=== PATIENT | female | born 1955 | race Caucasian/White ===

== ENCOUNTER 2017-01-16 11:11 | Inpatient (IN) | payer MEDICAID, OTHER ==
[2017-01-16] VITALS (8 sets, daily range): BP systolic 105–129; BP diastolic 55–98; PULSE 63–90; RESP 10–22; Ht 154.9 cm; Wt 62.6 kg
[~2017-01-16] VITALS: Ht 154.9 cm; Wt 62.6 kg
[~2017-01-16 11:11] MED LIST: METO-448; METO100T PO; NALOXONE (0.4 MG/ML) INJ ONE; PENI-36; PENI250S PO; WARF1TAB47; WARF2.5T PO; WARF5TAB72 PO
[2017-01-16] MEDS ORDERED: SOD CHLORIDE 0.9% 1,000 ML IV ONE ×2 (11:30→12:00)
[2017-01-16 11:38] LABS: ADD SCAN DIFF NO
--- NOTE | 2017-01-16 11:41 | RADRPT ---
PROCEDURE: XR Chest. CLINICAL INDICATION: Cardiac arrest. Sepsis. TECHNIQUE: Single frontal view. COMPARISON: None. FINDINGS: The lungs are clear. The heart is enlarged. There is no pleural effusion. There is no pneumothorax. IMPRESSION: 1. Cardiomegaly. 2. Clear lungs. RPTAT: QQ .Catrachito Small MD, MD Date Time Electronically viewed and signed by .Catrachito Small MD, MD on 01/16/2017 11:41 .R/
[2017-01-16 11:45] LABS: ADD UMIC NO; UR BILIRUBIN (Dip) NEGATIVE (NEGATIVE); UR BLOOD (Dip) NEGATIVE (NEGATIVE); UR CLARITY CLEAR (CLEAR); UR COLOR LT. YELLOW (YELLOW); UR GLUCOSE (Dip) NEGATIVE (NEGATIVE); UR KETONES (Dip) NEGATIVE (NEGATIVE); UR LEUKOCYTE ESTERASE (Dip) NEGATIVE (NEGATIVE); UR NITRITE (Dip) NEGATIVE (NEGATIVE); UR TOTAL PROTEIN (Dip) NEGATIVE (NEGATIVE); UR UROBILINOGEN (Dip) 0.2 E.U./dL (0.1-1.0)
[2017-01-16 12:05] LABS: INR 1.62; PROTIME 19.4 Sec (12.2-14.2); PT RATIO 1.5
[2017-01-16 12:06] LABS: PARTIAL THROMBOPLASTIN TIME 24.7 Sec (25.0-35.0)
[2017-01-16 12:13] LABS: ALANINE AMINOTRANSFERASE 16 IU/L (13-69); ALBUMIN/GLOBULIN RATIO 1.51; ALKALINE PHOSPHATASE 72 IU/L (42-121); ANION GAP 20 (8-16); ASPARTATE AMINO TRANSFERASE 35 IU/L (15-46); BILIRUBIN,INDIRECT 0.5 mg/dl (0-1.1); BILIRUBIN,TOTAL 0.5 mg/dl (0.2-1.3); BLOOD UREA NITROGEN 17 mg/dl (7-20); CALCIUM 9.9 mg/dl (8.4-10.2); CARBON DIOXIDE 24 mmol/L (21-31); CHLORIDE 106 mmol/L (97-110); CREATININE 0.93 mg/dl (0.44-1.00); GLUCOSE 95 mg/dl (70-220); POTASSIUM 5.1 mmol/L (3.5-5.1); SODIUM 145 mmol/L (135-144); TOTAL PROTEIN 8.3 g/dl (6.1-8.1)
[2017-01-16 12:25] LABS: ACETAMINOPHEN < 10.0 ug/ml (10.0-30.0); SALICYLATE < 1.0 mg/dl (5.0-30.0); TROPONIN-I < 0.012 ng/ml (0.00-0.12)
[2017-01-16 12:27] LABS: ABNORMAL IP MESSAGE 1; BASOPHIL # 0.1 10^3/ul (0.0-0.1); BASOPHILS % 1.3 % (0.0-2.0); EOSINOPHILS # 0.1 10^3/ul (0.0-0.5); EOSINOPHILS % 1.4 % (0.0-7.0); HEMATOCRIT 39.7 % (37.0-47.0); HEMOGLOBIN 12.7 g/dl (12.0-16.0); LYMPHOCYTES # 1.8 10^3/ul (0.8-2.9); LYMPHOCYTES % 28.3 % (15.0-51.0); MEAN CORPUSCULAR HEMOGLOBIN 26.2 pg (29.0-33.0); MEAN PLATELET VOLUME 13.4 fl (7.4-10.4); MONOCYTE # 0.4 10^3/ul (0.3-0.9); MONOCYTES % 6.6 % (0.0-11.0); NEUTROPHIL # 3.9 10^3/ul (1.6-7.5); NEUTROPHILS % 62.2 % (39.0-77.0); PLATELET COUNT 275 10^3/UL (140-415); RED BLOOD COUNT 4.84 10^6/ul (4.20-5.40); RED CELL DISTRIBUTION WIDTH 16.5 % (11.5-14.5); WHITE BLOOD COUNT 6.3 10^3/ul (4.8-10.8)
[2017-01-16 12:30] LABS: BARBITURATES Negative (NEGATIVE); BENZODIAZEPINES Negative (NEGATIVE); CANNABINOIDS Negative (NEGATIVE); COCAINE Negative (NEGATIVE); OPIATES Negative (NEGATIVE)
--- NOTE | 2017-01-16 13:47 | RADRPT ---
PROCEDURE: CT Brain without contrast. CLINICAL INDICATION: Altered mental status. Stroke. TECHNIQUE: A CT of the brain was performed on a multidetector CT scanner utilizing axial imaging f rom the skull base through the vertex without IV contrast. Multiplanar reformatted images were made . Images were reviewed on a PACS workstation. The CTDIvol is are of 45 mGy and the DLP is 630 mGyc m. COMPARISON: None FINDINGS: There is no intracranial hemorrhage, mass effect, or midline shift. No extra-axial fluid collection is seen. The ventricles and sulci are normal in size and configuration. The density of the brain is normal, and the yip white matter differentiation appears well-preserved. The visualized paranasal sinuses and osseous structures are grossly unremarkable. IMPRESSION: 1. No evidence of acute intracranial pathology. 2. The brain is normal in appearance. .Brando Millan MD, Date Time Electronically viewed and signed by .Brando Millan MD, on 01/16/2017 13:47 .A/
[2017-01-16] MEDS ORDERED: ONDANSETRON 4 MG INJ IV STA (14:15)
[2017-01-16] MEDS ORDERED: ACETAMINOPHEN 325 MG TAB PO PRN (15:30)
[2017-01-16] MEDS ORDERED: ONDANSETRON 4 MG INJ IV PRN (15:30)
[2017-01-16 16:19] LABS: Arterial Base Excess -3.7 mmol/L (-3.0-3); Arterial COHb 0.3 % (0.0-3.0); Arterial HCO3 21.2 mmol/L (22.0-26.0); Arterial MetHb 0.3 % (0.0-1.5); Arterial Total Hemglobin 13.4 g/dl (12.0-18.0); MODE NASAL CANNULA
[2017-01-16] MEDS ORDERED: DEXTROSE 50% 50 ML SYRINGE ONE (16:26)
[2017-01-16] MEDS: DEXTROSE 50% 50 ML SYRINGE IV PRN ×2 (16:36→18:58)
[2017-01-16 16:37] LABS: AADO2 Arterial 121.7 mmHg (7.0-24.0); Allen Test ACCEPTAB; Arterial Base Excess -4.1 mmol/L (-3.0-3); Arterial COHb 0.3 % (0.0-3.0); Arterial Fraction of Oxyhgb 97.7 % (93.0-99.0); Arterial HCO3 20.5 mmol/L (22.0-26.0); Arterial MetHb 0.2 % (0.0-1.5); Arterial Total Hemglobin 13.2 g/dl (12.0-18.0); MODE NASAL CANNULA
[2017-01-16] MEDS ORDERED: SOD CHLORIDE 0.9% 110 ML IV ONE (17:00)
[2017-01-16] MEDS ORDERED: NALOXONE (0.4 MG/ML) INJ IV ONE ×2 (17:00)
[2017-01-16] MEDS ORDERED: SOD CHLORIDE 0.9% 250 ML IV ONE (17:00)
[2017-01-16] MEDS ORDERED: LEVETIRACETAM 1000 MG (PMX) 100 ML IVPB ONE (17:00)
--- NOTE | 2017-01-16 17:29 | ERA ---
ER Documentation Chief Complaint Date/Time DATE: 01/16/17 TIME: 17:17 Chief Complaint pt joan from home found unresponsive and aloc in room by family , HPI This 61-year-old female was brought in by paramedics after being found in her bedroom sleeping but unable to awaken earlier today. Family initiated CPR. They said that she was wincing with each chest compression. They are not sure if she had lost pulses or not. Paramedics arrived the patient unresponsive but in atrial fibrillation. This is a chronic condition for this patient and she is on Coumadin. She does not drink much alcohol according to the who is present as well. No drug use. Nothing like this is never happened to her before. Yesterday she was well and normal according to family. paramedics administered Narcan, 2 doses an ambulance with no response per ROS All systems reviewed and are negative except as per history of present illness. Medications Home Meds Reported Medications Warfarin Sodium* (Coumadin*) 5 Mg Tablet, 5 MG PO Q S,T,W,Th,Sat 06/19/11 Warfarin Sodium* (Coumadin*) 2.5 Mg Tablet, 2.5 MG PO Q WEDNESDAY & Wednesday06/19/11 Metoprolol (Lopressor) 100 Mg Tablet, 100 MG PO BID 06/19/11 Penicillin V Potassium* (Penicillin V K*) 50 Mg/Ml Susp, 250 MG PO BID 06/19/11 Penicillin V Potassium* (Penicillin V K*) 250 Mg Tab 06/18/11 Metoprolol Tartrate* (Lopressor*) 25 Mg Tab 06/18/11 Warfarin Sodium* (Coumadin*) 1 Mg Tablet 06/18/11 Allergies Allergies: Coded Allergies: No Known Allergy (Unverified , 06/18/11) PMhx/Soc Medical and Surgical Hx: pt denies Surgical Hx History of Surgery: Yes (dvt surgery LLE, cardiac angiogram) Anesthesia Reaction: No Hx Neurological Disorder: No Hx Respiratory Disorders: No Hx Cardiac Disorders: Yes (HTN, A FIB) Hx Psychiatric Problems: No Hx Miscellaneous Medical Probl: Yes (A-FIB, HTN, DYSARTHRIA, DVT.) Hx Alcohol Use: No Hx Substance Use: No Hx Tobacco Use: No Smoking Status: Never smoker Physical Exam Vitals Vital Signs Date Time Temp Pulse Resp B/P Pulse Ox O2 Delivery O2 Flow Rate FiO2 01/16/17 14:18 75 17 104/65 100 Nasal Cannula 2.0 01/16/17 13:04 69 17 116/72 100 Nasal Cannula 3.0 01/16/17 12:11 66 15 120/68 100 Non Rebreather 01/16/17 11:40 Non Rebreather 15 01/16/17 11:39 67 19 106/51 100 Non Rebreather 15.0 01/16/17 11:19 75 16 109/91 95 Physical Exam Const: [] No distress Head: Atraumatic Eyes: Normal Conjunctiva, pupils unresponsive, positive corneal reflex ENT: Normal External Ears, Nose and Mouth. Oropharynx within normal limits. Mucous membranes moist. Tympanic membranes without blood or clear fluid Neck: No deformities, no JVD Resp: Clear to auscultation bilaterally Cardio: Irregularly irregular, no murmurs Abd: Soft, no apparent tenderness , non distended. Normal bowel sounds Skin: No petechiae or rashes Back: No midline or flank tenderness Ext: No cyanosis, or edema, right foot and lower leg slightly colder than left foot, all extremities have positive palpable pulses. Neur: Positive gag reflex, does respond to pain. Tries to move arms away when staff starts IV, also does have apparent movement of her legs at least at the toe level, is otherwise unresponsive Result Diagram: 01/16/17 1115 01/16/17 1115 Results 24 hrs Laboratory Tests Test 01/16/17 11:14 01/16/17 11:15 01/16/17 13:15 Urine Color LT. YELLOW Urine Clarity CLEAR Urine pH 6.0 Urine Specific [place] <=1.005 Urine Ketones NEGATIVE Urine Nitrite NEGATIVE Urine Bilirubin NEGATIVE Urine Urobilinogen 0.2 E.U./dL Urine Leukocyte Esterase NEGATIVE Urine Hemoglobin NEGATIVE Urine Glucose NEGATIVE% Urine Total Protein NEGATIVE Urine Opiates Screen Negative Urine Barbiturates Negative Urine Amphetamines Screen Negative Urine Benzodiazepines Screen Negative Urine Cocaine Screen Negative Urine Cannabinoids Negative White Blood Count 6.310^3/ul Red Blood Count 4.8410^6/ul Hemoglobin 12.7g/dl Hematocrit 39.7% Mean Corpuscular Volume 82.0fl Mean Corpuscular Hemoglobin 26.2pg Mean Corpuscular Hemoglobin Concent 32.0g/dl Red Cell Distribution Width 16.5% Platelet Count 69385^3/UL Mean Platelet Volume 13.4fl Neutrophils % 62.2% Lymphocytes % 28.3% Monocytes % 6.6% Eosinophils % 1.4% Basophils % 1.3% Nucleated Red Blood Cells % 0.0/100WBC Neutrophils # 3.910^3/ul Lymphocytes # 1.810^3/ul Monocytes # 0.410^3/ul Eosinophils # 0.110^3/ul Basophils # 0.110^3/ul Nucleated Red Blood Cells # 0.010^3/ul Prothrombin Time 19.4Sec Prothrombin Time Ratio 1.5 INR International Normalized Ratio 1.62 Activated Partial Thromboplast Time 24.7Sec Sodium Level 145mmol/L Potassium Level 5.1mmol/L Chloride Level 106mmol/L Carbon Dioxide Level 24mmol/L Anion Gap 20 Blood Urea Nitrogen 17mg/dl Creatinine 0.93mg/dl Glucose Level 95mg/dl Lactic Acid Level 1.2mmol/L 1.5mmol/L Calcium Level 9.9mg/dl Total Bilirubin 0.5mg/dl Direct Bilirubin 0.00mg/dl Indirect Bilirubin 0.5mg/dl Aspartate Amino Transf (AST/SGOT) 35IU/L Alanine Aminotransferase (ALT/SGPT) 16IU/L Alkaline Phosphatase 72IU/L Troponin I < 0.012ng/ml Total Protein 8.3g/dl Albumin 5.0g/dl Globulin 3.30g/dl Albumin/Globulin Ratio 1.51 Thyroid Stimulating Hormone (TSH) 2.150MIU/L Salicylates Level < 1.0mg/dl Acetaminophen Level < 10.0ug/ml Ethyl Alcohol Level < 10.0mg/dl Current Medications Medications (Trade) Dose Ordered Sig/Fabián Route PRN Reason Start Time Stop Time Status Last Admin Dose Admin Sodium Chloride 1,000 ml @ 1,000 mls/hr Q1H ONCE IV 01/16/17 11:30 01/16/17 12:29 DC 01/16/17 11:49 Sodium Chloride (NS) 1,000 ml @ 1,000 mls/hr Q1H ONCE IV 01/16/17 12:00 01/16/17 12:59 DC 01/16/17 12:41 Ondansetron HCl (Zofran Inj) 4 mg ONCE STAT IV 01/16/17 14:15 01/16/17 14:17 DC Procedures/MDM Altered mental status and patient without clear etiology currently. Possible return of spontaneous circulation versus inappropriate CPR performed. Patient has had completely stable vital signs since arrival to ER. She has essentially all normal labs. Somewhat subtherapeutic INR at 1.62. No signs of any intoxicants. Blood gas without any significant acidosis or alkalosis. I chose not to intubate this patient she does have a positive gag reflex and does seem to have increasing function as she is able to move her head side to side when family is talking to her however no purposeful response yet. I would not like to intubate or not be able to gauge her response. I have ordered a arterial ultrasound of her lower extremity noted to see why it might be called. She has no swelling to indicate possible DVT nor with this possibly affect her mental status which is the primary concerning issue here. Going to admit her for continued continued monitoring, neuro checks, neurological consult. Spoke in the family at bedside several times were very concerned for good reason. Aside from her concerning lack of consciousness she seems very stable otherwise. EKG interpretation: Atrial fibrillation with appropriate ventricular response, no ST or T-wave changes concerning for acute ischemia, normal axis. cornice maker interpretation: Rate controlled atrial fibrillation without any other arrhythmia CT brain interpretation: I see no acute process. I see no hemorrhage, no mass- effect or midline shift, no apparent involving ischemic stroke either. Chest x-ray interpretation: I see no acute process. See no infiltrates, no widened mediastinum, no rib fractures, no pulmonary edema. Critical care time 32 minutes: This includes postresuscitative care and patient altered mental status, careful fluid administration, consideration of endotracheal intubation for airway protection, multiple visits patient's bedside to reassess neurological status, chart reviewed, discussion with admitting doctor and family. This does not include any billable procedures Departure Diagnosis: Primary Impression: Altered level of consciousness Additional Impression: Signs of return of spontaneous circulation Condition: Serious MARCIARUTH PICKARD Jan 16, 2017 17:28
[2017-01-16] MEDS ORDERED: DEXTROSE 5%-0.45% NACL 1,000 ML IV SCH (17:30)
[2017-01-16 18:14] LABS: ALBUMIN 4.4 g/dl (3.3-4.9); ALBUMIN/GLOBULIN RATIO 1.62; BILIRUBIN,INDIRECT 0.5 mg/dl (0-1.1); BILIRUBIN,TOTAL 0.5 mg/dl (0.2-1.3); CALCIUM 8.8 mg/dl (8.4-10.2); CREATININE 0.92 mg/dl (0.44-1.00); MAGNESIUM 1.7 mg/dl (1.7-2.5); PHOSPHORUS 3.7 mg/dl (2.5-4.9); POTASSIUM 4.9 mmol/L (3.5-5.1); TOTAL PROTEIN 7.1 g/dl (6.1-8.1)
--- NOTE | 2017-01-16 20:32 | EN ---
Date/Time of Note Date/Time of Note DATE: 01/16/17 TIME: 20:31 Event Note Medicine Medicine Event Note DOSIMETRIST note DOSIMETRIST was called on patient with a history of hypertension, atrial fibrillation, who was found altered at home by family. The patient is completely unresponsive even to deep sternal rub, however symptoms maintaining her respirations with normal ABG and fairly unremarkable labs. She was admitted for further workup for encephalopathy however upon arriving on the telemetry floor, the nurses were concerned due to her unresponsiveness, she was also found to have unreactive even though equal and non-dilated pupils. A quick assessment confirmed the above findings, so I ordered that patient receive 0.4 mg of Narcan. After the first dose, she seemed to start to grimace with pain. Patient's blood glucose levels were 92, so I also ordered she receive 1 amp of D50. Per the family there was no concern for overdose. She had also received a 0.2 mg dose of Narcan by paramedics prior to admission. Because of the good response to Narcan and glucose, I order she received a second dose of narcan and started a D5 drip. There was no further significant response though patient will now have jerk-like reaction to painful stimuli. I ordered repeat labs including a repeat ABG that came back normal. And based on jerk-like behavior I started patient on intravenous Keppra with probability that this could be secondary to seizures. Due to her continued unresponsive status event and now she was having some jerk like reaction and response to painful stimuli inconsistently, I ordered patient be transferred to the intensive care unit. Of note is that she had gotten a brain scan that was unremarkable. She is being planned for an MRI and MRA of the brain, she is also being planned for EEG. I will follow her to the intensive care unit and continue management while there. Also spoke with the primary admitting MD Dr. Valdovinos and further interventions will be per clinical course. Critical care time has been about 35 minutes. JANIE MATTHEW Jan 16, 2017 20:32
--- NOTE | 2017-01-16 20:56 | RADRPT ---
PROCEDURE: Doppler US right lower extremity arteries. CLINICAL INDICATION: Right leg pain. Cold right leg. TECHNIQUE: Multiple longitudinal and transverse images of the right lower extremity arteries were obtained with yip scale, pulsed Doppler and color Doppler imaging. COMPARISON: No prior studies are available for comparison. FINDINGS: Location Right JSZ023 cm/sec PSFA95 cm/sec [id number] cm/sec DSFA84 cm/sec POP55 cm/sec PTA90 cm/sec DPA65 cm/sec There is normal triphasic flow throughout the right lower extremity arterial system. There is no pl aque or stenosis. The right ankle-brachial index is 1.0 IMPRESSION: 1. Normal right lower extremity arterial Doppler. RPTAT: QQ .Catrachito Small MD, MD Date Time Electronically viewed and signed by .Catrachito Small MD, MD on 01/16/2017 20:55 .R/
[2017-01-16] MEDS ORDERED: VANCOMYCIN IV PER PHARMACY XX SCH (21:30)
--- NOTE | 2017-01-16 21:56 | HP ---
Date/Time of Note Date/Time of Note DATE: 01/16/17 TIME: 20:08 Assessment/Plan VTE Prophylaxis VTE Prophylaxis Intervention: other Lines/Catheters IV Catheter Type (from Nrs): Peripheral IV Urinary Cath still in place: Yes Reason Cath still needed: urinary retention Assessment/Plan Assessment/Plan -Altered level of consciousness -ICU monitoring - NPO -IVF -Neuro consult-Dr. Melo notified -Lactic acid within normal -CT head negative -MRI brain results pending to follow-up -Aspiration precautions -EEG to rule out any seizure activity -Rule out infectious encephalopathy -Infectious disease consult, Dr. Waldrop notified -Vanco per pharmacy -Meropenem 500 mg IV every 6 hours -Acyclovir 800 mg IV 3 times daily -Possible seizure activity -Per neurology -Seizure precautions -Aspiration precautions -Signs of return of spontaneous circulation -Right lower extremity-colder than left lower extremity -Pending arterial study to follow-up -- A FIB- CONTROLLED -Cardiology consult Dr. Armenta notified -Hyperglycemia -Change IV fluid to half-normal saline +20 of KCl at 100 cc/h - Hx dvt - sp IVC filter surgery LLE - SP Cardiac cath - Hypertension-stable - Dysarthria Will hold anticoagulants as of now. will wait for neuro - if patient has to go for Lumbar puncture, cardio recommendations for her afib as well. A.m. labs CBC , CMP, TSH, T4 ordered . Staff to notify Dr. Valdovinos for MRI results further treatment plan depends on patient's clinical course. Plan of care discussed with Dr. Valdovinos, staff, family HPI/ROS Admit Date/Time Admit Date/Time Jan 16, 2017 at 15:19 ROS HPI This is a 61-year-old female with past medical history of A. fib, hypertension, CVA 2- ? unknown deficit, left lower extremity DVT 2 months-status post fasciotomy and IVC filter placement, status post cardiac cath-so Coumadin was on hold , possible risk for stroke is admitted with altered mental status today. Patient was found unresponsive after she was sleeping in her bedroom. Her family was unable to awaken her earlier today and family initiated CPR and called 911. Paramedics found the patient unresponsive and she was in atrial fibrillation which is a chronic condition for this patient and she is on Coumadin. Paramedics administered Narcan, 2 doses an ambulance with no response. denies any alcohol or drug use by patient . Also per family, nothing happened like this in past. From the ER patient was admitted to telemetry where upon admission patient was found unresponsive and a rapid response was called, Patient was transferred to ICU. Per hospitalist as- - ABG within normal. - Narcan 2 was given - blood sugar 90 so D50 1 ampule was given. - Keppra for possible seizure activity. - Right lower extremity was found colder than the left one arterial study pending. - D5 and half NS 100 cc/h - Lees catheter inserted, - O2 3 L per nasal cannula setting 98%. - 2D echo, MRA brain, arterial study results pending Patient is admitting him to ICU under Dr. Valdovinos. During assessment patient is unresponsive, but withdrawal to painful active stimuli. Family at the bedside- and 2 sons-all questions answered. Appropriate consults notified ROS All systems reviewed and are negative except as per history of present illness. Allergies No Known Allergy (Unverified , 06/18/11) Subjective hx not possible: pt non-verbal Respiratory: shortness of breath PMH/Family/Social Past Medical History PMhx/Soc Medical and Surgical Hx: pt denies Surgical Hx History of Surgery: Yes (dvt surgery LLE, cardiac angiogram) Anesthesia Reaction: No Hx Neurological Disorder: No Hx Respiratory Disorders: No Hx Cardiac Disorders: Yes (HTN, A FIB) Hx Psychiatric Problems: No Hx Miscellaneous Medical Probl: Yes (A-FIB, HTN, DYSARTHRIA, DVT.) Hx Alcohol Use: No Hx Substance Use: No Hx Tobacco Use: No Smoking Status: Never smoker Social History Smoking Status: Unknown if ever smoked Exam/Review of Systems Vital Signs Vitals Vital Signs Date Time Temp Pulse Resp B/P Pulse Ox O2 Delivery O2 Flow Rate FiO2 01/16/17 17:45 65 10 117/55 100 Nasal Cannula 3.0 01/16/17 16:53 96.7 Exam Constitutional: non-verbal Respiratory: clear to auscultation, normal air movement Cardiovascular: nl pulses, other (Controlled afib) Gastrointestinal: non-tender, soft Musculoskeletal: other (Right lower extremity colder than left lower extremity arterial study pending to follow-up, ) Extremities: other (No cyanosis, or edema, right foot and lower leg slightly colder than left foot, all extremities have positive palpable pulses.pending arterial study) Neurological: other (but respnsive to pain at times.), unresponsive Labs Result Diagram: 01/16/17 1115 01/16/17 1645 Medications Medications Current Medications Dextrose 50 ml 50 ml NOW PRN IV SEIZURES Last administered on 01/16/17 16:36; Admin Dose 50 ML; Start 01/16/17 at 16:30; Stop 01/16/17 at 23:33 Dextrose/Sodium Chloride (D5-1/2ns) 1,000 ml @ 100 mls/hr Q10H IV Last administered on 01/16/17 18:57; Admin Dose 100 MLS/HR; Start 01/16/17 at 17:30 Procedures Procedures -EKG interpretation: Atrial fibrillation with appropriate ventricular response, no ST or T-wave changes concerning for acute ischemia, normal axis. social secretary interpretation: Rate controlled atrial fibrillation without any other arrhythmia -CT brain interpretation: I see no acute process. I see no hemorrhage, no mass- effect or midline shift, no apparent involving ischemic stroke either. -Chest x-ray interpretation: I see no acute process. See no infiltrates, no widened mediastinum, no rib fractures, no pulmonary edema. -PROCEDURE: Doppler US right lower extremity arteries. IMPRESSION: 1. Normal right lower extremity arterial Doppler. ALEXIS NAJERA Jan 16, 2017 20:19
--- NOTE | 2017-01-16 22:16 | RADRPT ---
PROCEDURE: MRI Brain without contrast. CLINICAL INDICATION: Acute loss of consciousness. TECHNIQUE: MRI of the brain was performed with the following sequences obtained: Sagittal, coronal and axial T1-weighted, axial T2-weighted, axial FLAIR, axial diffusion weighted (with ADC map), and coronal GRE. COMPARISON: CT brain and 01/16/2017. MRI brain 06/19/2011 FINDINGS: Restricted diffusion within the medial thalamic nuclei bilaterally is present with associated hyperi ntense FLAIR signal in these locations ( series 6 image 13 - 14). No hemorrhage, mass effect or mas s lesion is present. The extraaxial spaces are clear of collections. The ventricular system and blood lci are normal for the patient's provided age of 61 years. Scattered areas of hyperintense FLAIR sig nal throughout the subcortical and periventricular white matter are nonspecific but likely reflect s equela of small vessel ischemia Restricted diffusion with hyperintense FLAIR signal is seen within the periaqueductal yip matter sl ightly asymmetric to the left. There is no signal alteration within the caroline or cerebellum. The fo urth ventricle is midline and the craniocervical junction lesion is intact. The area of the sella i s normal. The bony calvarium and skull base are intact. The visualized paranasal sinuses and mastoid air cell s are clear. Physiologic flow voids within the internal carotid and vertebral arteries are maintain ed. RPTAT:HJJR IMPRESSION: 1. Restricted diffusion in the medial thalami and periaqueductal yip raise concern for toxic demyel ination, alcoholic encephalopathy, differential diagnostic possibilities including drug toxicity, en cephalitis and hypoglycemia. 2. Few scattered nonspecific white matter foci of the cerebral hemispheres likely the sequela of ch ronic small vessel ischemic disease. Vasculitis and less likely demyelination are considerations. 3. No evidence of hemorrhage, mass lesion or mass effect. Physician Geronimo Date Time Electronically viewed and signed by Physician Geronimo on 01/16/2017 22:16 /
[2017-01-16] MEDS: 1/2 NS + KCL 20 MEQ 1,000 ML IV SCH (22:35)
[2017-01-16] MEDS: DEXTROSE 5% IVPB SCH (22:36)
[2017-01-16] MEDS: ACYCLOVIR IVPB SCH (22:36)
[2017-01-16] MEDS ORDERED: VANCOMYCIN 1.5 GM in SOD CHLORIDE 0.9% 250 ML IVPB SCH (23:00)
[2017-01-17] VITALS (28 sets, daily range): BP systolic 79–124; BP diastolic 42–84; PULSE 88–132; RESP 20–31
[2017-01-17] MEDS: MEROPENEM 500MG/50 ML (PMX) 50 ML IVPB SCH ×2 (00:19→06:26)
[2017-01-17] MEDS: METOPROLOL 5 MG INJ IV PRN ×3 (01:19→23:25)
[2017-01-17] MEDS: DEXTROSE 5% IVPB SCH (05:11)
[2017-01-17] MEDS: ACYCLOVIR IVPB SCH (05:11)
[2017-01-17 05:53] LABS: ADD SCAN DIFF NO
[2017-01-17 06:05] LABS: BASOPHIL # 0.1 10^3/ul (0.0-0.1); BASOPHILS % 0.3 % (0.0-2.0); HEMATOCRIT 41.2 % (37.0-47.0); HEMOGLOBIN 12.9 g/dl (12.0-16.0); LYMPHOCYTES # 0.7 10^3/ul (0.8-2.9); LYMPHOCYTES % 3.7 % (15.0-51.0); MEAN CORPUSCULAR HEMOGLOBIN 25.9 pg (29.0-33.0); MEAN CORPUSCULAR HGB CONC 31.3 g/dl (32.0-37.0); MEAN CORPUSCULAR VOLUME 82.7 fl (82.0-101.0); MEAN PLATELET VOLUME 12.8 fl (7.4-10.4); MONOCYTE # 0.6 10^3/ul (0.3-0.9); NEUTROPHIL # 17.3 10^3/ul (1.6-7.5); NEUTROPHILS % 92.5 % (39.0-77.0); PLATELET COUNT 342 10^3/UL (140-415); RED BLOOD COUNT 4.98 10^6/ul (4.20-5.40); RED CELL DISTRIBUTION WIDTH 16.5 % (11.5-14.5); WHITE BLOOD COUNT 18.7 10^3/ul (4.8-10.8)
[2017-01-17 06:11] LABS: ALBUMIN 4.5 g/dl (3.3-4.9); ALBUMIN/GLOBULIN RATIO 1.5; BILIRUBIN,INDIRECT 0.7 mg/dl (0-1.1); BILIRUBIN,TOTAL 0.7 mg/dl (0.2-1.3); CALCIUM 9.8 mg/dl (8.4-10.2); CREATININE 1.06 mg/dl (0.44-1.00); MAGNESIUM 1.5 mg/dl (1.7-2.5); POTASSIUM 3.6 mmol/L (3.5-5.1); TOTAL PROTEIN 7.5 g/dl (6.1-8.1)
[2017-01-17 06:13] LABS: INR 1.82; PROTIME 21.2 Sec (12.2-14.2); PT RATIO 1.7
[2017-01-17 06:14] LABS: PARTIAL THROMBOPLASTIN TIME 33.6 Sec (25.0-35.0)
[2017-01-17] MEDS: 1/2 NS + KCL 20 MEQ 1,000 ML IV SCH ×2 (07:30→17:30)
[2017-01-17] MEDS: LEVETIRACETAM 500 MG (PMX) 100 ML IVPB SCH ×2 (09:15→20:41)
--- NOTE | 2017-01-17 09:30 | CONS ---
Date/Time of Note Date/Time of Note DATE: 01/17/17 TIME: 09:30 Consultation Date/Type/Reason Admit Date/Time Jan 16, 2017 at 15:19 Initial Consult Date Exam/Review of Systems Vital Signs Vitals Vital Signs Date Time Temp Pulse Resp B/P Pulse Ox O2 Delivery O2 Flow Rate FiO2 01/17/17 09:00 101 27 92/57 95 Room Air 01/17/17 08:00 99.3 01/17/17 04:08 2.0 Intake and Output 01/16/17 01/16/17 01/17/17 15:00 23:00 07:00 Intake Total 1200 ml Output Total 1200 ml 795 ml Balance -1200 ml 405 ml Results Result Diagram: 01/17/17 0500 01/17/17 0500 Results 24 hrs Laboratory Tests Test 01/16/17 11:14 01/16/17 11:15 01/16/17 13:15 01/16/17 15:22 Urine Color LT. YELLOW Urine Clarity CLEAR Urine pH 6.0 Urine Specific [place] <=1.005 L Urine Ketones NEGATIVE Urine Nitrite NEGATIVE Urine Bilirubin NEGATIVE Urine Urobilinogen 0.2 E.U./dL Urine Leukocyte Esterase NEGATIVE Urine Hemoglobin NEGATIVE Urine Glucose NEGATIVE Urine Total Protein NEGATIVE Urine Opiates Screen Negative Urine Barbiturates Negative Urine Amphetamines Screen Negative Urine Benzodiazepines Screen Negative Urine Cocaine Screen Negative Urine Cannabinoids Negative White Blood Count 6.3 Red Blood Count 4.84 Hemoglobin 12.7 Hematocrit 39.7 Mean Corpuscular Volume 82.0 Mean Corpuscular Hemoglobin 26.2 L Mean Corpuscular Hemoglobin Concent 32.0 Red Cell Distribution Width 16.5 H Platelet Count 275 Mean Platelet Volume 13.4 H Neutrophils % 62.2 Lymphocytes % 28.3 Monocytes % 6.6 Eosinophils % 1.4 Basophils % 1.3 Nucleated Red Blood Cells % 0.0 Neutrophils # 3.9 Lymphocytes # 1.8 Monocytes # 0.4 Eosinophils # 0.1 Basophils # 0.1 Nucleated Red Blood Cells # 0.0 Prothrombin Time 19.4 H Prothrombin Time Ratio 1.5 INR International Normalized Ratio 1.62 Activated Partial Thromboplast Time 24.7 L Sodium Level 145 H Potassium Level 5.1 Chloride Level 106 Carbon Dioxide Level 24 Anion Gap 20 H Blood Urea Nitrogen 17 Creatinine 0.93 Glucose Level 95 Lactic Acid Level 1.2 1.5 Calcium Level 9.9 Total Bilirubin 0.5 Direct Bilirubin 0.00 Indirect Bilirubin 0.5 Aspartate Amino Transf (AST/SGOT) 35 Alanine Aminotransferase (ALT/SGPT) 16 Alkaline Phosphatase 72 Troponin I < 0.012 Total Protein 8.3 H Albumin 5.0 H Globulin 3.30 H Albumin/Globulin Ratio 1.51 Thyroid Stimulating Hormone (TSH) 2.150 Salicylates Level < 1.0 L Acetaminophen Level < 10.0 L Ethyl Alcohol Level < 10.0 Blood Gas Specimen Source Blood arterial Arterial Blood Date Drawn 01/16/2017 4:07:22 PM Arterial Blood pH (Temp corrected) 7.362 Arterial Blood pCO2 (Temp correct) 38.3 Arterial Blood pO2 (Temp corrected) 145.1 H Arterial Blood HCO3 21.2 L Arterial Blood Base Excess -3.7 L Arterial Blood Oxygen Saturation 98.6 H Sivakumar Test N/A Arterial Blood Gas Puncture Site Right Brachial Arterial Blood Carboxyhemoglobin 0.3 Arterial Blood Methemoglobin 0.3 Oxyhemoglobin Percent 98.0 Total Hemoglobin 13.4 Blood Gas Temperature 37.0 Blood Gas Modality NASAL CANNULA FiO2 24.0 Blood Gas Critical Value Read Back DR. KENNEDY Blood Gas Notified Whom Kirk Blood Gas Notified Time 01/16/2017 4:19:17 PM Test 01/16/17 15:55 01/16/17 16:20 01/16/17 16:27 01/16/17 16:45 Lactic Acid Level 2.3 *H 1.3 Bedside Glucose 92 Blood Gas Specimen Source Blood arterial Arterial Blood Date Drawn 01/16/2017 4:28:40 PM Arterial Blood pH (Temp corrected) 7.404 Arterial Blood pCO2 (Temp correct) 32.8 L Arterial Blood pO2 (Temp corrected) 120.7 H Arterial Blood HCO3 20.5 L Arterial Blood Base Excess -4.1 L Arterial Blood Oxygen Saturation 98.2 H Sivakumar Test ACCEPTAB Arterial Blood Gas Puncture Site Right Radial Arterial Blood Carboxyhemoglobin 0.3 Arterial Blood Methemoglobin 0.2 Blood Gas A-a O2 Differential 121.7 H Oxyhemoglobin Percent 97.7 Total Hemoglobin 13.2 Blood Gas Temperature 34.8 Blood Gas Modality NASAL CANNULA FiO2 39.0 Blood Gas Notified Whom Blood Gas Notified Time 01/16/2017 4:37:11 PM Sodium Level 141 Potassium Level 4.9 Chloride Level 109 Carbon Dioxide Level 21 Anion Gap 16 Blood Urea Nitrogen 14 Creatinine 0.92 Glucose Level 233 #H Calcium Level 8.8 Phosphorus Level 3.7 Magnesium Level 1.7 Total Bilirubin 0.5 Direct Bilirubin 0.00 Indirect Bilirubin 0.5 Aspartate Amino Transf (AST/SGOT) 29 Alanine Aminotransferase (ALT/SGPT) 21 Alkaline Phosphatase 62 Ammonia < 9 L Total Protein 7.1 # Albumin 4.4 Globulin 2.70 Albumin/Globulin Ratio 1.62 Test 01/16/17 22:13 01/17/17 04:47 01/17/17 05:00 Thyroid Stimulating Hormone (TSH) 0.652 Free Thyroxine 1.56 Bedside Glucose 111 White Blood Count 18.7 #H Red Blood Count 4.98 Hemoglobin 12.9 Hematocrit 41.2 Mean Corpuscular Volume 82.7 Mean Corpuscular Hemoglobin 25.9 L Mean Corpuscular Hemoglobin Concent 31.3 L Red Cell Distribution Width 16.5 H Platelet Count 342 # Mean Platelet Volume 12.8 H Neutrophils % 92.5 H Lymphocytes % 3.7 L Monocytes % 3.0 Eosinophils % 0.0 Basophils % 0.3 Nucleated Red Blood Cells % 0.0 Neutrophils # 17.3 H Lymphocytes # 0.7 L Monocytes # 0.6 Eosinophils # 0.0 Basophils # 0.1 Nucleated Red Blood Cells # 0.0 Erythrocyte Sedimentation Rate 14 Prothrombin Time 21.2 H Prothrombin Time Ratio 1.7 INR International Normalized Ratio 1.82 Activated Partial Thromboplast Time 33.6 Sodium Level 144 Potassium Level 3.6 Chloride Level 105 Carbon Dioxide Level 23 Anion Gap 20 H Blood Urea Nitrogen 11 Creatinine 1.06 H Glucose Level 110 # Hemoglobin A1c 6.3 H Calcium Level 9.8 Magnesium Level 1.5 L Total Bilirubin 0.7 Direct Bilirubin 0.00 Indirect Bilirubin 0.7 Aspartate Amino Transf (AST/SGOT) 47 H Alanine Aminotransferase (ALT/SGPT) 35 Alkaline Phosphatase 81 Total Protein 7.5 Albumin 4.5 Globulin 3.00 Albumin/Globulin Ratio 1.50 Medications Medications Current Medications Levetiracetam 100 ml @ 400 mls/hr Q12 IVPB Last administered on 01/17/17 09: 15; Admin Dose 400 MLS/HR; Start 01/17/17 at 09:00 Potassium Chloride/Sodium Chloride (1/2 NS + KCl 20 Meq) 1,000 ml @ 100 mls/hr Q10H IV Last administered on 01/16/17 22:35; Admin Dose 100 MLS/HR; Start at 21:30 Metoprolol Tartrate 5 mg 5 mg Q4 PRN IV NOTE Last administered on 01/17/17 01: 19; Admin Dose 5 MG; Start 01/17/17 at 00:30 Vancomycin HCl/ Sodium Chloride (Vancocin/NS) 150 ml @ 75 mls/hr Q12H IVPB ; Start 01/17/17 at 11:00 Miscellaneous Information VANCOMYCIN TROUGH AT 1000 ONCE ONCE XX ; Start 01/18/17 at 10:00; Stop 01/18/17 at 10:01 Acyclovir 500 mg/ Sodium Chloride 100 ml @ 100 mls/hr Q8 IVPB ; Start 01/17/17 at 14:00 Meropenem/Sodium Chloride (Merrem/NS) 100 ml @ 200 mls/hr Q12 IVPB ; Start at 12:00 SHELBY SHUKLA MD Jan 17, 2017 09:30
--- NOTE | 2017-01-17 09:37 | CONS ---
Date/Time of Note Date/Time of Note DATE: 01/17/17 TIME: 09:30 Assessment/Plan Assessment/Plan Chief Complaint/Hosp Course 1. Lactic acidosis likely to emoblic cva/hypoxic injury 2. SIRS 3. DM 4. Hx of CVA 5. Afib on anticoag 6. Hx of DVT r: - consider LP- will d/w primary team--glucose, protein, gstain/cx, hsv pcr, [place] virus pcr, cocci, crypto, hold addl. fluid - HIV screen - cocci, crypto, histo - f/u echo result -f/u siegel cx -continue empiric abx for now -serial lactic acid and procalc Problems: Consultation Date/Type/Reason Admit Date/Time Jan 16, 2017 at 15:19 Date of Consultation: Jan 17, 2017 Type of Consultation: id Reason for Consultation abx recs Hx of Present Illness 61 yo female with pmh of Afib on coumadin, htn, apparent cva, dvt, left leg infection s/p apparent fasciotomy at [facility], IV filter, admitted with ams, lactic acidosis and MRI suggesting acute insult. She was apparently fine day prior to admit. She was found unresponsive by family and underwent cpr.Echocardiogram is pending. She has been transitioned from coumadin to lovenox per nursing. Family denies recent travel, sick contacts or other unusual exposure Social History Smoking Status: Unknown if ever smoked Exam/Review of Systems Vital Signs Vitals Vital Signs Date Time Temp Pulse Resp B/P Pulse Ox O2 Delivery O2 Flow Rate FiO2 01/17/17 09:00 101 27 92/57 95 Room Air 01/17/17 08:00 99.3 01/17/17 04:08 2.0 Intake and Output 01/16/17 01/16/17 01/17/17 15:00 23:00 07:00 Intake Total 1200 ml Output Total 1200 ml 795 ml Balance -1200 ml 405 ml Exam Constitutional: non-verbal ENMT: nl external ears & nose, nl lips & teeth, nl nasal mucosa & septum Respiratory: clear to auscultation Cardiovascular: regular rate and rhythm Gastrointestinal: soft Results Result Diagram: 01/17/17 0500 01/17/17 0500 Results 24 hrs Laboratory Tests Test 01/16/17 11:14 01/16/17 11:15 01/16/17 13:15 01/16/17 15:22 Urine Color LT. YELLOW Urine Clarity CLEAR Urine pH 6.0 Urine Specific [place] <=1.005 L Urine Ketones NEGATIVE Urine Nitrite NEGATIVE Urine Bilirubin NEGATIVE Urine Urobilinogen 0.2 E.U./dL Urine Leukocyte Esterase NEGATIVE Urine Hemoglobin NEGATIVE Urine Glucose NEGATIVE Urine Total Protein NEGATIVE Urine Opiates Screen Negative Urine Barbiturates Negative Urine Amphetamines Screen Negative Urine Benzodiazepines Screen Negative Urine Cocaine Screen Negative Urine Cannabinoids Negative White Blood Count 6.3 Red Blood Count 4.84 Hemoglobin 12.7 Hematocrit 39.7 Mean Corpuscular Volume 82.0 Mean Corpuscular Hemoglobin 26.2 L Mean Corpuscular Hemoglobin Concent 32.0 Red Cell Distribution Width 16.5 H Platelet Count 275 Mean Platelet Volume 13.4 H Neutrophils % 62.2 Lymphocytes % 28.3 Monocytes % 6.6 Eosinophils % 1.4 Basophils % 1.3 Nucleated Red Blood Cells % 0.0 Neutrophils # 3.9 Lymphocytes # 1.8 Monocytes # 0.4 Eosinophils # 0.1 Basophils # 0.1 Nucleated Red Blood Cells # 0.0 Prothrombin Time 19.4 H Prothrombin Time Ratio 1.5 INR International Normalized Ratio 1.62 Activated Partial Thromboplast Time 24.7 L Sodium Level 145 H Potassium Level 5.1 Chloride Level 106 Carbon Dioxide Level 24 Anion Gap 20 H Blood Urea Nitrogen 17 Creatinine 0.93 Glucose Level 95 Lactic Acid Level 1.2 1.5 Calcium Level 9.9 Total Bilirubin 0.5 Direct Bilirubin 0.00 Indirect Bilirubin 0.5 Aspartate Amino Transf (AST/SGOT) 35 Alanine Aminotransferase (ALT/SGPT) 16 Alkaline Phosphatase 72 Troponin I < 0.012 Total Protein 8.3 H Albumin 5.0 H Globulin 3.30 H Albumin/Globulin Ratio 1.51 Thyroid Stimulating Hormone (TSH) 2.150 Salicylates Level < 1.0 L Acetaminophen Level < 10.0 L Ethyl Alcohol Level < 10.0 Blood Gas Specimen Source Blood arterial Arterial Blood Date Drawn 01/16/2017 4:07:22 PM Arterial Blood pH (Temp corrected) 7.362 Arterial Blood pCO2 (Temp correct) 38.3 Arterial Blood pO2 (Temp corrected) 145.1 H Arterial Blood HCO3 21.2 L Arterial Blood Base Excess -3.7 L Arterial Blood Oxygen Saturation 98.6 H Sivakumar Test N/A Arterial Blood Gas Puncture Site Right Brachial Arterial Blood Carboxyhemoglobin 0.3 Arterial Blood Methemoglobin 0.3 Oxyhemoglobin Percent 98.0 Total Hemoglobin 13.4 Blood Gas Temperature 37.0 Blood Gas Modality NASAL CANNULA FiO2 24.0 Blood Gas Critical Value Read Back DR. KENNEDY Blood Gas Notified Whom Kirk Blood Gas Notified Time 01/16/2017 4:19:17 PM Test 01/16/17 15:55 01/16/17 16:20 01/16/17 16:27 01/16/17 16:45 Lactic Acid Level 2.3 *H 1.3 Bedside Glucose 92 Blood Gas Specimen Source Blood arterial Arterial Blood Date Drawn 01/16/2017 4:28:40 PM Arterial Blood pH (Temp corrected) 7.404 Arterial Blood pCO2 (Temp correct) 32.8 L Arterial Blood pO2 (Temp corrected) 120.7 H Arterial Blood HCO3 20.5 L Arterial Blood Base Excess -4.1 L Arterial Blood Oxygen Saturation 98.2 H Sivakumar Test ACCEPTAB Arterial Blood Gas Puncture Site Right Radial Arterial Blood Carboxyhemoglobin 0.3 Arterial Blood Methemoglobin 0.2 Blood Gas A-a O2 Differential 121.7 H Oxyhemoglobin Percent 97.7 Total Hemoglobin 13.2 Blood Gas Temperature 34.8 Blood Gas Modality NASAL CANNULA FiO2 39.0 Blood Gas Notified Whom Blood Gas Notified Time 01/16/2017 4:37:11 PM Sodium Level 141 Potassium Level 4.9 Chloride Level 109 Carbon Dioxide Level 21 Anion Gap 16 Blood Urea Nitrogen 14 Creatinine 0.92 Glucose Level 233 #H Calcium Level 8.8 Phosphorus Level 3.7 Magnesium Level 1.7 Total Bilirubin 0.5 Direct Bilirubin 0.00 Indirect Bilirubin 0.5 Aspartate Amino Transf (AST/SGOT) 29 Alanine Aminotransferase (ALT/SGPT) 21 Alkaline Phosphatase 62 Ammonia < 9 L Total Protein 7.1 # Albumin 4.4 Globulin 2.70 Albumin/Globulin Ratio 1.62 Test 01/16/17 22:13 01/17/17 04:47 01/17/17 05:00 Thyroid Stimulating Hormone (TSH) 0.652 Free Thyroxine 1.56 Bedside Glucose 111 White Blood Count 18.7 #H Red Blood Count 4.98 Hemoglobin 12.9 Hematocrit 41.2 Mean Corpuscular Volume 82.7 Mean Corpuscular Hemoglobin 25.9 L Mean Corpuscular Hemoglobin Concent 31.3 L Red Cell Distribution Width 16.5 H Platelet Count 342 # Mean Platelet Volume 12.8 H Neutrophils % 92.5 H Lymphocytes % 3.7 L Monocytes % 3.0 Eosinophils % 0.0 Basophils % 0.3 Nucleated Red Blood Cells % 0.0 Neutrophils # 17.3 H Lymphocytes # 0.7 L Monocytes # 0.6 Eosinophils # 0.0 Basophils # 0.1 Nucleated Red Blood Cells # 0.0 Erythrocyte Sedimentation Rate 14 Prothrombin Time 21.2 H Prothrombin Time Ratio 1.7 INR International Normalized Ratio 1.82 Activated Partial Thromboplast Time 33.6 Sodium Level 144 Potassium Level 3.6 Chloride Level 105 Carbon Dioxide Level 23 Anion Gap 20 H Blood Urea Nitrogen 11 Creatinine 1.06 H Glucose Level 110 # Hemoglobin A1c 6.3 H Calcium Level 9.8 Magnesium Level 1.5 L Total Bilirubin 0.7 Direct Bilirubin 0.00 Indirect Bilirubin 0.7 Aspartate Amino Transf (AST/SGOT) 47 H Alanine Aminotransferase (ALT/SGPT) 35 Alkaline Phosphatase 81 Total Protein 7.5 Albumin 4.5 Globulin 3.00 Albumin/Globulin Ratio 1.50 Medications Medications Current Medications Levetiracetam 100 ml @ 400 mls/hr Q12 IVPB Last administered on 01/17/17 09: 15; Admin Dose 400 MLS/HR; Start 01/17/17 at 09:00 Potassium Chloride/Sodium Chloride (1/2 NS + KCl 20 Meq) 1,000 ml @ 100 mls/hr Q10H IV Last administered on 01/16/17 22:35; Admin Dose 100 MLS/HR; Start at 21:30 Metoprolol Tartrate 5 mg 5 mg Q4 PRN IV NOTE Last administered on 01/17/17 01: 19; Admin Dose 5 MG; Start 01/17/17 at 00:30 Vancomycin HCl/ Sodium Chloride (Vancocin/NS) 150 ml @ 75 mls/hr Q12H IVPB ; Start 01/17/17 at 11:00 Miscellaneous Information VANCOMYCIN TROUGH AT 1000 ONCE ONCE XX ; Start 01/18/17 at 10:00; Stop 01/18/17 at 10:01 Acyclovir 500 mg/ Sodium Chloride 100 ml @ 100 mls/hr Q8 IVPB ; Start 01/17/17 at 14:00 Meropenem/Sodium Chloride (Merrem/NS) 100 ml @ 200 mls/hr Q12 IVPB ; Start at 12:00 SHELBY SHUKLA MD Jan 17, 2017 09:37
--- NOTE | 2017-01-17 09:57 | PN ---
Date/Time of Note Date/Time of Note DATE: 01/17/17 TIME: 09:41 Assessment/Plan VTE Prophylaxis VTE Prophylaxis Intervention: other Lines/Catheters IV Catheter Type (from Nrsg): Peripheral IV Urinary Cath still in place: Yes Reason Cath still needed: urinary retention Assessment/Plan Assessment/Plan - Elevated Hgb A1C - GLYCEMIC CONTROL- NovoLog mild algorithm - line cook consult -Altered level of consciousness -ICU monitoring, TSH, T4 wnl -MRI- -Neuro consult-Dr. Melo notified -Lactic acid within normal -CT head negative -MRI brain results pending to follow-up -Aspiration precautions -EEG to rule out any seizure activity -Rule out infectious encephalopathy- Blood culture showed gm +ve cocci in clusters.possible contamination. will repeat BC X2- FU - per Dr Bosch-Infectious disease consult -Vanco per pharmacy -Meropenem 500 mg IV every 6 hours -Acyclovir 800 mg IV 3 times daily -Possible seizure activity -Per neurology-pending evaluation -Seizure precautions -Aspiration precautions -Signs of return of spontaneous circulation -Right lower extremity-colder than left lower extremity -Pending arterial study to follow-up -- A FIB- CONTROLLED -per Cardiology consult Dr. Armenta -Anticoagulants per cardiology -Hyperglycemia -Change IV fluid to half-normal saline +20 of KCl at 100 cc/h -Hx dvt - sp IVC filter surgery LLE - SP Cardiac cath - Hypertension - DYSARTHRIA Plan of care discussed with Dr. Valdovinos, staff, family Subjective 24 Hr Interval Summary Free Text/Dictation remains on RA- stable, tachycardic, afebrile, BC showed gm pos cocci in clusters - will repeat BC. DW staff neurology evaluation pending. Anticoagulants per cardiology. Subjective hx not possible: pt non-verbal Constitutional: requiring IVF, requiring O2 Exam/Review of Systems Vital Signs Vitals Vital Signs Date Time Temp Pulse Resp B/P Pulse Ox O2 Delivery O2 Flow Rate FiO2 01/17/17 09:00 101 27 92/57 95 Room Air 01/17/17 08:00 99.3 01/17/17 04:08 2.0 Intake and Output 01/16/17 01/16/17 01/17/17 14:59 22:59 06:59 Intake Total 1200 ml Output Total 1200 ml 750 ml Balance -1200 ml 450 ml Exam Constitutional: non-verbal Respiratory: clear to auscultation, normal air movement, other (on RA- sable) Cardiovascular: nl pulses, other (afib controlled) Gastrointestinal: non-tender, soft Musculoskeletal: other Neurological: unresponsive Results Result Diagram: 01/17/17 0500 01/17/17 0500 Results 24 hrs Laboratory Tests Test 01/16/17 11:14 01/16/17 11:15 01/16/17 13:15 01/16/17 15:22 Urine Color LT. YELLOW Urine Clarity CLEAR Urine pH 6.0 Urine Specific [place] <=1.005 L Urine Ketones NEGATIVE Urine Nitrite NEGATIVE Urine Bilirubin NEGATIVE Urine Urobilinogen 0.2 E.U./dL Urine Leukocyte Esterase NEGATIVE Urine Hemoglobin NEGATIVE Urine Glucose NEGATIVE Urine Total Protein NEGATIVE Urine Opiates Screen Negative Urine Barbiturates Negative Urine Amphetamines Screen Negative Urine Benzodiazepines Screen Negative Urine Cocaine Screen Negative Urine Cannabinoids Negative White Blood Count 6.3 Red Blood Count 4.84 Hemoglobin 12.7 Hematocrit 39.7 Mean Corpuscular Volume 82.0 Mean Corpuscular Hemoglobin 26.2 L Mean Corpuscular Hemoglobin Concent 32.0 Red Cell Distribution Width 16.5 H Platelet Count 275 Mean Platelet Volume 13.4 H Neutrophils % 62.2 Lymphocytes % 28.3 Monocytes % 6.6 Eosinophils % 1.4 Basophils % 1.3 Nucleated Red Blood Cells % 0.0 Neutrophils # 3.9 Lymphocytes # 1.8 Monocytes # 0.4 Eosinophils # 0.1 Basophils # 0.1 Nucleated Red Blood Cells # 0.0 Prothrombin Time 19.4 H Prothrombin Time Ratio 1.5 INR International Normalized Ratio 1.62 Activated Partial Thromboplast Time 24.7 L Sodium Level 145 H Potassium Level 5.1 Chloride Level 106 Carbon Dioxide Level 24 Anion Gap 20 H Blood Urea Nitrogen 17 Creatinine 0.93 Glucose Level 95 Lactic Acid Level 1.2 1.5 Calcium Level 9.9 Total Bilirubin 0.5 Direct Bilirubin 0.00 Indirect Bilirubin 0.5 Aspartate Amino Transf (AST/SGOT) 35 Alanine Aminotransferase (ALT/SGPT) 16 Alkaline Phosphatase 72 Troponin I < 0.012 Total Protein 8.3 H Albumin 5.0 H Globulin 3.30 H Albumin/Globulin Ratio 1.51 Thyroid Stimulating Hormone (TSH) 2.150 Salicylates Level < 1.0 L Acetaminophen Level < 10.0 L Ethyl Alcohol Level < 10.0 Blood Gas Specimen Source Blood arterial Arterial Blood Date Drawn 01/16/2017 4:07:22 PM Arterial Blood pH (Temp corrected) 7.362 Arterial Blood pCO2 (Temp correct) 38.3 Arterial Blood pO2 (Temp corrected) 145.1 H Arterial Blood HCO3 21.2 L Arterial Blood Base Excess -3.7 L Arterial Blood Oxygen Saturation 98.6 H Sivakumar Test N/A Arterial Blood Gas Puncture Site Right Brachial Arterial Blood Carboxyhemoglobin 0.3 Arterial Blood Methemoglobin 0.3 Oxyhemoglobin Percent 98.0 Total Hemoglobin 13.4 Blood Gas Temperature 37.0 Blood Gas Modality NASAL CANNULA FiO2 24.0 Blood Gas Critical Value Read Back DR. KENNEDY Blood Gas Notified Whom Kirk Blood Gas Notified Time 01/16/2017 4:19:17 PM Test 01/16/17 15:55 01/16/17 16:20 01/16/17 16:27 01/16/17 16:45 Lactic Acid Level 2.3 *H 1.3 Bedside Glucose 92 Blood Gas Specimen Source Blood arterial Arterial Blood Date Drawn 01/16/2017 4:28:40 PM Arterial Blood pH (Temp corrected) 7.404 Arterial Blood pCO2 (Temp correct) 32.8 L Arterial Blood pO2 (Temp corrected) 120.7 H Arterial Blood HCO3 20.5 L Arterial Blood Base Excess -4.1 L Arterial Blood Oxygen Saturation 98.2 H Sivakumar Test ACCEPTAB Arterial Blood Gas Puncture Site Right Radial Arterial Blood Carboxyhemoglobin 0.3 Arterial Blood Methemoglobin 0.2 Blood Gas A-a O2 Differential 121.7 H Oxyhemoglobin Percent 97.7 Total Hemoglobin 13.2 Blood Gas Temperature 34.8 Blood Gas Modality NASAL CANNULA FiO2 39.0 Blood Gas Notified Whom Blood Gas Notified Time 01/16/2017 4:37:11 PM Sodium Level 141 Potassium Level 4.9 Chloride Level 109 Carbon Dioxide Level 21 Anion Gap 16 Blood Urea Nitrogen 14 Creatinine 0.92 Glucose Level 233 #H Calcium Level 8.8 Phosphorus Level 3.7 Magnesium Level 1.7 Total Bilirubin 0.5 Direct Bilirubin 0.00 Indirect Bilirubin 0.5 Aspartate Amino Transf (AST/SGOT) 29 Alanine Aminotransferase (ALT/SGPT) 21 Alkaline Phosphatase 62 Ammonia < 9 L Total Protein 7.1 # Albumin 4.4 Globulin 2.70 Albumin/Globulin Ratio 1.62 Test 01/16/17 22:13 01/17/17 04:47 01/17/17 05:00 Thyroid Stimulating Hormone (TSH) 0.652 Free Thyroxine 1.56 Bedside Glucose 111 White Blood Count 18.7 #H Red Blood Count 4.98 Hemoglobin 12.9 Hematocrit 41.2 Mean Corpuscular Volume 82.7 Mean Corpuscular Hemoglobin 25.9 L Mean Corpuscular Hemoglobin Concent 31.3 L Red Cell Distribution Width 16.5 H Platelet Count 342 # Mean Platelet Volume 12.8 H Neutrophils % 92.5 H Lymphocytes % 3.7 L Monocytes % 3.0 Eosinophils % 0.0 Basophils % 0.3 Nucleated Red Blood Cells % 0.0 Neutrophils # 17.3 H Lymphocytes # 0.7 L Monocytes # 0.6 Eosinophils # 0.0 Basophils # 0.1 Nucleated Red Blood Cells # 0.0 Erythrocyte Sedimentation Rate 14 Prothrombin Time 21.2 H Prothrombin Time Ratio 1.7 INR International Normalized Ratio 1.82 Activated Partial Thromboplast Time 33.6 Sodium Level 144 Potassium Level 3.6 Chloride Level 105 Carbon Dioxide Level 23 Anion Gap 20 H Blood Urea Nitrogen 11 Creatinine 1.06 H Glucose Level 110 # Hemoglobin A1c 6.3 H Calcium Level 9.8 Magnesium Level 1.5 L Total Bilirubin 0.7 Direct Bilirubin 0.00 Indirect Bilirubin 0.7 Aspartate Amino Transf (AST/SGOT) 47 H Alanine Aminotransferase (ALT/SGPT) 35 Alkaline Phosphatase 81 Total Protein 7.5 Albumin 4.5 Globulin 3.00 Albumin/Globulin Ratio 1.50 Medications Medications Current Medications Levetiracetam 100 ml @ 400 mls/hr Q12 IVPB Last administered on 01/17/17 09: 15; Admin Dose 400 MLS/HR; Start 01/17/17 at 09:00 Potassium Chloride/Sodium Chloride (1/2 NS + KCl 20 Meq) 1,000 ml @ 100 mls/hr Q10H IV Last administered on 01/16/17 22:35; Admin Dose 100 MLS/HR; Start at 21:30 Metoprolol Tartrate 5 mg 5 mg Q4 PRN IV NOTE Last administered on 01/17/17 01: 19; Admin Dose 5 MG; Start 01/17/17 at 00:30 Vancomycin HCl/ Sodium Chloride (Vancocin/NS) 150 ml @ 75 mls/hr Q12H IVPB ; Start 01/17/17 at 11:00 Miscellaneous Information VANCOMYCIN TROUGH AT 1000 ONCE ONCE XX ; Start 01/18/17 at 10:00; Stop 01/18/17 at 10:01 Acyclovir 500 mg/ Sodium Chloride 100 ml @ 100 mls/hr Q8 IVPB ; Start 01/17/17 at 14:00 Meropenem/Sodium Chloride (Merrem/NS) 100 ml @ 200 mls/hr Q12 IVPB ; Start at 12:00 ALEXIS NAJERA Jan 17, 2017 09:51
[2017-01-17] MEDS ORDERED: GLUCOSE GEL 15 GRAM TUBE PO PRN ×2 (10:00)
[2017-01-17] MEDS ORDERED: MAGNESIUM SULFATE 2 GM/50 ML 50 ML IVPB ONE (10:00)
[2017-01-17] MEDS ORDERED: DEXTROSE 50% 50 ML SYRINGE IV PRN ×2 (10:00)
[2017-01-17] MEDS ORDERED: GLUCOSE GEL 15 GRAM TUBE BUCCAL PRN (10:00)
[2017-01-17] MEDS ORDERED: GLUCAGON 1 MG INJ IM PRN (10:00)
[2017-01-17] MEDS: VANCOMYCIN 750 MG in SOD CHLORIDE 0.9% 150 ML IVPB SCH ×2 (11:28→23:25)
[2017-01-17] MEDS: MEROPENEM 2 GM in SOD CHLORIDE 0.9% 100 ML IVPB SCH ×2 (12:54→21:33)
--- NOTE | 2017-01-17 12:54 | RADRPT ---
Echocardiogram Report Patient Name: JAY RUIZ Gender: Female Date: 1955 Study Date: 16-Jan-2017 Photographer Finish: Cristo [facility] Location: ER=4 Race: = Ref. Physician: RUTH KENNEDY Quality: Adequate Procedures: Transthoracic echocardiogram with complete 2D, M-Mode, and doppler examination. Indications: Post Arrest, Unconcious. 2D/M Mode Doppler Measurement Value Normal Ranges Measurement Value Normal Ranges LVIDd 2D 4.7 3.5 - 5.6 cm CARMEN Vmax 1.3 cm2 LVIDs 2D 3.8 2.1 - 4.1 cm AV Peak Anurag 1.3 m/sec FS 2D 19.6 % AV Peak PG 7.0 mmHg LVPWd 2D 1.0 0.6 - 1.1 cm LVOT Peak Anurag 0.7 m/sec IVSd 2D 1.0 0.6 - 1.1 cm LVOT Peak PG 2.0 mmHg IVS/LVPW 2D 1.0 MV Peak Anurag 3.1 m/sec AoR Diam 2D 2.2 2.0 - 3.7 cm MV Peak PG 39.0 mmHg LA/Ao 2D 3 0 - 1 MV Mean Anurag 1.8 m/sec EDV 2D 104.0 cm3 MV Mean PG 15.0 mmHg ESV 2D 54.0 cm3 MV VTI 123.0 cm LA Dimen 2D 5.5 2.3 - 4.0 cm MVA PHT 0.6 cm2 LVOT Diam 1.8 cm MR Peak PG 98.0 mmHg LVOT Area 2.5 cm2 MR Peak Anurag 5.0 m/sec TR Peak Anurag 2.9 m/sec TR Peak PG 34.0 mmHg RVSP 37.0 mmHg Findings Left Ventricle: Normal left ventricular cavity size. Normal left ventricular wall thickness. Mild global left ventricular systolic dysfunction. Ejection fraction is visually estimated at 45 %. Right Ventricle: Normal right ventricular size. Normal right ventricular systolic function. Left Atrium: There is severe enlargement of left atrium. Right Atrium: The right atrium is normal in size. Mitral Valve: Mitral valve leaflets appear moderately thickened. Moderate mitral annular calcification. Mild mitral valve regurgitation. Severe mitral stenosis. Mitral valve Max Velocity 3.12 m/sec. MaxPG 39.00 mmHg. MeanPG 15.00 mmHg. Mitral Valve Area by PHT0.9 cm2. 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 Aortic Valve: Normal appearance of the aortic valve. Tricuspid Valve: Normal appearance of the tricuspid valve. Estimated peak PA systolic pressure 34 mmHg. There is mild tricuspid regurgitation. Pulmonic Valve: Pulmonic valve not well visualized. There is trace pulmonic regurgitation. Pericardium: Normal pericardium with no significant pericardial effusion. Aorta: Normal aortic root. IVC: Normal size and normal respiratory collapse consistent with normal right atrial pressure. The IVC is not well visualized. Conclusions 1.Normal left ventricular cavity size. Normal left ventricular wall thickness. Mild global left ventricular systolic dysfunction. Ejection fraction is visually estimated at 45 %. Abnormal septal motion. 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 Mild mitral valve regurgitation. Severe enlargement of left atrium. 3.Estimated peak PA systolic pressure 34 mmHg plus right atrial pressure. Electronically Signed By: Sathya Castañeda 17-Jan-2017 12:54:02 -0700 Patient Name: JAY RUIZ Study Date: 16-Jan-2017 [id number]
[2017-01-17] MEDS ORDERED: DIGOXIN 500 MCG INJ IV ONE (13:00)
[2017-01-17] MEDS: INSULIN ASPART [NOVOLOG] 3 ML PEN SC SCH ×3 (13:00→20:39)
[2017-01-17] MEDS: ACYCLOVIR 500 MG in SOD CHLORIDE 0.9% 100 ML IVPB SCH ×2 (13:54→22:11)
[2017-01-17] MEDS: COLLAGENASE 30 GM TUBE TOP SCH (20:41)
[2017-01-17] MEDS: ENOXAPARIN 30 MG/0.3 ML SYG SC SCH (20:56)
[2017-01-17] MEDS ORDERED: ENOXAPARIN 40 MG/0.4 ML SYG SC SCH (21:00)
[2017-01-18] VITALS (26 sets, daily range): BP systolic 93–120; BP diastolic 53–78; PULSE 89–143; RESP 17–30
[2017-01-18] MEDS: INSULIN ASPART [NOVOLOG] 3 ML PEN SC SCH ×6 (01:00→21:00)
[2017-01-18] MEDS: METOPROLOL 5 MG INJ IV PRN ×2 (04:39→09:14)
[2017-01-18] MEDS: ACYCLOVIR 500 MG in SOD CHLORIDE 0.9% 100 ML IVPB SCH (05:15)
[2017-01-18 06:33] LABS: ADD SCAN DIFF NO
[2017-01-18 06:44] LABS: BASOPHIL # 0.1 10^3/ul (0.0-0.1); BASOPHILS % 0.5 % (0.0-2.0); EOSINOPHILS % 0.1 % (0.0-7.0); HEMOGLOBIN 12.1 g/dl (12.0-16.0); LYMPHOCYTES # 1.5 10^3/ul (0.8-2.9); MEAN CORPUSCULAR HEMOGLOBIN 26.1 pg (29.0-33.0); MEAN CORPUSCULAR HGB CONC 31.8 g/dl (32.0-37.0); MEAN CORPUSCULAR VOLUME 81.9 fl (82.0-101.0); MEAN PLATELET VOLUME 12.2 fl (7.4-10.4); MONOCYTE # 0.9 10^3/ul (0.3-0.9); MONOCYTES % 4.6 % (0.0-11.0); NEUTROPHIL # 15.8 10^3/ul (1.6-7.5); NEUTROPHILS % 86.3 % (39.0-77.0); PLATELET COUNT 298 10^3/UL (140-415); RED BLOOD COUNT 4.64 10^6/ul (4.20-5.40); RED CELL DISTRIBUTION WIDTH 16.8 % (11.5-14.5); WHITE BLOOD COUNT 18.4 10^3/ul (4.8-10.8)
[2017-01-18 07:14] LABS: INR 2.28; PROTIME 25.4 Sec (12.2-14.2)
[2017-01-18 07:25] LABS: CHOL/HDL RATIO 4.4 RATIO
[2017-01-18 07:26] LABS: ALBUMIN/GLOBULIN RATIO 1.48; BILIRUBIN,INDIRECT 0.9 mg/dl (0-1.1); BILIRUBIN,TOTAL 0.9 mg/dl (0.2-1.3); CALCIUM 9.3 mg/dl (8.4-10.2); CREATININE 1.91 mg/dl (0.44-1.00); POTASSIUM 4.5 mmol/L (3.5-5.1); TOTAL PROTEIN 6.7 g/dl (6.1-8.1)
[2017-01-18 08:00] LABS: THYROID STIMULATING HORMONE 0.547 MIU/L (0.465-4.680)
[2017-01-18] MEDS: MEROPENEM 2 GM in SOD CHLORIDE 0.9% 100 ML IVPB SCH (08:54)
[2017-01-18] MEDS: LEVETIRACETAM 500 MG (PMX) 100 ML IVPB SCH ×2 (08:54→21:55)
[2017-01-18] MEDS: ENOXAPARIN 30 MG/0.3 ML SYG SC SCH (09:01)
[2017-01-18] MEDS: COLLAGENASE 30 GM TUBE TOP SCH (09:01)
[2017-01-18] MEDS: VANCOMYCIN 750 MG in SOD CHLORIDE 0.9% 150 ML IVPB SCH ×2 (11:00→11:23)
--- NOTE | 2017-01-18 11:08 | CONS ---
Date/Time of Note Date/Time of Note DATE: 01/18/17 TIME: 10:58 Assessment/Plan Assessment/Plan Chief Complaint/Hosp Course IMP: 1. AF-some mild RVR/Trop negative x 3 2.Hypotension-borderline 3.encephalopathy/ams 4.coagulopathy 5. Acute Renal failure 6.Leukocytosis Recc: -Tele -serial ecg's -Will f/u echo -hold lovenox/follow INR now therapeutic -Continue keppra/abx's/acyclovir -Ongoing neuro eval/? LP -Follow MS closely Problems: Consultation Date/Type/Reason Admit Date/Time Jan 16, 2017 at 15:19 Initial Consult Date 01/17/17 Type of Consultation: cardiology Reason for Consultation AF Referring Provider: ROXANA TORO MD Exam/Review of Systems Vital Signs Vitals Vital Signs Date Time Temp Pulse Resp B/P Pulse Ox O2 Delivery O2 Flow Rate FiO2 01/18/17 09:00 91 26 106/68 99 Nasal Cannula 01/18/17 08:00 2.0 01/18/17 08:00 98.1 Intake and Output 01/17/17 01/17/17 01/18/17 15:00 23:00 07:00 Intake Total 950 ml 300 ml 550 ml Output Total 270 ml 105 ml 750 ml Balance 680 ml 195 ml -200 ml Exam Review of Systems: CONSTITUTIONAL: No fevers, chills. PULMONARY: No sob CARDIOVASCULAR: No chest pain/palpitations GASTROINTESTINAL: No nausea/vomiting. GENITOURINARY: No hematuria/dysuria. MUSCULOSKELETAL: No myagias/arthalgias. PSYCHIATRIC: The patient denies depression. NEUROLOGIC: encephalopathic/non-responsive Constitutional: other (non-responsive) Psych: no complaints Head: normocephalic ENMT: mucosa pink and moist Neck: jvd (9 cm water), supple Respiratory: diminished breath sounds (at bases/B), other (upper airway rhoncherous sounds) Cardiovascular: regular rate and rhythm Gastrointestinal: non-tender, soft Musculoskeletal: muscle tone (normal) Extremities: edema (none) Neurological: unresponsive Results Result Diagram: 01/18/17 0620 01/18/17 0620 Results 24 hrs Laboratory Tests Test 01/17/17 13:05 01/17/17 16:00 01/17/17 17:28 01/17/17 19:25 Bedside Glucose 107 112 HIV (1&2) Antibody NEGATIVE Troponin I < 0.012 Test 01/17/17 20:38 01/18/17 01:01 01/18/17 01:05 01/18/17 04:31 Bedside Glucose 100 116 119 Troponin I < 0.012 Test 01/18/17 06:20 01/18/17 08:57 White Blood Count 18.4 H Red Blood Count 4.64 Hemoglobin 12.1 Hematocrit 38.0 Mean Corpuscular Volume 81.9 L Mean Corpuscular Hemoglobin 26.1 L Mean Corpuscular Hemoglobin Concent 31.8 L Red Cell Distribution Width 16.8 H Platelet Count 298 Mean Platelet Volume 12.2 H Neutrophils % 86.3 H Lymphocytes % 8.0 L Monocytes % 4.6 Eosinophils % 0.1 Basophils % 0.5 Nucleated Red Blood Cells % 0.0 Neutrophils # 15.8 H Lymphocytes # 1.5 Monocytes # 0.9 Eosinophils # 0.0 Basophils # 0.1 Nucleated Red Blood Cells # 0.0 Prothrombin Time 25.4 H Prothrombin Time Ratio 2.0 INR International Normalized Ratio 2.28 Sodium Level 138 Potassium Level 4.5 Chloride Level 108 Carbon Dioxide Level 19 L Anion Gap 16 Blood Urea Nitrogen 16 Creatinine 1.91 H Glucose Level 103 Calcium Level 9.3 Magnesium Level 2.2 Total Bilirubin 0.9 Direct Bilirubin 0.00 Indirect Bilirubin 0.9 Aspartate Amino Transf (AST/SGOT) 111 H Alanine Aminotransferase (ALT/SGPT) 98 H Alkaline Phosphatase 75 Total Protein 6.7 Albumin 4.0 Globulin 2.70 Albumin/Globulin Ratio 1.48 Triglycerides Level 88 Cholesterol Level 146 LDL Cholesterol, Calculated 95 HDL Cholesterol 33 L Cholesterol/HDL Ratio 4.4 Vitamin B12 Level 459 Thyroid Stimulating Hormone (TSH) 0.547 Free Thyroxine 1.54 Bedside Glucose 97 Medications Medications Current Medications Levetiracetam 100 ml @ 400 mls/hr Q12 IVPB Last administered on 01/18/17 08: 54; Admin Dose 400 MLS/HR; Start 01/17/17 at 09:00 Potassium Chloride/Sodium Chloride (1/2 NS + KCl 20 Meq) 1,000 ml @ 100 mls/hr Q10H IV Last administered on 01/17/17 17:30; Admin Dose 100 MLS/HR; Start at 21:30 Metoprolol Tartrate 5 mg 5 mg Q4 PRN IV NOTE Last administered on 01/18/17 09: 14; Admin Dose 5 MG; Start 01/17/17 at 00:30 Vancomycin HCl 750 mg/Sodium Chloride 150 ml @ 75 mls/hr Q12H IVPB Last administered on 01/17/17 23:25; Admin Dose 75 MLS/HR; Start 01/17/17 at 11:00 Acyclovir 500 mg/ Sodium Chloride 100 ml @ 100 mls/hr Q8 IVPB Last administered on 01/18/17 05:15; Admin Dose 100 MLS/HR; Start 01/17/17 at 14:00 Meropenem/Sodium Chloride (Merrem/NS) 100 ml @ 200 mls/hr Q12 IVPB Last administered on 01/18/17 08:54; Admin Dose 200 MLS/HR; Start 01/17/17 at 12:00 Insulin Aspart (Novolog Insulin Pen) NOVOLOG *MILD* ALGORI... Q4 SC ; Start at 13:00 Miscellaneous Information 1 ea NOTE XX ; Start 01/17/17 at 10:00 Glucose (Glutose) 15 gm Q15M PRN PO DECREASED GLUCOSE; Start 01/17/17 at 10:00 Glucose (Glutose) 22.5 gm Q15M PRN PO DECREASED GLUCOSE; Start 01/17/17 at 10: 00 Dextrose (D50w Syringe) 25 ml Q15M PRN IV DECREASED GLUCOSE; Start 01/17/17 at 10:00 Dextrose (D50w Syringe) 50 ml Q15M PRN IV DECREASED GLUCOSE; Start 01/17/17 at 10:00 Glucagon (Glucagen) 1 mg Q15M PRN IM DECREASED GLUCOSE; Start 01/17/17 at 10:00 Glucose (Glutose) 15 gm Q15M PRN BUCCAL DECREASED GLUCOSE; Start 01/17/17 at 10 :00 Enoxaparin Sodium (Lovenox) 30 mg BID SC Last administered on 01/18/17 09:01; Admin Dose 30 MG; Start 01/17/17 at 21:00 Collagenase (Santyl) 1 applic DAILY TOP Last administered on 01/18/17 09:01; Admin Dose 1 APPLIC; Start 01/17/17 at 21:00 MINOO REY 17, 2017 11:07
[2017-01-18] MEDS: DIGOXIN 500 MCG INJ IV SCH ×2 (11:34→18:13)
[2017-01-18] MEDS: 1/2 NS + KCL 20 MEQ 1,000 ML IV SCH ×2 (12:41→13:30)
[2017-01-18] MEDS: MULTIVITAMINS 10 ML, THIAMINE 100 MG, FOLIC ACID 1 MG, MAGNESIUM SULFATE 2 GM in SOD CH... IVPB SCH (15:10)
--- NOTE | 2017-01-18 17:48 | CONS ---
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 aureus bacteremia. Transthoracic echo on 01/16/2017 did not reveal valvular vegetation - h/o CVA. Per Pt's daughter in law, Pt did not turn encephalopathic after her last CVA episodes - A fib on coumadin - h/o DVT - h/o LLE infection s/p fasciotomy at [facility] recommendations - pending results: blood (sensitivity of S. aureus in blood cultures, crypto antigen, cocci seroloby, West Nile virus serology and PCR, urine histoplasma antigen), repeat blood cultures - I agree with LP. I spoke with Dr. Lozano today who also agreed with LP. I ordered INR, LP to be performed if INR <2, and pertinent CSF tests dated tomorrow. If INR remains >2, I recommend waiting until INR<2. I explained the indications and risks of LP to Juan, Pt's son and spokesperson, and his , and they understood. They want to talk among themselves and inform us their decision. - I also recommend transesophageal echo to r/o valvular vegetation - continue empiric IV vancomycin, meropenem and IV acyclovir while waiting for the results of blood and CSF (if LP is performed) - place Pt on droplet precautions until bacterial meningitis is ruled out management d/w Pt's RN, charge nurse, Drs. Toro and Marta, Juan, Pt' s son and his the total time I took to care for this Pt today was from 1630 to 1520 Problems: Consultation Date/Type/Reason Admit Date/Time Jan 16, 2017 at 15:19 Initial Consult Date 01/17/17 Type of Consultation: ID Referring Provider: ROXANA TORO MD 24 HR Interval Summary Free Text/Dictation remains obtunded Subjective hx not possible: pt non-verbal Exam/Review of Systems Vital Signs Vitals Vital Signs Date Time Temp Pulse Resp B/P Pulse Ox O2 Delivery O2 Flow Rate FiO2 01/18/17 16:00 111 01/18/17 15:00 30 106/68 99 Nasal Cannula 2.0 01/18/17 12:00 98.0 Intake and Output 01/17/17 01/17/17 01/18/17 15:00 23:00 07:00 Intake Total 950 ml 300 ml 650 ml Output Total 270 ml 105 ml 750 ml Balance 680 ml 195 ml -100 ml Exam Constitutional: non-verbal Psych: confusion Head: normocephalic Eyes: other (L pupil is slugish to light, R pupil is fixed) ENMT: nl external ears & nose Respiratory: clear to auscultation, normal air movement Cardiovascular: nl pulses, regular rate and rhythm Gastrointestinal: non-tender, soft Extremities: normal pulses, No edema Neurological: unresponsive Skin: rash or lesions (LLE (s/p debridement)) Results Result Diagram: 01/18/17 0620 01/18/17 0620 Results 24 hrs Laboratory Tests Test 01/17/17 19:25 01/17/17 20:38 01/18/17 01:01 01/18/17 01:05 Troponin I < 0.012 < 0.012 Bedside Glucose 100 116 Test 01/18/17 04:31 01/18/17 06:20 01/18/17 08:57 01/18/17 10:05 Bedside Glucose 119 97 White Blood Count 18.4 H Red Blood Count 4.64 Hemoglobin 12.1 Hematocrit 38.0 Mean Corpuscular Volume 81.9 L Mean Corpuscular Hemoglobin 26.1 L Mean Corpuscular Hemoglobin Concent 31.8 L Red Cell Distribution Width 16.8 H Platelet Count 298 Mean Platelet Volume 12.2 H Neutrophils % 86.3 H Lymphocytes % 8.0 L Monocytes % 4.6 Eosinophils % 0.1 Basophils % 0.5 Nucleated Red Blood Cells % 0.0 Neutrophils # 15.8 H Lymphocytes # 1.5 Monocytes # 0.9 Eosinophils # 0.0 Basophils # 0.1 Nucleated Red Blood Cells # 0.0 Prothrombin Time 25.4 H Prothrombin Time Ratio 2.0 INR International Normalized Ratio 2.28 Sodium Level 138 Potassium Level 4.5 Chloride Level 108 Carbon Dioxide Level 19 L Anion Gap 16 Blood Urea Nitrogen 16 Creatinine 1.91 H Glucose Level 103 Calcium Level 9.3 Magnesium Level 2.2 Total Bilirubin 0.9 Direct Bilirubin 0.00 Indirect Bilirubin 0.9 Aspartate Amino Transf (AST/SGOT) 111 H Alanine Aminotransferase (ALT/SGPT) 98 H Alkaline Phosphatase 75 Total Protein 6.7 Albumin 4.0 Globulin 2.70 Albumin/Globulin Ratio 1.48 Triglycerides Level 88 Cholesterol Level 146 LDL Cholesterol, Calculated 95 HDL Cholesterol 33 L Cholesterol/HDL Ratio 4.4 Vitamin B12 Level 459 Thyroid Stimulating Hormone (TSH) 0.547 Free Thyroxine 1.54 Vancomycin Level Trough 28.2 *H Test 01/18/17 12:51 Bedside Glucose 87 Medications Medications Current Medications Levetiracetam 100 ml @ 400 mls/hr Q12 IVPB Last administered on 01/18/17 08: 54; Admin Dose 400 MLS/HR; Start 01/17/17 at 09:00 Potassium Chloride/Sodium Chloride (1/2 NS + KCl 20 Meq) 1,000 ml @ 100 mls/hr Q10H IV Last administered on 01/18/17 12:41; Admin Dose 100 MLS/HR; Start at 21:30 Metoprolol Tartrate 5 mg 5 mg Q4 PRN IV NOTE Last administered on 01/18/17 09: 14; Admin Dose 5 MG; Start 01/17/17 at 00:30 Vancomycin HCl/ Sodium Chloride (Vancocin/NS) 150 ml @ 75 mls/hr Q12H IVPB Last administered on 01/17/17 23:25; Admin Dose 75 MLS/HR; Start 01/17/17 at 11 :00; Status Future Hold Insulin Aspart (Novolog Insulin Pen) NOVOLOG *MILD* ALGORI... Q4 SC ; Start at 13:00 Miscellaneous Information 1 ea NOTE XX ; Start 01/17/17 at 10:00 Glucose (Glutose) 15 gm Q15M PRN PO DECREASED GLUCOSE; Start 01/17/17 at 10:00 Glucose (Glutose) 22.5 gm Q15M PRN PO DECREASED GLUCOSE; Start 01/17/17 at 10: 00 Dextrose (D50w Syringe) 25 ml Q15M PRN IV DECREASED GLUCOSE; Start 01/17/17 at 10:00 Dextrose (D50w Syringe) 50 ml Q15M PRN IV DECREASED GLUCOSE; Start 01/17/17 at 10:00 Glucagon (Glucagen) 1 mg Q15M PRN IM DECREASED GLUCOSE; Start 01/17/17 at 10:00 Glucose (Glutose) 15 gm Q15M PRN BUCCAL DECREASED GLUCOSE; Start 01/17/17 at 10 :00 Collagenase (Santyl) 1 applic DAILY TOP Last administered on 01/18/17 09:01; Admin Dose 1 APPLIC; Start 01/17/17 at 21:00 Digoxin 250 mcg 250 mcg Q6 IV Last administered on 01/18/17 11:34; Admin Dose 250 MCG; Start 01/18/17 at 12:00; Stop 01/18/17 at 18:01 Acyclovir 500 mg/ Sodium Chloride 100 ml @ 100 mls/hr Q12 IVPB ; Start at 21:00 Meropenem/Sodium Chloride 50 ml @ 100 mls/hr Q12 IVPB ; Start 01/18/17 at 21:00 Multivitamins/ Thiamine HCl/ Folic Acid/ Magnesium Sulfate/ Sodium Chloride ( Mvi Adult/ Vitamin B1/Folic Acid/Magnesium Sulfate/NS) 1,015.2 ml @ 125 mls/ hr DAILY@09 IVPB Last administered on 01/18/17 15:10; Admin Dose 125 MLS/HR; Start 01/18/17 at 14:45 Miscellaneous Information (*Rx Drug Level Order Reminder*) RANDOM VANCOMYCIN LEVEL IN AM ONCE ONCE XX ; Start 01/19/17 at 05:00; Stop 01/19/17 at 05:01 TYE STYLES M.D. Jan 18, 2017 17:40
--- NOTE | 2017-01-18 17:57 | PN ---
Date/Time of Note Date/Time of Note DATE: 01/18/17 TIME: 17:49 Assessment/Plan VTE Prophylaxis VTE Prophylaxis Intervention: SCD's Lines/Catheters IV Catheter Type (from Nrsg): Peripheral IV Urinary Cath still in place: Yes Reason Cath still needed: urinary retention Assessment/Plan Chief Complaint/Hosp Course Patient is remaining unresponsive to verbal stimuli, withdrawal upper extremity in response to pain stimuli. Problems: Assessment/Plan -Acute encephalopathy, Dr. Lozano is following in neurology consultation, pending LP -Leukocytosis, started on broad-spectrum antibiotics, Dr. Bosch is following in infection disease consultation. -Altered level of consciousness -Atrial fibrillation with rapid ventricular response, Dr. Armenta is following and cardiology consultation. -Acute kidney injury, Dr. Mckeon is asked to see patient in nephrology consultation. -Left lower extremity, status post vascular surgery. Further recommendations based on clinical course. Plan of care discussed with Dr. Valdovinos Exam/Review of Systems Vital Signs Vitals Vital Signs Date Time Temp Pulse Resp B/P Pulse Ox O2 Delivery O2 Flow Rate FiO2 01/18/17 16:00 111 01/18/17 15:00 30 106/68 99 Nasal Cannula 2.0 01/18/17 12:00 98.0 Intake and Output 01/17/17 01/17/17 01/18/17 15:00 23:00 07:00 Intake Total 950 ml 300 ml 650 ml Output Total 270 ml 105 ml 750 ml Balance 680 ml 195 ml -100 ml Exam Head: atraumatic, normocephalic Neck: supple Respiratory: clear to auscultation Cardiovascular: irregular rhythm Gastrointestinal: non-tender, soft Extremities: edema Neurological: unresponsive Skin: nl turgor Results Result Diagram: 01/18/17 0620 01/18/17 0620 Results 24 hrs Laboratory Tests Test 01/17/17 19:25 01/17/17 20:38 01/18/17 01:01 01/18/17 01:05 Troponin I < 0.012 < 0.012 Bedside Glucose 100 116 Test 01/18/17 04:31 01/18/17 06:20 01/18/17 08:57 01/18/17 10:05 Bedside Glucose 119 97 White Blood Count 18.4 H Red Blood Count 4.64 Hemoglobin 12.1 Hematocrit 38.0 Mean Corpuscular Volume 81.9 L Mean Corpuscular Hemoglobin 26.1 L Mean Corpuscular Hemoglobin Concent 31.8 L Red Cell Distribution Width 16.8 H Platelet Count 298 Mean Platelet Volume 12.2 H Neutrophils % 86.3 H Lymphocytes % 8.0 L Monocytes % 4.6 Eosinophils % 0.1 Basophils % 0.5 Nucleated Red Blood Cells % 0.0 Neutrophils # 15.8 H Lymphocytes # 1.5 Monocytes # 0.9 Eosinophils # 0.0 Basophils # 0.1 Nucleated Red Blood Cells # 0.0 Prothrombin Time 25.4 H Prothrombin Time Ratio 2.0 INR International Normalized Ratio 2.28 Sodium Level 138 Potassium Level 4.5 Chloride Level 108 Carbon Dioxide Level 19 L Anion Gap 16 Blood Urea Nitrogen 16 Creatinine 1.91 H Glucose Level 103 Calcium Level 9.3 Magnesium Level 2.2 Total Bilirubin 0.9 Direct Bilirubin 0.00 Indirect Bilirubin 0.9 Aspartate Amino Transf (AST/SGOT) 111 H Alanine Aminotransferase (ALT/SGPT) 98 H Alkaline Phosphatase 75 Total Protein 6.7 Albumin 4.0 Globulin 2.70 Albumin/Globulin Ratio 1.48 Triglycerides Level 88 Cholesterol Level 146 LDL Cholesterol, Calculated 95 HDL Cholesterol 33 L Cholesterol/HDL Ratio 4.4 Vitamin B12 Level 459 Thyroid Stimulating Hormone (TSH) 0.547 Free Thyroxine 1.54 Vancomycin Level Trough 28.2 *H Test 01/18/17 12:51 Bedside Glucose 87 Medications Medications Current Medications Levetiracetam 100 ml @ 400 mls/hr Q12 IVPB Last administered on 01/18/17 08: 54; Admin Dose 400 MLS/HR; Start 01/17/17 at 09:00 Potassium Chloride/Sodium Chloride (1/2 NS + KCl 20 Meq) 1,000 ml @ 100 mls/hr Q10H IV Last administered on 01/18/17 12:41; Admin Dose 100 MLS/HR; Start at 21:30 Metoprolol Tartrate 5 mg 5 mg Q4 PRN IV NOTE Last administered on 01/18/17 09: 14; Admin Dose 5 MG; Start 01/17/17 at 00:30 Vancomycin HCl/ Sodium Chloride (Vancocin/NS) 150 ml @ 75 mls/hr Q12H IVPB Last administered on 01/17/17 23:25; Admin Dose 75 MLS/HR; Start 01/17/17 at 11 :00; Status Future Hold Insulin Aspart (Novolog Insulin Pen) NOVOLOG *MILD* ALGORI... Q4 SC ; Start at 13:00 Miscellaneous Information 1 ea NOTE XX ; Start 01/17/17 at 10:00 Glucose (Glutose) 15 gm Q15M PRN PO DECREASED GLUCOSE; Start 01/17/17 at 10:00 Glucose (Glutose) 22.5 gm Q15M PRN PO DECREASED GLUCOSE; Start 01/17/17 at 10: 00 Dextrose (D50w Syringe) 25 ml Q15M PRN IV DECREASED GLUCOSE; Start 01/17/17 at 10:00 Dextrose (D50w Syringe) 50 ml Q15M PRN IV DECREASED GLUCOSE; Start 01/17/17 at 10:00 Glucagon (Glucagen) 1 mg Q15M PRN IM DECREASED GLUCOSE; Start 01/17/17 at 10:00 Glucose (Glutose) 15 gm Q15M PRN BUCCAL DECREASED GLUCOSE; Start 01/17/17 at 10 :00 Collagenase (Santyl) 1 applic DAILY TOP Last administered on 01/18/17 09:01; Admin Dose 1 APPLIC; Start 01/17/17 at 21:00 Digoxin 250 mcg 250 mcg Q6 IV Last administered on 01/18/17 11:34; Admin Dose 250 MCG; Start 01/18/17 at 12:00; Stop 01/18/17 at 18:01 Acyclovir 500 mg/ Sodium Chloride 100 ml @ 100 mls/hr Q12 IVPB ; Start at 21:00 Meropenem/Sodium Chloride 50 ml @ 100 mls/hr Q12 IVPB ; Start 01/18/17 at 21:00 Multivitamins/ Thiamine HCl/ Folic Acid/ Magnesium Sulfate/ Sodium Chloride ( Mvi Adult/ Vitamin B1/Folic Acid/Magnesium Sulfate/NS) 1,015.2 ml @ 125 mls/ hr DAILY@09 IVPB Last administered on 01/18/17 15:10; Admin Dose 125 MLS/HR; Start 01/18/17 at 14:45 Miscellaneous Information (*Rx Drug Level Order Reminder*) RANDOM VANCOMYCIN LEVEL IN AM ONCE ONCE XX ; Start 01/19/17 at 05:00; Stop 01/19/17 at 05:01 LAWRENCE PICKERING Jan 18, 2017 17:56
--- NOTE | 2017-01-18 18:08 | CONS ---
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 aureus bacteremia. Transthoracic echo on 01/16/2017 did not reveal valvular vegetation - h/o CVA. Per Pt's daughter in law, Pt did not turn encephalopathic after her last CVA episodes - MARIELA - A fib on coumadin - h/o DVT - h/o LLE infection s/p fasciotomy at [facility] REVISED recommendations - pending results: blood (sensitivity of S. aureus in blood cultures, crypto antigen, cocci seroloby, West Nile virus serology and PCR, urine histoplasma antigen), repeat blood cultures - I agree with LP. I spoke with Dr. Lozano today who also agreed with LP. I ordered INR, LP to be performed if INR <2, and pertinent CSF tests dated tomorrow. If INR remains >2, I recommend waiting until INR<2. I explained the indications and risks of LP to Juan, Pt's son and spokesperson, and his , and they understood. They want to talk among themselves and inform us their decision. - I also recommend transesophageal echo to r/o valvular vegetation - continue empiric treatment for meningitis: renally dosed meropenem, change IV vancomycin to linezolid. Will hold acyclovir because of MARIELA. Will restart at renal dose if HSV encephalitis is ruled in. - place Pt on droplet precautions until communicable bacterial meningitis is ruled out management d/w Pt's RN, charge nurse, Drs. Toro and Marta, Juan, Pt' s son and his the total time I took to care for this Pt today was from 1630 to 1520 Problems: Consultation Date/Type/Reason Admit Date/Time Jan 16, 2017 at 15:19 Initial Consult Date 01/17/17 Type of Consultation: ID Referring Provider: ROXANA TORO MD Exam/Review of Systems Vital Signs Vitals Vital Signs Date Time Temp Pulse Resp B/P Pulse Ox O2 Delivery O2 Flow Rate FiO2 01/18/17 16:00 111 01/18/17 15:00 30 106/68 99 Nasal Cannula 2.0 01/18/17 12:00 98.0 Intake and Output 01/17/17 01/17/17 01/18/17 15:00 23:00 07:00 Intake Total 950 ml 300 ml 650 ml Output Total 270 ml 105 ml 750 ml Balance 680 ml 195 ml -100 ml Results Result Diagram: 01/18/17 0620 01/18/17 0620 Results 24 hrs Laboratory Tests Test 01/17/17 19:25 01/17/17 20:38 01/18/17 01:01 01/18/17 01:05 Troponin I < 0.012 < 0.012 Bedside Glucose 100 116 Test 01/18/17 04:31 01/18/17 06:20 01/18/17 08:57 01/18/17 10:05 Bedside Glucose 119 97 White Blood Count 18.4 H Red Blood Count 4.64 Hemoglobin 12.1 Hematocrit 38.0 Mean Corpuscular Volume 81.9 L Mean Corpuscular Hemoglobin 26.1 L Mean Corpuscular Hemoglobin Concent 31.8 L Red Cell Distribution Width 16.8 H Platelet Count 298 Mean Platelet Volume 12.2 H Neutrophils % 86.3 H Lymphocytes % 8.0 L Monocytes % 4.6 Eosinophils % 0.1 Basophils % 0.5 Nucleated Red Blood Cells % 0.0 Neutrophils # 15.8 H Lymphocytes # 1.5 Monocytes # 0.9 Eosinophils # 0.0 Basophils # 0.1 Nucleated Red Blood Cells # 0.0 Prothrombin Time 25.4 H Prothrombin Time Ratio 2.0 INR International Normalized Ratio 2.28 Sodium Level 138 Potassium Level 4.5 Chloride Level 108 Carbon Dioxide Level 19 L Anion Gap 16 Blood Urea Nitrogen 16 Creatinine 1.91 H Glucose Level 103 Calcium Level 9.3 Magnesium Level 2.2 Total Bilirubin 0.9 Direct Bilirubin 0.00 Indirect Bilirubin 0.9 Aspartate Amino Transf (AST/SGOT) 111 H Alanine Aminotransferase (ALT/SGPT) 98 H Alkaline Phosphatase 75 Total Protein 6.7 Albumin 4.0 Globulin 2.70 Albumin/Globulin Ratio 1.48 Triglycerides Level 88 Cholesterol Level 146 LDL Cholesterol, Calculated 95 HDL Cholesterol 33 L Cholesterol/HDL Ratio 4.4 Vitamin B12 Level 459 Thyroid Stimulating Hormone (TSH) 0.547 Free Thyroxine 1.54 Vancomycin Level Trough 28.2 *H Test 01/18/17 12:51 Bedside Glucose 87 Medications Medications Current Medications Levetiracetam 100 ml @ 400 mls/hr Q12 IVPB Last administered on 01/18/17 08: 54; Admin Dose 400 MLS/HR; Start 01/17/17 at 09:00 Potassium Chloride/Sodium Chloride (1/2 NS + KCl 20 Meq) 1,000 ml @ 100 mls/hr Q10H IV Last administered on 01/18/17 12:41; Admin Dose 100 MLS/HR; Start at 21:30 Metoprolol Tartrate 5 mg 5 mg Q4 PRN IV NOTE Last administered on 01/18/17 09: 14; Admin Dose 5 MG; Start 01/17/17 at 00:30 Vancomycin HCl/ Sodium Chloride (Vancocin/NS) 150 ml @ 75 mls/hr Q12H IVPB Last administered on 01/17/17 23:25; Admin Dose 75 MLS/HR; Start 01/17/17 at 11 :00; Status Future Hold Insulin Aspart (Novolog Insulin Pen) NOVOLOG *MILD* ALGORI... Q4 SC ; Start at 13:00 Miscellaneous Information 1 ea NOTE XX ; Start 01/17/17 at 10:00 Glucose (Glutose) 15 gm Q15M PRN PO DECREASED GLUCOSE; Start 01/17/17 at 10:00 Glucose (Glutose) 22.5 gm Q15M PRN PO DECREASED GLUCOSE; Start 01/17/17 at 10: 00 Dextrose (D50w Syringe) 25 ml Q15M PRN IV DECREASED GLUCOSE; Start 01/17/17 at 10:00 Dextrose (D50w Syringe) 50 ml Q15M PRN IV DECREASED GLUCOSE; Start 01/17/17 at 10:00 Glucagon (Glucagen) 1 mg Q15M PRN IM DECREASED GLUCOSE; Start 01/17/17 at 10:00 Glucose (Glutose) 15 gm Q15M PRN BUCCAL DECREASED GLUCOSE; Start 01/17/17 at 10 :00 Collagenase (Santyl) 1 applic DAILY TOP Last administered on 01/18/17 09:01; Admin Dose 1 APPLIC; Start 01/17/17 at 21:00 Digoxin 250 mcg 250 mcg Q6 IV Last administered on 01/18/17 11:34; Admin Dose 250 MCG; Start 01/18/17 at 12:00; Stop 01/18/17 at 18:01 Acyclovir 500 mg/ Sodium Chloride 100 ml @ 100 mls/hr Q12 IVPB ; Start at 21:00 Meropenem/Sodium Chloride 50 ml @ 100 mls/hr Q12 IVPB ; Start 01/18/17 at 21:00 Multivitamins/ Thiamine HCl/ Folic Acid/ Magnesium Sulfate/ Sodium Chloride ( Mvi Adult/ Vitamin B1/Folic Acid/Magnesium Sulfate/NS) 1,015.2 ml @ 125 mls/ hr DAILY@09 IVPB Last administered on 01/18/17t 15:10; Admin Dose 125 MLS/HR; Start 01/18/17 at 14:45 Miscellaneous Information (*Rx Drug Level Order Reminder*) RANDOM VANCOMYCIN LEVEL IN AM ONCE ONCE XX ; Start 01/19/17 at 05:00; Stop 01/19/17 at 05:01 TYE STYLES M.D. Jan 18, 2017 18:06
[2017-01-18] MEDS ORDERED: ACYCLOVIR 500 MG in SOD CHLORIDE 0.9% 100 ML IVPB SCH (21:00)
[2017-01-18] MEDS: MEROPENEM 1 GM/50ML(PMX) 50 ML IVPB SCH (21:55)
[2017-01-18] MEDS: LINEZOLID 600 MG/D5W (PMX) 300 ML IVPB SCH (21:55)
--- NOTE | 2017-01-18 22:47 | CONS ---
Date/Time of Note Date/Time of Note DATE: 01/18/17 TIME: 22:46 Assessment/Plan Assessment/Plan Chief Complaint/Hosp Course uurine studies pending Problems: Additional Assessment/Plan Pt has good urine volume, will continue IV for now Consultation Date/Type/Reason Admit Date/Time Jan 16, 2017 at 15:19 Initial Consult Date 01/17/17 Type of Consultation: renal Referring Provider: ROXANA TORO MD Exam/Review of Systems Vital Signs Vitals Vital Signs Date Time Temp Pulse Resp B/P Pulse Ox O2 Delivery O2 Flow Rate FiO2 01/18/17 20:22 1.0 01/18/17 20:00 109 01/18/17 18:00 30 112/76 9 Nasal Cannula 01/18/17 16:00 97.7 Intake and Output 01/17/17 01/17/17 01/18/17 15:00 23:00 07:00 Intake Total 950 ml 300 ml 650 ml Output Total 270 ml 105 ml 750 ml Balance 680 ml 195 ml -100 ml Results Result Diagram: 01/18/17 0620 01/18/17 0620 Results 24 hrs Laboratory Tests Test 01/18/17 01:01 01/18/17 01:05 01/18/17 04:31 01/18/17 06:20 Troponin I < 0.012 Bedside Glucose 116 119 White Blood Count 18.4 H Red Blood Count 4.64 Hemoglobin 12.1 Hematocrit 38.0 Mean Corpuscular Volume 81.9 L Mean Corpuscular Hemoglobin 26.1 L Mean Corpuscular Hemoglobin Concent 31.8 L Red Cell Distribution Width 16.8 H Platelet Count 298 Mean Platelet Volume 12.2 H Neutrophils % 86.3 H Lymphocytes % 8.0 L Monocytes % 4.6 Eosinophils % 0.1 Basophils % 0.5 Nucleated Red Blood Cells % 0.0 Neutrophils # 15.8 H Lymphocytes # 1.5 Monocytes # 0.9 Eosinophils # 0.0 Basophils # 0.1 Nucleated Red Blood Cells # 0.0 Prothrombin Time 25.4 H Prothrombin Time Ratio 2.0 INR International Normalized Ratio 2.28 Sodium Level 138 Potassium Level 4.5 Chloride Level 108 Carbon Dioxide Level 19 L Anion Gap 16 Blood Urea Nitrogen 16 Creatinine 1.91 H Glucose Level 103 Calcium Level 9.3 Magnesium Level 2.2 Total Bilirubin 0.9 Direct Bilirubin 0.00 Indirect Bilirubin 0.9 Aspartate Amino Transf (AST/SGOT) 111 H Alanine Aminotransferase (ALT/SGPT) 98 H Alkaline Phosphatase 75 Total Protein 6.7 Albumin 4.0 Globulin 2.70 Albumin/Globulin Ratio 1.48 Triglycerides Level 88 Cholesterol Level 146 LDL Cholesterol, Calculated 95 HDL Cholesterol 33 L Cholesterol/HDL Ratio 4.4 Vitamin B12 Level 459 Thyroid Stimulating Hormone (TSH) 0.547 Free Thyroxine 1.54 Test 01/18/17 08:57 01/18/17 10:05 01/18/17 12:51 01/18/17 18:10 Bedside Glucose 97 87 93 Vancomycin Level Trough 28.2 *H Test 01/18/17 21:54 Bedside Glucose 94 Medications Medications Current Medications Levetiracetam 100 ml @ 400 mls/hr Q12 IVPB Last administered on 01/18/17 21: 55; Admin Dose 400 MLS/HR; Start 01/17/17 at 09:00 Potassium Chloride/Sodium Chloride (1/2 NS + KCl 20 Meq) 1,000 ml @ 100 mls/hr Q10H IV Last administered on 01/18/17 12:41; Admin Dose 100 MLS/HR; Start at 21:30 Metoprolol Tartrate (Lopressor) 5 mg Q4 PRN IV NOTE Last administered on 09:14; Admin Dose 5 MG; Start 01/17/17 at 00:30 Insulin Aspart (Novolog Insulin Pen) NOVOLOG *MILD* ALGORI... Q4 SC ; Start at 13:00 Miscellaneous Information 1 ea NOTE XX ; Start 01/17/17 at 10:00 Glucose (Glutose) 15 gm Q15M PRN PO DECREASED GLUCOSE; Start 01/17/17 at 10:00 Glucose (Glutose) 22.5 gm Q15M PRN PO DECREASED GLUCOSE; Start 01/17/17 at 10: 00 Dextrose (D50w Syringe) 25 ml Q15M PRN IV DECREASED GLUCOSE; Start 01/17/17 at 10:00 Dextrose (D50w Syringe) 50 ml Q15M PRN IV DECREASED GLUCOSE; Start 01/17/17 at 10:00 Glucagon (Glucagen) 1 mg Q15M PRN IM DECREASED GLUCOSE; Start 01/17/17 at 10:00 Glucose (Glutose) 15 gm Q15M PRN BUCCAL DECREASED GLUCOSE; Start 01/17/17 at 10 :00 Collagenase 1 applic 1 applic DAILY TOP Last administered on 01/18/17 09:01; Admin Dose 1 APPLIC; Start 01/17/17 at 21:00 Meropenem/Sodium Chloride 50 ml @ 100 mls/hr Q12 IVPB Last administered on 21:55; Admin Dose 100 MLS/HR; Start 01/18/17 at 21:00 Multivitamins/ Thiamine HCl/ Folic Acid/ Magnesium Sulfate/ Sodium Chloride ( Mvi Adult/ Vitamin B1/Folic Acid/Magnesium Sulfate/NS) 1,015.2 ml @ 125 mls/ hr DAILY@09 IVPB Last administered on 01/18/17 15:10; Admin Dose 125 MLS/HR; Start 01/18/17 at 14:45 Miscellaneous Information RANDOM VANCOMYCIN LEVEL IN AM ONCE ONCE XX ; Start at 05:00; Stop 01/19/17 at 05:01 Linezolid (Zyvox 600mg/D5W (Pmx)) 300 ml @ 300 mls/hr Q12 IVPB Last administered on 01/18/17 21:55; Admin Dose 300 MLS/HR; Start 01/18/17 at 21:00 TALI CHIN MD Jan 18, 2017 22:47
[2017-01-19] VITALS (37 sets, daily range): BP systolic 92–127; BP diastolic 52–108; PULSE 73–182; RESP 15–28
[2017-01-19] MEDS: 1/2 NS + KCL 20 MEQ 1,000 ML IV SCH ×3 (00:42→21:52)
[2017-01-19] MEDS: INSULIN ASPART [NOVOLOG] 3 ML PEN SC SCH ×6 (01:00→21:00)
[2017-01-19 07:06] LABS: INR 1.38; PT RATIO 1.3
[2017-01-19 07:08] LABS: ALBUMIN 3.2 g/dl (3.3-4.9); CALCIUM 9.4 mg/dl (8.4-10.2); CREATININE 2.02 mg/dl (0.44-1.00); POTASSIUM 4.6 mmol/L (3.5-5.1); TOTAL PROTEIN 6.4 g/dl (6.1-8.1)
[2017-01-19] MEDS: MEROPENEM 1 GM/50ML(PMX) 50 ML IVPB SCH ×2 (09:23→21:58)
[2017-01-19] MEDS: LEVETIRACETAM 500 MG (PMX) 100 ML IVPB SCH ×2 (09:23→21:58)
[2017-01-19] MEDS: LINEZOLID 600 MG/D5W (PMX) 300 ML IVPB SCH ×2 (09:23→21:58)
[2017-01-19] MEDS: COLLAGENASE 30 GM TUBE TOP SCH (09:24)
[2017-01-19] MEDS: MULTIVITAMINS 10 ML, THIAMINE 100 MG, FOLIC ACID 1 MG, MAGNESIUM SULFATE 2 GM in SOD CH... IVPB SCH (11:33)
--- NOTE | 2017-01-19 12:35 | PN ---
Date/Time of Note Date/Time of Note DATE: 01/19/17 TIME: 12:24 Assessment/Plan VTE Prophylaxis VTE Prophylaxis Intervention: SCD's Lines/Catheters IV [facility] Peripheral IV Urinary Cath still in place: Yes Reason Cath still needed: urinary retention Assessment/Plan Chief Complaint/Hosp Course No change in neuro status. Creatinine is increased to 2. Vancomycin is on hold. Patient remains in atrial fibrillation at controlled rate. Assessment/Plan -Acute encephalopathy, Dr. Lozano is following in neurology consultation, pending LP -Staph aureus bacteremia, concern for meningitis, continue droplet isolation, antibiotics per ID. Dr. Abarca is following infection disease consultation. -Atrial fibrillation with rapid ventricular response, currently rate is controlled. Dr. Armenta is following and cardiology consultation. -Acute kidney injury, Dr. Poole is following in nephrology consultation. -History of CVA -History of hyperlipidemia -Left lower extremity, status post vascular surgery. Further recommendations based on clinical course. Plan of care discussed with Dr. Valdovinos. Problems: Exam/Review of Systems Vital Signs Vitals Vital Signs Date Time Temp Pulse Resp B/P Pulse Ox O2 Delivery O2 Flow Rate FiO2 01/19/17 10:00 73 22 100/61 98 01/19/17 09:00 Room Air 01/19/17 07:00 98.2 01/18/17 20:22 1.0 Intake and Output 01/18/17 01/18/17 01/19/17 15:00 23:00 07:00 Intake Total 800 ml 1200 ml 825 ml Output Total 750 ml 690 ml 500 ml Balance 50 ml 510 ml 325 ml Exam Head: atraumatic, normocephalic Neck: supple Respiratory: clear to auscultation Cardiovascular: irregular rhythm Gastrointestinal: non-tender, soft Extremities: edema Neurological: unresponsive Skin: nl turgor Results Result Diagram: 01/18/17 0620 01/19/17 0550 Results 24 hrs Laboratory Tests Test 01/18/17 12:51 01/18/17 18:10 01/18/17 21:54 01/19/17 01:24 Bedside Glucose 87 93 94 132 Test 01/19/17 05:19 01/19/17 05:20 01/19/17 05:50 01/19/17 05:51 Bedside Glucose 96 Urine Osmolality 268 Urine Random Sodium 109 H Sodium Level 141 Potassium Level 4.6 Chloride Level 107 Carbon Dioxide Level 20 L Anion Gap 19 H Blood Urea Nitrogen 19 Creatinine 2.02 H Glucose Level 96 Calcium Level 9.4 Phosphorus Level 3.7 Total Bilirubin 1.0 Direct Bilirubin 0.00 Indirect Bilirubin 1.0 Aspartate Amino Transf (AST/SGOT) 45 Alanine Aminotransferase (ALT/SGPT) 82 H Alkaline Phosphatase 74 Total Protein 6.4 Albumin 3.2 L Globulin 3.20 Albumin/Globulin Ratio 1.00 Random Vancomycin Level 20.1 Prothrombin Time 17.0 #H Prothrombin Time Ratio 1.3 INR International Normalized Ratio 1.38 Test 01/19/17 06:00 01/19/17 09:29 Hemoglobin A1c 6.3 H Bedside Glucose 76 Medications Medications Current Medications Levetiracetam 100 ml @ 400 mls/hr Q12 IVPB Last administered on 01/19/17 09: 23; Admin Dose 400 MLS/HR; Start 01/17/17 at 09:00 Potassium Chloride/Sodium Chloride (1/2 NS + KCl 20 Meq) 1,000 ml @ 100 mls/hr Q10H IV Last administered on 01/19/17 11:29; Admin Dose 100 MLS/HR; Start at 21:30 Metoprolol Tartrate (Lopressor) 5 mg Q4 PRN IV NOTE Last administered on 09:14; Admin Dose 5 MG; Start 01/17/17 at 00:30 Insulin Aspart (Novolog Insulin Pen) NOVOLOG *MILD* ALGORI... Q4 SC ; Start at 13:00 Miscellaneous Information 1 ea NOTE XX ; Start 01/17/17 at 10:00 Glucose (Glutose) 15 gm Q15M PRN PO DECREASED GLUCOSE; Start 01/17/17 at 10:00 Glucose (Glutose) 22.5 gm Q15M PRN PO DECREASED GLUCOSE; Start 01/17/17 at 10: 00 Dextrose (D50w Syringe) 25 ml Q15M PRN IV DECREASED GLUCOSE; Start 01/17/17 at 10:00 Dextrose (D50w Syringe) 50 ml Q15M PRN IV DECREASED GLUCOSE; Start 01/17/17 at 10:00 Glucagon (Glucagen) 1 mg Q15M PRN IM DECREASED GLUCOSE; Start 01/17/17 at 10:00 Glucose (Glutose) 15 gm Q15M PRN BUCCAL DECREASED GLUCOSE; Start 01/17/17 at 10 :00 Collagenase 1 applic 1 applic DAILY TOP Last administered on 01/19/17 09:24; Admin Dose 1 APPLIC; Start 01/17/17 at 21:00 Meropenem/Sodium Chloride 50 ml @ 100 mls/hr Q12 IVPB Last administered on 09:23; Admin Dose 100 MLS/HR; Start 01/18/17 at 21:00 Multivitamins 10 ml/Thiamine HCl 100 mg/Folic Acid 1 mg/Magnesium Sulfate 2 gm/ Sodium Chloride 1,015.2 ml @ 125 mls/ hr DAILY@09 IVPB Last administered on 11:33; Admin Dose 125 MLS/HR; Start 01/18/17 at 14:45 Linezolid (Zyvox 600mg/D5W (Pmx)) 300 ml @ 300 mls/hr Q12 IVPB Last administered on 01/19/17 09:23; Admin Dose 300 MLS/HR; Start 01/18/17 at 21:00 LAWRENCE PICKERING Jan 19, 2017 12:35
--- NOTE | 2017-01-19 13:17 | CONS ---
Date/Time of Note Date/Time of Note DATE: 01/19/17 TIME: 13:17 Assessment/Plan Assessment/Plan Additional Assessment/Plan Acute encephalopathy, Staph aureus bacteremia, Atrial fibrillation Acute kidney injury Non Oliguric History of CVA History of hyperlipidemia Cont to monitor Electrolytes, UO, Volume status and renal function Vanco on Hold Will repeat UA and Check complement levels Repeat chemistry in am No acute indication for HD at this time. Consultation Date/Type/Reason Admit Date/Time Jan 16, 2017 at 15:19 Initial Consult Date 01/17/17 Type of Consultation: renal Referring Provider: ROXANA TORO MD 24 HR Interval Summary Free Text/Dictation Still remains Altered. Possible plan for LP, Good UO reported Subjective hx not possible: pt critical status Exam/Review of Systems Vital Signs Vitals Vital Signs Date Time Temp Pulse Resp B/P Pulse Ox O2 Delivery O2 Flow Rate FiO2 01/19/17 12:00 92 23 125/76 01/19/17 12:00 97.5 01/19/17 11:30 97 01/19/17 09:00 Room Air 01/18/17 20:22 1.0 Intake and Output 01/18/17 01/18/17 01/19/17 15:00 23:00 07:00 Intake Total 800 ml 1200 ml 825 ml Output Total 750 ml 690 ml 500 ml Balance 50 ml 510 ml 325 ml Exam Constitutional: No distress ENMT: mucosa pink and moist Neck: No jvd Respiratory: clear to auscultation, No labored breathing Cardiovascular: edema, irregular rhythm Gastrointestinal: non-tender, soft, No rebound or guarding Neurological: unresponsive Skin: No diaphoresis Results Result Diagram: 01/18/17 0620 01/19/17 0550 Results 24 hrs Laboratory Tests Test 01/18/17 18:10 01/18/17 21:54 01/19/17 01:24 01/19/17 05:19 Bedside Glucose 93 94 132 96 Test 01/19/17 05:20 01/19/17 05:50 01/19/17 05:51 01/19/17 06:00 Urine Osmolality 268 Urine Random Sodium 109 H Sodium Level 141 Potassium Level 4.6 Chloride Level 107 Carbon Dioxide Level 20 L Anion Gap 19 H Blood Urea Nitrogen 19 Creatinine 2.02 H Glucose Level 96 Calcium Level 9.4 Phosphorus Level 3.7 Total Bilirubin 1.0 Direct Bilirubin 0.00 Indirect Bilirubin 1.0 Aspartate Amino Transf (AST/SGOT) 45 Alanine Aminotransferase (ALT/SGPT) 82 H Alkaline Phosphatase 74 Total Protein 6.4 Albumin 3.2 L Globulin 3.20 Albumin/Globulin Ratio 1.00 Random Vancomycin Level 20.1 Prothrombin Time 17.0 #H Prothrombin Time Ratio 1.3 INR International Normalized Ratio 1.38 Hemoglobin A1c 6.3 H Test 01/19/17 09:29 01/19/17 12:24 Bedside Glucose 76 100 Medications Medications Current Medications Levetiracetam 100 ml @ 400 mls/hr Q12 IVPB Last administered on 01/19/17 09: 23; Admin Dose 400 MLS/HR; Start 01/17/17 at 09:00 Potassium Chloride/Sodium Chloride (1/2 NS + KCl 20 Meq) 1,000 ml @ 100 mls/hr Q10H IV Last administered on 01/19/17 11:29; Admin Dose 100 MLS/HR; Start at 21:30 Metoprolol Tartrate (Lopressor) 5 mg Q4 PRN IV NOTE Last administered on 09:14; Admin Dose 5 MG; Start 01/17/17 at 00:30 Insulin Aspart (Novolog Insulin Pen) NOVOLOG *MILD* ALGORI... Q4 SC ; Start at 13:00 Miscellaneous Information 1 ea NOTE XX ; Start 01/17/17 at 10:00 Glucose (Glutose) 15 gm Q15M PRN PO DECREASED GLUCOSE; Start 01/17/17 at 10:00 Glucose (Glutose) 22.5 gm Q15M PRN PO DECREASED GLUCOSE; Start 01/17/17 at 10: 00 Dextrose (D50w Syringe) 25 ml Q15M PRN IV DECREASED GLUCOSE; Start 01/17/17 at 10:00 Dextrose (D50w Syringe) 50 ml Q15M PRN IV DECREASED GLUCOSE; Start 01/17/17 at 10:00 Glucagon (Glucagen) 1 mg Q15M PRN IM DECREASED GLUCOSE; Start 01/17/17 at 10:00 Glucose (Glutose) 15 gm Q15M PRN BUCCAL DECREASED GLUCOSE; Start 01/17/17 at 10 :00 Collagenase 1 applic 1 applic DAILY TOP Last administered on 7/18/17at 09:24; Admin Dose 1 APPLIC; Start 01/17/17 at 21:00 Meropenem/Sodium Chloride 50 ml @ 100 mls/hr Q12 IVPB Last administered on 09:23; Admin Dose 100 MLS/HR; Start 01/18/17 at 21:00 Multivitamins 10 ml/Thiamine HCl 100 mg/Folic Acid 1 mg/Magnesium Sulfate 2 gm/ Sodium Chloride 1,015.2 ml @ 125 mls/ hr DAILY@09 IVPB Last administered on 11:33; Admin Dose 125 MLS/HR; Start 01/18/17 at 14:45 Linezolid (Zyvox 600mg/D5W (Pmx)) 300 ml @ 300 mls/hr Q12 IVPB Last administered on 01/19/17 09:23; Admin Dose 300 MLS/HR; Start 01/18/17 at 21:00 Procedures Procedures PROCEDURE: XR Chest. CLINICAL INDICATION: Cardiac arrest. Sepsis. TECHNIQUE: Single frontal view. COMPARISON: None. FINDINGS: The lungs are clear. The heart is enlarged. There is no pleural effusion. There is no pneumothorax. IMPRESSION: 1. Cardiomegaly. 2. Clear lungs. RPTAT: QQ .Catrachito Small MD, MD Date Time Electronically viewed and signed by .Catrachito Small MD, MD on 01/16/2017 11:41 MC SHARPE MD Jan 19, 2017 13:17
--- NOTE | 2017-01-19 13:33 | CONS ---
Date/Time of Note Date/Time of Note DATE: 01/19/17 TIME: 13:28 Assessment/Plan Assessment/Plan Chief Complaint/Hosp Course IMP: 1. AF-some mild RVR/Trop negative x 3 2.Hypotension-borderline 3.encephalopathy/ams 4.coagulopathy-now decreased with coumadin held 5. Acute Renal failure-? secondary to vanc 6.Leukocytosis 7. Cardiomyopathy-EF 45% Recc: -Tele -serial ecg's -hold lovenox/follow INR and resume lovenox after LP -Continue keppra/abx's/acyclovir -Follow MS closely -IVP PRN BB for HR control Problems: Consultation Date/Type/Reason Admit Date/Time Jan 16, 2017 at 15:19 Initial Consult Date 01/17/17 Type of Consultation: cardiology Reason for Consultation AF Referring Provider: ROXANA TORO MD Exam/Review of Systems Vital Signs Vitals Vital Signs Date Time Temp Pulse Resp B/P Pulse Ox O2 Delivery O2 Flow Rate FiO2 01/19/17 12:00 92 23 125/76 01/19/17 12:00 97.5 01/19/17 11:30 97 01/19/17 09:00 Room Air 01/18/17 20:22 1.0 Intake and Output 01/18/17 01/18/17 01/19/17 15:00 23:00 07:00 Intake Total 800 ml 1200 ml 825 ml Output Total 750 ml 690 ml 500 ml Balance 50 ml 510 ml 325 ml Exam Review of Systems: CONSTITUTIONAL: No fevers, chills. PULMONARY: No sob CARDIOVASCULAR: No chest pain/palpitations GASTROINTESTINAL: No nausea/vomiting. GENITOURINARY: No hematuria/dysuria. MUSCULOSKELETAL: No myagias/arthalgias. PSYCHIATRIC: The patient denies depression. NEUROLOGIC: No weakness Constitutional: other (encephalopthic, non-responsive) Psych: no complaints ENMT: mucosa pink and moist Neck: jvd (9 cm water), supple Respiratory: diminished breath sounds Cardiovascular: irregular rhythm Gastrointestinal: non-tender, soft Musculoskeletal: muscle weakness (generalized) Extremities: edema (Trace LE edema) Results Result Diagram: 01/18/17 0620 01/19/17 0550 Results 24 hrs Laboratory Tests Test 01/18/17 18:10 01/18/17 21:54 01/19/17 01:24 01/19/17 05:19 Bedside Glucose 93 94 132 96 Test 01/19/17 05:20 01/19/17 05:50 01/19/17 05:51 01/19/17 06:00 Urine Osmolality 268 Urine Random Sodium 109 H Sodium Level 141 Potassium Level 4.6 Chloride Level 107 Carbon Dioxide Level 20 L Anion Gap 19 H Blood Urea Nitrogen 19 Creatinine 2.02 H Glucose Level 96 Calcium Level 9.4 Phosphorus Level 3.7 Total Bilirubin 1.0 Direct Bilirubin 0.00 Indirect Bilirubin 1.0 Aspartate Amino Transf (AST/SGOT) 45 Alanine Aminotransferase (ALT/SGPT) 82 H Alkaline Phosphatase 74 Total Protein 6.4 Albumin 3.2 L Globulin 3.20 Albumin/Globulin Ratio 1.00 Random Vancomycin Level 20.1 Prothrombin Time 17.0 #H Prothrombin Time Ratio 1.3 INR International Normalized Ratio 1.38 Hemoglobin A1c 6.3 H Test 01/19/17 09:29 01/19/17 12:24 Bedside Glucose 76 100 Medications Medications Current Medications Levetiracetam 100 ml @ 400 mls/hr Q12 IVPB Last administered on 01/19/17 09: 23; Admin Dose 400 MLS/HR; Start 01/17/17 at 09:00 Potassium Chloride/Sodium Chloride (1/2 NS + KCl 20 Meq) 1,000 ml @ 100 mls/hr Q10H IV Last administered on 01/19/17 11:29; Admin Dose 100 MLS/HR; Start at 21:30 Metoprolol Tartrate (Lopressor) 5 mg Q4 PRN IV NOTE Last administered on 09:14; Admin Dose 5 MG; Start 01/17/17 at 00:30 Insulin Aspart (Novolog Insulin Pen) NOVOLOG *MILD* ALGORI... Q4 SC ; Start at 13:00 Miscellaneous Information 1 ea NOTE XX ; Start 01/17/17 at 10:00 Glucose (Glutose) 15 gm Q15M PRN PO DECREASED GLUCOSE; Start 01/17/17 at 10:00 Glucose (Glutose) 22.5 gm Q15M PRN PO DECREASED GLUCOSE; Start 01/17/17 at 10: 00 Dextrose (D50w Syringe) 25 ml Q15M PRN IV DECREASED GLUCOSE; Start 01/17/17 at 10:00 Dextrose (D50w Syringe) 50 ml Q15M PRN IV DECREASED GLUCOSE; Start 01/17/17 at 10:00 Glucagon (Glucagen) 1 mg Q15M PRN IM DECREASED GLUCOSE; Start 01/17/17 at 10:00 Glucose (Glutose) 15 gm Q15M PRN BUCCAL DECREASED GLUCOSE; Start 01/17/17 at 10 :00 Collagenase 1 applic 1 applic DAILY TOP Last administered on 01/19/17 09:24; Admin Dose 1 APPLIC; Start 01/17/17 at 21:00 Meropenem/Sodium Chloride 50 ml @ 100 mls/hr Q12 IVPB Last administered on 09:23; Admin Dose 100 MLS/HR; Start 01/18/17 at 21:00 Multivitamins 10 ml/Thiamine HCl 100 mg/Folic Acid 1 mg/Magnesium Sulfate 2 gm/ Sodium Chloride 1,015.2 ml @ 125 mls/ hr DAILY@09 IVPB Last administered on 11:33; Admin Dose 125 MLS/HR; Start 01/18/17 at 14:45 Linezolid (Zyvox 600mg/D5W (Pmx)) 300 ml @ 300 mls/hr Q12 IVPB Last administered on 01/19/17 09:23; Admin Dose 300 MLS/HR; Start 01/18/17 at 21:00 MINOO REY 18, 2017 13:33
[2017-01-19 15:09] LABS: ALBUMIN 3.3 g/dl (3.3-4.9); ALBUMIN/GLOBULIN RATIO 0.94; CALCIUM 9.4 mg/dl (8.4-10.2); CREATININE 1.9 mg/dl (0.44-1.00); POTASSIUM 4.5 mmol/L (3.5-5.1); TOTAL PROTEIN 6.8 g/dl (6.1-8.1)
[2017-01-19 15:16] LABS: COMPLEMENT C3 105 mg/dl (88-165); COMPLEMENT C4 31 mg/dl (14-44)
[2017-01-19 17:06] LABS: ADD UMIC YES; UR ASCORBIC ACID NEGATIVE (NEGATIVE); UR BILIRUBIN (Dip) NEGATIVE (NEGATIVE); UR BLOOD (Dip) 1+ mg/dL (NEGATIVE); UR CLARITY CLEAR (CLEAR); UR COLOR STRAW (YELLOW); UR GLUCOSE (Dip) NEGATIVE (NEGATIVE); UR KETONES (Dip) TRACE mg/dL (NEGATIVE); UR LEUKOCYTE ESTERASE (Dip) NEGATIVE Leu/ul (NEGATIVE); UR NITRITE (Dip) NEGATIVE (NEGATIVE); UR RBC 0 /HPF (0-5); UR SPECIFIC GRAVITY (Dip) 1.006 (1.003-1.030); UR TOTAL PROTEIN (Dip) NEGATIVE (NEGATIVE); UR UROBILINOGEN (Dip) NEGATIVE (NEGATIVE)
--- NOTE | 2017-01-19 17:34 | RADRPT ---
Vent Rate: 121 bpm RR Interval: 0 msec PA Interval: 0 msec QRS Duration: 64 msec QT Interval: 336 msec QTC Interval: 477 msec P-R-T [place]: 0 - 26 - -75 degrees Atrial fibrillation with rapid ventricular response with premature ventricular or aberrantly conducted complexes T wave abnormality, consider anterior ischemia or digitalis effect Abnormal ECG Electronically Signed By: Jay Armenta [id number]
[2017-01-19 17:56] LABS: CSF COLOR COLORLESS; CSF#TUBE COUNT TUBE#4; CSF#TUBES REC'D 4
--- NOTE | 2017-01-19 18:26 | RADRPT ---
PROCEDURE: Fluoroscopic guided lumbar puncture. CLINICAL INDICATION: Headache and altered level of consciousness. TECHNIQUE: Prior to the procedure, informed consent was obtained. Risks including bleeding and in fection were explained to the patient. The patient understood and was willing to proceed. A proced ural pause was performed. The patient's name, date of , and procedure to be performed were karson ified. Using local anesthetic, sterile technique, and fluoroscopic guidance, a 22-gauge spinal needle was a dvanced into the thecal sac at the L5-S1 level. Opening pressure was 5 cm of water. 6 mL of clear cerebrospinal fluid was aspirated and sent for laboratory analysis. The needle was removed. A dres sing was applied. The patient tolerated the procedure well. A total of 0.1 minutes of fluoroscopy time was used. COMPARISON: None. FINDINGS: Images demonstrate the needle at the L5-S1 level in the thecal sac. IMPRESSION: Satisfactory fluoroscopic guided lumbar puncture. The opening pressure was 10 cm of water. RPTAT: QQ .Catrachito Small MD, Date Time Electronically viewed and signed by .Catrachito Small MD, on 01/19/2017 17:05 .R/
[2017-01-19 18:41] LABS: ANA SCREEN POSITIVE (NEGATIVE)
--- NOTE | 2017-01-19 18:49 | CONS ---
GIRISH SCHMITZ [employer] 01/19/17 1849: Date/Time of Note Date/Time of Note DATE: 01/19/17 TIME: 18:44 Assessment/Plan Assessment/Plan Chief Complaint/Hosp Course assessment/impression: - acute encephalopathy r/o viral meningitis; less concern for bacterial meningitis now that final blood cultures grew CoNS instead of S. aureus - Bacteremia due to CoNS, ?contaminant. Transthoracic echo on 01/16/2017 did not reveal valvular vegetation - h/o CVA. Per Pt's daughter in law, Pt did not turn encephalopathic after her last CVA episodes - MARIELA likely due to vanco toxicity - A fib (coumadin held for LP) - h/o DVT - h/o LLE ischemia s/p thrombolysis and subsequent open thrombectomy and fasciotomy at [facility] 09/2015 - h/o rheumatic heart disease - h/o thrombus on DEBBIE per records from [facility] recommendations: - pending results: blood (crypto antigen, cocci serology, West Nile virus serology and PCR, urine histoplasma antigen), repeat blood cultures (negative to date) - follow up results of LP - recommend transesophageal echo to r/o valvular vegetation - continue empiric treatment for meningitis: renally dosed meropenem, IV linezolid. Hold acyclovir because of MARIELA. Will restart at renal dose if HSV encephalitis is ruled in. - droplet precautions until communicable bacterial meningitis is ruled out management d/w Pt's son Juan and his , Pt's , Britney INFANTE, and Dr. Carbajal and later with Dr. Lozano Critical care time spent including extensive d/w Pt's son and his with multiple questions answered: 60 min Problems: Consultation Date/Type/Reason Admit Date/Time Jan 16, 2017 at 15:19 Initial Consult Date 01/17/17 Type of Consultation: Infectious Disease Referring Provider: ROXANA TORO MD 24 HR Interval Summary Free Text/Dictation Blood cultures previously reported as S. aureus, but final cultures reveal CoNS. Pt minimally improved per family as she is moving all extremities non- purposefully. Neuro status essentially unchanged; LP done this afternoon per d/w nursing staff. EEG "normal" per d/w Dr. Lozano. Subjective hx not possible: pt non-verbal Exam/Review of Systems Vital Signs Vitals Vital Signs Date Time Temp Pulse Resp B/P Pulse Ox O2 Delivery O2 Flow Rate FiO2 01/19/17 18:00 93 24 113/83 98 01/19/17 16:00 98.2 01/19/17 09:00 Room Air 01/18/17 20:22 1.0 Intake and Output 01/18/17 01/18/17 01/19/17 15:00 23:00 07:00 Intake Total 800 ml 1200 ml 825 ml Output Total 750 ml 690 ml 500 ml Balance 50 ml 510 ml 325 ml Exam Constitutional: non-verbal, other (laying in bed in NAD), well developed Head: atraumatic, normocephalic Eyes: nl sclera, other (pupils equal, appears fixed) Respiratory: clear to auscultation, normal air movement Cardiovascular: irregular rhythm Gastrointestinal: non-tender, soft Genitourinary - Female: other (Lees catheter intact) Extremities: normal pulses, other (LLE incisional scar well healed), No edema Neurological: unresponsive Skin: nl turgor, other (left heel eschar noted) Results Result Diagram: 01/18/17 0620 01/19/17 1430 Results 24 hrs Laboratory Tests Test 01/18/17 21:54 01/19/17 01:24 01/19/17 05:19 01/19/17 05:20 Bedside Glucose 94 132 96 Urine Osmolality 268 Urine Random Sodium 109 H Test 01/19/17 05:50 01/19/17 05:51 01/19/17 06:00 01/19/17 09:29 Sodium Level 141 Potassium Level 4.6 Chloride Level 107 Carbon Dioxide Level 20 L Anion Gap 19 H Blood Urea Nitrogen 19 Creatinine 2.02 H Glucose Level 96 Calcium Level 9.4 Phosphorus Level 3.7 Total Bilirubin 1.0 Direct Bilirubin 0.00 Indirect Bilirubin 1.0 Aspartate Amino Transf (AST/SGOT) 45 Alanine Aminotransferase (ALT/SGPT) 82 H Alkaline Phosphatase 74 Total Protein 6.4 Albumin 3.2 L Globulin 3.20 Albumin/Globulin Ratio 1.00 Random Vancomycin Level 20.1 Prothrombin Time 17.0 #H Prothrombin Time Ratio 1.3 INR International Normalized Ratio 1.38 Hemoglobin A1c 6.3 H Bedside Glucose 76 Test 01/19/17 12:24 01/19/17 14:20 01/19/17 14:30 01/19/17 16:02 Bedside Glucose 100 Urine Color STRAW Urine Clarity CLEAR Urine pH 7.0 Urine Specific [place] 1.006 Urine Ketones TRACE A Urine Nitrite NEGATIVE Urine Bilirubin NEGATIVE Urine Urobilinogen NEGATIVE Urine Leukocyte Esterase NEGATIVE Urine Microscopic RBC 0 Urine Microscopic WBC 0 Urine Hemoglobin 1+ H Urine Glucose NEGATIVE Urine Total Protein NEGATIVE Sodium Level 141 Potassium Level 4.5 Chloride Level 107 Carbon Dioxide Level 19 L Anion Gap 20 H Blood Urea Nitrogen 19 Creatinine 1.90 H Glucose Level 89 Calcium Level 9.4 Total Bilirubin 1.0 Direct Bilirubin 0.00 Indirect Bilirubin 1.0 Aspartate Amino Transf (AST/SGOT) 38 Alanine Aminotransferase (ALT/SGPT) 83 H Alkaline Phosphatase 80 Total Protein 6.8 Albumin 3.3 Globulin 3.50 H Albumin/Globulin Ratio 0.94 Complement C3 105 Complement C4 31 CSF Tubes Submitted 4 CSF Volume 6.0 CSF Appearance CLEAR CSF Color COLORLESS CSF WBC 3 CSF RBC 0 CSF Cell Count Tube # TUBE#4 CSF Total Cells Counted CSF Neutrophils % CSF Lymphocytes % CSF Monocytes % CSF Crenated Cells Test 01/19/17 17:52 Bedside Glucose 88 Medications Medications Current Medications Levetiracetam 100 ml @ 400 mls/hr Q12 IVPB Last administered on 01/19/17 09: 23; Admin Dose 400 MLS/HR; Start 01/17/17 at 09:00 Potassium Chloride/Sodium Chloride (1/2 NS + KCl 20 Meq) 1,000 ml @ 100 mls/hr Q10H IV Last administered on 01/19/17 11:29; Admin Dose 100 MLS/HR; Start at 21:30 Metoprolol Tartrate (Lopressor) 5 mg Q4 PRN IV NOTE Last administered on 09:14; Admin Dose 5 MG; Start 01/17/17 at 00:30 Insulin Aspart (Novolog Insulin Pen) NOVOLOG *MILD* ALGORI... Q4 SC ; Start at 13:00 Miscellaneous Information 1 ea NOTE XX ; Start 01/17/17 at 10:00 Glucose (Glutose) 15 gm Q15M PRN PO DECREASED GLUCOSE; Start 01/17/17 at 10:00 Glucose (Glutose) 22.5 gm Q15M PRN PO DECREASED GLUCOSE; Start 01/17/17 at 10: 00 Dextrose (D50w Syringe) 25 ml Q15M PRN IV DECREASED GLUCOSE; Start 01/17/17 at 10:00 Dextrose (D50w Syringe) 50 ml Q15M PRN IV DECREASED GLUCOSE; Start 01/17/17 at 10:00 Glucagon (Glucagen) 1 mg Q15M PRN IM DECREASED GLUCOSE; Start 01/17/17 at 10:00 Glucose (Glutose) 15 gm Q15M PRN BUCCAL DECREASED GLUCOSE; Start 01/17/17 at 10 :00 Collagenase 1 applic 1 applic DAILY TOP Last administered on 01/19/17 09:24; Admin Dose 1 APPLIC; Start 01/17/17 at 21:00 Meropenem/Sodium Chloride 50 ml @ 100 mls/hr Q12 IVPB Last administered on 09:23; Admin Dose 100 MLS/HR; Start 01/18/17 at 21:00 Multivitamins 10 ml/Thiamine HCl 100 mg/Folic Acid 1 mg/Magnesium Sulfate 2 gm/ Sodium Chloride 1,015.2 ml @ 125 mls/ hr DAILY@09 IVPB Last administered on 11:33; Admin Dose 125 MLS/HR; Start 01/18/17 at 14:45 Linezolid (Zyvox 600mg/D5W (Pmx)) 300 ml @ 300 mls/hr Q12 IVPB Last administered on 01/19/17 09:23; Admin Dose 300 MLS/HR; Start 01/18/17 at 21:00 TYE CARBAJAL M.D. 01/20/17 1035: Assessment/Plan Assessment/Plan Additional Assessment/Plan Raven attestation: I discussed the management with LUNA Schmitz and agree with above Exam/Review of Systems Results Result Diagram: 01/18/17 0620 01/19/17 1430 GIRISH SCHMITZ NP Jan 19, 2017 18:49 TYE CARBAJAL M.D. Jan 20, 2017 10:35
[2017-01-19 19:03] LABS: GLUCOSE,CSF 53 mg/dl (50-80)
[2017-01-20] VITALS (37 sets, daily range): BP systolic 90–136; BP diastolic 40–104; PULSE 74–154; RESP 15–32
--- NOTE | 2017-01-20 00:08 | RADRPT ---
PROCEDURE: MRI Brain without contrast. CLINICAL INDICATION: Acute loss of consciousness TECHNIQUE: An MRI of the brain was performed on a high resolution hi-definition 3.0 Celi MRI scan ner utilizing the following sequences: Sagittal and axial T1 weighted, axial T2 weighted, sagittal T 2 FLAIR axial diffusion weighted with ADC mapping, coronal GRE, and axial FLAIR. COMPARISON: MRI dated 01/16/2017 FINDINGS: The scalp and calvarium are normal. The paranasal sinuses, orbits, and bilateral mastoid air cells a re normal. No extra-axial fluid collections are present. The ventricles and sulci are age appropria te. Mild diffuse volume loss is present. No evidence of intracranial hemorrhage, mass effect or midline shift is present. Multiple punctate foci of hyperintensity are noted on FLAIR and T2-weighted sequences in the bilateral subcortical whi te matter, bilateral centrum semiovale and bilateral periventricular white matter compatible with mi ld chronic microvascular ischemic disease. When compared with prior MRI, interval increase in the F LAIR and T2 hyperintensity is now noted on in the bilateral caroline, left greater than right cerebral p eduncle, periaqueductal yip, extending superiorly into the bilateral right greater than left medial thalami. On diffusion weighted sequences, interval extension of the previously described restricte d diffusion is noted involving the caroline, left greater than right cerebral peduncle, periaqueductal g reat, and extension over larger area of the right anterior medial thalamus when compared to the left thalamus. The appearance of involvement in the mamillary bodies are suggested.No hypointense signal abnormalities are seen on the GRE images to suggest the presence of blood degradation product s. Normal flow voids are visible in the proximal intracranial arteries and dural sinuses, indica ting patency. IMPRESSION: 1. Extension of previously described right greater than left medial thalamic infarcts with involvem ent of the bilateral cerebral peduncles, caroline, and periaqueductal midbrain. Metabolic etiologies blood ch as Wernicke's Encephalopathy, , osmotic demyelination, infectious or neoplastic etiologies are co nsiderations. Consider imaging with contrast with improvement of patient's GFR. 2. No evidence for acute hemorrhage, herniation or hydrocephalous. A call report was made to patient's ICU NURSE, Tiffanie Moon, at 01/19/2017 11:56:44 PM following the completion of the examination by the undersigned. RPTAT: [facility] .Dyan Granados MD, MD Date Time Electronically viewed and signed by .Dyan Granados MD, MD on 01/20/2017 00:07 .C/
[2017-01-20] MEDS: INSULIN ASPART [NOVOLOG] 3 ML PEN SC SCH ×6 (01:00→21:00)
[2017-01-20] MEDS: 1/2 NS + KCL 20 MEQ 1,000 ML IV SCH ×2 (05:30→18:45)
[2017-01-20 06:06] LABS: ADD SCAN DIFF NO
[2017-01-20 06:18] LABS: BASOPHIL # 0.1 10^3/ul (0.0-0.1); BASOPHILS % 0.8 % (0.0-2.0); EOSINOPHILS # 0.3 10^3/ul (0.0-0.5); EOSINOPHILS % 4.2 % (0.0-7.0); HEMATOCRIT 41.3 % (37.0-47.0); HEMOGLOBIN 13.1 g/dl (12.0-16.0); LYMPHOCYTES % 12.6 % (15.0-51.0); MEAN CORPUSCULAR HGB CONC 31.7 g/dl (32.0-37.0); MEAN CORPUSCULAR VOLUME 82.1 fl (82.0-101.0); MEAN PLATELET VOLUME 12.5 fl (7.4-10.4); MONOCYTE # 0.5 10^3/ul (0.3-0.9); MONOCYTES % 6.4 % (0.0-11.0); NEUTROPHIL # 5.9 10^3/ul (1.6-7.5); NEUTROPHILS % 75.6 % (39.0-77.0); PLATELET COUNT 290 10^3/UL (140-415); RED BLOOD COUNT 5.03 10^6/ul (4.20-5.40); RED CELL DISTRIBUTION WIDTH 16.8 % (11.5-14.5); WHITE BLOOD COUNT 7.8 10^3/ul (4.8-10.8)
[2017-01-20] MEDS: MEROPENEM 1 GM/50ML(PMX) 50 ML IVPB SCH ×2 (08:40→21:27)
[2017-01-20] MEDS: MULTIVITAMINS 10 ML, THIAMINE 100 MG, FOLIC ACID 1 MG, MAGNESIUM SULFATE 2 GM in SOD CH... IVPB SCH (08:40)
[2017-01-20] MEDS: LINEZOLID 600 MG/D5W (PMX) 300 ML IVPB SCH ×2 (08:41→21:59)
[2017-01-20] MEDS: LEVETIRACETAM 500 MG (PMX) 100 ML IVPB SCH ×2 (08:41→20:55)
[2017-01-20] MEDS: COLLAGENASE 30 GM TUBE TOP SCH (08:42)
--- NOTE | 2017-01-20 10:47 | CONS ---
Date/Time of Note Date/Time of Note DATE: 01/20/17 TIME: 10:36 Assessment/Plan Assessment/Plan Chief Complaint/Hosp Course assessment/impression: - acute encephalopathy of unclear etiology. CSF from 01/19/2017 fairly unremarkable: WBC=3, RBC=0, glu 53, pro=61 - Bacteremia due to CoNS, probable contaminant. Transthoracic echo on 01/16/2017 did not reveal valvular vegetation - h/o CVA. 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 encephalitis meningitis panel, herpes and West Nile virus were not done, ?lack of sample) - continue empiric renally dosed meropenem and IV linezolid for sepsis; if WBC level remains stable, will plan of discontinuing them in 1-2 days - will d/c droplet precautions management d/w Pt's RN The critical care time that I spent to the [facility] for this Pt was from 0920 to 1000 Problems: Consultation Date/Type/Reason Admit Date/Time Jan 16, 2017 at 15:19 Initial Consult Date 01/17/17 Type of Consultation: Infectious Disease Referring Provider: ROXANA TORO MD 24 HR Interval Summary Subjective hx not possible: pt non-verbal Exam/Review of Systems Vital Signs Vitals Vital Signs Date Time Temp Pulse Resp B/P Pulse Ox O2 Delivery O2 Flow Rate FiO2 01/20/17 08:45 92 20 98 01/20/17 08:30 100/64 01/20/17 07:30 98.3 01/19/17 09:00 Room Air 01/18/17 20:22 1.0 Intake and Output 01/19/17 01/19/17 01/20/17 15:00 23:00 07:00 Intake Total 1000 ml 1175 ml 700 ml Output Total 720 ml 650 ml 565 ml Balance 280 ml 525 ml 135 ml Exam Constitutional: non-verbal Psych: confusion Head: atraumatic, normocephalic Eyes: nl conjunctiva, other (pupil is unresponsive to light b/l) ENMT: nl external ears & nose Respiratory: clear to auscultation, normal air movement Cardiovascular: nl pulses, regular rate and rhythm Gastrointestinal: non-tender, soft Musculoskeletal: nl extremities to inspection Extremities: No edema Neurological: lethargic Skin: nl turgor Results Result Diagram: 01/20/17 0550 01/19/17 1430 Results 24 hrs Laboratory Tests Test 01/19/17 12:24 01/19/17 14:20 01/19/17 14:30 01/19/17 16:02 Bedside Glucose 100 Urine Color STRAW Urine Clarity CLEAR Urine pH 7.0 Urine Specific [place] 1.006 Urine Ketones TRACE A Urine Nitrite NEGATIVE Urine Bilirubin NEGATIVE Urine Urobilinogen NEGATIVE Urine Leukocyte Esterase NEGATIVE Urine Microscopic RBC 0 Urine Microscopic WBC 0 Urine Hemoglobin 1+ H Urine Glucose NEGATIVE Urine Total Protein NEGATIVE Sodium Level 141 Potassium Level 4.5 Chloride Level 107 Carbon Dioxide Level 19 L Anion Gap 20 H Blood Urea Nitrogen 19 Creatinine 1.90 H Glucose Level 89 Calcium Level 9.4 Total Bilirubin 1.0 Direct Bilirubin 0.00 Indirect Bilirubin 1.0 Aspartate Amino Transf (AST/SGOT) 38 Alanine Aminotransferase (ALT/SGPT) 83 H Alkaline Phosphatase 80 Total Protein 6.8 Albumin 3.3 Globulin 3.50 H Albumin/Globulin Ratio 0.94 Complement C3 105 Complement C4 31 CSF Tubes Submitted 4 CSF Volume 6.0 CSF Appearance CLEAR CSF Color COLORLESS CSF WBC 3 CSF RBC 0 CSF Cell Count Tube # TUBE#4 CSF Total Cells Counted CSF Neutrophils % CSF Lymphocytes % CSF Monocytes % CSF Crenated Cells CSF Glucose 53 CSF Total Protein 61 H Test 01/19/17 17:52 01/19/17 22:05 01/20/17 00:43 01/20/17 05:50 Bedside Glucose 88 83 77 White Blood Count 7.8 # Red Blood Count 5.03 Hemoglobin 13.1 Hematocrit 41.3 Mean Corpuscular Volume 82.1 Mean Corpuscular Hemoglobin 26.0 L Mean Corpuscular Hemoglobin Concent 31.7 L Red Cell Distribution Width 16.8 H Platelet Count 290 Mean Platelet Volume 12.5 H Neutrophils % 75.6 Lymphocytes % 12.6 L Monocytes % 6.4 Eosinophils % 4.2 Basophils % 0.8 Nucleated Red Blood Cells % 0.0 Neutrophils # 5.9 Lymphocytes # 1.0 Monocytes # 0.5 Eosinophils # 0.3 Basophils # 0.1 Nucleated Red Blood Cells # 0.0 Test 01/20/17 06:03 01/20/17 08:38 Bedside Glucose 91 81 Medications Medications Current Medications Levetiracetam 100 ml @ 400 mls/hr Q12 IVPB Last administered on 01/20/17 08: 41; Admin Dose 400 MLS/HR; Start 01/17/17 at 09:00 Potassium Chloride/Sodium Chloride (1/2 NS + KCl 20 Meq) 1,000 ml @ 100 mls/hr Q10H IV Last administered on 01/20/17 05:30; Admin Dose 100 MLS/HR; Start at 21:30 Metoprolol Tartrate (Lopressor) 5 mg Q4 PRN IV NOTE Last administered on 09:14; Admin Dose 5 MG; Start 01/17/17 at 00:30 Insulin Aspart (Novolog Insulin Pen) NOVOLOG *MILD* ALGORI... Q4 SC ; Start at 13:00 Miscellaneous Information 1 ea NOTE XX ; Start 01/17/17 at 10:00 Glucose (Glutose) 15 gm Q15M PRN PO DECREASED GLUCOSE; Start 01/17/17 at 10:00 Glucose (Glutose) 22.5 gm Q15M PRN PO DECREASED GLUCOSE; Start 01/17/17 at 10: 00 Dextrose (D50w Syringe) 25 ml Q15M PRN IV DECREASED GLUCOSE; Start 01/17/17 at 10:00 Dextrose (D50w Syringe) 50 ml Q15M PRN IV DECREASED GLUCOSE; Start 01/17/17 at 10:00 Glucagon (Glucagen) 1 mg Q15M PRN IM DECREASED GLUCOSE; Start 01/17/17 at 10:00 Glucose (Glutose) 15 gm Q15M PRN BUCCAL DECREASED GLUCOSE; Start 01/17/17 at 10 :00 Collagenase 1 applic 1 applic DAILY TOP Last administered on 01/20/17 08:42; Admin Dose 1 APPLIC; Start 01/17/17 at 21:00 Meropenem/Sodium Chloride 50 ml @ 100 mls/hr Q12 IVPB Last administered on 08:40; Admin Dose 100 MLS/HR; Start 01/18/17 at 21:00 Multivitamins 10 ml/Thiamine HCl 100 mg/Folic Acid 1 mg/Magnesium Sulfate 2 gm/ Sodium Chloride 1,015.2 ml @ 125 mls/ hr DAILY@09 IVPB Last administered on 08:40; Admin Dose 125 MLS/HR; Start 01/18/17 at 14:45 Linezolid (Zyvox 600mg/D5W (Pmx)) 300 ml @ 300 mls/hr Q12 IVPB Last administered on 01/20/17 08:41; Admin Dose 300 MLS/HR; Start 01/18/17 at 21:00 TYE STYLES M.D. Jan 20, 2017 10:46
--- NOTE | 2017-01-20 11:09 | CONS ---
Date/Time of Note Date/Time of Note DATE: 01/20/17 TIME: 11:01 Assessment/Plan Assessment/Plan Chief Complaint/Hosp Course IMP: 1. AF-some mild RVR/Trop negative x 3 2.Hypotension-borderline 3.encephalopathy/ams 4.coagulopathy-now decreased with coumadin held 5. Acute Renal failure-? secondary to vanc 6.Leukocytosis 7. Cardiomyopathy-EF 45% Recc: -Tele -serial ecg's -Lovenox held for LP and PICC line now today. Resume after picc line placement -Continue keppra/abx's/acyclovir -Follow MS closely -F/U LP results -IVP PRN BB for HR control -IVP digoxin dose to improve HR Problems: Consultation Date/Type/Reason Admit Date/Time Jan 16, 2017 at 15:19 Initial Consult Date 01/17/17 Type of Consultation: cardiology Reason for Consultation atrial fibrillation Referring Provider: ROXANA TORO MD Exam/Review of Systems Vital Signs Vitals Vital Signs Date Time Temp Pulse Resp B/P Pulse Ox O2 Delivery O2 Flow Rate FiO2 01/20/17 08:45 92 20 98 01/20/17 08:30 100/64 01/20/17 07:30 98.3 01/19/17 09:00 Room Air 01/18/17 20:22 1.0 Intake and Output 01/19/17 01/19/17 01/20/17 15:00 23:00 07:00 Intake Total 1000 ml 1175 ml 700 ml Output Total 720 ml 650 ml 565 ml Balance 280 ml 525 ml 135 ml Exam Review of Systems: CONSTITUTIONAL: No fevers, chills. PULMONARY: No sob CARDIOVASCULAR: No chest pain/palpitations GASTROINTESTINAL: No nausea/vomiting. GENITOURINARY: No hematuria/dysuria. MUSCULOSKELETAL: No myagias/arthalgias. PSYCHIATRIC: The patient denies depression. NEUROLOGIC: non-responsive Constitutional: alert Psych: no complaints Head: normocephalic ENMT: mucosa pink and moist Neck: jvd (9 cm water), supple Respiratory: diminished breath sounds (at bases/B) Cardiovascular: regular rate and rhythm Gastrointestinal: non-tender, soft Musculoskeletal: muscle tone (normal) Extremities: edema (none) Neurological: other (No nfocal deficits) Results Result Diagram: 01/20/17 0550 01/19/17 1430 Results 24 hrs Laboratory Tests Test 01/19/17 12:24 01/19/17 14:20 01/19/17 14:30 01/19/17 16:02 Bedside Glucose 100 Urine Color STRAW Urine Clarity CLEAR Urine pH 7.0 Urine Specific [place] 1.006 Urine Ketones TRACE A Urine Nitrite NEGATIVE Urine Bilirubin NEGATIVE Urine Urobilinogen NEGATIVE Urine Leukocyte Esterase NEGATIVE Urine Microscopic RBC 0 Urine Microscopic WBC 0 Urine Hemoglobin 1+ H Urine Glucose NEGATIVE Urine Total Protein NEGATIVE Sodium Level 141 Potassium Level 4.5 Chloride Level 107 Carbon Dioxide Level 19 L Anion Gap 20 H Blood Urea Nitrogen 19 Creatinine 1.90 H Glucose Level 89 Calcium Level 9.4 Total Bilirubin 1.0 Direct Bilirubin 0.00 Indirect Bilirubin 1.0 Aspartate Amino Transf (AST/SGOT) 38 Alanine Aminotransferase (ALT/SGPT) 83 H Alkaline Phosphatase 80 Total Protein 6.8 Albumin 3.3 Globulin 3.50 H Albumin/Globulin Ratio 0.94 Complement C3 105 Complement C4 31 CSF Tubes Submitted 4 CSF Volume 6.0 CSF Appearance CLEAR CSF Color COLORLESS CSF WBC 3 CSF RBC 0 CSF Cell Count Tube # TUBE#4 CSF Total Cells Counted CSF Neutrophils % CSF Lymphocytes % CSF Monocytes % CSF Crenated Cells CSF Glucose 53 CSF Total Protein 61 H Test 01/19/17 17:52 01/19/17 22:05 01/20/17 00:43 01/20/17 05:50 Bedside Glucose 88 83 77 White Blood Count 7.8 # Red Blood Count 5.03 Hemoglobin 13.1 Hematocrit 41.3 Mean Corpuscular Volume 82.1 Mean Corpuscular Hemoglobin 26.0 L Mean Corpuscular Hemoglobin Concent 31.7 L Red Cell Distribution Width 16.8 H Platelet Count 290 Mean Platelet Volume 12.5 H Neutrophils % 75.6 Lymphocytes % 12.6 L Monocytes % 6.4 Eosinophils % 4.2 Basophils % 0.8 Nucleated Red Blood Cells % 0.0 Neutrophils # 5.9 Lymphocytes # 1.0 Monocytes # 0.5 Eosinophils # 0.3 Basophils # 0.1 Nucleated Red Blood Cells # 0.0 Test 01/20/17 06:03 01/20/17 08:38 Bedside Glucose 91 81 Medications Medications Current Medications Levetiracetam 100 ml @ 400 mls/hr Q12 IVPB Last administered on 01/20/17t 08: 41; Admin Dose 400 MLS/HR; Start 01/17/17 at 09:00 Potassium Chloride/Sodium Chloride (1/2 NS + KCl 20 Meq) 1,000 ml @ 100 mls/hr Q10H IV Last administered on 01/20/17 05:30; Admin Dose 100 MLS/HR; Start at 21:30 Metoprolol Tartrate (Lopressor) 5 mg Q4 PRN IV NOTE Last administered on 09:14; Admin Dose 5 MG; Start 01/17/17 at 00:30 Insulin Aspart (Novolog Insulin Pen) NOVOLOG *MILD* ALGORI... Q4 SC ; Start at 13:00 Miscellaneous Information 1 ea NOTE XX ; Start 01/17/17 at 10:00 Glucose (Glutose) 15 gm Q15M PRN PO DECREASED GLUCOSE; Start 01/17/17 at 10:00 Glucose (Glutose) 22.5 gm Q15M PRN PO DECREASED GLUCOSE; Start 01/17/17 at 10: 00 Dextrose (D50w Syringe) 25 ml Q15M PRN IV DECREASED GLUCOSE; Start 01/17/17 at 10:00 Dextrose (D50w Syringe) 50 ml Q15M PRN IV DECREASED GLUCOSE; Start 01/17/17 at 10:00 Glucagon (Glucagen) 1 mg Q15M PRN IM DECREASED GLUCOSE; Start 01/17/17 at 10:00 Glucose (Glutose) 15 gm Q15M PRN BUCCAL DECREASED GLUCOSE; Start 01/17/17 at 10 :00 Collagenase 1 applic 1 applic DAILY TOP Last administered on 01/20/17 08:42; Admin Dose 1 APPLIC; Start 01/17/17 at 21:00 Meropenem/Sodium Chloride 50 ml @ 100 mls/hr Q12 IVPB Last administered on 08:40; Admin Dose 100 MLS/HR; Start 01/18/17 at 21:00 Multivitamins 10 ml/Thiamine HCl 100 mg/Folic Acid 1 mg/Magnesium Sulfate 2 gm/ Sodium Chloride 1,015.2 ml @ 125 mls/ hr DAILY@09 IVPB Last administered on 08:40; Admin Dose 125 MLS/HR; Start 01/18/17 at 14:45 Linezolid (Zyvox 600mg/D5W (Pmx)) 300 ml @ 300 mls/hr Q12 IVPB Last administered on 01/20/17t 08:41; Admin Dose 300 MLS/HR; Start 01/18/17 at 21:00 MINOO REY Jan 20, 2017 11:09
[2017-01-20] MEDS ORDERED: DIGOXIN 500 MCG INJ IV ONE (11:30)
--- NOTE | 2017-01-20 11:32 | CONS ---
Date/Time of Note Date/Time of Note DATE: 01/20/17 TIME: 11:32 Assessment/Plan Assessment/Plan Additional Assessment/Plan (1) Anemia Comment: Hct stable at 39% (2) MARIELA (acute kidney injury) Status: Acute Comment: Ac renal failure improved though pt has CKD3 No further need for IV fluids (3) Altered level of consciousness Status: Acute further plans per Neuro Keppra Renal Function stable Cont current Rx and plan Consultation Date/Type/Reason Admit Date/Time Jan 16, 2017 at 15:19 Initial Consult Date 01/17/17 Type of Consultation: Renal Referring Provider: ROXANA TORO MD Exam/Review of Systems Vital Signs Vitals Vital Signs Date Time Temp Pulse Resp B/P Pulse Ox O2 Delivery O2 Flow Rate FiO2 01/20/17 10:45 86 23 98 01/20/17 10:30 111/73 01/20/17 07:30 98.3 01/19/17 09:00 Room Air 01/18/17 20:22 1.0 Intake and Output 01/19/17 01/19/17 01/20/17 15:00 23:00 07:00 Intake Total 1000 ml 1175 ml 700 ml Output Total 720 ml 650 ml 565 ml Balance 280 ml 525 ml 135 ml Exam Constitutional: No distress ENMT: mucosa pink and moist Respiratory: No labored breathing Gastrointestinal: soft Neurological: No lethargic Skin: No diaphoresis Results Result Diagram: 01/20/17 0550 01/19/17 1430 Results 24 hrs Laboratory Tests Test 01/19/17 12:24 01/19/17 14:20 01/19/17 14:30 01/19/17 16:02 Bedside Glucose 100 Urine Color STRAW Urine Clarity CLEAR Urine pH 7.0 Urine Specific [place] 1.006 Urine Ketones TRACE A Urine Nitrite NEGATIVE Urine Bilirubin NEGATIVE Urine Urobilinogen NEGATIVE Urine Leukocyte Esterase NEGATIVE Urine Microscopic RBC 0 Urine Microscopic WBC 0 Urine Hemoglobin 1+ H Urine Glucose NEGATIVE Urine Total Protein NEGATIVE Sodium Level 141 Potassium Level 4.5 Chloride Level 107 Carbon Dioxide Level 19 L Anion Gap 20 H Blood Urea Nitrogen 19 Creatinine 1.90 H Glucose Level 89 Calcium Level 9.4 Total Bilirubin 1.0 Direct Bilirubin 0.00 Indirect Bilirubin 1.0 Aspartate Amino Transf (AST/SGOT) 38 Alanine Aminotransferase (ALT/SGPT) 83 H Alkaline Phosphatase 80 Total Protein 6.8 Albumin 3.3 Globulin 3.50 H Albumin/Globulin Ratio 0.94 Complement C3 105 Complement C4 31 CSF Tubes Submitted 4 CSF Volume 6.0 CSF Appearance CLEAR CSF Color COLORLESS CSF WBC 3 CSF RBC 0 CSF Cell Count Tube # TUBE#4 CSF Total Cells Counted CSF Neutrophils % CSF Lymphocytes % CSF Monocytes % CSF Crenated Cells CSF Glucose 53 CSF Total Protein 61 H Test 01/19/17 17:52 01/19/17 22:05 01/20/17 00:43 01/20/17 05:50 Bedside Glucose 88 83 77 White Blood Count 7.8 # Red Blood Count 5.03 Hemoglobin 13.1 Hematocrit 41.3 Mean Corpuscular Volume 82.1 Mean Corpuscular Hemoglobin 26.0 L Mean Corpuscular Hemoglobin Concent 31.7 L Red Cell Distribution Width 16.8 H Platelet Count 290 Mean Platelet Volume 12.5 H Neutrophils % 75.6 Lymphocytes % 12.6 L Monocytes % 6.4 Eosinophils % 4.2 Basophils % 0.8 Nucleated Red Blood Cells % 0.0 Neutrophils # 5.9 Lymphocytes # 1.0 Monocytes # 0.5 Eosinophils # 0.3 Basophils # 0.1 Nucleated Red Blood Cells # 0.0 Test 01/20/17 06:03 01/20/17 08:38 Bedside Glucose 91 81 Medications Medications Current Medications Levetiracetam 100 ml @ 400 mls/hr Q12 IVPB Last administered on 01/20/17 08: 41; Admin Dose 400 MLS/HR; Start 01/17/17 at 09:00 Potassium Chloride/Sodium Chloride (1/2 NS + KCl 20 Meq) 1,000 ml @ 100 mls/hr Q10H IV Last administered on 01/20/17 05:30; Admin Dose 100 MLS/HR; Start at 21:30 Metoprolol Tartrate (Lopressor) 5 mg Q4 PRN IV NOTE Last administered on 09:14; Admin Dose 5 MG; Start 01/17/17 at 00:30 Insulin Aspart (Novolog Insulin Pen) NOVOLOG *MILD* ALGORI... Q4 SC ; Start at 13:00 Miscellaneous Information 1 ea NOTE XX ; Start 01/17/17 at 10:00 Glucose (Glutose) 15 gm Q15M PRN PO DECREASED GLUCOSE; Start 01/17/17 at 10:00 Glucose (Glutose) 22.5 gm Q15M PRN PO DECREASED GLUCOSE; Start 01/17/17 at 10: 00 Dextrose (D50w Syringe) 25 ml Q15M PRN IV DECREASED GLUCOSE; Start 01/17/17 at 10:00 Dextrose (D50w Syringe) 50 ml Q15M PRN IV DECREASED GLUCOSE; Start 01/17/17 at 10:00 Glucagon (Glucagen) 1 mg Q15M PRN IM DECREASED GLUCOSE; Start 01/17/17 at 10:00 Glucose (Glutose) 15 gm Q15M PRN BUCCAL DECREASED GLUCOSE; Start 01/17/17 at 10 :00 Collagenase 1 applic 1 applic DAILY TOP Last administered on 01/20/17 08:42; Admin Dose 1 APPLIC; Start 01/17/17 at 21:00 Meropenem/Sodium Chloride 50 ml @ 100 mls/hr Q12 IVPB Last administered on 08:40; Admin Dose 100 MLS/HR; Start 01/18/17 at 21:00 Multivitamins 10 ml/Thiamine HCl 100 mg/Folic Acid 1 mg/Magnesium Sulfate 2 gm/ Sodium Chloride 1,015.2 ml @ 125 mls/ hr DAILY@09 IVPB Last administered on 08:40; Admin Dose 125 MLS/HR; Start 01/18/17 at 14:45 Linezolid (Zyvox 600mg/D5W (Pmx)) 300 ml @ 300 mls/hr Q12 IVPB Last administered on 01/20/17 08:41; Admin Dose 300 MLS/HR; Start 01/18/17 at 21:00 Digoxin (Digoxin) 250 mcg NOW ONCE IV ; Start 01/20/17 at 11:30; Stop 01/20/17 at 11:31 MC SHARPE MD Jan 20, 2017 11:32
--- NOTE | 2017-01-20 12:09 | PN ---
Date/Time of Note Date/Time of Note DATE: 01/20/17 TIME: 12:05 Assessment/Plan VTE Prophylaxis VTE Prophylaxis Intervention: SCD's Lines/Catheters [facility] Type [facility]from [facility]): Peripheral IV Urinary Cath still in place: Yes Reason Cath still needed: urinary retention Assessment/Plan Chief Complaint/Hosp Course Slight improvement in neurological status patient try to mouth words in response to asking for her name, does not open eyes and does not follow any commands still, atrial fibrillation with heart rate ranges from 80-120, afebrile , status post LP. Assessment/Plan -Acute encephalopathy of unclear etiology, Dr. Lozano is following in neurology consultation. -Staph aureus bacteremia, concern for meningitis, continue droplet isolation, antibiotics per ID. Dr. Abarca is following infection disease consultation. -Atrial fibrillation with rapid ventricular response, currently rate is controlled. Dr. Armenta is following and cardiology consultation. -Acute kidney injury, Dr. Poole is following in nephrology consultation. -History of CVA -History of hyperlipidemia -Left lower extremity, status post vascular surgery. Further recommendations based on clinical course. Plan of care discussed with Dr. Valdovinos. Problems: Exam/Review of Systems Vital Signs Vitals Vital Signs Date Time Temp Pulse Resp B/P Pulse Ox O2 Delivery O2 Flow Rate FiO2 01/20/17 10:45 86 23 98 01/20/17 10:30 111/73 01/20/17 07:30 98.3 01/19/17 09:00 Room Air 01/18/17 20:22 1.0 Intake and Output 01/19/17 01/19/17 01/20/17 14:59 22:59 06:59 Intake Total 975 ml 1200 ml 700 ml Output Total 670 ml 675 ml 525 ml Balance 305 ml 525 ml 175 ml Exam Head: atraumatic, normocephalic Neck: supple Respiratory: clear to auscultation Cardiovascular: irregular rhythm Gastrointestinal: non-tender, soft Extremities: edema Neurological: Try to mouth words, did not follow commands. Skin: nl turgor Results Result Diagram: 01/20/17 0550 01/19/17 1430 Results 24 hrs Laboratory Tests Test 01/19/17 12:24 01/19/17 14:20 01/19/17 14:30 01/19/17 16:02 Bedside Glucose 100 Urine Color STRAW Urine Clarity CLEAR Urine pH 7.0 Urine Specific [place] 1.006 Urine Ketones TRACE A Urine Nitrite NEGATIVE Urine Bilirubin NEGATIVE Urine Urobilinogen NEGATIVE Urine Leukocyte Esterase NEGATIVE Urine Microscopic RBC 0 Urine Microscopic WBC 0 Urine Hemoglobin 1+ H Urine Glucose NEGATIVE Urine Total Protein NEGATIVE Sodium Level 141 Potassium Level 4.5 Chloride Level 107 Carbon Dioxide Level 19 L Anion Gap 20 H Blood Urea Nitrogen 19 Creatinine 1.90 H Glucose Level 89 Calcium Level 9.4 Total Bilirubin 1.0 Direct Bilirubin 0.00 Indirect Bilirubin 1.0 Aspartate Amino Transf (AST/SGOT) 38 Alanine Aminotransferase (ALT/SGPT) 83 H Alkaline Phosphatase 80 Total Protein 6.8 Albumin 3.3 Globulin 3.50 H Albumin/Globulin Ratio 0.94 Complement C3 105 Complement C4 31 CSF Tubes Submitted 4 CSF Volume 6.0 CSF Appearance CLEAR CSF Color COLORLESS CSF WBC 3 CSF RBC 0 CSF Cell Count Tube # TUBE#4 CSF Total Cells Counted CSF Neutrophils % CSF Lymphocytes % CSF Monocytes % CSF Crenated Cells CSF Glucose 53 CSF Total Protein 61 H Test 01/19/17 17:52 01/19/17 22:05 01/20/17 00:43 01/20/17 05:50 Bedside Glucose 88 83 77 White Blood Count 7.8 # Red Blood Count 5.03 Hemoglobin 13.1 Hematocrit 41.3 Mean Corpuscular Volume 82.1 Mean Corpuscular Hemoglobin 26.0 L Mean Corpuscular Hemoglobin Concent 31.7 L Red Cell Distribution Width 16.8 H Platelet Count 290 Mean Platelet Volume 12.5 H Neutrophils % 75.6 Lymphocytes % 12.6 L Monocytes % 6.4 Eosinophils % 4.2 Basophils % 0.8 Nucleated Red Blood Cells % 0.0 Neutrophils # 5.9 Lymphocytes # 1.0 Monocytes # 0.5 Eosinophils # 0.3 Basophils # 0.1 Nucleated Red Blood Cells # 0.0 Test 01/20/17 06:03 01/20/17 08:38 Bedside Glucose 91 81 Medications Medications Current Medications Levetiracetam 100 ml @ 400 mls/hr Q12 IVPB Last administered on 01/20/17 08: 41; Admin Dose 400 MLS/HR; Start 01/17/17 at 09:00 Potassium Chloride/Sodium Chloride (1/2 NS + KCl 20 Meq) 1,000 ml @ 100 mls/hr Q10H IV Last administered on 01/20/17 05:30; Admin Dose 100 MLS/HR; Start at 21:30 Metoprolol Tartrate (Lopressor) 5 mg Q4 PRN IV NOTE Last administered on 09:14; Admin Dose 5 MG; Start 01/17/17 at 00:30 Insulin Aspart (Novolog Insulin Pen) NOVOLOG *MILD* ALGORI... Q4 SC ; Start at 13:00 Miscellaneous Information 1 ea NOTE XX ; Start 01/17/17 at 10:00 Glucose (Glutose) 15 gm Q15M PRN PO DECREASED GLUCOSE; Start 01/17/17 at 10:00 Glucose (Glutose) 22.5 gm Q15M PRN PO DECREASED GLUCOSE; Start 01/17/17 at 10: 00 Dextrose (D50w Syringe) 25 ml Q15M PRN IV DECREASED GLUCOSE; Start 01/17/17 at 10:00 Dextrose (D50w Syringe) 50 ml Q15M PRN IV DECREASED GLUCOSE; Start 01/17/17 at 10:00 Glucagon (Glucagen) 1 mg Q15M PRN IM DECREASED GLUCOSE; Start 01/17/17 at 10:00 Glucose (Glutose) 15 gm Q15M PRN BUCCAL DECREASED GLUCOSE; Start 01/17/17 at 10 :00 Collagenase 1 applic 1 applic DAILY TOP Last administered on 01/20/17 08:42; Admin Dose 1 APPLIC; Start 01/17/17 at 21:00 Meropenem/Sodium Chloride 50 ml @ 100 mls/hr Q12 IVPB Last administered on 08:40; Admin Dose 100 MLS/HR; Start 01/18/17 at 21:00 Multivitamins 10 ml/Thiamine HCl 100 mg/Folic Acid 1 mg/Magnesium Sulfate 2 gm/ Sodium Chloride 1,015.2 ml @ 125 mls/ hr DAILY@09 IVPB Last administered on 08:40; Admin Dose 125 MLS/HR; Start 01/18/17 at 14:45 Linezolid (Zyvox 600mg/D5W (Pmx)) 300 ml @ 300 mls/hr Q12 IVPB Last administered on 01/20/17 08:41; Admin Dose 300 MLS/HR; Start 01/18/17 at 21:00 LAWRENCE PICKERING Jan 20, 2017 12:09
[2017-01-20 12:44] LABS: CALCIUM 9.7 mg/dl (8.4-10.2); CREATININE 1.72 mg/dl (0.44-1.00); POTASSIUM 4.6 mmol/L (3.5-5.1)
[2017-01-20 12:48] LABS: CREATINE KINASE < 20 IU/L (23-200)
[2017-01-20 12:53] LABS: CK-MB 0.37 ng/ml (0.0-2.4)
[2017-01-20 13:03] LABS: CRYPTOCOCCAL ANTIGEN - SOURCE Serum
--- NOTE | 2017-01-20 15:20 | RADRPT ---
PROCEDURE: US bilateral lower extremity veins. CLINICAL INDICATION: Bilateral leg pain and swelling. TECHNIQUE: Multiple longitudinal and transverse images of the bilateral lower extremity veins were obtained with yip scale and color Doppler imaging. The common femoral vein, femoral vein, and popl iteal vein were evaluated. 2D grayscale measurements with compression sonography, color Doppler, and pulsed Doppler with augmentation. COMPARISON: No prior studies are available for comparison. FINDINGS: The bilateral common femoral, femoral and popliteal veins are normally compressible throughout. Col or flow demonstrates normal filling of the vessels. Normal waveforms are visualized and there is no rmal response to augmentation. IMPRESSION: 1. No evidence of deep vein thrombosis involving either lower extremity. RPTAT: QQ .Catrachito Small MD, MD Date Time Electronically viewed and signed by .Catrachito Small MD, on 01/20/2017 15:20 .R/
--- NOTE | 2017-01-20 23:16 | RADRPT ---
PROCEDURE: US Carotids. CLINICAL INDICATION: Stroke TECHNIQUE: Multiple sonographic of the carotid bifurcation region and vertebral arteries were obta ined utilizing yip scale, duplex and color-flow imaging. COMPARISON: None available FINDINGS: RIGHT CAROTID MEASUREMENTS: PSV (cm/s)EDV (cm/s) Common Carotid [id number] Internal Carotid Artery - [id number] Internal Carotid Artery - [id number] Internal Carotid Artery - [id number] External Carotid Artery-75 Vertebral Artery-39 PSVR (ICA/CCA)1.1 LEFT CAROTID MEASUREMENTS: PSV (cm/s)EDV (cm/s) Common Carotid [id number] Internal Carotid Artery - [id number] Internal Carotid Artery - [id number] Internal Carotid Artery - [id number] External Carotid Artery-60 Vertebral Artery-45 PSVR (ICA/CCA)1.1 There is antegrade flow within the vertebral arteries bilaterally. IMPRESSION: 1. No evidence for hemodynamically significant carotid artery stenosis. 2. Antegrade flow in the vertebral arteries bilaterally. RPTAT:HJJR Physician Geronimo Date Time Electronically viewed and signed by Physician Geronimo on 01/20/2017 23:16 JR/
[2017-01-21] VITALS (24 sets, daily range): BP systolic 89–134; BP diastolic 35–88; PULSE 75–135; RESP 15–28
[2017-01-21] MEDS: INSULIN ASPART [NOVOLOG] 3 ML PEN SC SCH ×6 (01:00→20:45)
[2017-01-21] MEDS: 1/2 NS + KCL 20 MEQ 1,000 ML IV SCH ×3 (01:30→23:32)
[2017-01-21] MEDS: COLLAGENASE 30 GM TUBE TOP SCH (03:00)
[2017-01-21] MEDS: MULTIVITAMINS 10 ML, THIAMINE 100 MG, FOLIC ACID 1 MG, MAGNESIUM SULFATE 2 GM in SOD CH... IVPB SCH ×2 (05:20→09:00)
[2017-01-21 05:25] LABS: ADD SCAN DIFF NO
[2017-01-21 05:37] LABS: BASOPHIL # 0.1 10^3/ul (0.0-0.1); BASOPHILS % 0.7 % (0.0-2.0); EOSINOPHILS # 0.5 10^3/ul (0.0-0.5); EOSINOPHILS % 5.2 % (0.0-7.0); HEMATOCRIT 40.2 % (37.0-47.0); HEMOGLOBIN 12.6 g/dl (12.0-16.0); LYMPHOCYTES # 1.5 10^3/ul (0.8-2.9); LYMPHOCYTES % 16.8 % (15.0-51.0); MEAN CORPUSCULAR HEMOGLOBIN 25.9 pg (29.0-33.0); MEAN CORPUSCULAR HGB CONC 31.3 g/dl (32.0-37.0); MEAN CORPUSCULAR VOLUME 82.7 fl (82.0-101.0); MEAN PLATELET VOLUME 12.3 fl (7.4-10.4); MONOCYTE # 0.9 10^3/ul (0.3-0.9); MONOCYTES % 9.4 % (0.0-11.0); NEUTROPHIL # 6.2 10^3/ul (1.6-7.5); NEUTROPHILS % 67.6 % (39.0-77.0); PLATELET COUNT 354 10^3/UL (140-415); RED BLOOD COUNT 4.86 10^6/ul (4.20-5.40); RED CELL DISTRIBUTION WIDTH 16.6 % (11.5-14.5); WHITE BLOOD COUNT 9.2 10^3/ul (4.8-10.8)
[2017-01-21 05:57] LABS: CALCIUM 9.8 mg/dl (8.4-10.2); CREATININE 1.81 mg/dl (0.44-1.00); POTASSIUM 4.6 mmol/L (3.5-5.1)
[2017-01-21] MEDS: LEVETIRACETAM 500 MG (PMX) 100 ML IVPB SCH ×2 (08:59→20:46)
[2017-01-21] MEDS: ASPIRIN 81 MG TAB PO SCH (09:00)
[2017-01-21] MEDS: MEROPENEM 1 GM/50ML(PMX) 50 ML IVPB SCH (09:16)
[2017-01-21] MEDS: LINEZOLID 600 MG/D5W (PMX) 300 ML IVPB SCH (10:00)
--- NOTE | 2017-01-21 10:32 | PN ---
Date/Time of Note Date/Time of Note DATE: 01/21/17 TIME: 10:25 Assessment/Plan VTE Prophylaxis VTE Prophylaxis Intervention: other Lines/Catheters IV C[facility] Type (from [facility] Peripheral IV Urinary Cath still in place: Yes Reason Cath still needed: urinary retention Assessment/Plan Assessment/Plan -Acute encephalopathy of unclear etiology, Dr. Lozano is following in neurology consultation. - cont ICU monitoring - NPO -IVF -Aspiration precautions -seizure precautions -Possible seizure activity -Per neurology -Seizure precautions -Aspiration precautions -Staph aureus bacteremia, concern for meningitis, continue droplet isolation, antibiotics per ID. - per Dr. Abarca in infection disease consultation. -Atrial fibrillation with rapid ventricular response, currently rate is controlled. Dr. Armenta is following and cardiology consultation. -Acute kidney injury, Dr. Poole is following in nephrology consultation. -History of CVA -History of hyperlipidemia -Right lower extremity-colder than left lower extremity -arterial study - negative - /venous doppler- no dvt - Hx dvt - sp IVC filter surgery LLE - SP Cardiac cath - Hypertension-stable - Dysarthria Family meeting at 1630 today. Further recommendations based on clinical course. Plan of care discussed with Dr. Valdovinos. staff/director of casework services Subjective 24 Hr Interval Summary Free Text/Dictation lethargic, afebrile, afib controlled.Family meeting at 1630 today- staff. director of casework services. Subjective hx not possible: pt non-verbal Constitutional: requiring IVF, requiring O2 Exam/Review of Systems Vital Signs Vitals Vital Signs Date Time Temp Pulse Resp B/P Pulse Ox O2 Delivery O2 Flow Rate FiO2 01/21/17 08:00 98 01/21/17 06:00 23 108/68 97 Room Air 01/21/17 04:27 2.0 27 01/21/17 04:00 97.8 Intake and Output 01/20/17 01/20/17 01/21/17 15:00 23:00 07:00 Intake Total 1325 ml 1325 ml 565 ml Output Total 1165 ml 1325 ml 1100 ml Balance 160 ml 0 ml -535 ml Exam Constitutional: non-verbal Respiratory: clear to auscultation, normal air movement Cardiovascular: nl pulses, other (AFluttter) Gastrointestinal: non-tender, soft Musculoskeletal: other (LLE- SP IC filter) Extremities: edema (RLE) Neurological: lethargic Results Result Diagram: 01/21/17 0455 01/21/17 0455 Results 24 hrs Laboratory Tests Test 01/20/17 12:15 01/20/17 16:19 01/20/17 20:52 01/21/17 00:58 Sodium Level 140 Potassium Level 4.6 Chloride Level 108 Carbon Dioxide Level 18 L Anion Gap 19 H Blood Urea Nitrogen 19 Creatinine 1.72 H Glucose Level 93 Calcium Level 9.7 Creatine Kinase < 20 L Creatinine Kinase MB (Mass) 0.37 Bedside Glucose 87 86 85 Test 01/21/17 04:55 01/21/17 05:20 01/21/17 10:15 White Blood Count 9.2 Red Blood Count 4.86 Hemoglobin 12.6 Hematocrit 40.2 Mean Corpuscular Volume 82.7 Mean Corpuscular Hemoglobin 25.9 L Mean Corpuscular Hemoglobin Concent 31.3 L Red Cell Distribution Width 16.6 H Platelet Count 354 # Mean Platelet Volume 12.3 H Neutrophils % 67.6 Lymphocytes % 16.8 Monocytes % 9.4 Eosinophils % 5.2 Basophils % 0.7 Nucleated Red Blood Cells % 0.0 Neutrophils # 6.2 Lymphocytes # 1.5 Monocytes # 0.9 Eosinophils # 0.5 Basophils # 0.1 Nucleated Red Blood Cells # 0.0 Sodium Level 140 Potassium Level 4.6 Chloride Level 109 Carbon Dioxide Level 17 L Anion Gap 19 H Blood Urea Nitrogen 18 Creatinine 1.81 H Glucose Level 87 Calcium Level 9.8 Bedside Glucose 84 100 Medications Medications Current Medications Levetiracetam 100 ml @ 400 mls/hr Q12 IVPB Last administered on 01/21/17 08: 59; Admin Dose 400 MLS/HR; Start 01/17/17 at 09:00 Potassium Chloride/Sodium Chloride (1/2 NS + KCl 20 Meq) 1,000 ml @ 100 mls/hr Q10H IV Last administered on 01/20/17 18:45; Admin Dose 100 MLS/HR; Start at 21:30 Metoprolol Tartrate (Lopressor) 5 mg Q4 PRN IV NOTE Last administered on 09:14; Admin Dose 5 MG; Start 01/17/17 at 00:30 Insulin Aspart (Novolog Insulin Pen) NOVOLOG *MILD* ALGORI... Q4 SC ; Start at 13:00 Miscellaneous Information 1 ea NOTE XX ; Start 01/17/17 at 10:00 Glucose (Glutose) 15 gm Q15M PRN PO DECREASED GLUCOSE; Start 01/17/17 at 10:00 Glucose (Glutose) 22.5 gm Q15M PRN PO DECREASED GLUCOSE; Start 01/17/17 at 10: 00 Dextrose (D50w Syringe) 25 ml Q15M PRN IV DECREASED GLUCOSE; Start 01/17/17 at 10:00 Dextrose (D50w Syringe) 50 ml Q15M PRN IV DECREASED GLUCOSE; Start 01/17/17 at 10:00 Glucagon (Glucagen) 1 mg Q15M PRN IM DECREASED GLUCOSE; Start 01/17/17 at 10:00 Glucose (Glutose) 15 gm Q15M PRN BUCCAL DECREASED GLUCOSE; Start 01/17/17 at 10 :00 Collagenase 1 applic 1 applic DAILY TOP Last administered on 01/21/17 03:00; Admin Dose 1 APPLIC; Start 01/17/17 at 21:00 Meropenem/Sodium Chloride 50 ml @ 100 mls/hr Q12 IVPB Last administered on 09:16; Admin Dose 100 MLS/HR; Start 01/18/17 at 21:00 Multivitamins 10 ml/Thiamine HCl 100 mg/Folic Acid 1 mg/Magnesium Sulfate 2 gm/ Sodium Chloride 1,015.2 ml @ 125 mls/ hr DAILY@09 IVPB Last administered on 05:20; Admin Dose 125 MLS/HR; Start 01/18/17 at 14:45 Linezolid (Zyvox 600mg/D5W (Pmx)) 300 ml @ 300 mls/hr Q12 IVPB Last administered on 01/21/17 10:00; Admin Dose 300 MLS/HR; Start 01/18/17 at 21:00 Aspirin (Aspirin) 81 mg DAILY PO ; Start 01/21/17 at 09:00 ALEXIS NAJERA Jan 21, 2017 10:32
--- NOTE | 2017-01-21 11:29 | CONS ---
Date/Time of Note Date/Time of Note DATE: 01/21/17 TIME: 11:25 Assessment/Plan Assessment/Plan Chief Complaint/Hosp Course IMP: 1. AF-some mild RVR/Trop negative x 3 2.Hypotension-borderline 3.encephalopathy/ams 4.coagulopathy-now decreased with coumadin held 5. Acute Renal failure-? secondary to vanc 6.Leukocytosis 7. Cardiomyopathy-EF 45% Recc: -Tele -serial ecg's -Lovenox held for LP and question PICCline? which has not been scheduled and thus will resume lovenox at this time -Continue keppra/abx's/acyclovir -Follow MS closely -F/U LP results -IVP PRN BB for HR control s/p recent IVP dose of digoxin Problems: Consultation Date/Type/Reason Admit Date/Time Jan 16, 2017 at 15:19 Initial Consult Date 01/17/17 Type of Consultation: Cardiology Reason for Consultation AF Referring Provider: ROXANA TORO MD Exam/Review of Systems Vital Signs Vitals Vital Signs Date Time Temp Pulse Resp B/P Pulse Ox O2 Delivery O2 Flow Rate FiO2 01/21/17 08:00 98 01/21/17 06:00 23 108/68 97 Room Air 01/21/17 04:27 2.0 27 01/21/17 04:00 97.8 Intake and Output 01/20/17 01/20/17 01/21/17 15:00 23:00 07:00 Intake Total 1325 ml 1325 ml 565 ml Output Total 1165 ml 1325 ml 1100 ml Balance 160 ml 0 ml -535 ml Exam Review of Systems: CONSTITUTIONAL: No fevers, chills. PULMONARY: No sob CARDIOVASCULAR: No obvious chest pain/palpitations GASTROINTESTINAL: No nausea/vomiting. GENITOURINARY: No hematuria/dysuria. MUSCULOSKELETAL: No obvious myagias/arthalgias. PSYCHIATRIC: The patient denies depression. NEUROLOGIC: encephalopathic Constitutional: alert Psych: no complaints Head: normocephalic ENMT: mucosa pink and moist Neck: jvd (9 cm water), supple Respiratory: diminished breath sounds (at bases/B) Cardiovascular: regular rate and rhythm Gastrointestinal: non-tender, soft Musculoskeletal: muscle tone (normal) Extremities: edema (none) Neurological: other (No focal deficits) Results Result Diagram: 01/21/17 0455 01/21/17 0455 Results 24 hrs Laboratory Tests Test 01/20/17 12:15 01/20/17 16:19 01/20/17 20:52 01/21/17 00:58 Sodium Level 140 Potassium Level 4.6 Chloride Level 108 Carbon Dioxide Level 18 L Anion Gap 19 H Blood Urea Nitrogen 19 Creatinine 1.72 H Glucose Level 93 Calcium Level 9.7 Creatine Kinase < 20 L Creatinine Kinase MB (Mass) 0.37 Bedside Glucose 87 86 85 Test 01/21/17 04:55 01/21/17 05:20 01/21/17 10:15 White Blood Count 9.2 Red Blood Count 4.86 Hemoglobin 12.6 Hematocrit 40.2 Mean Corpuscular Volume 82.7 Mean Corpuscular Hemoglobin 25.9 L Mean Corpuscular Hemoglobin Concent 31.3 L Red Cell Distribution Width 16.6 H Platelet Count 354 # Mean Platelet Volume 12.3 H Neutrophils % 67.6 Lymphocytes % 16.8 Monocytes % 9.4 Eosinophils % 5.2 Basophils % 0.7 Nucleated Red Blood Cells % 0.0 Neutrophils # 6.2 Lymphocytes # 1.5 Monocytes # 0.9 Eosinophils # 0.5 Basophils # 0.1 Nucleated Red Blood Cells # 0.0 Sodium Level 140 Potassium Level 4.6 Chloride Level 109 Carbon Dioxide Level 17 L Anion Gap 19 H Blood Urea Nitrogen 18 Creatinine 1.81 H Glucose Level 87 Calcium Level 9.8 Bedside Glucose 84 100 Medications Medications Current Medications Levetiracetam 100 ml @ 400 mls/hr Q12 IVPB Last administered on 01/21/17 08: 59; Admin Dose 400 MLS/HR; Start 01/17/17 at 09:00 Potassium Chloride/Sodium Chloride (1/2 NS + KCl 20 Meq) 1,000 ml @ 100 mls/hr Q10H IV Last administered on 01/20/17 18:45; Admin Dose 100 MLS/HR; Start at 21:30 Metoprolol Tartrate (Lopressor) 5 mg Q4 PRN IV NOTE Last administered on 09:14; Admin Dose 5 MG; Start 01/17/17 at 00:30 Insulin Aspart (Novolog Insulin Pen) NOVOLOG *MILD* ALGORI... Q4 SC ; Start at 13:00 Miscellaneous Information 1 ea NOTE XX ; Start 01/17/17 at 10:00 Glucose (Glutose) 15 gm Q15M PRN PO DECREASED GLUCOSE; Start 01/17/17 at 10:00 Glucose (Glutose) 22.5 gm Q15M PRN PO DECREASED GLUCOSE; Start 01/17/17 at 10: 00 Dextrose (D50w Syringe) 25 ml Q15M PRN IV DECREASED GLUCOSE; Start 01/17/17 at 10:00 Dextrose (D50w Syringe) 50 ml Q15M PRN IV DECREASED GLUCOSE; Start 01/17/17 at 10:00 Glucagon (Glucagen) 1 mg Q15M PRN IM DECREASED GLUCOSE; Start 01/17/17 at 10:00 Glucose (Glutose) 15 gm Q15M PRN BUCCAL DECREASED GLUCOSE; Start 01/17/17 at 10 :00 Collagenase 1 applic 1 applic DAILY TOP Last administered on 01/21/17 03:00; Admin Dose 1 APPLIC; Start 01/17/17 at 21:00 Meropenem/Sodium Chloride 50 ml @ 100 mls/hr Q12 IVPB Last administered on 09:16; Admin Dose 100 MLS/HR; Start 01/18/17 at 21:00 Multivitamins 10 ml/Thiamine HCl 100 mg/Folic Acid 1 mg/Magnesium Sulfate 2 gm/ Sodium Chloride 1,015.2 ml @ 125 mls/ hr DAILY@09 IVPB Last administered on 05:20; Admin Dose 125 MLS/HR; Start 01/18/17 at 14:45 Linezolid (Zyvox 600mg/D5W (Pmx)) 300 ml @ 300 mls/hr Q12 IVPB Last administered on 01/21/17 10:00; Admin Dose 300 MLS/HR; Start 01/18/17 at 21:00 Aspirin (Aspirin) 81 mg DAILY PO ; Start 01/21/17 at 09:00 MINOO REY Jan 21, 2017 11:29
[2017-01-21] MEDS ORDERED: DIGOXIN 500 MCG INJ IV ONE (11:30)
[2017-01-21] MEDS ORDERED: ENOXAPARIN 60 MG/0.6 ML SYG SC ONE (11:30)
--- NOTE | 2017-01-21 13:38 | CONS ---
[employer] PROF[employer] REPRESENTATIVE 01/21/17 1338: Date/Time of Note Date/Time of Note DATE: 01/21/17 TIME: 13:37 Assessment/Plan Assessment/Plan Chief Complaint/Hosp Course assessment/impression: - acute encephalopathy of unclear etiology. CSF from 01/19/2017 fairly unremarkable: WBC=3, RBC=0, glu 53, pro=61 - bacteremia due to CoNS, probable contaminant. Transthoracic echo on 01/16/2017 did not reveal valvular vegetation - h/o CVA. 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 encephalitis meningitis panel, and West Nile virus were not done, ?lack of sample) - discontinue empiric renally dosed meropenem and IV linezolid Management and lengthy d/w pt's son Juan and his brother (and pt's friend on speaker phone) with multiple questions answered. Management also d/w CAN FILLING MACHINE OPERATOR Zeferino and Dr. Carbajal Critical care time spent: 55 min Problems: Consultation Date/Type/Reason Admit Date/Time Jan 16, 2017 at 15:19 Initial Consult Date 01/17/17 Type of Consultation: Infectious Disease Referring Provider: ROXANA TORO MD 24 HR Interval Summary Free Text/Dictation Clinically unchanged per d/w nursing. Pt able to make fist with left hand and move both feet on command; raises her eyebrows when asked to open eyes per d/w pt's sons. BUE venous doppler being done today. Pt's son Juan with multiple questions/concerns and reports he is meeting with Dr. Toro at 4:30pm. Subjective hx not possible: pt non-verbal Exam/Review of Systems Vital Signs Vitals Vital Signs Date Time Temp Pulse Resp B/P Pulse Ox O2 Delivery O2 Flow Rate FiO2 01/21/17 12:00 98.1 88 22 104/72 98 Room Air 01/21/17 04:27 2.0 27 Intake and Output 01/20/17 01/20/17 01/21/17 15:00 23:00 07:00 Intake Total 1325 ml 1325 ml 565 ml Output Total 1165 ml 1325 ml 1100 ml Balance 160 ml 0 ml -535 ml Exam Constitutional: non-verbal, other (laying in bed in NAD), well developed Head: atraumatic, normocephalic Eyes: nl sclera, other (pupils equal, non-reactive to light) Respiratory: clear to auscultation, normal air movement Cardiovascular: irregular rhythm Gastrointestinal: non-tender, soft Genitourinary - Female: other (Lees catheter intact) Extremities: normal pulses, other (LLE incisional scar well healed), No edema Neurological: raises eyebrows when asked to open eyes. Pt moved left foot non- purposefully. Skin: nl turgor, other (left heel eschar noted) Results Result Diagram: 01/21/17 0455 01/21/17 0455 Results 24 hrs Laboratory Tests Test 01/20/17 16:19 01/20/17 20:52 01/21/17 00:58 01/21/17 04:55 Bedside Glucose 87 86 85 White Blood Count 9.2 Red Blood Count 4.86 Hemoglobin 12.6 Hematocrit 40.2 Mean Corpuscular Volume 82.7 Mean Corpuscular Hemoglobin 25.9 L Mean Corpuscular Hemoglobin Concent 31.3 L Red Cell Distribution Width 16.6 H Platelet Count 354 # Mean Platelet Volume 12.3 H Neutrophils % 67.6 Lymphocytes % 16.8 Monocytes % 9.4 Eosinophils % 5.2 Basophils % 0.7 Nucleated Red Blood Cells % 0.0 Neutrophils # 6.2 Lymphocytes # 1.5 Monocytes # 0.9 Eosinophils # 0.5 Basophils # 0.1 Nucleated Red Blood Cells # 0.0 Sodium Level 140 Potassium Level 4.6 Chloride Level 109 Carbon Dioxide Level 17 L Anion Gap 19 H Blood Urea Nitrogen 18 Creatinine 1.81 H Glucose Level 87 Calcium Level 9.8 Test 01/21/17 05:20 01/21/17 10:15 01/21/17 13:05 Bedside Glucose 84 100 101 Medications Medications Current Medications Levetiracetam 100 ml @ 400 mls/hr Q12 IVPB Last administered on 01/21/17 08: 59; Admin Dose 400 MLS/HR; Start 01/17/17 at 09:00 Potassium Chloride/Sodium Chloride (1/2 NS + KCl 20 Meq) 1,000 ml @ 100 mls/hr Q10H IV Last administered on 01/20/17 18:45; Admin Dose 100 MLS/HR; Start at 21:30 Metoprolol Tartrate (Lopressor) 5 mg Q4 PRN IV NOTE Last administered on 09:14; Admin Dose 5 MG; Start 01/17/17 at 00:30 Insulin Aspart (Novolog Insulin Pen) NOVOLOG *MILD* ALGORI... Q4 SC ; Start at 13:00 Miscellaneous Information 1 ea NOTE XX ; Start 01/17/17 at 10:00 Glucose (Glutose) 15 gm Q15M PRN PO DECREASED GLUCOSE; Start 01/17/17 at 10:00 Glucose (Glutose) 22.5 gm Q15M PRN PO DECREASED GLUCOSE; Start 01/17/17 at 10: 00 Dextrose (D50w Syringe) 25 ml Q15M PRN IV DECREASED GLUCOSE; Start 01/17/17 at 10:00 Dextrose (D50w Syringe) 50 ml Q15M PRN IV DECREASED GLUCOSE; Start 01/17/17 at 10:00 Glucagon (Glucagen) 1 mg Q15M PRN IM DECREASED GLUCOSE; Start 01/17/17 at 10:00 Glucose (Glutose) 15 gm Q15M PRN BUCCAL DECREASED GLUCOSE; Start 01/17/17 at 10 :00 Collagenase 1 applic 1 applic DAILY TOP Last administered on 01/21/17 03:00; Admin Dose 1 APPLIC; Start 01/17/17 at 21:00 Meropenem/Sodium Chloride 50 ml @ 100 mls/hr Q12 IVPB Last administered on 09:16; Admin Dose 100 MLS/HR; Start 01/18/17 at 21:00 Multivitamins 10 ml/Thiamine HCl 100 mg/Folic Acid 1 mg/Magnesium Sulfate 2 gm/ Sodium Chloride 1,015.2 ml @ 125 mls/ hr DAILY@09 IVPB Last administered on 05:20; Admin Dose 125 MLS/HR; Start 01/18/17 at 14:45 Linezolid (Zyvox 600mg/D5W (Pmx)) 300 ml @ 300 mls/hr Q12 IVPB Last administered on 01/21/17t 10:00; Admin Dose 300 MLS/HR; Start 01/18/17 at 21:00 Aspirin (Aspirin) 81 mg DAILY PO ; Start 01/21/17 at 09:00 TYE CARBAJAL M.D. 01/22/17 0910: Assessment/Plan Assessment/Plan Additional Assessment/Plan Raven attestation: I discussed the management with LUNA Schmitz and agree with above Exam/Review of Systems Results Result Diagram: 01/21/17 0455 01/21/17 0455 GIRISH SCHMITZ NP Jan 21, 2017 13:38 TYE CARBAJAL M.D. Jan 22, 2017 09:10
--- NOTE | 2017-01-21 15:05 | RADRPT ---
PROCEDURE: US bilateral upper extremity veins. CLINICAL INDICATION: Bilateral upper extremity pain and swelling. TECHNIQUE: Multiple longitudinal and transverse images of the bilateral upper extremity venous sha e was obtained with yip scale and color Doppler imaging. COMPARISON: None available FINDINGS: The bilateral internal jugular, subclavian, axillary, brachial, basilic, radial, and ulnar veins are patent. There is normal flow with augmentation and compressibility throughout. There is no thrombu s or occlusion. There is thrombosis of the bilateral cephalic veins. IMPRESSION: 1. Thrombosis of the bilateral cephalic veins. 2. Otherwise normal venous system of both upper extremities. RPTAT: QQ .Catrachito Small MD, MD Date Time Electronically viewed and signed by .Catrachito Small MD, MD on 01/21/2017 15:05 .R/
[2017-01-21] MEDS ORDERED: LIDOCAINE 1% (MPF) 5 ML VIAL SC ONE (18:30)
[2017-01-21] MEDS ORDERED: ENOXAPARIN 100 MG/ML SYG SC SCH (21:00)
--- NOTE | 2017-01-21 21:22 | CONS ---
Date/Time of Note Date/Time of Note DATE: 01/21/17 TIME: 21:16 Assessment/Plan Assessment/Plan Chief Complaint/Hosp Course Renal santizo stable Problems: Additional Assessment/Plan Would ddc IVF & advance Tube feeding Cont'd Hospitalization Reason: Await neuro plans Consultation Date/Type/Reason Admit Date/Time Jan 16, 2017 at 15:19 Initial Consult Date 01/17/17 Type of Consultation: Renal Referring Provider: ROXANA TORO MD 24 HR Interval Summary Free Text/Dictation No change in mental status Exam/Review of Systems Vital Signs Vitals Vital Signs Date Time Temp Pulse Resp B/P Pulse Ox O2 Delivery O2 Flow Rate FiO2 01/21/17 20:15 100 21 01/21/17 18:00 85 21 127/69 Room Air 01/21/17 16:00 98.7 01/21/17 04:27 2.0 Intake and Output 01/20/17 01/20/17 01/21/17 15:00 23:00 07:00 Intake Total 1325 ml 1325 ml 565 ml Output Total 1165 ml 1325 ml 1100 ml Balance 160 ml 0 ml -535 ml Exam Neuro w/u neg so far Constitutional: non-verbal, well developed Psych: confusion, no complaints Head: atraumatic, normocephalic Eyes: EOMI, PERRL, nl conjunctiva, nl lids, nl sclera ENMT: nl external ears & nose, nl lips & teeth, nl nasal mucosa & septum Neck: non-tender, supple Respiratory: clear to auscultation, normal air movement Cardiovascular: nl pulses, regular rate and rhythm Gastrointestinal: nl liver, spleen, non-tender, soft Musculoskeletal: nl extremities to inspection, nl gait and stance Extremities: normal pulses Neurological: DIRECTOR OF CARDIOLOGY SERVICE LINE II-XII intact, nl mental status, nl speech, nl strength Skin: nl turgor, No rash or lesions Lymph: nl lymph nodes Additional Comments Family say pt is intermittently responding! Results SCreat has stabilized suggesting underlying CKD Result Diagram: 01/21/17 0455 01/21/17 0455 Results 24 hrs Laboratory Tests Test 01/21/17 00:58 01/21/17 04:55 01/21/17 05:20 01/21/17 10:15 Bedside Glucose 85 84 100 White Blood Count 9.2 Red Blood Count 4.86 Hemoglobin 12.6 Hematocrit 40.2 Mean Corpuscular Volume 82.7 Mean Corpuscular Hemoglobin 25.9 L Mean Corpuscular Hemoglobin Concent 31.3 L Red Cell Distribution Width 16.6 H Platelet Count 354 # Mean Platelet Volume 12.3 H Neutrophils % 67.6 Lymphocytes % 16.8 Monocytes % 9.4 Eosinophils % 5.2 Basophils % 0.7 Nucleated Red Blood Cells % 0.0 Neutrophils # 6.2 Lymphocytes # 1.5 Monocytes # 0.9 Eosinophils # 0.5 Basophils # 0.1 Nucleated Red Blood Cells # 0.0 Sodium Level 140 Potassium Level 4.6 Chloride Level 109 Carbon Dioxide Level 17 L Anion Gap 19 H Blood Urea Nitrogen 18 Creatinine 1.81 H Glucose Level 87 Calcium Level 9.8 Test 01/21/17 13:05 01/21/17 17:57 01/21/17 20:44 Bedside Glucose 101 89 77 Medications Medications Current Medications Levetiracetam 100 ml @ 400 mls/hr Q12 IVPB Last administered on 01/21/17 20: 46; Admin Dose 400 MLS/HR; Start 01/17/17 at 09:00 Potassium Chloride/Sodium Chloride (1/2 NS + KCl 20 Meq) 1,000 ml @ 60 mls/hr [id number] IV Last administered on 01/20/17 18:45; Admin Dose 100 MLS/HR; Start 01/16/17 at 21:30 Metoprolol Tartrate (Lopressor) 5 mg Q4 PRN IV NOTE Last administered on 09:14; Admin Dose 5 MG; Start 01/17/17 at 00:30 Insulin Aspart (Novolog Insulin Pen) NOVOLOG *MILD* ALGORI... Q4 SC ; Start at 13:00 Miscellaneous Information 1 ea NOTE XX ; Start 01/17/17 at 10:00 Glucose (Glutose) 15 gm Q15M PRN PO DECREASED GLUCOSE; Start 01/17/17 at 10:00 Glucose (Glutose) 22.5 gm Q15M PRN PO DECREASED GLUCOSE; Start 01/17/17 at 10: 00 Dextrose (D50w Syringe) 25 ml Q15M PRN IV DECREASED GLUCOSE; Start 01/17/17 at 10:00 Dextrose (D50w Syringe) 50 ml Q15M PRN IV DECREASED GLUCOSE; Start 01/17/17 at 10:00 Glucagon (Glucagen) 1 mg Q15M PRN IM DECREASED GLUCOSE; Start 01/17/17 at 10:00 Glucose (Glutose) 15 gm Q15M PRN BUCCAL DECREASED GLUCOSE; Start 01/17/17 at 10 :00 Collagenase 1 applic 1 applic DAILY TOP Last administered on 01/21/17 03:00; Admin Dose 1 APPLIC; Start 01/17/17 at 21:00 Multivitamins/ Thiamine HCl/ Folic Acid/ Magnesium Sulfate/ Sodium Chloride ( Mvi Adult/ Vitamin B1/Folic Acid/Magnesium Sulfate/NS) 1,015.2 ml @ 125 mls/ hr DAILY@09 IVPB Last administered on 01/21/17 05:20; Admin Dose 125 MLS/HR; Start 01/18/17 at 14:45 Aspirin (Aspirin) 81 mg DAILY PO ; Start 01/21/17 at 09:00 TALI CHIN MD Jan 21, 2017 21:22
--- NOTE | 2017-01-21 21:38 | RADRPT ---
PROCEDURE: XR Chest. CLINICAL INDICATION: Nasogastric tube placement. TECHNIQUE: Single frontal view of the chest was obtained COMPARISON: 01/16/2017 FINDINGS: Nasogastric tube in place with tip and side port in the mid stomach. Previously seen transcutaneous pacing pads are removed. Cardiomegaly. New mild patchy air space disease at mid lungs and lung bases. There is no pleural effusion or pneumothorax. IMPRESSION: 1. Nasogastric tube in place with tip and side port in the mid stomach. 2. New mild patchy air space disease at the mid lungs and lung bases. RPTAT: UU Physician Aiden Date Time Electronically viewed and signed by Physician Aiden on 01/21/2017 21:37 RS/
[2017-01-21] MEDS ORDERED: ENOXAPARIN 80 MG/0.8 ML SYG SC ONE (22:00)
[2017-01-22] VITALS (25 sets, daily range): BP systolic 98–133; BP diastolic 43–87; PULSE 60–100; RESP 11–25
[2017-01-22] MEDS: INSULIN ASPART [NOVOLOG] 3 ML PEN SC SCH ×6 (01:00→21:00)
[2017-01-22 05:03] LABS: ADD SCAN DIFF NO
[2017-01-22 05:13] LABS: BASOPHIL # 0.1 10^3/ul (0.0-0.1); BASOPHILS % 1.1 % (0.0-2.0); EOSINOPHILS # 0.4 10^3/ul (0.0-0.5); EOSINOPHILS % 7.2 % (0.0-7.0); HEMATOCRIT 38.9 % (37.0-47.0); HEMOGLOBIN 12.6 g/dl (12.0-16.0); LYMPHOCYTES # 1.3 10^3/ul (0.8-2.9); LYMPHOCYTES % 23.6 % (15.0-51.0); MEAN CORPUSCULAR HEMOGLOBIN 26.8 pg (29.0-33.0); MEAN CORPUSCULAR HGB CONC 32.4 g/dl (32.0-37.0); MEAN CORPUSCULAR VOLUME 82.6 fl (82.0-101.0); MEAN PLATELET VOLUME 12.4 fl (7.4-10.4); MONOCYTE # 0.7 10^3/ul (0.3-0.9); NEUTROPHIL # 2.9 10^3/ul (1.6-7.5); NEUTROPHILS % 54.5 % (39.0-77.0); PLATELET COUNT 281 10^3/UL (140-415); RED BLOOD COUNT 4.71 10^6/ul (4.20-5.40); RED CELL DISTRIBUTION WIDTH 16.2 % (11.5-14.5); WHITE BLOOD COUNT 5.4 10^3/ul (4.8-10.8)
[2017-01-22 05:29] LABS: CALCIUM 9.8 mg/dl (8.4-10.2); CREATININE 1.62 mg/dl (0.44-1.00); POTASSIUM 4.7 mmol/L (3.5-5.1)
[2017-01-22] MEDS: ASPIRIN 81 MG TAB PO SCH (08:38)
[2017-01-22] MEDS: MULTIVITAMINS 10 ML, THIAMINE 100 MG, FOLIC ACID 1 MG, MAGNESIUM SULFATE 2 GM in SOD CH... IVPB SCH (08:41)
[2017-01-22] MEDS: LEVETIRACETAM 500 MG (PMX) 100 ML IVPB SCH ×2 (08:41→22:15)
[2017-01-22] MEDS: COLLAGENASE 30 GM TUBE TOP SCH (08:58)
--- NOTE | 2017-01-22 09:14 | CONS ---
Date/Time of Note Date/Time of Note DATE: 01/22/17 TIME: 09:11 Assessment/Plan Assessment/Plan Chief Complaint/Hosp Course assessment/impression: - acute encephalopathy. CSF from 01/19/2017 fairly unremarkable: WBC=3, RBC=0, glu 53, pro=61 - bacteremia due to CoNS, probable contaminant. 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 I asked Pt's RN to f/u this afternoon. the encephalitis meningitis panel could not be done due to a lack of sample - will monitor Pt off systemic antibiotics, particularly in light of renal failure. management d/w Pt's , RN and Jacquelin at send out lab the critical care time I took to care for this Pt today was from 0850 to 0930 Problems: Consultation Date/Type/Reason Admit Date/Time Jan 16, 2017 at 15:19 Initial Consult Date 01/17/17 Type of Consultation: ID Referring Provider: ROXANA TORO MD 24 HR Interval Summary Subjective hx not possible: pt non-verbal Exam/Review of Systems Vital Signs Vitals Vital Signs Date Time Temp Pulse Resp B/P Pulse Ox O2 Delivery O2 Flow Rate FiO2 01/22/17 07:50 98.6 84 21 110/71 Room Air 01/22/17 06:00 96 01/22/17 05:08 21 01/21/17 04:27 2.0 Intake and Output 01/21/17 01/21/17 01/22/17 15:00 23:00 07:00 Intake Total 1450 ml 140 ml 905 ml Output Total 1295 ml 925 ml 435 ml Balance 155 ml -785 ml 470 ml Exam Constitutional: non-verbal Psych: confusion Head: atraumatic, normocephalic Eyes: nl conjunctiva, other (pupil unreactive to light, equal size) ENMT: nl external ears & nose, nl nasal mucosa & septum Respiratory: clear to auscultation, normal air movement Cardiovascular: nl pulses, regular rate and rhythm Gastrointestinal: non-tender, soft Extremities: normal pulses Neurological: confused, lethargic Skin: No other Results Result Diagram: 01/22/1744301/22/17443 Results 24 hrs Laboratory Tests Test 01/21/17 10:15 01/21/17 13:05 01/21/17 17:57 01/21/17 20:44 Bedside Glucose 100 101 89 77 Test 01/22/17 01:41 01/22/17 04:44 01/22/17 05:26 01/22/17 08:57 Bedside Glucose 99 100 110 White Blood Count 5.4 # Red Blood Count 4.71 Hemoglobin 12.6 Hematocrit 38.9 Mean Corpuscular Volume 82.6 Mean Corpuscular Hemoglobin 26.8 L Mean Corpuscular Hemoglobin Concent 32.4 Red Cell Distribution Width 16.2 H Platelet Count 281 # Mean Platelet Volume 12.4 H Neutrophils % 54.5 Lymphocytes % 23.6 Monocytes % 13.0 H Eosinophils % 7.2 H Basophils % 1.1 Neutrophils # 2.9 Lymphocytes # 1.3 Monocytes # 0.7 Eosinophils # 0.4 Basophils # 0.1 Nucleated Red Blood Cells # 0.0 Sodium Level 141 Potassium Level 4.7 Chloride Level 110 Carbon Dioxide Level 18 L Anion Gap 18 H Blood Urea Nitrogen 22 H Creatinine 1.62 H Glucose Level 100 Calcium Level 9.8 Medications Medications Current Medications Levetiracetam 100 ml @ 400 mls/hr Q12 IVPB Last administered on 01/22/17 08: 41; Admin Dose 400 MLS/HR; Start 01/17/17 at 09:00 Potassium Chloride/Sodium Chloride (1/2 NS + KCl 20 Meq) 1,000 ml @ 60 mls/hr [id number] IV Last administered on 01/21/17 23:32; Admin Dose 60 MLS/HR; Start at 21:30 Metoprolol Tartrate (Lopressor) 5 mg Q4 PRN IV NOTE Last administered on 09:14; Admin Dose 5 MG; Start 01/17/17 at 00:30 Insulin Aspart (Novolog Insulin Pen) NOVOLOG *MILD* ALGORI... Q4 SC ; Start at 13:00 Miscellaneous Information 1 ea NOTE XX ; Start 01/17/17 at 10:00 Glucose (Glutose) 15 gm Q15M PRN PO DECREASED GLUCOSE; Start 01/17/17 at 10:00 Glucose (Glutose) 22.5 gm Q15M PRN PO DECREASED GLUCOSE; Start 01/17/17 at 10: 00 Dextrose (D50w Syringe) 25 ml Q15M PRN IV DECREASED GLUCOSE; Start 01/17/17 at 10:00 Dextrose (D50w Syringe) 50 ml Q15M PRN IV DECREASED GLUCOSE; Start 01/17/17 at 10:00 Glucagon (Glucagen) 1 mg Q15M PRN IM DECREASED GLUCOSE; Start 01/17/17 at 10:00 Glucose (Glutose) 15 gm Q15M PRN BUCCAL DECREASED GLUCOSE; Start 01/17/17 at 10 :00 Collagenase 1 applic 1 applic DAILY TOP Last administered on 01/22/17 08:58; Admin Dose 1 APPLIC; Start 01/17/17 at 21:00 Multivitamins/ Thiamine HCl/ Folic Acid/ Magnesium Sulfate/ Sodium Chloride ( Mvi Adult/ Vitamin B1/Folic Acid/Magnesium Sulfate/NS) 1,015.2 ml @ 125 mls/ hr DAILY@09 IVPB Last administered on 01/22/17 08:41; Admin Dose 125 MLS/HR; Start 01/18/17 at 14:45 Aspirin (Aspirin) 81 mg DAILY PO Last administered on 01/22/17 08:38; Admin Dose 81 MG; Start 01/21/17 at 09:00 TYE STYLES M.D. Jan 22, 2017 09:14
--- NOTE | 2017-01-22 10:40 | CONS ---
Date/Time of Note Date/Time of Note DATE: 01/22/17 TIME: 10:30 Assessment/Plan Assessment/Plan Chief Complaint/Hosp Course IMP: 1. AF-some mild RVR/Trop negative x 3 2.Hypotension-borderline 3.encephalopathy/ams 4.coagulopathy-now decreased with coumadin held 5. Acute Renal failure-? secondary to vanc 6.Leukocytosis 7. Cardiomyopathy-EF 45% 8. Cephalic vein thrombosis Recc: -Tele -serial ecg's -Lovenox -Continue keppra/abx's/acyclovir -Follow MS closely -F/U LP results -IVP PRN BB for HR control s/p recent IVP dose of digoxin with reasonable HR control Problems: Consultation Date/Type/Reason Admit Date/Time Jan 16, 2017 at 15:19 Initial Consult Date 01/17/17 Type of Consultation: cardiology Reason for Consultation AF Referring Provider: ROXANA TROO MD Exam/Review of Systems Vital Signs Vitals Vital Signs Date Time Temp Pulse Resp B/P Pulse Ox O2 Delivery O2 Flow Rate FiO2 01/22/17 09:00 14 115/84 95 Room Air 01/22/17 08:00 86 01/22/17 07:50 98.6 01/22/17 05:08 21 01/21/17 04:27 2.0 Intake and Output 01/21/17 01/21/17 01/22/17 15:00 23:00 07:00 Intake Total 1450 ml 140 ml 965 ml Output Total 1295 ml 925 ml 435 ml Balance 155 ml -785 ml 530 ml Exam Review of Systems: CONSTITUTIONAL: No fevers, chills. PULMONARY: No sob CARDIOVASCULAR: No chest pain/palpitations GASTROINTESTINAL: No nausea/vomiting. GENITOURINARY: No hematuria/dysuria. MUSCULOSKELETAL: No myagias/arthalgias. PSYCHIATRIC: The patient denies depression. NEUROLOGIC: Encephalopathic Constitutional: alert Psych: no complaints Head: normocephalic ENMT: mucosa pink and moist Neck: jvd (9cm ), supple Respiratory: diminished breath sounds (at basesw/B) Cardiovascular: regular rate and rhythm Gastrointestinal: non-tender, soft Musculoskeletal: muscle tone (normal) Extremities: edema Neurological: other Results Result Diagram: 01/22/17 0444 01/22/17 0444 Results 24 hrs Laboratory Tests Test 01/21/17 13:05 01/21/17 17:57 01/21/17 20:44 01/22/17 01:41 Bedside Glucose 101 89 77 99 Test 01/22/17 04:44 01/22/17 05:26 01/22/17 08:57 01/22/17 10:11 White Blood Count 5.4 # Red Blood Count 4.71 Hemoglobin 12.6 Hematocrit 38.9 Mean Corpuscular Volume 82.6 Mean Corpuscular Hemoglobin 26.8 L Mean Corpuscular Hemoglobin Concent 32.4 Red Cell Distribution Width 16.2 H Platelet Count 281 # Mean Platelet Volume 12.4 H Neutrophils % 54.5 Lymphocytes % 23.6 Monocytes % 13.0 H Eosinophils % 7.2 H Basophils % 1.1 Neutrophils # 2.9 Lymphocytes # 1.3 Monocytes # 0.7 Eosinophils # 0.4 Basophils # 0.1 Nucleated Red Blood Cells # 0.0 Sodium Level 141 Potassium Level 4.7 Chloride Level 110 Carbon Dioxide Level 18 L Anion Gap 18 H Blood Urea Nitrogen 22 H Creatinine 1.62 H Glucose Level 100 Calcium Level 9.8 Bedside Glucose 100 110 Lab Scanned Report REFERENCE LAB Test 01/22/17 10:26 Lab Scanned Report REFERENCE LAB Medications Medications Current Medications Levetiracetam 100 ml @ 400 mls/hr Q12 IVPB Last administered on 01/22/17 08: 41; Admin Dose 400 MLS/HR; Start 01/17/17 at 09:00 Potassium Chloride/Sodium Chloride (1/2 NS + KCl 20 Meq) 1,000 ml @ 60 mls/hr [id number] IV Last administered on 01/21/17 23:32; Admin Dose 60 MLS/HR; Start at 21:30 Metoprolol Tartrate (Lopressor) 5 mg Q4 PRN IV NOTE Last administered on 09:14; Admin Dose 5 MG; Start 01/17/17 at 00:30 Insulin Aspart (Novolog Insulin Pen) NOVOLOG *MILD* ALGORI... Q4 SC ; Start at 13:00 Miscellaneous Information 1 ea NOTE XX ; Start 01/17/17 at 10:00 Glucose (Glutose) 15 gm Q15M PRN PO DECREASED GLUCOSE; Start 01/17/17 at 10:00 Glucose (Glutose) 22.5 gm Q15M PRN PO DECREASED GLUCOSE; Start 01/17/17 at 10: 00 Dextrose (D50w Syringe) 25 ml Q15M PRN IV DECREASED GLUCOSE; Start 01/17/17 at 10:00 Dextrose (D50w Syringe) 50 ml Q15M PRN IV DECREASED GLUCOSE; Start 01/17/17 at 10:00 Glucagon (Glucagen) 1 mg Q15M PRN IM DECREASED GLUCOSE; Start 01/17/17 at 10:00 Glucose (Glutose) 15 gm Q15M PRN BUCCAL DECREASED GLUCOSE; Start 01/17/17 at 10 :00 Collagenase 1 applic 1 applic DAILY TOP Last administered on 01/22/17 08:58; Admin Dose 1 APPLIC; Start 01/17/17 at 21:00 Multivitamins/ Thiamine HCl/ Folic Acid/ Magnesium Sulfate/ Sodium Chloride ( Mvi Adult/ Vitamin B1/Folic Acid/Magnesium Sulfate/NS) 1,015.2 ml @ 125 mls/ hr DAILY@09 IVPB Last administered on 01/22/17 08:41; Admin Dose 125 MLS/HR; Start 01/18/17 at 14:45 Aspirin (Aspirin) 81 mg DAILY PO Last administered on 01/22/17 08:38; Admin Dose 81 MG; Start 01/21/17 at 09:00 MINOO REY Jan 22, 2017 10:40
--- NOTE | 2017-01-22 12:05 | RADRPT ---
PROCEDURE: Ultrasound guidance for placement of needle in left upper extremity vein. CLINICAL INDICATION: Venous access. TECHNIQUE: Limited sonography of the left upper extremity was performed. Ultrasound images were recorded and s tored in the patient's medical record. COMPARISON: None. FINDINGS: The ultrasound images demonstrate a patent left upper extremity vein. The PICC line was inserted by the PICC line nurse. IMPRESSION: 1. Ultrasound guidance for a needle placement in a left upper extremity vein. 2. The left upper extremity vein is patent. RPTAT: QQ .Catrachiot Small MD, MD Date Time Electronically viewed and signed by .Catrachito Small MD, MD on 01/22/2017 12:05 .R/
--- NOTE | 2017-01-22 12:06 | RADRPT ---
PROCEDURE: XR Chest. CLINICAL INDICATION: Check PICC line position. TECHNIQUE: Single frontal view. COMPARISON: 01/21/2017. FINDINGS: There is a left arm PICC line with the tip in the lower superior vena cava. The nasogastric tube ti p is in the stomach. There is mild atelectasis at the lung bases, unchanged. The lungs are otherwi se clear. The heart is enlarged. There is no pleural effusion. There is no pneumothorax. IMPRESSION: 1. Left arm PICC line tip in satisfactory position. 2. No other significant change from 01/21/2017. RPTAT: QQ .Catrachito Small MD, MD Date Time Electronically viewed and signed by .Catrachito Small MD, MD on 01/22/2017 12:06 .R/
[2017-01-22] MEDS ORDERED: SOD CHLORIDE 0.9% 100 ML ONE (12:14)
--- NOTE | 2017-01-22 14:52 | PN ---
Date/Time of Note Date/Time of Note DATE: 01/22/17 TIME: 14:48 Assessment/Plan VTE Prophylaxis VTE Prophylaxis Intervention: SCD's Lines/Catheters IV Catheter Type (from [facility]): PICC Line Central line still needed: Yes Urinary Cath still in place: Yes Reason Cath still needed: urinary retention Assessment/Plan Chief Complaint/Hosp Course No change in neuro status, remains hemodynamically stable, atrial fibrillation at controlled rate, no fever emesis reported per RN. Continue ICU care. Assessment/Plan - Acute encephalopathy of unclear etiology, Dr. Lozano is following in neurology consultation. - Right greater than left medial thalamic infarcts. Continue aspirin and Keppra. - Staph aureus bacteremia, concern for meningitis, continue droplet isolation, antibiotics per ID. Dr. Abarca is following infection disease consultation. - Atrial fibrillation with rapid ventricular response, currently rate is controlled. Dr. Armenta is following and cardiology consultation. - Thrombosis of the bilateral cephalic veins. Continue Lovenox. - Acute kidney injury, Dr. Poole is following in nephrology consultation. - History of CVA - History of hyperlipidemia - Left lower extremity, status post vascular surgery. Further recommendations based on clinical course. Plan of care discussed with Dr. Valdovinos. Problems: Exam/Review of Systems Vital Signs Vitals Vital Signs Date Time Temp Pulse Resp B/P Pulse Ox O2 Delivery O2 Flow Rate FiO2 01/22/17 13:00 92 22 117/81 98 Room Air 01/22/17 11:00 98.3 01/22/17 05:08 21 01/21/17 04:27 2.0 Intake and Output 01/21/17 01/21/17 01/22/17 15:00 23:00 07:00 Intake Total 1450 ml 140 ml 965 ml Output Total 1295 ml 925 ml 435 ml Balance 155 ml -785 ml 530 ml Exam Head: atraumatic, normocephalic Neck: supple Respiratory: clear to auscultation Cardiovascular: irregular rhythm Gastrointestinal: non-tender, soft Extremities: edema Neurological: Obtunded Skin: nl turgor Results Result Diagram: 01/22/17 0444 01/22/17 0444 Results 24 hrs Laboratory Tests Test 01/21/17 17:57 01/21/17 20:44 01/22/17 01:41 01/22/17 04:44 Bedside Glucose 89 77 99 White Blood Count 5.4 # Red Blood Count 4.71 Hemoglobin 12.6 Hematocrit 38.9 Mean Corpuscular Volume 82.6 Mean Corpuscular Hemoglobin 26.8 L Mean Corpuscular Hemoglobin Concent 32.4 Red Cell Distribution Width 16.2 H Platelet Count 281 # Mean Platelet Volume 12.4 H Neutrophils % 54.5 Lymphocytes % 23.6 Monocytes % 13.0 H Eosinophils % 7.2 H Basophils % 1.1 Neutrophils # 2.9 Lymphocytes # 1.3 Monocytes # 0.7 Eosinophils # 0.4 Basophils # 0.1 Nucleated Red Blood Cells # 0.0 Sodium Level 141 Potassium Level 4.7 Chloride Level 110 Carbon Dioxide Level 18 L Anion Gap 18 H Blood Urea Nitrogen 22 H Creatinine 1.62 H Glucose Level 100 Calcium Level 9.8 Test 01/22/17 05:26 01/22/17 08:57 01/22/17 10:11 01/22/17 10:26 Bedside Glucose 100 110 Lab Scanned Report REFERENCE LAB REFERENCE LAB Test 01/22/17 12:58 Bedside Glucose 102 Medications Medications Current Medications Levetiracetam (Keppra 500 Mg/ 100ml (Pmx)) 100 ml @ 400 mls/hr Q12 IVPB Last administered on 01/22/17 08:41; Admin Dose 400 MLS/HR; Start 01/17/17 at 09:00 Metoprolol Tartrate (Lopressor) 5 mg Q4 PRN IV NOTE Last administered on 09:14; Admin Dose 5 MG; Start 01/17/17 at 00:30 Insulin Aspart (Novolog Insulin Pen) NOVOLOG *MILD* ALGORI... Q4 SC ; Start at 13:00 Miscellaneous Information 1 ea NOTE XX ; Start 01/17/17 at 10:00 Glucose (Glutose) 15 gm Q15M PRN PO DECREASED GLUCOSE; Start 01/17/17 at 10:00 Glucose (Glutose) 22.5 gm Q15M PRN PO DECREASED GLUCOSE; Start 01/17/17 at 10: 00 Dextrose (D50w Syringe) 25 ml Q15M PRN IV DECREASED GLUCOSE; Start 01/17/17 at 10:00 Dextrose (D50w Syringe) 50 ml Q15M PRN IV DECREASED GLUCOSE; Start 01/17/17 at 10:00 Glucagon (Glucagen) 1 mg Q15M PRN IM DECREASED GLUCOSE; Start 01/17/17 at 10:00 Glucose (Glutose) 15 gm Q15M PRN BUCCAL DECREASED GLUCOSE; Start 01/17/17 at 10 :00 Collagenase (Santyl) 1 applic DAILY TOP Last administered on 01/22/17 08:58; Admin Dose 1 APPLIC; Start 01/17/17 at 21:00 Aspirin (Aspirin) 81 mg DAILY PO Last administered on 01/22/17 08:38; Admin Dose 81 MG; Start 01/21/17 at 09:00 IV Flush (NS 10 ml) 10 ml PRN PRN IV IV PROTOCOL; Start 01/22/17 at 12:00 LAWRENCE PICKERING Jan 22, 2017 14:52
[2017-01-22] MEDS: ENOXAPARIN 60 MG/0.6 ML SYG SC SCH (15:24)
--- NOTE | 2017-01-22 21:35 | CONS ---
Date/Time of Note Date/Time of Note DATE: 01/22/17 TIME: 21:31 Assessment/Plan Assessment/Plan Chief Complaint/Hosp Course Renal santizo stable Problems: Additional Assessment/Plan DC IVs Cont'd Hospitalization Reason: Unfortunately, bsic neurological process is unclear thus far Consultation Date/Type/Reason Admit Date/Time Jan 16, 2017 at 15:19 Initial Consult Date 01/17/17 Type of Consultation: renal Referring Provider: ROXANA TORO MD Exam/Review of Systems Vital Signs Vitals Vital Signs Date Time Temp Pulse Resp B/P Pulse Ox O2 Delivery O2 Flow Rate FiO2 01/22/17 18:15 88 22 101/66 97 Room Air 01/22/17 16:00 98.4 01/22/17 05:08 21 01/21/17 04:27 2.0 Intake and Output 01/21/17 01/21/17 01/22/17 15:00 23:00 07:00 Intake Total 1450 ml 140 ml 965 ml Output Total 1295 ml 925 ml 435 ml Balance 155 ml -785 ml 530 ml Exam Constitutional: non-verbal, well developed Head: atraumatic, normocephalic Eyes: EOMI, PERRL, nl conjunctiva, nl lids, nl sclera ENMT: nl external ears & nose, nl lips & teeth, nl nasal mucosa & septum Neck: non-tender, supple Respiratory: clear to auscultation, normal air movement Cardiovascular: nl pulses, regular rate and rhythm Gastrointestinal: nl liver, spleen, non-tender, soft Musculoskeletal: nl extremities to inspection, nl gait and stance Extremities: normal pulses Neurological: SCHEDULING ASSISTANT II-XII intact, nl mental status, nl strength, unresponsive ( Pt being followed by Neuro) Skin: nl turgor, No rash or lesions Lymph: nl lymph nodes Results Renal fn has improved further Result Diagram: 01/22/17 0444 01/22/17 0444 Results 24 hrs Laboratory Tests Test 01/22/17 01:41 01/22/17 04:44 01/22/17 05:26 01/22/17 08:57 Bedside Glucose 99 100 110 White Blood Count 5.4 # Red Blood Count 4.71 Hemoglobin 12.6 Hematocrit 38.9 Mean Corpuscular Volume 82.6 Mean Corpuscular Hemoglobin 26.8 L Mean Corpuscular Hemoglobin Concent 32.4 Red Cell Distribution Width 16.2 H Platelet Count 281 # Mean Platelet Volume 12.4 H Neutrophils % 54.5 Lymphocytes % 23.6 Monocytes % 13.0 H Eosinophils % 7.2 H Basophils % 1.1 Neutrophils # 2.9 Lymphocytes # 1.3 Monocytes # 0.7 Eosinophils # 0.4 Basophils # 0.1 Nucleated Red Blood Cells # 0.0 Sodium Level 141 Potassium Level 4.7 Chloride Level 110 Carbon Dioxide Level 18 L Anion Gap 18 H Blood Urea Nitrogen 22 H Creatinine 1.62 H Glucose Level 100 Calcium Level 9.8 Test 01/22/17 10:11 01/22/17 10:26 01/22/17 12:58 01/22/17 18:18 Lab Scanned Report REFERENCE LAB REFERENCE LAB Bedside Glucose 102 117 Medications Medications Current Medications Levetiracetam (Keppra 500 Mg/ 100ml (Pmx)) 100 ml @ 400 mls/hr Q12 IVPB Last administered on 01/22/17 08:41; Admin Dose 400 MLS/HR; Start 01/17/17 at 09:00 Metoprolol Tartrate (Lopressor) 5 mg Q4 PRN IV NOTE Last administered on 09:14; Admin Dose 5 MG; Start 01/17/17 at 00:30 Insulin Aspart (Novolog Insulin Pen) NOVOLOG *MILD* ALGORI... Q4 SC ; Start at 13:00 Miscellaneous Information 1 ea NOTE XX ; Start 01/17/17 at 10:00 Glucose (Glutose) 15 gm Q15M PRN PO DECREASED GLUCOSE; Start 01/17/17 at 10:00 Glucose (Glutose) 22.5 gm Q15M PRN PO DECREASED GLUCOSE; Start 01/17/17 at 10: 00 Dextrose (D50w Syringe) 25 ml Q15M PRN IV DECREASED GLUCOSE; Start 01/17/17 at 10:00 Dextrose (D50w Syringe) 50 ml Q15M PRN IV DECREASED GLUCOSE; Start 01/17/17 at 10:00 Glucagon (Glucagen) 1 mg Q15M PRN IM DECREASED GLUCOSE; Start 01/17/17 at 10:00 Glucose (Glutose) 15 gm Q15M PRN BUCCAL DECREASED GLUCOSE; Start 01/17/17 at 10 :00 Collagenase (Santyl) 1 applic DAILY TOP Last administered on 01/22/17 08:58; Admin Dose 1 APPLIC; Start 01/17/17 at 21:00 Aspirin (Aspirin) 81 mg DAILY PO Last administered on 01/22/17 08:38; Admin Dose 81 MG; Start 01/21/17 at 09:00 IV Flush (NS 10 ml) 10 ml PRN PRN IV IV PROTOCOL; Start 01/22/17 at 12:00 Enoxaparin Sodium (Lovenox) 60 mg DAILY SC Last administered on 01/22/17 15:24 ; Admin Dose 60 MG; Start 01/22/17 at 15:00 TALI CHIN MD Jan 22, 2017 21:35
[2017-01-23] VITALS (21 sets, daily range): BP systolic 100–128; BP diastolic 45–100; PULSE 68–123; RESP 16–27
[2017-01-23] MEDS: INSULIN ASPART [NOVOLOG] 3 ML PEN SC SCH ×5 (01:00→18:00)
[2017-01-23 05:45] LABS: CALCIUM 9.7 mg/dl (8.4-10.2); CREATININE 1.6 mg/dl (0.44-1.00); POTASSIUM 4.6 mmol/L (3.5-5.1)
[2017-01-23 05:52] LABS: HERPES SIMPLEX 1 DNA NOT DETECTED; HERPES SIMPLEX 2 DNA NOT DETECTED; HERPES SIMPLEX PCR SOURCE CEREBROSPINAL FLUID
[2017-01-23] MEDS: LEVETIRACETAM 500 MG (PMX) 100 ML IVPB SCH ×2 (09:34→21:33)
[2017-01-23] MEDS: ASPIRIN 81 MG TAB PO SCH (09:35)
[2017-01-23] MEDS: ENOXAPARIN 60 MG/0.6 ML SYG SC SCH (09:37)
[2017-01-23] MEDS: COLLAGENASE 30 GM TUBE TOP SCH (09:42)
--- NOTE | 2017-01-23 09:46 | PN ---
Date/Time of Note Date/Time of Note DATE: 01/23/17 TIME: 08:56 Assessment/Plan VTE Prophylaxis VTE Prophylaxis Intervention: LMWH, other Lines/Catheters [facility] Type (from [facility] PICC Line Central line still needed: Yes Urinary Cath still in place: Yes Reason Cath still needed: urinary retention Assessment/Plan Assessment/Plan -Thrombosis of the bilateral cephalic veins-prepped venous Doppler -Lovenox for DVT prophylaxis - Acute encephalopathy of unclear etiology, Dr. Lozano is following in neurology consultation. - Right greater than left medial thalamic infarcts. Continue aspirin and Keppra. -Seizure precautions - Staph aureus bacteremia, concern for meningitis, continue droplet isolation, antibiotics per ID. Dr. Abarca is following infection disease consultation. - Atrial fibrillation with rapid ventricular response, currently rate is controlled. Dr. Armenta is following and cardiology consultation. - Thrombosis of the bilateral cephalic veins. Continue Lovenox. - Acute kidney injury, Dr. Poole is following in nephrology consultation. - RLE swelling- arterial/venous test- negative - History of CVA - History of hyperlipidemia - Left lower extremity, status post vascular surgery. Further recommendations based on clinical course. Plan of care discussed with Dr. Valdovinos. Subjective 24 Hr Interval Summary Free Text/Dictation Remains in ICU-Patient is nonverbal remains on O2 2 L by nasal cannula,. Afebrile. Repeat MRI showed greater right thalamic infarct. Venous Doppler showed DVT bilateral upper extremity. Today's CBC pending -staff to follow-up discussed with the staff Subjective hx not possible: pt non-verbal Constitutional: requiring IVF, requiring O2 Exam/Review of Systems Vital Signs Vitals Vital Signs Date Time Temp Pulse Resp B/P Pulse Ox O2 Delivery O2 Flow Rate FiO2 01/23/17 05:59 99 24 109/67 97 Nasal Cannula 01/23/17 04:20 98.5 01/22/17 05:08 21 01/21/17 04:27 2.0 Intake and Output 01/22/17 01/22/17 01/23/17 15:00 23:00 07:00 Intake Total 985 ml 820 ml 360 ml Output Total 1180 ml 590 ml 1230 ml Balance -195 ml 230 ml -870 ml Exam Constitutional: non-verbal Respiratory: clear to auscultation, normal air movement Cardiovascular: nl pulses, other (Aflutter/a fib controlled. HR 90) Gastrointestinal: non-tender, other, soft Musculoskeletal: swelling Extremities: edema (BUE- DVT positive) Neurological: unresponsive Lymph: nontender Results Result Diagram: 01/22/17 0444 01/23/17 0428 Results 24 hrs Laboratory Tests Test 01/22/17 08:57 01/22/17 10:11 01/22/17 10:26 01/22/17 12:58 Bedside Glucose 110 102 Lab Scanned Report REFERENCE LAB REFERENCE LAB Test 01/22/17 18:18 01/22/17 22:13 01/23/17 01:46 01/23/17 04:28 Bedside Glucose 117 129 133 White Blood Count Pending Red Blood Count Pending Hemoglobin Pending Hematocrit Pending Mean Corpuscular Volume Pending Mean Corpuscular Hemoglobin Pending Mean Corpuscular Hemoglobin Concent Pending Red Cell Distribution Width Pending Platelet Count Pending Mean Platelet Volume Pending Sodium Level 143 Potassium Level 4.6 Chloride Level 106 Carbon Dioxide Level 23 Anion Gap 19 H Blood Urea Nitrogen 26 H Creatinine 1.60 H Glucose Level 148 # Calcium Level 9.7 Test 01/23/17 05:27 Bedside Glucose 136 Medications Medications Current Medications Levetiracetam (Keppra 500 Mg/ 100ml (Pmx)) 100 ml @ 400 mls/hr Q12 IVPB Last administered on 01/22/17 22:15; Admin Dose 400 MLS/HR; Start 01/17/17 at 09:00 Metoprolol Tartrate (Lopressor) 5 mg Q4 PRN IV NOTE Last administered on 09:14; Admin Dose 5 MG; Start 01/17/17 at 00:30 Insulin Aspart (Novolog Insulin Pen) NOVOLOG *MILD* ALGORI... Q4 SC ; Start at 13:00 Miscellaneous Information 1 ea NOTE XX ; Start 01/17/17 at 10:00 Glucose (Glutose) 15 gm Q15M PRN PO DECREASED GLUCOSE; Start 01/17/17 at 10:00 Glucose (Glutose) 22.5 gm Q15M PRN PO DECREASED GLUCOSE; Start 01/17/17 at 10: 00 Dextrose (D50w Syringe) 25 ml Q15M PRN IV DECREASED GLUCOSE; Start 01/17/17 at 10:00 Dextrose (D50w Syringe) 50 ml Q15M PRN IV DECREASED GLUCOSE; Start 01/17/17 at 10:00 Glucagon (Glucagen) 1 mg Q15M PRN IM DECREASED GLUCOSE; Start 01/17/17 at 10:00 Glucose (Glutose) 15 gm Q15M PRN BUCCAL DECREASED GLUCOSE; Start 01/17/17 at 10 :00 Collagenase (Santyl) 1 applic DAILY TOP Last administered on 01/22/17 08:58; Admin Dose 1 APPLIC; Start 01/17/17 at 21:00 Aspirin (Aspirin) 81 mg DAILY PO Last administered on 01/22/17 08:38; Admin Dose 81 MG; Start 01/21/17 at 09:00 IV Flush (NS 10 ml) 10 ml PRN PRN IV IV PROTOCOL; Start 01/22/17 at 12:00 Enoxaparin Sodium (Lovenox) 60 mg DAILY SC Last administered on 01/22/17 15:24 ; Admin Dose 60 MG; Start 01/22/17 at 15:00 ALEXIS NAJERA Jan 23, 2017 09:09
[2017-01-23 10:02] LABS: BASOPHIL # 0.1 10^3/ul (0.0-0.1); BASOPHILS % 0.5 % (0.0-2.0); EOSINOPHILS # 0.3 10^3/ul (0.0-0.5); EOSINOPHILS % 2.5 % (0.0-7.0); HEMATOCRIT 38.9 % (37.0-47.0); HEMOGLOBIN 12.6 g/dl (12.0-16.0); LYMPHOCYTES # 1.6 10^3/ul (0.8-2.9); LYMPHOCYTES % 15.2 % (15.0-51.0); MEAN CORPUSCULAR HEMOGLOBIN 26.8 pg (29.0-33.0); MEAN CORPUSCULAR HGB CONC 32.4 g/dl (32.0-37.0); MEAN CORPUSCULAR VOLUME 82.6 fl (82.0-101.0); MEAN PLATELET VOLUME 12.4 fl (7.4-10.4); MONOCYTE # 0.9 10^3/ul (0.3-0.9); MONOCYTES % 9.1 % (0.0-11.0); NEUTROPHIL # 7.3 10^3/ul (1.6-7.5); PLATELET COUNT 332 10^3/UL (140-415); RED BLOOD COUNT 4.71 10^6/ul (4.20-5.40); RED CELL DISTRIBUTION WIDTH 16.3 % (11.5-14.5); WHITE BLOOD COUNT 10.2 10^3/ul (4.8-10.8)
--- NOTE | 2017-01-23 13:12 | CONS ---
Date/Time of Note Date/Time of Note DATE: 01/23/17 TIME: 13:06 Assessment/Plan Assessment/Plan Chief Complaint/Hosp Course assessment/impression: - acute encephalopathy. CSF from 01/19/2017 fairly unremarkable: WBC=3, RBC=0, glu 53, pro=61 - bacteremia due to CoNS, probable contaminant. 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 Management d/w Pt's NARESH Roblero and Dr. Bosch Critical care time spent: 40 min Problems: Consultation Date/Type/Reason Admit Date/Time Jan 16, 2017 at 15:19 Initial Consult Date 01/17/17 Type of Consultation: Infectious Disease Referring Provider: ROXANA TORO MD 24 HR Interval Summary Free Text/Dictation HSV, WNV, cocci are not detected. Pt started on and tolerating NGT feeds. Planning to transfer to telemetry per d/w nursing. Subjective hx not possible: pt non-verbal Exam/Review of Systems Vital Signs Vitals Vital Signs Date Time Temp Pulse Resp B/P Pulse Ox O2 Delivery O2 Flow Rate FiO2 01/23/17 12:00 111 01/23/17 12:00 98.9 21 125/100 99 Room Air 01/22/17 05:08 21 01/21/17 04:27 2.0 Intake and Output 01/22/17 01/22/17 01/23/17 15:00 23:00 07:00 Intake Total 985 ml 820 ml 360 ml Output Total 1180 ml 590 ml 1230 ml Balance -195 ml 230 ml -870 ml Exam Constitutional: non-verbal, other (laying in bed in NAD), well developed Head: atraumatic, normocephalic Eyes: nl sclera, other (pupils equal, non-reactive to light) Respiratory: clear to auscultation, normal air movement Cardiovascular: irregular rhythm Gastrointestinal: non-tender, soft Genitourinary - Female: other (Lees catheter intact) Extremities: normal pulses, other (LLE incisional scar well healed), No edema Neurological: raises eyebrows when asked to open eyes, otherwise no commands Skin: nl turgor, other (left heel eschar noted) Results Result Diagram: 01/23/1742701/23/17427 Results 24 hrs Laboratory Tests Test 01/22/17 18:18 01/22/17 22:13 01/23/17 01:46 01/23/17 04:28 Bedside Glucose 117 129 133 White Blood Count 10.2 # Red Blood Count 4.71 Hemoglobin 12.6 Hematocrit 38.9 Mean Corpuscular Volume 82.6 Mean Corpuscular Hemoglobin 26.8 L Mean Corpuscular Hemoglobin Concent 32.4 Red Cell Distribution Width 16.3 H Platelet Count 332 Mean Platelet Volume 12.4 H Neutrophils % 72.0 Lymphocytes % 15.2 Monocytes % 9.1 Eosinophils % 2.5 Basophils % 0.5 Nucleated Red Blood Cells % 0.0 Neutrophils # 7.3 Lymphocytes # 1.6 Monocytes # 0.9 Eosinophils # 0.3 Basophils # 0.1 Nucleated Red Blood Cells # 0.0 Sodium Level 143 Potassium Level 4.6 Chloride Level 106 Carbon Dioxide Level 23 Anion Gap 19 H Blood Urea Nitrogen 26 H Creatinine 1.60 H Glucose Level 148 # Calcium Level 9.7 Test 01/23/17 05:27 01/23/17 09:31 01/23/17 12:00 Bedside Glucose 136 146 141 Medications Medications Current Medications Levetiracetam (Keppra 500 Mg/ 100ml (Pmx)) 100 ml @ 400 mls/hr Q12 IVPB Last administered on 01/23/17 09:34; Admin Dose 400 MLS/HR; Start 01/17/17 at 09:00 Metoprolol Tartrate (Lopressor) 5 mg Q4 PRN IV NOTE Last administered on 09:14; Admin Dose 5 MG; Start 01/17/17 at 00:30 Insulin Aspart (Novolog Insulin Pen) NOVOLOG *MILD* ALGORI... Q4 SC Last administered on 01/23/17 12:02; Admin Dose 1 UNIT; Start 01/17/17 at 13:00 Miscellaneous Information 1 ea NOTE XX ; Start 01/17/17 at 10:00 Glucose (Glutose) 15 gm Q15M PRN PO DECREASED GLUCOSE; Start 01/17/17 at 10:00 Glucose (Glutose) 22.5 gm Q15M PRN PO DECREASED GLUCOSE; Start 01/17/17 at 10: 00 Dextrose (D50w Syringe) 25 ml Q15M PRN IV DECREASED GLUCOSE; Start 01/17/17 at 10:00 Dextrose (D50w Syringe) 50 ml Q15M PRN IV DECREASED GLUCOSE; Start 01/17/17 at 10:00 Glucagon (Glucagen) 1 mg Q15M PRN IM DECREASED GLUCOSE; Start 01/17/17 at 10:00 Glucose (Glutose) 15 gm Q15M PRN BUCCAL DECREASED GLUCOSE; Start 01/17/17 at 10 :00 Collagenase (Santyl) 1 applic DAILY TOP Last administered on 01/23/17 09:42; Admin Dose 1 APPLIC; Start 01/17/17 at 21:00 Aspirin (Aspirin) 81 mg DAILY PO Last administered on 01/23/17 09:35; Admin Dose 81 MG; Start 01/21/17 at 09:00 IV Flush (NS 10 ml) 10 ml PRN PRN IV IV PROTOCOL; Start 01/22/17 at 12:00 Enoxaparin Sodium (Lovenox) 60 mg DAILY SC Last administered on 01/23/17 09:37 ; Admin Dose 60 MG; Start 01/22/17 at 15:00 GIRISH SCHMITZ NP Jan 23, 2017 13:12 GIRISH SCHMITZ NP Jan 23, 2017 13:12
--- NOTE | 2017-01-23 13:13 | CONS ---
Date/Time of Note Date/Time of Note DATE: 01/23/17 TIME: 13:09 Assessment/Plan Assessment/Plan Additional Assessment/Plan 1. Atrial fibrillation with RVR 2. Encephalopathy 3. Acute Renal failure 4. Cardiomyopathy-EF 45% 5. Cephalic vein thrombosis Continue Metoprol as scheduled Continue ASA Continue GI and DVT Prophylaxis Consultation Date/Type/Reason Admit Date/Time Jan 16, 2017 at 15:19 Constitutional: requiring IVF, requiring O2 Psychological: confusion, no complaints Social History Smoking Status: Unknown if ever smoked Exam/Review of Systems Vital Signs Vitals Vital Signs Date Time Temp Pulse Resp B/P Pulse Ox O2 Delivery O2 Flow Rate FiO2 01/23/17 13:00 114 26 122/59 98 Room Air 01/23/17 12:00 98.9 01/22/17 05:08 21 01/21/17 04:27 2.0 Intake and Output 01/22/17 01/22/17 01/23/17 15:00 23:00 07:00 Intake Total 985 ml 820 ml 360 ml Output Total 1180 ml 590 ml 1230 ml Balance -195 ml 230 ml -870 ml Exam Constitutional: other (nonverbal) Head: atraumatic, normocephalic Neck: non-tender, supple Respiratory: clear to auscultation Cardiovascular: irregular rhythm Gastrointestinal: nl liver, spleen, non-tender, soft Extremities: normal pulses Results Result Diagram: 01/23/17 0428 01/23/17 0428 Results 24 hrs Laboratory Tests Test 01/22/17 18:18 01/22/17 22:13 01/23/17 01:46 01/23/17 04:28 Bedside Glucose 117 129 133 White Blood Count 10.2 # Red Blood Count 4.71 Hemoglobin 12.6 Hematocrit 38.9 Mean Corpuscular Volume 82.6 Mean Corpuscular Hemoglobin 26.8 L Mean Corpuscular Hemoglobin Concent 32.4 Red Cell Distribution Width 16.3 H Platelet Count 332 Mean Platelet Volume 12.4 H Neutrophils % 72.0 Lymphocytes % 15.2 Monocytes % 9.1 Eosinophils % 2.5 Basophils % 0.5 Nucleated Red Blood Cells % 0.0 Neutrophils # 7.3 Lymphocytes # 1.6 Monocytes # 0.9 Eosinophils # 0.3 Basophils # 0.1 Nucleated Red Blood Cells # 0.0 Sodium Level 143 Potassium Level 4.6 Chloride Level 106 Carbon Dioxide Level 23 Anion Gap 19 H Blood Urea Nitrogen 26 H Creatinine 1.60 H Glucose Level 148 # Calcium Level 9.7 Test 01/23/17 05:27 01/23/17 09:31 01/23/17 12:00 Bedside Glucose 136 146 141 Medications Medications Current Medications Levetiracetam (Keppra 500 Mg/ 100ml (Pmx)) 100 ml @ 400 mls/hr Q12 IVPB Last administered on 01/23/17 09:34; Admin Dose 400 MLS/HR; Start 01/17/17 at 09:00 Metoprolol Tartrate (Lopressor) 5 mg Q4 PRN IV NOTE Last administered on 09:14; Admin Dose 5 MG; Start 01/17/17 at 00:30 Insulin Aspart (Novolog Insulin Pen) NOVOLOG *MILD* ALGORI... Q4 SC Last administered on 01/23/17 12:02; Admin Dose 1 UNIT; Start 01/17/17 at 13:00 Miscellaneous Information 1 ea NOTE XX ; Start 01/17/17 at 10:00 Glucose (Glutose) 15 gm Q15M PRN PO DECREASED GLUCOSE; Start 01/17/17 at 10:00 Glucose (Glutose) 22.5 gm Q15M PRN PO DECREASED GLUCOSE; Start 01/17/17 at 10: 00 Dextrose (D50w Syringe) 25 ml Q15M PRN IV DECREASED GLUCOSE; Start 01/17/17 at 10:00 Dextrose (D50w Syringe) 50 ml Q15M PRN IV DECREASED GLUCOSE; Start 01/17/17 at 10:00 Glucagon (Glucagen) 1 mg Q15M PRN IM DECREASED GLUCOSE; Start 01/17/17 at 10:00 Glucose (Glutose) 15 gm Q15M PRN BUCCAL DECREASED GLUCOSE; Start 01/17/17 at 10 :00 Collagenase (Santyl) 1 applic DAILY TOP Last administered on 01/23/17 09:42; Admin Dose 1 APPLIC; Start 01/17/17 at 21:00 Aspirin (Aspirin) 81 mg DAILY PO Last administered on 01/23/17 09:35; Admin Dose 81 MG; Start 01/21/17 at 09:00 IV Flush (NS 10 ml) 10 ml PRN PRN IV IV PROTOCOL; Start 01/22/17 at 12:00 Enoxaparin Sodium (Lovenox) 60 mg DAILY SC Last administered on 01/23/17t 09:37 ; Admin Dose 60 MG; Start 01/22/17 at 15:00 JOSEFA WEINSTEIN M.D. Jan 23, 2017 13:13
[2017-01-23] MEDS: METOPROLOL 5 MG INJ IV SCH ×2 (13:22→18:19)
--- NOTE | 2017-01-23 18:45 | CONS ---
Date/Time of Note Date/Time of Note DATE: 01/23/17 TIME: 18:41 Assessment/Plan Assessment/Plan Chief Complaint/Hosp Course Renal santizo stable Problems: Additional Assessment/Plan fURTHER IMPROVEMENT IN scREAT THO PICTURE IS THAT OF CKD3 Consultation Date/Type/Reason Admit Date/Time Jan 16, 2017 at 15:19 Initial Consult Date 01/17/17 Type of Consultation: RENAL Referring Provider: ROXANA TORO MD 24 HR Interval Summary Free Text/Dictation nO RESPNSE WHATSOEVER EXCEPT OCC MOVEMENT OF EXT Exam/Review of Systems Vital Signs Vitals Vital Signs Date Time Temp Pulse Resp B/P Pulse Ox O2 Delivery O2 Flow Rate FiO2 01/23/17 16:23 98.0 68 16 119/68 98 01/23/17 14:00 Room Air 01/22/17 05:08 21 01/21/17 04:27 2.0 Intake and Output 01/22/17 01/22/17 01/23/17 15:00 23:00 07:00 Intake Total 985 ml 820 ml 360 ml Output Total 1180 ml 590 ml 1230 ml Balance -195 ml 230 ml -870 ml Exam Constitutional: well developed Psych: no complaints Head: atraumatic, normocephalic Eyes: EOMI, PERRL, nl conjunctiva, nl lids, nl sclera ENMT: nl external ears & nose, nl lips & teeth, nl nasal mucosa & septum Neck: non-tender, supple Respiratory: clear to auscultation, normal air movement Cardiovascular: nl pulses, regular rate and rhythm Gastrointestinal: nl liver, spleen, non-tender, soft Musculoskeletal: nl extremities to inspection, nl gait and stance Extremities: normal pulses 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, nl mental status, nl strength, unresponsive Skin: nl turgor, No rash or lesions Lymph: nl lymph nodes Results Result Diagram: 01/23/1742701/23/17427 Results 24 hrs Laboratory Tests Test 01/22/17 22:13 01/23/17 01:46 01/23/17 04:28 01/23/17 05:27 Bedside Glucose 129 133 136 White Blood Count 10.2 # Red Blood Count 4.71 Hemoglobin 12.6 Hematocrit 38.9 Mean Corpuscular Volume 82.6 Mean Corpuscular Hemoglobin 26.8 L Mean Corpuscular Hemoglobin Concent 32.4 Red Cell Distribution Width 16.3 H Platelet Count 332 Mean Platelet Volume 12.4 H Neutrophils % 72.0 Lymphocytes % 15.2 Monocytes % 9.1 Eosinophils % 2.5 Basophils % 0.5 Nucleated Red Blood Cells % 0.0 Neutrophils # 7.3 Lymphocytes # 1.6 Monocytes # 0.9 Eosinophils # 0.3 Basophils # 0.1 Nucleated Red Blood Cells # 0.0 Sodium Level 143 Potassium Level 4.6 Chloride Level 106 Carbon Dioxide Level 23 Anion Gap 19 H Blood Urea Nitrogen 26 H Creatinine 1.60 H Glucose Level 148 # Calcium Level 9.7 Test 01/23/17 09:31 01/23/17 12:00 01/23/17 18:13 Bedside Glucose 146 141 101 Medications Medications Current Medications Levetiracetam (Keppra 500 Mg/ 100ml (Pmx)) 100 ml @ 400 mls/hr Q12 IVPB Last administered on 01/23/17 09:34; Admin Dose 400 MLS/HR; Start 01/17/17 at 09:00 Metoprolol Tartrate (Lopressor) 5 mg Q4 PRN IV NOTE Last administered on 09:14; Admin Dose 5 MG; Start 01/17/17 at 00:30 Miscellaneous Information 1 ea NOTE XX ; Start 01/17/17 at 10:00 Glucose (Glutose) 15 gm Q15M PRN PO DECREASED GLUCOSE; Start 01/17/17 at 10:00 Glucose (Glutose) 22.5 gm Q15M PRN PO DECREASED GLUCOSE; Start 01/17/17 at 10: 00 Dextrose (D50w Syringe) 25 ml Q15M PRN IV DECREASED GLUCOSE; Start 01/17/17 at 10:00 Dextrose (D50w Syringe) 50 ml Q15M PRN IV DECREASED GLUCOSE; Start 01/17/17 at 10:00 Glucagon (Glucagen) 1 mg Q15M PRN IM DECREASED GLUCOSE; Start 01/17/17 at 10:00 Glucose (Glutose) 15 gm Q15M PRN BUCCAL DECREASED GLUCOSE; Start 01/17/17 at 10 :00 Collagenase (Santyl) 1 applic DAILY TOP Last administered on 01/23/17 09:42; Admin Dose 1 APPLIC; Start 01/17/17 at 21:00 Aspirin (Aspirin) 81 mg DAILY PO Last administered on 01/23/17 09:35; Admin Dose 81 MG; Start 01/21/17 at 09:00 IV Flush (NS 10 ml) 10 ml PRN PRN IV IV PROTOCOL; Start 01/22/17 at 12:00 Enoxaparin Sodium (Lovenox) 60 mg DAILY SC Last administered on 01/23/17 09:37 ; Admin Dose 60 MG; Start 01/22/17 at 15:00 Metoprolol Tartrate (Lopressor) 2.5 mg Q6 IV Last administered on 01/23/17 18: 19; Admin Dose 2.5 MG; Start 01/23/17 at 13:30 Insulin Aspart (Novolog Insulin Pen) NOVOLOG *MILD* ALGORI... Q6 SC ; Start at 18:00 TALI CHIN MD Jan 23, 2017 18:45
[2017-01-24] VITALS (11 sets, daily range): BP systolic 118–133; BP diastolic 60–79; PULSE 79–124; RESP 16–20
[2017-01-24] MEDS: METOPROLOL 5 MG INJ IV SCH ×5 (00:47→23:56)
[2017-01-24] MEDS: INSULIN ASPART [NOVOLOG] 3 ML PEN SC SCH ×5 (05:48→23:51)
[2017-01-24] MEDS ORDERED: PENDING SANTYL ORDER FOR WOUND CARE XX PRN (07:30)
[2017-01-24] MEDS: ASPIRIN 81 MG TAB PO SCH (08:40)
[2017-01-24] MEDS: ENOXAPARIN 60 MG/0.6 ML SYG SC SCH (08:47)
[2017-01-24 10:13] LABS: ALBUMIN 3.4 g/dl (3.3-4.9); BILIRUBIN,INDIRECT 0.2 mg/dl (0-1.1); BILIRUBIN,TOTAL 0.2 mg/dl (0.2-1.3); CALCIUM 9.3 mg/dl (8.4-10.2); CREATININE 1.45 mg/dl (0.44-1.00); POTASSIUM 4.6 mmol/L (3.5-5.1); TOTAL PROTEIN 6.8 g/dl (6.1-8.1)
[2017-01-24] MEDS: LEVETIRACETAM 500 MG (PMX) 100 ML IVPB SCH ×2 (10:16→21:37)
[2017-01-24] MEDS: COLLAGENASE 30 GM TUBE TOP SCH (10:29)
--- NOTE | 2017-01-24 11:55 | CONS ---
Date/Time of Note Date/Time of Note DATE: 01/24/17 TIME: 11:54 Assessment/Plan Assessment/Plan Chief Complaint/Hosp Course - acute encephalopathy. CSF from 01/19/2017 fairly unremarkable: WBC=3, RBC=0, glu 53, pro=61 - bacteremia due to CoNS, probable contaminant. 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 Problems: Consultation Date/Type/Reason Admit Date/Time Jan 16, 2017 at 15:19 Type of Consultation: id Referring Provider: ROXANA TORO MD Exam/Review of Systems Vital Signs Vitals Vital Signs Date Time Temp Pulse Resp B/P Pulse Ox O2 Delivery O2 Flow Rate FiO2 01/24/17 11:14 99.0 85 18 127/61 99 01/24/17 02:33 21 01/23/17 14:00 Room Air 01/21/17 04:27 2.0 Intake and Output 01/23/17 01/23/17 01/24/17 15:00 23:00 07:00 Intake Total 400 ml 100 ml 700 ml Output Total 725 ml 750 ml Balance -325 ml 100 ml -50 ml Exam Constitutional: non-verbal Psych: confusion Head: atraumatic, normocephalic Eyes: EOMI Neck: non-tender, supple Cardiovascular: nl pulses, regular rate and rhythm Gastrointestinal: nl liver, spleen, non-tender, soft 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, nl mental status, nl speech, nl strength Results Result Diagram: 01/23/17 0428 01/24/17 0905 Results 24 hrs Laboratory Tests Test 01/23/17 12:00 01/23/17 18:13 01/23/17 20:13 01/24/17 00:27 Bedside Glucose 141 101 127 124 Test 01/24/17 05:46 01/24/17 09:05 01/24/17 11:32 Bedside Glucose 139 135 Sodium Level 142 Potassium Level 4.6 Chloride Level 106 Carbon Dioxide Level 25 Anion Gap 16 Blood Urea Nitrogen 28 H Creatinine 1.45 H Glucose Level 125 Calcium Level 9.3 Total Bilirubin 0.2 Direct Bilirubin 0.00 Indirect Bilirubin 0.2 Aspartate Amino Transf (AST/SGOT) 31 Alanine Aminotransferase (ALT/SGPT) 36 Alkaline Phosphatase 92 Total Protein 6.8 Albumin 3.4 Globulin 3.40 H Albumin/Globulin Ratio 1.00 Medications Medications Current Medications Levetiracetam (Keppra 500 Mg/ 100ml (Pmx)) 100 ml @ 400 mls/hr Q12 IVPB Last administered on 01/24/17 10:16; Admin Dose 400 MLS/HR; Start 01/17/17 at 09:00 Metoprolol Tartrate (Lopressor) 5 mg Q4 PRN IV NOTE Last administered on 09:14; Admin Dose 5 MG; Start 01/17/17 at 00:30 Miscellaneous Information 1 ea NOTE XX ; Start 01/17/17 at 10:00 Glucose (Glutose) 15 gm Q15M PRN PO DECREASED GLUCOSE; Start 01/17/17 at 10:00 Glucose (Glutose) 22.5 gm Q15M PRN PO DECREASED GLUCOSE; Start 01/17/17 at 10: 00 Dextrose (D50w Syringe) 25 ml Q15M PRN IV DECREASED GLUCOSE; Start 01/17/17 at 10:00 Dextrose (D50w Syringe) 50 ml Q15M PRN IV DECREASED GLUCOSE; Start 01/17/17 at 10:00 Glucagon (Glucagen) 1 mg Q15M PRN IM DECREASED GLUCOSE; Start 01/17/17 at 10:00 Glucose (Glutose) 15 gm Q15M PRN BUCCAL DECREASED GLUCOSE; Start 01/17/17 at 10 :00 Collagenase (Santyl) 1 applic DAILY TOP Last administered on 01/24/17 10:29; Admin Dose 1 APPLIC; Start 01/17/17 at 21:00 Aspirin (Aspirin) 81 mg DAILY PO Last administered on 01/24/17 08:40; Admin Dose 81 MG; Start 01/21/17 at 09:00 IV Flush (NS 10 ml) 10 ml PRN PRN IV IV PROTOCOL; Start 01/22/17 at 12:00 Enoxaparin Sodium (Lovenox) 60 mg DAILY SC Last administered on 01/24/17 08:47 ; Admin Dose 60 MG; Start 01/22/17 at 15:00 Metoprolol Tartrate (Lopressor) 2.5 mg Q6 IV Last administered on 01/24/17 11: 33; Admin Dose 2.5 MG; Start 01/23/17 at 13:30 Insulin Aspart (Novolog Insulin Pen) NOVOLOG *MILD* ALGORI... Q6 SC ; Start at 18:00 Miscellaneous Information (Pending Santyl Order For Wound Care) This patient dunaway... PRN PRN XX WOUND CARE; Start 01/24/17 at 07:30 SHELBY SHUKLA MD Jan 24, 2017 11:55
--- NOTE | 2017-01-24 18:15 | PN ---
Date/Time of Note Date/Time of Note DATE: 01/24/17 TIME: 18:11 Assessment/Plan VTE Prophylaxis VTE Prophylaxis Intervention: LMWH, other Lines/Catheters IV Catheter Type (from [facility]): PICC Line Central line still needed: Yes Urinary Cath still in place: Yes Reason Cath still needed: urinary retention Assessment/Plan Assessment/Plan -Thrombosis of the bilateral cephalic veins-prepped venous Doppler -Lovenox for DVT prophylaxis - Acute encephalopathy of unclear etiology, Dr. Lozano is following in neurology consultation. - Right greater than left medial thalamic infarcts. Continue aspirin and Keppra. -Seizure precautions - Staph aureus bacteremia, concern for meningitis, continue droplet isolation, antibiotics per ID. Dr. Abarca is following infection disease consultation. - Atrial fibrillation with rapid ventricular response, currently rate is controlled. Dr. Armenta is following and cardiology consultation. - Thrombosis of the bilateral cephalic veins. Continue Lovenox. - Acute kidney injury, Dr. Poole is following in nephrology consultation. - History of CVA - History of hyperlipidemia - Left lower extremity, status post vascular surgery. Further recommendations based on clinical course. Plan of care discussed with Dr. Valdovinos. Subjective 24 Hr Interval Summary Free Text/Dictation Patient is nonverbal remains on O2 2 L by nasal cannula,. Afebrile. Repeat MRI showed greater right thalamic infarct. Venous Doppler showed DVT bilateral upper extremity. Today's CBC pending -staff to follow-up discussed with the staff. Constitutional: requiring IVF, requiring O2 Exam/Review of Systems Vital Signs Vitals Vital Signs Date Time Temp Pulse Resp B/P Pulse Ox O2 Delivery O2 Flow Rate FiO2 01/24/17 17:54 114 01/24/17 15:55 98.2 16 133/77 97 01/24/17 02:33 21 01/23/17 14:00 Room Air 01/21/17 04:27 2.0 Intake and Output 01/23/17 01/23/17 01/24/17 15:00 23:00 07:00 Intake Total 400 ml 100 ml 700 ml Output Total 725 ml 750 ml Balance -325 ml 100 ml -50 ml Exam Constitutional: non-verbal Respiratory: clear to auscultation, normal air movement Cardiovascular: nl pulses, regular rate and rhythm (Aflutter, HR 7) Musculoskeletal: other Neurological: lethargic Results Result Diagram: 01/23/17 0428 01/24/17 0905 Results 24 hrs Laboratory Tests Test 01/23/17 18:13 01/23/17 20:13 01/24/17 00:27 01/24/17 05:46 Bedside Glucose 101 127 124 139 Test 01/24/17 09:05 01/24/17 11:32 01/24/17 17:11 Sodium Level 142 Potassium Level 4.6 Chloride Level 106 Carbon Dioxide Level 25 Anion Gap 16 Blood Urea Nitrogen 28 H Creatinine 1.45 H Glucose Level 125 Calcium Level 9.3 Total Bilirubin 0.2 Direct Bilirubin 0.00 Indirect Bilirubin 0.2 Aspartate Amino Transf (AST/SGOT) 31 Alanine Aminotransferase (ALT/SGPT) 36 Alkaline Phosphatase 92 Total Protein 6.8 Albumin 3.4 Globulin 3.40 H Albumin/Globulin Ratio 1.00 Bedside Glucose 135 123 Medications Medications Current Medications Levetiracetam (Keppra 500 Mg/ 100ml (Pmx)) 100 ml @ 400 mls/hr Q12 IVPB Last administered on 01/24/17 10:16; Admin Dose 400 MLS/HR; Start 01/17/17 at 09:00 Metoprolol Tartrate (Lopressor) 5 mg Q4 PRN IV NOTE Last administered on 09:14; Admin Dose 5 MG; Start 01/17/17 at 00:30 Miscellaneous Information 1 ea NOTE XX ; Start 01/17/17 at 10:00 Glucose (Glutose) 15 gm Q15M PRN PO DECREASED GLUCOSE; Start 01/17/17 at 10:00 Glucose (Glutose) 22.5 gm Q15M PRN PO DECREASED GLUCOSE; Start 01/17/17 at 10: 00 Dextrose (D50w Syringe) 25 ml Q15M PRN IV DECREASED GLUCOSE; Start 01/17/17 at 10:00 Dextrose (D50w Syringe) 50 ml Q15M PRN IV DECREASED GLUCOSE; Start 01/17/17 at 10:00 Glucagon (Glucagen) 1 mg Q15M PRN IM DECREASED GLUCOSE; Start 01/17/17 at 10:00 Glucose (Glutose) 15 gm Q15M PRN BUCCAL DECREASED GLUCOSE; Start 01/17/17 at 10 :00 Collagenase (Santyl) 1 applic DAILY TOP Last administered on 01/24/17 10:29; Admin Dose 1 APPLIC; Start 01/17/17 at 21:00 Aspirin (Aspirin) 81 mg DAILY PO Last administered on 01/24/17 08:40; Admin Dose 81 MG; Start 01/21/17 at 09:00 IV Flush (NS 10 ml) 10 ml PRN PRN IV IV PROTOCOL; Start 01/22/17 at 12:00 Enoxaparin Sodium (Lovenox) 60 mg DAILY SC Last administered on 01/24/17 08:47 ; Admin Dose 60 MG; Start 01/22/17 at 15:00 Metoprolol Tartrate (Lopressor) 2.5 mg Q6 IV Last administered on 01/24/17 17: 15; Admin Dose 2.5 MG; Start 01/23/17 at 13:30 Insulin Aspart (Novolog Insulin Pen) NOVOLOG *MILD* ALGORI... Q6 SC ; Start at 18:00 Miscellaneous Information (Pending Santyl Order For Wound Care) This patient dunaway... PRN PRN XX WOUND CARE; Start 01/24/17 at 07:30 ALEXIS NAJERA Jan 24, 2017 18:15
--- NOTE | 2017-01-24 20:01 | CONS ---
Date/Time of Note Date/Time of Note DATE: 01/24/17 TIME: 20:00 Assessment/Plan Assessment/Plan Chief Complaint/Hosp Course Renal santizo stable Problems: (1) Anemia Comment: Hct stable at 39% (2) MARIELA (acute kidney injury) Status: Acute Comment: Ac renal failure improved though pt has CKD3 No further need for IV fluids (3) Altered level of consciousness Status: Acute Comment: seems to be becoming chronic further plans per Neuro Keppra may be changed to po route Additional Assessment/Plan Etiology of Coma remains unclear. Consultation Date/Type/Reason Admit Date/Time Jan 16, 2017 at 15:19 Initial Consult Date 01/17/17 Type of Consultation: renal Referring Provider: ROXANA TORO MD 24 HR Interval Summary Free Text/Dictation No change in clinical state Exam/Review of Systems Vital Signs Vitals Vital Signs Date Time Temp Pulse Resp B/P Pulse Ox O2 Delivery O2 Flow Rate FiO2 01/24/17 17:54 114 01/24/17 15:55 98.2 16 133/77 97 01/24/17 02:33 21 01/23/17 14:00 Room Air 01/21/17 04:27 2.0 Intake and Output 01/23/17 01/23/17 01/24/17 15:00 23:00 07:00 Intake Total 400 ml 100 ml 700 ml Output Total 725 ml 750 ml Balance -325 ml 100 ml -50 ml Exam at bedside Constitutional: non-verbal, well developed Psych: nl mood/affect, no complaints Head: atraumatic, normocephalic Eyes: EOMI, PERRL, nl conjunctiva, nl lids, nl sclera ENMT: nl external ears & nose, nl lips & teeth, nl nasal mucosa & septum Neck: non-tender, supple Respiratory: clear to auscultation, normal air movement Cardiovascular: nl pulses, regular rate and rhythm Gastrointestinal: nl liver, spleen, non-tender, other (Pt tolerating NG Feeding ), soft Musculoskeletal: nl extremities to inspection, nl gait and stance Extremities: normal pulses, other (muscle wasting) 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, nl mental status, nl speech, nl strength Skin: nl turgor, other (pale), No rash or lesions Lymph: nl lymph nodes Results Furtehr improvement in renal fn noted Result Diagram: 01/23/17 0428 01/24/17 0905 Results 24 hrs Laboratory Tests Test 01/23/17 20:13 01/24/17 00:27 01/24/17 05:46 01/24/17 09:05 Bedside Glucose 127 124 139 Sodium Level 142 Potassium Level 4.6 Chloride Level 106 Carbon Dioxide Level 25 Anion Gap 16 Blood Urea Nitrogen 28 H Creatinine 1.45 H Glucose Level 125 Calcium Level 9.3 Total Bilirubin 0.2 Direct Bilirubin 0.00 Indirect Bilirubin 0.2 Aspartate Amino Transf (AST/SGOT) 31 Alanine Aminotransferase (ALT/SGPT) 36 Alkaline Phosphatase 92 Total Protein 6.8 Albumin 3.4 Globulin 3.40 H Albumin/Globulin Ratio 1.00 Test 01/24/17 11:32 01/24/17 17:11 Bedside Glucose 135 123 Medications Medications Current Medications Levetiracetam (Keppra 500 Mg/ 100ml (Pmx)) 100 ml @ 400 mls/hr Q12 IVPB Last administered on 01/24/17 10:16; Admin Dose 400 MLS/HR; Start 01/17/17 at 09:00 Metoprolol Tartrate (Lopressor) 5 mg Q4 PRN IV NOTE Last administered on 09:14; Admin Dose 5 MG; Start 01/17/17 at 00:30 Miscellaneous Information 1 ea NOTE XX ; Start 01/17/17 at 10:00 Glucose (Glutose) 15 gm Q15M PRN PO DECREASED GLUCOSE; Start 01/17/17 at 10:00 Glucose (Glutose) 22.5 gm Q15M PRN PO DECREASED GLUCOSE; Start 01/17/17 at 10: 00 Dextrose (D50w Syringe) 25 ml Q15M PRN IV DECREASED GLUCOSE; Start 01/17/17 at 10:00 Dextrose (D50w Syringe) 50 ml Q15M PRN IV DECREASED GLUCOSE; Start 01/17/17 at 10:00 Glucagon (Glucagen) 1 mg Q15M PRN IM DECREASED GLUCOSE; Start 01/17/17 at 10:00 Glucose (Glutose) 15 gm Q15M PRN BUCCAL DECREASED GLUCOSE; Start 01/17/17 at 10 :00 Collagenase (Santyl) 1 applic DAILY TOP Last administered on 01/24/17 10:29; Admin Dose 1 APPLIC; Start 01/17/17 at 21:00 Aspirin (Aspirin) 81 mg DAILY PO Last administered on 01/24/17 08:40; Admin Dose 81 MG; Start 01/21/17 at 09:00 IV Flush (NS 10 ml) 10 ml PRN PRN IV IV PROTOCOL; Start 01/22/17 at 12:00 Enoxaparin Sodium (Lovenox) 60 mg DAILY SC Last administered on 01/24/17 08:47 ; Admin Dose 60 MG; Start 01/22/17 at 15:00 Metoprolol Tartrate (Lopressor) 2.5 mg Q6 IV Last administered on 01/24/17 17: 15; Admin Dose 2.5 MG; Start 01/23/17 at 13:30 Insulin Aspart (Novolog Insulin Pen) NOVOLOG *MILD* ALGORI... Q6 SC ; Start at 18:00 Miscellaneous Information (Pending Santyl Order For Wound Care) This patient dunaway... PRN PRN XX WOUND CARE; Start 01/24/17 at 07:30 TALI CHIN MD Jan 24, 2017 20:01
[2017-01-25] VITALS (12 sets, daily range): BP systolic 105–137; BP diastolic 57–85; PULSE 67–124; RESP 15–20
[2017-01-25] MEDS: METOPROLOL 5 MG INJ IV SCH ×3 (05:56→17:20)
[2017-01-25] MEDS: INSULIN ASPART [NOVOLOG] 3 ML PEN SC SCH ×3 (06:00→17:26)
[2017-01-25 08:15] LABS: BASOPHIL # 0.1 10^3/ul (0.0-0.1); BASOPHILS % 0.7 % (0.0-2.0); EOSINOPHILS # 0.3 10^3/ul (0.0-0.5); EOSINOPHILS % 2.5 % (0.0-7.0); HEMATOCRIT 36.7 % (37.0-47.0); HEMOGLOBIN 11.7 g/dl (12.0-16.0); LYMPHOCYTES # 1.6 10^3/ul (0.8-2.9); LYMPHOCYTES % 13.8 % (15.0-51.0); MEAN CORPUSCULAR HEMOGLOBIN 25.8 pg (29.0-33.0); MEAN CORPUSCULAR HGB CONC 31.9 g/dl (32.0-37.0); MEAN PLATELET VOLUME 12.4 fl (7.4-10.4); MONOCYTES % 8.7 % (0.0-11.0); NEUTROPHIL # 8.3 10^3/ul (1.6-7.5); NEUTROPHILS % 73.8 % (39.0-77.0); PLATELET COUNT 351 10^3/UL (140-415); RED BLOOD COUNT 4.53 10^6/ul (4.20-5.40); RED CELL DISTRIBUTION WIDTH 17.1 % (11.5-14.5); WHITE BLOOD COUNT 11.3 10^3/ul (4.8-10.8)
[2017-01-25 08:34] LABS: CALCIUM 9.5 mg/dl (8.4-10.2); CREATININE 1.33 mg/dl (0.44-1.00); POTASSIUM 4.5 mmol/L (3.5-5.1)
[2017-01-25] MEDS: COLLAGENASE 30 GM TUBE TOP SCH (09:00)
[2017-01-25] MEDS: ASPIRIN 81 MG TAB PO SCH (09:13)
[2017-01-25] MEDS: ENOXAPARIN 60 MG/0.6 ML SYG SC SCH (09:14)
[2017-01-25] MEDS: LEVETIRACETAM 500 MG (PMX) 100 ML IVPB SCH ×2 (09:14→21:00)
--- NOTE | 2017-01-25 11:03 | CONS ---
Date/Time of Note Date/Time of Note DATE: 01/25/17 TIME: 10:58 Assessment/Plan Assessment/Plan Chief Complaint/Hosp Course assessment/impression: - acute encephalopathy. CSF from 01/19/2017 fairly unremarkable: WBC=3, RBC=0, glu 53, pro=61, CSF ([place] serology negative, HSV negative, encephalitis meningitis panel could not be done due to a lack of sample), serum ([place] PCR negative, crypto antigen negative, cocci CF negative, histo CF negative) - bacteremia due to CoNS, probable contaminant. 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) - A fib - h/o DVT - h/o LLE ischemia s/p thrombolysis and subsequent open thrombectomy and fasciotomy at [facility] 09/2015 - h/o thrombus on DEBBIE per records from [facility] recommendations: - pending results: CSF (crypto, cocci) - will monitor Pt off systemic antibiotics management d/w Pt's RN Problems: Consultation Date/Type/Reason Admit Date/Time Jan 16, 2017 at 15:19 Initial Consult Date 01/17/17 Type of Consultation: ID Referring Provider: ROXANA TORO MD 24 HR Interval Summary Subjective hx not possible: pt non-verbal Exam/Review of Systems Vital Signs Vitals Vital Signs Date Time Temp Pulse Resp B/P Pulse Ox O2 Delivery O2 Flow Rate FiO2 01/25/17 08:20 67 01/25/17 07:53 99.0 18 137/67 98 01/25/17 06:15 21 01/25/17 00:35 Room Air Intake and Output 01/24/17 01/24/17 01/25/17 15:00 23:00 07:00 Intake Total 670 ml 710 ml Output Total 650 ml 750 ml Balance 20 ml -40 ml Exam Constitutional: non-verbal Psych: confusion Head: atraumatic, normocephalic Eyes: nl conjunctiva, other (pupil is fixed at 4mm, not reactive to light) ENMT: nl external ears & nose, nl nasal mucosa & septum Respiratory: clear to auscultation, normal air movement Cardiovascular: nl pulses, regular rate and rhythm Gastrointestinal: non-tender, soft Musculoskeletal: nl extremities to inspection Extremities: No edema Neurological: lethargic Skin: nl turgor, No rash or lesions Results Result Diagram: 01/25/17 0710 01/25/17 0710 Results 24 hrs Laboratory Tests Test 01/24/17 11:32 01/24/17 17:11 01/24/17 23:48 01/25/17 06:06 Bedside Glucose 135 123 129 123 Test 01/25/17 07:10 01/25/17 09:39 01/25/17 09:41 White Blood Count 11.3 H Red Blood Count 4.53 Hemoglobin 11.7 L Hematocrit 36.7 L Mean Corpuscular Volume 81.0 L Mean Corpuscular Hemoglobin 25.8 L Mean Corpuscular Hemoglobin Concent 31.9 L Red Cell Distribution Width 17.1 H Platelet Count 351 Mean Platelet Volume 12.4 H Neutrophils % 73.8 Lymphocytes % 13.8 L Monocytes % 8.7 Eosinophils % 2.5 Basophils % 0.7 Nucleated Red Blood Cells % 0.0 Neutrophils # 8.3 H Lymphocytes # 1.6 Monocytes # 1.0 H Eosinophils # 0.3 Basophils # 0.1 Nucleated Red Blood Cells # 0.0 Sodium Level 141 Potassium Level 4.5 Chloride Level 103 Carbon Dioxide Level 27 Anion Gap 16 Blood Urea Nitrogen 30 H Creatinine 1.33 H Glucose Level 125 Calcium Level 9.5 Lab Scanned Report REFERENCE LAB REFERENCE LAB Medications Medications Current Medications Levetiracetam (Keppra 500 Mg/ 100ml (Pmx)) 100 ml @ 400 mls/hr Q12 IVPB Last administered on 01/25/17 09:14; Admin Dose 400 MLS/HR; Start 01/17/17 at 09:00 Metoprolol Tartrate (Lopressor) 5 mg Q4 PRN IV NOTE Last administered on 09:14; Admin Dose 5 MG; Start 01/17/17 at 00:30 Miscellaneous Information 1 ea NOTE XX ; Start 01/17/17 at 10:00 Glucose (Glutose) 15 gm Q15M PRN PO DECREASED GLUCOSE; Start 01/17/17 at 10:00 Glucose (Glutose) 22.5 gm Q15M PRN PO DECREASED GLUCOSE; Start 01/17/17 at 10: 00 Dextrose (D50w Syringe) 25 ml Q15M PRN IV DECREASED GLUCOSE; Start 01/17/17 at 10:00 Dextrose (D50w Syringe) 50 ml Q15M PRN IV DECREASED GLUCOSE; Start 01/17/17 at 10:00 Glucagon (Glucagen) 1 mg Q15M PRN IM DECREASED GLUCOSE; Start 01/17/17 at 10:00 Glucose (Glutose) 15 gm Q15M PRN BUCCAL DECREASED GLUCOSE; Start 01/17/17 at 10 :00 Collagenase (Santyl) 1 applic DAILY TOP Last administered on 01/24/17 10:29; Admin Dose 1 APPLIC; Start 01/17/17 at 21:00 Aspirin (Aspirin) 81 mg DAILY PO Last administered on 01/25/17 09:13; Admin Dose 81 MG; Start 01/21/17 at 09:00 IV Flush (NS 10 ml) 10 ml PRN PRN IV IV PROTOCOL; Start 01/22/17 at 12:00 Enoxaparin Sodium (Lovenox) 60 mg DAILY SC Last administered on 01/25/17 09:14 ; Admin Dose 60 MG; Start 01/22/17 at 15:00 Metoprolol Tartrate (Lopressor) 2.5 mg Q6 IV Last administered on 01/25/17 05: 56; Admin Dose 2.5 MG; Start 01/23/17 at 13:30 Insulin Aspart (Novolog Insulin Pen) NOVOLOG *MILD* ALGORI... Q6 SC ; Start at 18:00 Miscellaneous Information (Pending Santyl Order For Wound Care) This patient dunaway... PRN PRN XX WOUND CARE; Start 01/24/17 at 07:30 TYE STYLES M.D. Jan 25, 2017 11:03
--- NOTE | 2017-01-25 12:09 | CONS ---
Date/Time of Note Date/Time of Note DATE: 01/25/17 TIME: 12:06 Assessment/Plan Assessment/Plan Chief Complaint/Hosp Course IMP: 1. AF-rate controlled/Trop negative x 3 2.Hypotension-borderline 3.encephalopathy/ams 4.coagulopathy-now decreased with coumadin held 5. Acute Renal failure-? secondary to vanc 6.Leukocytosis 7. Cardiomyopathy-EF 45% 8. Cephalic vein thrombosis Recc: -Tele -serial ecg's -Lovenox -Continue keppra/abx's/acyclovir -Follow MS closely with ongoing neuro eval -IVP BB for rate control Problems: Consultation Date/Type/Reason Admit Date/Time Jan 16, 2017 at 15:19 Initial Consult Date 01/17/17 Type of Consultation: cardiology Reason for Consultation af Referring Provider: ROXANA TORO MD Exam/Review of Systems Vital Signs Vitals Vital Signs Date Time Temp Pulse Resp B/P Pulse Ox O2 Delivery O2 Flow Rate FiO2 01/25/17 10:59 99.3 71 16 121/57 95 01/25/17 06:15 21 01/25/17 00:35 Room Air Intake and Output 01/24/17 01/24/17 01/25/17 15:00 23:00 07:00 Intake Total 670 ml 710 ml Output Total 650 ml 750 ml Balance 20 ml -40 ml Exam Review of Systems: CONSTITUTIONAL: No fevers, chills. PULMONARY: No sob CARDIOVASCULAR: No chest pain/palpitations GASTROINTESTINAL: No nausea/vomiting. GENITOURINARY: No hematuria/dysuria. MUSCULOSKELETAL: No myagias/arthalgias. PSYCHIATRIC: The patient denies depression. NEUROLOGIC: encephalopathic Constitutional: alert Psych: no complaints Head: normocephalic ENMT: mucosa pink and moist Neck: jvd (8-9 cm water), supple Respiratory: diminished breath sounds (at bases/B) Cardiovascular: irregular rhythm Gastrointestinal: non-tender, soft Musculoskeletal: muscle tone (normal) Extremities: edema (none) Neurological: unresponsive Results Result Diagram: 01/25/17 0710 01/25/17 0710 Results 24 hrs Laboratory Tests Test 01/24/17 17:11 01/24/17 23:48 01/25/17 06:06 01/25/17 07:10 Bedside Glucose 123 129 123 White Blood Count 11.3 H Red Blood Count 4.53 Hemoglobin 11.7 L Hematocrit 36.7 L Mean Corpuscular Volume 81.0 L Mean Corpuscular Hemoglobin 25.8 L Mean Corpuscular Hemoglobin Concent 31.9 L Red Cell Distribution Width 17.1 H Platelet Count 351 Mean Platelet Volume 12.4 H Neutrophils % 73.8 Lymphocytes % 13.8 L Monocytes % 8.7 Eosinophils % 2.5 Basophils % 0.7 Nucleated Red Blood Cells % 0.0 Neutrophils # 8.3 H Lymphocytes # 1.6 Monocytes # 1.0 H Eosinophils # 0.3 Basophils # 0.1 Nucleated Red Blood Cells # 0.0 Sodium Level 141 Potassium Level 4.5 Chloride Level 103 Carbon Dioxide Level 27 Anion Gap 16 Blood Urea Nitrogen 30 H Creatinine 1.33 H Glucose Level 125 Calcium Level 9.5 Test 01/25/17 09:39 01/25/17 09:41 Lab Scanned Report REFERENCE LAB REFERENCE LAB Medications Medications Current Medications Levetiracetam (Keppra 500 Mg/ 100ml (Pmx)) 100 ml @ 400 mls/hr Q12 IVPB Last administered on 01/25/17 09:14; Admin Dose 400 MLS/HR; Start 01/17/17 at 09:00 Metoprolol Tartrate (Lopressor) 5 mg Q4 PRN IV NOTE Last administered on 09:14; Admin Dose 5 MG; Start 01/17/17 at 00:30 Miscellaneous Information 1 ea NOTE XX ; Start 01/17/17 at 10:00 Glucose (Glutose) 15 gm Q15M PRN PO DECREASED GLUCOSE; Start 01/17/17 at 10:00 Glucose (Glutose) 22.5 gm Q15M PRN PO DECREASED GLUCOSE; Start 01/17/17 at 10: 00 Dextrose (D50w Syringe) 25 ml Q15M PRN IV DECREASED GLUCOSE; Start 01/17/17 at 10:00 Dextrose (D50w Syringe) 50 ml Q15M PRN IV DECREASED GLUCOSE; Start 01/17/17 at 10:00 Glucagon (Glucagen) 1 mg Q15M PRN IM DECREASED GLUCOSE; Start 01/17/17 at 10:00 Glucose (Glutose) 15 gm Q15M PRN BUCCAL DECREASED GLUCOSE; Start 01/17/17 at 10 :00 Collagenase (Santyl) 1 applic DAILY TOP Last administered on 01/24/17 10:29; Admin Dose 1 APPLIC; Start 01/17/17 at 21:00 Aspirin (Aspirin) 81 mg DAILY PO Last administered on 01/25/17 09:13; Admin Dose 81 MG; Start 01/21/17 at 09:00 IV Flush (NS 10 ml) 10 ml PRN PRN IV IV PROTOCOL; Start 01/22/17 at 12:00 Enoxaparin Sodium (Lovenox) 60 mg DAILY SC Last administered on 01/25/17 09:14 ; Admin Dose 60 MG; Start 01/22/17 at 15:00 Metoprolol Tartrate (Lopressor) 2.5 mg Q6 IV Last administered on 01/25/17 05: 56; Admin Dose 2.5 MG; Start 01/23/17 at 13:30 Insulin Aspart (Novolog Insulin Pen) NOVOLOG *MILD* ALGORI... Q6 SC ; Start at 18:00 Miscellaneous [facility] This patient dunaway... PRN PRN XX WOUND CARE; Start 01/24/17 at 07:30 MINOO REY Jan 25, 2017 12:09
--- NOTE | 2017-01-25 14:31 | PN ---
Date/Time of Note Date/Time of Note DATE: 01/25/17 TIME: 14:26 Assessment/Plan VTE Prophylaxis VTE Prophylaxis Intervention: SCD's Lines/Catheters IV Catheter Type (from [facility]): PICC Line Central line still needed: Yes Urinary Cath still in place: Yes Reason Cath still needed: urinary retention Assessment/Plan Chief Complaint/Hosp Course No change in neuro status, remains hemodynamically stable, atrial fibrillation at controlled rate, no fever, emesis reported per RN. Continue telemetry monitoring. Assessment/Plan - Acute encephalopathy of unclear etiology, Dr. Lozano is following in neurology consultation. - Right greater than left medial thalamic infarcts. Continue aspirin and Keppra. - Staph aureus bacteremia vs contamination, status post antibiotics, 2D echo is negative for vegetation. CSF is unremarkable. Dr. Abarca is following infection disease consultation. - Atrial fibrillation with rapid ventricular response, currently rate is controlled. Dr. Armenta is following and cardiology consultation. - Thrombosis of the bilateral cephalic veins. Continue Lovenox. - Acute kidney injury, Dr. Poole is following in nephrology consultation. - History of CVA - History of hyperlipidemia - Left lower extremity, status post vascular surgery. Further recommendations based on clinical course. Plan of care discussed with Dr. Valdovinos. Problems: Exam/Review of Systems Vital Signs Vitals Vital Signs Date Time Temp Pulse Resp B/P Pulse Ox O2 Delivery O2 Flow Rate FiO2 01/25/17 12:19 96 01/25/17 10:59 99.3 16 121/57 95 01/25/17 06:15 21 01/25/17 00:35 Room Air Intake and Output 01/24/17 01/24/17 01/25/17 15:00 23:00 07:00 Intake Total 670 ml 710 ml Output Total 650 ml 750 ml Balance 20 ml -40 ml Exam Head: atraumatic, normocephalic Neck: supple Respiratory: clear to auscultation Cardiovascular: irregular rhythm Gastrointestinal: non-tender, soft Extremities: edema Neurological: Obtunded Skin: nl turgor Results Result Diagram: 01/25/17 0710 01/25/17 0710 Results 24 hrs Laboratory Tests Test 01/24/17 17:11 01/24/17 23:48 01/25/17 06:06 01/25/17 07:10 Bedside Glucose 123 129 123 White Blood Count 11.3 H Red Blood Count 4.53 Hemoglobin 11.7 L Hematocrit 36.7 L Mean Corpuscular Volume 81.0 L Mean Corpuscular Hemoglobin 25.8 L Mean Corpuscular Hemoglobin Concent 31.9 L Red Cell Distribution Width 17.1 H Platelet Count 351 Mean Platelet Volume 12.4 H Neutrophils % 73.8 Lymphocytes % 13.8 L Monocytes % 8.7 Eosinophils % 2.5 Basophils % 0.7 Nucleated Red Blood Cells % 0.0 Neutrophils # 8.3 H Lymphocytes # 1.6 Monocytes # 1.0 H Eosinophils # 0.3 Basophils # 0.1 Nucleated Red Blood Cells # 0.0 Sodium Level 141 Potassium Level 4.5 Chloride Level 103 Carbon Dioxide Level 27 Anion Gap 16 Blood Urea Nitrogen 30 H Creatinine 1.33 H Glucose Level 125 Calcium Level 9.5 Test 01/25/17 09:39 01/25/17 09:41 01/25/17 12:46 Lab Scanned Report REFERENCE LAB REFERENCE LAB Bedside Glucose 128 Medications Medications Current Medications Levetiracetam (Keppra 500 Mg/ 100ml (Pmx)) 100 ml @ 400 mls/hr Q12 IVPB Last administered on 01/25/17 09:14; Admin Dose 400 MLS/HR; Start 01/17/17 at 09:00 Metoprolol Tartrate (Lopressor) 5 mg Q4 PRN IV NOTE Last administered on 09:14; Admin Dose 5 MG; Start 01/17/17 at 00:30 Miscellaneous Information 1 ea NOTE XX ; Start 01/17/17 at 10:00 Glucose (Glutose) 15 gm Q15M PRN PO DECREASED GLUCOSE; Start 01/17/17 at 10:00 Glucose (Glutose) 22.5 gm Q15M PRN PO DECREASED GLUCOSE; Start 01/17/17 at 10: 00 Dextrose (D50w Syringe) 25 ml Q15M PRN IV DECREASED GLUCOSE; Start 01/17/17 at 10:00 Dextrose (D50w Syringe) 50 ml Q15M PRN IV DECREASED GLUCOSE; Start 01/17/17 at 10:00 Glucagon (Glucagen) 1 mg Q15M PRN IM DECREASED GLUCOSE; Start 01/17/17 at 10:00 Glucose (Glutose) 15 gm Q15M PRN BUCCAL DECREASED GLUCOSE; Start 01/17/17 at 10 :00 Collagenase (Santyl) 1 applic DAILY TOP Last administered on 01/24/17 10:29; Admin Dose 1 APPLIC; Start 01/17/17 at 21:00 Aspirin (Aspirin) 81 mg DAILY PO Last administered on 01/25/17 09:13; Admin Dose 81 MG; Start 01/21/17 at 09:00 IV Flush (NS 10 ml) 10 ml PRN PRN IV IV PROTOCOL; Start 01/22/17 at 12:00 Enoxaparin Sodium (Lovenox) 60 mg DAILY SC Last administered on 01/25/17 09:14 ; Admin Dose 60 MG; Start 01/22/17 at 15:00 Metoprolol Tartrate (Lopressor) 2.5 mg Q6 IV Last administered on 01/25/17 12: 48; Admin Dose 2.5 MG; Start 01/23/17 at 13:30 Insulin Aspart (Novolog Insulin Pen) NOVOLOG *MILD* ALGORI... Q6 SC ; Start at 18:00 Miscellaneous Information (Pending Santyl Order For Wound Care) This patient dunaway... PRN PRN XX WOUND CARE; Start 01/24/17 at 07:30 LAWRENCE PICKERING Jan 25, 2017 14:31
[2017-01-25] MEDS: BISACODYL 10 MG SUPP PR PRN (17:37)
--- NOTE | 2017-01-25 17:41 | RADRPT ---
PROCEDURE: XR Chest. CLINICAL INDICATION: Shortness of breath. TECHNIQUE: Single frontal view. COMPARISON: 01/22/2017. FINDINGS: The nasogastric tube and left arm PICC line remain in satisfactory position. There is mild atelecta sis at the lung bases, unchanged. The lungs are otherwise clear. The heart is enlarged. There is no pleural effusion. There is no pneumothorax. IMPRESSION: 1. No change from 01/22/2017. RPTAT: QQ .Catrachito Small MD, Date Time Electronically viewed and signed by .Catrachito Small MD, MD on 01/25/2017 17:41 .R/
[2017-01-26] VITALS (13 sets, daily range): BP systolic 95–170; BP diastolic 55–108; PULSE 61–140; RESP 15–20
[2017-01-26] MEDS: INSULIN ASPART [NOVOLOG] 3 ML PEN SC SCH ×4 (02:26→18:02)
[2017-01-26] MEDS: METOPROLOL 5 MG INJ IV PRN (04:21)
--- NOTE | 2017-01-26 06:23 | PN ---
DATE: This unfortunate female has been admitted with an unresponsive state. She has remained so since her admission. The etiology has not yet been determined. The patient did present with acute kidney injury from which she is recovering. She has good urinary output. Creatinine has stabilized at 1.4. She is requiring NG feeding. Please note SCreat has been improving steadily. Careful review of the chart failed to reveal any definitive diagnosis for her acute encephalopathy, thus far. Whether she is a candidate for brain biopsy will have to be left to the neurologist. Short of that, the patient will need ongoing care. She may be a candidate for PEG placement. I will leave that in the hands of the primary care physician. Renal-santizo, the patient is out of the figueredo for any serious problems that require dialysis. Dictated By: Britton Poole MD /ange/kang /Document#: [id number] STEW
[2017-01-26] MEDS: METOPROLOL 5 MG INJ IV SCH ×5 (06:33→20:43)
[2017-01-26 06:43] LABS: BASOPHIL # 0.1 10^3/ul (0.0-0.1); BASOPHILS % 0.6 % (0.0-2.0); EOSINOPHILS # 0.1 10^3/ul (0.0-0.5); EOSINOPHILS % 0.7 % (0.0-7.0); HEMATOCRIT 35.9 % (37.0-47.0); HEMOGLOBIN 11.8 g/dl (12.0-16.0); LYMPHOCYTES # 0.8 10^3/ul (0.8-2.9); LYMPHOCYTES % 6.7 % (15.0-51.0); MEAN CORPUSCULAR HEMOGLOBIN 26.3 pg (29.0-33.0); MEAN CORPUSCULAR HGB CONC 32.9 g/dl (32.0-37.0); MEAN CORPUSCULAR VOLUME 80.1 fl (82.0-101.0); MEAN PLATELET VOLUME 11.7 fl (7.4-10.4); MONOCYTE # 0.7 10^3/ul (0.3-0.9); MONOCYTES % 5.8 % (0.0-11.0); NEUTROPHILS % 85.6 % (39.0-77.0); PLATELET COUNT 435 10^3/UL (140-415); RED BLOOD COUNT 4.48 10^6/ul (4.20-5.40); RED CELL DISTRIBUTION WIDTH 16.2 % (11.5-14.5); WHITE BLOOD COUNT 11.6 10^3/ul (4.8-10.8)
[2017-01-26] MEDS: ASPIRIN 81 MG TAB PO SCH (08:30)
[2017-01-26] MEDS: LEVETIRACETAM 500 MG (PMX) 100 ML IVPB SCH ×2 (08:30→20:39)
[2017-01-26] MEDS: ENOXAPARIN 60 MG/0.6 ML SYG SC SCH ×2 (08:36→20:41)
[2017-01-26] MEDS: COLLAGENASE 30 GM TUBE TOP SCH (08:38)
[2017-01-26] MEDS: ACETAMINOPHEN 650MG/20.3ML CUP NGT PRN (09:31)
--- NOTE | 2017-01-26 10:07 | CONS ---
Date/Time of Note Date/Time of Note DATE: 01/26/17 TIME: 10:06 Assessment/Plan Assessment/Plan Chief Complaint/Hosp Course assessment/impression: - low grade temp and leukocytosis - acute encephalopathy. CSF from 01/19/2017 fairly unremarkable: WBC=3, RBC=0, glu 53, pro=61, CSF ([place] serology negative, HSV negative, encephalitis meningitis panel could not be done due to a lack of sample), serum ([place] PCR negative, crypto antigen negative, cocci CF negative, histo CF negative) - bacteremia due to CoNS, probable contaminant. 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) - A fib - h/o DVT - h/o LLE ischemia s/p thrombolysis and subsequent open [facility] - h/o thrombus on DEBBIE per records [facility] recommendations: - pending studies and results: blood cultures, urinalysis, urine culture, CXR, CSF (crypto, cocci) - continue empiric pip/tazo (01/26/2017-) management d/w Pt's RN Problems: Consultation Date/Type/Reason Admit Date/Time Jan 16, 2017 at 15:19 Initial Consult Date 01/17/17 Type of Consultation: ID Referring Provider: ROXANA TORO MD 24 HR Interval Summary Free Text/Dictation had temp 100.0F this morning Subjective hx not possible: pt non-verbal Exam/Review of Systems Vital Signs Vitals Vital Signs Date Time Temp Pulse Resp B/P Pulse Ox O2 Delivery O2 Flow Rate FiO2 01/26/17 08:39 91 01/26/17 07:30 99.1 01/26/17 06:53 18 125/55 96 01/25/17 06:15 21 01/25/17 00:35 Room Air Intake and Output 01/25/17 01/25/17 01/26/17 14:59 22:59 06:59 Intake Total 1180 ml Output Total 980 ml Balance -980 ml 1180 ml Exam Constitutional: frail, non-verbal Psych: confusion Head: atraumatic, normocephalic Eyes: nl conjunctiva, nl lids ENMT: nl external ears & nose, nl nasal mucosa & septum Respiratory: wheezing Cardiovascular: nl pulses, regular rate and rhythm Gastrointestinal: non-tender, soft Genitourinary - Female: other (FC) Musculoskeletal: nl extremities to inspection Extremities: No edema Neurological: lethargic Skin: nl turgor Results Result Diagram: 01/26/17 0628 01/25/17 0710 Results 24 hrs Laboratory Tests Test 01/25/17 12:46 01/25/17 17:24 01/26/17 00:11 01/26/17 05:42 Bedside Glucose 128 131 115 157 Test 01/26/17 06:28 01/26/17 09:46 White Blood Count 11.6 H Red Blood Count 4.48 Hemoglobin 11.8 L Hematocrit 35.9 L Mean Corpuscular Volume 80.1 L Mean Corpuscular Hemoglobin 26.3 L Mean Corpuscular Hemoglobin Concent 32.9 Red Cell Distribution Width 16.2 H Platelet Count 435 #H Mean Platelet Volume 11.7 H Neutrophils % 85.6 H Lymphocytes % 6.7 L Monocytes % 5.8 Eosinophils % 0.7 Basophils % 0.6 Nucleated Red Blood Cells % 0.0 Neutrophils # 10.0 H Lymphocytes # 0.8 Monocytes # 0.7 Eosinophils # 0.1 Basophils # 0.1 Nucleated Red Blood Cells # 0.0 Lab Scanned Report REFERENCE LAB Medications Medications Current Medications Levetiracetam (Keppra 500 Mg/ 100ml (Pmx)) 100 ml @ 400 mls/hr Q12 IVPB Last administered on 01/26/17 08:30; Admin Dose 400 MLS/HR; Start 01/17/17 at 09:00 Metoprolol Tartrate (Lopressor) 5 mg Q4 PRN IV NOTE Last administered on 04:21; Admin Dose 5 MG; Start 01/17/17 at 00:30 Miscellaneous Information 1 ea NOTE XX ; Start 01/17/17 at 10:00 Glucose (Glutose) 15 gm Q15M PRN PO DECREASED GLUCOSE; Start 01/17/17 at 10:00 Glucose (Glutose) 22.5 gm Q15M PRN PO DECREASED GLUCOSE; Start 01/17/17 at 10: 00 Dextrose (D50w Syringe) 25 ml Q15M PRN IV DECREASED GLUCOSE; Start 01/17/17 at 10:00 Dextrose (D50w Syringe) 50 ml Q15M PRN IV DECREASED GLUCOSE; Start 01/17/17 at 10:00 Glucagon (Glucagen) 1 mg Q15M PRN IM DECREASED GLUCOSE; Start 01/17/17 at 10:00 Glucose (Glutose) 15 gm Q15M PRN BUCCAL DECREASED GLUCOSE; Start 01/17/17 at 10 :00 Collagenase (Santyl) 1 applic DAILY TOP Last administered on 01/26/17 08:38; Admin Dose 1 APPLIC; Start 01/17/17 at 21:00 Aspirin (Aspirin) 81 mg DAILY PO Last administered on 01/26/17 08:30; Admin Dose 81 MG; Start 01/21/17 at 09:00 IV Flush (NS 10 ml) 10 ml PRN PRN IV IV PROTOCOL; Start 01/22/17 at 12:00 Enoxaparin Sodium (Lovenox) 60 mg DAILY SC Last administered on 01/26/17 08:36 ; Admin Dose 60 MG; Start 01/22/17 at 15:00 Metoprolol Tartrate (Lopressor) 2.5 mg Q6 IV Last administered on 01/26/17 06: 33; Admin Dose 2.5 MG; Start 01/23/17 at 13:30 Insulin Aspart (Novolog Insulin Pen) NOVOLOG *MILD* ALGORI... Q6 SC ; Start at 18:00 Miscellaneous Information (Pending Santyl Order For Wound Care) This patient dunaway... PRN PRN XX WOUND CARE; Start 01/24/17 at 07:30 Bisacodyl 10 mg 10 mg DAILY PRN [place] CONSTIPATION Last administered on 01/25/17 17:37; Admin Dose 10 MG; Start 01/25/17 at 16:30 Piperacillin Sod/ Tazobactam Sod (Zosyn 3.375gm/ 100 ml (Pmx)) 100 ml @ 200 mls /hr Q6 IVPB ; Start 01/26/17 at 10:00 Acetaminophen (Tylenol Liquid) 650 mg Q4H PRN NGT PAIN AND OR ELEVATED TEMP Last administered on 01/26/17 09:31; Admin Dose 650 MG; Start 01/26/17 at 09:00 TYE STYLES M.D. Jan 26, 2017 10:07
[2017-01-26 10:30] LABS: ALBUMIN 3.5 g/dl (3.3-4.9); ALBUMIN/GLOBULIN RATIO 0.89; BILIRUBIN,INDIRECT 0.3 mg/dl (0-1.1); BILIRUBIN,TOTAL 0.3 mg/dl (0.2-1.3); CALCIUM 9.7 mg/dl (8.4-10.2); CREATININE 1.3 mg/dl (0.44-1.00); POTASSIUM 4.9 mmol/L (3.5-5.1); TOTAL PROTEIN 7.4 g/dl (6.1-8.1)
--- NOTE | 2017-01-26 11:47 | RADRPT ---
PROCEDURE: XR Chest. CLINICAL INDICATION: r/o infection TECHNIQUE: Single frontal view of the chest was obtained COMPARISON: Chest x-ray 01/25/2017 FINDINGS: Nasogastric tube and left PICC line are stable positions. The cardiac silhouette is mildly enlarged. Mild bibasilar atelectasis persists. Superimposed infectious process cannot be completely excluded. No pneumothorax or significant pleural effusion is seen. No evidence of significant pulmonary vascular congestion. There are degenerative changes of the visualized spine. IMPRESSION: 1. Persistent bibasilar opacities, not significant change compared to prior study and suggestive of bibasilar atelectasis. A superimposed infectious process cannot be completely excluded. 2. Cardiomegaly. RPTAT: PP Physician Leland Date Time Electronically viewed and signed by Physician Leland on 01/26/2017 11:47 RC/
--- NOTE | 2017-01-26 11:58 | CONS ---
Date/Time of Note Date/Time of Note DATE: 01/26/17 TIME: 11:45 Assessment/Plan Assessment/Plan Chief Complaint/Hosp Course 61 year old female with hx of afib, MARIELA, HTN, CVA x2, LE DVT s/p fasciotomy and IVC filter recent cardiac cath was off coumadin on admission 01/16 admitted with AMS and lactic acidosis found unresponsive by family underwent CPR, ischemic cardiomyopathy EF: 45%. MRI Brain showed medial thalamic restricted diffusion, small vessel disease. Infectious work up including LP done: unrevealing. She is currently on Keppra prophylaxis. Unclear if she has ever had documented seizures. Recommendations: bilateral thalamic infarctions can often produce a state of persistent unresponsiveness, often there is an anatomical variant where one branch of the [employer] supplies bilateral thalami and can cause bilateral thalamic infarction usually this is associated with a very poor prognosis for meaningful neurologic recovery unclear if this patient has ever had seizures, i will discontinue the Keppra as thalamic seizures are rare, usually seizures arise from ischemic injury in cortical regions may obtain a Routine EEG to further evaluate i do not believe a brain biopsy would not be helpful in this case as i do not suspect an underlying neuro-infectious process or a vasculitis would recommend PEG for nutrition if this is consistent with goals of care, also recommend palliative care consultation Problems: Consultation Date/Type/Reason Admit Date/Time Jan 16, 2017 at 15:19 Date of Consultation: Jan 26, 2017 Type of Consultation: Neurology Reason for Consultation unresponsiveness admitted on 01/16 Referring Provider: LAWRENCE PICKERING Hx of Present Illness 61 year old female with hx of afib, MARIELA, HTN, CVA x2, LE DVT s/p fasciotomy and IVC filter recent cardiac cath was off coumadin on admission 01/16 admitted with AMS and lactic acidosis found unresponsive by family underwent CPR, ECHO with ischemic cardiomyopathy EF: 45%. MRI Brain showed medial thalamic restricted diffusion, small vessel disease. During admission LP was performed for encephalopathy, fevers and leukocytosis fairly unremarkable: WBC=3, RBC=0, glu 53, pro=61, CSF ([place] serology negative, HSV negative, encephalitis meningitis panel could not be done due to a lack of sample), serum ([place] PCR negative, crypto antigen negative, cocci CF negative, histo CF negative) per ID consultation. She remains unresponsive with NGT for feedings, neurology consultation requested for further evaluation today. Subjective hx not possible: pt non-verbal, pt critical Constitutional: requiring IVF, requiring O2 Psychological: confusion Social History Smoking Status: Unknown if ever smoked Exam/Review of Systems Vital Signs Vitals Vital Signs Date Time Temp Pulse Resp B/P Pulse Ox O2 Delivery O2 Flow Rate FiO2 01/26/17 08:39 91 01/26/17 07:30 99.1 01/26/17 06:53 18 125/55 96 01/25/17 06:15 21 01/25/17 00:35 Room Air Intake and Output 01/25/17 01/25/17 01/26/17 15:00 23:00 07:00 Intake Total 1180 ml Output Total 980 ml Balance -980 ml 1180 ml Exam unresponsive no response to sternal rub CN: pupils 2 mm sluggish, corneals intact, right facial asymmetry NGT feedings Motor: no withdrawal to noxious in any extremities flaccid throughout no withdrawal to noxious reflexes 1+ throughout toes are mute Results Result Diagram: 01/26/17 0628 01/26/17 0943 Results 24 hrs Laboratory Tests Test 01/25/17 12:46 01/25/17 17:24 01/26/17 00:11 01/26/17 05:42 Bedside Glucose 128 131 115 157 Test 01/26/17 06:28 01/26/17 09:43 01/26/17 09:46 White Blood Count 11.6 H Red Blood Count 4.48 Hemoglobin 11.8 L Hematocrit 35.9 L Mean Corpuscular Volume 80.1 L Mean Corpuscular Hemoglobin 26.3 L Mean Corpuscular Hemoglobin Concent 32.9 Red Cell Distribution Width 16.2 H Platelet Count 435 #H Mean Platelet Volume 11.7 H Neutrophils % 85.6 H Lymphocytes % 6.7 L Monocytes % 5.8 Eosinophils % 0.7 Basophils % 0.6 Nucleated Red Blood Cells % 0.0 Neutrophils # 10.0 H Lymphocytes # 0.8 Monocytes # 0.7 Eosinophils # 0.1 Basophils # 0.1 Nucleated Red Blood Cells # 0.0 Sodium Level 142 Potassium Level 4.9 Chloride Level 102 Carbon Dioxide Level 26 Anion Gap 19 H Blood Urea Nitrogen 32 H Creatinine 1.30 H Glucose Level 148 Calcium Level 9.7 Total Bilirubin 0.3 Direct Bilirubin 0.00 Indirect Bilirubin 0.3 Aspartate Amino Transf (AST/SGOT) 29 Alanine Aminotransferase (ALT/SGPT) 37 Alkaline Phosphatase 103 Total Protein 7.4 Albumin 3.5 Globulin 3.90 H Albumin/Globulin Ratio 0.89 Lab Scanned Report REFERENCE LAB Medications Medications Current Medications Levetiracetam (Keppra 500 Mg/ 100ml (Pmx)) 100 ml @ 400 mls/hr Q12 IVPB Last administered on 01/26/17 08:30; Admin Dose 400 MLS/HR; Start 01/17/17 at 09:00 Metoprolol Tartrate (Lopressor) 5 mg Q4 PRN IV NOTE Last administered on 04:21; Admin Dose 5 MG; Start 01/17/17 at 00:30 Miscellaneous Information 1 ea NOTE XX ; Start 01/17/17 at 10:00 Glucose (Glutose) 15 gm Q15M PRN PO DECREASED GLUCOSE; Start 01/17/17 at 10:00 Glucose (Glutose) 22.5 gm Q15M PRN PO DECREASED GLUCOSE; Start 01/17/17 at 10: 00 Dextrose (D50w Syringe) 25 ml Q15M PRN IV DECREASED GLUCOSE; Start 01/17/17 at 10:00 Dextrose (D50w Syringe) 50 ml Q15M PRN IV DECREASED GLUCOSE; Start 01/17/17 at 10:00 Glucagon (Glucagen) 1 mg Q15M PRN IM DECREASED GLUCOSE; Start 01/17/17 at 10:00 Glucose (Glutose) 15 gm Q15M PRN BUCCAL DECREASED GLUCOSE; Start 01/17/17 at 10 :00 Collagenase (Santyl) 1 applic DAILY TOP Last administered on 01/26/17 08:38; Admin Dose 1 APPLIC; Start 01/17/17 at 21:00 Aspirin (Aspirin) 81 mg DAILY PO Last administered on 01/26/17 08:30; Admin Dose 81 MG; Start 01/21/17 at 09:00 IV Flush (NS 10 ml) 10 ml PRN PRN IV IV PROTOCOL; Start 01/22/17 at 12:00 Enoxaparin Sodium (Lovenox) 60 mg DAILY SC Last administered on 01/26/17 08:36 ; Admin Dose 60 MG; Start 01/22/17 at 15:00 Metoprolol Tartrate (Lopressor) 2.5 mg Q6 IV Last administered on 01/26/17 06: 33; Admin Dose 2.5 MG; Start 01/23/17 at 13:30 Insulin Aspart (Novolog Insulin Pen) NOVOLOG *MILD* ALGORI... Q6 SC ; Start at 18:00 Miscellaneous Information [facility] This patient dunaway... PRN PRN XX WOUND CARE; Start 01/24/17 at 07:30 Bisacodyl 10 mg 10 mg DAILY PRN [place] CONSTIPATION Last administered on 01/25/17 17:37; Admin Dose 10 MG; Start 01/25/17 at 16:30 Piperacillin Sod/ Tazobactam Sod (Zosyn 3.375gm/ 100 ml (Pmx)) 100 ml @ 200 mls /hr Q6 IVPB ; Start 01/26/17 at 10:00 Acetaminophen (Tylenol Liquid) 650 mg Q4H PRN NGT PAIN AND OR ELEVATED TEMP Last administered on 01/26/17 09:31; Admin Dose 650 MG; Start 01/26/17 at 09:00 RAFA TANG MD Jan 26, 2017 11:56
[2017-01-26] MEDS: PIPER-TAZO 3.375 GM IV (PMX) 100 ML IVPB SCH ×2 (11:59→17:44)
[2017-01-26 12:20] LABS: ADD UMIC YES; UR ASCORBIC ACID 20 mg/dL (NEGATIVE); UR BACTERIA FEW /HPF (NONE SEEN); UR BILIRUBIN (Dip) NEGATIVE (NEGATIVE); UR BLOOD (Dip) NEGATIVE (NEGATIVE); UR CLARITY CLEAR (CLEAR); UR COLOR YELLOW (YELLOW); UR GLUCOSE (Dip) 1+ mg/dL (NEGATIVE); UR KETONES (Dip) NEGATIVE (NEGATIVE); UR LEUKOCYTE ESTERASE (Dip) NEGATIVE Leu/ul (NEGATIVE); UR NITRITE (Dip) NEGATIVE (NEGATIVE); UR RBC 1 /HPF (0-5); UR TOTAL PROTEIN (Dip) 1+ mg/dl (NEGATIVE); UR UROBILINOGEN (Dip) NEGATIVE (NEGATIVE)
--- NOTE | 2017-01-26 12:21 | CONS ---
Date/Time of Note Date/Time of Note DATE: 01/26/17 TIME: 12:20 Assessment/Plan Assessment/Plan Additional Assessment/Plan (1) Anemia Comment: Hct stable at 39% (2) MARIELA (acute kidney injury) Status: Acute Comment: Ac renal failure improved though pt has CKD3 No further need for IV fluids (3) Altered level of consciousness Status: Acute further plans per Neuro Robert Renal Function stable Non oliguric Trino CKD III Consultation Date/Type/Reason Admit Date/Time Jan 16, 2017 at 15:19 Initial Consult Date 01/17/17 Type of Consultation: Neurology Referring Provider: LAWRENCE PICKERING Exam/Review of Systems Vital Signs Vitals Vital Signs Date Time Temp Pulse Resp B/P Pulse Ox O2 Delivery O2 Flow Rate FiO2 01/26/17 11:45 97.9 91 18 170/108 92 01/25/17 06:15 21 01/25/17 00:35 Room Air Intake and Output 01/25/17 01/25/17 01/26/17 15:00 23:00 07:00 Intake Total 1180 ml Output Total 980 ml Balance -980 ml 1180 ml Exam Constitutional: No distress ENMT: mucosa pink and moist Respiratory: No labored breathing Cardiovascular: regular rate and rhythm Neurological: No lethargic Results Result Diagram: 01/26/17 0628 01/26/17 0943 Results 24 hrs Laboratory Tests Test 01/25/17 12:46 01/25/17 17:24 01/26/17 00:11 01/26/17 05:42 Bedside Glucose 128 131 115 157 Test 01/26/17 06:28 01/26/17 09:43 01/26/17 09:46 01/26/17 12:06 White Blood Count 11.6 H Red Blood Count 4.48 Hemoglobin 11.8 L Hematocrit 35.9 L Mean Corpuscular Volume 80.1 L Mean Corpuscular Hemoglobin 26.3 L Mean Corpuscular Hemoglobin Concent 32.9 Red Cell Distribution Width 16.2 H Platelet Count 435 #H Mean Platelet Volume 11.7 H Neutrophils % 85.6 H Lymphocytes % 6.7 L Monocytes % 5.8 Eosinophils % 0.7 Basophils % 0.6 Nucleated Red Blood Cells % 0.0 Neutrophils # 10.0 H Lymphocytes # 0.8 Monocytes # 0.7 Eosinophils # 0.1 Basophils # 0.1 Nucleated Red Blood Cells # 0.0 Sodium Level 142 Potassium Level 4.9 Chloride Level 102 Carbon Dioxide Level 26 Anion Gap 19 H Blood Urea Nitrogen 32 H Creatinine 1.30 H Glucose Level 148 Calcium Level 9.7 Total Bilirubin 0.3 Direct Bilirubin 0.00 Indirect Bilirubin 0.3 Aspartate Amino Transf (AST/SGOT) 29 Alanine Aminotransferase (ALT/SGPT) 37 Alkaline Phosphatase 103 Total Protein 7.4 Albumin 3.5 Globulin 3.90 H Albumin/Globulin Ratio 0.89 Lab Scanned Report REFERENCE LAB Bedside Glucose 131 Medications Medications Current Medications Levetiracetam (Keppra 500 Mg/ 100ml (Pmx)) 100 ml @ 400 mls/hr Q12 IVPB Last administered on 01/26/17 08:30; Admin Dose 400 MLS/HR; Start 01/17/17 at 09:00 Metoprolol Tartrate (Lopressor) 5 mg Q4 PRN IV NOTE Last administered on 04:21; Admin Dose 5 MG; Start 01/17/17 at 00:30 Miscellaneous Information 1 ea NOTE XX ; Start 01/17/17 at 10:00 Glucose (Glutose) 15 gm Q15M PRN PO DECREASED GLUCOSE; Start 01/17/17 at 10:00 Glucose (Glutose) 22.5 gm Q15M PRN PO DECREASED GLUCOSE; Start 01/17/17 at 10: 00 Dextrose (D50w Syringe) 25 ml Q15M PRN IV DECREASED GLUCOSE; Start 01/17/17 at 10:00 Dextrose (D50w Syringe) 50 ml Q15M PRN IV DECREASED GLUCOSE; Start 01/17/17 at 10:00 Glucagon (Glucagen) 1 mg Q15M PRN IM DECREASED GLUCOSE; Start 01/17/17 at 10:00 Glucose (Glutose) 15 gm Q15M PRN BUCCAL DECREASED GLUCOSE; Start 01/17/17 at 10 :00 Collagenase (Santyl) 1 applic DAILY TOP Last administered on 01/26/17 08:38; Admin Dose 1 APPLIC; Start 01/17/17 at 21:00 Aspirin (Aspirin) 81 mg DAILY PO Last administered on 01/26/17 08:30; Admin Dose 81 MG; Start 01/21/17 at 09:00 IV Flush (NS 10 ml) 10 ml PRN PRN IV IV PROTOCOL; Start 01/22/17 at 12:00 Enoxaparin Sodium (Lovenox) 60 mg DAILY SC Last administered on 01/26/17 08:36 ; Admin Dose 60 MG; Start 01/22/17 at 15:00 Metoprolol Tartrate (Lopressor) 2.5 mg Q6 IV Last administered on 01/26/17 12: 00; Admin Dose 2.5 MG; Start 01/23/17 at 13:30 Insulin Aspart (Novolog Insulin Pen) NOVOLOG *MILD* ALGORI... Q6 SC ; Start at 18:00 Miscellaneous Information (Pending Santyl Order For Wound Care) This patient dunaway... PRN PRN XX WOUND CARE; Start 01/24/17 at 07:30 Bisacodyl 10 mg 10 mg DAILY PRN [place] CONSTIPATION Last administered on 01/25/17 17:37; Admin Dose 10 MG; Start 01/25/17 at 16:30 Piperacillin Sod/ Tazobactam Sod (Zosyn 3.375gm/ 100 ml (Pmx)) 100 ml @ 200 mls /hr Q6 IVPB Last administered on 01/26/17 11:59; Admin Dose 200 MLS/HR; Start 01/26/17 at 10:00 Acetaminophen (Tylenol Liquid) 650 mg Q4H PRN NGT PAIN AND OR ELEVATED TEMP Last administered on 01/26/17 09:31; Admin Dose 650 MG; Start 01/26/17 at 09:00 MC SHARPE MD Jan 26, 2017 12:21
--- NOTE | 2017-01-26 13:11 | PN ---
Date/Time of Note Date/Time of Note DATE: 01/26/17 TIME: 13:07 Assessment/Plan VTE Prophylaxis VTE Prophylaxis Intervention: SCD's Lines/Catheters IV [facility] PICC Line Central line still needed: Yes Urinary Cath still in place: Yes Reason Cath still needed: urinary retention Assessment/Plan Chief Complaint/Hosp Course Patient had a low-grade fever in the morning, urinalysis, urine culture, and blood cultures ordered, chest x-ray, started on broad-spectrum antibiotics. Assessment/Plan - Bilateral thalamic infarctions, Dr. Payne, neurology consult is appreciated. Continue aspirin - Dysphagia, Dr. Garcia is asked to see patient for possible G-tube placement. - Staph aureus bacteremia vs contamination, status post antibiotics, 2D echo is negative for vegetation. CSF is unremarkable. Dr. Abarca is following infection disease consultation. - Atrial fibrillation with rapid ventricular response, currently rate is controlled. Dr. Armenta is following and cardiology consultation. - Thrombosis of the bilateral cephalic veins. Continue Lovenox. - Acute kidney injury, Dr. Poole is following in nephrology consultation. - History of CVA - History of hyperlipidemia - Left lower extremity, status post vascular surgery. Further recommendations based on clinical course. Plan of care discussed with Dr. Valdovinos. Problems: Exam/Review of Systems Vital Signs Vitals Vital Signs Date Time Temp Pulse Resp B/P Pulse Ox O2 Delivery O2 Flow Rate FiO2 01/26/17 13:05 70 01/26/17 12:39 98.0 20 100/58 98 Room Air 01/25/17 06:15 21 Intake and Output 01/25/17 01/25/17 01/26/17 15:00 23:00 07:00 Intake Total 1180 ml Output Total 980 ml Balance -980 ml 1180 ml Exam Head: atraumatic, normocephalic Neck: supple Respiratory: clear to auscultation Cardiovascular: irregular rhythm Gastrointestinal: non-tender, soft Extremities: edema Neurological: Obtunded Skin: nl turgor Results Result Diagram: 01/26/17 0628 01/26/17 0943 Results 24 hrs Laboratory Tests Test 01/25/17 17:24 01/26/17 00:11 01/26/17 05:42 01/26/17 06:28 Bedside Glucose 131 115 157 White Blood Count 11.6 H Red Blood Count 4.48 Hemoglobin 11.8 L Hematocrit 35.9 L Mean Corpuscular Volume 80.1 L Mean Corpuscular Hemoglobin 26.3 L Mean Corpuscular Hemoglobin Concent 32.9 Red Cell Distribution Width 16.2 H Platelet Count 435 #H Mean Platelet Volume 11.7 H Neutrophils % 85.6 H Lymphocytes % 6.7 L Monocytes % 5.8 Eosinophils % 0.7 Basophils % 0.6 Nucleated Red Blood Cells % 0.0 Neutrophils # 10.0 H Lymphocytes # 0.8 Monocytes # 0.7 Eosinophils # 0.1 Basophils # 0.1 Nucleated Red Blood Cells # 0.0 Test 01/26/17 09:43 01/26/17 09:46 01/26/17 11:27 01/26/17 12:06 Sodium Level 142 Potassium Level 4.9 Chloride Level 102 Carbon Dioxide Level 26 Anion Gap 19 H Blood Urea Nitrogen 32 H Creatinine 1.30 H Glucose Level 148 Calcium Level 9.7 Total Bilirubin 0.3 Direct Bilirubin 0.00 Indirect Bilirubin 0.3 Aspartate Amino Transf (AST/SGOT) 29 Alanine Aminotransferase (ALT/SGPT) 37 Alkaline Phosphatase 103 Total Protein 7.4 Albumin 3.5 Globulin 3.90 H Albumin/Globulin Ratio 0.89 Lab Scanned Report REFERENCE LAB Urine Color YELLOW Urine Clarity CLEAR Urine pH 6.0 Urine Specific [place] 1.010 Urine Ketones NEGATIVE Urine Nitrite NEGATIVE Urine Bilirubin NEGATIVE Urine Urobilinogen NEGATIVE Urine Leukocyte Esterase NEGATIVE Urine Microscopic RBC 1 Urine Microscopic WBC 2 Urine Bacteria FEW A Urine Hemoglobin NEGATIVE Urine Glucose 1+ H Urine Total Protein 1+ H Bedside Glucose 131 Medications Medications Current Medications Levetiracetam (Keppra 500 Mg/ 100ml (Pmx)) 100 ml @ 400 mls/hr Q12 IVPB Last administered on 01/26/17 08:30; Admin Dose 400 MLS/HR; Start 01/17/17 at 09:00 Metoprolol Tartrate (Lopressor) 5 mg Q4 PRN IV NOTE Last administered on 04:21; Admin Dose 5 MG; Start 01/17/17 at 00:30 Miscellaneous Information 1 ea NOTE XX ; Start 01/17/17 at 10:00 Glucose (Glutose) 15 gm Q15M PRN PO DECREASED GLUCOSE; Start 01/17/17 at 10:00 Glucose (Glutose) 22.5 gm Q15M PRN PO DECREASED GLUCOSE; Start 01/17/17 at 10: 00 Dextrose (D50w Syringe) 25 ml Q15M PRN IV DECREASED GLUCOSE; Start 01/17/17 at 10:00 Dextrose (D50w Syringe) 50 ml Q15M PRN IV DECREASED GLUCOSE; Start 01/17/17 at 10:00 Glucagon (Glucagen) 1 mg Q15M PRN IM DECREASED GLUCOSE; Start 01/17/17 at 10:00 Glucose (Glutose) 15 gm Q15M PRN BUCCAL DECREASED GLUCOSE; Start 01/17/17 at 10 :00 Collagenase (Santyl) 1 applic DAILY TOP Last administered on 01/26/17 08:38; Admin Dose 1 APPLIC; Start 01/17/17 at 21:00 Aspirin (Aspirin) 81 mg DAILY PO Last administered on 01/26/17 08:30; Admin Dose 81 MG; Start 01/21/17 at 09:00 IV Flush (NS 10 ml) 10 ml PRN PRN IV IV PROTOCOL; Start 01/22/17 at 12:00 Enoxaparin Sodium (Lovenox) 60 mg DAILY SC Last administered on 01/26/17 08:36 ; Admin Dose 60 MG; Start 01/22/17 at 15:00 Metoprolol Tartrate (Lopressor) 2.5 mg Q6 IV Last administered on 01/26/17 12: 00; Admin Dose 2.5 MG; Start 01/23/17 at 13:30 Insulin Aspart (Novolog Insulin Pen) NOVOLOG *MILD* ALGORI... Q6 SC ; Start at 18:00 Miscellaneous Information (Pending Santyl Order For Wound Care) This patient dunaway... PRN PRN XX WOUND CARE; Start 01/24/17 at 07:30 Bisacodyl 10 mg 10 mg DAILY PRN [place] CONSTIPATION Last administered on 01/25/17 17:37; Admin Dose 10 MG; Start 01/25/17 at 16:30 Piperacillin Sod/ Tazobactam Sod (Zosyn 3.375gm/ 100 ml (Pmx)) 100 ml @ 200 mls /hr Q6 IVPB Last administered on 01/26/17 11:59; Admin Dose 200 MLS/HR; Start 01/26/17 at 10:00 Acetaminophen (Tylenol Liquid) 650 mg Q4H PRN NGT PAIN AND OR ELEVATED TEMP Last administered on 01/26/17t 09:31; Admin Dose 650 MG; Start 01/26/17 at 09:00 LAWRENCE PICKERING Jan 26, 2017 13:11
--- NOTE | 2017-01-26 14:57 | CONS ---
Date/Time of Note Date/Time of Note DATE: 01/26/17 TIME: 14:55 Assessment/Plan Assessment/Plan Chief Complaint/Hosp Course IMP: 1. AF-rate controlled/Trop negative x 3 2.Hypotension-borderline 3.encephalopathy/ams 4.coagulopathy-now decreased with coumadin held 5. Acute Renal failure-? secondary to vanc 6.Leukocytosis 7. Cardiomyopathy-EF 45% 8. Cephalic vein thrombosis Recc: -Tele -serial ecg's -Lovenox -Continue keppra/abx's/acyclovir -Follow MS closely with ongoing neuro eval -IVP BB for rate control and will increase frequency and dose to assure good HR control -will give additional dose of digoxin IVP Problems: Consultation Date/Type/Reason Admit Date/Time Jan 16, 2017 at 15:19 Initial Consult Date 01/17/17 Type of Consultation: cardiology Reason for Consultation AF Referring Provider: LAWRENCE PICKERING Exam/Review of Systems Vital Signs Vitals Vital Signs Date Time Temp Pulse Resp B/P Pulse Ox O2 Delivery O2 Flow Rate FiO2 01/26/17 13:05 70 01/26/17 12:39 98.0 20 100/58 98 Room Air 01/25/17 06:15 21 Intake and Output 01/25/17 01/25/17 01/26/17 15:00 23:00 07:00 Intake Total 1180 ml Output Total 980 ml Balance -980 ml 1180 ml Exam Review of Systems: CONSTITUTIONAL: No fevers, chills. PULMONARY: No sob CARDIOVASCULAR: No chest pain/palpitations GASTROINTESTINAL: No nausea/vomiting. GENITOURINARY: No hematuria/dysuria. MUSCULOSKELETAL: No myagias/arthalgias. PSYCHIATRIC: The patient denies depression. NEUROLOGIC: encephalopathic Constitutional: other (encephalopathy) Psych: no complaints Head: normocephalic ENMT: mucosa pink and moist Neck: jvd (8 cm water), supple Respiratory: diminished breath sounds (at bases/B) Cardiovascular: irregular rhythm Gastrointestinal: non-tender, soft Musculoskeletal: muscle tone (normal) Extremities: edema (none) Neurological: unresponsive Results Result Diagram: 01/26/17 0628 01/26/17 0943 Results 24 hrs Laboratory Tests Test 01/25/17 17:24 01/26/17 00:11 01/26/17 05:42 01/26/17 06:28 Bedside Glucose 131 115 157 White Blood Count 11.6 H Red Blood Count 4.48 Hemoglobin 11.8 L Hematocrit 35.9 L Mean Corpuscular Volume 80.1 L Mean Corpuscular Hemoglobin 26.3 L Mean Corpuscular Hemoglobin Concent 32.9 Red Cell Distribution Width 16.2 H Platelet Count 435 #H Mean Platelet Volume 11.7 H Neutrophils % 85.6 H Lymphocytes % 6.7 L Monocytes % 5.8 Eosinophils % 0.7 Basophils % 0.6 Nucleated Red Blood Cells % 0.0 Neutrophils # 10.0 H Lymphocytes # 0.8 Monocytes # 0.7 Eosinophils # 0.1 Basophils # 0.1 Nucleated Red Blood Cells # 0.0 Test 01/26/17 09:43 01/26/17 09:46 01/26/17 11:27 01/26/17 12:06 Sodium Level 142 Potassium Level 4.9 Chloride Level 102 Carbon Dioxide Level 26 Anion Gap 19 H Blood Urea Nitrogen 32 H Creatinine 1.30 H Glucose Level 148 Calcium Level 9.7 Total Bilirubin 0.3 Direct Bilirubin 0.00 Indirect Bilirubin 0.3 Aspartate Amino Transf (AST/SGOT) 29 Alanine Aminotransferase (ALT/SGPT) 37 Alkaline Phosphatase 103 Total Protein 7.4 Albumin 3.5 Globulin 3.90 H Albumin/Globulin Ratio 0.89 Lab Scanned Report REFERENCE LAB Urine Color YELLOW Urine Clarity CLEAR Urine pH 6.0 Urine Specific [place] 1.010 Urine Ketones NEGATIVE Urine Nitrite NEGATIVE Urine Bilirubin NEGATIVE Urine Urobilinogen NEGATIVE Urine Leukocyte Esterase NEGATIVE Urine Microscopic RBC 1 Urine Microscopic WBC 2 Urine Bacteria FEW A Urine Hemoglobin NEGATIVE Urine Glucose 1+ H Urine Total Protein 1+ H Bedside Glucose 131 Medications Medications Current Medications Levetiracetam (Keppra 500 Mg/ 100ml (Pmx)) 100 ml @ 400 mls/hr Q12 IVPB Last administered on 01/26/17 08:30; Admin Dose 400 MLS/HR; Start 01/17/17 at 09:00 Metoprolol Tartrate (Lopressor) 5 mg Q4 PRN IV NOTE Last administered on 04:21; Admin Dose 5 MG; Start 01/17/17 at 00:30 Miscellaneous Information 1 ea NOTE XX ; Start 01/17/17 at 10:00 Glucose (Glutose) 15 gm Q15M PRN PO DECREASED GLUCOSE; Start 01/17/17 at 10:00 Glucose (Glutose) 22.5 gm Q15M PRN PO DECREASED GLUCOSE; Start 01/17/17 at 10: 00 Dextrose (D50w Syringe) 25 ml Q15M PRN IV DECREASED GLUCOSE; Start 01/17/17 at 10:00 Dextrose (D50w Syringe) 50 ml Q15M PRN IV DECREASED GLUCOSE; Start 01/17/17 at 10:00 Glucagon (Glucagen) 1 mg Q15M PRN IM DECREASED GLUCOSE; Start 01/17/17 at 10:00 Glucose (Glutose) 15 gm Q15M PRN BUCCAL DECREASED GLUCOSE; Start 01/17/17 at 10 :00 Collagenase (Santyl) 1 applic DAILY TOP Last administered on 01/26/17 08:38; Admin Dose 1 APPLIC; Start 01/17/17 at 21:00 Aspirin (Aspirin) 81 mg DAILY PO Last administered on 01/26/17 08:30; Admin Dose 81 MG; Start 01/21/17 at 09:00 IV Flush (NS 10 ml) 10 ml PRN PRN IV IV PROTOCOL; Start 01/22/17 at 12:00 Enoxaparin Sodium (Lovenox) 60 mg DAILY SC Last administered on 01/26/17 08:36 ; Admin Dose 60 MG; Start 01/22/17 at 15:00 Metoprolol Tartrate (Lopressor) 2.5 mg Q6 IV Last administered on 01/26/17 12: 00; Admin Dose 2.5 MG; Start 01/23/17 at 13:30 Insulin Aspart (Novolog Insulin Pen) NOVOLOG *MILD* ALGORI... Q6 SC ; Start at 18:00 Miscellaneous Information (Pending Santyl Order For Wound Care) This patient dunaway... PRN PRN XX WOUND CARE; Start 01/24/17 at 07:30 Bisacodyl 10 mg 10 mg DAILY PRN [place] CONSTIPATION Last administered on 01/25/17 17:37; Admin Dose 10 MG; Start 01/25/17 at 16:30 Piperacillin Sod/ Tazobactam Sod (Zosyn 3.375gm/ 100 ml (Pmx)) 100 ml @ 200 mls /hr Q6 IVPB Last administered on 01/26/17 11:59; Admin Dose 200 MLS/HR; Start 01/26/17 at 10:00 Acetaminophen (Tylenol Liquid) 650 mg Q4H PRN NGT PAIN AND OR ELEVATED TEMP Last administered on 01/26/17t 09:31; Admin Dose 650 MG; Start 01/26/17 at 09:00 MINOO REY Jan 26, 2017 14:57
[2017-01-26] MEDS ORDERED: DIGOXIN 500 MCG INJ IV ONE (15:00)
[2017-01-27] VITALS (12 sets, daily range): BP systolic 92–110; BP diastolic 51–70; PULSE 75–90; RESP 18–20
[2017-01-27] MEDS: PIPER-TAZO 3.375 GM IV (PMX) 100 ML IVPB SCH ×4 (00:29→18:28)
[2017-01-27] MEDS: METOPROLOL 5 MG INJ IV SCH ×6 (01:00→21:26)
[2017-01-27] MEDS: INSULIN ASPART [NOVOLOG] 3 ML PEN SC SCH ×4 (06:00→18:00)
--- NOTE | 2017-01-27 06:08 | CONS ---
DATE OF ADMISSION: 01/16/2017 DATE OF CONSULTATION: 01/20/2017 HISTORY: The patient is a 61-year-old admitted to [facility] with decreased mini mental status, lack of communication, suggestive of underlying Wernicke's encephalopathy. We started her on thiamine, folic acid, multivitamins and with slight improvement. On exam today the patient opened her eyes to painful stimuli, localized the pain, moving both upper extremities against gravity without difficulty. Hard to the patient's wrist. Abdomen soft no tenderness. ASSESSMENT AND PLAN: 1. The patient is 61 years old with underlying Wernicke's encephalopathy, who thiamine, folic acid and multivitamins. Suspected underlying stroke. I am going to ask for help. Aspirin 81 mg for stroke prophylaxis. 2. Seizure precautions with Keppra 500 mg. 3. Will follow up the patient with MRI with contrast which we had ordered yesterday; however, it was not done because of the renal insufficiency. 4. Stroke workup and follow up the patient with carotid Doppler and 2-D echocardiogram. Dictated By: Connor Lozano MD /ange/flaca /Document#: [id number]
[2017-01-27 07:15] LABS: BASOPHIL # 0.1 10^3/ul (0.0-0.1); BASOPHILS % 0.9 % (0.0-2.0); EOSINOPHILS # 0.3 10^3/ul (0.0-0.5); EOSINOPHILS % 2.1 % (0.0-7.0); HEMATOCRIT 35.3 % (37.0-47.0); HEMOGLOBIN 11.2 g/dl (12.0-16.0); LYMPHOCYTES # 1.5 10^3/ul (0.8-2.9); LYMPHOCYTES % 11.3 % (15.0-51.0); MEAN CORPUSCULAR HEMOGLOBIN 25.8 pg (29.0-33.0); MEAN CORPUSCULAR HGB CONC 31.7 g/dl (32.0-37.0); MEAN CORPUSCULAR VOLUME 81.3 fl (82.0-101.0); MEAN PLATELET VOLUME 11.7 fl (7.4-10.4); MONOCYTE # 0.7 10^3/ul (0.3-0.9); NEUTROPHIL # 10.5 10^3/ul (1.6-7.5); NEUTROPHILS % 80.2 % (39.0-77.0); PLATELET COUNT 427 10^3/UL (140-415); RED BLOOD COUNT 4.34 10^6/ul (4.20-5.40); RED CELL DISTRIBUTION WIDTH 16.5 % (11.5-14.5); WHITE BLOOD COUNT 13.1 10^3/ul (4.8-10.8)
[2017-01-27 08:04] LABS: CALCIUM 9.5 mg/dl (8.4-10.2); CREATININE 1.36 mg/dl (0.44-1.00); POTASSIUM 4.4 mmol/L (3.5-5.1)
[2017-01-27] MEDS: COLLAGENASE 30 GM TUBE TOP SCH (08:48)
--- NOTE | 2017-01-27 09:25 | CONS ---
Date/Time of Note Date/Time of Note DATE: 01/27/17 TIME: 09:23 Assessment/Plan Assessment/Plan Chief Complaint/Hosp Course assessment/impression: - low grade leukocytosis, ?infectious process vs. neurological process - acute encephalopathy. CSF from 01/19/2017: WBC=3, RBC=0, glu 53, pro=61, CSF ( [place] serology negative, HSV negative, cocci CF negative, encephalitis meningitis panel could not be done due to a lack of sample), serum ([place] PCR negative, crypto antigen negative, cocci CF negative, histo CF negative). my order of crypto in CSF was cancelled and no reason given - bacteremia due to CoNS, probable contaminant. 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) - A fib - h/o DVT - h/o LLE ischemia s/p thrombolysis and subsequent open thrombectomy and fasciotomy at [facility] 09/2015 - h/o thrombus on DEBBIE per records from [facility] recommendations: - pending results: blood cultures, urine culture - continue empiric pip/tazo (01/26/2017-) Problems: Consultation Date/Type/Reason Admit Date/Time Jan 16, 2017 at 15:19 Initial Consult Date 01/17/17 Type of Consultation: ID Referring Provider: LAWRENCE PICKERING 24 HR Interval Summary Subjective hx not possible: pt non-verbal Exam/Review of Systems Vital Signs Vitals Vital Signs Date Time Temp Pulse Resp B/P Pulse Ox O2 Delivery O2 Flow Rate FiO2 01/27/17 08:18 75 01/27/17 07:14 98.5 110/51 97 01/27/17 04:12 18 01/26/17 12:39 Room Air 01/25/17 06:15 21 Intake and Output 01/26/17 01/26/17 01/27/17 15:00 23:00 07:00 Intake Total 300 ml 850 ml 800 ml Output Total 880 ml 700 ml Balance 300 ml -30 ml 100 ml Exam Constitutional: frail, non-verbal Psych: confusion Head: atraumatic, normocephalic Eyes: nl conjunctiva, nl lids, other (pupil unreactive to light) ENMT: nl external ears & nose, nl nasal mucosa & septum Respiratory: wheezing Cardiovascular: nl pulses, regular rate and rhythm Gastrointestinal: non-tender, soft Genitourinary - Female: other (FC) Musculoskeletal: nl extremities to inspection Extremities: No edema Neurological: lethargic Results Result Diagram: 01/27/17 0702 01/27/17 0700 Results 24 hrs Laboratory Tests Test 01/26/17 09:43 01/26/17 09:46 01/26/17 11:27 01/26/17 12:06 Sodium Level 142 Potassium Level 4.9 Chloride Level 102 Carbon Dioxide Level 26 Anion Gap 19 H Blood Urea Nitrogen 32 H Creatinine 1.30 H Glucose Level 148 Calcium Level 9.7 Total Bilirubin 0.3 Direct Bilirubin 0.00 Indirect Bilirubin 0.3 Aspartate Amino Transf (AST/SGOT) 29 Alanine Aminotransferase (ALT/SGPT) 37 Alkaline Phosphatase 103 Total Protein 7.4 Albumin 3.5 Globulin 3.90 H Albumin/Globulin Ratio 0.89 Lab Scanned Report REFERENCE LAB Urine Color YELLOW Urine Clarity CLEAR Urine pH 6.0 Urine Specific [place] 1.010 Urine Ketones NEGATIVE Urine Nitrite NEGATIVE Urine Bilirubin NEGATIVE Urine Urobilinogen NEGATIVE Urine Leukocyte Esterase NEGATIVE Urine Microscopic RBC 1 Urine Microscopic WBC 2 Urine Bacteria FEW A Urine Hemoglobin NEGATIVE Urine Glucose 1+ H Urine Total Protein 1+ H Bedside Glucose 131 Test 01/26/17 17:48 01/27/17 00:21 01/27/17 05:04 01/27/17 07:00 Bedside Glucose 145 108 138 Sodium Level 143 Potassium Level 4.4 Chloride Level 103 Carbon Dioxide Level 26 Anion Gap 18 H Blood Urea Nitrogen 33 H Creatinine 1.36 H Glucose Level 118 Calcium Level 9.5 Test 01/27/17 07:02 White Blood Count 13.1 H Red Blood Count 4.34 Hemoglobin 11.2 L Hematocrit 35.3 L Mean Corpuscular Volume 81.3 L Mean Corpuscular Hemoglobin 25.8 L Mean Corpuscular Hemoglobin Concent 31.7 L Red Cell Distribution Width 16.5 H Platelet Count 427 H Mean Platelet Volume 11.7 H Neutrophils % 80.2 H Lymphocytes % 11.3 L Monocytes % 5.0 Eosinophils % 2.1 Basophils % 0.9 Nucleated Red Blood Cells % 0.0 Neutrophils # 10.5 H Lymphocytes # 1.5 Monocytes # 0.7 Eosinophils # 0.3 Basophils # 0.1 Nucleated Red Blood Cells # 0.0 Medications Medications Current Medications Miscellaneous Information 1 ea NOTE XX ; Start 01/17/17 at 10:00 Glucose (Glutose) 15 gm Q15M PRN PO DECREASED GLUCOSE; Start 01/17/17 at 10:00 Glucose (Glutose) 22.5 gm Q15M PRN PO DECREASED GLUCOSE; Start 01/17/17 at 10: 00 Dextrose (D50w Syringe) 25 ml Q15M PRN IV DECREASED GLUCOSE; Start 01/17/17 at 10:00 Dextrose (D50w Syringe) 50 ml Q15M PRN IV DECREASED GLUCOSE; Start 01/17/17 at 10:00 Glucagon (Glucagen) 1 mg Q15M PRN IM DECREASED GLUCOSE; Start 01/17/17 at 10:00 Glucose (Glutose) 15 gm Q15M PRN BUCCAL DECREASED GLUCOSE; Start 01/17/17 at 10 :00 Collagenase (Santyl) 1 applic DAILY TOP Last administered on 01/27/17 08:48; Admin Dose 1 APPLIC; Start 01/17/17 at 21:00 IV Flush (NS 10 ml) 10 ml PRN PRN IV IV PROTOCOL; Start 01/22/17 at 12:00 Insulin Aspart (Novolog Insulin Pen) NOVOLOG *MILD* ALGORI... Q6 SC Last administered on 01/26/17 18:02; Admin Dose 1 UNIT; Start 01/23/17 at 18:00 Miscellaneous Information (Pending Santyl Order For Wound Care) This patient dunaway... PRN PRN XX WOUND CARE; Start 01/24/17 at 07:30 Bisacodyl 10 mg 10 mg DAILY PRN [place] CONSTIPATION Last administered on 01/25/17 17:37; Admin Dose 10 MG; Start 01/25/17 at 16:30 Piperacillin Sod/ Tazobactam Sod (Zosyn 3.375gm/ 100 ml (Pmx)) 100 ml @ 200 mls /hr Q6 IVPB Last administered on 01/27/17 05:07; Admin Dose 200 MLS/HR; Start 01/26/17 at 10:00 Acetaminophen (Tylenol Liquid) 650 mg Q4H PRN NGT PAIN AND OR ELEVATED TEMP Last administered on 01/26/17 09:31; Admin Dose 650 MG; Start 01/26/17 at 09:00 Metoprolol Tartrate (Lopressor) 2.5 mg Q4H PRN IV NOTE; Start 01/26/17 at 15:00 Metoprolol Tartrate (Lopressor) 5 mg Q4 IV Last administered on 01/27/17 08:48 ; Admin Dose 5 MG; Start 01/26/17 at 17:00 Enoxaparin Sodium (Lovenox) 60 mg Q24H SC Last administered on 01/26/17 20:41 ; Admin Dose 60 MG; Start 01/26/17 at 19:30 TYE STYLES M.D. Jan 27, 2017 09:25
--- NOTE | 2017-01-27 09:49 | CONS ---
Date/Time of Note Date/Time of Note DATE: 01/27/17 TIME: 09:47 Consult Date/Type/Reason Admit Date/Time Jan 16, 2017 at 15:19 Initial Consult Date 01/26/17 Type of Consultation: Neurology Reason for Consultation eval for AMS Ordering Provider: LAWRENCE PICKERING Subjective remains unresponsive spoke with son and family friend Keisha over the phone last night- they are requesting another MRI and MRA study to be done EEG has also been ordered, they are planning for PEG Objective Vital Signs Date Time Temp Pulse Resp B/P Pulse Ox O2 Delivery O2 Flow Rate FiO2 01/27/17 08:18 75 01/27/17 07:14 98.5 110/51 97 01/27/17 04:12 18 01/26/17 12:39 Room Air 01/25/17 06:15 21 Intake and Output 01/26/17 01/26/17 01/27/17 15:00 23:00 07:00 Intake Total 300 ml 850 ml 800 ml Output Total 880 ml 700 ml Balance 300 ml -30 ml 100 ml Exam unresponsive no response to sternal rub CN: pupils 2 mm sluggish, corneals intact, right facial asymmetry NGT feedings Motor: no withdrawal to noxious in any extremities flaccid throughout no withdrawal to noxious reflexes 1+ throughout toes are mute Results/Medications Result Diagram: 01/27/17 0702 01/27/17 0700 Results 24 hrs Laboratory Tests Test 01/26/17 11:27 01/26/17 12:06 01/26/17 17:48 01/27/17 00:21 Urine Color YELLOW Urine Clarity CLEAR Urine pH 6.0 Urine Specific [place] 1.010 Urine Ketones NEGATIVE Urine Nitrite NEGATIVE Urine Bilirubin NEGATIVE Urine Urobilinogen NEGATIVE Urine Leukocyte Esterase NEGATIVE Urine Microscopic RBC 1 Urine Microscopic WBC 2 Urine Bacteria FEW A Urine Hemoglobin NEGATIVE Urine Glucose 1+ H Urine Total Protein 1+ H Bedside Glucose 131 145 108 Test 01/27/17 05:04 01/27/17 07:00 01/27/17 07:02 Bedside Glucose 138 Sodium Level 143 Potassium Level 4.4 Chloride Level 103 Carbon Dioxide Level 26 Anion Gap 18 H Blood Urea Nitrogen 33 H Creatinine 1.36 H Glucose Level 118 Calcium Level 9.5 White Blood Count 13.1 H Red Blood Count 4.34 Hemoglobin 11.2 L Hematocrit 35.3 L Mean Corpuscular Volume 81.3 L Mean Corpuscular Hemoglobin 25.8 L Mean Corpuscular Hemoglobin Concent 31.7 L Red Cell Distribution Width 16.5 H Platelet Count 427 H Mean Platelet Volume 11.7 H Neutrophils % 80.2 H Lymphocytes % 11.3 L Monocytes % 5.0 Eosinophils % 2.1 Basophils % 0.9 Nucleated Red Blood Cells % 0.0 Neutrophils # 10.5 H Lymphocytes # 1.5 Monocytes # 0.7 Eosinophils # 0.3 Basophils # 0.1 Nucleated Red Blood Cells # 0.0 Medications Current Medications Miscellaneous Information 1 ea NOTE XX ; Start 01/17/17 at 10:00 Glucose (Glutose) 15 gm Q15M PRN PO DECREASED GLUCOSE; Start 01/17/17 at 10:00 Glucose (Glutose) 22.5 gm Q15M PRN PO DECREASED GLUCOSE; Start 01/17/17 at 10: 00 Dextrose (D50w Syringe) 25 ml Q15M PRN IV DECREASED GLUCOSE; Start 01/17/17 at 10:00 Dextrose (D50w Syringe) 50 ml Q15M PRN IV DECREASED GLUCOSE; Start 01/17/17 at 10:00 Glucagon (Glucagen) 1 mg Q15M PRN IM DECREASED GLUCOSE; Start 01/17/17 at 10:00 Glucose (Glutose) 15 gm Q15M PRN BUCCAL DECREASED GLUCOSE; Start 01/17/17 at 10 :00 Collagenase (Santyl) 1 applic DAILY TOP Last administered on 01/27/17 08:48; Admin Dose 1 APPLIC; Start 01/17/17 at 21:00 IV Flush (NS 10 ml) 10 ml PRN PRN IV IV PROTOCOL; Start 01/22/17 at 12:00 Insulin Aspart (Novolog Insulin Pen) NOVOLOG *MILD* ALGORI... Q6 SC Last administered on 01/26/17 18:02; Admin Dose 1 UNIT; Start 01/23/17 at 18:00 Miscellaneous Information (Pending Santyl Order For Wound Care) This patient dunaway... PRN PRN XX WOUND CARE; Start 01/24/17 at 07:30 Bisacodyl 10 mg 10 mg DAILY PRN [place] CONSTIPATION Last administered on 01/25/17 17:37; Admin Dose 10 MG; Start 01/25/17 at 16:30 Piperacillin Sod/ Tazobactam Sod (Zosyn 3.375gm/ 100 ml (Pmx)) 100 ml @ 200 mls /hr Q6 IVPB Last administered on 01/27/17 05:07; Admin Dose 200 MLS/HR; Start 01/26/17 at 10:00 Acetaminophen (Tylenol Liquid) 650 mg Q4H PRN NGT PAIN AND OR ELEVATED TEMP Last administered on 01/26/17 09:31; Admin Dose 650 MG; Start 01/26/17 at 09:00 Metoprolol Tartrate (Lopressor) 2.5 mg Q4H PRN IV NOTE; Start 01/26/17 at 15:00 Metoprolol Tartrate (Lopressor) 5 mg Q4 IV Last administered on 01/27/17 08:48 ; Admin Dose 5 MG; Start 01/26/17 at 17:00 Enoxaparin Sodium (Lovenox) 60 mg Q24H SC Last administered on 01/26/17 20:41 ; Admin Dose 60 MG; Start 01/26/17 at 19:30 Assessment/Plan Chief Complaint/Hosp Course 61 year old female with hx of afib, MARIELA, HTN, CVA x2, LE DVT s/p fasciotomy and IVC filter recent cardiac cath was off coumadin on admission 01/16 admitted with AMS and lactic acidosis found unresponsive by family underwent CPR, ischemic cardiomyopathy EF: 45%. MRI Brain showed medial thalamic restricted diffusion, small vessel disease. Infectious work up including LP done: unrevealing. She is currently on Keppra prophylaxis. Unclear if she has ever had documented seizures. Recommendations: bilateral thalamic infarctions can often produce a state of persistent unresponsiveness, discussed with family over the phone usually this is associated with a very poor prognosis for meaningful neurologic recovery unclear if this patient has ever had seizures, i will discontinue the Keppra as thalamic seizures are rare, usually seizures arise from ischemic injury in cortical regions may obtain a Routine EEG to further evaluate MRI Brain and MRA Head ordered i do not believe a brain biopsy would not be helpful in this case as i do not suspect an underlying neuro-infectious process or a vasculitis would recommend PEG for nutrition if this is consistent with goals of care, also recommend palliative care consultation Problems: RAFA TANG MD Jan 27, 2017 09:49
--- NOTE | 2017-01-27 12:58 | CONS ---
Date/Time of Note Date/Time of Note DATE: 01/27/17 TIME: 12:55 Assessment/Plan Assessment/Plan Chief Complaint/Hosp Course IMP: 1. AF-rate controlled/Trop negative x 3 2.Hypotension-borderline 3.encephalopathy/ams 4.coagulopathy-now decreased with coumadin held 5. Acute Renal failure-? secondary to vanc 6.Leukocytosis 7. Cardiomyopathy-EF 45% 8. Cephalic vein thrombosis Recc: -Tele -serial ecg's -Lovenox -Continue keppra/abx's/acyclovir -Follow MS closely with ongoing neuro eval -IVP BB for rate control and will decrease dose to assure tolerates -s/p dose IVP digoxin -for PEG Problems: Consultation Date/Type/Reason Admit Date/Time Jan 16, 2017 at 15:19 Initial Consult Date 01/17/17 Type of Consultation: cardiology Reason for Consultation AF Referring Provider: LAWRENCE PICKERING Exam/Review of Systems Vital Signs Vitals Vital Signs Date Time Temp Pulse Resp B/P Pulse Ox O2 Delivery O2 Flow Rate FiO2 01/27/17 12:22 76 01/27/17 11:06 99.5 18 100/70 96 01/26/17 12:39 Room Air 01/25/17 06:15 21 Intake and Output 01/26/17 01/26/17 01/27/17 15:00 23:00 07:00 Intake Total 300 ml 850 ml 800 ml Output Total 880 ml 700 ml Balance 300 ml -30 ml 100 ml Exam Review of Systems: CONSTITUTIONAL: No fevers, chills. PULMONARY: No sob CARDIOVASCULAR: No chest pain/palpitations GASTROINTESTINAL: No nausea/vomiting. GENITOURINARY: No hematuria/dysuria. MUSCULOSKELETAL: No myagias/arthalgias. PSYCHIATRIC: The patient denies depression. NEUROLOGIC: encephalopathic Constitutional: alert Psych: no complaints Head: normocephalic ENMT: mucosa pink and moist Neck: jvd (9 cm water), supple Respiratory: diminished breath sounds (at bases/B) Cardiovascular: regular rate and rhythm Gastrointestinal: non-tender, soft Musculoskeletal: muscle tone (normal) Extremities: edema (none) Neurological: other (No focal deficits) Results Result Diagram: 01/27/17 0702 01/27/17 0700 Results 24 hrs Laboratory Tests Test 01/26/17 17:48 01/27/17 00:21 01/27/17 05:04 01/27/17 07:00 Bedside Glucose 145 108 138 Sodium Level 143 Potassium Level 4.4 Chloride Level 103 Carbon Dioxide Level 26 Anion Gap 18 H Blood Urea Nitrogen 33 H Creatinine 1.36 H Glucose Level 118 Calcium Level 9.5 Test 01/27/17 07:02 01/27/17 11:27 01/27/17 12:17 White Blood Count 13.1 H Red Blood Count 4.34 Hemoglobin 11.2 L Hematocrit 35.3 L Mean Corpuscular Volume 81.3 L Mean Corpuscular Hemoglobin 25.8 L Mean Corpuscular Hemoglobin Concent 31.7 L Red Cell Distribution Width 16.5 H Platelet Count 427 H Mean Platelet Volume 11.7 H Neutrophils % 80.2 H Lymphocytes % 11.3 L Monocytes % 5.0 Eosinophils % 2.1 Basophils % 0.9 Nucleated Red Blood Cells % 0.0 Neutrophils # 10.5 H Lymphocytes # 1.5 Monocytes # 0.7 Eosinophils # 0.3 Basophils # 0.1 Nucleated Red Blood Cells # 0.0 Lab Scanned Report REFERENCE LAB Bedside Glucose 122 Medications Medications Current Medications Miscellaneous Information 1 ea NOTE XX ; Start 01/17/17 at 10:00 Glucose (Glutose) 15 gm Q15M PRN PO DECREASED GLUCOSE; Start 01/17/17 at 10:00 Glucose (Glutose) 22.5 gm Q15M PRN PO DECREASED GLUCOSE; Start 01/17/17 at 10: 00 Dextrose (D50w Syringe) 25 ml Q15M PRN IV DECREASED GLUCOSE; Start 01/17/17 at 10:00 Dextrose (D50w Syringe) 50 ml Q15M PRN IV DECREASED GLUCOSE; Start 01/17/17 at 10:00 Glucagon (Glucagen) 1 mg Q15M PRN IM DECREASED GLUCOSE; Start 01/17/17 at 10:00 Glucose (Glutose) 15 gm Q15M PRN BUCCAL DECREASED GLUCOSE; Start 01/17/17 at 10 :00 Collagenase (Santyl) 1 applic DAILY TOP Last administered on 01/27/17t 08:48; Admin Dose 1 APPLIC; Start 01/17/17 at 21:00 IV Flush (NS 10 ml) 10 ml PRN PRN IV IV PROTOCOL; Start 01/22/17 at 12:00 Insulin Aspart (Novolog Insulin Pen) NOVOLOG *MILD* ALGORI... Q6 SC Last administered on 01/26/17 18:02; Admin Dose 1 UNIT; Start 01/23/17 at 18:00 Miscellaneous Information (Pending Santyl Order For Wound Care) This patient dunaway... PRN PRN XX WOUND CARE; Start 01/24/17 at 07:30 Bisacodyl 10 mg 10 mg DAILY PRN [place] CONSTIPATION Last administered on 01/25/17 17:37; Admin Dose 10 MG; Start 01/25/17 at 16:30 Piperacillin Sod/ Tazobactam Sod (Zosyn 3.375gm/ 100 ml (Pmx)) 100 ml @ 200 mls /hr Q6 IVPB Last administered on 01/27/17 12:14; Admin Dose 200 MLS/HR; Start 01/26/17 at 10:00 Acetaminophen (Tylenol Liquid) 650 mg Q4H PRN NGT PAIN AND OR ELEVATED TEMP Last administered on 01/26/17 09:31; Admin Dose 650 MG; Start 01/26/17 at 09:00 Metoprolol Tartrate (Lopressor) 2.5 mg Q4H PRN IV NOTE; Start 01/26/17 at 15:00 Metoprolol Tartrate (Lopressor) 5 mg Q4 IV Last administered on 01/27/17 08:48 ; Admin Dose 5 MG; Start 01/26/17 at 17:00 Enoxaparin Sodium (Lovenox) 60 mg Q24H SC Last administered on 01/26/17 20:41 ; Admin Dose 60 MG; Start 01/26/17 at 19:30 MINOO REY Jan 27, 2017 12:58
--- NOTE | 2017-01-27 13:13 | CONS ---
DATE OF ADMISSION: 01/16/2017 DATE OF CONSULTATION: 01/17/2017 REASON FOR CONSULTATION: Atrial fibrillation. REQUESTING PHYSICIAN: Kana Valdovinos MD HISTORY OF PRESENT ILLNESS: The patient is a 61-year-old female with a history of atrial fibrillation, mitral stenosis, prior CVA, hypertension who was initially found in the morning by her family to not be able to be arousable. The patient was brought here to [facility] where, upon arrival, patient was afebrile with temperature 96.7, blood pressure 109/91, pulse 75, respiratory rate 16, saturating 95 percent. The patient's labs revealed white blood cell count 3.3, hemoglobin 12.7, platelet count 275,000. Sodium 145, potassium 5.1, creatinine 0.9, BUN 17. Troponin negative. TSH was 2.15. Free T4 1.56. INR 1.62. Tox screen negative. UA negative. The patient underwent an arterial ultrasound revealing normal right lower extremity arterial Doppler. 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 No hemorrhage or mass effect. The patient additionally underwent a head CT revealing no acute intracranial abnormalities, and a chest x-ray with cardiomegaly and clear lungs. The patient does not have an electrocardiogram on the chart for my review at this time. The patient has been admitted to the ICU where she remains at this time nonarousable, minimally responsive to sternal rub with grimacing of the face, with ongoing atrial fibrillation in the highs 90s to low 100s, and blood pressures in the 90s. PAST MEDICAL HISTORY: As above in HPI with patient additionally having a history of probably recent arterial insufficiency, critical limb ischemia status post attempted possible embolectomy complicated by most likely compartment syndrome status post fasciotomy. MEDICATION: Currently in the hospital acyclovir, insulin, meropenem, vancomycin, Keppra q. 12, metoprolol 5 mg IV push q.4 p.r.n. ALLERGIES: NO KNOWN DRUG ALLERGIES. SOCIAL HISTORY: No tobacco, EtOH or illicit drug use. FAMILY HISTORY: No history of sudden cardiac or early CAD. REVIEW OF SYSTEMS: As above in HPI. CONSTITUTIONAL: No fevers or chills. PULMONARY: No current signs of respiratory compromise. GASTROINTESTINAL: No vomiting. GENITOURINARY: No hematuria. MUSCULOSKELETAL: No obvious myalgias or arthralgias, status post fasciotomy in the right lower extremity. PSYCHIATRIC: No documented psych history. NEUROLOGIC: Encephalopathy. PHYSICAL EXAMINATION: VITAL SIGNS: Temperature 99.3, blood pressure 93/54, pulse 110, saturating 95 percent. GENERAL: The patient is sleeping, nonarousable. NECK: JVP approximately 8 cm of water. CHEST: Decreased breath sounds at the bases bilaterally. Upper airway transmitted [____] sounds. HEART: Irregularly-irregular. A 1/6 systolic murmur. Nondisplaced PMI. ABDOMEN: Positive bowel sounds. Soft. EXTREMITIES: Trace edema, status post fasciotomy in lower extremities. One-plus pulses bilaterally to posterior tibial. LABORATORY: As above in [facility] with most recent today INR 1.82, sodium 144, potassium 3.6, creatinine 1.06, BUN 11. White blood cell count 18.7, hemoglobin 12.9, platelet count 342,000. ECG: No electrocardiogram for my review at this time. IMAGING STUDIES: As above in [facility] with chest x-ray on 01/16/2017 revealing cardiomegaly with clear lungs. IMPRESSION: 1. Atrial fibrillation with mild rapid ventricular response in the setting of most probable severe mitral stenosis with a mildly subtherapeutic INR. 2. Mitral stenosis by prior echo in 2010 and by history. The patient has been having procedures done at [facility]. 3. Hypotension, borderline. 4. Altered mental status/encephalopathy. 5. Probable recent critical limb ischemia status post attempted embolectomy and fasciotomy. 6. Probable recent compartment syndrome status post fasciotomy. 7. Coagulopathy secondary to medical therapy, likely from Coumadin. 8. Recent infection, being treated with penicillin. 9. Leukocytosis. 10. Diabetes mellitus. RECOMMENDATIONS: 1. At this time, would maintain patient in ICU telemetry monitoring to follow rhythm and rate control closely. 2. Would continue the patient's broad-spectrum antibiotics and antiviral agents during evaluation of encephalopathy. 3. Ongoing evaluation of encephalopathy per PMD and alternative consultations. 4. Will give patient IV dose of digoxin in order to improve heart rate acutely and continue IV push p.r.n. beta jitendra. 5. Check a 2D echo to further assess patient's ejection fraction, wall motion, mitral valve area, left atrial size. 6. Continue patient's Coumadin with probable need for Lovenox coverage. The patient is subtherapeutic and looks to have had prior thromboembolic complications. 7. The patient is status post TSH and free 4, which both are within normal limits. Thank you for allowing me to take part in the care of this patient. I will continue to follow along very closely with you with recommendations made as patient goes through her inpatient hospital course. Dictated By: Kishor Ramirez /fnt/ec /Document#: [id number] CC: Kana Valdovinos MD;*End*
--- NOTE | 2017-01-27 14:24 | PN ---
Date/Time of Note Date/Time of Note DATE: 01/27/17 TIME: 14:19 Assessment/Plan VTE Prophylaxis VTE Prophylaxis Intervention: SCD's Lines/Catheters IV C[facility]ter Type ([facility]): PICC Line Central line still needed: Yes Urinary Cath still in place: Yes Reason Cath still needed: urinary retention Assessment/Plan Chief Complaint/Hosp Course No change in neuro status, patient's continues to have low-grade fever. Assessment/Plan -Mild leukocytosis with low-grade fevers secondary to possible pneumonia, continue Zosyn, follow up on final cultures monitor chest x-ray. - Bilateral thalamic infarctions, Dr. Payne, neurology consult is appreciated. Continue aspirin - Dysphagia, Dr. Garcia is is following in gastroenterology consultation. Plan for G-tube placement tomorrow. - Staph aureus bacteremia vs contamination, status post antibiotics, 2D echo is negative for vegetation. CSF is unremarkable. Dr. Abarca is following infection disease consultation. - Atrial fibrillation with rapid ventricular response, currently rate is controlled. Dr. Armenta is following and cardiology consultation. - Thrombosis of the bilateral cephalic veins. Continue Lovenox. - Acute kidney injury, Dr. Poole is following in nephrology consultation. - History of CVA - History of hyperlipidemia - Left lower extremity, status post vascular surgery. Further recommendations based on clinical course. Plan of care discussed with Dr. Valdovinos. Problems: Exam/Review of Systems Vital Signs Vitals Vital Signs Date Time Temp Pulse Resp B/P Pulse Ox O2 Delivery O2 Flow Rate FiO2 01/27/17 12:22 76 01/27/17 11:06 99.5 18 100/70 96 01/26/17 12:39 Room Air 01/25/17 06:15 21 Intake and Output 01/26/17 01/26/17 01/27/17 15:00 23:00 07:00 Intake Total 300 ml 850 ml 800 ml Output Total 880 ml 700 ml Balance 300 ml -30 ml 100 ml Exam Head: atraumatic, normocephalic Neck: supple Respiratory: clear to auscultation Cardiovascular: irregular rhythm Gastrointestinal: non-tender, soft Extremities: edema Neurological: Obtunded Skin: nl turgor Results Result Diagram: 01/27/17 0702 01/27/17 0700 Results 24 hrs Laboratory Tests Test 01/26/17 17:48 01/27/17 00:21 01/27/17 05:04 01/27/17 07:00 Bedside Glucose 145 108 138 Sodium Level 143 Potassium Level 4.4 Chloride Level 103 Carbon Dioxide Level 26 Anion Gap 18 H Blood Urea Nitrogen 33 H Creatinine 1.36 H Glucose Level 118 Calcium Level 9.5 Test 01/27/17 07:02 01/27/17 11:27 01/27/17 12:17 White Blood Count 13.1 H Red Blood Count 4.34 Hemoglobin 11.2 L Hematocrit 35.3 L Mean Corpuscular Volume 81.3 L Mean Corpuscular Hemoglobin 25.8 L Mean Corpuscular Hemoglobin Concent 31.7 L Red Cell Distribution Width 16.5 H Platelet Count 427 H Mean Platelet Volume 11.7 H Neutrophils % 80.2 H Lymphocytes % 11.3 L Monocytes % 5.0 Eosinophils % 2.1 Basophils % 0.9 Nucleated Red Blood Cells % 0.0 Neutrophils # 10.5 H Lymphocytes # 1.5 Monocytes # 0.7 Eosinophils # 0.3 Basophils # 0.1 Nucleated Red Blood Cells # 0.0 Lab Scanned Report REFERENCE LAB Bedside Glucose 122 Medications Medications Current Medications Miscellaneous Information 1 ea NOTE XX ; Start 01/17/17 at 10:00 Glucose (Glutose) 15 gm Q15M PRN PO DECREASED GLUCOSE; Start 01/17/17 at 10:00 Glucose (Glutose) 22.5 gm Q15M PRN PO DECREASED GLUCOSE; Start 01/17/17 at 10: 00 Dextrose (D50w Syringe) 25 ml Q15M PRN IV DECREASED GLUCOSE; Start 01/17/17 at 10:00 Dextrose (D50w Syringe) 50 ml Q15M PRN IV DECREASED GLUCOSE; Start 01/17/17 at 10:00 Glucagon (Glucagen) 1 mg Q15M PRN IM DECREASED GLUCOSE; Start 01/17/17 at 10:00 Glucose (Glutose) 15 gm Q15M PRN BUCCAL DECREASED GLUCOSE; Start 01/17/17 at 10 :00 Collagenase (Santyl) 1 applic DAILY TOP Last administered on 01/27/17t 08:48; Admin Dose 1 APPLIC; Start 01/17/17 at 21:00 IV Flush (NS 10 ml) 10 ml PRN PRN IV IV PROTOCOL; Start 01/22/17 at 12:00 Insulin Aspart (Novolog Insulin Pen) NOVOLOG *MILD* ALGORI... Q6 SC Last administered on 01/26/17 18:02; Admin Dose 1 UNIT; Start 01/23/17 at 18:00 [facility]isc[facility] This patient dunaway... PRN PRN XX WOUND CARE; Start 01/24/17 at 07:30 Bisacodyl 10 mg 10 mg DAILY PRN [place] CONSTIPATION Last administered on 01/25/17 17:37; Admin Dose 10 MG; Start 01/25/17 at 16:30 Piperacillin Sod/ Tazobactam Sod (Zosyn 3.375gm/ 100 ml (Pmx)) 100 ml @ 200 mls /hr Q6 IVPB Last administered on 01/27/17 12:14; Admin Dose 200 MLS/HR; Start 01/26/17 at 10:00 Acetaminophen (Tylenol Liquid) 650 mg Q4H PRN NGT PAIN AND OR ELEVATED TEMP Last administered on 01/26/17 09:31; Admin Dose 650 MG; Start 01/26/17 at 09:00 Metoprolol Tartrate (Lopressor) 2.5 mg Q4H PRN IV NOTE; Start 01/26/17 at 15:00 Metoprolol Tartrate (Lopressor) 5 mg Q4 IV Last administered on 01/27/17 08:48 ; Admin Dose 5 MG; Start 01/26/17 at 17:00 Enoxaparin Sodium (Lovenox) 60 mg Q24H SC Last administered on 01/26/17 20:41 ; Admin Dose 60 MG; Start 01/26/17 at 19:30 LAWRENCE PICKERING Jan 27, 2017 14:24
[2017-01-27] MEDS: LEVALBUTEROL (NEB) 0.63 MG/3 ML AMP HHN SCH ×2 (16:00→19:56)
[2017-01-27 19:38] LABS: INR 1.01; PROTIME 13.3 Sec (12.2-14.2)
[2017-01-27] MEDS: ENOXAPARIN 60 MG/0.6 ML SYG SC SCH (21:30)
--- NOTE | 2017-01-27 23:22 | CONS ---
Date/Time of Note Date/Time of Note DATE: 01/27/17 TIME: 23:21 Assessment/Plan Assessment/Plan Chief Complaint/Hosp Course Renal santizo stable Problems: Cont'd Hospitalization Reason: Renal functio continues to improve Consultation Date/Type/Reason Admit Date/Time Jan 16, 2017 at 15:19 Initial Consult Date 01/17/17 Type of Consultation: renal Referring Provider: LAWRENCE PICKERING 24 HR Interval Summary Free Text/Dictation No change in clinical condition Subjective hx not possible: pt non-verbal Exam/Review of Systems Vital Signs Vitals Vital Signs Date Time Temp Pulse Resp B/P Pulse Ox O2 Delivery O2 Flow Rate FiO2 01/27/17 20:38 86 01/27/17 20:00 98.2 20 105/58 100 01/27/17 19:56 21 01/26/17 12:39 Room Air Intake and Output 01/26/17 01/26/17 01/27/17 15:00 23:00 07:00 Intake Total 300 ml 850 ml 800 ml Output Total 880 ml 700 ml Balance 300 ml -30 ml 100 ml Exam Constitutional: alert, oriented, well developed Psych: nl mood/affect, no complaints Head: atraumatic, normocephalic Eyes: EOMI, PERRL, nl conjunctiva, nl lids, nl sclera ENMT: nl external ears & nose, nl lips & teeth, nl nasal mucosa & septum Neck: non-tender, supple Respiratory: clear to auscultation, normal air movement Cardiovascular: nl pulses, regular rate and rhythm Gastrointestinal: nl liver, spleen, non-tender, soft Musculoskeletal: nl extremities to inspection, nl gait and stance Extremities: normal pulses, other (muscle wasting) Neurological: [employer] II-XII intact, nl strength, other (pt remains cpmatosed) Skin: nl turgor, No rash or lesions Lymph: nl lymph nodes Results Result Diagram: 01/27/17 0702 01/27/17 0700 Results 24 hrs Laboratory Tests Test 01/27/17 00:21 01/27/17 05:04 01/27/17 07:00 01/27/17 07:02 Bedside Glucose 108 138 Sodium Level 143 Potassium Level 4.4 Chloride Level 103 Carbon Dioxide Level 26 Anion Gap 18 H Blood Urea Nitrogen 33 H Creatinine 1.36 H Glucose Level 118 Calcium Level 9.5 White Blood Count 13.1 H Red Blood Count 4.34 Hemoglobin 11.2 L Hematocrit 35.3 L Mean Corpuscular Volume 81.3 L Mean Corpuscular Hemoglobin 25.8 L Mean Corpuscular Hemoglobin Concent 31.7 L Red Cell Distribution Width 16.5 H Platelet Count 427 H Mean Platelet Volume 11.7 H Neutrophils % 80.2 H Lymphocytes % 11.3 L Monocytes % 5.0 Eosinophils % 2.1 Basophils % 0.9 Nucleated Red Blood Cells % 0.0 Neutrophils # 10.5 H Lymphocytes # 1.5 Monocytes # 0.7 Eosinophils # 0.3 Basophils # 0.1 Nucleated Red Blood Cells # 0.0 Test 01/27/17 11:27 01/27/17 12:17 01/27/17 18:30 01/27/17 19:00 Lab Scanned Report REFERENCE LAB Bedside Glucose 122 118 Prothrombin Time 13.3 # Prothrombin Time Ratio 1.0 INR International Normalized Ratio 1.01 Medications Medications Current Medications Miscellaneous Information 1 ea NOTE XX ; Start 01/17/17 at 10:00 Glucose (Glutose) 15 gm Q15M PRN PO DECREASED GLUCOSE; Start 01/17/17 at 10:00 Glucose (Glutose) 22.5 gm Q15M PRN PO DECREASED GLUCOSE; Start 01/17/17 at 10: 00 Dextrose (D50w Syringe) 25 ml Q15M PRN IV DECREASED GLUCOSE; Start 01/17/17 at 10:00 Dextrose (D50w Syringe) 50 ml Q15M PRN IV DECREASED GLUCOSE; Start 01/17/17 at 10:00 Glucagon (Glucagen) 1 mg Q15M PRN IM DECREASED GLUCOSE; Start 01/17/17 at 10:00 Glucose (Glutose) 15 gm Q15M PRN BUCCAL DECREASED GLUCOSE; Start 01/17/17 at 10 :00 Collagenase (Santyl) 1 applic DAILY TOP Last administered on 01/27/17 08:48; Admin Dose 1 APPLIC; Start 01/17/17 at 21:00 IV Flush (NS 10 ml) 10 ml PRN PRN IV IV PROTOCOL; Start 01/22/17 at 12:00 Insulin Aspart (Novolog Insulin Pen) NOVOLOG *MILD* ALGORI... Q6 SC Last administered on 01/26/17 18:02; Admin Dose 1 UNIT; Start 01/23/17 at 18:00 Miscellaneous Information (Pending Santyl Order For Wound Care) This patient dunaway... PRN PRN XX WOUND CARE; Start 01/24/17 at 07:30 Bisacodyl 10 mg 10 mg DAILY PRN [place] CONSTIPATION Last administered on 01/25/17 17:37; Admin Dose 10 MG; Start 01/25/17 at 16:30 Piperacillin Sod/ Tazobactam Sod (Zosyn 3.375gm/ 100 ml (Pmx)) 100 ml @ 200 mls /hr Q6 IVPB Last administered on 01/27/17 18:28; Admin Dose 200 MLS/HR; Start 01/26/17 at 10:00 Acetaminophen (Tylenol Liquid) 650 mg Q4H PRN NGT PAIN AND OR ELEVATED TEMP Last administered on 01/26/17 09:31; Admin Dose 650 MG; Start 01/26/17 at 09:00 Metoprolol Tartrate (Lopressor) 2.5 mg Q4H PRN IV NOTE; Start 01/26/17 at 15:00 Metoprolol Tartrate (Lopressor) 5 mg Q4 IV Last administered on 01/27/17 21:26 ; Admin Dose 5 MG; Start 01/26/17 at 17:00 Enoxaparin Sodium (Lovenox) 60 mg Q24H SC Last administered on 01/27/17 21:30 ; Admin Dose 60 MG; Start 01/26/17 at 19:30 TALI CHIN MD Jan 27, 2017 23:22
[2017-01-28] VITALS (22 sets, daily range): BP systolic 80–139; BP diastolic 42–88; PULSE 59–96; RESP 17–20
[2017-01-28] MEDS: PIPER-TAZO 3.375 GM IV (PMX) 100 ML IVPB SCH ×4 (00:24→18:00)
[2017-01-28] MEDS: METOPROLOL 5 MG INJ IV SCH ×6 (01:00→21:00)
[2017-01-28] MEDS: LEVALBUTEROL (NEB) 0.63 MG/3 ML AMP HHN SCH ×4 (01:34→20:08)
[2017-01-28] MEDS: INSULIN ASPART [NOVOLOG] 3 ML PEN SC SCH ×4 (05:34→18:00)
[2017-01-28 07:56] LABS: BASOPHIL # 0.1 10^3/ul (0.0-0.1); BASOPHILS % 0.9 % (0.0-2.0); EOSINOPHILS # 0.3 10^3/ul (0.0-0.5); EOSINOPHILS % 2.7 % (0.0-7.0); HEMOGLOBIN 10.6 g/dl (12.0-16.0); LYMPHOCYTES # 1.8 10^3/ul (0.8-2.9); MEAN CORPUSCULAR HEMOGLOBIN 26.4 pg (29.0-33.0); MEAN CORPUSCULAR HGB CONC 32.1 g/dl (32.0-37.0); MEAN CORPUSCULAR VOLUME 82.3 fl (82.0-101.0); MEAN PLATELET VOLUME 11.9 fl (7.4-10.4); MONOCYTE # 0.7 10^3/ul (0.3-0.9); MONOCYTES % 6.3 % (0.0-11.0); NEUTROPHIL # 8.3 10^3/ul (1.6-7.5); NEUTROPHILS % 73.6 % (39.0-77.0); PLATELET COUNT 433 10^3/UL (140-415); RED BLOOD COUNT 4.01 10^6/ul (4.20-5.40); RED CELL DISTRIBUTION WIDTH 16.4 % (11.5-14.5); WHITE BLOOD COUNT 11.3 10^3/ul (4.8-10.8)
[2017-01-28 08:20] LABS: CALCIUM 9.7 mg/dl (8.4-10.2); CREATININE 1.41 mg/dl (0.44-1.00); POTASSIUM 4.7 mmol/L (3.5-5.1)
--- NOTE | 2017-01-28 09:39 | HKNOTE ---
DATE OF SERVICE: 01/19/2017 HISTORY OF PRESENT ILLNESS: The patient is a 61-year-old lady with decreased mini mental status. PHYSICAL EXAMINATION: On examination today the patient is moving both upper extremities with localization. [____] bilateral, visual deficits and [____], medium sized [____] bilateral. No epileptiform discharge or seizure activity reported. Followup EEG may be needed if clinically indicated again. ASSESSMENT: This is an abnormal electroencephalogram, showed generalized slowing consistent with a history of underlying encephalopathy. No epileptiform discharge or seizure activity is reported. Followup EEG may be needed if clinically indicated. Dictated By: Connor Lozano MD /ange/ /Document#: [id number]
[2017-01-28] MEDS: COLLAGENASE 30 GM TUBE TOP SCH (09:43)
--- NOTE | 2017-01-28 12:13 | PN ---
Date/Time of Note Date/Time of Note DATE: 01/28/17 TIME: 12:13 Assessment/Plan VTE Prophylaxis VTE Prophylaxis Intervention: other Lines/Catheters IV [facility] Type (from [facility]): PICC Line Central line still needed: Yes Urinary Cath still in place: Yes Reason Cath still needed: skin wounds contaminated by urine Assessment/Plan Chief Complaint/Hosp Course -Mild leukocytosis with low-grade fevers secondary to possible pneumonia, continue Zosyn, follow up on final cultures monitor chest x-ray. - Bilateral thalamic infarctions, Dr. Payne, neurology consult is appreciated. Continue aspirin - Dysphagia, Dr. Garcia is is following in gastroenterology consultation. Plan for G-tube placement tomorrow. - Staph aureus bacteremia vs contamination, status post antibiotics, 2D echo is negative for vegetation. CSF is unremarkable. Dr. Abarca is following infection disease consultation. - Atrial fibrillation with rapid ventricular response, currently rate is controlled. Dr. Armenta is following and cardiology consultation. - Thrombosis of the bilateral cephalic veins. Continue Lovenox. - Acute kidney injury, Dr. Poole is following in nephrology consultation. - History of CVA - History of hyperlipidemia - Left lower extremity, status post vascular surgery. Problems: Subjective 24 Hr Interval Summary Free Text/Dictation Patient is nonverbal Exam/Review of Systems Vital Signs Vitals Vital Signs Date Time Temp Pulse Resp B/P Pulse Ox O2 Delivery O2 Flow Rate FiO2 01/28/17 11:15 97.8 59 18 94/55 98 01/28/17 08:32 21 01/28/17 00:32 Room Air Intake and Output 01/27/17 01/27/17 01/28/17 15:00 23:00 07:00 Intake Total 800 ml 700 ml Output Total 450 ml 800 ml Balance 350 ml -100 ml Exam Constitutional: well developed Head: atraumatic, normocephalic Neck: supple Respiratory: diminished breath sounds Cardiovascular: regular rate and rhythm Gastrointestinal: non-tender, soft Extremities: normal pulses Results Result Diagram: 01/28/17 0726 01/28/17 0726 Results 24 hrs Laboratory Tests Test 01/27/17 12:17 01/27/17 18:30 01/27/17 19:00 01/28/17 00:22 Bedside Glucose 122 118 105 Prothrombin Time 13.3 # Prothrombin Time Ratio 1.0 INR International Normalized Ratio 1.01 Test 01/28/17 05:04 01/28/17 07:26 Bedside Glucose 101 White Blood Count 11.3 H Red Blood Count 4.01 L Hemoglobin 10.6 L Hematocrit 33.0 L Mean Corpuscular Volume 82.3 Mean Corpuscular Hemoglobin 26.4 L Mean Corpuscular Hemoglobin Concent 32.1 Red Cell Distribution Width 16.4 H Platelet Count 433 H Mean Platelet Volume 11.9 H Neutrophils % 73.6 Lymphocytes % 16.0 Monocytes % 6.3 Eosinophils % 2.7 Basophils % 0.9 Nucleated Red Blood Cells % 0.0 Neutrophils # 8.3 H Lymphocytes # 1.8 Monocytes # 0.7 Eosinophils # 0.3 Basophils # 0.1 Nucleated Red Blood Cells # 0.0 Sodium Level 143 Potassium Level 4.7 Chloride Level 101 Carbon Dioxide Level 28 Anion Gap 19 H Blood Urea Nitrogen 31 H Creatinine 1.41 H Glucose Level 104 Calcium Level 9.7 Medications Medications Current Medications Miscellaneous Information 1 ea NOTE XX ; Start 01/17/17 at 10:00 Glucose (Glutose) 15 gm Q15M PRN PO DECREASED GLUCOSE; Start 01/17/17 at 10:00 Glucose (Glutose) 22.5 gm Q15M PRN PO DECREASED GLUCOSE; Start 01/17/17 at 10: 00 Dextrose (D50w Syringe) 25 ml Q15M PRN IV DECREASED GLUCOSE; Start 01/17/17 at 10:00 Dextrose (D50w Syringe) 50 ml Q15M PRN IV DECREASED GLUCOSE; Start 01/17/17 at 10:00 Glucagon (Glucagen) 1 mg Q15M PRN IM DECREASED GLUCOSE; Start 01/17/17 at 10:00 Glucose (Glutose) 15 gm Q15M PRN BUCCAL DECREASED GLUCOSE; Start 01/17/17 at 10 :00 Collagenase (Santyl) 1 applic DAILY TOP Last administered on 01/28/17 09:43; Admin Dose 1 APPLIC; Start 01/17/17 at 21:00 IV Flush (NS 10 ml) 10 ml PRN PRN IV IV PROTOCOL; Start 01/22/17 at 12:00 Insulin Aspart (Novolog Insulin Pen) NOVOLOG *MILD* ALGORI... Q6 SC Last administered on 01/26/17 18:02; Admin Dose 1 UNIT; Start 01/23/17 at 18:00 Miscellaneous Information ([facility]) This patient dunaway... PRN PRN XX WOUND CARE; Start 01/24/17 at 07:30 Bisacodyl 10 mg 10 mg DAILY PRN [place] CONSTIPATION Last administered on 01/25/17 17:37; Admin Dose 10 MG; Start 01/25/17 at 16:30 Piperacillin Sod/ Tazobactam Sod (Zosyn 3.375gm/ 100 ml (Pmx)) 100 ml @ 200 mls /hr Q6 IVPB Last administered on 01/28/17 05:06; Admin Dose 200 MLS/HR; Start 01/26/17 at 10:00 Acetaminophen (Tylenol Liquid) 650 mg Q4H PRN NGT PAIN AND OR ELEVATED TEMP Last administered on 01/26/17 09:31; Admin Dose 650 MG; Start 01/26/17 at 09:00 Metoprolol Tartrate (Lopressor) 2.5 mg Q4H PRN IV NOTE; Start 01/26/17 at 15:00 Metoprolol Tartrate (Lopressor) 5 mg Q4 IV Last administered on 01/27/17 21:26 ; Admin Dose 5 MG; Start 01/26/17 at 17:00 Enoxaparin Sodium (Lovenox) 60 mg Q24H SC Last administered on 01/27/17 21:30 ; Admin Dose 60 MG; Start 01/26/17 at 19:30 JOSE LOMAS Jan 28, 2017 12:13
--- NOTE | 2017-01-28 12:21 | CONS ---
Date/Time of Note Date/Time of Note DATE: 01/28/17 TIME: 12:18 Consult Date/Type/Reason Admit Date/Time Jan 16, 2017 at 15:19 Initial Consult Date 01/26/17 Type of Consultation: Neurology Reason for Consultation encephalopathy Ordering Provider: LAWRENCE PICKERING planned for PEG and further imaging today to reevaluate no seizures, EEG done to be reviewed by Dr. Kerr today Objective Vital Signs Date Time Temp Pulse Resp B/P Pulse Ox O2 Delivery O2 Flow Rate FiO2 01/28/17 11:15 97.8 59 18 94/55 98 01/28/17 08:32 21 01/28/17 00:32 Room Air Intake and Output 01/27/17 01/27/17 01/28/17 15:00 23:00 07:00 Intake Total 800 ml 700 ml Output Total 450 ml 800 ml Balance 350 ml -100 ml Exam unresponsive no response to sternal rub CN: pupils 2 mm sluggish, corneals intact, right facial asymmetry NGT feedings Motor: no withdrawal to noxious in any extremities flaccid throughout no withdrawal to noxious reflexes 1+ throughout toes are mute Results/Medications Result Diagram: 01/28/17 0726 01/28/17 0726 Results 24 hrs Laboratory Tests Test 01/27/17 18:30 01/27/17 19:00 01/28/17 00:22 01/28/17 05:04 Bedside Glucose 118 105 101 Prothrombin Time 13.3 # Prothrombin Time Ratio 1.0 INR International Normalized Ratio 1.01 Test 01/28/17 07:26 White Blood Count 11.3 H Red Blood Count 4.01 L Hemoglobin 10.6 L Hematocrit 33.0 L Mean Corpuscular Volume 82.3 Mean Corpuscular Hemoglobin 26.4 L Mean Corpuscular Hemoglobin Concent 32.1 Red Cell Distribution Width 16.4 H Platelet Count 433 H Mean Platelet Volume 11.9 H Neutrophils % 73.6 Lymphocytes % 16.0 Monocytes % 6.3 Eosinophils % 2.7 Basophils % 0.9 Nucleated Red Blood Cells % 0.0 Neutrophils # 8.3 H Lymphocytes # 1.8 Monocytes # 0.7 Eosinophils # 0.3 Basophils # 0.1 Nucleated Red Blood Cells # 0.0 Sodium Level 143 Potassium Level 4.7 Chloride Level 101 Carbon Dioxide Level 28 Anion Gap 19 H Blood Urea Nitrogen 31 H Creatinine 1.41 H Glucose Level 104 Calcium Level 9.7 Medications Current Medications Miscellaneous Information 1 ea NOTE XX ; Start 01/17/17 at 10:00 Glucose (Glutose) 15 gm Q15M PRN PO DECREASED GLUCOSE; Start 01/17/17 at 10:00 Glucose (Glutose) 22.5 gm Q15M PRN PO DECREASED GLUCOSE; Start 01/17/17 at 10: 00 Dextrose (D50w Syringe) 25 ml Q15M PRN IV DECREASED GLUCOSE; Start 01/17/17 at 10:00 Dextrose (D50w Syringe) 50 ml Q15M PRN IV DECREASED GLUCOSE; Start 01/17/17 at 10:00 Glucagon (Glucagen) 1 mg Q15M PRN IM DECREASED GLUCOSE; Start 01/17/17 at 10:00 Glucose (Glutose) 15 gm Q15M PRN BUCCAL DECREASED GLUCOSE; Start 01/17/17 at 10 :00 Collagenase (Santyl) 1 applic DAILY TOP Last administered on 01/28/17 09:43; Admin Dose 1 APPLIC; Start 01/17/17 at 21:00 IV Flush (NS 10 ml) 10 ml PRN PRN IV IV PROTOCOL; Start 01/22/17 at 12:00 Insulin Aspart (Novolog Insulin Pen) NOVOLOG *MILD* ALGORI... Q6 SC Last administered on 01/26/17 18:02; Admin Dose 1 UNIT; Start 01/23/17 at 18:00 Miscellaneous Information (Pending Santyl Order For Wound Care) This patient dunaway... PRN PRN XX WOUND CARE; Start 01/24/17 at 07:30 Bisacodyl 10 mg 10 mg DAILY PRN [place] CONSTIPATION Last administered on 01/25/17 17:37; Admin Dose 10 MG; Start 01/25/17 at 16:30 Piperacillin Sod/ Tazobactam Sod (Zosyn 3.375gm/ 100 ml (Pmx)) 100 ml @ 200 mls /hr Q6 IVPB Last administered on 01/28/17 05:06; Admin Dose 200 MLS/HR; Start 01/26/17 at 10:00 Acetaminophen (Tylenol Liquid) 650 mg Q4H PRN NGT PAIN AND OR ELEVATED TEMP Last administered on 01/26/17 09:31; Admin Dose 650 MG; Start 01/26/17 at 09:00 Metoprolol Tartrate (Lopressor) 2.5 mg Q4H PRN IV NOTE; Start 01/26/17 at 15:00 Metoprolol Tartrate (Lopressor) 5 mg Q4 IV Last administered on 01/27/17 21:26 ; Admin Dose 5 MG; Start 01/26/17 at 17:00 Enoxaparin Sodium (Lovenox) 60 mg Q24H SC Last administered on 01/27/17 21:30 ; Admin Dose 60 MG; Start 01/26/17 at 19:30 Assessment/Plan Chief Complaint/Hosp Course 61 year old female with hx of afib, MARIELA, HTN, CVA x2, LE DVT s/p fasciotomy and IVC filter recent cardiac cath was off coumadin on admission 01/16 admitted with AMS and lactic acidosis found unresponsive by family underwent CPR, ischemic cardiomyopathy EF: 45%. MRI Brain showed medial thalamic restricted diffusion, small vessel disease. Infectious work up including LP done: unrevealing. She is currently on Keppra prophylaxis. Unclear if she has ever had documented seizures. Recommendations: bilateral thalamic infarctions can often produce a state of persistent unresponsiveness, discussed with family son at bedside today advised him i requested repeat imaging MRI Brain and MRA Head w/o contrast unclear if this patient has ever had seizures, i will discontinue the Keppra as thalamic seizures are rare, usually seizures arise from ischemic injury in cortical regions EEG done pending review i do not believe a brain biopsy would not be helpful in this case as i do not suspect an underlying neuro-infectious process or a vasculitis PEG planned today will request Dr. Ramirez to follow up over the weekend Problems: RAFA TANG MD Jan 28, 2017 12:21
--- NOTE | 2017-01-28 13:28 | CONS ---
Date/Time of Note Date/Time of Note DATE: 01/28/17 TIME: 13:26 Assessment/Plan Assessment/Plan Chief Complaint/Hosp Course IMP: 1. AF-rate controlled/Trop negative x 3 2.Hypotension-borderline worsening today 3.encephalopathy/ams 4.coagulopathy-now decreased with coumadin held 5. Acute Renal failure-? secondary to vanc 6.Leukocytosis 7. Cardiomyopathy-EF 45% 8. Cephalic vein thrombosis Recc: -Tele -serial ecg's -Lovenox -Continue keppra/abx's/acyclovir -Follow MS closely with ongoing neuro eval -IVP BB for rate control and will decrease dose to assure tolerates -s/p dose IVP digoxin -for PEG Problems: Consultation Date/Type/Reason Admit Date/Time Jan 16, 2017 at 15:19 Initial Consult Date 01/17/17 Type of Consultation: cardiology Reason for Consultation AF Referring Provider: LAWRENCE PICKERING Exam/Review of Systems Vital Signs Vitals Vital Signs Date Time Temp Pulse Resp B/P Pulse Ox O2 Delivery O2 Flow Rate FiO2 01/28/17 12:19 73 01/28/17 11:15 97.8 18 94/55 98 01/28/17 08:32 21 01/28/17 00:32 Room Air Intake and Output 01/27/17 01/27/17 01/28/17 15:00 23:00 07:00 Intake Total 800 ml 700 ml Output Total 450 ml 800 ml Balance 350 ml -100 ml Exam Review of Systems: CONSTITUTIONAL: No fevers, chills. PULMONARY: No sob CARDIOVASCULAR: No chest pain/palpitations GASTROINTESTINAL: No nausea/vomiting. GENITOURINARY: No hematuria/dysuria. MUSCULOSKELETAL: No myagias/arthalgias. PSYCHIATRIC: The patient denies depression. NEUROLOGIC: NOn-responsive Constitutional: alert Psych: no complaints Head: normocephalic ENMT: mucosa pink and moist Neck: jvd (8 cm water), supple Respiratory: diminished breath sounds (at bases/B) Cardiovascular: regular rate and rhythm Gastrointestinal: non-tender, soft Musculoskeletal: muscle weakness (generalized) Extremities: edema (none) Neurological: other (No focal deficits) Results Result Diagram: 01/28/17 0726 01/28/17 0726 Results 24 hrs Laboratory Tests Test 01/27/17 18:30 01/27/17 19:00 01/28/17 00:22 01/28/17 05:04 Bedside Glucose 118 105 101 Prothrombin Time 13.3 # Prothrombin Time Ratio 1.0 INR International Normalized Ratio 1.01 Test 01/28/17 07:26 01/28/17 12:24 White Blood Count 11.3 H Red Blood Count 4.01 L Hemoglobin 10.6 L Hematocrit 33.0 L Mean Corpuscular Volume 82.3 Mean Corpuscular Hemoglobin 26.4 L Mean Corpuscular Hemoglobin Concent 32.1 Red Cell Distribution Width 16.4 H Platelet Count 433 H Mean Platelet Volume 11.9 H Neutrophils % 73.6 Lymphocytes % 16.0 Monocytes % 6.3 Eosinophils % 2.7 Basophils % 0.9 Nucleated Red Blood Cells % 0.0 Neutrophils # 8.3 H Lymphocytes # 1.8 Monocytes # 0.7 Eosinophils # 0.3 Basophils # 0.1 Nucleated Red Blood Cells # 0.0 Sodium Level 143 Potassium Level 4.7 Chloride Level 101 Carbon Dioxide Level 28 Anion Gap 19 H Blood Urea Nitrogen 31 H Creatinine 1.41 H Glucose Level 104 Calcium Level 9.7 Bedside Glucose 104 Medications Medications Current Medications Miscellaneous Information 1 ea NOTE XX ; Start 01/17/17 at 10:00 Glucose (Glutose) 15 gm Q15M PRN PO DECREASED GLUCOSE; Start 01/17/17 at 10:00 Glucose (Glutose) 22.5 gm Q15M PRN PO DECREASED GLUCOSE; Start 01/17/17 at 10: 00 Dextrose (D50w Syringe) 25 ml Q15M PRN IV DECREASED GLUCOSE; Start 01/17/17 at 10:00 Dextrose (D50w Syringe) 50 ml Q15M PRN IV DECREASED GLUCOSE; Start 01/17/17 at 10:00 Glucagon (Glucagen) 1 mg Q15M PRN IM DECREASED GLUCOSE; Start 01/17/17 at 10:00 Glucose (Glutose) 15 gm Q15M PRN BUCCAL DECREASED GLUCOSE; Start 01/17/17 at 10 :00 Collagenase (Santyl) 1 applic DAILY TOP Last administered on 01/28/17t 09:43; Admin Dose 1 APPLIC; Start 01/17/17 at 21:00 IV Flush (NS 10 ml) 10 ml PRN PRN IV IV PROTOCOL; Start 01/22/17 at 12:00 Insulin Aspart (Novolog Insulin Pen) NOVOLOG *MILD* ALGORI... Q6 SC Last administered on 01/26/17 18:02; Admin Dose 1 UNIT; Start 01/23/17 at 18:00 Miscellaneous Information (Pending Santyl Order For Wound Care) This patient dunaway... PRN PRN XX WOUND CARE; Start 01/24/17 at 07:30 Bisacodyl 10 mg 10 mg DAILY PRN [place] CONSTIPATION Last administered on 01/25/17 17:37; Admin Dose 10 MG; Start 01/25/17 at 16:30 Piperacillin Sod/ Tazobactam Sod (Zosyn 3.375gm/ 100 ml (Pmx)) 100 ml @ 200 mls /hr Q6 IVPB Last administered on 01/28/17 12:51; Admin Dose 200 MLS/HR; Start 01/26/17 at 10:00 Acetaminophen (Tylenol Liquid) 650 mg Q4H PRN NGT PAIN AND OR ELEVATED TEMP Last administered on 01/26/17 09:31; Admin Dose 650 MG; Start 01/26/17 at 09:00 Metoprolol Tartrate (Lopressor) 2.5 mg Q4H PRN IV NOTE; Start 01/26/17 at 15:00 Metoprolol Tartrate (Lopressor) 5 mg Q4 IV Last administered on 01/27/17 21:26 ; Admin Dose 5 MG; Start 01/26/17 at 17:00 Enoxaparin Sodium (Lovenox) 60 mg Q24H SC Last administered on 01/27/17 21:30 ; Admin Dose 60 MG; Start 01/26/17 at 19:30 MINOO REY Jan 28, 2017 13:28
[2017-01-28] MEDS ORDERED: SOD CHLORIDE 0.9% 500 ML IV ONE ×2 (13:30→16:30)
--- NOTE | 2017-01-28 13:48 | CONS ---
Date/Time of Note Date/Time of Note DATE: 01/28/17 TIME: 13:48 Assessment/Plan Assessment/Plan Additional Assessment/Plan (1) Anemia Comment: Hct stable at 39% (2) MARIELA (acute kidney injury) Status: Acute Comment: Ac renal failure improved though pt has CKD3 No further need for IV fluids (3) Altered level of consciousness Status: Acute further plans per Neuro Jeevanpp Renal Function stable Cont current Rx and plan Consultation Date/Type/Reason Admit Date/Time Jan 16, 2017 at 15:19 Initial Consult Date 01/17/17 Type of Consultation: REnal Referring Provider: LAWRENCE PICKERING 24 HR Interval Summary Constitutional: No requiring O2 Exam/Review of Systems Vital Signs Vitals Vital Signs Date Time Temp Pulse Resp B/P Pulse Ox O2 Delivery O2 Flow Rate FiO2 01/28/17 12:19 73 01/28/17 11:15 97.8 18 94/55 98 01/28/17 08:32 21 01/28/17 00:32 Room Air Intake and Output 01/27/17 01/27/17 01/28/17 15:00 23:00 07:00 Intake Total 800 ml 700 ml Output Total 450 ml 800 ml Balance 350 ml -100 ml Exam Constitutional: No distress ENMT: mucosa pink and moist Neck: No jvd Respiratory: clear to auscultation Cardiovascular: No edema Gastrointestinal: non-tender, soft Neurological: No lethargic Results Result Diagram: 01/28/17 0726 01/28/17 0726 Results 24 hrs Laboratory Tests Test 01/27/17 18:30 01/27/17 19:00 01/28/17 00:22 01/28/17 05:04 Bedside Glucose 118 105 101 Prothrombin Time 13.3 # Prothrombin Time Ratio 1.0 INR International Normalized Ratio 1.01 Test 01/28/17 07:26 01/28/17 12:24 White Blood Count 11.3 H Red Blood Count 4.01 L Hemoglobin 10.6 L Hematocrit 33.0 L Mean Corpuscular Volume 82.3 Mean Corpuscular Hemoglobin 26.4 L Mean Corpuscular Hemoglobin Concent 32.1 Red Cell Distribution Width 16.4 H Platelet Count 433 H Mean Platelet Volume 11.9 H Neutrophils % 73.6 Lymphocytes % 16.0 Monocytes % 6.3 Eosinophils % 2.7 Basophils % 0.9 Nucleated Red Blood Cells % 0.0 Neutrophils # 8.3 H Lymphocytes # 1.8 Monocytes # 0.7 Eosinophils # 0.3 Basophils # 0.1 Nucleated Red Blood Cells # 0.0 Sodium Level 143 Potassium Level 4.7 Chloride Level 101 Carbon Dioxide Level 28 Anion Gap 19 H Blood Urea Nitrogen 31 H Creatinine 1.41 H Glucose Level 104 Calcium Level 9.7 Bedside Glucose 104 Medications Medications Current Medications Miscellaneous Information 1 ea NOTE XX ; Start 01/17/17 at 10:00 Glucose (Glutose) 15 gm Q15M PRN PO DECREASED GLUCOSE; Start 01/17/17 at 10:00 Glucose (Glutose) 22.5 gm Q15M PRN PO DECREASED GLUCOSE; Start 01/17/17 at 10: 00 Dextrose (D50w Syringe) 25 ml Q15M PRN IV DECREASED GLUCOSE; Start 01/17/17 at 10:00 Dextrose (D50w Syringe) 50 ml Q15M PRN IV DECREASED GLUCOSE; Start 01/17/17 at 10:00 Glucagon (Glucagen) 1 mg Q15M PRN IM DECREASED GLUCOSE; Start 01/17/17 at 10:00 Glucose (Glutose) 15 gm Q15M PRN BUCCAL DECREASED GLUCOSE; Start 01/17/17 at 10 :00 Collagenase (Santyl) 1 applic DAILY TOP Last administered on 01/28/17 09:43; Admin Dose 1 APPLIC; Start 01/17/17 at 21:00 IV Flush (NS 10 ml) 10 ml PRN PRN IV IV PROTOCOL; Start 01/22/17 at 12:00 Insulin Aspart (Novolog Insulin Pen) NOVOLOG *MILD* ALGORI... Q6 SC Last administered on 01/26/17 18:02; Admin Dose 1 UNIT; Start 01/23/17 at 18:00 Miscellaneous Information (Pending Santyl Order For Wound Care) This patient dunaway... PRN PRN XX WOUND CARE; Start 01/24/17 at 07:30 Bisacodyl 10 mg 10 mg DAILY PRN [place] CONSTIPATION Last administered on 01/25/17 17:37; Admin Dose 10 MG; Start 01/25/17 at 16:30 Piperacillin Sod/ Tazobactam Sod (Zosyn 3.375gm/ 100 ml (Pmx)) 100 ml @ 200 mls /hr Q6 IVPB Last administered on 01/28/17 12:51; Admin Dose 200 MLS/HR; Start 01/26/17 at 10:00 Acetaminophen (Tylenol Liquid) 650 mg Q4H PRN NGT PAIN AND OR ELEVATED TEMP Last administered on 01/26/17 09:31; Admin Dose 650 MG; Start 01/26/17 at 09:00 Metoprolol Tartrate (Lopressor) 2.5 mg Q4H PRN IV NOTE; Start 01/26/17 at 15:00 Enoxaparin Sodium (Lovenox) 60 mg Q24H SC Last administered on 01/27/17 21:30 ; Admin Dose 60 MG; Start 01/26/17 at 19:30 Metoprolol Tartrate 2.5 mg 2.5 mg Q4 IV ; Start 01/28/17 at 17:00 Sodium Chloride (NS) 500 ml @ 500 mls/hr Q1H ONCE IV ; Start 01/28/17 at 13:30 ; Stop 01/28/17 at 14:29 MC SHARPE MD Jan 28, 2017 13:48
[2017-01-28] MEDS ORDERED: CEFAZOLIN 1 GM/50 ML (PMX) 50 ML IVPB ONE (18:31)
[2017-01-28] MEDS ORDERED: ETOMIDATE 20 MG INJ ONE (18:32)
[2017-01-28] MEDS ORDERED: LIDOCAINE 2% (SDV) 5 ML INJ ONE (18:32)
[2017-01-28] MEDS ORDERED: EPHEDrine SULFATE 50 MG/5 ML SYG ONE (18:34)
[2017-01-28] MEDS ORDERED: PHENYLephrine (100 MCG/ML) 5ML SYG ONE (18:34)
--- NOTE | 2017-01-28 20:21 | CONS ---
Date/Time of Note Date/Time of Note DATE: 01/28/17 TIME: 20:18 Assessment/Plan Assessment/Plan Chief Complaint/Hosp Course assessment/impression: - low grade leukocytosis, ?infectious process vs. neurological process - acute encephalopathy. CSF from 01/19/2017: WBC=3, RBC=0, glu 53, pro=61, CSF ( [place] serology negative, HSV negative, cocci CF negative, encephalitis meningitis panel could not be done due to a lack of sample), serum ([place] PCR negative, crypto antigen negative, cocci CF negative, histo CF negative). my order of crypto in CSF was cancelled and no reason given - bacteremia due to CoNS, probable contaminant. 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) - A fib - h/o DVT - h/o LLE ischemia s/p thrombolysis and subsequent open thrombectomy and fasciotomy at [facility] 09/2015 - h/o thrombus on DEBBIE per records from [facility] recommendations: - will repeat CXR, CBC and BMP in AM - continue empiric pip/tazo (01/26/2017-); it may be discontinued soon if Pt's clinically stable and laboratory results are unremarkable Problems: Consultation Date/Type/Reason Admit Date/Time Jan 16, 2017 at 15:19 Initial Consult Date 01/17/17 Type of Consultation: ID Referring Provider: LAWRENCE PICKERING 24 HR Interval Summary Free Text/Dictation s/p G tube placement Subjective hx not possible: pt non-verbal Exam/Review of Systems Vital Signs Vitals Vital Signs Date Time Temp Pulse Resp B/P Pulse Ox O2 Delivery O2 Flow Rate FiO2 01/28/17 20:08 100 2.0 01/28/17 20:08 72 18 Nasal Cannula 01/28/17 19:17 115/62 01/28/17 19:07 98.0 01/28/17 13:43 21 Intake and Output 01/27/17 01/27/17 01/28/17 15:00 23:00 07:00 Intake Total 800 ml 700 ml Output Total 450 ml 800 ml Balance 350 ml -100 ml Exam Constitutional: frail, non-verbal Psych: confusion Head: normocephalic Eyes: nl conjunctiva, other (pupils are sluggish to light) ENMT: nl external ears & nose Neck: supple Respiratory: wheezing Cardiovascular: nl pulses, regular rate and rhythm Gastrointestinal: non-tender, other (G tube in place), soft Musculoskeletal: nl extremities to inspection Extremities: No edema Neurological: confused, lethargic Skin: nl turgor, No rash or lesions Results Result Diagram: 01/28/17 0726 01/28/17 0726 Results 24 hrs Laboratory Tests Test 01/28/17 00:22 01/28/17 05:04 01/28/17 07:26 01/28/17 12:24 Bedside Glucose 105 101 104 White Blood Count 11.3 H Red Blood Count 4.01 L Hemoglobin 10.6 L Hematocrit 33.0 L Mean Corpuscular Volume 82.3 Mean Corpuscular Hemoglobin 26.4 L Mean Corpuscular Hemoglobin Concent 32.1 Red Cell Distribution Width 16.4 H Platelet Count 433 H Mean Platelet Volume 11.9 H Neutrophils % 73.6 Lymphocytes % 16.0 Monocytes % 6.3 Eosinophils % 2.7 Basophils % 0.9 Nucleated Red Blood Cells % 0.0 Neutrophils # 8.3 H Lymphocytes # 1.8 Monocytes # 0.7 Eosinophils # 0.3 Basophils # 0.1 Nucleated Red Blood Cells # 0.0 Sodium Level 143 Potassium Level 4.7 Chloride Level 101 Carbon Dioxide Level 28 Anion Gap 19 H Blood Urea Nitrogen 31 H Creatinine 1.41 H Glucose Level 104 Calcium Level 9.7 Test 01/28/17 17:57 Bedside Glucose 89 Medications Medications Current Medications Miscellaneous Information 1 ea NOTE XX ; Start 01/17/17 at 10:00 Glucose (Glutose) 15 gm Q15M PRN PO DECREASED GLUCOSE; Start 01/17/17 at 10:00 Glucose (Glutose) 22.5 gm Q15M PRN PO DECREASED GLUCOSE; Start 01/17/17 at 10: 00 Dextrose (D50w Syringe) 25 ml Q15M PRN IV DECREASED GLUCOSE; Start 01/17/17 at 10:00 Dextrose (D50w Syringe) 50 ml Q15M PRN IV DECREASED GLUCOSE; Start 01/17/17 at 10:00 Glucagon (Glucagen) 1 mg Q15M PRN IM DECREASED GLUCOSE; Start 01/17/17 at 10:00 Glucose (Glutose) 15 gm Q15M PRN BUCCAL DECREASED GLUCOSE; Start 01/17/17 at 10 :00 Collagenase (Santyl) 1 applic DAILY TOP Last administered on 01/28/17 09:43; Admin Dose 1 APPLIC; Start 01/17/17 at 21:00 IV Flush (NS 10 ml) 10 ml PRN PRN IV IV PROTOCOL; Start 01/22/17 at 12:00 Insulin Aspart (Novolog Insulin Pen) NOVOLOG *MILD* ALGORI... Q6 SC Last administered on 01/26/17 18:02; Admin Dose 1 UNIT; Start 01/23/17 at 18:00 Miscellaneous Information (Pending Santyl Order For Wound Care) This patient dunaway... PRN PRN XX WOUND CARE; Start 01/24/17 at 07:30 Bisacodyl 10 mg 10 mg DAILY PRN [place] CONSTIPATION Last administered on 01/25/17 17:37; Admin Dose 10 MG; Start 01/25/17 at 16:30 Piperacillin Sod/ Tazobactam Sod (Zosyn 3.375gm/ 100 ml (Pmx)) 100 ml @ 200 mls /hr Q6 IVPB Last administered on 01/28/17 12:51; Admin Dose 200 MLS/HR; Start 01/26/17 at 10:00 Acetaminophen (Tylenol Liquid) 650 mg Q4H PRN NGT PAIN AND OR ELEVATED TEMP Last administered on 01/26/17 09:31; Admin Dose 650 MG; Start 01/26/17 at 09:00 Metoprolol Tartrate (Lopressor) 2.5 mg Q4H PRN IV NOTE; Start 01/26/17 at 15:00 Enoxaparin Sodium (Lovenox) 60 mg Q24H SC Last administered on 01/27/17 21:30 ; Admin Dose 60 MG; Start 01/26/17 at 19:30 Metoprolol Tartrate (Lopressor) 2.5 mg Q4 IV ; Start 01/28/17 at 17:00 Midodrine (Proamatine) 5 mg Q8 PRN GTB BLOOD PRESSURE SUPPORT; Start 01/28/17 at 16:30 TYE STYLES M.D. Jan 28, 2017 20:21
[2017-01-28] MEDS: ENOXAPARIN 60 MG/0.6 ML SYG SC SCH (20:53)
[2017-01-29] VITALS (11 sets, daily range): BP systolic 101–126; BP diastolic 58–88; PULSE 65–110; RESP 18–20
[2017-01-29] MEDS: PIPER-TAZO 3.375 GM IV (PMX) 100 ML IVPB SCH ×5 (00:32→23:12)
[2017-01-29] MEDS: LEVALBUTEROL (NEB) 0.63 MG/3 ML AMP HHN SCH ×4 (01:37→20:51)
[2017-01-29] MEDS: METOPROLOL 5 MG INJ IV SCH ×6 (02:21→21:44)
--- NOTE | 2017-01-29 04:08 | CONS ---
DATE OF ADMISSION: 01/16/2017 DATE OF CONSULTATION: 01/27/2017 HISTORY OF PRESENT ILLNESS: This is a 61-year-old female, who is admitted to the hospital on 01/16/2017 because of history of having altered mental status. She has a history of fasciotomy, IVC filter placement. Status post cardiac cath in the past. She has history of atrial fibrillation and because of the stroke she continues to be unresponsive. She has no way of taking oral medications or oral diet. She has NG tube at this time. The percutaneous endoscopic gastrostomy tube placement has been requested. At this time, as mentioned earlier, she is unresponsive to she cannot communicate. MEDICATION: Lovenox, Lopressor, Zosyn, Dulcolax, NovoLog, aspirin. PHYSICAL EXAMINATION: GENERAL: Patient is a 61-year-old, female, who at this time is unresponsive. VITAL SIGNS: Temperature is 98.6. HEART: Normal heart sounds. Except she has got atrial fibrillation. LUNGS: Normal breath sounds. ABDOMEN: Soft. No palpable masses. No tenderness. No distention. LABORATORY: Workup for prothrombin time 17.0, INR 1.3. The WBC count 13,100, hemoglobin 11.2. Potassium 4.4, creatinine is 1.36, BUN 33. IMPRESSION: Patient presenting with history of his cerebrovascular accident. She is unable to take any food by mouth and at this time a percutaneous endoscopic gastrostomy tube placement has been requested. This we performed tomorrow. Dear Dr. Valdovinos, thank you for asking me to see Mrs. Mcmullen in GI consultation. Dictated By: Santiago Garcia MD /ange/abhi /Document#: [id number] CC: Kana Valdovinos MD; Santiago Garcia MD;*EndCC*
--- NOTE | 2017-01-29 05:30 | PN ---
DATE: 01/26/2017 ADDENDUM: I had a meeting with the patient's son Juan and his younger brother and went over second opinion from Dr. Payne and her recommendations are PEG tube and palliative care. Very poor prognosis for meaningful recovery explained to the family as per neurologist. Patient's family is requesting another MRI of the brain. We will also order EEG. The patient's family requested me to speak with the family friend Devyn Valdes who is a nurse. I had a lengthy discussion with her regarding patient's condition and prognosis. Dictated By: Kana Valdovinos MD /ange/alphonso /Document#: [id number]
--- NOTE | 2017-01-29 05:36 | GILP ---
DATE OF PROCEDURE: 01/28/2017 PROCEDURE PERFORMED: Esophagogastroduodenoscopy, percutaneous endoscopic gastrostomy tube placement. PREOP DIAGNOSIS.: Patient presenting with history of difficulty in swallowing, history of CVA. Because of this, a percutaneous endoscopic gastrostomy tube needed to be placed. POSTOP DIAGNOSIS: Patient presenting with history of difficulty in swallowing, history of CVA. Because of this, a percutaneous endoscopic gastrostomy tube needed to be placed. PROCEDURE: After informed written consent was obtained, the patient was asked to lie in the supine position. Intravenous anesthesia was given by anesthesiologist, Dr. Preston. When the patient became somnolent, Olympus video upper endoscope was introduced into the oropharynx and then into the esophagus. The esophagus appeared normal. Stomach appeared normal. Duodenum appeared normal. Endoscope at this time was withdrawn to the level of the gastric cavity. The anterior abdominal wall was prepared with Betadine and alcohol. 2 cc of 2 percent xylocaine was infiltrated at the endoscopic eliminating site. Under this site 5 mm incision was made by using the scalpel. Through this incision, trocar was inserted into the stomach and stylet was removed. At this time, guidewire was inserted through the trocar into the stomach and a guidewire was grabbed with a polypectomy snare. Then this was brought out through the mouth along with the endoscope. To this end of the guidewire, a number 20 microvasive G-tube was tied in a loop fashion and then it was brought up through the abdominal wall incision. At this time a retention bumper was placed over the G-tube close to the skin. Tapered into the gastrostomy tube was cut and the adapter was placed. The procedure was terminated. PLAN: Recommend start the G-tube feeding in a.m. Dictated By: Santiago Garcia MD /ange/giana /Document#: [id number] CC: Kana Valdovinos MD;*EndCC*
[2017-01-29] MEDS: INSULIN ASPART [NOVOLOG] 3 ML PEN SC SCH ×5 (06:00→23:49)
[2017-01-29 06:52] LABS: BASOPHIL # 0.1 10^3/ul (0.0-0.1); BASOPHILS % 0.9 % (0.0-2.0); EOSINOPHILS # 0.2 10^3/ul (0.0-0.5); EOSINOPHILS % 2.1 % (0.0-7.0); HEMATOCRIT 33.6 % (37.0-47.0); HEMOGLOBIN 10.6 g/dl (12.0-16.0); LYMPHOCYTES # 1.2 10^3/ul (0.8-2.9); LYMPHOCYTES % 10.6 % (15.0-51.0); MEAN CORPUSCULAR HEMOGLOBIN 25.8 pg (29.0-33.0); MEAN CORPUSCULAR HGB CONC 31.5 g/dl (32.0-37.0); MEAN CORPUSCULAR VOLUME 81.8 fl (82.0-101.0); MEAN PLATELET VOLUME 12.1 fl (7.4-10.4); MONOCYTE # 0.7 10^3/ul (0.3-0.9); MONOCYTES % 6.6 % (0.0-11.0); NEUTROPHIL # 8.6 10^3/ul (1.6-7.5); NEUTROPHILS % 79.4 % (39.0-77.0); PLATELET COUNT 502 10^3/UL (140-415); RED BLOOD COUNT 4.11 10^6/ul (4.20-5.40); RED CELL DISTRIBUTION WIDTH 16.5 % (11.5-14.5); WHITE BLOOD COUNT 10.9 10^3/ul (4.8-10.8)
--- NOTE | 2017-01-29 07:30 | PN ---
Date/Time of Note Date/Time of Note DATE: 01/29/17 TIME: 07:30 Assessment/Plan VTE Prophylaxis VTE Prophylaxis Intervention: other Lines/Catheters IV Catheter Type [facility]from [facility] PICC Line Central line still needed: Yes Urinary Cath still in place: Yes Reason Cath still needed: skin wounds contaminated by urine Assessment/Plan Chief Complaint/Hosp Course -Mild leukocytosis with low-grade fevers secondary to possible pneumonia, continue Zosyn, follow up on final cultures monitor chest x-ray. - Bilateral thalamic infarctions, Dr. Payne, neurology consult is appreciated. Continue aspirin - Dysphagia, Dr. Garcia is is following in gastroenterology consultation. Plan for G-tube placement tomorrow. - Staph aureus bacteremia vs contamination, status post antibiotics, 2D echo is negative for vegetation. CSF is unremarkable. Dr. Abarca is following infection disease consultation. - Atrial fibrillation with rapid ventricular response, currently rate is controlled. Dr. Armenta is following and cardiology consultation. - Thrombosis of the bilateral cephalic veins. Continue Lovenox. - Acute kidney injury, Dr. Poole is following in nephrology consultation. - History of CVA - History of hyperlipidemia - Left lower extremity, status post vascular surgery. Problems: Subjective 24 Hr Interval Summary Free Text/Dictation Patient is resting, comfortable Exam/Review of Systems Vital Signs Vitals Vital Signs Date Time Temp Pulse Resp B/P Pulse Ox O2 Delivery O2 Flow Rate FiO2 01/29/17 07:28 98.5 82 18 118/60 94 01/29/17 01:37 21 01/28/17 20:08 2.0 01/28/17 20:08 Nasal Cannula Intake and Output 01/28/17 01/28/17 01/29/17 15:00 23:00 07:00 Intake Total 1400 ml 250 ml Output Total 600 ml 650 ml Balance 800 ml -400 ml Exam Constitutional: well developed Head: atraumatic, normocephalic Neck: supple Respiratory: clear to auscultation Cardiovascular: regular rate and rhythm Gastrointestinal: non-tender, soft Extremities: normal pulses Results Result Diagram: 01/29/17 0629 01/28/17 0726 Results 24 hrs Laboratory Tests Test 01/28/17 12:24 01/28/17 17:57 01/29/17 00:30 01/29/17 05:16 Bedside Glucose 104 89 98 109 Test 01/29/17 06:29 White Blood Count 10.9 H Red Blood Count 4.11 L Hemoglobin 10.6 L Hematocrit 33.6 L Mean Corpuscular Volume 81.8 L Mean Corpuscular Hemoglobin 25.8 L Mean Corpuscular Hemoglobin Concent 31.5 L Red Cell Distribution Width 16.5 H Platelet Count 502 H Mean Platelet Volume 12.1 H Neutrophils % 79.4 H Lymphocytes % 10.6 L Monocytes % 6.6 Eosinophils % 2.1 Basophils % 0.9 Nucleated Red Blood Cells % 0.0 Neutrophils # 8.6 H Lymphocytes # 1.2 Monocytes # 0.7 Eosinophils # 0.2 Basophils # 0.1 Nucleated Red Blood Cells # 0.0 Medications Medications Current Medications Miscellaneous Information 1 ea NOTE XX ; Start 01/17/17 at 10:00 Glucose (Glutose) 15 gm Q15M PRN PO DECREASED GLUCOSE; Start 01/17/17 at 10:00 Glucose (Glutose) 22.5 gm Q15M PRN PO DECREASED GLUCOSE; Start 01/17/17 at 10: 00 Dextrose (D50w Syringe) 25 ml Q15M PRN IV DECREASED GLUCOSE; Start 01/17/17 at 10:00 Dextrose (D50w Syringe) 50 ml Q15M PRN IV DECREASED GLUCOSE; Start 01/17/17 at 10:00 Glucagon (Glucagen) 1 mg Q15M PRN IM DECREASED GLUCOSE; Start 01/17/17 at 10:00 Glucose (Glutose) 15 gm Q15M PRN BUCCAL DECREASED GLUCOSE; Start 01/17/17 at 10 :00 Collagenase (Santyl) 1 applic DAILY TOP Last administered on 01/28/17 09:43; Admin Dose 1 APPLIC; Start 01/17/17 at 21:00 IV Flush (NS 10 ml) 10 ml PRN PRN IV IV PROTOCOL; Start 01/22/17 at 12:00 Insulin Aspart (Novolog Insulin Pen) NOVOLOG *MILD* ALGORI... Q6 SC Last administered on 01/26/17 18:02; Admin Dose 1 UNIT; Start 01/23/17 at 18:00 Miscellaneous Information (Pending Santyl Order For Wound Care) This patient dunaway... PRN PRN XX WOUND CARE; Start 01/24/17 at 07:30 Bisacodyl 10 mg 10 mg DAILY PRN [place] CONSTIPATION Last administered on 01/25/17 17:37; Admin Dose 10 MG; Start 01/25/17 at 16:30 Piperacillin Sod/ Tazobactam Sod (Zosyn 3.375gm/ 100 ml (Pmx)) 100 ml @ 200 mls /hr Q6 IVPB Last administered on 01/29/17 06:35; Admin Dose 200 MLS/HR; Start 01/26/17 at 10:00 Acetaminophen (Tylenol Liquid) 650 mg Q4H PRN NGT PAIN AND OR ELEVATED TEMP Last administered on 01/26/17 09:31; Admin Dose 650 MG; Start 01/26/17 at 09:00 Metoprolol Tartrate (Lopressor) 2.5 mg Q4H PRN IV NOTE; Start 01/26/17 at 15:00 Enoxaparin Sodium (Lovenox) 60 mg Q24H SC Last administered on 01/28/17 20:53 ; Admin Dose 60 MG; Start 01/26/17 at 19:30 Metoprolol Tartrate (Lopressor) 2.5 mg Q4 IV Last administered on 01/29/17 02: 21; Admin Dose 2.5 MG; Start 01/28/17 at 17:00 Midodrine (Proamatine) 5 mg Q8 PRN GTB BLOOD PRESSURE SUPPORT; Start 01/28/17 at 16:30 JOSE LOMAS Jan 29, 2017 07:30
[2017-01-29 07:56] LABS: CALCIUM 9.6 mg/dl (8.4-10.2); CREATININE 1.35 mg/dl (0.44-1.00); POTASSIUM 4.6 mmol/L (3.5-5.1)
--- NOTE | 2017-01-29 08:58 | RADRPT ---
PROCEDURE: Chest Radiograph. CLINICAL INDICATION: Cough TECHNIQUE: Single frontal chest radiograph. COMPARISON: Chest radiograph 01/26/2017 FINDINGS: There has been interval removal of a nasogastric tube. A left upper extremity PICC remains in stabl e and radiographically appropriate position. The heart is magnified and may be enlarged. There is improved aeration of the bilateral lung bases with persistent mild basilar atelectasis or infiltrate . No pleural effusions are identified. The bones are intact. IMPRESSION: 1. Improved aeration of the lung bases. 2. Otherwise stable radiographic appearance of the chest compared to 01/26/2017. RPTAT: KK .Dominick Fournier MD, MD Date Time Electronically viewed and signed by .Dominick Fournier MD, on 01/29/2017 08:57 .B/
--- NOTE | 2017-01-29 09:25 | HKNOTE ---
DATE OF SERVICE: 01/18/2017 HISTORY OF PRESENT ILLNESS: The patient is a 71-year-old who has a history of atrial fibrillation, hypertension, encephalopathy, coagulopathy, acute renal failure, leukocytosis. PHYSICAL EXAMINATION: GENERAL: On exam today the patient does not follow any simple commands. Localized for painful stimuli with grabbing my hand upon painful stimuli. Moving both upper extremities. CRANIAL NERVES: CRANIAL NERVE II: Pupils equal on both sides at this time. CRANIAL NERVE III, IV, and : Intact. CRANIAL NERVE V and VII: Intact corneal reflexes. CRANIAL NERVE VIII though XII: Could not assess. MOTOR: Moving both upper extremities to painful stimulation. SENSATION, GAIT AND COORDINATION: Could not assess. HEART: Regular rate and rhythm. LUNGS: Equal breath sounds. ABDOMEN: Soft. Nondistended. No tenderness. ASSESSMENT AND PLAN: 1. The patient is a 61-year-old with decreased mental status. 2. Possibly underlying acute encephalopathy. Possibly underlying toxic metabolic. 3. Possibly underlying postictal status. Follow with seizure precautions. EEG. 4. Atrial fibrillation with good control. Follow up the patient telemetry on Intensive Care Unit. Thank you for asking me to see the patient with you. Dictated By: Connor Lozano MD /ange/abhi /Document#: [id number]
--- NOTE | 2017-01-29 09:36 | PN ---
DATE: 01/21/2017 ADDENDUM: I met with the patient's , Melecio, 2 children including Juan, who is a spokesperson for the family. The patient hospital course was discussed with them and also findings of a new MRI of the brain which revealed multiple thalamic infarct with involvement of brainstem. Guarded prognosis explained was to them and I also explained to them that the patient would most likely remained total care. For now, they have agreed for NG tube placement for nutrition. They also request if the patient could be transferred to tertiary care. Dictated By: Kana Valdovinos MD /ange/ /Document#: [id number]
[2017-01-29] MEDS: COLLAGENASE 30 GM TUBE TOP SCH (10:30)
--- NOTE | 2017-01-29 10:42 | CONS ---
Date/Time of Note Date/Time of Note DATE: 01/29/17 TIME: 10:41 Assessment/Plan Assessment/Plan Chief Complaint/Hosp Course assessment/impression: - low grade leukocytosis, ?infectious process vs. neurological process - acute encephalopathy. CSF from 01/19/2017: WBC=3, RBC=0, glu 53, pro=61, CSF ( [place] serology negative, HSV negative, cocci CF negative, encephalitis meningitis panel could not be done due to a lack of sample), serum ([place] PCR negative, crypto antigen negative, cocci CF negative, histo CF negative). my order of crypto in CSF was cancelled and no reason given - bacteremia due to CoNS, probable contaminant. 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) - A fib - h/o DVT - h/o LLE ischemia s/p thrombolysis and subsequent open thrombectomy and fasciotomy at [facility] 09/2015 - h/o thrombus on DEBBIE per records from [facility] recommendations: - I recommend 5 days of empiric pip/tazo (01/26/2017-) for possible aspiration Problems: Consultation Date/Type/Reason Admit Date/Time Jan 16, 2017 at 15:19 Initial Consult Date 01/17/17 Type of Consultation: ID Referring Provider: LAWRENCE PICKERING 24 HR Interval Summary Subjective hx not possible: pt non-verbal Exam/Review of Systems Vital Signs Vitals Vital Signs Date Time Temp Pulse Resp B/P Pulse Ox O2 Delivery O2 Flow Rate FiO2 01/29/17 08:29 79 20 98 21 01/29/17 07:28 98.5 118/60 01/28/17 20:08 2.0 01/28/17 20:08 Nasal Cannula Intake and Output 01/28/17 01/28/17 01/29/17 15:00 23:00 07:00 Intake Total 1400 ml 250 ml Output Total 600 ml 650 ml Balance 800 ml -400 ml Exam Constitutional: frail, non-verbal Psych: confusion Head: atraumatic, normocephalic Eyes: nl conjunctiva, nl lids ENMT: nl external ears & nose Respiratory: wheezing Cardiovascular: nl pulses, regular rate and rhythm Gastrointestinal: non-tender, other (G tube in place), soft Musculoskeletal: nl extremities to inspection Extremities: No edema Neurological: lethargic Skin: nl turgor Results Result Diagram: 01/29/17 0629 01/29/17 0629 Results 24 hrs Laboratory Tests Test 01/28/17 12:24 01/28/17 17:57 01/29/17 00:30 01/29/17 05:16 Bedside Glucose 104 89 98 109 Test 01/29/17 06:29 White Blood Count 10.9 H Red Blood Count 4.11 L Hemoglobin 10.6 L Hematocrit 33.6 L Mean Corpuscular Volume 81.8 L Mean Corpuscular Hemoglobin 25.8 L Mean Corpuscular Hemoglobin Concent 31.5 L Red Cell Distribution Width 16.5 H Platelet Count 502 H Mean Platelet Volume 12.1 H Neutrophils % 79.4 H Lymphocytes % 10.6 L Monocytes % 6.6 Eosinophils % 2.1 Basophils % 0.9 Nucleated Red Blood Cells % 0.0 Neutrophils # 8.6 H Lymphocytes # 1.2 Monocytes # 0.7 Eosinophils # 0.2 Basophils # 0.1 Nucleated Red Blood Cells # 0.0 Sodium Level 146 H Potassium Level 4.6 Chloride Level 105 Carbon Dioxide Level 27 Anion Gap 19 H Blood Urea Nitrogen 27 H Creatinine 1.35 H Glucose Level 134 Calcium Level 9.6 Medications Medications Current Medications Miscellaneous Information 1 ea NOTE XX ; Start 01/17/17 at 10:00 Glucose (Glutose) 15 gm Q15M PRN PO DECREASED GLUCOSE; Start 01/17/17 at 10:00 Glucose (Glutose) 22.5 gm Q15M PRN PO DECREASED GLUCOSE; Start 01/17/17 at 10: 00 Dextrose (D50w Syringe) 25 ml Q15M PRN IV DECREASED GLUCOSE; Start 01/17/17 at 10:00 Dextrose (D50w Syringe) 50 ml Q15M PRN IV DECREASED GLUCOSE; Start 01/17/17 at 10:00 Glucagon (Glucagen) 1 mg Q15M PRN IM DECREASED GLUCOSE; Start 01/17/17 at 10:00 Glucose (Glutose) 15 gm Q15M PRN BUCCAL DECREASED GLUCOSE; Start 01/17/17 at 10 :00 Collagenase (Santyl) 1 applic DAILY TOP Last administered on 01/29/17t 10:30; Admin Dose 1 APPLIC; Start 01/17/17 at 21:00 IV Flush (NS 10 ml) 10 ml PRN PRN IV IV PROTOCOL; Start 01/22/17 at 12:00 Insulin Aspart (Novolog Insulin Pen) NOVOLOG *MILD* ALGORI... Q6 SC Last administered on 01/26/17 18:02; Admin Dose 1 UNIT; Start 01/23/17 at 18:00 Miscellaneous Information (Pending Santyl Order For Wound Care) This patient dunaway... PRN PRN XX WOUND CARE; Start 01/24/17 at 07:30 Bisacodyl 10 mg 10 mg DAILY PRN [place] CONSTIPATION Last administered on 01/25/17 17:37; Admin Dose 10 MG; Start 01/25/17 at 16:30 Piperacillin Sod/ Tazobactam Sod (Zosyn 3.375gm/ 100 ml (Pmx)) 100 ml @ 200 mls /hr Q6 IVPB Last administered on 01/29/17 06:35; Admin Dose 200 MLS/HR; Start 01/26/17 at 10:00 Acetaminophen (Tylenol Liquid) 650 mg Q4H PRN NGT PAIN AND OR ELEVATED TEMP Last administered on 01/26/17 09:31; Admin Dose 650 MG; Start 01/26/17 at 09:00 Metoprolol Tartrate (Lopressor) 2.5 mg Q4H PRN IV NOTE; Start 01/26/17 at 15:00 Enoxaparin Sodium (Lovenox) 60 mg Q24H SC Last administered on 01/28/17 20:53 ; Admin Dose 60 MG; Start 01/26/17 at 19:30 Metoprolol Tartrate (Lopressor) 2.5 mg Q4 IV Last administered on 01/29/17 10: 30; Admin Dose 2.5 MG; Start 01/28/17 at 17:00 Midodrine (Proamatine) 5 mg Q8 PRN GTB BLOOD PRESSURE SUPPORT; Start 01/28/17 at 16:30 TYE STYLES M.D. Jan 29, 2017 10:42
--- NOTE | 2017-01-29 12:20 | CONS ---
DATE OF ADMISSION: 01/16/2017 DATE OF CONSULTATION: 01/17/2017 HISTORY OF PRESENT ILLNESS: The patient is 61 years old, found unresponsive with the patient brought to [facility]. The patient has multiple medical problems in the form of seizures, COPD, hypothyroidism, hyperlipidemia, psychiatric disorder, abdominal pain, GERD. The patient is still drowsy and sleepy. CURRENT MEDICATIONS: Include: 1. Aspirin 81 mg once a day. 2. Keppra 500 mg b.i.d.. 3. Norvasc 5 mg once a day. 4. Vitamin C 500 mg once a day. 5. Celexa 10 mg once a day. 6. Seroquel 25 mg once a day. 7. Cordarone 200 mg once a day. 8. Protonix 40 mg once a day. 9. Zofran 4 mg once a day. 10. Metoprolol 12.5 mg once a day. 11. Seroquel 50 mg once a day. 12. Apixaban 5 mg b.i.d. 13. Ativan 0.5 mg p.r.n. 14. Zofran p.r.n. 15. Ambien 5 mg once at night p.r.n. PHYSICAL EXAMINATION: GENERAL: On exam today, the patient is alert, awake, and oriented, following simple commands. HEART: Regular rate and rhythm. LUNGS: Equal breath sounds. ABDOMEN: Soft, nondistended, and nontender. ASSESSMENT AND PLAN: The patient is a 61-year-old lady with: 1. Underlying seizure disorder. Start the patient on Keppra 500 mg. Continue the patient on Keppra and discontinue the Dilantin. 2. Acute encephalopathy, probably secondary to underlying anoxia. 3. Atrial fibrillation with the patient on Eliquis 5 mg twice a day. 4. Anxiety with the patient on Seroquel, as well as Ativan as needed. 5. Chronic obstructive pulmonary disease with the patient on breathing therapy. 6. Dementia. Follow up the patient's mini-mental status when stable as an outpatient. Again, thank you Dr. Hinds for asking me to see the patient with you. Dictated By: Connor Lozano MD /ange/marilyn /Document#: [id number]
--- NOTE | 2017-01-29 12:20 | HKNOTE ---
DATE OF SERVICE: 01/17/2017 HISTORY OF PRESENT ILLNESS: The patient is a 71-year-old lady with a history of atrial fibrillation, encephalopathy, seizure disorder, decreased mental status. PAST MEDICAL HISTORY: 1. Atrial fibrillation. 2. Hypertension. 3. Stroke x2. 4. Left lower extremity venous thrombosis for 2 months. 5. IV filter. 6. Cardiac cath. HISTORY OF PRESENT ILLNESS: CPR was indicated as found the patient unresponsive. Brought here to the hospital. CURRENT MEDICATIONS: 1. Vancomycin as needed. 2. Lovenox 30 mg twice a day. 3. Insulin sliding scale. 4. Keppra 500 mg twice a day. 5. Metoprolol 5 mg twice a day. PHYSICAL EXAMINATION: The patient does not follow commands, sleepy. Can move both upper extremities to stimuli. DIAGNOSTICS: MRI done shows some deep white matter change, bilateral hemisphere, thalamus. ASSESSMENT AND PLAN: 1. The patient is 71 years old with underlying acute encephalopathy. 2. Possibility of underlying stroke. 3. Patient on Lovenox 30 mg twice a day. I am going to add for her aspirin 81 mg once a day for stroke prophylaxis. 4. Possibility of underlying seizure activity. Give the patient Keppra 500 mg encephalogram. 5. Possibility of underlying infection. The patient followed by infectious disease (ID). Dictated By: Connor Lozano MD /ange/lorena /Document#: [id number]
--- NOTE | 2017-01-29 12:27 | CONS ---
Date/Time of Note Date/Time of Note DATE: 01/29/17 TIME: 12:27 Assessment/Plan Assessment/Plan Additional Assessment/Plan (1) Anemia Comment: Hct stable at 39% (2) MARIELA (acute kidney injury) Status: Acute Comment: Ac renal failure improved though pt has CKD3 No further need for IV fluids (3) Altered level of consciousness Status: Acute further plans per Neuro Jeevanpp Renal Function stable Cont current Rx and plan Consultation Date/Type/Reason Admit Date/Time Jan 16, 2017 at 15:19 Initial Consult Date 01/17/17 Type of Consultation: Renal Referring Provider: LAWRENCE PICKERING 24 HR Interval Summary Constitutional: No requiring O2 Exam/Review of Systems Vital Signs Vitals Vital Signs Date Time Temp Pulse Resp B/P Pulse Ox O2 Delivery O2 Flow Rate FiO2 01/29/17 11:05 97.9 73 18 126/58 96 01/29/17 08:29 21 01/28/17 20:08 2.0 01/28/17 20:08 Nasal Cannula Intake and Output 01/28/17 01/28/17 01/29/17 15:00 23:00 07:00 Intake Total 1400 ml 250 ml Output Total 600 ml 650 ml Balance 800 ml -400 ml Exam Constitutional: No distress ENMT: mucosa pink and moist Neck: No jvd Respiratory: clear to auscultation Cardiovascular: No edema, No regular rate and rhythm Gastrointestinal: soft Results Result Diagram: 01/29/17 0629 01/29/17 0629 Results 24 hrs Laboratory Tests Test 01/28/17 17:57 01/29/17 00:30 01/29/17 05:16 01/29/17 06:29 Bedside Glucose 89 98 109 White Blood Count 10.9 H Red Blood Count 4.11 L Hemoglobin 10.6 L Hematocrit 33.6 L Mean Corpuscular Volume 81.8 L Mean Corpuscular Hemoglobin 25.8 L Mean Corpuscular Hemoglobin Concent 31.5 L Red Cell Distribution Width 16.5 H Platelet Count 502 H Mean Platelet Volume 12.1 H Neutrophils % 79.4 H Lymphocytes % 10.6 L Monocytes % 6.6 Eosinophils % 2.1 Basophils % 0.9 Nucleated Red Blood Cells % 0.0 Neutrophils # 8.6 H Lymphocytes # 1.2 Monocytes # 0.7 Eosinophils # 0.2 Basophils # 0.1 Nucleated Red Blood Cells # 0.0 Sodium Level 146 H Potassium Level 4.6 Chloride Level 105 Carbon Dioxide Level 27 Anion Gap 19 H Blood Urea Nitrogen 27 H Creatinine 1.35 H Glucose Level 134 Calcium Level 9.6 Medications Medications Current Medications Miscellaneous Information 1 ea NOTE XX ; Start 01/17/17 at 10:00 Glucose (Glutose) 15 gm Q15M PRN PO DECREASED GLUCOSE; Start 01/17/17 at 10:00 Glucose (Glutose) 22.5 gm Q15M PRN PO DECREASED GLUCOSE; Start 01/17/17 at 10: 00 Dextrose (D50w Syringe) 25 ml Q15M PRN IV DECREASED GLUCOSE; Start 01/17/17 at 10:00 Dextrose (D50w Syringe) 50 ml Q15M PRN IV DECREASED GLUCOSE; Start 01/17/17 at 10:00 Glucagon (Glucagen) 1 mg Q15M PRN IM DECREASED GLUCOSE; Start 01/17/17 at 10:00 Glucose (Glutose) 15 gm Q15M PRN BUCCAL DECREASED GLUCOSE; Start 01/17/17 at 10 :00 Collagenase (Santyl) 1 applic DAILY TOP Last administered on 01/29/17 10:30; Admin Dose 1 APPLIC; Start 01/17/17 at 21:00 IV Flush (NS 10 ml) 10 ml PRN PRN IV IV PROTOCOL; Start 01/22/17 at 12:00 Insulin Aspart (Novolog Insulin Pen) NOVOLOG *MILD* ALGORI... Q6 SC Last administered on 01/26/17 18:02; Admin Dose 1 UNIT; Start 01/23/17 at 18:00 Miscellaneous Information (Pending Santyl Order For Wound Care) This patient dunaway... PRN PRN XX WOUND CARE; Start 01/24/17 at 07:30 Bisacodyl 10 mg 10 mg DAILY PRN [place] CONSTIPATION Last administered on 01/25/17 17:37; Admin Dose 10 MG; Start 01/25/17 at 16:30 Piperacillin Sod/ Tazobactam Sod (Zosyn 3.375gm/ 100 ml (Pmx)) 100 ml @ 200 mls /hr Q6 IVPB Last administered on 01/29/17 06:35; Admin Dose 200 MLS/HR; Start 01/26/17 at 10:00 Acetaminophen (Tylenol Liquid) 650 mg Q4H PRN NGT PAIN AND OR ELEVATED TEMP Last administered on 01/26/17 09:31; Admin Dose 650 MG; Start 01/26/17 at 09:00 Metoprolol Tartrate (Lopressor) 2.5 mg Q4H PRN IV NOTE; Start 01/26/17 at 15:00 Enoxaparin Sodium (Lovenox) 60 mg Q24H SC Last administered on 01/28/17 20:53 ; Admin Dose 60 MG; Start 01/26/17 at 19:30 Metoprolol Tartrate (Lopressor) 2.5 mg Q4 IV Last administered on 01/29/17 10: 30; Admin Dose 2.5 MG; Start 01/28/17 at 17:00 Midodrine (Proamatine) 5 mg Q8 PRN GTB BLOOD PRESSURE SUPPORT; Start 01/28/17 at 16:30 MC SHARPE MD Jan 29, 2017 12:27
--- NOTE | 2017-01-29 13:11 | CONS ---
Date/Time of Note Date/Time of Note DATE: 01/29/17 TIME: 13:07 Assessment/Plan Assessment/Plan Chief Complaint/Hosp Course IMP: 1. AF-mainly rate controlled/Trop negative x 3 2.Hypotension-now improved on midodrine 3.encephalopathy/ams 4.coagulopathy-now decreased with coumadin held 5. Acute Renal failure-? secondary to vanc 6.Leukocytosis 7. Cardiomyopathy-EF 45% 8. Cephalic vein thrombosis 9. Dysphagia s/p PEG Recc: -Tele -serial ecg's -Lovenox -Continue keppra/abx's/acyclovir -Follow MS closely with ongoing neuro eval -IVP BB for rate control a -s/p dose IVP digoxin -PRN midodrine for low BP Problems: Consultation Date/Type/Reason Admit Date/Time Jan 16, 2017 at 15:19 Initial Consult Date 01/17/17 Type of Consultation: cardiology Reason for Consultation AF Referring Provider: LAWRENCE PICKERING Exam/Review of Systems Vital Signs Vitals Vital Signs Date Time Temp Pulse Resp B/P Pulse Ox O2 Delivery O2 Flow Rate FiO2 01/29/17 12:44 110 01/29/17 11:05 97.9 18 126/58 96 01/29/17 08:29 21 01/28/17 20:08 2.0 01/28/17 20:08 Nasal Cannula Intake and Output 01/28/17 01/28/17 01/29/17 15:00 23:00 07:00 Intake Total 1400 ml 250 ml Output Total 600 ml 650 ml Balance 800 ml -400 ml Exam Review of Systems: CONSTITUTIONAL: No fevers, chills. PULMONARY: No sob CARDIOVASCULAR: No chest pain/palpitations GASTROINTESTINAL: No nausea/vomiting. GENITOURINARY: No hematuria/dysuria. MUSCULOSKELETAL: No myagias/arthalgias. PSYCHIATRIC: The patient denies depression. NEUROLOGIC: encephalopathic Constitutional: other (encephalopathic) Head: normocephalic ENMT: mucosa pink and moist Neck: jvd (8-9 cm water), supple Respiratory: diminished breath sounds (at bases/B) Cardiovascular: irregular rhythm Gastrointestinal: non-tender, soft Musculoskeletal: muscle weakness (generalized) Extremities: edema (none) Neurological: unresponsive Results Result Diagram: 7/28/17 0629 7/28/17 0629 Results 24 hrs Laboratory Tests Test 01/28/17 17:57 01/29/17 00:30 01/29/17 05:16 01/29/17 06:29 Bedside Glucose 89 98 109 White Blood Count 10.9 H Red Blood Count 4.11 L Hemoglobin 10.6 L Hematocrit 33.6 L Mean Corpuscular Volume 81.8 L Mean Corpuscular Hemoglobin 25.8 L Mean Corpuscular Hemoglobin Concent 31.5 L Red Cell Distribution Width 16.5 H Platelet Count 502 H Mean Platelet Volume 12.1 H Neutrophils % 79.4 H Lymphocytes % 10.6 L Monocytes % 6.6 Eosinophils % 2.1 Basophils % 0.9 Nucleated Red Blood Cells % 0.0 Neutrophils # 8.6 H Lymphocytes # 1.2 Monocytes # 0.7 Eosinophils # 0.2 Basophils # 0.1 Nucleated Red Blood Cells # 0.0 Sodium Level 146 H Potassium Level 4.6 Chloride Level 105 Carbon Dioxide Level 27 Anion Gap 19 H Blood Urea Nitrogen 27 H Creatinine 1.35 H Glucose Level 134 Calcium Level 9.6 Test 01/29/17 12:28 Bedside Glucose 119 Medications Medications Current Medications Miscellaneous Information 1 ea NOTE XX ; Start 01/17/17 at 10:00 Glucose (Glutose) 15 gm Q15M PRN PO DECREASED GLUCOSE; Start 01/17/17 at 10:00 Glucose (Glutose) 22.5 gm Q15M PRN PO DECREASED GLUCOSE; Start 01/17/17 at 10: 00 Dextrose (D50w Syringe) 25 ml Q15M PRN IV DECREASED GLUCOSE; Start 01/17/17 at 10:00 Dextrose (D50w Syringe) 50 ml Q15M PRN IV DECREASED GLUCOSE; Start 01/17/17 at 10:00 Glucagon (Glucagen) 1 mg Q15M PRN IM DECREASED GLUCOSE; Start 01/17/17 at 10:00 Glucose (Glutose) 15 gm Q15M PRN BUCCAL DECREASED GLUCOSE; Start 01/17/17 at 10 :00 Collagenase (Santyl) 1 applic DAILY TOP Last administered on 01/29/17t 10:30; Admin Dose 1 APPLIC; Start 01/17/17 at 21:00 IV Flush (NS 10 ml) 10 ml PRN PRN IV IV PROTOCOL; Start 01/22/17 at 12:00 Insulin Aspart (Novolog Insulin Pen) NOVOLOG *MILD* ALGORI... Q6 SC Last administered on 01/26/17 18:02; Admin Dose 1 UNIT; Start 01/23/17 at 18:00 Misc[facility] This patient dunaway... PRN PRN XX WOUND CARE; Start 01/24/17 at 07:30 Bisacodyl 10 mg 10 mg DAILY PRN [place] CONSTIPATION Last administered on 01/25/17 17:37; Admin Dose 10 MG; Start 01/25/17 at 16:30 Piperacillin Sod/ Tazobactam Sod (Zosyn 3.375gm/ 100 ml (Pmx)) 100 ml @ 200 mls /hr Q6 IVPB Last administered on 01/29/17 12:26; Admin Dose 200 MLS/HR; Start 01/26/17 at 10:00 Acetaminophen (Tylenol Liquid) 650 mg Q4H PRN NGT PAIN AND OR ELEVATED TEMP Last administered on 01/26/17 09:31; Admin Dose 650 MG; Start 01/26/17 at 09:00 Metoprolol Tartrate (Lopressor) 2.5 mg Q4H PRN IV NOTE; Start 01/26/17 at 15:00 Enoxaparin Sodium (Lovenox) 60 mg Q24H SC Last administered on 01/28/17 20:53 ; Admin Dose 60 MG; Start 01/26/17 at 19:30 Metoprolol Tartrate (Lopressor) 2.5 mg Q4 IV Last administered on 01/29/17 10: 30; Admin Dose 2.5 MG; Start 01/28/17 at 17:00 Midodrine (Proamatine) 5 mg Q8 PRN GTB BLOOD PRESSURE SUPPORT; Start 01/28/17 at 16:30 MINOO REY Jan 29, 2017 13:11
--- NOTE | 2017-01-29 16:03 | RADRPT ---
PROCEDURE: MRI Brain without contrast. CLINICAL INDICATION: Altered mental status. TECHNIQUE: An MRI of the brain was performed utilizing the following sequences: Sagittal and axial T1 weighted, axial T2 weighted, axial diffusion weighted with ADC mapping, coronal GRE, and axial F LAIR. COMPARISON: The most recent Brain MRI 01/16/2017. FINDINGS: Interval resolution of previously noted restricted diffusion with persistent T2 and FLAIR hyperinten sity involving bilateral paramedian, cerebral peduncles, periaqueductal regio, rostral midbrain, and caroline with slight interval increase in area of involvement superiorly and decrease more inferiorly. No new area of diffusion weighted abnormalities are seen to suggest the presence of acute ischemia o r recent infarct. No hypointense signal abnormalities are seen on the GRE images to suggest the pre sence of blood degradation products. There is no evidence of intracranial hemorrhage, mass effect, or midline shift. No extra-axial fluid collections are seen. The ventricles and sulci are mildly enl arged indicative of volume loss. There are mild scattered foci of T2 FLAIR hyperintensity in the periventricular, deep, and subcortic al white matter, which are nonspecific in etiology but likely reflect chronic small vessel ischemic changes. No abnormal intracranial vascular flow void is noted. The visualized paranasal sinuses demonstrate m ild scattered mucosal thickening. IMPRESSION: 1. Interval resolution of previously noted restricted diffusion with persistent T2 and FLAIR hyperi ntensity involving bilateral paramedian, cerebral peduncles, periaqueductal regio, rostral midbrain, and caroline. Differential consideration includes ischemia related to artery of [place] infarct or in ternal cerebral vein thrombosis. Other less likely differential consideration includes metabolic or neoplastic etiologies. Recommend continued short-term follow-up MRI. 2. Mild chronic small vessel ischemic changes. 3. Mild generalized cerebral volume loss. RPTAT: HH .Lashae Salmeron MD, MD Date Time Electronically viewed and signed by .Lashae Salmeron MD, MD on 01/29/2017 16:03 .N/
--- NOTE | 2017-01-29 16:08 | RADRPT ---
PROCEDURE: MRA Brain. CLINICAL INDICATION: Altered mental status, bilateral chronic infarcts. TECHNIQUE: An MRA of the brain was performed without intravenous contrast utilizing the following sequences: 3-D [id number] images through the intracranial vasculature with post processed randal l intensity projections in multiple planes. COMPARISON: Concurrent MRI of the brain. FINDINGS: The petrous, cavernous, and supraclinoid internal carotid artery segments are patent without evidenc e of significant stenosis. The proximal anterior cerebral and middle cerebral arteries are patent wi thout significant stenosis. There is moderate to marked focal decreased flow related enhancement of the of proximal P1 segment o f right posterior cerebral artery concerning for stenosis. Otherwise the intradural vertebral arteri es, basilar artery and remainder of posterior cerebral arteries are patent without evidence of signi ficant focal stenosis. No aneurysms are identified. IMPRESSION: 1. Suspect moderate to marked focal stenosis of proximal P1 segment of right posterior cerebral art lawrence. 2. Otherwise no signal stenosis in the remainder of major intracranial arteries. RPTAT: HH .Lashae Salmeron MD, Date Time Electronically viewed and signed by .Lashae Salmeron MD, on 01/29/2017 16:08 .N/
[2017-01-29] MEDS: ENOXAPARIN 60 MG/0.6 ML SYG SC SCH (19:50)
[2017-01-30] VITALS (12 sets, daily range): BP systolic 103–137; BP diastolic 54–65; PULSE 68–90; RESP 18
[2017-01-30] MEDS: METOPROLOL 5 MG INJ IV SCH ×7 (01:00→21:00)
[2017-01-30] MEDS: LEVALBUTEROL (NEB) 0.63 MG/3 ML AMP HHN SCH ×4 (02:24→19:26)
[2017-01-30] MEDS: PIPER-TAZO 3.375 GM IV (PMX) 100 ML IVPB SCH ×4 (05:36→23:12)
[2017-01-30] MEDS: INSULIN ASPART [NOVOLOG] 3 ML PEN SC SCH ×4 (05:49→23:12)
[2017-01-30] MEDS: COLLAGENASE 30 GM TUBE TOP SCH (09:08)
--- NOTE | 2017-01-30 10:27 | PN ---
Date/Time of Note Date/Time of Note DATE: 01/30/17 TIME: 10:27 Assessment/Plan VTE Prophylaxis VTE Prophylaxis Intervention: other Lines/Catheters IV Catheter Type (from [facility]): PICC Line Central line still needed: Yes Urinary Cath still in place: Yes Reason Cath still needed: skin wounds contaminated by urine Assessment/Plan Chief Complaint/Hosp Course -Mild leukocytosis with low-grade fevers secondary to possible pneumonia, continue Zosyn, follow up on final cultures monitor chest x-ray. - Bilateral thalamic infarctions, Dr. Payne, neurology consult is appreciated. Continue aspirin - Dysphagia, Dr. Garcia is is following in gastroenterology consultation. Plan for G-tube placement tomorrow. - Staph aureus bacteremia vs contamination, status post antibiotics, 2D echo is negative for vegetation. CSF is unremarkable. Dr. Abarca is following infection disease consultation. - Atrial fibrillation with rapid ventricular response, currently rate is controlled. Dr. Armenta is following and cardiology consultation. - Thrombosis of the bilateral cephalic veins. Continue Lovenox. - Acute kidney injury, Dr. Poole is following in nephrology consultation. - History of CVA - History of hyperlipidemia - Left lower extremity, status post vascular surgery. Problems: Subjective 24 Hr Interval Summary Free Text/Dictation Patient resting comfortably Exam/Review of Systems Vital Signs Vitals Vital Signs Date Time Temp Pulse Resp B/P Pulse Ox O2 Delivery O2 Flow Rate FiO2 01/30/17 08:27 68 01/30/17 08:07 97 21 01/30/17 08:05 20 01/30/17 07:39 98.0 103/56 01/28/17 20:08 2.0 01/28/17 20:08 Nasal Cannula Intake and Output 01/29/17 01/29/17 01/30/17 15:00 23:00 07:00 Intake Total 460 ml 611 ml Output Total 400 ml 400 ml Balance 60 ml 211 ml Exam Constitutional: well developed Head: atraumatic, normocephalic Neck: supple Respiratory: diminished breath sounds Cardiovascular: regular rate and rhythm Gastrointestinal: non-tender, soft Extremities: normal pulses Results Result Diagram: 01/29/17 0629 01/29/17 0629 Results 24 hrs Laboratory Tests Test 01/29/17 12:28 01/29/17 18:29 01/29/17 23:16 01/30/17 05:06 Bedside Glucose 119 124 115 110 Medications Medications Current Medications Miscellaneous Information 1 ea NOTE XX ; Start 01/17/17 at 10:00 Glucose (Glutose) 15 gm Q15M PRN PO DECREASED GLUCOSE; Start 01/17/17 at 10:00 Glucose (Glutose) 22.5 gm Q15M PRN PO DECREASED GLUCOSE; Start 01/17/17 at 10: 00 Dextrose (D50w Syringe) 25 ml Q15M PRN IV DECREASED GLUCOSE; Start 01/17/17 at 10:00 Dextrose (D50w Syringe) 50 ml Q15M PRN IV DECREASED GLUCOSE; Start 01/17/17 at 10:00 Glucagon (Glucagen) 1 mg Q15M PRN IM DECREASED GLUCOSE; Start 01/17/17 at 10:00 Glucose (Glutose) 15 gm Q15M PRN BUCCAL DECREASED GLUCOSE; Start 01/17/17 at 10 :00 Collagenase (Santyl) 1 applic DAILY TOP Last administered on 01/30/17 09:08; Admin Dose 1 APPLIC; Start 01/17/17 at 21:00 IV Flush (NS 10 ml) 10 ml PRN PRN IV IV PROTOCOL; Start 01/22/17 at 12:00 Insulin Aspart (Novolog Insulin Pen) NOVOLOG *MILD* ALGORI... Q6 SC Last administered on 01/26/17 18:02; Admin Dose 1 UNIT; Start 01/23/17 at 18:00 Miscellaneous Information (Pending Santyl Order For Wound Care) This patient dunaway... PRN PRN XX WOUND CARE; Start 01/24/17 at 07:30 Bisacodyl 10 mg 10 mg DAILY PRN [place] CONSTIPATION Last administered on 01/25/17 17:37; Admin Dose 10 MG; Start 01/25/17 at 16:30 Piperacillin Sod/ Tazobactam Sod (Zosyn 3.375gm/ 100 ml (Pmx)) 100 ml @ 200 mls /hr Q6 IVPB Last administered on 01/30/17 05:36; Admin Dose 200 MLS/HR; Start 01/26/17 at 10:00 Acetaminophen (Tylenol Liquid) 650 mg Q4H PRN NGT PAIN AND OR ELEVATED TEMP Last administered on 01/26/17 09:31; Admin Dose 650 MG; Start 01/26/17 at 09:00 Metoprolol Tartrate (Lopressor) 2.5 mg Q4H PRN IV NOTE; Start 01/26/17 at 15:00 Enoxaparin Sodium (Lovenox) 60 mg Q24H SC Last administered on 01/29/17 19:50 ; Admin Dose 60 MG; Start 01/26/17 at 19:30 Metoprolol Tartrate (Lopressor) 2.5 mg Q4 IV Last administered on 01/30/17 09: 07; Admin Dose 2.5 MG; Start 01/28/17 at 17:00 Midodrine (Proamatine) 5 mg Q8 PRN GTB BLOOD PRESSURE SUPPORT; Start 01/28/17 at 16:30 JOSE LOMAS Jan 30, 2017 10:27
--- NOTE | 2017-01-30 11:17 | CONS ---
Date/Time of Note Date/Time of Note DATE: 01/30/17 TIME: 11:15 Assessment/Plan Assessment/Plan Additional Assessment/Plan 1. AF-mainly rate controlled/Trop negative x 3 - now with pauses 3.7 sec - likely will need pacer if family agrees 2.Hypotension-now improved on midodrine - stable 3.encephalopathy/ams - multifatorial 4.coagulopathy-now decreased with coumadin held 5. Acute Renal failure-? secondary to vanc - will monitor now 6.Leukocytosis 7. Cardiomyopathy-EF 45% 8. Cephalic vein thrombosis 9. Dysphagia s/p PEG - hold dig now Consultation Date/Type/Reason Admit Date/Time Jan 16, 2017 at 15:19 Initial Consult Date 01/26/17 Type of Consultation: cardiology Referring Provider: LAWRENCE PICKERING 24 HR Interval Summary Free Text/Dictation NOw with 3.7 sec pause - hold AVN agents - will try to communicate with son if pacer is acceptable to family ROS: No fever, no chills, no nausea, no vomiting, no diarrhea/constipation No recent weight changes No chest pain, no PND, no orthopnea No dizziness, blurred vision No thirst, no heat or cold intolerance (per nurse) Exam/Review of Systems Vital Signs Vitals Vital Signs Date Time Temp Pulse Resp B/P Pulse Ox O2 Delivery O2 Flow Rate FiO2 01/30/17 08:27 68 01/30/17 08:07 97 21 01/30/17 08:05 20 01/30/17 07:39 98.0 103/56 01/28/17 20:08 2.0 01/28/17 20:08 Nasal Cannula Intake and Output 01/29/17 01/29/17 01/30/17 15:00 23:00 07:00 Intake Total 460 ml 611 ml Output Total 400 ml 400 ml Balance 60 ml 211 ml Results Result Diagram: 01/29/17 0629 01/29/17 0629 Results 24 hrs Laboratory Tests Test 01/29/17 12:28 01/29/17 18:29 01/29/17 23:16 01/30/17 05:06 Bedside Glucose 119 124 115 110 Medications Medications Current Medications Miscellaneous Information 1 ea NOTE XX ; Start 01/17/17 at 10:00 Glucose (Glutose) 15 gm Q15M PRN PO DECREASED GLUCOSE; Start 01/17/17 at 10:00 Glucose (Glutose) 22.5 gm Q15M PRN PO DECREASED GLUCOSE; Start 01/17/17 at 10: 00 Dextrose (D50w Syringe) 25 ml Q15M PRN IV DECREASED GLUCOSE; Start 01/17/17 at 10:00 Dextrose (D50w Syringe) 50 ml Q15M PRN IV DECREASED GLUCOSE; Start 01/17/17 at 10:00 Glucagon (Glucagen) 1 mg Q15M PRN IM DECREASED GLUCOSE; Start 01/17/17 at 10:00 Glucose (Glutose) 15 gm Q15M PRN BUCCAL DECREASED GLUCOSE; Start 01/17/17 at 10 :00 Collagenase (Santyl) 1 applic DAILY TOP Last administered on 01/30/17 09:08; Admin Dose 1 APPLIC; Start 01/17/17 at 21:00 IV Flush (NS 10 ml) 10 ml PRN PRN IV IV PROTOCOL; Start 01/22/17 at 12:00 Insulin Aspart (Novolog Insulin Pen) NOVOLOG *MILD* ALGORI... Q6 SC Last administered on 01/26/17 18:02; Admin Dose 1 UNIT; Start 01/23/17 at 18:00 Miscellaneous Information (Pending Santyl Order For Wound Care) This patient dunaway... PRN PRN XX WOUND CARE; Start 01/24/17 at 07:30 Bisacodyl 10 mg 10 mg DAILY PRN [place] CONSTIPATION Last administered on 01/25/17 17:37; Admin Dose 10 MG; Start 01/25/17 at 16:30 Piperacillin Sod/ Tazobactam Sod (Zosyn 3.375gm/ 100 ml (Pmx)) 100 ml @ 200 mls /hr Q6 IVPB Last administered on 01/30/17 05:36; Admin Dose 200 MLS/HR; Start 01/26/17 at 10:00 Acetaminophen (Tylenol Liquid) 650 mg Q4H PRN NGT PAIN AND OR ELEVATED TEMP Last administered on 01/26/17 09:31; Admin Dose 650 MG; Start 01/26/17 at 09:00 Metoprolol Tartrate (Lopressor) 2.5 mg Q4H PRN IV NOTE; Start 01/26/17 at 15:00 Enoxaparin Sodium (Lovenox) 60 mg Q24H SC Last administered on 01/29/17 19:50 ; Admin Dose 60 MG; Start 01/26/17 at 19:30 Metoprolol Tartrate (Lopressor) 2.5 mg Q4 IV Last administered on 01/30/17 09: 07; Admin Dose 2.5 MG; Start 01/28/17 at 17:00 Midodrine (Proamatine) 5 mg Q8 PRN GTB BLOOD PRESSURE SUPPORT; Start 01/28/17 at 16:30 Procedures Procedures General: WN/WD/NAD, AOx 0 h/o CVA HEENT: Unicetric/atraumatic/EOMI (does not follow commands) NECK: JVD elevated, no thyromegaly Lymph: no lymphadenopathy HEART: Ir Irregular with no S3, II/ systolic murmur at apex LUNGS: Coarse sounds ABD: soft, NT, ND, +BS : Intact Neuro: non focal SKIN: chronic changes EXT: trace edema YAJAIRA ALVAREZ MD Jan 30, 2017 11:17
--- NOTE | 2017-01-30 17:04 | CONS ---
Date/Time of Note Date/Time of Note DATE: 01/30/17 TIME: 16:50 Assessment/Plan Assessment/Plan Chief Complaint/Hosp Course Not verbal, eyes closed, does not open, no definite response to visual threat, pupils 2 mm, eomi on OCM, corbeals present, withdraws both feet to pain, grimaces when pain applied to left hand. A/P: bilateral thalamic CVA. Repeat MRI reading suggested arterial CVA or venous CVA, no more acute CVA changes on DWI seen. A. Fib. Will check MRV. Obtain hypercoagulab panel. Consider re-starting anticoagulation. Problems: Consultation Date/Type/Reason Admit Date/Time Jan 16, 2017 at 15:19 Initial Consult Date 01/26/17 Type of Consultation: neurology Referring Provider: LAWRENCE PICKERING 24 HR Interval Summary Free Text/Dictation no acute events. Per family, pt is more responsive, once opened eyes, tried to move left hand on command. Few sec lasting twitch in the left hand forearm seen by son, unclear if pt tried to move. No definite seizures. Exam/Review of Systems Vital Signs Vitals Vital Signs Date Time Temp Pulse Resp B/P Pulse Ox O2 Delivery O2 Flow Rate FiO2 01/30/17 16:23 84 01/30/17 15:47 98.6 18 105/54 98 01/30/17 13:24 21 01/28/17 20:08 2.0 01/28/17 20:08 Nasal Cannula Intake and Output 01/29/17 01/29/17 01/30/17 15:00 23:00 07:00 Intake Total 460 ml 611 ml Output Total 400 ml 400 ml Balance 60 ml 211 ml Results Result Diagram: 01/29/17 0629 01/29/17 0629 Results 24 hrs Laboratory Tests Test 01/29/17 18:29 01/29/17 23:16 01/30/17 05:06 01/30/17 11:50 Bedside Glucose 124 115 110 133 Medications Medications Current Medications Miscellaneous Information 1 ea NOTE XX ; Start 01/17/17 at 10:00 Glucose (Glutose) 15 gm Q15M PRN PO DECREASED GLUCOSE; Start 01/17/17 at 10:00 Glucose (Glutose) 22.5 gm Q15M PRN PO DECREASED GLUCOSE; Start 01/17/17 at 10: 00 Dextrose (D50w Syringe) 25 ml Q15M PRN IV DECREASED GLUCOSE; Start 01/17/17 at 10:00 Dextrose (D50w Syringe) 50 ml Q15M PRN IV DECREASED GLUCOSE; Start 01/17/17 at 10:00 Glucagon (Glucagen) 1 mg Q15M PRN IM DECREASED GLUCOSE; Start 01/17/17 at 10:00 Glucose (Glutose) 15 gm Q15M PRN BUCCAL DECREASED GLUCOSE; Start 01/17/17 at 10 :00 Collagenase (Santyl) 1 applic DAILY TOP Last administered on 01/30/17 09:08; Admin Dose 1 APPLIC; Start 01/17/17 at 21:00 IV Flush (NS 10 ml) 10 ml PRN PRN IV IV PROTOCOL; Start 01/22/17 at 12:00 Insulin Aspart (Novolog Insulin Pen) NOVOLOG *MILD* ALGORI... Q6 SC Last administered on 01/26/17 18:02; Admin Dose 1 UNIT; Start 01/23/17 at 18:00 Miscellaneous Information (Pending Santyl Order For Wound Care) This patient dunaway... PRN PRN XX WOUND CARE; Start 01/24/17 at 07:30 Bisacodyl 10 mg 10 mg DAILY PRN [place] CONSTIPATION Last administered on 01/25/17 17:37; Admin Dose 10 MG; Start 01/25/17 at 16:30 Piperacillin Sod/ Tazobactam Sod (Zosyn 3.375gm/ 100 ml (Pmx)) 100 ml @ 200 mls /hr Q6 IVPB Last administered on 01/30/17 12:15; Admin Dose 200 MLS/HR; Start 01/26/17 at 10:00 Acetaminophen (Tylenol Liquid) 650 mg Q4H PRN NGT PAIN AND OR ELEVATED TEMP Last administered on 01/26/17 09:31; Admin Dose 650 MG; Start 01/26/17 at 09:00 Metoprolol Tartrate (Lopressor) 2.5 mg Q4H PRN IV NOTE; Start 01/26/17 at 15:00 Enoxaparin Sodium (Lovenox) 60 mg Q24H SC Last administered on 01/29/17 19:50 ; Admin Dose 60 MG; Start 01/26/17 at 19:30 Metoprolol Tartrate (Lopressor) 2.5 mg Q4 IV Last administered on 01/30/17t 14: 03; Admin Dose 2.5 MG; Start 01/28/17 at 17:00 Midodrine (Proamatine) 5 mg Q8 PRN GTB BLOOD PRESSURE SUPPORT; Start 01/28/17 at 16:30 RHETT WALTER MD Jan 30, 2017 17:01
--- NOTE | 2017-01-30 18:09 | CONS ---
Date/Time of Note Date/Time of Note DATE: 01/30/17 TIME: 18:08 Assessment/Plan Assessment/Plan Chief Complaint/Hosp Course assessment/impression: - low grade leukocytosis, ?infectious process vs. neurological process - acute encephalopathy. CSF from 01/19/2017: WBC=3, RBC=0, glu 53, pro=61, CSF ( [place] serology negative, HSV negative, cocci CF negative, encephalitis meningitis panel could not be done due to a lack of sample), serum ([place] PCR negative, crypto antigen negative, cocci CF negative, histo CF negative). my order of crypto in CSF was cancelled and no reason given - bacteremia due to CoNS, probable contaminant. 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) - A fib - h/o DVT - h/o LLE ischemia s/p thrombolysis and subsequent open thrombectomy and fasciotomy at [facility] 09/2015 - h/o thrombus on DEBBIE per records from [facility] recommendations: - repeat CBC in AM - I recommend 5 days of empiric pip/tazo (01/26/2017-) for possible aspiration Problems: Consultation Date/Type/Reason Admit Date/Time Jan 16, 2017 at 15:19 Initial Consult Date 01/17/17 Type of Consultation: ID Referring Provider: LAWRENCE PICKERING 24 HR Interval Summary Subjective hx not possible: pt non-verbal Exam/Review of Systems Vital Signs Vitals Vital Signs Date Time Temp Pulse Resp B/P Pulse Ox O2 Delivery O2 Flow Rate FiO2 01/30/17 16:23 84 01/30/17 15:47 98.6 18 104/54 98 01/30/17 13:24 21 01/28/17 20:08 2.0 01/28/17 20:08 Nasal Cannula Intake and Output 01/29/17 01/29/17 01/30/17 15:00 23:00 07:00 Intake Total 460 ml 611 ml Output Total 400 ml 400 ml Balance 60 ml 211 ml Exam Constitutional: frail, non-verbal Psych: confusion Head: normocephalic Eyes: nl conjunctiva, nl lids ENMT: nl external ears & nose, nl nasal mucosa & septum Respiratory: wheezing Cardiovascular: nl pulses, regular rate and rhythm Gastrointestinal: non-tender, other (GT), soft Musculoskeletal: nl extremities to inspection Extremities: No edema Neurological: confused, lethargic Skin: nl turgor Results Result Diagram: 01/29/17 0629 01/29/17 0629 Results 24 hrs Laboratory Tests Test 01/29/17 18:29 01/29/17 23:16 01/30/17 05:06 01/30/17 11:50 Bedside Glucose 124 115 110 133 Test 01/30/17 17:48 Bedside Glucose 108 Medications Medications Current Medications Miscellaneous Information 1 ea NOTE XX ; Start 01/17/17 at 10:00 Glucose (Glutose) 15 gm Q15M PRN PO DECREASED GLUCOSE; Start 01/17/17 at 10:00 Glucose (Glutose) 22.5 gm Q15M PRN PO DECREASED GLUCOSE; Start 01/17/17 at 10: 00 Dextrose (D50w Syringe) 25 ml Q15M PRN IV DECREASED GLUCOSE; Start 01/17/17 at 10:00 Dextrose (D50w Syringe) 50 ml Q15M PRN IV DECREASED GLUCOSE; Start 01/17/17 at 10:00 Glucagon (Glucagen) 1 mg Q15M PRN IM DECREASED GLUCOSE; Start 01/17/17 at 10:00 Glucose (Glutose) 15 gm Q15M PRN BUCCAL DECREASED GLUCOSE; Start 01/17/17 at 10 :00 Collagenase (Santyl) 1 applic DAILY TOP Last administered on 01/30/17 09:08; Admin Dose 1 APPLIC; Start 01/17/17 at 21:00 IV Flush (NS 10 ml) 10 ml PRN PRN IV IV PROTOCOL; Start 01/22/17 at 12:00 Insulin Aspart (Novolog Insulin Pen) NOVOLOG *MILD* ALGORI... Q6 SC Last administered on 01/26/17 18:02; Admin Dose 1 UNIT; Start 01/23/17 at 18:00 Miscellaneous Information (Pending Santyl Order For Wound Care) This patient dunaway... PRN PRN XX WOUND CARE; Start 01/24/17 at 07:30 Bisacodyl 10 mg 10 mg DAILY PRN [place] CONSTIPATION Last administered on 01/25/17 17:37; Admin Dose 10 MG; Start 01/25/17 at 16:30 Piperacillin Sod/ Tazobactam Sod (Zosyn 3.375gm/ 100 ml (Pmx)) 100 ml @ 200 mls /hr Q6 IVPB Last administered on 01/30/17 18:02; Admin Dose 200 MLS/HR; Start 01/26/17 at 10:00 Acetaminophen (Tylenol Liquid) 650 mg Q4H PRN NGT PAIN AND OR ELEVATED TEMP Last administered on 01/26/17 09:31; Admin Dose 650 MG; Start 01/26/17 at 09:00 Metoprolol Tartrate (Lopressor) 2.5 mg Q4H PRN IV NOTE; Start 01/26/17 at 15:00 Enoxaparin Sodium (Lovenox) 60 mg Q24H SC Last administered on 01/29/17 19:50 ; Admin Dose 60 MG; Start 01/26/17 at 19:30 Metoprolol Tartrate (Lopressor) 2.5 mg Q4 IV Last administered on 01/30/17 14: 03; Admin Dose 2.5 MG; Start 01/28/17 at 17:00 Midodrine (Proamatine) 5 mg Q8 PRN GTB BLOOD PRESSURE SUPPORT; Start 01/28/17 at 16:30 TYE STYLES M.D. Jan 30, 2017 18:09
[2017-01-30] MEDS: ENOXAPARIN 60 MG/0.6 ML SYG SC SCH (21:17)
[2017-01-31] VITALS (16 sets, daily range): BP systolic 74–148; BP diastolic 33–79; PULSE 69–100; RESP 18
[2017-01-31] MEDS: METOPROLOL 5 MG INJ IV SCH ×5 (01:00→16:30)
[2017-01-31] MEDS: LEVALBUTEROL (NEB) 0.63 MG/3 ML AMP HHN SCH ×4 (01:03→19:29)
[2017-01-31] MEDS: INSULIN ASPART [NOVOLOG] 3 ML PEN SC SCH ×3 (06:00→17:38)
[2017-01-31] MEDS: PIPER-TAZO 3.375 GM IV (PMX) 100 ML IVPB SCH ×3 (06:28→17:35)
[2017-01-31 07:35] LABS: BASOPHIL # 0.1 10^3/ul (0.0-0.1); BASOPHILS % 1.5 % (0.0-2.0); EOSINOPHILS # 0.4 10^3/ul (0.0-0.5); EOSINOPHILS % 3.7 % (0.0-7.0); HEMATOCRIT 34.3 % (37.0-47.0); HEMOGLOBIN 10.8 g/dl (12.0-16.0); LYMPHOCYTES # 1.4 10^3/ul (0.8-2.9); LYMPHOCYTES % 14.3 % (15.0-51.0); MEAN CORPUSCULAR HEMOGLOBIN 25.8 pg (29.0-33.0); MEAN CORPUSCULAR HGB CONC 31.5 g/dl (32.0-37.0); MEAN CORPUSCULAR VOLUME 81.9 fl (82.0-101.0); MONOCYTE # 0.5 10^3/ul (0.3-0.9); MONOCYTES % 5.5 % (0.0-11.0); NEUTROPHILS % 74.6 % (39.0-77.0); PLATELET COUNT 575 10^3/UL (140-415); RED BLOOD COUNT 4.19 10^6/ul (4.20-5.40); RED CELL DISTRIBUTION WIDTH 16.5 % (11.5-14.5); WHITE BLOOD COUNT 9.4 10^3/ul (4.8-10.8)
[2017-01-31 08:01] LABS: CALCIUM 9.6 mg/dl (8.4-10.2); CREATININE 1.29 mg/dl (0.44-1.00); POTASSIUM 3.7 mmol/L (3.5-5.1)
[2017-01-31] MEDS: COLLAGENASE 30 GM TUBE TOP SCH (09:00)
--- NOTE | 2017-01-31 11:28 | CONS ---
Date/Time of Note Date/Time of Note DATE: 01/31/17 TIME: 11:26 Assessment/Plan Assessment/Plan Chief Complaint/Hosp Course assessment/impression: - possible aspiration, improved - acute encephalopathy. CSF from 01/19/2017: WBC=3, RBC=0, glu 53, pro=61, CSF ( [place] serology negative, HSV negative, cocci CF negative, encephalitis meningitis panel could not be done due to a lack of sample), serum ([place] PCR negative, crypto antigen negative, cocci CF negative, histo CF negative). my order of crypto in CSF was cancelled and no reason given - bacteremia due to CoNS, probable contaminant. 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) - A fib - h/o DVT - h/o LLE ischemia s/p thrombolysis and subsequent open thrombectomy and fasciotomy at [facility] 09/2015 - h/o thrombus on DEBBIE per records from [facility] recommendations: - complete 5 days of empiric pip/tazo (01/26/2017-) today and then monitor Pt off systemic antibiotics management d/w Pt's and son Problems: Consultation Date/Type/Reason Admit Date/Time Jan 16, 2017 at 15:19 Initial Consult Date 01/17/17 Type of Consultation: ID Referring Provider: LAWRENCE PICKERING 24 HR Interval Summary Subjective hx not possible: pt non-verbal Exam/Review of Systems Vital Signs Vitals Vital Signs Date Time Temp Pulse Resp B/P Pulse Ox O2 Delivery O2 Flow Rate FiO2 01/31/17 08:34 95 01/31/17 07:42 97.5 18 95/51 98 01/31/17 07:15 21 01/28/17 20:08 2.0 01/28/17 20:08 Nasal Cannula Intake and Output 01/30/17 01/30/17 01/31/17 15:00 23:00 07:00 Intake Total 280 ml 285 ml 280 ml Output Total 300 ml 900 ml Balance 280 ml -15 ml -620 ml Exam Constitutional: frail, non-verbal Psych: confusion Head: atraumatic, normocephalic Eyes: nl conjunctiva, nl lids ENMT: nl external ears & nose, nl nasal mucosa & septum Respiratory: diminished breath sounds Cardiovascular: nl pulses, regular rate and rhythm Gastrointestinal: non-tender, other (GT), soft Musculoskeletal: nl extremities to inspection Extremities: No edema Neurological: confused, lethargic Skin: nl turgor Results Result Diagram: 01/31/17 0611 01/31/17 0611 Results 24 hrs Laboratory Tests Test 01/30/17 11:50 01/30/17 17:48 01/30/17 23:11 01/31/17 06:11 Bedside Glucose 133 108 113 White Blood Count 9.4 Red Blood Count 4.19 L Hemoglobin 10.8 L Hematocrit 34.3 L Mean Corpuscular Volume 81.9 L Mean Corpuscular Hemoglobin 25.8 L Mean Corpuscular Hemoglobin Concent 31.5 L Red Cell Distribution Width 16.5 H Platelet Count 575 H Mean Platelet Volume 12.0 H Neutrophils % 74.6 Lymphocytes % 14.3 L Monocytes % 5.5 Eosinophils % 3.7 Basophils % 1.5 Nucleated Red Blood Cells % 0.0 Neutrophils # 7.0 Lymphocytes # 1.4 Monocytes # 0.5 Eosinophils # 0.4 Basophils # 0.1 Nucleated Red Blood Cells # 0.0 Sodium Level 146 H Potassium Level 3.7 Chloride Level 102 Carbon Dioxide Level 29 Anion Gap 19 H Blood Urea Nitrogen 24 H Creatinine 1.29 H Glucose Level 120 Calcium Level 9.6 Test 01/31/17 06:27 Bedside Glucose 112 Medications Medications Current Medications Miscellaneous Information 1 ea NOTE XX ; Start 01/17/17 at 10:00 Glucose (Glutose) 15 gm Q15M PRN PO DECREASED GLUCOSE; Start 01/17/17 at 10:00 Glucose (Glutose) 22.5 gm Q15M PRN PO DECREASED GLUCOSE; Start 01/17/17 at 10: 00 Dextrose (D50w Syringe) 25 ml Q15M PRN IV DECREASED GLUCOSE; Start 01/17/17 at 10:00 Dextrose (D50w Syringe) 50 ml Q15M PRN IV DECREASED GLUCOSE; Start 01/17/17 at 10:00 Glucagon (Glucagen) 1 mg Q15M PRN IM DECREASED GLUCOSE; Start 01/17/17 at 10:00 Glucose (Glutose) 15 gm Q15M PRN BUCCAL DECREASED GLUCOSE; Start 01/17/17 at 10 :00 Collagenase (Santyl) 1 applic DAILY TOP Last administered on 01/30/17 09:08; Admin Dose 1 APPLIC; Start 01/17/17 at 21:00 IV Flush (NS 10 ml) 10 ml PRN PRN IV IV PROTOCOL; Start 01/22/17 at 12:00 Insulin Aspart (Novolog Insulin Pen) NOVOLOG *MILD* ALGORI... Q6 SC Last administered on 01/26/17 18:02; Admin Dose 1 UNIT; Start 01/23/17 at 18:00 Miscellaneous Information (Pending Santyl Order For Wound Care) This patient dunaway... PRN PRN XX WOUND CARE; Start 01/24/17 at 07:30 Bisacodyl 10 mg 10 mg DAILY PRN [place] CONSTIPATION Last administered on 01/25/17 17:37; Admin Dose 10 MG; Start 01/25/17 at 16:30 Piperacillin Sod/ Tazobactam Sod (Zosyn 3.375gm/ 100 ml (Pmx)) 100 ml @ 200 mls /hr Q6 IVPB Last administered on 01/31/17 06:28; Admin Dose 200 MLS/HR; Start 01/26/17 at 10:00 Acetaminophen (Tylenol Liquid) 650 mg Q4H PRN NGT PAIN AND OR ELEVATED TEMP Last administered on 01/26/17 09:31; Admin Dose 650 MG; Start 01/26/17 at 09:00 Metoprolol Tartrate (Lopressor) 2.5 mg Q4H PRN IV NOTE; Start 01/26/17 at 15:00 Enoxaparin Sodium (Lovenox) 60 mg Q24H SC Last administered on 01/30/17 21:17 ; Admin Dose 60 MG; Start 01/26/17 at 19:30 Metoprolol Tartrate (Lopressor) 2.5 mg Q4 IV Last administered on 01/30/17 14: 03; Admin Dose 2.5 MG; Start 01/28/17 at 17:00 Midodrine (Proamatine) 5 mg Q8 PRN GTB BLOOD PRESSURE SUPPORT; Start 01/28/17 at 16:30 TYE STYLES M.D. Jan 31, 2017 11:28
--- NOTE | 2017-01-31 11:41 | PN ---
Date/Time of Note Date/Time of Note DATE: 01/31/17 TIME: 11:41 Assessment/Plan VTE Prophylaxis VTE Prophylaxis Intervention: other Lines/Catheters IV C[facility]ter Type (from [facility]): PICC Line Central line still needed: Yes Urinary Cath still in place: Yes Reason Cath still needed: skin wounds contaminated by urine Assessment/Plan Chief Complaint/Hosp Course -Mild leukocytosis with low-grade fevers secondary to possible pneumonia, continue Zosyn, follow up on final cultures monitor chest x-ray. - Bilateral thalamic infarctions, Dr. Payne, neurology consult is appreciated. Continue aspirin - Dysphagia, Dr. Garcia is is following in gastroenterology consultation. Plan for G-tube placement tomorrow. - Staph aureus bacteremia vs contamination, status post antibiotics, 2D echo is negative for vegetation. CSF is unremarkable. Dr. Abarca is following infection disease consultation. - Atrial fibrillation with rapid ventricular response, currently rate is controlled. Dr. Armenta is following and cardiology consultation. - Thrombosis of the bilateral cephalic veins. Continue Lovenox. - Acute kidney injury, Dr. Poole is following in nephrology consultation. - History of CVA - History of hyperlipidemia - Left lower extremity, status post vascular surgery. Problems: Subjective 24 Hr Interval Summary Free Text/Dictation Patient is less awake and responsive today Exam/Review of Systems Vital Signs Vitals Vital Signs Date Time Temp Pulse Resp B/P Pulse Ox O2 Delivery O2 Flow Rate FiO2 01/31/17 08:34 95 01/31/17 07:42 97.5 18 95/51 98 01/31/17 07:15 21 01/28/17 20:08 2.0 01/28/17 20:08 Nasal Cannula Intake and Output 01/30/17 01/30/17 01/31/17 15:00 23:00 07:00 Intake Total 280 ml 285 ml 280 ml Output Total 300 ml 900 ml Balance 280 ml -15 ml -620 ml Exam Constitutional: well developed Head: atraumatic, normocephalic Neck: supple Respiratory: diminished breath sounds Cardiovascular: regular rate and rhythm Gastrointestinal: non-tender, soft Extremities: normal pulses Results Result Diagram: 01/31/17 0611 01/31/17 0611 Results 24 hrs Laboratory Tests Test 01/30/17 11:50 01/30/17 17:48 01/30/17 23:11 01/31/17 06:11 Bedside Glucose 133 108 113 White Blood Count 9.4 Red Blood Count 4.19 L Hemoglobin 10.8 L Hematocrit 34.3 L Mean Corpuscular Volume 81.9 L Mean Corpuscular Hemoglobin 25.8 L Mean Corpuscular Hemoglobin Concent 31.5 L Red Cell Distribution Width 16.5 H Platelet Count 575 H Mean Platelet Volume 12.0 H Neutrophils % 74.6 Lymphocytes % 14.3 L Monocytes % 5.5 Eosinophils % 3.7 Basophils % 1.5 Nucleated Red Blood Cells % 0.0 Neutrophils # 7.0 Lymphocytes # 1.4 Monocytes # 0.5 Eosinophils # 0.4 Basophils # 0.1 Nucleated Red Blood Cells # 0.0 Sodium Level 146 H Potassium Level 3.7 Chloride Level 102 Carbon Dioxide Level 29 Anion Gap 19 H Blood Urea Nitrogen 24 H Creatinine 1.29 H Glucose Level 120 Calcium Level 9.6 Test 01/31/17 06:27 Bedside Glucose 112 Medications Medications Current Medications Miscellaneous Information 1 ea NOTE XX ; Start 01/17/17 at 10:00 Glucose (Glutose) 15 gm Q15M PRN PO DECREASED GLUCOSE; Start 01/17/17 at 10:00 Glucose (Glutose) 22.5 gm Q15M PRN PO DECREASED GLUCOSE; Start 01/17/17 at 10: 00 Dextrose (D50w Syringe) 25 ml Q15M PRN IV DECREASED GLUCOSE; Start 01/17/17 at 10:00 Dextrose (D50w Syringe) 50 ml Q15M PRN IV DECREASED GLUCOSE; Start 01/17/17 at 10:00 Glucagon (Glucagen) 1 mg Q15M PRN IM DECREASED GLUCOSE; Start 01/17/17 at 10:00 Glucose (Glutose) 15 gm Q15M PRN BUCCAL DECREASED GLUCOSE; Start 01/17/17 at 10 :00 Collagenase (Santyl) 1 applic DAILY TOP Last administered on 01/30/17 09:08; Admin Dose 1 APPLIC; Start 01/17/17 at 21:00 IV Flush (NS 10 ml) 10 ml PRN PRN IV IV PROTOCOL; Start 01/22/17 at 12:00 Insulin Aspart (Novolog Insulin Pen) NOVOLOG *MILD* ALGORI... Q6 SC Last administered on 01/26/17 18:02; Admin Dose 1 UNIT; Start 01/23/17 at 18:00 Miscellaneous Information (Pending Santyl Order For Wound Care) This patient dunaway... PRN PRN XX WOUND CARE; Start 01/24/17 at 07:30 Bisacodyl 10 mg 10 mg DAILY PRN [place] CONSTIPATION Last administered on 01/25/17 17:37; Admin Dose 10 MG; Start 01/25/17 at 16:30 Piperacillin Sod/ Tazobactam Sod (Zosyn 3.375gm/ 100 ml (Pmx)) 100 ml @ 200 mls /hr Q6 IVPB Last administered on 01/31/17 06:28; Admin Dose 200 MLS/HR; Start 01/26/17 at 10:00; Stop 01/31/17 at 23:59 Acetaminophen (Tylenol Liquid) 650 mg Q4H PRN NGT PAIN AND OR ELEVATED TEMP Last administered on 01/26/17 09:31; Admin Dose 650 MG; Start 01/26/17 at 09:00 Metoprolol Tartrate (Lopressor) 2.5 mg Q4H PRN IV NOTE; Start 01/26/17 at 15:00 Enoxaparin Sodium (Lovenox) 60 mg Q24H SC Last administered on 01/30/17 21:17 ; Admin Dose 60 MG; Start 01/26/17 at 19:30 Metoprolol Tartrate (Lopressor) 2.5 mg Q4 IV Last administered on 01/30/17 14: 03; Admin Dose 2.5 MG; Start 01/28/17 at 17:00 Midodrine (Proamatine) 5 mg Q8 PRN GTB BLOOD PRESSURE SUPPORT; Start 01/28/17 at 16:30 JOSE LOMAS Jan 31, 2017 11:41
[2017-01-31] MEDS: ACETAMINOPHEN 650MG/20.3ML CUP NGT PRN (14:35)
--- NOTE | 2017-01-31 15:04 | RADRPT ---
PROCEDURE: MR venogram of a cerebral dural venous sinuses CLINICAL INDICATION: Neurologic deficit TECHNIQUE: Two-dimensional [id number] images of the cerebral dural venous sinuses are obtained . 3-D multiplanar maximum intensity projection images were provided for interpretation. COMPARISON: None FINDINGS: The superior sagittal sinus is unremarkable. The torcula is within normal limits. The straight sin us is within normal limits. The vein of Jon, basal vein of Gianfranco, internal cerebral veins are unremarkable. The right transverse sinus and sigmoid sinus are dominant. The bilateral transverse and sigmoid sinuses are otherwise unremarkable in appearance. No filling defect is seen. No hemody namically significant stenosis or occlusion is seen. IMPRESSION: No filling defect or hemodynamically significant stenosis in the cerebral dural venous sinuses. RPTAT: HPNM Physician Lj Date Time Electronically viewed and signed by Physician Lj on 01/31/2017 15:04 /
[2017-01-31] MEDS: MIDODRINE 5 MG TAB GTB PRN (15:36)
--- NOTE | 2017-01-31 16:45 | CONS ---
Date/Time of Note Date/Time of Note DATE: 01/31/17 TIME: 16:43 Assessment/Plan Assessment/Plan Additional Assessment/Plan 1. AF-mainly rate controlled/Trop negative x 3 - now with pauses 3.7 sec - I spoke with family - agreed to pacer - aware of risk (mostly with anesthesia induction) - will try to facilitate for early next week. 2.Hypotension-now improved on midodrine - stable - Rx as needed 3.encephalopathy/ams - multifatorial 4.coagulopathy-now decreased with coumadin held - on lovenox 5. Acute Renal failure-? secondary to vanc - will monitor now 6.Leukocytosis 7. Cardiomyopathy-EF 45% 8. Cephalic vein thrombosis 9. Dysphagia s/p PEG - hold dig now Consultation Date/Type/Reason Admit Date/Time Jan 16, 2017 at 15:19 Initial Consult Date 01/26/17 Type of Consultation: ID Referring Provider: LAWRENCE PICKERING 24 HR Interval Summary Free Text/Dictation I spoke with family - agreed to pacer - aware of risk (mostly with anesthesia induction) - will try to facilitate for early next week. ROS: No fever, no chills, no nausea, no vomiting, no diarrhea/constipation No recent weight changes No chest pain, no PND, no orthopnea No dizziness, blurred vision No thirst, no heat or cold intolerance (per nurse) Exam/Review of Systems Vital Signs Vitals Vital Signs Date Time Temp Pulse Resp B/P Pulse Ox O2 Delivery O2 Flow Rate FiO2 01/31/17 16:29 78 110/33 01/31/17 16:17 97.0 18 98 01/31/17 13:10 21 01/28/17 20:08 2.0 01/28/17 20:08 Nasal Cannula Intake and Output 01/30/17 01/30/17 01/31/17 15:00 23:00 07:00 Intake Total 280 ml 285 ml 280 ml Output Total 300 ml 900 ml Balance 280 ml -15 ml -620 ml Exam General: WN/WD/NAD, AOx 0 HEENT: Unicetric/atraumatic/EOMI (does not follow commands) NECK: JVD elevated, no thyromegaly Lymph: no lymphadenopathy HEART: Ir Irregular with no S3, II/ systolic murmur at apex LUNGS: Coarse sounds ABD: soft, NT, ND, +BS : Intact Neuro: non focal SKIN: chronic changes EXT: trace edema Results Result Diagram: 01/31/17 0611 01/31/17 0611 Results 24 hrs Laboratory Tests Test 01/30/17 17:48 01/30/17 23:11 01/31/17 06:11 01/31/17 06:27 Bedside Glucose 108 113 112 White Blood Count 9.4 Red Blood Count 4.19 L Hemoglobin 10.8 L Hematocrit 34.3 L Mean Corpuscular Volume 81.9 L Mean Corpuscular Hemoglobin 25.8 L Mean Corpuscular Hemoglobin Concent 31.5 L Red Cell Distribution Width 16.5 H Platelet Count 575 H Mean Platelet Volume 12.0 H Neutrophils % 74.6 Lymphocytes % 14.3 L Monocytes % 5.5 Eosinophils % 3.7 Basophils % 1.5 Nucleated Red Blood Cells % 0.0 Neutrophils # 7.0 Lymphocytes # 1.4 Monocytes # 0.5 Eosinophils # 0.4 Basophils # 0.1 Nucleated Red Blood Cells # 0.0 Sodium Level 146 H Potassium Level 3.7 Chloride Level 102 Carbon Dioxide Level 29 Anion Gap 19 H Blood Urea Nitrogen 24 H Creatinine 1.29 H Glucose Level 120 Calcium Level 9.6 Test 01/31/17 11:51 Bedside Glucose 139 Medications Medications Current Medications Miscellaneous Information 1 ea NOTE XX ; Start 01/17/17 at 10:00 Glucose (Glutose) 15 gm Q15M PRN PO DECREASED GLUCOSE; Start 01/17/17 at 10:00 Glucose (Glutose) 22.5 gm Q15M PRN PO DECREASED GLUCOSE; Start 01/17/17 at 10: 00 Dextrose (D50w Syringe) 25 ml Q15M PRN IV DECREASED GLUCOSE; Start 01/17/17 at 10:00 Dextrose (D50w Syringe) 50 ml Q15M PRN IV DECREASED GLUCOSE; Start 01/17/17 at 10:00 Glucagon (Glucagen) 1 mg Q15M PRN IM DECREASED GLUCOSE; Start 01/17/17 at 10:00 Glucose (Glutose) 15 gm Q15M PRN BUCCAL DECREASED GLUCOSE; Start 01/17/17 at 10 :00 Collagenase (Santyl) 1 applic DAILY TOP Last administered on 01/30/17t 09:08; Admin Dose 1 APPLIC; Start 01/17/17 at 21:00 IV Flush (NS 10 ml) 10 ml PRN PRN IV IV PROTOCOL; Start 01/22/17 at 12:00 Insulin Aspart (Novolog Insulin Pen) NOVOLOG *MILD* ALGORI... Q6 SC Last administered on 01/26/17 18:02; Admin Dose 1 UNIT; Start 01/23/17 at 18:00 Miscellaneous Information (Pending Santyl Order For Wound Care) This patient dunaway... PRN PRN XX WOUND CARE; Start 01/24/17 at 07:30 Bisacodyl 10 mg 10 mg DAILY PRN [place] CONSTIPATION Last administered on 01/25/17 17:37; Admin Dose 10 MG; Start 01/25/17 at 16:30 Piperacillin Sod/ Tazobactam Sod (Zosyn 3.375gm/ 100 ml (Pmx)) 100 ml @ 200 mls /hr Q6 IVPB Last administered on 01/31/17 13:14; Admin Dose 200 MLS/HR; Start 01/26/17 at 10:00; Stop 01/31/17 at 23:59 Acetaminophen (Tylenol Liquid) 650 mg Q4H PRN NGT PAIN AND OR ELEVATED TEMP Last administered on 01/31/17 14:35; Admin Dose 650 MG; Start 01/26/17 at 09:00 Metoprolol Tartrate (Lopressor) 2.5 mg Q4H PRN IV NOTE; Start 01/26/17 at 15:00 Enoxaparin Sodium (Lovenox) 60 mg Q24H SC Last administered on 01/30/17 21:17 ; Admin Dose 60 MG; Start 01/26/17 at 19:30 Metoprolol Tartrate (Lopressor) 2.5 mg Q4 IV Last administered on 01/30/17 14: 03; Admin Dose 2.5 MG; Start 01/28/17 at 17:00 Midodrine (Proamatine) 5 mg Q8 PRN GTB BLOOD PRESSURE SUPPORT Last administered on 01/31/17 15:36; Admin Dose 5 MG; Start 01/28/17 at 16:30 YAJAIRA ALVAREZ MD Jan 31, 2017 16:45
[2017-01-31] MEDS ORDERED: SOD CHLORIDE 0.9% 1,000 ML IV ONE (17:00)
[2017-01-31] MEDS: BISACODYL 10 MG SUPP PR PRN (17:34)
[2017-01-31] MEDS: ENOXAPARIN 60 MG/0.6 ML SYG SC SCH (18:54)
--- NOTE | 2017-01-31 19:11 | CONS ---
Date/Time of Note Date/Time of Note DATE: 01/31/17 TIME: 19:11 Assessment/Plan Assessment/Plan Additional Assessment/Plan (1) Anemia Comment: Hct stable at 39% (2) MARIELA (acute kidney injury) Status: Acute Comment: Ac renal failure improved though pt has CKD3 No further need for IV fluids (3) Altered level of consciousness Status: Acute further plans per Neuro Kepp Renal Function stable Cont current Rx and plan Consultation Date/Type/Reason Admit Date/Time Jan 16, 2017 at 15:19 Initial Consult Date 01/17/17 Type of Consultation: Renal Referring Provider: LAWRENCE PICKERING 24 HR Interval Summary Free Text/Dictation No new complaints Exam/Review of Systems Vital Signs Vitals Vital Signs Date Time Temp Pulse Resp B/P Pulse Ox O2 Delivery O2 Flow Rate FiO2 01/31/17 18:13 94 18 100/65 01/31/17 16:17 97.0 98 01/31/17 13:10 21 01/28/17 20:08 2.0 01/28/17 20:08 Nasal Cannula Intake and Output 01/30/17 01/30/17 01/31/17 15:00 23:00 07:00 Intake Total 280 ml 285 ml 280 ml Output Total 300 ml 900 ml Balance 280 ml -15 ml -620 ml Exam Constitutional: No distress ENMT: mucosa pink and moist Neck: No jvd Respiratory: No labored breathing Cardiovascular: edema Gastrointestinal: soft Neurological: No lethargic Results Result Diagram: 01/31/17 0611 01/31/17 0611 Results 24 hrs Laboratory Tests Test 01/30/17 23:11 01/31/17 06:11 01/31/17 06:27 01/31/17 11:51 Bedside Glucose 113 112 139 White Blood Count 9.4 Red Blood Count 4.19 L Hemoglobin 10.8 L Hematocrit 34.3 L Mean Corpuscular Volume 81.9 L Mean Corpuscular Hemoglobin 25.8 L Mean Corpuscular Hemoglobin Concent 31.5 L Red Cell Distribution Width 16.5 H Platelet Count 575 H Mean Platelet Volume 12.0 H Neutrophils % 74.6 Lymphocytes % 14.3 L Monocytes % 5.5 Eosinophils % 3.7 Basophils % 1.5 Nucleated Red Blood Cells % 0.0 Neutrophils # 7.0 Lymphocytes # 1.4 Monocytes # 0.5 Eosinophils # 0.4 Basophils # 0.1 Nucleated Red Blood Cells # 0.0 Sodium Level 146 H Potassium Level 3.7 Chloride Level 102 Carbon Dioxide Level 29 Anion Gap 19 H Blood Urea Nitrogen 24 H Creatinine 1.29 H Glucose Level 120 Calcium Level 9.6 Test 01/31/17 17:37 Bedside Glucose 111 Medications Medications Current Medications Miscellaneous Information 1 ea NOTE XX ; Start 01/17/17 at 10:00 Glucose (Glutose) 15 gm Q15M PRN PO DECREASED GLUCOSE; Start 01/17/17 at 10:00 Glucose (Glutose) 22.5 gm Q15M PRN PO DECREASED GLUCOSE; Start 01/17/17 at 10: 00 Dextrose (D50w Syringe) 25 ml Q15M PRN IV DECREASED GLUCOSE; Start 01/17/17 at 10:00 Dextrose (D50w Syringe) 50 ml Q15M PRN IV DECREASED GLUCOSE; Start 01/17/17 at 10:00 Glucagon (Glucagen) 1 mg Q15M PRN IM DECREASED GLUCOSE; Start 01/17/17 at 10:00 Glucose (Glutose) 15 gm Q15M PRN BUCCAL DECREASED GLUCOSE; Start 01/17/17 at 10 :00 Collagenase (Santyl) 1 applic DAILY TOP Last administered on 01/30/17 09:08; Admin Dose 1 APPLIC; Start 01/17/17 at 21:00 IV Flush (NS 10 ml) 10 ml PRN PRN IV IV PROTOCOL; Start 01/22/17 at 12:00 Insulin Aspart (Novolog Insulin Pen) NOVOLOG *MILD* ALGORI... Q6 SC Last administered on 01/26/17 18:02; Admin Dose 1 UNIT; Start 01/23/17 at 18:00 Miscellaneous Information (Pending Santyl Order For Wound Care) This patient dunaway... PRN PRN XX WOUND CARE; Start 01/24/17 at 07:30 Bisacodyl 10 mg 10 mg DAILY PRN [place] CONSTIPATION Last administered on 01/31/17 17:34; Admin Dose 10 MG; Start 01/25/17 at 16:30 Piperacillin Sod/ Tazobactam Sod (Zosyn 3.375gm/ 100 ml (Pmx)) 100 ml @ 200 mls /hr Q6 IVPB Last administered on 01/31/17 17:35; Admin Dose 200 MLS/HR; Start 01/26/17 at 10:00; Stop 01/31/17 at 23:59 Acetaminophen (Tylenol Liquid) 650 mg Q4H PRN NGT PAIN AND OR ELEVATED TEMP Last administered on 01/31/17 14:35; Admin Dose 650 MG; Start 01/26/17 at 09:00 Metoprolol Tartrate (Lopressor) 2.5 mg Q4H PRN IV NOTE; Start 01/26/17 at 15:00 Enoxaparin Sodium (Lovenox) 60 mg Q24H SC Last administered on 01/31/17 18:54 ; Admin Dose 60 MG; Start 01/26/17 at 19:30 Midodrine (Proamatine) 5 mg Q8 PRN GTB BLOOD PRESSURE SUPPORT Last administered on 01/31/17 15:36; Admin Dose 5 MG; Start 01/28/17 at 16:30 MC SHARPE MD Jan 31, 2017 19:11
[2017-02-01] VITALS (12 sets, daily range): BP systolic 94–112; BP diastolic 44–57; PULSE 80–130; RESP 17–19
[2017-02-01] MEDS: LEVALBUTEROL (NEB) 0.63 MG/3 ML AMP HHN SCH ×4 (01:40→19:21)
[2017-02-01] MEDS: INSULIN ASPART [NOVOLOG] 3 ML PEN SC SCH ×5 (05:40→23:59)
[2017-02-01] MEDS: COLLAGENASE 30 GM TUBE TOP SCH (09:21)
--- NOTE | 2017-02-01 10:14 | PN ---
DATE: ADDENDUM TO PROGRESS NOTE: I met with several of the patient's family members, including 2 children and [id number]. The patient has remained essentially nonverbal and has significant weakness in all extremities. The patient's eyes are closed, and she is not following any commands. Poor prognosis for recovery is was explained to them. I again explained the findings of the MRI of the brain. Family is requesting another MRI of the brain. I also discussed G-tube placement, since the patient is not safe to take p.o. and has been on NGT feeding. They have agreed for G- tube placement. They also requested a second opinion from a neurologist, which will be arranged. Dictated By: Kana Valdovinos MD /ange/israel /Document#: [id number]
--- NOTE | 2017-02-01 11:16 | CONS ---
Date/Time of Note Date/Time of Note DATE: 02/01/17 TIME: 11:14 Assessment/Plan Assessment/Plan Chief Complaint/Hosp Course assessment/impression: - possible aspiration, improved - acute encephalopathy. CSF from 01/19/2017: WBC=3, RBC=0, glu 53, pro=61, CSF ( [place] serology negative, HSV negative, cocci CF negative, encephalitis meningitis panel could not be done due to a lack of sample), serum ([place] PCR negative, crypto antigen negative, cocci CF negative, histo CF negative). my order of crypto in CSF was cancelled and no reason given - bacteremia due to CoNS, probable contaminant. 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 Pt's s/p pip/tazo (01/26/2017- 01/31/2017) management d/w Pt's daughter Problems: Consultation Date/Type/Reason Admit Date/Time Jan 16, 2017 at 15:19 Initial Consult Date 01/17/17 Type of Consultation: ID Referring Provider: LAWRENCE PICKERING 24 HR Interval Summary Subjective hx not possible: pt non-verbal Exam/Review of Systems Vital Signs Vitals Vital Signs Date Time Temp Pulse Resp B/P Pulse Ox O2 Delivery O2 Flow Rate FiO2 02/01/17 08:14 88 02/01/17 07:49 96 21 02/01/17 07:48 20 02/01/17 07:17 98.0 112/48 01/28/17 20:08 2.0 01/28/17 20:08 Nasal Cannula Intake and Output 01/31/17 01/31/17 02/01/17 15:00 23:00 07:00 Intake Total 1540 ml 700 ml Output Total 800 ml 1000 ml Balance 740 ml -300 ml Exam Constitutional: frail, non-verbal Psych: confusion Head: atraumatic, normocephalic Eyes: nl conjunctiva, nl lids, other (pupils are sluggish to light) ENMT: nl external ears & nose Neck: other (could not eval) Respiratory: wheezing (upper airway only) Cardiovascular: nl pulses, regular rate and rhythm Gastrointestinal: non-tender, other (GT), soft Musculoskeletal: nl extremities to inspection Extremities: normal pulses Neurological: confused, lethargic Skin: nl turgor Results Result Diagram: 01/31/17 0611 01/31/17 0611 Results 24 hrs Laboratory Tests Test 01/31/17 11:51 01/31/17 17:37 01/31/17 23:09 02/01/17 05:39 Bedside Glucose 139 111 113 132 Medications Medications Current Medications Miscellaneous Information 1 ea NOTE XX ; Start 01/17/17 at 10:00 Glucose (Glutose) 15 gm Q15M PRN PO DECREASED GLUCOSE; Start 01/17/17 at 10:00 Glucose (Glutose) 22.5 gm Q15M PRN PO DECREASED GLUCOSE; Start 01/17/17 at 10: 00 Dextrose (D50w Syringe) 25 ml Q15M PRN IV DECREASED GLUCOSE; Start 01/17/17 at 10:00 Dextrose (D50w Syringe) 50 ml Q15M PRN IV DECREASED GLUCOSE; Start 01/17/17 at 10:00 Glucagon (Glucagen) 1 mg Q15M PRN IM DECREASED GLUCOSE; Start 01/17/17 at 10:00 Glucose (Glutose) 15 gm Q15M PRN BUCCAL DECREASED GLUCOSE; Start 01/17/17 at 10 :00 Collagenase (Santyl) 1 applic DAILY TOP Last administered on 02/01/17 09:21; Admin Dose 1 APPLIC; Start 01/17/17 at 21:00 IV Flush (NS 10 ml) 10 ml PRN PRN IV IV PROTOCOL; Start 01/22/17 at 12:00 Insulin Aspart (Novolog Insulin Pen) NOVOLOG *MILD* ALGORI... Q6 SC Last administered on 01/26/17 18:02; Admin Dose 1 UNIT; Start 01/23/17 at 18:00 Miscellaneous Information (Pending Santyl Order For Wound Care) This patient dunaway... PRN PRN XX WOUND CARE; Start 01/24/17 at 07:30 Bisacodyl (Dulcolax Supp) 10 mg DAILY PRN [place] CONSTIPATION Last administered on 01/31/17 17:34; Admin Dose 10 MG; Start 01/25/17 at 16:30 Acetaminophen (Tylenol Liquid) 650 mg Q4H PRN NGT PAIN AND OR ELEVATED TEMP Last administered on 01/31/17 14:35; Admin Dose 650 MG; Start 01/26/17 at 09:00 Metoprolol Tartrate (Lopressor) 2.5 mg Q4H PRN IV NOTE; Start 01/26/17 at 15:00 Enoxaparin Sodium (Lovenox) 60 mg Q24H SC Last administered on 01/31/17 18:54 ; Admin Dose 60 MG; Start 01/26/17 at 19:30 Midodrine (Proamatine) 5 mg Q8 PRN GTB BLOOD PRESSURE SUPPORT Last administered on 01/31/17 15:36; Admin Dose 5 MG; Start 01/28/17 at 16:30 TYE STYLES M.D. Feb 01, 2017 11:16
--- NOTE | 2017-02-01 11:17 | CONS ---
Date/Time of Note Date/Time of Note DATE: 02/01/17 TIME: 11:14 Assessment/Plan Assessment/Plan Chief Complaint/Hosp Course IMP: 1. AF-mainly rate controlled/Trop negative x 3. Had pause x 3.7 seconds 01/30 on standing IVP BB 2.Hypotension-now improved on midodrine 3.encephalopathy/ams 4.coagulopathy-now decreased with coumadin held 5. Acute Renal failure-? secondary to vanc 6.Leukocytosis 7. Cardiomyopathy-EF 45% 8. Cephalic vein thrombosis 9. Dysphagia s/p PEG Recc: -Tele -serial ecg's -Lovenox -Continue keppra/abx's/acyclovir -Follow MS closely with ongoing neuro eval -IVP BB for rate control PRN and follow for recurrent pause -check digoxin level -PRN midodrine for low BP -POssible need for PPM will follow Problems: Consultation Date/Type/Reason Admit Date/Time Jan 16, 2017 at 15:19 Initial Consult Date 01/17/17 Type of Consultation: cardiology Reason for Consultation af Referring Provider: LAWRENCE PICKERING Exam/Review of Systems Vital Signs Vitals Vital Signs Date Time Temp Pulse Resp B/P Pulse Ox O2 Delivery O2 Flow Rate FiO2 02/01/17 08:14 88 02/01/17 07:49 96 21 02/01/17 07:48 20 02/01/17 07:17 98.0 112/48 01/28/17 20:08 2.0 01/28/17 20:08 Nasal Cannula Intake and Output 01/31/17 01/31/17 02/01/17 15:00 23:00 07:00 Intake Total 1540 ml 700 ml Output Total 800 ml 1000 ml Balance 740 ml -300 ml Exam Review of Systems: CONSTITUTIONAL: No fevers, chills. PULMONARY: No sob CARDIOVASCULAR: No chest pain/palpitations GASTROINTESTINAL: No nausea/vomiting. GENITOURINARY: No hematuria/dysuria. MUSCULOSKELETAL: No myagias/arthalgias. PSYCHIATRIC: The patient denies depression. NEUROLOGIC: encephalopathy Constitutional: other (encephalopathic) Psych: no complaints ENMT: mucosa pink and moist Neck: jvd (8-9 cm water), supple Respiratory: diminished breath sounds (at bases/B) Cardiovascular: irregular rhythm Gastrointestinal: soft Musculoskeletal: muscle tone (normal) Extremities: edema (trace) Neurological: unresponsive Results Result Diagram: 01/31/17 0611 01/31/17 0611 Results 24 hrs Laboratory Tests Test 01/31/17 11:51 01/31/17 17:37 01/31/17 23:09 02/01/17 05:39 Bedside Glucose 139 111 113 132 Medications Medications Current Medications Miscellaneous Information 1 ea NOTE XX ; Start 01/17/17 at 10:00 Glucose (Glutose) 15 gm Q15M PRN PO DECREASED GLUCOSE; Start 01/17/17 at 10:00 Glucose (Glutose) 22.5 gm Q15M PRN PO DECREASED GLUCOSE; Start 01/17/17 at 10: 00 Dextrose (D50w Syringe) 25 ml Q15M PRN IV DECREASED GLUCOSE; Start 01/17/17 at 10:00 Dextrose (D50w Syringe) 50 ml Q15M PRN IV DECREASED GLUCOSE; Start 01/17/17 at 10:00 Glucagon (Glucagen) 1 mg Q15M PRN IM DECREASED GLUCOSE; Start 01/17/17 at 10:00 Glucose (Glutose) 15 gm Q15M PRN BUCCAL DECREASED GLUCOSE; Start 01/17/17 at 10 :00 Collagenase (Santyl) 1 applic DAILY TOP Last administered on 02/01/17 09:21; Admin Dose 1 APPLIC; Start 01/17/17 at 21:00 IV Flush (NS 10 ml) 10 ml PRN PRN IV IV PROTOCOL; Start 01/22/17 at 12:00 Insulin Aspart (Novolog Insulin Pen) NOVOLOG *MILD* ALGORI... Q6 SC Last administered on 01/26/17 18:02; Admin Dose 1 UNIT; Start 01/23/17 at 18:00 Miscellaneous Information (Pending Santyl Order For Wound Care) This patient dunaway... PRN PRN XX WOUND CARE; Start 01/24/17 at 07:30 Bisacodyl (Dulcolax Supp) 10 mg DAILY PRN [place] CONSTIPATION Last administered on 01/31/17 17:34; Admin Dose 10 MG; Start 01/25/17 at 16:30 Acetaminophen (Tylenol Liquid) 650 mg Q4H PRN NGT PAIN AND OR ELEVATED TEMP Last administered on 01/31/17 14:35; Admin Dose 650 MG; Start 01/26/17 at 09:00 Metoprolol Tartrate (Lopressor) 2.5 mg Q4H PRN IV NOTE; Start 01/26/17 at 15:00 Enoxaparin Sodium (Lovenox) 60 mg Q24H SC Last administered on 01/31/17 18:54 ; Admin Dose 60 MG; Start 01/26/17 at 19:30 Midodrine (Proamatine) 5 mg Q8 PRN GTB BLOOD PRESSURE SUPPORT Last administered on 01/31/17 15:36; Admin Dose 5 MG; Start 01/28/17 at 16:30 MINOO REY Feb 01, 2017 11:17
[2017-02-01] MEDS ORDERED: CEFAZOLIN 1 GM/50 ML (PMX) 50 ML IVPB ONE (11:30)
--- NOTE | 2017-02-01 12:55 | CONS ---
Date/Time of Note Date/Time of Note DATE: 02/01/17 TIME: 12:55 Assessment/Plan Assessment/Plan Additional Assessment/Plan 1) Anemia Comment: Hct stable at 39% (2) MARIELA (acute kidney injury) Status: Acute Comment: Ac renal failure improved though pt has CKD3 No further need for IV fluids (3) Altered level of consciousness Status: Acute further plans per Neuro Jeevanpp Renal Function stable Cont current Rx and plan Consultation Date/Type/Reason Admit Date/Time Jan 16, 2017 at 15:19 Initial Consult Date 01/17/17 Type of Consultation: Renal Referring Provider: LAWRENCE PICKERING 24 HR Interval Summary Free Text/Dictation No new events reported Exam/Review of Systems Vital Signs Vitals Vital Signs Date Time Temp Pulse Resp B/P Pulse Ox O2 Delivery O2 Flow Rate FiO2 02/01/17 12:27 98.6 85 17 102/51 100 02/01/17 07:49 21 01/28/17 20:08 2.0 01/28/17 20:08 Nasal Cannula Intake and Output 01/31/17 01/31/17 02/01/17 15:00 23:00 07:00 Intake Total 1540 ml 700 ml Output Total 800 ml 1000 ml Balance 740 ml -300 ml Exam Constitutional: No distress ENMT: mucosa pink and moist Neck: No jvd Respiratory: No diminished breath sounds, No labored breathing Cardiovascular: regular rate and rhythm, No edema Gastrointestinal: non-tender, soft Neurological: lethargic Skin: No diaphoresis Results Result Diagram: 01/31/17 0611 01/31/17 0611 Results 24 hrs Laboratory Tests Test 01/31/17 17:37 01/31/17 23:09 02/01/17 05:39 02/01/17 12:27 Bedside Glucose 111 113 132 101 Medications Medications Current Medications Miscellaneous Information 1 ea NOTE XX ; Start 01/17/17 at 10:00 Glucose (Glutose) 15 gm Q15M PRN PO DECREASED GLUCOSE; Start 01/17/17 at 10:00 Glucose (Glutose) 22.5 gm Q15M PRN PO DECREASED GLUCOSE; Start 01/17/17 at 10: 00 Dextrose (D50w Syringe) 25 ml Q15M PRN IV DECREASED GLUCOSE; Start 01/17/17 at 10:00 Dextrose (D50w Syringe) 50 ml Q15M PRN IV DECREASED GLUCOSE; Start 01/17/17 at 10:00 Glucagon (Glucagen) 1 mg Q15M PRN IM DECREASED GLUCOSE; Start 01/17/17 at 10:00 Glucose (Glutose) 15 gm Q15M PRN BUCCAL DECREASED GLUCOSE; Start 01/17/17 at 10 :00 Collagenase (Santyl) 1 applic DAILY TOP Last administered on 02/01/17 09:21; Admin Dose 1 APPLIC; Start 01/17/17 at 21:00 IV Flush (NS 10 ml) 10 ml PRN PRN IV IV PROTOCOL; Start 01/22/17 at 12:00 Insulin Aspart (Novolog Insulin Pen) NOVOLOG *MILD* ALGORI... Q6 SC Last administered on 01/26/17 18:02; Admin Dose 1 UNIT; Start 01/23/17 at 18:00 Miscellaneous Information (Pending Santyl Order For Wound Care) This patient dunaway... PRN PRN XX WOUND CARE; Start 01/24/17 at 07:30 Bisacodyl (Dulcolax Supp) 10 mg DAILY PRN [place] CONSTIPATION Last administered on 01/31/17 17:34; Admin Dose 10 MG; Start 01/25/17 at 16:30 Acetaminophen (Tylenol Liquid) 650 mg Q4H PRN NGT PAIN AND OR ELEVATED TEMP Last administered on 01/31/17 14:35; Admin Dose 650 MG; Start 01/26/17 at 09:00 Metoprolol Tartrate (Lopressor) 2.5 mg Q4H PRN IV NOTE; Start 01/26/17 at 15:00 Enoxaparin Sodium (Lovenox) 60 mg Q24H SC Last administered on 01/31/17 18:54 ; Admin Dose 60 MG; Start 01/26/17 at 19:30; Status Future Hold Midodrine 5 mg 5 mg Q8 PRN GTB BLOOD PRESSURE SUPPORT Last administered on 01/31 15:36; Admin Dose 5 MG; Start 01/28/17 at 16:30 Cefazolin Sodium (Ancef 1 Gm/50 ml (Pmx)) 50 ml @ 100 mls/hr ONCE IVPB ; Start 02/02/17 at 11:30; Stop 02/02/17 at 11:59 MC SHARPE MD Feb 01, 2017 12:55
--- NOTE | 2017-02-01 14:45 | PN ---
Date/Time of Note Date/Time of Note DATE: 02/01/17 TIME: 14:44 Assessment/Plan VTE Prophylaxis VTE Prophylaxis Intervention: other Lines/Catheters [facility] Type (from [facility] PICC Line Central line still needed: Yes Urinary Cath still in place: Yes Reason Cath still needed: skin wounds contaminated by urine Assessment/Plan Chief Complaint/Hosp Course -Mild leukocytosis with low-grade fevers secondary to possible pneumonia, continue Zosyn, follow up on final cultures monitor chest x-ray. - Bilateral thalamic infarctions, Dr. Payne, neurology consult is appreciated. Continue aspirin - Dysphagia, Dr. Garcia is is following in gastroenterology consultation. Plan for G-tube placement tomorrow. - Staph aureus bacteremia vs contamination, status post antibiotics, 2D echo is negative for vegetation. CSF is unremarkable. Dr. Abarca is following infection disease consultation. - Atrial fibrillation with rapid ventricular response, currently rate is controlled. Dr. Armenta is following and cardiology consultation. - Thrombosis of the bilateral cephalic veins. Continue Lovenox. - Acute kidney injury, Dr. Poole is following in nephrology consultation. - History of CVA - History of hyperlipidemia - Left lower extremity, status post vascular surgery. Problems: Subjective 24 Hr Interval Summary Free Text/Dictation Patient remain unresponsive Exam/Review of Systems Vital Signs Vitals Vital Signs Date Time Temp Pulse Resp B/P Pulse Ox O2 Delivery O2 Flow Rate FiO2 02/01/17 13:46 92 20 96 21 02/01/17 12:27 98.6 102/51 01/28/17 20:08 2.0 01/28/17 20:08 Nasal Cannula Intake and Output 01/31/17 01/31/17 02/01/17 15:00 23:00 07:00 Intake Total 1540 ml 700 ml Output Total 800 ml 1000 ml Balance 740 ml -300 ml Exam Constitutional: well developed Head: atraumatic, normocephalic Neck: supple Respiratory: diminished breath sounds Cardiovascular: regular rate and rhythm Gastrointestinal: non-tender, soft Extremities: normal pulses Results Result Diagram: 01/31/17 0611 01/31/17 0611 Results 24 hrs Laboratory Tests Test 01/31/17 17:37 01/31/17 23:09 02/01/17 05:39 02/01/17 12:27 Bedside Glucose 111 113 132 101 Medications Medications Current Medications Miscellaneous Information 1 ea NOTE XX ; Start 01/17/17 at 10:00 Glucose (Glutose) 15 gm Q15M PRN PO DECREASED GLUCOSE; Start 01/17/17 at 10:00 Glucose (Glutose) 22.5 gm Q15M PRN PO DECREASED GLUCOSE; Start 01/17/17 at 10: 00 Dextrose (D50w Syringe) 25 ml Q15M PRN IV DECREASED GLUCOSE; Start 01/17/17 at 10:00 Dextrose (D50w Syringe) 50 ml Q15M PRN IV DECREASED GLUCOSE; Start 01/17/17 at 10:00 Glucagon (Glucagen) 1 mg Q15M PRN IM DECREASED GLUCOSE; Start 01/17/17 at 10:00 Glucose (Glutose) 15 gm Q15M PRN BUCCAL DECREASED GLUCOSE; Start 01/17/17 at 10 :00 Collagenase (Santyl) 1 applic DAILY TOP Last administered on 02/01/17 09:21; Admin Dose 1 APPLIC; Start 01/17/17 at 21:00 IV Flush (NS 10 ml) 10 ml PRN PRN IV IV PROTOCOL; Start 01/22/17 at 12:00 Insulin Aspart (Novolog Insulin Pen) NOVOLOG *MILD* ALGORI... Q6 SC Last administered on 01/26/17 18:02; Admin Dose 1 UNIT; Start 01/23/17 at 18:00 Miscellaneous Information (Pending Santyl Order For Wound Care) This patient dunaway... PRN PRN XX WOUND CARE; Start 01/24/17 at 07:30 Bisacodyl (Dulcolax Supp) 10 mg DAILY PRN [place] CONSTIPATION Last administered on 01/31/17 17:34; Admin Dose 10 MG; Start 01/25/17 at 16:30 Acetaminophen (Tylenol Liquid) 650 mg Q4H PRN NGT PAIN AND OR ELEVATED TEMP Last administered on 01/31/17 14:35; Admin Dose 650 MG; Start 01/26/17 at 09:00 Metoprolol Tartrate (Lopressor) 2.5 mg Q4H PRN IV NOTE; Start 01/26/17 at 15:00 Enoxaparin Sodium (Lovenox) 60 mg Q24H SC Last administered on 01/31/17 18:54 ; Admin Dose 60 MG; Start 01/26/17 at 19:30; Status Future Hold Midodrine 5 mg 5 mg Q8 PRN GTB BLOOD PRESSURE SUPPORT Last administered on 01/31t 15:36; Admin Dose 5 MG; Start 01/28/17 at 16:30 Cefazolin Sodium (Ancef 1 Gm/50 ml (Pmx)) 50 ml @ 100 mls/hr ONCE IVPB ; Start 02/02/17 at 11:30; Stop 02/02/17 at 11:59 JOSE LOMAS Feb 01, 2017 14:45
[2017-02-02] VITALS (13 sets, daily range): BP systolic 108–128; BP diastolic 48–75; PULSE 71–110; RESP 16–19
[2017-02-02] MEDS: SOD CHLORIDE 0.9% 1,000 ML IV SCH ×2 (00:01→12:25)
[2017-02-02] MEDS: LEVALBUTEROL (NEB) 0.63 MG/3 ML AMP HHN SCH ×4 (03:03→20:16)
[2017-02-02] MEDS: INSULIN ASPART [NOVOLOG] 3 ML PEN SC SCH ×3 (05:33→17:34)
[2017-02-02 07:41] LABS: BASOPHIL # 0.1 10^3/ul (0.0-0.1); BASOPHILS % 1.2 % (0.0-2.0); EOSINOPHILS # 0.4 10^3/ul (0.0-0.5); EOSINOPHILS % 4.3 % (0.0-7.0); HEMATOCRIT 33.1 % (37.0-47.0); HEMOGLOBIN 10.4 g/dl (12.0-16.0); LYMPHOCYTES # 1.6 10^3/ul (0.8-2.9); MEAN CORPUSCULAR HEMOGLOBIN 25.7 pg (29.0-33.0); MEAN CORPUSCULAR HGB CONC 31.4 g/dl (32.0-37.0); MEAN CORPUSCULAR VOLUME 81.7 fl (82.0-101.0); MEAN PLATELET VOLUME 11.9 fl (7.4-10.4); MONOCYTE # 0.5 10^3/ul (0.3-0.9); MONOCYTES % 5.3 % (0.0-11.0); NEUTROPHIL # 7.2 10^3/ul (1.6-7.5); NEUTROPHILS % 72.7 % (39.0-77.0); PLATELET COUNT 629 10^3/UL (140-415); RED BLOOD COUNT 4.05 10^6/ul (4.20-5.40); RED CELL DISTRIBUTION WIDTH 16.7 % (11.5-14.5)
[2017-02-02 07:58] LABS: INR 0.98
[2017-02-02 08:02] LABS: CALCIUM 9.6 mg/dl (8.4-10.2); CREATININE 1.05 mg/dl (0.44-1.00); POTASSIUM 4.3 mmol/L (3.5-5.1)
--- NOTE | 2017-02-02 09:49 | RADRPT ---
PROCEDURE: Chest 1 views. CLINICAL INDICATION: Abnormal breath sounds, preop. TECHNIQUE: AP views of the chest was obtained. COMPARISON: January 29, 2017 FINDINGS: The heart is large. Subsegmental atelectasis is noted in the bilateral lower lobes. Left-sided PICC line is unchanged. Osseous structures are intact. IMPRESSION: Cardiomegaly . Subsegmental atelectasis in the bilateral lower lobes. RPTAT: AA .Fabian Sepulveda MD, Date Time Electronically viewed and signed by .Fabian Sepulveda MD, on 02/02/2017 09:49 .P/
--- NOTE | 2017-02-02 10:18 | CONS ---
Date/Time of Note Date/Time of Note DATE: 02/02/17 TIME: 10:18 Assessment/Plan Assessment/Plan Chief Complaint/Hosp Course assessment/impression: - possible aspiration, improved - acute encephalopathy. CSF from 01/19/2017: WBC=3, RBC=0, glu 53, pro=61, CSF ( [place] serology negative, HSV negative, cocci CF negative, encephalitis meningitis panel could not be done due to a lack of sample), serum ([place] PCR negative, crypto antigen negative, cocci CF negative, histo CF negative). my order of crypto in CSF was cancelled and no reason given - bacteremia due to CoNS, probable contaminant. 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 Pt's s/p pip/tazo (01/26/2017- 01/31/2017) management d/w Pt's Problems: Consultation Date/Type/Reason Admit Date/Time Jan 16, 2017 at 15:19 Initial Consult Date 01/17/17 Type of Consultation: ID Referring Provider: LAWRENCE PICKERING 24 HR Interval Summary Subjective hx not possible: pt non-verbal Exam/Review of Systems Vital Signs Vitals Vital Signs Date Time Temp Pulse Resp B/P Pulse Ox O2 Delivery O2 Flow Rate FiO2 02/02/17 09:03 56 18 96 21 02/02/17 07:38 97.2 108/62 Intake and Output 02/01/17 02/01/17 02/02/17 15:00 23:00 07:00 Intake Total 850 ml 1000 ml Output Total 1000 ml 700 ml Balance -150 ml 300 ml Exam Constitutional: frail, non-verbal Psych: confusion Head: atraumatic, normocephalic Eyes: nl conjunctiva, nl lids ENMT: nl external ears & nose, nl nasal mucosa & septum Respiratory: clear to auscultation, normal air movement Cardiovascular: nl pulses, regular rate and rhythm Gastrointestinal: non-tender, other (GT), soft, No distended Musculoskeletal: nl extremities to inspection Extremities: No edema Neurological: confused, lethargic Skin: nl turgor Results Result Diagram: 02/02/17 0700 02/02/17 0700 Results 24 hrs Laboratory Tests Test 02/01/17 12:27 02/01/17 17:20 02/01/17 23:57 02/02/17 05:31 Bedside Glucose 101 109 106 98 Test 02/02/17 07:00 White Blood Count 10.0 Red Blood Count 4.05 L Hemoglobin 10.4 L Hematocrit 33.1 L Mean Corpuscular Volume 81.7 L Mean Corpuscular Hemoglobin 25.7 L Mean Corpuscular Hemoglobin Concent 31.4 L Red Cell Distribution Width 16.7 H Platelet Count 629 H Mean Platelet Volume 11.9 H Neutrophils % 72.7 Lymphocytes % 16.0 Monocytes % 5.3 Eosinophils % 4.3 Basophils % 1.2 Nucleated Red Blood Cells % 0.0 Neutrophils # 7.2 Lymphocytes # 1.6 Monocytes # 0.5 Eosinophils # 0.4 Basophils # 0.1 Nucleated Red Blood Cells # 0.0 Prothrombin Time 13.0 Prothrombin Time Ratio 1.0 INR International Normalized Ratio 0.98 Sodium Level 144 Potassium Level 4.3 Chloride Level 106 Carbon Dioxide Level 26 Anion Gap 16 Blood Urea Nitrogen 21 H Creatinine 1.05 H Glucose Level 100 Calcium Level 9.6 Medications Medications Current Medications Miscellaneous Information 1 ea NOTE XX ; Start 01/17/17 at 10:00 Glucose (Glutose) 15 gm Q15M PRN PO DECREASED GLUCOSE; Start 01/17/17 at 10:00 Glucose (Glutose) 22.5 gm Q15M PRN PO DECREASED GLUCOSE; Start 01/17/17 at 10: 00 Dextrose (D50w Syringe) 25 ml Q15M PRN IV DECREASED GLUCOSE; Start 01/17/17 at 10:00 Dextrose (D50w Syringe) 50 ml Q15M PRN IV DECREASED GLUCOSE; Start 01/17/17 at 10:00 Glucagon (Glucagen) 1 mg Q15M PRN IM DECREASED GLUCOSE; Start 01/17/17 at 10:00 Glucose (Glutose) 15 gm Q15M PRN BUCCAL DECREASED GLUCOSE; Start 01/17/17 at 10 :00 Collagenase (Santyl) 1 applic DAILY TOP Last administered on 02/01/17 09:21; Admin Dose 1 APPLIC; Start 01/17/17 at 21:00 IV Flush (NS 10 ml) 10 ml PRN PRN IV IV PROTOCOL; Start 01/22/17 at 12:00 Insulin Aspart (Novolog Insulin Pen) NOVOLOG *MILD* ALGORI... Q6 SC Last administered on 01/26/17 18:02; Admin Dose 1 UNIT; Start 01/23/17 at 18:00 Miscellaneous Information (Pending Santyl Order For Wound Care) This patient dunaway... PRN PRN XX WOUND CARE; Start 01/24/17 at 07:30 Bisacodyl (Dulcolax Supp) 10 mg DAILY PRN [place] CONSTIPATION Last administered on 01/31/17 17:34; Admin Dose 10 MG; Start 01/25/17 at 16:30 Acetaminophen (Tylenol Liquid) 650 mg Q4H PRN NGT PAIN AND OR ELEVATED TEMP Last administered on 01/31/17 14:35; Admin Dose 650 MG; Start 01/26/17 at 09:00 Metoprolol Tartrate (Lopressor) 2.5 mg Q4H PRN IV NOTE; Start 01/26/17 at 15:00 Enoxaparin Sodium (Lovenox) 60 mg Q24H SC Last administered on 01/31/17 18:54 ; Admin Dose 60 MG; Start 01/26/17 at 19:30; Status Future Hold Midodrine 5 mg 5 mg Q8 PRN GTB BLOOD PRESSURE SUPPORT Last administered on 01/31 15:36; Admin Dose 5 MG; Start 01/28/17 at 16:30 Cefazolin Sodium 50 ml @ 100 mls/hr ONCE IVPB ; Start 02/02/17 at 11:30; Stop at 11:59 Sodium Chloride (NS) 1,000 ml @ 75 mls/hr [id number] IV Last administered on 00:01; Admin Dose 75 MLS/HR; Start 02/02/17 at 00:00 TYE STYLES M.D. Feb 02, 2017 10:18
[2017-02-02] MEDS: COLLAGENASE 30 GM TUBE TOP SCH (10:52)
[2017-02-02] MEDS ORDERED: CEFAZOLIN 1 GM/50 ML (PMX) 50 ML IVPB SCH (11:30)
--- NOTE | 2017-02-02 11:46 | CONS ---
DATE OF ADMISSION: 01/16/2017 DATE OF CONSULTATION: 01/16/2017 HISTORY OF PRESENT ILLNESS: The patient is 61 years old, admitted to [facility] after she was found in her bed unresponsive. She does not follow any commands. The patient has been on Coumadin with valve the patient had AFib. The patient admitted to [facility] for more advanced treatment. MEDICATION: Her home medications include: 1. Warfarin 5 mg once a day. 2. Metoprolol 100 mg once a day. 3. Penicillin-K 250 b.i.d. 4. Metoprolol 25 mg once a day. 5. Warfarin once a day. PHYSICAL EXAMINATION: NEUROLOGIC: On exam today, the patient does not follow any verbal commands, accompanied by her daughter. HEART: Irregularly irregular. No murmur. ABDOMEN: Soft, relaxed, nondistended, nontender. LUNGS: Equal breath sounds. CRANIAL NERVES: Cranial nerve II: Pupils equal on both sides, reactive to light. Cranial nerves II, IV and : Extraocular muscles intact. Cranial nerve V and VII: face. Cranial nerve VII through XI: Could not assess. Motor exam: Moving both upper extremities to painful stimuli. Sensation, gait and coordination: Could not assess. ASSESSMENT AND PLAN: 1. The patient is 61 years old with underlying syncopal attack. 2. Probably secondary to cardiac arrhythmia with atrial fibrillation. 3. Decreased mini mental status probably secondary to number 1. 4. acute encephalopathy with . I will follow up the patient with electric encephalogram. 5. Give the patient precautions, seizure precaution for now. Again, thank you for asking me to see the patent with you. Dictated By: Connor Lozano MD /ange/alphonso /Document#: [id number]
--- NOTE | 2017-02-02 12:14 | PN ---
Date/Time of Note Date/Time of Note DATE: 02/02/17 TIME: 12:13 Assessment/Plan VTE Prophylaxis VTE Prophylaxis Intervention: other Lines/Catheters [facility] ([facility] P[facility] Line Central line still needed: Yes Urinary Cath still in place: Yes Reason Cath still needed: skin wounds contaminated by urine Assessment/Plan Chief Complaint/Hosp Course -Mild leukocytosis with low-grade fevers secondary to possible pneumonia, continue Zosyn, follow up on final cultures monitor chest x-ray. - Bilateral thalamic infarctions, Dr. Payne, neurology consult is appreciated. Continue aspirin - Dysphagia, Dr. Garcia is is following in gastroenterology consultation. Plan for G-tube placement tomorrow. - Staph aureus bacteremia vs contamination, status post antibiotics, 2D echo is negative for vegetation. CSF is unremarkable. Dr. Abarca is following infection disease consultation. - Atrial fibrillation with rapid ventricular response, currently rate is controlled. Dr. Armenta is following and cardiology consultation. - Thrombosis of the bilateral cephalic veins. Continue Lovenox. - Acute kidney injury, Dr. Poole is following in nephrology consultation. - History of CVA - History of hyperlipidemia - Left lower extremity, status post vascular surgery. Problems: Subjective 24 Hr Interval Summary Free Text/Dictation Patient is not reactive to voice Exam/Review of Systems Vital Signs Vitals Vital Signs Date Time Temp Pulse Resp B/P Pulse Ox O2 Delivery O2 Flow Rate FiO2 02/02/17 11:38 96.7 77 19 128/58 100 02/02/17 09:03 21 Intake and Output 02/01/17 02/01/17 02/02/17 15:00 23:00 07:00 Intake Total 850 ml 1000 ml Output Total 1000 ml 700 ml Balance -150 ml 300 ml Exam Constitutional: well developed Head: atraumatic, normocephalic Neck: supple Respiratory: diminished breath sounds Cardiovascular: regular rate and rhythm Gastrointestinal: non-tender, soft Extremities: normal pulses Results Result Diagram: 02/02/17 0700 02/02/17 0700 Results 24 hrs Laboratory Tests Test 02/01/17 12:27 02/01/17 17:20 02/01/17 23:57 02/02/17 05:31 Bedside Glucose 101 109 106 98 Test 02/02/17 07:00 02/02/17 11:39 White Blood Count 10.0 Red Blood Count 4.05 L Hemoglobin 10.4 L Hematocrit 33.1 L Mean Corpuscular Volume 81.7 L Mean Corpuscular Hemoglobin 25.7 L Mean Corpuscular Hemoglobin Concent 31.4 L Red Cell Distribution Width 16.7 H Platelet Count 629 H Mean Platelet Volume 11.9 H Neutrophils % 72.7 Lymphocytes % 16.0 Monocytes % 5.3 Eosinophils % 4.3 Basophils % 1.2 Nucleated Red Blood Cells % 0.0 Neutrophils # 7.2 Lymphocytes # 1.6 Monocytes # 0.5 Eosinophils # 0.4 Basophils # 0.1 Nucleated Red Blood Cells # 0.0 Prothrombin Time 13.0 Prothrombin Time Ratio 1.0 INR International Normalized Ratio 0.98 Sodium Level 144 Potassium Level 4.3 Chloride Level 106 Carbon Dioxide Level 26 Anion Gap 16 Blood Urea Nitrogen 21 H Creatinine 1.05 H Glucose Level 100 Calcium Level 9.6 Bedside Glucose 100 Medications Medications Current Medications Miscellaneous Information 1 ea NOTE XX ; Start 01/17/17 at 10:00 Glucose (Glutose) 15 gm Q15M PRN PO DECREASED GLUCOSE; Start 01/17/17 at 10:00 Glucose (Glutose) 22.5 gm Q15M PRN PO DECREASED GLUCOSE; Start 01/17/17 at 10: 00 Dextrose (D50w Syringe) 25 ml Q15M PRN IV DECREASED GLUCOSE; Start 01/17/17 at 10:00 Dextrose (D50w Syringe) 50 ml Q15M PRN IV DECREASED GLUCOSE; Start 01/17/17 at 10:00 Glucagon (Glucagen) 1 mg Q15M PRN IM DECREASED GLUCOSE; Start 01/17/17 at 10:00 Glucose (Glutose) 15 gm Q15M PRN BUCCAL DECREASED GLUCOSE; Start 01/17/17 at 10 :00 Collagenase (Santyl) 1 applic DAILY TOP Last administered on 02/02/17 10:52; Admin Dose 1 APPLIC; Start 01/17/17 at 21:00 IV Flush (NS 10 ml) 10 ml PRN PRN IV IV PROTOCOL; Start 01/22/17 at 12:00 Insulin Aspart (Novolog Insulin Pen) NOVOLOG *MILD* ALGORI... Q6 SC Last administered on 01/26/17 18:02; Admin Dose 1 UNIT; Start 01/23/17 at 18:00 Miscellaneous Information (Pending Santyl Order For Wound Care) This patient dunaway... PRN PRN XX WOUND CARE; Start 01/24/17 at 07:30 Bisacodyl (Dulcolax Supp) 10 mg DAILY PRN [place] CONSTIPATION Last administered on 01/31/17 17:34; Admin Dose 10 MG; Start 01/25/17 at 16:30 Acetaminophen (Tylenol Liquid) 650 mg Q4H PRN NGT PAIN AND OR ELEVATED TEMP Last administered on 01/31/17 14:35; Admin Dose 650 MG; Start 01/26/17 at 09:00 Metoprolol Tartrate (Lopressor) 2.5 mg Q4H PRN IV NOTE; Start 01/26/17 at 15:00 Enoxaparin Sodium (Lovenox) 60 mg Q24H SC Last administered on 01/31/17 18:54 ; Admin Dose 60 MG; Start 01/26/17 at 19:30; Status Future Hold Midodrine 5 mg 5 mg Q8 PRN GTB BLOOD PRESSURE SUPPORT Last administered on 01/31 15:36; Admin Dose 5 MG; Start 01/28/17 at 16:30 Sodium Chloride (NS) 1,000 ml @ 75 mls/hr [id number] IV Last administered on 00:01; Admin Dose 75 MLS/HR; Start 02/02/17 at 00:00 JOSE LOMAS Feb 02, 2017 12:13
--- NOTE | 2017-02-02 12:38 | CONS ---
Date/Time of Note Date/Time of Note DATE: 02/02/17 TIME: 12:37 Assessment/Plan Assessment/Plan Additional Assessment/Plan 1. AF-mainly rate controlled/Trop negative x 3 - now with pauses 3.7 sec - I spoke with family - agreed to pacer - aware of risk (mostly with anesthesia induction) - will try to facilitate for early next week. AFTER DISCUSSION WITH DR. REY - WILL HOLD OFF ON {ACER NOW - will monitor closely. 2.Hypotension-now improved on midodrine - stable - Rx as needed 3.encephalopathy/ams - multifatorial 4.coagulopathy-now decreased with coumadin held - on lovenox 5. Acute Renal failure-? secondary to vanc - will monitor now 6.Leukocytosis 7. Cardiomyopathy-EF 45% 8. Cephalic vein thrombosis 9. Dysphagia s/p PEG - hold dig now Consultation Date/Type/Reason Admit Date/Time Jan 16, 2017 at 15:19 Initial Consult Date 01/26/17 Type of Consultation: ID Referring Provider: LAWRENCE PICKERING 24 HR Interval Summary Free Text/Dictation AFTER DISCUSSION WITH DR. REY - WILL HOLD OFF ON {ACER NOW - will monitor closely. ROS: No fever, no chills, no nausea, no vomiting, no diarrhea/constipation No recent weight changes No chest pain, no PND, no orthopnea No dizziness, blurred vision No thirst, no heat or cold intolerance (per nurse) Exam/Review of Systems Vital Signs Vitals Vital Signs Date Time Temp Pulse Resp B/P Pulse Ox O2 Delivery O2 Flow Rate FiO2 02/02/17 11:38 96.7 77 19 128/58 100 02/02/17 09:03 21 Intake and Output 02/01/17 02/01/17 02/02/17 15:00 23:00 07:00 Intake Total 850 ml 1000 ml Output Total 1000 ml 700 ml Balance -150 ml 300 ml Exam General: WN/WD/NAD, AOx 0 HEENT: Unicetric/atraumatic/EOMI (does not follow commands) NECK: JVD elevated, no thyromegaly Lymph: no lymphadenopathy HEART: IR IR regular with no S3, II/ systolic murmur at apex with MS murmur LUNGS: Coarse sounds ABD: soft, NT, ND, +BS : Intact Neuro: non focal SKIN: chronic changes EXT: trace edema Results Result Diagram: 02/02/17 0700 02/02/17 0700 Results 24 hrs Laboratory Tests Test 02/01/17 17:20 02/01/17 23:57 02/02/17 05:31 02/02/17 07:00 Bedside Glucose 109 106 98 White Blood Count 10.0 Red Blood Count 4.05 L Hemoglobin 10.4 L Hematocrit 33.1 L Mean Corpuscular Volume 81.7 L Mean Corpuscular Hemoglobin 25.7 L Mean Corpuscular Hemoglobin Concent 31.4 L Red Cell Distribution Width 16.7 H Platelet Count 629 H Mean Platelet Volume 11.9 H Neutrophils % 72.7 Lymphocytes % 16.0 Monocytes % 5.3 Eosinophils % 4.3 Basophils % 1.2 Nucleated Red Blood Cells % 0.0 Neutrophils # 7.2 Lymphocytes # 1.6 Monocytes # 0.5 Eosinophils # 0.4 Basophils # 0.1 Nucleated Red Blood Cells # 0.0 Prothrombin Time 13.0 Prothrombin Time Ratio 1.0 INR International Normalized Ratio 0.98 Sodium Level 144 Potassium Level 4.3 Chloride Level 106 Carbon Dioxide Level 26 Anion Gap 16 Blood Urea Nitrogen 21 H Creatinine 1.05 H Glucose Level 100 Calcium Level 9.6 Test 02/02/17 11:39 Bedside Glucose 100 Medications Medications Current Medications Miscellaneous Information 1 ea NOTE XX ; Start 01/17/17 at 10:00 Glucose (Glutose) 15 gm Q15M PRN PO DECREASED GLUCOSE; Start 01/17/17 at 10:00 Glucose (Glutose) 22.5 gm Q15M PRN PO DECREASED GLUCOSE; Start 01/17/17 at 10: 00 Dextrose (D50w Syringe) 25 ml Q15M PRN IV DECREASED GLUCOSE; Start 01/17/17 at 10:00 Dextrose (D50w Syringe) 50 ml Q15M PRN IV DECREASED GLUCOSE; Start 01/17/17 at 10:00 Glucagon (Glucagen) 1 mg Q15M PRN IM DECREASED GLUCOSE; Start 01/17/17 at 10:00 Glucose (Glutose) 15 gm Q15M PRN BUCCAL DECREASED GLUCOSE; Start 01/17/17 at 10 :00 Collagenase (Santyl) 1 applic DAILY TOP Last administered on 02/02/17t 10:52; Admin Dose 1 APPLIC; Start 01/17/17 at 21:00 IV Flush (NS 10 ml) 10 ml PRN PRN IV IV PROTOCOL; Start 01/22/17 at 12:00 Insulin Aspart (Novolog Insulin Pen) NOVOLOG *MILD* ALGORI... Q6 SC Last administered on 01/26/17 18:02; Admin Dose 1 UNIT; Start 01/23/17 at 18:00 Miscellaneous Information (Pending Santyl Order For Wound Care) This patient dunaway... PRN PRN XX WOUND CARE; Start 01/24/17 at 07:30 Bisacodyl (Dulcolax Supp) 10 mg DAILY PRN [place] CONSTIPATION Last administered on 01/31/17 17:34; Admin Dose 10 MG; Start 01/25/17 at 16:30 Acetaminophen (Tylenol Liquid) 650 mg Q4H PRN NGT PAIN AND OR ELEVATED TEMP Last administered on 01/31/17 14:35; Admin Dose 650 MG; Start 01/26/17 at 09:00 Metoprolol Tartrate (Lopressor) 2.5 mg Q4H PRN IV NOTE; Start 01/26/17 at 15:00 Enoxaparin Sodium (Lovenox) 60 mg Q24H SC Last administered on 01/31/17 18:54 ; Admin Dose 60 MG; Start 01/26/17 at 19:30; Status Future Hold Midodrine 5 mg 5 mg Q8 PRN GTB BLOOD PRESSURE SUPPORT Last administered on 01/31 15:36; Admin Dose 5 MG; Start 01/28/17 at 16:30 Sodium Chloride (NS) 1,000 ml @ 75 mls/hr [id number] IV Last administered on 00:01; Admin Dose 75 MLS/HR; Start 02/02/17 at 00:00 YAJAIRA ALVAREZ MD Feb 02, 2017 12:38
--- NOTE | 2017-02-02 13:13 | CONS ---
Date/Time of Note Date/Time of Note DATE: 02/02/17 TIME: 13:12 Assessment/Plan Assessment/Plan Additional Assessment/Plan 1) Anemia Comment: Hct stable at 39% (2) MARIELA (acute kidney injury) Status: Acute Comment: Ac renal failure cont to improve. (3) Altered level of consciousness Status: Acute further plans per Neuro Robert Renal Function stable and improved Cont current Rx and plan Consultation Date/Type/Reason Admit Date/Time Jan 16, 2017 at 15:19 Initial Consult Date 01/17/17 Type of Consultation: Renal Referring Provider: LAWRENCE PICKERING 24 HR Interval Summary Constitutional: No requiring O2 Exam/Review of Systems Vital Signs Vitals Vital Signs Date Time Temp Pulse Resp B/P Pulse Ox O2 Delivery O2 Flow Rate FiO2 02/02/17 12:40 83 02/02/17 11:38 96.7 19 128/58 100 02/02/17 09:03 21 Intake and Output 02/01/17 02/01/17 02/02/17 15:00 23:00 07:00 Intake Total 850 ml 1000 ml Output Total 1000 ml 700 ml Balance -150 ml 300 ml Exam Constitutional: No distress ENMT: mucosa pink and moist Neck: No jvd Respiratory: No labored breathing Gastrointestinal: soft Neurological: No lethargic Results Result Diagram: 02/02/17 0700 02/02/17 0700 Results 24 hrs Laboratory Tests Test 02/01/17 17:20 02/01/17 23:57 02/02/17 05:31 02/02/17 07:00 Bedside Glucose 109 106 98 White Blood Count 10.0 Red Blood Count 4.05 L Hemoglobin 10.4 L Hematocrit 33.1 L Mean Corpuscular Volume 81.7 L Mean Corpuscular Hemoglobin 25.7 L Mean Corpuscular Hemoglobin Concent 31.4 L Red Cell Distribution Width 16.7 H Platelet Count 629 H Mean Platelet Volume 11.9 H Neutrophils % 72.7 Lymphocytes % 16.0 Monocytes % 5.3 Eosinophils % 4.3 Basophils % 1.2 Nucleated Red Blood Cells % 0.0 Neutrophils # 7.2 Lymphocytes # 1.6 Monocytes # 0.5 Eosinophils # 0.4 Basophils # 0.1 Nucleated Red Blood Cells # 0.0 Prothrombin Time 13.0 Prothrombin Time Ratio 1.0 INR International Normalized Ratio 0.98 Sodium Level 144 Potassium Level 4.3 Chloride Level 106 Carbon Dioxide Level 26 Anion Gap 16 Blood Urea Nitrogen 21 H Creatinine 1.05 H Glucose Level 100 Calcium Level 9.6 Test 02/02/17 11:39 Bedside Glucose 100 Medications Medications Current Medications Miscellaneous Information 1 ea NOTE XX ; Start 01/17/17 at 10:00 Glucose (Glutose) 15 gm Q15M PRN PO DECREASED GLUCOSE; Start 01/17/17 at 10:00 Glucose (Glutose) 22.5 gm Q15M PRN PO DECREASED GLUCOSE; Start 01/17/17 at 10: 00 Dextrose (D50w Syringe) 25 ml Q15M PRN IV DECREASED GLUCOSE; Start 01/17/17 at 10:00 Dextrose (D50w Syringe) 50 ml Q15M PRN IV DECREASED GLUCOSE; Start 01/17/17 at 10:00 Glucagon (Glucagen) 1 mg Q15M PRN IM DECREASED GLUCOSE; Start 01/17/17 at 10:00 Glucose (Glutose) 15 gm Q15M PRN BUCCAL DECREASED GLUCOSE; Start 01/17/17 at 10 :00 Collagenase (Santyl) 1 applic DAILY TOP Last administered on 02/02/17 10:52; Admin Dose 1 APPLIC; Start 01/17/17 at 21:00 IV Flush (NS 10 ml) 10 ml PRN PRN IV IV PROTOCOL; Start 01/22/17 at 12:00 Insulin Aspart (Novolog Insulin Pen) NOVOLOG *MILD* ALGORI... Q6 SC Last administered on 01/26/17 18:02; Admin Dose 1 UNIT; Start 01/23/17 at 18:00 Miscellaneous Information (Pending Santyl Order For Wound Care) This patient dunaway... PRN PRN XX WOUND CARE; Start 01/24/17 at 07:30 Bisacodyl (Dulcolax Supp) 10 mg DAILY PRN [place] CONSTIPATION Last administered on 01/31/17 17:34; Admin Dose 10 MG; Start 01/25/17 at 16:30 Acetaminophen (Tylenol Liquid) 650 mg Q4H PRN NGT PAIN AND OR ELEVATED TEMP Last administered on 01/31/17 14:35; Admin Dose 650 MG; Start 01/26/17 at 09:00 Metoprolol Tartrate (Lopressor) 2.5 mg Q4H PRN IV NOTE; Start 01/26/17 at 15:00 Enoxaparin Sodium (Lovenox) 60 mg Q24H SC Last administered on 01/31/17 18:54 ; Admin Dose 60 MG; Start 01/26/17 at 19:30; Status Future Hold Midodrine 5 mg 5 mg Q8 PRN GTB BLOOD PRESSURE SUPPORT Last administered on 01/31 15:36; Admin Dose 5 MG; Start 01/28/17 at 16:30 Sodium Chloride (NS) 1,000 ml @ 75 mls/hr [id number] IV Last administered on 12:25; Admin Dose 75 MLS/HR; Start 02/02/17 at 00:00 MC SHARPE MD Feb 02, 2017 13:13
[2017-02-02 18:34] LABS: HOMOCYSTEINE - CARDIOVASCULAR 11.2 umol/L (<10.4)
[2017-02-03] VITALS (12 sets, daily range): BP systolic 91–119; BP diastolic 53–73; PULSE 99–113; RESP 16–20
[2017-02-03] MEDS: ENOXAPARIN 60 MG/0.6 ML SYG SC SCH ×2 (00:29→23:39)
[2017-02-03] MEDS: LEVALBUTEROL (NEB) 0.63 MG/3 ML AMP HHN SCH ×4 (01:26→19:54)
[2017-02-03] MEDS: SOD CHLORIDE 0.9% 1,000 ML IV SCH ×3 (02:40→19:17)
[2017-02-03] MEDS: INSULIN ASPART [NOVOLOG] 3 ML PEN SC SCH ×5 (06:00→23:39)
[2017-02-03] MEDS: COLLAGENASE 30 GM TUBE TOP SCH (08:47)
--- NOTE | 2017-02-03 09:53 | PN ---
Date/Time of Note Date/Time of Note DATE: 02/03/17 TIME: 09:53 Assessment/Plan VTE Prophylaxis VTE Prophylaxis Intervention: other Lines/Catheters IV Catheter Type (from [facility]): PICC Line Central line still needed: Yes Urinary Cath still in place: Yes Reason Cath still needed: skin wounds contaminated by urine Assessment/Plan Chief Complaint/Hosp Course -Mild leukocytosis with low-grade fevers secondary to possible pneumonia, continue Zosyn, follow up on final cultures monitor chest x-ray. - Bilateral thalamic infarctions, Dr. Payne, neurology consult is appreciated. Continue aspirin - Dysphagia, Dr. Garcia is is following in gastroenterology consultation. Plan for G-tube placement tomorrow. - Staph aureus bacteremia vs contamination, status post antibiotics, 2D echo is negative for vegetation. CSF is unremarkable. Dr. Abarca is following infection disease consultation. - Atrial fibrillation with rapid ventricular response, currently rate is controlled. Dr. Armenta is following and cardiology consultation. - Thrombosis of the bilateral cephalic veins. Continue Lovenox. - Acute kidney injury, Dr. Poole is following in nephrology consultation. - History of CVA - History of hyperlipidemia - Left lower extremity, status post vascular surgery. Problems: Subjective 24 Hr Interval Summary Free Text/Dictation Patient remain unresponsive Exam/Review of Systems Vital Signs Vitals Vital Signs Date Time Temp Pulse Resp B/P Pulse Ox O2 Delivery O2 Flow Rate FiO2 02/03/17 09:12 106 02/03/17 08:24 20 97 21 02/03/17 07:10 98.3 114/73 Intake and Output 02/02/17 02/02/17 02/03/17 15:00 23:00 07:00 Intake Total 1850 ml Output Total 1200 ml Balance 650 ml Exam Constitutional: well developed Head: atraumatic, normocephalic Neck: supple Respiratory: clear to auscultation Cardiovascular: regular rate and rhythm Gastrointestinal: non-tender, soft Extremities: normal pulses Results Result Diagram: 02/02/17 0700 02/02/17 0700 Results 24 hrs Laboratory Tests Test 02/02/17 11:39 02/02/17 17:34 02/02/17 22:59 02/03/17 05:47 Bedside Glucose 100 99 124 98 Medications Medications Current Medications Miscellaneous Information 1 ea NOTE XX ; Start 01/17/17 at 10:00 Glucose (Glutose) 15 gm Q15M PRN PO DECREASED GLUCOSE; Start 01/17/17 at 10:00 Glucose (Glutose) 22.5 gm Q15M PRN PO DECREASED GLUCOSE; Start 01/17/17 at 10: 00 Dextrose (D50w Syringe) 25 ml Q15M PRN IV DECREASED GLUCOSE; Start 01/17/17 at 10:00 Dextrose (D50w Syringe) 50 ml Q15M PRN IV DECREASED GLUCOSE; Start 01/17/17 at 10:00 Glucagon (Glucagen) 1 mg Q15M PRN IM DECREASED GLUCOSE; Start 01/17/17 at 10:00 Glucose (Glutose) 15 gm Q15M PRN BUCCAL DECREASED GLUCOSE; Start 01/17/17 at 10 :00 Collagenase (Santyl) 1 applic DAILY TOP Last administered on 02/03/17 08:47; Admin Dose 1 APPLIC; Start 01/17/17 at 21:00 IV Flush (NS 10 ml) 10 ml PRN PRN IV IV PROTOCOL; Start 01/22/17 at 12:00 Insulin Aspart (Novolog Insulin Pen) NOVOLOG *MILD* ALGORI... Q6 SC Last administered on 01/26/17 18:02; Admin Dose 1 UNIT; Start 01/23/17 at 18:00 Miscellaneous Information (Pending Santyl Order For Wound Care) This patient dunaway... PRN PRN XX WOUND CARE; Start 01/24/17 at 07:30 Bisacodyl (Dulcolax Supp) 10 mg DAILY PRN [place] CONSTIPATION Last administered on 01/31/17 17:34; Admin Dose 10 MG; Start 01/25/17 at 16:30 Acetaminophen (Tylenol Liquid) 650 mg Q4H PRN NGT PAIN AND OR ELEVATED TEMP Last administered on 01/31/17 14:35; Admin Dose 650 MG; Start 01/26/17 at 09:00 Metoprolol Tartrate (Lopressor) 2.5 mg Q4H PRN IV NOTE; Start 01/26/17 at 15:00 Midodrine 5 mg 5 mg Q8 PRN GTB BLOOD PRESSURE SUPPORT Last administered on 01/31 15:36; Admin Dose 5 MG; Start 01/28/17 at 16:30 Sodium Chloride (NS) 1,000 ml @ 75 mls/hr [id number] IV Last administered on 06:13; Admin Dose 75 MLS/HR; Start 02/02/17 at 00:00 Enoxaparin Sodium (Lovenox) 60 mg Q24H SC Last administered on 02/03/17 00:29; Admin Dose 60 MG; Start 02/03/17 at 00:00 JOSE LOMAS Feb 03, 2017 09:53
--- NOTE | 2017-02-03 09:55 | CONS ---
Date/Time of Note Date/Time of Note DATE: 02/03/17 TIME: 09:54 Assessment/Plan Assessment/Plan Chief Complaint/Hosp Course assessment/impression: - possible aspiration, improved - acute encephalopathy. CSF from 01/19/2017: WBC=3, RBC=0, glu 53, pro=61, CSF ( [place] serology negative, HSV negative, cocci CF negative, encephalitis meningitis panel could not be done due to a lack of sample), serum ([place] PCR negative, crypto antigen negative, cocci CF negative, histo CF negative). my order of crypto in CSF was cancelled and no reason given - bacteremia due to CoNS, probable contaminant. 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) - A fib - h/o DVT - h/o LLE ischemia s/p thrombolysis and subsequent open thrombectomy and fasciotomy at [facility] 09/2015 - h/o thrombus on DEBBIE per records from [facility] recommendations: - panculture if temp >100.4F; trend WBC level - continue to monitor Pt off systemic antibiotics. Pt's s/p pip/tazo (01/26/2017- 01/31/2017) Problems: Consultation Date/Type/Reason Admit Date/Time Jan 16, 2017 at 15:19 Initial Consult Date 01/17/17 Type of Consultation: ID Referring Provider: LAWRENCE PICKERING 24 HR Interval Summary Subjective hx not possible: pt non-verbal Exam/Review of Systems Vital Signs Vitals Vital Signs Date Time Temp Pulse Resp B/P Pulse Ox O2 Delivery O2 Flow Rate FiO2 02/03/17 09:12 106 02/03/17 08:24 20 97 21 02/03/17 07:10 98.3 114/73 Intake and Output 02/02/17 02/02/17 02/03/17 15:00 23:00 07:00 Intake Total 1850 ml Output Total 1200 ml Balance 650 ml Exam Constitutional: frail, non-verbal Psych: confusion Head: atraumatic, normocephalic Eyes: nl conjunctiva, nl lids ENMT: nl external ears & nose, nl nasal mucosa & septum Respiratory: wheezing (upper airway only) Cardiovascular: nl pulses, regular rate and rhythm Gastrointestinal: non-tender, other (GT in place), soft Genitourinary - Female: other (FC) Musculoskeletal: nl extremities to inspection Extremities: No edema Neurological: confused, lethargic Skin: nl turgor Results Result Diagram: 02/02/17 0700 02/02/17 0700 Results 24 hrs Laboratory Tests Test 02/02/17 11:39 02/02/17 17:34 02/02/17 22:59 02/03/17 05:47 Bedside Glucose 100 99 124 98 Medications Medications Current Medications Miscellaneous Information 1 ea NOTE XX ; Start 01/17/17 at 10:00 Glucose (Glutose) 15 gm Q15M PRN PO DECREASED GLUCOSE; Start 01/17/17 at 10:00 Glucose (Glutose) 22.5 gm Q15M PRN PO DECREASED GLUCOSE; Start 01/17/17 at 10: 00 Dextrose (D50w Syringe) 25 ml Q15M PRN IV DECREASED GLUCOSE; Start 01/17/17 at 10:00 Dextrose (D50w Syringe) 50 ml Q15M PRN IV DECREASED GLUCOSE; Start 01/17/17 at 10:00 Glucagon (Glucagen) 1 mg Q15M PRN IM DECREASED GLUCOSE; Start 01/17/17 at 10:00 Glucose (Glutose) 15 gm Q15M PRN BUCCAL DECREASED GLUCOSE; Start 01/17/17 at 10 :00 Collagenase (Santyl) 1 applic DAILY TOP Last administered on 02/03/17 08:47; Admin Dose 1 APPLIC; Start 01/17/17 at 21:00 IV Flush (NS 10 ml) 10 ml PRN PRN IV IV PROTOCOL; Start 01/22/17 at 12:00 Insulin Aspart (Novolog Insulin Pen) NOVOLOG *MILD* ALGORI... Q6 SC Last administered on 01/26/17 18:02; Admin Dose 1 UNIT; Start 01/23/17 at 18:00 Miscellaneous Information (Pending Santyl Order For Wound Care) This patient dunaway... PRN PRN XX WOUND CARE; Start 01/24/17 at 07:30 Bisacodyl (Dulcolax Supp) 10 mg DAILY PRN [place] CONSTIPATION Last administered on 01/31/17 17:34; Admin Dose 10 MG; Start 01/25/17 at 16:30 Acetaminophen (Tylenol Liquid) 650 mg Q4H PRN NGT PAIN AND OR ELEVATED TEMP Last administered on 01/31/17 14:35; Admin Dose 650 MG; Start 01/26/17 at 09:00 Metoprolol Tartrate (Lopressor) 2.5 mg Q4H PRN IV NOTE; Start 01/26/17 at 15:00 Midodrine 5 mg 5 mg Q8 PRN GTB BLOOD PRESSURE SUPPORT Last administered on 01/31 15:36; Admin Dose 5 MG; Start 01/28/17 at 16:30 Sodium Chloride (NS) 1,000 ml @ 75 mls/hr [id number] IV Last administered on 06:13; Admin Dose 75 MLS/HR; Start 02/02/17 at 00:00 Enoxaparin Sodium (Lovenox) 60 mg Q24H SC Last administered on 02/03/17 00:29; Admin Dose 60 MG; Start 02/03/17 at 00:00 TYE STYLES M.D. Feb 03, 2017 09:55
--- NOTE | 2017-02-03 13:07 | CONS ---
Date/Time of Note Date/Time of Note DATE: 02/03/17 TIME: 13:02 Assessment/Plan Assessment/Plan Chief Complaint/Hosp Course IMP: 1. AF-mainly rate controlled/Trop negative x 3. Had pause x 3.7 seconds 01/30 on standing IVP BB. No recurrence since decrease in IVP BB 2.Hypotension-now improved on midodrine 3.encephalopathy/ams 4.coagulopathy-now decreased with coumadin held 5. Acute Renal failure-? secondary to vanc 6.Leukocytosis 7. Cardiomyopathy-EF 45% 8. Cephalic vein thrombosis 9. Dysphagia s/p PEG Recc: -Tele -serial ecg's -Lovenox -Continue keppra/abx's/acyclovir -Follow MS closely with ongoing neuro eval -IVP BB for rate control PRN and follow for recurrent pause -PRN midodrine for low BP -Possible need for PPM will follow Problems: Consultation Date/Type/Reason Admit Date/Time Jan 16, 2017 at 15:19 Initial Consult Date 01/17/17 Type of Consultation: cardiology Reason for Consultation AF Referring Provider: LAWRENCE PICKERING Exam/Review of Systems Vital Signs Vitals Vital Signs Date Time Temp Pulse Resp B/P Pulse Ox O2 Delivery O2 Flow Rate FiO2 02/03/17 12:31 99 02/03/17 11:37 98.4 20 107/55 98 02/03/17 08:24 21 Intake and Output 02/02/17 02/02/17 02/03/17 15:00 23:00 07:00 Intake Total 1850 ml Output Total 1200 ml Balance 650 ml Exam Review of Systems: CONSTITUTIONAL: No fevers, chills. PULMONARY: No sob CARDIOVASCULAR: No chest pain/palpitations GASTROINTESTINAL: No nausea/vomiting. GENITOURINARY: No hematuria/dysuria. MUSCULOSKELETAL: No myagias/arthalgias. PSYCHIATRIC: The patient denies depression. NEUROLOGIC: encephalopathic Constitutional: other (encephalopathic, non-responsive) Psych: no complaints Head: normocephalic ENMT: mucosa pink and moist Neck: jvd, supple Respiratory: diminished breath sounds Cardiovascular: regular rate and rhythm Gastrointestinal: non-tender, soft Musculoskeletal: muscle tone (normal) Extremities: edema (trace/B) Neurological: unresponsive Results Result Diagram: 02/02/17 0700 02/02/17 0700 Results 24 hrs Laboratory Tests Test 02/02/17 17:34 02/02/17 22:59 02/03/17 05:47 02/03/17 12:01 Bedside Glucose 99 124 98 117 Medications Medications Current Medications Miscellaneous Information 1 ea NOTE XX ; Start 01/17/17 at 10:00 Glucose (Glutose) 15 gm Q15M PRN PO DECREASED GLUCOSE; Start 01/17/17 at 10:00 Glucose (Glutose) 22.5 gm Q15M PRN PO DECREASED GLUCOSE; Start 01/17/17 at 10: 00 Dextrose (D50w Syringe) 25 ml Q15M PRN IV DECREASED GLUCOSE; Start 01/17/17 at 10:00 Dextrose (D50w Syringe) 50 ml Q15M PRN IV DECREASED GLUCOSE; Start 01/17/17 at 10:00 Glucagon (Glucagen) 1 mg Q15M PRN IM DECREASED GLUCOSE; Start 01/17/17 at 10:00 Glucose (Glutose) 15 gm Q15M PRN BUCCAL DECREASED GLUCOSE; Start 01/17/17 at 10 :00 Collagenase (Santyl) 1 applic DAILY TOP Last administered on 02/03/17 08:47; Admin Dose 1 APPLIC; Start 01/17/17 at 21:00 IV Flush (NS 10 ml) 10 ml PRN PRN IV IV PROTOCOL; Start 01/22/17 at 12:00 Insulin Aspart (Novolog Insulin Pen) NOVOLOG *MILD* ALGORI... Q6 SC Last administered on 01/26/17 18:02; Admin Dose 1 UNIT; Start 01/23/17 at 18:00 Miscellaneous Information (Pending Santyl Order For Wound Care) This patient dunaway... PRN PRN XX WOUND CARE; Start 01/24/17 at 07:30 Bisacodyl (Dulcolax Supp) 10 mg DAILY PRN [place] CONSTIPATION Last administered on 01/31/17 17:34; Admin Dose 10 MG; Start 01/25/17 at 16:30 Acetaminophen (Tylenol Liquid) 650 mg Q4H PRN NGT PAIN AND OR ELEVATED TEMP Last administered on 01/31/17 14:35; Admin Dose 650 MG; Start 01/26/17 at 09:00 Metoprolol Tartrate (Lopressor) 2.5 mg Q4H PRN IV NOTE; Start 01/26/17 at 15:00 Midodrine 5 mg 5 mg Q8 PRN GTB BLOOD PRESSURE SUPPORT Last administered on 01/31 15:36; Admin Dose 5 MG; Start 01/28/17 at 16:30 Sodium Chloride (NS) 1,000 ml @ 75 mls/hr [id number] IV Last administered on 06:13; Admin Dose 75 MLS/HR; Start 02/02/17 at 00:00 Enoxaparin Sodium (Lovenox) 60 mg Q24H SC Last administered on 02/03/17 00:29; Admin Dose 60 MG; Start 02/03/17 at 00:00 MINOO REY Feb 03, 2017 13:07
--- NOTE | 2017-02-03 16:56 | CONS ---
Date/Time of Note Date/Time of Note DATE: 02/03/17 TIME: 16:55 Assessment/Plan Assessment/Plan Additional Assessment/Plan Renal function stable and improved Will sign off at this time Re Consult as needed Consultation Date/Type/Reason Admit Date/Time Jan 16, 2017 at 15:19 Initial Consult Date 01/17/17 Type of Consultation: Renal Referring Provider: LAWRENCE PICKERING 24 HR Interval Summary Free Text/Dictation More awake and responsive. Good UO Exam/Review of Systems Vital Signs Vitals Vital Signs Date Time Temp Pulse Resp B/P Pulse Ox O2 Delivery O2 Flow Rate FiO2 02/03/17 16:16 108 02/03/17 15:12 98.6 19 91/53 98 02/03/17 13:51 21 Intake and Output 02/02/17 02/02/17 02/03/17 15:00 23:00 07:00 Intake Total 1850 ml Output Total 1200 ml Balance 650 ml Exam Constitutional: No distress ENMT: mucosa pink and moist Neck: No jvd Respiratory: clear to auscultation Cardiovascular: regular rate and rhythm, No edema Gastrointestinal: non-tender, soft Skin: No diaphoresis Results Result Diagram: 02/02/17 0700 02/02/17 0700 Results 24 hrs Laboratory Tests Test 02/02/17 17:34 02/02/17 22:59 02/03/17 05:47 02/03/17 12:01 Bedside Glucose 99 124 98 117 Medications Medications Current Medications Miscellaneous Information 1 ea NOTE XX ; Start 01/17/17 at 10:00 Glucose (Glutose) 15 gm Q15M PRN PO DECREASED GLUCOSE; Start 01/17/17 at 10:00 Glucose (Glutose) 22.5 gm Q15M PRN PO DECREASED GLUCOSE; Start 01/17/17 at 10: 00 Dextrose (D50w Syringe) 25 ml Q15M PRN IV DECREASED GLUCOSE; Start 01/17/17 at 10:00 Dextrose (D50w Syringe) 50 ml Q15M PRN IV DECREASED GLUCOSE; Start 01/17/17 at 10:00 Glucagon (Glucagen) 1 mg Q15M PRN IM DECREASED GLUCOSE; Start 01/17/17 at 10:00 Glucose (Glutose) 15 gm Q15M PRN BUCCAL DECREASED GLUCOSE; Start 01/17/17 at 10 :00 Collagenase (Santyl) 1 applic DAILY TOP Last administered on 02/03/17 08:47; Admin Dose 1 APPLIC; Start 01/17/17 at 21:00 IV Flush (NS 10 ml) 10 ml PRN PRN IV IV PROTOCOL; Start 01/22/17 at 12:00 Insulin Aspart (Novolog Insulin Pen) NOVOLOG *MILD* ALGORI... Q6 SC Last administered on 01/26/17 18:02; Admin Dose 1 UNIT; Start 01/23/17 at 18:00 Miscellaneous Information (Pending Santyl Order For Wound Care) This patient dunaway... PRN PRN XX WOUND CARE; Start 01/24/17 at 07:30 Bisacodyl (Dulcolax Supp) 10 mg DAILY PRN [place] CONSTIPATION Last administered on 01/31/17 17:34; Admin Dose 10 MG; Start 01/25/17 at 16:30 Acetaminophen (Tylenol Liquid) 650 mg Q4H PRN NGT PAIN AND OR ELEVATED TEMP Last administered on 01/31/17 14:35; Admin Dose 650 MG; Start 01/26/17 at 09:00 Metoprolol Tartrate (Lopressor) 2.5 mg Q4H PRN IV NOTE; Start 01/26/17 at 15:00 Midodrine 5 mg 5 mg Q8 PRN GTB BLOOD PRESSURE SUPPORT Last administered on 01/31 15:36; Admin Dose 5 MG; Start 01/28/17 at 16:30 Sodium Chloride (NS) 1,000 ml @ 75 mls/hr [id number] IV Last administered on 06:13; Admin Dose 75 MLS/HR; Start 02/02/17 at 00:00 Enoxaparin Sodium (Lovenox) 60 mg Q24H SC Last administered on 02/03/17 00:29; Admin Dose 60 MG; Start 02/03/17 at 00:00 MC SHARPE MD Feb 03, 2017 16:56
[2017-02-04] VITALS (13 sets, daily range): BP systolic 95–125; BP diastolic 50–76; PULSE 77–123; RESP 18–20
[2017-02-04] MEDS: LEVALBUTEROL (NEB) 0.63 MG/3 ML AMP HHN SCH ×4 (01:31→20:19)
[2017-02-04] MEDS: SOD CHLORIDE 0.9% 1,000 ML IV SCH ×2 (05:38→18:58)
[2017-02-04] MEDS: INSULIN ASPART [NOVOLOG] 3 ML PEN SC SCH ×3 (06:00→18:00)
[2017-02-04] MEDS: COLLAGENASE 30 GM TUBE TOP SCH (09:32)
--- NOTE | 2017-02-04 09:33 | CONS ---
Date/Time of Note Date/Time of Note DATE: 02/04/17 TIME: 09:32 Assessment/Plan Assessment/Plan Chief Complaint/Hosp Course assessment/impression: - possible aspiration, improved - acute encephalopathy. CSF from 01/19/2017: WBC=3, RBC=0, glu 53, pro=61, CSF ( [place] serology negative, HSV negative, cocci CF negative, encephalitis meningitis panel could not be done due to a lack of sample), serum ([place] PCR negative, crypto antigen negative, cocci CF negative, histo CF negative). my order of crypto in CSF was cancelled and no reason given - bacteremia due to CoNS, probable contaminant. 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 Pt's s/p pip/tazo (01/26/2017- 01/31/2017) Problems: Consultation Date/Type/Reason Admit Date/Time Jan 16, 2017 at 15:19 Initial Consult Date 01/17/17 Type of Consultation: ID Referring Provider: LAWRENCE PICKERING 24 HR Interval Summary Subjective hx not possible: pt non-verbal Exam/Review of Systems Vital Signs Vitals Vital Signs Date Time Temp Pulse Resp B/P Pulse Ox O2 Delivery O2 Flow Rate FiO2 02/04/17 09:06 60 20 97 21 02/04/17 07:25 99.2 116/76 Intake and Output 02/03/17 02/03/17 02/04/17 15:00 23:00 07:00 Intake Total 1550 ml 1925 ml Output Total 900 ml 1200 ml Balance 650 ml 725 ml Exam Constitutional: frail, non-verbal Psych: confusion Head: atraumatic, normocephalic Eyes: nl lids ENMT: nl external ears & nose, nl nasal mucosa & septum Respiratory: wheezing Cardiovascular: nl pulses, regular rate and rhythm Gastrointestinal: non-tender, other (GT), soft Musculoskeletal: nl extremities to inspection Neurological: confused, lethargic Skin: nl turgor Results Result Diagram: 02/02/17 0700 02/02/17 0700 Results 24 hrs Laboratory Tests Test 02/03/17 12:01 02/03/17 17:40 02/03/17 23:32 02/04/17 06:12 Bedside Glucose 117 113 120 104 Medications Medications Current Medications Miscellaneous Information 1 ea NOTE XX ; Start 01/17/17 at 10:00 Glucose (Glutose) 15 gm Q15M PRN PO DECREASED GLUCOSE; Start 01/17/17 at 10:00 Glucose (Glutose) 22.5 gm Q15M PRN PO DECREASED GLUCOSE; Start 01/17/17 at 10: 00 Dextrose (D50w Syringe) 25 ml Q15M PRN IV DECREASED GLUCOSE; Start 01/17/17 at 10:00 Dextrose (D50w Syringe) 50 ml Q15M PRN IV DECREASED GLUCOSE; Start 01/17/17 at 10:00 Glucagon (Glucagen) 1 mg Q15M PRN IM DECREASED GLUCOSE; Start 01/17/17 at 10:00 Glucose (Glutose) 15 gm Q15M PRN BUCCAL DECREASED GLUCOSE; Start 01/17/17 at 10 :00 Collagenase (Santyl) 1 applic DAILY TOP Last administered on 02/03/17 08:47; Admin Dose 1 APPLIC; Start 01/17/17 at 21:00 IV Flush (NS 10 ml) 10 ml PRN PRN IV IV PROTOCOL; Start 01/22/17 at 12:00 Insulin Aspart (Novolog Insulin Pen) NOVOLOG *MILD* ALGORI... Q6 SC Last administered on 01/26/17 18:02; Admin Dose 1 UNIT; Start 01/23/17 at 18:00 Miscellaneous Information (Pending Santyl Order For Wound Care) This patient dunaway... PRN PRN XX WOUND CARE; Start 01/24/17 at 07:30 Bisacodyl (Dulcolax Supp) 10 mg DAILY PRN [place] CONSTIPATION Last administered on 01/31/17 17:34; Admin Dose 10 MG; Start 01/25/17 at 16:30 Acetaminophen (Tylenol Liquid) 650 mg Q4H PRN NGT PAIN AND OR ELEVATED TEMP Last administered on 01/31/17 14:35; Admin Dose 650 MG; Start 01/26/17 at 09:00 Metoprolol Tartrate (Lopressor) 2.5 mg Q4H PRN IV NOTE; Start 01/26/17 at 15:00 Midodrine 5 mg 5 mg Q8 PRN GTB BLOOD PRESSURE SUPPORT Last administered on 01/31 15:36; Admin Dose 5 MG; Start 01/28/17 at 16:30 Sodium Chloride (NS) 1,000 ml @ 75 mls/hr [id number] IV Last administered on 05:38; Admin Dose 75 MLS/HR; Start 02/02/17 at 00:00 Enoxaparin Sodium (Lovenox) 60 mg Q24H SC Last administered on 02/03/17 23:39; Admin Dose 60 MG; Start 02/03/17 at 00:00 TYE STLYES M.D. Feb 04, 2017 09:33
--- NOTE | 2017-02-04 11:01 | CONS ---
Date/Time of Note Date/Time of Note DATE: 02/04/17 TIME: 10:58 Assessment/Plan Assessment/Plan Chief Complaint/Hosp Course IMP: 1. AF-mainly rate controlled/Trop negative x 3. Had pause x 3.7 seconds 01/30 on standing IVP BB. No recurrence since decrease in IVP BB. Now having some mild RVR to low 100's 2.Hypotension-now improved on midodrine 3.encephalopathy/ams 4.coagulopathy-now decreased with coumadin held 5. Acute Renal failure-? secondary to vanc 6.Leukocytosis 7. Cardiomyopathy-EF 45% 8. Cephalic vein thrombosis 9. Dysphagia s/p PEG Recc: -Tele -serial ecg's -Lovenox -Continue keppra/abx's/acyclovir -Follow MS closely with ongoing neuro eval -IVP BB for rate control PRN and follow for recurrent pause -PRN midodrine for low BP -Possible need for PPM will follow/stable at this time Problems: Consultation Date/Type/Reason Admit Date/Time Jan 16, 2017 at 15:19 Initial Consult Date 01/17/17 Type of Consultation: cardiology Reason for Consultation AF Referring Provider: LAWRENCE PICKERING Exam/Review of Systems Vital Signs Vitals Vital Signs Date Time Temp Pulse Resp B/P Pulse Ox O2 Delivery O2 Flow Rate FiO2 02/04/17 09:06 60 20 97 21 02/04/17 07:25 99.2 116/76 Intake and Output 02/03/17 02/03/17 02/04/17 15:00 23:00 07:00 Intake Total 1550 ml 1925 ml Output Total 900 ml 1200 ml Balance 650 ml 725 ml Exam Review of Systems: CONSTITUTIONAL: No fevers, chills. PULMONARY: No sob CARDIOVASCULAR: No chest pain/palpitations GASTROINTESTINAL: No nausea/vomiting. GENITOURINARY: No hematuria/dysuria. MUSCULOSKELETAL: No myagias/arthalgias. PSYCHIATRIC: The patient denies depression. NEUROLOGIC: encephalopathic Constitutional: alert Psych: no complaints Head: normocephalic ENMT: mucosa pink and moist Neck: jvd (9 cm water), supple Respiratory: diminished breath sounds (at bases/B) Cardiovascular: regular rate and rhythm Gastrointestinal: non-tender, soft Musculoskeletal: muscle tone (normal) Extremities: edema (none) Neurological: other (Encephalopathic) Results Result Diagram: 02/02/17 0700 02/02/17 0700 Results 24 hrs Laboratory Tests Test 02/03/17 12:01 02/03/17 17:40 02/03/17 23:32 02/04/17 06:12 Bedside Glucose 117 113 120 104 Medications Medications Current Medications Miscellaneous Information 1 ea NOTE XX ; Start 01/17/17 at 10:00 Glucose (Glutose) 15 gm Q15M PRN PO DECREASED GLUCOSE; Start 01/17/17 at 10:00 Glucose (Glutose) 22.5 gm Q15M PRN PO DECREASED GLUCOSE; Start 01/17/17 at 10: 00 Dextrose (D50w Syringe) 25 ml Q15M PRN IV DECREASED GLUCOSE; Start 01/17/17 at 10:00 Dextrose (D50w Syringe) 50 ml Q15M PRN IV DECREASED GLUCOSE; Start 01/17/17 at 10:00 Glucagon (Glucagen) 1 mg Q15M PRN IM DECREASED GLUCOSE; Start 01/17/17 at 10:00 Glucose (Glutose) 15 gm Q15M PRN BUCCAL DECREASED GLUCOSE; Start 01/17/17 at 10 :00 Collagenase (Santyl) 1 applic DAILY TOP Last administered on 02/04/17 09:32; Admin Dose 1 APPLIC; Start 01/17/17 at 21:00 IV Flush (NS 10 ml) 10 ml PRN PRN IV IV PROTOCOL; Start 01/22/17 at 12:00 Insulin Aspart (Novolog Insulin Pen) NOVOLOG *MILD* ALGORI... Q6 SC Last administered on 01/26/17 18:02; Admin Dose 1 UNIT; Start 01/23/17 at 18:00 Miscellaneous Information (Pending Santyl Order For Wound Care) This patient dunaway... PRN PRN XX WOUND CARE; Start 01/24/17 at 07:30 Bisacodyl (Dulcolax Supp) 10 mg DAILY PRN [place] CONSTIPATION Last administered on 01/31/17 17:34; Admin Dose 10 MG; Start 01/25/17 at 16:30 Acetaminophen (Tylenol Liquid) 650 mg Q4H PRN NGT PAIN AND OR ELEVATED TEMP Last administered on 01/31/17 14:35; Admin Dose 650 MG; Start 01/26/17 at 09:00 Metoprolol Tartrate (Lopressor) 2.5 mg Q4H PRN IV NOTE; Start 01/26/17 at 15:00 Midodrine 5 mg 5 mg Q8 PRN GTB BLOOD PRESSURE SUPPORT Last administered on 01/31 15:36; Admin Dose 5 MG; Start 01/28/17 at 16:30 Sodium Chloride (NS) 1,000 ml @ 75 mls/hr [id number] IV Last administered on 05:38; Admin Dose 75 MLS/HR; Start 02/02/17 at 00:00 Enoxaparin Sodium (Lovenox) 60 mg Q24H SC Last administered on 02/03/17 23:39; Admin Dose 60 MG; Start 02/03/17 at 00:00 MINOO REY Feb 04, 2017 11:01
--- NOTE | 2017-02-04 11:45 | PN ---
Date/Time of Note Date/Time of Note DATE: 02/04/17 TIME: 11:45 Assessment/Plan VTE Prophylaxis VTE Prophylaxis Intervention: other Lines/Catheters IV C[facility]ter Type (from [facility]): PICC Line Urinary Cath still in place: Yes Assessment/Plan Chief Complaint/Hosp Course -Mild leukocytosis with low-grade fevers secondary to possible pneumonia, continue Zosyn, follow up on final cultures monitor chest x-ray. - Bilateral thalamic infarctions, Dr. Payne, neurology consult is appreciated. Continue aspirin - Dysphagia, Dr. Garcia is is following in gastroenterology consultation. Plan for G-tube placement tomorrow. - Staph aureus bacteremia vs contamination, status post antibiotics, 2D echo is negative for vegetation. CSF is unremarkable. Dr. Abarca is following infection disease consultation. - Atrial fibrillation with rapid ventricular response, currently rate is controlled. Dr. Armenta is following and cardiology consultation. - Thrombosis of the bilateral cephalic veins. Continue Lovenox. - Acute kidney injury, Dr. Poole is following in nephrology consultation. - History of CVA - History of hyperlipidemia - Left lower extremity, status post vascular surgery. Problems: Subjective 24 Hr Interval Summary Free Text/Dictation Patient remain unresponsive, has some spontaneous movements Exam/Review of Systems Vital Signs Vitals Vital Signs Date Time Temp Pulse Resp B/P Pulse Ox O2 Delivery O2 Flow Rate FiO2 02/04/17 11:35 98.8 77 18 97/50 93 02/04/17 09:06 21 Intake and Output 02/03/17 02/03/17 02/04/17 14:59 22:59 06:59 Intake Total 1550 ml 1925 ml Output Total 900 ml 1200 ml Balance 650 ml 725 ml Results Result Diagram: 02/02/17 0700 02/02/17 0700 Results 24 hrs Laboratory Tests Test 02/03/17 12:01 02/03/17 17:40 02/03/17 23:32 02/04/17 06:12 Bedside Glucose 117 113 120 104 Test 02/04/17 11:39 Lab Scanned Report REFERENCE LAB Medications Medications Current Medications Miscellaneous Information 1 ea NOTE XX ; Start 01/17/17 at 10:00 Glucose (Glutose) 15 gm Q15M PRN PO DECREASED GLUCOSE; Start 01/17/17 at 10:00 Glucose (Glutose) 22.5 gm Q15M PRN PO DECREASED GLUCOSE; Start 01/17/17 at 10: 00 Dextrose (D50w Syringe) 25 ml Q15M PRN IV DECREASED GLUCOSE; Start 01/17/17 at 10:00 Dextrose (D50w Syringe) 50 ml Q15M PRN IV DECREASED GLUCOSE; Start 01/17/17 at 10:00 Glucagon (Glucagen) 1 mg Q15M PRN IM DECREASED GLUCOSE; Start 01/17/17 at 10:00 Glucose (Glutose) 15 gm Q15M PRN BUCCAL DECREASED GLUCOSE; Start 01/17/17 at 10 :00 Collagenase (Santyl) 1 applic DAILY TOP Last administered on 02/04/17 09:32; Admin Dose 1 APPLIC; Start 01/17/17 at 21:00 IV Flush (NS 10 ml) 10 ml PRN PRN IV IV PROTOCOL; Start 01/22/17 at 12:00 Insulin Aspart (Novolog Insulin Pen) NOVOLOG *MILD* ALGORI... Q6 SC Last administered on 01/26/17 18:02; Admin Dose 1 UNIT; Start 01/23/17 at 18:00 Miscellaneous Information (Pending Santyl Order For Wound Care) This patient dunaway... PRN PRN XX WOUND CARE; Start 01/24/17 at 07:30 Bisacodyl (Dulcolax Supp) 10 mg DAILY PRN [place] CONSTIPATION Last administered on 01/31/17 17:34; Admin Dose 10 MG; Start 01/25/17 at 16:30 Acetaminophen (Tylenol Liquid) 650 mg Q4H PRN NGT PAIN AND OR ELEVATED TEMP Last administered on 01/31/17 14:35; Admin Dose 650 MG; Start 01/26/17 at 09:00 Metoprolol Tartrate (Lopressor) 2.5 mg Q4H PRN IV HR > 110; Start 01/26/17 at 15:00 Midodrine 5 mg 5 mg Q8 PRN GTB BLOOD PRESSURE SUPPORT Last administered on 01/31 15:36; Admin Dose 5 MG; Start 01/28/17 at 16:30 Sodium Chloride (NS) 1,000 ml @ 75 mls/hr [id number] IV Last administered on 05:38; Admin Dose 75 MLS/HR; Start 02/02/17 at 00:00 Enoxaparin Sodium (Lovenox) 60 mg Q24H SC Last administered on 02/03/17t 23:39; Admin Dose 60 MG; Start 02/03/17 at 00:00 JOSE LOMAS Feb 04, 2017 11:45
[2017-02-04] MEDS: NYSTATIN 30 GM POWDER BTL TOP SCH ×2 (13:50→21:58)
[2017-02-04] MEDS: ASPIRIN 81 MG TAB GTB SCH (15:58)
[2017-02-05] VITALS (11 sets, daily range): BP systolic 94–117; BP diastolic 56–73; PULSE 84–99; RESP 17–18
[2017-02-05] MEDS: ENOXAPARIN 60 MG/0.6 ML SYG SC SCH (00:03)
[2017-02-05] MEDS: LEVALBUTEROL (NEB) 0.63 MG/3 ML AMP HHN SCH ×4 (02:04→19:39)
[2017-02-05] MEDS: INSULIN ASPART [NOVOLOG] 3 ML PEN SC SCH ×4 (06:00→17:25)
[2017-02-05] MEDS: ASPIRIN 81 MG TAB GTB SCH (08:34)
[2017-02-05] MEDS: COLLAGENASE 30 GM TUBE TOP SCH (08:34)
[2017-02-05] MEDS: NYSTATIN 30 GM POWDER BTL TOP SCH ×2 (08:34→22:32)
[2017-02-05] MEDS: SOD CHLORIDE 0.9% 1,000 ML IV SCH ×2 (10:17→22:29)
--- NOTE | 2017-02-05 10:59 | CONS ---
Date/Time of Note Date/Time of Note DATE: 02/05/17 TIME: 10:58 Assessment/Plan Assessment/Plan Chief Complaint/Hosp Course assessment/impression: - recurrent CVA - possible aspiration, improved - encephalopathy due to CVA. CSF from 01/19/2017: WBC=3, RBC=0, glu 53, pro=61, CSF ([place] serology negative, HSV negative, cocci CF negative, encephalitis meningitis panel could not be done due to a lack of sample), serum ([place] PCR negative, crypto antigen negative, cocci CF negative, histo CF negative). my order of crypto in CSF was cancelled and no reason given - bacteremia due to CoNS, probable contaminant. 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 Pt's s/p pip/tazo (01/26/2017- 01/31/2017) Problems: Consultation Date/Type/Reason Admit Date/Time Jan 16, 2017 at 15:19 Initial Consult Date 01/17/17 Type of Consultation: ID Referring Provider: LAWRENCE PICKERING 24 HR Interval Summary Subjective hx not possible: pt non-verbal Exam/Review of Systems Vital Signs Vitals Vital Signs Date Time Temp Pulse Resp B/P Pulse Ox O2 Delivery O2 Flow Rate FiO2 02/05/17 08:38 94 02/05/17 07:33 18 98 21 02/05/17 07:23 98.6 117/56 Intake and Output 02/04/17 02/04/17 02/05/17 15:00 23:00 07:00 Intake Total 750 ml 720 ml Output Total 1300 ml 1000 ml Balance -550 ml -280 ml Exam Constitutional: frail, non-verbal Psych: confusion Head: normocephalic Eyes: nl conjunctiva, nl lids ENMT: nl external ears & nose, nl nasal mucosa & septum Respiratory: crackles/rales Cardiovascular: nl pulses, regular rate and rhythm Gastrointestinal: non-tender, other (GT), soft Musculoskeletal: nl extremities to inspection Extremities: No edema Neurological: confused, lethargic Skin: nl turgor Results Result Diagram: 02/02/17 0700 02/02/17 0700 Results 24 hrs Laboratory Tests Test 02/04/17 11:39 02/04/17 12:19 02/04/17 17:52 02/05/17 00:13 Lab Scanned Report REFERENCE LAB Bedside Glucose 116 119 127 Test 02/05/17 06:20 Bedside Glucose 107 Medications Medications Current Medications Miscellaneous Information 1 ea NOTE XX ; Start 01/17/17 at 10:00 Glucose (Glutose) 15 gm Q15M PRN PO DECREASED GLUCOSE; Start 01/17/17 at 10:00 Glucose (Glutose) 22.5 gm Q15M PRN PO DECREASED GLUCOSE; Start 01/17/17 at 10: 00 Dextrose (D50w Syringe) 25 ml Q15M PRN IV DECREASED GLUCOSE; Start 01/17/17 at 10:00 Dextrose (D50w Syringe) 50 ml Q15M PRN IV DECREASED GLUCOSE; Start 01/17/17 at 10:00 Glucagon (Glucagen) 1 mg Q15M PRN IM DECREASED GLUCOSE; Start 01/17/17 at 10:00 Glucose (Glutose) 15 gm Q15M PRN BUCCAL DECREASED GLUCOSE; Start 01/17/17 at 10 :00 Collagenase (Santyl) 1 applic DAILY TOP Last administered on 02/05/17 08:34; Admin Dose 1 APPLIC; Start 01/17/17 at 21:00 IV Flush (NS 10 ml) 10 ml PRN PRN IV IV PROTOCOL; Start 01/22/17 at 12:00 Insulin Aspart (Novolog Insulin Pen) NOVOLOG *MILD* ALGORI... Q6 SC Last administered on 01/26/17 18:02; Admin Dose 1 UNIT; Start 01/23/17 at 18:00 Miscellaneous Information (Pending Santyl Order For Wound Care) This patient dunaway... PRN PRN XX WOUND CARE; Start 01/24/17 at 07:30 Bisacodyl (Dulcolax Supp) 10 mg DAILY PRN [place] CONSTIPATION Last administered on 01/31/17 17:34; Admin Dose 10 MG; Start 01/25/17 at 16:30 Acetaminophen (Tylenol Liquid) 650 mg Q4H PRN NGT PAIN AND OR ELEVATED TEMP Last administered on 01/31/17 14:35; Admin Dose 650 MG; Start 01/26/17 at 09:00 Metoprolol Tartrate (Lopressor) 2.5 mg Q4H PRN IV HR > 110; Start 01/26/17 at 15:00 Midodrine 5 mg 5 mg Q8 PRN GTB BLOOD PRESSURE SUPPORT Last administered on 01/31 15:36; Admin Dose 5 MG; Start 01/28/17 at 16:30 Sodium Chloride (NS) 1,000 ml @ 75 mls/hr [id number] IV Last administered on 10:17; Admin Dose 75 MLS/HR; Start 02/02/17 at 00:00 Enoxaparin Sodium (Lovenox) 60 mg Q24H SC Last administered on 02/05/17 00:03; Admin Dose 60 MG; Start 02/03/17 at 00:00 Nystatin (Nystatin Powder) 1 applic BID TOP Last administered on 02/05/17 08:34 ; Admin Dose 1 APPLIC; Start 02/04/17 at 12:00 Aspirin (Aspirin) 81 mg DAILY GTB Last administered on 02/05/17 08:34; Admin Dose 81 MG; Start 02/04/17 at 15:30 TYE STYLES M.D. Feb 05, 2017 10:59
--- NOTE | 2017-02-05 12:00 | CONS ---
Date/Time of Note Date/Time of Note DATE: 02/05/17 TIME: 11:57 Assessment/Plan Assessment/Plan Chief Complaint/Hosp Course IMP: 1. AF-mainly rate controlled/Trop negative x 3. Had pause x 3.7 seconds 01/30 on standing IVP BB. No recurrence since decrease in IVP BB. Now having some mild RVR to low 100's 2.Hypotension-now improved on midodrine 3.encephalopathy/ams 4.coagulopathy-now decreased with coumadin held 5. Acute Renal failure-? secondary to vanc 6.Leukocytosis 7. Cardiomyopathy-EF 45% 8. Cephalic vein thrombosis 9. Dysphagia s/p PEG Recc: -Tele -serial ecg's -Lovenox -Continue keppra/abx's/acyclovir -Follow MS closely with ongoing neuro eval -IVP BB for rate control PRN and follow for recurrent pause -PRN midodrine for low BP -Possible need for PPM will follow/stable at this time-no definite indication -Now resumed on aspirin per neuro Problems: Consultation Date/Type/Reason Admit Date/Time Jan 16, 2017 at 15:19 Initial Consult Date 01/17/17 Type of Consultation: cardiology Reason for Consultation AF Referring Provider: LAWRENCE PICKERING Exam/Review of Systems Vital Signs Vitals Vital Signs Date Time Temp Pulse Resp B/P Pulse Ox O2 Delivery O2 Flow Rate FiO2 02/05/17 11:22 98.9 91 17 116/73 98 02/05/17 07:33 21 Intake and Output 02/04/17 02/04/17 02/05/17 15:00 23:00 07:00 Intake Total 750 ml 720 ml Output Total 1300 ml 1000 ml Balance -550 ml -280 ml Exam Review of Systems: CONSTITUTIONAL: No fevers, chills. PULMONARY: No sob CARDIOVASCULAR: No chest pain/palpitations GASTROINTESTINAL: No nausea/vomiting. GENITOURINARY: No hematuria/dysuria. MUSCULOSKELETAL: No myagias/arthalgias. PSYCHIATRIC: The patient denies depression. NEUROLOGIC: No weakness Constitutional: other (encephalopthic, non-responsive) Head: normocephalic ENMT: mucosa pink and moist Neck: jvd (8-9 cm water), supple Respiratory: diminished breath sounds (at bases/B) Cardiovascular: irregular rhythm Gastrointestinal: non-tender, soft Musculoskeletal: muscle tone (normal) Extremities: edema (none) Neurological: other (No focal deficits) Results Result Diagram: 02/02/17 0700 02/02/17 0700 Results 24 hrs Laboratory Tests Test 02/04/17 12:19 02/04/17 17:52 02/05/17 00:13 02/05/17 06:20 Bedside Glucose 116 119 127 107 Test 02/05/17 11:51 Bedside Glucose 121 Medications Medications Current Medications Miscellaneous Information 1 ea NOTE XX ; Start 01/17/17 at 10:00 Glucose (Glutose) 15 gm Q15M PRN PO DECREASED GLUCOSE; Start 01/17/17 at 10:00 Glucose (Glutose) 22.5 gm Q15M PRN PO DECREASED GLUCOSE; Start 01/17/17 at 10: 00 Dextrose (D50w Syringe) 25 ml Q15M PRN IV DECREASED GLUCOSE; Start 01/17/17 at 10:00 Dextrose (D50w Syringe) 50 ml Q15M PRN IV DECREASED GLUCOSE; Start 01/17/17 at 10:00 Glucagon (Glucagen) 1 mg Q15M PRN IM DECREASED GLUCOSE; Start 01/17/17 at 10:00 Glucose (Glutose) 15 gm Q15M PRN BUCCAL DECREASED GLUCOSE; Start 01/17/17 at 10 :00 Collagenase (Santyl) 1 applic DAILY TOP Last administered on 02/05/17 08:34; Admin Dose 1 APPLIC; Start 01/17/17 at 21:00 IV Flush (NS 10 ml) 10 ml PRN PRN IV IV PROTOCOL; Start 01/22/17 at 12:00 Insulin Aspart (Novolog Insulin Pen) NOVOLOG *MILD* ALGORI... Q6 SC Last administered on 01/26/17 18:02; Admin Dose 1 UNIT; Start 01/23/17 at 18:00 Miscellaneous Information (Pending Santyl Order For Wound Care) This patient dunaway... PRN PRN XX WOUND CARE; Start 01/24/17 at 07:30 Bisacodyl (Dulcolax Supp) 10 mg DAILY PRN [place] CONSTIPATION Last administered on 01/31/17 17:34; Admin Dose 10 MG; Start 01/25/17 at 16:30 Acetaminophen (Tylenol Liquid) 650 mg Q4H PRN NGT PAIN AND OR ELEVATED TEMP Last administered on 01/31/17 14:35; Admin Dose 650 MG; Start 01/26/17 at 09:00 Metoprolol Tartrate (Lopressor) 2.5 mg Q4H PRN IV HR > 110; Start 01/26/17 at 15:00 Midodrine 5 mg 5 mg Q8 PRN GTB BLOOD PRESSURE SUPPORT Last administered on 01/31 15:36; Admin Dose 5 MG; Start 01/28/17 at 16:30 Sodium Chloride (NS) 1,000 ml @ 75 mls/hr [id number] IV Last administered on 10:17; Admin Dose 75 MLS/HR; Start 02/02/17 at 00:00 Enoxaparin Sodium (Lovenox) 60 mg Q24H SC Last administered on 02/05/17 00:03; Admin Dose 60 MG; Start 02/03/17 at 00:00 Nystatin (Nystatin Powder) 1 applic BID TOP Last administered on 02/05/17 08:34 ; Admin Dose 1 APPLIC; Start 02/04/17 at 12:00 Aspirin (Aspirin) 81 mg DAILY GTB Last administered on 02/05/17 08:34; Admin Dose 81 MG; Start 02/04/17 at 15:30 MINOO REY Feb 05, 2017 11:59
--- NOTE | 2017-02-05 13:32 | PN ---
Date/Time of Note Date/Time of Note DATE: 02/05/17 TIME: 13:31 Assessment/Plan VTE Prophylaxis VTE Prophylaxis Intervention: other Lines/Catheters IV C[facility]ter Type (from [facility]): PICC Line Central line still needed: Yes Urinary Cath still in place: Yes Reason Cath still needed: skin wounds contaminated by urine Assessment/Plan Chief Complaint/Hosp Course -Mild leukocytosis with low-grade fevers secondary to possible pneumonia, continue Zosyn, follow up on final cultures monitor chest x-ray. - Bilateral thalamic infarctions, Dr. Payne, neurology consult is appreciated. Continue aspirin - Dysphagia, Dr. Garcia is is following in gastroenterology consultation. Plan for G-tube placement tomorrow. - Staph aureus bacteremia vs contamination, status post antibiotics, 2D echo is negative for vegetation. CSF is unremarkable. Dr. Abarca is following infection disease consultation. - Atrial fibrillation with rapid ventricular response, currently rate is controlled. Dr. Armenta is following and cardiology consultation. - Thrombosis of the bilateral cephalic veins. Continue Lovenox. - Acute kidney injury, Dr. Poole is following in nephrology consultation. - History of CVA - History of hyperlipidemia - Left lower extremity, status post vascular surgery. Problems: Subjective 24 Hr Interval Summary Free Text/Dictation Patient remain unresponsive Exam/Review of Systems Vital Signs Vitals Vital Signs Date Time Temp Pulse Resp B/P Pulse Ox O2 Delivery O2 Flow Rate FiO2 02/05/17 13:28 97 21 02/05/17 13:27 81 20 02/05/17 11:22 98.9 116/73 Intake and Output 02/04/17 02/04/17 02/05/17 15:00 23:00 07:00 Intake Total 750 ml 720 ml Output Total 1300 ml 1000 ml Balance -550 ml -280 ml Exam Constitutional: well developed Head: atraumatic, normocephalic Neck: supple Respiratory: diminished breath sounds Cardiovascular: regular rate and rhythm Gastrointestinal: soft Extremities: normal pulses Results Result Diagram: 02/02/17 0700 02/02/17 0700 Results 24 hrs Laboratory Tests Test 02/04/17 17:52 02/05/17 00:13 02/05/17 06:20 02/05/17 11:51 Bedside Glucose 119 127 107 121 Medications Medications Current Medications Miscellaneous Information 1 ea NOTE XX ; Start 01/17/17 at 10:00 Glucose (Glutose) 15 gm Q15M PRN PO DECREASED GLUCOSE; Start 01/17/17 at 10:00 Glucose (Glutose) 22.5 gm Q15M PRN PO DECREASED GLUCOSE; Start 01/17/17 at 10: 00 Dextrose (D50w Syringe) 25 ml Q15M PRN IV DECREASED GLUCOSE; Start 01/17/17 at 10:00 Dextrose (D50w Syringe) 50 ml Q15M PRN IV DECREASED GLUCOSE; Start 01/17/17 at 10:00 Glucagon (Glucagen) 1 mg Q15M PRN IM DECREASED GLUCOSE; Start 01/17/17 at 10:00 Glucose (Glutose) 15 gm Q15M PRN BUCCAL DECREASED GLUCOSE; Start 01/17/17 at 10 :00 Collagenase (Santyl) 1 applic DAILY TOP Last administered on 02/05/17 08:34; Admin Dose 1 APPLIC; Start 01/17/17 at 21:00 IV Flush (NS 10 ml) 10 ml PRN PRN IV IV PROTOCOL; Start 01/22/17 at 12:00 Insulin Aspart (Novolog Insulin Pen) NOVOLOG *MILD* ALGORI... Q6 SC Last administered on 01/26/17 18:02; Admin Dose 1 UNIT; Start 01/23/17 at 18:00 Miscellaneous Information (Pending Santyl Order For Wound Care) This patient dunaway... PRN PRN XX WOUND CARE; Start 01/24/17 at 07:30 Bisacodyl (Dulcolax Supp) 10 mg DAILY PRN [place] CONSTIPATION Last administered on 01/31/17 17:34; Admin Dose 10 MG; Start 01/25/17 at 16:30 Acetaminophen (Tylenol Liquid) 650 mg Q4H PRN NGT PAIN AND OR ELEVATED TEMP Last administered on 01/31/17 14:35; Admin Dose 650 MG; Start 01/26/17 at 09:00 Metoprolol Tartrate (Lopressor) 2.5 mg Q4H PRN IV HR > 110; Start 01/26/17 at 15:00 Midodrine 5 mg 5 mg Q8 PRN GTB BLOOD PRESSURE SUPPORT Last administered on 01/31 15:36; Admin Dose 5 MG; Start 01/28/17 at 16:30 Sodium Chloride (NS) 1,000 ml @ 75 mls/hr [id number] IV Last administered on 10:17; Admin Dose 75 MLS/HR; Start 02/02/17 at 00:00 Enoxaparin Sodium (Lovenox) 60 mg Q24H SC Last administered on 02/05/17 00:03; Admin Dose 60 MG; Start 02/03/17 at 00:00 Nystatin (Nystatin Powder) 1 applic BID TOP Last administered on 02/05/17 08:34 ; Admin Dose 1 APPLIC; Start 02/04/17 at 12:00 Aspirin (Aspirin) 81 mg DAILY GTB Last administered on 02/05/17 08:34; Admin Dose 81 MG; Start 02/04/17 at 15:30 JOSE LOMAS Feb 05, 2017 13:32
[2017-02-06] VITALS (13 sets, daily range): BP systolic 105–132; BP diastolic 55–88; PULSE 73–120; RESP 16–17
[2017-02-06] MEDS: ENOXAPARIN 60 MG/0.6 ML SYG SC SCH (00:16)
[2017-02-06] MEDS: LEVALBUTEROL (NEB) 0.63 MG/3 ML AMP HHN SCH ×4 (01:35→20:29)
[2017-02-06] MEDS: METOPROLOL 5 MG INJ IV PRN (02:23)
[2017-02-06] MEDS: INSULIN ASPART [NOVOLOG] 3 ML PEN SC SCH ×4 (06:00→17:21)
[2017-02-06] MEDS: ASPIRIN 81 MG TAB GTB SCH (08:55)
[2017-02-06] MEDS: COLLAGENASE 30 GM TUBE TOP SCH (08:55)
[2017-02-06] MEDS: NYSTATIN 30 GM POWDER BTL TOP SCH ×2 (08:55→21:16)
--- NOTE | 2017-02-06 10:08 | CONS ---
Date/Time of Note Date/Time of Note DATE: 02/06/17 TIME: 10:06 Assessment/Plan Assessment/Plan Chief Complaint/Hosp Course assessment/impression: - recurrent CVA - possible aspiration, improved - encephalopathy due to CVA. CSF from 01/19/2017: WBC=3, RBC=0, glu 53, pro=61, CSF ([place] serology negative, HSV negative, cocci CF negative, encephalitis meningitis panel could not be done due to a lack of sample), serum ([place] PCR negative, crypto antigen negative, cocci CF negative, histo CF negative). my order of crypto in CSF was cancelled and no reason given - bacteremia due to CoNS, probable contaminant. Transthoracic echo on 01/16/2017 did not reveal valvular vegetation - h/o CVA - MARIELA - h/o rheumatic heart disease (probable rheumatic severe MS on transthoracic echo) - A fib - h/o DVT - h/o LLE ischemia s/p thrombolysis and subsequent open thrombectomy and fasciotomy at [facility] 09/2015 - h/o thrombus on DEBBIE per records from [facility] recommendations: - I instructed the family to encourage Pt to do more deep breathing - panculture if temp >100.4F - continue to monitor Pt off systemic antibiotics. Pt's s/p pip/tazo (01/26/2017- 01/31/2017) management d/w Pt's son Problems: Consultation Date/Type/Reason Admit Date/Time Jan 16, 2017 at 15:19 Initial Consult Date 01/17/17 Type of Consultation: ID Referring Provider: LAWRENCE PICKERING 24 HR Interval Summary Subjective hx not possible: pt non-verbal Exam/Review of Systems Vital Signs Vitals Vital Signs Date Time Temp Pulse Resp B/P Pulse Ox O2 Delivery O2 Flow Rate FiO2 02/06/17 08:23 91 02/06/17 08:00 20 96 21 02/06/17 07:26 99.0 117/68 Intake and Output 02/05/17 02/05/17 02/06/17 15:00 23:00 07:00 Intake Total 700 ml 75 ml Output Total 1100 ml Balance -400 ml 75 ml Exam Constitutional: frail, non-verbal Psych: confusion Head: atraumatic, normocephalic Eyes: nl lids ENMT: nl external ears & nose, nl nasal mucosa & septum Neck: supple Respiratory: crackles/rales Cardiovascular: nl pulses, regular rate and rhythm Gastrointestinal: non-tender, other (GT), soft Genitourinary - Female: other (FC) Musculoskeletal: nl extremities to inspection Extremities: No edema Neurological: confused, lethargic Skin: nl turgor Results Result Diagram: 02/02/17 0700 02/02/17 0700 Results 24 hrs Laboratory Tests Test 02/05/17 11:51 02/05/17 17:05 02/05/17 23:48 02/06/17 05:38 Bedside Glucose 121 111 114 99 Medications Medications Current Medications Miscellaneous Information 1 ea NOTE XX ; Start 01/17/17 at 10:00 Glucose (Glutose) 15 gm Q15M PRN PO DECREASED GLUCOSE; Start 01/17/17 at 10:00 Glucose (Glutose) 22.5 gm Q15M PRN PO DECREASED GLUCOSE; Start 01/17/17 at 10: 00 Dextrose (D50w Syringe) 25 ml Q15M PRN IV DECREASED GLUCOSE; Start 01/17/17 at 10:00 Dextrose (D50w Syringe) 50 ml Q15M PRN IV DECREASED GLUCOSE; Start 01/17/17 at 10:00 Glucagon (Glucagen) 1 mg Q15M PRN IM DECREASED GLUCOSE; Start 01/17/17 at 10:00 Glucose (Glutose) 15 gm Q15M PRN BUCCAL DECREASED GLUCOSE; Start 01/17/17 at 10 :00 Collagenase (Santyl) 1 applic DAILY TOP Last administered on 02/06/17 08:55; Admin Dose 1 APPLIC; Start 01/17/17 at 21:00 IV Flush (NS 10 ml) 10 ml PRN PRN IV IV PROTOCOL; Start 01/22/17 at 12:00 Insulin Aspart (Novolog Insulin Pen) NOVOLOG *MILD* ALGORI... Q6 SC Last administered on 01/26/17 18:02; Admin Dose 1 UNIT; Start 01/23/17 at 18:00 Miscellaneous Information (Pending Santyl Order For Wound Care) This patient dunaway... PRN PRN XX WOUND CARE; Start 01/24/17 at 07:30 Bisacodyl (Dulcolax Supp) 10 mg DAILY PRN [place] CONSTIPATION Last administered on 01/31/17 17:34; Admin Dose 10 MG; Start 01/25/17 at 16:30 Acetaminophen (Tylenol Liquid) 650 mg Q4H PRN NGT PAIN AND OR ELEVATED TEMP Last administered on 01/31/17 14:35; Admin Dose 650 MG; Start 01/26/17 at 09:00 Metoprolol Tartrate (Lopressor) 2.5 mg Q4H PRN IV HR > 110 Last administered on 02/06/17 02:23; Admin Dose 2.5 MG; Start 01/26/17 at 15:00 Midodrine 5 mg 5 mg Q8 PRN GTB BLOOD PRESSURE SUPPORT Last administered on 01/31 15:36; Admin Dose 5 MG; Start 01/28/17 at 16:30 Sodium Chloride (NS) 1,000 ml @ 75 mls/hr [id number] IV Last administered on 22:29; Admin Dose 75 MLS/HR; Start 02/02/17 at 00:00 Enoxaparin Sodium (Lovenox) 60 mg Q24H SC Last administered on 02/06/17 00:16; Admin Dose 60 MG; Start 02/03/17 at 00:00 Nystatin (Nystatin Powder) 1 applic BID TOP Last administered on 02/06/17 08:55 ; Admin Dose 1 APPLIC; Start 02/04/17 at 12:00 Aspirin (Aspirin) 81 mg DAILY GTB Last administered on 02/06/17 08:55; Admin Dose 81 MG; Start 02/04/17 at 15:30 TYE STYLES M.D. Feb 06, 2017 10:08
--- NOTE | 2017-02-06 11:46 | PN ---
Date/Time of Note Date/Time of Note DATE: 02/06/17 TIME: 11:45 Assessment/Plan VTE Prophylaxis VTE Prophylaxis Intervention: other Lines/Catheters IV C[facility] Type (from [facility]): PICC Line Central line still needed: Yes Urinary Cath still in place: Yes Reason Cath still needed: skin wounds contaminated by urine Assessment/Plan Chief Complaint/Hosp Course -Mild leukocytosis with low-grade fevers secondary to possible pneumonia, continue Zosyn, follow up on final cultures monitor chest x-ray. - Bilateral thalamic infarctions, Dr. Payne, neurology consult is appreciated. Continue aspirin - Dysphagia, Dr. Garcia is is following in gastroenterology consultation. Plan for G-tube placement tomorrow. - Staph aureus bacteremia vs contamination, status post antibiotics, 2D echo is negative for vegetation. CSF is unremarkable. Dr. Abarca is following infection disease consultation. - Atrial fibrillation with rapid ventricular response, currently rate is controlled. Dr. Armenta is following and cardiology consultation. - Thrombosis of the bilateral cephalic veins. Continue Lovenox. - Acute kidney injury, Dr. Poole is following in nephrology consultation. - History of CVA - History of hyperlipidemia - Left lower extremity, status post vascular surgery. Problems: Subjective 24 Hr Interval Summary Free Text/Dictation Patient remain unresponsive Exam/Review of Systems Vital Signs Vitals Vital Signs Date Time Temp Pulse Resp B/P Pulse Ox O2 Delivery O2 Flow Rate FiO2 02/06/17 11:12 98.5 89 16 132/59 98 02/06/17 08:00 21 Intake and Output 02/05/17 02/05/17 02/06/17 15:00 23:00 07:00 Intake Total 700 ml 75 ml Output Total 1100 ml Balance -400 ml 75 ml Exam Constitutional: well developed Head: atraumatic, normocephalic Neck: supple Respiratory: diminished breath sounds Cardiovascular: regular rate and rhythm Gastrointestinal: non-tender, soft Extremities: normal pulses Results Result Diagram: 02/02/17 0700 02/02/17 0700 Results 24 hrs Laboratory Tests Test 02/05/17 11:51 02/05/17 17:05 02/05/17 23:48 02/06/17 05:38 Bedside Glucose 121 111 114 99 Test 02/06/17 11:34 Bedside Glucose 100 Medications Medications Current Medications Miscellaneous Information 1 ea NOTE XX ; Start 01/17/17 at 10:00 Glucose (Glutose) 15 gm Q15M PRN PO DECREASED GLUCOSE; Start 01/17/17 at 10:00 Glucose (Glutose) 22.5 gm Q15M PRN PO DECREASED GLUCOSE; Start 01/17/17 at 10: 00 Dextrose (D50w Syringe) 25 ml Q15M PRN IV DECREASED GLUCOSE; Start 01/17/17 at 10:00 Dextrose (D50w Syringe) 50 ml Q15M PRN IV DECREASED GLUCOSE; Start 01/17/17 at 10:00 Glucagon (Glucagen) 1 mg Q15M PRN IM DECREASED GLUCOSE; Start 01/17/17 at 10:00 Glucose (Glutose) 15 gm Q15M PRN BUCCAL DECREASED GLUCOSE; Start 01/17/17 at 10 :00 Collagenase (Santyl) 1 applic DAILY TOP Last administered on 02/06/17 08:55; Admin Dose 1 APPLIC; Start 01/17/17 at 21:00 IV Flush (NS 10 ml) 10 ml PRN PRN IV IV PROTOCOL; Start 01/22/17 at 12:00 Insulin Aspart (Novolog Insulin Pen) NOVOLOG *MILD* ALGORI... Q6 SC Last administered on 01/26/17 18:02; Admin Dose 1 UNIT; Start 01/23/17 at 18:00 Miscellaneous Information (Pending Santyl Order For Wound Care) This patient dunaway... PRN PRN XX WOUND CARE; Start 01/24/17 at 07:30 Bisacodyl (Dulcolax Supp) 10 mg DAILY PRN [place] CONSTIPATION Last administered on 01/31/17 17:34; Admin Dose 10 MG; Start 01/25/17 at 16:30 Acetaminophen (Tylenol Liquid) 650 mg Q4H PRN NGT PAIN AND OR ELEVATED TEMP Last administered on 01/31/17 14:35; Admin Dose 650 MG; Start 01/26/17 at 09:00 Metoprolol Tartrate (Lopressor) 2.5 mg Q4H PRN IV HR > 110 Last administered on 02/06/17 02:23; Admin Dose 2.5 MG; Start 01/26/17 at 15:00 Midodrine 5 mg 5 mg Q8 PRN GTB BLOOD PRESSURE SUPPORT Last administered on 01/31 15:36; Admin Dose 5 MG; Start 01/28/17 at 16:30 Sodium Chloride (NS) 1,000 ml @ 75 mls/hr [id number] IV Last administered on 22:29; Admin Dose 75 MLS/HR; Start 02/02/17 at 00:00 Enoxaparin Sodium (Lovenox) 60 mg Q24H SC Last administered on 02/06/17 00:16; Admin Dose 60 MG; Start 02/03/17 at 00:00 Nystatin (Nystatin Powder) 1 applic BID TOP Last administered on 02/06/17 08:55 ; Admin Dose 1 APPLIC; Start 02/04/17 at 12:00 Aspirin (Aspirin) 81 mg DAILY GTB Last administered on 02/06/17 08:55; Admin Dose 81 MG; Start 02/04/17 at 15:30 JOSE LOMAS Feb 06, 2017 11:46
--- NOTE | 2017-02-06 13:32 | CONS ---
Date/Time of Note Date/Time of Note DATE: 02/06/17 TIME: 13:29 Assessment/Plan Assessment/Plan Additional Assessment/Plan 1. Atrial fibrillation 2. Encephalopathy 3. Acute Renal failure 4. Cardiomyopathy-EF 45% 5. Cephalic vein thrombosis 6. Coagulopathy 7. Anemia Continue Metoprol PRN Continue ASA Continue midodrine Continue GI and DVT Prophylaxis Consultation Date/Type/Reason Admit Date/Time Jan 16, 2017 at 15:19 Constitutional: requiring IVF, requiring O2 Respiratory: shortness of breath Psychological: confusion Social History Smoking Status: Unknown if ever smoked Exam/Review of Systems Vital Signs Vitals Vital Signs Date Time Temp Pulse Resp B/P Pulse Ox O2 Delivery O2 Flow Rate FiO2 02/06/17 11:12 98.5 89 16 132/59 98 02/06/17 08:00 21 Intake and Output 02/05/17 02/05/17 02/06/17 15:00 23:00 07:00 Intake Total 700 ml 75 ml Output Total 1100 ml Balance -400 ml 75 ml Exam Head: atraumatic, normocephalic Neck: non-tender, supple Respiratory: clear to auscultation Cardiovascular: irregular rhythm Gastrointestinal: nl liver, spleen, non-tender, soft Extremities: normal pulses Results Result Diagram: 02/02/17 0700 02/02/17 0700 Results 24 hrs Laboratory Tests Test 02/05/17 17:05 02/05/17 23:48 02/06/17 05:38 02/06/17 11:34 Bedside Glucose 111 114 99 100 Medications Medications Current Medications Miscellaneous Information 1 ea NOTE XX ; Start 01/17/17 at 10:00 Glucose (Glutose) 15 gm Q15M PRN PO DECREASED GLUCOSE; Start 01/17/17 at 10:00 Glucose (Glutose) 22.5 gm Q15M PRN PO DECREASED GLUCOSE; Start 01/17/17 at 10: 00 Dextrose (D50w Syringe) 25 ml Q15M PRN IV DECREASED GLUCOSE; Start 01/17/17 at 10:00 Dextrose (D50w Syringe) 50 ml Q15M PRN IV DECREASED GLUCOSE; Start 01/17/17 at 10:00 Glucagon (Glucagen) 1 mg Q15M PRN IM DECREASED GLUCOSE; Start 01/17/17 at 10:00 Glucose (Glutose) 15 gm Q15M PRN BUCCAL DECREASED GLUCOSE; Start 01/17/17 at 10 :00 Collagenase (Santyl) 1 applic DAILY TOP Last administered on 02/06/17 08:55; Admin Dose 1 APPLIC; Start 01/17/17 at 21:00 IV Flush (NS 10 ml) 10 ml PRN PRN IV IV PROTOCOL; Start 01/22/17 at 12:00 Insulin Aspart (Novolog Insulin Pen) NOVOLOG *MILD* ALGORI... Q6 SC Last administered on 01/26/17 18:02; Admin Dose 1 UNIT; Start 01/23/17 at 18:00 Miscellaneous Information (Pending Santyl Order For Wound Care) This patient dunaway... PRN PRN XX WOUND CARE; Start 01/24/17 at 07:30 Bisacodyl (Dulcolax Supp) 10 mg DAILY PRN [place] CONSTIPATION Last administered on 01/31/17 17:34; Admin Dose 10 MG; Start 01/25/17 at 16:30 Acetaminophen (Tylenol Liquid) 650 mg Q4H PRN NGT PAIN AND OR ELEVATED TEMP Last administered on 01/31/17 14:35; Admin Dose 650 MG; Start 01/26/17 at 09:00 Metoprolol Tartrate (Lopressor) 2.5 mg Q4H PRN IV HR > 110 Last administered on 02/06/17 02:23; Admin Dose 2.5 MG; Start 01/26/17 at 15:00 Midodrine 5 mg 5 mg Q8 PRN GTB BLOOD PRESSURE SUPPORT Last administered on 01/31 15:36; Admin Dose 5 MG; Start 01/28/17 at 16:30 Sodium Chloride (NS) 1,000 ml @ 75 mls/hr [id number] IV Last administered on 22:29; Admin Dose 75 MLS/HR; Start 02/02/17 at 00:00 Enoxaparin Sodium (Lovenox) 60 mg Q24H SC Last administered on 02/06/17 00:16; Admin Dose 60 MG; Start 02/03/17 at 00:00 Nystatin (Nystatin Powder) 1 applic BID TOP Last administered on 02/06/17 08:55 ; Admin Dose 1 APPLIC; Start 02/04/17 at 12:00 Aspirin (Aspirin) 81 mg DAILY GTB Last administered on 02/06/17t 08:55; Admin Dose 81 MG; Start 02/04/17 at 15:30 JOSEFA WEINSTEIN M.D. Feb 06, 2017 13:32
[2017-02-06] MEDS: SOD CHLORIDE 0.9% 1,000 ML IV SCH (20:00)
[2017-02-07] VITALS (11 sets, daily range): BP systolic 102–125; BP diastolic 58–89; PULSE 73–110; RESP 16–20
[2017-02-07] MEDS: ENOXAPARIN 60 MG/0.6 ML SYG SC SCH (00:35)
[2017-02-07] MEDS: LEVALBUTEROL (NEB) 0.63 MG/3 ML AMP HHN SCH ×4 (02:23→19:48)
[2017-02-07] MEDS: INSULIN ASPART [NOVOLOG] 3 ML PEN SC SCH ×4 (05:25→17:14)
[2017-02-07] MEDS: NYSTATIN 30 GM POWDER BTL TOP SCH ×2 (08:34→20:16)
[2017-02-07] MEDS: COLLAGENASE 30 GM TUBE TOP SCH (08:34)
[2017-02-07] MEDS: ASPIRIN 81 MG TAB GTB SCH (08:34)
--- NOTE | 2017-02-07 11:46 | PN ---
Date/Time of Note Date/Time of Note DATE: 02/07/17 TIME: 11:45 Assessment/Plan VTE Prophylaxis VTE Prophylaxis Intervention: other Lines/Catheters IV C[facility] Type ([facility] PICC Line Central line still needed: Yes Urinary Cath still in place: Yes Reason Cath still needed: skin wounds contaminated by urine Assessment/Plan Chief Complaint/Hosp Course -Mild leukocytosis with low-grade fevers secondary to possible pneumonia, continue Zosyn, follow up on final cultures monitor chest x-ray. - Bilateral thalamic infarctions, Dr. Payne, neurology consult is appreciated. Continue aspirin - Dysphagia, Dr. Garcia is is following in gastroenterology consultation. Plan for G-tube placement tomorrow. - Staph aureus bacteremia vs contamination, status post antibiotics, 2D echo is negative for vegetation. CSF is unremarkable. Dr. Abarca is following infection disease consultation. - Atrial fibrillation with rapid ventricular response, currently rate is controlled. Dr. Armenta is following and cardiology consultation. - Thrombosis of the bilateral cephalic veins. Continue Lovenox. - Acute kidney injury, Dr. Poole is following in nephrology consultation. - History of CVA - History of hyperlipidemia - Left lower extremity, status post vascular surgery. Problems: Subjective 24 Hr Interval Summary Free Text/Dictation Patient remain unresponsive Exam/Review of Systems Vital Signs Vitals Vital Signs Date Time Temp Pulse Resp B/P Pulse Ox O2 Delivery O2 Flow Rate FiO2 02/07/17 11:27 98.0 75 16 111/71 96 02/07/17 09:29 21 Intake and Output 02/06/17 02/06/17 02/07/17 15:00 23:00 07:00 Intake Total 1700 ml 1425 ml Output Total 600 ml 1400 ml Balance 1100 ml 25 ml Exam Constitutional: well developed Head: atraumatic, normocephalic Neck: supple Respiratory: clear to auscultation Cardiovascular: regular rate and rhythm Gastrointestinal: non-tender, soft Extremities: normal pulses Results Results 24 hrs Laboratory Tests Test 02/06/17 17:18 02/07/17 00:29 02/07/17 05:24 Bedside Glucose 106 127 103 Medications Medications Current Medications Miscellaneous Information 1 ea NOTE XX ; Start 01/17/17 at 10:00 Glucose (Glutose) 15 gm Q15M PRN PO DECREASED GLUCOSE; Start 01/17/17 at 10:00 Glucose (Glutose) 22.5 gm Q15M PRN PO DECREASED GLUCOSE; Start 01/17/17 at 10: 00 Dextrose (D50w Syringe) 25 ml Q15M PRN IV DECREASED GLUCOSE; Start 01/17/17 at 10:00 Dextrose (D50w Syringe) 50 ml Q15M PRN IV DECREASED GLUCOSE; Start 01/17/17 at 10:00 Glucagon (Glucagen) 1 mg Q15M PRN IM DECREASED GLUCOSE; Start 01/17/17 at 10:00 Glucose (Glutose) 15 gm Q15M PRN BUCCAL DECREASED GLUCOSE; Start 01/17/17 at 10 :00 Collagenase (Santyl) 1 applic DAILY TOP Last administered on 02/07/17 08:34; Admin Dose 1 APPLIC; Start 01/17/17 at 21:00 IV Flush (NS 10 ml) 10 ml PRN PRN IV IV PROTOCOL; Start 01/22/17 at 12:00 Insulin Aspart (Novolog Insulin Pen) NOVOLOG *MILD* ALGORI... Q6 SC Last administered on 01/26/17 18:02; Admin Dose 1 UNIT; Start 01/23/17 at 18:00 Miscellaneous Information (Pending Santyl Order For Wound Care) This patient dunaway... PRN PRN XX WOUND CARE; Start 01/24/17 at 07:30 Bisacodyl (Dulcolax Supp) 10 mg DAILY PRN [place] CONSTIPATION Last administered on 01/31/17 17:34; Admin Dose 10 MG; Start 01/25/17 at 16:30 Acetaminophen (Tylenol Liquid) 650 mg Q4H PRN NGT PAIN AND OR ELEVATED TEMP Last administered on 01/31/17 14:35; Admin Dose 650 MG; Start 01/26/17 at 09:00 Metoprolol Tartrate (Lopressor) 2.5 mg Q4H PRN IV HR > 110 Last administered on 02/06/17 02:23; Admin Dose 2.5 MG; Start 01/26/17 at 15:00 Midodrine 5 mg 5 mg Q8 PRN GTB BLOOD PRESSURE SUPPORT Last administered on 01/31 15:36; Admin Dose 5 MG; Start 01/28/17 at 16:30 Sodium Chloride (NS) 1,000 ml @ 75 mls/hr [id number] IV Last administered on 20:00; Admin Dose 75 MLS/HR; Start 02/02/17 at 00:00 Enoxaparin Sodium (Lovenox) 60 mg Q24H SC Last administered on 02/07/17 00:35; Admin Dose 60 MG; Start 02/03/17 at 00:00 Nystatin (Nystatin Powder) 1 applic BID TOP Last administered on 02/07/17 08:34 ; Admin Dose 1 APPLIC; Start 02/04/17 at 12:00 Aspirin (Aspirin) 81 mg DAILY GTB Last administered on 02/07/17 08:34; Admin Dose 81 MG; Start 02/04/17 at 15:30 JOSE LOMAS Feb 07, 2017 11:45
--- NOTE | 2017-02-07 13:04 | CONS ---
Date/Time of Note Date/Time of Note DATE: 02/07/17 TIME: 13:03 Assessment/Plan Assessment/Plan Chief Complaint/Hosp Course assessment/impression: - recurrent CVA - possible aspiration, improved - encephalopathy due to CVA. CSF from 01/19/2017: WBC=3, RBC=0, glu 53, pro=61, CSF ([place] serology negative, HSV negative, cocci CF negative, encephalitis meningitis panel could not be done due to a lack of sample), serum ([place] PCR negative, crypto antigen negative, cocci CF negative, histo CF negative). my order of crypto in CSF was cancelled and no reason given - bacteremia due to CoNS, probable contaminant. 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 Pt's s/p pip/tazo (01/26/2017- 01/31/2017) Problems: Consultation Date/Type/Reason Admit Date/Time Jan 16, 2017 at 15:19 Initial Consult Date 01/17/17 Type of Consultation: ID Referring Provider: LAWRENCE PICKERING 24 HR Interval Summary Subjective hx not possible: pt non-verbal Exam/Review of Systems Vital Signs Vitals Vital Signs Date Time Temp Pulse Resp B/P Pulse Ox O2 Delivery O2 Flow Rate FiO2 02/07/17 11:27 98.0 75 16 111/71 96 02/07/17 09:29 21 Intake and Output 02/06/17 02/06/17 02/07/17 15:00 23:00 07:00 Intake Total 1700 ml 1425 ml Output Total 600 ml 1400 ml Balance 1100 ml 25 ml Exam Constitutional: frail, non-verbal Psych: confusion Head: atraumatic, normocephalic Eyes: nl conjunctiva, nl lids ENMT: nl external ears & nose Respiratory: diminished breath sounds Cardiovascular: nl pulses, regular rate and rhythm Gastrointestinal: non-tender, other (GT), soft Genitourinary - Female: other (FC) Musculoskeletal: nl extremities to inspection Extremities: No edema Neurological: confused, lethargic Skin: nl turgor Results Results 24 hrs Laboratory Tests Test 02/06/17 17:18 02/07/17 00:29 02/07/17 05:24 02/07/17 11:53 Bedside Glucose 106 127 103 118 Medications Medications Current Medications Miscellaneous Information 1 ea NOTE XX ; Start 01/17/17 at 10:00 Glucose (Glutose) 15 gm Q15M PRN PO DECREASED GLUCOSE; Start 01/17/17 at 10:00 Glucose (Glutose) 22.5 gm Q15M PRN PO DECREASED GLUCOSE; Start 01/17/17 at 10: 00 Dextrose (D50w Syringe) 25 ml Q15M PRN IV DECREASED GLUCOSE; Start 01/17/17 at 10:00 Dextrose (D50w Syringe) 50 ml Q15M PRN IV DECREASED GLUCOSE; Start 01/17/17 at 10:00 Glucagon (Glucagen) 1 mg Q15M PRN IM DECREASED GLUCOSE; Start 01/17/17 at 10:00 Glucose (Glutose) 15 gm Q15M PRN BUCCAL DECREASED GLUCOSE; Start 01/17/17 at 10 :00 Collagenase (Santyl) 1 applic DAILY TOP Last administered on 02/07/17 08:34; Admin Dose 1 APPLIC; Start 01/17/17 at 21:00 IV Flush (NS 10 ml) 10 ml PRN PRN IV IV PROTOCOL; Start 01/22/17 at 12:00 Insulin Aspart (Novolog Insulin Pen) NOVOLOG *MILD* ALGORI... Q6 SC Last administered on 01/26/17 18:02; Admin Dose 1 UNIT; Start 01/23/17 at 18:00 Miscellaneous Information (Pending Santyl Order For Wound Care) This patient dunaway... PRN PRN XX WOUND CARE; Start 01/24/17 at 07:30 Bisacodyl (Dulcolax Supp) 10 mg DAILY PRN [place] CONSTIPATION Last administered on 01/31/17 17:34; Admin Dose 10 MG; Start 01/25/17 at 16:30 Acetaminophen (Tylenol Liquid) 650 mg Q4H PRN NGT PAIN AND OR ELEVATED TEMP Last administered on 01/31/17 14:35; Admin Dose 650 MG; Start 01/26/17 at 09:00 Metoprolol Tartrate (Lopressor) 2.5 mg Q4H PRN IV HR > 110 Last administered on 02/06/17 02:23; Admin Dose 2.5 MG; Start 01/26/17 at 15:00 Midodrine 5 mg 5 mg Q8 PRN GTB BLOOD PRESSURE SUPPORT Last administered on 01/31 15:36; Admin Dose 5 MG; Start 01/28/17 at 16:30 Sodium Chloride (NS) 1,000 ml @ 75 mls/hr [id number] IV Last administered on 20:00; Admin Dose 75 MLS/HR; Start 02/02/17 at 00:00 Enoxaparin Sodium (Lovenox) 60 mg Q24H SC Last administered on 02/07/17 00:35; Admin Dose 60 MG; Start 02/03/17 at 00:00 Nystatin (Nystatin Powder) 1 applic BID TOP Last administered on 02/07/17 08:34 ; Admin Dose 1 APPLIC; Start 02/04/17 at 12:00 Aspirin (Aspirin) 81 mg DAILY GTB Last administered on 02/07/17 08:34; Admin Dose 81 MG; Start 02/04/17 at 15:30 TYE STYLES M.D. Feb 07, 2017 13:04
[2017-02-07] MEDS: SOD CHLORIDE 0.9% 1,000 ML IV SCH (14:18)
[2017-02-07] MEDS: BISACODYL 10 MG SUPP PR PRN (14:22)
--- NOTE | 2017-02-07 14:22 | CONS ---
Date/Time of Note Date/Time of Note DATE: 02/07/17 TIME: 14:20 Assessment/Plan Assessment/Plan Additional Assessment/Plan 1. Atrial fibrillation 2. Encephalopathy 3. Acute Renal failure 4. Cardiomyopathy-EF 45% 5. Cephalic vein thrombosis 6. Coagulopathy 7. Anemia Continue Metoprol PRN Continue ASA Continue midodrine Continue GI and DVT Prophylaxis Consultation Date/Type/Reason Admit Date/Time Jan 16, 2017 at 15:19 Initial Consult Date 01/26/17 Type of Consultation: ID Referring Provider: LAWRENCE PICKERING Exam/Review of Systems Vital Signs Vitals Vital Signs Date Time Temp Pulse Resp B/P Pulse Ox O2 Delivery O2 Flow Rate FiO2 02/07/17 13:53 106 02/07/17 13:45 16 100 21 02/07/17 11:27 98.0 111/71 Intake and Output 02/06/17 02/06/17 02/07/17 15:00 23:00 07:00 Intake Total 1700 ml 1425 ml Output Total 600 ml 1400 ml Balance 1100 ml 25 ml Exam Head: atraumatic, normocephalic Neck: non-tender, supple Respiratory: clear to auscultation Cardiovascular: irregular rhythm Gastrointestinal: nl liver, spleen, non-tender, soft Extremities: normal pulses Results Results 24 hrs Laboratory Tests Test 02/06/17 17:18 02/07/17 00:29 02/07/17 05:24 02/07/17 11:53 Bedside Glucose 106 127 103 118 Medications Medications Current Medications Miscellaneous Information 1 ea NOTE XX ; Start 01/17/17 at 10:00 Glucose (Glutose) 15 gm Q15M PRN PO DECREASED GLUCOSE; Start 01/17/17 at 10:00 Glucose (Glutose) 22.5 gm Q15M PRN PO DECREASED GLUCOSE; Start 01/17/17 at 10: 00 Dextrose (D50w Syringe) 25 ml Q15M PRN IV DECREASED GLUCOSE; Start 01/17/17 at 10:00 Dextrose (D50w Syringe) 50 ml Q15M PRN IV DECREASED GLUCOSE; Start 01/17/17 at 10:00 Glucagon (Glucagen) 1 mg Q15M PRN IM DECREASED GLUCOSE; Start 01/17/17 at 10:00 Glucose (Glutose) 15 gm Q15M PRN BUCCAL DECREASED GLUCOSE; Start 01/17/17 at 10 :00 Collagenase (Santyl) 1 applic DAILY TOP Last administered on 02/07/17 08:34; Admin Dose 1 APPLIC; Start 01/17/17 at 21:00 IV Flush (NS 10 ml) 10 ml PRN PRN IV IV PROTOCOL; Start 01/22/17 at 12:00 Insulin Aspart (Novolog Insulin Pen) NOVOLOG *MILD* ALGORI... Q6 SC Last administered on 01/26/17 18:02; Admin Dose 1 UNIT; Start 01/23/17 at 18:00 Miscellaneous Information (Pending Santyl Order For Wound Care) This patient dunaway... PRN PRN XX WOUND CARE; Start 01/24/17 at 07:30 Bisacodyl (Dulcolax Supp) 10 mg DAILY PRN [place] CONSTIPATION Last administered on 01/31/17 17:34; Admin Dose 10 MG; Start 01/25/17 at 16:30 Acetaminophen (Tylenol Liquid) 650 mg Q4H PRN NGT PAIN AND OR ELEVATED TEMP Last administered on 01/31/17 14:35; Admin Dose 650 MG; Start 01/26/17 at 09:00 Metoprolol Tartrate (Lopressor) 2.5 mg Q4H PRN IV HR > 110 Last administered on 02/06/17 02:23; Admin Dose 2.5 MG; Start 01/26/17 at 15:00 Midodrine 5 mg 5 mg Q8 PRN GTB BLOOD PRESSURE SUPPORT Last administered on 01/31 15:36; Admin Dose 5 MG; Start 01/28/17 at 16:30 Sodium Chloride (NS) 1,000 ml @ 75 mls/hr [id number] IV Last administered on 14:18; Admin Dose 75 MLS/HR; Start 02/02/17 at 00:00 Enoxaparin Sodium (Lovenox) 60 mg Q24H SC Last administered on 02/07/17 00:35; Admin Dose 60 MG; Start 02/03/17 at 00:00 Nystatin (Nystatin Powder) 1 applic BID TOP Last administered on 02/07/17 08:34 ; Admin Dose 1 APPLIC; Start 02/04/17 at 12:00 Aspirin (Aspirin) 81 mg DAILY GTB Last administered on 02/07/17 08:34; Admin Dose 81 MG; Start 02/04/17 at 15:30 JOSEFA WEINSTEIN M.D. Feb 07, 2017 14:22
[2017-02-08] VITALS (13 sets, daily range): BP systolic 101–131; BP diastolic 54–86; PULSE 79–129; RESP 17–20
[2017-02-08] MEDS: ENOXAPARIN 60 MG/0.6 ML SYG SC SCH
[2017-02-08] MEDS: LEVALBUTEROL (NEB) 0.63 MG/3 ML AMP HHN SCH ×4 (01:10→20:00)
[2017-02-08] MEDS: SOD CHLORIDE 0.9% 1,000 ML IV SCH ×3 (02:40→18:09)
[2017-02-08] MEDS: INSULIN ASPART [NOVOLOG] 3 ML PEN SC SCH ×4 (05:05→18:00)
[2017-02-08] MEDS: ASPIRIN 81 MG TAB GTB SCH (08:37)
[2017-02-08] MEDS: COLLAGENASE 30 GM TUBE TOP SCH (08:37)
[2017-02-08] MEDS: NYSTATIN 30 GM POWDER BTL TOP SCH ×2 (08:37→20:34)
--- NOTE | 2017-02-08 09:03 | CONS ---
Date/Time of Note Date/Time of Note DATE: 02/08/17 TIME: 09:01 Assessment/Plan Assessment/Plan Additional Assessment/Plan 1. AF-mainly rate controlled better now - will hold off on pacer given overall state. 2.Hypotension-now improved on midodrine - stable - Rx as needed, STABLE. 3.encephalopathy/ams - multifatorial 4.coagulopathy-now decreased with coumadin held - on lovenox 5. Acute Renal failure-? secondary to vanc - will monitor now 6.Leukocytosis 7. Cardiomyopathy-EF 45% 8. Cephalic vein thrombosis 9. Dysphagia s/p PEG - Rx with meds now \ Consultation Date/Type/Reason Admit Date/Time Jan 16, 2017 at 15:19 Initial Consult Date 01/26/17 Type of Consultation: ID Referring Provider: LAWRENCE PICKERING 24 HR Interval Summary Free Text/Dictation NO acute change - rate controlled - no plan for pacer now ROS: No fever, no chills, no nausea, no vomiting, no diarrhea/constipation No recent weight changes No chest pain, no PND, no orthopnea No dizziness, blurred vision No thirst, no heat or cold intolerance (per nurse) Exam/Review of Systems Vital Signs Vitals Vital Signs Date Time Temp Pulse Resp B/P Pulse Ox O2 Delivery O2 Flow Rate FiO2 02/08/17 08:22 103 02/08/17 07:52 97 21 02/08/17 07:51 16 02/08/17 07:29 98.5 114/61 Intake and Output 02/07/17 02/07/17 02/08/17 15:00 23:00 07:00 Intake Total 325 ml 1000 ml 1500 ml Output Total 900 ml 1200 ml Balance 325 ml 100 ml 300 ml Exam General: WN/WD/NAD, AOx comfortable HEENT: Unicetric/atraumatic/EOMI (does not follow commands) NECK: JVD elevated, no thyromegaly Lymph: no lymphadenopathy HEART: Ir Irregular with no S3, II/ systolic murmur at apex LUNGS: Coarse sounds ABD: soft, NT, ND, +BS : Intact Neuro: non focal SKIN: chronic changes EXT: trace edema Results Results 24 hrs Laboratory Tests Test 02/07/17 11:53 02/07/17 17:11 02/07/17 23:39 02/08/17 05:05 Bedside Glucose 118 94 103 104 Medications Medications Current Medications Miscellaneous Information 1 ea NOTE XX ; Start 01/17/17 at 10:00 Glucose (Glutose) 15 gm Q15M PRN PO DECREASED GLUCOSE; Start 01/17/17 at 10:00 Glucose (Glutose) 22.5 gm Q15M PRN PO DECREASED GLUCOSE; Start 01/17/17 at 10: 00 Dextrose (D50w Syringe) 25 ml Q15M PRN IV DECREASED GLUCOSE; Start 01/17/17 at 10:00 Dextrose (D50w Syringe) 50 ml Q15M PRN IV DECREASED GLUCOSE; Start 01/17/17 at 10:00 Glucagon (Glucagen) 1 mg Q15M PRN IM DECREASED GLUCOSE; Start 01/17/17 at 10:00 Glucose (Glutose) 15 gm Q15M PRN BUCCAL DECREASED GLUCOSE; Start 01/17/17 at 10 :00 Collagenase (Santyl) 1 applic DAILY TOP Last administered on 02/08/17 08:37; Admin Dose 1 APPLIC; Start 01/17/17 at 21:00 IV Flush (NS 10 ml) 10 ml PRN PRN IV IV PROTOCOL; Start 01/22/17 at 12:00 Insulin Aspart (Novolog Insulin Pen) NOVOLOG *MILD* ALGORI... Q6 SC Last administered on 01/26/17 18:02; Admin Dose 1 UNIT; Start 01/23/17 at 18:00 Miscellaneous Information (Pending Santyl Order For Wound Care) This patient dunaway... PRN PRN XX WOUND CARE; Start 01/24/17 at 07:30 Bisacodyl (Dulcolax Supp) 10 mg DAILY PRN [place] CONSTIPATION Last administered on 02/07/17 14:22; Admin Dose 10 MG; Start 01/25/17 at 16:30 Acetaminophen (Tylenol Liquid) 650 mg Q4H PRN NGT PAIN AND OR ELEVATED TEMP Last administered on 01/31/17 14:35; Admin Dose 650 MG; Start 01/26/17 at 09:00 Metoprolol Tartrate (Lopressor) 2.5 mg Q4H PRN IV HR > 110 Last administered on 02/06/17 02:23; Admin Dose 2.5 MG; Start 01/26/17 at 15:00 Midodrine 5 mg 5 mg Q8 PRN GTB BLOOD PRESSURE SUPPORT Last administered on 01/31 15:36; Admin Dose 5 MG; Start 01/28/17 at 16:30 Sodium Chloride (NS) 1,000 ml @ 75 mls/hr [id number] IV Last administered on 04:54; Admin Dose 75 MLS/HR; Start 02/02/17 at 00:00 Enoxaparin Sodium (Lovenox) 60 mg Q24H SC Last administered on 02/08/17 00:00; Admin Dose 60 MG; Start 02/03/17 at 00:00 Nystatin (Nystatin Powder) 1 applic BID TOP Last administered on 02/08/17 08:37 ; Admin Dose 1 APPLIC; Start 02/04/17 at 12:00 Aspirin (Aspirin) 81 mg DAILY GTB Last administered on 02/08/17 08:37; Admin Dose 81 MG; Start 02/04/17 at 15:30 YAJAIRA ALVAREZ MD Feb 08, 2017 09:03
--- NOTE | 2017-02-08 14:47 | PN ---
Date/Time of Note Date/Time of Note DATE: 02/08/17 TIME: 14:42 Assessment/Plan VTE Prophylaxis VTE Prophylaxis Intervention: SCD's Lines/Catheters [facility] ([facility] PICC Line Central line still needed: Yes Urinary Cath still in place: Yes Reason Cath still needed: urinary retention Assessment/Plan Chief Complaint/Hosp Course Patient remained afebrile, continues assessment and treatment by physical and Occupational Therapy. Assessment/Plan - Bilateral thalamic infarctions, Dr. Payne, neurology consult is appreciated. Continue aspirin - Dysphagia, status post G-tube placement by Dr. Garcia. - Atrial fibrillation with rapid ventricular response, currently rate is controlled. Dr. Armenta is following and cardiology consultation. - Thrombosis of the bilateral cephalic veins. Continue Lovenox. - Acute kidney injury, resolved. Dr. Poole is following in nephrology consultation. - History of CVA - History of hyperlipidemia - Left lower extremity, status post vascular surgery. Further recommendations based on clinical course. Plan of care discussed with Dr. Valdovinos. Problems: Exam/Review of Systems Vital Signs Vitals Vital Signs Date Time Temp Pulse Resp B/P Pulse Ox O2 Delivery O2 Flow Rate FiO2 02/08/17 13:59 98 21 02/08/17 13:57 86 20 02/08/17 11:25 98.3 101/54 Intake and Output 02/07/17 02/07/17 02/08/17 15:00 23:00 07:00 Intake Total 325 ml 1000 ml 1500 ml Output Total 900 ml 1200 ml Balance 325 ml 100 ml 300 ml Exam Constitutional: non-verbal Psych: confusion Neck: supple Respiratory: normal air movement Cardiovascular: irregular rhythm Gastrointestinal: other (G-tube), soft Extremities: normal pulses Neurological: focal weakness Results Results 24 hrs Laboratory Tests Test 02/07/17 17:11 02/07/17 23:39 02/08/17 05:05 02/08/17 12:10 Bedside Glucose 94 103 104 114 Medications Medications Current Medications Miscellaneous Information 1 ea NOTE XX ; Start 01/17/17 at 10:00 Glucose (Glutose) 15 gm Q15M PRN PO DECREASED GLUCOSE; Start 01/17/17 at 10:00 Glucose (Glutose) 22.5 gm Q15M PRN PO DECREASED GLUCOSE; Start 01/17/17 at 10: 00 Dextrose (D50w Syringe) 25 ml Q15M PRN IV DECREASED GLUCOSE; Start 01/17/17 at 10:00 Dextrose (D50w Syringe) 50 ml Q15M PRN IV DECREASED GLUCOSE; Start 01/17/17 at 10:00 Glucagon (Glucagen) 1 mg Q15M PRN IM DECREASED GLUCOSE; Start 01/17/17 at 10:00 Glucose (Glutose) 15 gm Q15M PRN BUCCAL DECREASED GLUCOSE; Start 01/17/17 at 10 :00 Collagenase (Santyl) 1 applic DAILY TOP Last administered on 02/08/17 08:37; Admin Dose 1 APPLIC; Start 01/17/17 at 21:00 IV Flush (NS 10 ml) 10 ml PRN PRN IV IV PROTOCOL; Start 01/22/17 at 12:00 Insulin Aspart (Novolog Insulin Pen) NOVOLOG *MILD* ALGORI... Q6 SC Last administered on 01/26/17 18:02; Admin Dose 1 UNIT; Start 01/23/17 at 18:00 Miscellaneous Information (Pending Santyl Order For Wound Care) This patient dunaway... PRN PRN XX WOUND CARE; Start 01/24/17 at 07:30 Bisacodyl (Dulcolax Supp) 10 mg DAILY PRN [place] CONSTIPATION Last administered on 02/07/17 14:22; Admin Dose 10 MG; Start 01/25/17 at 16:30 Acetaminophen (Tylenol Liquid) 650 mg Q4H PRN NGT PAIN AND OR ELEVATED TEMP Last administered on 01/31/17 14:35; Admin Dose 650 MG; Start 01/26/17 at 09:00 Metoprolol Tartrate (Lopressor) 2.5 mg Q4H PRN IV HR > 110 Last administered on 02/06/17 02:23; Admin Dose 2.5 MG; Start 01/26/17 at 15:00 Midodrine 5 mg 5 mg Q8 PRN GTB BLOOD PRESSURE SUPPORT Last administered on 01/31 15:36; Admin Dose 5 MG; Start 01/28/17 at 16:30 Sodium Chloride (NS) 1,000 ml @ 75 mls/hr [id number] IV Last administered on 04:54; Admin Dose 75 MLS/HR; Start 02/02/17 at 00:00 Enoxaparin Sodium (Lovenox) 60 mg Q24H SC Last administered on 02/08/17 00:00; Admin Dose 60 MG; Start 02/03/17 at 00:00 Nystatin (Nystatin Powder) 1 applic BID TOP Last administered on 02/08/17 08:37 ; Admin Dose 1 APPLIC; Start 02/04/17 at 12:00 Aspirin (Aspirin) 81 mg DAILY GTB Last administered on 02/08/17 08:37; Admin Dose 81 MG; Start 02/04/17 at 15:30 LAWRENCE PICKERING Feb 08, 2017 14:47
--- NOTE | 2017-02-08 19:04 | CONS ---
GIRISH SCHMITZ REHABILITATION SERVICES MANAGER 02/08/17 1904: Date/Time of Note Date/Time of Note DATE: 02/08/17 TIME: 18:57 Assessment/Plan Assessment/Plan Chief Complaint/Hosp Course assessment/impression: - recurrent CVA - possible aspiration, improved - encephalopathy due to CVA. CSF from 01/19/2017: WBC=3, RBC=0, glu 53, pro=61, CSF ([place] serology negative, HSV negative, cocci CF negative, encephalitis meningitis panel could not be done due to a lack of sample), serum ([place] PCR negative, crypto antigen negative, cocci CF negative, histo CF negative). my order of crypto in CSF was cancelled and no reason given - bacteremia due to CoNS, probable contaminant. 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 Pt's s/p pip/tazo (01/26/2017- 01/31/2017) Management d/w NARESH Beard and Dr. Carbajal Problems: Consultation Date/Type/Reason Admit Date/Time Jan 16, 2017 at 15:19 Initial Consult Date 01/17/17 Type of Consultation: Infectious Disease Referring Provider: LAWRENCE PICKERING 24 HR Interval Summary Free Text/Dictation Pt clinically improving and able to sit at edge of bed with PT and raise arms per d/w nursing staff. Nods yes to having pain but unable to express where pain is located. Unable to perform ROS as pt is currently asleep/lethargic. Subjective hx not possible: pt non-verbal Exam/Review of Systems Vital Signs Vitals Vital Signs Date Time Temp Pulse Resp B/P Pulse Ox O2 Delivery O2 Flow Rate FiO2 02/08/17 16:38 89 02/08/17 15:58 97.5 20 122/86 99 02/08/17 13:59 21 Intake and Output 02/07/17 02/07/17 02/08/17 15:00 23:00 07:00 Intake Total 325 ml 1000 ml 1500 ml Output Total 900 ml 1200 ml Balance 325 ml 100 ml 300 ml Exam Constitutional: frail, non-verbal, other (asleep but arousable) Head: atraumatic, normocephalic Respiratory: diminished breath sounds, No wheezing Cardiovascular: irregular rhythm Gastrointestinal: other (G-tube intact), soft, No tender Genitourinary - Female: other (Lees catheter present) Musculoskeletal: nl extremities to inspection Extremities: No edema Neurological: lethargic Skin: nl turgor Results Results 24 hrs Laboratory Tests Test 02/07/17 23:39 02/08/17 05:05 02/08/17 12:10 02/08/17 18:05 Bedside Glucose 103 104 114 112 Medications Medications Current Medications Miscellaneous Information 1 ea NOTE XX ; Start 01/17/17 at 10:00 Glucose (Glutose) 15 gm Q15M PRN PO DECREASED GLUCOSE; Start 01/17/17 at 10:00 Glucose (Glutose) 22.5 gm Q15M PRN PO DECREASED GLUCOSE; Start 01/17/17 at 10: 00 Dextrose (D50w Syringe) 25 ml Q15M PRN IV DECREASED GLUCOSE; Start 01/17/17 at 10:00 Dextrose (D50w Syringe) 50 ml Q15M PRN IV DECREASED GLUCOSE; Start 01/17/17 at 10:00 Glucagon (Glucagen) 1 mg Q15M PRN IM DECREASED GLUCOSE; Start 01/17/17 at 10:00 Glucose (Glutose) 15 gm Q15M PRN BUCCAL DECREASED GLUCOSE; Start 01/17/17 at 10 :00 Collagenase (Santyl) 1 applic DAILY TOP Last administered on 02/08/17 08:37; Admin Dose 1 APPLIC; Start 01/17/17 at 21:00 IV Flush (NS 10 ml) 10 ml PRN PRN IV IV PROTOCOL; Start 01/22/17 at 12:00 Insulin Aspart (Novolog Insulin Pen) NOVOLOG *MILD* ALGORI... Q6 SC Last administered on 01/26/17 18:02; Admin Dose 1 UNIT; Start 01/23/17 at 18:00 Miscellaneous Information (Pending Santyl Order For Wound Care) This patient dunaway... PRN PRN XX WOUND CARE; Start 01/24/17 at 07:30 Bisacodyl (Dulcolax Supp) 10 mg DAILY PRN [place] CONSTIPATION Last administered on 02/07/17 14:22; Admin Dose 10 MG; Start 01/25/17 at 16:30 Acetaminophen (Tylenol Liquid) 650 mg Q4H PRN NGT PAIN AND OR ELEVATED TEMP Last administered on 01/31/17 14:35; Admin Dose 650 MG; Start 01/26/17 at 09:00 Metoprolol Tartrate (Lopressor) 2.5 mg Q4H PRN IV HR > 110 Last administered on 02/06/17 02:23; Admin Dose 2.5 MG; Start 01/26/17 at 15:00 Midodrine 5 mg 5 mg Q8 PRN GTB BLOOD PRESSURE SUPPORT Last administered on 01/31 15:36; Admin Dose 5 MG; Start 01/28/17 at 16:30 Sodium Chloride (NS) 1,000 ml @ 75 mls/hr [id number] IV Last administered on 18:09; Admin Dose 75 MLS/HR; Start 02/02/17 at 00:00 Enoxaparin Sodium (Lovenox) 60 mg Q24H SC Last administered on 02/08/17 00:00; Admin Dose 60 MG; Start 02/03/17 at 00:00 Nystatin (Nystatin Powder) 1 applic BID TOP Last administered on 02/08/17 08:37 ; Admin Dose 1 APPLIC; Start 02/04/17 at 12:00 Aspirin (Aspirin) 81 mg DAILY GTB Last administered on 02/08/17 08:37; Admin Dose 81 MG; Start 02/04/17 at 15:30 TYE CARBAJAL M.D. 02/09/17 1243: Assessment/Plan Assessment/Plan Additional Assessment/Plan [place] attestation: I discussed the management with LUNA Schmitz and agree with above. GIRISH SCHMITZ NP Feb 08, 2017 19:04 TYE CARBAJAL M.D. Feb 09, 2017 12:43
[2017-02-09] VITALS (13 sets, daily range): BP systolic 106–138; BP diastolic 61–84; PULSE 78–122; RESP 17–18
[2017-02-09] MEDS: ENOXAPARIN 60 MG/0.6 ML SYG SC SCH (00:15)
[2017-02-09] MEDS: LEVALBUTEROL (NEB) 0.63 MG/3 ML AMP HHN SCH ×4 (01:36→20:09)
[2017-02-09] MEDS: METOPROLOL 5 MG INJ IV PRN (04:54)
[2017-02-09] MEDS: INSULIN ASPART [NOVOLOG] 3 ML PEN SC SCH ×4 (06:00→18:00)
[2017-02-09 07:53] LABS: BASOPHIL # 0.1 10^3/ul (0.0-0.1); BASOPHILS % 0.9 % (0.0-2.0); EOSINOPHILS # 0.4 10^3/ul (0.0-0.5); EOSINOPHILS % 3.4 % (0.0-7.0); HEMATOCRIT 32.8 % (37.0-47.0); HEMOGLOBIN 10.3 g/dl (12.0-16.0); LYMPHOCYTES # 1.7 10^3/ul (0.8-2.9); LYMPHOCYTES % 14.2 % (15.0-51.0); MEAN CORPUSCULAR HEMOGLOBIN 25.9 pg (29.0-33.0); MEAN CORPUSCULAR HGB CONC 31.4 g/dl (32.0-37.0); MEAN CORPUSCULAR VOLUME 82.4 fl (82.0-101.0); MEAN PLATELET VOLUME 12.4 fl (7.4-10.4); MONOCYTE # 0.6 10^3/ul (0.3-0.9); MONOCYTES % 4.7 % (0.0-11.0); NEUTROPHIL # 8.9 10^3/ul (1.6-7.5); NEUTROPHILS % 76.3 % (39.0-77.0); PLATELET COUNT 547 10^3/UL (140-415); RED BLOOD COUNT 3.98 10^6/ul (4.20-5.40); RED CELL DISTRIBUTION WIDTH 17.4 % (11.5-14.5); WHITE BLOOD COUNT 11.7 10^3/ul (4.8-10.8)
[2017-02-09 08:20] LABS: CALCIUM 9.7 mg/dl (8.4-10.2); CREATININE 0.93 mg/dl (0.44-1.00); POTASSIUM 3.9 mmol/L (3.5-5.1)
--- NOTE | 2017-02-09 09:17 | CONS ---
Date/Time of Note Date/Time of Note DATE: 02/09/17 TIME: 09:15 Assessment/Plan Assessment/Plan Additional Assessment/Plan 1. AF-mainly rate controlled better now, in low 100s - will hold off on pacer given overall state - will add small dose of BB now 2.Hypotension-now improved on midodrine - stable - Rx as needed, STABLE. 3.encephalopathy/ams - multifatorial 4.coagulopathy-now decreased with coumadin held - on lovenox - stable 5. Acute Renal failure-? secondary to vanc - will monitor now 6.Leukocytosis 7. Cardiomyopathy-EF 45% 8. Cephalic vein thrombosis 9. Dysphagia s/p PEG - Rx with meds now Consultation Date/Type/Reason Admit Date/Time Jan 16, 2017 at 15:19 Initial Consult Date 01/26/17 Type of Consultation: Infectious Disease Referring Provider: LAWRENCE PICKERING 24 HR Interval Summary Free Text/Dictation NO acute change - HR on high side - [place] add low dose bb now ROS: No fever, no chills, no nausea, no vomiting, no diarrhea/constipation No recent weight changes No chest pain, no PND, no orthopnea No dizziness, blurred vision No thirst, no heat or cold intolerance (per nurse) Exam/Review of Systems Vital Signs Vitals Vital Signs Date Time Temp Pulse Resp B/P Pulse Ox O2 Delivery O2 Flow Rate FiO2 02/09/17 08:26 122 02/09/17 07:59 97 21 02/09/17 07:57 20 02/09/17 06:55 98.4 115/61 Intake and Output 02/08/17 02/08/17 02/09/17 15:00 23:00 07:00 Intake Total 150 ml 1000 ml 1400 ml Output Total 1000 ml 2050 ml Balance 150 ml 0 ml -650 ml Exam General: WN/WD/NAD, AOx 0 HEENT: Unicetric/atraumatic/EOMI (does not follow commands) NECK: JVD elevated, no thyromegaly Lymph: no lymphadenopathy HEART: Ir Irregular with no S3, II/ systolic murmur at apex LUNGS: Coarse sounds ABD: soft, NT, ND, +BS : Intact Neuro: non focal SKIN: chronic changes EXT: trace edema Results Result Diagram: 8/8/17 0713 8/8/17 0713 Results 24 hrs Laboratory Tests Test 02/08/17 12:10 02/08/17 18:05 02/09/17 00:09 02/09/17 06:30 Bedside Glucose 114 112 128 130 Test 02/09/17 07:13 White Blood Count 11.7 H Red Blood Count 3.98 L Hemoglobin 10.3 L Hematocrit 32.8 L Mean Corpuscular Volume 82.4 Mean Corpuscular Hemoglobin 25.9 L Mean Corpuscular Hemoglobin Concent 31.4 L Red Cell Distribution Width 17.4 H Platelet Count 547 H Mean Platelet Volume 12.4 H Neutrophils % 76.3 Lymphocytes % 14.2 L Monocytes % 4.7 Eosinophils % 3.4 Basophils % 0.9 Nucleated Red Blood Cells % 0.0 Neutrophils # 8.9 H Lymphocytes # 1.7 Monocytes # 0.6 Eosinophils # 0.4 Basophils # 0.1 Nucleated Red Blood Cells # 0.0 Sodium Level 147 H Potassium Level 3.9 Chloride Level 106 Carbon Dioxide Level 26 Anion Gap 19 H Blood Urea Nitrogen 20 Creatinine 0.93 Glucose Level 105 Calcium Level 9.7 Medications Medications Current Medications Miscellaneous Information 1 ea NOTE XX ; Start 01/17/17 at 10:00 Glucose (Glutose) 15 gm Q15M PRN PO DECREASED GLUCOSE; Start 01/17/17 at 10:00 Glucose (Glutose) 22.5 gm Q15M PRN PO DECREASED GLUCOSE; Start 01/17/17 at 10: 00 Dextrose (D50w Syringe) 25 ml Q15M PRN IV DECREASED GLUCOSE; Start 01/17/17 at 10:00 Dextrose (D50w Syringe) 50 ml Q15M PRN IV DECREASED GLUCOSE; Start 01/17/17 at 10:00 Glucagon (Glucagen) 1 mg Q15M PRN IM DECREASED GLUCOSE; Start 01/17/17 at 10:00 Glucose (Glutose) 15 gm Q15M PRN BUCCAL DECREASED GLUCOSE; Start 01/17/17 at 10 :00 Collagenase (Santyl) 1 applic DAILY TOP Last administered on 02/08/17t 08:37; Admin Dose 1 APPLIC; Start 01/17/17 at 21:00 IV Flush (NS 10 ml) 10 ml PRN PRN IV IV PROTOCOL; Start 01/22/17 at 12:00 Insulin Aspart (Novolog Insulin Pen) NOVOLOG *MILD* ALGORI... Q6 SC Last administered on 01/26/17 18:02; Admin Dose 1 UNIT; Start 01/23/17 at 18:00 Miscellaneous Information (Pending [facility] Order For Wound Care) This patient dunaway... PRN PRN XX WOUND CARE; Start 01/24/17 at 07:30 Bisacodyl (Dulcolax Supp) 10 mg DAILY PRN [place] CONSTIPATION Last administered on 02/07/17 14:22; Admin Dose 10 MG; Start 01/25/17 at 16:30 Acetaminophen (Tylenol Liquid) 650 mg Q4H PRN NGT PAIN AND OR ELEVATED TEMP Last administered on 01/31/17 14:35; Admin Dose 650 MG; Start 01/26/17 at 09:00 Metoprolol Tartrate (Lopressor) 2.5 mg Q4H PRN IV HR > 110 Last administered on 02/09/17 04:54; Admin Dose 2.5 MG; Start 01/26/17 at 15:00 Midodrine 5 mg 5 mg Q8 PRN GTB BLOOD PRESSURE SUPPORT Last administered on 01/31 15:36; Admin Dose 5 MG; Start 01/28/17 at 16:30 Sodium Chloride (NS) 1,000 ml @ 75 mls/hr [id number] IV Last administered on 18:09; Admin Dose 75 MLS/HR; Start 02/02/17 at 00:00 Enoxaparin Sodium (Lovenox) 60 mg Q24H SC Last administered on 02/09/17 00:15; Admin Dose 60 MG; Start 02/03/17 at 00:00 Nystatin (Nystatin Powder) 1 applic BID TOP Last administered on 02/08/17 20:34 ; Admin Dose 1 APPLIC; Start 02/04/17 at 12:00 Aspirin (Aspirin) 81 mg DAILY GTB Last administered on 02/08/17 08:37; Admin Dose 81 MG; Start 02/04/17 at 15:30 YAJAIRA ALVAREZ MD Feb 09, 2017 09:17
[2017-02-09] MEDS: ASPIRIN 81 MG TAB GTB SCH (09:20)
[2017-02-09] MEDS: NYSTATIN 30 GM POWDER BTL TOP SCH ×2 (09:21→21:00)
[2017-02-09] MEDS: COLLAGENASE 30 GM TUBE TOP SCH (09:21)
--- NOTE | 2017-02-09 12:46 | CONS ---
Date/Time of Note Date/Time of Note DATE: 02/09/17 TIME: 12:43 Assessment/Plan Assessment/Plan Chief Complaint/Hosp Course assessment/impression: - recurrent leukocytosis - recurrent CVA - possible aspiration, improved - encephalopathy due to CVA. CSF from 01/19/2017: WBC=3, RBC=0, glu 53, pro=61, CSF ([place] serology negative, HSV negative, cocci CF negative, encephalitis meningitis panel could not be done due to a lack of sample), serum ([place] PCR negative, crypto antigen negative, cocci CF negative, histo CF negative). my order of crypto in CSF was cancelled and no reason given - bacteremia due to CoNS, probable contaminant. 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 If temp >100.4F and/or laboratory signs of infection, will re- start pip/tazo. Pt took pip/tazo (01/26/2017-01/31/2017) management d/w Pt's RN Problems: Consultation Date/Type/Reason Admit Date/Time Jan 16, 2017 at 15:19 Initial Consult Date 01/17/17 Type of Consultation: Infectious Disease Referring Provider: LAWRENCE PICKERING 24 HR Interval Summary Subjective hx not possible: pt non-verbal Exam/Review of Systems Vital Signs Vitals Vital Signs Date Time Temp Pulse Resp B/P Pulse Ox O2 Delivery O2 Flow Rate FiO2 02/09/17 12:30 103 02/09/17 12:10 97.8 18 137/66 97 02/09/17 07:59 21 Intake and Output 02/08/17 02/08/17 02/09/17 15:00 23:00 07:00 Intake Total 150 ml 1000 ml 1400 ml Output Total 1000 ml 2050 ml Balance 150 ml 0 ml -650 ml Exam Constitutional: non-verbal Psych: confusion Head: atraumatic, normocephalic Eyes: nl conjunctiva, nl lids ENMT: nl external ears & nose, nl nasal mucosa & septum Respiratory: wheezing (upper airway) Cardiovascular: nl pulses, regular rate and rhythm Gastrointestinal: non-tender, other (GT), soft Genitourinary - Female: other (FC) Musculoskeletal: nl extremities to inspection Neurological: confused, lethargic Skin: nl turgor Results Result Diagram: 02/09/17 0713 02/09/17 0713 Results 24 hrs Laboratory Tests Test 02/08/17 18:05 02/09/17 00:09 02/09/17 06:30 02/09/17 07:13 Bedside Glucose 112 128 130 White Blood Count 11.7 H Red Blood Count 3.98 L Hemoglobin 10.3 L Hematocrit 32.8 L Mean Corpuscular Volume 82.4 Mean Corpuscular Hemoglobin 25.9 L Mean Corpuscular Hemoglobin Concent 31.4 L Red Cell Distribution Width 17.4 H Platelet Count 547 H Mean Platelet Volume 12.4 H Neutrophils % 76.3 Lymphocytes % 14.2 L Monocytes % 4.7 Eosinophils % 3.4 Basophils % 0.9 Nucleated Red Blood Cells % 0.0 Neutrophils # 8.9 H Lymphocytes # 1.7 Monocytes # 0.6 Eosinophils # 0.4 Basophils # 0.1 Nucleated Red Blood Cells # 0.0 Sodium Level 147 H Potassium Level 3.9 Chloride Level 106 Carbon Dioxide Level 26 Anion Gap 19 H Blood Urea Nitrogen 20 Creatinine 0.93 Glucose Level 105 Calcium Level 9.7 Medications Medications Current Medications Miscellaneous Information 1 ea NOTE XX ; Start 01/17/17 at 10:00 Glucose (Glutose) 15 gm Q15M PRN PO DECREASED GLUCOSE; Start 01/17/17 at 10:00 Glucose (Glutose) 22.5 gm Q15M PRN PO DECREASED GLUCOSE; Start 01/17/17 at 10: 00 Dextrose (D50w Syringe) 25 ml Q15M PRN IV DECREASED GLUCOSE; Start 01/17/17 at 10:00 Dextrose (D50w Syringe) 50 ml Q15M PRN IV DECREASED GLUCOSE; Start 01/17/17 at 10:00 Glucagon (Glucagen) 1 mg Q15M PRN IM DECREASED GLUCOSE; Start 01/17/17 at 10:00 Glucose (Glutose) 15 gm Q15M PRN BUCCAL DECREASED GLUCOSE; Start 01/17/17 at 10 :00 Collagenase (Santyl) 1 applic DAILY TOP Last administered on 02/09/17 09:21; Admin Dose 1 APPLIC; Start 01/17/17 at 21:00 IV Flush (NS 10 ml) 10 ml PRN PRN IV IV PROTOCOL; Start 01/22/17 at 12:00 Insulin Aspart (Novolog Insulin Pen) NOVOLOG *MILD* ALGORI... Q6 SC Last administered on 01/26/17 18:02; Admin Dose 1 UNIT; Start 01/23/17 at 18:00 Miscellaneous Information (Pending Santyl Order For Wound Care) This patient dunaway... PRN PRN XX WOUND CARE; Start 01/24/17 at 07:30 Bisacodyl (Dulcolax Supp) 10 mg DAILY PRN [place] CONSTIPATION Last administered on 02/07/17 14:22; Admin Dose 10 MG; Start 01/25/17 at 16:30 Acetaminophen (Tylenol Liquid) 650 mg Q4H PRN NGT PAIN AND OR ELEVATED TEMP Last administered on 01/31/17 14:35; Admin Dose 650 MG; Start 01/26/17 at 09:00 Metoprolol Tartrate (Lopressor) 2.5 mg Q4H PRN IV HR > 110 Last administered on 02/09/17 04:54; Admin Dose 2.5 MG; Start 01/26/17 at 15:00 Midodrine 5 mg 5 mg Q8 PRN GTB BLOOD PRESSURE SUPPORT Last administered on 01/31 15:36; Admin Dose 5 MG; Start 01/28/17 at 16:30 Sodium Chloride (NS) 1,000 ml @ 75 mls/hr [id number] IV Last administered on 18:09; Admin Dose 75 MLS/HR; Start 02/02/17 at 00:00 Enoxaparin Sodium (Lovenox) 60 mg Q24H SC Last administered on 02/09/17 00:15; Admin Dose 60 MG; Start 02/03/17 at 00:00 Nystatin (Nystatin Powder) 1 applic BID TOP Last administered on 02/09/17 09:21 ; Admin Dose 1 APPLIC; Start 02/04/17 at 12:00 Aspirin (Aspirin) 81 mg DAILY GTB Last administered on 02/09/17 09:20; Admin Dose 81 MG; Start 02/04/17 at 15:30 TYE STYLES M.D. Feb 09, 2017 12:46
--- NOTE | 2017-02-09 12:52 | RADRPT ---
PROCEDURE: Chest Radiograph. CLINICAL INDICATION: Infiltrate TECHNIQUE: Single frontal chest radiograph. COMPARISON: Chest radiograph 02/02/2017 FINDINGS: The heart is enlarged. A left upper extremity PICC remains in place. There is mild improved aerati on of the bilateral lung bases with persistent basilar atelectasis. There is a diffuse interstitial prominence which may be related to pulmonary edema, chronic lung changes, or interstitial infiltrate s. No confluent or lobar infiltrate is seen. The bones are intact. IMPRESSION: 1. Improved aeration of the lung bases with persistent basilar atelectasis. 2. Diffuse interstitial prominence is nonspecific. 3. Cardiomegaly. RPTAT: KK .Dominick Fournier MD, MD Date Time Electronically viewed and signed by .Dominick Fournier MD, on 02/09/2017 12:51 .B/
[2017-02-09 13:52] LABS: ADD UMIC NO; UR ASCORBIC ACID 40 mg/dL (NEGATIVE); UR BILIRUBIN (Dip) NEGATIVE (NEGATIVE); UR BLOOD (Dip) NEGATIVE (NEGATIVE); UR CLARITY CLEAR (CLEAR); UR COLOR YELLOW (YELLOW); UR GLUCOSE (Dip) 1+ mg/dL (NEGATIVE); UR KETONES (Dip) NEGATIVE (NEGATIVE); UR LEUKOCYTE ESTERASE (Dip) NEGATIVE Leu/ul (NEGATIVE); UR NITRITE (Dip) NEGATIVE (NEGATIVE); UR SPECIFIC GRAVITY (Dip) 1.013 (1.003-1.030); UR TOTAL PROTEIN (Dip) NEGATIVE (NEGATIVE); UR UROBILINOGEN (Dip) NEGATIVE (NEGATIVE)
--- NOTE | 2017-02-09 15:16 | PN ---
Date/Time of Note Date/Time of Note DATE: 02/09/17 TIME: 15:12 Assessment/Plan VTE Prophylaxis VTE Prophylaxis Intervention: SCD's Lines/Catheters [facility] PICC Line Central line still needed: Yes Urinary Cath still in place: Yes Reason Cath still needed: urinary retention Assessment/Plan Chief Complaint/Hosp Course Patient's continues to have physical therapy evaluation and treatment, atrial flutter with a rate which goes above 100, continue telemetry monitoring, blood sugar is well controlled. Assessment/Plan - Bilateral thalamic infarctions,continue aspirin - Dysphagia, status post G-tube placement by Dr. Garcia. - Atrial fibrillation with rapid ventricular response. Dr. Armenta is following and cardiology consultation. - Thrombosis of the bilateral cephalic veins. Continue Lovenox. - Acute kidney injury, resolved. Dr. Poole is following in nephrology consultation. - History of CVA - History of hyperlipidemia - Left lower extremity, status post vascular surgery. Further recommendations based on clinical course. Plan of care discussed with Dr. Valdovinos. Problems: Exam/Review of Systems Vital Signs Vitals Vital Signs Date Time Temp Pulse Resp B/P Pulse Ox O2 Delivery O2 Flow Rate FiO2 02/09/17 14:05 99 21 02/09/17 14:04 70 20 02/09/17 12:10 97.8 137/66 Intake and Output 02/08/17 02/08/17 02/09/17 15:00 23:00 07:00 Intake Total 150 ml 1000 ml 1400 ml Output Total 1000 ml 2050 ml Balance 150 ml 0 ml -650 ml Exam Constitutional: non-verbal Psych: confusion Neck: supple Respiratory: normal air movement Cardiovascular: irregular rhythm Gastrointestinal: other (G-tube), soft Extremities: normal pulses Neurological: focal weakness Results Result Diagram: 02/09/17 0713 02/09/17 0713 Results 24 hrs Laboratory Tests Test 02/08/17 18:05 02/09/17 00:09 02/09/17 06:30 02/09/17 07:13 Bedside Glucose 112 128 130 White Blood Count 11.7 H Red Blood Count 3.98 L Hemoglobin 10.3 L Hematocrit 32.8 L Mean Corpuscular Volume 82.4 Mean Corpuscular Hemoglobin 25.9 L Mean Corpuscular Hemoglobin Concent 31.4 L Red Cell Distribution Width 17.4 H Platelet Count 547 H Mean Platelet Volume 12.4 H Neutrophils % 76.3 Lymphocytes % 14.2 L Monocytes % 4.7 Eosinophils % 3.4 Basophils % 0.9 Nucleated Red Blood Cells % 0.0 Neutrophils # 8.9 H Lymphocytes # 1.7 Monocytes # 0.6 Eosinophils # 0.4 Basophils # 0.1 Nucleated Red Blood Cells # 0.0 Sodium Level 147 H Potassium Level 3.9 Chloride Level 106 Carbon Dioxide Level 26 Anion Gap 19 H Blood Urea Nitrogen 20 Creatinine 0.93 Glucose Level 105 Calcium Level 9.7 Test 02/09/17 12:10 02/09/17 12:26 Urine Color YELLOW Urine Clarity CLEAR Urine pH 8.0 Urine Specific Allen 1.013 Urine Ketones NEGATIVE Urine Nitrite NEGATIVE Urine Bilirubin NEGATIVE Urine Urobilinogen NEGATIVE Urine Leukocyte Esterase NEGATIVE Urine Hemoglobin NEGATIVE Urine Glucose 1+ H Urine Total Protein NEGATIVE Bedside Glucose 108 Medications Medications Current Medications Miscellaneous Information 1 ea NOTE XX ; Start 01/17/17 at 10:00 Glucose (Glutose) 15 gm Q15M PRN PO DECREASED GLUCOSE; Start 01/17/17 at 10:00 Glucose (Glutose) 22.5 gm Q15M PRN PO DECREASED GLUCOSE; Start 01/17/17 at 10: 00 Dextrose (D50w Syringe) 25 ml Q15M PRN IV DECREASED GLUCOSE; Start 01/17/17 at 10:00 Dextrose (D50w Syringe) 50 ml Q15M PRN IV DECREASED GLUCOSE; Start 01/17/17 at 10:00 Glucagon (Glucagen) 1 mg Q15M PRN IM DECREASED GLUCOSE; Start 01/17/17 at 10:00 Glucose (Glutose) 15 gm Q15M PRN BUCCAL DECREASED GLUCOSE; Start 01/17/17 at 10 :00 Collagenase (Santyl) 1 applic DAILY TOP Last administered on 02/09/17 09:21; Admin Dose 1 APPLIC; Start 01/17/17 at 21:00 IV Flush (NS 10 ml) 10 ml PRN PRN IV IV PROTOCOL; Start 01/22/17 at 12:00 Insulin Aspart (Novolog Insulin Pen) NOVOLOG *MILD* ALGORI... Q6 SC Last administered on 01/26/17 18:02; Admin Dose 1 UNIT; Start 01/23/17 at 18:00 Miscellaneous Information (Pending Santyl Order For Wound Care) This patient dunaway... PRN PRN XX WOUND CARE; Start 01/24/17 at 07:30 Bisacodyl (Dulcolax Supp) 10 mg DAILY PRN [place] CONSTIPATION Last administered on 02/07/17 14:22; Admin Dose 10 MG; Start 01/25/17 at 16:30 Acetaminophen (Tylenol Liquid) 650 mg Q4H PRN NGT PAIN AND OR ELEVATED TEMP Last administered on 01/31/17 14:35; Admin Dose 650 MG; Start 01/26/17 at 09:00 Metoprolol Tartrate (Lopressor) 2.5 mg Q4H PRN IV HR > 110 Last administered on 02/09/17 04:54; Admin Dose 2.5 MG; Start 01/26/17 at 15:00 Midodrine 5 mg 5 mg Q8 PRN GTB BLOOD PRESSURE SUPPORT Last administered on 01/31 15:36; Admin Dose 5 MG; Start 01/28/17 at 16:30 Sodium Chloride (NS) 1,000 ml @ 75 mls/hr [id number] IV Last administered on 18:09; Admin Dose 75 MLS/HR; Start 02/02/17 at 00:00 Enoxaparin Sodium (Lovenox) 60 mg Q24H SC Last administered on 02/09/17 00:15; Admin Dose 60 MG; Start 02/03/17 at 00:00 Nystatin (Nystatin Powder) 1 applic BID TOP Last administered on 02/09/17 09:21 ; Admin Dose 1 APPLIC; Start 02/04/17 at 12:00 Aspirin (Aspirin) 81 mg DAILY GTB Last administered on 02/09/17 09:20; Admin Dose 81 MG; Start 02/04/17 at 15:30 LAWRENCE PICKERING Feb 09, 2017 15:16
[2017-02-10] VITALS (11 sets, daily range): BP systolic 95–113; BP diastolic 51–73; PULSE 89–111; RESP 18
[2017-02-10] MEDS: ENOXAPARIN 60 MG/0.6 ML SYG SC SCH (00:09)
[2017-02-10] MEDS: LEVALBUTEROL (NEB) 0.63 MG/3 ML AMP HHN SCH ×4 (01:21→19:29)
[2017-02-10] MEDS: BISACODYL 10 MG SUPP PR PRN (03:49)
[2017-02-10] MEDS: INSULIN ASPART [NOVOLOG] 3 ML PEN SC SCH ×4 (05:31→17:56)
[2017-02-10] MEDS: METOPROLOL 5 MG INJ IV PRN (07:01)
[2017-02-10] MEDS: NYSTATIN 30 GM POWDER BTL TOP SCH ×2 (07:56→22:44)
[2017-02-10] MEDS: ASPIRIN 81 MG TAB GTB SCH (07:56)
[2017-02-10] MEDS: COLLAGENASE 30 GM TUBE TOP SCH (07:57)
[2017-02-10 08:36] LABS: BASOPHIL # 0.1 10^3/ul (0.0-0.1); BASOPHILS % 0.9 % (0.0-2.0); EOSINOPHILS # 0.4 10^3/ul (0.0-0.5); EOSINOPHILS % 3.7 % (0.0-7.0); HEMATOCRIT 33.7 % (37.0-47.0); LYMPHOCYTES # 1.2 10^3/ul (0.8-2.9); LYMPHOCYTES % 11.5 % (15.0-51.0); MEAN CORPUSCULAR HEMOGLOBIN 27.2 pg (29.0-33.0); MEAN CORPUSCULAR HGB CONC 32.6 g/dl (32.0-37.0); MEAN CORPUSCULAR VOLUME 83.2 fl (82.0-101.0); MEAN PLATELET VOLUME 12.6 fl (7.4-10.4); MONOCYTE # 0.4 10^3/ul (0.3-0.9); MONOCYTES % 3.5 % (0.0-11.0); NEUTROPHIL # 8.6 10^3/ul (1.6-7.5); NEUTROPHILS % 79.9 % (39.0-77.0); PLATELET COUNT 533 10^3/UL (140-415); RED BLOOD COUNT 4.05 10^6/ul (4.20-5.40); RED CELL DISTRIBUTION WIDTH 17.4 % (11.5-14.5); WHITE BLOOD COUNT 10.7 10^3/ul (4.8-10.8)
[2017-02-10 09:02] LABS: CALCIUM 9.9 mg/dl (8.4-10.2); CREATININE 0.93 mg/dl (0.44-1.00); POTASSIUM 4.1 mmol/L (3.5-5.1)
--- NOTE | 2017-02-10 11:47 | CONS ---
Date/Time of Note Date/Time of Note DATE: 02/10/17 TIME: 11:45 Assessment/Plan Assessment/Plan Chief Complaint/Hosp Course IMP: 1. AF-mainly rate controlled/Trop negative x 3. Had pause x 3.7 seconds 01/30 on standing IVP BB. No recurrence since decrease in IVP BB. Now having some mild RVR to low 100's 2.Hypotension-now improved on midodrine 3.encephalopathy/ams 4.coagulopathy-now decreased with coumadin held 5. Acute Renal failure-? secondary to vanc 6.Leukocytosis 7. Cardiomyopathy-EF 45% 8. Cephalic vein thrombosis 9. Dysphagia s/p PEG Recc: -Tele -serial ecg's -Lovenox -Continue keppra/abx's/acyclovir -Follow MS closely with ongoing neuro eval -IVP BB for rate control PRN and follow for recurrent pause -PRN midodrine for low BP -Possible need for PPM will follow/stable at this time-no definite indication -Now resumed on aspirin per neuro -will start low dose BB as tolerated Problems: Consultation Date/Type/Reason Admit Date/Time Jan 16, 2017 at 15:19 Initial Consult Date 01/17/17 Type of Consultation: cardiology Reason for Consultation AF Referring Provider: LAWRENCE PICKERING Exam/Review of Systems Vital Signs Vitals Vital Signs Date Time Temp Pulse Resp B/P Pulse Ox O2 Delivery O2 Flow Rate FiO2 02/10/17 11:05 97.6 116 18 95/54 97 02/10/17 08:19 21 Intake and Output 02/09/17 02/09/17 02/10/17 15:00 23:00 07:00 Intake Total 1300 ml 1000 ml Output Total 700 ml 1000 ml Balance 600 ml 0 ml Exam Review of Systems: CONSTITUTIONAL: No fevers, chills. PULMONARY: No sob CARDIOVASCULAR: No chest pain/palpitations GASTROINTESTINAL: No nausea/vomiting. GENITOURINARY: No hematuria/dysuria. MUSCULOSKELETAL: No myagias/arthalgias. PSYCHIATRIC: The patient denies depression. NEUROLOGIC: encephalopathic Constitutional: alert Psych: no complaints Head: normocephalic ENMT: mucosa pink and moist Neck: jvd (9 cm water), supple Respiratory: diminished breath sounds (at bases/B) Cardiovascular: irregular rhythm Gastrointestinal: non-tender, soft Musculoskeletal: muscle weakness (generalized) Extremities: edema (none) Neurological: other (encephalopathic) Results Result Diagram: 02/10/17 0751 02/10/17 0751 Results 24 hrs Laboratory Tests Test 02/09/17 12:10 02/09/17 12:26 02/09/17 18:03 02/10/17 00:00 Urine Color YELLOW Urine Clarity CLEAR Urine pH 8.0 Urine Specific [place] 1.013 Urine Ketones NEGATIVE Urine Nitrite NEGATIVE Urine Bilirubin NEGATIVE Urine Urobilinogen NEGATIVE Urine Leukocyte Esterase NEGATIVE Urine Hemoglobin NEGATIVE Urine Glucose 1+ H Urine Total Protein NEGATIVE Bedside Glucose 108 122 111 Test 02/10/17 05:31 02/10/17 07:51 Bedside Glucose 116 White Blood Count 10.7 Red Blood Count 4.05 L Hemoglobin 11.0 L Hematocrit 33.7 L Mean Corpuscular Volume 83.2 Mean Corpuscular Hemoglobin 27.2 L Mean Corpuscular Hemoglobin Concent 32.6 Red Cell Distribution Width 17.4 H Platelet Count 533 H Mean Platelet Volume 12.6 H Neutrophils % 79.9 H Lymphocytes % 11.5 L Monocytes % 3.5 Eosinophils % 3.7 Basophils % 0.9 Nucleated Red Blood Cells % 0.0 Neutrophils # 8.6 H Lymphocytes # 1.2 Monocytes # 0.4 Eosinophils # 0.4 Basophils # 0.1 Nucleated Red Blood Cells # 0.0 Sodium Level 145 H Potassium Level 4.1 Chloride Level 104 Carbon Dioxide Level 26 Anion Gap 19 H Blood Urea Nitrogen 27 H Creatinine 0.93 Glucose Level 129 Calcium Level 9.9 Medications Medications Current Medications Miscellaneous Information 1 ea NOTE XX ; Start 01/17/17 at 10:00 Glucose (Glutose) 15 gm Q15M PRN PO DECREASED GLUCOSE; Start 01/17/17 at 10:00 Glucose (Glutose) 22.5 gm Q15M PRN PO DECREASED GLUCOSE; Start 01/17/17 at 10: 00 Dextrose (D50w Syringe) 25 ml Q15M PRN IV DECREASED GLUCOSE; Start 01/17/17 at 10:00 Dextrose (D50w Syringe) 50 ml Q15M PRN IV DECREASED GLUCOSE; Start 01/17/17 at 10:00 Glucagon (Glucagen) 1 mg Q15M PRN IM DECREASED GLUCOSE; Start 01/17/17 at 10:00 Glucose (Glutose) 15 gm Q15M PRN BUCCAL DECREASED GLUCOSE; Start 01/17/17 at 10 :00 Collagenase (Santyl) 1 applic DAILY TOP Last administered on 02/10/17 07:57; Admin Dose 1 APPLIC; Start 01/17/17 at 21:00 IV Flush (NS 10 ml) 10 ml PRN PRN IV IV PROTOCOL; Start 01/22/17 at 12:00 Insulin Aspart (Novolog Insulin Pen) NOVOLOG *MILD* ALGORI... Q6 SC Last administered on 01/26/17 18:02; Admin Dose 1 UNIT; Start 01/23/17 at 18:00 Miscellaneous Information (Pending Santyl Order For Wound Care) This patient dunaway... PRN PRN XX WOUND CARE; Start 01/24/17 at 07:30 Bisacodyl (Dulcolax Supp) 10 mg DAILY PRN [place] CONSTIPATION Last administered on 02/10/17 03:49; Admin Dose 10 MG; Start 01/25/17 at 16:30 Acetaminophen (Tylenol Liquid) 650 mg Q4H PRN NGT PAIN AND OR ELEVATED TEMP Last administered on 01/31/17 14:35; Admin Dose 650 MG; Start 01/26/17 at 09:00 Metoprolol Tartrate (Lopressor) 2.5 mg Q4H PRN IV HR > 110 Last administered on 02/10/17 07:01; Admin Dose 2.5 MG; Start 01/26/17 at 15:00 Midodrine (Proamatine) 5 mg Q8 PRN GTB BLOOD PRESSURE SUPPORT Last administered on 01/31/17 15:36; Admin Dose 5 MG; Start 01/28/17 at 16:30 Enoxaparin Sodium (Lovenox) 60 mg Q24H SC Last administered on 02/10/17 00:09; Admin Dose 60 MG; Start 02/03/17 at 00:00 Nystatin (Nystatin Powder) 1 applic BID TOP Last administered on 02/10/17 07:56 ; Admin Dose 1 APPLIC; Start 02/04/17 at 12:00 Aspirin (Aspirin) 81 mg DAILY GTB Last administered on 02/10/17 07:56; Admin Dose 81 MG; Start 02/04/17 at 15:30 MINOO REY Feb 10, 2017 11:46
--- NOTE | 2017-02-10 12:07 | CONS ---
[facility] HCIS Consult Follow up SOAP Patient Name: Nilda Mcmullen Unit Number: [id number] Date of : 1955 Patient Status: Admitted Inpatient Attending Doctor: Kana Valdovinos MD Edit: TYE CARBAJAL M.D. on 02/11/17 @ 16:11 [place] attestation: I discussed the management with LUNA De Jesus and agree with her recommendations. Date/Time of Note Date/Time of Note DATE: 02/10/17 TIME: 11:46 Consult Date/Type/Reason Admit Date/Time Jan 16, 2017 at 15:19 Initial Consult Date 01/26/17 Type of Consultation: Infectious Disease Ordering Provider: LAWRENCE PICKERING Subjective unable, opens eyes and goes back to sleep Objective Vital Signs Date Time Temp Pulse Resp B/P Pulse Ox O2 Delivery O2 Flow Rate FiO2 02/10/17 11:05 97.6 116 18 95/54 97 02/10/17 08:19 21 Intake and Output 02/09/17 02/09/17 02/10/17 15:00 23:00 07:00 Intake Total 1300 ml 1000 ml Output Total 700 ml 1000 ml Balance 600 ml 0 ml Exam Constitutional: frail, non-verbal, asleep but arouseable Head: atraumatic, normocephalic Respiratory: clear anteriorly, no wheezing Cardiovascular: irregular rhythm Gastrointestinal: soft, non-distended, non-tender, G-tube in place, TF infusing Genitourinary - Lees catheter present Musculoskeletal: normal extremities to inspection Extremities: Warm, dry, no edema, Piccline RUE, no e/o infection Neurological: lethargic, generalized weakness >right side Skin: warm, dry, normal turgor Results/Medications Result Diagram: 02/10/17 0751 02/10/17 0751 Results 24 hrs Laboratory Tests Test 02/09/17 12:10 02/09/17 12:26 02/09/17 18:03 02/10/17 00:00 Urine Color YELLOW Urine Clarity CLEAR Urine pH 8.0 Urine Specific [place] 1.013 Urine Ketones NEGATIVE Urine Nitrite NEGATIVE Urine Bilirubin NEGATIVE Urine Urobilinogen NEGATIVE Urine Leukocyte Esterase NEGATIVE Urine Hemoglobin NEGATIVE Urine Glucose 1+ H Urine Total Protein NEGATIVE Bedside Glucose 108 122 111 Test 02/10/17 05:31 02/10/17 07:51 Bedside Glucose 116 White Blood Count 10.7 Red Blood Count 4.05 L Hemoglobin 11.0 L Hematocrit 33.7 L Mean Corpuscular Volume 83.2 Mean Corpuscular Hemoglobin 27.2 L Mean Corpuscular Hemoglobin Concent 32.6 Red Cell Distribution Width 17.4 H Platelet Count 533 H Mean Platelet Volume 12.6 H Neutrophils % 79.9 H Lymphocytes % 11.5 L Monocytes % 3.5 Eosinophils % 3.7 Basophils % 0.9 Nucleated Red Blood Cells % 0.0 Neutrophils # 8.6 H Lymphocytes # 1.2 Monocytes # 0.4 Eosinophils # 0.4 Basophils # 0.1 Nucleated Red Blood Cells # 0.0 Sodium Level 145 H Potassium Level 4.1 Chloride Level 104 Carbon Dioxide Level 26 Anion Gap 19 H Blood Urea Nitrogen 27 H Creatinine 0.93 Glucose Level 129 Calcium Level 9.9 Medications Current Medications Miscellaneous Information 1 ea NOTE XX ; Start 01/17/17 at 10:00 Glucose (Glutose) 15 gm Q15M PRN PO DECREASED GLUCOSE; Start 01/17/17 at 10:00 Glucose (Glutose) 22.5 gm Q15M PRN PO DECREASED GLUCOSE; Start 01/17/17 at 10: 00 Dextrose (D50w Syringe) 25 ml Q15M PRN IV DECREASED GLUCOSE; Start 01/17/17 at 10:00 Dextrose (D50w Syringe) 50 ml Q15M PRN IV DECREASED GLUCOSE; Start 01/17/17 at 10:00 Glucagon (Glucagen) 1 mg Q15M PRN IM DECREASED GLUCOSE; Start 01/17/17 at 10:00 Glucose (Glutose) 15 gm Q15M PRN BUCCAL DECREASED GLUCOSE; Start 01/17/17 at 10 :00 Collagenase (Santyl) 1 applic DAILY TOP Last administered on 02/10/17t 07:57; Admin Dose 1 APPLIC; Start 01/17/17 at 21:00 IV Flush (NS 10 ml) 10 ml PRN PRN IV IV PROTOCOL; Start 01/22/17 at 12:00 Insulin Aspart (Novolog Insulin Pen) NOVOLOG *MILD* ALGORI... Q6 SC Last administered on 01/26/17 18:02; Admin Dose 1 UNIT; Start 01/23/17 at 18:00 Miscellaneous Information (Pending Santyl Order For Wound Care) This patient dunaway... PRN PRN XX WOUND CARE; Start 01/24/17 at 07:30 Bisacodyl (Dulcolax Supp) [address] [place] CONSTIPATION Last administered on 02/10/17 03:49; Admin Dose 10 MG; Start 01/25/17 at 16:30 Acetaminophen (Tylenol Liquid) 650 mg Q4H PRN NGT PAIN AND OR ELEVATED TEMP Last administered on 01/31/17 14:35; Admin Dose 650 MG; Start 01/26/17 at 09:00 Metoprolol Tartrate (Lopressor) 2.5 mg Q4H PRN IV HR > 110 Last administered on 02/10/17 07:01; Admin Dose 2.5 MG; Start 01/26/17 at 15:00 Midodrine (Proamatine) 5 mg Q8 PRN GTB BLOOD PRESSURE SUPPORT Last administered on 01/31/17 15:36; Admin Dose 5 MG; Start 01/28/17 at 16:30 Enoxaparin Sodium (Lovenox) 60 mg Q24H SC Last administered on 02/10/17 00:09; Admin Dose 60 MG; Start 02/03/17 at 00:00 Nystatin (Nystatin Powder) 1 applic BID TOP Last administered on 02/10/17 07:56 ; Admin Dose 1 APPLIC; Start 02/04/17 at 12:00 Aspirin (Aspirin) 81 mg DAILY GTB Last administered on 02/10/17 07:56; Admin Dose 81 MG; Start 02/04/17 at 15:30 Assessment/Plan Chief Complaint/Hosp Course Assessment/impression: - recurrent leukocytosis - recurrent CVA - possible aspiration, improved - encephalopathy due to CVA. CSF from 01/19/2017: WBC=3, RBC=0, glu 53, pro=61, CSF ([place] serology negative, HSV negative, cocci CF negative, encephalitis meningitis panel could not be done due to a lack of sample), serum ([place] PCR negative, crypto antigen negative, cocci CF negative, histo CF negative). my order of crypto in CSF was cancelled and no reason given - bacteremia due to CoNS, probable contaminant. Transthoracic echo on 01/16/2017 did not reveal valvular vegetation - h/o CVA - MARIELA - h/o rheumatic heart disease (probable rheumatic severe MS on transthoracic echo) - A fib - h/o DVT - h/o LLE ischemia s/p thrombolysis and subsequent open thrombectomy and fasciotomy at [facility] 09/2015 - h/o thrombus on DEBBIE per records from [facility] Recommendations: - Panculture if temp >100.4F, will re-start Pip/Tazo if any signs of infection - Continue to monitor off abx Care and management discussed with NARESH Simon and DR. Carbajal Problems: Additional Assessment/Plan Opens eyes with noxious stimulus CLAUDY DE JESUS Feb 10, 2017 11:56
--- NOTE | 2017-02-10 13:47 | PN ---
Date/Time of Note Date/Time of Note DATE: 02/10/17 TIME: 13:43 Assessment/Plan VTE Prophylaxis VTE Prophylaxis Intervention: SCD's Lines/Catheters IV Catheter Type (from [facility]): PICC Line Central line still needed: Yes Urinary Cath still in place: Yes Reason Cath still needed: urinary retention Assessment/Plan Chief Complaint/Hosp Course Patient continues to have atrial flutter atrial fibrillation with rate above 100 , discussed with Dr. Armenta, cardiology, continue telemetry monitoring, patient started on beta-blockers, no significant change in neurological status. Assessment/Plan - Bilateral thalamic infarctions,continue aspirin. - Dysphagia, status post G-tube placement by Dr. Garcia. - Atrial fibrillation with rapid ventricular response. Dr. Armenta is following and cardiology consultation. - Thrombosis of the bilateral cephalic veins. Continue Lovenox. - Acute kidney injury, resolved. - History of CVA - History of hyperlipidemia - Left lower extremity, status post vascular surgery. Further recommendations based on clinical course. Plan of care discussed with Dr. Valdovinos. Problems: Exam/Review of Systems Vital Signs Vitals Vital Signs Date Time Temp Pulse Resp B/P Pulse Ox O2 Delivery O2 Flow Rate FiO2 02/10/17 13:36 49 18 98 21 02/10/17 11:05 97.6 95/54 Intake and Output 02/09/17 02/09/17 02/10/17 15:00 23:00 07:00 Intake Total 1300 ml 1000 ml Output Total 700 ml 1000 ml Balance 600 ml 0 ml Exam Constitutional: non-verbal Psych: confusion Neck: supple Respiratory: normal air movement Cardiovascular: irregular rhythm Gastrointestinal: other (G-tube), soft Extremities: normal pulses Neurological: focal weakness Results Result Diagram: 02/10/17 0751 02/10/17 0751 Results 24 hrs Laboratory Tests Test 02/09/17 18:03 02/10/17 00:00 02/10/17 05:31 02/10/17 07:51 Bedside Glucose 122 111 116 White Blood Count 10.7 Red Blood Count 4.05 L Hemoglobin 11.0 L Hematocrit 33.7 L Mean Corpuscular Volume 83.2 Mean Corpuscular Hemoglobin 27.2 L Mean Corpuscular Hemoglobin Concent 32.6 Red Cell Distribution Width 17.4 H Platelet Count 533 H Mean Platelet Volume 12.6 H Neutrophils % 79.9 H Lymphocytes % 11.5 L Monocytes % 3.5 Eosinophils % 3.7 Basophils % 0.9 Nucleated Red Blood Cells % 0.0 Neutrophils # 8.6 H Lymphocytes # 1.2 Monocytes # 0.4 Eosinophils # 0.4 Basophils # 0.1 Nucleated Red Blood Cells # 0.0 Sodium Level 145 H Potassium Level 4.1 Chloride Level 104 Carbon Dioxide Level 26 Anion Gap 19 H Blood Urea Nitrogen 27 H Creatinine 0.93 Glucose Level 129 Calcium Level 9.9 Test 02/10/17 12:51 Bedside Glucose 114 Medications Medications Current Medications Miscellaneous Information 1 ea NOTE XX ; Start 01/17/17 at 10:00 Glucose (Glutose) 15 gm Q15M PRN PO DECREASED GLUCOSE; Start 01/17/17 at 10:00 Glucose (Glutose) 22.5 gm Q15M PRN PO DECREASED GLUCOSE; Start 01/17/17 at 10: 00 Dextrose (D50w Syringe) 25 ml Q15M PRN IV DECREASED GLUCOSE; Start 01/17/17 at 10:00 Dextrose (D50w Syringe) 50 ml Q15M PRN IV DECREASED GLUCOSE; Start 01/17/17 at 10:00 Glucagon (Glucagen) 1 mg Q15M PRN IM DECREASED GLUCOSE; Start 01/17/17 at 10:00 Glucose (Glutose) 15 gm Q15M PRN BUCCAL DECREASED GLUCOSE; Start 01/17/17 at 10 :00 Collagenase (Santyl) 1 applic DAILY TOP Last administered on 02/10/17 07:57; Admin Dose 1 APPLIC; Start 01/17/17 at 21:00 IV Flush (NS 10 ml) 10 ml PRN PRN IV IV PROTOCOL; Start 01/22/17 at 12:00 Insulin Aspart (Novolog Insulin Pen) NOVOLOG *MILD* ALGORI... Q6 SC Last administered on 01/26/17 18:02; Admin Dose 1 UNIT; Start 01/23/17 at 18:00 Miscellaneous Information (Pending Santyl Order For Wound Care) This patient dunaway... PRN PRN XX WOUND CARE; Start 01/24/17 at 07:30 Bisacodyl (Dulcolax Supp) 10 mg DAILY PRN [place] CONSTIPATION Last administered on 02/10/17 03:49; Admin Dose 10 MG; Start 01/25/17 at 16:30 Acetaminophen (Tylenol Liquid) 650 mg Q4H PRN NGT PAIN AND OR ELEVATED TEMP Last administered on 01/31/17 14:35; Admin Dose 650 MG; Start 01/26/17 at 09:00 Metoprolol Tartrate (Lopressor) 2.5 mg Q4H PRN IV HR > 110 Last administered on 02/10/17 07:01; Admin Dose 2.5 MG; Start 01/26/17 at 15:00 Midodrine (Proamatine) 5 mg Q8 PRN GTB BLOOD PRESSURE SUPPORT Last administered on 01/31/17 15:36; Admin Dose 5 MG; Start 01/28/17 at 16:30 Enoxaparin Sodium (Lovenox) 60 mg Q24H SC Last administered on 02/10/17 00:09; Admin Dose 60 MG; Start 02/03/17 at 00:00 Nystatin (Nystatin Powder) 1 applic BID TOP Last administered on 02/10/17 07:56 ; Admin Dose 1 APPLIC; Start 02/04/17 at 12:00 Aspirin (Aspirin) 81 mg DAILY GTB Last administered on 02/10/17 07:56; Admin Dose 81 MG; Start 02/04/17 at 15:30 Metoprolol Tartrate (Lopressor) 25 mg BID PO ; Start 02/10/17 at 21:00 LAWRENCE PICKERING Feb 10, 2017 13:46
[2017-02-10] MEDS: METOPROLOL 25 MG TAB PO SCH (21:00)
[2017-02-11] VITALS (12 sets, daily range): BP systolic 98–123; BP diastolic 56–82; PULSE 81–110; RESP 16–22
[2017-02-11] MEDS: ENOXAPARIN 60 MG/0.6 ML SYG SC SCH ×2 (00:13→23:49)
[2017-02-11] MEDS: LEVALBUTEROL (NEB) 0.63 MG/3 ML AMP HHN SCH ×4 (01:11→19:59)
[2017-02-11] MEDS: INSULIN ASPART [NOVOLOG] 3 ML PEN SC SCH ×5 (05:06→23:45)
[2017-02-11 07:15] LABS: BASOPHIL # 0.1 10^3/ul (0.0-0.1); BASOPHILS % 1.2 % (0.0-2.0); EOSINOPHILS # 0.5 10^3/ul (0.0-0.5); EOSINOPHILS % 5.5 % (0.0-7.0); HEMATOCRIT 33.9 % (37.0-47.0); HEMOGLOBIN 10.8 g/dl (12.0-16.0); LYMPHOCYTES # 1.6 10^3/ul (0.8-2.9); MEAN CORPUSCULAR HEMOGLOBIN 26.3 pg (29.0-33.0); MEAN CORPUSCULAR HGB CONC 31.9 g/dl (32.0-37.0); MEAN CORPUSCULAR VOLUME 82.5 fl (82.0-101.0); MEAN PLATELET VOLUME 12.5 fl (7.4-10.4); MONOCYTE # 0.6 10^3/ul (0.3-0.9); MONOCYTES % 7.1 % (0.0-11.0); NEUTROPHIL # 5.3 10^3/ul (1.6-7.5); NEUTROPHILS % 65.6 % (39.0-77.0); PLATELET COUNT 508 10^3/UL (140-415); RED BLOOD COUNT 4.11 10^6/ul (4.20-5.40); RED CELL DISTRIBUTION WIDTH 17.7 % (11.5-14.5); WHITE BLOOD COUNT 8.1 10^3/ul (4.8-10.8)
[2017-02-11 07:42] LABS: CREATININE 0.94 mg/dl (0.44-1.00); POTASSIUM 4.1 mmol/L (3.5-5.1)
[2017-02-11] MEDS: ASPIRIN 81 MG TAB GTB SCH (08:32)
[2017-02-11] MEDS: NYSTATIN 30 GM POWDER BTL TOP SCH ×2 (08:33→20:24)
[2017-02-11] MEDS: METOPROLOL 25 MG TAB PO SCH ×2 (08:33→20:23)
[2017-02-11] MEDS: COLLAGENASE 30 GM TUBE TOP SCH (08:33)
--- NOTE | 2017-02-11 12:07 | CONS ---
Date/Time of Note Date/Time of Note DATE: 02/11/17 TIME: 12:03 Assessment/Plan Assessment/Plan Chief Complaint/Hosp Course IMP: 1. AF-mainly rate controlled/Trop negative x 3. Had pause x 3.7 seconds 01/30 on standing IVP BB. No recurrence since decrease in IVP BB. Now overall improved HR 2.Hypotension-now improved on midodrine 3.encephalopathy/ams 4.coagulopathy-now decreased with coumadin held 5. Acute Renal failure-? secondary to vanc 6.Leukocytosis 7. Cardiomyopathy-EF 45% 8. Cephalic vein thrombosis 9. Dysphagia s/p PEG Recc: -IF HR remain controlled then ok for transfer to med-surg -serial ecg's -Lovenox -continue low dose BB -Continue keppra/abx's/acyclovir -Follow MS closely with ongoing neuro eval -PRN midodrine for low BP -Possible need for PPM will follow/stable at this time-no definite indication -Now resumed on aspirin per neuro Problems: Consultation Date/Type/Reason Admit Date/Time Jan 16, 2017 at 15:19 Initial Consult Date 01/17/17 Type of Consultation: cardiology Reason for Consultation AF Referring Provider: LAWRENCE PICKERING Exam/Review of Systems Vital Signs Vitals Vital Signs Date Time Temp Pulse Resp B/P Pulse Ox O2 Delivery O2 Flow Rate FiO2 02/11/17 11:07 98.1 89 20 100/66 98 02/11/17 07:46 21 Intake and Output 02/10/17 02/10/17 02/11/17 15:00 23:00 07:00 Intake Total 950 ml 950 ml Output Total 500 ml 1500 ml Balance 450 ml -550 ml Exam Review of Systems: CONSTITUTIONAL: No fevers, chills. PULMONARY: No sob CARDIOVASCULAR: No chest pain/palpitations GASTROINTESTINAL: No nausea/vomiting. GENITOURINARY: No hematuria/dysuria. MUSCULOSKELETAL: No myagias/arthalgias. PSYCHIATRIC: The patient denies depression. NEUROLOGIC: encephalopathic Constitutional: other (encephalopathy) Psych: no complaints Head: normocephalic ENMT: mucosa pink and moist Neck: jvd, supple Respiratory: diminished breath sounds (at bases/B) Cardiovascular: regular rate and rhythm Gastrointestinal: non-tender, soft Musculoskeletal: muscle tone (normal) Extremities: edema (none) Results Result Diagram: 02/11/17 0634 02/11/17 0634 Results 24 hrs Laboratory Tests Test 02/10/17 12:51 02/10/17 17:49 02/11/17 00:20 02/11/17 05:04 Bedside Glucose 114 118 127 107 Test 02/11/17 06:34 02/11/17 11:56 White Blood Count 8.1 # Red Blood Count 4.11 L Hemoglobin 10.8 L Hematocrit 33.9 L Mean Corpuscular Volume 82.5 Mean Corpuscular Hemoglobin 26.3 L Mean Corpuscular Hemoglobin Concent 31.9 L Red Cell Distribution Width 17.7 H Platelet Count 508 H Mean Platelet Volume 12.5 H Neutrophils % 65.6 Lymphocytes % 20.0 Monocytes % 7.1 Eosinophils % 5.5 Basophils % 1.2 Nucleated Red Blood Cells % 0.0 Neutrophils # 5.3 Lymphocytes # 1.6 Monocytes # 0.6 Eosinophils # 0.5 Basophils # 0.1 Nucleated Red Blood Cells # 0.0 Sodium Level 145 H Potassium Level 4.1 Chloride Level 102 Carbon Dioxide Level 27 Anion Gap 20 H Blood Urea Nitrogen 27 H Creatinine 0.94 Glucose Level 112 Calcium Level 10.0 Bedside Glucose 106 Medications Medications Current Medications Miscellaneous Information 1 ea NOTE XX ; Start 01/17/17 at 10:00 Glucose (Glutose) 15 gm Q15M PRN PO DECREASED GLUCOSE; Start 01/17/17 at 10:00 Glucose (Glutose) 22.5 gm Q15M PRN PO DECREASED GLUCOSE; Start 01/17/17 at 10: 00 Dextrose (D50w Syringe) 25 ml Q15M PRN IV DECREASED GLUCOSE; Start 01/17/17 at 10:00 Dextrose (D50w Syringe) 50 ml Q15M PRN IV DECREASED GLUCOSE; Start 01/17/17 at 10:00 Glucagon (Glucagen) 1 mg Q15M PRN IM DECREASED GLUCOSE; Start 01/17/17 at 10:00 Glucose (Glutose) 15 gm Q15M PRN BUCCAL DECREASED GLUCOSE; Start 01/17/17 at 10 :00 Collagenase (Santyl) 1 applic DAILY TOP Last administered on 02/11/17t 08:33; Admin Dose 1 APPLIC; Start 01/17/17 at 21:00 IV Flush (NS 10 ml) 10 ml PRN PRN IV IV PROTOCOL; Start 01/22/17 at 12:00 Insulin Aspart (Novolog Insulin Pen) NOVOLOG *MILD* ALGORI... Q6 SC Last administered on 01/26/17 18:02; Admin Dose 1 UNIT; Start 01/23/17 at 18:00 Miscellaneous Information (Pending Santyl Order For Wound Care) This patient dunaway... PRN PRN XX WOUND CARE; Start 01/24/17 at 07:30 Bisacodyl (Dulcolax Supp) 10 mg DAILY PRN [place] CONSTIPATION Last administered on 02/10/17 03:49; Admin Dose 10 MG; Start 01/25/17 at 16:30 Acetaminophen (Tylenol Liquid) 650 mg Q4H PRN NGT PAIN AND OR ELEVATED TEMP Last administered on 01/31/17 14:35; Admin Dose 650 MG; Start 01/26/17 at 09:00 Metoprolol Tartrate (Lopressor) 2.5 mg Q4H PRN IV HR > 110 Last administered on 02/10/17 07:01; Admin Dose 2.5 MG; Start 01/26/17 at 15:00 Midodrine (Proamatine) 5 mg Q8 PRN GTB BLOOD PRESSURE SUPPORT Last administered on 01/31/17 15:36; Admin Dose 5 MG; Start 01/28/17 at 16:30 Enoxaparin Sodium (Lovenox) 60 mg Q24H SC Last administered on 02/11/17 00:13 ; Admin Dose 60 MG; Start 02/03/17 at 00:00 Nystatin (Nystatin Powder) 1 applic BID TOP Last administered on 02/11/17 08: 33; Admin Dose 1 APPLIC; Start 02/04/17 at 12:00 Aspirin (Aspirin) 81 mg DAILY GTB Last administered on 02/11/17 08:32; Admin Dose 81 MG; Start 02/04/17 at 15:30 Metoprolol Tartrate (Lopressor) 25 mg BID PO Last administered on 02/11/17 08: 33; Admin Dose 25 MG; Start 02/10/17 at 21:00 MINOO REY Feb 11, 2017 12:07
--- NOTE | 2017-02-11 14:32 | PN ---
Date/Time of Note Date/Time of Note DATE: 02/11/17 TIME: 14:28 Assessment/Plan VTE Prophylaxis VTE Prophylaxis Intervention: other Lines/Catheters IV C[facility]ter Type (from [facility]): PICC Line Central line still needed: Yes Urinary Cath still in place: Yes Reason Cath still needed: urinary retention Assessment/Plan Assessment/Plan - Bilateral thalamic infarctions,continue aspirin. - Dysphagia, status post G-tube placement by Dr. Garcia. - Atrial fibrillation with rapid ventricular response. Dr. Armenta is following and cardiology consultation. - Thrombosis of the bilateral cephalic veins. Continue Lovenox. - Acute kidney injury, resolved. - History of CVA - History of hyperlipidemia - Left lower extremity, status post vascular surgery. SNF transfer planning when stable. Further recommendations based on clinical course. Plan of care discussed with Dr. Valdovinos. Subjective 24 Hr Interval Summary Free Text/Dictation afebrile, atrial fibrillation with rate less than 100, Dr. Armenta, cardiology following, , continue telemetry monitoring, beta-blockers, no significant change in neurological status.Lethargic, was able to answer few questions earlier per staff and her son. Patient is no verbally responsie and does not open her eyes when calling by name, touch, pain- no new issues reported. Son at bed side- all qs answered Exam/Review of Systems Vital Signs Vitals Vital Signs Date Time Temp Pulse Resp B/P Pulse Ox O2 Delivery O2 Flow Rate FiO2 02/11/17 13:31 59 16 97 21 02/11/17 11:07 98.1 100/66 Intake and Output 02/10/17 02/10/17 02/11/17 15:00 23:00 07:00 Intake Total 950 ml 950 ml Output Total 500 ml 1500 ml Balance 450 ml -550 ml Exam Constitutional: other, well developed Respiratory: diminished breath sounds Cardiovascular: nl pulses, other (a fib- controlled), regular rate and rhythm Gastrointestinal: non-tender, soft Extremities: normal pulses Neurological: lethargic Results Result Diagram: 02/11/17 0634 02/11/17 0634 Results 24 hrs Laboratory Tests Test 02/10/17 17:49 02/11/17 00:20 02/11/17 05:04 02/11/17 06:34 Bedside Glucose 118 127 107 White Blood Count 8.1 # Red Blood Count 4.11 L Hemoglobin 10.8 L Hematocrit 33.9 L Mean Corpuscular Volume 82.5 Mean Corpuscular Hemoglobin 26.3 L Mean Corpuscular Hemoglobin Concent 31.9 L Red Cell Distribution Width 17.7 H Platelet Count 508 H Mean Platelet Volume 12.5 H Neutrophils % 65.6 Lymphocytes % 20.0 Monocytes % 7.1 Eosinophils % 5.5 Basophils % 1.2 Nucleated Red Blood Cells % 0.0 Neutrophils # 5.3 Lymphocytes # 1.6 Monocytes # 0.6 Eosinophils # 0.5 Basophils # 0.1 Nucleated Red Blood Cells # 0.0 Sodium Level 145 H Potassium Level 4.1 Chloride Level 102 Carbon Dioxide Level 27 Anion Gap 20 H Blood Urea Nitrogen 27 H Creatinine 0.94 Glucose Level 112 Calcium Level 10.0 Test 02/11/17 11:56 Bedside Glucose 106 Medications Medications Current Medications Miscellaneous Information 1 ea NOTE XX ; Start 01/17/17 at 10:00 Glucose (Glutose) 15 gm Q15M PRN PO DECREASED GLUCOSE; Start 01/17/17 at 10:00 Glucose (Glutose) 22.5 gm Q15M PRN PO DECREASED GLUCOSE; Start 01/17/17 at 10: 00 Dextrose (D50w Syringe) 25 ml Q15M PRN IV DECREASED GLUCOSE; Start 01/17/17 at 10:00 Dextrose (D50w Syringe) 50 ml Q15M PRN IV DECREASED GLUCOSE; Start 01/17/17 at 10:00 Glucagon (Glucagen) 1 mg Q15M PRN IM DECREASED GLUCOSE; Start 01/17/17 at 10:00 Glucose (Glutose) 15 gm Q15M PRN BUCCAL DECREASED GLUCOSE; Start 01/17/17 at 10 :00 Collagenase (Santyl) 1 applic DAILY TOP Last administered on 02/11/17 08:33; Admin Dose 1 APPLIC; Start 01/17/17 at 21:00 IV Flush (NS 10 ml) 10 ml PRN PRN IV IV PROTOCOL; Start 01/22/17 at 12:00 Insulin Aspart (Novolog Insulin Pen) NOVOLOG *MILD* ALGORI... Q6 SC Last administered on 01/26/17 18:02; Admin Dose 1 UNIT; Start 01/23/17 at 18:00 Miscellaneous Information (Pending Santyl Order For Wound Care) This patient dunaway... PRN PRN XX WOUND CARE; Start 01/24/17 at 07:30 Bisacodyl (Dulcolax Supp) 10 mg DAILY PRN [place] CONSTIPATION Last administered on 02/10/17 03:49; Admin Dose 10 MG; Start 01/25/17 at 16:30 Acetaminophen (Tylenol Liquid) 650 mg Q4H PRN NGT PAIN AND OR ELEVATED TEMP Last administered on 01/31/17 14:35; Admin Dose 650 MG; Start 01/26/17 at 09:00 Metoprolol Tartrate (Lopressor) 2.5 mg Q4H PRN IV HR > 110 Last administered on 02/10/17 07:01; Admin Dose 2.5 MG; Start 01/26/17 at 15:00 Midodrine (Proamatine) 5 mg Q8 PRN GTB BLOOD PRESSURE SUPPORT Last administered on 01/31/17 15:36; Admin Dose 5 MG; Start 01/28/17 at 16:30 Enoxaparin Sodium (Lovenox) 60 mg Q24H SC Last administered on 02/11/17 00:13 ; Admin Dose 60 MG; Start 02/03/17 at 00:00 Nystatin (Nystatin Powder) 1 applic BID TOP Last administered on 02/11/17 08: 33; Admin Dose 1 APPLIC; Start 02/04/17 at 12:00 Aspirin (Aspirin) 81 mg DAILY GTB Last administered on 02/11/17 08:32; Admin Dose 81 MG; Start 02/04/17 at 15:30 Metoprolol Tartrate (Lopressor) 25 mg BID PO Last administered on 02/11/17 08: 33; Admin Dose 25 MG; Start 02/10/17 at 21:00 ALEXIS NAJERA Feb 11, 2017 14:32
--- NOTE | 2017-02-11 16:37 | CONS ---
Date/Time of Note Date/Time of Note DATE: 02/11/17 TIME: 16:35 Assessment/Plan Assessment/Plan Chief Complaint/Hosp Course assessment/impression: - intermittent leukocytosis - recurrent CVA - possible aspiration, improved - encephalopathy due to CVA. CSF from 01/19/2017: WBC=3, RBC=0, glu 53, pro=61, CSF ([place] serology negative, HSV negative, cocci CF negative, encephalitis meningitis panel could not be done due to a lack of sample), serum ([place] PCR negative, crypto antigen negative, cocci CF negative, histo CF negative). my order of crypto in CSF was cancelled and no reason given - bacteremia due to CoNS, probable contaminant. 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 - continue to monitor Pt off systemic antibiotics. Pt took pip/tazo (01/26/2017-) management d/w Pt's RN Problems: Consultation Date/Type/Reason Admit Date/Time Jan 16, 2017 at 15:19 Initial Consult Date 01/17/17 Type of Consultation: ID Referring Provider: LAWRENCE PICKERING 24 HR Interval Summary Subjective hx not possible: pt non-verbal Exam/Review of Systems Vital Signs Vitals Vital Signs Date Time Temp Pulse Resp B/P Pulse Ox O2 Delivery O2 Flow Rate FiO2 02/11/17 16:21 83 02/11/17 15:26 98.1 16 98/56 98 02/11/17 13:31 21 Intake and Output 02/10/17 02/10/17 02/11/17 15:00 23:00 07:00 Intake Total 950 ml 950 ml Output Total 500 ml 1500 ml Balance 450 ml -550 ml Exam Constitutional: frail, non-verbal Psych: confusion Head: atraumatic, normocephalic Eyes: nl conjunctiva, nl lids ENMT: nl external ears & nose, nl nasal mucosa & septum Respiratory: diminished breath sounds Cardiovascular: nl pulses, regular rate and rhythm Gastrointestinal: non-tender, other (GT), soft Genitourinary - Female: other (FC) Musculoskeletal: nl extremities to inspection Extremities: normal pulses, No edema Neurological: confused, lethargic Skin: nl turgor Results Result Diagram: 02/11/17 0634 02/11/17 0634 Results 24 hrs Laboratory Tests Test 02/10/17 17:49 02/11/17 00:20 02/11/17 05:04 02/11/17 06:34 Bedside Glucose 118 127 107 White Blood Count 8.1 # Red Blood Count 4.11 L Hemoglobin 10.8 L Hematocrit 33.9 L Mean Corpuscular Volume 82.5 Mean Corpuscular Hemoglobin 26.3 L Mean Corpuscular Hemoglobin Concent 31.9 L Red Cell Distribution Width 17.7 H Platelet Count 508 H Mean Platelet Volume 12.5 H Neutrophils % 65.6 Lymphocytes % 20.0 Monocytes % 7.1 Eosinophils % 5.5 Basophils % 1.2 Nucleated Red Blood Cells % 0.0 Neutrophils # 5.3 Lymphocytes # 1.6 Monocytes # 0.6 Eosinophils # 0.5 Basophils # 0.1 Nucleated Red Blood Cells # 0.0 Sodium Level 145 H Potassium Level 4.1 Chloride Level 102 Carbon Dioxide Level 27 Anion Gap 20 H Blood Urea Nitrogen 27 H Creatinine 0.94 Glucose Level 112 Calcium Level 10.0 Test 02/11/17 11:56 Bedside Glucose 106 Medications Medications Current Medications Miscellaneous Information 1 ea NOTE XX ; Start 01/17/17 at 10:00 Glucose (Glutose) 15 gm Q15M PRN PO DECREASED GLUCOSE; Start 01/17/17 at 10:00 Glucose (Glutose) 22.5 gm Q15M PRN PO DECREASED GLUCOSE; Start 01/17/17 at 10: 00 Dextrose (D50w Syringe) 25 ml Q15M PRN IV DECREASED GLUCOSE; Start 01/17/17 at 10:00 Dextrose (D50w Syringe) 50 ml Q15M PRN IV DECREASED GLUCOSE; Start 01/17/17 at 10:00 Glucagon (Glucagen) 1 mg Q15M PRN IM DECREASED GLUCOSE; Start 01/17/17 at 10:00 Glucose (Glutose) 15 gm Q15M PRN BUCCAL DECREASED GLUCOSE; Start 01/17/17 at 10 :00 Collagenase (Santyl) 1 applic DAILY TOP Last administered on 02/11/17 08:33; Admin Dose 1 APPLIC; Start 01/17/17 at 21:00 IV Flush (NS 10 ml) 10 ml PRN PRN IV IV PROTOCOL; Start 01/22/17 at 12:00 Insulin Aspart (Novolog Insulin Pen) NOVOLOG *MILD* ALGORI... Q6 SC Last administered on 01/26/17 18:02; Admin Dose 1 UNIT; Start 01/23/17 at 18:00 Miscellaneous Information (Pending Santyl Order For Wound Care) This patient dunaway... PRN PRN XX WOUND CARE; Start 01/24/17 at 07:30 Bisacodyl (Dulcolax Supp) 10 mg DAILY PRN [place] CONSTIPATION Last administered on 02/10/17 03:49; Admin Dose 10 MG; Start 01/25/17 at 16:30 Acetaminophen (Tylenol Liquid) 650 mg Q4H PRN NGT PAIN AND OR ELEVATED TEMP Last administered on 01/31/17 14:35; Admin Dose 650 MG; Start 01/26/17 at 09:00 Metoprolol Tartrate (Lopressor) 2.5 mg Q4H PRN IV HR > 110 Last administered on 02/10/17 07:01; Admin Dose 2.5 MG; Start 01/26/17 at 15:00 Midodrine (Proamatine) 5 mg Q8 PRN GTB BLOOD PRESSURE SUPPORT Last administered on 01/31/17 15:36; Admin Dose 5 MG; Start 01/28/17 at 16:30 Enoxaparin Sodium (Lovenox) 60 mg Q24H SC Last administered on 02/11/17 00:13 ; Admin Dose 60 MG; Start 02/03/17 at 00:00 Nystatin (Nystatin Powder) 1 applic BID TOP Last administered on 02/11/17 08: 33; Admin Dose 1 APPLIC; Start 02/04/17 at 12:00 Aspirin (Aspirin) 81 mg DAILY GTB Last administered on 02/11/17 08:32; Admin Dose 81 MG; Start 02/04/17 at 15:30 Metoprolol Tartrate (Lopressor) 25 mg BID PO Last administered on 02/11/17 08: 33; Admin Dose 25 MG; Start 02/10/17 at 21:00 TYE STYLES M.D. Feb 11, 2017 16:37
[2017-02-11] MEDS: NYSTATIN SUSP 5 ML CUP PO SCH (20:23)
[2017-02-12] VITALS (13 sets, daily range): BP systolic 95–127; BP diastolic 53–82; PULSE 82–138; RESP 16–20
[2017-02-12] MEDS: LEVALBUTEROL (NEB) 0.63 MG/3 ML AMP HHN SCH ×4 (01:29→20:39)
[2017-02-12] MEDS: INSULIN ASPART [NOVOLOG] 3 ML PEN SC SCH ×3 (05:23→17:18)
[2017-02-12 07:02] LABS: BASOPHIL # 0.1 10^3/ul (0.0-0.1); BASOPHILS % 1.1 % (0.0-2.0); EOSINOPHILS # 0.4 10^3/ul (0.0-0.5); HEMATOCRIT 34.6 % (37.0-47.0); LYMPHOCYTES # 1.7 10^3/ul (0.8-2.9); MEAN CORPUSCULAR HEMOGLOBIN 26.1 pg (29.0-33.0); MEAN CORPUSCULAR HGB CONC 31.8 g/dl (32.0-37.0); MEAN PLATELET VOLUME 12.4 fl (7.4-10.4); MONOCYTE # 0.7 10^3/ul (0.3-0.9); MONOCYTES % 7.3 % (0.0-11.0); NEUTROPHIL # 6.6 10^3/ul (1.6-7.5); NEUTROPHILS % 69.1 % (39.0-77.0); PLATELET COUNT 478 10^3/UL (140-415); RED BLOOD COUNT 4.22 10^6/ul (4.20-5.40); RED CELL DISTRIBUTION WIDTH 17.6 % (11.5-14.5); WHITE BLOOD COUNT 9.5 10^3/ul (4.8-10.8)
[2017-02-12 07:23] LABS: CALCIUM 10.1 mg/dl (8.4-10.2); CREATININE 0.94 mg/dl (0.44-1.00); POTASSIUM 4.3 mmol/L (3.5-5.1)
[2017-02-12] MEDS: NYSTATIN SUSP 5 ML CUP PO SCH ×4 (08:00→20:17)
[2017-02-12] MEDS: METOPROLOL 25 MG TAB PO SCH ×2 (08:00→20:24)
[2017-02-12] MEDS: COLLAGENASE 30 GM TUBE TOP SCH (08:00)
[2017-02-12] MEDS: ASPIRIN 81 MG TAB GTB SCH (08:00)
[2017-02-12] MEDS: NYSTATIN 30 GM POWDER BTL TOP SCH ×2 (08:00→20:18)
--- NOTE | 2017-02-12 12:02 | CONS ---
Date/Time of Note Date/Time of Note DATE: 02/12/17 TIME: 12:00 Assessment/Plan Assessment/Plan Chief Complaint/Hosp Course IMP: 1. AF-mainly rate controlled/Trop negative x 3. Had pause x 3.7 seconds 01/30 on standing IVP BB. No recurrence since decrease in IVP BB. Now overall improved HR 2.Hypotension-now improved on midodrine 3.encephalopathy/ams 4.coagulopathy-now decreased with coumadin held 5. Acute Renal failure-? secondary to vanc 6.Leukocytosis 7. Cardiomyopathy-EF 45% 8. Cephalic vein thrombosis 9. Dysphagia s/p PEG Recc: -ok for transfer to med-surg if hr remains well controlled -serial ecg's -Cont. Lovenox/asa -continue low dose BB -Continue keppra/abx's/acyclovir -Follow MS closely with ongoing neuro eval -PRN midodrine for low BP -Possible need for PPM will follow/stable at this time-no definite indication Problems: Consultation Date/Type/Reason Admit Date/Time Jan 16, 2017 at 15:19 Initial Consult Date 01/17/17 Type of Consultation: cardiology Reason for Consultation af Referring Provider: LAWRENCE PICKERING Exam/Review of Systems Vital Signs Vitals Vital Signs Date Time Temp Pulse Resp B/P Pulse Ox O2 Delivery O2 Flow Rate FiO2 02/12/17 11:13 98.4 89 18 121/71 97 02/12/17 07:36 21 Intake and Output 02/11/17 02/11/17 02/12/17 15:00 23:00 07:00 Intake Total 950 ml Output Total 800 ml Balance 150 ml Exam Review of Systems: CONSTITUTIONAL: No fevers, chills. PULMONARY: No sob CARDIOVASCULAR: No chest pain/palpitations GASTROINTESTINAL: No nausea/vomiting. GENITOURINARY: No hematuria/dysuria. MUSCULOSKELETAL: No myagias/arthalgias. PSYCHIATRIC: The patient denies depression. NEUROLOGIC: encephalopathy Constitutional: alert, oriented Psych: no complaints Head: normocephalic ENMT: mucosa pink and moist Neck: jvd (9 cm water), supple Respiratory: diminished breath sounds (at basese/b) Cardiovascular: regular rate and rhythm Gastrointestinal: non-tender, soft Musculoskeletal: muscle tone (normal) Extremities: edema (none) Neurological: other (no focal deficits) Results Result Diagram: 02/12/17 0628 02/12/17 0628 Results 24 hrs Laboratory Tests Test 02/11/17 18:24 02/11/17 23:36 02/12/17 05:17 02/12/17 06:28 Bedside Glucose 115 122 95 White Blood Count 9.5 Red Blood Count 4.22 Hemoglobin 11.0 L Hematocrit 34.6 L Mean Corpuscular Volume 82.0 Mean Corpuscular Hemoglobin 26.1 L Mean Corpuscular Hemoglobin Concent 31.8 L Red Cell Distribution Width 17.6 H Platelet Count 478 H Mean Platelet Volume 12.4 H Neutrophils % 69.1 Lymphocytes % 18.0 Monocytes % 7.3 Eosinophils % 4.0 Basophils % 1.1 Nucleated Red Blood Cells % 0.0 Neutrophils # 6.6 Lymphocytes # 1.7 Monocytes # 0.7 Eosinophils # 0.4 Basophils # 0.1 Nucleated Red Blood Cells # 0.0 Sodium Level 145 H Potassium Level 4.3 Chloride Level 102 Carbon Dioxide Level 27 Anion Gap 20 H Blood Urea Nitrogen 29 H Creatinine 0.94 Glucose Level 97 Calcium Level 10.1 Medications Medications Current Medications Miscellaneous Information 1 ea NOTE XX ; Start 01/17/17 at 10:00 Glucose (Glutose) 15 gm Q15M PRN PO DECREASED GLUCOSE; Start 01/17/17 at 10:00 Glucose (Glutose) 22.5 gm Q15M PRN PO DECREASED GLUCOSE; Start 01/17/17 at 10: 00 Dextrose (D50w Syringe) 25 ml Q15M PRN IV DECREASED GLUCOSE; Start 01/17/17 at 10:00 Dextrose (D50w Syringe) 50 ml Q15M PRN IV DECREASED GLUCOSE; Start 01/17/17 at 10:00 Glucagon (Glucagen) 1 mg Q15M PRN IM DECREASED GLUCOSE; Start 01/17/17 at 10:00 Glucose (Glutose) 15 gm Q15M PRN BUCCAL DECREASED GLUCOSE; Start 01/17/17 at 10 :00 Collagenase (Santyl) 1 applic DAILY TOP Last administered on 02/12/17t 08:00; Admin Dose 1 APPLIC; Start 01/17/17 at 21:00 IV Flush (NS 10 ml) 10 ml PRN PRN IV IV PROTOCOL; Start 01/22/17 at 12:00 Insulin Aspart (Novolog Insulin Pen) NOVOLOG *MILD* ALGORI... Q6 SC Last administered on 01/26/17 18:02; Admin Dose 1 UNIT; Start 01/23/17 at 18:00 [facility]isc[facility] This patient dunaway... PRN PRN XX WOUND CARE; Start 01/24/17 at 07:30 Bisacodyl (Dulcolax Supp) 10 mg DAILY PRN [place] CONSTIPATION Last administered on 02/10/17 03:49; Admin Dose 10 MG; Start 01/25/17 at 16:30 Acetaminophen (Tylenol Liquid) 650 mg Q4H PRN NGT PAIN AND OR ELEVATED TEMP Last administered on 01/31/17 14:35; Admin Dose 650 MG; Start 01/26/17 at 09:00 Metoprolol Tartrate (Lopressor) 2.5 mg Q4H PRN IV HR > 110 Last administered on 02/10/17 07:01; Admin Dose 2.5 MG; Start 01/26/17 at 15:00 Midodrine (Proamatine) 5 mg Q8 PRN GTB BLOOD PRESSURE SUPPORT Last administered on 01/31/17 15:36; Admin Dose 5 MG; Start 01/28/17 at 16:30 Enoxaparin Sodium (Lovenox) 60 mg Q24H SC Last administered on 02/11/17 23:49 ; Admin Dose 60 MG; Start 02/03/17 at 00:00 Nystatin (Nystatin Powder) 1 applic BID TOP Last administered on 02/12/17 08: 00; Admin Dose 1 APPLIC; Start 02/04/17 at 12:00 Aspirin (Aspirin) 81 mg DAILY GTB Last administered on 02/12/17 08:00; Admin Dose 81 MG; Start 02/04/17 at 15:30 Metoprolol Tartrate (Lopressor) 25 mg BID PO Last administered on 02/12/17 08: 00; Admin Dose 25 MG; Start 02/10/17 at 21:00 Nystatin (Nystatin Susp) 5 ml QID PO Last administered on 02/12/17 08:00; Admin Dose 5 ML; Start 02/11/17 at 21:00 MINOO REY Feb 12, 2017 12:02
--- NOTE | 2017-02-12 13:02 | PN ---
Date/Time of Note Date/Time of Note DATE: 02/12/17 TIME: 13:00 Assessment/Plan VTE Prophylaxis VTE Prophylaxis Intervention: SCD's Lines/Catheters IV Catheter Type (from Nrs): PICC Line Central line still needed: Yes Urinary Cath still in place: Yes (replaced 02/11/17) Reason Cath still needed: urinary retention Assessment/Plan Chief Complaint/Hosp Course Patient's continues to be in atrial flutter with a rate fluctuation above 100, no significant change in neurological status Assessment/Plan - Bilateral thalamic infarctions,continue aspirin. - Dysphagia, status post G-tube placement by Dr. Garcia. - Atrial fibrillation with rapid ventricular response. Dr. Armenta is following and cardiology consultation. - Thrombosis of the bilateral cephalic veins. Continue Lovenox. - Acute kidney injury, resolved. - History of CVA - History of hyperlipidemia - Left lower extremity, status post vascular surgery. Further recommendations based on clinical course. Plan of care discussed with Dr. Valdovinos. Problems: Exam/Review of Systems Vital Signs Vitals Vital Signs Date Time Temp Pulse Resp B/P Pulse Ox O2 Delivery O2 Flow Rate FiO2 02/12/17 12:58 100 02/12/17 11:13 98.4 18 121/71 97 02/12/17 07:36 21 Intake and Output 02/11/17 02/11/17 02/12/17 15:00 23:00 07:00 Intake Total 950 ml Output Total 800 ml Balance 150 ml Exam Psych: confusion Neck: supple Respiratory: normal air movement Cardiovascular: irregular rhythm Gastrointestinal: other (G-tube), soft Extremities: normal pulses Neurological: focal weakness Results Result Diagram: 02/12/1728 02/12/1728 Results 24 hrs Laboratory Tests Test 02/11/17 18:24 02/11/17 23:36 02/12/17 05:17 02/12/17 06:28 Bedside Glucose 115 122 95 White Blood Count 9.5 Red Blood Count 4.22 Hemoglobin 11.0 L Hematocrit 34.6 L Mean Corpuscular Volume 82.0 Mean Corpuscular Hemoglobin 26.1 L Mean Corpuscular Hemoglobin Concent 31.8 L Red Cell Distribution Width 17.6 H Platelet Count 478 H Mean Platelet Volume 12.4 H Neutrophils % 69.1 Lymphocytes % 18.0 Monocytes % 7.3 Eosinophils % 4.0 Basophils % 1.1 Nucleated Red Blood Cells % 0.0 Neutrophils # 6.6 Lymphocytes # 1.7 Monocytes # 0.7 Eosinophils # 0.4 Basophils # 0.1 Nucleated Red Blood Cells # 0.0 Sodium Level 145 H Potassium Level 4.3 Chloride Level 102 Carbon Dioxide Level 27 Anion Gap 20 H Blood Urea Nitrogen 29 H Creatinine 0.94 Glucose Level 97 Calcium Level 10.1 Test 02/12/17 12:47 Bedside Glucose 127 Medications Medications Current Medications Miscellaneous Information 1 ea NOTE XX ; Start 01/17/17 at 10:00 Glucose (Glutose) 15 gm Q15M PRN PO DECREASED GLUCOSE; Start 01/17/17 at 10:00 Glucose (Glutose) 22.5 gm Q15M PRN PO DECREASED GLUCOSE; Start 01/17/17 at 10: 00 Dextrose (D50w Syringe) 25 ml Q15M PRN IV DECREASED GLUCOSE; Start 01/17/17 at 10:00 Dextrose (D50w Syringe) 50 ml Q15M PRN IV DECREASED GLUCOSE; Start 01/17/17 at 10:00 Glucagon (Glucagen) 1 mg Q15M PRN IM DECREASED GLUCOSE; Start 01/17/17 at 10:00 Glucose (Glutose) 15 gm Q15M PRN BUCCAL DECREASED GLUCOSE; Start 01/17/17 at 10 :00 Collagenase (Santyl) 1 applic DAILY TOP Last administered on 02/12/17 08:00; Admin Dose 1 APPLIC; Start 01/17/17 at 21:00 IV Flush (NS 10 ml) 10 ml PRN PRN IV IV PROTOCOL; Start 01/22/17 at 12:00 Insulin Aspart (Novolog Insulin Pen) NOVOLOG *MILD* ALGORI... Q6 SC Last administered on 01/26/17 18:02; Admin Dose 1 UNIT; Start 01/23/17 at 18:00 Miscellaneous Information (Pending Santyl Order For Wound Care) This patient dunaway... PRN PRN XX WOUND CARE; Start 01/24/17 at 07:30 Bisacodyl (Dulcolax Supp) 10 mg DAILY PRN NE CONSTIPATION Last administered on 02/10/17 03:49; Admin Dose 10 MG; Start 01/25/17 at 16:30 Acetaminophen (Tylenol Liquid) 650 mg Q4H PRN NGT PAIN AND OR ELEVATED TEMP Last administered on 01/31/17 14:35; Admin Dose 650 MG; Start 01/26/17 at 09:00 Metoprolol Tartrate (Lopressor) 2.5 mg Q4H PRN IV HR > 110 Last administered on 02/10/17 07:01; Admin Dose 2.5 MG; Start 01/26/17 at 15:00 Midodrine (Proamatine) 5 mg Q8 PRN GTB BLOOD PRESSURE SUPPORT Last administered on 01/31/17 15:36; Admin Dose 5 MG; Start 01/28/17 at 16:30 Enoxaparin Sodium (Lovenox) 60 mg Q24H SC Last administered on 02/11/17 23:49 ; Admin Dose 60 MG; Start 02/03/17 at 00:00 Nystatin (Nystatin Powder) 1 applic BID TOP Last administered on 02/12/17 08: 00; Admin Dose 1 APPLIC; Start 02/04/17 at 12:00 Aspirin (Aspirin) 81 mg DAILY GTB Last administered on 02/12/17 08:00; Admin Dose 81 MG; Start 02/04/17 at 15:30 Metoprolol Tartrate (Lopressor) 25 mg BID PO Last administered on 02/12/17 08: 00; Admin Dose 25 MG; Start 02/10/17 at 21:00 Nystatin (Nystatin Susp) 5 ml QID PO Last administered on 02/12/17 12:19; Admin Dose 5 ML; Start 02/11/17 at 21:00 LAWRENCE PICKERING Feb 12, 2017 13:02
--- NOTE | 2017-02-12 14:04 | CONS ---
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 CSF from 01/19/2017: WBC=3, RBC=0, glu 53, pro=61, CSF ([place] serology negative, HSV negative, cocci CF negative, encephalitis meningitis panel could not be done due to a lack of sample), serum ([place] PCR negative, crypto antigen negative, cocci CF negative, histo CF negative). my order of crypto in CSF was cancelled and no reason given - bacteremia due to CoNS, probable contaminant. 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 Pt took pip/tazo (01/26/2017-) Management d/w NARESH Simon and Dr. Carbajal Problems: Consultation Date/Type/Reason Admit Date/Time Jan 16, 2017 at 15:19 Initial Consult Date 01/17/17 Type of Consultation: Infectious Disease Referring Provider: LAWRENCE PICKERING 24 HR Interval Summary Free Text/Dictation Lees catheter was changed yesterday. No acute issues; sleeping most the day per d/w nursing staff. Nods no to pain. ROS limited due to lethargy. Exam/Review of Systems Vital Signs Vitals Vital Signs Date Time Temp Pulse Resp B/P Pulse Ox O2 Delivery O2 Flow Rate FiO2 02/12/17 13:35 86 18 98 21 02/12/17 11:13 98.4 121/71 Intake and Output 02/11/17 02/11/17 02/12/17 15:00 23:00 07:00 Intake Total 950 ml Output Total 800 ml Balance 150 ml Exam Constitutional: frail, non-verbal, other (asleep but arousable) Head: atraumatic, normocephalic Respiratory: diminished breath sounds, No wheezing Cardiovascular: irregular rhythm Gastrointestinal: other (G-tube intact), soft, No tender Genitourinary - Female: other (Lees catheter present) Musculoskeletal: nl extremities to inspection, normal pulses Extremities: No edema Neurological: lethargic Skin: nl turgor Results Result Diagram: 02/12/1728 02/12/17 0628 Results 24 hrs Laboratory Tests Test 02/11/17 18:24 02/11/17 23:36 02/12/17 05:17 02/12/17 06:28 Bedside Glucose 115 122 95 White Blood Count 9.5 Red Blood Count 4.22 Hemoglobin 11.0 L Hematocrit 34.6 L Mean Corpuscular Volume 82.0 Mean Corpuscular Hemoglobin 26.1 L Mean Corpuscular Hemoglobin Concent 31.8 L Red Cell Distribution Width 17.6 H Platelet Count 478 H Mean Platelet Volume 12.4 H Neutrophils % 69.1 Lymphocytes % 18.0 Monocytes % 7.3 Eosinophils % 4.0 Basophils % 1.1 Nucleated Red Blood Cells % 0.0 Neutrophils # 6.6 Lymphocytes # 1.7 Monocytes # 0.7 Eosinophils # 0.4 Basophils # 0.1 Nucleated Red Blood Cells # 0.0 Sodium Level 145 H Potassium Level 4.3 Chloride Level 102 Carbon Dioxide Level 27 Anion Gap 20 H Blood Urea Nitrogen 29 H Creatinine 0.94 Glucose Level 97 Calcium Level 10.1 Test 02/12/17 12:47 Bedside Glucose 127 Medications Medications Current Medications Miscellaneous Information 1 ea NOTE XX ; Start 01/17/17 at 10:00 Glucose (Glutose) 15 gm Q15M PRN PO DECREASED GLUCOSE; Start 01/17/17 at 10:00 Glucose (Glutose) 22.5 gm Q15M PRN PO DECREASED GLUCOSE; Start 01/17/17 at 10: 00 Dextrose (D50w Syringe) 25 ml Q15M PRN IV DECREASED GLUCOSE; Start 01/17/17 at 10:00 Dextrose (D50w Syringe) 50 ml Q15M PRN IV DECREASED GLUCOSE; Start 01/17/17 at 10:00 Glucagon (Glucagen) 1 mg Q15M PRN IM DECREASED GLUCOSE; Start 01/17/17 at 10:00 Glucose (Glutose) 15 gm Q15M PRN BUCCAL DECREASED GLUCOSE; Start 01/17/17 at 10 :00 Collagenase (Santyl) 1 applic DAILY TOP Last administered on 02/12/17 08:00; Admin Dose 1 APPLIC; Start 01/17/17 at 21:00 IV Flush (NS 10 ml) 10 ml PRN PRN IV IV PROTOCOL; Start 01/22/17 at 12:00 Insulin Aspart (Novolog Insulin Pen) NOVOLOG *MILD* ALGORI... Q6 SC Last administered on 01/26/17 18:02; Admin Dose 1 UNIT; Start 01/23/17 at 18:00 Miscellaneous Information (Pending Santyl Order For Wound Care) This patient dunaway... PRN PRN XX WOUND CARE; Start 01/24/17 at 07:30 Bisacodyl (Dulcolax Supp) 10 mg DAILY PRN [place] CONSTIPATION Last administered on 02/10/17 03:49; Admin Dose 10 MG; Start 01/25/17 at 16:30 Acetaminophen (Tylenol Liquid) 650 mg Q4H PRN NGT PAIN AND OR ELEVATED TEMP Last administered on 01/31/17 14:35; Admin Dose 650 MG; Start 01/26/17 at 09:00 Metoprolol Tartrate (Lopressor) 2.5 mg Q4H PRN IV HR > 110 Last administered on 02/10/17 07:01; Admin Dose 2.5 MG; Start 01/26/17 at 15:00 Midodrine (Proamatine) 5 mg Q8 PRN GTB BLOOD PRESSURE SUPPORT Last administered on 01/31/17 15:36; Admin Dose 5 MG; Start 01/28/17 at 16:30 Enoxaparin Sodium (Lovenox) 60 mg Q24H SC Last administered on 02/11/17 23:49 ; Admin Dose 60 MG; Start 02/03/17 at 00:00 Nystatin (Nystatin Powder) 1 applic BID TOP Last administered on 02/12/17 08: 00; Admin Dose 1 APPLIC; Start 02/04/17 at 12:00 Aspirin (Aspirin) 81 mg DAILY GTB Last administered on 02/12/17 08:00; Admin Dose 81 MG; Start 02/04/17 at 15:30 Metoprolol Tartrate (Lopressor) 25 mg BID PO Last administered on 02/12/17 08: 00; Admin Dose 25 MG; Start 02/10/17 at 21:00 Nystatin (Nystatin Susp) 5 ml QID PO Last administered on 02/12/17 12:19; Admin Dose 5 ML; Start 02/11/17 at 21:00 TYE CARBAJAL M.D. 02/13/17 1610: Assessment/Plan Assessment/Plan Chief Complaint/Hosp Course Raven attestation I discussed the management with LUNA Schmitz and agree with above Problems: Exam/Review of Systems Results Result Diagram: 02/12/17 0628 02/12/17 0628 GIRISH SCHMITZ NP Feb 12, 2017 14:04 TYE CARBAJAL M.D. Feb 13, 2017 16:10
[2017-02-12] MEDS: ENOXAPARIN 60 MG/0.6 ML SYG SC SCH (23:58)
[2017-02-13] VITALS (11 sets, daily range): BP systolic 98–127; BP diastolic 54–71; PULSE 95–114; RESP 17–19
[2017-02-13] MEDS: LEVALBUTEROL (NEB) 0.63 MG/3 ML AMP HHN SCH ×4 (02:04→20:30)
[2017-02-13] MEDS: INSULIN ASPART [NOVOLOG] 3 ML PEN SC SCH ×4 (06:00→17:50)
[2017-02-13] MEDS: ASPIRIN 81 MG TAB GTB SCH (08:23)
[2017-02-13] MEDS: METOPROLOL 25 MG TAB PO SCH ×2 (08:24→20:33)
[2017-02-13] MEDS: NYSTATIN SUSP 5 ML CUP PO SCH ×4 (08:24→20:32)
[2017-02-13] MEDS: COLLAGENASE 30 GM TUBE TOP SCH (08:25)
[2017-02-13] MEDS: NYSTATIN 30 GM POWDER BTL TOP SCH ×2 (08:25→20:33)
--- NOTE | 2017-02-13 14:31 | CONS ---
Date/Time of Note Date/Time of Note DATE: 02/13/17 TIME: 14:30 Assessment/Plan Assessment/Plan Additional Assessment/Plan 1. Atrial fibrillation 2. Encephalopathy 3. Acute Renal failure 4. Cardiomyopathy-EF 45% 5. Cephalic vein thrombosis 6. Coagulopathy 7. Anemia atrial fibrillation rate controlled Continue Metoprol Continue ASA Continue Insulin Continue GI and DVT Prophylaxis Consultation Date/Type/Reason Admit Date/Time Jan 16, 2017 at 15:19 Constitutional: requiring IVF, requiring O2 Respiratory: shortness of breath Psychological: no complaints Social History Smoking Status: Unknown if ever smoked Exam/Review of Systems Vital Signs Vitals Vital Signs Date Time Temp Pulse Resp B/P Pulse Ox O2 Delivery O2 Flow Rate FiO2 02/13/17 13:41 98 21 02/13/17 13:40 61 20 02/13/17 11:05 98.2 127/62 Intake and Output 02/12/17 02/12/17 02/13/17 15:00 23:00 07:00 Intake Total 1000 ml Output Total 850 ml Balance 150 ml Exam Constitutional: alert, oriented Head: atraumatic, normocephalic Respiratory: clear to auscultation Cardiovascular: irregular rhythm Gastrointestinal: nl liver, spleen, non-tender, soft Extremities: normal pulses Results Result Diagram: 02/12/17 0628 02/12/17 0628 Results 24 hrs Laboratory Tests Test 02/12/17 17:17 02/12/17 23:55 02/13/17 05:18 02/13/17 12:06 Bedside Glucose 123 109 102 106 Medications Medications Current Medications Miscellaneous Information 1 ea NOTE XX ; Start 01/17/17 at 10:00 Glucose (Glutose) 15 gm Q15M PRN PO DECREASED GLUCOSE; Start 01/17/17 at 10:00 Glucose (Glutose) 22.5 gm Q15M PRN PO DECREASED GLUCOSE; Start 01/17/17 at 10: 00 Dextrose (D50w Syringe) 25 ml Q15M PRN IV DECREASED GLUCOSE; Start 01/17/17 at 10:00 Dextrose (D50w Syringe) 50 ml Q15M PRN IV DECREASED GLUCOSE; Start 01/17/17 at 10:00 Glucagon (Glucagen) 1 mg Q15M PRN IM DECREASED GLUCOSE; Start 01/17/17 at 10:00 Glucose (Glutose) 15 gm Q15M PRN BUCCAL DECREASED GLUCOSE; Start 01/17/17 at 10 :00 Collagenase (Santyl) 1 applic DAILY TOP Last administered on 02/13/17 08:25; Admin Dose 1 APPLIC; Start 01/17/17 at 21:00 IV Flush (NS 10 ml) 10 ml PRN PRN IV IV PROTOCOL; Start 01/22/17 at 12:00 Insulin Aspart (Novolog Insulin Pen) NOVOLOG *MILD* ALGORI... Q6 SC Last administered on 01/26/17 18:02; Admin Dose 1 UNIT; Start 01/23/17 at 18:00 Miscellaneous Information (Pending Santyl Order For Wound Care) This patient dunaway... PRN PRN XX WOUND CARE; Start 01/24/17 at 07:30 Bisacodyl (Dulcolax Supp) 10 mg DAILY PRN [place] CONSTIPATION Last administered on 02/10/17 03:49; Admin Dose 10 MG; Start 01/25/17 at 16:30 Acetaminophen (Tylenol Liquid) 650 mg Q4H PRN NGT PAIN AND OR ELEVATED TEMP Last administered on 01/31/17 14:35; Admin Dose 650 MG; Start 01/26/17 at 09:00 Metoprolol Tartrate (Lopressor) 2.5 mg Q4H PRN IV HR > 110 Last administered on 02/10/17 07:01; Admin Dose 2.5 MG; Start 01/26/17 at 15:00 Midodrine (Proamatine) 5 mg Q8 PRN GTB BLOOD PRESSURE SUPPORT Last administered on 01/31/17 15:36; Admin Dose 5 MG; Start 01/28/17 at 16:30 Enoxaparin Sodium (Lovenox) 60 mg Q24H SC Last administered on 02/12/17 23:58 ; Admin Dose 60 MG; Start 02/03/17 at 00:00 Nystatin (Nystatin Powder) 1 applic BID TOP Last administered on 02/13/17 08: 25; Admin Dose 1 APPLIC; Start 02/04/17 at 12:00 Aspirin (Aspirin) 81 mg DAILY GTB Last administered on 02/13/17 08:23; Admin Dose 81 MG; Start 02/04/17 at 15:30 Metoprolol Tartrate (Lopressor) 25 mg BID PO Last administered on 02/13/17 08: 24; Admin Dose 25 MG; Start 02/10/17 at 21:00 Nystatin (Nystatin Susp) 5 ml QID PO Last administered on 02/13/17 12:31; Admin Dose 5 ML; Start 02/11/17 at 21:00 JOSEFA WEINSTEIN M.D. Feb 13, 2017 14:31
--- NOTE | 2017-02-13 15:27 | PN ---
Date/Time of Note Date/Time of Note DATE: 02/13/17 TIME: 15:11 Assessment/Plan VTE Prophylaxis VTE Prophylaxis Intervention: other Lines/Catheters IV Catheter Type (from Nrsg): PICC Line Central line still needed: Yes Urinary Cath still in place: Yes Reason Cath still needed: urinary retention Assessment/Plan Assessment/Plan - GT site bleeding - per GI - Bilateral thalamic infarctions,continue aspirin. - Dysphagia, status post G-tube placement by Dr. Garcia. - Atrial fibrillation with rapid ventricular response. Dr. Armenta is following and cardiology consultation. - Thrombosis of the bilateral cephalic veins. Continue Lovenox. - Acute kidney injury, resolved. - History of CVA - History of hyperlipidemia - Left lower extremity, status post vascular surgery. Further recommendations based on clinical course. Plan of care discussed with Dr. Valdovinos. Subjective 24 Hr Interval Summary Free Text/Dictation NAD, AFIB , hr 113, sleeping, no verbal response at present, afebrile, some clots were found while aspiration from GT site- RN informed DR Garcia and Dr Merritt. TF on hold. dw staff. Subjective hx not possible: pt non-verbal Exam/Review of Systems Vital Signs Vitals Vital Signs Date Time Temp Pulse Resp B/P Pulse Ox O2 Delivery O2 Flow Rate FiO2 02/13/17 13:41 98 21 02/13/17 13:40 61 20 02/13/17 11:05 98.2 127/62 Intake and Output 02/12/17 02/12/17 02/13/17 15:00 23:00 07:00 Intake Total 1000 ml Output Total 850 ml Balance 150 ml Exam Respiratory: clear to auscultation, normal air movement Cardiovascular: nl pulses, other (AFIB, HR 113) Gastrointestinal: non-tender, soft Musculoskeletal: other Neurological: lethargic Skin: other Results Result Diagram: 02/12/17 0628 02/12/17 0628 Results 24 hrs Laboratory Tests Test 02/12/17 17:17 02/12/17 23:55 02/13/17 05:18 02/13/17 12:06 Bedside Glucose 123 109 102 106 Medications Medications Current Medications Miscellaneous Information 1 ea NOTE XX ; Start 01/17/17 at 10:00 Glucose (Glutose) 15 gm Q15M PRN PO DECREASED GLUCOSE; Start 01/17/17 at 10:00 Glucose (Glutose) 22.5 gm Q15M PRN PO DECREASED GLUCOSE; Start 01/17/17 at 10: 00 Dextrose (D50w Syringe) 25 ml Q15M PRN IV DECREASED GLUCOSE; Start 01/17/17 at 10:00 Dextrose (D50w Syringe) 50 ml Q15M PRN IV DECREASED GLUCOSE; Start 01/17/17 at 10:00 Glucagon (Glucagen) 1 mg Q15M PRN IM DECREASED GLUCOSE; Start 01/17/17 at 10:00 Glucose (Glutose) 15 gm Q15M PRN BUCCAL DECREASED GLUCOSE; Start 01/17/17 at 10 :00 Collagenase (Santyl) 1 applic DAILY TOP Last administered on 02/13/17 08:25; Admin Dose 1 APPLIC; Start 01/17/17 at 21:00 IV Flush (NS 10 ml) 10 ml PRN PRN IV IV PROTOCOL; Start 01/22/17 at 12:00 Insulin Aspart (Novolog Insulin Pen) NOVOLOG *MILD* ALGORI... Q6 SC Last administered on 01/26/17 18:02; Admin Dose 1 UNIT; Start 01/23/17 at 18:00 Miscellaneous Information (Pending Santyl Order For Wound Care) This patient dunaway... PRN PRN XX WOUND CARE; Start 01/24/17 at 07:30 Bisacodyl (Dulcolax Supp) 10 mg DAILY PRN [place] CONSTIPATION Last administered on 02/10/17 03:49; Admin Dose 10 MG; Start 01/25/17 at 16:30 Acetaminophen (Tylenol Liquid) 650 mg Q4H PRN NGT PAIN AND OR ELEVATED TEMP Last administered on 01/31/17 14:35; Admin Dose 650 MG; Start 01/26/17 at 09:00 Metoprolol Tartrate (Lopressor) 2.5 mg Q4H PRN IV HR > 110 Last administered on 02/10/17 07:01; Admin Dose 2.5 MG; Start 01/26/17 at 15:00 Midodrine (Proamatine) 5 mg Q8 PRN GTB BLOOD PRESSURE SUPPORT Last administered on 01/31/17 15:36; Admin Dose 5 MG; Start 01/28/17 at 16:30 Enoxaparin Sodium (Lovenox) 60 mg Q24H SC Last administered on 02/12/17 23:58 ; Admin Dose 60 MG; Start 02/03/17 at 00:00 Nystatin (Nystatin Powder) 1 applic BID TOP Last administered on 02/13/17 08: 25; Admin Dose 1 APPLIC; Start 02/04/17 at 12:00 Aspirin (Aspirin) 81 mg DAILY GTB Last administered on 02/13/17 08:23; Admin Dose 81 MG; Start 02/04/17 at 15:30 Metoprolol Tartrate (Lopressor) 25 mg BID PO Last administered on 02/13/17 08: 24; Admin Dose 25 MG; Start 02/10/17 at 21:00 Nystatin (Nystatin Susp) 5 ml QID PO Last administered on 02/13/17 12:31; Admin Dose 5 ML; Start 02/11/17 at 21:00 ALEXIS NAJERA Feb 13, 2017 15:21
[2017-02-13] MEDS: DEXTROSE 5%-0.225% NACL 1,000 ML IV SCH (15:47)
--- NOTE | 2017-02-13 16:58 | CONS ---
Date/Time of Note Date/Time of Note DATE: 02/13/17 TIME: 16:55 Assessment/Plan Assessment/Plan Chief Complaint/Hosp Course assessment/impression: - intermittent leukocytosis - recurrent CVA - possible aspiration, improved - encephalopathy due to CVA. CSF from 01/19/2017: WBC=3, RBC=0, glu 53, pro=61, CSF ([place] serology negative, HSV negative, cocci CF negative, encephalitis meningitis panel could not be done due to a lack of sample), serum ([place] PCR negative, crypto antigen negative, cocci CF negative, histo CF negative). my order of crypto in CSF was cancelled and no reason given - bacteremia due to CoNS, probable contaminant. 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) - A fib - h/o DVT - h/o LLE ischemia s/p thrombolysis and subsequent open thrombectomy and fasciotomy at [facility] 09/2015 - h/o thrombus on DEBBIE per records from [facility] - funguria - Lees catheter was changed 02/11/2017 - bleeding from GT site, and blood clots in tube feed, possible GIB recommendations - continue to monitor Pt off systemic antibiotics - consider d/c PICC if a peripheral IV access is established management d/w Pt's family and RN Problems: Consultation Date/Type/Reason Admit Date/Time Jan 16, 2017 at 15:19 Initial Consult Date 01/17/17 Type of Consultation: Infectious Disease Referring Provider: LAWRENCE PICKERING 24 HR Interval Summary Free Text/Dictation bleeding at GT site, and blood clots in tube feed. NPO at present Subjective hx not possible: pt non-verbal Exam/Review of Systems Vital Signs Vitals Vital Signs Date Time Temp Pulse Resp B/P Pulse Ox O2 Delivery O2 Flow Rate FiO2 02/13/17 16:13 114 02/13/17 15:51 98.0 18 98/68 95 02/13/17 13:41 21 Intake and Output 02/12/17 02/12/17 02/13/17 15:00 23:00 07:00 Intake Total 1000 ml Output Total 850 ml Balance 150 ml Exam Constitutional: frail, non-verbal Psych: confusion Head: atraumatic, normocephalic Eyes: nl conjunctiva, other (eyes are fixed, not pursuing, L ptosis), No icteric ENMT: nl external ears & nose, nl nasal mucosa & septum Respiratory: clear to auscultation, normal air movement Cardiovascular: nl pulses, regular rate and rhythm Gastrointestinal: non-tender, other (GT, dried blood, skin is intact), soft Genitourinary - Female: other (FC) Musculoskeletal: nl extremities to inspection Extremities: normal pulses, No edema Neurological: confused, lethargic Skin: nl turgor Results Result Diagram: 02/12/1762702/12/17627 Results 24 hrs Laboratory Tests Test 02/12/17 17:17 02/12/17 23:55 02/13/17 05:18 02/13/17 12:06 Bedside Glucose 123 109 102 106 Medications Medications Current Medications Miscellaneous Information 1 ea NOTE XX ; Start 01/17/17 at 10:00 Glucose (Glutose) 15 gm Q15M PRN PO DECREASED GLUCOSE; Start 01/17/17 at 10:00 Glucose (Glutose) 22.5 gm Q15M PRN PO DECREASED GLUCOSE; Start 01/17/17 at 10: 00 Dextrose (D50w Syringe) 25 ml Q15M PRN IV DECREASED GLUCOSE; Start 01/17/17 at 10:00 Dextrose (D50w Syringe) 50 ml Q15M PRN IV DECREASED GLUCOSE; Start 01/17/17 at 10:00 Glucagon (Glucagen) 1 mg Q15M PRN IM DECREASED GLUCOSE; Start 01/17/17 at 10:00 Glucose (Glutose) 15 gm Q15M PRN BUCCAL DECREASED GLUCOSE; Start 01/17/17 at 10 :00 Collagenase (Santyl) 1 applic DAILY TOP Last administered on 02/13/17 08:25; Admin Dose 1 APPLIC; Start 01/17/17 at 21:00 IV Flush (NS 10 ml) 10 ml PRN PRN IV IV PROTOCOL; Start 01/22/17 at 12:00 Insulin Aspart (Novolog Insulin Pen) NOVOLOG *MILD* ALGORI... Q6 SC Last administered on 01/26/17 18:02; Admin Dose 1 UNIT; Start 01/23/17 at 18:00 Miscellaneous Information (Pending Santyl Order For Wound Care) This patient dunaway... PRN PRN XX WOUND CARE; Start 01/24/17 at 07:30 Bisacodyl (Dulcolax Supp) 10 mg DAILY PRN [place] CONSTIPATION Last administered on 02/10/17 03:49; Admin Dose 10 MG; Start 01/25/17 at 16:30 Acetaminophen (Tylenol Liquid) 650 mg Q4H PRN NGT PAIN AND OR ELEVATED TEMP Last administered on 01/31/17 14:35; Admin Dose 650 MG; Start 01/26/17 at 09:00 Metoprolol Tartrate (Lopressor) 2.5 mg Q4H PRN IV HR > 110 Last administered on 02/10/17 07:01; Admin Dose 2.5 MG; Start 01/26/17 at 15:00 Midodrine (Proamatine) 5 mg Q8 PRN GTB BLOOD PRESSURE SUPPORT Last administered on 01/31/17 15:36; Admin Dose 5 MG; Start 01/28/17 at 16:30 Enoxaparin Sodium (Lovenox) 60 mg Q24H SC Last administered on 02/12/17 23:58 ; Admin Dose 60 MG; Start 02/03/17 at 00:00 Nystatin (Nystatin Powder) 1 applic BID TOP Last administered on 02/13/17 08: 25; Admin Dose 1 APPLIC; Start 02/04/17 at 12:00 Aspirin (Aspirin) 81 mg DAILY GTB Last administered on 02/13/17 08:23; Admin Dose 81 MG; Start 02/04/17 at 15:30 Metoprolol Tartrate (Lopressor) 25 mg BID PO Last administered on 02/13/17 08: 24; Admin Dose 25 MG; Start 02/10/17 at 21:00 Nystatin 5 ml 5 ml QID PO Last administered on 02/13/17 12:31; Admin Dose 5 ML ; Start 02/11/17 at 21:00 Dextrose/Sodium Chloride (D5-1/4ns) 1,000 ml @ 50 mls/hr Q20H IV Last administered on 02/13/17 15:47; Admin Dose 50 MLS/HR; Start 02/13/17 at 15:30 Eye Lubricant (Artificial Tears Oph) 2 drop Q6H PRN BOTH EYES DRY EYES; Start 02/13/17 at 15:30 TYE STYLES M.D. 12, 2017 16:58
[2017-02-13 18:05] LABS: BASOPHIL # 0.1 10^3/ul (0.0-0.1); BASOPHILS % 0.9 % (0.0-2.0); EOSINOPHILS # 0.3 10^3/ul (0.0-0.5); EOSINOPHILS % 3.4 % (0.0-7.0); HEMATOCRIT 32.1 % (37.0-47.0); HEMOGLOBIN 10.4 g/dl (12.0-16.0); LYMPHOCYTES # 1.6 10^3/ul (0.8-2.9); LYMPHOCYTES % 18.7 % (15.0-51.0); MEAN CORPUSCULAR HEMOGLOBIN 26.9 pg (29.0-33.0); MEAN CORPUSCULAR HGB CONC 32.4 g/dl (32.0-37.0); MEAN CORPUSCULAR VOLUME 83.2 fl (82.0-101.0); MEAN PLATELET VOLUME 12.8 fl (7.4-10.4); MONOCYTE # 0.6 10^3/ul (0.3-0.9); MONOCYTES % 6.8 % (0.0-11.0); NEUTROPHIL # 6.1 10^3/ul (1.6-7.5); NEUTROPHILS % 69.6 % (39.0-77.0); PLATELET COUNT 445 10^3/UL (140-415); RED BLOOD COUNT 3.86 10^6/ul (4.20-5.40); RED CELL DISTRIBUTION WIDTH 17.5 % (11.5-14.5); WHITE BLOOD COUNT 8.8 10^3/ul (4.8-10.8)
[2017-02-14] VITALS (13 sets, daily range): BP systolic 97–169; BP diastolic 55–84; PULSE 84–130; RESP 15–20
[2017-02-14] MEDS: ENOXAPARIN 60 MG/0.6 ML SYG SC SCH ×2 (00:10→23:30)
[2017-02-14] MEDS: LEVALBUTEROL (NEB) 0.63 MG/3 ML AMP HHN SCH ×4 (02:02→20:22)
[2017-02-14] MEDS: INSULIN ASPART [NOVOLOG] 3 ML PEN SC SCH ×5 (06:00→23:32)
[2017-02-14 06:43] LABS: ABNORMAL IP MESSAGE 1; BASOPHIL # 0.1 10^3/ul (0.0-0.1); EOSINOPHILS # 0.3 10^3/ul (0.0-0.5); EOSINOPHILS % 3.1 % (0.0-7.0); HEMATOCRIT 34.3 % (37.0-47.0); HEMOGLOBIN 10.9 g/dl (12.0-16.0); LYMPHOCYTES % 20.9 % (15.0-51.0); MEAN CORPUSCULAR HEMOGLOBIN 26.1 pg (29.0-33.0); MEAN CORPUSCULAR HGB CONC 31.8 g/dl (32.0-37.0); MEAN CORPUSCULAR VOLUME 82.3 fl (82.0-101.0); MEAN PLATELET VOLUME 13.1 fl (7.4-10.4); MONOCYTE # 0.6 10^3/ul (0.3-0.9); MONOCYTES % 6.8 % (0.0-11.0); NEUTROPHIL # 6.4 10^3/ul (1.6-7.5); NEUTROPHILS % 67.7 % (39.0-77.0); PLATELET COUNT 461 10^3/UL (140-415); RED BLOOD COUNT 4.17 10^6/ul (4.20-5.40); RED CELL DISTRIBUTION WIDTH 17.9 % (11.5-14.5); WHITE BLOOD COUNT 9.5 10^3/ul (4.8-10.8)
[2017-02-14 07:03] LABS: POSITIVE DIFF @See below
[2017-02-14 07:24] LABS: CALCIUM 10.3 mg/dl (8.4-10.2); CREATININE 1.04 mg/dl (0.44-1.00); POTASSIUM 3.7 mmol/L (3.5-5.1)
[2017-02-14] MEDS: ASPIRIN 81 MG TAB GTB SCH (08:28)
[2017-02-14] MEDS: NYSTATIN SUSP 5 ML CUP PO SCH ×4 (08:28→20:50)
[2017-02-14] MEDS: NYSTATIN 30 GM POWDER BTL TOP SCH ×2 (08:29→20:51)
[2017-02-14] MEDS: COLLAGENASE 30 GM TUBE TOP SCH (08:29)
[2017-02-14] MEDS: METOPROLOL 25 MG TAB PO SCH ×2 (08:30→20:51)
[2017-02-14] MEDS: DEXTROSE 5%-0.225% NACL 1,000 ML IV SCH (11:03)
[2017-02-14] MEDS: ARTIFICIAL TEARS 15 ML OPH BOTH EYES PRN (11:07)
--- NOTE | 2017-02-14 11:28 | CONS ---
AYLEEN MORALES 02/14/17 1128: Date/Time of Note Date/Time of Note DATE: 02/14/17 TIME: 11:25 Assessment/Plan Assessment/Plan Additional Assessment/Plan - intermittent leukocytosis - CVA - possible aspiration, improved - encephalopathy due to CVA. CSF from 01/19/2017: WBC=3, RBC=0, glu 53, pro=61, CSF ([place] serology negative, HSV negative, cocci CF negative, encephalitis meningitis panel could not be done due to a lack of sample), serum ([place] PCR negative, crypto antigen negative, cocci CF negative, histo CF negative). my order of crypto in CSF was cancelled and no reason given - bacteremia due to CoNS, probable contaminant. 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) - A fib - h/o DVT - h/o LLE ischemia s/p thrombolysis and subsequent open thrombectomy and fasciotomy at [facility] 09/2015 - h/o thrombus on DEBBIE per records from [facility] - funguria - Lees catheter was changed 02/11/2017 - bleeding from GT site, and blood clots in tube feed, possible GIB recommendations - continue to monitor Pt off systemic antibiotics - consider d/c PICC if a peripheral IV access is established - GI f/u of GT bleeding management d/w nurse and Dr Carbajal Consultation Date/Type/Reason Admit Date/Time Jan 16, 2017 at 15:19 Initial Consult Date 01/26/17 Type of Consultation: Infectious Disease Referring Provider: LAWRENCE PICKERING 24 HR Interval Summary Free Text/Dictation Remains unresponsive. Stable off Abx. Still has some bleeding from GT site--not actively bleeding at time of exam. Awaiting GI eval Subjective hx not possible: pt non-verbal Exam/Review of Systems Vital Signs Vitals Vital Signs Date Time Temp Pulse Resp B/P Pulse Ox O2 Delivery O2 Flow Rate FiO2 02/14/17 08:12 97 02/14/17 07:42 98 21 02/14/17 07:41 20 02/14/17 07:13 97.5 115/55 Intake and Output 02/13/17 02/13/17 02/14/17 15:00 23:00 07:00 Intake Total 700 ml Output Total 450 ml 1000 ml Balance -450 ml -300 ml Exam Constitutional: other (obtunded) Head: atraumatic, normocephalic ENMT: nl external ears & nose Neck: supple Respiratory: clear to auscultation Cardiovascular: regular rate and rhythm Gastrointestinal: bowel sounds, non-tender, soft Results Result Diagram: 02/14/17 0600 02/14/17 0541 Results 24 hrs Laboratory Tests Test 02/13/17 12:06 02/13/17 17:16 02/13/17 17:46 02/14/17 00:06 Bedside Glucose 106 113 107 White Blood Count 8.8 Red Blood Count 3.86 L Hemoglobin 10.4 L Hematocrit 32.1 L Mean Corpuscular Volume 83.2 Mean Corpuscular Hemoglobin 26.9 L Mean Corpuscular Hemoglobin Concent 32.4 Red Cell Distribution Width 17.5 H Platelet Count 445 H Mean Platelet Volume 12.8 H Neutrophils % 69.6 Lymphocytes % 18.7 Monocytes % 6.8 Eosinophils % 3.4 Basophils % 0.9 Nucleated Red Blood Cells % 0.0 Neutrophils # 6.1 Lymphocytes # 1.6 Monocytes # 0.6 Eosinophils # 0.3 Basophils # 0.1 Nucleated Red Blood Cells # 0.0 Test 02/14/17 05:25 02/14/17 05:41 02/14/17 06:00 Bedside Glucose 104 Sodium Level 139 Potassium Level 3.7 Chloride Level 102 Carbon Dioxide Level 26 Anion Gap 15 Blood Urea Nitrogen 30 H Creatinine 1.04 H Glucose Level 88 Calcium Level 10.3 H White Blood Count 9.5 Red Blood Count 4.17 L Hemoglobin 10.9 L Hematocrit 34.3 L Mean Corpuscular Volume 82.3 Mean Corpuscular Hemoglobin 26.1 L Mean Corpuscular Hemoglobin Concent 31.8 L Red Cell Distribution Width 17.9 H Platelet Count 461 H Mean Platelet Volume 13.1 H Neutrophils % 67.7 Lymphocytes % 20.9 Monocytes % 6.8 Eosinophils % 3.1 Basophils % 1.0 Nucleated Red Blood Cells % 0.0 Neutrophils # 6.4 Lymphocytes # 2.0 Monocytes # 0.6 Eosinophils # 0.3 Basophils # 0.1 Nucleated Red Blood Cells # 0.0 Medications Medications Current Medications Miscellaneous Information 1 ea NOTE XX ; Start 01/17/17 at 10:00 Glucose (Glutose) 15 gm Q15M PRN PO DECREASED GLUCOSE; Start 01/17/17 at 10:00 Glucose (Glutose) 22.5 gm Q15M PRN PO DECREASED GLUCOSE; Start 01/17/17 at 10: 00 Dextrose (D50w Syringe) 25 ml Q15M PRN IV DECREASED GLUCOSE; Start 01/17/17 at 10:00 Dextrose (D50w Syringe) 50 ml Q15M PRN IV DECREASED GLUCOSE; Start 01/17/17 at 10:00 Glucagon (Glucagen) 1 mg Q15M PRN IM DECREASED GLUCOSE; Start 01/17/17 at 10:00 Glucose (Glutose) 15 gm Q15M PRN BUCCAL DECREASED GLUCOSE; Start 01/17/17 at 10 :00 Collagenase (Santyl) 1 applic DAILY TOP Last administered on 02/14/17 08:29; Admin Dose 1 APPLIC; Start 01/17/17 at 21:00 IV Flush (NS 10 ml) 10 ml PRN PRN IV IV PROTOCOL; Start 01/22/17 at 12:00 Insulin Aspart (Novolog Insulin Pen) NOVOLOG *MILD* ALGORI... Q6 SC Last administered on 01/26/17 18:02; Admin Dose 1 UNIT; Start 01/23/17 at 18:00 Miscellaneous Information (Pending Santyl Order For Wound Care) This patient dunaway... PRN PRN XX WOUND CARE; Start 01/24/17 at 07:30 Bisacodyl (Dulcolax Supp) 10 mg DAILY PRN [place] CONSTIPATION Last administered on 02/10/17 03:49; Admin Dose 10 MG; Start 01/25/17 at 16:30 Acetaminophen (Tylenol Liquid) 650 mg Q4H PRN NGT PAIN AND OR ELEVATED TEMP Last administered on 01/31/17 14:35; Admin Dose 650 MG; Start 01/26/17 at 09:00 Metoprolol Tartrate (Lopressor) 2.5 mg Q4H PRN IV HR > 110 Last administered on 02/10/17 07:01; Admin Dose 2.5 MG; Start 01/26/17 at 15:00 Midodrine (Proamatine) 5 mg Q8 PRN GTB BLOOD PRESSURE SUPPORT Last administered on 01/31/17 15:36; Admin Dose 5 MG; Start 01/28/17 at 16:30 Enoxaparin Sodium (Lovenox) 60 mg Q24H SC Last administered on 02/14/17 00:10 ; Admin Dose 60 MG; Start 02/03/17 at 00:00 Nystatin (Nystatin Powder) 1 applic BID TOP Last administered on 02/14/17 08: 29; Admin Dose 1 APPLIC; Start 02/04/17 at 12:00 Aspirin (Aspirin) 81 mg DAILY GTB Last administered on 02/14/17 08:28; Admin Dose 81 MG; Start 02/04/17 at 15:30 Metoprolol Tartrate (Lopressor) 25 mg BID PO Last administered on 02/14/17 08: 30; Admin Dose 25 MG; Start 02/10/17 at 21:00 Nystatin 5 ml 5 ml QID PO Last administered on 02/14/17 08:28; Admin Dose 5 ML ; Start 02/11/17 at 21:00 Dextrose/Sodium Chloride (D5-1/4ns) 1,000 ml @ 50 mls/hr Q20H IV Last administered on 02/14/17 11:03; Admin Dose 50 MLS/HR; Start 02/13/17 at 15:30 Eye Lubricant (Artificial Tears Oph) 2 drop Q6H PRN BOTH EYES DRY EYES Last administered on 02/14/17 11:07; Admin Dose 2 DROP; Start 02/13/17 at 15:30 TYE CARBAJAL M.D. 02/15/17 1122: Assessment/Plan Assessment/Plan Additional Assessment/Plan Raven attestation: I discussed the management with JOHN Morales and agree with above. Exam/Review of Systems Results Result Diagram: 02/14/17 0600 02/14/17 0541 AYLEEN MORALES Feb 14, 2017 11:28 TYE CARBAJAL M.D. Feb 15, 2017 11:22
[2017-02-14] MEDS: PANTOPRAZOLE 40 MG INJ IV SCH (16:57)
--- NOTE | 2017-02-14 17:08 | CONS ---
Date/Time of Note Date/Time of Note DATE: 02/14/17 TIME: 17:06 Assessment/Plan Assessment/Plan Additional Assessment/Plan 1. Atrial fibrillation 2. Encephalopathy 3. Acute Renal failure 4. Cardiomyopathy-EF 45% 5. Cephalic vein thrombosis 6. Coagulopathy 7. Anemia atrial fibrillation rate controlled Continue Metoprol Continue ASA Continue Insulin Continue Lovenox Continue GI and DVT Prophylaxis Consultation Date/Type/Reason Admit Date/Time Jan 16, 2017 at 15:19 Initial Consult Date 01/26/17 Type of Consultation: Infectious Disease Referring Provider: LAWRENCE PICKERING Exam/Review of Systems Vital Signs Vitals Vital Signs Date Time Temp Pulse Resp B/P Pulse Ox O2 Delivery O2 Flow Rate FiO2 02/14/17 16:15 84 02/14/17 16:01 97.6 20 98/57 94 02/14/17 13:54 21 Intake and Output 02/13/17 02/13/17 02/14/17 15:00 23:00 07:00 Intake Total 700 ml Output Total 450 ml 1000 ml Balance -450 ml -300 ml Exam Head: atraumatic, normocephalic Neck: non-tender, supple Respiratory: clear to auscultation Cardiovascular: irregular rhythm Gastrointestinal: nl liver, spleen, non-tender, soft Extremities: normal pulses Results Result Diagram: 02/14/17 0600 02/14/17 0541 Results 24 hrs Laboratory Tests Test 02/13/17 17:16 02/13/17 17:46 02/14/17 00:06 02/14/17 05:25 White Blood Count 8.8 Red Blood Count 3.86 L Hemoglobin 10.4 L Hematocrit 32.1 L Mean Corpuscular Volume 83.2 Mean Corpuscular Hemoglobin 26.9 L Mean Corpuscular Hemoglobin Concent 32.4 Red Cell Distribution Width 17.5 H Platelet Count 445 H Mean Platelet Volume 12.8 H Neutrophils % 69.6 Lymphocytes % 18.7 Monocytes % 6.8 Eosinophils % 3.4 Basophils % 0.9 Nucleated Red Blood Cells % 0.0 Neutrophils # 6.1 Lymphocytes # 1.6 Monocytes # 0.6 Eosinophils # 0.3 Basophils # 0.1 Nucleated Red Blood Cells # 0.0 Bedside Glucose 113 107 104 Test 02/14/17 05:41 02/14/17 06:00 02/14/17 11:43 Sodium Level 139 Potassium Level 3.7 Chloride Level 102 Carbon Dioxide Level 26 Anion Gap 15 Blood Urea Nitrogen 30 H Creatinine 1.04 H Glucose Level 88 Calcium Level 10.3 H White Blood Count 9.5 Red Blood Count 4.17 L Hemoglobin 10.9 L Hematocrit 34.3 L Mean Corpuscular Volume 82.3 Mean Corpuscular Hemoglobin 26.1 L Mean Corpuscular Hemoglobin Concent 31.8 L Red Cell Distribution Width 17.9 H Platelet Count 461 H Mean Platelet Volume 13.1 H Neutrophils % 67.7 Lymphocytes % 20.9 Monocytes % 6.8 Eosinophils % 3.1 Basophils % 1.0 Nucleated Red Blood Cells % 0.0 Neutrophils # 6.4 Lymphocytes # 2.0 Monocytes # 0.6 Eosinophils # 0.3 Basophils # 0.1 Nucleated Red Blood Cells # 0.0 Bedside Glucose 98 Medications Medications Current Medications Miscellaneous Information 1 ea NOTE XX ; Start 01/17/17 at 10:00 Glucose (Glutose) 15 gm Q15M PRN PO DECREASED GLUCOSE; Start 01/17/17 at 10:00 Glucose (Glutose) 22.5 gm Q15M PRN PO DECREASED GLUCOSE; Start 01/17/17 at 10: 00 Dextrose (D50w Syringe) 25 ml Q15M PRN IV DECREASED GLUCOSE; Start 01/17/17 at 10:00 Dextrose (D50w Syringe) 50 ml Q15M PRN IV DECREASED GLUCOSE; Start 01/17/17 at 10:00 Glucagon (Glucagen) 1 mg Q15M PRN IM DECREASED GLUCOSE; Start 01/17/17 at 10:00 Glucose (Glutose) 15 gm Q15M PRN BUCCAL DECREASED GLUCOSE; Start 01/17/17 at 10 :00 Collagenase (Santyl) 1 applic DAILY TOP Last administered on 02/14/17 08:29; Admin Dose 1 APPLIC; Start 01/17/17 at 21:00 IV Flush (NS 10 ml) 10 ml PRN PRN IV IV PROTOCOL; Start 01/22/17 at 12:00 Insulin Aspart (Novolog Insulin Pen) NOVOLOG *MILD* ALGORI... Q6 SC Last administered on 01/26/17 18:02; Admin Dose 1 UNIT; Start 01/23/17 at 18:00 Miscellaneous Information (Pending Santyl Order For Wound Care) This patient dunaway... PRN PRN XX WOUND CARE; Start 01/24/17 at 07:30 Bisacodyl (Dulcolax Supp) 10 mg DAILY PRN OR CONSTIPATION Last administered on 02/10/17 03:49; Admin Dose 10 MG; Start 01/25/17 at 16:30 Acetaminophen (Tylenol Liquid) 650 mg Q4H PRN NGT PAIN AND OR ELEVATED TEMP Last administered on 01/31/17 14:35; Admin Dose 650 MG; Start 01/26/17 at 09:00 Metoprolol Tartrate (Lopressor) 2.5 mg Q4H PRN IV HR > 110 Last administered on 02/10/17 07:01; Admin Dose 2.5 MG; Start 01/26/17 at 15:00 Midodrine (Proamatine) 5 mg Q8 PRN GTB BLOOD PRESSURE SUPPORT Last administered on 01/31/17 15:36; Admin Dose 5 MG; Start 01/28/17 at 16:30 Enoxaparin Sodium (Lovenox) 60 mg Q24H SC Last administered on 02/14/17 00:10 ; Admin Dose 60 MG; Start 02/03/17 at 00:00 Nystatin (Nystatin Powder) 1 applic BID TOP Last administered on 02/14/17 08: 29; Admin Dose 1 APPLIC; Start 02/04/17 at 12:00 Metoprolol Tartrate (Lopressor) 25 mg BID PO Last administered on 02/14/17 08: 30; Admin Dose 25 MG; Start 02/10/17 at 21:00 Nystatin 5 ml 5 ml QID PO Last administered on 02/14/17 16:57; Admin Dose 5 ML ; Start 02/11/17 at 21:00 Dextrose/Sodium Chloride (D5-1/4ns) 1,000 ml @ 50 mls/hr Q20H IV Last administered on 02/14/17 11:03; Admin Dose 50 MLS/HR; Start 02/13/17 at 15:30 Eye Lubricant (Artificial Tears Oph) 2 drop Q6H PRN BOTH EYES DRY EYES Last administered on 02/14/17 11:07; Admin Dose 2 DROP; Start 02/13/17 at 15:30 Pantoprazole (Protonix Iv) 40 mg BID@06,18 IV Last administered on 8/13/17at 16 :57; Admin Dose 40 MG; Start 02/14/17 at 16:45 JOSEFA WEINSTEIN M.D. Feb 14, 2017 17:07
--- NOTE | 2017-02-14 18:06 | PN ---
Date/Time of Note Date/Time of Note DATE: 02/14/17 TIME: 18:01 Assessment/Plan VTE Prophylaxis VTE Prophylaxis Intervention: other Lines/Catheters IV Catheter Type (from Nrs): PICC Line Central line still needed: Yes Urinary Cath still in place: Yes Reason Cath still needed: urinary retention Assessment/Plan Assessment/Plan - GT site bleeding- none now - per GI - EGD am - Bilateral thalamic infarctions,continue aspirin. - Dysphagia, status post G-tube placement by Dr. Garcia. - Atrial fibrillation with rapid ventricular response. Dr. Armenta is following and cardiology consultation. - Thrombosis of the bilateral cephalic veins. Continue Lovenox. - Acute kidney injury, resolved. - History of CVA - History of hyperlipidemia - Left lower extremity, status post vascular surgery. Further recommendations based on clinical course. Plan of care discussed with Dr. Valdovinos. Subjective 24 Hr Interval Summary Free Text/Dictation NAD, AFIB , HR 104, sleeping, no verbal response at present, afebrile, For EGD tomorrow. some clots were found while aspiration from GT site.TF on hold. dw staff. Subjective hx not possible: pt non-verbal Constitutional: requiring IVF Exam/Review of Systems Vital Signs Vitals Vital Signs Date Time Temp Pulse Resp B/P Pulse Ox O2 Delivery O2 Flow Rate FiO2 02/14/17 16:15 84 02/14/17 16:01 97.6 20 98/57 94 02/14/17 13:54 21 Intake and Output 02/13/17 02/13/17 02/14/17 15:00 23:00 07:00 Intake Total 700 ml Output Total 450 ml 1000 ml Balance -450 ml -300 ml Exam Constitutional: non-verbal Respiratory: diminished breath sounds Cardiovascular: nl pulses, regular rate and rhythm Gastrointestinal: non-tender, other, soft Musculoskeletal: other Extremities: other Neurological: lethargic Results Result Diagram: 02/14/17 0600 02/14/17 0541 Results 24 hrs Laboratory Tests Test 02/14/17 00:06 02/14/17 05:25 02/14/17 05:41 02/14/17 06:00 Bedside Glucose 107 104 Sodium Level 139 Potassium Level 3.7 Chloride Level 102 Carbon Dioxide Level 26 Anion Gap 15 Blood Urea Nitrogen 30 H Creatinine 1.04 H Glucose Level 88 Calcium Level 10.3 H White Blood Count 9.5 Red Blood Count 4.17 L Hemoglobin 10.9 L Hematocrit 34.3 L Mean Corpuscular Volume 82.3 Mean Corpuscular Hemoglobin 26.1 L Mean Corpuscular Hemoglobin Concent 31.8 L Red Cell Distribution Width 17.9 H Platelet Count 461 H Mean Platelet Volume 13.1 H Neutrophils % 67.7 Lymphocytes % 20.9 Monocytes % 6.8 Eosinophils % 3.1 Basophils % 1.0 Nucleated Red Blood Cells % 0.0 Neutrophils # 6.4 Lymphocytes # 2.0 Monocytes # 0.6 Eosinophils # 0.3 Basophils # 0.1 Nucleated Red Blood Cells # 0.0 Test 02/14/17 11:43 02/14/17 17:49 Bedside Glucose 98 105 Medications Medications Current Medications Miscellaneous Information 1 ea NOTE XX ; Start 01/17/17 at 10:00 Glucose (Glutose) 15 gm Q15M PRN PO DECREASED GLUCOSE; Start 01/17/17 at 10:00 Glucose (Glutose) 22.5 gm Q15M PRN PO DECREASED GLUCOSE; Start 01/17/17 at 10: 00 Dextrose (D50w Syringe) 25 ml Q15M PRN IV DECREASED GLUCOSE; Start 01/17/17 at 10:00 Dextrose (D50w Syringe) 50 ml Q15M PRN IV DECREASED GLUCOSE; Start 01/17/17 at 10:00 Glucagon (Glucagen) 1 mg Q15M PRN IM DECREASED GLUCOSE; Start 01/17/17 at 10:00 Glucose (Glutose) 15 gm Q15M PRN BUCCAL DECREASED GLUCOSE; Start 01/17/17 at 10 :00 Collagenase (Santyl) 1 applic DAILY TOP Last administered on 02/14/17 08:29; Admin Dose 1 APPLIC; Start 01/17/17 at 21:00 IV Flush (NS 10 ml) 10 ml PRN PRN IV IV PROTOCOL; Start 01/22/17 at 12:00 Insulin Aspart (Novolog Insulin Pen) NOVOLOG *MILD* ALGORI... Q6 SC Last administered on 01/26/17 18:02; Admin Dose 1 UNIT; Start 01/23/17 at 18:00 Miscellaneous Information (Pending Santyl Order For Wound Care) This patient dunaway... PRN PRN XX WOUND CARE; Start 01/24/17 at 07:30 Bisacodyl (Dulcolax Supp) 10 mg DAILY PRN OR CONSTIPATION Last administered on 02/10/17 03:49; Admin Dose 10 MG; Start 01/25/17 at 16:30 Acetaminophen (Tylenol Liquid) 650 mg Q4H PRN NGT PAIN AND OR ELEVATED TEMP Last administered on 01/31/17 14:35; Admin Dose 650 MG; Start 01/26/17 at 09:00 Metoprolol Tartrate (Lopressor) 2.5 mg Q4H PRN IV HR > 110 Last administered on 02/10/17 07:01; Admin Dose 2.5 MG; Start 01/26/17 at 15:00 Midodrine (Proamatine) 5 mg Q8 PRN GTB BLOOD PRESSURE SUPPORT Last administered on 01/31/17 15:36; Admin Dose 5 MG; Start 01/28/17 at 16:30 Enoxaparin Sodium (Lovenox) 60 mg Q24H SC Last administered on 02/14/17 00:10 ; Admin Dose 60 MG; Start 02/03/17 at 00:00 Nystatin (Nystatin Powder) 1 applic BID TOP Last administered on 02/14/17 08: 29; Admin Dose 1 APPLIC; Start 02/04/17 at 12:00 Metoprolol Tartrate (Lopressor) 25 mg BID PO Last administered on 02/14/17 08: 30; Admin Dose 25 MG; Start 02/10/17 at 21:00 Nystatin 5 ml 5 ml QID PO Last administered on 02/14/17 16:57; Admin Dose 5 ML ; Start 02/11/17 at 21:00 Dextrose/Sodium Chloride (D5-1/4ns) 1,000 ml @ 50 mls/hr Q20H IV Last administered on 02/14/17 11:03; Admin Dose 50 MLS/HR; Start 02/13/17 at 15:30 Eye Lubricant (Artificial Tears Oph) 2 drop Q6H PRN BOTH EYES DRY EYES Last administered on 02/14/17 11:07; Admin Dose 2 DROP; Start 02/13/17 at 15:30 Pantoprazole (Protonix Iv) 40 mg BID@06,18 IV Last administered on 02/14/17 16 :57; Admin Dose 40 MG; Start 8/13/17 at 16:45 ALEXIS NAJERA Feb 14, 2017 18:06
--- NOTE | 2017-02-14 22:16 | CONS ---
DATE OF ADMISSION: 01/16/2017 DATE OF CONSULTATION: 02/14/[address] Valdovinos, Thank you for asking us see Ms. Nilda Mcmullen in GI consultation obtained. As you know, she is a 61-year-old, female, was asked to be seen by me because of bleeding from the gastrostomy site and also from the G-tube. The patient has other medical problems including a history of unresponsive status. She has a history of CVA, dysphagia, status post placement of a G tube, atrial fibrillation, kidney injury, dyslipidemia, status post vascular surgery in the past. MEDICATION: Currently include notes statin suspension, metoprolol, midodrine, levalbuterol, metoprolol, insulin, glucagon. PHYSICAL EXAMINATION: GENERAL APPEARANCE: The patient is a 61-year-old, female, who this time is unresponsive. VITAL SIGNS: Pulse is 67, blood pressure is 103/62. HEART: Cardiovascular exam: Atrial fibrillation. LUNGS: Respiratory system: Normal breath sounds. ABDOMEN: Showed a G-tube in place. There is evidence of a clot around the gastrostomy site noted. No palpable masses. No distention of the abdomen. LABORATORY: Hemoglobin 10.3, hematocrit 34.4. WBC count 9,500, platelets 461,000. Potassium 3.7, BUN 30, creatinine is 1.04. The chest x-ray shows diffuse interstitial prominence and cardiomegaly. IMPRESSION: Clinical impression from the GI standpoint patient seems to have upper GI bleeding. Rule out peptic ulcer disease. Gastrostomy site ulcer disease. History of CVA, atrial fibrillation. PLAN: At this time, recommend continue Protonix and recommend upper endoscopy. Once again, Dr. Valdovinos, thank you for this consultation. Dictated By: Santiago Garcia MD /ange/ /Document#: [id number] CC: Kana Valdovinos MD;*End*
[2017-02-15] VITALS (21 sets, daily range): BP systolic 89–128; BP diastolic 47–86; PULSE 81–114; RESP 13–22
[2017-02-15] MEDS: LEVALBUTEROL (NEB) 0.63 MG/3 ML AMP HHN SCH ×4 (01:33→19:48)
[2017-02-15] MEDS: PANTOPRAZOLE 40 MG INJ IV SCH ×2 (05:36→18:34)
[2017-02-15] MEDS: INSULIN ASPART [NOVOLOG] 3 ML PEN SC SCH ×3 (05:37→18:00)
[2017-02-15] MEDS: DEXTROSE 5%-0.225% NACL 1,000 ML IV SCH (06:28)
[2017-02-15 07:41] LABS: BASOPHIL # 0.1 10^3/ul (0.0-0.1); BASOPHILS % 1.1 % (0.0-2.0); EOSINOPHILS # 0.2 10^3/ul (0.0-0.5); EOSINOPHILS % 2.5 % (0.0-7.0); HEMOGLOBIN 11.1 g/dl (12.0-16.0); LYMPHOCYTES # 1.4 10^3/ul (0.8-2.9); LYMPHOCYTES % 15.9 % (15.0-51.0); MEAN CORPUSCULAR HEMOGLOBIN 26.6 pg (29.0-33.0); MEAN CORPUSCULAR HGB CONC 32.6 g/dl (32.0-37.0); MEAN CORPUSCULAR VOLUME 81.3 fl (82.0-101.0); MEAN PLATELET VOLUME 12.5 fl (7.4-10.4); MONOCYTE # 0.6 10^3/ul (0.3-0.9); MONOCYTES % 6.3 % (0.0-11.0); NEUTROPHIL # 6.5 10^3/ul (1.6-7.5); NEUTROPHILS % 73.9 % (39.0-77.0); PLATELET COUNT 410 10^3/UL (140-415); RED BLOOD COUNT 4.18 10^6/ul (4.20-5.40); RED CELL DISTRIBUTION WIDTH 17.6 % (11.5-14.5); WHITE BLOOD COUNT 8.9 10^3/ul (4.8-10.8)
[2017-02-15 08:07] LABS: CALCIUM 10.4 mg/dl (8.4-10.2); CREATININE 1.01 mg/dl (0.44-1.00); POTASSIUM 3.6 mmol/L (3.5-5.1)
[2017-02-15] MEDS: METOPROLOL 25 MG TAB PO SCH ×2 (09:00→21:02)
[2017-02-15] MEDS: COLLAGENASE 30 GM TUBE TOP SCH (09:00)
[2017-02-15] MEDS: NYSTATIN 30 GM POWDER BTL TOP SCH ×2 (09:00→21:01)
[2017-02-15] MEDS: NYSTATIN SUSP 5 ML CUP PO SCH ×4 (09:00→21:01)
[2017-02-15] MEDS ORDERED: PROPOFOL 20 ML ONE (11:43)
[2017-02-15] MEDS ORDERED: LIDOCAINE 2% (SDV) 5 ML INJ ONE (11:43)
--- NOTE | 2017-02-15 12:25 | OPPN ---
Date/Time of Note Date/Time of Note DATE: 02/15/17 TIME: 12:20 Proc Note GI Procedure date: Feb 15, 2017 Pre-procedure Diagnosis Upper GI bleeding rule out peptic ulcer disease gastrostomy site ulcer disease. GERD Post-procedure Diagnosis Diffuse moderate degree of gastritis G-tube in the place No gastrostomy site ulcer Operation Performed EGD Surgeon: CHELSEA PINEDO MD Tourniquet Time: None Estimated blood loss: none (None) Transfusion Required: no Specimen: none Specimens Gastric biopsy to rule out H. pylori infection Grafts/Implants: none Grafts/Implants None Tubes/Drains None Complications: no Pt Condition post procedure: stable Indications Upper GI bleeding rule out ulcer disease Operative\Procedure Findings Esophagogastroduodenoscopy Patient was put on left lateral position informed written consent was obtained from the family. Intravenous anesthesia was given by SHAMPOOER flow when the patient become somnolent Olympus video upper endoscope was introduced into the oropharynx then into the esophagus. Anterior esophagus was examined which showed normal mucosal pattern cope with this and was advanced into the stomach stomach showed evidence of the gastrostomy site in place. No gastrostomy site also noted moderate degree of erythema and friability of the mucosa of the stomach noted no active bleeding seen at this time She was done from the antrum and the fundus of the stomach to rule out H. pylori infection Because of the duodenum appeared normal. At this time scope was withdrawn and the procedure was terminated Plan recommend Protonix IV 40 mg every 12 hours Resume the feeding End of dictation please send copy to my office and also to Dr. Moises salazar cc ; CHELSEA LLAMAS MD Feb 15, 2017 12:25
[2017-02-15] MEDS ORDERED: FENTAnyl 50 MCG/ML VIAL IV PRN ×3 (13:00)
[2017-02-15] MEDS ORDERED: LABETALOL HCL 20MG INJ IV PRN (13:00)
[2017-02-15] MEDS ORDERED: EPHEDrine SULFATE 50 MG/5 ML SYG IV PRN (13:00)
[2017-02-15] MEDS ORDERED: ALBUTEROL 0.083% (NEB) 2.5 MG/3 ML AMP HHN PRN (13:00)
[2017-02-15] MEDS ORDERED: ONDANSETRON 4 MG INJ IV PRN (13:00)
--- NOTE | 2017-02-15 16:02 | PN ---
Date/Time of Note Date/Time of Note DATE: 02/15/17 TIME: 15:57 Assessment/Plan VTE Prophylaxis VTE Prophylaxis Intervention: SCD's Lines/Catheters [facility] [place] Urinary Cath still in place: Yes Reason Cath still needed: urinary retention Assessment/Plan Chief Complaint/Hosp Course Patient is status post EGD today with notion of gastritis, no change in neuro status, mild hematuria. Check: CBC and BMP tomorrow, aspirin was held. Assessment/Plan - Bilateral thalamic infarctions. - Dysphagia, status post G-tube placement by Dr. Garcia. - Atrial fibrillation with rapid ventricular response. Dr. Armenta is following and cardiology consultation. - Thrombosis of the bilateral cephalic veins. Continue Lovenox. - Acute kidney injury, resolved. - History of CVA - History of hyperlipidemia - Left lower extremity, status post vascular surgery. Further recommendations based on clinical course. Plan of care discussed with Dr. Valdovinos. Problems: Exam/Review of Systems Vital Signs Vitals Vital Signs Date Time Temp Pulse Resp B/P Pulse Ox O2 Delivery O2 Flow Rate FiO2 02/15/17 15:55 97.9 97 19 100/57 100 02/15/17 15:20 21 02/15/17 13:05 Room Air Intake and Output 02/14/17 02/14/17 02/15/17 15:00 23:00 07:00 Intake Total 600 ml 550 ml Output Total 400 ml 700 ml Balance 200 ml -150 ml Exam Psych: confusion Neck: supple Respiratory: normal air movement Cardiovascular: irregular rhythm Gastrointestinal: other (G-tube), soft Extremities: normal pulses Neurological: focal weakness Results Result Diagram: 02/15/17 0719 02/15/17 0719 Results 24 hrs Laboratory Tests Test 02/14/17 17:49 02/14/17 23:31 02/15/17 05:33 02/15/17 07:19 Bedside Glucose 105 110 99 White Blood Count 8.9 Red Blood Count 4.18 L Hemoglobin 11.1 L Hematocrit 34.0 L Mean Corpuscular Volume 81.3 L Mean Corpuscular Hemoglobin 26.6 L Mean Corpuscular Hemoglobin Concent 32.6 Red Cell Distribution Width 17.6 H Platelet Count 410 Mean Platelet Volume 12.5 H Neutrophils % 73.9 Lymphocytes % 15.9 Monocytes % 6.3 Eosinophils % 2.5 Basophils % 1.1 Nucleated Red Blood Cells % 0.0 Neutrophils # 6.5 Lymphocytes # 1.4 Monocytes # 0.6 Eosinophils # 0.2 Basophils # 0.1 Nucleated Red Blood Cells # 0.0 Sodium Level 138 Potassium Level 3.6 Chloride Level 103 Carbon Dioxide Level 22 Anion Gap 17 H Blood Urea Nitrogen 26 H Creatinine 1.01 H Glucose Level 115 Calcium Level 10.4 H Test 02/15/17 13:50 Bedside Glucose 110 Medications Medications Current Medications Miscellaneous Information 1 ea NOTE XX ; Start 01/17/17 at 10:00 Glucose (Glutose) 15 gm Q15M PRN PO DECREASED GLUCOSE; Start 01/17/17 at 10:00 Glucose (Glutose) 22.5 gm Q15M PRN PO DECREASED GLUCOSE; Start 01/17/17 at 10: 00 Dextrose (D50w Syringe) 25 ml Q15M PRN IV DECREASED GLUCOSE; Start 01/17/17 at 10:00 Dextrose (D50w Syringe) 50 ml Q15M PRN IV DECREASED GLUCOSE; Start 01/17/17 at 10:00 Glucagon (Glucagen) 1 mg Q15M PRN IM DECREASED GLUCOSE; Start 01/17/17 at 10:00 Glucose (Glutose) 15 gm Q15M PRN BUCCAL DECREASED GLUCOSE; Start 01/17/17 at 10 :00 Collagenase (Santyl) 1 applic DAILY TOP Last administered on 02/15/17 09:00; Admin Dose 1 APPLIC; Start 01/17/17 at 21:00 IV Flush (NS 10 ml) 10 ml PRN PRN IV IV PROTOCOL; Start 01/22/17 at 12:00 Insulin Aspart (Novolog Insulin Pen) NOVOLOG *MILD* ALGORI... Q6 SC Last administered on 01/26/17 18:02; Admin Dose 1 UNIT; Start 01/23/17 at 18:00 Miscellaneous Information (Pending Santyl Order For Wound Care) This patient dunaway... PRN PRN XX WOUND CARE; Start 01/24/17 at 07:30 Bisacodyl (Dulcolax Supp) 10 mg DAILY PRN [place] CONSTIPATION Last administered on 02/10/17 03:49; Admin Dose 10 MG; Start 01/25/17 at 16:30 Acetaminophen (Tylenol Liquid) 650 mg Q4H PRN NGT PAIN AND OR ELEVATED TEMP Last administered on 01/31/17 14:35; Admin Dose 650 MG; Start 01/26/17 at 09:00 Metoprolol Tartrate (Lopressor) 2.5 mg Q4H PRN IV HR > 110 Last administered on 02/10/17 07:01; Admin Dose 2.5 MG; Start 01/26/17 at 15:00 Midodrine (Proamatine) 5 mg Q8 PRN GTB BLOOD PRESSURE SUPPORT Last administered on 01/31/17 15:36; Admin Dose 5 MG; Start 01/28/17 at 16:30 Enoxaparin Sodium (Lovenox) 60 mg Q24H SC Last administered on 02/14/17 23:30 ; Admin Dose 60 MG; Start 02/03/17 at 00:00 Nystatin (Nystatin Powder) 1 applic BID TOP Last administered on 02/15/17 09: 00; Admin Dose 1 APPLIC; Start 02/04/17 at 12:00 Metoprolol Tartrate (Lopressor) 25 mg BID PO Last administered on 02/14/17 08: 30; Admin Dose 25 MG; Start 02/10/17 at 21:00 Nystatin 5 ml 5 ml QID PO Last administered on 02/15/17 13:00; Admin Dose 5 ML ; Start 02/11/17 at 21:00 Dextrose/Sodium Chloride (D5-1/4ns) 1,000 ml @ 50 mls/hr Q20H IV Last administered on 02/15/17 06:28; Admin Dose 50 MLS/HR; Start 02/13/17 at 15:30 Eye Lubricant (Artificial Tears Oph) 2 drop Q6H PRN BOTH EYES DRY EYES Last administered on 02/14/17 11:07; Admin Dose 2 DROP; Start 02/13/17 at 15:30 Pantoprazole (Protonix Iv) 40 mg BID@06,18 IV Last administered on 02/15/17 05 :36; Admin Dose 40 MG; Start 02/14/17 at 16:45 LAWRENCE PICKERING Feb 15, 2017 16:02
--- NOTE | 2017-02-15 16:50 | CONS ---
Date/Time of Note Date/Time of Note DATE: 02/15/17 TIME: 16:48 Assessment/Plan Assessment/Plan Additional Assessment/Plan 1. AF-mainly rate controlled better now - will hold off on pacer given overall state. STABLE. 2.Hypotension-now improved on midodrine - stable - Rx as needed, STABLE. 3.encephalopathy/ams - multifatorial 4.coagulopathy-now decreased with coumadin held - on lovenox 5. Acute Renal failure-? secondary to vanc - will monitor now 6.Leukocytosis 7. Cardiomyopathy-EF 45% - euvolemic byexam. 8. Cephalic vein thrombosis 9. Dysphagia s/p PEG - Rx with meds now Consultation Date/Type/Reason Admit Date/Time Jan 16, 2017 at 15:19 Initial Consult Date 01/26/17 Type of Consultation: Infectious Disease Referring Provider: LAWRENCE PICKERING 24 HR Interval Summary Free Text/Dictation NO acute events - HR well controlled mostly ROS: No fever, no chills, no nausea, no vomiting, no diarrhea/constipation No recent weight changes No chest pain, no PND, no orthopnea No dizziness, blurred vision No thirst, no heat or cold intolerance (per nurse) Exam/Review of Systems Vital Signs Vitals Vital Signs Date Time Temp Pulse Resp B/P Pulse Ox O2 Delivery O2 Flow Rate FiO2 02/15/17 15:55 97.9 97 19 100/57 100 02/15/17 15:20 21 02/15/17 13:05 Room Air Intake and Output 02/14/17 02/14/17 02/15/17 15:00 23:00 07:00 Intake Total 600 ml 550 ml Output Total 400 ml 700 ml Balance 200 ml -150 ml Exam General: WN/WD/NAD, AOx 0 HEENT: Unicetric/atraumatic/EOMI (does not follow commands) NECK: JVD elevated, no thyromegaly Lymph: no lymphadenopathy HEART: IRregular with no S3, II/ systolic murmur at apex LUNGS: Coarse sounds ABD: soft, NT, ND, +BS : Intact Neuro: h/o CVA SKIN: chronic changes EXT: trace edema Results Result Diagram: 02/15/17 0719 02/15/17 0719 Results 24 hrs Laboratory Tests Test 02/14/17 17:49 02/14/17 23:31 02/15/17 05:33 02/15/17 07:19 Bedside Glucose 105 110 99 White Blood Count 8.9 Red Blood Count 4.18 L Hemoglobin 11.1 L Hematocrit 34.0 L Mean Corpuscular Volume 81.3 L Mean Corpuscular Hemoglobin 26.6 L Mean Corpuscular Hemoglobin Concent 32.6 Red Cell Distribution Width 17.6 H Platelet Count 410 Mean Platelet Volume 12.5 H Neutrophils % 73.9 Lymphocytes % 15.9 Monocytes % 6.3 Eosinophils % 2.5 Basophils % 1.1 Nucleated Red Blood Cells % 0.0 Neutrophils # 6.5 Lymphocytes # 1.4 Monocytes # 0.6 Eosinophils # 0.2 Basophils # 0.1 Nucleated Red Blood Cells # 0.0 Sodium Level 138 Potassium Level 3.6 Chloride Level 103 Carbon Dioxide Level 22 Anion Gap 17 H Blood Urea Nitrogen 26 H Creatinine 1.01 H Glucose Level 115 Calcium Level 10.4 H Test 02/15/17 13:50 Bedside Glucose 110 Medications Medications Current Medications Miscellaneous Information 1 ea NOTE XX ; Start 01/17/17 at 10:00 Glucose (Glutose) 15 gm Q15M PRN PO DECREASED GLUCOSE; Start 01/17/17 at 10:00 Glucose (Glutose) 22.5 gm Q15M PRN PO DECREASED GLUCOSE; Start 01/17/17 at 10: 00 Dextrose (D50w Syringe) 25 ml Q15M PRN IV DECREASED GLUCOSE; Start 01/17/17 at 10:00 Dextrose (D50w Syringe) 50 ml Q15M PRN IV DECREASED GLUCOSE; Start 01/17/17 at 10:00 Glucagon (Glucagen) 1 mg Q15M PRN IM DECREASED GLUCOSE; Start 01/17/17 at 10:00 Glucose (Glutose) 15 gm Q15M PRN BUCCAL DECREASED GLUCOSE; Start 01/17/17 at 10 :00 Collagenase (Santyl) 1 applic DAILY TOP Last administered on 02/15/17 09:00; Admin Dose 1 APPLIC; Start 01/17/17 at 21:00 IV Flush (NS 10 ml) 10 ml PRN PRN IV IV PROTOCOL; Start 01/22/17 at 12:00 Insulin Aspart (Novolog Insulin Pen) NOVOLOG *MILD* ALGORI... Q6 SC Last administered on 01/26/17 18:02; Admin Dose 1 UNIT; Start 01/23/17 at 18:00 Miscellaneous Information (Pending Santyl Order For Wound Care) This patient dunaway... PRN PRN XX WOUND CARE; Start 01/24/17 at 07:30 Bisacodyl (Dulcolax Supp) 10 mg DAILY PRN [place] CONSTIPATION Last administered on 02/10/17 03:49; Admin Dose 10 MG; Start 01/25/17 at 16:30 Acetaminophen (Tylenol Liquid) 650 mg Q4H PRN NGT PAIN AND OR ELEVATED TEMP Last administered on 01/31/17 14:35; Admin Dose 650 MG; Start 01/26/17 at 09:00 Metoprolol Tartrate (Lopressor) 2.5 mg Q4H PRN IV HR > 110 Last administered on 02/10/17 07:01; Admin Dose 2.5 MG; Start 01/26/17 at 15:00 Midodrine (Proamatine) 5 mg Q8 PRN GTB BLOOD PRESSURE SUPPORT Last administered on 01/31/17 15:36; Admin Dose 5 MG; Start 01/28/17 at 16:30 Enoxaparin Sodium (Lovenox) 60 mg Q24H SC Last administered on 02/14/17 23:30 ; Admin Dose 60 MG; Start 02/03/17 at 00:00; Status Future Hold Nystatin (Nystatin Powder) 1 applic BID TOP Last administered on 02/15/17 09: 00; Admin Dose 1 APPLIC; Start 02/04/17 at 12:00 Metoprolol Tartrate (Lopressor) 25 mg BID PO Last administered on 02/14/17 08: 30; Admin Dose 25 MG; Start 02/10/17 at 21:00 Nystatin 5 ml 5 ml QID PO Last administered on 02/15/17 13:00; Admin Dose 5 ML ; Start 02/11/17 at 21:00 Dextrose/Sodium Chloride (D5-1/4ns) 1,000 ml @ 50 mls/hr Q20H IV Last administered on 02/15/17 06:28; Admin Dose 50 MLS/HR; Start 02/13/17 at 15:30 Eye Lubricant (Artificial Tears Oph) 2 drop Q6H PRN BOTH EYES DRY EYES Last administered on 02/14/17 11:07; Admin Dose 2 DROP; Start 02/13/17 at 15:30 Pantoprazole (Protonix Iv) 40 mg BID@06,18 IV Last administered on 02/15/17t 05 :36; Admin Dose 40 MG; Start 02/14/17 at 16:45 YAJAIRA ALVAREZ MD Feb 15, 2017 16:50
[2017-02-15] MEDS: ACETAMINOPHEN 650MG/20.3ML CUP NGT PRN (21:01)
[2017-02-15] MEDS: ARTIFICIAL TEARS 15 ML OPH BOTH EYES PRN (21:02)
[2017-02-16] VITALS (14 sets, daily range): BP systolic 89–120; BP diastolic 50–63; PULSE 90–110; RESP 18–20
[2017-02-16] MEDS: LEVALBUTEROL (NEB) 0.63 MG/3 ML AMP HHN SCH ×4 (01:56→21:06)
[2017-02-16] MEDS: DEXTROSE 5%-0.225% NACL 1,000 ML IV SCH ×2 (03:30→23:13)
[2017-02-16] MEDS: PANTOPRAZOLE 40 MG INJ IV SCH ×2 (05:32→17:26)
[2017-02-16] MEDS: INSULIN ASPART [NOVOLOG] 3 ML PEN SC SCH ×5 (05:33→23:17)
[2017-02-16 07:58] LABS: BASOPHIL # 0.1 10^3/ul (0.0-0.1); EOSINOPHILS # 0.2 10^3/ul (0.0-0.5); EOSINOPHILS % 2.1 % (0.0-7.0); HEMATOCRIT 32.1 % (37.0-47.0); HEMOGLOBIN 10.3 g/dl (12.0-16.0); MEAN CORPUSCULAR HEMOGLOBIN 26.8 pg (29.0-33.0); MEAN CORPUSCULAR HGB CONC 32.1 g/dl (32.0-37.0); MEAN CORPUSCULAR VOLUME 83.4 fl (82.0-101.0); MEAN PLATELET VOLUME 12.9 fl (7.4-10.4); MONOCYTE # 0.4 10^3/ul (0.3-0.9); MONOCYTES % 5.6 % (0.0-11.0); NEUTROPHILS % 77.6 % (39.0-77.0); PLATELET COUNT 349 10^3/UL (140-415); RED BLOOD COUNT 3.85 10^6/ul (4.20-5.40); RED CELL DISTRIBUTION WIDTH 17.5 % (11.5-14.5); WHITE BLOOD COUNT 7.3 10^3/ul (4.8-10.8)
[2017-02-16 08:26] LABS: INR 0.96; PARTIAL THROMBOPLASTIN TIME 28.1 Sec (25.0-35.0); PROTIME 12.8 Sec (12.2-14.2); THROMBIN TIME 16.4 SEC (13.8-19.1)
[2017-02-16 09:00] LABS: CALCIUM 9.6 mg/dl (8.4-10.2); CREATININE 0.96 mg/dl (0.44-1.00); POTASSIUM 3.8 mmol/L (3.5-5.1)
[2017-02-16] MEDS: NYSTATIN 30 GM POWDER BTL TOP SCH ×2 (09:04→21:01)
[2017-02-16] MEDS: NYSTATIN SUSP 5 ML CUP PO SCH ×4 (09:04→20:59)
[2017-02-16] MEDS: METOPROLOL 25 MG TAB PO SCH ×2 (09:04→21:00)
[2017-02-16] MEDS: COLLAGENASE 30 GM TUBE TOP SCH (09:06)
--- NOTE | 2017-02-16 09:35 | CONS ---
Date/Time of Note Date/Time of Note DATE: 02/16/17 TIME: 09:33 Assessment/Plan Assessment/Plan Additional Assessment/Plan 1. AF-mainly rate controlled better now - will hold off on pacer given overall state. STABLE n tele - no intervention planned 2.Hypotension-now improved on midodrine - stable - Rx as needed, Borderline - tolerating feeds now. 3.encephalopathy/ams - multifatorial 4.coagulopathy-now decreased with coumadin held - on lovenox 5. Acute Renal failure-? secondary to vanc - will monitor now 6.Leukocytosis 7. Cardiomyopathy-EF 45% - euvolemic byexam. 8. Cephalic vein thrombosis 9. Dysphagia s/p PEG - Rx with meds now Consultation Date/Type/Reason Admit Date/Time Jan 16, 2017 at 15:19 Initial Consult Date 01/26/17 Type of Consultation: Infectious Disease Referring Provider: LAWRENCE PICKERING 24 HR Interval Summary Free Text/Dictation STABLE no tele - no intervention planned - will monitor clinically mow ROS: No fever, no chills, no nausea, no vomiting, no diarrhea/constipation No recent weight changes No chest pain, no PND, no orthopnea No dizziness, blurred vision No thirst, no heat or cold intolerance (per nurse) Exam/Review of Systems Vital Signs Vitals Vital Signs Date Time Temp Pulse Resp B/P Pulse Ox O2 Delivery O2 Flow Rate FiO2 02/16/17 08:16 79 20 98 21 02/16/17 07:09 98.2 105/55 02/15/17 13:05 Room Air Intake and Output 02/15/17 02/15/17 02/16/17 15:00 23:00 07:00 Intake Total 800 ml 1000 ml Output Total 450 ml 1500 ml Balance 350 ml -500 ml Exam General: WN/WD/NAD, AOx 0 HEENT: Unicetric/atraumatic/EOMI (does not follow commands) NECK: JVD elevated, no thyromegaly Lymph: no lymphadenopathy HEART: Ir Irregular with no S3, II/ systolic murmur at apex LUNGS: Coarse sounds ABD: soft, NT, ND, +BS : Intact Neuro: post CVA SKIN: chronic changes EXT: trace edema Results Result Diagram: 02/16/17 0657 02/16/17 0657 Results 24 hrs Laboratory Tests Test 02/15/17 13:50 02/15/17 18:36 02/16/17 00:24 02/16/17 05:31 Bedside Glucose 110 138 116 128 Test 02/16/17 06:57 White Blood Count 7.3 Red Blood Count 3.85 L Hemoglobin 10.3 L Hematocrit 32.1 L Mean Corpuscular Volume 83.4 Mean Corpuscular Hemoglobin 26.8 L Mean Corpuscular Hemoglobin Concent 32.1 Red Cell Distribution Width 17.5 H Platelet Count 357 Mean Platelet Volume 12.9 H Neutrophils % 77.6 H Lymphocytes % 13.0 L Monocytes % 5.6 Eosinophils % 2.1 Basophils % 1.0 Nucleated Red Blood Cells % 0.0 Neutrophils # (Manual) 5.7 Lymphocytes # 1.0 Monocytes # 0.4 Eosinophils # 0.2 Basophils # 0.1 Nucleated Red Blood Cells # 0.0 Prothrombin Time 12.8 Prothrombin Time Ratio 1.0 INR International Normalized Ratio 0.96 Activated Partial Thromboplast Time 28.1 Thrombin Time 16.4 Sodium Level 143 Potassium Level 3.8 Chloride Level 101 Carbon Dioxide Level 26 Anion Gap 20 H Blood Urea Nitrogen 24 H Creatinine 0.96 Glucose Level 102 Calcium Level 9.6 Medications Medications Current Medications Miscellaneous Information 1 ea NOTE XX ; Start 01/17/17 at 10:00 Glucose (Glutose) 15 gm Q15M PRN PO DECREASED GLUCOSE; Start 01/17/17 at 10:00 Glucose (Glutose) 22.5 gm Q15M PRN PO DECREASED GLUCOSE; Start 01/17/17 at 10: 00 Dextrose (D50w Syringe) 25 ml Q15M PRN IV DECREASED GLUCOSE; Start 01/17/17 at 10:00 Dextrose (D50w Syringe) 50 ml Q15M PRN IV DECREASED GLUCOSE; Start 01/17/17 at 10:00 Glucagon (Glucagen) 1 mg Q15M PRN IM DECREASED GLUCOSE; Start 01/17/17 at 10:00 Glucose (Glutose) 15 gm Q15M PRN BUCCAL DECREASED GLUCOSE; Start 01/17/17 at 10 :00 Collagenase (Santyl) 1 applic DAILY TOP Last administered on 02/16/17t 09:06; Admin Dose 1 APPLIC; Start 01/17/17 at 21:00 IV Flush (NS 10 ml) 10 ml PRN PRN IV IV PROTOCOL; Start 01/22/17 at 12:00 Insulin Aspart (Novolog Insulin Pen) NOVOLOG *MILD* ALGORI... Q6 SC Last administered on 01/26/17 18:02; Admin Dose 1 UNIT; Start 01/23/17 at 18:00 [facility] This patient dunaway... PRN PRN XX WOUND CARE; Start 01/24/17 at 07:30 Bisacodyl (Dulcolax Supp) 10 mg DAILY PRN [place] CONSTIPATION Last administered on 02/10/17 03:49; Admin Dose 10 MG; Start 01/25/17 at 16:30 Acetaminophen (Tylenol Liquid) 650 mg Q4H PRN NGT PAIN AND OR ELEVATED TEMP Last administered on 02/15/17 21:01; Admin Dose 650 MG; Start 01/26/17 at 09:00 Metoprolol Tartrate (Lopressor) 2.5 mg Q4H PRN IV HR > 110 Last administered on 02/10/17 07:01; Admin Dose 2.5 MG; Start 01/26/17 at 15:00 Midodrine (Proamatine) 5 mg Q8 PRN GTB BLOOD PRESSURE SUPPORT Last administered on 01/31/17 15:36; Admin Dose 5 MG; Start 01/28/17 at 16:30 Enoxaparin Sodium (Lovenox) 60 mg Q24H SC Last administered on 02/14/17 23:30 ; Admin Dose 60 MG; Start 02/03/17 at 00:00; Status Future Hold Nystatin (Nystatin Powder) 1 applic BID TOP Last administered on 02/16/17 09: 04; Admin Dose 1 APPLIC; Start 02/04/17 at 12:00 Metoprolol Tartrate (Lopressor) 25 mg BID PO Last administered on 02/16/17 09: 04; Admin Dose 25 MG; Start 02/10/17 at 21:00 Nystatin 5 ml 5 ml QID PO Last administered on 02/16/17 09:04; Admin Dose 5 ML ; Start 02/11/17 at 21:00 Dextrose/Sodium Chloride (D5-1/4ns) 1,000 ml @ 50 mls/hr Q20H IV Last administered on 02/16/17 03:30; Admin Dose 50 MLS/HR; Start 02/13/17 at 15:30 Eye Lubricant (Artificial Tears Oph) 2 drop Q6H PRN BOTH EYES DRY EYES Last administered on 02/15/17 21:02; Admin Dose 2 DROP; Start 02/13/17 at 15:30 Pantoprazole (Protonix Iv) 40 mg BID@06,18 IV Last administered on 02/16/17 05 :32; Admin Dose 40 MG; Start 02/14/17 at 16:45 YAJAIRA ALVAREZ MD Feb 16, 2017 09:35
[2017-02-16] MEDS: ARTIFICIAL TEARS 15 ML OPH BOTH EYES PRN ×2 (13:30→21:02)
--- NOTE | 2017-02-16 15:09 | PN ---
Date/Time of Note Date/Time of Note DATE: 02/16/17 TIME: 15:06 Assessment/Plan VTE Prophylaxis VTE Prophylaxis Intervention: SCD's Lines/Catheters IV Catheter Type (from [facility]): PICC Line Central line still needed: Yes Urinary Cath still in place: Yes Reason Cath still needed: urinary retention Assessment/Plan Chief Complaint/Hosp Course Patient had a recent clots from G-tube status post EGD yesterday, also noted hematuria currently improving. We will continue to monitor patient's for bleeding. Lovenox was stopped, resume aspirin. Patient continues to have atrial fibrillation with occasional rate going above 100, continued on metoprolol. Assessment/Plan - Possible bleeding from G-tube and hematuria. Status post EGD was notion of gastritis, continue Protonix. Monitor for signs of bleeding bleeding, monitor H &H. - Bilateral thalamic infarctions. - Dysphagia, status post G-tube placement by Dr. Garcia. - Atrial fibrillation with rapid ventricular response. Dr. Armenta is following and cardiology consultation. - Thrombosis of the bilateral cephalic veins. - Acute kidney injury, resolved. - History of CVA - History of hyperlipidemia - Left lower extremity, status post vascular surgery. Further recommendations based on clinical course. Plan of care discussed with Dr. Valdovinos. Problems: Exam/Review of Systems Vital Signs Vitals Vital Signs Date Time Temp Pulse Resp B/P Pulse Ox O2 Delivery O2 Flow Rate FiO2 02/16/17 14:29 70 20 97 21 02/16/17 11:18 98.6 94/63 02/15/17 13:05 Room Air Intake and Output 02/15/17 02/15/17 02/16/17 15:00 23:00 07:00 Intake Total 800 ml 1000 ml Output Total 450 ml 1500 ml Balance 350 ml -500 ml Exam Psych: confusion Neck: supple Respiratory: normal air movement Cardiovascular: irregular rhythm Gastrointestinal: other (G-tube), soft Extremities: normal pulses Neurological: focal weakness Results Result Diagram: 02/16/17 0657 02/16/17 0657 Results 24 hrs Laboratory Tests Test 02/15/17 18:36 02/16/17 00:24 02/16/17 05:31 02/16/17 06:57 Bedside Glucose 138 116 128 White Blood Count 7.3 Red Blood Count 3.85 L Hemoglobin 10.3 L Hematocrit 32.1 L Mean Corpuscular Volume 83.4 Mean Corpuscular Hemoglobin 26.8 L Mean Corpuscular Hemoglobin Concent 32.1 Red Cell Distribution Width 17.5 H Platelet Count 357 Mean Platelet Volume 12.9 H Neutrophils % 77.6 H Lymphocytes % 13.0 L Monocytes % 5.6 Eosinophils % 2.1 Basophils % 1.0 Nucleated Red Blood Cells % 0.0 Neutrophils # (Manual) 5.7 Lymphocytes # 1.0 Monocytes # 0.4 Eosinophils # 0.2 Basophils # 0.1 Nucleated Red Blood Cells # 0.0 Prothrombin Time 12.8 Prothrombin Time Ratio 1.0 INR International Normalized Ratio 0.96 Activated Partial Thromboplast Time 28.1 Thrombin Time 16.4 Sodium Level 143 Potassium Level 3.8 Chloride Level 101 Carbon Dioxide Level 26 Anion Gap 20 H Blood Urea Nitrogen 24 H Creatinine 0.96 Glucose Level 102 Calcium Level 9.6 Test 02/16/17 12:03 Bedside Glucose 134 Medications Medications Current Medications Miscellaneous Information 1 ea NOTE XX ; Start 01/17/17 at 10:00 Glucose (Glutose) 15 gm Q15M PRN PO DECREASED GLUCOSE; Start 01/17/17 at 10:00 Glucose (Glutose) 22.5 gm Q15M PRN PO DECREASED GLUCOSE; Start 01/17/17 at 10: 00 Dextrose (D50w Syringe) 25 ml Q15M PRN IV DECREASED GLUCOSE; Start 01/17/17 at 10:00 Dextrose (D50w Syringe) 50 ml Q15M PRN IV DECREASED GLUCOSE; Start 01/17/17 at 10:00 Glucagon (Glucagen) 1 mg Q15M PRN IM DECREASED GLUCOSE; Start 01/17/17 at 10:00 Glucose (Glutose) 15 gm Q15M PRN BUCCAL DECREASED GLUCOSE; Start 01/17/17 at 10 :00 Collagenase (Santyl) 1 applic DAILY TOP Last administered on 02/16/17 09:06; Admin Dose 1 APPLIC; Start 01/17/17 at 21:00 IV Flush (NS 10 ml) 10 ml PRN PRN IV IV PROTOCOL; Start 01/22/17 at 12:00 Insulin Aspart (Novolog Insulin Pen) NOVOLOG *MILD* ALGORI... Q6 SC Last administered on 01/26/17 18:02; Admin Dose 1 UNIT; Start 01/23/17 at 18:00 Miscellaneous Information (Pending Santyl Order For Wound Care) This patient dunaway... PRN PRN XX WOUND CARE; Start 01/24/17 at 07:30 Bisacodyl (Dulcolax Supp) 10 mg DAILY PRN [place] CONSTIPATION Last administered on 02/10/17 03:49; Admin Dose 10 MG; Start 01/25/17 at 16:30 Acetaminophen (Tylenol Liquid) 650 mg Q4H PRN NGT PAIN AND OR ELEVATED TEMP Last administered on 02/15/17 21:01; Admin Dose 650 MG; Start 01/26/17 at 09:00 Metoprolol Tartrate (Lopressor) 2.5 mg Q4H PRN IV HR > 110 Last administered on 02/10/17 07:01; Admin Dose 2.5 MG; Start 01/26/17 at 15:00 Midodrine (Proamatine) 5 mg Q8 PRN GTB BLOOD PRESSURE SUPPORT Last administered on 01/31/17 15:36; Admin Dose 5 MG; Start 01/28/17 at 16:30 Enoxaparin Sodium (Lovenox) 60 mg Q24H SC Last administered on 02/14/17 23:30 ; Admin Dose 60 MG; Start 02/03/17 at 00:00; Status Future Hold Nystatin (Nystatin Powder) 1 applic BID TOP Last administered on 02/16/17 09: 04; Admin Dose 1 APPLIC; Start 02/04/17 at 12:00 Metoprolol Tartrate (Lopressor) 25 mg BID PO Last administered on 02/16/17 09: 04; Admin Dose 25 MG; Start 02/10/17 at 21:00 Nystatin 5 ml 5 ml QID PO Last administered on 02/16/17 13:30; Admin Dose 5 ML ; Start 02/11/17 at 21:00 Dextrose/Sodium Chloride (D5-1/4ns) 1,000 ml @ 50 mls/hr Q20H IV Last administered on 02/16/17 03:30; Admin Dose 50 MLS/HR; Start 02/13/17 at 15:30 Eye Lubricant (Artificial Tears Oph) 2 drop Q6H PRN BOTH EYES DRY EYES Last administered on 02/16/17 13:30; Admin Dose 2 DROP; Start 02/13/17 at 15:30 Pantoprazole (Protonix Iv) 40 mg BID@06,18 IV Last administered on 02/16/17t 05 :32; Admin Dose 40 MG; Start 02/14/17 at 16:45 LAWRENCE PICKERING Feb 16, 2017 15:09
--- NOTE | 2017-02-16 15:45 | CONS ---
GIRISH SCHMITZ ASSISTANT ART DIRECTOR 02/16/17 1545: Date/Time of Note Date/Time of Note DATE: 02/16/17 TIME: 15:43 Assessment/Plan Assessment/Plan Chief Complaint/Hosp Course assessment/impression: - intermittent leukocytosis - resolved - recurrent CVA - possible aspiration, improved - encephalopathy due to CVA. CSF from 01/19/2017: WBC=3, RBC=0, glu 53, pro=61, CSF ([place] serology negative, HSV negative, cocci CF negative, encephalitis meningitis panel could not be done due to a lack of sample), serum ([place] PCR negative, crypto antigen negative, cocci CF negative, histo CF negative). my order of crypto in CSF was cancelled and no reason given - bacteremia due to CoNS, probable contaminant. 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 Carbajal Problems: Consultation Date/Type/Reason Admit Date/Time Jan 16, 2017 at 15:19 Initial Consult Date 01/17/17 Type of Consultation: Infectious Disease Referring Provider: LAWRENCE PICKERING 24 HR Interval Summary Free Text/Dictation - Diffuse moderate degree of gastritis, G-tube in the place, and No gastrostomy site ulcer noted on EGD yesterday. - No bleeding noted. - BP on low side per d/w nursing staff. - Family with multiple questions mostly about anticoagulation and possibly keeping PICC in place - Family reports DC plan is to SNF - Pt nods no to pain. Subjective hx not possible: pt non-verbal Exam/Review of Systems Vital Signs Vitals Vital Signs Date Time Temp Pulse Resp B/P Pulse Ox O2 Delivery O2 Flow Rate FiO2 02/16/17 15:32 90/59 02/16/17 15:18 98.4 102 19 97 02/16/17 14:29 21 02/15/17 13:05 Room Air Intake and Output 02/15/17 02/15/17 02/16/17 15:00 23:00 07:00 Intake Total 800 ml 1000 ml Output Total 450 ml 1500 ml Balance 350 ml -500 ml Exam Constitutional: frail, non-verbal, other (easily arousable) Head: atraumatic, normocephalic Respiratory: diminished breath sounds, No wheezing Cardiovascular: irregular rhythm Gastrointestinal: other (G-tube intact), soft, No tender Genitourinary - Female: other (Lees catheter present) Musculoskeletal: nl extremities to inspection, normal pulses Extremities: No edema, other (LUE PICC and R hand HL with no e/o infection) Neurological: lethargic Skin: nl turgor Results Result Diagram: 02/16/17 0657 02/16/17 0657 Results 24 hrs Laboratory Tests Test 02/15/17 18:36 02/16/17 00:24 02/16/17 05:31 02/16/17 06:57 Bedside Glucose 138 116 128 White Blood Count 7.3 Red Blood Count 3.85 L Hemoglobin 10.3 L Hematocrit 32.1 L Mean Corpuscular Volume 83.4 Mean Corpuscular Hemoglobin 26.8 L Mean Corpuscular Hemoglobin Concent 32.1 Red Cell Distribution Width 17.5 H Platelet Count 357 Mean Platelet Volume 12.9 H Neutrophils % 77.6 H Lymphocytes % 13.0 L Monocytes % 5.6 Eosinophils % 2.1 Basophils % 1.0 Nucleated Red Blood Cells % 0.0 Neutrophils # (Manual) 5.7 Lymphocytes # 1.0 Monocytes # 0.4 Eosinophils # 0.2 Basophils # 0.1 Nucleated Red Blood Cells # 0.0 Prothrombin Time 12.8 Prothrombin Time Ratio 1.0 INR International Normalized Ratio 0.96 Activated Partial Thromboplast Time 28.1 Thrombin Time 16.4 Sodium Level 143 Potassium Level 3.8 Chloride Level 101 Carbon Dioxide Level 26 Anion Gap 20 H Blood Urea Nitrogen 24 H Creatinine 0.96 Glucose Level 102 Calcium Level 9.6 Test 02/16/17 12:03 Bedside Glucose 134 Medications Medications Current Medications Miscellaneous Information 1 ea NOTE XX ; Start 01/17/17 at 10:00 Glucose (Glutose) 15 gm Q15M PRN PO DECREASED GLUCOSE; Start 01/17/17 at 10:00 Glucose (Glutose) 22.5 gm Q15M PRN PO DECREASED GLUCOSE; Start 01/17/17 at 10: 00 Dextrose (D50w Syringe) 25 ml Q15M PRN IV DECREASED GLUCOSE; Start 01/17/17 at 10:00 Dextrose (D50w Syringe) 50 ml Q15M PRN IV DECREASED GLUCOSE; Start 01/17/17 at 10:00 Glucagon (Glucagen) 1 mg Q15M PRN IM DECREASED GLUCOSE; Start 01/17/17 at 10:00 Glucose (Glutose) 15 gm Q15M PRN BUCCAL DECREASED GLUCOSE; Start 01/17/17 at 10 :00 Collagenase (Santyl) 1 applic DAILY TOP Last administered on 02/16/17 09:06; Admin Dose 1 APPLIC; Start 01/17/17 at 21:00 IV Flush (NS 10 ml) 10 ml PRN PRN IV IV PROTOCOL; Start 01/22/17 at 12:00 Insulin Aspart (Novolog Insulin Pen) NOVOLOG *MILD* ALGORI... Q6 SC Last administered on 01/26/17 18:02; Admin Dose 1 UNIT; Start 01/23/17 at 18:00 Miscellaneous Information (Pending Santyl Order For Wound Care) This patient dunaway... PRN PRN XX WOUND CARE; Start 01/24/17 at 07:30 Bisacodyl (Dulcolax Supp) 10 mg DAILY PRN [place] CONSTIPATION Last administered on 02/10/17 03:49; Admin Dose 10 MG; Start 01/25/17 at 16:30 Acetaminophen (Tylenol Liquid) 650 mg Q4H PRN NGT PAIN AND OR ELEVATED TEMP Last administered on 02/15/17 21:01; Admin Dose 650 MG; Start 01/26/17 at 09:00 Metoprolol Tartrate (Lopressor) 2.5 mg Q4H PRN IV HR > 110 Last administered on 02/10/17 07:01; Admin Dose 2.5 MG; Start 01/26/17 at 15:00 Midodrine (Proamatine) 5 mg Q8 PRN GTB BLOOD PRESSURE SUPPORT Last administered on 01/31/17 15:36; Admin Dose 5 MG; Start 01/28/17 at 16:30 Enoxaparin Sodium (Lovenox) 60 mg Q24H SC Last administered on 02/14/17 23:30 ; Admin Dose 60 MG; Start 02/03/17 at 00:00; Status Future Hold Nystatin (Nystatin Powder) 1 applic BID TOP Last administered on 02/16/17 09: 04; Admin Dose 1 APPLIC; Start 02/04/17 at 12:00 Metoprolol Tartrate (Lopressor) 25 mg BID PO Last administered on 02/16/17 09: 04; Admin Dose 25 MG; Start 02/10/17 at 21:00 Nystatin 5 ml 5 ml QID PO Last administered on 02/16/17 13:30; Admin Dose 5 ML ; Start 02/11/17 at 21:00 Dextrose/Sodium Chloride (D5-1/4ns) 1,000 ml @ 50 mls/hr Q20H IV Last administered on 02/16/17 03:30; Admin Dose 50 MLS/HR; Start 02/13/17 at 15:30 Eye Lubricant (Artificial Tears Oph) 2 drop Q6H PRN BOTH EYES DRY EYES Last administered on 02/16/17 13:30; Admin Dose 2 DROP; Start 02/13/17 at 15:30 Pantoprazole (Protonix Iv) 40 mg BID@06,18 IV Last administered on 02/16/17 05 :32; Admin Dose 40 MG; Start 02/14/17 at 16:45 TYE CARBAJAL M.D. 02/18/17 1742: Assessment/Plan Assessment/Plan Additional Assessment/Plan Raven attestation: I discussed the management with LUNA Schmitz and agree with above. Exam/Review of Systems Results Result Diagram: 02/16/17 0657 02/16/17 0657 GIRISH SCHMITZ NP Feb 16, 2017 15:45 TYE CARBAJAL M.D. Feb 18, 2017 17:42
[2017-02-16] MEDS: ASPIRIN 81 MG TAB GTB SCH (17:25)
[2017-02-17] VITALS (11 sets, daily range): BP systolic 97–119; BP diastolic 44–56; PULSE 83–103; RESP 18–20
[2017-02-17] MEDS: LEVALBUTEROL (NEB) 0.63 MG/3 ML AMP HHN SCH ×4 (02:07→19:13)
[2017-02-17] MEDS: PANTOPRAZOLE 40 MG INJ IV SCH ×2 (05:36→17:37)
[2017-02-17] MEDS: INSULIN ASPART [NOVOLOG] 3 ML PEN SC SCH ×3 (05:37→18:00)
[2017-02-17] MEDS: METOPROLOL 25 MG TAB PO SCH ×2 (08:30→20:43)
[2017-02-17 08:37] LABS: WHITE BLOOD COUNT 6.8 10^3/ul (4.8-10.8)
[2017-02-17 08:38] LABS: ABNORMAL IP MESSAGE 1; BASOPHIL # 0.1 10^3/ul (0.0-0.1); BASOPHILS % 0.7 % (0.0-2.0); EOSINOPHILS # 0.2 10^3/ul (0.0-0.5); EOSINOPHILS % 2.2 % (0.0-7.0); HEMATOCRIT 31.1 % (37.0-47.0); HEMOGLOBIN 9.8 g/dl (12.0-16.0); LYMPHOCYTES # 1.1 10^3/ul (0.8-2.9); LYMPHOCYTES % 16.7 % (15.0-51.0); MEAN CORPUSCULAR HEMOGLOBIN 26.3 pg (29.0-33.0); MEAN CORPUSCULAR HGB CONC 31.5 g/dl (32.0-37.0); MEAN CORPUSCULAR VOLUME 83.6 fl (82.0-101.0); MEAN PLATELET VOLUME 13.4 fl (7.4-10.4); MONOCYTE # 0.6 10^3/ul (0.3-0.9); MONOCYTES % 8.3 % (0.0-11.0); NEUTROPHILS % 71.5 % (39.0-77.0); PLATELET COUNT 326 10^3/UL (140-415); RED BLOOD COUNT 3.72 10^6/ul (4.20-5.40); RED CELL DISTRIBUTION WIDTH 18.1 % (11.5-14.5)
[2017-02-17 08:49] LABS: POSITIVE DIFF @See below
[2017-02-17] MEDS: NYSTATIN SUSP 5 ML CUP PO SCH ×4 (09:06→20:43)
[2017-02-17] MEDS: NYSTATIN 30 GM POWDER BTL TOP SCH ×2 (09:06→20:18)
[2017-02-17] MEDS: ASPIRIN 81 MG TAB GTB SCH (09:06)
[2017-02-17] MEDS: COLLAGENASE 30 GM TUBE TOP SCH (09:07)
[2017-02-17 09:11] LABS: CALCIUM 9.6 mg/dl (8.4-10.2); CREATININE 0.94 mg/dl (0.44-1.00); POTASSIUM 3.6 mmol/L (3.5-5.1)
--- NOTE | 2017-02-17 10:20 | CONS ---
[facility] HCIS Consult Follow up SOAP Patient Name: Nilda Mcmullen Unit Number: [id number] Date of : 1955 Patient Status: Admitted Inpatient Attending Doctor: Kana Valdovinos MD Edit: TYE CARBAJAL M.D. on 02/18/17 @ 17:43 Raven attestation: I discussed the management with LUNA De Jesus and agree with her note Date/Time of Note Date/Time of Note DATE: 02/17/17 TIME: 10:09 Consult Date/Type/Reason Admit Date/Time Jan 16, 2017 at 15:19 Initial Consult Date 01/26/17 Type of Consultation: INFECTIOUS DISEASE Ordering Provider: LAWRENCE PICKERING Subjective mumbles incoherently Objective Vital Signs Date Time Temp Pulse Resp B/P Pulse Ox O2 Delivery O2 Flow Rate FiO2 02/17/17 08:25 83 02/17/17 08:22 18 97 21 02/17/17 07:34 98.6 97/55 02/15/17 13:05 Room Air Intake and Output 02/16/17 02/16/17 02/17/17 15:00 23:00 07:00 Intake Total 1000 ml 2100 ml Output Total 900 ml 1400 ml Balance 100 ml 700 ml Exam Constitutional: frail, asleep, opens right eye and keeps left eye closed with deep noxious stimulus, tried to mumble upon calling her name Head: atraumatic, normocephalic Respiratory: diminished breath sounds, no wheezing Cardiovascular: irregular rhythm Gastrointestinal: soft, non-distended, G-tube intact with TF infusing Genitourinary - Lees catheter present, cloudy urine (recent hx of funguria) Musculoskeletal: normal appearing extremities to inspection, normal pulses Extremities: warm, dry, palpable pulses, no edema, Piccline LUE and saline lock hand, both with no e/o infection Neurological: lethargic Skin: warm dry, normal turgor Results/Medications Result Diagram: 02/17/17 0702 02/17/17 0702 Results 24 hrs Laboratory Tests Test 02/16/17 12:03 02/16/17 17:38 02/16/17 23:17 02/17/17 05:35 Bedside Glucose 134 121 100 114 Test 02/17/17 07:02 White Blood Count 6.8 Red Blood Count 3.72 L Hemoglobin 9.8 L Hematocrit 31.1 L Mean Corpuscular Volume 83.6 Mean Corpuscular Hemoglobin 26.3 L Mean Corpuscular Hemoglobin Concent 31.5 L Red Cell Distribution Width 18.1 H Platelet Count 326 Mean Platelet Volume 13.4 H Neutrophils % 71.5 Lymphocytes % 16.7 Monocytes % 8.3 Eosinophils % 2.2 Basophils % 0.7 Nucleated Red Blood Cells % 0.0 Neutrophils # (Manual) 4.8 Lymphocytes # 1.1 Monocytes # 0.6 Eosinophils # 0.2 Basophils # 0.1 Nucleated Red Blood Cells # 0.0 Sodium Level 140 Potassium Level 3.6 Chloride Level 102 Carbon Dioxide Level 26 Anion Gap 16 Blood Urea Nitrogen 20 Creatinine 0.94 Glucose Level 107 Calcium Level 9.6 Medications Current Medications Miscellaneous Information 1 ea NOTE XX ; Start 01/17/17 at 10:00 Glucose (Glutose) 15 gm Q15M PRN PO DECREASED GLUCOSE; Start 01/17/17 at 10:00 Glucose (Glutose) 22.5 gm Q15M PRN PO DECREASED GLUCOSE; Start 01/17/17 at 10: 00 Dextrose (D50w Syringe) 25 ml Q15M PRN IV DECREASED GLUCOSE; Start 01/17/17 at 10:00 Dextrose (D50w Syringe) 50 ml Q15M PRN IV DECREASED GLUCOSE; Start 01/17/17 at 10:00 Glucagon (Glucagen) 1 mg Q15M PRN IM DECREASED GLUCOSE; Start 01/17/17 at 10:00 Glucose (Glutose) 15 gm Q15M PRN BUCCAL DECREASED GLUCOSE; Start 01/17/17 at 10 :00 Collagenase (Santyl) 1 applic DAILY TOP Last administered on 02/17/17t 09:07; Admin Dose 1 APPLIC; Start 01/17/17 at 21:00 IV Flush (NS 10 ml) 10 ml PRN PRN IV IV PROTOCOL; Start 01/22/17 at 12:00 Insulin Aspart (Novolog Insulin Pen) NOVOLOG *MILD* ALGORI... Q6 SC Last administered on 01/26/17 18:02; Admin Dose 1 UNIT; Start 01/23/17 at 18:00 Miscellaneous Information (Pending Santyl Order For Wound Care) This patient dunaway... PRN PRN XX WOUND CARE; Start 01/24/17 at 07:30 Bisacodyl (Dulcolax Supp) 10 mg DAILY PRN [place] CONSTIPATION Last administered on 02/10/17 03:49; Admin Dose 10 MG; Start 01/25/17 at 16:30 Acetaminophen (Tylenol Liquid) 650 mg Q4H PRN NGT PAIN AND OR ELEVATED TEMP Last administered on 02/15/17 21:01; Admin Dose 650 MG; Start 01/26/17 at 09:00 Metoprolol Tartrate (Lopressor) 2.5 mg Q4H PRN IV HR > 110 Last administered on 02/10/17 07:01; Admin Dose 2.5 MG; Start 01/26/17 at 15:00 Midodrine (Proamatine) 5 mg Q8 PRN GTB BLOOD PRESSURE SUPPORT Last administered on 01/31/17 15:36; Admin Dose 5 MG; Start 01/28/17 at 16:30 Enoxaparin Sodium (Lovenox) 60 mg Q24H SC Last administered on 02/14/17 23:30 ; Admin Dose 60 MG; Start 02/03/17 at 00:00; Status Future Hold Nystatin (Nystatin Powder) 1 applic BID TOP Last administered on 02/17/17 09: 06; Admin Dose 1 APPLIC; Start 02/04/17 at 12:00 Metoprolol Tartrate (Lopressor) 25 mg BID PO Last administered on 02/16/17 09: 04; Admin Dose 25 MG; Start 02/10/17 at 21:00 Nystatin 5 ml 5 ml QID PO Last administered on 02/17/17 09:06; Admin Dose 5 ML ; Start 02/11/17 at 21:00 Dextrose/Sodium Chloride (D5-1/4ns) 1,000 ml @ 50 mls/hr Q20H IV Last administered on 02/16/17 23:13; Admin Dose 50 MLS/HR; Start 02/13/17 at 15:30 Eye Lubricant (Artificial Tears Oph) 2 drop Q6H PRN BOTH EYES DRY EYES Last administered on 02/16/17 21:02; Admin Dose 2 DROP; Start 02/13/17 at 15:30 Pantoprazole (Protonix Iv) 40 mg BID@06,18 IV Last administered on 02/17/17 05 :36; Admin Dose 40 MG; Start 02/14/17 at 16:45 Aspirin (Aspirin) 81 mg DAILY GTB Last administered on 02/17/17 09:06; Admin Dose 81 MG; Start 02/16/17 at 16:30 Assessment/Plan Chief Complaint/Hosp Course Assessment/impression: - intermittent leukocytosis - resolved - recurrent CVA - possible aspiration, improved - encephalopathy due to CVA. CSF from 01/19/2017: WBC=3, RBC=0, glu 53, pro=61, CSF ([place] serology negative, HSV negative, cocci CF negative, encephalitis meningitis panel could not be done due to a lack of sample), serum ([place] PCR negative, crypto antigen negative, cocci CF negative, histo CF negative). my order of crypto in CSF was cancelled and no reason given - bacteremia due to CoNS, probable contaminant. 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 Carbajal Problems: Additional Assessment/Plan Nurse Jaclyn reports foul smelly urine (recent ho funguria, s/p f/c change) CLAUDY DE JESUS Feb 17, 2017 10:19
[2017-02-17] MEDS ORDERED: FLUCONAZOLE 100 MG TAB GTB SCH (11:30)
[2017-02-17] MEDS: ACETAMINOPHEN 650MG/20.3ML CUP NGT PRN ×2 (13:00→20:43)
[2017-02-17 13:57] LABS: ADD UMIC YES; UR AMORPHOUS CRYSTAL FEW /HPF (NONE SEEN); UR ASCORBIC ACID NEGATIVE (NEGATIVE); UR BILIRUBIN (Dip) NEGATIVE (NEGATIVE); UR BLOOD (Dip) NEGATIVE (NEGATIVE); UR CLARITY CLOUDY (CLEAR); UR COLOR YELLOW (YELLOW); UR GLUCOSE (Dip) NEGATIVE (NEGATIVE); UR KETONES (Dip) NEGATIVE (NEGATIVE); UR LEUKOCYTE ESTERASE (Dip) 3+ Leu/ul (NEGATIVE); UR NITRITE (Dip) POSITIVE (NEGATIVE); UR RBC 4 /HPF (0-5); UR SPECIFIC GRAVITY (Dip) 1.006 (1.003-1.030); UR TOTAL PROTEIN (Dip) NEGATIVE (NEGATIVE); UR UROBILINOGEN (Dip) NEGATIVE (NEGATIVE)
--- NOTE | 2017-02-17 14:35 | CONS ---
Date/Time of Note Date/Time of Note DATE: 02/17/17 TIME: 14:30 Assessment/Plan Assessment/Plan Additional Assessment/Plan 1. AF-mainly rate controlled better now - will hold off on pacer given overall state. STABLE on tele - no intervention planned - RATE CONTROLLED. 2.Hypotension-now improved on midodrine - stable - Rx as needed, Borderline - tolerating feeds now. 3.Encephalopathy/ams - multifactorial, no change noted. 4.coagulopathy-now decreased with coumadin held - on lovenox - no signs of bleeding now. 5. Acute Renal failure-? secondary to vanc - will monitor now 6.Leukocytosis 7. Cardiomyopathy-EF 45% - euvolemic by exam. 8. Cephalic vein thrombosis 9. Dysphagia s/p PEG - Rx with meds now Consultation Date/Type/Reason Admit Date/Time Jan 16, 2017 at 15:19 Initial Consult Date 01/26/17 Type of Consultation: INFECTIOUS DISEASE Referring Provider: LAWRENCE PICKERING 24 HR Interval Summary Free Text/Dictation No acute events - rate controlled - con't to follow. ROS: No fever, no chills, no nausea, no vomiting, no diarrhea/constipation No recent weight changes No chest pain, no PND, no orthopnea No dizziness, blurred vision No thirst, no heat or cold intolerance Exam/Review of Systems Vital Signs Vitals Vital Signs Date Time Temp Pulse Resp B/P Pulse Ox O2 Delivery O2 Flow Rate FiO2 02/17/17 13:31 80 22 96 21 02/17/17 11:09 97.5 98/56 02/15/17 13:05 Room Air Intake and Output 02/16/17 02/16/17 02/17/17 15:00 23:00 07:00 Intake Total 1000 ml 2100 ml Output Total 900 ml 1400 ml Balance 100 ml 700 ml Exam General: WN/WD/NAD, AOx 0 HEENT: Unicetric/atraumatic/EOMI (follow commands) NECK: JVD elevated, no thyromegaly Lymph: no lymphadenopathy HEART: Ir Irregular with no S3, II/ systolic murmur at apex LUNGS: Coarse sounds ABD: soft, NT, ND, +BS : Intact Neuro: non focal SKIN: chronic changes EXT: trace edema Results Result Diagram: 02/17/1770102/17/17 07 Results 24 hrs Laboratory Tests Test 8/15/17 17:38 02/16/17 23:17 02/17/17 05:35 02/17/17 07:02 Bedside Glucose 121 100 114 White Blood Count 6.8 Red Blood Count 3.72 L Hemoglobin 9.8 L Hematocrit 31.1 L Mean Corpuscular Volume 83.6 Mean Corpuscular Hemoglobin 26.3 L Mean Corpuscular Hemoglobin Concent 31.5 L Red Cell Distribution Width 18.1 H Platelet Count 326 Mean Platelet Volume 13.4 H Neutrophils % 71.5 Lymphocytes % 16.7 Monocytes % 8.3 Eosinophils % 2.2 Basophils % 0.7 Nucleated Red Blood Cells % 0.0 Neutrophils # (Manual) 4.8 Lymphocytes # 1.1 Monocytes # 0.6 Eosinophils # 0.2 Basophils # 0.1 Nucleated Red Blood Cells # 0.0 Sodium Level 140 Potassium Level 3.6 Chloride Level 102 Carbon Dioxide Level 26 Anion Gap 16 Blood Urea Nitrogen 20 Creatinine 0.94 Glucose Level 107 Calcium Level 9.6 Test 02/17/17 12:24 02/17/17 13:40 Bedside Glucose 112 Urine Color YELLOW Urine Clarity CLOUDY A Urine pH 9.0 Urine Specific [place] 1.006 Urine Ketones NEGATIVE Urine Nitrite POSITIVE A Urine Bilirubin NEGATIVE Urine Urobilinogen NEGATIVE Urine Leukocyte Esterase 3+ H Urine Microscopic RBC 4 Urine Microscopic WBC 49 H Urine Amorphous Crystals FEW A Urine Hemoglobin NEGATIVE Urine Glucose NEGATIVE Urine Total Protein NEGATIVE Medications Medications Current Medications Miscellaneous Information 1 ea NOTE XX ; Start 01/17/17 at 10:00 Glucose (Glutose) 15 gm Q15M PRN PO DECREASED GLUCOSE; Start 01/17/17 at 10:00 Glucose (Glutose) 22.5 gm Q15M PRN PO DECREASED GLUCOSE; Start 01/17/17 at 10: 00 Dextrose (D50w Syringe) 25 ml Q15M PRN IV DECREASED GLUCOSE; Start 01/17/17 at 10:00 Dextrose (D50w Syringe) 50 ml Q15M PRN IV DECREASED GLUCOSE; Start 01/17/17 at 10:00 Glucagon (Glucagen) 1 mg Q15M PRN IM DECREASED GLUCOSE; Start 01/17/17 at 10:00 Glucose (Glutose) 15 gm Q15M PRN BUCCAL DECREASED GLUCOSE; Start 01/17/17 at 10 :00 Collagenase (Santyl) 1 applic DAILY TOP Last administered on 02/17/17 09:07; Admin Dose 1 APPLIC; Start 01/17/17 at 21:00 IV Flush (NS 10 ml) 10 ml PRN PRN IV IV PROTOCOL; Start 01/22/17 at 12:00 Insulin Aspart (Novolog Insulin Pen) NOVOLOG *MILD* ALGORI... Q6 SC Last administered on 01/26/17 18:02; Admin Dose 1 UNIT; Start 01/23/17 at 18:00 [facility] This patient dunaway... PRN PRN XX WOUND CARE; Start 01/24/17 at 07:30 Bisacodyl (Dulcolax Supp) 10 mg DAILY PRN [place] CONSTIPATION Last administered on 02/10/17 03:49; Admin Dose 10 MG; Start 01/25/17 at 16:30 Acetaminophen (Tylenol Liquid) 650 mg Q4H PRN NGT PAIN AND OR ELEVATED TEMP Last administered on 02/17/17 13:00; Admin Dose 650 MG; Start 01/26/17 at 09:00 Metoprolol Tartrate (Lopressor) 2.5 mg Q4H PRN IV HR > 110 Last administered on 02/10/17 07:01; Admin Dose 2.5 MG; Start 01/26/17 at 15:00 Midodrine (Proamatine) 5 mg Q8 PRN GTB BLOOD PRESSURE SUPPORT Last administered on 01/31/17 15:36; Admin Dose 5 MG; Start 01/28/17 at 16:30 Enoxaparin Sodium (Lovenox) 60 mg Q24H SC Last administered on 02/14/17 23:30 ; Admin Dose 60 MG; Start 02/03/17 at 00:00; Status Future Hold Nystatin (Nystatin Powder) 1 applic BID TOP Last administered on 02/17/17 09: 06; Admin Dose 1 APPLIC; Start 02/04/17 at 12:00 Metoprolol Tartrate (Lopressor) 25 mg BID PO Last administered on 02/16/17 09: 04; Admin Dose 25 MG; Start 02/10/17 at 21:00 Nystatin 5 ml 5 ml QID PO Last administered on 02/17/17 12:27; Admin Dose 5 ML ; Start 02/11/17 at 21:00 Dextrose/Sodium Chloride (D5-1/4ns) 1,000 ml @ 50 mls/hr Q20H IV Last administered on 02/16/17 23:13; Admin Dose 50 MLS/HR; Start 02/13/17 at 15:30 Eye Lubricant (Artificial Tears Oph) 2 drop Q6H PRN BOTH EYES DRY EYES Last administered on 02/16/17 21:02; Admin Dose 2 DROP; Start 02/13/17 at 15:30 Pantoprazole (Protonix Iv) 40 mg BID@06,18 IV Last administered on 02/17/17 05 :36; Admin Dose 40 MG; Start 02/14/17 at 16:45 Aspirin (Aspirin) 81 mg DAILY GTB Last administered on 02/17/17 09:06; Admin Dose 81 MG; Start 02/16/17 at 16:30 YAJAIRA ALVAREZ MD Feb 17, 2017 14:34
[2017-02-17] MEDS: DEXTROSE 5%-0.225% NACL 1,000 ML IV SCH ×2 (18:08→19:30)
[2017-02-17] MEDS: ARTIFICIAL TEARS 15 ML OPH BOTH EYES PRN (20:18)
--- NOTE | 2017-02-17 22:02 | PN ---
Date/Time of Note Date/Time of Note DATE: 02/17/17 TIME: 21:59 Assessment/Plan VTE Prophylaxis VTE Prophylaxis Intervention: SCD's Lines/Catheters IV C[facility] Type ([facility] PICC Line Central line still needed: Yes Urinary Cath still in place: Yes Reason Cath still needed: urinary retention Assessment/Plan Chief Complaint/Hosp Course No hematuria, tolerates GT feeding well. Assessment/Plan - Possible bleeding from G-tube and hematuria. Status post EGD was notion of gastritis, continue Protonix. Monitor for signs of bleeding bleeding, monitor H &H. - Bilateral thalamic infarctions. - Dysphagia, status post G-tube placement by Dr. Garcia. - Atrial fibrillation with rapid ventricular response. Dr. Armenta is following and cardiology consultation. - Thrombosis of the bilateral cephalic veins. - Acute kidney injury, resolved. - History of CVA - History of hyperlipidemia - Left lower extremity, status post vascular surgery. D/C planning Further recommendations based on clinical course. Plan of care discussed with Dr. Valdovinos. Problems: Exam/Review of Systems Vital Signs Vitals Vital Signs Date Time Temp Pulse Resp B/P Pulse Ox O2 Delivery O2 Flow Rate FiO2 02/17/17 20:00 99 02/17/17 19:47 97.8 19 98/44 97 02/17/17 19:14 21 02/15/17 13:05 Room Air Intake and Output 02/16/17 02/16/17 02/17/17 15:00 23:00 07:00 Intake Total 1000 ml 2100 ml Output Total 900 ml 1400 ml Balance 100 ml 700 ml Exam Psych: confusion Neck: supple Respiratory: normal air movement Cardiovascular: irregular rhythm Gastrointestinal: other (G-tube), soft Extremities: normal pulses Neurological: focal weakness Results Result Diagram: 02/17/17 0702 02/17/17 0702 Results 24 hrs Laboratory Tests Test 02/16/17 23:17 02/17/17 05:35 02/17/17 07:02 02/17/17 12:24 Bedside Glucose 100 114 112 White Blood Count 6.8 Red Blood Count 3.72 L Hemoglobin 9.8 L Hematocrit 31.1 L Mean Corpuscular Volume 83.6 Mean Corpuscular Hemoglobin 26.3 L Mean Corpuscular Hemoglobin Concent 31.5 L Red Cell Distribution Width 18.1 H Platelet Count 326 Mean Platelet Volume 13.4 H Neutrophils % 71.5 Lymphocytes % 16.7 Monocytes % 8.3 Eosinophils % 2.2 Basophils % 0.7 Nucleated Red Blood Cells % 0.0 Neutrophils # (Manual) 4.8 Lymphocytes # 1.1 Monocytes # 0.6 Eosinophils # 0.2 Basophils # 0.1 Nucleated Red Blood Cells # 0.0 Sodium Level 140 Potassium Level 3.6 Chloride Level 102 Carbon Dioxide Level 26 Anion Gap 16 Blood Urea Nitrogen 20 Creatinine 0.94 Glucose Level 107 Calcium Level 9.6 Test 02/17/17 13:40 02/17/17 18:05 Urine Color YELLOW Urine Clarity CLOUDY A Urine pH 9.0 Urine Specific [place] 1.006 Urine Ketones NEGATIVE Urine Nitrite POSITIVE A Urine Bilirubin NEGATIVE Urine Urobilinogen NEGATIVE Urine Leukocyte Esterase 3+ H Urine Microscopic RBC 4 Urine Microscopic WBC 49 H Urine Amorphous Crystals FEW A Urine Hemoglobin NEGATIVE Urine Glucose NEGATIVE Urine Total Protein NEGATIVE Bedside Glucose 117 Medications Medications Current Medications Miscellaneous Information 1 ea NOTE XX ; Start 01/17/17 at 10:00 Glucose (Glutose) 15 gm Q15M PRN PO DECREASED GLUCOSE; Start 01/17/17 at 10:00 Glucose (Glutose) 22.5 gm Q15M PRN PO DECREASED GLUCOSE; Start 01/17/17 at 10: 00 Dextrose (D50w Syringe) 25 ml Q15M PRN IV DECREASED GLUCOSE; Start 01/17/17 at 10:00 Dextrose (D50w Syringe) 50 ml Q15M PRN IV DECREASED GLUCOSE; Start 01/17/17 at 10:00 Glucagon (Glucagen) 1 mg Q15M PRN IM DECREASED GLUCOSE; Start 01/17/17 at 10:00 Glucose (Glutose) 15 gm Q15M PRN BUCCAL DECREASED GLUCOSE; Start 01/17/17 at 10 :00 Collagenase (Santyl) 1 applic DAILY TOP Last administered on 02/17/17 09:07; Admin Dose 1 APPLIC; Start 01/17/17 at 21:00 IV Flush (NS 10 ml) 10 ml PRN PRN IV IV PROTOCOL; Start 01/22/17 at 12:00 Insulin Aspart (Novolog Insulin Pen) NOVOLOG *MILD* ALGORI... Q6 SC Last administered on 01/26/17 18:02; Admin Dose 1 UNIT; Start 01/23/17 at 18:00 Miscellaneous Information (Pending Santyl Order For Wound Care) This patient dunaway... PRN PRN XX WOUND CARE; Start 01/24/17 at 07:30 Bisacodyl (Dulcolax Supp) 10 mg DAILY PRN [place] CONSTIPATION Last administered on 02/10/17 03:49; Admin Dose 10 MG; Start 01/25/17 at 16:30 Acetaminophen (Tylenol Liquid) 650 mg Q4H PRN NGT PAIN AND OR ELEVATED TEMP Last administered on 02/17/17 20:43; Admin Dose 650 MG; Start 01/26/17 at 09:00 Metoprolol Tartrate (Lopressor) 2.5 mg Q4H PRN IV HR > 110 Last administered on 02/10/17 07:01; Admin Dose 2.5 MG; Start 01/26/17 at 15:00 Midodrine (Proamatine) 5 mg Q8 PRN GTB BLOOD PRESSURE SUPPORT Last administered on 01/31/17 15:36; Admin Dose 5 MG; Start 01/28/17 at 16:30 Enoxaparin Sodium (Lovenox) 60 mg Q24H SC Last administered on 02/14/17 23:30 ; Admin Dose 60 MG; Start 02/03/17 at 00:00; Status Future Hold Nystatin (Nystatin Powder) 1 applic BID TOP Last administered on 02/17/17 20: 18; Admin Dose 1 APPLIC; Start 02/04/17 at 12:00 Metoprolol Tartrate (Lopressor) 25 mg BID PO Last administered on 02/16/17 09: 04; Admin Dose 25 MG; Start 02/10/17 at 21:00 Nystatin 5 ml 5 ml QID PO Last administered on 02/17/17 20:43; Admin Dose 5 ML ; Start 02/11/17 at 21:00 Dextrose/Sodium Chloride (D5-1/4ns) 1,000 ml @ 50 mls/hr Q20H IV Last administered on 02/17/17 18:08; Admin Dose 50 MLS/HR; Start 02/13/17 at 15:30 Eye Lubricant (Artificial Tears Oph) 2 drop Q6H PRN BOTH EYES DRY EYES Last administered on 02/17/17 20:18; Admin Dose 2 DROP; Start 02/13/17 at 15:30 Pantoprazole (Protonix Iv) 40 mg BID@06,18 IV Last administered on 02/17/17 17 :37; Admin Dose 40 MG; Start 02/14/17 at 16:45 Aspirin (Aspirin) 81 mg DAILY GTB Last administered on 02/17/17 09:06; Admin Dose 81 MG; Start 02/16/17 at 16:30 LAWRENCE PICKERING Feb 17, 2017 22:02
[2017-02-18] VITALS (12 sets, daily range): BP systolic 89–103; BP diastolic 50–58; PULSE 82–116; RESP 17–19
[2017-02-18] MEDS: LEVALBUTEROL (NEB) 0.63 MG/3 ML AMP HHN SCH ×4 (01:23→19:54)
[2017-02-18] MEDS: PANTOPRAZOLE 40 MG INJ IV SCH (05:41)
[2017-02-18] MEDS: INSULIN ASPART [NOVOLOG] 3 ML PEN SC SCH ×3 (05:44→11:43)
[2017-02-18] MEDS: METOPROLOL 25 MG TAB PO SCH ×2 (08:30→21:00)
[2017-02-18] MEDS: NYSTATIN 30 GM POWDER BTL TOP SCH ×2 (08:32→21:11)
[2017-02-18] MEDS: COLLAGENASE 30 GM TUBE TOP SCH (08:33)
[2017-02-18] MEDS: NYSTATIN SUSP 5 ML CUP GTB SCH ×4 (08:43→21:10)
[2017-02-18] MEDS: ASPIRIN 81 MG TAB GTB SCH (08:43)
--- NOTE | 2017-02-18 10:48 | CONS ---
Date/Time of Note Date/Time of Note DATE: 02/18/17 TIME: 10:47 Assessment/Plan Assessment/Plan Additional Assessment/Plan 1. AF-mainly rate controlled better now - will hold off on pacer given overall state. STABLE on tele - no intervention planned - RATE CONTROLLED. 2.Hypotension-now improved on midodrine - stable - Rx as needed, Borderline - tolerating feeds now. BETTER. 3.Encephalopathy/ams - multifactorial, no change noted. 4.coagulopathy-now decreased with coumadin held - on lovenox - no signs of bleeding now. STABLE. 5. Acute Renal failure-? secondary to vanc - will monitor now 6.Leukocytosis 7. Cardiomyopathy-EF 45% - euvolemic by exam. NO INDICATION FOR PACER/ICD now. 8. Cephalic vein thrombosis 9. Dysphagia s/p PEG - Rx with meds now Consultation Date/Type/Reason Admit Date/Time Jan 16, 2017 at 15:19 Initial Consult Date 01/26/17 Type of Consultation: INFECTIOUS DISEASE Referring Provider: LAWRENCE PICKERING 24 HR Interval Summary Free Text/Dictation NO acute events - BP in good range - no CP, doubt ischemia. ROS: No fever, no chills, no nausea, no vomiting, no diarrhea/constipation No recent weight changes No chest pain, no PND, no orthopnea No dizziness, blurred vision No thirst, no heat or cold intolerance (per nurse) Exam/Review of Systems Vital Signs Vitals Vital Signs Date Time Temp Pulse Resp B/P Pulse Ox O2 Delivery O2 Flow Rate FiO2 02/18/17 08:00 92 02/18/17 07:42 99 21 02/18/17 07:42 18 02/18/17 07:16 98.0 103/50 02/15/17 13:05 Room Air Intake and Output 02/17/17 02/17/17 02/18/17 15:00 23:00 07:00 Intake Total 2050 ml 1000 ml Output Total 1100 ml 1200 ml Balance 950 ml -200 ml Exam General: WN/WD/NAD, AOx 0 HEENT: Unicetric/atraumatic/EOMI (does not follow commands) NECK: JVD elevated, no thyromegaly Lymph: no lymphadenopathy HEART: Ir Irregular with no S3, II/ systolic murmur at apex LUNGS: Coarse sounds ABD: soft, NT, ND, +BS : Intact Neuro: non focal SKIN: chronic changes EXT: trace edema Results Result Diagram: 02/17/17 0702/17/17 0702 Results 24 hrs Laboratory Tests Test 02/17/17 12:24 02/17/17 13:40 02/17/17 18:05 02/18/17 00:35 Bedside Glucose 112 117 127 Urine Color YELLOW Urine Clarity CLOUDY A Urine pH 9.0 Urine Specific [place] 1.006 Urine Ketones NEGATIVE Urine Nitrite POSITIVE A Urine Bilirubin NEGATIVE Urine Urobilinogen NEGATIVE Urine Leukocyte Esterase 3+ H Urine Microscopic RBC 4 Urine Microscopic WBC 49 H Urine Amorphous Crystals FEW A Urine Hemoglobin NEGATIVE Urine Glucose NEGATIVE Urine Total Protein NEGATIVE Test 02/18/17 05:43 Bedside Glucose 117 Medications Medications Current Medications Miscellaneous Information 1 ea NOTE XX ; Start 01/17/17 at 10:00 Glucose (Glutose) 15 gm Q15M PRN PO DECREASED GLUCOSE; Start 01/17/17 at 10:00 Glucose (Glutose) 22.5 gm Q15M PRN PO DECREASED GLUCOSE; Start 01/17/17 at 10: 00 Dextrose (D50w Syringe) 25 ml Q15M PRN IV DECREASED GLUCOSE; Start 01/17/17 at 10:00 Dextrose (D50w Syringe) 50 ml Q15M PRN IV DECREASED GLUCOSE; Start 01/17/17 at 10:00 Glucagon (Glucagen) 1 mg Q15M PRN IM DECREASED GLUCOSE; Start 01/17/17 at 10:00 Glucose (Glutose) 15 gm Q15M PRN BUCCAL DECREASED GLUCOSE; Start 01/17/17 at 10 :00 Collagenase (Santyl) 1 applic DAILY TOP Last administered on 02/18/17 08:33; Admin Dose 1 APPLIC; Start 01/17/17 at 21:00 IV Flush (NS 10 ml) 10 ml PRN PRN IV IV PROTOCOL; Start 01/22/17 at 12:00 Insulin Aspart (Novolog Insulin Pen) NOVOLOG *MILD* ALGORI... Q6 SC Last administered on 01/26/17 18:02; Admin Dose 1 UNIT; Start 01/23/17 at 18:00 Miscellaneous Information (Pending Santyl Order For Wound Care) This patient dunaway... PRN PRN XX WOUND CARE; Start 01/24/17 at 07:30 Bisacodyl (Dulcolax Supp) 10 mg DAILY PRN [place] CONSTIPATION Last administered on 02/10/17 03:49; Admin Dose 10 MG; Start 01/25/17 at 16:30 Acetaminophen (Tylenol Liquid) 650 mg Q4H PRN NGT PAIN AND OR ELEVATED TEMP Last administered on 02/17/17 20:43; Admin Dose 650 MG; Start 01/26/17 at 09:00 Metoprolol Tartrate (Lopressor) 2.5 mg Q4H PRN IV HR > 110 Last administered on 02/10/17 07:01; Admin Dose 2.5 MG; Start 01/26/17 at 15:00 Midodrine (Proamatine) 5 mg Q8 PRN GTB BLOOD PRESSURE SUPPORT Last administered on 01/31/17 15:36; Admin Dose 5 MG; Start 01/28/17 at 16:30 Enoxaparin Sodium (Lovenox) 60 mg Q24H SC Last administered on 02/14/17 23:30 ; Admin Dose 60 MG; Start 02/03/17 at 00:00; Status Future Hold Nystatin (Nystatin Powder) 1 applic BID TOP Last administered on 02/18/17 08: 32; Admin Dose 1 APPLIC; Start 02/04/17 at 12:00 Metoprolol Tartrate 25 mg 25 mg BID PO Last administered on 02/16/17 09:04; Admin Dose 25 MG; Start 02/10/17 at 21:00 Dextrose/Sodium Chloride (D5-1/4ns) 1,000 ml @ 50 mls/hr Q20H IV Last administered on 02/17/17 18:08; Admin Dose 50 MLS/HR; Start 02/13/17 at 15:30 Eye Lubricant (Artificial Tears Oph) 2 drop Q6H PRN BOTH EYES DRY EYES Last administered on 02/17/17 20:18; Admin Dose 2 DROP; Start 02/13/17 at 15:30 Pantoprazole (Protonix Iv) 40 mg BID@06,18 IV Last administered on 02/18/17 05 :41; Admin Dose 40 MG; Start 02/14/17 at 16:45 Aspirin (Aspirin) 81 mg DAILY GTB Last administered on 02/18/17 08:43; Admin Dose 81 MG; Start 8/15/17 at 16:30 Nystatin (Nystatin Susp) 5 ml QID GTB Last administered on 02/18/17t 08:43; Admin Dose 5 ML; Start 02/18/17 at 08:00 YAJAIRA ALVAREZ MD Feb 18, 2017 10:48
[2017-02-18] MEDS: DEXTROSE 5%-0.225% NACL 1,000 ML IV SCH (14:01)
--- NOTE | 2017-02-18 17:54 | PN ---
Date/Time of Note Date/Time of Note DATE: 02/18/17 TIME: 17:35 Assessment/Plan VTE Prophylaxis VTE Prophylaxis Intervention: other Lines/Catheters [facility] PICC Line Central line still needed: Yes Urinary Cath still in place: Yes Reason Cath still needed: urinary retention Assessment/Plan Assessment/Plan - Urine C/S showed Gm Neg Rods - will give Rocephin 1 gm daily - will get records- [facility] - Possible bleeding from G-tube and hematuria. Status post EGD was notion of gastritis, continue Protonix. Monitor for signs of bleeding bleeding, monitor H &H. - Bilateral thalamic infarctions. - Dysphagia, status post G-tube placement by Dr. Garcia. - Atrial fibrillation with rapid ventricular response. Dr. Armenta is following and cardiology consultation. - Thrombosis of the bilateral cephalic veins. - Acute kidney injury, resolved. - History of CVA - History of hyperlipidemia - Left lower extremity, status post vascular surgery. D/C planning to SNF. Further recommendations based on clinical course. Plan of care discussed with Dr. Valdovinos. Subjective 24 Hr Interval Summary Free Text/Dictation -patient is alert.oriented to name , person, answers simple Qs, - Dr Valdovinos has dw family regarding her transfer/ blood thinners. Patient for transfer to [facility] when stable. No hematuria noted/ will give her Rocephin dw staff Respiratory: no complaints Cardiovascular: no complaints Gastrointestinal: no complaints Genitourinary: no complaints Musculoskeletal: no complaints Exam/Review of Systems Vital Signs Vitals Vital Signs Date Time Temp Pulse Resp B/P Pulse Ox O2 Delivery O2 Flow Rate FiO2 02/18/17 16:04 98.0 61 18 100/54 100 02/18/17 13:13 21 02/15/17 13:05 Room Air Intake and Output 02/17/17 02/17/17 02/18/17 15:00 23:00 07:00 Intake Total 2050 ml 1000 ml Output Total 1100 ml 1200 ml Balance 950 ml -200 ml Exam Constitutional: alert, well developed Respiratory: clear to auscultation, normal air movement Gastrointestinal: non-tender, soft Musculoskeletal: other Neurological: other (Left eye/facial droop noted) Results Result Diagram: 02/17/17 0702 02/17/17 0702 Results 24 hrs Laboratory Tests Test 02/17/17 18:05 02/18/17 00:35 02/18/17 05:43 02/18/17 11:36 Bedside Glucose 117 127 117 145 Medications Medications Current Medications Miscellaneous Information 1 ea NOTE XX ; Start 01/17/17 at 10:00 Glucose (Glutose) 15 gm Q15M PRN PO DECREASED GLUCOSE; Start 01/17/17 at 10:00 Glucose (Glutose) 22.5 gm Q15M PRN PO DECREASED GLUCOSE; Start 01/17/17 at 10: 00 Dextrose (D50w Syringe) 25 ml Q15M PRN IV DECREASED GLUCOSE; Start 01/17/17 at 10:00 Dextrose (D50w Syringe) 50 ml Q15M PRN IV DECREASED GLUCOSE; Start 01/17/17 at 10:00 Glucagon (Glucagen) 1 mg Q15M PRN IM DECREASED GLUCOSE; Start 01/17/17 at 10:00 Glucose (Glutose) 15 gm Q15M PRN BUCCAL DECREASED GLUCOSE; Start 01/17/17 at 10 :00 Collagenase (Santyl) 1 applic DAILY TOP Last administered on 02/18/17 08:33; Admin Dose 1 APPLIC; Start 01/17/17 at 21:00 IV Flush (NS 10 ml) 10 ml PRN PRN IV IV PROTOCOL; Start 01/22/17 at 12:00 Insulin Aspart (Novolog Insulin Pen) NOVOLOG *MILD* ALGORI... Q6 SC Last administered on 02/18/17 11:43; Admin Dose 1 UNIT; Start 01/23/17 at 18:00 Miscellaneous Information (Pending Santyl Order For Wound Care) This patient dunaway... PRN PRN XX WOUND CARE; Start 01/24/17 at 07:30 Bisacodyl (Dulcolax Supp) 10 mg DAILY PRN [place] CONSTIPATION Last administered on 02/10/17 03:49; Admin Dose 10 MG; Start 01/25/17 at 16:30 Acetaminophen (Tylenol Liquid) 650 mg Q4H PRN NGT PAIN AND OR ELEVATED TEMP Last administered on 02/17/17 20:43; Admin Dose 650 MG; Start 01/26/17 at 09:00 Metoprolol Tartrate (Lopressor) 2.5 mg Q4H PRN IV HR > 110 Last administered on 02/10/17 07:01; Admin Dose 2.5 MG; Start 01/26/17 at 15:00 Midodrine (Proamatine) 5 mg Q8 PRN GTB BLOOD PRESSURE SUPPORT Last administered on 01/31/17 15:36; Admin Dose 5 MG; Start 01/28/17 at 16:30 Enoxaparin Sodium (Lovenox) 60 mg Q24H SC Last administered on 02/14/17 23:30 ; Admin Dose 60 MG; Start 02/03/17 at 00:00; Status Future Hold Nystatin (Nystatin Powder) 1 applic BID TOP Last administered on 02/18/17 08: 32; Admin Dose 1 APPLIC; Start 02/04/17 at 12:00 Metoprolol Tartrate 25 mg 25 mg BID PO Last administered on 02/16/17 09:04; Admin Dose 25 MG; Start 02/10/17 at 21:00 Dextrose/Sodium Chloride (D5-1/4ns) 1,000 ml @ 50 mls/hr Q20H IV Last administered on 02/18/17 14:01; Admin Dose 50 MLS/HR; Start 02/13/17 at 15:30 Eye Lubricant (Artificial Tears Oph) 2 drop Q6H PRN BOTH EYES DRY EYES Last administered on 02/17/17 20:18; Admin Dose 2 DROP; Start 02/13/17 at 15:30 Nystatin (Nystatin Susp) 5 ml QID GTB Last administered on 02/18/17 14:03; Admin Dose 5 ML; Start 02/18/17 at 08:00 Apixaban (Eliquis) 5 mg BID PO ; Start 02/18/17 at 21:00 Lansoprazole (Prevacid) 30 mg BID@06,18 GTB ; Start 02/18/17 at 18:00 ALEXIS NAJERA Feb 18, 2017 17:47
[2017-02-18] MEDS: CEFTRIAXONE 1 GM/50 ML (PMX) 50 ML IVPB SCH (17:55)
[2017-02-18] MEDS: LANSOPRAZOLE 30 MG CAP GTB SCH (17:55)
--- NOTE | 2017-02-18 18:17 | CONS ---
Date/Time of Note Date/Time of Note DATE: 02/18/17 TIME: 18:08 Assessment/Plan Assessment/Plan Chief Complaint/Hosp Course Assessment/impression: - UTI - diffuse moderate degree of gastritis s/p EGD 02/15/2017 - gastritis due to H. pylori based on pathology 02/15/2017 - bleeding from GT site, and blood clots in tube feed - resolved - recurrent CVA - possible aspiration, improved - encephalopathy due to CVA. CSF from 01/19/2017: WBC=3, RBC=0, glu 53, pro=61, CSF ([place] serology negative, HSV negative, cocci CF negative, encephalitis meningitis panel could not be done due to a lack of sample), serum ([place] PCR negative, crypto antigen negative, cocci CF negative, histo CF negative). my order of crypto in CSF was cancelled and no reason given - bacteremia due to CoNS, probable contaminant. 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 pylori treatment to GI Dr. Garcia management d/w Pt's son, FELT CEMENTER Lina and Dr. Valdovinos Problems: Consultation Date/Type/Reason Admit Date/Time Jan 16, 2017 at 15:19 Initial Consult Date 01/17/17 Type of Consultation: INFECTIOUS DISEASE Referring Provider: LAWRENCE PICKERING 24 HR Interval Summary Subjective hx not possible: pt non-verbal Exam/Review of Systems Vital Signs Vitals Vital Signs Date Time Temp Pulse Resp B/P Pulse Ox O2 Delivery O2 Flow Rate FiO2 02/18/17 16:04 98.0 61 18 100/54 100 02/18/17 13:13 21 02/15/17 13:05 Room Air Intake and Output 02/17/17 02/17/17 02/18/17 15:00 23:00 07:00 Intake Total 2050 ml 1000 ml Output Total 1100 ml 1200 ml Balance 950 ml -200 ml Exam Constitutional: frail Psych: confusion Head: atraumatic, normocephalic Eyes: nl conjunctiva, nl lids ENMT: nl external ears & nose Respiratory: diminished breath sounds Cardiovascular: nl pulses, regular rate and rhythm Gastrointestinal: non-tender, other (GT), soft Musculoskeletal: nl extremities to inspection Extremities: No edema Neurological: confused, lethargic Skin: nl turgor, No rash or lesions Results Result Diagram: 02/17/1770102/17/17701 Results 24 hrs Laboratory Tests Test 02/18/17 00:35 02/18/17 05:43 02/18/17 11:36 Bedside Glucose 127 117 145 Medications Medications Current Medications Miscellaneous Information 1 ea NOTE XX ; Start 01/17/17 at 10:00 Glucose (Glutose) 15 gm Q15M PRN PO DECREASED GLUCOSE; Start 01/17/17 at 10:00 Glucose (Glutose) 22.5 gm Q15M PRN PO DECREASED GLUCOSE; Start 01/17/17 at 10: 00 Dextrose (D50w Syringe) 25 ml Q15M PRN IV DECREASED GLUCOSE; Start 01/17/17 at 10:00 Dextrose (D50w Syringe) 50 ml Q15M PRN IV DECREASED GLUCOSE; Start 01/17/17 at 10:00 Glucagon (Glucagen) 1 mg Q15M PRN IM DECREASED GLUCOSE; Start 01/17/17 at 10:00 Glucose (Glutose) 15 gm Q15M PRN BUCCAL DECREASED GLUCOSE; Start 01/17/17 at 10 :00 Collagenase (Santyl) 1 applic DAILY TOP Last administered on 02/18/17 08:33; Admin Dose 1 APPLIC; Start 01/17/17 at 21:00 IV Flush (NS 10 ml) 10 ml PRN PRN IV IV PROTOCOL; Start 01/22/17 at 12:00 Miscellaneous Information (Pending Santyl Order For Wound Care) This patient dunaway... PRN PRN XX WOUND CARE; Start 01/24/17 at 07:30 Bisacodyl (Dulcolax Supp) 10 mg DAILY PRN [place] CONSTIPATION Last administered on 02/10/17 03:49; Admin Dose 10 MG; Start 01/25/17 at 16:30 Acetaminophen (Tylenol Liquid) 650 mg Q4H PRN NGT PAIN AND OR ELEVATED TEMP Last administered on 02/17/17 20:43; Admin Dose 650 MG; Start 01/26/17 at 09:00 Metoprolol Tartrate (Lopressor) 2.5 mg Q4H PRN IV HR > 110 Last administered on 02/10/17 07:01; Admin Dose 2.5 MG; Start 01/26/17 at 15:00 Midodrine (Proamatine) 5 mg Q8 PRN GTB BLOOD PRESSURE SUPPORT Last administered on 01/31/17 15:36; Admin Dose 5 MG; Start 01/28/17 at 16:30 Enoxaparin Sodium (Lovenox) 60 mg Q24H SC Last administered on 02/14/17 23:30 ; Admin Dose 60 MG; Start 02/03/17 at 00:00; Status Future Hold Nystatin (Nystatin Powder) 1 applic BID TOP Last administered on 02/18/17 08: 32; Admin Dose 1 APPLIC; Start 02/04/17 at 12:00 Metoprolol Tartrate (Lopressor) 25 mg BID PO Last administered on 02/16/17 09: 04; Admin Dose 25 MG; Start 02/10/17 at 21:00 Eye Lubricant (Artificial Tears Oph) 2 drop Q6H PRN BOTH EYES DRY EYES Last administered on 02/17/17 20:18; Admin Dose 2 DROP; Start 02/13/17 at 15:30 Nystatin (Nystatin Susp) 5 ml QID GTB Last administered on 02/18/17 17:55; Admin Dose 5 ML; Start 02/18/17 at 08:00 Apixaban (Eliquis) 5 mg BID PO ; Start 02/18/17 at 21:00 Lansoprazole 30 mg 30 mg BID@06,18 GTB Last administered on 02/18/17 17:55; Admin Dose 30 MG; Start 02/18/17 at 18:00 Ceftriaxone Sodium (Rocephin) 50 ml @ 100 mls/hr Q24H IVPB Last administered on 02/18/17 17:55; Admin Dose 100 MLS/HR; Start 02/18/17 at 18:00 TYE STYLES M.D. Feb 18, 2017 18:17
[2017-02-18] MEDS: APIXABAN 5 MG TABLET PO SCH (21:10)
[2017-02-18] MEDS: ARTIFICIAL TEARS 15 ML OPH BOTH EYES PRN (21:13)
[2017-02-19] VITALS (13 sets, daily range): BP systolic 84–139; BP diastolic 55–70; PULSE 66–109; RESP 18–19
[2017-02-19] MEDS: LEVALBUTEROL (NEB) 0.63 MG/3 ML AMP HHN SCH ×4 (01:39→20:22)
[2017-02-19] MEDS: LANSOPRAZOLE 30 MG CAP GTB SCH ×2 (05:13→16:44)
[2017-02-19 06:54] LABS: ABNORMAL IP MESSAGE 1; BASOPHIL # 0.1 10^3/ul (0.0-0.1); BASOPHILS % 0.6 % (0.0-2.0); EOSINOPHILS # 0.2 10^3/ul (0.0-0.5); EOSINOPHILS % 1.8 % (0.0-7.0); HEMATOCRIT 32.2 % (37.0-47.0); HEMOGLOBIN 10.5 g/dl (12.0-16.0); LYMPHOCYTES # 1.2 10^3/ul (0.8-2.9); LYMPHOCYTES % 9.3 % (15.0-51.0); MEAN CORPUSCULAR HEMOGLOBIN 27.1 pg (29.0-33.0); MEAN CORPUSCULAR HGB CONC 32.6 g/dl (32.0-37.0); MEAN PLATELET VOLUME 13.4 fl (7.4-10.4); MONOCYTE # 0.7 10^3/ul (0.3-0.9); MONOCYTES % 5.6 % (0.0-11.0); NEUTROPHILS % 82.2 % (39.0-77.0); PLATELET COUNT 336 10^3/UL (140-415); RED BLOOD COUNT 3.88 10^6/ul (4.20-5.40); WHITE BLOOD COUNT 12.7 10^3/ul (4.8-10.8)
[2017-02-19 06:56] LABS: POSITIVE DIFF @See below
[2017-02-19 07:15] LABS: CALCIUM 9.5 mg/dl (8.4-10.2); CREATININE 0.88 mg/dl (0.44-1.00); POTASSIUM 3.8 mmol/L (3.5-5.1)
[2017-02-19] MEDS: COLLAGENASE 30 GM TUBE TOP SCH (09:00)
[2017-02-19] MEDS: ACETAMINOPHEN 650MG/20.3ML CUP NGT PRN (09:52)
[2017-02-19] MEDS: ARTIFICIAL TEARS 15 ML OPH BOTH EYES PRN ×2 (09:52→21:44)
[2017-02-19] MEDS: NYSTATIN SUSP 5 ML CUP GTB SCH ×4 (09:56→21:44)
[2017-02-19] MEDS: APIXABAN 5 MG TABLET PO SCH ×2 (09:57→21:44)
[2017-02-19] MEDS: METOPROLOL 25 MG TAB PO SCH (09:58)
[2017-02-19] MEDS: NYSTATIN 30 GM POWDER BTL TOP SCH ×2 (10:01→21:44)
--- NOTE | 2017-02-19 11:28 | CONS ---
Date/Time of Note Date/Time of Note DATE: 02/19/17 TIME: 11:24 Assessment/Plan Assessment/Plan Additional Assessment/Plan 1. AF-mainly rate controlled better now - will hold off on pacer given overall state. STABLE on tele - no intervention planned - RATE CONTROLLED. 2.Hypotension-now improved on midodrine - stable - Rx as needed, Borderline - tolerating feeds now. BETTER. 3.Encephalopathy/ams - multifactorial, no change noted. 4.coagulopathy-now decreased with coumadin held - on lovenox - no signs of bleeding now. STABLE. CHADS2 very high - I spoke with , unless significant bleeding, full anti-coaguialtion advised for a. fib qwith CVA - Eliquis 5 mg po bid reasonable. 5. Acute Renal failure-? secondary to vanc - will monitor now - better 6.Leukocytosis 7. Cardiomyopathy-EF 45% - euvolemic by exam. NO INDICATION FOR PACER/ICD now. 8. Cephalic vein thrombosis 9. Dysphagia s/p PEG - Rx with meds now Consultation Date/Type/Reason Admit Date/Time Jan 16, 2017 at 15:19 Initial Consult Date 01/26/17 Type of Consultation: INFECTIOUS DISEASE Referring Provider: LAWRENCE PICKERING 24 HR Interval Summary Free Text/Dictation No signs of bleeding now. STABLE. CHADS2 very high - I spoke with , unless significant bleeding, full anti-coaguialtion advised for a. fib qwith CVA - Eliquis 5 mg po bid reasonable. ROS: No fever, no chills, no nausea, no vomiting, no diarrhea/constipation No recent weight changes No chest pain, no PND, no orthopnea No dizziness, blurred vision No thirst, no heat or cold intolerance Exam/Review of Systems Vital Signs Vitals Vital Signs Date Time Temp Pulse Resp B/P Pulse Ox O2 Delivery O2 Flow Rate FiO2 02/19/17 08:13 108 02/19/17 07:43 18 98 21 02/19/17 06:59 99.5 126/60 02/15/17 13:05 Room Air Intake and Output 02/18/17 02/18/17 02/19/17 15:00 23:00 07:00 Intake Total 1150 ml 750 ml Output Total 600 ml 950 ml Balance 550 ml -200 ml Exam General: WN/WD/NAD, AOx 0 HEENT: Unicetric/atraumatic/EOMI (does not follow commands) NECK: JVD elevated, no thyromegaly Lymph: no lymphadenopathy HEART: Ir Irregular with no S3, II/ systolic murmur at apex LUNGS: Coarse sounds ABD: soft, NT, ND, +BS : Intact Neuro: s/p CVA SKIN: chronic changes EXT: trace edema Results Result Diagram: 02/19/17 0611 02/19/17 0547 Results 24 hrs Laboratory Tests Test 02/18/17 11:36 02/19/17 05:47 02/19/17 06:11 Bedside Glucose 145 Sodium Level 140 Potassium Level 3.8 Chloride Level 102 Carbon Dioxide Level 26 Anion Gap 16 Blood Urea Nitrogen 18 Creatinine 0.88 Glucose Level 116 Calcium Level 9.5 White Blood Count 12.7 #H Red Blood Count 3.88 L Hemoglobin 10.5 L Hematocrit 32.2 L Mean Corpuscular Volume 83.0 Mean Corpuscular Hemoglobin 27.1 L Mean Corpuscular Hemoglobin Concent 32.6 Red Cell Distribution Width 18.0 H Platelet Count 336 Mean Platelet Volume 13.4 H Neutrophils % 82.2 H Lymphocytes % 9.3 L Monocytes % 5.6 Eosinophils % 1.8 Basophils % 0.6 Nucleated Red Blood Cells % 0.0 Neutrophils # (Manual) 10 H Lymphocytes # 1.2 Monocytes # 0.7 Eosinophils # 0.2 Basophils # 0.1 Nucleated Red Blood Cells # 0.0 Medications Medications Current Medications Miscellaneous Information 1 ea NOTE XX ; Start 01/17/17 at 10:00 Glucose (Glutose) 15 gm Q15M PRN PO DECREASED GLUCOSE; Start 01/17/17 at 10:00 Glucose (Glutose) 22.5 gm Q15M PRN PO DECREASED GLUCOSE; Start 01/17/17 at 10: 00 Dextrose (D50w Syringe) 25 ml Q15M PRN IV DECREASED GLUCOSE; Start 01/17/17 at 10:00 Dextrose (D50w Syringe) 50 ml Q15M PRN IV DECREASED GLUCOSE; Start 01/17/17 at 10:00 Glucagon (Glucagen) 1 mg Q15M PRN IM DECREASED GLUCOSE; Start 01/17/17 at 10:00 Glucose (Glutose) 15 gm Q15M PRN BUCCAL DECREASED GLUCOSE; Start 01/17/17 at 10 :00 Collagenase (Santyl) 1 applic DAILY TOP Last administered on 02/18/17 08:33; Admin Dose 1 APPLIC; Start 01/17/17 at 21:00 IV Flush (NS 10 ml) 10 ml PRN PRN IV IV PROTOCOL; Start 01/22/17 at 12:00 Miscellaneous Information (Pending Santyl Order For Wound Care) This patient dunaway... PRN PRN XX WOUND CARE; Start 01/24/17 at 07:30 Bisacodyl (Dulcolax Supp) 10 mg DAILY PRN [place] CONSTIPATION Last administered on 02/10/17 03:49; Admin Dose 10 MG; Start 01/25/17 at 16:30 Acetaminophen (Tylenol Liquid) 650 mg Q4H PRN NGT PAIN AND OR ELEVATED TEMP Last administered on 02/19/17 09:52; Admin Dose 650 MG; Start 01/26/17 at 09:00 Metoprolol Tartrate (Lopressor) 2.5 mg Q4H PRN IV HR > 110 Last administered on 02/10/17 07:01; Admin Dose 2.5 MG; Start 01/26/17 at 15:00 Midodrine (Proamatine) 5 mg Q8 PRN GTB BLOOD PRESSURE SUPPORT Last administered on 01/31/17 15:36; Admin Dose 5 MG; Start 01/28/17 at 16:30 Enoxaparin Sodium (Lovenox) 60 mg Q24H SC Last administered on 02/14/17 23:30 ; Admin Dose 60 MG; Start 02/03/17 at 00:00; Status Future Hold Nystatin (Nystatin Powder) 1 applic BID TOP Last administered on 02/19/17 10: 01; Admin Dose 1 APPLIC; Start 02/04/17 at 12:00 Metoprolol Tartrate (Lopressor) 25 mg BID PO Last administered on 02/19/17 09: 58; Admin Dose 25 MG; Start 02/10/17 at 21:00 Eye Lubricant (Artificial Tears Oph) 2 drop Q6H PRN BOTH EYES DRY EYES Last administered on 02/19/17 09:52; Admin Dose 2 DROP; Start 02/13/17 at 15:30 Nystatin (Nystatin Susp) 5 ml QID GTB Last administered on 02/19/17 09:56; Admin Dose 5 ML; Start 02/18/17 at 08:00 Apixaban (Eliquis) 5 mg BID PO Last administered on 02/19/17 09:57; Admin Dose 5 MG; Start 02/18/17 at 21:00 Lansoprazole 30 mg 30 mg BID@06,18 GTB Last administered on 02/19/17 05:13; Admin Dose 30 MG; Start 02/18/17 at 18:00 Ceftriaxone Sodium (Rocephin) 50 ml @ 100 mls/hr Q24H IVPB Last administered on 02/18/17 17:55; Admin Dose 100 MLS/HR; Start 02/18/17 at 18:00 YAJAIRA ALVAREZ MD Feb 19, 2017 11:27
[2017-02-19] MEDS: MIDODRINE 5 MG TAB GTB PRN (11:57)
--- NOTE | 2017-02-19 14:56 | PN ---
Date/Time of Note Date/Time of Note DATE: 02/19/17 TIME: 14:53 Assessment/Plan VTE Prophylaxis VTE Prophylaxis Intervention: SCD's Lines/Catheters IV Catheter Type (from [facility], [place]): PICC Line Central line still needed: Yes Urinary Cath still in place: Yes Reason Cath still needed: urinary retention Assessment/Plan Chief Complaint/Hosp Course Patient is with hypertension and leukocytosis today we will obtain blood cultures and chest x-ray. Assessment/Plan -Systemic inflammatory response syndrome with hypotension and low-grade fever -Urinary tract infection, continue antibiotics per ID. Dr. Abarca is following in an infection disease consultation. - Possible bleeding from G-tube and hematuria, resolved status post EGD was notion of gastritis, continue Protonix. Monitor for signs of bleeding bleeding , monitor H&H. - Bilateral thalamic infarctions. - Dysphagia, status post G-tube placement by Dr. Garcia. - Atrial fibrillation with rapid ventricular response. Dr. Armenta is following and cardiology consultation. Started on Eliquis. - Thrombosis of the bilateral cephalic veins. - Acute kidney injury, resolved. - History of CVA - History of hyperlipidemia Further recommendations based on clinical course. Plan of care discussed with Dr. Valdovinos. Problems: Exam/Review of Systems Vital Signs Vitals Vital Signs Date Time Temp Pulse Resp B/P Pulse Ox O2 Delivery O2 Flow Rate FiO2 02/19/17 13:36 66 18 100/58 Room Air 02/19/17 13:21 98 21 02/19/17 11:33 98.5 Intake and Output 02/18/17 02/18/17 02/19/17 15:00 23:00 07:00 Intake Total 1150 ml 750 ml Output Total 600 ml 950 ml Balance 550 ml -200 ml Exam Psych: confusion Neck: supple Respiratory: normal air movement Cardiovascular: irregular rhythm Gastrointestinal: other (G-tube), soft Extremities: normal pulses Neurological: focal weakness Results Result Diagram: 02/19/17 0611 02/19/17 0547 Results 24 hrs Laboratory Tests Test 02/19/17 05:47 02/19/17 06:11 Sodium Level 140 Potassium Level 3.8 Chloride Level 102 Carbon Dioxide Level 26 Anion Gap 16 Blood Urea Nitrogen 18 Creatinine 0.88 Glucose Level 116 Calcium Level 9.5 White Blood Count 12.7 #H Red Blood Count 3.88 L Hemoglobin 10.5 L Hematocrit 32.2 L Mean Corpuscular Volume 83.0 Mean Corpuscular Hemoglobin 27.1 L Mean Corpuscular Hemoglobin Concent 32.6 Red Cell Distribution Width 18.0 H Platelet Count 336 Mean Platelet Volume 13.4 H Neutrophils % 82.2 H Lymphocytes % 9.3 L Monocytes % 5.6 Eosinophils % 1.8 Basophils % 0.6 Nucleated Red Blood Cells % 0.0 Neutrophils # (Manual) 10 H Lymphocytes # 1.2 Monocytes # 0.7 Eosinophils # 0.2 Basophils # 0.1 Nucleated Red Blood Cells # 0.0 Medications Medications Current Medications Miscellaneous Information 1 ea NOTE XX ; Start 01/17/17 at 10:00 Glucose (Glutose) 15 gm Q15M PRN PO DECREASED GLUCOSE; Start 01/17/17 at 10:00 Glucose (Glutose) 22.5 gm Q15M PRN PO DECREASED GLUCOSE; Start 01/17/17 at 10: 00 Dextrose (D50w Syringe) 25 ml Q15M PRN IV DECREASED GLUCOSE; Start 01/17/17 at 10:00 Dextrose (D50w Syringe) 50 ml Q15M PRN IV DECREASED GLUCOSE; Start 01/17/17 at 10:00 Glucagon (Glucagen) 1 mg Q15M PRN IM DECREASED GLUCOSE; Start 01/17/17 at 10:00 Glucose (Glutose) 15 gm Q15M PRN BUCCAL DECREASED GLUCOSE; Start 01/17/17 at 10 :00 Collagenase (Santyl) 1 applic DAILY TOP Last administered on 02/18/17 08:33; Admin Dose 1 APPLIC; Start 01/17/17 at 21:00 IV Flush (NS 10 ml) 10 ml PRN PRN IV IV PROTOCOL; Start 01/22/17 at 12:00 Miscellaneous Information (Pending Santyl Order For Wound Care) This patient dunaway... PRN PRN XX WOUND CARE; Start 01/24/17 at 07:30 Bisacodyl (Dulcolax Supp) [address] CONSTIPATION Last administered on 02/10/17 03:49; Admin Dose 10 MG; Start 01/25/17 at 16:30 Acetaminophen (Tylenol Liquid) 650 mg Q4H PRN NGT PAIN AND OR ELEVATED TEMP Last administered on 02/19/17 09:52; Admin Dose 650 MG; Start 01/26/17 at 09:00 Metoprolol Tartrate (Lopressor) 2.5 mg Q4H PRN IV HR > 110 Last administered on 02/10/17 07:01; Admin Dose 2.5 MG; Start 01/26/17 at 15:00 Midodrine (Proamatine) 5 mg Q8 PRN GTB BLOOD PRESSURE SUPPORT Last administered on 02/19/17 11:57; Admin Dose 5 MG; Start 01/28/17 at 16:30 Enoxaparin Sodium (Lovenox) 60 mg Q24H SC Last administered on 02/14/17 23:30 ; Admin Dose 60 MG; Start 02/03/17 at 00:00; Status Future Hold Nystatin (Nystatin Powder) 1 applic BID TOP Last administered on 02/19/17 10: 01; Admin Dose 1 APPLIC; Start 02/04/17 at 12:00 Metoprolol Tartrate (Lopressor) 25 mg BID PO Last administered on 02/19/17 09: 58; Admin Dose 25 MG; Start 02/10/17 at 21:00 Eye Lubricant (Artificial Tears Oph) 2 drop Q6H PRN BOTH EYES DRY EYES Last administered on 02/19/17 09:52; Admin Dose 2 DROP; Start 02/13/17 at 15:30 Nystatin (Nystatin Susp) 5 ml QID GTB Last administered on 02/19/17 12:04; Admin Dose 5 ML; Start 02/18/17 at 08:00 Apixaban (Eliquis) 5 mg BID PO Last administered on 02/19/17 09:57; Admin Dose 5 MG; Start 02/18/17 at 21:00 Lansoprazole 30 mg 30 mg BID@06,18 GTB Last administered on 02/19/17 05:13; Admin Dose 30 MG; Start 02/18/17 at 18:00 Ceftriaxone Sodium (Rocephin) 50 ml @ 100 mls/hr Q24H IVPB Last administered on 02/18/17 17:55; Admin Dose 100 MLS/HR; Start 02/18/17 at 18:00 LAWRENCE PICKERING Feb 19, 2017 14:56
[2017-02-19] MEDS: CEFTRIAXONE 1 GM/50 ML (PMX) 50 ML IVPB SCH (16:46)
--- NOTE | 2017-02-19 17:11 | CONS ---
GIRISH SCHMITZ THUMB SEWER 02/19/17 1711: Date/Time of Note Date/Time of Note DATE: 02/19/17 TIME: 17:08 Assessment/Plan Assessment/Plan Chief Complaint/Hosp Course - UTI due to proteus - diffuse moderate degree of gastritis s/p EGD 02/15/2017 - gastritis due to H. pylori based on pathology 02/15/2017 - bleeding from GT site, and blood clots in tube feed - resolved - recurrent CVA - possible aspiration, improved - encephalopathy due to CVA. CSF from 01/19/2017: WBC=3, RBC=0, glu 53, pro=61, CSF ([place] serology negative, HSV negative, cocci CF negative, encephalitis meningitis panel could not be done due to a lack of sample), serum ([place] PCR negative, crypto antigen negative, cocci CF negative, histo CF negative). my order of crypto in CSF was cancelled and no reason given - bacteremia due to CoNS, probable contaminant. 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 pylori treatment to GI (Dr. Garcia); we recommend clarithromycin based anti-H. pylori treatment if okay with GI, Dr. Garcia. Management d/w NARESH Thompson and Dr. Carbajal Problems: Consultation Date/Type/Reason Admit Date/Time Jan 16, 2017 at 15:19 Initial Consult Date 01/17/17 Type of Consultation: Infectious Disease Referring Provider: LAWRENCE PICKERING 24 HR Interval Summary Free Text/Dictation WBC up to 12.7 and Tmax 99.5 F. Started on Ceftriaxone yesterday for possible UTI. Clinically unchanged per d/w nursing staff. Unable to perform ROS d/t encephalopathy. Exam/Review of Systems Vital Signs Vitals Vital Signs Date Time Temp Pulse Resp B/P Pulse Ox O2 Delivery O2 Flow Rate FiO2 02/19/17 16:29 81 02/19/17 16:02 98.7 18 103/57 98 02/19/17 13:36 Room Air 02/19/17 13:21 21 Intake and Output 02/18/17 02/18/17 02/19/17 15:00 23:00 07:00 Intake Total 1150 ml 750 ml Output Total 600 ml 950 ml Balance 550 ml -200 ml Exam Constitutional: frail, non-verbal, Other (lethargic) Head: atraumatic, normocephalic Respiratory: diminished breath sounds, No wheezing Cardiovascular: irregular rhythm Gastrointestinal: other (G-tube intact), soft, No tender Genitourinary - Female: other (Lees catheter present) Musculoskeletal: nl extremities to inspection, normal pulses Extremities: No edema, Other (L heel eschar and new dressing is being applied by RN) Neurological: lethargic Skin: nl turgor Results Result Diagram: 02/19/17 0611 02/19/17 0547 Results 24 hrs Laboratory Tests Test 02/19/17 05:47 02/19/17 06:11 Sodium Level 140 Potassium Level 3.8 Chloride Level 102 Carbon Dioxide Level 26 Anion Gap 16 Blood Urea Nitrogen 18 Creatinine 0.88 Glucose Level 116 Calcium Level 9.5 White Blood Count 12.7 #H Red Blood Count 3.88 L Hemoglobin 10.5 L Hematocrit 32.2 L Mean Corpuscular Volume 83.0 Mean Corpuscular Hemoglobin 27.1 L Mean Corpuscular Hemoglobin Concent 32.6 Red Cell Distribution Width 18.0 H Platelet Count 336 Mean Platelet Volume 13.4 H Neutrophils % 82.2 H Lymphocytes % 9.3 L Monocytes % 5.6 Eosinophils % 1.8 Basophils % 0.6 Nucleated Red Blood Cells % 0.0 Neutrophils # (Manual) 10 H Lymphocytes # 1.2 Monocytes # 0.7 Eosinophils # 0.2 Basophils # 0.1 Nucleated Red Blood Cells # 0.0 Medications Medications Current Medications Miscellaneous Information 1 ea NOTE XX ; Start 01/17/17 at 10:00 Glucose (Glutose) 15 gm Q15M PRN PO DECREASED GLUCOSE; Start 01/17/17 at 10:00 Glucose (Glutose) 22.5 gm Q15M PRN PO DECREASED GLUCOSE; Start 01/17/17 at 10: 00 Dextrose (D50w Syringe) 25 ml Q15M PRN IV DECREASED GLUCOSE; Start 01/17/17 at 10:00 Dextrose (D50w Syringe) 50 ml Q15M PRN IV DECREASED GLUCOSE; Start 01/17/17 at 10:00 Glucagon (Glucagen) 1 mg Q15M PRN IM DECREASED GLUCOSE; Start 01/17/17 at 10:00 Glucose (Glutose) 15 gm Q15M PRN BUCCAL DECREASED GLUCOSE; Start 01/17/17 at 10 :00 Collagenase (Santyl) 1 applic DAILY TOP Last administered on 02/19/17 09:00; Admin Dose 1 APPLIC; Start 01/17/17 at 21:00 IV Flush (NS 10 ml) 10 ml PRN PRN IV IV PROTOCOL; Start 01/22/17 at 12:00 Miscellaneous Information (Pending Santyl Order For Wound Care) This patient dunaway... PRN PRN XX WOUND CARE; Start 01/24/17 at 07:30 Bisacodyl (Dulcolax Supp) 10 mg DAILY PRN [place] CONSTIPATION Last administered on 02/10/17 03:49; Admin Dose 10 MG; Start 01/25/17 at 16:30 Acetaminophen (Tylenol Liquid) 650 mg Q4H PRN NGT PAIN AND OR ELEVATED TEMP Last administered on 02/19/17 09:52; Admin Dose 650 MG; Start 01/26/17 at 09:00 Metoprolol Tartrate (Lopressor) 2.5 mg Q4H PRN IV HR > 110 Last administered on 02/10/17 07:01; Admin Dose 2.5 MG; Start 01/26/17 at 15:00 Midodrine (Proamatine) 5 mg Q8 PRN GTB BLOOD PRESSURE SUPPORT Last administered on 02/19/17 11:57; Admin Dose 5 MG; Start 01/28/17 at 16:30 Enoxaparin Sodium (Lovenox) 60 mg Q24H SC Last administered on 02/14/17 23:30 ; Admin Dose 60 MG; Start 02/03/17 at 00:00; Status Future Hold Nystatin (Nystatin Powder) 1 applic BID TOP Last administered on 02/19/17 10: 01; Admin Dose 1 APPLIC; Start 02/04/17 at 12:00 Metoprolol Tartrate (Lopressor) 25 mg BID PO Last administered on 02/19/17 09: 58; Admin Dose 25 MG; Start 02/10/17 at 21:00 Eye Lubricant (Artificial Tears Oph) 2 drop Q6H PRN BOTH EYES DRY EYES Last administered on 02/19/17 09:52; Admin Dose 2 DROP; Start 02/13/17 at 15:30 Nystatin (Nystatin Susp) 5 ml QID GTB Last administered on 02/19/17 16:44; Admin Dose 5 ML; Start 02/18/17 at 08:00 Apixaban (Eliquis) 5 mg BID PO Last administered on 02/19/17 09:57; Admin Dose 5 MG; Start 02/18/17 at 21:00 Lansoprazole 30 mg 30 mg BID@06,18 GTB Last administered on 02/19/17 16:44; Admin Dose 30 MG; Start 02/18/17 at 18:00 Ceftriaxone Sodium (Rocephin) 50 ml @ 100 mls/hr Q24H IVPB Last administered on 02/19/17 16:46; Admin Dose 100 MLS/HR; Start 02/18/17 at 18:00 TYE CARBAJAL M.D. 02/21/17 2250: Assessment/Plan Assessment/Plan Additional Assessment/Plan Raven attestation: I discussed the management with LUNA Schmitz and agree with above. Exam/Review of Systems Results Result Diagram: 02/19/17 0611 02/19/17 0547 GIRISH SCHMITZ NP Feb 19, 2017 17:11 TYE CARBAJAL M.D. Feb 21, 2017 22:50
--- NOTE | 2017-02-19 19:15 | RADRPT ---
PROCEDURE: XR Chest. CLINICAL INDICATION: Fever TECHNIQUE: Single AP portable chest. COMPARISON: 02/09/2017 chest x-ray FINDINGS: The cardiac silhouette is moderately enlarged but stable in size. Minimal vascular congestion. Lef t PICC line catheter in stable and satisfactory position. Atherosclerotic calcification of the aor ta. The lungs are clear without pleural effusion or focal consolidation. No pneumothorax. The osseo us structures and soft tissues are unremarkable. IMPRESSION: 1. Cardiomegaly and mild vascular congestion. No focal consolidation or pleural effusion . RPTAT:AAJJ Yashira Lopez Physician Date Time Electronically viewed and signed by Physician Peewee on 02/19/2017 19:14 KATERIN/
[2017-02-20] VITALS (10 sets, daily range): BP systolic 96–123; BP diastolic 51–78; PULSE 61–107; RESP 16–18
[2017-02-20] MEDS: LEVALBUTEROL (NEB) 0.63 MG/3 ML AMP HHN SCH ×4 (02:14→20:28)
[2017-02-20] MEDS: LANSOPRAZOLE 30 MG CAP GTB SCH ×2 (05:49→17:58)
[2017-02-20 06:46] LABS: ABNORMAL IP MESSAGE 1; BASOPHIL # 0.1 10^3/ul (0.0-0.1); BASOPHILS % 0.9 % (0.0-2.0); EOSINOPHILS # 0.5 10^3/ul (0.0-0.5); EOSINOPHILS % 4.7 % (0.0-7.0); HEMATOCRIT 32.7 % (37.0-47.0); HEMOGLOBIN 10.4 g/dl (12.0-16.0); LYMPHOCYTES # 1.7 10^3/ul (0.8-2.9); LYMPHOCYTES % 16.5 % (15.0-51.0); MEAN CORPUSCULAR HEMOGLOBIN 26.4 pg (29.0-33.0); MEAN CORPUSCULAR HGB CONC 31.8 g/dl (32.0-37.0); MEAN PLATELET VOLUME 13.3 fl (7.4-10.4); MONOCYTE # 0.7 10^3/ul (0.3-0.9); MONOCYTES % 7.1 % (0.0-11.0); NEUTROPHILS % 70.1 % (39.0-77.0); PLATELET COUNT 341 10^3/UL (140-415); RED BLOOD COUNT 3.94 10^6/ul (4.20-5.40); RED CELL DISTRIBUTION WIDTH 17.8 % (11.5-14.5); WHITE BLOOD COUNT 10.1 10^3/ul (4.8-10.8)
[2017-02-20 07:00] LABS: POSITIVE DIFF @See below
[2017-02-20 07:16] LABS: CALCIUM 9.9 mg/dl (8.4-10.2); CREATININE 0.9 mg/dl (0.44-1.00); POTASSIUM 4.1 mmol/L (3.5-5.1)
--- NOTE | 2017-02-20 09:19 | PN ---
Date/Time of Note Date/Time of Note DATE: 02/20/17 TIME: 09:18 Assessment/Plan VTE Prophylaxis VTE Prophylaxis Intervention: other Lines/Catheters IV Catheter Type (from Nrs): PICC Line Central line still needed: Yes Urinary Cath still in place: Yes Reason Cath still needed: skin wounds contaminated by urine Assessment/Plan Chief Complaint/Hosp Course -Systemic inflammatory response syndrome with hypotension and low-grade fever -Urinary tract infection, continue antibiotics per ID. Dr. Abarca is following in an infection disease consultation. - Possible bleeding from G-tube and hematuria, resolved status post EGD was notion of gastritis, continue Protonix. Monitor for signs of bleeding bleeding , monitor H&H. - Bilateral thalamic infarctions. - Dysphagia, status post G-tube placement by Dr. Garcia. - Atrial fibrillation with rapid ventricular response. Dr. Armenta is following and cardiology consultation. Started on Eliquis. - Thrombosis of the bilateral cephalic veins. - Acute kidney injury, resolved. - History of CVA - History of hyperlipidemia Problems: Subjective 24 Hr Interval Summary Free Text/Dictation Patient is not interactive Exam/Review of Systems Vital Signs Vitals Vital Signs Date Time Temp Pulse Resp B/P Pulse Ox O2 Delivery O2 Flow Rate FiO2 02/20/17 08:39 100 02/20/17 07:41 24 99 21 02/20/17 03:50 98.2 113/78 02/19/17 13:36 Room Air Intake and Output 02/19/17 02/19/17 02/20/17 15:00 23:00 07:00 Intake Total 1250 ml 800 ml Output Total 1000 ml 1600 ml Balance 250 ml -800 ml Exam Constitutional: well developed Head: atraumatic, normocephalic Neck: supple Respiratory: diminished breath sounds Cardiovascular: regular rate and rhythm Gastrointestinal: non-tender, soft Extremities: normal pulses Results Result Diagram: 02/20/17 0605 02/20/17 0606 Results 24 hrs Laboratory Tests Test 02/20/17 06:05 02/20/17 06:06 White Blood Count 10.1 # Red Blood Count 3.94 L Hemoglobin 10.4 L Hematocrit 32.7 L Mean Corpuscular Volume 83.0 Mean Corpuscular Hemoglobin 26.4 L Mean Corpuscular Hemoglobin Concent 31.8 L Red Cell Distribution Width 17.8 H Platelet Count 341 Mean Platelet Volume 13.3 H Neutrophils % 70.1 Lymphocytes % 16.5 Monocytes % 7.1 Eosinophils % 4.7 Basophils % 0.9 Nucleated Red Blood Cells % 0.0 Neutrophils # (Manual) 7 Lymphocytes # 1.7 Monocytes # 0.7 Eosinophils # 0.5 Basophils # 0.1 Nucleated Red Blood Cells # 0.0 Sodium Level 140 Potassium Level 4.1 Chloride Level 103 Carbon Dioxide Level 26 Anion Gap 15 Blood Urea Nitrogen 21 H Creatinine 0.90 Glucose Level 97 Calcium Level 9.9 Medications Medications Current Medications Miscellaneous Information 1 ea NOTE XX ; Start 01/17/17 at 10:00 Glucose (Glutose) 15 gm Q15M PRN PO DECREASED GLUCOSE; Start 01/17/17 at 10:00 Glucose (Glutose) 22.5 gm Q15M PRN PO DECREASED GLUCOSE; Start 01/17/17 at 10: 00 Dextrose (D50w Syringe) 25 ml Q15M PRN IV DECREASED GLUCOSE; Start 01/17/17 at 10:00 Dextrose (D50w Syringe) 50 ml Q15M PRN IV DECREASED GLUCOSE; Start 01/17/17 at 10:00 Glucagon (Glucagen) 1 mg Q15M PRN IM DECREASED GLUCOSE; Start 01/17/17 at 10:00 Glucose (Glutose) 15 gm Q15M PRN BUCCAL DECREASED GLUCOSE; Start 01/17/17 at 10 :00 Collagenase (Santyl) 1 applic DAILY TOP Last administered on 02/19/17 09:00; Admin Dose 1 APPLIC; Start 01/17/17 at 21:00 IV Flush (NS 10 ml) 10 ml PRN PRN IV IV PROTOCOL Last administered on 21:45; Admin Dose 10 ML; Start 01/22/17 at 12:00 Miscellaneous Information (Pending Santyl Order For Wound Care) This patient dunaway... PRN PRN XX WOUND CARE; Start 01/24/17 at 07:30 Bisacodyl (Dulcolax Supp) 10 mg DAILY PRN [place] CONSTIPATION Last administered on 02/10/17 03:49; Admin Dose 10 MG; Start 01/25/17 at 16:30 Acetaminophen (Tylenol Liquid) 650 mg Q4H PRN NGT PAIN AND OR ELEVATED TEMP Last administered on 02/19/17 09:52; Admin Dose 650 MG; Start 01/26/17 at 09:00 Metoprolol Tartrate (Lopressor) 2.5 mg Q4H PRN IV HR > 110 Last administered on 02/10/17 07:01; Admin Dose 2.5 MG; Start 01/26/17 at 15:00 Midodrine (Proamatine) 5 mg Q8 PRN GTB BLOOD PRESSURE SUPPORT Last administered on 02/19/17 11:57; Admin Dose 5 MG; Start 01/28/17 at 16:30 Enoxaparin Sodium (Lovenox) 60 mg Q24H SC Last administered on 02/14/17 23:30 ; Admin Dose 60 MG; Start 02/03/17 at 00:00; Status Future Hold Nystatin (Nystatin Powder) 1 applic BID TOP Last administered on 02/19/17 21: 44; Admin Dose 1 APPLIC; Start 02/04/17 at 12:00 Metoprolol Tartrate (Lopressor) 25 mg BID PO Last administered on 02/19/17 09: 58; Admin Dose 25 MG; Start 02/10/17 at 21:00; Status Future Hold Eye Lubricant (Artificial Tears Oph) 2 drop Q6H PRN BOTH EYES DRY EYES Last administered on 02/19/17 21:44; Admin Dose 2 DROP; Start 02/13/17 at 15:30 Nystatin (Nystatin Susp) 5 ml QID GTB Last administered on 02/19/17 21:44; Admin Dose 5 ML; Start 02/18/17 at 08:00 Apixaban (Eliquis) 5 mg BID PO Last administered on 02/19/17 21:44; Admin Dose 5 MG; Start 02/18/17 at 21:00 Lansoprazole 30 mg 30 mg BID@06,18 GTB Last administered on 02/20/17 05:49; Admin Dose 30 MG; Start 02/18/17 at 18:00 Ceftriaxone Sodium (Rocephin) 50 ml @ 100 mls/hr Q24H IVPB Last administered on 02/19/17 16:46; Admin Dose 100 MLS/HR; Start 02/18/17 at 18:00 JOSE LOMAS Feb 20, 2017 09:19
--- NOTE | 2017-02-20 09:22 | PRO ---
DATE OF PROCEDURE: 01/26/2017 HISTORY: This is a 61-year-old woman with history of atrial fibrillation and stroke who was admitted following found unresponsive. CURRENT MEDICATION: Keppra. PROCEDURE PERFORMED: Utilizing a 16 channel EEG machine scalp electrodes were applied according to the International 10-20 system. Scalp to scalp and scalp to ear montages were displayed, electrical impedances were measured and reported . During a resting state, a posterior dominant rhythm of about 6-7 hertz were seen bihemispherically. Photo stimulation had no responses. Hyperventilation was not performed. There was no focal lateralizing or epileptiform discharges identified. INTERPRETATION: This is an abnormal EEG due to presence of generalized bihemispheric background slowing without epileptiform activities consistent with encephalopathy. Please correlate these findings with the patient's clinical picture. Dictated By: Ana M Kerr MD /ange/debbi /Document#: [id number]
[2017-02-20] MEDS: COLLAGENASE 30 GM TUBE TOP SCH (09:51)
[2017-02-20] MEDS: NYSTATIN 30 GM POWDER BTL TOP SCH ×2 (09:51→20:24)
[2017-02-20] MEDS: APIXABAN 5 MG TABLET PO SCH ×2 (09:51→20:24)
[2017-02-20] MEDS: NYSTATIN SUSP 5 ML CUP GTB SCH ×4 (09:51→20:24)
--- NOTE | 2017-02-20 16:45 | CONS ---
Date/Time of Note Date/Time of Note DATE: 02/20/17 TIME: 16:39 Assessment/Plan Assessment/Plan Additional Assessment/Plan 1. AF-mainly rate controlled better now - will hold off on pacer given overall state. STABLE on tele - no intervention planned - RATE CONTROLLED. 2.Hypotension-now improved on midodrine - stable - BETTER since metoprolol was stopped. 3.Encephalopathy/ams - multifactorial, no change noted. 4.coagulopathy-now decreased with coumadin held - on lovenox - no signs of bleeding now. STABLE. CHADS2 very high - unless significant bleeding full anti- coaguialtion advised by Dr Darnell for a. fib qwith CVA - Eliquis 5 mg po bid reasonable. 5. Acute Renal failure-? secondary to vanc - will monitor now - better 6.Leukocytosis 7. Cardiomyopathy-EF 45% - euvolemic by exam. NO INDICATION FOR PACER/ICD now. 8. Cephalic vein thrombosis 9. Dysphagia s/p PEG - Rx with meds now Consultation Date/Type/Reason Admit Date/Time Jan 16, 2017 at 15:19 Initial Consult Date 01/26/17 Type of Consultation: Infectious Disease Referring Provider: LAWRENCE PICKERING 24 HR Interval Summary Free Text/Dictation Sleepy no ROS Exam/Review of Systems Vital Signs Vitals Vital Signs Date Time Temp Pulse Resp B/P Pulse Ox O2 Delivery O2 Flow Rate FiO2 02/20/17 15:18 98.3 94 16 102/55 95 02/20/17 13:32 21 02/19/17 13:36 Room Air Intake and Output 02/19/17 02/19/17 02/20/17 15:00 23:00 07:00 Intake Total 1250 ml 800 ml Output Total 1000 ml 1600 ml Balance 250 ml -800 ml Exam General: WN/WD/ sleepy HEENT: Unicetric/atraumatic/ no assymetry NECK: JVD not elevated, no thyromegaly, carotids revealed normal upstrokes Lymph: no lymphadenopathy HEART: irregular, I/ systolic murmur at apex LUNGS: clear ABD: soft, NT, ND, +BS, no organomegaly Neuro: no deficit SKIN: no leisons EXT: no edema Results Result Diagram: 02/20/17 0602/20/17 0606 Results 24 hrs Laboratory Tests Test 02/20/17 06:05 02/20/17 06:06 White Blood Count 10.1 # Red Blood Count 3.94 L Hemoglobin 10.4 L Hematocrit 32.7 L Mean Corpuscular Volume 83.0 Mean Corpuscular Hemoglobin 26.4 L Mean Corpuscular Hemoglobin Concent 31.8 L Red Cell Distribution Width 17.8 H Platelet Count 341 Mean Platelet Volume 13.3 H Neutrophils % 70.1 Lymphocytes % 16.5 Monocytes % 7.1 Eosinophils % 4.7 Basophils % 0.9 Nucleated Red Blood Cells % 0.0 Neutrophils # (Manual) 7 Lymphocytes # 1.7 Monocytes # 0.7 Eosinophils # 0.5 Basophils # 0.1 Nucleated Red Blood Cells # 0.0 Sodium Level 140 Potassium Level 4.1 Chloride Level 103 Carbon Dioxide Level 26 Anion Gap 15 Blood Urea Nitrogen 21 H Creatinine 0.90 Glucose Level 97 Calcium Level 9.9 Medications Medications Current Medications Miscellaneous Information 1 ea NOTE XX ; Start 01/17/17 at 10:00 Glucose (Glutose) 15 gm Q15M PRN PO DECREASED GLUCOSE; Start 01/17/17 at 10:00 Glucose (Glutose) 22.5 gm Q15M PRN PO DECREASED GLUCOSE; Start 01/17/17 at 10: 00 Dextrose (D50w Syringe) 25 ml Q15M PRN IV DECREASED GLUCOSE; Start 01/17/17 at 10:00 Dextrose (D50w Syringe) 50 ml Q15M PRN IV DECREASED GLUCOSE; Start 01/17/17 at 10:00 Glucagon (Glucagen) 1 mg Q15M PRN IM DECREASED GLUCOSE; Start 01/17/17 at 10:00 Glucose (Glutose) 15 gm Q15M PRN BUCCAL DECREASED GLUCOSE; Start 01/17/17 at 10 :00 Collagenase (Santyl) 1 applic DAILY TOP Last administered on 02/20/17 09:51; Admin Dose 1 APPLIC; Start 01/17/17 at 21:00 IV Flush (NS 10 ml) 10 ml PRN PRN IV IV PROTOCOL Last administered on 21:45; Admin Dose 10 ML; Start 01/22/17 at 12:00 Miscellaneous Information (Pending Santyl Order For Wound Care) This patient dunaway... PRN PRN XX WOUND CARE; Start 01/24/17 at 07:30 Bisacodyl (Dulcolax Supp) 10 mg DAILY PRN [place] CONSTIPATION Last administered on 02/10/17 03:49; Admin Dose 10 MG; Start 01/25/17 at 16:30 Acetaminophen (Tylenol Liquid) 650 mg Q4H PRN NGT PAIN AND OR ELEVATED TEMP Last administered on 02/19/17 09:52; Admin Dose 650 MG; Start 01/26/17 at 09:00 Metoprolol Tartrate (Lopressor) 2.5 mg Q4H PRN IV HR > 110 Last administered on 02/10/17 07:01; Admin Dose 2.5 MG; Start 01/26/17 at 15:00 Midodrine (Proamatine) 5 mg Q8 PRN GTB BLOOD PRESSURE SUPPORT Last administered on 02/19/17 11:57; Admin Dose 5 MG; Start 01/28/17 at 16:30 Enoxaparin Sodium (Lovenox) 60 mg Q24H SC Last administered on 02/14/17 23:30 ; Admin Dose 60 MG; Start 02/03/17 at 00:00; Status Future Hold Nystatin (Nystatin Powder) 1 applic BID TOP Last administered on 02/20/17 09: 51; Admin Dose 1 APPLIC; Start 02/04/17 at 12:00 Metoprolol Tartrate (Lopressor) 25 mg BID PO Last administered on 02/19/17 09: 58; Admin Dose 25 MG; Start 02/10/17 at 21:00; Status Future Hold Eye Lubricant (Artificial Tears Oph) 2 drop Q6H PRN BOTH EYES DRY EYES Last administered on 02/19/17 21:44; Admin Dose 2 DROP; Start 02/13/17 at 15:30 Nystatin (Nystatin Susp) 5 ml QID GTB Last administered on 02/20/17 13:30; Admin Dose 5 ML; Start 02/18/17 at 08:00 Apixaban (Eliquis) 5 mg BID PO Last administered on 02/20/17 09:51; Admin Dose 5 MG; Start 02/18/17 at 21:00 Lansoprazole 30 mg 30 mg BID@06,18 GTB Last administered on 02/20/17 05:49; Admin Dose 30 MG; Start 02/18/17 at 18:00 Ceftriaxone Sodium (Rocephin) 50 ml @ 100 mls/hr Q24H IVPB Last administered on 02/19/17t 16:46; Admin Dose 100 MLS/HR; Start 02/18/17 at 18:00 CLIFF CRUM MD Feb 20, 2017 16:45
[2017-02-20] MEDS: CEFTRIAXONE 1 GM/50 ML (PMX) 50 ML IVPB SCH (17:58)
--- NOTE | 2017-02-20 20:37 | CONS ---
GIRISH SCHMITZ EMERGENCY VETERINARY ASSISTANT 02/20/172036: Date/Time of Note Date/Time of Note DATE: 02/20/17 TIME: 20:33 Assessment/Plan Assessment/Plan Chief Complaint/Hosp Course - UTI due to proteus - diffuse moderate degree of gastritis s/p EGD 02/15/2017 - gastritis due to H. pylori based on pathology 02/15/2017 - bleeding from GT site, and blood clots in tube feed - resolved - recurrent CVA - possible aspiration, improved - encephalopathy due to CVA. CSF from 01/19/2017: WBC=3, RBC=0, glu 53, pro=61, CSF ([place] serology negative, HSV negative, cocci CF negative, encephalitis meningitis panel could not be done due to a lack of sample), serum ([place] PCR negative, crypto antigen negative, cocci CF negative, histo CF negative). my order of crypto in CSF was cancelled and no reason given - bacteremia due to CoNS, probable contaminant. 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 pylori treatment as d/w Dr. Garcia: clarithromycin 500 mg pGT BID and amoxicillin 1 gm pGT BID (Pt already on prevacid BID) - discontinue empiric IV ceftriaxone (02/18/2017-); amoxicillin will cover E. Coli UTI Management d/w patient's family and Dr. Carbajal Problems: Consultation Date/Type/Reason Admit Date/Time Jan 16, 2017 at 15:19 Initial Consult Date 01/17/17 Type of Consultation: Infectious Disease Referring Provider: ALWRENCE PICKERING 24 HR Interval Summary Free Text/Dictation Pt more alert earlier and asked for food and to use the bathroom per d/w Pt's son. Pt currently asleep; non-verbal Exam/Review of Systems Vital Signs Vitals Vital Signs Date Time Temp Pulse Resp B/P Pulse Ox O2 Delivery O2 Flow Rate FiO2 02/20/17 20:29 70 22 96 21 02/20/17 20:20 98.8 96/51 02/19/17 13:36 Room Air Intake and Output 02/19/17 02/19/17 02/20/17 14:59 22:59 06:59 Intake Total 1250 ml 800 ml Output Total 1000 ml 1600 ml Balance 250 ml -800 ml Exam Constitutional: frail, non-verbal, Other (asleep/lethargic) Head: atraumatic, normocephalic Respiratory: diminished breath sounds, No wheezing Cardiovascular: irregular rhythm Gastrointestinal: other (G-tube intact), soft, No tender Genitourinary - Female: other (Lees catheter present) Musculoskeletal: nl extremities to inspection, normal pulses Extremities: No edema, Other (L heel eschar and new dressing is being applied by RN) Neurological: lethargic Skin: nl turgor Results Result Diagram: 02/20/17 0605 02/20/17 0606 Results 24 hrs Laboratory Tests Test 02/20/17 06:05 02/20/17 06:06 White Blood Count 10.1 # Red Blood Count 3.94 L Hemoglobin 10.4 L Hematocrit 32.7 L Mean Corpuscular Volume 83.0 Mean Corpuscular Hemoglobin 26.4 L Mean Corpuscular Hemoglobin Concent 31.8 L Red Cell Distribution Width 17.8 H Platelet Count 341 Mean Platelet Volume 13.3 H Neutrophils % 70.1 Lymphocytes % 16.5 Monocytes % 7.1 Eosinophils % 4.7 Basophils % 0.9 Nucleated Red Blood Cells % 0.0 Neutrophils # (Manual) 7 Lymphocytes # 1.7 Monocytes # 0.7 Eosinophils # 0.5 Basophils # 0.1 Nucleated Red Blood Cells # 0.0 Sodium Level 140 Potassium Level 4.1 Chloride Level 103 Carbon Dioxide Level 26 Anion Gap 15 Blood Urea Nitrogen 21 H Creatinine 0.90 Glucose Level 97 Calcium Level 9.9 Medications Medications Current Medications Miscellaneous Information 1 ea NOTE XX ; Start 01/17/17 at 10:00 Glucose (Glutose) 15 gm Q15M PRN PO DECREASED GLUCOSE; Start 01/17/17 at 10:00 Glucose (Glutose) 22.5 gm Q15M PRN PO DECREASED GLUCOSE; Start 01/17/17 at 10: 00 Dextrose (D50w Syringe) 25 ml Q15M PRN IV DECREASED GLUCOSE; Start 01/17/17 at 10:00 Dextrose (D50w Syringe) 50 ml Q15M PRN IV DECREASED GLUCOSE; Start 01/17/17 at 10:00 Glucagon (Glucagen) 1 mg Q15M PRN IM DECREASED GLUCOSE; Start 01/17/17 at 10:00 Glucose (Glutose) 15 gm Q15M PRN BUCCAL DECREASED GLUCOSE; Start 01/17/17 at 10 :00 Collagenase (Santyl) 1 applic DAILY TOP Last administered on 02/20/17 09:51; Admin Dose 1 APPLIC; Start 01/17/17 at 21:00 IV Flush (NS 10 ml) 10 ml PRN PRN IV IV PROTOCOL Last administered on 21:45; Admin Dose 10 ML; Start 01/22/17 at 12:00 Miscellaneous Information (Pending Santyl Order For Wound Care) This patient dunaway... PRN PRN XX WOUND CARE; Start 01/24/17 at 07:30 Bisacodyl (Dulcolax Supp) 10 mg DAILY PRN [place] CONSTIPATION Last administered on 02/10/17 03:49; Admin Dose 10 MG; Start 01/25/17 at 16:30 Acetaminophen (Tylenol Liquid) 650 mg Q4H PRN NGT PAIN AND OR ELEVATED TEMP Last administered on 02/19/17 09:52; Admin Dose 650 MG; Start 01/26/17 at 09:00 Metoprolol Tartrate (Lopressor) 2.5 mg Q4H PRN IV HR > 110 Last administered on 02/10/17 07:01; Admin Dose 2.5 MG; Start 01/26/17 at 15:00 Midodrine (Proamatine) 5 mg Q8 PRN GTB BLOOD PRESSURE SUPPORT Last administered on 02/19/17 11:57; Admin Dose 5 MG; Start 01/28/17 at 16:30 Enoxaparin Sodium (Lovenox) 60 mg Q24H SC Last administered on 02/14/17 23:30 ; Admin Dose 60 MG; Start 02/03/17 at 00:00; Status Future Hold Nystatin (Nystatin Powder) 1 applic BID TOP Last administered on 02/20/17 20: 24; Admin Dose 1 APPLIC; Start 02/04/17 at 12:00 Metoprolol Tartrate (Lopressor) 25 mg BID PO Last administered on 02/19/17 09: 58; Admin Dose 25 MG; Start 02/10/17 at 21:00; Status Future Hold Eye Lubricant (Artificial Tears Oph) 2 drop Q6H PRN BOTH EYES DRY EYES Last administered on 02/19/17 21:44; Admin Dose 2 DROP; Start 02/13/17 at 15:30 Nystatin (Nystatin Susp) 5 ml QID GTB Last administered on 02/20/17 20:24; Admin Dose 5 ML; Start 02/18/17 at 08:00 Apixaban (Eliquis) 5 mg BID PO Last administered on 02/20/17 20:24; Admin Dose 5 MG; Start 02/18/17 at 21:00 Lansoprazole 30 mg 30 mg BID@06,18 GTB Last administered on 02/20/17 17:58; Admin Dose 30 MG; Start 02/18/17 at 18:00 Ceftriaxone Sodium (Rocephin) 50 ml @ 100 mls/hr Q24H IVPB Last administered on 02/20/17 17:58; Admin Dose 100 MLS/HR; Start 02/18/17 at 18:00 Amoxicillin (Amoxicillin Susp) 1,000 mg BID GTB ; Start 02/20/17 at 21:00; Stop 03/06/17 at 20:59 Clarithromycin (Biaxin) 500 mg BID GTB ; Start 02/20/17 at 21:00 TYE CARBAJAL M.D. 02/21/17 2250: Assessment/Plan Assessment/Plan Additional Assessment/Plan Raven attestation: I discussed the management with LUNA Schmitz and agree with above. Exam/Review of Systems Results Result Diagram: 02/20/17 0605 02/20/1706 GIRISH SCHMITZ NP Feb 20, 2017 20:37 TYE CARBAJAL M.D. Feb 21, 2017 22:50
[2017-02-20] MEDS ORDERED: CLARITHROMYCIN 500 MG TAB GTB SCH ×2 (21:00)
[2017-02-20] MEDS: CLARITHROMYCIN 500 MG TAB GTB SCH (22:16)
[2017-02-20] MEDS: AMOXICILLIN (50 MG/ML PO SYG) GTB SCH (22:16)
[2017-02-21] VITALS (12 sets, daily range): BP systolic 93–120; BP diastolic 50–79; PULSE 87–130; RESP 16–18
[2017-02-21] MEDS: LEVALBUTEROL (NEB) 0.63 MG/3 ML AMP HHN SCH ×4 (02:03→19:48)
[2017-02-21] MEDS: LANSOPRAZOLE 30 MG CAP GTB SCH ×2 (06:23→18:02)
[2017-02-21] MEDS: AMOXICILLIN (50 MG/ML PO SYG) GTB SCH ×2 (09:37→21:55)
[2017-02-21] MEDS: NYSTATIN 30 GM POWDER BTL TOP SCH ×2 (09:37→21:54)
[2017-02-21] MEDS: APIXABAN 5 MG TABLET PO SCH ×2 (09:37→21:54)
[2017-02-21] MEDS: NYSTATIN SUSP 5 ML CUP GTB SCH ×4 (09:37→21:54)
[2017-02-21] MEDS: CLARITHROMYCIN 500 MG TAB GTB SCH ×2 (09:37→21:54)
[2017-02-21] MEDS: COLLAGENASE 30 GM TUBE TOP SCH (09:37)
--- NOTE | 2017-02-21 11:11 | PN ---
Date/Time of Note Date/Time of Note DATE: 02/21/17 TIME: 11:11 Assessment/Plan VTE Prophylaxis VTE Prophylaxis Intervention: other Lines/Catheters IV Catheter Type (from Nrs): PICC Line Central line still needed: Yes Urinary Cath still in place: Yes Reason Cath still needed: skin wounds contaminated by urine Assessment/Plan Chief Complaint/Hosp Course -Systemic inflammatory response syndrome with hypotension and low-grade fever -Urinary tract infection, continue antibiotics per ID. Dr. Abarca is following in an infection disease consultation. - Possible bleeding from G-tube and hematuria, resolved status post EGD was notion of gastritis, continue Protonix. Monitor for signs of bleeding bleeding , monitor H&H. - Bilateral thalamic infarctions. - Dysphagia, status post G-tube placement by Dr. Garcia. - Atrial fibrillation with rapid ventricular response. Dr. Armenta is following and cardiology consultation. Started on Eliquis. - Thrombosis of the bilateral cephalic veins. - Acute kidney injury, resolved. - History of CVA - History of hyperlipidemia Problems: Subjective 24 Hr Interval Summary Free Text/Dictation Patient appears more awake but not reactive to voice or touch Exam/Review of Systems Vital Signs Vitals Vital Signs Date Time Temp Pulse Resp B/P Pulse Ox O2 Delivery O2 Flow Rate FiO2 02/21/17 08:47 120 02/21/17 08:31 98.7 18 108/74 98 02/21/17 08:24 21 02/19/17 13:36 Room Air Intake and Output 02/20/17 02/20/17 02/21/17 15:00 23:00 07:00 Intake Total 800 ml 800 ml Output Total 450 ml 1300 ml Balance 350 ml -500 ml Exam Constitutional: well developed Head: atraumatic, normocephalic Neck: supple Respiratory: diminished breath sounds Cardiovascular: regular rate and rhythm Gastrointestinal: non-tender, soft Extremities: normal pulses Results Result Diagram: 02/20/17 0605 02/20/17 0606 Medications Medications Current Medications Miscellaneous Information 1 ea NOTE XX ; Start 01/17/17 at 10:00 Glucose (Glutose) 15 gm Q15M PRN PO DECREASED GLUCOSE; Start 01/17/17 at 10:00 Glucose (Glutose) 22.5 gm Q15M PRN PO DECREASED GLUCOSE; Start 01/17/17 at 10: 00 Dextrose (D50w Syringe) 25 ml Q15M PRN IV DECREASED GLUCOSE; Start 01/17/17 at 10:00 Dextrose (D50w Syringe) 50 ml Q15M PRN IV DECREASED GLUCOSE; Start 01/17/17 at 10:00 Glucagon (Glucagen) 1 mg Q15M PRN IM DECREASED GLUCOSE; Start 01/17/17 at 10:00 Glucose (Glutose) 15 gm Q15M PRN BUCCAL DECREASED GLUCOSE; Start 01/17/17 at 10 :00 Collagenase (Santyl) 1 applic DAILY TOP Last administered on 02/21/17 09:37; Admin Dose 1 APPLIC; Start 01/17/17 at 21:00 IV Flush (NS 10 ml) 10 ml PRN PRN IV IV PROTOCOL Last administered on 21:45; Admin Dose 10 ML; Start 01/22/17 at 12:00 Miscellaneous Information (Pending Santyl Order For Wound Care) This patient dunaway... PRN PRN XX WOUND CARE; Start 01/24/17 at 07:30 Bisacodyl (Dulcolax Supp) 10 mg DAILY PRN [place] CONSTIPATION Last administered on 02/10/17 03:49; Admin Dose 10 MG; Start 01/25/17 at 16:30 Acetaminophen (Tylenol Liquid) 650 mg Q4H PRN NGT PAIN AND OR ELEVATED TEMP Last administered on 02/19/17 09:52; Admin Dose 650 MG; Start 01/26/17 at 09:00 Metoprolol Tartrate (Lopressor) 2.5 mg Q4H PRN IV HR > 110 Last administered on 02/10/17 07:01; Admin Dose 2.5 MG; Start 01/26/17 at 15:00 Midodrine (Proamatine) 5 mg Q8 PRN GTB BLOOD PRESSURE SUPPORT Last administered on 02/19/17 11:57; Admin Dose 5 MG; Start 01/28/17 at 16:30 Enoxaparin Sodium (Lovenox) 60 mg Q24H SC Last administered on 02/14/17 23:30 ; Admin Dose 60 MG; Start 02/03/17 at 00:00; Status Future Hold Nystatin (Nystatin Powder) 1 applic BID TOP Last administered on 02/21/17 09: 37; Admin Dose 1 APPLIC; Start 02/04/17 at 12:00 Metoprolol Tartrate (Lopressor) 25 mg BID PO Last administered on 02/19/17 09: 58; Admin Dose 25 MG; Start 02/10/17 at 21:00; Status Future Hold Eye Lubricant (Artificial Tears Oph) 2 drop Q6H PRN BOTH EYES DRY EYES Last administered on 02/19/17 21:44; Admin Dose 2 DROP; Start 02/13/17 at 15:30 Nystatin (Nystatin Susp) 5 ml QID GTB Last administered on 02/21/17 09:37; Admin Dose 5 ML; Start 02/18/17 at 08:00 Apixaban (Eliquis) 5 mg BID PO Last administered on 02/21/17 09:37; Admin Dose 5 MG; Start 02/18/17 at 21:00 Lansoprazole (Prevacid) 30 mg BID@,18 GTB Last administered on 02/21/17 06: 23; Admin Dose 30 MG; Start 02/18/17 at 18:00 Amoxicillin (Amoxicillin Susp) 1,000 mg BID GTB Last administered on 02/21/17 09:37; Admin Dose 1,000 MG; Start 02/20/17 at 21:00; Stop 03/06/17 at 20:59 Clarithromycin (Biaxin) 500 mg BID GTB Last administered on 02/21/17 09:37; Admin Dose 500 MG; Start 02/20/17 at 21:00 JOSE LOMAS Feb 21, 2017 11:11
--- NOTE | 2017-02-21 14:35 | CONS ---
Date/Time of Note Date/Time of Note DATE: 02/21/17 TIME: 14:31 Assessment/Plan Assessment/Plan Additional Assessment/Plan 1. AF-mainly rate controlled better now - will hold off on pacer given overall state. STABLE on tele - no intervention planned - RATE CONTROLLED. On Eliquis. 2.Hypotension-now improved on midodrine - stable - BETTER since metoprolol was stopped. 3.Encephalopathy/ams - multifactorial, no change noted. 4.coagulopathy-now decreased with coumadin held - on Eliquis no signs of bleeding now. STABLE. CHADS2 very high - unless significant bleeding full anti- coaguialtion advised by Dr Darnell for a. fib qwith CVA 5. Acute Renal failure-? secondary to vanc - will monitor now - better 6. Cardiomyopathy-EF 45% - euvolemic by exam. NO INDICATION FOR PACER/ICD now. 7. Cephalic vein thrombosis 8. Dysphagia s/p PEG - Rx with meds now Consultation Date/Type/Reason Admit Date/Time Jan 16, 2017 at 15:19 Initial Consult Date 01/26/17 Type of Consultation: Infectious Disease Referring Provider: LAWRENCE PICKERING 24 HR Interval Summary Free Text/Dictation Non communicating Exam/Review of Systems Vital Signs Vitals Vital Signs Date Time Temp Pulse Resp B/P Pulse Ox O2 Delivery O2 Flow Rate FiO2 02/21/17 13:50 87 16 96 21 02/21/17 11:29 98.1 96/64 02/19/17 13:36 Room Air Intake and Output 02/20/17 02/20/17 02/21/17 15:00 23:00 07:00 Intake Total 800 ml 800 ml Output Total 450 ml 1300 ml Balance 350 ml -500 ml Exam General: WN/WD HEENT: Unicetric/atraumatic/ no assymetry NECK: JVD not elevated, no thyromegaly, carotids revealed normal upstrokes Lymph: no lymphadenopathy HEART: irregularly irregular with no S3, I/ systolic murmur at apex LUNGS: clear ABD: soft, NT, ND, +BS, no organomegaly Neuro: no deficit SKIN: no leisons EXT: no edema Results Result Diagram: 02/20/17 0605 02/20/17 0606 Medications Medications Current Medications Miscellaneous Information 1 ea NOTE XX ; Start 01/17/17 at 10:00 Glucose (Glutose) 15 gm Q15M PRN PO DECREASED GLUCOSE; Start 01/17/17 at 10:00 Glucose (Glutose) 22.5 gm Q15M PRN PO DECREASED GLUCOSE; Start 01/17/17 at 10: 00 Dextrose (D50w Syringe) 25 ml Q15M PRN IV DECREASED GLUCOSE; Start 01/17/17 at 10:00 Dextrose (D50w Syringe) 50 ml Q15M PRN IV DECREASED GLUCOSE; Start 01/17/17 at 10:00 Glucagon (Glucagen) 1 mg Q15M PRN IM DECREASED GLUCOSE; Start 01/17/17 at 10:00 Glucose (Glutose) 15 gm Q15M PRN BUCCAL DECREASED GLUCOSE; Start 01/17/17 at 10 :00 Collagenase (Santyl) 1 applic DAILY TOP Last administered on 02/21/17 09:37; Admin Dose 1 APPLIC; Start 01/17/17 at 21:00 IV Flush (NS 10 ml) 10 ml PRN PRN IV IV PROTOCOL Last administered on 21:45; Admin Dose 10 ML; Start 01/22/17 at 12:00 Miscellaneous Information (Pending Santyl Order For Wound Care) This patient dunaway... PRN PRN XX WOUND CARE; Start 01/24/17 at 07:30 Bisacodyl (Dulcolax Supp) 10 mg DAILY PRN [place] CONSTIPATION Last administered on 02/10/17 03:49; Admin Dose 10 MG; Start 01/25/17 at 16:30 Acetaminophen (Tylenol Liquid) 650 mg Q4H PRN NGT PAIN AND OR ELEVATED TEMP Last administered on 02/19/17 09:52; Admin Dose 650 MG; Start 01/26/17 at 09:00 Metoprolol Tartrate (Lopressor) 2.5 mg Q4H PRN IV HR > 110 Last administered on 02/10/17 07:01; Admin Dose 2.5 MG; Start 01/26/17 at 15:00 Midodrine (Proamatine) 5 mg Q8 PRN GTB BLOOD PRESSURE SUPPORT Last administered on 02/19/17 11:57; Admin Dose 5 MG; Start 01/28/17 at 16:30 Enoxaparin Sodium (Lovenox) 60 mg Q24H SC Last administered on 02/14/17 23:30 ; Admin Dose 60 MG; Start 02/03/17 at 00:00; Status Future Hold Nystatin (Nystatin Powder) 1 applic BID TOP Last administered on 02/21/17 09: 37; Admin Dose 1 APPLIC; Start 02/04/17 at 12:00 Metoprolol Tartrate (Lopressor) 25 mg BID PO Last administered on 02/19/17 09: 58; Admin Dose 25 MG; Start 02/10/17 at 21:00; Status Future Hold Eye Lubricant (Artificial Tears Oph) 2 drop Q6H PRN BOTH EYES DRY EYES Last administered on 02/19/17 21:44; Admin Dose 2 DROP; Start 02/13/17 at 15:30 Nystatin (Nystatin Susp) 5 ml QID GTB Last administered on 02/21/17 09:37; Admin Dose 5 ML; Start 02/18/17 at 08:00 Apixaban (Eliquis) 5 mg BID PO Last administered on 02/21/17 09:37; Admin Dose 5 MG; Start 02/18/17 at 21:00 Lansoprazole (Prevacid) 30 mg BID@,18 GTB Last administered on 02/21/17 06: 23; Admin Dose 30 MG; Start 02/18/17 at 18:00 Amoxicillin (Amoxicillin Susp) 1,000 mg BID GTB Last administered on 02/21/17 09:37; Admin Dose 1,000 MG; Start 02/20/17 at 21:00; Stop 03/06/17 at 20:59 Clarithromycin (Biaxin) 500 mg BID GTB Last administered on 02/21/17 09:37; Admin Dose 500 MG; Start 02/20/17 at 21:00 CLIFF CRUM MD Feb 21, 2017 14:35
--- NOTE | 2017-02-21 23:33 | CONS ---
Date/Time of Note Date/Time of Note DATE: 02/21/17 TIME: 23:30 Assessment/Plan Assessment/Plan Chief Complaint/Hosp Course Assessment/impression: - UTI due to proteus - diffuse moderate degree of gastritis s/p EGD 02/15/2017 - gastritis due to H. pylori based on pathology 02/15/2017, on clarithromycin based regimen (02/20/2017-) - bleeding from GT site, and blood clots in tube feed - resolved - recurrent CVA - possible aspiration, improved - encephalopathy due to CVA. CSF from 01/19/2017: WBC=3, RBC=0, glu 53, pro=61, CSF ([place] serology negative, HSV negative, cocci CF negative, encephalitis meningitis panel could not be done due to a lack of sample), serum ([place] PCR negative, crypto antigen negative, cocci CF negative, histo CF negative). my order of crypto in CSF was cancelled and no reason given - bacteremia due to CoNS, probable contaminant. 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 pylori (02/20/2017-), clarithro, metronidazole and prevacid - amoxicillin covers proteus in her urine too. Pt took IV ceftriaxone previously (02/18/2017-02/19/2017) Problems: Consultation Date/Type/Reason Admit Date/Time Jan 16, 2017 at 15:19 Initial Consult Date 01/17/17 Type of Consultation: Infectious Disease Referring Provider: LAWRENCE PICKERING 24 HR Interval Summary Subjective hx not possible: pt non-verbal Exam/Review of Systems Vital Signs Vitals Vital Signs Date Time Temp Pulse Resp B/P Pulse Ox O2 Delivery O2 Flow Rate FiO2 02/21/17 20:30 98 02/21/17 20:15 98.2 18 120/54 100 02/21/17 19:48 21 02/19/17 13:36 Room Air Intake and Output 02/20/17 02/20/17 02/21/17 15:00 23:00 07:00 Intake Total 800 ml 800 ml Output Total 450 ml 1300 ml Balance 350 ml -500 ml Exam Constitutional: frail, non-verbal Psych: confusion Head: atraumatic, normocephalic Eyes: other (R eye is open, L eye has ptosis) ENMT: nl external ears & nose, nl lips & teeth Respiratory: clear to auscultation, normal air movement Cardiovascular: nl pulses, regular rate and rhythm Gastrointestinal: non-tender, other (GT+), soft, No distended Genitourinary - Female: other (FC) Musculoskeletal: nl extremities to inspection Extremities: No edema Neurological: confused, lethargic Skin: nl turgor Results Result Diagram: 02/20/1760402/20/17 06 Medications Medications Current Medications Miscellaneous Information 1 ea NOTE XX ; Start 01/17/17 at 10:00 Glucose (Glutose) 15 gm Q15M PRN PO DECREASED GLUCOSE; Start 01/17/17 at 10:00 Glucose (Glutose) 22.5 gm Q15M PRN PO DECREASED GLUCOSE; Start 01/17/17 at 10: 00 Dextrose (D50w Syringe) 25 ml Q15M PRN IV DECREASED GLUCOSE; Start 01/17/17 at 10:00 Dextrose (D50w Syringe) 50 ml Q15M PRN IV DECREASED GLUCOSE; Start 01/17/17 at 10:00 Glucagon (Glucagen) 1 mg Q15M PRN IM DECREASED GLUCOSE; Start 01/17/17 at 10:00 Glucose (Glutose) 15 gm Q15M PRN BUCCAL DECREASED GLUCOSE; Start 01/17/17 at 10 :00 Collagenase (Santyl) 1 applic DAILY TOP Last administered on 02/21/17t 09:37; Admin Dose 1 APPLIC; Start 01/17/17 at 21:00 IV Flush (NS 10 ml) 10 ml PRN PRN IV IV PROTOCOL Last administered on t 21:45; Admin Dose 10 ML; Start 01/22/17 at 12:00 Miscellaneous Information (Pending Santyl Order For Wound Care) This patient dunaway... PRN PRN XX WOUND CARE; Start 01/24/17 at 07:30 Bisacodyl (Dulcolax Supp) 10 mg DAILY PRN [place] CONSTIPATION Last administered on 02/10/17 03:49; Admin Dose 10 MG; Start 01/25/17 at 16:30 Acetaminophen (Tylenol Liquid) 650 mg Q4H PRN NGT PAIN AND OR ELEVATED TEMP Last administered on 02/19/17 09:52; Admin Dose 650 MG; Start 01/26/17 at 09:00 Metoprolol Tartrate (Lopressor) 2.5 mg Q4H PRN IV HR > 110 Last administered on 02/10/17 07:01; Admin Dose 2.5 MG; Start 01/26/17 at 15:00 Midodrine (Proamatine) 5 mg Q8 PRN GTB BLOOD PRESSURE SUPPORT Last administered on 02/19/17 11:57; Admin Dose 5 MG; Start 01/28/17 at 16:30 Enoxaparin Sodium (Lovenox) 60 mg Q24H SC Last administered on 02/14/17 23:30 ; Admin Dose 60 MG; Start 02/03/17 at 00:00; Status Future Hold Nystatin (Nystatin Powder) 1 applic BID TOP Last administered on 02/21/17 21: 54; Admin Dose 1 APPLIC; Start 02/04/17 at 12:00 Metoprolol Tartrate (Lopressor) 25 mg BID PO Last administered on 02/19/17 09: 58; Admin Dose 25 MG; Start 02/10/17 at 21:00; Status Future Hold Eye Lubricant (Artificial Tears Oph) 2 drop Q6H PRN BOTH EYES DRY EYES Last administered on 02/19/17 21:44; Admin Dose 2 DROP; Start 02/13/17 at 15:30 Nystatin (Nystatin Susp) 5 ml QID GTB Last administered on 02/21/17 21:54; Admin Dose 5 ML; Start 02/18/17 at 08:00 Apixaban (Eliquis) 5 mg BID PO Last administered on 02/21/17 21:54; Admin Dose 5 MG; Start 02/18/17 at 21:00 Lansoprazole (Prevacid) 30 mg BID@,18 GTB Last administered on 02/21/17 18: 02; Admin Dose 30 MG; Start 02/18/17 at 18:00 Amoxicillin (Amoxicillin Susp) 1,000 mg BID GTB Last administered on 02/21/17 21:55; Admin Dose 1,000 MG; Start 02/20/17 at 21:00; Stop 03/06/17 at 20:59 Clarithromycin (Biaxin) 500 mg BID GTB Last administered on 02/21/17 21:54; Admin Dose 500 MG; Start 02/20/17 at 21:00 TYE STYLES M.D. Feb 21, 2017 23:33
[2017-02-22] VITALS (12 sets, daily range): BP systolic 92–113; BP diastolic 51–65; PULSE 67–122; RESP 17–19
[2017-02-22] MEDS: LEVALBUTEROL (NEB) 0.63 MG/3 ML AMP HHN SCH ×4 (01:07→19:34)
[2017-02-22 06:41] LABS: ABNORMAL IP MESSAGE 1; BASOPHIL # 0.1 10^3/ul (0.0-0.1); BASOPHILS % 1.1 % (0.0-2.0); EOSINOPHILS # 0.5 10^3/ul (0.0-0.5); EOSINOPHILS % 4.7 % (0.0-7.0); HEMATOCRIT 32.5 % (37.0-47.0); HEMOGLOBIN 10.3 g/dl (12.0-16.0); LYMPHOCYTES # 1.5 10^3/ul (0.8-2.9); LYMPHOCYTES % 15.7 % (15.0-51.0); MEAN CORPUSCULAR HEMOGLOBIN 26.4 pg (29.0-33.0); MEAN CORPUSCULAR HGB CONC 31.7 g/dl (32.0-37.0); MEAN CORPUSCULAR VOLUME 83.3 fl (82.0-101.0); MEAN PLATELET VOLUME 13.1 fl (7.4-10.4); MONOCYTE # 0.6 10^3/ul (0.3-0.9); MONOCYTES % 5.8 % (0.0-11.0); NEUTROPHILS % 71.9 % (39.0-77.0); PLATELET COUNT 377 10^3/UL (140-415); RED CELL DISTRIBUTION WIDTH 17.6 % (11.5-14.5); WHITE BLOOD COUNT 9.8 10^3/ul (4.8-10.8)
[2017-02-22 06:50] LABS: POSITIVE DIFF @See below
[2017-02-22] MEDS: LANSOPRAZOLE 30 MG CAP GTB SCH ×2 (07:02→18:29)
[2017-02-22 07:07] LABS: CALCIUM 9.7 mg/dl (8.4-10.2); CREATININE 0.88 mg/dl (0.44-1.00); POTASSIUM 3.8 mmol/L (3.5-5.1)
[2017-02-22] MEDS: AMOXICILLIN (50 MG/ML PO SYG) GTB SCH ×2 (09:06→21:57)
[2017-02-22] MEDS: APIXABAN 5 MG TABLET PO SCH (09:06)
[2017-02-22] MEDS: NYSTATIN SUSP 5 ML CUP GTB SCH ×4 (09:07→21:57)
[2017-02-22] MEDS: CLARITHROMYCIN 500 MG TAB GTB SCH ×2 (09:07→21:56)
[2017-02-22] MEDS: COLLAGENASE 30 GM TUBE TOP SCH (09:15)
[2017-02-22] MEDS: NYSTATIN 30 GM POWDER BTL TOP SCH ×2 (09:15→21:58)
--- NOTE | 2017-02-22 11:17 | CONS ---
Date/Time of Note Date/Time of Note DATE: 02/22/17 TIME: 11:13 Assessment/Plan Assessment/Plan Chief Complaint/Hosp Course IMP: 1. AF-mainly rate controlled/Trop negative x 3. Had pause x 3.7 seconds 01/30 on standing IVP BB. No recurrence since decrease in IVP BB. Some mld tachycardia 2.Hypotension-on midodrine 3.encephalopathy/ams 4.coagulopathy-now on eliquis 5. Acute Renal failure-? secondary to vanc 6.Leukocytosis 7. Cardiomyopathy-EF 45% 8. Cephalic vein thrombosis 9. Dysphagia s/p PEG Recc: -Tele -serial ecg's -Cont. Eliquis -Resume low dose BB as tolerated -Continue abx's -Follow MS closely which has had some mild improvement -Continue midodrine for low BP -Possible need for PPM will follow/stable at this time-no definite indication Problems: Consultation Date/Type/Reason Admit Date/Time Jan 16, 2017 at 15:19 Initial Consult Date 01/17/17 Type of Consultation: cardioloogy Reason for Consultation atrial fibrillation Referring Provider: LAWRENCE PICKERING Exam/Review of Systems Vital Signs Vitals Vital Signs Date Time Temp Pulse Resp B/P Pulse Ox O2 Delivery O2 Flow Rate FiO2 02/22/17 09:07 114 02/22/17 07:48 20 97 21 02/22/17 07:24 98.6 98/64 02/19/17 13:36 Room Air Intake and Output 02/21/17 02/21/17 02/22/17 15:00 23:00 07:00 Intake Total 800 ml 1000 ml Output Total 400 ml 750 ml Balance 400 ml 250 ml Exam Review of Systems: CONSTITUTIONAL: No fevers, chills. PULMONARY: No sob CARDIOVASCULAR: No chest pain/palpitations GASTROINTESTINAL: No nausea/vomiting. GENITOURINARY: No hematuria/dysuria. MUSCULOSKELETAL: No myagias/arthalgias. PSYCHIATRIC: The patient denies depression. NEUROLOGIC: encephalopathic Constitutional: other (opens eyes) Psych: no complaints Head: normocephalic ENMT: mucosa pink and moist Neck: supple Respiratory: diminished breath sounds Cardiovascular: regular rate and rhythm Gastrointestinal: non-tender, soft Musculoskeletal: muscle tone Extremities: edema Neurological: other (No focal deficits) Results Result Diagram: 02/22/17 0553 02/22/17 0553 Results 24 hrs Laboratory Tests Test 02/22/17 05:53 White Blood Count 9.8 Red Blood Count 3.90 L Hemoglobin 10.3 L Hematocrit 32.5 L Mean Corpuscular Volume 83.3 Mean Corpuscular Hemoglobin 26.4 L Mean Corpuscular Hemoglobin Concent 31.7 L Red Cell Distribution Width 17.6 H Platelet Count 377 Mean Platelet Volume 13.1 H Neutrophils % 71.9 Lymphocytes % 15.7 Monocytes % 5.8 Eosinophils % 4.7 Basophils % 1.1 Nucleated Red Blood Cells % 0.0 Neutrophils # (Manual) 7 Lymphocytes # 1.5 Monocytes # 0.6 Eosinophils # 0.5 Basophils # 0.1 Nucleated Red Blood Cells # 0.0 Sodium Level 140 Potassium Level 3.8 Chloride Level 103 Carbon Dioxide Level 25 Anion Gap 16 Blood Urea Nitrogen 25 H Creatinine 0.88 Glucose Level 116 Calcium Level 9.7 Medications Medications Current Medications Miscellaneous Information 1 ea NOTE XX ; Start 01/17/17 at 10:00 Glucose (Glutose) 15 gm Q15M PRN PO DECREASED GLUCOSE; Start 01/17/17 at 10:00 Glucose (Glutose) 22.5 gm Q15M PRN PO DECREASED GLUCOSE; Start 01/17/17 at 10: 00 Dextrose (D50w Syringe) 25 ml Q15M PRN IV DECREASED GLUCOSE; Start 01/17/17 at 10:00 Dextrose (D50w Syringe) 50 ml Q15M PRN IV DECREASED GLUCOSE; Start 01/17/17 at 10:00 Glucagon (Glucagen) 1 mg Q15M PRN IM DECREASED GLUCOSE; Start 01/17/17 at 10:00 Glucose (Glutose) 15 gm Q15M PRN BUCCAL DECREASED GLUCOSE; Start 01/17/17 at 10 :00 Collagenase (Santyl) 1 applic DAILY TOP Last administered on 02/22/17 09:15; Admin Dose 1 APPLIC; Start 01/17/17 at 21:00 IV Flush (NS 10 ml) 10 ml PRN PRN IV IV PROTOCOL Last administered on 21:45; Admin Dose 10 ML; Start 01/22/17 at 12:00 Miscellaneous Information (Pending Santyl Order For Wound Care) This patient dunaway... PRN PRN XX WOUND CARE; Start 01/24/17 at 07:30 Bisacodyl (Dulcolax Supp) 10 mg DAILY PRN [place] CONSTIPATION Last administered on 02/10/17 03:49; Admin Dose 10 MG; Start 01/25/17 at 16:30 Acetaminophen (Tylenol Liquid) 650 mg Q4H PRN NGT PAIN AND OR ELEVATED TEMP Last administered on 02/19/17 09:52; Admin Dose 650 MG; Start 01/26/17 at 09:00 Metoprolol Tartrate (Lopressor) 2.5 mg Q4H PRN IV HR > 110 Last administered on 02/10/17 07:01; Admin Dose 2.5 MG; Start 01/26/17 at 15:00 Midodrine (Proamatine) 5 mg Q8 PRN GTB BLOOD PRESSURE SUPPORT Last administered on 02/19/17 11:57; Admin Dose 5 MG; Start 01/28/17 at 16:30 Enoxaparin Sodium (Lovenox) 60 mg Q24H SC Last administered on 02/14/17 23:30 ; Admin Dose 60 MG; Start 02/03/17 at 00:00; Status Future Hold Nystatin (Nystatin Powder) 1 applic BID TOP Last administered on 02/22/17 09: 15; Admin Dose 1 APPLIC; Start 02/04/17 at 12:00 Metoprolol Tartrate (Lopressor) 25 mg BID PO Last administered on 02/19/17 09: 58; Admin Dose 25 MG; Start 02/10/17 at 21:00; Status Future Hold Eye Lubricant (Artificial Tears Oph) 2 drop Q6H PRN BOTH EYES DRY EYES Last administered on 02/19/17 21:44; Admin Dose 2 DROP; Start 02/13/17 at 15:30 Nystatin (Nystatin Susp) 5 ml QID GTB Last administered on 02/22/17 09:07; Admin Dose 5 ML; Start 02/18/17 at 08:00 Apixaban (Eliquis) 5 mg BID PO Last administered on 02/22/17 09:06; Admin Dose 5 MG; Start 02/18/17 at 21:00 Lansoprazole (Prevacid) 30 mg BID@ GTB Last administered on 02/22/17 07: 02; Admin Dose 30 MG; Start 02/18/17 at 18:00 Amoxicillin (Amoxicillin Susp) 1,000 mg BID GTB Last administered on 02/22/17 09:06; Admin Dose 1,000 MG; Start 02/20/17 at 21:00; Stop 03/06/17 at 20:59 Clarithromycin (Biaxin) 500 mg BID GTB Last administered on 02/22/17 09:07; Admin Dose 500 MG; Start 02/20/17 at 21:00 MINOO REY Feb 22, 2017 11:17
--- NOTE | 2017-02-22 13:55 | PN ---
Date/Time of Note Date/Time of Note DATE: 02/22/17 TIME: 13:48 Assessment/Plan VTE Prophylaxis VTE Prophylaxis Intervention: SCD's Lines/Catheters IV C[facility] Type (from [facility]): PICC Line Central line still needed: Yes Urinary Cath still in place: Yes Reason Cath still needed: urinary retention Assessment/Plan Chief Complaint/Hosp Course Patient remains afebrile, atrial fibrillation atrial flutter with rate going above 100 at times, no change in neurological status. Patient is restarted on metoprolol. Assessment/Plan -Urinary tract infection, continue antibiotics per ID. Dr. Abarca is following in an infection disease consultation. -Gastritis due to H. pylori, continue triple therapy per H. pylori eradication - Possible bleeding from G-tube and hematuria, resolved status post EGD was notion of gastritis, continue Protonix. - Bilateral thalamic infarctions. - Dysphagia, status post G-tube placement by Dr. Garcia. - Atrial fibrillation with rapid ventricular response. Dr. Armenta is following and cardiology consultation. Continue Eliquis. - Thrombosis of the bilateral cephalic veins. - Acute kidney injury, resolved. - History of CVA - History of hyperlipidemia Further recommendations based on clinical course. Plan of care discussed with Dr. Valdovinos. Problems: Exam/Review of Systems Vital Signs Vitals Vital Signs Date Time Temp Pulse Resp B/P Pulse Ox O2 Delivery O2 Flow Rate FiO2 02/22/17 13:36 113 18 97 21 02/22/17 11:45 98.9 92/51 02/19/17 13:36 Room Air Intake and Output 02/21/17 02/21/17 02/22/17 15:00 23:00 07:00 Intake Total 800 ml 1000 ml Output Total 400 ml 750 ml Balance 400 ml 250 ml Exam Psych: confusion Neck: supple Respiratory: normal air movement Cardiovascular: irregular rhythm Gastrointestinal: other (G-tube), soft Extremities: normal pulses Neurological: focal weakness Results Result Diagram: 02/22/17 0553 02/22/17 0553 Results 24 hrs Laboratory Tests Test 02/22/17 05:53 White Blood Count 9.8 Red Blood Count 3.90 L Hemoglobin 10.3 L Hematocrit 32.5 L Mean Corpuscular Volume 83.3 Mean Corpuscular Hemoglobin 26.4 L Mean Corpuscular Hemoglobin Concent 31.7 L Red Cell Distribution Width 17.6 H Platelet Count 377 Mean Platelet Volume 13.1 H Neutrophils % 71.9 Lymphocytes % 15.7 Monocytes % 5.8 Eosinophils % 4.7 Basophils % 1.1 Nucleated Red Blood Cells % 0.0 Neutrophils # (Manual) 7 Lymphocytes # 1.5 Monocytes # 0.6 Eosinophils # 0.5 Basophils # 0.1 Nucleated Red Blood Cells # 0.0 Sodium Level 140 Potassium Level 3.8 Chloride Level 103 Carbon Dioxide Level 25 Anion Gap 16 Blood Urea Nitrogen 25 H Creatinine 0.88 Glucose Level 116 Calcium Level 9.7 Medications Medications Current Medications Miscellaneous Information 1 ea NOTE XX ; Start 01/17/17 at 10:00 Glucose (Glutose) 15 gm Q15M PRN PO DECREASED GLUCOSE; Start 01/17/17 at 10:00 Glucose (Glutose) 22.5 gm Q15M PRN PO DECREASED GLUCOSE; Start 01/17/17 at 10: 00 Dextrose (D50w Syringe) 25 ml Q15M PRN IV DECREASED GLUCOSE; Start 01/17/17 at 10:00 Dextrose (D50w Syringe) 50 ml Q15M PRN IV DECREASED GLUCOSE; Start 01/17/17 at 10:00 Glucagon (Glucagen) 1 mg Q15M PRN IM DECREASED GLUCOSE; Start 01/17/17 at 10:00 Glucose (Glutose) 15 gm Q15M PRN BUCCAL DECREASED GLUCOSE; Start 01/17/17 at 10 :00 Collagenase (Santyl) 1 applic DAILY TOP Last administered on 02/22/17 09:15; Admin Dose 1 APPLIC; Start 01/17/17 at 21:00 IV Flush (NS 10 ml) 10 ml PRN PRN IV IV PROTOCOL Last administered on 21:45; Admin Dose 10 ML; Start 01/22/17 at 12:00 Miscellaneous Information (Pending Santyl Order For Wound Care) This patient dunaway... PRN PRN XX WOUND CARE; Start 01/24/17 at 07:30 Bisacodyl (Dulcolax Supp) 10 mg DAILY PRN [place] CONSTIPATION Last administered on 02/10/17 03:49; Admin Dose 10 MG; Start 01/25/17 at 16:30 Acetaminophen (Tylenol Liquid) 650 mg Q4H PRN NGT PAIN AND OR ELEVATED TEMP Last administered on 02/19/17 09:52; Admin Dose 650 MG; Start 01/26/17 at 09:00 Metoprolol Tartrate (Lopressor) 2.5 mg Q4H PRN IV HR > 110 Last administered on 02/10/17 07:01; Admin Dose 2.5 MG; Start 01/26/17 at 15:00 Midodrine (Proamatine) 5 mg Q8 PRN GTB BLOOD PRESSURE SUPPORT Last administered on 02/19/17 11:57; Admin Dose 5 MG; Start 01/28/17 at 16:30 Enoxaparin Sodium (Lovenox) 60 mg Q24H SC Last administered on 02/14/17 23:30 ; Admin Dose 60 MG; Start 02/03/17 at 00:00; Status Future Hold Nystatin (Nystatin Powder) 1 applic BID TOP Last administered on 02/22/17 09: 15; Admin Dose 1 APPLIC; Start 02/04/17 at 12:00 Metoprolol Tartrate (Lopressor) 25 mg BID PO Last administered on 02/19/17 09: 58; Admin Dose 25 MG; Start 02/10/17 at 21:00; Status Future Hold Eye Lubricant (Artificial Tears Oph) 2 drop Q6H PRN BOTH EYES DRY EYES Last administered on 02/19/17 21:44; Admin Dose 2 DROP; Start 02/13/17 at 15:30 Nystatin (Nystatin Susp) 5 ml QID GTB Last administered on 02/22/17 13:42; Admin Dose 5 ML; Start 02/18/17 at 08:00 Apixaban (Eliquis) 5 mg BID PO Last administered on 02/22/17 09:06; Admin Dose 5 MG; Start 02/18/17 at 21:00 Lansoprazole (Prevacid) 30 mg BID@,18 GTB Last administered on 02/22/17 07: 02; Admin Dose 30 MG; Start 02/18/17 at 18:00 Amoxicillin (Amoxicillin Susp) 1,000 mg BID GTB Last administered on 02/22/17 09:06; Admin Dose 1,000 MG; Start 02/20/17 at 21:00; Stop 03/06/17 at 20:59 Clarithromycin (Biaxin) 500 mg BID GTB Last administered on 02/22/17 09:07; Admin Dose 500 MG; Start 02/20/17 at 21:00 Metoprolol Tartrate (Lopressor) 12.5 mg BID PO ; Start 02/22/17 at 21:00 LAWRENCE PICKERING Feb 22, 2017 13:55
--- NOTE | 2017-02-22 20:16 | CONS ---
GIRISH SCHMITZ NP 02/22/17 2016: Date/Time of Note Date/Time of Note DATE: 02/22/17 TIME: 20:16 Assessment/Plan Assessment/Plan Chief Complaint/Hosp Course Assessment/impression: - UTI due to proteus - diffuse moderate degree of gastritis s/p EGD 02/15/2017 - gastritis due to H. pylori based on pathology 02/15/2017, on clarithromycin based regimen (02/20/2017-) - bleeding from GT site, and blood clots in tube feed - resolved - recurrent CVA - possible aspiration, improved - encephalopathy due to CVA. CSF from 01/19/2017: WBC=3, RBC=0, glu 53, pro=61, CSF ([place] serology negative, HSV negative, cocci CF negative, encephalitis meningitis panel could not be done due to a lack of sample), serum ([place] PCR negative, crypto antigen negative, cocci CF negative, histo CF negative). my order of crypto in CSF was cancelled and no reason given - bacteremia due to CoNS, probable contaminant. 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 pylori (02/20/2017-), clarithro, metronidazole and prevacid - amoxicillin covers proteus in her urine too. Pt took IV ceftriaxone previously (02/18/2017-02/19/2017) Management d/w patient's youngest son and Dr. Carbajal Problems: Consultation Date/Type/Reason Admit Date/Time Jan 16, 2017 at 15:19 Initial Consult Date 01/17/17 Type of Consultation: Infectious Disease Referring Provider: LAWRENCE PICKERING 24 HR Interval Summary Free Text/Dictation No acute issues. Nods no to pain. Subjective hx not possible: pt non-verbal Exam/Review of Systems Vital Signs Vitals Vital Signs Date Time Temp Pulse Resp B/P Pulse Ox O2 Delivery O2 Flow Rate FiO2 02/22/17 19:43 98.4 112 18 113/65 99 02/22/17 19:34 21 02/19/17 13:36 Room Air Intake and Output 02/21/17 02/21/17 02/22/17 15:00 23:00 07:00 Intake Total 800 ml 1000 ml Output Total 400 ml 750 ml Balance 400 ml 250 ml Exam Constitutional: frail, non-verbal, Other (lethargic, nods to simple questions) Head: atraumatic, normocephalic Respiratory: diminished breath sounds, No wheezing Cardiovascular: irregular rhythm Gastrointestinal: other (G-tube intact), soft, No tender Genitourinary - Female: other (Lees catheter present) Musculoskeletal: nl extremities to inspection, normal pulses Extremities: No edema, Other (L heel eschar and new dressing is being applied by RN) Neurological: lethargic Skin: nl turgor Results Result Diagram: 02/22/17 0553 02/22/17 0553 Results 24 hrs Laboratory Tests Test 02/22/17 05:53 White Blood Count 9.8 Red Blood Count 3.90 L Hemoglobin 10.3 L Hematocrit 32.5 L Mean Corpuscular Volume 83.3 Mean Corpuscular Hemoglobin 26.4 L Mean Corpuscular Hemoglobin Concent 31.7 L Red Cell Distribution Width 17.6 H Platelet Count 377 Mean Platelet Volume 13.1 H Neutrophils % 71.9 Lymphocytes % 15.7 Monocytes % 5.8 Eosinophils % 4.7 Basophils % 1.1 Nucleated Red Blood Cells % 0.0 Neutrophils # (Manual) 7 Lymphocytes # 1.5 Monocytes # 0.6 Eosinophils # 0.5 Basophils # 0.1 Nucleated Red Blood Cells # 0.0 Sodium Level 140 Potassium Level 3.8 Chloride Level 103 Carbon Dioxide Level 25 Anion Gap 16 Blood Urea Nitrogen 25 H Creatinine 0.88 Glucose Level 116 Calcium Level 9.7 Medications Medications Current Medications Miscellaneous Information 1 ea NOTE XX ; Start 01/17/17 at 10:00 Glucose (Glutose) 15 gm Q15M PRN PO DECREASED GLUCOSE; Start 01/17/17 at 10:00 Glucose (Glutose) 22.5 gm Q15M PRN PO DECREASED GLUCOSE; Start 01/17/17 at 10: 00 Dextrose (D50w Syringe) 25 ml Q15M PRN IV DECREASED GLUCOSE; Start 01/17/17 at 10:00 Dextrose (D50w Syringe) 50 ml Q15M PRN IV DECREASED GLUCOSE; Start 01/17/17 at 10:00 Glucagon (Glucagen) 1 mg Q15M PRN IM DECREASED GLUCOSE; Start 01/17/17 at 10:00 Glucose (Glutose) 15 gm Q15M PRN BUCCAL DECREASED GLUCOSE; Start 01/17/17 at 10 :00 Collagenase (Santyl) 1 applic DAILY TOP Last administered on 02/22/17 09:15; Admin Dose 1 APPLIC; Start 01/17/17 at 21:00 IV Flush (NS 10 ml) 10 ml PRN PRN IV IV PROTOCOL Last administered on 21:45; Admin Dose 10 ML; Start 01/22/17 at 12:00 Miscellaneous Information (Pending Santyl Order For Wound Care) This patient dunaway... PRN PRN XX WOUND CARE; Start 01/24/17 at 07:30 Bisacodyl (Dulcolax Supp) 10 mg DAILY PRN [place] CONSTIPATION Last administered on 02/10/17 03:49; Admin Dose 10 MG; Start 01/25/17 at 16:30 Acetaminophen (Tylenol Liquid) 650 mg Q4H PRN NGT PAIN AND OR ELEVATED TEMP Last administered on 02/19/17 09:52; Admin Dose 650 MG; Start 01/26/17 at 09:00 Metoprolol Tartrate (Lopressor) 2.5 mg Q4H PRN IV HR > 110 Last administered on 02/10/17 07:01; Admin Dose 2.5 MG; Start 01/26/17 at 15:00 Midodrine (Proamatine) 5 mg Q8 PRN GTB BLOOD PRESSURE SUPPORT Last administered on 02/19/17 11:57; Admin Dose 5 MG; Start 01/28/17 at 16:30 Enoxaparin Sodium (Lovenox) 60 mg Q24H SC Last administered on 02/14/17 23:30 ; Admin Dose 60 MG; Start 02/03/17 at 00:00; Status Future Hold Nystatin (Nystatin Powder) 1 applic BID TOP Last administered on 02/22/17 09: 15; Admin Dose 1 APPLIC; Start 02/04/17 at 12:00 Metoprolol Tartrate (Lopressor) 25 mg BID PO Last administered on 02/19/17 09: 58; Admin Dose 25 MG; Start 02/10/17 at 21:00; Status Future Hold Eye Lubricant (Artificial Tears Oph) 2 drop Q6H PRN BOTH EYES DRY EYES Last administered on 02/19/17 21:44; Admin Dose 2 DROP; Start 02/13/17 at 15:30 Nystatin (Nystatin Susp) 5 ml QID GTB Last administered on 02/22/17 18:29; Admin Dose 5 ML; Start 02/18/17 at 08:00 Apixaban (Eliquis) 5 mg BID PO Last administered on 02/22/17 09:06; Admin Dose 5 MG; Start 02/18/17 at 21:00 Lansoprazole (Prevacid) 30 mg BID@18 GTB Last administered on 02/22/17 18: 29; Admin Dose 30 MG; Start 02/18/17 at 18:00 Amoxicillin (Amoxicillin Susp) 1,000 mg BID GTB Last administered on 02/22/17 09:06; Admin Dose 1,000 MG; Start 02/20/17 at 21:00; Stop 03/06/17 at 20:59 Clarithromycin (Biaxin) 500 mg BID GTB Last administered on 02/22/17 09:07; Admin Dose 500 MG; Start 02/20/17 at 21:00 Metoprolol Tartrate (Lopressor) 12.5 mg BID PO ; Start 02/22/17 at 21:00 TYE CARBAJAL M.D. 02/23/17 1634: Assessment/Plan Assessment/Plan Additional Assessment/Plan [place] attestation: I discussed the management with LUNA Schmitz and agree with above Exam/Review of Systems Results Result Diagram: 02/22/17 0553 02/22/17 0553 GIRISH SCHMITZ NP Feb 22, 2017 20:16 TYE CARBAJAL M.D. Feb 23, 2017 16:34
[2017-02-22] MEDS ORDERED: METOPROLOL 25 MG TAB PO SCH (21:00)
[2017-02-22] MEDS: APIXABAN 5 MG TABLET GTB SCH (22:05)
[2017-02-22] MEDS: METOPROLOL 25 MG TAB GTB SCH (22:30)
[2017-02-23] VITALS (13 sets, daily range): BP systolic 93–137; BP diastolic 50–93; PULSE 91–121; RESP 16–18
[2017-02-23] MEDS: LEVALBUTEROL (NEB) 0.63 MG/3 ML AMP HHN SCH ×4 (01:24→19:36)
[2017-02-23] MEDS: METOPROLOL 5 MG INJ IV PRN (03:58)
[2017-02-23] MEDS: LANSOPRAZOLE 30 MG CAP GTB SCH ×2 (05:36→17:36)
[2017-02-23 07:04] LABS: ABNORMAL IP MESSAGE 1; BASOPHIL # 0.1 10^3/ul (0.0-0.1); BASOPHILS % 0.8 % (0.0-2.0); EOSINOPHILS # 0.4 10^3/ul (0.0-0.5); EOSINOPHILS % 3.6 % (0.0-7.0); HEMOGLOBIN 10.7 g/dl (12.0-16.0); LYMPHOCYTES # 1.6 10^3/ul (0.8-2.9); LYMPHOCYTES % 15.4 % (15.0-51.0); MEAN CORPUSCULAR HGB CONC 32.4 g/dl (32.0-37.0); MEAN CORPUSCULAR VOLUME 83.3 fl (82.0-101.0); MEAN PLATELET VOLUME 13.1 fl (7.4-10.4); MONOCYTE # 0.7 10^3/ul (0.3-0.9); MONOCYTES % 6.6 % (0.0-11.0); NEUTROPHILS % 72.7 % (39.0-77.0); PLATELET COUNT 379 10^3/UL (140-415); RED BLOOD COUNT 3.96 10^6/ul (4.20-5.40); RED CELL DISTRIBUTION WIDTH 17.1 % (11.5-14.5); WHITE BLOOD COUNT 10.2 10^3/ul (4.8-10.8)
[2017-02-23 07:07] LABS: POSITIVE DIFF @See below
[2017-02-23 07:35] LABS: CREATININE 0.84 mg/dl (0.44-1.00); POTASSIUM 3.7 mmol/L (3.5-5.1)
[2017-02-23] MEDS: NYSTATIN SUSP 5 ML CUP GTB SCH ×4 (10:00→21:19)
[2017-02-23] MEDS: METOPROLOL 25 MG TAB GTB SCH ×2 (10:00→21:00)
[2017-02-23] MEDS: APIXABAN 5 MG TABLET GTB SCH ×2 (10:00→21:21)
[2017-02-23] MEDS: COLLAGENASE 30 GM TUBE TOP SCH (10:01)
[2017-02-23] MEDS: AMOXICILLIN (50 MG/ML PO SYG) GTB SCH ×2 (10:01→21:24)
[2017-02-23] MEDS: CLARITHROMYCIN 500 MG TAB GTB SCH ×2 (10:01→21:20)
[2017-02-23] MEDS: NYSTATIN 30 GM POWDER BTL TOP SCH ×2 (10:01→21:22)
--- NOTE | 2017-02-23 11:30 | CONS ---
Date/Time of Note Date/Time of Note DATE: 02/23/17 TIME: 11:29 Assessment/Plan Assessment/Plan Additional Assessment/Plan 1. AF-mainly rate controlled better now - will hold off on pacer given overall state. STABLE on tele - no intervention planned - RATE CONTROLLED. no new episodes of abril now. 2.Hypotension-now improved on midodrine - stable - Rx as needed, Borderline - tolerating feeds now. BETTER. 3.Encephalopathy/ams - multifactorial, no change noted. UNCHANGED 4.coagulopathy-now decreased with coumadin held - on lovenox - no signs of bleeding now. STABLE. 5. Acute Renal failure-? secondary to vanc - will monitor now 6.Leukocytosis 7. Cardiomyopathy-EF 45% - euvolemic by exam. NO INDICATION FOR PACER/ICD now. 8. Cephalic vein thrombosis 9. Dysphagia s/p PEG - Rx with meds now Consultation Date/Type/Reason Admit Date/Time Jan 16, 2017 at 15:19 Initial Consult Date 01/26/17 Type of Consultation: Infectious Disease Referring Provider: LAWRENCE PICKERING 24 HR Interval Summary Free Text/Dictation STABLE on tele - no intervention planned - RATE CONTROLLED. no new episodes of abril now. ROS: No fever, no chills, no nausea, no vomiting, no diarrhea/constipation No recent weight changes No chest pain, no PND, no orthopnea No dizziness, blurred vision No thirst, no heat or cold intolerance (per nurse) Exam/Review of Systems Vital Signs Vitals Vital Signs Date Time Temp Pulse Resp B/P Pulse Ox O2 Delivery O2 Flow Rate FiO2 02/23/17 09:17 120 02/23/17 07:16 18 97 21 02/23/17 06:55 98.3 93/50 02/19/17 13:36 Room Air Intake and Output 02/22/17 02/22/17 02/23/17 15:00 23:00 07:00 Intake Total 1000 ml 1000 ml Output Total 500 ml 1300 ml Balance 500 ml -300 ml Exam General: WN/WD/NAD, AOx 0 HEENT: Unicetric/atraumatic/EOMI (does not follow commands) NECK: JVD elevated, no thyromegaly Lymph: no lymphadenopathy HEART: irregular with no S3, II/ systolic murmur at apex LUNGS: Coarse sounds ABD: soft, NT, ND, +BS : Intact Neuro: post CVA SKIN: chronic changes EXT: trace edema Results Result Diagram: 02/23/1760402/23/17604 Results 24 hrs Laboratory Tests Test 02/23/17 06:05 White Blood Count 10.2 Red Blood Count 3.96 L Hemoglobin 10.7 L Hematocrit 33.0 L Mean Corpuscular Volume 83.3 Mean Corpuscular Hemoglobin 27.0 L Mean Corpuscular Hemoglobin Concent 32.4 Red Cell Distribution Width 17.1 H Platelet Count 379 Mean Platelet Volume 13.1 H Neutrophils % 72.7 Lymphocytes % 15.4 Monocytes % 6.6 Eosinophils % 3.6 Basophils % 0.8 Nucleated Red Blood Cells % 0.0 Neutrophils # (Manual) 7 Lymphocytes # 1.6 Monocytes # 0.7 Eosinophils # 0.4 Basophils # 0.1 Nucleated Red Blood Cells # 0.0 Sodium Level 141 Potassium Level 3.7 Chloride Level 103 Carbon Dioxide Level 25 Anion Gap 17 H Blood Urea Nitrogen 26 H Creatinine 0.84 Glucose Level 113 Calcium Level 10.0 Medications Medications Current Medications Miscellaneous Information 1 ea NOTE XX ; Start 01/17/17 at 10:00 Glucose (Glutose) 15 gm Q15M PRN PO DECREASED GLUCOSE; Start 01/17/17 at 10:00 Glucose (Glutose) 22.5 gm Q15M PRN PO DECREASED GLUCOSE; Start 01/17/17 at 10: 00 Dextrose (D50w Syringe) 25 ml Q15M PRN IV DECREASED GLUCOSE; Start 01/17/17 at 10:00 Dextrose (D50w Syringe) 50 ml Q15M PRN IV DECREASED GLUCOSE; Start 01/17/17 at 10:00 Glucagon (Glucagen) 1 mg Q15M PRN IM DECREASED GLUCOSE; Start 01/17/17 at 10:00 Glucose (Glutose) 15 gm Q15M PRN BUCCAL DECREASED GLUCOSE; Start 01/17/17 at 10 :00 Collagenase (Santyl) 1 applic DAILY TOP Last administered on 02/23/17 10:01; Admin Dose 1 APPLIC; Start 01/17/17 at 21:00 IV Flush (NS 10 ml) 10 ml PRN PRN IV IV PROTOCOL Last administered on 21:45; Admin Dose 10 ML; Start 01/22/17 at 12:00 Miscellaneous Information (Pending Santyl Order For Wound Care) This patient dunaway... PRN PRN XX WOUND CARE; Start 01/24/17 at 07:30 Bisacodyl (Dulcolax Supp) 10 mg DAILY PRN [place] CONSTIPATION Last administered on 02/10/17 03:49; Admin Dose 10 MG; Start 01/25/17 at 16:30 Acetaminophen (Tylenol Liquid) 650 mg Q4H PRN NGT PAIN AND OR ELEVATED TEMP Last administered on 02/19/17 09:52; Admin Dose 650 MG; Start 01/26/17 at 09:00 Metoprolol Tartrate (Lopressor) 2.5 mg Q4H PRN IV HR > 110 Last administered on 02/23/17 03:58; Admin Dose 2.5 MG; Start 01/26/17 at 15:00 Midodrine (Proamatine) 5 mg Q8 PRN GTB BLOOD PRESSURE SUPPORT Last administered on 02/19/17 11:57; Admin Dose 5 MG; Start 01/28/17 at 16:30 Enoxaparin Sodium (Lovenox) 60 mg Q24H SC Last administered on 02/14/17 23:30 ; Admin Dose 60 MG; Start 02/03/17 at 00:00; Status Future Hold Nystatin (Nystatin Powder) 1 applic BID TOP Last administered on 02/23/17 10: 01; Admin Dose 1 APPLIC; Start 02/04/17 at 12:00 Eye Lubricant (Artificial Tears Oph) 2 drop Q6H PRN BOTH EYES DRY EYES Last administered on 02/19/17 21:44; Admin Dose 2 DROP; Start 02/13/17 at 15:30 Nystatin (Nystatin Susp) 5 ml QID GTB Last administered on 02/23/17 10:00; Admin Dose 5 ML; Start 02/18/17 at 08:00 Lansoprazole (Prevacid) 30 mg BID@,18 GTB Last administered on 02/23/17 05: 36; Admin Dose 30 MG; Start 02/18/17 at 18:00 Amoxicillin (Amoxicillin Susp) 1,000 mg BID GTB Last administered on 02/23/17 10:01; Admin Dose 1,000 MG; Start 02/20/17 at 21:00; Stop 03/06/17 at 20:59 Clarithromycin (Biaxin) 500 mg BID GTB Last administered on 02/23/17 10:01; Admin Dose 500 MG; Start 02/20/17 at 21:00 Metoprolol Tartrate (Lopressor) 12.5 mg BID GTB Last administered on 02/22/17 22:30; Admin Dose 12.5 MG; Start 02/22/17 at 22:30 Apixaban (Eliquis) 5 mg BID GTB Last administered on 02/23/17 10:00; Admin Dose 5 MG; Start 02/22/17 at 22:00 YAJAIRA ALVAREZ MD Feb 23, 2017 11:30
[2017-02-23] MEDS: MIDODRINE 5 MG TAB GTB PRN (16:02)
--- NOTE | 2017-02-23 16:37 | CONS ---
Date/Time of Note Date/Time of Note DATE: 02/23/17 TIME: 16:35 Assessment/Plan Assessment/Plan Chief Complaint/Hosp Course Assessment/impression: - UTI due to proteus - diffuse moderate degree of gastritis s/p EGD 02/15/2017 - gastritis due to H. pylori based on pathology 02/15/2017, on clarithromycin based regimen (02/20/2017-) - bleeding from GT site, and blood clots in tube feed - resolved - recurrent CVA - possible aspiration, improved - encephalopathy due to CVA. CSF from 01/19/2017: WBC=3, RBC=0, glu 53, pro=61, CSF ([place] serology negative, HSV negative, cocci CF negative, encephalitis meningitis panel could not be done due to a lack of sample), serum ([place] PCR negative, crypto antigen negative, cocci CF negative, histo CF negative). my order of crypto in CSF was cancelled and no reason given - bacteremia due to CoNS, probable contaminant. 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 pylori (02/20/2017-), clarithro, metronidazole and prevacid. Planned through 03/06/2017 - amoxicillin covers UTI caused by proteus. Pt took IV ceftriaxone previously (-02/19/2017) Problems: Consultation Date/Type/Reason Admit Date/Time Jan 16, 2017 at 15:19 Initial Consult Date 01/17/17 Type of Consultation: Infectious Disease Referring Provider: LAWRENCE PICKERING 24 HR Interval Summary Subjective hx not possible: pt non-verbal Exam/Review of Systems Vital Signs Vitals Vital Signs Date Time Temp Pulse Resp B/P Pulse Ox O2 Delivery O2 Flow Rate FiO2 02/23/17 16:27 99 02/23/17 15:51 98.4 16 135/63 98 02/23/17 14:09 21 02/19/17 13:36 Room Air Intake and Output 02/22/17 02/22/17 02/23/17 15:00 23:00 07:00 Intake Total 1000 ml 1000 ml Output Total 500 ml 1300 ml Balance 500 ml -300 ml Exam Constitutional: frail, non-verbal Psych: confusion Head: atraumatic, normocephalic Eyes: nl conjunctiva, nl lids ENMT: nl external ears & nose Respiratory: diminished breath sounds Cardiovascular: nl pulses, regular rate and rhythm Gastrointestinal: non-tender, other (GT), soft Genitourinary - Female: other (FC) Musculoskeletal: nl extremities to inspection Extremities: No edema Neurological: confused Skin: nl turgor Results Result Diagram: 02/23/1760402/23/17 06 Results 24 hrs Laboratory Tests Test 02/23/17 06:05 White Blood Count 10.2 Red Blood Count 3.96 L Hemoglobin 10.7 L Hematocrit 33.0 L Mean Corpuscular Volume 83.3 Mean Corpuscular Hemoglobin 27.0 L Mean Corpuscular Hemoglobin Concent 32.4 Red Cell Distribution Width 17.1 H Platelet Count 379 Mean Platelet Volume 13.1 H Neutrophils % 72.7 Lymphocytes % 15.4 Monocytes % 6.6 Eosinophils % 3.6 Basophils % 0.8 Nucleated Red Blood Cells % 0.0 Neutrophils # (Manual) 7 Lymphocytes # 1.6 Monocytes # 0.7 Eosinophils # 0.4 Basophils # 0.1 Nucleated Red Blood Cells # 0.0 Sodium Level 141 Potassium Level 3.7 Chloride Level 103 Carbon Dioxide Level 25 Anion Gap 17 H Blood Urea Nitrogen 26 H Creatinine 0.84 Glucose Level 113 Calcium Level 10.0 Medications Medications Current Medications Miscellaneous Information 1 ea NOTE XX ; Start 01/17/17 at 10:00 Glucose (Glutose) 15 gm Q15M PRN PO DECREASED GLUCOSE; Start 01/17/17 at 10:00 Glucose (Glutose) 22.5 gm Q15M PRN PO DECREASED GLUCOSE; Start 01/17/17 at 10: 00 Dextrose (D50w Syringe) 25 ml Q15M PRN IV DECREASED GLUCOSE; Start 01/17/17 at 10:00 Dextrose (D50w Syringe) 50 ml Q15M PRN IV DECREASED GLUCOSE; Start 01/17/17 at 10:00 Glucagon (Glucagen) 1 mg Q15M PRN IM DECREASED GLUCOSE; Start 01/17/17 at 10:00 Glucose (Glutose) 15 gm Q15M PRN BUCCAL DECREASED GLUCOSE; Start 01/17/17 at 10 :00 Collagenase (Santyl) 1 applic DAILY TOP Last administered on 02/23/17 10:01; Admin Dose 1 APPLIC; Start 01/17/17 at 21:00 IV Flush (NS 10 ml) 10 ml PRN PRN IV IV PROTOCOL Last administered on 21:45; Admin Dose 10 ML; Start 01/22/17 at 12:00 Miscellaneous Information (Pending Santyl Order For Wound Care) This patient dunaway... PRN PRN XX WOUND CARE; Start 01/24/17 at 07:30 Bisacodyl (Dulcolax Supp) 10 mg DAILY PRN [place] CONSTIPATION Last administered on 02/10/17 03:49; Admin Dose 10 MG; Start 01/25/17 at 16:30 Acetaminophen (Tylenol Liquid) 650 mg Q4H PRN NGT PAIN AND OR ELEVATED TEMP Last administered on 02/19/17 09:52; Admin Dose 650 MG; Start 01/26/17 at 09:00 Metoprolol Tartrate (Lopressor) 2.5 mg Q4H PRN IV HR > 110 Last administered on 02/23/17 03:58; Admin Dose 2.5 MG; Start 01/26/17 at 15:00 Midodrine (Proamatine) 5 mg Q8 PRN GTB BLOOD PRESSURE SUPPORT Last administered on 02/23/17 16:02; Admin Dose 5 MG; Start 01/28/17 at 16:30 Nystatin (Nystatin Powder) 1 applic BID TOP Last administered on 02/23/17 10: 01; Admin Dose 1 APPLIC; Start 02/04/17 at 12:00 Eye Lubricant (Artificial Tears Oph) 2 drop Q6H PRN BOTH EYES DRY EYES Last administered on 02/19/17 21:44; Admin Dose 2 DROP; Start 02/13/17 at 15:30 Nystatin (Nystatin Susp) 5 ml QID GTB Last administered on 02/23/17 14:25; Admin Dose 5 ML; Start 02/18/17 at 08:00 Lansoprazole (Prevacid) 30 mg BID@ GTB Last administered on 02/23/17 05: 36; Admin Dose 30 MG; Start 02/18/17 at 18:00 Amoxicillin (Amoxicillin Susp) 1,000 mg BID GTB Last administered on 02/23/17 10:01; Admin Dose 1,000 MG; Start 02/20/17 at 21:00; Stop 03/06/17 at 20:59 Clarithromycin (Biaxin) 500 mg BID GTB Last administered on 02/23/17 10:01; Admin Dose 500 MG; Start 02/20/17 at 21:00 Metoprolol Tartrate (Lopressor) 12.5 mg BID GTB Last administered on 02/22/17 22:30; Admin Dose 12.5 MG; Start 02/22/17 at 22:30 Apixaban (Eliquis) 5 mg BID GTB Last administered on 02/23/17 10:00; Admin Dose 5 MG; Start 02/22/17 at 22:00 TYE STYLES M.D. Feb 23, 2017 16:36
--- NOTE | 2017-02-23 17:02 | PN ---
Date/Time of Note Date/Time of Note DATE: 02/23/17 TIME: 17:00 Assessment/Plan VTE Prophylaxis VTE Prophylaxis Intervention: SCD's Lines/Catheters IV C[facility] PICC Line Central line still needed: Yes Urinary Cath still in place: Yes Reason Cath still needed: urinary retention Assessment/Plan Chief Complaint/Hosp Course Patient's continues to have atrial fibrillation with rate going to up to 120, no change in neurological status. Remains hemodynamically stable. Assessment/Plan -Urinary tract infection, continue antibiotics per ID. Dr. Abarca is following in an infection disease consultation. -Gastritis due to H. pylori, continue triple therapy per H. pylori eradication - Possible bleeding from G-tube and hematuria, resolved status post EGD was notion of gastritis, continue Protonix. - Bilateral thalamic infarctions. - Dysphagia, status post G-tube placement by Dr. Garcia. - Atrial fibrillation with rapid ventricular response. Dr. Armenta is following and cardiology consultation. Continue Eliquis. - Thrombosis of the bilateral cephalic veins. - Acute kidney injury, resolved. - History of CVA - History of hyperlipidemia Further recommendations based on clinical course. Plan of care discussed with Dr. Valdovinos. Problems: Exam/Review of Systems Vital Signs Vitals Vital Signs Date Time Temp Pulse Resp B/P Pulse Ox O2 Delivery O2 Flow Rate FiO2 02/23/17 16:27 99 02/23/17 15:51 98.4 16 135/63 98 02/23/17 14:09 21 02/19/17 13:36 Room Air Intake and Output 02/22/17 02/22/17 02/23/17 15:00 23:00 07:00 Intake Total 1000 ml 1000 ml Output Total 500 ml 1300 ml Balance 500 ml -300 ml Exam Psych: confusion Neck: supple Respiratory: normal air movement Cardiovascular: irregular rhythm Gastrointestinal: other (G-tube), soft Extremities: normal pulses Neurological: focal weakness Results Result Diagram: 02/23/17 0605 02/23/17 0605 Results 24 hrs Laboratory Tests Test 02/23/17 06:05 White Blood Count 10.2 Red Blood Count 3.96 L Hemoglobin 10.7 L Hematocrit 33.0 L Mean Corpuscular Volume 83.3 Mean Corpuscular Hemoglobin 27.0 L Mean Corpuscular Hemoglobin Concent 32.4 Red Cell Distribution Width 17.1 H Platelet Count 379 Mean Platelet Volume 13.1 H Neutrophils % 72.7 Lymphocytes % 15.4 Monocytes % 6.6 Eosinophils % 3.6 Basophils % 0.8 Nucleated Red Blood Cells % 0.0 Neutrophils # (Manual) 7 Lymphocytes # 1.6 Monocytes # 0.7 Eosinophils # 0.4 Basophils # 0.1 Nucleated Red Blood Cells # 0.0 Sodium Level 141 Potassium Level 3.7 Chloride Level 103 Carbon Dioxide Level 25 Anion Gap 17 H Blood Urea Nitrogen 26 H Creatinine 0.84 Glucose Level 113 Calcium Level 10.0 Medications Medications Current Medications Miscellaneous Information 1 ea NOTE XX ; Start 01/17/17 at 10:00 Glucose (Glutose) 15 gm Q15M PRN PO DECREASED GLUCOSE; Start 01/17/17 at 10:00 Glucose (Glutose) 22.5 gm Q15M PRN PO DECREASED GLUCOSE; Start 01/17/17 at 10: 00 Dextrose (D50w Syringe) 25 ml Q15M PRN IV DECREASED GLUCOSE; Start 01/17/17 at 10:00 Dextrose (D50w Syringe) 50 ml Q15M PRN IV DECREASED GLUCOSE; Start 01/17/17 at 10:00 Glucagon (Glucagen) 1 mg Q15M PRN IM DECREASED GLUCOSE; Start 01/17/17 at 10:00 Glucose (Glutose) 15 gm Q15M PRN BUCCAL DECREASED GLUCOSE; Start 01/17/17 at 10 :00 Collagenase (Santyl) 1 applic DAILY TOP Last administered on 02/23/17 10:01; Admin Dose 1 APPLIC; Start 01/17/17 at 21:00 IV Flush (NS 10 ml) 10 ml PRN PRN IV IV PROTOCOL Last administered on 21:45; Admin Dose 10 ML; Start 01/22/17 at 12:00 Miscellaneous Information (Pending Santyl Order For Wound Care) This patient dunaway... PRN PRN XX WOUND CARE; Start 01/24/17 at 07:30 Bisacodyl (Dulcolax Supp) 10 mg DAILY PRN [place] CONSTIPATION Last administered on 02/10/17 03:49; Admin Dose 10 MG; Start 01/25/17 at 16:30 Acetaminophen (Tylenol Liquid) 650 mg Q4H PRN NGT PAIN AND OR ELEVATED TEMP Last administered on 02/19/17 09:52; Admin Dose 650 MG; Start 01/26/17 at 09:00 Metoprolol Tartrate (Lopressor) 2.5 mg Q4H PRN IV HR > 110 Last administered on 02/23/17 03:58; Admin Dose 2.5 MG; Start 01/26/17 at 15:00 Midodrine (Proamatine) 5 mg Q8 PRN GTB BLOOD PRESSURE SUPPORT Last administered on 02/23/17 16:02; Admin Dose 5 MG; Start 01/28/17 at 16:30 Nystatin (Nystatin Powder) 1 applic BID TOP Last administered on 02/23/17 10: 01; Admin Dose 1 APPLIC; Start 02/04/17 at 12:00 Eye Lubricant (Artificial Tears Oph) 2 drop Q6H PRN BOTH EYES DRY EYES Last administered on 02/19/17 21:44; Admin Dose 2 DROP; Start 02/13/17 at 15:30 Nystatin (Nystatin Susp) 5 ml QID GTB Last administered on 02/23/17 14:25; Admin Dose 5 ML; Start 02/18/17 at 08:00 Lansoprazole (Prevacid) 30 mg BID@,18 GTB Last administered on 02/23/17 05: 36; Admin Dose 30 MG; Start 02/18/17 at 18:00 Amoxicillin (Amoxicillin Susp) 1,000 mg BID GTB Last administered on 02/23/17 10:01; Admin Dose 1,000 MG; Start 02/20/17 at 21:00; Stop 03/06/17 at 20:59 Clarithromycin (Biaxin) 500 mg BID GTB Last administered on 02/23/17 10:01; Admin Dose 500 MG; Start 02/20/17 at 21:00 Metoprolol Tartrate (Lopressor) 12.5 mg BID GTB Last administered on 02/22/17 22:30; Admin Dose 12.5 MG; Start 02/22/17 at 22:30 Apixaban (Eliquis) 5 mg BID GTB Last administered on 02/23/17 10:00; Admin Dose 5 MG; Start 02/22/17 at 22:00 LAWRENCE PICKERING Feb 23, 2017 17:02
[2017-02-23] MEDS: BISACODYL 10 MG SUPP PR PRN (21:19)
[2017-02-24] VITALS (12 sets, daily range): BP systolic 87–110; BP diastolic 52–73; PULSE 90–124; RESP 16–19
[2017-02-24] MEDS: MIDODRINE 5 MG TAB GTB PRN (00:52)
[2017-02-24] MEDS: LEVALBUTEROL (NEB) 0.63 MG/3 ML AMP HHN SCH ×4 (01:12→20:07)
[2017-02-24] MEDS: LANSOPRAZOLE 30 MG CAP GTB SCH ×2 (05:38→17:27)
[2017-02-24] MEDS: NYSTATIN SUSP 5 ML CUP GTB SCH ×4 (08:24→20:48)
[2017-02-24] MEDS: APIXABAN 5 MG TABLET GTB SCH ×2 (08:24→20:47)
[2017-02-24] MEDS: AMOXICILLIN (50 MG/ML PO SYG) GTB SCH ×2 (08:24→20:46)
[2017-02-24] MEDS: CLARITHROMYCIN 500 MG TAB GTB SCH ×2 (08:24→20:46)
[2017-02-24] MEDS: NYSTATIN 30 GM POWDER BTL TOP SCH ×2 (08:26→20:49)
[2017-02-24] MEDS: METOPROLOL 25 MG TAB GTB SCH ×2 (08:26→20:48)
[2017-02-24] MEDS: COLLAGENASE 30 GM TUBE TOP SCH ×2 (08:26→15:02)
--- NOTE | 2017-02-24 12:50 | CONS ---
Date/Time of Note Date/Time of Note DATE: 02/24/17 TIME: 12:45 Assessment/Plan Assessment/Plan Chief Complaint/Hosp Course IMP: 1. AF-mainly rate controlled/Trop negative x 3. Had pause x 3.7 seconds 01/30 on standing IVP BB. No recurrence since decrease in IVP BB. Some mild tachycardia/ RVR 2.Hypotension-on midodrine 3.encephalopathy/ams 4.coagulopathy-now on eliquis 5. Acute Renal failure-Now resolved 6.Leukocytosis 7. Cardiomyopathy-EF 45% 8. Cephalic vein thrombosis 9. Dysphagia s/p PEG Recc: -Tele -serial ecg's -Cont. Eliquis -Continue low dose BB as tolerated -Will give dose IVP digoxin to improve HR -Continue abx's -Follow MS closely which has had some mild improvement -Continue midodrine for low BP -Possible need for PPM will follow/stable at this time-no definite indication Problems: Consultation Date/Type/Reason Admit Date/Time Jan 16, 2017 at 15:19 Initial Consult Date 01/17/17 Type of Consultation: cardiology Reason for Consultation AF Referring Provider: LAWRENCE PICKERING Exam/Review of Systems Vital Signs Vitals Vital Signs Date Time Temp Pulse Resp B/P Pulse Ox O2 Delivery O2 Flow Rate FiO2 02/24/17 12:22 111 02/24/17 11:43 99.7 16 110/56 98 02/24/17 07:25 21 Intake and Output 02/23/17 02/23/17 02/24/17 15:00 23:00 07:00 Intake Total 1000 ml 1000 ml Output Total 700 ml 650 ml Balance 300 ml 350 ml Exam Review of Systems: CONSTITUTIONAL: No fevers, chills. PULMONARY: No sob CARDIOVASCULAR: No chest pain/palpitations GASTROINTESTINAL: No nausea/vomiting. GENITOURINARY: No hematuria/dysuria. MUSCULOSKELETAL: No myagias/arthalgias. PSYCHIATRIC: The patient denies depression. NEUROLOGIC: No weakness Constitutional: other (encephalopathic) Psych: no complaints Head: normocephalic Respiratory: diminished breath sounds Cardiovascular: regular rate and rhythm Gastrointestinal: non-tender, soft Musculoskeletal: muscle weakness (generalized) Extremities: edema (none) Neurological: confused, other (encephaloapthic) Results Result Diagram: 02/23/1760402/23/17604 Medications Medications Current Medications Miscellaneous Information 1 ea NOTE XX ; Start 01/17/17 at 10:00 Glucose (Glutose) 15 gm Q15M PRN PO DECREASED GLUCOSE; Start 01/17/17 at 10:00 Glucose (Glutose) 22.5 gm Q15M PRN PO DECREASED GLUCOSE; Start 01/17/17 at 10: 00 Dextrose (D50w Syringe) 25 ml Q15M PRN IV DECREASED GLUCOSE; Start 01/17/17 at 10:00 Dextrose (D50w Syringe) 50 ml Q15M PRN IV DECREASED GLUCOSE; Start 01/17/17 at 10:00 Glucagon (Glucagen) 1 mg Q15M PRN IM DECREASED GLUCOSE; Start 01/17/17 at 10:00 Glucose (Glutose) 15 gm Q15M PRN BUCCAL DECREASED GLUCOSE; Start 01/17/17 at 10 :00 Collagenase (Santyl) 1 applic DAILY TOP Last administered on 02/24/17 08:26; Admin Dose 1 APPLIC; Start 01/17/17 at 21:00 IV Flush (NS 10 ml) 10 ml PRN PRN IV IV PROTOCOL Last administered on 21:45; Admin Dose 10 ML; Start 01/22/17 at 12:00 Miscellaneous Information (Pending Santyl Order For Wound Care) This patient dunaway... PRN PRN XX WOUND CARE; Start 01/24/17 at 07:30 Bisacodyl (Dulcolax Supp) 10 mg DAILY PRN [place] CONSTIPATION Last administered on 02/23/17 21:19; Admin Dose 10 MG; Start 01/25/17 at 16:30 Acetaminophen (Tylenol Liquid) 650 mg Q4H PRN NGT PAIN AND OR ELEVATED TEMP Last administered on 02/19/17 09:52; Admin Dose 650 MG; Start 01/26/17 at 09:00 Metoprolol Tartrate (Lopressor) 2.5 mg Q4H PRN IV HR > 110 Last administered on 02/23/17 03:58; Admin Dose 2.5 MG; Start 01/26/17 at 15:00 Midodrine (Proamatine) 5 mg Q8 PRN GTB BLOOD PRESSURE SUPPORT Last administered on 02/24/17 00:52; Admin Dose 5 MG; Start 01/28/17 at 16:30 Nystatin (Nystatin Powder) 1 applic BID TOP Last administered on 02/24/17 08: 26; Admin Dose 1 APPLIC; Start 02/04/17 at 12:00 Eye Lubricant (Artificial Tears Oph) 2 drop Q6H PRN BOTH EYES DRY EYES Last administered on 02/19/17 21:44; Admin Dose 2 DROP; Start 02/13/17 at 15:30 Nystatin (Nystatin Susp) 5 ml QID GTB Last administered on 02/24/17 12:37; Admin Dose 5 ML; Start 02/18/17 at 08:00 Lansoprazole (Prevacid) 30 mg BID@18 GTB Last administered on 02/24/17 05: 38; Admin Dose 30 MG; Start 02/18/17 at 18:00 Amoxicillin (Amoxicillin Susp) 1,000 mg BID GTB Last administered on 02/24/17 08:24; Admin Dose 1,000 MG; Start 02/20/17 at 21:00; Stop 03/06/17 at 20:59 Clarithromycin (Biaxin) 500 mg BID GTB Last administered on 02/24/17 08:24; Admin Dose 500 MG; Start 02/20/17 at 21:00 Metoprolol Tartrate (Lopressor) 12.5 mg BID GTB Last administered on 02/22/17 22:30; Admin Dose 12.5 MG; Start 02/22/17 at 22:30 Apixaban (Eliquis) 5 mg BID GTB Last administered on 02/24/17 08:24; Admin Dose 5 MG; Start 02/22/17 at 22:00 MINOO REY Feb 24, 2017 12:50
[2017-02-24] MEDS ORDERED: DIGOXIN 500 MCG INJ IV ONE (13:00)
--- NOTE | 2017-02-24 14:57 | PN ---
Date/Time of Note Date/Time of Note DATE: 02/24/17 TIME: 14:55 Assessment/Plan VTE Prophylaxis VTE Prophylaxis Intervention: SCD's Lines/Catheters IV [facility] Type (from [facility]): PICC Line Central line still needed: Yes Urinary Cath still in place: Yes Reason Cath still needed: urinary retention Assessment/Plan Chief Complaint/Hosp Course Patient's continues to have atrial fibrillation with tachycardia going up to 130. Assessment/Plan - Urinary tract infection, continue antibiotics per ID. Dr. Abarca is following in an infection disease consultation. - Gastritis due to H. pylori, continue triple therapy per H. pylori eradication - Possible bleeding from G-tube and hematuria, resolved status post EGD was notion of gastritis, continue Protonix. - Bilateral thalamic infarctions. - Dysphagia, status post G-tube placement by Dr. Garcia. - Atrial fibrillation with rapid ventricular response. Dr. Armenta is following and cardiology consultation. Continue Eliquis. - Thrombosis of the bilateral cephalic veins. - Acute kidney injury, resolved. - History of CVA - History of hyperlipidemia Further recommendations based on clinical course. Plan of care discussed with Dr. Valdovinos. Problems: Exam/Review of Systems Vital Signs Vitals Vital Signs Date Time Temp Pulse Resp B/P Pulse Ox O2 Delivery O2 Flow Rate FiO2 02/24/17 13:15 61 18 99 21 02/24/17 11:43 99.7 110/56 Intake and Output 02/23/17 02/23/17 02/24/17 15:00 23:00 07:00 Intake Total 1000 ml 1000 ml Output Total 700 ml 650 ml Balance 300 ml 350 ml Exam Psych: confusion Neck: supple Respiratory: normal air movement Cardiovascular: irregular rhythm Gastrointestinal: other (G-tube), soft Extremities: normal pulses Neurological: focal weakness Results Result Diagram: 02/23/1760402/23/17604 Medications Medications Current Medications Miscellaneous Information 1 ea NOTE XX ; Start 01/17/17 at 10:00 Glucose (Glutose) 15 gm Q15M PRN PO DECREASED GLUCOSE; Start 01/17/17 at 10:00 Glucose (Glutose) 22.5 gm Q15M PRN PO DECREASED GLUCOSE; Start 01/17/17 at 10: 00 Dextrose (D50w Syringe) 25 ml Q15M PRN IV DECREASED GLUCOSE; Start 01/17/17 at 10:00 Dextrose (D50w Syringe) 50 ml Q15M PRN IV DECREASED GLUCOSE; Start 01/17/17 at 10:00 Glucagon (Glucagen) 1 mg Q15M PRN IM DECREASED GLUCOSE; Start 01/17/17 at 10:00 Glucose (Glutose) 15 gm Q15M PRN BUCCAL DECREASED GLUCOSE; Start 01/17/17 at 10 :00 Collagenase (Santyl) 1 applic DAILY TOP Last administered on 02/24/17 08:26; Admin Dose 1 APPLIC; Start 01/17/17 at 21:00 IV Flush (NS 10 ml) 10 ml PRN PRN IV IV PROTOCOL Last administered on 21:45; Admin Dose 10 ML; Start 01/22/17 at 12:00 Miscellaneous Information (Pending Santyl Order For Wound Care) This patient dunaway... PRN PRN XX WOUND CARE; Start 01/24/17 at 07:30 Bisacodyl (Dulcolax Supp) 10 mg DAILY PRN [place] CONSTIPATION Last administered on 02/23/17 21:19; Admin Dose 10 MG; Start 01/25/17 at 16:30 Acetaminophen (Tylenol Liquid) 650 mg Q4H PRN NGT PAIN AND OR ELEVATED TEMP Last administered on 02/19/17 09:52; Admin Dose 650 MG; Start 01/26/17 at 09:00 Metoprolol Tartrate (Lopressor) 2.5 mg Q4H PRN IV HR > 110 Last administered on 02/23/17 03:58; Admin Dose 2.5 MG; Start 01/26/17 at 15:00 Midodrine (Proamatine) 5 mg Q8 PRN GTB BLOOD PRESSURE SUPPORT Last administered on 02/24/17 00:52; Admin Dose 5 MG; Start 01/28/17 at 16:30 Nystatin (Nystatin Powder) 1 applic BID TOP Last administered on 02/24/17 08: 26; Admin Dose 1 APPLIC; Start 02/04/17 at 12:00 Eye Lubricant (Artificial Tears Oph) 2 drop Q6H PRN BOTH EYES DRY EYES Last administered on 02/19/17 21:44; Admin Dose 2 DROP; Start 02/13/17 at 15:30 Nystatin (Nystatin Susp) 5 ml QID GTB Last administered on 02/24/17 12:37; Admin Dose 5 ML; Start 02/18/17 at 08:00 Lansoprazole (Prevacid) 30 mg BID@ GTB Last administered on 02/24/17 05: 38; Admin Dose 30 MG; Start 02/18/17 at 18:00 Amoxicillin (Amoxicillin Susp) 1,000 mg BID GTB Last administered on 02/24/17 08:24; Admin Dose 1,000 MG; Start 02/20/17 at 21:00; Stop 03/06/17 at 20:59 Clarithromycin (Biaxin) 500 mg BID GTB Last administered on 02/24/17 08:24; Admin Dose 500 MG; Start 02/20/17 at 21:00 Metoprolol Tartrate (Lopressor) 12.5 mg BID GTB Last administered on 02/22/17 22:30; Admin Dose 12.5 MG; Start 02/22/17 at 22:30 Apixaban (Eliquis) 5 mg BID GTB Last administered on 02/24/17 08:24; Admin Dose 5 MG; Start 02/22/17 at 22:00 LAWRENCE PICKERING Feb 24, 2017 14:57
[2017-02-24] MEDS: BISACODYL 10 MG SUPP PR PRN (15:02)
--- NOTE | 2017-02-24 16:31 | CONS ---
[facility] HCIS Consult Follow up SOAP Patient Name: Nilda Mcmullen Unit Number: [id number] Date of : 1955 Patient Status: Admitted Inpatient Attending Doctor: Kana Valdovinos MD Edit: TYE CARBAJAL M.D. on 02/25/17 @ 17:43 Raven attestation: I discussed the management with LUNA De Jesus and agree with above. Date/Time of Note Date/Time of Note DATE: 02/24/17 TIME: 16:16 Consult Date/Type/Reason Admit Date/Time Jan 16, 2017 at 15:19 Initial Consult Date 01/26/17 Type of Consultation: Infectious Disease Ordering Provider: LAWRENCE PICKERING Objective Vital Signs Date Time Temp Pulse Resp B/P Pulse Ox O2 Delivery O2 Flow Rate FiO2 02/24/17 15:10 97.8 98 16 105/73 97 02/24/17 13:15 21 Intake and Output 02/23/17 02/23/17 02/24/17 15:00 23:00 07:00 Intake Total 1000 ml 1000 ml Output Total 700 ml 650 ml Balance 300 ml 350 ml Exam Constitutional: frail, non-verbal, opens right eye to noxious stimulus but goes back to sleep SILVIO Psych: unable to assess, sleeping Head: atraumatic, normocephalic Eyes: unable to assess, keeps eyes closed ENMT: normal external ears & nose Respiratory: diminished breath sounds Cardiovascular: irregular rate and rhythm, tachycardic Gastrointestinal: soft, non-distended, non-tender, GT in place, TF infusing Genitourinary - pedersen catheter in place Musculoskeletal: normal extremities to inspection Extremities: warm, dry, no edema, palpable pulses, Piccline LUE, no e/o infection Skin: warm, dry , normal turgor Results/Medications Result Diagram: 8/60402/23/17604 Medications Current Medications Miscellaneous Information 1 ea NOTE XX ; Start 01/17/17 at 10:00 Glucose (Glutose) 15 gm Q15M PRN PO DECREASED GLUCOSE; Start 01/17/17 at 10:00 Glucose (Glutose) 22.5 gm Q15M PRN PO DECREASED GLUCOSE; Start 01/17/17 at 10: 00 Dextrose (D50w Syringe) 25 ml Q15M PRN IV DECREASED GLUCOSE; Start 01/17/17 at 10:00 Dextrose (D50w Syringe) 50 ml Q15M PRN IV DECREASED GLUCOSE; Start 01/17/17 at 10:00 Glucagon (Glucagen) 1 mg Q15M PRN IM DECREASED GLUCOSE; Start 01/17/17 at 10:00 Glucose (Glutose) 15 gm Q15M PRN BUCCAL DECREASED GLUCOSE; Start 01/17/17 at 10 :00 Collagenase (Santyl) 1 applic DAILY TOP Last administered on 02/24/17 15:02; Admin Dose 1 APPLIC; Start 01/17/17 at 21:00 IV Flush (NS 10 ml) 10 ml PRN PRN IV IV PROTOCOL Last administered on 21:45; Admin Dose 10 ML; Start 01/22/17 at 12:00 Miscellaneous Information (Pending Santyl Order For Wound Care) This patient dunaway... PRN PRN XX WOUND CARE; Start 01/24/17 at 07:30 Bisacodyl (Dulcolax Supp) 10 mg DAILY PRN [place] CONSTIPATION Last administered on 02/24/17 15:02; Admin Dose 10 MG; Start 01/25/17 at 16:30 Acetaminophen (Tylenol Liquid) 650 mg Q4H PRN NGT PAIN AND OR ELEVATED TEMP Last administered on 02/19/17 09:52; Admin Dose 650 MG; Start 01/26/17 at 09:00 Metoprolol Tartrate (Lopressor) 2.5 mg Q4H PRN IV HR > 110 Last administered on 02/23/17 03:58; Admin Dose 2.5 MG; Start 01/26/17 at 15:00 Midodrine (Proamatine) 5 mg Q8 PRN GTB BLOOD PRESSURE SUPPORT Last administered on 02/24/17 00:52; Admin Dose 5 MG; Start 01/28/17 at 16:30 Nystatin (Nystatin Powder) 1 applic BID TOP Last administered on 02/24/17 08: 26; Admin Dose 1 APPLIC; Start 02/04/17 at 12:00 Eye Lubricant (Artificial Tears Oph) 2 drop Q6H PRN BOTH EYES DRY EYES Last administered on 02/19/17 21:44; Admin Dose 2 DROP; Start 02/13/17 at 15:30 Nystatin (Nystatin Susp) 5 ml QID GTB Last administered on 02/24/17 12:37; Admin Dose 5 ML; Start 02/18/17 at 08:00 Lansoprazole (Prevacid) 30 mg BID@,18 GTB Last administered on 02/24/17 05: 38; Admin Dose 30 MG; Start 02/18/17 at 18:00 Amoxicillin (Amoxicillin Susp) 1,000 mg BID GTB Last administered on 02/24/17 08:24; Admin Dose 1,000 MG; Start 02/20/17 at 21:00; Stop 03/06/17 at 20:59 Clarithromycin (Biaxin) 500 mg BID GTB Last administered on 02/24/17 08:24; Admin Dose 500 MG; Start 02/20/17 at 21:00 Metoprolol Tartrate (Lopressor) 12.5 mg BID GTB Last administered on 02/22/17 22:30; Admin Dose 12.5 MG; Start 02/22/17 at 22:30 Apixaban (Eliquis) 5 mg BID GTB Last administered on 02/24/17 08:24; Admin Dose 5 MG; Start 02/22/17 at 22:00 Assessment/Plan Chief Complaint/Hosp Course Assessment/impression: - UTI due to proteus - diffuse moderate degree of gastritis s/p EGD 02/15/2017 - gastritis due to H. pylori based on pathology 02/15/2017, on clarithromycin based regimen (02/20/2017-) - bleeding from GT site, and blood clots in tube feed - resolved - recurrent CVA - possible aspiration, improved - encephalopathy due to CVA. CSF from 01/19/2017: WBC=3, RBC=0, glu 53, pro=61, CSF ([place] serology negative, HSV negative, cocci CF negative, encephalitis meningitis panel could not be done due to a lack of sample), serum ([place] PCR negative, crypto antigen negative, cocci CF negative, histo CF negative). my order of crypto in CSF was cancelled and no reason given - bacteremia due to CoNS, probable contaminant. 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 pylori (02/20/2017-), Clarithro, Metronidazole and Prevacid. Planned through 03/06/2017 - amoxicillin covers UTI caused by proteus. Pt took IV ceftriaxone previously (-02/19/2017) Care and management discussed with nurse Delmer and DR. Carbajal Problems: CLAUDY DE JESUS Feb 24, 2017 16:26
[2017-02-25] VITALS (13 sets, daily range): BP systolic 94–110; BP diastolic 53–66; PULSE 70–101; RESP 18–20
[2017-02-25] MEDS: LEVALBUTEROL (NEB) 0.63 MG/3 ML AMP HHN SCH ×4 (01:15→20:02)
[2017-02-25] MEDS: LANSOPRAZOLE 30 MG CAP GTB SCH ×2 (05:49→18:40)
[2017-02-25] MEDS: METOPROLOL 25 MG TAB GTB SCH ×2 (09:00→21:00)
[2017-02-25] MEDS: CLARITHROMYCIN 500 MG TAB GTB SCH ×2 (09:00→21:40)
[2017-02-25] MEDS: APIXABAN 5 MG TABLET GTB SCH ×2 (09:08→21:40)
[2017-02-25] MEDS: AMOXICILLIN (50 MG/ML PO SYG) GTB SCH ×2 (09:10→21:39)
[2017-02-25] MEDS: NYSTATIN SUSP 5 ML CUP GTB SCH ×4 (09:10→21:40)
[2017-02-25] MEDS: NYSTATIN 30 GM POWDER BTL TOP SCH ×2 (09:18→21:40)
[2017-02-25] MEDS: ACETAMINOPHEN 650MG/20.3ML CUP NGT PRN (11:00)
--- NOTE | 2017-02-25 11:22 | CONS ---
Date/Time of Note Date/Time of Note DATE: 02/25/17 TIME: 11:20 Assessment/Plan Assessment/Plan Chief Complaint/Hosp Course IMP: 1. AF-mainly rate controlled/Trop negative x 3. Had pause x 3.7 seconds 01/30 on standing IVP BB. No recurrence since decrease in IVP BB. Some mild tachycardia/ RVR 2.Hypotension-on midodrine 3.encephalopathy/ams 4.coagulopathy-now on eliquis 5. Acute Renal failure-Now resolved 6.Leukocytosis 7. Cardiomyopathy-EF 45% 8. Cephalic vein thrombosis 9. Dysphagia s/p PEG Recc: -Tele -serial ecg's -Cont. Eliquis -Continue low dose BB as tolerated only -s/p dose IVP digoxin with overall improved HR -Continue abx's -Follow MS closely which has had some mild improvement -Continue midodrine for low BP -Possible need for PPM will follow/stable at this time-no definite indication Problems: Consultation Date/Type/Reason Admit Date/Time Jan 16, 2017 at 15:19 Initial Consult Date 01/17/17 Type of Consultation: cardiology Reason for Consultation AF Referring Provider: LAWRENCE PICKERING Exam/Review of Systems Vital Signs Vitals Vital Signs Date Time Temp Pulse Resp B/P Pulse Ox O2 Delivery O2 Flow Rate FiO2 02/25/17 08:38 51 18 99 21 02/25/17 07:02 98.1 100/65 Intake and Output 02/24/17 02/24/17 02/25/17 15:00 23:00 07:00 Intake Total 875 ml 1100 ml Output Total 650 ml 500 ml Balance 225 ml 600 ml Exam Review of Systems: CONSTITUTIONAL: No fevers, chills. PULMONARY: No sob CARDIOVASCULAR: No chest pain/palpitations GASTROINTESTINAL: No nausea/vomiting. GENITOURINARY: No hematuria/dysuria. MUSCULOSKELETAL: No myagias/arthalgias. PSYCHIATRIC: The patient denies depression. NEUROLOGIC: No weakness Constitutional: alert Psych: no complaints Head: normocephalic ENMT: mucosa pink and moist Neck: jvd (9 cm water), supple Respiratory: diminished breath sounds (at basers/B) Cardiovascular: regular rate and rhythm Gastrointestinal: non-tender, soft Musculoskeletal: muscle tone (normal) Extremities: edema (none) Neurological: other (No focal deficits) Results Result Diagram: 02/23/1760402/23/17604 Medications Medications Current Medications Miscellaneous Information 1 ea NOTE XX ; Start 01/17/17 at 10:00 Glucose (Glutose) 15 gm Q15M PRN PO DECREASED GLUCOSE; Start 01/17/17 at 10:00 Glucose (Glutose) 22.5 gm Q15M PRN PO DECREASED GLUCOSE; Start 01/17/17 at 10: 00 Dextrose (D50w Syringe) 25 ml Q15M PRN IV DECREASED GLUCOSE; Start 01/17/17 at 10:00 Dextrose (D50w Syringe) 50 ml Q15M PRN IV DECREASED GLUCOSE; Start 01/17/17 at 10:00 Glucagon (Glucagen) 1 mg Q15M PRN IM DECREASED GLUCOSE; Start 01/17/17 at 10:00 Glucose (Glutose) 15 gm Q15M PRN BUCCAL DECREASED GLUCOSE; Start 01/17/17 at 10 :00 Collagenase (Santyl) 1 applic DAILY TOP Last administered on 02/24/17 15:02; Admin Dose 1 APPLIC; Start 01/17/17 at 21:00 IV Flush (NS 10 ml) 10 ml PRN PRN IV IV PROTOCOL Last administered on 21:45; Admin Dose 10 ML; Start 01/22/17 at 12:00 Miscellaneous Information (Pending Santyl Order For Wound Care) This patient dunaway... PRN PRN XX WOUND CARE; Start 01/24/17 at 07:30 Bisacodyl (Dulcolax Supp) 10 mg DAILY PRN [place] CONSTIPATION Last administered on 02/24/17 15:02; Admin Dose 10 MG; Start 01/25/17 at 16:30 Acetaminophen (Tylenol Liquid) 650 mg Q4H PRN NGT PAIN AND OR ELEVATED TEMP Last administered on 02/25/17 11:00; Admin Dose 650 MG; Start 01/26/17 at 09:00 Metoprolol Tartrate (Lopressor) 2.5 mg Q4H PRN IV HR > 110 Last administered on 02/23/17 03:58; Admin Dose 2.5 MG; Start 01/26/17 at 15:00 Midodrine (Proamatine) 5 mg Q8 PRN GTB BLOOD PRESSURE SUPPORT Last administered on 02/24/17 00:52; Admin Dose 5 MG; Start 01/28/17 at 16:30 Nystatin (Nystatin Powder) 1 applic BID TOP Last administered on 02/25/17 09: 18; Admin Dose 1 APPLIC; Start 02/04/17 at 12:00 Eye Lubricant (Artificial Tears Oph) 2 drop Q6H PRN BOTH EYES DRY EYES Last administered on 02/19/17 21:44; Admin Dose 2 DROP; Start 02/13/17 at 15:30 Nystatin (Nystatin Susp) 5 ml QID GTB Last administered on 02/25/17 09:10; Admin Dose 5 ML; Start 02/18/17 at 08:00 Lansoprazole (Prevacid) 30 mg BID@ GTB Last administered on 02/25/17 05: 49; Admin Dose 30 MG; Start 02/18/17 at 18:00 Amoxicillin (Amoxicillin Susp) 1,000 mg BID GTB Last administered on 02/25/17 09:10; Admin Dose 1,000 MG; Start 02/20/17 at 21:00; Stop 03/06/17 at 20:59 Clarithromycin (Biaxin) 500 mg BID GTB Last administered on 02/24/17 20:46; Admin Dose 500 MG; Start 02/20/17 at 21:00 Metoprolol Tartrate (Lopressor) 12.5 mg BID GTB Last administered on 02/22/17 22:30; Admin Dose 12.5 MG; Start 02/22/17 at 22:30 Apixaban (Eliquis) 5 mg BID GTB Last administered on 02/25/17 09:08; Admin Dose 5 MG; Start 02/22/17 at 22:00 MINOO REY Feb 25, 2017 11:22
--- NOTE | 2017-02-25 14:35 | PN ---
Date/Time of Note Date/Time of Note DATE: 02/25/17 TIME: 14:29 Assessment/Plan VTE Prophylaxis VTE Prophylaxis Intervention: other Lines/Catheters [facility] ([facility] PICC Line Central line still needed: Yes Urinary Cath still in place: Yes Reason Cath still needed: urinary retention Assessment/Plan Assessment/Plan - Urinary tract infection, continue antibiotics per ID. Dr. Abarca is following in an infection disease consultation. - Gastritis due to H. pylori, continue triple therapy per H. pylori eradication - Possible bleeding from G-tube and hematuria, resolved status post EGD was notion of gastritis, continue Protonix. - Bilateral thalamic infarctions. - Dysphagia, status post G-tube placement by Dr. Garcia. - Atrial fibrillation with rapid ventricular response. Dr. Armenta is following and cardiology consultation. Continue Eliquis. - Thrombosis of the bilateral cephalic veins. - Acute kidney injury, resolved. - History of CVA - History of hyperlipidemia Further recommendations based on clinical course. Plan of care discussed with Dr. Valdovinos. Subjective 24 Hr Interval Summary Free Text/Dictation Patient's continues to have atrial fibrillation with HR 91. opens eyes, talks at times, getting PT- awake/ responsive/ follows simple commands. Family at bed side- all Qs answered. Dw staff Exam/Review of Systems Vital Signs Vitals Vital Signs Date Time Temp Pulse Resp B/P Pulse Ox O2 Delivery O2 Flow Rate FiO2 02/25/17 12:12 101 02/25/17 11:29 98.3 18 98/66 97 02/25/17 08:38 21 Intake and Output 02/24/17 02/24/17 02/25/17 15:00 23:00 07:00 Intake Total 875 ml 1100 ml Output Total 650 ml 500 ml Balance 225 ml 600 ml Exam Constitutional: alert, oriented (name, person), well developed Respiratory: clear to auscultation, normal air movement Cardiovascular: irregular rhythm Gastrointestinal: non-tender, soft Musculoskeletal: nl extremities to inspection Extremities: normal pulses Neurological: lethargic, nl mental status, nl speech Results Result Diagram: 02/23/17 0605 02/23/17 0605 Results 24 hrs Laboratory Tests Test 02/25/17 11:52 Bedside Glucose 124 Medications Medications Current Medications Miscellaneous Information 1 ea NOTE XX ; Start 01/17/17 at 10:00 Glucose (Glutose) 15 gm Q15M PRN PO DECREASED GLUCOSE; Start 01/17/17 at 10:00 Glucose (Glutose) 22.5 gm Q15M PRN PO DECREASED GLUCOSE; Start 01/17/17 at 10: 00 Dextrose (D50w Syringe) 25 ml Q15M PRN IV DECREASED GLUCOSE; Start 01/17/17 at 10:00 Dextrose (D50w Syringe) 50 ml Q15M PRN IV DECREASED GLUCOSE; Start 01/17/17 at 10:00 Glucagon (Glucagen) 1 mg Q15M PRN IM DECREASED GLUCOSE; Start 01/17/17 at 10:00 Glucose (Glutose) 15 gm Q15M PRN BUCCAL DECREASED GLUCOSE; Start 01/17/17 at 10 :00 Collagenase (Santyl) 1 applic DAILY TOP Last administered on 02/24/17 15:02; Admin Dose 1 APPLIC; Start 01/17/17 at 21:00 IV Flush (NS 10 ml) 10 ml PRN PRN IV IV PROTOCOL Last administered on 21:45; Admin Dose 10 ML; Start 01/22/17 at 12:00 Miscellaneous Information (Pending Santyl Order For Wound Care) This patient dunaway... PRN PRN XX WOUND CARE; Start 01/24/17 at 07:30 Bisacodyl (Dulcolax Supp) 10 mg DAILY PRN [place] CONSTIPATION Last administered on 02/24/17 15:02; Admin Dose 10 MG; Start 01/25/17 at 16:30 Acetaminophen (Tylenol Liquid) 650 mg Q4H PRN NGT PAIN AND OR ELEVATED TEMP Last administered on 02/25/17 11:00; Admin Dose 650 MG; Start 01/26/17 at 09:00 Metoprolol Tartrate (Lopressor) 2.5 mg Q4H PRN IV HR > 110 Last administered on 02/23/17 03:58; Admin Dose 2.5 MG; Start 01/26/17 at 15:00 Midodrine (Proamatine) 5 mg Q8 PRN GTB BLOOD PRESSURE SUPPORT Last administered on 02/24/17 00:52; Admin Dose 5 MG; Start 01/28/17 at 16:30 Nystatin (Nystatin Powder) 1 applic BID TOP Last administered on 02/25/17 09: 18; Admin Dose 1 APPLIC; Start 02/04/17 at 12:00 Eye Lubricant (Artificial Tears Oph) 2 drop Q6H PRN BOTH EYES DRY EYES Last administered on 02/19/17 21:44; Admin Dose 2 DROP; Start 02/13/17 at 15:30 Nystatin (Nystatin Susp) 5 ml QID GTB Last administered on 02/25/17 09:10; Admin Dose 5 ML; Start 02/18/17 at 08:00 Lansoprazole (Prevacid) 30 mg BID@,18 GTB Last administered on 02/25/17 05: 49; Admin Dose 30 MG; Start 02/18/17 at 18:00 Amoxicillin (Amoxicillin Susp) 1,000 mg BID GTB Last administered on 02/25/17 09:10; Admin Dose 1,000 MG; Start 02/20/17 at 21:00; Stop 03/06/17 at 20:59 Clarithromycin (Biaxin) 500 mg BID GTB Last administered on 02/24/17 20:46; Admin Dose 500 MG; Start 02/20/17 at 21:00 Metoprolol Tartrate (Lopressor) 12.5 mg BID GTB Last administered on 02/22/17 22:30; Admin Dose 12.5 MG; Start 02/22/17 at 22:30 Apixaban (Eliquis) 5 mg BID GTB Last administered on 02/25/17 09:08; Admin Dose 5 MG; Start 02/22/17 at 22:00 ALEXIS NAJERA Feb 25, 2017 14:35
--- NOTE | 2017-02-25 17:45 | CONS ---
Date/Time of Note Date/Time of Note DATE: 02/25/17 TIME: 17:43 Assessment/Plan Assessment/Plan Chief Complaint/Hosp Course Assessment/impression: - UTI due to proteus - diffuse moderate degree of gastritis s/p EGD 02/15/2017 - gastritis due to H. pylori based on pathology 02/15/2017, on clarithromycin based regimen (02/20/2017-), [id number] - bleeding from GT site, and blood clots in tube feed - resolved - recurrent CVA - possible aspiration, improved - encephalopathy due to CVA. CSF from 01/19/2017: WBC=3, RBC=0, glu 53, pro=61, CSF ([place] serology negative, HSV negative, cocci CF negative, encephalitis meningitis panel could not be done due to a lack of sample), serum ([place] PCR negative, crypto antigen negative, cocci CF negative, histo CF negative). my order of crypto in CSF was cancelled and no reason given - bacteremia due to CoNS, probable contaminant. 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 pylori (02/20/2017-), clarithro, amoxicillin and lansoprazole. Planned through 03/06/2017 - amoxicillin covers UTI caused by proteus. Pt took IV ceftriaxone previously (-02/19/2017) Problems: Consultation Date/Type/Reason Admit Date/Time Jan 16, 2017 at 15:19 Initial Consult Date 01/17/17 Type of Consultation: ID Referring Provider: LAWRENCE PICKERING 24 HR Interval Summary Subjective hx not possible: pt non-verbal Exam/Review of Systems Vital Signs Vitals Vital Signs Date Time Temp Pulse Resp B/P Pulse Ox O2 Delivery O2 Flow Rate FiO2 02/25/17 16:16 91 02/25/17 15:50 18 97 21 02/25/17 15:33 98.2 97/55 Intake and Output 02/24/17 02/24/17 02/25/17 15:00 23:00 07:00 Intake Total 875 ml 1100 ml Output Total 650 ml 500 ml Balance 225 ml 600 ml Exam Constitutional: frail, non-verbal Psych: confusion Head: atraumatic, normocephalic Eyes: nl conjunctiva, nl lids, nl sclera ENMT: nl external ears & nose, nl nasal mucosa & septum Respiratory: diminished breath sounds Cardiovascular: nl pulses, regular rate and rhythm Gastrointestinal: non-tender, other (GT), soft Genitourinary - Female: other (FC) Musculoskeletal: nl extremities to inspection Extremities: No edema Neurological: confused, lethargic Skin: nl turgor, No rash or lesions Results Result Diagram: 02/23/1760402/23/17604 Results 24 hrs Laboratory Tests Test 02/25/17 11:52 Bedside Glucose 124 Medications Medications Current Medications Miscellaneous Information 1 ea NOTE XX ; Start 01/17/17 at 10:00 Glucose (Glutose) 15 gm Q15M PRN PO DECREASED GLUCOSE; Start 01/17/17 at 10:00 Glucose (Glutose) 22.5 gm Q15M PRN PO DECREASED GLUCOSE; Start 01/17/17 at 10: 00 Dextrose (D50w Syringe) 25 ml Q15M PRN IV DECREASED GLUCOSE; Start 01/17/17 at 10:00 Dextrose (D50w Syringe) 50 ml Q15M PRN IV DECREASED GLUCOSE; Start 01/17/17 at 10:00 Glucagon (Glucagen) 1 mg Q15M PRN IM DECREASED GLUCOSE; Start 01/17/17 at 10:00 Glucose (Glutose) 15 gm Q15M PRN BUCCAL DECREASED GLUCOSE; Start 01/17/17 at 10 :00 Collagenase (Santyl) 1 applic DAILY TOP Last administered on 02/24/17 15:02; Admin Dose 1 APPLIC; Start 01/17/17 at 21:00 IV Flush (NS 10 ml) 10 ml PRN PRN IV IV PROTOCOL Last administered on 21:45; Admin Dose 10 ML; Start 01/22/17 at 12:00 Miscellaneous Information (Pending Santyl Order For Wound Care) This patient dunaway... PRN PRN XX WOUND CARE; Start 01/24/17 at 07:30 Bisacodyl (Dulcolax Supp) 10 mg DAILY PRN [place] CONSTIPATION Last administered on 02/24/17 15:02; Admin Dose 10 MG; Start 01/25/17 at 16:30 Acetaminophen (Tylenol Liquid) 650 mg Q4H PRN NGT PAIN AND OR ELEVATED TEMP Last administered on 02/25/17 11:00; Admin Dose 650 MG; Start 01/26/17 at 09:00 Metoprolol Tartrate (Lopressor) 2.5 mg Q4H PRN IV HR > 110 Last administered on 02/23/17 03:58; Admin Dose 2.5 MG; Start 01/26/17 at 15:00 Midodrine (Proamatine) 5 mg Q8 PRN GTB BLOOD PRESSURE SUPPORT Last administered on 02/24/17 00:52; Admin Dose 5 MG; Start 01/28/17 at 16:30 Nystatin (Nystatin Powder) 1 applic BID TOP Last administered on 02/25/17 09: 18; Admin Dose 1 APPLIC; Start 02/04/17 at 12:00 Eye Lubricant (Artificial Tears Oph) 2 drop Q6H PRN BOTH EYES DRY EYES Last administered on 02/19/17 21:44; Admin Dose 2 DROP; Start 02/13/17 at 15:30 Nystatin (Nystatin Susp) 5 ml QID GTB Last administered on 02/25/17 17:07; Admin Dose 5 ML; Start 02/18/17 at 08:00 Lansoprazole (Prevacid) 30 mg BID@18 GTB Last administered on 02/25/17 05: 49; Admin Dose 30 MG; Start 02/18/17 at 18:00 Amoxicillin (Amoxicillin Susp) 1,000 mg BID GTB Last administered on 02/25/17 09:10; Admin Dose 1,000 MG; Start 02/20/17 at 21:00; Stop 03/06/17 at 20:59 Clarithromycin (Biaxin) 500 mg BID GTB Last administered on 02/24/17 20:46; Admin Dose 500 MG; Start 02/20/17 at 21:00 Metoprolol Tartrate (Lopressor) 12.5 mg BID GTB Last administered on 02/22/17 22:30; Admin Dose 12.5 MG; Start 02/22/17 at 22:30 Apixaban (Eliquis) 5 mg BID GTB Last administered on 02/25/17 09:08; Admin Dose 5 MG; Start 02/22/17 at 22:00 TYE STYLES M.D. Feb 25, 2017 17:45
[2017-02-25] MEDS: ARTIFICIAL TEARS 15 ML OPH BOTH EYES PRN (21:40)
[2017-02-26] VITALS (12 sets, daily range): BP systolic 94–119; BP diastolic 55–70; PULSE 71–103; RESP 18–20
[2017-02-26] MEDS: LEVALBUTEROL (NEB) 0.63 MG/3 ML AMP HHN SCH ×4 (01:35→20:29)
[2017-02-26] MEDS: LANSOPRAZOLE 30 MG CAP GTB SCH ×2 (06:29→17:35)
[2017-02-26 07:01] LABS: BASOPHIL # 0.1 10^3/ul (0.0-0.1); EOSINOPHILS # 0.2 10^3/ul (0.0-0.5); EOSINOPHILS % 2.6 % (0.0-7.0); HEMOGLOBIN 10.7 g/dl (12.0-16.0); LYMPHOCYTES # 1.8 10^3/ul (0.8-2.9); LYMPHOCYTES % 19.8 % (15.0-51.0); MEAN CORPUSCULAR HEMOGLOBIN 27.2 pg (29.0-33.0); MEAN CORPUSCULAR HGB CONC 32.4 g/dl (32.0-37.0); MEAN PLATELET VOLUME 12.3 fl (7.4-10.4); MONOCYTE # 0.7 10^3/ul (0.3-0.9); MONOCYTES % 7.9 % (0.0-11.0); NEUTROPHILS % 67.7 % (39.0-77.0); PLATELET COUNT 410 10^3/UL (140-415); RED BLOOD COUNT 3.93 10^6/ul (4.20-5.40); RED CELL DISTRIBUTION WIDTH 16.9 % (11.5-14.5); WHITE BLOOD COUNT 8.9 10^3/ul (4.8-10.8)
[2017-02-26 07:37] LABS: CREATININE 0.9 mg/dl (0.44-1.00); POTASSIUM 4.2 mmol/L (3.5-5.1)
[2017-02-26] MEDS: NYSTATIN 30 GM POWDER BTL TOP SCH ×2 (09:00→21:38)
--- NOTE | 2017-02-26 10:51 | CONS ---
Date/Time of Note Date/Time of Note DATE: 02/26/17 TIME: 10:46 Assessment/Plan Assessment/Plan Chief Complaint/Hosp Course IMP: 1. AF-mainly rate controlled/Trop negative x 3. Had pause x 3.7 seconds 01/30 on standing IVP BB. No recurrence since decrease in IVP BB. Some mild tachycardia/ RVR 2.Hypotension-on midodrine 3.encephalopathy/ams 4.coagulopathy-now on eliquis 5. Acute Renal failure-Now resolved 6.Leukocytosis 7. Cardiomyopathy-EF 45% 8. Cephalic vein thrombosis 9. Dysphagia s/p PEG Recc: -Tele -serial ecg's -Cont. Eliquis -Continue low dose BB as tolerated only -Will give additional dose IVP digoxin to improve HR control -Continue abx's -Follow MS closely which has had some mild improvement -Continue midodrine for low BP -Possible need for PPM will follow/stable at this time-no definite indication Problems: Consultation Date/Type/Reason Admit Date/Time Jan 16, 2017 at 15:19 Initial Consult Date 01/17/17 Type of Consultation: cardiology Reason for Consultation AF Referring Provider: LAWRENCE PICKERING Exam/Review of Systems Vital Signs Vitals Vital Signs Date Time Temp Pulse Resp B/P Pulse Ox O2 Delivery O2 Flow Rate FiO2 02/26/17 08:08 103 02/26/17 07:38 18 96 21 02/26/17 07:19 98.5 95/59 Intake and Output 02/25/17 02/25/17 02/26/17 15:00 23:00 07:00 Intake Total 1120 ml Output Total 450 ml Balance 670 ml Exam Review of Systems: CONSTITUTIONAL: No fevers, chills. PULMONARY: No sob CARDIOVASCULAR: No chest pain/palpitations GASTROINTESTINAL: No nausea/vomiting. GENITOURINARY: No hematuria/dysuria. MUSCULOSKELETAL: No myagias/arthalgias. PSYCHIATRIC: The patient denies depression. NEUROLOGIC: encephalopathy Constitutional: alert Psych: no complaints Head: normocephalic ENMT: mucosa pink and moist Neck: jvd (9 cm water), supple Respiratory: diminished breath sounds (at bases/B) Cardiovascular: regular rate and rhythm Gastrointestinal: non-tender, soft Musculoskeletal: muscle tone (normal) Extremities: edema (none) Neurological: other (No focal deficits) Results Result Diagram: 02/26/17 0630 02/26/17 0630 Results 24 hrs Laboratory Tests Test 02/25/17 11:52 02/26/17 06:30 Bedside Glucose 124 White Blood Count 8.9 Red Blood Count 3.93 L Hemoglobin 10.7 L Hematocrit 33.0 L Mean Corpuscular Volume 84.0 Mean Corpuscular Hemoglobin 27.2 L Mean Corpuscular Hemoglobin Concent 32.4 Red Cell Distribution Width 16.9 H Platelet Count 410 Mean Platelet Volume 12.3 H Neutrophils % 67.7 Lymphocytes % 19.8 Monocytes % 7.9 Eosinophils % 2.6 Basophils % 1.0 Nucleated Red Blood Cells % 0.0 Neutrophils # (Manual) 6.0 Lymphocytes # 1.8 Monocytes # 0.7 Eosinophils # 0.2 Basophils # 0.1 Nucleated Red Blood Cells # 0.0 Sodium Level 146 H Potassium Level 4.2 Chloride Level 102 Carbon Dioxide Level 27 Anion Gap 21 H Blood Urea Nitrogen 26 H Creatinine 0.90 Glucose Level 111 Calcium Level 10.0 Medications Medications Current Medications Miscellaneous Information 1 ea NOTE XX ; Start 01/17/17 at 10:00 Glucose (Glutose) 15 gm Q15M PRN PO DECREASED GLUCOSE; Start 01/17/17 at 10:00 Glucose (Glutose) 22.5 gm Q15M PRN PO DECREASED GLUCOSE; Start 01/17/17 at 10: 00 Dextrose (D50w Syringe) 25 ml Q15M PRN IV DECREASED GLUCOSE; Start 01/17/17 at 10:00 Dextrose (D50w Syringe) 50 ml Q15M PRN IV DECREASED GLUCOSE; Start 01/17/17 at 10:00 Glucagon (Glucagen) 1 mg Q15M PRN IM DECREASED GLUCOSE; Start 01/17/17 at 10:00 Glucose (Glutose) 15 gm Q15M PRN BUCCAL DECREASED GLUCOSE; Start 01/17/17 at 10 :00 Collagenase (Santyl) 1 applic DAILY TOP Last administered on 02/24/17 15:02; Admin Dose 1 APPLIC; Start 01/17/17 at 21:00 IV Flush (NS 10 ml) 10 ml PRN PRN IV IV PROTOCOL Last administered on 21:45; Admin Dose 10 ML; Start 01/22/17 at 12:00 Miscellaneous Information (Pending Santyl Order For Wound Care) This patient dunaway... PRN PRN XX WOUND CARE; Start 01/24/17 at 07:30 Bisacodyl (Dulcolax Supp) 10 mg DAILY PRN [place] CONSTIPATION Last administered on 02/24/17 15:02; Admin Dose 10 MG; Start 01/25/17 at 16:30 Acetaminophen (Tylenol Liquid) 650 mg Q4H PRN NGT PAIN AND OR ELEVATED TEMP Last administered on 02/25/17 11:00; Admin Dose 650 MG; Start 01/26/17 at 09:00 Metoprolol Tartrate (Lopressor) 2.5 mg Q4H PRN IV HR > 110 Last administered on 02/23/17 03:58; Admin Dose 2.5 MG; Start 01/26/17 at 15:00 Midodrine (Proamatine) 5 mg Q8 PRN GTB BLOOD PRESSURE SUPPORT Last administered on 02/24/17 00:52; Admin Dose 5 MG; Start 01/28/17 at 16:30 Nystatin (Nystatin Powder) 1 applic BID TOP Last administered on 02/25/17 21: 40; Admin Dose 1 APPLIC; Start 02/04/17 at 12:00 Eye Lubricant (Artificial Tears Oph) 2 drop Q6H PRN BOTH EYES DRY EYES Last administered on 02/25/17 21:40; Admin Dose 2 DROP; Start 02/13/17 at 15:30 Nystatin (Nystatin Susp) 5 ml QID GTB Last administered on 02/25/17 21:40; Admin Dose 5 ML; Start 02/18/17 at 08:00 Lansoprazole (Prevacid) 30 mg BID@,18 GTB Last administered on 02/26/17 06: 29; Admin Dose 30 MG; Start 02/18/17 at 18:00 Amoxicillin (Amoxicillin Susp) 1,000 mg BID GTB Last administered on 02/25/17 21:39; Admin Dose 1,000 MG; Start 02/20/17 at 21:00; Stop 03/06/17 at 20:59 Clarithromycin (Biaxin) 500 mg BID GTB Last administered on 02/25/17 21:40; Admin Dose 500 MG; Start 02/20/17 at 21:00 Metoprolol Tartrate (Lopressor) 12.5 mg BID GTB Last administered on 02/22/17 22:30; Admin Dose 12.5 MG; Start 02/22/17 at 22:30 Apixaban (Eliquis) 5 mg BID GTB Last administered on 02/25/17 21:40; Admin Dose 5 MG; Start 02/22/17 at 22:00 MINOO REY Feb 26, 2017 10:51
[2017-02-26] MEDS: NYSTATIN SUSP 5 ML CUP GTB SCH ×4 (10:53→21:40)
[2017-02-26] MEDS: APIXABAN 5 MG TABLET GTB SCH ×2 (10:53→21:40)
[2017-02-26] MEDS: CLARITHROMYCIN 500 MG TAB GTB SCH ×2 (10:53→21:40)
[2017-02-26] MEDS: METOPROLOL 25 MG TAB GTB SCH ×2 (10:59→21:40)
[2017-02-26] MEDS: COLLAGENASE 30 GM TUBE TOP SCH (11:25)
[2017-02-26] MEDS ORDERED: DIGOXIN 500 MCG INJ IV ONE (11:30)
--- NOTE | 2017-02-26 11:36 | CONS ---
GIRISH SCHMITZ PL[employer]ER SETTER 02/26/17 1135: Date/Time of Note Date/Time of Note DATE: 02/26/17 TIME: 11:34 Assessment/Plan Assessment/Plan Chief Complaint/Hosp Course Assessment/impression: - UTI due to proteus - diffuse moderate degree of gastritis s/p EGD 02/15/2017 - gastritis due to H. pylori based on pathology 02/15/2017, on clarithromycin based regimen (02/20/2017-), [id number] - bleeding from GT site, and blood clots in tube feed - resolved - recurrent CVA - possible aspiration, improved - encephalopathy due to CVA. CSF from 01/19/2017: WBC=3, RBC=0, glu 53, pro=61, CSF ([place] serology negative, HSV negative, cocci CF negative, encephalitis meningitis panel could not be done due to a lack of sample), serum ([place] PCR negative, crypto antigen negative, cocci CF negative, histo CF negative). my order of crypto in CSF was cancelled and no reason given - bacteremia due to CoNS, probable contaminant. 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 pylori (02/20/2017-), clarithro, amoxicillin and lansoprazole. Planned through 03/06/2017 - amoxicillin covers UTI caused by proteus. Pt took IV ceftriaxone previously (-02/19/2017) Management d/w NARESH Sheridan and Dr. Carbajal Problems: Consultation Date/Type/Reason Admit Date/Time Jan 16, 2017 at 15:19 Initial Consult Date 01/17/17 Type of Consultation: Infectious Disease Referring Provider: LAWRENCE PICKERING 24 HR Interval Summary Free Text/Dictation No acute issues. Pt sleeping all morning per d/w nursing staff. Subjective hx not possible: pt non-verbal Exam/Review of Systems Vital Signs Vitals Vital Signs Date Time Temp Pulse Resp B/P Pulse Ox O2 Delivery O2 Flow Rate FiO2 02/26/17 11:20 97.6 18 02/26/17 10:57 78 102/55 02/26/17 07:38 96 21 Intake and Output 02/25/17 02/25/17 02/26/17 15:00 23:00 07:00 Intake Total 1120 ml Output Total 450 ml Balance 670 ml Exam Constitutional: frail, non-verbal, Other (lethargic) Head: atraumatic, normocephalic Respiratory: clear to auscultation No wheezing Cardiovascular: irregular rhythm Gastrointestinal: other (G-tube intact), soft, No tender Genitourinary - Female: other (Lees catheter present) Musculoskeletal: nl extremities to inspection, normal pulses Extremities: No edema, Other (L heel eschar and new dressing is being applied by RN) Neurological: lethargic Skin: nl turgor Results Result Diagram: 02/26/17 0630 02/26/17 0630 Results 24 hrs Laboratory Tests Test 02/25/17 11:52 02/26/17 06:30 Bedside Glucose 124 White Blood Count 8.9 Red Blood Count 3.93 L Hemoglobin 10.7 L Hematocrit 33.0 L Mean Corpuscular Volume 84.0 Mean Corpuscular Hemoglobin 27.2 L Mean Corpuscular Hemoglobin Concent 32.4 Red Cell Distribution Width 16.9 H Platelet Count 410 Mean Platelet Volume 12.3 H Neutrophils % 67.7 Lymphocytes % 19.8 Monocytes % 7.9 Eosinophils % 2.6 Basophils % 1.0 Nucleated Red Blood Cells % 0.0 Neutrophils # (Manual) 6.0 Lymphocytes # 1.8 Monocytes # 0.7 Eosinophils # 0.2 Basophils # 0.1 Nucleated Red Blood Cells # 0.0 Sodium Level 146 H Potassium Level 4.2 Chloride Level 102 Carbon Dioxide Level 27 Anion Gap 21 H Blood Urea Nitrogen 26 H Creatinine 0.90 Glucose Level 111 Calcium Level 10.0 Medications Medications Current Medications Miscellaneous Information 1 ea NOTE XX ; Start 01/17/17 at 10:00 Glucose (Glutose) 15 gm Q15M PRN PO DECREASED GLUCOSE; Start 01/17/17 at 10:00 Glucose (Glutose) 22.5 gm Q15M PRN PO DECREASED GLUCOSE; Start 01/17/17 at 10: 00 Dextrose (D50w Syringe) 25 ml Q15M PRN IV DECREASED GLUCOSE; Start 01/17/17 at 10:00 Dextrose (D50w Syringe) 50 ml Q15M PRN IV DECREASED GLUCOSE; Start 01/17/17 at 10:00 Glucagon (Glucagen) 1 mg Q15M PRN IM DECREASED GLUCOSE; Start 01/17/17 at 10:00 Glucose (Glutose) 15 gm Q15M PRN BUCCAL DECREASED GLUCOSE; Start 01/17/17 at 10 :00 Collagenase (Santyl) 1 applic DAILY TOP Last administered on 02/26/17 11:25; Admin Dose 1 APPLIC; Start 01/17/17 at 21:00 IV Flush (NS 10 ml) 10 ml PRN PRN IV IV PROTOCOL Last administered on 21:45; Admin Dose 10 ML; Start 01/22/17 at 12:00 Miscellaneous Information (Pending Santyl Order For Wound Care) This patient dunaway... PRN PRN XX WOUND CARE; Start 01/24/17 at 07:30 Bisacodyl (Dulcolax Supp) 10 mg DAILY PRN [place] CONSTIPATION Last administered on 02/24/17 15:02; Admin Dose 10 MG; Start 01/25/17 at 16:30 Acetaminophen (Tylenol Liquid) 650 mg Q4H PRN NGT PAIN AND OR ELEVATED TEMP Last administered on 02/25/17 11:00; Admin Dose 650 MG; Start 01/26/17 at 09:00 Metoprolol Tartrate (Lopressor) 2.5 mg Q4H PRN IV HR > 110 Last administered on 02/23/17 03:58; Admin Dose 2.5 MG; Start 01/26/17 at 15:00 Midodrine (Proamatine) 5 mg Q8 PRN GTB BLOOD PRESSURE SUPPORT Last administered on 02/24/17 00:52; Admin Dose 5 MG; Start 01/28/17 at 16:30 Nystatin (Nystatin Powder) 1 applic BID TOP Last administered on 02/26/17 09: 00; Admin Dose 1 APPLIC; Start 02/04/17 at 12:00 Eye Lubricant (Artificial Tears Oph) 2 drop Q6H PRN BOTH EYES DRY EYES Last administered on 02/25/17 21:40; Admin Dose 2 DROP; Start 02/13/17 at 15:30 Nystatin (Nystatin Susp) 5 ml QID GTB Last administered on 02/26/17 10:53; Admin Dose 5 ML; Start 02/18/17 at 08:00 Lansoprazole (Prevacid) 30 mg BID@,18 GTB Last administered on 02/26/17 06: 29; Admin Dose 30 MG; Start 02/18/17 at 18:00 Amoxicillin (Amoxicillin Susp) 1,000 mg BID GTB Last administered on 02/25/17 21:39; Admin Dose 1,000 MG; Start 02/20/17 at 21:00; Stop 03/06/17 at 20:59 Clarithromycin (Biaxin) 500 mg BID GTB Last administered on 02/26/17 10:53; Admin Dose 500 MG; Start 02/20/17 at 21:00 Metoprolol Tartrate (Lopressor) 12.5 mg BID GTB Last administered on 02/26/17 10:59; Admin Dose 12.5 MG; Start 02/22/17 at 22:30 Apixaban (Eliquis) 5 mg BID GTB Last administered on 02/26/17 10:53; Admin Dose 5 MG; Start 02/22/17 at 22:00 TYE CARBAJAL M.D. 02/27/172040: Assessment/Plan Assessment/Plan Additional Assessment/Plan Raven attestation: I discussed the management with LUNA Schmitz and agree with above. Exam/Review of Systems Results Result Diagram: 02/26/1762902/26/17629 GIRISH SCHMITZ NP Feb 26, 2017 11:35 TYE CARBAJAL M.D. Feb 27, 2017 20:41
[2017-02-26] MEDS: AMOXICILLIN (50 MG/ML PO SYG) GTB SCH ×2 (13:52→21:38)
--- NOTE | 2017-02-26 14:26 | PN ---
Date/Time of Note Date/Time of Note DATE: 02/26/17 TIME: 14:23 Assessment/Plan VTE Prophylaxis VTE Prophylaxis Intervention: SCD's Lines/Catheters IV C[facility] Type [facility] PICC Line Central line still needed: Yes Urinary Cath still in place: Yes Reason Cath still needed: urinary retention Assessment/Plan Chief Complaint/Hosp Course Continue patient continues to have atrial fibrillation better controlled rate, status post digoxin IV today , continue telemetry monitoring, no change in neuro status patient remains Assessment/Plan - Urinary tract infection, continue antibiotics per ID. Dr. Abarca is following in an infection disease consultation. - Gastritis due to H. pylori, continue triple therapy per H. pylori eradication - Possible bleeding from G-tube and hematuria, resolved status post EGD was notion of gastritis, continue Protonix. - Bilateral thalamic infarctions. - Dysphagia, status post G-tube placement by Dr. Garcia. - Atrial fibrillation with rapid ventricular response. Dr. Armenta is following and cardiology consultation. Continue Eliquis. - Thrombosis of the bilateral cephalic veins. - Acute kidney injury, resolved. - History of CVA - History of hyperlipidemia Further recommendations based on clinical course. Plan of care discussed with Dr. Valdovinos. Problems: Exam/Review of Systems Vital Signs Vitals Vital Signs Date Time Temp Pulse Resp B/P Pulse Ox O2 Delivery O2 Flow Rate FiO2 02/26/17 13:46 72 16 98 21 02/26/17 11:20 97.6 02/26/17 10:57 102/55 Intake and Output 02/25/17 02/25/17 02/26/17 15:00 23:00 07:00 Intake Total 1120 ml Output Total 450 ml Balance 670 ml Exam Constitutional: frail, non-verbal Head: normocephalic Neck: supple Respiratory: normal air movement Cardiovascular: irregular rhythm Gastrointestinal: non-tender, other (G-tube), soft Genitourinary - Female: other (Lees catheter) Musculoskeletal: muscle weakness Neurological: focal weakness Results Result Diagram: 02/26/17 0630 02/26/17 0630 Results 24 hrs Laboratory Tests Test 02/26/17 06:30 02/26/17 12:44 White Blood Count 8.9 Red Blood Count 3.93 L Hemoglobin 10.7 L Hematocrit 33.0 L Mean Corpuscular Volume 84.0 Mean Corpuscular Hemoglobin 27.2 L Mean Corpuscular Hemoglobin Concent 32.4 Red Cell Distribution Width 16.9 H Platelet Count 410 Mean Platelet Volume 12.3 H Neutrophils % 67.7 Lymphocytes % 19.8 Monocytes % 7.9 Eosinophils % 2.6 Basophils % 1.0 Nucleated Red Blood Cells % 0.0 Neutrophils # (Manual) 6.0 Lymphocytes # 1.8 Monocytes # 0.7 Eosinophils # 0.2 Basophils # 0.1 Nucleated Red Blood Cells # 0.0 Sodium Level 146 H Potassium Level 4.2 Chloride Level 102 Carbon Dioxide Level 27 Anion Gap 21 H Blood Urea Nitrogen 26 H Creatinine 0.90 Glucose Level 111 Calcium Level 10.0 Bedside Glucose 123 Medications Medications Current Medications Miscellaneous Information 1 ea NOTE XX ; Start 01/17/17 at 10:00 Glucose (Glutose) 15 gm Q15M PRN PO DECREASED GLUCOSE; Start 01/17/17 at 10:00 Glucose (Glutose) 22.5 gm Q15M PRN PO DECREASED GLUCOSE; Start 01/17/17 at 10: 00 Dextrose (D50w Syringe) 25 ml Q15M PRN IV DECREASED GLUCOSE; Start 01/17/17 at 10:00 Dextrose (D50w Syringe) 50 ml Q15M PRN IV DECREASED GLUCOSE; Start 01/17/17 at 10:00 Glucagon (Glucagen) 1 mg Q15M PRN IM DECREASED GLUCOSE; Start 01/17/17 at 10:00 Glucose (Glutose) 15 gm Q15M PRN BUCCAL DECREASED GLUCOSE; Start 01/17/17 at 10 :00 Collagenase (Santyl) 1 applic DAILY TOP Last administered on 02/26/17 11:25; Admin Dose 1 APPLIC; Start 01/17/17 at 21:00 IV Flush (NS 10 ml) 10 ml PRN PRN IV IV PROTOCOL Last administered on 21:45; Admin Dose 10 ML; Start 01/22/17 at 12:00 Miscellaneous Information (Pending Santyl Order For Wound Care) This patient dunaway... PRN PRN XX WOUND CARE; Start 01/24/17 at 07:30 Bisacodyl (Dulcolax Supp) 10 mg DAILY PRN [place] CONSTIPATION Last administered on 02/24/17 15:02; Admin Dose 10 MG; Start 01/25/17 at 16:30 Acetaminophen (Tylenol Liquid) 650 mg Q4H PRN NGT PAIN AND OR ELEVATED TEMP Last administered on 02/25/17 11:00; Admin Dose 650 MG; Start 01/26/17 at 09:00 Metoprolol Tartrate (Lopressor) 2.5 mg Q4H PRN IV HR > 110 Last administered on 02/23/17 03:58; Admin Dose 2.5 MG; Start 01/26/17 at 15:00 Midodrine (Proamatine) 5 mg Q8 PRN GTB BLOOD PRESSURE SUPPORT Last administered on 02/24/17 00:52; Admin Dose 5 MG; Start 01/28/17 at 16:30 Nystatin (Nystatin Powder) 1 applic BID TOP Last administered on 02/26/17 09: 00; Admin Dose 1 APPLIC; Start 02/04/17 at 12:00 Eye Lubricant (Artificial Tears Oph) 2 drop Q6H PRN BOTH EYES DRY EYES Last administered on 02/25/17 21:40; Admin Dose 2 DROP; Start 02/13/17 at 15:30 Nystatin (Nystatin Susp) 5 ml QID GTB Last administered on 02/26/17 13:52; Admin Dose 5 ML; Start 02/18/17 at 08:00 Lansoprazole (Prevacid) 30 mg BID@,18 GTB Last administered on 02/26/17 06: 29; Admin Dose 30 MG; Start 02/18/17 at 18:00 Amoxicillin (Amoxicillin Susp) 1,000 mg BID GTB Last administered on 02/26/17 13:52; Admin Dose 1,000 MG; Start 02/20/17 at 21:00; Stop 03/06/17 at 20:59 Clarithromycin (Biaxin) 500 mg BID GTB Last administered on 02/26/17 10:53; Admin Dose 500 MG; Start 02/20/17 at 21:00 Metoprolol Tartrate (Lopressor) 12.5 mg BID GTB Last administered on 02/26/17 10:59; Admin Dose 12.5 MG; Start 02/22/17 at 22:30 Apixaban (Eliquis) 5 mg BID GTB Last administered on 02/26/17 10:53; Admin Dose 5 MG; Start 02/22/17 at 22:00 LAWRENCE PICKERING Feb 26, 2017 14:26
[2017-02-26] MEDS: ARTIFICIAL TEARS 15 ML OPH BOTH EYES PRN (21:38)
[2017-02-27] VITALS (10 sets, daily range): BP systolic 91–112; BP diastolic 49–59; PULSE 66–81; RESP 18–19
[2017-02-27] MEDS: LEVALBUTEROL (NEB) 0.63 MG/3 ML AMP HHN SCH ×4 (01:52→20:05)
[2017-02-27] MEDS: LANSOPRAZOLE 30 MG CAP GTB SCH ×2 (06:00→17:33)
[2017-02-27 06:54] LABS: BASOPHIL # 0.1 10^3/ul (0.0-0.1); BASOPHILS % 1.1 % (0.0-2.0); EOSINOPHILS # 0.2 10^3/ul (0.0-0.5); EOSINOPHILS % 2.7 % (0.0-7.0); HEMOGLOBIN 10.4 g/dl (12.0-16.0); LYMPHOCYTES # 1.7 10^3/ul (0.8-2.9); LYMPHOCYTES % 19.2 % (15.0-51.0); MEAN CORPUSCULAR HEMOGLOBIN 26.7 pg (29.0-33.0); MEAN CORPUSCULAR HGB CONC 31.5 g/dl (32.0-37.0); MEAN CORPUSCULAR VOLUME 84.6 fl (82.0-101.0); MEAN PLATELET VOLUME 12.8 fl (7.4-10.4); MONOCYTE # 0.6 10^3/ul (0.3-0.9); MONOCYTES % 6.4 % (0.0-11.0); PLATELET COUNT 418 10^3/UL (140-415); RED CELL DISTRIBUTION WIDTH 17.4 % (11.5-14.5)
[2017-02-27 07:15] LABS: CALCIUM 9.9 mg/dl (8.4-10.2); CREATININE 0.83 mg/dl (0.44-1.00); POTASSIUM 4.2 mmol/L (3.5-5.1)
[2017-02-27] MEDS: CLARITHROMYCIN 500 MG TAB GTB SCH ×2 (08:35→20:41)
[2017-02-27] MEDS: APIXABAN 5 MG TABLET GTB SCH ×2 (08:36→20:41)
[2017-02-27] MEDS: METOPROLOL 25 MG TAB GTB SCH ×2 (08:37→20:42)
[2017-02-27] MEDS: NYSTATIN SUSP 5 ML CUP GTB SCH ×4 (08:38→20:42)
[2017-02-27] MEDS: AMOXICILLIN (50 MG/ML PO SYG) GTB SCH ×2 (08:39→20:42)
[2017-02-27] MEDS: NYSTATIN 30 GM POWDER BTL TOP SCH ×2 (09:30→20:42)
[2017-02-27] MEDS: COLLAGENASE 30 GM TUBE TOP SCH (09:30)
--- NOTE | 2017-02-27 12:11 | CONS ---
Date/Time of Note Date/Time of Note DATE: 02/27/17 TIME: 12:10 Assessment/Plan Assessment/Plan Additional Assessment/Plan 1. AF-mainly rate controlled better now - will hold off on pacer given overall state. STABLE on tele - no intervention planned - RATE CONTROLLED. no new episodes of abril now. NO PAUSES NOTED now. 2.Hypotension-now improved on midodrine - stable - Rx as needed, Borderline - tolerating feeds now. BETTER. 3.Encephalopathy/ams - multifactorial, no change noted. UNCHANGED 4.coagulopathy-now decreased with coumadin held - on lovenox - no signs of bleeding now. STABLE. 5. Acute Renal failure-? secondary to vanc - will monitor now 6.Leukocytosis - improved with therapy. 7. Cardiomyopathy-EF 45% - euvolemic by exam. NO INDICATION FOR PACER/ICD now. 8. Cephalic vein thrombosis 9. Dysphagia s/p PEG - Rx with meds now Consultation Date/Type/Reason Admit Date/Time Jan 16, 2017 at 15:19 Initial Consult Date 01/26/17 Type of Consultation: Infectious Disease Referring Provider: LAWRENCE PICKERING 24 HR Interval Summary Free Text/Dictation NO acute events - rate well rx - no pauses now ROS: No fever, no chills, no nausea, no vomiting, no diarrhea/constipation No recent weight changes No chest pain, no PND, no orthopnea No dizziness, blurred vision No thirst, no heat or cold intolerance (per nurse) Exam/Review of Systems Vital Signs Vitals Vital Signs Date Time Temp Pulse Resp B/P Pulse Ox O2 Delivery O2 Flow Rate FiO2 02/27/17 11:13 97.6 69 18 91/53 96 02/27/17 07:30 21 02/27/17 04:00 Room Air Intake and Output 02/26/17 02/26/17 02/27/17 15:00 23:00 07:00 Intake Total 1070 ml Output Total 500 ml Balance 570 ml Exam General: WN/WD/NAD, AOx 0 HEENT: Unicetric/atraumatic/EOMI (does not follow commands) NECK: JVD elevated, no thyromegaly Lymph: no lymphadenopathy HEART: Ir Iregular with no S3, II/ systolic murmur at apex LUNGS: Coarse sounds ABD: soft, NT, ND, +BS : Intact Neuro: non focal SKIN: chronic changes EXT: trace edema Results Result Diagram: 02/27/1752602/27/17526 Results 24 hrs Laboratory Tests Test 02/26/17 12:44 02/26/17 18:13 02/27/17 05:27 Bedside Glucose 123 110 White Blood Count 9.0 Red Blood Count 3.90 L Hemoglobin 10.4 L Hematocrit 33.0 L Mean Corpuscular Volume 84.6 Mean Corpuscular Hemoglobin 26.7 L Mean Corpuscular Hemoglobin Concent 31.5 L Red Cell Distribution Width 17.4 H Platelet Count 418 H Mean Platelet Volume 12.8 H Neutrophils % 70.0 Lymphocytes % 19.2 Monocytes % 6.4 Eosinophils % 2.7 Basophils % 1.1 Nucleated Red Blood Cells % 0.0 Neutrophils # (Manual) 6.3 Lymphocytes # 1.7 Monocytes # 0.6 Eosinophils # 0.2 Basophils # 0.1 Nucleated Red Blood Cells # 0.0 Sodium Level 146 H Potassium Level 4.2 Chloride Level 103 Carbon Dioxide Level 27 Anion Gap 20 H Blood Urea Nitrogen 24 H Creatinine 0.83 Glucose Level 100 Calcium Level 9.9 Medications Medications Current Medications Miscellaneous Information 1 ea NOTE XX ; Start 01/17/17 at 10:00 Glucose (Glutose) 15 gm Q15M PRN PO DECREASED GLUCOSE; Start 01/17/17 at 10:00 Glucose (Glutose) 22.5 gm Q15M PRN PO DECREASED GLUCOSE; Start 01/17/17 at 10: 00 Dextrose (D50w Syringe) 25 ml Q15M PRN IV DECREASED GLUCOSE; Start 01/17/17 at 10:00 Dextrose (D50w Syringe) 50 ml Q15M PRN IV DECREASED GLUCOSE; Start 01/17/17 at 10:00 Glucagon (Glucagen) 1 mg Q15M PRN IM DECREASED GLUCOSE; Start 01/17/17 at 10:00 Glucose (Glutose) 15 gm Q15M PRN BUCCAL DECREASED GLUCOSE; Start 01/17/17 at 10 :00 Collagenase (Santyl) 1 applic DAILY TOP Last administered on 02/27/17 09:30; Admin Dose 1 APPLIC; Start 01/17/17 at 21:00 IV Flush (NS 10 ml) 10 ml PRN PRN IV IV PROTOCOL Last administered on 21:45; Admin Dose 10 ML; Start 01/22/17 at 12:00 Miscellaneous Information (Pending Santyl Order For Wound Care) This patient dunaway... PRN PRN XX WOUND CARE; Start 01/24/17 at 07:30 Bisacodyl (Dulcolax Supp) 10 mg DAILY PRN [place] CONSTIPATION Last administered on 02/24/17 15:02; Admin Dose 10 MG; Start 01/25/17 at 16:30 Acetaminophen (Tylenol Liquid) 650 mg Q4H PRN NGT PAIN AND OR ELEVATED TEMP Last administered on 02/25/17 11:00; Admin Dose 650 MG; Start 01/26/17 at 09:00 Metoprolol Tartrate (Lopressor) 2.5 mg Q4H PRN IV HR > 110 Last administered on 02/23/17 03:58; Admin Dose 2.5 MG; Start 01/26/17 at 15:00 Midodrine (Proamatine) 5 mg Q8 PRN GTB BLOOD PRESSURE SUPPORT Last administered on 02/24/17 00:52; Admin Dose 5 MG; Start 01/28/17 at 16:30 Nystatin (Nystatin Powder) 1 applic BID TOP Last administered on 02/27/17 09: 30; Admin Dose 1 APPLIC; Start 02/04/17 at 12:00 Eye Lubricant (Artificial Tears Oph) 2 drop Q6H PRN BOTH EYES DRY EYES Last administered on 02/26/17 21:38; Admin Dose 2 DROP; Start 02/13/17 at 15:30 Nystatin (Nystatin Susp) 5 ml QID GTB Last administered on 02/27/17 08:38; Admin Dose 5 ML; Start 02/18/17 at 08:00 Lansoprazole (Prevacid) 30 mg BID@,18 GTB Last administered on 02/27/17 06: 00; Admin Dose 30 MG; Start 02/18/17 at 18:00 Amoxicillin (Amoxicillin Susp) 1,000 mg BID GTB Last administered on 02/27/17 08:39; Admin Dose 1,000 MG; Start 02/20/17 at 21:00; Stop 03/06/17 at 20:59 Clarithromycin (Biaxin) 500 mg BID GTB Last administered on 02/27/17 08:35; Admin Dose 500 MG; Start 02/20/17 at 21:00 Metoprolol Tartrate (Lopressor) 12.5 mg BID GTB Last administered on 02/27/17 08:37; Admin Dose 12.5 MG; Start 02/22/17 at 22:30 Apixaban (Eliquis) 5 mg BID GTB Last administered on 02/27/17 08:36; Admin Dose 5 MG; Start 02/22/17 at 22:00 YAJAIRA ALVAREZ MD Feb 27, 2017 12:11
--- NOTE | 2017-02-27 13:50 | PN ---
Date/Time of Note Date/Time of Note DATE: 02/27/17 TIME: 13:43 Assessment/Plan VTE Prophylaxis VTE Prophylaxis Intervention: other Lines/Catheters IV Catheter Type (from [facility]): PICC Line Central line still needed: Yes Urinary Cath still in place: Yes Reason Cath still needed: urinary retention Assessment/Plan Assessment/Plan - Urinary tract infection, continue antibiotics per ID. Dr. Abarca is following in an infection disease consultation. - Gastritis due to H. pylori, continue triple therapy per H. pylori eradication - Possible bleeding from G-tube and hematuria, resolved status post EGD was notion of gastritis, continue Protonix. - Bilateral thalamic infarctions. - Dysphagia, status post G-tube placement by Dr. Garcia. - Atrial fibrillation with rapid ventricular response. Dr. Armenta is following and cardiology consultation. Continue Eliquis. - Thrombosis of the bilateral cephalic veins. - Acute kidney injury, resolved. - History of CVA - History of hyperlipidemia Further recommendations based on clinical course. Plan of care discussed with Dr. Valdovinos. Subjective 24 Hr Interval Summary Free Text/Dictation nad, afebrile, Continue patient continues to have atrial fibrillation better controlled rate, continue telemetry monitoring, no change in neuro status patient remains same. ambulates withPT- 2 person assist- pt family at side- all Qs answered. ENT: no complaints Respiratory: no complaints Cardiovascular: no complaints Gastrointestinal: no complaints Exam/Review of Systems Vital Signs Vitals Vital Signs Date Time Temp Pulse Resp B/P Pulse Ox O2 Delivery O2 Flow Rate FiO2 02/27/17 13:29 57 18 99 21 02/27/17 11:13 97.6 91/53 02/27/17 04:00 Room Air Intake and Output 02/26/17 02/26/17 02/27/17 15:00 23:00 07:00 Intake Total 1070 ml Output Total 500 ml Balance 570 ml Exam Constitutional: alert, well developed Respiratory: diminished breath sounds Cardiovascular: irregular rhythm, other (afib, ) Gastrointestinal: non-tender, soft Musculoskeletal: muscle weakness Extremities: normal pulses Neurological: other Results Result Diagram: 02/27/17 0527 02/27/17 0527 Results 24 hrs Laboratory Tests Test 02/26/17 18:13 02/27/17 05:27 Bedside Glucose 110 White Blood Count 9.0 Red Blood Count 3.90 L Hemoglobin 10.4 L Hematocrit 33.0 L Mean Corpuscular Volume 84.6 Mean Corpuscular Hemoglobin 26.7 L Mean Corpuscular Hemoglobin Concent 31.5 L Red Cell Distribution Width 17.4 H Platelet Count 418 H Mean Platelet Volume 12.8 H Neutrophils % 70.0 Lymphocytes % 19.2 Monocytes % 6.4 Eosinophils % 2.7 Basophils % 1.1 Nucleated Red Blood Cells % 0.0 Neutrophils # (Manual) 6.3 Lymphocytes # 1.7 Monocytes # 0.6 Eosinophils # 0.2 Basophils # 0.1 Nucleated Red Blood Cells # 0.0 Sodium Level 146 H Potassium Level 4.2 Chloride Level 103 Carbon Dioxide Level 27 Anion Gap 20 H Blood Urea Nitrogen 24 H Creatinine 0.83 Glucose Level 100 Calcium Level 9.9 Medications Medications Current Medications Miscellaneous Information 1 ea NOTE XX ; Start 01/17/17 at 10:00 Glucose (Glutose) 15 gm Q15M PRN PO DECREASED GLUCOSE; Start 01/17/17 at 10:00 Glucose (Glutose) 22.5 gm Q15M PRN PO DECREASED GLUCOSE; Start 01/17/17 at 10: 00 Dextrose (D50w Syringe) 25 ml Q15M PRN IV DECREASED GLUCOSE; Start 01/17/17 at 10:00 Dextrose (D50w Syringe) 50 ml Q15M PRN IV DECREASED GLUCOSE; Start 01/17/17 at 10:00 Glucagon (Glucagen) 1 mg Q15M PRN IM DECREASED GLUCOSE; Start 01/17/17 at 10:00 Glucose (Glutose) 15 gm Q15M PRN BUCCAL DECREASED GLUCOSE; Start 01/17/17 at 10 :00 Collagenase (Santyl) 1 applic DAILY TOP Last administered on 02/27/17 09:30; Admin Dose 1 APPLIC; Start 01/17/17 at 21:00 IV Flush (NS 10 ml) 10 ml PRN PRN IV IV PROTOCOL Last administered on 21:45; Admin Dose 10 ML; Start 01/22/17 at 12:00 Miscellaneous Information (Pending Santyl Order For Wound Care) This patient udnaway... PRN PRN XX WOUND CARE; Start 01/24/17 at 07:30 Bisacodyl (Dulcolax Supp) [address] CONSTIPATION Last administered on 02/24/17 15:02; Admin Dose 10 MG; Start 01/25/17 at 16:30 Acetaminophen (Tylenol Liquid) 650 mg Q4H PRN NGT PAIN AND OR ELEVATED TEMP Last administered on 02/25/17 11:00; Admin Dose 650 MG; Start 01/26/17 at 09:00 Metoprolol Tartrate (Lopressor) 2.5 mg Q4H PRN IV HR > 110 Last administered on 02/23/17 03:58; Admin Dose 2.5 MG; Start 01/26/17 at 15:00 Midodrine (Proamatine) 5 mg Q8 PRN GTB BLOOD PRESSURE SUPPORT Last administered on 02/24/17 00:52; Admin Dose 5 MG; Start 01/28/17 at 16:30 Nystatin (Nystatin Powder) 1 applic BID TOP Last administered on 02/27/17 09: 30; Admin Dose 1 APPLIC; Start 02/04/17 at 12:00 Eye Lubricant (Artificial Tears Oph) 2 drop Q6H PRN BOTH EYES DRY EYES Last administered on 02/26/17 21:38; Admin Dose 2 DROP; Start 02/13/17 at 15:30 Nystatin (Nystatin Susp) 5 ml QID GTB Last administered on 02/27/17 08:38; Admin Dose 5 ML; Start 02/18/17 at 08:00 Lansoprazole (Prevacid) 30 mg BID@,18 GTB Last administered on 02/27/17 06: 00; Admin Dose 30 MG; Start 02/18/17 at 18:00 Amoxicillin (Amoxicillin Susp) 1,000 mg BID GTB Last administered on 02/27/17 08:39; Admin Dose 1,000 MG; Start 02/20/17 at 21:00; Stop 03/06/17 at 20:59 Clarithromycin (Biaxin) 500 mg BID GTB Last administered on 02/27/17 08:35; Admin Dose 500 MG; Start 02/20/17 at 21:00 Metoprolol Tartrate (Lopressor) 12.5 mg BID GTB Last administered on 02/27/17 08:37; Admin Dose 12.5 MG; Start 02/22/17 at 22:30 Apixaban (Eliquis) 5 mg BID GTB Last administered on 02/27/17 08:36; Admin Dose 5 MG; Start 02/22/17 at 22:00 ALEXIS NAJERA Feb 27, 2017 13:50
[2017-02-27] MEDS: ARTIFICIAL TEARS 15 ML OPH BOTH EYES PRN (17:40)
--- NOTE | 2017-02-27 20:42 | CONS ---
Date/Time of Note Date/Time of Note DATE: 02/27/17 TIME: 20:42 Assessment/Plan Assessment/Plan Chief Complaint/Hosp Course Assessment/impression: - s/p UTI due to proteus - diffuse moderate degree of gastritis s/p EGD 02/15/2017 - gastritis due to H. pylori based on pathology 02/15/2017, on clarithromycin based regimen (02/20/2017-), [id number] - bleeding from GT site, and blood clots in tube feed - resolved - recurrent CVA - possible aspiration, improved - encephalopathy due to CVA. CSF from 01/19/2017: WBC=3, RBC=0, glu 53, pro=61, CSF ([place] serology negative, HSV negative, cocci CF negative, encephalitis meningitis panel could not be done due to a lack of sample), serum ([place] PCR negative, crypto antigen negative, cocci CF negative, histo CF negative). my order of crypto in CSF was cancelled and no reason given - bacteremia due to CoNS, probable contaminant. 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 pylori (02/20/2017-), clarithro, amoxicillin and lansoprazole. Planned through 03/06/2017 - amoxicillin covers UTI caused by proteus. Pt took IV ceftriaxone previously (-02/19/2017) management d/w Pt's Problems: Consultation Date/Type/Reason Admit Date/Time Jan 16, 2017 at 15:19 Initial Consult Date 01/17/17 Type of Consultation: Infectious Disease Referring Provider: LAWRENCE PICKERING 24 HR Interval Summary Subjective hx not possible: pt non-verbal (nods or shakes her head), other ( denies pain) Detailed Summary Gastrointestinal: No pain Exam/Review of Systems Vital Signs Vitals Vital Signs Date Time Temp Pulse Resp B/P Pulse Ox O2 Delivery O2 Flow Rate FiO2 02/27/17 20:06 69 16 98 21 02/27/17 19:47 98.3 95/49 02/27/17 04:00 Room Air Intake and Output 02/26/17 02/26/17 02/27/17 15:00 23:00 07:00 Intake Total 1070 ml Output Total 500 ml Balance 570 ml Exam Constitutional: non-verbal Psych: confusion Head: normocephalic Eyes: nl conjunctiva, other (L ptosis) ENMT: nl external ears & nose, nl nasal mucosa & septum Respiratory: diminished breath sounds Cardiovascular: nl pulses, regular rate and rhythm Gastrointestinal: non-tender, other (GT), soft Musculoskeletal: nl extremities to inspection Extremities: No edema Neurological: confused, lethargic Skin: other (surgical sites of LLE are well healing) Results Result Diagram: 02/27/1727 02/27/1727 Results 24 hrs Laboratory Tests Test 02/27/17 01:29 02/27/17 05:27 Bedside Glucose 131 White Blood Count 9.0 Red Blood Count 3.90 L Hemoglobin 10.4 L Hematocrit 33.0 L Mean Corpuscular Volume 84.6 Mean Corpuscular Hemoglobin 26.7 L Mean Corpuscular Hemoglobin Concent 31.5 L Red Cell Distribution Width 17.4 H Platelet Count 418 H Mean Platelet Volume 12.8 H Neutrophils % 70.0 Lymphocytes % 19.2 Monocytes % 6.4 Eosinophils % 2.7 Basophils % 1.1 Nucleated Red Blood Cells % 0.0 Neutrophils # (Manual) 6.3 Lymphocytes # 1.7 Monocytes # 0.6 Eosinophils # 0.2 Basophils # 0.1 Nucleated Red Blood Cells # 0.0 Sodium Level 146 H Potassium Level 4.2 Chloride Level 103 Carbon Dioxide Level 27 Anion Gap 20 H Blood Urea Nitrogen 24 H Creatinine 0.83 Glucose Level 100 Calcium Level 9.9 Medications Medications Current Medications Miscellaneous Information 1 ea NOTE XX ; Start 01/17/17 at 10:00 Glucose (Glutose) 15 gm Q15M PRN PO DECREASED GLUCOSE; Start 01/17/17 at 10:00 Glucose (Glutose) 22.5 gm Q15M PRN PO DECREASED GLUCOSE; Start 01/17/17 at 10: 00 Dextrose (D50w Syringe) 25 ml Q15M PRN IV DECREASED GLUCOSE; Start 01/17/17 at 10:00 Dextrose (D50w Syringe) 50 ml Q15M PRN IV DECREASED GLUCOSE; Start 01/17/17 at 10:00 Glucagon (Glucagen) 1 mg Q15M PRN IM DECREASED GLUCOSE; Start 01/17/17 at 10:00 Glucose (Glutose) 15 gm Q15M PRN BUCCAL DECREASED GLUCOSE; Start 01/17/17 at 10 :00 Collagenase (Santyl) 1 applic DAILY TOP Last administered on 02/27/17 09:30; Admin Dose 1 APPLIC; Start 01/17/17 at 21:00 IV Flush (NS 10 ml) 10 ml PRN PRN IV IV PROTOCOL Last administered on 21:45; Admin Dose 10 ML; Start 01/22/17 at 12:00 Miscellaneous Information (Pending Santyl Order For Wound Care) This patient dunaway... PRN PRN XX WOUND CARE; Start 01/24/17 at 07:30 Bisacodyl (Dulcolax Supp) 10 mg DAILY PRN [place] CONSTIPATION Last administered on 02/24/17 15:02; Admin Dose 10 MG; Start 01/25/17 at 16:30 Acetaminophen (Tylenol Liquid) 650 mg Q4H PRN NGT PAIN AND OR ELEVATED TEMP Last administered on 02/25/17 11:00; Admin Dose 650 MG; Start 01/26/17 at 09:00 Metoprolol Tartrate (Lopressor) 2.5 mg Q4H PRN IV HR > 110 Last administered on 02/23/17 03:58; Admin Dose 2.5 MG; Start 01/26/17 at 15:00 Midodrine (Proamatine) 5 mg Q8 PRN GTB BLOOD PRESSURE SUPPORT Last administered on 02/24/17 00:52; Admin Dose 5 MG; Start 01/28/17 at 16:30 Nystatin (Nystatin Powder) 1 applic BID TOP Last administered on 02/27/17 09: 30; Admin Dose 1 APPLIC; Start 02/04/17 at 12:00 Eye Lubricant (Artificial Tears Oph) 2 drop Q6H PRN BOTH EYES DRY EYES Last administered on 02/27/17 17:40; Admin Dose 2 DROP; Start 02/13/17 at 15:30 Nystatin (Nystatin Susp) 5 ml QID GTB Last administered on 02/27/17 17:33; Admin Dose 5 ML; Start 02/18/17 at 08:00 Lansoprazole (Prevacid) 30 mg BID@,18 GTB Last administered on 02/27/17 17: 33; Admin Dose 30 MG; Start 02/18/17 at 18:00 Amoxicillin (Amoxicillin Susp) 1,000 mg BID GTB Last administered on 02/27/17 08:39; Admin Dose 1,000 MG; Start 02/20/17 at 21:00; Stop 03/06/17 at 20:59 Clarithromycin (Biaxin) 500 mg BID GTB Last administered on 02/27/17 08:35; Admin Dose 500 MG; Start 02/20/17 at 21:00 Metoprolol Tartrate (Lopressor) 12.5 mg BID GTB Last administered on 02/27/17 08:37; Admin Dose 12.5 MG; Start 02/22/17 at 22:30 Apixaban (Eliquis) 5 mg BID GTB Last administered on 02/27/17 08:36; Admin Dose 5 MG; Start 02/22/17 at 22:00 TYE STYLES M.D. Feb 27, 2017 20:42
[2017-02-28] VITALS (12 sets, daily range): BP systolic 98–105; BP diastolic 48–64; PULSE 64–100; RESP 18–20
[2017-02-28] MEDS: LEVALBUTEROL (NEB) 0.63 MG/3 ML AMP HHN SCH ×2 (01:30→19:35)
[2017-02-28] MEDS: LANSOPRAZOLE 30 MG CAP GTB SCH (05:28)
[2017-02-28 07:07] LABS: BASOPHIL # 0.1 10^3/ul (0.0-0.1); BASOPHILS % 0.8 % (0.0-2.0); EOSINOPHILS # 0.2 10^3/ul (0.0-0.5); EOSINOPHILS % 1.8 % (0.0-7.0); HEMATOCRIT 33.6 % (37.0-47.0); HEMOGLOBIN 10.8 g/dl (12.0-16.0); LYMPHOCYTES # 1.5 10^3/ul (0.8-2.9); MEAN CORPUSCULAR HEMOGLOBIN 27.4 pg (29.0-33.0); MEAN CORPUSCULAR HGB CONC 32.1 g/dl (32.0-37.0); MEAN CORPUSCULAR VOLUME 85.3 fl (82.0-101.0); MEAN PLATELET VOLUME 12.6 fl (7.4-10.4); MONOCYTE # 0.7 10^3/ul (0.3-0.9); MONOCYTES % 6.7 % (0.0-11.0); NEUTROPHILS % 76.3 % (39.0-77.0); PLATELET COUNT 405 10^3/UL (140-415); RED BLOOD COUNT 3.94 10^6/ul (4.20-5.40); RED CELL DISTRIBUTION WIDTH 17.1 % (11.5-14.5); WHITE BLOOD COUNT 10.8 10^3/ul (4.8-10.8)
[2017-02-28 07:56] LABS: CALCIUM 9.9 mg/dl (8.4-10.2); CREATININE 0.82 mg/dl (0.44-1.00); POTASSIUM 4.1 mmol/L (3.5-5.1)
[2017-02-28] MEDS: COLLAGENASE 30 GM TUBE TOP SCH (09:00)
--- NOTE | 2017-02-28 09:39 | CONS ---
Date/Time of Note Date/Time of Note DATE: 02/28/17 TIME: 09:38 Assessment/Plan Assessment/Plan Additional Assessment/Plan 1. AF-mainly rate controlled better now - will hold off on pacer given overall state. STABLE on tele - no intervention planned - RATE CONTROLLED. no new episodes of bonnie now. NO PAUSES NOTED now. NO BONNIE EPISODES NOW. 2.Hypotension-now improved on midodrine - stable - Rx as needed, Borderline - tolerating feeds now. BETTER. 3.Encephalopathy/ams - multifactorial, no change noted. UNCHANGED 4.coagulopathy-now decreased with coumadin held - on lovenox - no signs of bleeding now. STABLE. 5. Acute Renal failure-? secondary to vanc - will monitor now 6.Leukocytosis - improved with therapy. 7. Cardiomyopathy-EF 45% - euvolemic by exam. NO INDICATION FOR PACER/ICD now. 8. Cephalic vein thrombosis 9. Dysphagia s/p PEG - Rx with meds now - now dispo planned Consultation Date/Type/Reason Admit Date/Time Jan 16, 2017 at 15:19 Initial Consult Date 01/26/17 Type of Consultation: Infectious Disease Referring Provider: LAWRENCE PICKERING 24 HR Interval Summary Free Text/Dictation No acute events - rate well controlled - no bonnie - med rx advised ROS: No fever, no chills, no nausea, no vomiting, no diarrhea/constipation No recent weight changes No chest pain, no PND, no orthopnea No dizziness, blurred vision No thirst, no heat or cold intolerance (per nurse) Exam/Review of Systems Vital Signs Vitals Vital Signs Date Time Temp Pulse Resp B/P Pulse Ox O2 Delivery O2 Flow Rate FiO2 02/28/17 08:02 81 02/28/17 07:46 97.5 20 104/48 96 02/28/17 01:31 21 02/27/17 04:00 Room Air Intake and Output 02/27/17 02/27/17 02/28/17 15:00 23:00 07:00 Intake Total 900 ml 1000 ml 950 ml Output Total 400 ml 450 ml 900 ml Balance 500 ml 550 ml 50 ml Exam General: WN/WD/NAD, AOx 0 HEENT: Unicetric/atraumatic/EOMI (does not follow commands) NECK: JVD elevated, no thyromegaly Lymph: no lymphadenopathy HEART: Ir Irregular with no S3, II/ systolic murmur at apex LUNGS: Coarse sounds ABD: soft, NT, ND, +BS : Intact Neuro: non focal SKIN: chronic changes EXT: trace edema Results Result Diagram: 02/28/17 0543 02/28/17 0545 Results 24 hrs Laboratory Tests Test 02/28/17 05:43 02/28/17 05:45 White Blood Count 10.8 Red Blood Count 3.94 L Hemoglobin 10.8 L Hematocrit 33.6 L Mean Corpuscular Volume 85.3 Mean Corpuscular Hemoglobin 27.4 L Mean Corpuscular Hemoglobin Concent 32.1 Red Cell Distribution Width 17.1 H Platelet Count 405 Mean Platelet Volume 12.6 H Neutrophils % 76.3 Lymphocytes % 14.0 L Monocytes % 6.7 Eosinophils % 1.8 Basophils % 0.8 Nucleated Red Blood Cells % 0.0 Neutrophils # (Manual) 8.3 H Lymphocytes # 1.5 Monocytes # 0.7 Eosinophils # 0.2 Basophils # 0.1 Nucleated Red Blood Cells # 0.0 Sodium Level 147 H Potassium Level 4.1 Chloride Level 104 Carbon Dioxide Level 25 Anion Gap 22 H Blood Urea Nitrogen 23 H Creatinine 0.82 Glucose Level 109 Calcium Level 9.9 Medications Medications Current Medications Miscellaneous Information 1 ea NOTE XX ; Start 01/17/17 at 10:00 Glucose (Glutose) 15 gm Q15M PRN PO DECREASED GLUCOSE; Start 01/17/17 at 10:00 Glucose (Glutose) 22.5 gm Q15M PRN PO DECREASED GLUCOSE; Start 01/17/17 at 10: 00 Dextrose (D50w Syringe) 25 ml Q15M PRN IV DECREASED GLUCOSE; Start 01/17/17 at 10:00 Dextrose (D50w Syringe) 50 ml Q15M PRN IV DECREASED GLUCOSE; Start 01/17/17 at 10:00 Glucagon (Glucagen) 1 mg Q15M PRN IM DECREASED GLUCOSE; Start 01/17/17 at 10:00 Glucose (Glutose) 15 gm Q15M PRN BUCCAL DECREASED GLUCOSE; Start 01/17/17 at 10 :00 Collagenase (Santyl) 1 applic DAILY TOP Last administered on 02/27/17t 09:30; Admin Dose 1 APPLIC; Start 01/17/17 at 21:00 IV Flush (NS 10 ml) 10 ml PRN PRN IV IV PROTOCOL Last administered on 21:45; Admin Dose 10 ML; Start 01/22/17 at 12:00 Miscellaneous Information (Pending [facility] Order For Wound Care) This patient dunaway... PRN PRN XX WOUND CARE; Start 01/24/17 at 07:30 Bisacodyl (Dulcolax Supp) 10 mg DAILY PRN [place] CONSTIPATION Last administered on 02/24/17 15:02; Admin Dose 10 MG; Start 01/25/17 at 16:30 Acetaminophen (Tylenol Liquid) 650 mg Q4H PRN NGT PAIN AND OR ELEVATED TEMP Last administered on 02/25/17 11:00; Admin Dose 650 MG; Start 01/26/17 at 09:00 Metoprolol Tartrate (Lopressor) 2.5 mg Q4H PRN IV HR > 110 Last administered on 02/23/17 03:58; Admin Dose 2.5 MG; Start 01/26/17 at 15:00 Midodrine (Proamatine) 5 mg Q8 PRN GTB BLOOD PRESSURE SUPPORT Last administered on 02/24/17 00:52; Admin Dose 5 MG; Start 01/28/17 at 16:30 Nystatin (Nystatin Powder) 1 applic BID TOP Last administered on 02/27/17 20: 42; Admin Dose 1 APPLIC; Start 02/04/17 at 12:00 Eye Lubricant (Artificial Tears Oph) 2 drop Q6H PRN BOTH EYES DRY EYES Last administered on 02/27/17 17:40; Admin Dose 2 DROP; Start 02/13/17 at 15:30 Nystatin (Nystatin Susp) 5 ml QID GTB Last administered on 02/27/17 20:42; Admin Dose 5 ML; Start 02/18/17 at 08:00 Lansoprazole (Prevacid) 30 mg BID@,18 GTB Last administered on 02/28/17 05: 28; Admin Dose 30 MG; Start 02/18/17 at 18:00 Amoxicillin (Amoxicillin Susp) 1,000 mg BID GTB Last administered on 02/27/17 20:42; Admin Dose 1,000 MG; Start 02/20/17 at 21:00; Stop 03/06/17 at 20:59 Clarithromycin (Biaxin) 500 mg BID GTB Last administered on 02/27/17 20:41; Admin Dose 500 MG; Start 02/20/17 at 21:00 Metoprolol Tartrate (Lopressor) 12.5 mg BID GTB Last administered on 02/27/17 08:37; Admin Dose 12.5 MG; Start 02/22/17 at 22:30 Apixaban (Eliquis) 5 mg BID GTB Last administered on 02/27/17 20:41; Admin Dose 5 MG; Start 02/22/17 at 22:00 YAJAIRA ALVAREZ MD Feb 28, 2017 09:39
[2017-02-28] MEDS: CLARITHROMYCIN 500 MG TAB GTB SCH ×2 (09:52→22:23)
[2017-02-28] MEDS: METOPROLOL 25 MG TAB GTB SCH ×2 (09:55→21:00)
[2017-02-28] MEDS: AMOXICILLIN (50 MG/ML PO SYG) GTB SCH ×2 (09:56→22:24)
[2017-02-28] MEDS: APIXABAN 5 MG TABLET GTB SCH ×2 (09:56→22:28)
[2017-02-28] MEDS: NYSTATIN SUSP 5 ML CUP GTB SCH ×2 (09:56→21:00)
[2017-02-28] MEDS: NYSTATIN 30 GM POWDER BTL TOP SCH ×2 (10:05→22:24)
--- NOTE | 2017-02-28 10:37 | CONS ---
[facility] HCIS Consult Follow up SOAP Patient Name: Nilda Mcmullen Unit Number: [id number] Date of : 1955 Patient Status: Admitted Inpatient Attending Doctor: Kana Valdovinos MD Edit: TYE CARBAJAL M.D. on 02/28/17 @ 15:29 Raven attestation: I discussed the management with LUNA De Jesus and agree with her note. Date/Time of Note Date/Time of Note DATE: 02/28/17 TIME: 10:33 Consult Date/Type/Reason Admit Date/Time Jan 16, 2017 at 15:19 Initial Consult Date 01/26/17 Type of Consultation: Infectious Disease Ordering Provider: LAWRENCE PICKERING Subjective Unable to provide, patient is nonverbal and sleeping Objective Vital Signs Date Time Temp Pulse Resp B/P Pulse Ox O2 Delivery O2 Flow Rate FiO2 02/28/17 08:02 81 02/28/17 07:46 97.5 20 104/48 96 02/28/17 01:31 21 02/27/17 04:00 Room Air Intake and Output 02/27/17 02/27/17 02/28/17 15:00 23:00 07:00 Intake Total 900 ml 1000 ml 950 ml Output Total 400 ml 450 ml 900 ml Balance 500 ml 550 ml 50 ml Exam Constitutional: frail, sleeping, unable to arouse Psych: unable to assess, sleeping Head: atraumatic, normocephalic ENMT: normal external ears & nose Respiratory: diminished breath sounds Cardiovascular: irregular rate and rhythm, tachycardic Gastrointestinal: soft, non-distended, non-tender, GT in place, TF infusing Genitourinary - pedersen catheter in place Musculoskeletal: normal extremities to inspection Extremities: warm, dry, no edema, palpable pulses, Piccline LUE, no e/o infection Skin: warm, dry , normal turgor, healed surgical scar LLE Results/Medications Result Diagram: 02/28/17 0543 02/28/17 0545 Results 24 hrs Laboratory Tests Test 02/28/17 05:43 02/28/17 05:45 White Blood Count 10.8 Red Blood Count 3.94 L Hemoglobin 10.8 L Hematocrit 33.6 L Mean Corpuscular Volume 85.3 Mean Corpuscular Hemoglobin 27.4 L Mean Corpuscular Hemoglobin Concent 32.1 Red Cell Distribution Width 17.1 H Platelet Count 405 Mean Platelet Volume 12.6 H Neutrophils % 76.3 Lymphocytes % 14.0 L Monocytes % 6.7 Eosinophils % 1.8 Basophils % 0.8 Nucleated Red Blood Cells % 0.0 Neutrophils # (Manual) 8.3 H Lymphocytes # 1.5 Monocytes # 0.7 Eosinophils # 0.2 Basophils # 0.1 Nucleated Red Blood Cells # 0.0 Sodium Level 147 H Potassium Level 4.1 Chloride Level 104 Carbon Dioxide Level 25 Anion Gap 22 H Blood Urea Nitrogen 23 H Creatinine 0.82 Glucose Level 109 Calcium Level 9.9 Medications Current Medications Miscellaneous Information 1 ea NOTE XX ; Start 01/17/17 at 10:00 Glucose (Glutose) 15 gm Q15M PRN PO DECREASED GLUCOSE; Start 01/17/17 at 10:00 Glucose (Glutose) 22.5 gm Q15M PRN PO DECREASED GLUCOSE; Start 01/17/17 at 10: 00 Dextrose (D50w Syringe) 25 ml Q15M PRN IV DECREASED GLUCOSE; Start 01/17/17 at 10:00 Dextrose (D50w Syringe) 50 ml Q15M PRN IV DECREASED GLUCOSE; Start 01/17/17 at 10:00 Glucagon (Glucagen) 1 mg Q15M PRN IM DECREASED GLUCOSE; Start 01/17/17 at 10:00 Glucose (Glutose) 15 gm Q15M PRN BUCCAL DECREASED GLUCOSE; Start 01/17/17 at 10 :00 Collagenase (Santyl) 1 applic DAILY TOP Last administered on 02/27/17 09:30; Admin Dose 1 APPLIC; Start 01/17/17 at 21:00 IV Flush (NS 10 ml) 10 ml PRN PRN IV IV PROTOCOL Last administered on 21:45; Admin Dose 10 ML; Start 01/22/17 at 12:00 Miscellaneous Information (Pending Santyl Order For Wound Care) This patient dunaway... PRN PRN XX WOUND CARE; Start 01/24/17 at 07:30 Bisacodyl (Dulcolax Supp) 10 mg DAILY PRN ME CONSTIPATION Last administered on 02/24/17 15:02; Admin Dose 10 MG; Start 01/25/17 at 16:30 Acetaminophen (Tylenol Liquid) 650 mg Q4H PRN NGT PAIN AND OR ELEVATED TEMP Last administered on 02/25/17 11:00; Admin Dose 650 MG; Start 01/26/17 at 09:00 Metoprolol Tartrate (Lopressor) 2.5 mg Q4H PRN IV HR > 110 Last administered on 02/23/17 03:58; Admin Dose 2.5 MG; Start 01/26/17 at 15:00 Midodrine (Proamatine) 5 mg Q8 PRN GTB BLOOD PRESSURE SUPPORT Last administered on 02/24/17 00:52; Admin Dose 5 MG; Start 01/28/17 at 16:30 Nystatin (Nystatin Powder) 1 applic BID TOP Last administered on 02/28/17 10: 05; Admin Dose 1 APPLIC; Start 02/04/17 at 12:00 Eye Lubricant (Artificial Tears Oph) 2 drop Q6H PRN BOTH EYES DRY EYES Last administered on 02/27/17 17:40; Admin Dose 2 DROP; Start 02/13/17 at 15:30 Nystatin (Nystatin Susp) 5 ml QID GTB Last administered on 02/28/17 09:56; Admin Dose 5 ML; Start 02/18/17 at 08:00 Lansoprazole (Prevacid) 30 mg BID@06,18 GTB Last administered on 02/28/17 05: 28; Admin Dose 30 MG; Start 02/18/17 at 18:00 Amoxicillin (Amoxicillin Susp) 1,000 mg BID GTB Last administered on 02/28/17 09:56; Admin Dose 1,000 MG; Start 02/20/17 at 21:00; Stop 03/06/17 at 20:59 Clarithromycin (Biaxin) 500 mg BID GTB Last administered on 02/28/17 09:52; Admin Dose 500 MG; Start 02/20/17 at 21:00 Metoprolol Tartrate (Lopressor) 12.5 mg BID GTB Last administered on 02/28/17 09:55; Admin Dose 12.5 MG; Start 02/22/17 at 22:30 Apixaban (Eliquis) 5 mg BID GTB Last administered on 02/28/17 09:56; Admin Dose 5 MG; Start 02/22/17 at 22:00 Assessment/Plan Chief Complaint/Hosp Course Assessment/impression: - s/p UTI due to proteus - diffuse moderate degree of gastritis s/p EGD 02/15/2017 - gastritis due to H. pylori based on pathology 02/15/2017, on clarithromycin based regimen (02/20/2017-), [id number] - bleeding from GT site, and blood clots in tube feed - resolved - recurrent CVA - possible aspiration, improved - encephalopathy due to CVA. CSF from 01/19/2017: WBC=3, RBC=0, glu 53, pro=61, CSF ([place] serology negative, HSV negative, cocci CF negative, encephalitis meningitis panel could not be done due to a lack of sample), serum ([place] PCR negative, crypto antigen negative, cocci CF negative, histo CF negative). my order of crypto in CSF was cancelled and no reason given - bacteremia due to CoNS, probable contaminant. 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 pylori (02/20/2017-), clarithro, amoxicillin and lansoprazole. Planned through 03/06/2017 - amoxicillin covers UTI caused by proteus. Pt took IV ceftriaxone previously (-02/19/2017) Care and management discussed with nurse Palma and DR. Carbajal Problems: CLAUDY DE JESUS Feb 28, 2017 10:37
--- NOTE | 2017-02-28 19:50 | PN ---
Date/Time of Note Date/Time of Note DATE: 02/28/17 TIME: 19:49 Assessment/Plan VTE Prophylaxis VTE Prophylaxis Intervention: other Lines/Catheters IV [facility] PICC Line Central line still needed: Yes Urinary Cath still in place: Yes Reason Cath still needed: urinary retention Assessment/Plan Assessment/Plan - Urinary tract infection, continue antibiotics per ID. Dr. Abarca is following in an infection disease consultation. - Gastritis due to H. pylori, continue triple therapy per H. pylori eradication - Possible bleeding from G-tube and hematuria, resolved status post EGD was notion of gastritis, continue Protonix. - Bilateral thalamic infarctions. - Dysphagia, status post G-tube placement by Dr. Garcia. - Atrial fibrillation with rapid ventricular response. Dr. Armenta is following and cardiology consultation. Continue Eliquis. - Thrombosis of the bilateral cephalic veins. - Acute kidney injury, resolved. - History of CVA - History of hyperlipidemia Further recommendations based on clinical course. Plan of care discussed with Dr. Valdovinos. Subjective 24 Hr Interval Summary Free Text/Dictation 1730 - entry afebrile, family at bed side - all Qs answered.tolerating PT. Dw staff Respiratory: no complaints Cardiovascular: no complaints Gastrointestinal: no complaints Exam/Review of Systems Vital Signs Vitals Vital Signs Date Time Temp Pulse Resp B/P Pulse Ox O2 Delivery O2 Flow Rate FiO2 02/28/17 19:35 60 18 98 21 02/28/17 11:37 98.3 100/51 02/27/17 04:00 Room Air Intake and Output 02/27/17 02/27/17 02/28/17 15:00 23:00 07:00 Intake Total 900 ml 1000 ml 950 ml Output Total 400 ml 450 ml 900 ml Balance 500 ml 550 ml 50 ml Exam Constitutional: alert, oriented (to name only), well developed Psych: nl mood/affect Respiratory: clear to auscultation, normal air movement Cardiovascular: irregular rhythm, nl pulses Gastrointestinal: non-tender, soft Musculoskeletal: other Extremities: normal pulses Neurological: lethargic Results Result Diagram: 02/28/17 0543 02/28/17 0545 Results 24 hrs Laboratory Tests Test 02/28/17 05:43 02/28/17 05:45 White Blood Count 10.8 Red Blood Count 3.94 L Hemoglobin 10.8 L Hematocrit 33.6 L Mean Corpuscular Volume 85.3 Mean Corpuscular Hemoglobin 27.4 L Mean Corpuscular Hemoglobin Concent 32.1 Red Cell Distribution Width 17.1 H Platelet Count 405 Mean Platelet Volume 12.6 H Neutrophils % 76.3 Lymphocytes % 14.0 L Monocytes % 6.7 Eosinophils % 1.8 Basophils % 0.8 Nucleated Red Blood Cells % 0.0 Neutrophils # (Manual) 8.3 H Lymphocytes # 1.5 Monocytes # 0.7 Eosinophils # 0.2 Basophils # 0.1 Nucleated Red Blood Cells # 0.0 Sodium Level 147 H Potassium Level 4.1 Chloride Level 104 Carbon Dioxide Level 25 Anion Gap 22 H Blood Urea Nitrogen 23 H Creatinine 0.82 Glucose Level 109 Calcium Level 9.9 Medications Medications Current Medications Miscellaneous Information 1 ea NOTE XX ; Start 01/17/17 at 10:00 Glucose (Glutose) 15 gm Q15M PRN PO DECREASED GLUCOSE; Start 01/17/17 at 10:00 Glucose (Glutose) 22.5 gm Q15M PRN PO DECREASED GLUCOSE; Start 01/17/17 at 10: 00 Dextrose (D50w Syringe) 25 ml Q15M PRN IV DECREASED GLUCOSE; Start 01/17/17 at 10:00 Dextrose (D50w Syringe) 50 ml Q15M PRN IV DECREASED GLUCOSE; Start 01/17/17 at 10:00 Glucagon (Glucagen) 1 mg Q15M PRN IM DECREASED GLUCOSE; Start 01/17/17 at 10:00 Glucose (Glutose) 15 gm Q15M PRN BUCCAL DECREASED GLUCOSE; Start 01/17/17 at 10 :00 Collagenase (Santyl) 1 applic DAILY TOP Last administered on 02/27/17 09:30; Admin Dose 1 APPLIC; Start 01/17/17 at 21:00 IV Flush (NS 10 ml) 10 ml PRN PRN IV IV PROTOCOL Last administered on 21:45; Admin Dose 10 ML; Start 01/22/17 at 12:00 Miscellaneous Information (Pending Santyl Order For Wound Care) This patient dunaway... PRN PRN XX WOUND CARE; Start 01/24/17 at 07:30 Bisacodyl (Dulcolax Supp) 10 mg DAILY PRN OR CONSTIPATION Last administered on 02/24/17 15:02; Admin Dose 10 MG; Start 01/25/17 at 16:30 Acetaminophen (Tylenol Liquid) 650 mg Q4H PRN NGT PAIN AND OR ELEVATED TEMP Last administered on 02/25/17 11:00; Admin Dose 650 MG; Start 01/26/17 at 09:00 Metoprolol Tartrate (Lopressor) 2.5 mg Q4H PRN IV HR > 110 Last administered on 02/23/17 03:58; Admin Dose 2.5 MG; Start 01/26/17 at 15:00 Midodrine (Proamatine) 5 mg Q8 PRN GTB BLOOD PRESSURE SUPPORT Last administered on 02/24/17 00:52; Admin Dose 5 MG; Start 01/28/17 at 16:30 Nystatin (Nystatin Powder) 1 applic BID TOP Last administered on 02/28/17 10: 05; Admin Dose 1 APPLIC; Start 02/04/17 at 12:00 Eye Lubricant (Artificial Tears Oph) 2 drop Q6H PRN BOTH EYES DRY EYES Last administered on 02/27/17 17:40; Admin Dose 2 DROP; Start 02/13/17 at 15:30 Nystatin (Nystatin Susp) 5 ml QID GTB Last administered on 02/28/17 09:56; Admin Dose 5 ML; Start 02/18/17 at 08:00 Lansoprazole (Prevacid) 30 mg BID@,18 GTB Last administered on 02/28/17 05: 28; Admin Dose 30 MG; Start 02/18/17 at 18:00 Amoxicillin (Amoxicillin Susp) 1,000 mg BID GTB Last administered on 02/28/17 09:56; Admin Dose 1,000 MG; Start 02/20/17 at 21:00; Stop 03/06/17 at 20:59 Clarithromycin (Biaxin) 500 mg BID GTB Last administered on 02/28/17 09:52; Admin Dose 500 MG; Start 02/20/17 at 21:00 Metoprolol Tartrate (Lopressor) 12.5 mg BID GTB Last administered on 02/28/17 09:55; Admin Dose 12.5 MG; Start 02/22/17 at 22:30 Apixaban (Eliquis) 5 mg BID GTB Last administered on 02/28/17 09:56; Admin Dose 5 MG; Start 02/22/17 at 22:00 ALEXIS NAJERA Feb 28, 2017 19:50
[2017-03-01] VITALS (11 sets, daily range): BP systolic 85–116; BP diastolic 52–59; PULSE 60–80; RESP 16–19
[2017-03-01] MEDS: LEVALBUTEROL (NEB) 0.63 MG/3 ML AMP HHN SCH ×4 (01:31→20:32)
[2017-03-01] MEDS: LANSOPRAZOLE 30 MG CAP GTB SCH ×2 (05:22→16:39)
[2017-03-01 07:06] LABS: BASOPHIL # 0.1 10^3/ul (0.0-0.1); BASOPHILS % 1.2 % (0.0-2.0); EOSINOPHILS # 0.3 10^3/ul (0.0-0.5); HEMATOCRIT 33.1 % (37.0-47.0); HEMOGLOBIN 10.4 g/dl (12.0-16.0); LYMPHOCYTES # 1.6 10^3/ul (0.8-2.9); LYMPHOCYTES % 19.2 % (15.0-51.0); MEAN CORPUSCULAR HEMOGLOBIN 26.7 pg (29.0-33.0); MEAN CORPUSCULAR HGB CONC 31.4 g/dl (32.0-37.0); MEAN CORPUSCULAR VOLUME 85.1 fl (82.0-101.0); MEAN PLATELET VOLUME 12.8 fl (7.4-10.4); MONOCYTE # 0.5 10^3/ul (0.3-0.9); NEUTROPHILS % 69.9 % (39.0-77.0); PLATELET COUNT 402 10^3/UL (140-415); RED BLOOD COUNT 3.89 10^6/ul (4.20-5.40); RED CELL DISTRIBUTION WIDTH 17.4 % (11.5-14.5); WHITE BLOOD COUNT 8.3 10^3/ul (4.8-10.8)
[2017-03-01 07:24] LABS: CALCIUM 9.8 mg/dl (8.4-10.2); CREATININE 0.79 mg/dl (0.44-1.00); POTASSIUM 3.8 mmol/L (3.5-5.1)
[2017-03-01] MEDS: APIXABAN 5 MG TABLET GTB SCH ×2 (09:00→21:05)
[2017-03-01] MEDS: NYSTATIN SUSP 5 ML CUP GTB SCH ×4 (10:09→21:05)
[2017-03-01] MEDS: CLARITHROMYCIN 500 MG TAB GTB SCH ×2 (10:10→21:05)
[2017-03-01] MEDS: METOPROLOL 25 MG TAB GTB SCH ×2 (10:10→21:00)
[2017-03-01] MEDS: AMOXICILLIN (50 MG/ML PO SYG) GTB SCH ×2 (10:11→21:05)
[2017-03-01] MEDS: NYSTATIN 30 GM POWDER BTL TOP SCH ×2 (10:13→21:06)
[2017-03-01] MEDS: COLLAGENASE 30 GM TUBE TOP SCH (10:13)
--- NOTE | 2017-03-01 10:56 | CONS ---
GIRISH SCHMITZ ORDER TAKER 03/01/17 1056: Date/Time of Note Date/Time of Note DATE: 03/01/17 TIME: 10:54 Assessment/Plan Assessment/Plan Chief Complaint/Hosp Course Assessment/impression: - s/p UTI due to proteus - diffuse moderate degree of gastritis s/p EGD 02/15/2017 - gastritis due to H. pylori based on pathology 02/15/2017, on clarithromycin based regimen (02/20/2017-), [id number] - bleeding from GT site, and blood clots in tube feed - resolved - recurrent CVA - possible aspiration, improved - encephalopathy due to CVA. CSF from 01/19/2017: WBC=3, RBC=0, glu 53, pro=61, CSF ([place] serology negative, HSV negative, cocci CF negative, encephalitis meningitis panel could not be done due to a lack of sample), serum ([place] PCR negative, crypto antigen negative, cocci CF negative, histo CF negative). my order of crypto in CSF was cancelled and no reason given - bacteremia due to CoNS, probable contaminant. 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 pylori (02/20/2017-), clarithro, amoxicillin and lansoprazole. Planned through 03/06/2017 - amoxicillin covers UTI caused by proteus. Pt took IV ceftriaxone previously (-02/19/2017) - DC planning in progress; awaiting SNF placement Management d/w NARESH Collins and Dr. Carbajal Problems: Consultation Date/Type/Reason Admit Date/Time Jan 16, 2017 at 15:19 Initial Consult Date 01/17/17 Type of Consultation: Infectious Disease Referring Provider: LAWRENCE PICKERNIG 24 HR Interval Summary Free Text/Dictation No acute issues; still awaiting SNF placement per d/w nursing staff. Unable to perform ROS d/t encephalopathy. Subjective hx not possible: pt non-verbal Exam/Review of Systems Vital Signs Vitals Vital Signs Date Time Temp Pulse Resp B/P Pulse Ox O2 Delivery O2 Flow Rate FiO2 03/01/17 08:02 74 03/01/17 03:43 97.9 19 116/52 98 03/01/17 01:32 21 02/27/17 04:00 Room Air Intake and Output 02/28/17 02/28/17 03/01/17 15:00 23:00 07:00 Intake Total 1050 ml Balance 1050 ml Exam Constitutional: well-developed, non-verbal, Other (lethargic) Head: atraumatic, normocephalic Respiratory: clear to auscultation No wheezing Cardiovascular: irregular rhythm Gastrointestinal: other (G-tube intact), soft, No tender Genitourinary - Female: other (Lees catheter present) Musculoskeletal: nl extremities to inspection, normal pulses Extremities: No edema, Other (L heel eschar/dressing is c/di) Neurological: lethargic Skin: nl turgor Results Result Diagram: 03/01/17 0600 03/01/17 0600 Results 24 hrs Laboratory Tests Test 03/01/17 06:00 White Blood Count 8.3 # Red Blood Count 3.89 L Hemoglobin 10.4 L Hematocrit 33.1 L Mean Corpuscular Volume 85.1 Mean Corpuscular Hemoglobin 26.7 L Mean Corpuscular Hemoglobin Concent 31.4 L Red Cell Distribution Width 17.4 H Platelet Count 402 Mean Platelet Volume 12.8 H Neutrophils % 69.9 Lymphocytes % 19.2 Monocytes % 6.0 Eosinophils % 3.0 Basophils % 1.2 Nucleated Red Blood Cells % 0.0 Neutrophils # (Manual) 5.8 Lymphocytes # 1.6 Monocytes # 0.5 Eosinophils # 0.3 Basophils # 0.1 Nucleated Red Blood Cells # 0.0 Sodium Level 141 Potassium Level 3.8 Chloride Level 100 Carbon Dioxide Level 28 Anion Gap 17 H Blood Urea Nitrogen 26 H Creatinine 0.79 Glucose Level 115 Calcium Level 9.8 Medications Medications Current Medications Miscellaneous Information 1 ea NOTE XX ; Start 01/17/17 at 10:00 Glucose (Glutose) 15 gm Q15M PRN PO DECREASED GLUCOSE; Start 01/17/17 at 10:00 Glucose (Glutose) 22.5 gm Q15M PRN PO DECREASED GLUCOSE; Start 01/17/17 at 10: 00 Dextrose (D50w Syringe) 25 ml Q15M PRN IV DECREASED GLUCOSE; Start 01/17/17 at 10:00 Dextrose (D50w Syringe) 50 ml Q15M PRN IV DECREASED GLUCOSE; Start 01/17/17 at 10:00 Glucagon (Glucagen) 1 mg Q15M PRN IM DECREASED GLUCOSE; Start 01/17/17 at 10:00 Glucose (Glutose) 15 gm Q15M PRN BUCCAL DECREASED GLUCOSE; Start 01/17/17 at 10 :00 Collagenase (Santyl) 1 applic DAILY TOP Last administered on 03/01/17 10:13; Admin Dose 1 APPLIC; Start 01/17/17 at 21:00 IV Flush (NS 10 ml) 10 ml PRN PRN IV IV PROTOCOL Last administered on 21:45; Admin Dose 10 ML; Start 01/22/17 at 12:00 Miscellaneous Information (Pending Santyl Order For Wound Care) This patient dunaway... PRN PRN XX WOUND CARE; Start 01/24/17 at 07:30 Bisacodyl (Dulcolax Supp) 10 mg DAILY PRN NM CONSTIPATION Last administered on 02/24/17 15:02; Admin Dose 10 MG; Start 01/25/17 at 16:30 Acetaminophen (Tylenol Liquid) 650 mg Q4H PRN NGT PAIN AND OR ELEVATED TEMP Last administered on 02/25/17 11:00; Admin Dose 650 MG; Start 01/26/17 at 09:00 Metoprolol Tartrate (Lopressor) 2.5 mg Q4H PRN IV HR > 110 Last administered on 02/23/17 03:58; Admin Dose 2.5 MG; Start 01/26/17 at 15:00 Midodrine (Proamatine) 5 mg Q8 PRN GTB BLOOD PRESSURE SUPPORT Last administered on 02/24/17 00:52; Admin Dose 5 MG; Start 01/28/17 at 16:30 Nystatin (Nystatin Powder) 1 applic BID TOP Last administered on 03/01/17 10: 13; Admin Dose 1 APPLIC; Start 02/04/17 at 12:00 Eye Lubricant (Artificial Tears Oph) 2 drop Q6H PRN BOTH EYES DRY EYES Last administered on 02/27/17 17:40; Admin Dose 2 DROP; Start 02/13/17 at 15:30 Nystatin (Nystatin Susp) 5 ml QID GTB Last administered on 03/01/17 10:09; Admin Dose 5 ML; Start 02/18/17 at 08:00 Lansoprazole (Prevacid) 30 mg BID@,18 GTB Last administered on 03/01/17 05: 22; Admin Dose 30 MG; Start 02/18/17 at 18:00 Amoxicillin (Amoxicillin Susp) 1,000 mg BID GTB Last administered on 03/01/17 10:11; Admin Dose 1,000 MG; Start 02/20/17 at 21:00; Stop 03/06/17 at 20:59 Clarithromycin (Biaxin) 500 mg BID GTB Last administered on 03/01/17 10:10; Admin Dose 500 MG; Start 02/20/17 at 21:00 Metoprolol Tartrate (Lopressor) 12.5 mg BID GTB Last administered on 03/01/17 10:10; Admin Dose 12.5 MG; Start 02/22/17 at 22:30 Apixaban (Eliquis) 5 mg BID GTB Last administered on 03/01/17 09:00; Admin Dose 5 MG; Start 02/22/17 at 22:00 TYE CARBAJAL M.D. 03/02/17 1929: Assessment/Plan Assessment/Plan Additional Assessment/Plan Raven attestation: I discussed the management with LUNA Schmitz and agree with her note Exam/Review of Systems Results Result Diagram: 03/01/1759903/01/17599 GIRISH SCHMITZ NP Mar 01, 2017 10:56 TYE CARBAJAL M.D. Mar 02, 2017 19:29
--- NOTE | 2017-03-01 11:24 | CONS ---
Date/Time of Note Date/Time of Note DATE: 03/01/17 TIME: 11:22 Assessment/Plan Assessment/Plan Chief Complaint/Hosp Course IMP: 1. AF-mainly rate controlled/Trop negative x 3. Had pause x 3.7 seconds 01/30 on standing IVP BB. No recurrence since decrease in IVP BB. Tolerating low dose PO BB well 2.Hypotension-on midodrine 3.encephalopathy/ams 4.coagulopathy-now on eliquis 5. Acute Renal failure-Now resolved 6.Leukocytosis 7. Cardiomyopathy-EF 45% 8. Cephalic vein thrombosis 9. Dysphagia s/p PEG 10. H Pylori Recc: -Tele -serial ecg's -Cont. Eliquis -Continue low dose BB as tolerated only -Continue abx's -Follow MS closely which has had some mild improvement -Continue midodrine for low BP -Continue treatment for H Pylori -Possible need for PPM will follow/stable at this time-no definite indication Problems: Consultation Date/Type/Reason Admit Date/Time Jan 16, 2017 at 15:19 Initial Consult Date 01/17/17 Type of Consultation: cardiology Reason for Consultation AF Referring Provider: LAWRENCE PICKERING Exam/Review of Systems Vital Signs Vitals Vital Signs Date Time Temp Pulse Resp B/P Pulse Ox O2 Delivery O2 Flow Rate FiO2 03/01/17 11:18 98.1 78 16 88/52 98 85/52 03/01/17 01:32 21 02/27/17 04:00 Room Air Intake and Output 02/28/17 02/28/17 03/01/17 15:00 23:00 07:00 Intake Total 1050 ml Balance 1050 ml Exam Review of Systems: CONSTITUTIONAL: No fevers, chills. PULMONARY: No sob CARDIOVASCULAR: No chest pain/palpitations GASTROINTESTINAL: No nausea/vomiting. GENITOURINARY: No hematuria/dysuria. MUSCULOSKELETAL: No myagias/arthalgias. PSYCHIATRIC: The patient denies depression. NEUROLOGIC: No weakness Constitutional: other (encephalopathy) Psych: no complaints Head: normocephalic ENMT: mucosa pink and moist Neck: jvd (9 cm water), supple Respiratory: diminished breath sounds (at bases/B) Cardiovascular: irregular rhythm Gastrointestinal: non-tender, soft Musculoskeletal: muscle tone Extremities: normal pulses Neurological: confused, lethargic Results Result Diagram: 03/01/17 0600 03/01/17 0600 Results 24 hrs Laboratory Tests Test 03/01/17 06:00 White Blood Count 8.3 # Red Blood Count 3.89 L Hemoglobin 10.4 L Hematocrit 33.1 L Mean Corpuscular Volume 85.1 Mean Corpuscular Hemoglobin 26.7 L Mean Corpuscular Hemoglobin Concent 31.4 L Red Cell Distribution Width 17.4 H Platelet Count 402 Mean Platelet Volume 12.8 H Neutrophils % 69.9 Lymphocytes % 19.2 Monocytes % 6.0 Eosinophils % 3.0 Basophils % 1.2 Nucleated Red Blood Cells % 0.0 Neutrophils # (Manual) 5.8 Lymphocytes # 1.6 Monocytes # 0.5 Eosinophils # 0.3 Basophils # 0.1 Nucleated Red Blood Cells # 0.0 Sodium Level 141 Potassium Level 3.8 Chloride Level 100 Carbon Dioxide Level 28 Anion Gap 17 H Blood Urea Nitrogen 26 H Creatinine 0.79 Glucose Level 115 Calcium Level 9.8 Medications Medications Current Medications Miscellaneous Information 1 ea NOTE XX ; Start 01/17/17 at 10:00 Glucose (Glutose) 15 gm Q15M PRN PO DECREASED GLUCOSE; Start 01/17/17 at 10:00 Glucose (Glutose) 22.5 gm Q15M PRN PO DECREASED GLUCOSE; Start 01/17/17 at 10: 00 Dextrose (D50w Syringe) 25 ml Q15M PRN IV DECREASED GLUCOSE; Start 01/17/17 at 10:00 Dextrose (D50w Syringe) 50 ml Q15M PRN IV DECREASED GLUCOSE; Start 01/17/17 at 10:00 Glucagon (Glucagen) 1 mg Q15M PRN IM DECREASED GLUCOSE; Start 01/17/17 at 10:00 Glucose (Glutose) 15 gm Q15M PRN BUCCAL DECREASED GLUCOSE; Start 01/17/17 at 10 :00 Collagenase (Santyl) 1 applic DAILY TOP Last administered on 03/01/17 10:13; Admin Dose 1 APPLIC; Start 01/17/17 at 21:00 IV Flush (NS 10 ml) 10 ml PRN PRN IV IV PROTOCOL Last administered on 21:45; Admin Dose 10 ML; Start 01/22/17 at 12:00 Miscellaneous Information (Pending Santyl Order For Wound Care) This patient dunaway... PRN PRN XX WOUND CARE; Start 01/24/17 at 07:30 Bisacodyl (Dulcolax Supp) 10 mg DAILY PRN [place] CONSTIPATION Last administered on 02/24/17 15:02; Admin Dose 10 MG; Start 01/25/17 at 16:30 Acetaminophen (Tylenol Liquid) 650 mg Q4H PRN NGT PAIN AND OR ELEVATED TEMP Last administered on 02/25/17 11:00; Admin Dose 650 MG; Start 01/26/17 at 09:00 Metoprolol Tartrate (Lopressor) 2.5 mg Q4H PRN IV HR > 110 Last administered on 02/23/17 03:58; Admin Dose 2.5 MG; Start 01/26/17 at 15:00 Midodrine (Proamatine) 5 mg Q8 PRN GTB BLOOD PRESSURE SUPPORT Last administered on 02/24/17 00:52; Admin Dose 5 MG; Start 01/28/17 at 16:30 Nystatin (Nystatin Powder) 1 applic BID TOP Last administered on 03/01/17 10: 13; Admin Dose 1 APPLIC; Start 02/04/17 at 12:00 Eye Lubricant (Artificial Tears Oph) 2 drop Q6H PRN BOTH EYES DRY EYES Last administered on 02/27/17 17:40; Admin Dose 2 DROP; Start 02/13/17 at 15:30 Nystatin (Nystatin Susp) 5 ml QID GTB Last administered on 03/01/17 10:09; Admin Dose 5 ML; Start 02/18/17 at 08:00 Lansoprazole (Prevacid) 30 mg BID@06,18 GTB Last administered on 03/01/17 05: 22; Admin Dose 30 MG; Start 02/18/17 at 18:00 Amoxicillin (Amoxicillin Susp) 1,000 mg BID GTB Last administered on 03/01/17 10:11; Admin Dose 1,000 MG; Start 02/20/17 at 21:00; Stop 03/06/17 at 20:59 Clarithromycin (Biaxin) 500 mg BID GTB Last administered on 03/01/17 10:10; Admin Dose 500 MG; Start 02/20/17 at 21:00 Metoprolol Tartrate (Lopressor) 12.5 mg BID GTB Last administered on 03/01/17 10:10; Admin Dose 12.5 MG; Start 02/22/17 at 22:30 Apixaban (Eliquis) 5 mg BID GTB Last administered on 03/01/17t 09:00; Admin Dose 5 MG; Start 02/22/17 at 22:00 MINOO REY Mar 01, 2017 11:24
[2017-03-01] MEDS: ARTIFICIAL TEARS 15 ML OPH BOTH EYES PRN (15:58)
--- NOTE | 2017-03-01 17:25 | PN ---
Date/Time of Note Date/Time of Note DATE: 03/01/17 TIME: 17:23 Assessment/Plan VTE Prophylaxis VTE Prophylaxis Intervention: SCD's Lines/Catheters IV [facility] P[facility] Line Central line still needed: Yes Urinary Cath still in place: Yes Reason Cath still needed: urinary retention Assessment/Plan Chief Complaint/Hosp Course Patient is more awake, able to respond verbally to questions, heart rate is better controlled however patient has borderline blood pressure, remains afebrile, continue to monitor. Assessment/Plan - Urinary tract infection, continue antibiotics per ID. Dr. Abarca is following in an infection disease consultation. - Gastritis due to H. pylori, continue triple therapy per H. pylori eradication - Possible bleeding from G-tube and hematuria, resolved status post EGD was notion of gastritis, continue Protonix. - Bilateral thalamic infarctions. - Dysphagia, status post G-tube placement by Dr. Garcia. - Atrial fibrillation with rapid ventricular response. Dr. Armenta is following and cardiology consultation. Continue Eliquis. - Thrombosis of the bilateral cephalic veins. - Acute kidney injury, resolved. - History of CVA - History of hyperlipidemia Further recommendations based on clinical course. Plan of care discussed with Dr. Valdovinos. Problems: Exam/Review of Systems Vital Signs Vitals Vital Signs Date Time Temp Pulse Resp B/P Pulse Ox O2 Delivery O2 Flow Rate FiO2 03/01/17 15:46 97.5 87 16 109/59 99 03/01/17 01:32 21 02/27/17 04:00 Room Air Intake and Output 02/28/17 02/28/17 03/01/17 15:00 23:00 07:00 Intake Total 1050 ml Balance 1050 ml Exam Constitutional: awake Respiratory: normal air movement Cardiovascular: irregular rhythm Gastrointestinal: non-tender, other (G-tube), soft Genitourinary - Female: other (Lees catheter) Musculoskeletal: muscle weakness Neurological: focal weakness Results Result Diagram: 03/01/17 0600 03/01/17 0600 Results 24 hrs Laboratory Tests Test 03/01/17 06:00 White Blood Count 8.3 # Red Blood Count 3.89 L Hemoglobin 10.4 L Hematocrit 33.1 L Mean Corpuscular Volume 85.1 Mean Corpuscular Hemoglobin 26.7 L Mean Corpuscular Hemoglobin Concent 31.4 L Red Cell Distribution Width 17.4 H Platelet Count 402 Mean Platelet Volume 12.8 H Neutrophils % 69.9 Lymphocytes % 19.2 Monocytes % 6.0 Eosinophils % 3.0 Basophils % 1.2 Nucleated Red Blood Cells % 0.0 Neutrophils # (Manual) 5.8 Lymphocytes # 1.6 Monocytes # 0.5 Eosinophils # 0.3 Basophils # 0.1 Nucleated Red Blood Cells # 0.0 Sodium Level 141 Potassium Level 3.8 Chloride Level 100 Carbon Dioxide Level 28 Anion Gap 17 H Blood Urea Nitrogen 26 H Creatinine 0.79 Glucose Level 115 Calcium Level 9.8 Medications Medications Current Medications Miscellaneous Information 1 ea NOTE XX ; Start 01/17/17 at 10:00 Glucose (Glutose) 15 gm Q15M PRN PO DECREASED GLUCOSE; Start 01/17/17 at 10:00 Glucose (Glutose) 22.5 gm Q15M PRN PO DECREASED GLUCOSE; Start 01/17/17 at 10: 00 Dextrose (D50w Syringe) 25 ml Q15M PRN IV DECREASED GLUCOSE; Start 01/17/17 at 10:00 Dextrose (D50w Syringe) 50 ml Q15M PRN IV DECREASED GLUCOSE; Start 01/17/17 at 10:00 Glucagon (Glucagen) 1 mg Q15M PRN IM DECREASED GLUCOSE; Start 01/17/17 at 10:00 Glucose (Glutose) 15 gm Q15M PRN BUCCAL DECREASED GLUCOSE; Start 01/17/17 at 10 :00 Collagenase (Santyl) 1 applic DAILY TOP Last administered on 03/01/17 10:13; Admin Dose 1 APPLIC; Start 01/17/17 at 21:00 IV Flush (NS 10 ml) 10 ml PRN PRN IV IV PROTOCOL Last administered on 21:45; Admin Dose 10 ML; Start 01/22/17 at 12:00 Miscellaneous Information (Pending Santyl Order For Wound Care) This patient dunaway... PRN PRN XX WOUND CARE; Start 01/24/17 at 07:30 Bisacodyl (Dulcolax Supp) 10 mg DAILY PRN [place] CONSTIPATION Last administered on 02/24/17 15:02; Admin Dose 10 MG; Start 01/25/17 at 16:30 Acetaminophen (Tylenol Liquid) 650 mg Q4H PRN NGT PAIN AND OR ELEVATED TEMP Last administered on 02/25/17 11:00; Admin Dose 650 MG; Start 01/26/17 at 09:00 Metoprolol Tartrate (Lopressor) 2.5 mg Q4H PRN IV HR > 110 Last administered on 02/23/17 03:58; Admin Dose 2.5 MG; Start 01/26/17 at 15:00 Midodrine (Proamatine) 5 mg Q8 PRN GTB BLOOD PRESSURE SUPPORT Last administered on 02/24/17 00:52; Admin Dose 5 MG; Start 01/28/17 at 16:30 Nystatin (Nystatin Powder) 1 applic BID TOP Last administered on 03/01/17 10: 13; Admin Dose 1 APPLIC; Start 02/04/17 at 12:00 Eye Lubricant (Artificial Tears Oph) 2 drop Q6H PRN BOTH EYES DRY EYES Last administered on 03/01/17 15:58; Admin Dose 2 DROP; Start 02/13/17 at 15:30 Nystatin (Nystatin Susp) 5 ml QID GTB Last administered on 03/01/17 16:40; Admin Dose 5 ML; Start 02/18/17 at 08:00 Lansoprazole (Prevacid) 30 mg BID@,18 GTB Last administered on 03/01/17 16: 39; Admin Dose 30 MG; Start 02/18/17 at 18:00 Amoxicillin (Amoxicillin Susp) 1,000 mg BID GTB Last administered on 03/01/17 10:11; Admin Dose 1,000 MG; Start 02/20/17 at 21:00; Stop 03/06/17 at 20:59 Clarithromycin (Biaxin) 500 mg BID GTB Last administered on 03/01/17 10:10; Admin Dose 500 MG; Start 02/20/17 at 21:00 Metoprolol Tartrate (Lopressor) 12.5 mg BID GTB Last administered on 03/01/17 10:10; Admin Dose 12.5 MG; Start 02/22/17 at 22:30 Apixaban (Eliquis) 5 mg BID GTB Last administered on 03/01/17 09:00; Admin Dose 5 MG; Start 02/22/17 at 22:00 LAWRENCE PICKERING Mar 01, 2017 17:25
[2017-03-02] VITALS (11 sets, daily range): BP systolic 92–117; BP diastolic 46–61; PULSE 69–90; RESP 16–20
[2017-03-02] MEDS: LEVALBUTEROL (NEB) 0.63 MG/3 ML AMP HHN SCH ×4 (01:07→20:47)
[2017-03-02] MEDS: LANSOPRAZOLE 30 MG CAP GTB SCH ×2 (05:40→16:39)
--- NOTE | 2017-03-02 09:03 | CONS ---
Date/Time of Note Date/Time of Note DATE: 03/02/17 TIME: 09:02 Assessment/Plan Assessment/Plan Additional Assessment/Plan 1. AF-mainly rate controlled better now - RATE CONTROLLED. NO ABRIL EPISODES NOW. HOLD OFF ON PACER. 2.Hypotension-now improved on midodrine - stable - Rx as needed, Borderline - tolerating feeds now. BETTER. 3.Encephalopathy/ams - multifactorial, no change noted. UNCHANGED 4.coagulopathy-now decreased with coumadin held - on lovenox - no signs of bleeding now. STABLE. 5. Acute Renal failure-? secondary to vanc - will monitor now - STABLE URINE OUTPUT. 6.Leukocytosis - improved with therapy. 7. Cardiomyopathy-EF 45% - euvolemic by exam. NO INDICATION FOR PACER/ICD now. 8. Cephalic vein thrombosis 9. Dysphagia s/p PEG - Rx with meds now - now dispo planned Consultation Date/Type/Reason Admit Date/Time Jan 16, 2017 at 15:19 Initial Consult Date 01/26/17 Type of Consultation: cardiology Referring Provider: LAWRENCE PICKERING 24 HR Interval Summary Free Text/Dictation NO acute events - no tachy-abril noted, ROS: No fever, no chills, no nausea, no vomiting, no diarrhea/constipation No recent weight changes No chest pain, no PND, no orthopnea No dizziness, blurred vision No thirst, no heat or cold intolerance (per nurse) Exam/Review of Systems Vital Signs Vitals Vital Signs Date Time Temp Pulse Resp B/P Pulse Ox O2 Delivery O2 Flow Rate FiO2 03/02/17 07:30 76 20 98 21 03/02/17 07:27 97.7 108/53 02/27/17 04:00 Room Air Intake and Output 03/01/17 03/01/17 03/02/17 15:00 23:00 07:00 Intake Total 950 ml 900 ml Output Total 700 ml 850 ml Balance 250 ml 50 ml Exam General: WN/WD/NAD, AOx 0 HEENT: Unicetric/atraumatic/EOMI (does not follow commands) NECK: JVD elevated, no thyromegaly Lymph: no lymphadenopathy HEART: Ir Irregular with no S3, II/ systolic murmur at apex LUNGS: Coarse sounds ABD: soft, NT, ND, +BS : Intact Neuro: non focal SKIN: chronic changes EXT: trace edema Results Result Diagram: 03/01/17 0600 03/01/17 0600 Medications Medications Current Medications Miscellaneous Information 1 ea NOTE XX ; Start 01/17/17 at 10:00 Glucose (Glutose) 15 gm Q15M PRN PO DECREASED GLUCOSE; Start 01/17/17 at 10:00 Glucose (Glutose) 22.5 gm Q15M PRN PO DECREASED GLUCOSE; Start 01/17/17 at 10: 00 Dextrose (D50w Syringe) 25 ml Q15M PRN IV DECREASED GLUCOSE; Start 01/17/17 at 10:00 Dextrose (D50w Syringe) 50 ml Q15M PRN IV DECREASED GLUCOSE; Start 01/17/17 at 10:00 Glucagon (Glucagen) 1 mg Q15M PRN IM DECREASED GLUCOSE; Start 01/17/17 at 10:00 Glucose (Glutose) 15 gm Q15M PRN BUCCAL DECREASED GLUCOSE; Start 01/17/17 at 10 :00 Collagenase (Santyl) 1 applic DAILY TOP Last administered on 03/01/17 10:13; Admin Dose 1 APPLIC; Start 01/17/17 at 21:00 IV Flush (NS 10 ml) 10 ml PRN PRN IV IV PROTOCOL Last administered on 21:45; Admin Dose 10 ML; Start 01/22/17 at 12:00 Miscellaneous Information (Pending Santyl Order For Wound Care) This patient dunaway... PRN PRN XX WOUND CARE; Start 01/24/17 at 07:30 Bisacodyl (Dulcolax Supp) 10 mg DAILY PRN [place] CONSTIPATION Last administered on 02/24/17 15:02; Admin Dose 10 MG; Start 01/25/17 at 16:30 Acetaminophen (Tylenol Liquid) 650 mg Q4H PRN NGT PAIN AND OR ELEVATED TEMP Last administered on 02/25/17 11:00; Admin Dose 650 MG; Start 01/26/17 at 09:00 Metoprolol Tartrate (Lopressor) 2.5 mg Q4H PRN IV HR > 110 Last administered on 02/23/17 03:58; Admin Dose 2.5 MG; Start 01/26/17 at 15:00 Midodrine (Proamatine) 5 mg Q8 PRN GTB BLOOD PRESSURE SUPPORT Last administered on 02/24/17 00:52; Admin Dose 5 MG; Start 01/28/17 at 16:30 Nystatin (Nystatin Powder) 1 applic BID TOP Last administered on 03/01/17 21: 06; Admin Dose 1 APPLIC; Start 02/04/17 at 12:00 Eye Lubricant (Artificial Tears Oph) 2 drop Q6H PRN BOTH EYES DRY EYES Last administered on 03/01/17 15:58; Admin Dose 2 DROP; Start 02/13/17 at 15:30 Nystatin (Nystatin Susp) 5 ml QID GTB Last administered on 03/01/17 21:05; Admin Dose 5 ML; Start 02/18/17 at 08:00 Lansoprazole (Prevacid) 30 mg BID@,18 GTB Last administered on 03/02/17 05: 40; Admin Dose 30 MG; Start 02/18/17 at 18:00 Amoxicillin (Amoxicillin Susp) 1,000 mg BID GTB Last administered on 03/01/17 21:05; Admin Dose 1,000 MG; Start 02/20/17 at 21:00; Stop 03/06/17 at 20:59 Clarithromycin (Biaxin) 500 mg BID GTB Last administered on 03/01/17 21:05; Admin Dose 500 MG; Start 02/20/17 at 21:00 Metoprolol Tartrate (Lopressor) 12.5 mg BID GTB Last administered on 03/01/17 10:10; Admin Dose 12.5 MG; Start 02/22/17 at 22:30 Apixaban (Eliquis) 5 mg BID GTB Last administered on 03/01/17 21:05; Admin Dose 5 MG; Start 02/22/17 at 22:00 YAJAIRA ALVAREZ MD Mar 02, 2017 09:03
[2017-03-02] MEDS: NYSTATIN SUSP 5 ML CUP GTB SCH ×4 (09:29→21:42)
[2017-03-02] MEDS: CLARITHROMYCIN 500 MG TAB GTB SCH ×2 (09:29→21:43)
[2017-03-02] MEDS: APIXABAN 5 MG TABLET GTB SCH ×2 (09:30→21:43)
[2017-03-02] MEDS: METOPROLOL 25 MG TAB GTB SCH ×2 (09:31→21:43)
[2017-03-02] MEDS: COLLAGENASE 30 GM TUBE TOP SCH (09:32)
[2017-03-02] MEDS: NYSTATIN 30 GM POWDER BTL TOP SCH ×3 (09:32→21:47)
[2017-03-02] MEDS: AMOXICILLIN (50 MG/ML PO SYG) GTB SCH ×2 (09:43→21:42)
--- NOTE | 2017-03-02 15:45 | PN ---
Date/Time of Note Date/Time of Note DATE: 03/02/17 TIME: 15:41 Assessment/Plan VTE Prophylaxis VTE Prophylaxis Intervention: SCD's Lines/Catheters IV [facility]atheter Type (from [facility]): PICC line Urinary Cath still in place: Yes Reason Cath still needed: urinary retention Assessment/Plan Chief Complaint/Hosp Course Patient with improvement in neurological status, atrial fibrillation at controlled rate, underlying blood pressure, remains afebrile. Pending [facility]p facility placement. Assessment/Plan - Urinary tract infection, continue antibiotics per ID. Dr. Abarca is following in an infection disease consultation. - Gastritis due to H. pylori, continue triple therapy per H. pylori eradication - Possible bleeding from G-tube and hematuria, resolved status post EGD was notion of gastritis, continue Protonix. - Bilateral thalamic infarctions. - Dysphagia, status post G-tube placement by Dr. Garcia. - Atrial fibrillation with rapid ventricular response. Dr. Armenta is following and cardiology consultation. Continue Eliquis. - Thrombosis of the bilateral cephalic veins. - Acute kidney injury, resolved. - History of CVA - History of hyperlipidemia Further recommendations based on clinical course. Plan of care discussed with Dr. Valdovinos. Problems: Exam/Review of Systems Vital Signs Vitals Vital Signs Date Time Temp Pulse Resp B/P Pulse Ox O2 Delivery O2 Flow Rate FiO2 03/02/17 15:24 97.5 83 16 92/56 98 03/02/17 14:25 21 02/27/17 04:00 Room Air Intake and Output 03/01/17 03/01/17 03/02/17 15:00 23:00 07:00 Intake Total 950 ml 900 ml Output Total 700 ml 850 ml Balance 250 ml 50 ml Exam Constitutional: awake Respiratory: normal air movement Cardiovascular: irregular rhythm Gastrointestinal: non-tender, other (G-tube), soft Genitourinary - Female: other (Lees catheter) Musculoskeletal: muscle weakness Neurological: focal weakness Results Result Diagram: 03/01/17 0600 03/01/17 0600 Medications Medications Current Medications Miscellaneous Information 1 ea NOTE XX ; Start 01/17/17 at 10:00 Glucose (Glutose) 15 gm Q15M PRN PO DECREASED GLUCOSE; Start 01/17/17 at 10:00 Glucose (Glutose) 22.5 gm Q15M PRN PO DECREASED GLUCOSE; Start 01/17/17 at 10: 00 Dextrose (D50w Syringe) 25 ml Q15M PRN IV DECREASED GLUCOSE; Start 01/17/17 at 10:00 Dextrose (D50w Syringe) 50 ml Q15M PRN IV DECREASED GLUCOSE; Start 01/17/17 at 10:00 Glucagon (Glucagen) 1 mg Q15M PRN IM DECREASED GLUCOSE; Start 01/17/17 at 10:00 Glucose (Glutose) 15 gm Q15M PRN BUCCAL DECREASED GLUCOSE; Start 01/17/17 at 10 :00 Collagenase (Santyl) 1 applic DAILY TOP Last administered on 03/02/17 09:32; Admin Dose 1 APPLIC; Start 01/17/17 at 21:00 IV Flush (NS 10 ml) 10 ml PRN PRN IV IV PROTOCOL Last administered on 21:45; Admin Dose 10 ML; Start 01/22/17 at 12:00 Miscellaneous Information (Pending Santyl Order For Wound Care) This patient dunaway... PRN PRN XX WOUND CARE; Start 01/24/17 at 07:30 Bisacodyl (Dulcolax Supp) 10 mg DAILY PRN [place] CONSTIPATION Last administered on 02/24/17 15:02; Admin Dose 10 MG; Start 01/25/17 at 16:30 Acetaminophen (Tylenol Liquid) 650 mg Q4H PRN NGT PAIN AND OR ELEVATED TEMP Last administered on 02/25/17 11:00; Admin Dose 650 MG; Start 01/26/17 at 09:00 Metoprolol Tartrate (Lopressor) 2.5 mg Q4H PRN IV HR > 110 Last administered on 02/23/17 03:58; Admin Dose 2.5 MG; Start 01/26/17 at 15:00 Midodrine (Proamatine) 5 mg Q8 PRN GTB BLOOD PRESSURE SUPPORT Last administered on 02/24/17 00:52; Admin Dose 5 MG; Start 01/28/17 at 16:30 Nystatin (Nystatin Powder) 1 applic BID TOP Last administered on 03/02/17 09: 32; Admin Dose 1 APPLIC; Start 02/04/17 at 12:00 Eye Lubricant (Artificial Tears Oph) 2 drop Q6H PRN BOTH EYES DRY EYES Last administered on 03/01/17 15:58; Admin Dose 2 DROP; Start 02/13/17 at 15:30 Nystatin (Nystatin Susp) 5 ml QID GTB Last administered on 03/02/17 12:54; Admin Dose 5 ML; Start 02/18/17 at 08:00 Lansoprazole (Prevacid) 30 mg BID@,18 GTB Last administered on 03/02/17 05: 40; Admin Dose 30 MG; Start 02/18/17 at 18:00 Amoxicillin (Amoxicillin Susp) 1,000 mg BID GTB Last administered on 03/02/17 09:43; Admin Dose 1,000 MG; Start 02/20/17 at 21:00; Stop 03/06/17 at 20:59 Clarithromycin (Biaxin) 500 mg BID GTB Last administered on 03/02/17 09:29; Admin Dose 500 MG; Start 02/20/17 at 21:00 Metoprolol Tartrate (Lopressor) 12.5 mg BID GTB Last administered on 03/02/17 09:31; Admin Dose 12.5 MG; Start 02/22/17 at 22:30 Apixaban (Eliquis) 5 mg BID GTB Last administered on 03/02/17 09:30; Admin Dose 5 MG; Start 02/22/17 at 22:00 LAWRENCE PICKERING Mar 02, 2017 15:45
--- NOTE | 2017-03-02 19:29 | CONS ---
Date/Time of Note Date/Time of Note DATE: 03/02/17 TIME: 19:28 Assessment/Plan Assessment/Plan Chief Complaint/Hosp Course Assessment/impression: - s/p UTI due to proteus - diffuse moderate degree of gastritis s/p EGD 02/15/2017 - gastritis due to H. pylori based on pathology 02/15/2017, on clarithromycin based regimen (02/20/2017-), [id number] - bleeding from GT site, and blood clots in tube feed - resolved - recurrent CVA - possible aspiration, improved - encephalopathy due to CVA. CSF from 01/19/2017: WBC=3, RBC=0, glu 53, pro=61, CSF ([place] serology negative, HSV negative, cocci CF negative, encephalitis meningitis panel could not be done due to a lack of sample), serum ([place] PCR negative, crypto antigen negative, cocci CF negative, histo CF negative). my order of crypto in CSF was cancelled and no reason given - bacteremia due to CoNS, probable contaminant. 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 pylori (02/20/2017-), clarithro, amoxicillin and lansoprazole. Planned through 03/06/2017 management d/w Pt and her female family member Problems: Consultation Date/Type/Reason Admit Date/Time Jan 16, 2017 at 15:19 Initial Consult Date 01/17/17 Type of Consultation: ID Referring Provider: LAWRENCE PICKERING 24 HR Interval Summary Subjective hx not possible: pt non-verbal Exam/Review of Systems Vital Signs Vitals Vital Signs Date Time Temp Pulse Resp B/P Pulse Ox O2 Delivery O2 Flow Rate FiO2 03/02/17 16:20 88 03/02/17 15:24 97.5 16 92/56 98 03/02/17 14:25 21 02/27/17 04:00 Room Air Intake and Output 8/28/17 8/28/17 8/29/17 15:00 23:00 07:00 Intake Total 950 ml 900 ml Output Total 700 ml 850 ml Balance 250 ml 50 ml Exam Constitutional: frail, non-verbal Psych: confusion Head: normocephalic Eyes: nl conjunctiva, nl lids, nl sclera, other (L ptosis) ENMT: nl external ears & nose, nl nasal mucosa & septum Respiratory: diminished breath sounds Cardiovascular: nl pulses, regular rate and rhythm Gastrointestinal: non-tender, other (GT), soft Extremities: No edema Neurological: confused Results Result Diagram: 03/01/17 0600 03/01/17 0600 Medications Medications Current Medications Miscellaneous Information 1 ea NOTE XX ; Start 01/17/17 at 10:00 Glucose (Glutose) 15 gm Q15M PRN PO DECREASED GLUCOSE; Start 01/17/17 at 10:00 Glucose (Glutose) 22.5 gm Q15M PRN PO DECREASED GLUCOSE; Start 01/17/17 at 10: 00 Dextrose (D50w Syringe) 25 ml Q15M PRN IV DECREASED GLUCOSE; Start 01/17/17 at 10:00 Dextrose (D50w Syringe) 50 ml Q15M PRN IV DECREASED GLUCOSE; Start 01/17/17 at 10:00 Glucagon (Glucagen) 1 mg Q15M PRN IM DECREASED GLUCOSE; Start 01/17/17 at 10:00 Glucose (Glutose) 15 gm Q15M PRN BUCCAL DECREASED GLUCOSE; Start 01/17/17 at 10 :00 Collagenase (Santyl) 1 applic DAILY TOP Last administered on 03/02/17 09:32; Admin Dose 1 APPLIC; Start 01/17/17 at 21:00 IV Flush (NS 10 ml) 10 ml PRN PRN IV IV PROTOCOL Last administered on 21:45; Admin Dose 10 ML; Start 01/22/17 at 12:00 Miscellaneous Information (Pending Santyl Order For Wound Care) This patient dunaway... PRN PRN XX WOUND CARE; Start 01/24/17 at 07:30 Bisacodyl (Dulcolax Supp) 10 mg DAILY PRN [place] CONSTIPATION Last administered on 02/24/17 15:02; Admin Dose 10 MG; Start 01/25/17 at 16:30 Acetaminophen (Tylenol Liquid) 650 mg Q4H PRN NGT PAIN AND OR ELEVATED TEMP Last administered on 02/25/17 11:00; Admin Dose 650 MG; Start 01/26/17 at 09:00 Metoprolol Tartrate (Lopressor) 2.5 mg Q4H PRN IV HR > 110 Last administered on 02/23/17 03:58; Admin Dose 2.5 MG; Start 01/26/17 at 15:00 Midodrine (Proamatine) 5 mg Q8 PRN GTB BLOOD PRESSURE SUPPORT Last administered on 02/24/17 00:52; Admin Dose 5 MG; Start 01/28/17 at 16:30 Nystatin (Nystatin Powder) 1 applic BID TOP Last administered on 03/02/17 09: 32; Admin Dose 1 APPLIC; Start 02/04/17 at 12:00 Eye Lubricant (Artificial Tears Oph) 2 drop Q6H PRN BOTH EYES DRY EYES Last administered on 03/01/17 15:58; Admin Dose 2 DROP; Start 02/13/17 at 15:30 Nystatin (Nystatin Susp) 5 ml QID GTB Last administered on 03/02/17 16:39; Admin Dose 5 ML; Start 02/18/17 at 08:00 Lansoprazole (Prevacid) 30 mg BID@06,18 GTB Last administered on 03/02/17 16: 39; Admin Dose 30 MG; Start 02/18/17 at 18:00 Amoxicillin (Amoxicillin Susp) 1,000 mg BID GTB Last administered on 03/02/17 09:43; Admin Dose 1,000 MG; Start 02/20/17 at 21:00; Stop 03/06/17 at 20:59 Clarithromycin (Biaxin) 500 mg BID GTB Last administered on 03/02/17 09:29; Admin Dose 500 MG; Start 02/20/17 at 21:00 Metoprolol Tartrate (Lopressor) 12.5 mg BID GTB Last administered on 03/02/17 09:31; Admin Dose 12.5 MG; Start 02/22/17 at 22:30 Apixaban (Eliquis) 5 mg BID GTB Last administered on 03/02/17 09:30; Admin Dose 5 MG; Start 02/22/17 at 22:00 TYE STYLES M.D. Mar 02, 2017 19:29
[2017-03-02] MEDS: ARTIFICIAL TEARS 15 ML OPH BOTH EYES PRN (21:53)
[2017-03-03] VITALS (13 sets, daily range): BP systolic 94–117; BP diastolic 54–65; PULSE 76–107; RESP 18–20
[2017-03-03] MEDS: LEVALBUTEROL (NEB) 0.63 MG/3 ML AMP HHN SCH ×4 (01:30→19:40)
[2017-03-03] MEDS: LANSOPRAZOLE 30 MG CAP GTB SCH ×2 (05:17→17:22)
[2017-03-03 08:42] LABS: BASOPHIL # 0.1 10^3/ul (0.0-0.1); BASOPHILS % 0.8 % (0.0-2.0); EOSINOPHILS # 0.3 10^3/ul (0.0-0.5); EOSINOPHILS % 2.9 % (0.0-7.0); HEMATOCRIT 33.4 % (37.0-47.0); HEMOGLOBIN 10.8 g/dl (12.0-16.0); LYMPHOCYTES # 1.9 10^3/ul (0.8-2.9); LYMPHOCYTES % 19.9 % (15.0-51.0); MEAN CORPUSCULAR HEMOGLOBIN 27.3 pg (29.0-33.0); MEAN CORPUSCULAR HGB CONC 32.3 g/dl (32.0-37.0); MEAN CORPUSCULAR VOLUME 84.3 fl (82.0-101.0); MEAN PLATELET VOLUME 12.3 fl (7.4-10.4); MONOCYTE # 0.5 10^3/ul (0.3-0.9); MONOCYTES % 5.6 % (0.0-11.0); NEUTROPHILS % 70.4 % (39.0-77.0); PLATELET COUNT 410 10^3/UL (140-415); RED BLOOD COUNT 3.96 10^6/ul (4.20-5.40); RED CELL DISTRIBUTION WIDTH 17.2 % (11.5-14.5); WHITE BLOOD COUNT 9.7 10^3/ul (4.8-10.8)
[2017-03-03] MEDS: METOPROLOL 25 MG TAB GTB SCH ×2 (09:00→20:19)
[2017-03-03] MEDS: CLARITHROMYCIN 500 MG TAB GTB SCH ×2 (09:00→20:20)
[2017-03-03] MEDS: NYSTATIN SUSP 5 ML CUP GTB SCH ×4 (09:00→20:20)
[2017-03-03] MEDS: APIXABAN 5 MG TABLET GTB SCH ×2 (09:01→20:20)
[2017-03-03] MEDS: NYSTATIN 30 GM POWDER BTL TOP SCH ×2 (09:01→20:21)
[2017-03-03] MEDS: COLLAGENASE 30 GM TUBE TOP SCH (09:02)
[2017-03-03] MEDS: AMOXICILLIN (50 MG/ML PO SYG) GTB SCH ×2 (09:05→20:20)
[2017-03-03 09:07] LABS: CALCIUM 10.1 mg/dl (8.4-10.2); CREATININE 0.87 mg/dl (0.44-1.00); POTASSIUM 3.8 mmol/L (3.5-5.1)
--- NOTE | 2017-03-03 15:30 | PN ---
Date/Time of Note Date/Time of Note DATE: 03/03/17 TIME: 15:27 Assessment/Plan VTE Prophylaxis VTE Prophylaxis Intervention: SCD's Lines/Catheters IV [facility]from [facility] PICC Line Central line still needed: Yes Urinary Cath still in place: Yes Reason Cath still needed: urinary retention Assessment/Plan Chief Complaint/Hosp Course Patient is awake alert, responds to verbal stimuli by answering basik questions appropriately, atrial fibrillation at controlled rate, pending shelter facility placement. Assessment/Plan - Urinary tract infection, continue antibiotics per ID. Dr. Abarca is following in an infection disease consultation. - Gastritis due to H. pylori, continue triple therapy per H. pylori eradication - Possible bleeding from G-tube and hematuria, resolved status post EGD was notion of gastritis, continue Protonix. - Bilateral thalamic infarctions. - Dysphagia, status post G-tube placement by Dr. Garcia. - Atrial fibrillation with rapid ventricular response. Dr. Armenta is following and cardiology consultation. Continue Eliquis. - Thrombosis of the bilateral cephalic veins. - Acute kidney injury, resolved. - History of CVA - History of hyperlipidemia Further recommendations based on clinical course. Plan of care discussed with Dr. Valdovinos. Problems: Exam/Review of Systems Vital Signs Vitals Vital Signs Date Time Temp Pulse Resp B/P Pulse Ox O2 Delivery O2 Flow Rate FiO2 03/03/17 15:14 98.0 60 18 97/54 99 03/03/17 07:40 21 Intake and Output 03/02/17 03/02/17 03/03/17 15:00 23:00 07:00 Intake Total 950 ml 1000 ml Output Total 400 ml 700 ml Balance 550 ml 300 ml Exam Constitutional: awake Respiratory: normal air movement Cardiovascular: irregular rhythm Gastrointestinal: non-tender, other (G-tube), soft Genitourinary - Female: other (Lees catheter) Musculoskeletal: muscle weakness Neurological: focal weakness Results Result Diagram: 03/03/17 0825 03/03/17 0825 Results 24 hrs Laboratory Tests Test 03/03/17 08:25 White Blood Count 9.7 Red Blood Count 3.96 L Hemoglobin 10.8 L Hematocrit 33.4 L Mean Corpuscular Volume 84.3 Mean Corpuscular Hemoglobin 27.3 L Mean Corpuscular Hemoglobin Concent 32.3 Red Cell Distribution Width 17.2 H Platelet Count 410 Mean Platelet Volume 12.3 H Neutrophils % 70.4 Lymphocytes % 19.9 Monocytes % 5.6 Eosinophils % 2.9 Basophils % 0.8 Nucleated Red Blood Cells % 0.0 Neutrophils # (Manual) 6.8 Lymphocytes # 1.9 Monocytes # 0.5 Eosinophils # 0.3 Basophils # 0.1 Nucleated Red Blood Cells # 0.0 Sodium Level 146 H Potassium Level 3.8 Chloride Level 104 Carbon Dioxide Level 26 Anion Gap 20 H Blood Urea Nitrogen 26 H Creatinine 0.87 Glucose Level 132 Calcium Level 10.1 Medications Medications Current Medications Miscellaneous Information 1 ea NOTE XX ; Start 01/17/17 at 10:00 Glucose (Glutose) 15 gm Q15M PRN PO DECREASED GLUCOSE; Start 01/17/17 at 10:00 Glucose (Glutose) 22.5 gm Q15M PRN PO DECREASED GLUCOSE; Start 01/17/17 at 10: 00 Dextrose (D50w Syringe) 25 ml Q15M PRN IV DECREASED GLUCOSE; Start 01/17/17 at 10:00 Dextrose (D50w Syringe) 50 ml Q15M PRN IV DECREASED GLUCOSE; Start 01/17/17 at 10:00 Glucagon (Glucagen) 1 mg Q15M PRN IM DECREASED GLUCOSE; Start 01/17/17 at 10:00 Glucose (Glutose) 15 gm Q15M PRN BUCCAL DECREASED GLUCOSE; Start 01/17/17 at 10 :00 Collagenase (Santyl) 1 applic DAILY TOP Last administered on 03/03/17 09:02; Admin Dose 1 APPLIC; Start 01/17/17 at 21:00 IV Flush (NS 10 ml) 10 ml PRN PRN IV IV PROTOCOL Last administered on 21:45; Admin Dose 10 ML; Start 01/22/17 at 12:00 Miscellaneous Information (Pending Santyl Order For Wound Care) This patient dunaway... PRN PRN XX WOUND CARE; Start 01/24/17 at 07:30 Bisacodyl (Dulcolax Supp) 10 mg DAILY PRN [place] CONSTIPATION Last administered on 02/24/17 15:02; Admin Dose 10 MG; Start 01/25/17 at 16:30 Acetaminophen (Tylenol Liquid) 650 mg Q4H PRN NGT PAIN AND OR ELEVATED TEMP Last administered on 02/25/17 11:00; Admin Dose 650 MG; Start 01/26/17 at 09:00 Metoprolol Tartrate (Lopressor) 2.5 mg Q4H PRN IV HR > 110 Last administered on 02/23/17 03:58; Admin Dose 2.5 MG; Start 01/26/17 at 15:00 Midodrine (Proamatine) 5 mg Q8 PRN GTB BLOOD PRESSURE SUPPORT Last administered on 02/24/17 00:52; Admin Dose 5 MG; Start 01/28/17 at 16:30 Nystatin (Nystatin Powder) 1 applic BID TOP Last administered on 03/03/17 09: 01; Admin Dose 1 APPLIC; Start 02/04/17 at 12:00 Eye Lubricant (Artificial Tears Oph) 2 drop Q6H PRN BOTH EYES DRY EYES Last administered on 03/02/17 21:53; Admin Dose 2 DROP; Start 02/13/17 at 15:30 Nystatin (Nystatin Susp) 5 ml QID GTB Last administered on 03/03/17 12:31; Admin Dose 5 ML; Start 02/18/17 at 08:00 Lansoprazole (Prevacid) 30 mg BID@06,18 GTB Last administered on 03/03/17 05: 17; Admin Dose 30 MG; Start 02/18/17 at 18:00 Amoxicillin (Amoxicillin Susp) 1,000 mg BID GTB Last administered on 03/03/17 09:05; Admin Dose 1,000 MG; Start 02/20/17 at 21:00; Stop 03/06/17 at 20:59 Clarithromycin (Biaxin) 500 mg BID GTB Last administered on 03/03/17 09:00; Admin Dose 500 MG; Start 02/20/17 at 21:00 Metoprolol Tartrate (Lopressor) 12.5 mg BID GTB Last administered on 03/03/17 09:00; Admin Dose 12.5 MG; Start 02/22/17 at 22:30 Apixaban (Eliquis) 5 mg BID GTB Last administered on 03/03/17 09:01; Admin Dose 5 MG; Start 02/22/17 at 22:00 LAWRENCE PICKERING Mar 03, 2017 15:30
[2017-03-03] MEDS: ARTIFICIAL TEARS 15 ML OPH BOTH EYES PRN ×2 (15:43→20:20)
--- NOTE | 2017-03-03 17:23 | CONS ---
Date/Time of Note Date/Time of Note DATE: 03/03/17 TIME: 17:21 Assessment/Plan Assessment/Plan Chief Complaint/Hosp Course IMP: 1. AF-mainly rate controlled/Trop negative x 3. Had pause x 3.7 seconds 01/30 on standing IVP BB. No recurrence since decrease in IVP BB. Tolerating low dose PO BB well 2.Hypotension-on midodrine 3.encephalopathy/ams 4.coagulopathy-now on eliquis 5. Acute Renal failure-Now resolved 6.Leukocytosis 7. Cardiomyopathy-EF 45% 8. Cephalic vein thrombosis 9. Dysphagia s/p PEG 10. H Pylori Recc: -Tele -serial ecg's -Cont. Eliquis -Continue low dose BB as tolerated only -Continue abx's -Follow MS closely which has had some mild improvement -Continue midodrine for low BP -Continue treatment for H Pylori -No definite indication for PPM at this time Problems: Consultation Date/Type/Reason Admit Date/Time Jan 16, 2017 at 15:19 Initial Consult Date 01/17/17 Type of Consultation: cardiology Reason for Consultation AF Referring Provider: LAWRENCE PICKERING Exam/Review of Systems Vital Signs Vitals Vital Signs Date Time Temp Pulse Resp B/P Pulse Ox O2 Delivery O2 Flow Rate FiO2 03/03/17 16:30 93 03/03/17 15:14 98.0 18 97/54 99 03/03/17 07:40 21 Intake and Output 03/02/17 03/02/17 03/03/17 15:00 23:00 07:00 Intake Total 950 ml 1000 ml Output Total 400 ml 700 ml Balance 550 ml 300 ml Exam Review of Systems: CONSTITUTIONAL: No fevers, chills. PULMONARY: No sob CARDIOVASCULAR: No chest pain/palpitations GASTROINTESTINAL: No nausea/vomiting. GENITOURINARY: No hematuria/dysuria. MUSCULOSKELETAL: No myagias/arthalgias. PSYCHIATRIC: The patient denies depression. NEUROLOGIC: No weakness Constitutional: alert, oriented Psych: no complaints ENMT: mucosa pink and moist Neck: jvd (9cm water), supple Cardiovascular: irregular rhythm Gastrointestinal: non-tender, soft Musculoskeletal: muscle tone (normal) Extremities: edema (none) Results Result Diagram: 03/03/17 0825 03/03/17 0825 Results 24 hrs Laboratory Tests Test 03/03/17 08:25 White Blood Count 9.7 Red Blood Count 3.96 L Hemoglobin 10.8 L Hematocrit 33.4 L Mean Corpuscular Volume 84.3 Mean Corpuscular Hemoglobin 27.3 L Mean Corpuscular Hemoglobin Concent 32.3 Red Cell Distribution Width 17.2 H Platelet Count 410 Mean Platelet Volume 12.3 H Neutrophils % 70.4 Lymphocytes % 19.9 Monocytes % 5.6 Eosinophils % 2.9 Basophils % 0.8 Nucleated Red Blood Cells % 0.0 Neutrophils # (Manual) 6.8 Lymphocytes # 1.9 Monocytes # 0.5 Eosinophils # 0.3 Basophils # 0.1 Nucleated Red Blood Cells # 0.0 Sodium Level 146 H Potassium Level 3.8 Chloride Level 104 Carbon Dioxide Level 26 Anion Gap 20 H Blood Urea Nitrogen 26 H Creatinine 0.87 Glucose Level 132 Calcium Level 10.1 Medications Medications Current Medications Miscellaneous Information 1 ea NOTE XX ; Start 01/17/17 at 10:00 Glucose (Glutose) 15 gm Q15M PRN PO DECREASED GLUCOSE; Start 01/17/17 at 10:00 Glucose (Glutose) 22.5 gm Q15M PRN PO DECREASED GLUCOSE; Start 01/17/17 at 10: 00 Dextrose (D50w Syringe) 25 ml Q15M PRN IV DECREASED GLUCOSE; Start 01/17/17 at 10:00 Dextrose (D50w Syringe) 50 ml Q15M PRN IV DECREASED GLUCOSE; Start 01/17/17 at 10:00 Glucagon (Glucagen) 1 mg Q15M PRN IM DECREASED GLUCOSE; Start 01/17/17 at 10:00 Glucose (Glutose) 15 gm Q15M PRN BUCCAL DECREASED GLUCOSE; Start 01/17/17 at 10 :00 Collagenase (Santyl) 1 applic DAILY TOP Last administered on 03/03/17 09:02; Admin Dose 1 APPLIC; Start 01/17/17 at 21:00 IV Flush (NS 10 ml) 10 ml PRN PRN IV IV PROTOCOL Last administered on 21:45; Admin Dose 10 ML; Start 01/22/17 at 12:00 Miscellaneous Information (Pending Santyl Order For Wound Care) This patient dunaway... PRN PRN XX WOUND CARE; Start 01/24/17 at 07:30 Bisacodyl (Dulcolax Supp) 10 mg DAILY PRN [place] CONSTIPATION Last administered on 02/24/17 15:02; Admin Dose 10 MG; Start 01/25/17 at 16:30 Acetaminophen (Tylenol Liquid) 650 mg Q4H PRN NGT PAIN AND OR ELEVATED TEMP Last administered on 02/25/17 11:00; Admin Dose 650 MG; Start 01/26/17 at 09:00 Metoprolol Tartrate (Lopressor) 2.5 mg Q4H PRN IV HR > 110 Last administered on 02/23/17 03:58; Admin Dose 2.5 MG; Start 01/26/17 at 15:00 Midodrine (Proamatine) 5 mg Q8 PRN GTB BLOOD PRESSURE SUPPORT Last administered on 02/24/17 00:52; Admin Dose 5 MG; Start 01/28/17 at 16:30 Nystatin (Nystatin Powder) 1 applic BID TOP Last administered on 03/03/17 09: 01; Admin Dose 1 APPLIC; Start 02/04/17 at 12:00 Eye Lubricant (Artificial Tears Oph) 2 drop Q6H PRN BOTH EYES DRY EYES Last administered on 03/03/17 15:43; Admin Dose 2 DROP; Start 02/13/17 at 15:30 Nystatin (Nystatin Susp) 5 ml QID GTB Last administered on 03/03/17 12:31; Admin Dose 5 ML; Start 02/18/17 at 08:00 Lansoprazole (Prevacid) 30 mg BID@06,18 GTB Last administered on 03/03/17 05: 17; Admin Dose 30 MG; Start 02/18/17 at 18:00 Amoxicillin (Amoxicillin Susp) 1,000 mg BID GTB Last administered on 03/03/17 09:05; Admin Dose 1,000 MG; Start 02/20/17 at 21:00; Stop 03/06/17 at 20:59 Clarithromycin (Biaxin) 500 mg BID GTB Last administered on 03/03/17 09:00; Admin Dose 500 MG; Start 02/20/17 at 21:00 Metoprolol Tartrate (Lopressor) 12.5 mg BID GTB Last administered on 03/03/17 09:00; Admin Dose 12.5 MG; Start 02/22/17 at 22:30 Apixaban (Eliquis) 5 mg BID GTB Last administered on 03/03/17t 09:01; Admin Dose 5 MG; Start 02/22/17 at 22:00 MINOO REY Mar 03, 2017 17:23
--- NOTE | 2017-03-03 20:43 | CONS ---
[facility] HCIS Consult Follow up SOAP Patient Name: Nilda Mcmullen Unit Number: [id number] Date of : 1955 Patient Status: Admitted Inpatient Attending Doctor: Kana Valdovinos MD Edit: TYE CARBAJAL M.D. on 03/04/17 @ 09:59 Raven attestation: I discussed the management with LUNA De Jesus and agree with her note. Date/Time of Note Date/Time of Note DATE: 03/03/17 TIME: 20:34 Consult Date/Type/Reason Admit Date/Time Jan 16, 2017 at 15:19 Initial Consult Date 01/26/17 Type of Consultation: INFECTIOUS DISEASE Ordering Provider: LAWRENCE PICKERING Subjective awake and interacting with family Objective Vital Signs Date Time Temp Pulse Resp B/P Pulse Ox O2 Delivery O2 Flow Rate FiO2 03/03/17 19:40 88 18 98 21 03/03/17 19:16 97.7 106/58 Intake and Output 03/02/17 03/02/17 03/03/17 15:00 23:00 07:00 Intake Total 950 ml 1000 ml Output Total 400 ml 700 ml Balance 550 ml 300 ml Exam Constitutional: awake and interacting with family Psych: smiling Head: atraumatic, normocephalic ENMT: normal external ears & nose Respiratory: diminished breath sounds Cardiovascular: irregular rate and rhythm Gastrointestinal: soft, non-distended, non-tender, GT in place, TF infusing Genitourinary - pedersen catheter in place Musculoskeletal: normal extremities to inspection Extremities: warm, dry, no edema, palpable pulses, Piccline LUE, no e/o infection Skin: warm, dry , normal turgor, healed surgical scar LLE Results/Medications Result Diagram: 03/03/17 0825 03/03/17 0825 Results 24 hrs Laboratory Tests Test 03/03/17 08:25 White Blood Count 9.7 Red Blood Count 3.96 L Hemoglobin 10.8 L Hematocrit 33.4 L Mean Corpuscular Volume 84.3 Mean Corpuscular Hemoglobin 27.3 L Mean Corpuscular Hemoglobin Concent 32.3 Red Cell Distribution Width 17.2 H Platelet Count 410 Mean Platelet Volume 12.3 H Neutrophils % 70.4 Lymphocytes % 19.9 Monocytes % 5.6 Eosinophils % 2.9 Basophils % 0.8 Nucleated Red Blood Cells % 0.0 Neutrophils # (Manual) 6.8 Lymphocytes # 1.9 Monocytes # 0.5 Eosinophils # 0.3 Basophils # 0.1 Nucleated Red Blood Cells # 0.0 Sodium Level 146 H Potassium Level 3.8 Chloride Level 104 Carbon Dioxide Level 26 Anion Gap 20 H Blood Urea Nitrogen 26 H Creatinine 0.87 Glucose Level 132 Calcium Level 10.1 Medications Current Medications Miscellaneous Information 1 ea NOTE XX ; Start 01/17/17 at 10:00 Glucose (Glutose) 15 gm Q15M PRN PO DECREASED GLUCOSE; Start 01/17/17 at 10:00 Glucose (Glutose) 22.5 gm Q15M PRN PO DECREASED GLUCOSE; Start 01/17/17 at 10: 00 Dextrose (D50w Syringe) 25 ml Q15M PRN IV DECREASED GLUCOSE; Start 01/17/17 at 10:00 Dextrose (D50w Syringe) 50 ml Q15M PRN IV DECREASED GLUCOSE; Start 01/17/17 at 10:00 Glucagon (Glucagen) 1 mg Q15M PRN IM DECREASED GLUCOSE; Start 01/17/17 at 10:00 Glucose (Glutose) 15 gm Q15M PRN BUCCAL DECREASED GLUCOSE; Start 01/17/17 at 10 :00 Collagenase (Santyl) 1 applic DAILY TOP Last administered on 03/03/17 09:02; Admin Dose 1 APPLIC; Start 01/17/17 at 21:00 IV Flush (NS 10 ml) 10 ml PRN PRN IV IV PROTOCOL Last administered on 21:45; Admin Dose 10 ML; Start 01/22/17 at 12:00 Miscellaneous Information (Pending Santyl Order For Wound Care) This patient dunaway... PRN PRN XX WOUND CARE; Start 01/24/17 at 07:30 Bisacodyl (Dulcolax Supp) 10 mg DAILY PRN [place] CONSTIPATION Last administered on 02/24/17 15:02; Admin Dose 10 MG; Start 01/25/17 at 16:30 Acetaminophen (Tylenol Liquid) 650 mg Q4H PRN NGT PAIN AND OR ELEVATED TEMP Last administered on 02/25/17 11:00; Admin Dose 650 MG; Start 01/26/17 at 09:00 Metoprolol Tartrate (Lopressor) 2.5 mg Q4H PRN IV HR > 110 Last administered on 02/23/17 03:58; Admin Dose 2.5 MG; Start 01/26/17 at 15:00 Midodrine (Proamatine) 5 mg Q8 PRN GTB BLOOD PRESSURE SUPPORT Last administered on 02/24/17 00:52; Admin Dose 5 MG; Start 01/28/17 at 16:30 Nystatin (Nystatin Powder) 1 applic BID TOP Last administered on 03/03/17 20: 21; Admin Dose 1 APPLIC; Start 02/04/17 at 12:00 Eye Lubricant (Artificial Tears Oph) 2 drop Q6H PRN BOTH EYES DRY EYES Last administered on 03/03/17 20:20; Admin Dose 2 DROP; Start 02/13/17 at 15:30 Nystatin (Nystatin Susp) 5 ml QID GTB Last administered on 03/03/17 20:20; Admin Dose 5 ML; Start 02/18/17 at 08:00 Lansoprazole (Prevacid) 30 mg BID@,18 GTB Last administered on 03/03/17 17: 22; Admin Dose 30 MG; Start 02/18/17 at 18:00 Amoxicillin (Amoxicillin Susp) 1,000 mg BID GTB Last administered on 03/03/17 20:20; Admin Dose 1,000 MG; Start 02/20/17 at 21:00; Stop 03/06/17 at 20:59 Clarithromycin (Biaxin) 500 mg BID GTB Last administered on 03/03/17 20:20; Admin Dose 500 MG; Start 02/20/17 at 21:00 Metoprolol Tartrate (Lopressor) 12.5 mg BID GTB Last administered on 03/03/17 09:00; Admin Dose 12.5 MG; Start 02/22/17 at 22:30 Apixaban (Eliquis) 5 mg BID GTB Last administered on 03/03/17t 20:20; Admin Dose 5 MG; Start 02/22/17 at 22:00 Assessment/Plan Chief Complaint/Hosp Course Assessment/impression: - s/p UTI due to proteus - diffuse moderate degree of gastritis s/p EGD 02/15/2017 - gastritis due to H. pylori based on pathology 02/15/2017, on clarithromycin based regimen (02/20/2017-), [id number] - bleeding from GT site, and blood clots in tube feed - resolved - recurrent CVA - possible aspiration, improved - encephalopathy due to CVA. CSF from 01/19/2017: WBC=3, RBC=0, glu 53, pro=61, CSF ([place] serology negative, HSV negative, cocci CF negative, encephalitis meningitis panel could not be done due to a lack of sample), serum ([place] PCR negative, crypto antigen negative, cocci CF negative, histo CF negative). my order of crypto in CSF was cancelled and no reason given - bacteremia due to CoNS, probable contaminant. 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 pylori (02/20/2017-), clarithro, amoxicillin and lansoprazole. Planned through 03/06/2017 care and management d/w patient's son and [id number], nurse Juan and Dr. Carbajal Problems: Additional Assessment/Plan CLAUDY DE JESUS Mar 03, 2017 20:43
[2017-03-04] VITALS (12 sets, daily range): BP systolic 97–119; BP diastolic 54–66; PULSE 72–113; RESP 16–19
[2017-03-04] MEDS: LEVALBUTEROL (NEB) 0.63 MG/3 ML AMP HHN SCH ×4 (01:27→19:51)
[2017-03-04] MEDS: LANSOPRAZOLE 30 MG CAP GTB SCH ×2 (05:33→17:07)
[2017-03-04 07:37] LABS: BASOPHIL # 0.1 10^3/ul (0.0-0.1); BASOPHILS % 1.4 % (0.0-2.0); EOSINOPHILS # 0.3 10^3/ul (0.0-0.5); EOSINOPHILS % 3.4 % (0.0-7.0); HEMATOCRIT 32.9 % (37.0-47.0); HEMOGLOBIN 10.3 g/dl (12.0-16.0); LYMPHOCYTES # 1.3 10^3/ul (0.8-2.9); LYMPHOCYTES % 16.8 % (15.0-51.0); MEAN CORPUSCULAR HEMOGLOBIN 26.4 pg (29.0-33.0); MEAN CORPUSCULAR HGB CONC 31.3 g/dl (32.0-37.0); MEAN CORPUSCULAR VOLUME 84.4 fl (82.0-101.0); MEAN PLATELET VOLUME 12.6 fl (7.4-10.4); MONOCYTE # 0.5 10^3/ul (0.3-0.9); MONOCYTES % 6.5 % (0.0-11.0); NEUTROPHILS % 71.5 % (39.0-77.0); PLATELET COUNT 393 10^3/UL (140-415); RED CELL DISTRIBUTION WIDTH 17.7 % (11.5-14.5); WHITE BLOOD COUNT 7.7 10^3/ul (4.8-10.8)
[2017-03-04 08:06] LABS: CREATININE 0.86 mg/dl (0.44-1.00); POTASSIUM 3.9 mmol/L (3.5-5.1)
[2017-03-04] MEDS: AMOXICILLIN (50 MG/ML PO SYG) GTB SCH ×2 (08:40→22:13)
[2017-03-04] MEDS: METOPROLOL 25 MG TAB GTB SCH ×2 (08:41→21:25)
[2017-03-04] MEDS: APIXABAN 5 MG TABLET GTB SCH ×2 (08:42→21:23)
[2017-03-04] MEDS: CLARITHROMYCIN 500 MG TAB GTB SCH ×2 (08:42→21:23)
[2017-03-04] MEDS: NYSTATIN SUSP 5 ML CUP GTB SCH ×4 (08:42→21:23)
[2017-03-04] MEDS: COLLAGENASE 30 GM TUBE TOP SCH (08:44)
[2017-03-04] MEDS: NYSTATIN 30 GM POWDER BTL TOP SCH ×2 (08:44→21:26)
--- NOTE | 2017-03-04 15:48 | PN ---
Date/Time of Note Date/Time of Note DATE: 03/04/17 TIME: 15:45 Assessment/Plan VTE Prophylaxis VTE Prophylaxis Intervention: other Lines/Catheters IV C[facility] Type [facility]from [facility] PICC Line Central line still needed: Yes Urinary Cath still in place: Yes Reason Cath still needed: urinary retention Assessment/Plan Assessment/Plan - Urinary tract infection, continue antibiotics per ID. Dr. Abarca is following in an infection disease consultation. - Gastritis due to H. pylori, continue triple therapy per H. pylori eradication - Possible bleeding from G-tube and hematuria, resolved status post EGD was notion of gastritis, continue Protonix. - Bilateral thalamic infarctions. - Dysphagia, status post G-tube placement by Dr. Garcia. - Atrial fibrillation with rapid ventricular response. Dr. Armenta is following and cardiology consultation. Continue Eliquis. - Thrombosis of the bilateral cephalic veins. - Acute kidney injury, resolved. - History of CVA - History of hyperlipidemia Further recommendations based on clinical course. Plan of care discussed with Dr. Valdovinos. Subjective 24 Hr Interval Summary Free Text/Dictation afebrile, more alert, responsive, answers simple Qs, follows simple command , at bed side - all Qs answered.tolerating PT. Dw staff Constitutional: improved, requiring O2 Respiratory: no complaints Cardiovascular: no complaints Gastrointestinal: no complaints Musculoskeletal: no complaints Exam/Review of Systems Vital Signs Vitals Vital Signs Date Time Temp Pulse Resp B/P Pulse Ox O2 Delivery O2 Flow Rate FiO2 03/04/17 13:37 86 18 95 21 03/04/17 11:29 98.0 112/66 Intake and Output 03/03/17 03/03/17 03/04/17 15:00 23:00 07:00 Intake Total 950 ml 1000 ml Output Total 550 ml 900 ml Balance 400 ml 100 ml Exam Constitutional: alert, well developed Neck: non-tender Respiratory: clear to auscultation Cardiovascular: nl pulses, regular rate and rhythm Gastrointestinal: non-tender, other, soft Musculoskeletal: nl extremities to inspection Extremities: normal pulses Neurological: other Results Result Diagram: 03/04/17 0647 03/04/17 0647 Results 24 hrs Laboratory Tests Test 03/04/17 06:47 White Blood Count 7.7 # Red Blood Count 3.90 L Hemoglobin 10.3 L Hematocrit 32.9 L Mean Corpuscular Volume 84.4 Mean Corpuscular Hemoglobin 26.4 L Mean Corpuscular Hemoglobin Concent 31.3 L Red Cell Distribution Width 17.7 H Platelet Count 393 Mean Platelet Volume 12.6 H Neutrophils % 71.5 Lymphocytes % 16.8 Monocytes % 6.5 Eosinophils % 3.4 Basophils % 1.4 Nucleated Red Blood Cells % 0.0 Neutrophils # (Manual) 5.5 Lymphocytes # 1.3 Monocytes # 0.5 Eosinophils # 0.3 Basophils # 0.1 Nucleated Red Blood Cells # 0.0 Sodium Level 148 H Potassium Level 3.9 Chloride Level 104 Carbon Dioxide Level 26 Anion Gap 22 H Blood Urea Nitrogen 23 H Creatinine 0.86 Glucose Level 123 Calcium Level 10.0 Medications Medications Current Medications Miscellaneous Information 1 ea NOTE XX ; Start 01/17/17 at 10:00 Glucose (Glutose) 15 gm Q15M PRN PO DECREASED GLUCOSE; Start 01/17/17 at 10:00 Glucose (Glutose) 22.5 gm Q15M PRN PO DECREASED GLUCOSE; Start 01/17/17 at 10: 00 Dextrose (D50w Syringe) 25 ml Q15M PRN IV DECREASED GLUCOSE; Start 01/17/17 at 10:00 Dextrose (D50w Syringe) 50 ml Q15M PRN IV DECREASED GLUCOSE; Start 01/17/17 at 10:00 Glucagon (Glucagen) 1 mg Q15M PRN IM DECREASED GLUCOSE; Start 01/17/17 at 10:00 Glucose (Glutose) 15 gm Q15M PRN BUCCAL DECREASED GLUCOSE; Start 01/17/17 at 10 :00 Collagenase (Santyl) 1 applic DAILY TOP Last administered on 03/04/17 08:44; Admin Dose 1 APPLIC; Start 01/17/17 at 21:00 IV Flush (NS 10 ml) 10 ml PRN PRN IV IV PROTOCOL Last administered on 21:45; Admin Dose 10 ML; Start 01/22/17 at 12:00 Miscellaneous Information (Pending Santyl Order For Wound Care) This patient dunaway... PRN PRN XX WOUND CARE; Start 01/24/17 at 07:30 Bisacodyl (Dulcolax Supp) 10 mg DAILY PRN [place] CONSTIPATION Last administered on 02/24/17 15:02; Admin Dose 10 MG; Start 01/25/17 at 16:30 Acetaminophen (Tylenol Liquid) 650 mg Q4H PRN NGT PAIN AND OR ELEVATED TEMP Last administered on 02/25/17 11:00; Admin Dose 650 MG; Start 01/26/17 at 09:00 Metoprolol Tartrate (Lopressor) 2.5 mg Q4H PRN IV HR > 110 Last administered on 02/23/17 03:58; Admin Dose 2.5 MG; Start 01/26/17 at 15:00 Midodrine (Proamatine) 5 mg Q8 PRN GTB BLOOD PRESSURE SUPPORT Last administered on 02/24/17 00:52; Admin Dose 5 MG; Start 01/28/17 at 16:30 Nystatin (Nystatin Powder) 1 applic BID TOP Last administered on 03/04/17 08: 44; Admin Dose 1 APPLIC; Start 02/04/17 at 12:00 Eye Lubricant (Artificial Tears Oph) 2 drop Q6H PRN BOTH EYES DRY EYES Last administered on 03/03/17 20:20; Admin Dose 2 DROP; Start 02/13/17 at 15:30 Nystatin (Nystatin Susp) 5 ml QID GTB Last administered on 03/04/17 12:28; Admin Dose 5 ML; Start 02/18/17 at 08:00 Lansoprazole (Prevacid) 30 mg BID@06,18 GTB Last administered on 03/04/17 05: 33; Admin Dose 30 MG; Start 02/18/17 at 18:00 Amoxicillin (Amoxicillin Susp) 1,000 mg BID GTB Last administered on 03/04/17 08:40; Admin Dose 1,000 MG; Start 02/20/17 at 21:00; Stop 03/06/17 at 20:59 Clarithromycin (Biaxin) 500 mg BID GTB Last administered on 03/04/17 08:42; Admin Dose 500 MG; Start 02/20/17 at 21:00 Metoprolol Tartrate (Lopressor) 12.5 mg BID GTB Last administered on 03/04/17 08:41; Admin Dose 12.5 MG; Start 02/22/17 at 22:30 Apixaban (Eliquis) 5 mg BID GTB Last administered on 03/04/17 08:42; Admin Dose 5 MG; Start 02/22/17 at 22:00 ALEXIS NAJERA Mar 04, 2017 15:48
--- NOTE | 2017-03-04 17:06 | CONS ---
GIRISH SCHMITZ NP 03/04/17 1704: Date/Time of Note Date/Time of Note DATE: 03/04/17 TIME: 16:54 Assessment/Plan Assessment/Plan Chief Complaint/Hosp Course Assessment/impression: - s/p UTI due to proteus - diffuse moderate degree of gastritis s/p EGD 02/15/2017 - gastritis due to H. pylori based on pathology 02/15/2017, on clarithromycin based regimen (02/20/2017-), [id number] - bleeding from GT site, and blood clots in tube feed - resolved - recurrent CVA - possible aspiration, improved - encephalopathy due to CVA - improving. CSF from 01/19/2017: WBC=3, RBC=0, glu 53, pro=61, CSF ([place] serology negative, HSV negative, cocci CF negative, encephalitis meningitis panel could not be done due to a lack of sample), serum ([place] PCR negative, crypto antigen negative, cocci CF negative, histo CF negative). my order of crypto in CSF was cancelled and no reason given - bacteremia due to CoNS, probable contaminant. 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 pylori (02/20/2017-), clarithro, amoxicillin and lansoprazole. Planned through 03/06/2017 Management d/w patient, her spouse, LUNA Mills, and Dr. Carbajal Problems: Consultation Date/Type/Reason Admit Date/Time Jan 16, 2017 at 15:19 Initial Consult Date 01/17/17 Type of Consultation: INFECTIOUS DISEASE Referring Provider: LAWRENCE PICKERING 24 HR Interval Summary Free Text/Dictation Still awaiting SNF placement. Pt more verbal, asking to eat, ambulated to bathroom with assist x3, and slept well last night per d/w pt's spouse. Spouse reports some blood noted in stool earlier. Denies pain, SOB, n/v/d. Per PT, pt gets OOB with extensive 2P assist, ambulates with FWW with unsteady gait. Exam/Review of Systems Vital Signs Vitals Vital Signs Date Time Temp Pulse Resp B/P Pulse Ox O2 Delivery O2 Flow Rate FiO2 03/04/17 16:00 113 03/04/17 15:55 97.9 16 97/54 97 03/04/17 13:37 21 Intake and Output 03/03/17 03/03/17 03/04/17 15:00 23:00 07:00 Intake Total 950 ml 1000 ml Output Total 550 ml 900 ml Balance 400 ml 100 ml Exam Constitutional: alert, oriented, well-developed, other (smiling at times) Head: atraumatic, normocephalic Respiratory: clear to auscultation No wheezing Cardiovascular: irregular rhythm Gastrointestinal: other (G-tube intact), soft, No tender Genitourinary - Female: bladder flat Musculoskeletal: nl extremities to inspection, normal pulses Extremities: No edema, Other (L heel eschar/dressing is c/di) Neurological: Other (speech clear but soft, primarily Croatian speaking; ESTEVEZ) Skin: nl turgor Results Result Diagram: 03/04/17 0647 03/04/17 0647 Results 24 hrs Laboratory Tests Test 03/04/17 06:47 White Blood Count 7.7 # Red Blood Count 3.90 L Hemoglobin 10.3 L Hematocrit 32.9 L Mean Corpuscular Volume 84.4 Mean Corpuscular Hemoglobin 26.4 L Mean Corpuscular Hemoglobin Concent 31.3 L Red Cell Distribution Width 17.7 H Platelet Count 393 Mean Platelet Volume 12.6 H Neutrophils % 71.5 Lymphocytes % 16.8 Monocytes % 6.5 Eosinophils % 3.4 Basophils % 1.4 Nucleated Red Blood Cells % 0.0 Neutrophils # (Manual) 5.5 Lymphocytes # 1.3 Monocytes # 0.5 Eosinophils # 0.3 Basophils # 0.1 Nucleated Red Blood Cells # 0.0 Sodium Level 148 H Potassium Level 3.9 Chloride Level 104 Carbon Dioxide Level 26 Anion Gap 22 H Blood Urea Nitrogen 23 H Creatinine 0.86 Glucose Level 123 Calcium Level 10.0 Medications Medications Current Medications Miscellaneous Information 1 ea NOTE XX ; Start 01/17/17 at 10:00 Glucose (Glutose) 15 gm Q15M PRN PO DECREASED GLUCOSE; Start 01/17/17 at 10:00 Glucose (Glutose) 22.5 gm Q15M PRN PO DECREASED GLUCOSE; Start 01/17/17 at 10: 00 Dextrose (D50w Syringe) 25 ml Q15M PRN IV DECREASED GLUCOSE; Start 01/17/17 at 10:00 Dextrose (D50w Syringe) 50 ml Q15M PRN IV DECREASED GLUCOSE; Start 01/17/17 at 10:00 Glucagon (Glucagen) 1 mg Q15M PRN IM DECREASED GLUCOSE; Start 01/17/17 at 10:00 Glucose (Glutose) 15 gm Q15M PRN BUCCAL DECREASED GLUCOSE; Start 01/17/17 at 10 :00 Collagenase (Santyl) 1 applic DAILY TOP Last administered on 03/04/17 08:44; Admin Dose 1 APPLIC; Start 01/17/17 at 21:00 IV Flush (NS 10 ml) 10 ml PRN PRN IV IV PROTOCOL Last administered on 21:45; Admin Dose 10 ML; Start 01/22/17 at 12:00 Miscellaneous Information (Pending Santyl Order For Wound Care) This patient dunaway... PRN PRN XX WOUND CARE; Start 01/24/17 at 07:30 Bisacodyl (Dulcolax Supp) 10 mg DAILY PRN [place] CONSTIPATION Last administered on 02/24/17 15:02; Admin Dose 10 MG; Start 01/25/17 at 16:30 Acetaminophen (Tylenol Liquid) 650 mg Q4H PRN NGT PAIN AND OR ELEVATED TEMP Last administered on 02/25/17 11:00; Admin Dose 650 MG; Start 01/26/17 at 09:00 Metoprolol Tartrate (Lopressor) 2.5 mg Q4H PRN IV HR > 110 Last administered on 02/23/17 03:58; Admin Dose 2.5 MG; Start 01/26/17 at 15:00 Midodrine (Proamatine) 5 mg Q8 PRN GTB BLOOD PRESSURE SUPPORT Last administered on 02/24/17 00:52; Admin Dose 5 MG; Start 01/28/17 at 16:30 Nystatin (Nystatin Powder) 1 applic BID TOP Last administered on 03/04/17 08: 44; Admin Dose 1 APPLIC; Start 02/04/17 at 12:00 Eye Lubricant (Artificial Tears Oph) 2 drop Q6H PRN BOTH EYES DRY EYES Last administered on 03/03/17 20:20; Admin Dose 2 DROP; Start 02/13/17 at 15:30 Nystatin (Nystatin Susp) 5 ml QID GTB Last administered on 03/04/17 12:28; Admin Dose 5 ML; Start 02/18/17 at 08:00 Lansoprazole (Prevacid) 30 mg BID@18 GTB Last administered on 03/04/17 05: 33; Admin Dose 30 MG; Start 02/18/17 at 18:00 Amoxicillin (Amoxicillin Susp) 1,000 mg BID GTB Last administered on 03/04/17 08:40; Admin Dose 1,000 MG; Start 02/20/17 at 21:00; Stop 03/06/17 at 20:59 Clarithromycin (Biaxin) 500 mg BID GTB Last administered on 03/04/17 08:42; Admin Dose 500 MG; Start 02/20/17 at 21:00 Metoprolol Tartrate (Lopressor) 12.5 mg BID GTB Last administered on 03/04/17 08:41; Admin Dose 12.5 MG; Start 02/22/17 at 22:30 Apixaban (Eliquis) 5 mg BID GTB Last administered on 03/04/17 08:42; Admin Dose 5 MG; Start 02/22/17 at 22:00 TYE CARBAJAL M.D. 03/05/17 1120: Assessment/Plan Assessment/Plan Additional Assessment/Plan I discussed the management with LUNA Schmitz and agree with her note Exam/Review of Systems Results Result Diagram: 03/04/17 0647 03/04/17 0647 GIRISH SCHMITZ NP Mar 04, 2017 17:04 TYE CARBAJAL M.D. Mar 05, 2017 11:20
--- NOTE | 2017-03-04 17:51 | CONS ---
Date/Time of Note Date/Time of Note DATE: 03/04/17 TIME: 17:48 Assessment/Plan Assessment/Plan Chief Complaint/Hosp Course IMP: 1. AF-mainly rate controlled/Trop negative x 3. Had pause x 3.7 seconds 01/30 on standing IVP BB. No recurrence since decrease in IVP BB. Tolerating low dose PO BB well 2.Hypotension-on midodrine 3.encephalopathy/ams 4.coagulopathy-now on eliquis 5. Acute Renal failure-Now resolved 6.Leukocytosis 7. Cardiomyopathy-EF 45% 8. Cephalic vein thrombosis 9. Dysphagia s/p PEG 10. H Pylori Recc: -Tele -serial ecg's -Cont. Eliquis -Continue low dose BB as tolerated only -Continue abx's -Follow MS closely which has had some mild improvement -Continue midodrine for low BP -Continue treatment for H Pylori -Give additional IVP dose of digoxin -No definite indication for PPM at this time Problems: Consultation Date/Type/Reason Admit Date/Time Jan 16, 2017 at 15:19 Initial Consult Date 01/17/17 Type of Consultation: CARDIOLOGY Reason for Consultation af Referring Provider: LAWRENCE PICKERING Exam/Review of Systems Vital Signs Vitals Vital Signs Date Time Temp Pulse Resp B/P Pulse Ox O2 Delivery O2 Flow Rate FiO2 03/04/17 16:00 113 03/04/17 15:55 97.9 16 97/54 97 03/04/17 13:37 21 Intake and Output 03/03/17 03/03/17 03/04/17 15:00 23:00 07:00 Intake Total 950 ml 1000 ml Output Total 550 ml 900 ml Balance 400 ml 100 ml Exam Review of Systems: CONSTITUTIONAL: No fevers, chills. PULMONARY: No sob CARDIOVASCULAR: No chest pain/palpitations GASTROINTESTINAL: No nausea/vomiting. GENITOURINARY: No hematuria/dysuria. MUSCULOSKELETAL: No myagias/arthalgias. PSYCHIATRIC: The patient denies depression. NEUROLOGIC: No weakness Constitutional: alert Psych: no complaints Head: normocephalic ENMT: mucosa pink and moist Neck: supple Respiratory: diminished breath sounds Cardiovascular: regular rate and rhythm Gastrointestinal: soft Musculoskeletal: muscle tone Extremities: edema Neurological: other (No focal deficits) Results Result Diagram: 03/04/17 0647 03/04/17 0647 Results 24 hrs Laboratory Tests Test 03/04/17 06:47 White Blood Count 7.7 # Red Blood Count 3.90 L Hemoglobin 10.3 L Hematocrit 32.9 L Mean Corpuscular Volume 84.4 Mean Corpuscular Hemoglobin 26.4 L Mean Corpuscular Hemoglobin Concent 31.3 L Red Cell Distribution Width 17.7 H Platelet Count 393 Mean Platelet Volume 12.6 H Neutrophils % 71.5 Lymphocytes % 16.8 Monocytes % 6.5 Eosinophils % 3.4 Basophils % 1.4 Nucleated Red Blood Cells % 0.0 Neutrophils # (Manual) 5.5 Lymphocytes # 1.3 Monocytes # 0.5 Eosinophils # 0.3 Basophils # 0.1 Nucleated Red Blood Cells # 0.0 Sodium Level 148 H Potassium Level 3.9 Chloride Level 104 Carbon Dioxide Level 26 Anion Gap 22 H Blood Urea Nitrogen 23 H Creatinine 0.86 Glucose Level 123 Calcium Level 10.0 Medications Medications Current Medications Miscellaneous Information 1 ea NOTE XX ; Start 01/17/17 at 10:00 Glucose (Glutose) 15 gm Q15M PRN PO DECREASED GLUCOSE; Start 01/17/17 at 10:00 Glucose (Glutose) 22.5 gm Q15M PRN PO DECREASED GLUCOSE; Start 01/17/17 at 10: 00 Dextrose (D50w Syringe) 25 ml Q15M PRN IV DECREASED GLUCOSE; Start 01/17/17 at 10:00 Dextrose (D50w Syringe) 50 ml Q15M PRN IV DECREASED GLUCOSE; Start 01/17/17 at 10:00 Glucagon (Glucagen) 1 mg Q15M PRN IM DECREASED GLUCOSE; Start 01/17/17 at 10:00 Glucose (Glutose) 15 gm Q15M PRN BUCCAL DECREASED GLUCOSE; Start 01/17/17 at 10 :00 Collagenase (Santyl) 1 applic DAILY TOP Last administered on 03/04/17 08:44; Admin Dose 1 APPLIC; Start 01/17/17 at 21:00 IV Flush (NS 10 ml) 10 ml PRN PRN IV IV PROTOCOL Last administered on 21:45; Admin Dose 10 ML; Start 01/22/17 at 12:00 Miscellaneous Information (Pending Santyl Order For Wound Care) This patient dunaway... PRN PRN XX WOUND CARE; Start 01/24/17 at 07:30 Bisacodyl (Dulcolax Supp) 10 mg DAILY PRN [place] CONSTIPATION Last administered on 02/24/17 15:02; Admin Dose 10 MG; Start 01/25/17 at 16:30 Acetaminophen (Tylenol Liquid) 650 mg Q4H PRN NGT PAIN AND OR ELEVATED TEMP Last administered on 02/25/17 11:00; Admin Dose 650 MG; Start 01/26/17 at 09:00 Metoprolol Tartrate (Lopressor) 2.5 mg Q4H PRN IV HR > 110 Last administered on 02/23/17 03:58; Admin Dose 2.5 MG; Start 01/26/17 at 15:00 Midodrine (Proamatine) 5 mg Q8 PRN GTB BLOOD PRESSURE SUPPORT Last administered on 02/24/17 00:52; Admin Dose 5 MG; Start 01/28/17 at 16:30 Nystatin (Nystatin Powder) 1 applic BID TOP Last administered on 03/04/17 08: 44; Admin Dose 1 APPLIC; Start 02/04/17 at 12:00 Eye Lubricant (Artificial Tears Oph) 2 drop Q6H PRN BOTH EYES DRY EYES Last administered on 03/03/17 20:20; Admin Dose 2 DROP; Start 02/13/17 at 15:30 Nystatin (Nystatin Susp) 5 ml QID GTB Last administered on 03/04/17 17:07; Admin Dose 5 ML; Start 02/18/17 at 08:00 Lansoprazole (Prevacid) 30 mg BID@,18 GTB Last administered on 03/04/17 17: 07; Admin Dose 30 MG; Start 02/18/17 at 18:00 Amoxicillin (Amoxicillin Susp) 1,000 mg BID GTB Last administered on 03/04/17 08:40; Admin Dose 1,000 MG; Start 02/20/17 at 21:00; Stop 03/06/17 at 20:59 Clarithromycin (Biaxin) 500 mg BID GTB Last administered on 03/04/17 08:42; Admin Dose 500 MG; Start 02/20/17 at 21:00 Metoprolol Tartrate (Lopressor) 12.5 mg BID GTB Last administered on 03/04/17 08:41; Admin Dose 12.5 MG; Start 02/22/17 at 22:30 Apixaban (Eliquis) 5 mg BID GTB Last administered on 03/04/17t 08:42; Admin Dose 5 MG; Start 02/22/17 at 22:00 MINOO REY Mar 04, 2017 17:51
[2017-03-04] MEDS ORDERED: DIGOXIN 500 MCG INJ IV ONE ×3 (18:00→18:30)
[2017-03-04] MEDS: ARTIFICIAL TEARS 15 ML OPH BOTH EYES PRN (21:23)
[2017-03-05] VITALS (11 sets, daily range): BP systolic 96–103; BP diastolic 51–63; PULSE 78–104; RESP 16–20
[2017-03-05] MEDS: LEVALBUTEROL (NEB) 0.63 MG/3 ML AMP HHN SCH ×4 (01:27→19:28)
[2017-03-05] MEDS: LANSOPRAZOLE 30 MG CAP GTB SCH ×2 (05:54→17:08)
[2017-03-05 07:33] LABS: BASOPHIL # 0.1 10^3/ul (0.0-0.1); BASOPHILS % 1.3 % (0.0-2.0); EOSINOPHILS # 0.3 10^3/ul (0.0-0.5); EOSINOPHILS % 4.2 % (0.0-7.0); HEMATOCRIT 33.3 % (37.0-47.0); HEMOGLOBIN 10.4 g/dl (12.0-16.0); LYMPHOCYTES # 1.5 10^3/ul (0.8-2.9); LYMPHOCYTES % 19.5 % (15.0-51.0); MEAN CORPUSCULAR HEMOGLOBIN 26.5 pg (29.0-33.0); MEAN CORPUSCULAR HGB CONC 31.2 g/dl (32.0-37.0); MEAN CORPUSCULAR VOLUME 84.7 fl (82.0-101.0); MEAN PLATELET VOLUME 12.7 fl (7.4-10.4); MONOCYTE # 0.6 10^3/ul (0.3-0.9); MONOCYTES % 7.1 % (0.0-11.0); NEUTROPHILS % 67.5 % (39.0-77.0); PLATELET COUNT 390 10^3/UL (140-415); RED BLOOD COUNT 3.93 10^6/ul (4.20-5.40); RED CELL DISTRIBUTION WIDTH 17.6 % (11.5-14.5); WHITE BLOOD COUNT 7.9 10^3/ul (4.8-10.8)
[2017-03-05 08:03] LABS: CALCIUM 9.8 mg/dl (8.4-10.2); CREATININE 0.82 mg/dl (0.44-1.00); POTASSIUM 4.1 mmol/L (3.5-5.1)
[2017-03-05] MEDS: AMOXICILLIN (50 MG/ML PO SYG) GTB SCH ×2 (08:24→20:52)
[2017-03-05] MEDS: METOPROLOL 25 MG TAB GTB SCH ×2 (08:24→21:57)
[2017-03-05] MEDS: CLARITHROMYCIN 500 MG TAB GTB SCH ×2 (08:24→20:53)
[2017-03-05] MEDS: NYSTATIN SUSP 5 ML CUP GTB SCH ×4 (08:24→20:53)
[2017-03-05] MEDS: APIXABAN 5 MG TABLET GTB SCH ×2 (08:24→20:53)
[2017-03-05] MEDS: COLLAGENASE 30 GM TUBE TOP SCH (08:25)
[2017-03-05] MEDS: NYSTATIN 30 GM POWDER BTL TOP SCH ×2 (08:25→20:54)
--- NOTE | 2017-03-05 11:49 | CONS ---
Date/Time of Note Date/Time of Note DATE: 03/05/17 TIME: 11:47 Assessment/Plan Assessment/Plan Chief Complaint/Hosp Course Assessment/impression: - s/p UTI due to proteus - diffuse moderate degree of gastritis s/p EGD 02/15/2017 - gastritis due to H. pylori based on pathology 02/15/2017, on clarithromycin based regimen (02/20/2017-), [id number] - bleeding from GT site, and blood clots in tube feed - resolved - recurrent CVA - possible aspiration, improved - encephalopathy due to CVA. CSF from 01/19/2017: WBC=3, RBC=0, glu 53, pro=61, CSF ([place] serology negative, HSV negative, cocci CF negative, encephalitis meningitis panel could not be done due to a lack of sample), serum ([place] PCR negative, crypto antigen negative, cocci CF negative, histo CF negative). my order of crypto in CSF was cancelled and no reason given - bacteremia due to CoNS, probable contaminant. 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 pylori (02/20/2017-), clarithro, amoxicillin and lansoprazole tomorrow, 03/06/2017 management d/w Pt Problems: Consultation Date/Type/Reason Admit Date/Time Jan 16, 2017 at 15:19 Initial Consult Date 01/17/17 Type of Consultation: ID Referring Provider: LAWRENCE PICKERING 24 HR Interval Summary Subjective hx not possible: pt non-verbal (nearly non-verbal) Constitutional: other ("good") Detailed Summary Respiratory: No cough, No shortness of breath Gastrointestinal: No nausea, No pain, No vomiting Exam/Review of Systems Vital Signs Vitals Vital Signs Date Time Temp Pulse Resp B/P Pulse Ox O2 Delivery O2 Flow Rate FiO2 03/05/17 11:32 97.9 75 18 98/63 95 03/05/17 08:15 21 Intake and Output 03/04/17 03/04/17 03/05/17 15:00 23:00 07:00 Intake Total 950 ml 950 ml Output Total 800 ml 1100 ml Balance 150 ml -150 ml Exam Constitutional: frail, non-verbal (nearly non-verbal) Psych: no complaints Head: atraumatic, normocephalic Eyes: nl conjunctiva, other (L ptosis) ENMT: nl external ears & nose, nl nasal mucosa & septum Respiratory: diminished breath sounds Cardiovascular: nl pulses, regular rate and rhythm Gastrointestinal: non-tender, other (PEG), soft Musculoskeletal: nl extremities to inspection Extremities: edema (LEs) Neurological: lethargic Skin: nl turgor Results Result Diagram: 03/05/1758 03/05/17 0658 Results 24 hrs Laboratory Tests Test 03/05/17 06:58 White Blood Count 7.9 Red Blood Count 3.93 L Hemoglobin 10.4 L Hematocrit 33.3 L Mean Corpuscular Volume 84.7 Mean Corpuscular Hemoglobin 26.5 L Mean Corpuscular Hemoglobin Concent 31.2 L Red Cell Distribution Width 17.6 H Platelet Count 390 Mean Platelet Volume 12.7 H Neutrophils % 67.5 Lymphocytes % 19.5 Monocytes % 7.1 Eosinophils % 4.2 Basophils % 1.3 Nucleated Red Blood Cells % 0.0 Neutrophils # (Manual) 5.4 Lymphocytes # 1.5 Monocytes # 0.6 Eosinophils # 0.3 Basophils # 0.1 Nucleated Red Blood Cells # 0.0 Sodium Level 143 Potassium Level 4.1 Chloride Level 106 Carbon Dioxide Level 26 Anion Gap 15 # Blood Urea Nitrogen 23 H Creatinine 0.82 Glucose Level 115 Calcium Level 9.8 Medications Medications Current Medications Miscellaneous Information 1 ea NOTE XX ; Start 01/17/17 at 10:00 Glucose (Glutose) 15 gm Q15M PRN PO DECREASED GLUCOSE; Start 01/17/17 at 10:00 Glucose (Glutose) 22.5 gm Q15M PRN PO DECREASED GLUCOSE; Start 01/17/17 at 10: 00 Dextrose (D50w Syringe) 25 ml Q15M PRN IV DECREASED GLUCOSE; Start 01/17/17 at 10:00 Dextrose (D50w Syringe) 50 ml Q15M PRN IV DECREASED GLUCOSE; Start 01/17/17 at 10:00 Glucagon (Glucagen) 1 mg Q15M PRN IM DECREASED GLUCOSE; Start 01/17/17 at 10:00 Glucose (Glutose) 15 gm Q15M PRN BUCCAL DECREASED GLUCOSE; Start 01/17/17 at 10 :00 Collagenase (Santyl) 1 applic DAILY TOP Last administered on 03/05/17 08:25; Admin Dose 1 APPLIC; Start 01/17/17 at 21:00 IV Flush (NS 10 ml) 10 ml PRN PRN IV IV PROTOCOL Last administered on 21:45; Admin Dose 10 ML; Start 01/22/17 at 12:00 Miscellaneous Information (Pending Santyl Order For Wound Care) This patient dunaway... PRN PRN XX WOUND CARE; Start 01/24/17 at 07:30 Bisacodyl (Dulcolax Supp) 10 mg DAILY PRN [place] CONSTIPATION Last administered on 02/24/17 15:02; Admin Dose 10 MG; Start 01/25/17 at 16:30 Acetaminophen (Tylenol Liquid) 650 mg Q4H PRN NGT PAIN AND OR ELEVATED TEMP Last administered on 02/25/17 11:00; Admin Dose 650 MG; Start 01/26/17 at 09:00 Metoprolol Tartrate (Lopressor) 2.5 mg Q4H PRN IV HR > 110 Last administered on 02/23/17 03:58; Admin Dose 2.5 MG; Start 01/26/17 at 15:00 Midodrine (Proamatine) 5 mg Q8 PRN GTB BLOOD PRESSURE SUPPORT Last administered on 02/24/17 00:52; Admin Dose 5 MG; Start 01/28/17 at 16:30 Nystatin (Nystatin Powder) 1 applic BID TOP Last administered on 03/05/17 08:25 ; Admin Dose 1 APPLIC; Start 02/04/17 at 12:00 Eye Lubricant (Artificial Tears Oph) 2 drop Q6H PRN BOTH EYES DRY EYES Last administered on 03/04/17 21:23; Admin Dose 2 DROP; Start 02/13/17 at 15:30 Nystatin (Nystatin Susp) 5 ml QID GTB Last administered on 03/05/17 08:24; Admin Dose 5 ML; Start 02/18/17 at 08:00 Lansoprazole (Prevacid) 30 mg BID@ GTB Last administered on 03/05/17 05:54 ; Admin Dose 30 MG; Start 02/18/17 at 18:00 Amoxicillin (Amoxicillin Susp) 1,000 mg BID GTB Last administered on 03/05/17 08:24; Admin Dose 1,000 MG; Start 02/20/17 at 21:00; Stop 03/06/17 at 20:59 Clarithromycin (Biaxin) 500 mg BID GTB Last administered on 03/05/17 08:24; Admin Dose 500 MG; Start 02/20/17 at 21:00 Metoprolol Tartrate (Lopressor) 12.5 mg BID GTB Last administered on 03/05/17 08:24; Admin Dose 12.5 MG; Start 02/22/17 at 22:30 Apixaban (Eliquis) 5 mg BID GTB Last administered on 03/05/17 08:24; Admin Dose 5 MG; Start 02/22/17 at 22:00 TYE STYLES M.D. Mar 05, 2017 11:49
--- NOTE | 2017-03-05 14:54 | CONS ---
Date/Time of Note Date/Time of Note DATE: 03/05/17 TIME: 14:49 Assessment/Plan Assessment/Plan Chief Complaint/Hosp Course IMP: 1. AF-mainly rate controlled/Trop negative x 3. Had pause x 3.7 seconds 01/30 on standing IVP BB. No recurrence since decrease in IVP BB. Tolerating low dose PO BB well 2.Hypotension-on midodrine 3.encephalopathy/ams-slowly improving 4.coagulopathy-now on eliquis 5. Acute Renal failure-Now resolved 6.Leukocytosis 7. Cardiomyopathy-EF 45% 8. Cephalic vein thrombosis 9. Dysphagia s/p PEG 10. H Pylori Recc: -Tele -serial ecg's -Cont. Eliquis -Continue low dose BB as tolerated only -Continue abx's -Follow MS closely which has had some significant improvement -Continue midodrine for low BP -Continue treatment for H Pylori -Give additional IVP dose of digoxin -No definite indication for PPM at this time Problems: Consultation Date/Type/Reason Admit Date/Time Jan 16, 2017 at 15:19 Initial Consult Date 01/17/17 Type of Consultation: cardiology Reason for Consultation AF Referring Provider: LAWRENCE PICKERING Exam/Review of Systems Vital Signs Vitals Vital Signs Date Time Temp Pulse Resp B/P Pulse Ox O2 Delivery O2 Flow Rate FiO2 03/05/17 13:15 97 21 03/05/17 13:14 79 20 03/05/17 11:32 97.9 98/63 Intake and Output 03/04/17 03/04/17 03/05/17 15:00 23:00 07:00 Intake Total 950 ml 950 ml Output Total 800 ml 1100 ml Balance 150 ml -150 ml Exam Review of Systems: CONSTITUTIONAL: No fevers, chills. PULMONARY: No sob CARDIOVASCULAR: No chest pain/palpitations GASTROINTESTINAL: No nausea/vomiting. GENITOURINARY: No hematuria/dysuria. MUSCULOSKELETAL: No myagias/arthalgias. PSYCHIATRIC: The patient denies depression. NEUROLOGIC: No weakness Constitutional: alert, other (non-communicative) Psych: no complaints Head: normocephalic ENMT: mucosa pink and moist Neck: jvd (9 cm water), supple Respiratory: diminished breath sounds (at bases/B) Cardiovascular: regular rate and rhythm Gastrointestinal: non-tender, soft Musculoskeletal: muscle tone (normal) Extremities: edema (trace/B) Neurological: confused Results Result Diagram: 03/05/17 0658 03/05/17 0658 Results 24 hrs Laboratory Tests Test 03/05/17 06:58 White Blood Count 7.9 Red Blood Count 3.93 L Hemoglobin 10.4 L Hematocrit 33.3 L Mean Corpuscular Volume 84.7 Mean Corpuscular Hemoglobin 26.5 L Mean Corpuscular Hemoglobin Concent 31.2 L Red Cell Distribution Width 17.6 H Platelet Count 390 Mean Platelet Volume 12.7 H Neutrophils % 67.5 Lymphocytes % 19.5 Monocytes % 7.1 Eosinophils % 4.2 Basophils % 1.3 Nucleated Red Blood Cells % 0.0 Neutrophils # (Manual) 5.4 Lymphocytes # 1.5 Monocytes # 0.6 Eosinophils # 0.3 Basophils # 0.1 Nucleated Red Blood Cells # 0.0 Sodium Level 143 Potassium Level 4.1 Chloride Level 106 Carbon Dioxide Level 26 Anion Gap 15 # Blood Urea Nitrogen 23 H Creatinine 0.82 Glucose Level 115 Calcium Level 9.8 Medications Medications Current Medications Miscellaneous Information 1 ea NOTE XX ; Start 01/17/17 at 10:00 Glucose (Glutose) 15 gm Q15M PRN PO DECREASED GLUCOSE; Start 01/17/17 at 10:00 Glucose (Glutose) 22.5 gm Q15M PRN PO DECREASED GLUCOSE; Start 01/17/17 at 10: 00 Dextrose (D50w Syringe) 25 ml Q15M PRN IV DECREASED GLUCOSE; Start 01/17/17 at 10:00 Dextrose (D50w Syringe) 50 ml Q15M PRN IV DECREASED GLUCOSE; Start 01/17/17 at 10:00 Glucagon (Glucagen) 1 mg Q15M PRN IM DECREASED GLUCOSE; Start 01/17/17 at 10:00 Glucose (Glutose) 15 gm Q15M PRN BUCCAL DECREASED GLUCOSE; Start 01/17/17 at 10 :00 Collagenase (Santyl) 1 applic DAILY TOP Last administered on 03/05/17 08:25; Admin Dose 1 APPLIC; Start 01/17/17 at 21:00 IV Flush (NS 10 ml) 10 ml PRN PRN IV IV PROTOCOL Last administered on 21:45; Admin Dose 10 ML; Start 01/22/17 at 12:00 Miscellaneous Information (Pending Santyl Order For Wound Care) This patient dunaway... PRN PRN XX WOUND CARE; Start 01/24/17 at 07:30 Bisacodyl (Dulcolax Supp) 10 mg DAILY PRN [place] CONSTIPATION Last administered on 02/24/17 15:02; Admin Dose 10 MG; Start 01/25/17 at 16:30 Acetaminophen (Tylenol Liquid) 650 mg Q4H PRN NGT PAIN AND OR ELEVATED TEMP Last administered on 02/25/17 11:00; Admin Dose 650 MG; Start 01/26/17 at 09:00 Metoprolol Tartrate (Lopressor) 2.5 mg Q4H PRN IV HR > 110 Last administered on 02/23/17 03:58; Admin Dose 2.5 MG; Start 01/26/17 at 15:00 Midodrine (Proamatine) 5 mg Q8 PRN GTB BLOOD PRESSURE SUPPORT Last administered on 02/24/17 00:52; Admin Dose 5 MG; Start 01/28/17 at 16:30 Nystatin (Nystatin Powder) 1 applic BID TOP Last administered on 03/05/17 08:25 ; Admin Dose 1 APPLIC; Start 02/04/17 at 12:00 Eye Lubricant (Artificial Tears Oph) 2 drop Q6H PRN BOTH EYES DRY EYES Last administered on 03/04/17 21:23; Admin Dose 2 DROP; Start 02/13/17 at 15:30 Nystatin (Nystatin Susp) 5 ml QID GTB Last administered on 03/05/17 12:22; Admin Dose 5 ML; Start 02/18/17 at 08:00 Lansoprazole (Prevacid) 30 mg BID@06,18 GTB Last administered on 03/05/17 05:54 ; Admin Dose 30 MG; Start 02/18/17 at 18:00 Amoxicillin (Amoxicillin Susp) 1,000 mg BID GTB Last administered on 03/05/17 08:24; Admin Dose 1,000 MG; Start 02/20/17 at 21:00; Stop 03/06/17 at 20:59 Clarithromycin (Biaxin) 500 mg BID GTB Last administered on 03/05/17 08:24; Admin Dose 500 MG; Start 02/20/17 at 21:00 Metoprolol Tartrate (Lopressor) 12.5 mg BID GTB Last administered on 03/05/17 08:24; Admin Dose 12.5 MG; Start 02/22/17 at 22:30 Apixaban (Eliquis) 5 mg BID GTB Last administered on 03/05/17 08:24; Admin Dose 5 MG; Start 02/22/17 at 22:00 MINOO REY Mar 05, 2017 14:54
--- NOTE | 2017-03-05 16:40 | PN ---
Date/Time of Note Date/Time of Note DATE: 03/05/17 TIME: 16:36 Assessment/Plan VTE Prophylaxis VTE Prophylaxis Intervention: other Lines/Catheters IV [facility] Type (from [facility] PICC Line Central line still needed: Yes Urinary Cath still in place: Yes Reason Cath still needed: urinary retention Assessment/Plan Assessment/Plan - Urinary tract infection, continue antibiotics per ID. Dr. Abarca is following in an infection disease consultation. - Gastritis due to H. pylori, continue triple therapy per H. pylori eradication - Possible bleeding from G-tube and hematuria, resolved status post EGD was notion of gastritis, continue Protonix. - Bilateral thalamic infarctions. - Dysphagia, status post G-tube placement by Dr. Garcia. - Atrial fibrillation with rapid ventricular response. Dr. Armenta is following and cardiology consultation. Continue Eliquis. - Thrombosis of the bilateral cephalic veins. - Acute kidney injury, resolved. - History of CVA - History of hyperlipidemia Further recommendations based on clinical course. Plan of care discussed with Dr. Valdovinos. Subjective 24 Hr Interval Summary Free Text/Dictation sleeping, seems comfortable, no new complaints reported, dw staff Constitutional: requiring O2 ENT: no complaints Respiratory: no complaints Genitourinary: no complaints Exam/Review of Systems Vital Signs Vitals Vital Signs Date Time Temp Pulse Resp B/P Pulse Ox O2 Delivery O2 Flow Rate FiO2 03/05/17 15:31 98.4 88 18 103/56 96 03/05/17 13:15 21 Intake and Output 03/04/17 03/04/17 03/05/17 14:59 22:59 06:59 Intake Total 950 ml 950 ml Output Total 800 ml 1100 ml Balance 150 ml -150 ml Exam Constitutional: alert, well developed Psych: nl mood/affect Respiratory: clear to auscultation, normal air movement Cardiovascular: nl pulses, regular rate and rhythm Gastrointestinal: non-tender, soft Musculoskeletal: nl extremities to inspection Extremities: normal pulses Neurological: nl speech Results Result Diagram: 03/05/17 0658 03/05/17 0658 Results 24 hrs Laboratory Tests Test 03/05/17 06:58 White Blood Count 7.9 Red Blood Count 3.93 L Hemoglobin 10.4 L Hematocrit 33.3 L Mean Corpuscular Volume 84.7 Mean Corpuscular Hemoglobin 26.5 L Mean Corpuscular Hemoglobin Concent 31.2 L Red Cell Distribution Width 17.6 H Platelet Count 390 Mean Platelet Volume 12.7 H Neutrophils % 67.5 Lymphocytes % 19.5 Monocytes % 7.1 Eosinophils % 4.2 Basophils % 1.3 Nucleated Red Blood Cells % 0.0 Neutrophils # (Manual) 5.4 Lymphocytes # 1.5 Monocytes # 0.6 Eosinophils # 0.3 Basophils # 0.1 Nucleated Red Blood Cells # 0.0 Sodium Level 143 Potassium Level 4.1 Chloride Level 106 Carbon Dioxide Level 26 Anion Gap 15 # Blood Urea Nitrogen 23 H Creatinine 0.82 Glucose Level 115 Calcium Level 9.8 Medications Medications Current Medications Miscellaneous Information 1 ea NOTE XX ; Start 01/17/17 at 10:00 Glucose (Glutose) 15 gm Q15M PRN PO DECREASED GLUCOSE; Start 01/17/17 at 10:00 Glucose (Glutose) 22.5 gm Q15M PRN PO DECREASED GLUCOSE; Start 01/17/17 at 10: 00 Dextrose (D50w Syringe) 25 ml Q15M PRN IV DECREASED GLUCOSE; Start 01/17/17 at 10:00 Dextrose (D50w Syringe) 50 ml Q15M PRN IV DECREASED GLUCOSE; Start 01/17/17 at 10:00 Glucagon (Glucagen) 1 mg Q15M PRN IM DECREASED GLUCOSE; Start 01/17/17 at 10:00 Glucose (Glutose) 15 gm Q15M PRN BUCCAL DECREASED GLUCOSE; Start 01/17/17 at 10 :00 Collagenase (Santyl) 1 applic DAILY TOP Last administered on 03/05/17 08:25; Admin Dose 1 APPLIC; Start 01/17/17 at 21:00 IV Flush (NS 10 ml) 10 ml PRN PRN IV IV PROTOCOL Last administered on 21:45; Admin Dose 10 ML; Start 01/22/17 at 12:00 Miscellaneous Information (Pending Santyl Order For Wound Care) This patient dunaway... PRN PRN XX WOUND CARE; Start 01/24/17 at 07:30 Bisacodyl (Dulcolax Supp) 10 mg DAILY PRN [place] CONSTIPATION Last administered on 02/24/17 15:02; Admin Dose 10 MG; Start 01/25/17 at 16:30 Acetaminophen (Tylenol Liquid) 650 mg Q4H PRN NGT PAIN AND OR ELEVATED TEMP Last administered on 02/25/17 11:00; Admin Dose 650 MG; Start 01/26/17 at 09:00 Metoprolol Tartrate (Lopressor) 2.5 mg Q4H PRN IV HR > 110 Last administered on 02/23/17 03:58; Admin Dose 2.5 MG; Start 01/26/17 at 15:00 Midodrine (Proamatine) 5 mg Q8 PRN GTB BLOOD PRESSURE SUPPORT Last administered on 02/24/17 00:52; Admin Dose 5 MG; Start 01/28/17 at 16:30 Nystatin (Nystatin Powder) 1 applic BID TOP Last administered on 03/05/17 08:25 ; Admin Dose 1 APPLIC; Start 02/04/17 at 12:00 Eye Lubricant (Artificial Tears Oph) 2 drop Q6H PRN BOTH EYES DRY EYES Last administered on 03/04/17 21:23; Admin Dose 2 DROP; Start 02/13/17 at 15:30 Nystatin (Nystatin Susp) 5 ml QID GTB Last administered on 03/05/17 12:22; Admin Dose 5 ML; Start 02/18/17 at 08:00 Lansoprazole (Prevacid) 30 mg BID@,18 GTB Last administered on 03/05/17 05:54 ; Admin Dose 30 MG; Start 02/18/17 at 18:00 Amoxicillin (Amoxicillin Susp) 1,000 mg BID GTB Last administered on 03/05/17 08:24; Admin Dose 1,000 MG; Start 02/20/17 at 21:00; Stop 03/06/17 at 20:59 Clarithromycin (Biaxin) 500 mg BID GTB Last administered on 03/05/17 08:24; Admin Dose 500 MG; Start 02/20/17 at 21:00 Metoprolol Tartrate (Lopressor) 12.5 mg BID GTB Last administered on 03/05/17 08:24; Admin Dose 12.5 MG; Start 02/22/17 at 22:30 Apixaban (Eliquis) 5 mg BID GTB Last administered on 03/05/17 08:24; Admin Dose 5 MG; Start 02/22/17 at 22:00 ALEXIS NAJERA Mar 05, 2017 16:40
[2017-03-05 17:46] LABS: CALCIUM 9.7 mg/dl (8.4-10.2); CREATININE 0.86 mg/dl (0.44-1.00); POTASSIUM 4.1 mmol/L (3.5-5.1)
[2017-03-05] MEDS: ARTIFICIAL TEARS 15 ML OPH BOTH EYES PRN (21:03)
[2017-03-06] VITALS (12 sets, daily range): BP systolic 94–106; BP diastolic 54–61; PULSE 67–86; RESP 16–18
[2017-03-06] MEDS: COLLAGENASE 30 GM TUBE TOP SCH ×2 (00:32→08:02)
[2017-03-06] MEDS: LEVALBUTEROL (NEB) 0.63 MG/3 ML AMP HHN SCH ×4 (01:28→20:07)
[2017-03-06] MEDS: LANSOPRAZOLE 30 MG CAP GTB SCH ×2 (05:31→16:56)
[2017-03-06 06:59] LABS: BASOPHIL # 0.1 10^3/ul (0.0-0.1); BASOPHILS % 1.2 % (0.0-2.0); EOSINOPHILS # 0.3 10^3/ul (0.0-0.5); EOSINOPHILS % 4.5 % (0.0-7.0); HEMATOCRIT 32.7 % (37.0-47.0); HEMOGLOBIN 10.2 g/dl (12.0-16.0); LYMPHOCYTES # 1.5 10^3/ul (0.8-2.9); LYMPHOCYTES % 20.4 % (15.0-51.0); MEAN CORPUSCULAR HEMOGLOBIN 26.6 pg (29.0-33.0); MEAN CORPUSCULAR HGB CONC 31.2 g/dl (32.0-37.0); MEAN CORPUSCULAR VOLUME 85.4 fl (82.0-101.0); MEAN PLATELET VOLUME 12.8 fl (7.4-10.4); MONOCYTE # 0.5 10^3/ul (0.3-0.9); MONOCYTES % 6.9 % (0.0-11.0); NEUTROPHILS % 66.6 % (39.0-77.0); PLATELET COUNT 363 10^3/UL (140-415); RED BLOOD COUNT 3.83 10^6/ul (4.20-5.40); RED CELL DISTRIBUTION WIDTH 17.3 % (11.5-14.5); WHITE BLOOD COUNT 7.3 10^3/ul (4.8-10.8)
[2017-03-06] MEDS: MIDODRINE 5 MG TAB GTB PRN (08:01)
[2017-03-06] MEDS: METOPROLOL 25 MG TAB GTB SCH ×2 (08:01→22:07)
[2017-03-06] MEDS: CLARITHROMYCIN 500 MG TAB GTB SCH ×2 (08:01→22:06)
[2017-03-06] MEDS: NYSTATIN SUSP 5 ML CUP GTB SCH ×4 (08:01→22:06)
[2017-03-06] MEDS: NYSTATIN 30 GM POWDER BTL TOP SCH ×2 (08:02→22:10)
[2017-03-06] MEDS: AMOXICILLIN (50 MG/ML PO SYG) GTB SCH (08:05)
[2017-03-06] MEDS: APIXABAN 5 MG TABLET GTB SCH ×2 (08:05→22:06)
--- NOTE | 2017-03-06 10:31 | PN ---
Date/Time of Note Date/Time of Note DATE: 03/06/17 TIME: 10:30 Assessment/Plan VTE Prophylaxis VTE Prophylaxis Intervention: other Lines/Catheters [facility] Type ([facility] PICC Line Central line still needed: Yes Urinary Cath still in place: Yes Reason Cath still needed: skin wounds contaminated by urine Assessment/Plan Chief Complaint/Hosp Course - Urinary tract infection, continue antibiotics per ID. Dr. Abarca is following in an infection disease consultation. - Gastritis due to H. pylori, continue triple therapy per H. pylori eradication - Possible bleeding from G-tube and hematuria, resolved status post EGD was notion of gastritis, continue Protonix. - Bilateral thalamic infarctions. - Dysphagia, status post G-tube placement by Dr. Garcia. - Atrial fibrillation with rapid ventricular response. Dr. Armenta is following and cardiology consultation. Continue Eliquis. - Thrombosis of the bilateral cephalic veins. - Acute kidney injury, resolved. - History of CVA - History of hyperlipidemia Problems: Subjective 24 Hr Interval Summary Free Text/Dictation Patient comfortable, not responsive to voice or touch Exam/Review of Systems Vital Signs Vitals Vital Signs Date Time Temp Pulse Resp B/P Pulse Ox O2 Delivery O2 Flow Rate FiO2 03/06/17 08:33 82 03/06/17 07:42 98.2 18 95/56 97 03/06/17 01:28 21 Intake and Output 03/05/17 03/05/17 03/06/17 15:00 23:00 07:00 Intake Total 1000 ml 950 ml Output Total 750 ml 850 ml Balance 250 ml 100 ml Exam Constitutional: well developed Head: atraumatic, normocephalic Neck: supple Respiratory: diminished breath sounds Cardiovascular: regular rate and rhythm Gastrointestinal: non-tender, soft Extremities: normal pulses Results Result Diagram: 03/06/17 0601 03/05/17 1707 Results 24 hrs Laboratory Tests Test 03/05/17 17:07 03/06/17 06:01 Sodium Level 141 Potassium Level 4.1 Chloride Level 104 Carbon Dioxide Level 27 Anion Gap 14 Blood Urea Nitrogen 22 H Creatinine 0.86 Glucose Level 132 Calcium Level 9.7 White Blood Count 7.3 Red Blood Count 3.83 L Hemoglobin 10.2 L Hematocrit 32.7 L Mean Corpuscular Volume 85.4 Mean Corpuscular Hemoglobin 26.6 L Mean Corpuscular Hemoglobin Concent 31.2 L Red Cell Distribution Width 17.3 H Platelet Count 363 Mean Platelet Volume 12.8 H Neutrophils % 66.6 Lymphocytes % 20.4 Monocytes % 6.9 Eosinophils % 4.5 Basophils % 1.2 Nucleated Red Blood Cells % 0.0 Neutrophils # (Manual) 4.9 Lymphocytes # 1.5 Monocytes # 0.5 Eosinophils # 0.3 Basophils # 0.1 Nucleated Red Blood Cells # 0.0 Medications Medications Current Medications Miscellaneous Information 1 ea NOTE XX ; Start 01/17/17 at 10:00 Glucose (Glutose) 15 gm Q15M PRN PO DECREASED GLUCOSE; Start 01/17/17 at 10:00 Glucose (Glutose) 22.5 gm Q15M PRN PO DECREASED GLUCOSE; Start 01/17/17 at 10: 00 Dextrose (D50w Syringe) 25 ml Q15M PRN IV DECREASED GLUCOSE; Start 01/17/17 at 10:00 Dextrose (D50w Syringe) 50 ml Q15M PRN IV DECREASED GLUCOSE; Start 01/17/17 at 10:00 Glucagon (Glucagen) 1 mg Q15M PRN IM DECREASED GLUCOSE; Start 01/17/17 at 10:00 Glucose (Glutose) 15 gm Q15M PRN BUCCAL DECREASED GLUCOSE; Start 01/17/17 at 10 :00 Collagenase (Santyl) 1 applic DAILY TOP Last administered on 03/06/17 08:02; Admin Dose 1 APPLIC; Start 01/17/17 at 21:00 IV Flush (NS 10 ml) 10 ml PRN PRN IV IV PROTOCOL Last administered on 21:45; Admin Dose 10 ML; Start 01/22/17 at 12:00 Miscellaneous Information (Pending Santyl Order For Wound Care) This patient dunaway... PRN PRN XX WOUND CARE; Start 01/24/17 at 07:30 Bisacodyl (Dulcolax Supp) 10 mg DAILY PRN [place] CONSTIPATION Last administered on 02/24/17 15:02; Admin Dose 10 MG; Start 01/25/17 at 16:30 Acetaminophen (Tylenol Liquid) 650 mg Q4H PRN NGT PAIN AND OR ELEVATED TEMP Last administered on 02/25/17 11:00; Admin Dose 650 MG; Start 01/26/17 at 09:00 Metoprolol Tartrate (Lopressor) 2.5 mg Q4H PRN IV HR > 110 Last administered on 02/23/17 03:58; Admin Dose 2.5 MG; Start 01/26/17 at 15:00 Midodrine (Proamatine) 5 mg Q8 PRN GTB BLOOD PRESSURE SUPPORT Last administered on 03/06/17 08:01; Admin Dose 5 MG; Start 01/28/17 at 16:30 Nystatin (Nystatin Powder) 1 applic BID TOP Last administered on 03/06/17 08:02 ; Admin Dose 1 APPLIC; Start 02/04/17 at 12:00 Eye Lubricant (Artificial Tears Oph) 2 drop Q6H PRN BOTH EYES DRY EYES Last administered on 03/05/17 21:03; Admin Dose 2 DROP; Start 02/13/17 at 15:30 Nystatin (Nystatin Susp) 5 ml QID GTB Last administered on 03/06/17 08:01; Admin Dose 5 ML; Start 02/18/17 at 08:00 Lansoprazole (Prevacid) 30 mg BID@,18 GTB Last administered on 03/06/17 05:31 ; Admin Dose 30 MG; Start 02/18/17 at 18:00 Amoxicillin (Amoxicillin Susp) 1,000 mg BID GTB Last administered on 03/06/17 08:05; Admin Dose 1,000 MG; Start 02/20/17 at 21:00; Stop 03/06/17 at 20:59 Clarithromycin (Biaxin) 500 mg BID GTB Last administered on 03/06/17 08:01; Admin Dose 500 MG; Start 02/20/17 at 21:00 Metoprolol Tartrate (Lopressor) 12.5 mg BID GTB Last administered on 03/06/17 08:01; Admin Dose 12.5 MG; Start 02/22/17 at 22:30 Apixaban (Eliquis) 5 mg BID GTB Last administered on 03/06/17 08:05; Admin Dose 5 MG; Start 02/22/17 at 22:00 JOSE LOMAS Mar 06, 2017 10:31
[2017-03-06] MEDS: ACETAMINOPHEN 650MG/20.3ML CUP NGT PRN (15:34)
--- NOTE | 2017-03-06 18:27 | CONS ---
GIRISH SCHMITZ PROCESS STEWARD 03/06/17 1827: Date/Time of Note Date/Time of Note DATE: 03/06/17 TIME: 18:23 Assessment/Plan Assessment/Plan Chief Complaint/Hosp Course Assessment/impression: - s/p UTI due to proteus - diffuse moderate degree of gastritis s/p EGD 02/15/2017 - gastritis due to H. pylori based on pathology 02/15/2017, on clarithromycin based regimen (02/20/2017-), [id number] - bleeding from GT site, and blood clots in tube feed - resolved - recurrent CVA - possible aspiration, improved - encephalopathy due to CVA. CSF from 01/19/2017: WBC=3, RBC=0, glu 53, pro=61, CSF ([place] serology negative, HSV negative, cocci CF negative, encephalitis meningitis panel could not be done due to a lack of sample), serum ([place] PCR negative, crypto antigen negative, cocci CF negative, histo CF negative). my order of crypto in CSF was cancelled and no reason given - bacteremia due to CoNS, probable contaminant. 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 pylori (-03/06/2017) today, then monitor off systemic antibiotics Management d/w patient, her family at bedside, NARESH Sawyer, and Dr. Carbajal Problems: Consultation Date/Type/Reason Admit Date/Time Jan 16, 2017 at 15:19 Initial Consult Date 01/17/17 Type of Consultation: Infectious Disease Referring Provider: LAWRENCE PICKERING 24 HR Interval Summary Free Text/Dictation States she is hungry. Family asking when pt can have swallow eval. Denies pain, n/v/d, dysuria. Answers simple questions appropriately. Ambulates to bathroom with 2 person assist with unsteady gait per d/w nursing staff. Exam/Review of Systems Vital Signs Vitals Vital Signs Date Time Temp Pulse Resp B/P Pulse Ox O2 Delivery O2 Flow Rate FiO2 03/06/17 16:35 71 03/06/17 15:26 98.0 16 96/55 98 03/06/17 14:18 21 Intake and Output 03/05/17 03/05/17 03/06/17 15:00 23:00 07:00 Intake Total 1000 ml 950 ml Output Total 750 ml 850 ml Balance 250 ml 100 ml Exam Constitutional: alert, oriented, well-developed, other (smiling at times) Head: atraumatic, normocephalic Respiratory: clear to auscultation No wheezing Cardiovascular: irregular rhythm Gastrointestinal: other (G-tube intact), soft, No tender Genitourinary - Female: bladder flat Musculoskeletal: nl extremities to inspection, normal pulses Extremities: No edema, Other (L heel eschar/dressing is c/d/i) Neurological: Other (speech clear but soft, primarily Mongolian speaking; ESTEVEZ) Skin: nl turgor Results Result Diagram: 03/06/17 0601 03/05/17 1707 Results 24 hrs Laboratory Tests Test 03/06/17 06:01 White Blood Count 7.3 Red Blood Count 3.83 L Hemoglobin 10.2 L Hematocrit 32.7 L Mean Corpuscular Volume 85.4 Mean Corpuscular Hemoglobin 26.6 L Mean Corpuscular Hemoglobin Concent 31.2 L Red Cell Distribution Width 17.3 H Platelet Count 363 Mean Platelet Volume 12.8 H Neutrophils % 66.6 Lymphocytes % 20.4 Monocytes % 6.9 Eosinophils % 4.5 Basophils % 1.2 Nucleated Red Blood Cells % 0.0 Neutrophils # (Manual) 4.9 Lymphocytes # 1.5 Monocytes # 0.5 Eosinophils # 0.3 Basophils # 0.1 Nucleated Red Blood Cells # 0.0 Medications Medications Current Medications Miscellaneous Information 1 ea NOTE XX ; Start 01/17/17 at 10:00 Glucose (Glutose) 15 gm Q15M PRN PO DECREASED GLUCOSE; Start 01/17/17 at 10:00 Glucose (Glutose) 22.5 gm Q15M PRN PO DECREASED GLUCOSE; Start 01/17/17 at 10: 00 Dextrose (D50w Syringe) 25 ml Q15M PRN IV DECREASED GLUCOSE; Start 01/17/17 at 10:00 Dextrose (D50w Syringe) 50 ml Q15M PRN IV DECREASED GLUCOSE; Start 01/17/17 at 10:00 Glucagon (Glucagen) 1 mg Q15M PRN IM DECREASED GLUCOSE; Start 01/17/17 at 10:00 Glucose (Glutose) 15 gm Q15M PRN BUCCAL DECREASED GLUCOSE; Start 01/17/17 at 10 :00 Collagenase (Santyl) 1 applic DAILY TOP Last administered on 03/06/17 08:02; Admin Dose 1 APPLIC; Start 01/17/17 at 21:00 IV Flush (NS 10 ml) 10 ml PRN PRN IV IV PROTOCOL Last administered on 21:45; Admin Dose 10 ML; Start 01/22/17 at 12:00 Miscellaneous Information (Pending Santyl Order For Wound Care) This patient dunaway... PRN PRN XX WOUND CARE; Start 01/24/17 at 07:30 Bisacodyl (Dulcolax Supp) 10 mg DAILY PRN [place] CONSTIPATION Last administered on 02/24/17 15:02; Admin Dose 10 MG; Start 01/25/17 at 16:30 Acetaminophen (Tylenol Liquid) 650 mg Q4H PRN NGT PAIN AND OR ELEVATED TEMP Last administered on 03/06/17 15:34; Admin Dose 650 MG; Start 01/26/17 at 09:00 Metoprolol Tartrate (Lopressor) 2.5 mg Q4H PRN IV HR > 110 Last administered on 02/23/17 03:58; Admin Dose 2.5 MG; Start 01/26/17 at 15:00 Midodrine (Proamatine) 5 mg Q8 PRN GTB BLOOD PRESSURE SUPPORT Last administered on 03/06/17 08:01; Admin Dose 5 MG; Start 01/28/17 at 16:30 Nystatin (Nystatin Powder) 1 applic BID TOP Last administered on 03/06/17 08:02 ; Admin Dose 1 APPLIC; Start 02/04/17 at 12:00 Eye Lubricant (Artificial Tears Oph) 2 drop Q6H PRN BOTH EYES DRY EYES Last administered on 03/05/17 21:03; Admin Dose 2 DROP; Start 02/13/17 at 15:30 Nystatin (Nystatin Susp) 5 ml QID GTB Last administered on 03/06/17 16:56; Admin Dose 5 ML; Start 02/18/17 at 08:00 Lansoprazole (Prevacid) 30 mg BID@,18 GTB Last administered on 03/06/17 16:56 ; Admin Dose 30 MG; Start 02/18/17 at 18:00 Amoxicillin (Amoxicillin Susp) 1,000 mg BID GTB Last administered on 03/06/17 08:05; Admin Dose 1,000 MG; Start 02/20/17 at 21:00; Stop 03/06/17 at 20:59 Clarithromycin (Biaxin) 500 mg BID GTB Last administered on 03/06/17 08:01; Admin Dose 500 MG; Start 02/20/17 at 21:00 Metoprolol Tartrate (Lopressor) 12.5 mg BID GTB Last administered on 03/06/17 08:01; Admin Dose 12.5 MG; Start 02/22/17 at 22:30 Apixaban (Eliquis) 5 mg BID GTB Last administered on 03/06/17 08:05; Admin Dose 5 MG; Start 02/22/17 at 22:00 TYE CARBAJAL M.D. 03/07/17 1747: Assessment/Plan Assessment/Plan Additional Assessment/Plan [place] attestation: I discussed the management with LUNA Schmitz and agree with above Exam/Review of Systems Results Result Diagram: 03/06/17 0601 03/05/17 1707 GIRISH SCHMITZ NP Mar 06, 2017 18:27 TYE CARBAJAL M.D. Mar 07, 2017 17:47
[2017-03-06] MEDS: ARTIFICIAL TEARS 15 ML OPH BOTH EYES PRN (23:20)
[2017-03-07] VITALS (12 sets, daily range): BP systolic 87–109; BP diastolic 48–59; PULSE 77–108; RESP 16–18
[2017-03-07] MEDS: LEVALBUTEROL (NEB) 0.63 MG/3 ML AMP HHN SCH ×4 (01:59→20:08)
[2017-03-07] MEDS: LANSOPRAZOLE 30 MG CAP GTB SCH ×2 (07:09→17:05)
[2017-03-07] MEDS: CLARITHROMYCIN 500 MG TAB GTB SCH (08:04)
[2017-03-07] MEDS: NYSTATIN SUSP 5 ML CUP GTB SCH ×4 (08:04→21:41)
[2017-03-07] MEDS: MIDODRINE 5 MG TAB GTB PRN (08:04)
[2017-03-07] MEDS: APIXABAN 5 MG TABLET GTB SCH ×2 (08:04→21:41)
[2017-03-07] MEDS: NYSTATIN 30 GM POWDER BTL TOP SCH ×2 (08:05→21:41)
[2017-03-07] MEDS: METOPROLOL 25 MG TAB GTB SCH ×2 (08:05→21:42)
[2017-03-07] MEDS: COLLAGENASE 30 GM TUBE TOP SCH (08:05)
--- NOTE | 2017-03-07 11:17 | PN ---
Date/Time of Note Date/Time of Note DATE: 03/07/17 TIME: 11:17 Assessment/Plan VTE Prophylaxis VTE Prophylaxis Intervention: other Lines/Catheters IV [facility] Type (from [facility] PICC Line Central line still needed: Yes Urinary Cath still in place: Yes Reason Cath still needed: skin wounds contaminated by urine Assessment/Plan Chief Complaint/Hosp Course - Urinary tract infection, continue antibiotics per ID. Dr. Abarca is following in an infection disease consultation. - Gastritis due to H. pylori, continue triple therapy per H. pylori eradication - Possible bleeding from G-tube and hematuria, resolved status post EGD was notion of gastritis, continue Protonix. - Bilateral thalamic infarctions. - Dysphagia, status post G-tube placement by Dr. Garcia. - Atrial fibrillation with rapid ventricular response. Dr. Armenta is following and cardiology consultation. Continue Eliquis. - Thrombosis of the bilateral cephalic veins. - Acute kidney injury, resolved. - History of CVA - History of hyperlipidemia Problems: Subjective 24 Hr Interval Summary Free Text/Dictation Patient not responsive to voice or touch Exam/Review of Systems Vital Signs Vitals Vital Signs Date Time Temp Pulse Resp B/P Pulse Ox O2 Delivery O2 Flow Rate FiO2 03/07/17 11:11 98.3 70 18 87/53 98 03/07/17 08:23 21 Intake and Output 03/06/17 03/06/17 03/07/17 15:00 23:00 07:00 Intake Total 750 ml 1100 ml Output Total 500 ml 650 ml Balance 250 ml 450 ml Exam Constitutional: well developed Head: atraumatic, normocephalic Neck: supple Respiratory: clear to auscultation Cardiovascular: regular rate and rhythm Gastrointestinal: non-tender, soft Extremities: normal pulses Results Result Diagram: 03/06/17 0601 03/05/17 1707 Medications Medications Current Medications Miscellaneous Information 1 ea NOTE XX ; Start 01/17/17 at 10:00 Glucose (Glutose) 15 gm Q15M PRN PO DECREASED GLUCOSE; Start 01/17/17 at 10:00 Glucose (Glutose) 22.5 gm Q15M PRN PO DECREASED GLUCOSE; Start 01/17/17 at 10: 00 Dextrose (D50w Syringe) 25 ml Q15M PRN IV DECREASED GLUCOSE; Start 01/17/17 at 10:00 Dextrose (D50w Syringe) 50 ml Q15M PRN IV DECREASED GLUCOSE; Start 01/17/17 at 10:00 Glucagon (Glucagen) 1 mg Q15M PRN IM DECREASED GLUCOSE; Start 01/17/17 at 10:00 Glucose (Glutose) 15 gm Q15M PRN BUCCAL DECREASED GLUCOSE; Start 01/17/17 at 10 :00 Collagenase (Santyl) 1 applic DAILY TOP Last administered on 03/07/17 08:05; Admin Dose 1 APPLIC; Start 01/17/17 at 21:00 IV Flush (NS 10 ml) 10 ml PRN PRN IV IV PROTOCOL Last administered on 21:45; Admin Dose 10 ML; Start 01/22/17 at 12:00 Miscellaneous Information (Pending Santyl Order For Wound Care) This patient dunaway... PRN PRN XX WOUND CARE; Start 01/24/17 at 07:30 Bisacodyl (Dulcolax Supp) 10 mg DAILY PRN [place] CONSTIPATION Last administered on 02/24/17 15:02; Admin Dose 10 MG; Start 01/25/17 at 16:30 Acetaminophen (Tylenol Liquid) 650 mg Q4H PRN NGT PAIN AND OR ELEVATED TEMP Last administered on 03/06/17 15:34; Admin Dose 650 MG; Start 01/26/17 at 09:00 Metoprolol Tartrate (Lopressor) 2.5 mg Q4H PRN IV HR > 110 Last administered on 02/23/17 03:58; Admin Dose 2.5 MG; Start 01/26/17 at 15:00 Midodrine (Proamatine) 5 mg Q8 PRN GTB BLOOD PRESSURE SUPPORT Last administered on 03/07/17 08:04; Admin Dose 5 MG; Start 01/28/17 at 16:30 Nystatin (Nystatin Powder) 1 applic BID TOP Last administered on 03/07/17 08:05 ; Admin Dose 1 APPLIC; Start 02/04/17 at 12:00 Eye Lubricant (Artificial Tears Oph) 2 drop Q6H PRN BOTH EYES DRY EYES Last administered on 03/06/17 23:20; Admin Dose 2 DROP; Start 02/13/17 at 15:30 Nystatin (Nystatin Susp) 5 ml QID GTB Last administered on 03/07/17 08:04; Admin Dose 5 ML; Start 02/18/17 at 08:00 Lansoprazole (Prevacid) 30 mg BID@ GTB Last administered on 03/07/17 07:09 ; Admin Dose 30 MG; Start 02/18/17 at 18:00 Clarithromycin (Biaxin) 500 mg BID GTB Last administered on 03/07/17 08:04; Admin Dose 500 MG; Start 02/20/17 at 21:00 Metoprolol Tartrate (Lopressor) 12.5 mg BID GTB Last administered on 03/06/17 22:07; Admin Dose 12.5 MG; Start 02/22/17 at 22:30 Apixaban (Eliquis) 5 mg BID GTB Last administered on 03/07/17 08:04; Admin Dose 5 MG; Start 02/22/17 at 22:00 JOSE LOMAS Mar 07, 2017 11:17
--- NOTE | 2017-03-07 17:50 | CONS ---
Date/Time of Note Date/Time of Note DATE: 03/07/17 TIME: 17:47 Assessment/Plan Assessment/Plan Chief Complaint/Hosp Course Assessment/impression: - s/p UTI due to proteus - diffuse moderate degree of gastritis s/p EGD 02/15/2017 - gastritis due to H. pylori based on pathology 02/15/2017. S/p clarithromycin based regimen (02/20/2017-03/06/2017), [id number] - bleeding from GT site, and blood clots in tube feed - resolved - recurrent CVA - possible aspiration, improved - encephalopathy due to CVA. CSF from 01/19/2017: WBC=3, RBC=0, glu 53, pro=61, CSF ([place] serology negative, HSV negative, cocci CF negative, encephalitis meningitis panel could not be done due to a lack of sample), serum ([place] PCR negative, crypto antigen negative, cocci CF negative, histo CF negative). my order of crypto in CSF was cancelled and no reason given - bacteremia due to CoNS, probable contaminant. 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) - A fib - h/o DVT - h/o LLE ischemia s/p thrombolysis and subsequent open thrombectomy and fasciotomy at [facility] 09/2015 - h/o thrombus on DEBBIE per records from [facility] - h/o funguria - Lees catheter was changed 02/11/2017 recommendations: - panculture if temp >100.4F - monitor Pt off systemic antibiotics - ID consult team will see this Pt as needed management d/w Pt, her Problems: Consultation Date/Type/Reason Admit Date/Time Jan 16, 2017 at 15:19 Initial Consult Date 01/17/17 Type of Consultation: Infectious Disease Referring Provider: LAWRENCE PICKERING 24 HR Interval Summary Free Text/Dictation limited because she is nearly non-verbal Constitutional: no complaints Detailed Summary Respiratory: no complaints Cardiovascular: no complaints Gastrointestinal: no complaints Exam/Review of Systems Vital Signs Vitals Vital Signs Date Time Temp Pulse Resp B/P Pulse Ox O2 Delivery O2 Flow Rate FiO2 03/07/17 16:13 83 03/07/17 15:10 98.4 18 103/48 100 03/07/17 13:45 21 Intake and Output 03/06/17 03/06/17 03/07/17 15:00 23:00 07:00 Intake Total 750 ml 1100 ml Output Total 500 ml 650 ml Balance 250 ml 450 ml Exam Constitutional: frail, non-verbal Psych: nl mood/affect, no complaints Head: atraumatic, normocephalic Eyes: nl conjunctiva, other (L ptosis) ENMT: nl external ears & nose Respiratory: diminished breath sounds Cardiovascular: nl pulses, regular rate and rhythm Gastrointestinal: non-tender, other (PEG), soft Musculoskeletal: nl extremities to inspection Skin: nl turgor, No rash or lesions Results Result Diagram: 03/06/17 0601 03/05/17 1707 Medications Medications Current Medications Miscellaneous Information 1 ea NOTE XX ; Start 01/17/17 at 10:00 Glucose (Glutose) 15 gm Q15M PRN PO DECREASED GLUCOSE; Start 01/17/17 at 10:00 Glucose (Glutose) 22.5 gm Q15M PRN PO DECREASED GLUCOSE; Start 01/17/17 at 10: 00 Dextrose (D50w Syringe) 25 ml Q15M PRN IV DECREASED GLUCOSE; Start 01/17/17 at 10:00 Dextrose (D50w Syringe) 50 ml Q15M PRN IV DECREASED GLUCOSE; Start 01/17/17 at 10:00 Glucagon (Glucagen) 1 mg Q15M PRN IM DECREASED GLUCOSE; Start 01/17/17 at 10:00 Glucose (Glutose) 15 gm Q15M PRN BUCCAL DECREASED GLUCOSE; Start 01/17/17 at 10 :00 Collagenase (Santyl) 1 applic DAILY TOP Last administered on 03/07/17 08:05; Admin Dose 1 APPLIC; Start 01/17/17 at 21:00 IV Flush (NS 10 ml) 10 ml PRN PRN IV IV PROTOCOL Last administered on 21:45; Admin Dose 10 ML; Start 01/22/17 at 12:00 Miscellaneous Information (Pending Santyl Order For Wound Care) This patient dunaway... PRN PRN XX WOUND CARE; Start 01/24/17 at 07:30 Bisacodyl (Dulcolax Supp) 10 mg DAILY PRN [place] CONSTIPATION Last administered on 02/24/17 15:02; Admin Dose 10 MG; Start 01/25/17 at 16:30 Acetaminophen (Tylenol Liquid) 650 mg Q4H PRN NGT PAIN AND OR ELEVATED TEMP Last administered on 03/06/17 15:34; Admin Dose 650 MG; Start 01/26/17 at 09:00 Metoprolol Tartrate (Lopressor) 2.5 mg Q4H PRN IV HR > 110 Last administered on 02/23/17 03:58; Admin Dose 2.5 MG; Start 01/26/17 at 15:00 Midodrine (Proamatine) 5 mg Q8 PRN GTB BLOOD PRESSURE SUPPORT Last administered on 03/07/17 08:04; Admin Dose 5 MG; Start 01/28/17 at 16:30 Nystatin (Nystatin Powder) 1 applic BID TOP Last administered on 03/07/17 08:05 ; Admin Dose 1 APPLIC; Start 02/04/17 at 12:00 Eye Lubricant (Artificial Tears Oph) 2 drop Q6H PRN BOTH EYES DRY EYES Last administered on 03/06/17 23:20; Admin Dose 2 DROP; Start 02/13/17 at 15:30 Nystatin (Nystatin Susp) 5 ml QID GTB Last administered on 03/07/17 17:05; Admin Dose 5 ML; Start 02/18/17 at 08:00 Lansoprazole (Prevacid) 30 mg BID@,18 GTB Last administered on 03/07/17 17:05 ; Admin Dose 30 MG; Start 02/18/17 at 18:00 Clarithromycin (Biaxin) 500 mg BID GTB Last administered on 03/07/17 08:04; Admin Dose 500 MG; Start 02/20/17 at 21:00 Metoprolol Tartrate (Lopressor) 12.5 mg BID GTB Last administered on 03/06/17 22:07; Admin Dose 12.5 MG; Start 02/22/17 at 22:30 Apixaban (Eliquis) 5 mg BID GTB Last administered on 03/07/17 08:04; Admin Dose 5 MG; Start 02/22/17 at 22:00 TYE STYLES M.D. Mar 07, 2017 17:50
[2017-03-07] MEDS: ACETAMINOPHEN 650MG/20.3ML CUP NGT PRN (21:41)
[2017-03-07] MEDS: ARTIFICIAL TEARS 15 ML OPH BOTH EYES PRN (21:41)
[2017-03-08] VITALS (13 sets, daily range): BP systolic 93–114; BP diastolic 55–74; PULSE 74–97; RESP 15–18
[2017-03-08] MEDS: LEVALBUTEROL (NEB) 0.63 MG/3 ML AMP HHN SCH ×4 (01:55→20:24)
[2017-03-08] MEDS: LANSOPRAZOLE 30 MG CAP GTB SCH ×2 (05:38→17:04)
[2017-03-08] MEDS: COLLAGENASE 30 GM TUBE TOP SCH (08:15)
[2017-03-08] MEDS: NYSTATIN 30 GM POWDER BTL TOP SCH ×2 (08:15→22:49)
[2017-03-08] MEDS: METOPROLOL 25 MG TAB GTB SCH ×2 (08:37→22:49)
[2017-03-08] MEDS: APIXABAN 5 MG TABLET GTB SCH ×2 (08:37→22:49)
[2017-03-08] MEDS: NYSTATIN SUSP 5 ML CUP GTB SCH ×4 (08:38→22:48)
--- NOTE | 2017-03-08 10:15 | PN ---
Date/Time of Note Date/Time of Note DATE: 03/08/17 TIME: 10:15 Assessment/Plan VTE Prophylaxis VTE Prophylaxis Intervention: other Lines/Catheters [facility] Type [facility] PICC Line Central line still needed: Yes Urinary Cath still in place: Yes Reason Cath still needed: skin wounds contaminated by urine Assessment/Plan Chief Complaint/Hosp Course - Urinary tract infection, continue antibiotics per ID. Dr. Abarca is following in an infection disease consultation. - Gastritis due to H. pylori, continue triple therapy per H. pylori eradication - Possible bleeding from G-tube and hematuria, resolved status post EGD was notion of gastritis, continue Protonix. - Bilateral thalamic infarctions. - Dysphagia, status post G-tube placement by Dr. Garcia. - Atrial fibrillation with rapid ventricular response. Dr. Armenta is following and cardiology consultation. Continue Eliquis. - Thrombosis of the bilateral cephalic veins. - Acute kidney injury, resolved. - History of CVA - History of hyperlipidemia Problems: Subjective 24 Hr Interval Summary Free Text/Dictation Patient is not responsive Exam/Review of Systems Vital Signs Vitals Vital Signs Date Time Temp Pulse Resp B/P Pulse Ox O2 Delivery O2 Flow Rate FiO2 03/08/17 08:20 86 03/08/17 07:39 98.5 18 109/55 99 03/08/17 07:23 21 Intake and Output 03/07/17 03/07/17 03/08/17 15:00 23:00 07:00 Intake Total 900 ml 1100 ml Output Total 650 ml 650 ml Balance 250 ml 450 ml Exam Constitutional: well developed Head: atraumatic, normocephalic Neck: supple Respiratory: diminished breath sounds Cardiovascular: regular rate and rhythm Gastrointestinal: non-tender, soft Extremities: normal pulses Results Result Diagram: 03/06/17 0601 03/05/17 1707 Medications Medications Current Medications Miscellaneous Information 1 ea NOTE XX ; Start 01/17/17 at 10:00 Glucose (Glutose) 15 gm Q15M PRN PO DECREASED GLUCOSE; Start 01/17/17 at 10:00 Glucose (Glutose) 22.5 gm Q15M PRN PO DECREASED GLUCOSE; Start 01/17/17 at 10: 00 Dextrose (D50w Syringe) 25 ml Q15M PRN IV DECREASED GLUCOSE; Start 01/17/17 at 10:00 Dextrose (D50w Syringe) 50 ml Q15M PRN IV DECREASED GLUCOSE; Start 01/17/17 at 10:00 Glucagon (Glucagen) 1 mg Q15M PRN IM DECREASED GLUCOSE; Start 01/17/17 at 10:00 Glucose (Glutose) 15 gm Q15M PRN BUCCAL DECREASED GLUCOSE; Start 01/17/17 at 10 :00 Collagenase (Santyl) 1 applic DAILY TOP Last administered on 03/07/17 08:05; Admin Dose 1 APPLIC; Start 01/17/17 at 21:00 IV Flush (NS 10 ml) 10 ml PRN PRN IV IV PROTOCOL Last administered on 21:45; Admin Dose 10 ML; Start 01/22/17 at 12:00 Miscellaneous Information (Pending Santyl Order For Wound Care) This patient dunaway... PRN PRN XX WOUND CARE; Start 01/24/17 at 07:30 Bisacodyl (Dulcolax Supp) 10 mg DAILY PRN [place] CONSTIPATION Last administered on 02/24/17 15:02; Admin Dose 10 MG; Start 01/25/17 at 16:30 Acetaminophen (Tylenol Liquid) 650 mg Q4H PRN NGT PAIN AND OR ELEVATED TEMP Last administered on 03/07/17 21:41; Admin Dose 650 MG; Start 01/26/17 at 09:00 Metoprolol Tartrate (Lopressor) 2.5 mg Q4H PRN IV HR > 110 Last administered on 02/23/17 03:58; Admin Dose 2.5 MG; Start 01/26/17 at 15:00 Midodrine (Proamatine) 5 mg Q8 PRN GTB BLOOD PRESSURE SUPPORT Last administered on 03/07/17 08:04; Admin Dose 5 MG; Start 01/28/17 at 16:30 Nystatin (Nystatin Powder) 1 applic BID TOP Last administered on 03/07/17 21:41 ; Admin Dose 1 APPLIC; Start 02/04/17 at 12:00 Eye Lubricant (Artificial Tears Oph) 2 drop Q6H PRN BOTH EYES DRY EYES Last administered on 03/07/17 21:41; Admin Dose 2 DROP; Start 02/13/17 at 15:30 Nystatin (Nystatin Susp) 5 ml QID GTB Last administered on 03/08/17 08:38; Admin Dose 5 ML; Start 02/18/17 at 08:00 Lansoprazole (Prevacid) 30 mg BID@,18 GTB Last administered on 03/08/17 05:38 ; Admin Dose 30 MG; Start 02/18/17 at 18:00 Metoprolol Tartrate (Lopressor) 12.5 mg BID GTB Last administered on 03/08/17 08:37; Admin Dose 12.5 MG; Start 02/22/17 at 22:30 Apixaban (Eliquis) 5 mg BID GTB Last administered on 03/08/17 08:37; Admin Dose 5 MG; Start 02/22/17 at 22:00 JOSE LOMAS Mar 08, 2017 10:15
[2017-03-08] MEDS: ARTIFICIAL TEARS 15 ML OPH BOTH EYES PRN (17:11)
[2017-03-09] VITALS (11 sets, daily range): BP systolic 93–120; BP diastolic 51–64; PULSE 68–99; RESP 15–19
[2017-03-09] MEDS: LEVALBUTEROL (NEB) 0.63 MG/3 ML AMP HHN SCH ×4 (02:09→20:22)
[2017-03-09] MEDS: LANSOPRAZOLE 30 MG CAP GTB SCH ×2 (05:25→17:17)
[2017-03-09] MEDS: COLLAGENASE 30 GM TUBE TOP SCH (08:41)
[2017-03-09] MEDS: NYSTATIN 30 GM POWDER BTL TOP SCH ×2 (08:41→21:32)
[2017-03-09] MEDS: NYSTATIN SUSP 5 ML CUP GTB SCH ×4 (09:02→21:34)
[2017-03-09] MEDS: APIXABAN 5 MG TABLET GTB SCH ×2 (09:02→21:15)
[2017-03-09] MEDS: METOPROLOL 25 MG TAB GTB SCH ×2 (09:03→21:18)
--- NOTE | 2017-03-09 14:52 | PN ---
Date/Time of Note Date/Time of Note DATE: 03/09/17 TIME: 14:48 Assessment/Plan VTE Prophylaxis VTE Prophylaxis Intervention: other Lines/Catheters IV Catheter Type (from [facility]): PICC Line Central line still needed: Yes Urinary Cath still in place: Yes Reason Cath still needed: urinary retention Assessment/Plan Assessment/Plan - Urinary tract infection, continue antibiotics per ID. Dr. Abarca is following in an infection disease consultation. - Gastritis due to H. pylori, continue triple therapy per H. pylori eradication - Possible bleeding from G-tube and hematuria, resolved status post EGD was notion of gastritis, continue Protonix. - Bilateral thalamic infarctions. - Dysphagia, status post G-tube placement by Dr. Garcia. - Atrial fibrillation with rapid ventricular response. Dr. Armenta is following and cardiology consultation. Continue Eliquis. - Thrombosis of the bilateral cephalic veins. - Acute kidney injury, resolved. - History of CVA - History of hyperlipidemia dw dr Valdovinos/staff Subjective 24 Hr Interval Summary Free Text/Dictation alert. responsive, afebrile. placement pending. dw staff- will order swallow eval per family request. Respiratory: no complaints Cardiovascular: no complaints Gastrointestinal: no complaints Genitourinary: no complaints Musculoskeletal: no complaints Exam/Review of Systems Vital Signs Vitals Vital Signs Date Time Temp Pulse Resp B/P Pulse Ox O2 Delivery O2 Flow Rate FiO2 03/09/17 13:29 83 18 94 21 03/09/17 11:20 98.3 120/62 03/08/17 11:11 Room Air Intake and Output 03/08/17 03/08/17 03/09/17 15:00 23:00 07:00 Intake Total 1100 ml 950 ml Output Total 650 ml 1000 ml Balance 450 ml -50 ml Exam Constitutional: alert, well developed Respiratory: clear to auscultation, normal air movement Cardiovascular: nl pulses, regular rate and rhythm Gastrointestinal: non-tender, soft Musculoskeletal: nl extremities to inspection Extremities: normal pulses Neurological: nl speech, other Results Result Diagram: 03/06/17 0601 03/05/17 1707 Medications Medications Current Medications Miscellaneous Information 1 ea NOTE XX ; Start 01/17/17 at 10:00 Glucose (Glutose) 15 gm Q15M PRN PO DECREASED GLUCOSE; Start 01/17/17 at 10:00 Glucose (Glutose) 22.5 gm Q15M PRN PO DECREASED GLUCOSE; Start 01/17/17 at 10: 00 Dextrose (D50w Syringe) 25 ml Q15M PRN IV DECREASED GLUCOSE; Start 01/17/17 at 10:00 Dextrose (D50w Syringe) 50 ml Q15M PRN IV DECREASED GLUCOSE; Start 01/17/17 at 10:00 Glucagon (Glucagen) 1 mg Q15M PRN IM DECREASED GLUCOSE; Start 01/17/17 at 10:00 Glucose (Glutose) 15 gm Q15M PRN BUCCAL DECREASED GLUCOSE; Start 01/17/17 at 10 :00 Collagenase (Santyl) 1 applic DAILY TOP Last administered on 03/07/17 08:05; Admin Dose 1 APPLIC; Start 01/17/17 at 21:00 IV Flush (NS 10 ml) 10 ml PRN PRN IV IV PROTOCOL Last administered on 21:45; Admin Dose 10 ML; Start 01/22/17 at 12:00 Miscellaneous Information (Pending Santyl Order For Wound Care) This patient dunaway... PRN PRN XX WOUND CARE; Start 01/24/17 at 07:30 Bisacodyl (Dulcolax Supp) 10 mg DAILY PRN [place] CONSTIPATION Last administered on 02/24/17 15:02; Admin Dose 10 MG; Start 01/25/17 at 16:30 Acetaminophen (Tylenol Liquid) 650 mg Q4H PRN NGT PAIN AND OR ELEVATED TEMP Last administered on 03/07/17 21:41; Admin Dose 650 MG; Start 01/26/17 at 09:00 Metoprolol Tartrate (Lopressor) 2.5 mg Q4H PRN IV HR > 110 Last administered on 02/23/17 03:58; Admin Dose 2.5 MG; Start 01/26/17 at 15:00 Midodrine (Proamatine) 5 mg Q8 PRN GTB BLOOD PRESSURE SUPPORT Last administered on 03/07/17 08:04; Admin Dose 5 MG; Start 01/28/17 at 16:30 Nystatin (Nystatin Powder) 1 applic BID TOP Last administered on 03/09/17 08:41 ; Admin Dose 1 APPLIC; Start 02/04/17 at 12:00 Eye Lubricant (Artificial Tears Oph) 2 drop Q6H PRN BOTH EYES DRY EYES Last administered on 03/08/17 17:11; Admin Dose 2 DROP; Start 02/13/17 at 15:30 Nystatin (Nystatin Susp) 5 ml QID GTB Last administered on 03/09/17 12:21; Admin Dose 5 ML; Start 02/18/17 at 08:00 Lansoprazole (Prevacid) 30 mg BID@,18 GTB Last administered on 03/09/17 05:25 ; Admin Dose 30 MG; Start 02/18/17 at 18:00 Metoprolol Tartrate (Lopressor) 12.5 mg BID GTB Last administered on 03/09/17 09:03; Admin Dose 12.5 MG; Start 02/22/17 at 22:30 Apixaban (Eliquis) 5 mg BID GTB Last administered on 03/09/17 09:02; Admin Dose 5 MG; Start 02/22/17 at 22:00 ALEXIS NAJERA Mar 09, 2017 14:51
--- NOTE | 2017-03-09 20:57 | PN ---
Date/Time of Note Date/Time of Note DATE: 03/09/17 TIME: 20:49 Assessment/Plan VTE Prophylaxis VTE Prophylaxis Intervention: other (APIXABAN) Lines/Catheters IV Catheter Type (from Nrsg): PICC Line Central line still needed: Yes Urinary Cath still in place: Yes Reason Cath still needed: other (indicate) (Medical and comfprt neccesity) Assessment/Plan Chief Complaint/Hosp Course 1. AF-mainly rate controlled/Trop negative x 3. Had pause x 3.7 seconds 01/30 on standing IVP BB. No recurrence since decrease in IVP BB. Tolerating low dose PO BB well 2.Hypotension-on midodrine 3.encephalopathy/ams-slowly improving 4.coagulopathy-now on eliquis 5. Acute Renal failure-Now resolved 6.Leukocytosis 7. Cardiomyopathy-EF 45% 8. Cephalic vein thrombosis 9. Dysphagia s/p PEG 10. H Pylori Continue current treatment. Decide about nutrition after the swallowing test. ALCON GIPSON MD Problems: Subjective 24 Hr Interval Summary Free Text/Dictation Patient is disabled secondary to CVA. She is a ble to communicate despite aphasia and dysarthria. She complains of hunger. By auscultation, no murmurs. Lungs are clear. Heart rhythm is a. fib. with controlled rate. Exam/Review of Systems Vital Signs Vitals Vital Signs Date Time Temp Pulse Resp B/P Pulse Ox O2 Delivery O2 Flow Rate FiO2 03/09/17 20:22 69 16 94 21 03/09/17 19:46 98.6 106/51 03/08/17 11:11 Room Air Intake and Output 03/08/17 03/08/17 03/09/17 15:00 23:00 07:00 Intake Total 1100 ml 950 ml Output Total 650 ml 1000 ml Balance 450 ml -50 ml Exam Exam Review of Systems: CONSTITUTIONAL: No fevers, chills. PULMONARY: No sob CARDIOVASCULAR: No chest pain/palpitations GASTROINTESTINAL: No nausea/vomiting. GENITOURINARY: No hematuria/dysuria. MUSCULOSKELETAL: No myagias/arthalgias. PSYCHIATRIC: The patient denies depression. NEUROLOGIC: No weakness Constitutional: alert, other (non-communicative) Psych: no complaints Head: normocephalic ENMT: mucosa pink and moist Neck: jvd (9 cm water), supple Respiratory: diminished breath sounds (at bases/B) Cardiovascular: regular rate and rhythm Gastrointestinal: non-tender, soft Musculoskeletal: muscle tone (normal) Extremities: edema (trace/B) Neurological: confused Results Result Diagram: 03/06/17 0601 03/05/17 1707 Medications Medications Current Medications Miscellaneous Information 1 ea NOTE XX ; Start 01/17/17 at 10:00 Glucose (Glutose) 15 gm Q15M PRN PO DECREASED GLUCOSE; Start 01/17/17 at 10:00 Glucose (Glutose) 22.5 gm Q15M PRN PO DECREASED GLUCOSE; Start 01/17/17 at 10: 00 Dextrose (D50w Syringe) 25 ml Q15M PRN IV DECREASED GLUCOSE; Start 01/17/17 at 10:00 Dextrose (D50w Syringe) 50 ml Q15M PRN IV DECREASED GLUCOSE; Start 01/17/17 at 10:00 Glucagon (Glucagen) 1 mg Q15M PRN IM DECREASED GLUCOSE; Start 01/17/17 at 10:00 Glucose (Glutose) 15 gm Q15M PRN BUCCAL DECREASED GLUCOSE; Start 01/17/17 at 10 :00 Collagenase (Santyl) 1 applic DAILY TOP Last administered on 03/07/17 08:05; Admin Dose 1 APPLIC; Start 01/17/17 at 21:00 IV Flush (NS 10 ml) 10 ml PRN PRN IV IV PROTOCOL Last administered on 21:45; Admin Dose 10 ML; Start 01/22/17 at 12:00 Miscellaneous Information (Pending Santyl Order For Wound Care) This patient dunaway... PRN PRN XX WOUND CARE; Start 01/24/17 at 07:30 Bisacodyl (Dulcolax Supp) 10 mg DAILY PRN [place] CONSTIPATION Last administered on 02/24/17 15:02; Admin Dose 10 MG; Start 01/25/17 at 16:30 Acetaminophen (Tylenol Liquid) 650 mg Q4H PRN NGT PAIN AND OR ELEVATED TEMP Last administered on 03/07/17 21:41; Admin Dose 650 MG; Start 01/26/17 at 09:00 Metoprolol Tartrate (Lopressor) 2.5 mg Q4H PRN IV HR > 110 Last administered on 02/23/17 03:58; Admin Dose 2.5 MG; Start 01/26/17 at 15:00 Midodrine (Proamatine) 5 mg Q8 PRN GTB BLOOD PRESSURE SUPPORT Last administered on 03/07/17 08:04; Admin Dose 5 MG; Start 01/28/17 at 16:30 Nystatin (Nystatin Powder) 1 applic BID TOP Last administered on 03/09/17 08:41 ; Admin Dose 1 APPLIC; Start 02/04/17 at 12:00 Eye Lubricant (Artificial Tears Oph) 2 drop Q6H PRN BOTH EYES DRY EYES Last administered on 03/08/17 17:11; Admin Dose 2 DROP; Start 02/13/17 at 15:30 Nystatin (Nystatin Susp) 5 ml QID GTB Last administered on 03/09/17 17:16; Admin Dose 5 ML; Start 02/18/17 at 08:00 Lansoprazole (Prevacid) 30 mg BID@06,18 GTB Last administered on 03/09/17 17:17 ; Admin Dose 30 MG; Start 02/18/17 at 18:00 Metoprolol Tartrate (Lopressor) 12.5 mg BID GTB Last administered on 03/09/17 09:03; Admin Dose 12.5 MG; Start 02/22/17 at 22:30 Apixaban (Eliquis) 5 mg BID GTB Last administered on 03/09/17 09:02; Admin Dose 5 MG; Start 02/22/17 at 22:00 ALCON GIPSON MD Mar 09, 2017 20:57
[2017-03-09] MEDS: ARTIFICIAL TEARS 15 ML OPH BOTH EYES PRN (21:32)
[2017-03-10] VITALS (13 sets, daily range): BP systolic 81–121; BP diastolic 53–69; PULSE 73–105; RESP 17–19
[2017-03-10] MEDS: LEVALBUTEROL (NEB) 0.63 MG/3 ML AMP HHN SCH ×4 (02:06→20:47)
[2017-03-10] MEDS: LANSOPRAZOLE 30 MG CAP GTB SCH ×2 (05:00→17:21)
[2017-03-10 08:23] LABS: BASOPHIL # 0.1 10^3/ul (0.0-0.1); BASOPHILS % 1.2 % (0.0-2.0); EOSINOPHILS # 0.3 10^3/ul (0.0-0.5); EOSINOPHILS % 4.1 % (0.0-7.0); HEMATOCRIT 32.6 % (37.0-47.0); HEMOGLOBIN 10.6 g/dl (12.0-16.0); LYMPHOCYTES # 1.3 10^3/ul (0.8-2.9); LYMPHOCYTES % 19.6 % (15.0-51.0); MEAN CORPUSCULAR HEMOGLOBIN 27.5 pg (29.0-33.0); MEAN CORPUSCULAR HGB CONC 32.5 g/dl (32.0-37.0); MEAN CORPUSCULAR VOLUME 84.7 fl (82.0-101.0); MEAN PLATELET VOLUME 12.6 fl (7.4-10.4); MONOCYTE # 0.4 10^3/ul (0.3-0.9); MONOCYTES % 6.2 % (0.0-11.0); NEUTROPHILS % 68.5 % (39.0-77.0); PLATELET COUNT 350 10^3/UL (140-415); RED BLOOD COUNT 3.85 10^6/ul (4.20-5.40); RED CELL DISTRIBUTION WIDTH 17.2 % (11.5-14.5); WHITE BLOOD COUNT 6.8 10^3/ul (4.8-10.8)
[2017-03-10] MEDS: NYSTATIN SUSP 5 ML CUP GTB SCH ×4 (08:48→20:34)
[2017-03-10] MEDS: APIXABAN 5 MG TABLET GTB SCH ×2 (08:48→20:33)
[2017-03-10] MEDS: COLLAGENASE 30 GM TUBE TOP SCH (08:48)
[2017-03-10] MEDS: NYSTATIN 30 GM POWDER BTL TOP SCH ×2 (08:48→20:34)
[2017-03-10] MEDS: METOPROLOL 25 MG TAB GTB SCH ×2 (08:49→20:33)
[2017-03-10 09:00] LABS: CALCIUM 9.9 mg/dl (8.4-10.2); CREATININE 0.83 mg/dl (0.44-1.00); POTASSIUM 3.6 mmol/L (3.5-5.1)
--- NOTE | 2017-03-10 09:53 | CONS ---
Date/Time of Note Date/Time of Note DATE: 03/10/17 TIME: 09:50 Assessment/Plan Assessment/Plan Chief Complaint/Hosp Course IMP: 1. AF-mainly rate controlled/Trop negative x 3. Had pause x 3.7 seconds 01/30 on standing IVP BB. No recurrence since decrease in IVP BB. Tolerating low dose PO BB well 2.Hypotension-on midodrine 3.encephalopathy/ams-slowly improving 4.coagulopathy-now on eliquis 5. Acute Renal failure-Now resolved 6.Leukocytosis 7. Cardiomyopathy-EF 45% 8. Cephalic vein thrombosis 9. Dysphagia s/p PEG 10. H Pylori Recc: -Tele -serial ecg's -Cont. Eliquis -Continue low dose BB as tolerated only -Continue abx's -Follow MS closely which has had some significant improvement -Continue midodrine for low BP -Continue PPI -No definite indication for PPM at this time Problems: Consultation Date/Type/Reason Admit Date/Time Jan 16, 2017 at 15:19 Initial Consult Date 01/17/17 Type of Consultation: cardiology Reason for Consultation atrial fibrillation Referring Provider: LAWRENCE PICKERING Exam/Review of Systems Vital Signs Vitals Vital Signs Date Time Temp Pulse Resp B/P Pulse Ox O2 Delivery O2 Flow Rate FiO2 03/10/17 09:07 76 18 96 21 03/10/17 08:35 98.4 109/55 03/08/17 11:11 Room Air Intake and Output 03/09/17 03/09/17 03/10/17 15:00 23:00 07:00 Intake Total 1100 ml 1050 ml Output Total 500 ml 950 ml Balance 600 ml 100 ml Exam Review of Systems: CONSTITUTIONAL: No fevers, chills. PULMONARY: No sob CARDIOVASCULAR: No chest pain/palpitations GASTROINTESTINAL: No nausea/vomiting. GENITOURINARY: No hematuria/dysuria. MUSCULOSKELETAL: No myagias/arthalgias. PSYCHIATRIC: The patient denies depression. NEUROLOGIC: lethargic Constitutional: other (sleeping) Psych: no complaints Head: normocephalic ENMT: mucosa pink and moist Neck: jvd (8 cm water), supple Respiratory: diminished breath sounds (at bases/B) Cardiovascular: regular rate and rhythm Gastrointestinal: non-tender, soft Musculoskeletal: muscle weakness (generalized) Neurological: other Results Result Diagram: 03/10/17 0746 03/10/1746 Results 24 hrs Laboratory Tests Test 03/10/17 07:46 White Blood Count 6.8 Red Blood Count 3.85 L Hemoglobin 10.6 L Hematocrit 32.6 L Mean Corpuscular Volume 84.7 Mean Corpuscular Hemoglobin 27.5 L Mean Corpuscular Hemoglobin Concent 32.5 Red Cell Distribution Width 17.2 H Platelet Count 350 Mean Platelet Volume 12.6 H Neutrophils % 68.5 Lymphocytes % 19.6 Monocytes % 6.2 Eosinophils % 4.1 Basophils % 1.2 Nucleated Red Blood Cells % 0.0 Neutrophils # (Manual) 4.7 Lymphocytes # 1.3 Monocytes # 0.4 Eosinophils # 0.3 Basophils # 0.1 Nucleated Red Blood Cells # 0.0 Sodium Level 139 Potassium Level 3.6 Chloride Level 103 Carbon Dioxide Level 26 Anion Gap 14 Blood Urea Nitrogen 22 H Creatinine 0.83 Glucose Level 131 Calcium Level 9.9 Medications Medications Current Medications Miscellaneous Information 1 ea NOTE XX ; Start 01/17/17 at 10:00 Glucose (Glutose) 15 gm Q15M PRN PO DECREASED GLUCOSE; Start 01/17/17 at 10:00 Glucose (Glutose) 22.5 gm Q15M PRN PO DECREASED GLUCOSE; Start 01/17/17 at 10: 00 Dextrose (D50w Syringe) 25 ml Q15M PRN IV DECREASED GLUCOSE; Start 01/17/17 at 10:00 Dextrose (D50w Syringe) 50 ml Q15M PRN IV DECREASED GLUCOSE; Start 01/17/17 at 10:00 Glucagon (Glucagen) 1 mg Q15M PRN IM DECREASED GLUCOSE; Start 01/17/17 at 10:00 Glucose (Glutose) 15 gm Q15M PRN BUCCAL DECREASED GLUCOSE; Start 01/17/17 at 10 :00 Collagenase (Santyl) 1 applic DAILY TOP Last administered on 03/07/17 08:05; Admin Dose 1 APPLIC; Start 01/17/17 at 21:00 IV Flush (NS 10 ml) 10 ml PRN PRN IV IV PROTOCOL Last administered on 21:45; Admin Dose 10 ML; Start 01/22/17 at 12:00 Miscellaneous Information (Pending Santyl Order For Wound Care) This patient dunaway... PRN PRN XX WOUND CARE; Start 01/24/17 at 07:30 Bisacodyl (Dulcolax Supp) 10 mg DAILY PRN [place] CONSTIPATION Last administered on 02/24/17 15:02; Admin Dose 10 MG; Start 01/25/17 at 16:30 Acetaminophen (Tylenol Liquid) 650 mg Q4H PRN NGT PAIN AND OR ELEVATED TEMP Last administered on 03/07/17 21:41; Admin Dose 650 MG; Start 01/26/17 at 09:00 Metoprolol Tartrate (Lopressor) 2.5 mg Q4H PRN IV HR > 110 Last administered on 02/23/17 03:58; Admin Dose 2.5 MG; Start 01/26/17 at 15:00 Midodrine (Proamatine) 5 mg Q8 PRN GTB BLOOD PRESSURE SUPPORT Last administered on 03/07/17 08:04; Admin Dose 5 MG; Start 01/28/17 at 16:30 Nystatin (Nystatin Powder) 1 applic BID TOP Last administered on 03/10/17 08:48 ; Admin Dose 1 APPLIC; Start 02/04/17 at 12:00 Eye Lubricant (Artificial Tears Oph) 2 drop Q6H PRN BOTH EYES DRY EYES Last administered on 03/09/17 21:32; Admin Dose 2 DROP; Start 02/13/17 at 15:30 Nystatin (Nystatin Susp) 5 ml QID GTB Last administered on 03/10/17 08:48; Admin Dose 5 ML; Start 02/18/17 at 08:00 Lansoprazole (Prevacid) 30 mg BID@18 GTB Last administered on 03/10/17 05:00 ; Admin Dose 30 MG; Start 02/18/17 at 18:00 Metoprolol Tartrate (Lopressor) 12.5 mg BID GTB Last administered on 03/10/17 08:49; Admin Dose 12.5 MG; Start 02/22/17 at 22:30 Apixaban (Eliquis) 5 mg BID GTB Last administered on 03/10/17 08:48; Admin Dose 5 MG; Start 02/22/17 at 22:00 MINOO REY Mar 10, 2017 09:53
--- NOTE | 2017-03-10 14:27 | PN ---
Date/Time of Note Date/Time of Note DATE: 03/10/17 TIME: 14:22 Assessment/Plan VTE Prophylaxis VTE Prophylaxis Intervention: other Lines/Catheters IV Catheter Type (from [facility]): PICC Line Central line still needed: Yes Urinary Cath still in place: Yes Reason Cath still needed: urinary retention Assessment/Plan Assessment/Plan - Urinary tract infection, continue antibiotics per ID. Dr. Abarca is following in an infection disease consultation. - Gastritis due to H. pylori, continue triple therapy per H. pylori eradication - Possible bleeding from G-tube and hematuria, resolved status post EGD was notion of gastritis, continue Protonix. - Bilateral thalamic infarctions. - Dysphagia, status post G-tube placement by Dr. Garcia. - Atrial fibrillation with rapid ventricular response. Dr. Armenta is following and cardiology consultation. Continue Eliquis. - Thrombosis of the bilateral cephalic veins. - Acute kidney injury, resolved. - History of CVA - History of hyperlipidemia dw dr Valdovinos/staff Subjective 24 Hr Interval Summary Free Text/Dictation afebrile, Respiratory: no complaints Cardiovascular: no complaints Gastrointestinal: no complaints Exam/Review of Systems Vital Signs Vitals Vital Signs Date Time Temp Pulse Resp B/P Pulse Ox O2 Delivery O2 Flow Rate FiO2 03/10/17 12:49 90/60 03/10/17 12:00 73 03/10/17 11:47 98.1 18 95 03/10/17 09:07 21 03/08/17 11:11 Room Air Intake and Output 03/09/17 03/09/17 03/10/17 15:00 23:00 07:00 Intake Total 1100 ml 1050 ml Output Total 500 ml 950 ml Balance 600 ml 100 ml Exam Constitutional: alert, well developed Respiratory: clear to auscultation Cardiovascular: nl pulses, other, regular rate and rhythm Gastrointestinal: non-tender, soft Extremities: normal pulses Neurological: confused Results Result Diagram: 03/10/17 0746 03/10/17 0746 Results 24 hrs Laboratory Tests Test 03/10/17 07:46 White Blood Count 6.8 Red Blood Count 3.85 L Hemoglobin 10.6 L Hematocrit 32.6 L Mean Corpuscular Volume 84.7 Mean Corpuscular Hemoglobin 27.5 L Mean Corpuscular Hemoglobin Concent 32.5 Red Cell Distribution Width 17.2 H Platelet Count 350 Mean Platelet Volume 12.6 H Neutrophils % 68.5 Lymphocytes % 19.6 Monocytes % 6.2 Eosinophils % 4.1 Basophils % 1.2 Nucleated Red Blood Cells % 0.0 Neutrophils # (Manual) 4.7 Lymphocytes # 1.3 Monocytes # 0.4 Eosinophils # 0.3 Basophils # 0.1 Nucleated Red Blood Cells # 0.0 Sodium Level 139 Potassium Level 3.6 Chloride Level 103 Carbon Dioxide Level 26 Anion Gap 14 Blood Urea Nitrogen 22 H Creatinine 0.83 Glucose Level 131 Calcium Level 9.9 Medications Medications Current Medications Miscellaneous Information 1 ea NOTE XX ; Start 01/17/17 at 10:00 Glucose (Glutose) 15 gm Q15M PRN PO DECREASED GLUCOSE; Start 01/17/17 at 10:00 Glucose (Glutose) 22.5 gm Q15M PRN PO DECREASED GLUCOSE; Start 01/17/17 at 10: 00 Dextrose (D50w Syringe) 25 ml Q15M PRN IV DECREASED GLUCOSE; Start 01/17/17 at 10:00 Dextrose (D50w Syringe) 50 ml Q15M PRN IV DECREASED GLUCOSE; Start 01/17/17 at 10:00 Glucagon (Glucagen) 1 mg Q15M PRN IM DECREASED GLUCOSE; Start 01/17/17 at 10:00 Glucose (Glutose) 15 gm Q15M PRN BUCCAL DECREASED GLUCOSE; Start 01/17/17 at 10 :00 Collagenase (Santyl) 1 applic DAILY TOP Last administered on 03/07/17 08:05; Admin Dose 1 APPLIC; Start 01/17/17 at 21:00 IV Flush (NS 10 ml) 10 ml PRN PRN IV IV PROTOCOL Last administered on 21:45; Admin Dose 10 ML; Start 01/22/17 at 12:00 Miscellaneous Information (Pending Santyl Order For Wound Care) This patient dunaway... PRN PRN XX WOUND CARE; Start 01/24/17 at 07:30 Bisacodyl (Dulcolax Supp) 10 mg DAILY PRN [place] CONSTIPATION Last administered on 02/24/17 15:02; Admin Dose 10 MG; Start 01/25/17 at 16:30 Acetaminophen (Tylenol Liquid) 650 mg Q4H PRN NGT PAIN AND OR ELEVATED TEMP Last administered on 03/07/17 21:41; Admin Dose 650 MG; Start 01/26/17 at 09:00 Metoprolol Tartrate (Lopressor) 2.5 mg Q4H PRN IV HR > 110 Last administered on 02/23/17 03:58; Admin Dose 2.5 MG; Start 01/26/17 at 15:00 Midodrine (Proamatine) 5 mg Q8 PRN GTB BLOOD PRESSURE SUPPORT Last administered on 03/07/17 08:04; Admin Dose 5 MG; Start 01/28/17 at 16:30 Nystatin (Nystatin Powder) 1 applic BID TOP Last administered on 03/10/17 08:48 ; Admin Dose 1 APPLIC; Start 02/04/17 at 12:00 Eye Lubricant (Artificial Tears Oph) 2 drop Q6H PRN BOTH EYES DRY EYES Last administered on 03/09/17 21:32; Admin Dose 2 DROP; Start 02/13/17 at 15:30 Nystatin (Nystatin Susp) 5 ml QID GTB Last administered on 03/10/17 12:42; Admin Dose 5 ML; Start 02/18/17 at 08:00 Lansoprazole (Prevacid) 30 mg BID@,18 GTB Last administered on 03/10/17 05:00 ; Admin Dose 30 MG; Start 02/18/17 at 18:00 Metoprolol Tartrate (Lopressor) 12.5 mg BID GTB Last administered on 03/10/17 08:49; Admin Dose 12.5 MG; Start 02/22/17 at 22:30 Apixaban (Eliquis) 5 mg BID GTB Last administered on 03/10/17 08:48; Admin Dose 5 MG; Start 02/22/17 at 22:00 ALEXIS NAJERA Mar 10, 2017 14:27
[2017-03-10] MEDS: ARTIFICIAL TEARS 15 ML OPH BOTH EYES PRN (20:35)
[2017-03-11] VITALS (11 sets, daily range): BP systolic 99–110; BP diastolic 56–78; PULSE 85–104; RESP 16–19
[2017-03-11] MEDS: LEVALBUTEROL (NEB) 0.63 MG/3 ML AMP HHN SCH ×4 (02:08→20:06)
[2017-03-11] MEDS: LANSOPRAZOLE 30 MG CAP GTB SCH ×2 (06:04→17:20)
[2017-03-11 07:07] LABS: ABNORMAL IP MESSAGE 1; BASOPHIL # 0.1 10^3/ul (0.0-0.1); BASOPHILS % 1.1 % (0.0-2.0); EOSINOPHILS # 0.3 10^3/ul (0.0-0.5); HEMATOCRIT 33.3 % (37.0-47.0); HEMOGLOBIN 10.7 g/dl (12.0-16.0); LYMPHOCYTES # 1.3 10^3/ul (0.8-2.9); LYMPHOCYTES % 17.4 % (15.0-51.0); MEAN CORPUSCULAR HEMOGLOBIN 27.3 pg (29.0-33.0); MEAN CORPUSCULAR HGB CONC 32.1 g/dl (32.0-37.0); MEAN CORPUSCULAR VOLUME 84.9 fl (82.0-101.0); MEAN PLATELET VOLUME 13.1 fl (7.4-10.4); MONOCYTE # 0.4 10^3/ul (0.3-0.9); MONOCYTES % 5.8 % (0.0-11.0); NEUTROPHILS % 71.2 % (39.0-77.0); PLATELET COUNT 362 10^3/UL (140-415); RED BLOOD COUNT 3.92 10^6/ul (4.20-5.40); RED CELL DISTRIBUTION WIDTH 17.1 % (11.5-14.5); WHITE BLOOD COUNT 7.5 10^3/ul (4.8-10.8)
[2017-03-11 07:31] LABS: CALCIUM 9.9 mg/dl (8.4-10.2); CREATININE 0.81 mg/dl (0.44-1.00); POTASSIUM 3.7 mmol/L (3.5-5.1)
[2017-03-11 07:45] LABS: POSITIVE DIFF @See below
[2017-03-11] MEDS: METOPROLOL 25 MG TAB GTB SCH ×2 (09:00→21:50)
[2017-03-11] MEDS: APIXABAN 5 MG TABLET GTB SCH ×2 (09:04→21:49)
[2017-03-11] MEDS: NYSTATIN 30 GM POWDER BTL TOP SCH ×2 (09:04→21:50)
[2017-03-11] MEDS: NYSTATIN SUSP 5 ML CUP GTB SCH ×4 (09:04→21:49)
[2017-03-11] MEDS: COLLAGENASE 30 GM TUBE TOP SCH (09:05)
--- NOTE | 2017-03-11 12:34 | CONS ---
Date/Time of Note Date/Time of Note DATE: 03/11/17 TIME: 12:32 Assessment/Plan Assessment/Plan Chief Complaint/Hosp Course IMP: 1. AF-mainly rate controlled/Trop negative x 3. Had pause x 3.7 seconds 01/30 on standing IVP BB. No recurrence since decrease in IVP BB. Low dose BB as tolerated 2.Hypotension-on midodrine 3.encephalopathy/ams-slowly improving 4.coagulopathy-now on eliquis 5. Acute Renal failure-Now resolved 6.Leukocytosis 7. Cardiomyopathy-EF 45% 8. Cephalic vein thrombosis 9. Dysphagia s/p PEG 10. H Pylori Recc: -Tele -serial ecg's -Cont. Eliquis -Continue low dose BB as tolerated only -Continue abx's -Follow MS closely which has had some significant improvement -Continue midodrine for low BP -Continue PPI -Dose IVP digoxin and then start PO digoxin to improve overall HR control given marginal BP -No definite indication for PPM at this time Problems: Consultation Date/Type/Reason Admit Date/Time Jan 16, 2017 at 15:19 Initial Consult Date 01/17/17 Type of Consultation: cardiology Reason for Consultation AF Referring Provider: LAWRENCE PICKERING Exam/Review of Systems Vital Signs Vitals Vital Signs Date Time Temp Pulse Resp B/P Pulse Ox O2 Delivery O2 Flow Rate FiO2 03/11/17 11:54 98.5 56 16 109/68 98 03/11/17 08:21 21 03/08/17 11:11 Room Air Intake and Output 03/10/17 03/10/17 03/11/17 15:00 23:00 07:00 Intake Total 1100 ml 800 ml Output Total 700 ml 750 ml Balance 400 ml 50 ml Exam Review of Systems: CONSTITUTIONAL: No fevers, chills. PULMONARY: No sob CARDIOVASCULAR: No chest pain/palpitations GASTROINTESTINAL: No nausea/vomiting. GENITOURINARY: No hematuria/dysuria. MUSCULOSKELETAL: No myagias/arthalgias. PSYCHIATRIC: The patient denies depression. NEUROLOGIC: encephalopathy improving Constitutional: other (awake, lethargic) Head: normocephalic ENMT: mucosa pink and moist Neck: jvd (9 cm water), supple Respiratory: diminished breath sounds (at bases/B) Cardiovascular: irregular rhythm (tachycardic) Gastrointestinal: non-tender, soft Musculoskeletal: muscle weakness (generalized) Extremities: edema (trace/B) Neurological: confused, lethargic Results Result Diagram: 03/11/1762003/11/1721 Results 24 hrs Laboratory Tests Test 03/11/17 06:21 White Blood Count 7.5 Red Blood Count 3.92 L Hemoglobin 10.7 L Hematocrit 33.3 L Mean Corpuscular Volume 84.9 Mean Corpuscular Hemoglobin 27.3 L Mean Corpuscular Hemoglobin Concent 32.1 Red Cell Distribution Width 17.1 H Platelet Count 362 Mean Platelet Volume 13.1 H Neutrophils % 71.2 Lymphocytes % 17.4 Monocytes % 5.8 Eosinophils % 4.0 Basophils % 1.1 Nucleated Red Blood Cells % 0.0 Neutrophils # (Manual) 5.4 Lymphocytes # 1.3 Monocytes # 0.4 Eosinophils # 0.3 Basophils # 0.1 Nucleated Red Blood Cells # 0.0 Sodium Level 141 Potassium Level 3.7 Chloride Level 106 Carbon Dioxide Level 25 Anion Gap 14 Blood Urea Nitrogen 24 H Creatinine 0.81 Glucose Level 112 Calcium Level 9.9 Medications Medications Current Medications Miscellaneous Information 1 ea NOTE XX ; Start 01/17/17 at 10:00 Glucose (Glutose) 15 gm Q15M PRN PO DECREASED GLUCOSE; Start 01/17/17 at 10:00 Glucose (Glutose) 22.5 gm Q15M PRN PO DECREASED GLUCOSE; Start 01/17/17 at 10: 00 Dextrose (D50w Syringe) 25 ml Q15M PRN IV DECREASED GLUCOSE; Start 01/17/17 at 10:00 Dextrose (D50w Syringe) 50 ml Q15M PRN IV DECREASED GLUCOSE; Start 01/17/17 at 10:00 Glucagon (Glucagen) 1 mg Q15M PRN IM DECREASED GLUCOSE; Start 01/17/17 at 10:00 Glucose (Glutose) 15 gm Q15M PRN BUCCAL DECREASED GLUCOSE; Start 01/17/17 at 10 :00 Collagenase (Santyl) 1 applic DAILY TOP Last administered on 03/11/17 09:05; Admin Dose 1 APPLIC; Start 01/17/17 at 21:00 IV Flush (NS 10 ml) 10 ml PRN PRN IV IV PROTOCOL Last administered on 21:45; Admin Dose 10 ML; Start 01/22/17 at 12:00 [facility]isc[facility] This patient dunaway... PRN PRN XX WOUND CARE; Start 01/24/17 at 07:30 Bisacodyl (Dulcolax Supp) [address] CONSTIPATION Last administered on 02/24/17 15:02; Admin Dose 10 MG; Start 01/25/17 at 16:30 Acetaminophen (Tylenol Liquid) 650 mg Q4H PRN NGT PAIN AND OR ELEVATED TEMP Last administered on 03/07/17 21:41; Admin Dose 650 MG; Start 01/26/17 at 09:00 Metoprolol Tartrate (Lopressor) 2.5 mg Q4H PRN IV HR > 110 Last administered on 02/23/17 03:58; Admin Dose 2.5 MG; Start 01/26/17 at 15:00 Midodrine (Proamatine) 5 mg Q8 PRN GTB BLOOD PRESSURE SUPPORT Last administered on 03/07/17 08:04; Admin Dose 5 MG; Start 01/28/17 at 16:30 Nystatin (Nystatin Powder) 1 applic BID TOP Last administered on 03/11/17 09:04 ; Admin Dose 1 APPLIC; Start 02/04/17 at 12:00 Eye Lubricant (Artificial Tears Oph) 2 drop Q6H PRN BOTH EYES DRY EYES Last administered on 03/10/17 20:35; Admin Dose 2 DROP; Start 02/13/17 at 15:30 Nystatin (Nystatin Susp) 5 ml QID GTB Last administered on 03/11/17 09:04; Admin Dose 5 ML; Start 02/18/17 at 08:00 Lansoprazole (Prevacid) 30 mg BID@06,18 GTB Last administered on 03/11/17 06:04 ; Admin Dose 30 MG; Start 02/18/17 at 18:00 Metoprolol Tartrate (Lopressor) 12.5 mg BID GTB Last administered on 03/10/17 20:33; Admin Dose 12.5 MG; Start 02/22/17 at 22:30 Apixaban (Eliquis) 5 mg BID GTB Last administered on 03/11/17 09:04; Admin Dose 5 MG; Start 02/22/17 at 22:00 MINOO REY Mar 11, 2017 12:34
[2017-03-11] MEDS ORDERED: DIGOXIN 500 MCG INJ IV ONE (13:00)
[2017-03-11] MEDS: ACETAMINOPHEN 650MG/20.3ML CUP NGT PRN (15:57)
[2017-03-11] MEDS: ARTIFICIAL TEARS 15 ML OPH BOTH EYES PRN (16:03)
--- NOTE | 2017-03-11 17:52 | PN ---
Date/Time of Note Date/Time of Note DATE: 03/11/17 TIME: 17:51 Assessment/Plan VTE Prophylaxis VTE Prophylaxis Intervention: other Lines/Catheters IV Catheter Type (from [facility]): PICC Line Central line still needed: Yes Urinary Cath still in place: Yes Reason Cath still needed: urinary retention Assessment/Plan Assessment/Plan - Urinary tract infection, continue antibiotics per ID. Dr. Abarca is following in an infection disease consultation. - Gastritis due to H. pylori, continue triple therapy per H. pylori eradication - Possible bleeding from G-tube and hematuria, resolved status post EGD was notion of gastritis, continue Protonix. - Bilateral thalamic infarctions. - Dysphagia, status post G-tube placement by Dr. Garcia. - Atrial fibrillation with rapid ventricular response. Dr. Armenta is following and cardiology consultation. Continue Eliquis. - Thrombosis of the bilateral cephalic veins. - Acute kidney injury, resolved. - History of CVA - History of hyperlipidemia dw dr Valdovinos/staff Subjective 24 Hr Interval Summary Free Text/Dictation ON pureed diet- for oral gratification. tolerates PT. dw staff Exam/Review of Systems Vital Signs Vitals Vital Signs Date Time Temp Pulse Resp B/P Pulse Ox O2 Delivery O2 Flow Rate FiO2 03/11/17 16:44 89 03/11/17 15:14 98.1 16 105/78 96 03/11/17 14:08 21 03/08/17 11:11 Room Air Intake and Output 03/10/17 03/10/17 03/11/17 15:00 23:00 07:00 Intake Total 1100 ml 800 ml Output Total 700 ml 750 ml Balance 400 ml 50 ml Exam Constitutional: alert, well developed Psych: nl mood/affect Respiratory: clear to auscultation, normal air movement Cardiovascular: nl pulses, regular rate and rhythm Gastrointestinal: non-tender, soft Musculoskeletal: muscle weakness Results Result Diagram: 03/11/1721 03/11/17 0621 Results 24 hrs Laboratory Tests Test 03/11/17 06:21 White Blood Count 7.5 Red Blood Count 3.92 L Hemoglobin 10.7 L Hematocrit 33.3 L Mean Corpuscular Volume 84.9 Mean Corpuscular Hemoglobin 27.3 L Mean Corpuscular Hemoglobin Concent 32.1 Red Cell Distribution Width 17.1 H Platelet Count 362 Mean Platelet Volume 13.1 H Neutrophils % 71.2 Lymphocytes % 17.4 Monocytes % 5.8 Eosinophils % 4.0 Basophils % 1.1 Nucleated Red Blood Cells % 0.0 Neutrophils # (Manual) 5.4 Lymphocytes # 1.3 Monocytes # 0.4 Eosinophils # 0.3 Basophils # 0.1 Nucleated Red Blood Cells # 0.0 Sodium Level 141 Potassium Level 3.7 Chloride Level 106 Carbon Dioxide Level 25 Anion Gap 14 Blood Urea Nitrogen 24 H Creatinine 0.81 Glucose Level 112 Calcium Level 9.9 Medications Medications Current Medications Miscellaneous Information 1 ea NOTE XX ; Start 01/17/17 at 10:00 Glucose (Glutose) 15 gm Q15M PRN PO DECREASED GLUCOSE; Start 01/17/17 at 10:00 Glucose (Glutose) 22.5 gm Q15M PRN PO DECREASED GLUCOSE; Start 01/17/17 at 10: 00 Dextrose (D50w Syringe) 25 ml Q15M PRN IV DECREASED GLUCOSE; Start 01/17/17 at 10:00 Dextrose (D50w Syringe) 50 ml Q15M PRN IV DECREASED GLUCOSE; Start 01/17/17 at 10:00 Glucagon (Glucagen) 1 mg Q15M PRN IM DECREASED GLUCOSE; Start 01/17/17 at 10:00 Glucose (Glutose) 15 gm Q15M PRN BUCCAL DECREASED GLUCOSE; Start 01/17/17 at 10 :00 Collagenase (Santyl) 1 applic DAILY TOP Last administered on 03/11/17 09:05; Admin Dose 1 APPLIC; Start 01/17/17 at 21:00 IV Flush (NS 10 ml) 10 ml PRN PRN IV IV PROTOCOL Last administered on 21:45; Admin Dose 10 ML; Start 01/22/17 at 12:00 Miscellaneous Information (Pending Santyl Order For Wound Care) This patient dunaway... PRN PRN XX WOUND CARE; Start 01/24/17 at 07:30 Bisacodyl (Dulcolax Supp) 10 mg DAILY PRN [place] CONSTIPATION Last administered on 02/24/17 15:02; Admin Dose 10 MG; Start 01/25/17 at 16:30 Acetaminophen (Tylenol Liquid) 650 mg Q4H PRN NGT PAIN AND OR ELEVATED TEMP Last administered on 03/11/17 15:57; Admin Dose 650 MG; Start 01/26/17 at 09:00 Metoprolol Tartrate (Lopressor) 2.5 mg Q4H PRN IV HR > 110 Last administered on 02/23/17 03:58; Admin Dose 2.5 MG; Start 01/26/17 at 15:00 Midodrine (Proamatine) 5 mg Q8 PRN GTB BLOOD PRESSURE SUPPORT Last administered on 03/07/17 08:04; Admin Dose 5 MG; Start 01/28/17 at 16:30 Nystatin (Nystatin Powder) 1 applic BID TOP Last administered on 03/11/17 09:04 ; Admin Dose 1 APPLIC; Start 02/04/17 at 12:00 Eye Lubricant (Artificial Tears Oph) 2 drop Q6H PRN BOTH EYES DRY EYES Last administered on 03/11/17 16:03; Admin Dose 2 DROP; Start 02/13/17 at 15:30 Nystatin (Nystatin Susp) 5 ml QID GTB Last administered on 03/11/17 16:03; Admin Dose 5 ML; Start 02/18/17 at 08:00 Lansoprazole (Prevacid) 30 mg BID@06,18 GTB Last administered on 03/11/17 17:20 ; Admin Dose 30 MG; Start 02/18/17 at 18:00 Metoprolol Tartrate (Lopressor) 12.5 mg BID GTB Last administered on 03/10/17 20:33; Admin Dose 12.5 MG; Start 02/22/17 at 22:30 Apixaban (Eliquis) 5 mg BID GTB Last administered on 03/11/17 09:04; Admin Dose 5 MG; Start 02/22/17 at 22:00 Digoxin (Digoxin) 0.125 mg DAILY@13 PO ; Start 03/12/17 at 13:00 ALEXIS NAJERA Mar 11, 2017 17:52
[2017-03-12] VITALS (13 sets, daily range): BP systolic 100–170; BP diastolic 65–75; PULSE 77–93; RESP 17–19
[2017-03-12] MEDS: LEVALBUTEROL (NEB) 0.63 MG/3 ML AMP HHN SCH ×4 (01:32→20:56)
[2017-03-12] MEDS: LANSOPRAZOLE 30 MG CAP GTB SCH ×2 (06:11→17:29)
[2017-03-12 07:17] LABS: ABNORMAL IP MESSAGE 1; BASOPHIL # 0.1 10^3/ul (0.0-0.1); BASOPHILS % 1.1 % (0.0-2.0); EOSINOPHILS # 0.3 10^3/ul (0.0-0.5); EOSINOPHILS % 4.1 % (0.0-7.0); HEMATOCRIT 34.5 % (37.0-47.0); HEMOGLOBIN 10.9 g/dl (12.0-16.0); LYMPHOCYTES # 1.2 10^3/ul (0.8-2.9); LYMPHOCYTES % 17.2 % (15.0-51.0); MEAN CORPUSCULAR HEMOGLOBIN 26.8 pg (29.0-33.0); MEAN CORPUSCULAR HGB CONC 31.6 g/dl (32.0-37.0); MEAN PLATELET VOLUME 13.2 fl (7.4-10.4); MONOCYTE # 0.5 10^3/ul (0.3-0.9); MONOCYTES % 6.3 % (0.0-11.0); NEUTROPHILS % 70.9 % (39.0-77.0); PLATELET COUNT 360 10^3/UL (140-415); RED BLOOD COUNT 4.06 10^6/ul (4.20-5.40); RED CELL DISTRIBUTION WIDTH 17.1 % (11.5-14.5); WHITE BLOOD COUNT 7.1 10^3/ul (4.8-10.8)
[2017-03-12 07:23] LABS: POSITIVE DIFF @See below
[2017-03-12 08:11] LABS: CALCIUM 9.8 mg/dl (8.4-10.2); CREATININE 0.79 mg/dl (0.44-1.00)
[2017-03-12] MEDS: NYSTATIN SUSP 5 ML CUP GTB SCH ×4 (09:00→20:53)
[2017-03-12] MEDS: NYSTATIN 30 GM POWDER BTL TOP SCH ×2 (09:23→20:54)
[2017-03-12] MEDS: METOPROLOL 25 MG TAB GTB SCH (09:23)
[2017-03-12] MEDS: APIXABAN 5 MG TABLET GTB SCH ×2 (09:24→20:55)
[2017-03-12] MEDS: COLLAGENASE 30 GM TUBE TOP SCH (09:27)
[2017-03-12] MEDS: DIGOXIN 0.125 MG TAB PO SCH (13:21)
--- NOTE | 2017-03-12 14:25 | CONS ---
Date/Time of Note Date/Time of Note DATE: 03/12/17 TIME: 14:23 Assessment/Plan Assessment/Plan Chief Complaint/Hosp Course IMP: 1. AF-mainly rate controlled/Trop negative x 3. Had pause x 3.7 seconds 01/30 on standing IVP BB. No recurrence since decrease in IVP BB. Low dose BB as tolerated 2.Hypotension-on midodrine 3.encephalopathy/ams-slowly improving 4.coagulopathy-now on eliquis 5. Acute Renal failure-Now resolved 6.Leukocytosis 7. Cardiomyopathy-EF 45% 8. Cephalic vein thrombosis 9. Dysphagia s/p PEG 10. H Pylori Recc: -Tele -serial ecg's -Cont. Eliquis -Continue low dose BB as tolerated only -Continue abx's -Follow MS closely which has had some significant improvement -Continue midodrine for low BP -Continue PPI -Continue now PO digoxin to improve overall HR control given marginal BP -No definite indication for PPM at this time Problems: Consultation Date/Type/Reason Admit Date/Time Jan 16, 2017 at 15:19 Initial Consult Date 01/17/17 Type of Consultation: cardiology Reason for Consultation AF Referring Provider: LAWRENCE PICKERING Exam/Review of Systems Vital Signs Vitals Vital Signs Date Time Temp Pulse Resp B/P Pulse Ox O2 Delivery O2 Flow Rate FiO2 03/12/17 12:24 92 03/12/17 11:23 98.1 18 128/75 95 03/11/17 20:07 21 03/08/17 11:11 Room Air Intake and Output 03/11/17 03/11/17 03/12/17 15:00 23:00 07:00 Intake Total 1050 ml 1060 ml Output Total 1000 ml 800 ml Balance 50 ml 260 ml Exam Review of Systems: CONSTITUTIONAL: No fevers, chills. PULMONARY: No sob CARDIOVASCULAR: No chest pain/palpitations GASTROINTESTINAL: No nausea/vomiting. GENITOURINARY: No hematuria/dysuria. MUSCULOSKELETAL: No myagias/arthalgias. PSYCHIATRIC: The patient denies depression. NEUROLOGIC: encephalopathic Constitutional: alert Psych: no complaints Head: normocephalic ENMT: mucosa pink and moist Neck: jvd (9 cm water), supple Respiratory: diminished breath sounds Cardiovascular: regular rate and rhythm Gastrointestinal: non-tender, soft Musculoskeletal: muscle tone (normal) Extremities: other (No focal deficits) Results Result Diagram: 03/12/17 0618 03/12/17 0618 Results 24 hrs Laboratory Tests Test 03/12/17 06:18 White Blood Count 7.1 Red Blood Count 4.06 L Hemoglobin 10.9 L Hematocrit 34.5 L Mean Corpuscular Volume 85.0 Mean Corpuscular Hemoglobin 26.8 L Mean Corpuscular Hemoglobin Concent 31.6 L Red Cell Distribution Width 17.1 H Platelet Count 360 Mean Platelet Volume 13.2 H Neutrophils % 70.9 Lymphocytes % 17.2 Monocytes % 6.3 Eosinophils % 4.1 Basophils % 1.1 Nucleated Red Blood Cells % 0.0 Neutrophils # (Manual) 5.0 Lymphocytes # 1.2 Monocytes # 0.5 Eosinophils # 0.3 Basophils # 0.1 Nucleated Red Blood Cells # 0.0 Sodium Level 142 Potassium Level 4.0 Chloride Level 106 Carbon Dioxide Level 26 Anion Gap 14 Blood Urea Nitrogen 23 H Creatinine 0.79 Glucose Level 114 Calcium Level 9.8 Medications Medications Current Medications Miscellaneous Information 1 ea NOTE XX ; Start 01/17/17 at 10:00 Glucose (Glutose) 15 gm Q15M PRN PO DECREASED GLUCOSE; Start 01/17/17 at 10:00 Glucose (Glutose) 22.5 gm Q15M PRN PO DECREASED GLUCOSE; Start 01/17/17 at 10: 00 Dextrose (D50w Syringe) 25 ml Q15M PRN IV DECREASED GLUCOSE; Start 01/17/17 at 10:00 Dextrose (D50w Syringe) 50 ml Q15M PRN IV DECREASED GLUCOSE; Start 01/17/17 at 10:00 Glucagon (Glucagen) 1 mg Q15M PRN IM DECREASED GLUCOSE; Start 01/17/17 at 10:00 Glucose (Glutose) 15 gm Q15M PRN BUCCAL DECREASED GLUCOSE; Start 01/17/17 at 10 :00 Collagenase (Santyl) 1 applic DAILY TOP Last administered on 03/12/17 09:27; Admin Dose 1 APPLIC; Start 01/17/17 at 21:00 IV Flush (NS 10 ml) 10 ml PRN PRN IV IV PROTOCOL Last administered on 21:45; Admin Dose 10 ML; Start 01/22/17 at 12:00 Miscellaneous Information (Pending Santyl Order For Wound Care) This patient dunaway... PRN PRN XX WOUND CARE; Start 01/24/17 at 07:30 Bisacodyl (Dulcolax Supp) 10 mg DAILY PRN [place] CONSTIPATION Last administered on 02/24/17 15:02; Admin Dose 10 MG; Start 01/25/17 at 16:30 Acetaminophen (Tylenol Liquid) 650 mg Q4H PRN NGT PAIN AND OR ELEVATED TEMP Last administered on 03/11/17 15:57; Admin Dose 650 MG; Start 01/26/17 at 09:00 Metoprolol Tartrate (Lopressor) 2.5 mg Q4H PRN IV HR > 110 Last administered on 02/23/17 03:58; Admin Dose 2.5 MG; Start 01/26/17 at 15:00 Midodrine (Proamatine) 5 mg Q8 PRN GTB BLOOD PRESSURE SUPPORT Last administered on 03/07/17 08:04; Admin Dose 5 MG; Start 01/28/17 at 16:30 Nystatin (Nystatin Powder) 1 applic BID TOP Last administered on 03/12/17 09:23 ; Admin Dose 1 APPLIC; Start 02/04/17 at 12:00 Eye Lubricant (Artificial Tears Oph) 2 drop Q6H PRN BOTH EYES DRY EYES Last administered on 03/11/17 16:03; Admin Dose 2 DROP; Start 02/13/17 at 15:30 Nystatin (Nystatin Susp) 5 ml QID GTB Last administered on 03/12/17 13:21; Admin Dose 5 ML; Start 02/18/17 at 08:00 Lansoprazole (Prevacid) 30 mg BID@06,18 GTB Last administered on 03/12/17 06:11 ; Admin Dose 30 MG; Start 02/18/17 at 18:00 Metoprolol Tartrate (Lopressor) 12.5 mg BID GTB Last administered on 03/12/17 09:23; Admin Dose 12.5 MG; Start 02/22/17 at 22:30 Apixaban (Eliquis) 5 mg BID GTB Last administered on 03/12/17 09:24; Admin Dose 5 MG; Start 02/22/17 at 22:00 Digoxin (Digoxin) 0.125 mg DAILY@13 PO Last administered on 9/8/17at 13:21; Admin Dose 0.125 MG; Start 03/12/17 at 13:00 MINOO REY Mar 12, 2017 14:25
[2017-03-12] MEDS: ARTIFICIAL TEARS 15 ML OPH BOTH EYES PRN ×2 (17:06→20:54)
--- NOTE | 2017-03-12 18:30 | PN ---
Date/Time of Note Date/Time of Note DATE: 03/12/17 TIME: 18:30 Assessment/Plan VTE Prophylaxis VTE Prophylaxis Intervention: other Lines/Catheters IV [facility] PICC Line Central line still needed: Yes Urinary Cath still in place: Yes Reason Cath still needed: urinary retention Assessment/Plan Assessment/Plan - Urinary tract infection, continue antibiotics per ID. Dr. Abarca is following in an infection disease consultation. - Gastritis due to H. pylori, continue triple therapy per H. pylori eradication - Possible bleeding from G-tube and hematuria, resolved status post EGD was notion of gastritis, continue Protonix. - Bilateral thalamic infarctions. - Dysphagia, status post G-tube placement by Dr. Garcia. - Atrial fibrillation with rapid ventricular response. Dr. Armenta is following and cardiology consultation. Continue Eliquis. - Thrombosis of the bilateral cephalic veins. - Acute kidney injury, resolved. - History of CVA - History of hyperlipidemia dw dr Valdovinos/staff Subjective 24 Hr Interval Summary Free Text/Dictation wbc normal today, afebrile, responsive, family is at bed side- all Qs answered Constitutional: requiring IVF Respiratory: no complaints Cardiovascular: no complaints Gastrointestinal: no complaints Exam/Review of Systems Vital Signs Vitals Vital Signs Date Time Temp Pulse Resp B/P Pulse Ox O2 Delivery O2 Flow Rate FiO2 03/12/17 16:57 77 03/12/17 15:33 98.1 18 134/67 96 03/12/17 14:10 21 03/08/17 11:11 Room Air Intake and Output 03/11/17 03/11/17 03/12/17 15:00 23:00 07:00 Intake Total 1050 ml 1060 ml Output Total 1000 ml 800 ml Balance 50 ml 260 ml Exam Constitutional: alert, oriented (alert, responsive,oriented to name only), well developed Respiratory: clear to auscultation, normal air movement Cardiovascular: nl pulses Gastrointestinal: non-tender, soft Musculoskeletal: nl extremities to inspection Neurological: nl speech Results Result Diagram: 03/12/1718 03/12/17 0618 Results 24 hrs Laboratory Tests Test 03/12/17 06:18 White Blood Count 7.1 Red Blood Count 4.06 L Hemoglobin 10.9 L Hematocrit 34.5 L Mean Corpuscular Volume 85.0 Mean Corpuscular Hemoglobin 26.8 L Mean Corpuscular Hemoglobin Concent 31.6 L Red Cell Distribution Width 17.1 H Platelet Count 360 Mean Platelet Volume 13.2 H Neutrophils % 70.9 Lymphocytes % 17.2 Monocytes % 6.3 Eosinophils % 4.1 Basophils % 1.1 Nucleated Red Blood Cells % 0.0 Neutrophils # (Manual) 5.0 Lymphocytes # 1.2 Monocytes # 0.5 Eosinophils # 0.3 Basophils # 0.1 Nucleated Red Blood Cells # 0.0 Sodium Level 142 Potassium Level 4.0 Chloride Level 106 Carbon Dioxide Level 26 Anion Gap 14 Blood Urea Nitrogen 23 H Creatinine 0.79 Glucose Level 114 Calcium Level 9.8 Medications Medications Current Medications Miscellaneous Information 1 ea NOTE XX ; Start 01/17/17 at 10:00 Glucose (Glutose) 15 gm Q15M PRN PO DECREASED GLUCOSE; Start 01/17/17 at 10:00 Glucose (Glutose) 22.5 gm Q15M PRN PO DECREASED GLUCOSE; Start 01/17/17 at 10: 00 Dextrose (D50w Syringe) 25 ml Q15M PRN IV DECREASED GLUCOSE; Start 01/17/17 at 10:00 Dextrose (D50w Syringe) 50 ml Q15M PRN IV DECREASED GLUCOSE; Start 01/17/17 at 10:00 Glucagon (Glucagen) 1 mg Q15M PRN IM DECREASED GLUCOSE; Start 01/17/17 at 10:00 Glucose (Glutose) 15 gm Q15M PRN BUCCAL DECREASED GLUCOSE; Start 01/17/17 at 10 :00 Collagenase (Santyl) 1 applic DAILY TOP Last administered on 03/12/17 09:27; Admin Dose 1 APPLIC; Start 01/17/17 at 21:00 IV Flush (NS 10 ml) 10 ml PRN PRN IV IV PROTOCOL Last administered on 21:45; Admin Dose 10 ML; Start 01/22/17 at 12:00 Miscellaneous Information (Pending Santyl Order For Wound Care) This patient dunaway... PRN PRN XX WOUND CARE; Start 01/24/17 at 07:30 Bisacodyl (Dulcolax Supp) 10 mg DAILY PRN [place] CONSTIPATION Last administered on 02/24/17 15:02; Admin Dose 10 MG; Start 01/25/17 at 16:30 Acetaminophen (Tylenol Liquid) 650 mg Q4H PRN NGT PAIN AND OR ELEVATED TEMP Last administered on 03/11/17 15:57; Admin Dose 650 MG; Start 01/26/17 at 09:00 Metoprolol Tartrate (Lopressor) 2.5 mg Q4H PRN IV HR > 110 Last administered on 02/23/17 03:58; Admin Dose 2.5 MG; Start 01/26/17 at 15:00 Midodrine (Proamatine) 5 mg Q8 PRN GTB BLOOD PRESSURE SUPPORT Last administered on 03/07/17 08:04; Admin Dose 5 MG; Start 01/28/17 at 16:30 Nystatin (Nystatin Powder) 1 applic BID TOP Last administered on 03/12/17 09:23 ; Admin Dose 1 APPLIC; Start 02/04/17 at 12:00 Eye Lubricant (Artificial Tears Oph) 2 drop Q6H PRN BOTH EYES DRY EYES Last administered on 03/12/17 17:06; Admin Dose 2 DROP; Start 02/13/17 at 15:30 Nystatin (Nystatin Susp) 5 ml QID GTB Last administered on 03/12/17 17:29; Admin Dose 5 ML; Start 02/18/17 at 08:00 Lansoprazole (Prevacid) 30 mg BID@06,18 GTB Last administered on 03/12/17 17:29 ; Admin Dose 30 MG; Start 02/18/17 at 18:00 Apixaban (Eliquis) 5 mg BID GTB Last administered on 03/12/17 09:24; Admin Dose 5 MG; Start 02/22/17 at 22:00 Digoxin (Digoxin) 0.125 mg DAILY@13 PO Last administered on 03/12/17 13:21; Admin Dose 0.125 MG; Start 03/12/17 at 13:00 Atenolol (Tenormin) 12.5 mg BID PO ; Start 03/12/17 at 21:00 ALEXIS NAJERA Mar 12, 2017 18:30
[2017-03-12] MEDS: ATENOLOL 25 MG TAB PO SCH (20:54)
[2017-03-13] VITALS (12 sets, daily range): BP systolic 102–132; BP diastolic 51–62; PULSE 57–77; RESP 19
[2017-03-13] MEDS: LEVALBUTEROL (NEB) 0.63 MG/3 ML AMP HHN SCH ×4 (01:44→19:22)
[2017-03-13] MEDS: LANSOPRAZOLE 30 MG CAP GTB SCH ×2 (06:32→17:30)
[2017-03-13 07:11] LABS: BASOPHIL # 0.1 10^3/ul (0.0-0.1); BASOPHILS % 1.3 % (0.0-2.0); EOSINOPHILS # 0.3 10^3/ul (0.0-0.5); EOSINOPHILS % 3.7 % (0.0-7.0); HEMATOCRIT 35.1 % (37.0-47.0); HEMOGLOBIN 10.8 g/dl (12.0-16.0); LYMPHOCYTES # 1.3 10^3/ul (0.8-2.9); LYMPHOCYTES % 17.4 % (15.0-51.0); MEAN CORPUSCULAR HEMOGLOBIN 26.3 pg (29.0-33.0); MEAN CORPUSCULAR HGB CONC 30.8 g/dl (32.0-37.0); MEAN CORPUSCULAR VOLUME 85.6 fl (82.0-101.0); MEAN PLATELET VOLUME 12.8 fl (7.4-10.4); MONOCYTE # 0.5 10^3/ul (0.3-0.9); MONOCYTES % 6.1 % (0.0-11.0); PLATELET COUNT 346 10^3/UL (140-415); WHITE BLOOD COUNT 7.5 10^3/ul (4.8-10.8)
[2017-03-13 07:43] LABS: CALCIUM 10.1 mg/dl (8.4-10.2); CREATININE 0.83 mg/dl (0.44-1.00); POTASSIUM 3.8 mmol/L (3.5-5.1)
[2017-03-13] MEDS: NYSTATIN SUSP 5 ML CUP GTB SCH ×4 (09:00→20:51)
[2017-03-13] MEDS: NYSTATIN 30 GM POWDER BTL TOP SCH ×2 (09:49→20:52)
[2017-03-13] MEDS: COLLAGENASE 30 GM TUBE TOP SCH (09:50)
[2017-03-13] MEDS: APIXABAN 5 MG TABLET GTB SCH ×2 (09:50→20:51)
[2017-03-13] MEDS: ATENOLOL 25 MG TAB PO SCH ×2 (09:50→20:51)
[2017-03-13] MEDS: DIGOXIN 0.125 MG TAB PO SCH (13:47)
[2017-03-13] MEDS: ARTIFICIAL TEARS 15 ML OPH BOTH EYES PRN (13:47)
--- NOTE | 2017-03-13 16:41 | CONS ---
Date/Time of Note Date/Time of Note DATE: 03/13/17 TIME: 16:38 Assessment/Plan Assessment/Plan Additional Assessment/Plan Atrial fibrillation Cardiomyopathy with EF 45% Cephalic vein thrombosis H Pylorei Gastritis Dysphagia s/p PEG Clinically and hemodynamically stable Continue Atenolol Continue Digoxin Continue Eliquis Continue Prevacid Consultation Date/Type/Reason Admit Date/Time Jan 16, 2017 at 15:19 Constitutional: no complaints ENT: no complaints Respiratory: no complaints Cardiovascular: no complaints Gastrointestinal: no complaints Genitourinary: no complaints Musculoskeletal: no complaints Psychological: no complaints Social History Smoking Status: Unknown if ever smoked Exam/Review of Systems Vital Signs Vitals Vital Signs Date Time Temp Pulse Resp B/P Pulse Ox O2 Delivery O2 Flow Rate FiO2 03/13/17 16:00 73 03/13/17 15:24 98.0 19 108/55 96 03/13/17 14:42 21 03/13/17 14:40 Nasal Cannula Intake and Output 03/12/17 03/12/17 03/13/17 15:00 23:00 07:00 Intake Total 1800 ml 1110 ml Output Total 750 ml 1000 ml Balance 1050 ml 110 ml Exam Constitutional: alert Head: atraumatic, normocephalic Neck: non-tender, supple Respiratory: clear to auscultation Cardiovascular: irregular rhythm Gastrointestinal: nl liver, spleen, non-tender, soft Extremities: normal pulses Results Result Diagram: 03/13/17 0630 03/13/17 0630 Results 24 hrs Laboratory Tests Test 03/13/17 06:30 White Blood Count 7.5 Red Blood Count 4.10 L Hemoglobin 10.8 L Hematocrit 35.1 L Mean Corpuscular Volume 85.6 Mean Corpuscular Hemoglobin 26.3 L Mean Corpuscular Hemoglobin Concent 30.8 L Red Cell Distribution Width 17.0 H Platelet Count 346 Mean Platelet Volume 12.8 H Neutrophils % 71.0 Lymphocytes % 17.4 Monocytes % 6.1 Eosinophils % 3.7 Basophils % 1.3 Nucleated Red Blood Cells % 0.0 Neutrophils # (Manual) 5.3 Lymphocytes # 1.3 Monocytes # 0.5 Eosinophils # 0.3 Basophils # 0.1 Nucleated Red Blood Cells # 0.0 Sodium Level 141 Potassium Level 3.8 Chloride Level 106 Carbon Dioxide Level 25 Anion Gap 14 Blood Urea Nitrogen 23 H Creatinine 0.83 Glucose Level 117 Calcium Level 10.1 Medications Medications Current Medications Miscellaneous Information 1 ea NOTE XX ; Start 01/17/17 at 10:00 Glucose (Glutose) 15 gm Q15M PRN PO DECREASED GLUCOSE; Start 01/17/17 at 10:00 Glucose (Glutose) 22.5 gm Q15M PRN PO DECREASED GLUCOSE; Start 01/17/17 at 10: 00 Dextrose (D50w Syringe) 25 ml Q15M PRN IV DECREASED GLUCOSE; Start 01/17/17 at 10:00 Dextrose (D50w Syringe) 50 ml Q15M PRN IV DECREASED GLUCOSE; Start 01/17/17 at 10:00 Glucagon (Glucagen) 1 mg Q15M PRN IM DECREASED GLUCOSE; Start 01/17/17 at 10:00 Glucose (Glutose) 15 gm Q15M PRN BUCCAL DECREASED GLUCOSE; Start 01/17/17 at 10 :00 Collagenase (Santyl) 1 applic DAILY TOP Last administered on 03/13/17 09:50; Admin Dose 1 APPLIC; Start 01/17/17 at 21:00 IV Flush (NS 10 ml) 10 ml PRN PRN IV IV PROTOCOL Last administered on 21:45; Admin Dose 10 ML; Start 01/22/17 at 12:00 Miscellaneous Information (Pending Santyl Order For Wound Care) This patient dunaway... PRN PRN XX WOUND CARE; Start 01/24/17 at 07:30 Bisacodyl (Dulcolax Supp) 10 mg DAILY PRN [place] CONSTIPATION Last administered on 02/24/17 15:02; Admin Dose 10 MG; Start 01/25/17 at 16:30 Acetaminophen (Tylenol Liquid) 650 mg Q4H PRN NGT PAIN AND OR ELEVATED TEMP Last administered on 03/11/17 15:57; Admin Dose 650 MG; Start 01/26/17 at 09:00 Metoprolol Tartrate (Lopressor) 2.5 mg Q4H PRN IV HR > 110 Last administered on 02/23/17 03:58; Admin Dose 2.5 MG; Start 01/26/17 at 15:00 Midodrine (Proamatine) 5 mg Q8 PRN GTB BLOOD PRESSURE SUPPORT Last administered on 03/07/17 08:04; Admin Dose 5 MG; Start 01/28/17 at 16:30 Nystatin (Nystatin Powder) 1 applic BID TOP Last administered on 03/13/17 09:49 ; Admin Dose 1 APPLIC; Start 02/04/17 at 12:00 Eye Lubricant (Artificial Tears Oph) 2 drop Q6H PRN BOTH EYES DRY EYES Last administered on 03/13/17 13:47; Admin Dose 2 DROP; Start 02/13/17 at 15:30 Nystatin (Nystatin Susp) 5 ml QID GTB Last administered on 03/13/17 13:46; Admin Dose 5 ML; Start 02/18/17 at 08:00 Lansoprazole (Prevacid) 30 mg BID@06,18 GTB Last administered on 03/13/17 06:32 ; Admin Dose 30 MG; Start 02/18/17 at 18:00 Apixaban (Eliquis) 5 mg BID GTB Last administered on 03/13/17 09:50; Admin Dose 5 MG; Start 02/22/17 at 22:00 Digoxin (Digoxin) 0.125 mg DAILY@13 PO Last administered on 03/13/17 13:47; Admin Dose 0.125 MG; Start 03/12/17 at 13:00 Atenolol (Tenormin) 12.5 mg BID PO Last administered on 03/13/17 09:50; Admin Dose 12.5 MG; Start 03/12/17 at 21:00 JOSEFA WEINSTEIN M.D. Mar 13, 2017 16:41
[2017-03-14] VITALS (11 sets, daily range): BP systolic 94–136; BP diastolic 51–78; PULSE 62–89; RESP 16–20
[2017-03-14] MEDS: LEVALBUTEROL (NEB) 0.63 MG/3 ML AMP HHN SCH ×4 (01:25→20:16)
[2017-03-14] MEDS: LANSOPRAZOLE 30 MG CAP GTB SCH ×2 (06:11→17:04)
[2017-03-14 09:56] LABS: BASOPHIL # 0.1 10^3/ul (0.0-0.1); BASOPHILS % 1.2 % (0.0-2.0); EOSINOPHILS # 0.3 10^3/ul (0.0-0.5); EOSINOPHILS % 3.9 % (0.0-7.0); HEMATOCRIT 34.7 % (37.0-47.0); HEMOGLOBIN 10.8 g/dl (12.0-16.0); LYMPHOCYTES # 1.7 10^3/ul (0.8-2.9); LYMPHOCYTES % 20.4 % (15.0-51.0); MEAN CORPUSCULAR HEMOGLOBIN 26.7 pg (29.0-33.0); MEAN CORPUSCULAR HGB CONC 31.1 g/dl (32.0-37.0); MEAN CORPUSCULAR VOLUME 85.7 fl (82.0-101.0); MONOCYTE # 0.7 10^3/ul (0.3-0.9); MONOCYTES % 8.3 % (0.0-11.0); NEUTROPHILS % 65.7 % (39.0-77.0); PLATELET COUNT 330 10^3/UL (140-415); RED BLOOD COUNT 4.05 10^6/ul (4.20-5.40); RED CELL DISTRIBUTION WIDTH 17.1 % (11.5-14.5); WHITE BLOOD COUNT 8.4 10^3/ul (4.8-10.8)
[2017-03-14] MEDS: NYSTATIN SUSP 5 ML CUP GTB SCH ×4 (09:58→20:47)
[2017-03-14] MEDS: ARTIFICIAL TEARS 15 ML OPH BOTH EYES PRN ×2 (09:58→17:04)
[2017-03-14] MEDS: APIXABAN 5 MG TABLET GTB SCH ×2 (10:01→20:47)
[2017-03-14] MEDS: NYSTATIN 30 GM POWDER BTL TOP SCH ×2 (10:01→20:50)
[2017-03-14] MEDS: COLLAGENASE 30 GM TUBE TOP SCH (10:02)
[2017-03-14 10:10] LABS: CALCIUM 9.9 mg/dl (8.4-10.2); CREATININE 0.84 mg/dl (0.44-1.00)
[2017-03-14] MEDS: ATENOLOL 25 MG TAB PO SCH ×2 (12:00→20:47)
[2017-03-14] MEDS: DIGOXIN 0.125 MG TAB PO SCH (13:36)
--- NOTE | 2017-03-14 13:38 | CONS ---
Date/Time of Note Date/Time of Note DATE: 03/14/17 TIME: 13:37 Assessment/Plan Assessment/Plan Additional Assessment/Plan Atrial fibrillation Cardiomyopathy with EF 45% Cephalic vein thrombosis H Pylori Gastritis Dysphagia s/p PEG Anemia Clinically and hemodynamically stable Continue Atenolol Continue Digoxin Continue Eliquis Continue Prevacid Consultation Date/Type/Reason Admit Date/Time Jan 16, 2017 at 15:19 Initial Consult Date 01/26/17 Type of Consultation: cardiology Referring Provider: LAWRENCE PICKERING Exam/Review of Systems Vital Signs Vitals Vital Signs Date Time Temp Pulse Resp B/P Pulse Ox O2 Delivery O2 Flow Rate FiO2 03/14/17 11:53 98.3 67 18 99/56 95 03/14/17 08:16 21 03/13/17 14:40 Nasal Cannula Intake and Output 03/13/17 03/13/17 03/14/17 15:00 23:00 07:00 Intake Total 1300 ml Output Total 600 ml Balance 700 ml Exam Head: atraumatic, normocephalic Neck: non-tender, supple Respiratory: clear to auscultation Cardiovascular: irregular rhythm Gastrointestinal: nl liver, spleen, non-tender, soft Extremities: normal pulses Results Result Diagram: 03/14/17 0910 03/14/17 0910 Results 24 hrs Laboratory Tests Test 03/14/17 09:10 White Blood Count 8.4 Red Blood Count 4.05 L Hemoglobin 10.8 L Hematocrit 34.7 L Mean Corpuscular Volume 85.7 Mean Corpuscular Hemoglobin 26.7 L Mean Corpuscular Hemoglobin Concent 31.1 L Red Cell Distribution Width 17.1 H Platelet Count 330 Mean Platelet Volume 13.0 H Neutrophils % 65.7 Lymphocytes % 20.4 Monocytes % 8.3 Eosinophils % 3.9 Basophils % 1.2 Nucleated Red Blood Cells % 0.0 Neutrophils # (Manual) 5.5 Lymphocytes # 1.7 Monocytes # 0.7 Eosinophils # 0.3 Basophils # 0.1 Nucleated Red Blood Cells # 0.0 Sodium Level 139 Potassium Level 4.0 Chloride Level 105 Carbon Dioxide Level 25 Anion Gap 13 Blood Urea Nitrogen 23 H Creatinine 0.84 Glucose Level 110 Calcium Level 9.9 Medications Medications Current Medications Miscellaneous Information 1 ea NOTE XX ; Start 01/17/17 at 10:00 Glucose (Glutose) 15 gm Q15M PRN PO DECREASED GLUCOSE; Start 01/17/17 at 10:00 Glucose (Glutose) 22.5 gm Q15M PRN PO DECREASED GLUCOSE; Start 01/17/17 at 10: 00 Dextrose (D50w Syringe) 25 ml Q15M PRN IV DECREASED GLUCOSE; Start 01/17/17 at 10:00 Dextrose (D50w Syringe) 50 ml Q15M PRN IV DECREASED GLUCOSE; Start 01/17/17 at 10:00 Glucagon (Glucagen) 1 mg Q15M PRN IM DECREASED GLUCOSE; Start 01/17/17 at 10:00 Glucose (Glutose) 15 gm Q15M PRN BUCCAL DECREASED GLUCOSE; Start 01/17/17 at 10 :00 Collagenase (Santyl) 1 applic DAILY TOP Last administered on 03/14/17 10:02; Admin Dose 1 APPLIC; Start 01/17/17 at 21:00 IV Flush (NS 10 ml) 10 ml PRN PRN IV IV PROTOCOL Last administered on 21:45; Admin Dose 10 ML; Start 01/22/17 at 12:00 Miscellaneous Information (Pending Santyl Order For Wound Care) This patient dunaway... PRN PRN XX WOUND CARE; Start 01/24/17 at 07:30 Bisacodyl (Dulcolax Supp) 10 mg DAILY PRN [place] CONSTIPATION Last administered on 02/24/17 15:02; Admin Dose 10 MG; Start 01/25/17 at 16:30 Acetaminophen (Tylenol Liquid) 650 mg Q4H PRN NGT PAIN AND OR ELEVATED TEMP Last administered on 03/11/17 15:57; Admin Dose 650 MG; Start 01/26/17 at 09:00 Metoprolol Tartrate (Lopressor) 2.5 mg Q4H PRN IV HR > 110 Last administered on 02/23/17 03:58; Admin Dose 2.5 MG; Start 01/26/17 at 15:00 Midodrine (Proamatine) 5 mg Q8 PRN GTB BLOOD PRESSURE SUPPORT Last administered on 03/07/17 08:04; Admin Dose 5 MG; Start 01/28/17 at 16:30 Nystatin (Nystatin Powder) 1 applic BID TOP Last administered on 03/14/17 10: 01; Admin Dose 1 APPLIC; Start 02/04/17 at 12:00 Eye Lubricant (Artificial Tears Oph) 2 drop Q6H PRN BOTH EYES DRY EYES Last administered on 03/14/17 09:58; Admin Dose 2 DROP; Start 02/13/17 at 15:30 Nystatin (Nystatin Susp) 5 ml QID GTB Last administered on 03/14/17 09:58; Admin Dose 5 ML; Start 02/18/17 at 08:00 Lansoprazole (Prevacid) 30 mg BID@06,18 GTB Last administered on 03/14/17 06: 11; Admin Dose 30 MG; Start 02/18/17 at 18:00 Apixaban (Eliquis) 5 mg BID GTB Last administered on 03/14/17 10:01; Admin Dose 5 MG; Start 02/22/17 at 22:00 Digoxin (Digoxin) 0.125 mg DAILY@13 PO Last administered on 03/13/17 13:47; Admin Dose 0.125 MG; Start 03/12/17 at 13:00 Atenolol (Tenormin) 12.5 mg BID PO Last administered on 03/13/17 20:51; Admin Dose 12.5 MG; Start 03/12/17 at 21:00 JOSEFA WEINSTEIN M.D. Mar 14, 2017 13:38
--- NOTE | 2017-03-14 18:41 | PN ---
Date/Time of Note Date/Time of Note DATE: 03/14/17 TIME: 18:29 Assessment/Plan VTE Prophylaxis VTE Prophylaxis Intervention: other Lines/Catheters [facility]from [facility] PICC Line Central line still needed: Yes Urinary Cath still in place: Yes Reason Cath still needed: urinary retention Assessment/Plan Assessment/Plan - Urinary tract infection, continue antibiotics per ID. Dr. Abarca is following in an infection disease consultation. - Gastritis due to H. pylori, continue triple therapy per H. pylori eradication - Possible bleeding from G-tube and hematuria, resolved status post EGD was notion of gastritis, continue Protonix. - Bilateral thalamic infarctions. - Dysphagia, status post G-tube placement by Dr. Garcia. - Atrial fibrillation with rapid ventricular response. Dr. Armenta is following and cardiology consultation. Continue Eliquis. - Thrombosis of the bilateral cephalic veins. - Acute kidney injury, resolved. - History of CVA - History of hyperlipidemia dw dr Valdovinos/staff Subjective 24 Hr Interval Summary Free Text/Dictation Late entry- 03/23/2017. NAD, seems comfortable, was awake all day, Family at bed side- had 3 meals today. all Qs answered. will do BUE Doppler per family request as patient has history of DVT Respiratory: no complaints Cardiovascular: no complaints Gastrointestinal: no complaints Genitourinary: no complaints Exam/Review of Systems Vital Signs Vitals Vital Signs Date Time Temp Pulse Resp B/P Pulse Ox O2 Delivery O2 Flow Rate FiO2 03/14/17 16:00 82 03/14/17 15:33 98.4 18 127/68 97 03/14/17 14:30 21 03/13/17 14:40 Nasal Cannula Intake and Output 03/13/17 03/13/17 03/14/17 15:00 23:00 07:00 Intake Total 1300 ml Output Total 600 ml Balance 700 ml Exam Constitutional: alert, well developed Respiratory: clear to auscultation, normal air movement Cardiovascular: nl pulses Gastrointestinal: soft Musculoskeletal: other Extremities: normal pulses Neurological: nl speech (Oriented to name only) Results Result Diagram: 03/14/17 0910 03/14/17 0910 Results 24 hrs Laboratory Tests Test 03/14/17 09:10 White Blood Count 8.4 Red Blood Count 4.05 L Hemoglobin 10.8 L Hematocrit 34.7 L Mean Corpuscular Volume 85.7 Mean Corpuscular Hemoglobin 26.7 L Mean Corpuscular Hemoglobin Concent 31.1 L Red Cell Distribution Width 17.1 H Platelet Count 330 Mean Platelet Volume 13.0 H Neutrophils % 65.7 Lymphocytes % 20.4 Monocytes % 8.3 Eosinophils % 3.9 Basophils % 1.2 Nucleated Red Blood Cells % 0.0 Neutrophils # (Manual) 5.5 Lymphocytes # 1.7 Monocytes # 0.7 Eosinophils # 0.3 Basophils # 0.1 Nucleated Red Blood Cells # 0.0 Sodium Level 139 Potassium Level 4.0 Chloride Level 105 Carbon Dioxide Level 25 Anion Gap 13 Blood Urea Nitrogen 23 H Creatinine 0.84 Glucose Level 110 Calcium Level 9.9 Medications Medications Current Medications Miscellaneous Information 1 ea NOTE XX ; Start 01/17/17 at 10:00 Glucose (Glutose) 15 gm Q15M PRN PO DECREASED GLUCOSE; Start 01/17/17 at 10:00 Glucose (Glutose) 22.5 gm Q15M PRN PO DECREASED GLUCOSE; Start 01/17/17 at 10: 00 Dextrose (D50w Syringe) 25 ml Q15M PRN IV DECREASED GLUCOSE; Start 01/17/17 at 10:00 Dextrose (D50w Syringe) 50 ml Q15M PRN IV DECREASED GLUCOSE; Start 01/17/17 at 10:00 Glucagon (Glucagen) 1 mg Q15M PRN IM DECREASED GLUCOSE; Start 01/17/17 at 10:00 Glucose (Glutose) 15 gm Q15M PRN BUCCAL DECREASED GLUCOSE; Start 01/17/17 at 10 :00 Collagenase (Santyl) 1 applic DAILY TOP Last administered on 03/14/17 10:02; Admin Dose 1 APPLIC; Start 01/17/17 at 21:00 IV Flush (NS 10 ml) 10 ml PRN PRN IV IV PROTOCOL Last administered on 21:45; Admin Dose 10 ML; Start 01/22/17 at 12:00 Miscellaneous Information (Pending Santyl Order For Wound Care) This patient dunaway... PRN PRN XX WOUND CARE; Start 01/24/17 at 07:30 Bisacodyl (Dulcolax Supp) 10 mg DAILY PRN [place] CONSTIPATION Last administered on 02/24/17 15:02; Admin Dose 10 MG; Start 01/25/17 at 16:30 Acetaminophen (Tylenol Liquid) 650 mg Q4H PRN NGT PAIN AND OR ELEVATED TEMP Last administered on 03/11/17 15:57; Admin Dose 650 MG; Start 01/26/17 at 09:00 Metoprolol Tartrate (Lopressor) 2.5 mg Q4H PRN IV HR > 110 Last administered on 02/23/17 03:58; Admin Dose 2.5 MG; Start 01/26/17 at 15:00 Midodrine (Proamatine) 5 mg Q8 PRN GTB BLOOD PRESSURE SUPPORT Last administered on 03/07/17 08:04; Admin Dose 5 MG; Start 01/28/17 at 16:30 Nystatin (Nystatin Powder) 1 applic BID TOP Last administered on 03/14/17 10: 01; Admin Dose 1 APPLIC; Start 02/04/17 at 12:00 Eye Lubricant (Artificial Tears Oph) 2 drop Q6H PRN BOTH EYES DRY EYES Last administered on 03/14/17 17:04; Admin Dose 2 DROP; Start 02/13/17 at 15:30 Nystatin (Nystatin Susp) 5 ml QID GTB Last administered on 03/14/17 17:04; Admin Dose 5 ML; Start 02/18/17 at 08:00 Lansoprazole (Prevacid) 30 mg BID@06,18 GTB Last administered on 03/14/17 17: 04; Admin Dose 30 MG; Start 02/18/17 at 18:00 Apixaban (Eliquis) 5 mg BID GTB Last administered on 03/14/17 10:01; Admin Dose 5 MG; Start 02/22/17 at 22:00 Digoxin (Digoxin) 0.125 mg DAILY@13 PO Last administered on 03/14/17 13:36; Admin Dose 0.125 MG; Start 03/12/17 at 13:00 Atenolol (Tenormin) 12.5 mg BID PO Last administered on 03/13/17 20:51; Admin Dose 12.5 MG; Start 03/12/17 at 21:00 ALEXIS NAJERA Mar 14, 2017 18:40
--- NOTE | 2017-03-14 18:44 | PN ---
Date/Time of Note Date/Time of Note DATE: 03/14/17 TIME: 18:41 Assessment/Plan VTE Prophylaxis VTE Prophylaxis Intervention: other Lines/Catheters IV [facility] Type ([facility]): PICC Line Central line still needed: Yes Urinary Cath still in place: Yes Reason Cath still needed: urinary retention Assessment/Plan Assessment/Plan - Urinary tract infection, continue antibiotics per ID. Dr. Abarca is following in an infection disease consultation. - Gastritis due to H. pylori, continue triple therapy per H. pylori eradication - Possible bleeding from G-tube and hematuria, resolved status post EGD was notion of gastritis, continue Protonix. - Bilateral thalamic infarctions. - Dysphagia, status post G-tube placement by Dr. Garcia. - Atrial fibrillation with rapid ventricular response. Dr. Armenta is following and cardiology consultation. Continue Eliquis. - Thrombosis of the bilateral cephalic veins. - Acute kidney injury, resolved. - History of CVA - History of hyperlipidemia dw dr Valdovinos/staff Subjective 24 Hr Interval Summary Free Text/Dictation nad, FC leaked today, FC replaced today-patient tolerated well. Dw staff Respiratory: no complaints Cardiovascular: no complaints Gastrointestinal: no complaints Genitourinary: no complaints Musculoskeletal: no complaints Exam/Review of Systems Vital Signs Vitals Vital Signs Date Time Temp Pulse Resp B/P Pulse Ox O2 Delivery O2 Flow Rate FiO2 03/14/17 16:00 82 03/14/17 15:33 98.4 18 127/68 97 03/14/17 14:30 21 03/13/17 14:40 Nasal Cannula Intake and Output 03/13/17 03/13/17 03/14/17 15:00 23:00 07:00 Intake Total 1300 ml Output Total 600 ml Balance 700 ml Exam Constitutional: alert, well developed Respiratory: clear to auscultation, normal air movement Cardiovascular: nl pulses Gastrointestinal: non-tender, soft Musculoskeletal: other Extremities: normal pulses Neurological: confused, nl speech Results Result Diagram: 03/14/17 0910 03/14/17 0910 Results 24 hrs Laboratory Tests Test 03/14/17 09:10 White Blood Count 8.4 Red Blood Count 4.05 L Hemoglobin 10.8 L Hematocrit 34.7 L Mean Corpuscular Volume 85.7 Mean Corpuscular Hemoglobin 26.7 L Mean Corpuscular Hemoglobin Concent 31.1 L Red Cell Distribution Width 17.1 H Platelet Count 330 Mean Platelet Volume 13.0 H Neutrophils % 65.7 Lymphocytes % 20.4 Monocytes % 8.3 Eosinophils % 3.9 Basophils % 1.2 Nucleated Red Blood Cells % 0.0 Neutrophils # (Manual) 5.5 Lymphocytes # 1.7 Monocytes # 0.7 Eosinophils # 0.3 Basophils # 0.1 Nucleated Red Blood Cells # 0.0 Sodium Level 139 Potassium Level 4.0 Chloride Level 105 Carbon Dioxide Level 25 Anion Gap 13 Blood Urea Nitrogen 23 H Creatinine 0.84 Glucose Level 110 Calcium Level 9.9 Medications Medications Current Medications Miscellaneous Information 1 ea NOTE XX ; Start 01/17/17 at 10:00 Glucose (Glutose) 15 gm Q15M PRN PO DECREASED GLUCOSE; Start 01/17/17 at 10:00 Glucose (Glutose) 22.5 gm Q15M PRN PO DECREASED GLUCOSE; Start 01/17/17 at 10: 00 Dextrose (D50w Syringe) 25 ml Q15M PRN IV DECREASED GLUCOSE; Start 01/17/17 at 10:00 Dextrose (D50w Syringe) 50 ml Q15M PRN IV DECREASED GLUCOSE; Start 01/17/17 at 10:00 Glucagon (Glucagen) 1 mg Q15M PRN IM DECREASED GLUCOSE; Start 01/17/17 at 10:00 Glucose (Glutose) 15 gm Q15M PRN BUCCAL DECREASED GLUCOSE; Start 01/17/17 at 10 :00 Collagenase (Santyl) 1 applic DAILY TOP Last administered on 03/14/17 10:02; Admin Dose 1 APPLIC; Start 01/17/17 at 21:00 IV Flush (NS 10 ml) 10 ml PRN PRN IV IV PROTOCOL Last administered on 21:45; Admin Dose 10 ML; Start 01/22/17 at 12:00 Miscellaneous Information (Pending Santyl Order For Wound Care) This patient dunaway... PRN PRN XX WOUND CARE; Start 01/24/17 at 07:30 Bisacodyl (Dulcolax Supp) 10 mg DAILY PRN [place] CONSTIPATION Last administered on 02/24/17 15:02; Admin Dose 10 MG; Start 01/25/17 at 16:30 Acetaminophen (Tylenol Liquid) 650 mg Q4H PRN NGT PAIN AND OR ELEVATED TEMP Last administered on 03/11/17 15:57; Admin Dose 650 MG; Start 01/26/17 at 09:00 Metoprolol Tartrate (Lopressor) 2.5 mg Q4H PRN IV HR > 110 Last administered on 02/23/17 03:58; Admin Dose 2.5 MG; Start 01/26/17 at 15:00 Midodrine (Proamatine) 5 mg Q8 PRN GTB BLOOD PRESSURE SUPPORT Last administered on 03/07/17 08:04; Admin Dose 5 MG; Start 01/28/17 at 16:30 Nystatin (Nystatin Powder) 1 applic BID TOP Last administered on 03/14/17 10: 01; Admin Dose 1 APPLIC; Start 02/04/17 at 12:00 Eye Lubricant (Artificial Tears Oph) 2 drop Q6H PRN BOTH EYES DRY EYES Last administered on 03/14/17 17:04; Admin Dose 2 DROP; Start 02/13/17 at 15:30 Nystatin (Nystatin Susp) 5 ml QID GTB Last administered on 03/14/17 17:04; Admin Dose 5 ML; Start 02/18/17 at 08:00 Lansoprazole (Prevacid) 30 mg BID@06,18 GTB Last administered on 03/14/17 17: 04; Admin Dose 30 MG; Start 02/18/17 at 18:00 Apixaban (Eliquis) 5 mg BID GTB Last administered on 03/14/17 10:01; Admin Dose 5 MG; Start 02/22/17 at 22:00 Digoxin (Digoxin) 0.125 mg DAILY@13 PO Last administered on 03/14/17 13:36; Admin Dose 0.125 MG; Start 03/12/17 at 13:00 Atenolol (Tenormin) 12.5 mg BID PO Last administered on 03/13/17 20:51; Admin Dose 12.5 MG; Start 03/12/17 at 21:00 ALEXIS NAJERA Mar 14, 2017 18:44
[2017-03-14] MEDS: ACETAMINOPHEN 650MG/20.3ML CUP NGT PRN (20:47)
[2017-03-15] VITALS (13 sets, daily range): BP systolic 98–131; BP diastolic 51–60; PULSE 52–90; RESP 16–18
[2017-03-15] MEDS: LEVALBUTEROL (NEB) 0.63 MG/3 ML AMP HHN SCH ×4 (01:56→20:55)
[2017-03-15] MEDS: LANSOPRAZOLE 30 MG CAP GTB SCH ×2 (06:42→18:00)
--- NOTE | 2017-03-15 07:12 | RADRPT ---
PROCEDURE: Ultrasound examination of bilateral upper extremities with Doppler. CLINICAL INDICATION: Pain and swelling. TECHNIQUE: Multiple sonographic images of bilateral upper extremities were performed with yip sc leandro and color Doppler. COMPARISON: 01/21/2017. FINDINGS: Bilateral internal jugular, subclavian, axillary, brachial, basilic, radial and ulnar veins demonstr ate normal color flow, waveforms and compression. There is no evidence of deep venous thrombosis. B ilateral cephalic veins are diminutive and difficult to visualized. IMPRESSION: No evidence of deep venous thrombosis within bilateral upper extremities. .Magno García MD, MD Date Time Electronically viewed and signed by .Magno García MD, on 03/15/2017 07:12 .T/
[2017-03-15 07:33] LABS: BASOPHIL # 0.1 10^3/ul (0.0-0.1); BASOPHILS % 1.1 % (0.0-2.0); EOSINOPHILS # 0.3 10^3/ul (0.0-0.5); EOSINOPHILS % 3.9 % (0.0-7.0); HEMATOCRIT 34.6 % (37.0-47.0); LYMPHOCYTES # 1.1 10^3/ul (0.8-2.9); LYMPHOCYTES % 13.1 % (15.0-51.0); MEAN CORPUSCULAR HEMOGLOBIN 27.4 pg (29.0-33.0); MEAN CORPUSCULAR HGB CONC 31.8 g/dl (32.0-37.0); MEAN CORPUSCULAR VOLUME 86.3 fl (82.0-101.0); MEAN PLATELET VOLUME 12.7 fl (7.4-10.4); MONOCYTE # 0.6 10^3/ul (0.3-0.9); MONOCYTES % 7.1 % (0.0-11.0); NEUTROPHILS % 74.1 % (39.0-77.0); PLATELET COUNT 316 10^3/UL (140-415); RED BLOOD COUNT 4.01 10^6/ul (4.20-5.40); RED CELL DISTRIBUTION WIDTH 16.7 % (11.5-14.5); WHITE BLOOD COUNT 8.3 10^3/ul (4.8-10.8)
[2017-03-15 08:05] LABS: CALCIUM 9.9 mg/dl (8.4-10.2); CREATININE 0.83 mg/dl (0.44-1.00); POTASSIUM 3.9 mmol/L (3.5-5.1)
[2017-03-15] MEDS: NYSTATIN SUSP 5 ML CUP GTB SCH ×4 (10:22→20:58)
[2017-03-15] MEDS: ARTIFICIAL TEARS 15 ML OPH BOTH EYES PRN ×2 (10:22→20:59)
[2017-03-15] MEDS: APIXABAN 5 MG TABLET GTB SCH ×2 (10:23→20:48)
[2017-03-15] MEDS: ATENOLOL 25 MG TAB PO SCH ×2 (10:23→20:48)
[2017-03-15] MEDS: NYSTATIN 30 GM POWDER BTL TOP SCH ×2 (10:24→20:58)
[2017-03-15] MEDS: COLLAGENASE 30 GM TUBE TOP SCH (10:25)
--- NOTE | 2017-03-15 11:28 | CONS ---
Date/Time of Note Date/Time of Note DATE: 03/15/17 TIME: 11:26 Assessment/Plan Assessment/Plan Chief Complaint/Hosp Course IMP: 1. AF-mainly rate controlled/Trop negative x 3. Had pause x 3.7 seconds 01/30 on standing IVP BB. No recurrence since decrease in IVP BB. Low dose BB as tolerated 2.Hypotension-on midodrine 3.encephalopathy/ams-slowly improving 4.coagulopathy-now on eliquis 5. Acute Renal failure-Now resolved 6.Leukocytosis 7. Cardiomyopathy-EF 45% 8. Cephalic vein thrombosis 9. Dysphagia s/p PEG 10. H Pylori Recc: -Tele -serial ecg's -Cont. Eliquis -Continue low dose BB as tolerated only with atenolol -Continue abx's -Follow MS closely which has had some significant improvement -Continue midodrine for low BP -Continue PPI -Continue PO digoxin -No definite indication for PPM at this time Problems: Consultation Date/Type/Reason Admit Date/Time Jan 16, 2017 at 15:19 Initial Consult Date 01/17/17 Type of Consultation: cardiology Reason for Consultation AF Referring Provider: LAWRENCE PICKERING Exam/Review of Systems Vital Signs Vitals Vital Signs Date Time Temp Pulse Resp B/P Pulse Ox O2 Delivery O2 Flow Rate FiO2 03/15/17 08:43 84 18 97 21 03/15/17 07:18 98.2 102/58 03/13/17 14:40 Nasal Cannula Intake and Output 03/14/17 03/14/17 03/15/17 14:59 22:59 06:59 Intake Total 600 ml 1000 ml Output Total 500 ml 600 ml Balance 100 ml 400 ml Exam Review of Systems: CONSTITUTIONAL: No fevers, chills. PULMONARY: No sob CARDIOVASCULAR: No chest pain/palpitations GASTROINTESTINAL: No nausea/vomiting. GENITOURINARY: No hematuria/dysuria. MUSCULOSKELETAL: No myagias/arthalgias. PSYCHIATRIC: The patient denies depression. NEUROLOGIC: encephalopathic Constitutional: alert Psych: no complaints Head: normocephalic ENMT: mucosa pink and moist Neck: supple Respiratory: diminished breath sounds (at bases/B) Cardiovascular: irregular rhythm Gastrointestinal: non-tender, soft Musculoskeletal: muscle tone (normal) Extremities: edema (none) Neurological: other (No focal deficits) Results Result Diagram: 03/15/17 0707 03/15/17 0707 Results 24 hrs Laboratory Tests Test 03/15/17 07:07 White Blood Count 8.3 Red Blood Count 4.01 L Hemoglobin 11.0 L Hematocrit 34.6 L Mean Corpuscular Volume 86.3 Mean Corpuscular Hemoglobin 27.4 L Mean Corpuscular Hemoglobin Concent 31.8 L Red Cell Distribution Width 16.7 H Platelet Count 316 Mean Platelet Volume 12.7 H Neutrophils % 74.1 Lymphocytes % 13.1 L Monocytes % 7.1 Eosinophils % 3.9 Basophils % 1.1 Nucleated Red Blood Cells % 0.0 Neutrophils # (Manual) 6.1 Lymphocytes # 1.1 Monocytes # 0.6 Eosinophils # 0.3 Basophils # 0.1 Nucleated Red Blood Cells # 0.0 Sodium Level 143 Potassium Level 3.9 Chloride Level 106 Carbon Dioxide Level 26 Anion Gap 15 Blood Urea Nitrogen 22 H Creatinine 0.83 Glucose Level 115 Calcium Level 9.9 Medications Medications Current Medications Miscellaneous Information 1 ea NOTE XX ; Start 01/17/17 at 10:00 Glucose (Glutose) 15 gm Q15M PRN PO DECREASED GLUCOSE; Start 01/17/17 at 10:00 Glucose (Glutose) 22.5 gm Q15M PRN PO DECREASED GLUCOSE; Start 01/17/17 at 10: 00 Dextrose (D50w Syringe) 25 ml Q15M PRN IV DECREASED GLUCOSE; Start 01/17/17 at 10:00 Dextrose (D50w Syringe) 50 ml Q15M PRN IV DECREASED GLUCOSE; Start 01/17/17 at 10:00 Glucagon (Glucagen) 1 mg Q15M PRN IM DECREASED GLUCOSE; Start 01/17/17 at 10:00 Glucose (Glutose) 15 gm Q15M PRN BUCCAL DECREASED GLUCOSE; Start 01/17/17 at 10 :00 Collagenase (Santyl) 1 applic DAILY TOP Last administered on 03/15/17t 10:25; Admin Dose 1 APPLIC; Start 01/17/17 at 21:00 IV Flush (NS 10 ml) 10 ml PRN PRN IV IV PROTOCOL Last administered on 21:45; Admin Dose 10 ML; Start 01/22/17 at 12:00 Miscellaneous Information (Pending Santyl Order For Wound Care) This patient dunaway... PRN PRN XX WOUND CARE; Start 01/24/17 at 07:30 Bisacodyl (Dulcolax Supp) 10 mg DAILY PRN [place] CONSTIPATION Last administered on 02/24/17 15:02; Admin Dose 10 MG; Start 01/25/17 at 16:30 Acetaminophen (Tylenol Liquid) 650 mg Q4H PRN NGT PAIN AND OR ELEVATED TEMP Last administered on 03/14/17 20:47; Admin Dose 650 MG; Start 01/26/17 at 09:00 Metoprolol Tartrate (Lopressor) 2.5 mg Q4H PRN IV HR > 110 Last administered on 02/23/17 03:58; Admin Dose 2.5 MG; Start 01/26/17 at 15:00 Midodrine (Proamatine) 5 mg Q8 PRN GTB BLOOD PRESSURE SUPPORT Last administered on 03/07/17 08:04; Admin Dose 5 MG; Start 01/28/17 at 16:30 Nystatin (Nystatin Powder) 1 applic BID TOP Last administered on 03/15/17 10: 24; Admin Dose 1 APPLIC; Start 02/04/17 at 12:00 Eye Lubricant (Artificial Tears Oph) 2 drop Q6H PRN BOTH EYES DRY EYES Last administered on 03/15/17 10:22; Admin Dose 2 DROP; Start 02/13/17 at 15:30 Nystatin (Nystatin Susp) 5 ml QID GTB Last administered on 03/15/17 10:22; Admin Dose 5 ML; Start 02/18/17 at 08:00 Lansoprazole (Prevacid) 30 mg BID@06,18 GTB Last administered on 03/15/17 06: 42; Admin Dose 30 MG; Start 02/18/17 at 18:00 Apixaban (Eliquis) 5 mg BID GTB Last administered on 03/15/17 10:23; Admin Dose 5 MG; Start 02/22/17 at 22:00 Digoxin (Digoxin) 0.125 mg DAILY@13 PO Last administered on 03/14/17 13:36; Admin Dose 0.125 MG; Start 03/12/17 at 13:00 Atenolol (Tenormin) 12.5 mg BID PO Last administered on 03/15/17 10:23; Admin Dose 12.5 MG; Start 03/12/17 at 21:00 MINOO REY Mar 15, 2017 11:28
[2017-03-15] MEDS: DIGOXIN 0.125 MG TAB PO SCH (14:10)
--- NOTE | 2017-03-15 14:28 | PN ---
Date/Time of Note Date/Time of Note DATE: 03/15/17 TIME: 14:26 Assessment/Plan VTE Prophylaxis VTE Prophylaxis Intervention: other Lines/Catheters [facility] Type (from [facility]): PICC Line Central line still needed: Yes Urinary Cath still in place: Yes Reason Cath still needed: urinary retention Assessment/Plan Assessment/Plan - Urinary tract infection, continue antibiotics per ID. Dr. Abarca is following in an infection disease consultation. - Gastritis due to H. pylori, continue triple therapy per H. pylori eradication - Possible bleeding from G-tube and hematuria, resolved status post EGD was notion of gastritis, continue Protonix. - Bilateral thalamic infarctions. - Dysphagia, status post G-tube placement by Dr. Garcia. - Atrial fibrillation with rapid ventricular response. Dr. Armenta is following and cardiology consultation. Continue Eliquis. - Thrombosis of the bilateral cephalic veins. - Acute kidney injury, resolved. - History of CVA - History of hyperlipidemia dw dr Valdovinos/staff Subjective 24 Hr Interval Summary Free Text/Dictation getting PT now, bult c/o headaches afebrile, dw staff Respiratory: no complaints Cardiovascular: no complaints Gastrointestinal: no complaints Genitourinary: no complaints Musculoskeletal: no complaints Neurologic: headache Endocrine: no complaints Exam/Review of Systems Vital Signs Vitals Vital Signs Date Time Temp Pulse Resp B/P Pulse Ox O2 Delivery O2 Flow Rate FiO2 03/15/17 12:57 90 03/15/17 11:45 98.6 18 98/51 98 03/15/17 08:43 21 03/13/17 14:40 Nasal Cannula Intake and Output 03/14/17 03/14/17 03/15/17 15:00 23:00 07:00 Intake Total 600 ml 1000 ml Output Total 500 ml 600 ml Balance 100 ml 400 ml Exam Constitutional: alert, well developed Respiratory: clear to auscultation, normal air movement Cardiovascular: nl pulses, other (afib) Musculoskeletal: other Extremities: normal pulses Neurological: nl speech Results Result Diagram: 03/15/17 0707 03/15/17 0707 Results 24 hrs Laboratory Tests Test 03/15/17 07:07 White Blood Count 8.3 Red Blood Count 4.01 L Hemoglobin 11.0 L Hematocrit 34.6 L Mean Corpuscular Volume 86.3 Mean Corpuscular Hemoglobin 27.4 L Mean Corpuscular Hemoglobin Concent 31.8 L Red Cell Distribution Width 16.7 H Platelet Count 316 Mean Platelet Volume 12.7 H Neutrophils % 74.1 Lymphocytes % 13.1 L Monocytes % 7.1 Eosinophils % 3.9 Basophils % 1.1 Nucleated Red Blood Cells % 0.0 Neutrophils # (Manual) 6.1 Lymphocytes # 1.1 Monocytes # 0.6 Eosinophils # 0.3 Basophils # 0.1 Nucleated Red Blood Cells # 0.0 Sodium Level 143 Potassium Level 3.9 Chloride Level 106 Carbon Dioxide Level 26 Anion Gap 15 Blood Urea Nitrogen 22 H Creatinine 0.83 Glucose Level 115 Calcium Level 9.9 Medications Medications Current Medications Miscellaneous Information 1 ea NOTE XX ; Start 01/17/17 at 10:00 Glucose (Glutose) 15 gm Q15M PRN PO DECREASED GLUCOSE; Start 01/17/17 at 10:00 Glucose (Glutose) 22.5 gm Q15M PRN PO DECREASED GLUCOSE; Start 01/17/17 at 10: 00 Dextrose (D50w Syringe) 25 ml Q15M PRN IV DECREASED GLUCOSE; Start 01/17/17 at 10:00 Dextrose (D50w Syringe) 50 ml Q15M PRN IV DECREASED GLUCOSE; Start 01/17/17 at 10:00 Glucagon (Glucagen) 1 mg Q15M PRN IM DECREASED GLUCOSE; Start 01/17/17 at 10:00 Glucose (Glutose) 15 gm Q15M PRN BUCCAL DECREASED GLUCOSE; Start 01/17/17 at 10 :00 Collagenase (Santyl) 1 applic DAILY TOP Last administered on 03/15/17 10:25; Admin Dose 1 APPLIC; Start 01/17/17 at 21:00 IV Flush (NS 10 ml) 10 ml PRN PRN IV IV PROTOCOL Last administered on 21:45; Admin Dose 10 ML; Start 01/22/17 at 12:00 Miscellaneous Information (Pending Santyl Order For Wound Care) This patient dunaway... PRN PRN XX WOUND CARE; Start 01/24/17 at 07:30 Bisacodyl (Dulcolax Supp) 10 mg DAILY PRN [place] CONSTIPATION Last administered on 02/24/17 15:02; Admin Dose 10 MG; Start 01/25/17 at 16:30 Acetaminophen (Tylenol Liquid) 650 mg Q4H PRN NGT PAIN AND OR ELEVATED TEMP Last administered on 03/14/17 20:47; Admin Dose 650 MG; Start 01/26/17 at 09:00 Metoprolol Tartrate (Lopressor) 2.5 mg Q4H PRN IV HR > 110 Last administered on 02/23/17 03:58; Admin Dose 2.5 MG; Start 01/26/17 at 15:00 Midodrine (Proamatine) 5 mg Q8 PRN GTB BLOOD PRESSURE SUPPORT Last administered on 03/07/17 08:04; Admin Dose 5 MG; Start 01/28/17 at 16:30 Nystatin (Nystatin Powder) 1 applic BID TOP Last administered on 03/15/17 10: 24; Admin Dose 1 APPLIC; Start 02/04/17 at 12:00 Eye Lubricant (Artificial Tears Oph) 2 drop Q6H PRN BOTH EYES DRY EYES Last administered on 03/15/17 10:22; Admin Dose 2 DROP; Start 02/13/17 at 15:30 Nystatin (Nystatin Susp) 5 ml QID GTB Last administered on 03/15/17 14:09; Admin Dose 5 ML; Start 02/18/17 at 08:00 Lansoprazole (Prevacid) 30 mg BID@06,18 GTB Last administered on 03/15/17 06: 42; Admin Dose 30 MG; Start 02/18/17 at 18:00 Apixaban (Eliquis) 5 mg BID GTB Last administered on 03/15/17 10:23; Admin Dose 5 MG; Start 02/22/17 at 22:00 Digoxin (Digoxin) 0.125 mg DAILY@13 PO Last administered on 03/15/17 14:10; Admin Dose 0.125 MG; Start 03/12/17 at 13:00 Atenolol (Tenormin) 12.5 mg BID PO Last administered on 03/15/17 10:23; Admin Dose 12.5 MG; Start 03/12/17 at 21:00 ALEXIS NAJERA Mar 15, 2017 14:28
[2017-03-15] MEDS: ACETAMINOPHEN 650MG/20.3ML CUP NGT PRN (20:58)
[2017-03-16] VITALS (12 sets, daily range): BP systolic 101–172; BP diastolic 58–110; PULSE 61–89; RESP 16–19
[2017-03-16] MEDS: LEVALBUTEROL (NEB) 0.63 MG/3 ML AMP HHN SCH ×4 (02:16→20:38)
[2017-03-16] MEDS: LANSOPRAZOLE 30 MG CAP GTB SCH ×2 (06:07→17:01)
[2017-03-16] MEDS: ARTIFICIAL TEARS 15 ML OPH BOTH EYES PRN ×2 (09:02→20:33)
[2017-03-16] MEDS: APIXABAN 5 MG TABLET GTB SCH ×2 (09:02→20:22)
[2017-03-16] MEDS: NYSTATIN SUSP 5 ML CUP GTB SCH ×4 (09:02→20:22)
[2017-03-16] MEDS: NYSTATIN 30 GM POWDER BTL TOP SCH ×2 (09:03→20:25)
[2017-03-16] MEDS: ATENOLOL 25 MG TAB PO SCH ×2 (09:03→20:24)
[2017-03-16] MEDS: COLLAGENASE 30 GM TUBE TOP SCH (09:04)
--- NOTE | 2017-03-16 12:25 | CONS ---
Date/Time of Note Date/Time of Note DATE: 03/16/17 TIME: 11:50 Assessment/Plan Assessment/Plan Chief Complaint/Hosp Course 1. AF-mainly rate controlled/Trop negative x 3. Had pause x 3.7 seconds 01/30 on standing IVP BB. No recurrence since decrease in IVP BB. Tolerating low dose PO BB well 2.Hypotension-on midodrine 3.encephalopathy/ams-slowly improving 4.coagulopathy-now on eliquis 5. Acute Renal failure-Now resolved 6.Leukocytosis 7. Cardiomyopathy-EF 45% 8. Cephalic vein thrombosis 9. Dysphagia s/p PEG 10. H Pylori Continue current treatment. Decide about nutrition after the swallowing test. ALCON GIPSON MD Problems: Consultation Date/Type/Reason Admit Date/Time Jan 16, 2017 at 15:19 Hx of Present Illness 1. AF-mainly rate controlled/Trop negative x 3. Had pause x 3.7 seconds 01/30 on standing IVP BB. No recurrence since decrease in IVP BB. Tolerating low dose PO BB well 2.Hypotension-on midodrine 3.encephalopathy/ams-slowly improving 4.coagulopathy-now on eliquis 5. Acute Renal failure-Now resolved 6.Leukocytosis 7. Cardiomyopathy-EF 45% 8. Cephalic vein thrombosis 9. Dysphagia s/p PEG 10. H Pylori Continue current treatment. Decide about nutrition after the swallowing test. ALCON GIPSON MD Patient Name: Nilda Mcmullen Unit Number: [id number] Date of : 1955 Patient Status: Admitted Inpatient Attending Doctor: Kana Valdovinos MD Date/Time of Note Date/Time of Note Date/Time of Note DATE: 03/16/17 TIME: 11:26 Assessment/Plan Assessment/Plan Assessment/Plan Chief Complaint/Hosp Course IMP: 1. AF- heart rate controlled - 65 - 80's. (Pt had a 3.7 seconds 01/30 on standing post IV push beta jitendra. No recurrence since. Low dose BB as tolerated). 2. Hypotension-on midodrine 3. Encephalopathy - ams slowly improving 4. Coagulopathy - now on Eliquis PO BID 5. Acute Renal failure - Now resolved 6. Leukocytosis 7. Cardiomyopathy - EF 45% 8. Cephalic vein thrombosis 9. Dysphagia s/p PEG 10. H Pylori Recommendations: - Patient can probably move to med-surg bed after checking orthostatic pressures if normal. - Serial EKG's - Cont. Eliquis - Continue low dose BB as tolerated only with atenolol - Continue abx's - Follow MS closely which has had some significant improvement - Continue midodrine for low BP - Continue PPI - Continue PO digoxin - No definite indication for PPM at this time Problems: ALCON GIPSON MD Referring Provider: LAWRENCE PICKERING Constitutional: no complaints ENT: no complaints Respiratory: no complaints Cardiovascular: no complaints Gastrointestinal: no complaints Genitourinary: no complaints Musculoskeletal: no complaints Neurologic: headache Endocrine: no complaints Psychological: no complaints Social History Smoking Status: Unknown if ever smoked Exam/Review of Systems Vital Signs Vitals Vital Signs Date Time Temp Pulse Resp B/P Pulse Ox O2 Delivery O2 Flow Rate FiO2 03/16/17 11:31 98.9 80 16 101/59 99 03/16/17 07:50 21 03/13/17 14:40 Nasal Cannula Intake and Output 03/15/17 03/15/17 03/16/17 15:00 23:00 07:00 Intake Total 1120 ml 687 ml Output Total 950 ml 800 ml Balance 170 ml -113 ml Results Result Diagram: 03/15/17 0707 03/15/17 0707 Medications Medications Current Medications Miscellaneous Information 1 ea NOTE XX ; Start 01/17/17 at 10:00 Glucose (Glutose) 15 gm Q15M PRN PO DECREASED GLUCOSE; Start 01/17/17 at 10:00 Glucose (Glutose) 22.5 gm Q15M PRN PO DECREASED GLUCOSE; Start 01/17/17 at 10: 00 Dextrose (D50w Syringe) 25 ml Q15M PRN IV DECREASED GLUCOSE; Start 01/17/17 at 10:00 Dextrose (D50w Syringe) 50 ml Q15M PRN IV DECREASED GLUCOSE; Start 01/17/17 at 10:00 Glucagon (Glucagen) 1 mg Q15M PRN IM DECREASED GLUCOSE; Start 01/17/17 at 10:00 Glucose (Glutose) 15 gm Q15M PRN BUCCAL DECREASED GLUCOSE; Start 01/17/17 at 10 :00 Collagenase (Santyl) 1 applic DAILY TOP Last administered on 03/16/17t 09:04; Admin Dose 1 APPLIC; Start 01/17/17 at 21:00 IV Flush (NS 10 ml) 10 ml PRN PRN IV IV PROTOCOL Last administered on 21:45; Admin Dose 10 ML; Start 01/22/17 at 12:00 Misc[facility] This patient dunaway... PRN PRN XX WOUND CARE; Start 01/24/17 at 07:30 Bisacodyl (Dulcolax Supp) 10 mg DAILY PRN [place] CONSTIPATION Last administered on 02/24/17 15:02; Admin Dose 10 MG; Start 01/25/17 at 16:30 Acetaminophen (Tylenol Liquid) 650 mg Q4H PRN NGT PAIN AND OR ELEVATED TEMP Last administered on 03/15/17 20:58; Admin Dose 650 MG; Start 01/26/17 at 09:00 Metoprolol Tartrate (Lopressor) 2.5 mg Q4H PRN IV HR > 110 Last administered on 02/23/17 03:58; Admin Dose 2.5 MG; Start 01/26/17 at 15:00 Midodrine (Proamatine) 5 mg Q8 PRN GTB BLOOD PRESSURE SUPPORT Last administered on 03/07/17 08:04; Admin Dose 5 MG; Start 01/28/17 at 16:30 Nystatin (Nystatin Powder) 1 applic BID TOP Last administered on 03/16/17 09: 03; Admin Dose 1 APPLIC; Start 02/04/17 at 12:00 Eye Lubricant (Artificial Tears Oph) 2 drop Q6H PRN BOTH EYES DRY EYES Last administered on 03/16/17 09:02; Admin Dose 2 DROP; Start 02/13/17 at 15:30 Nystatin (Nystatin Susp) 5 ml QID GTB Last administered on 03/16/17 09:02; Admin Dose 5 ML; Start 02/18/17 at 08:00 Lansoprazole (Prevacid) 30 mg BID@18 GTB Last administered on 03/16/17 06: 07; Admin Dose 30 MG; Start 02/18/17 at 18:00 Apixaban (Eliquis) 5 mg BID GTB Last administered on 03/16/17 09:02; Admin Dose 5 MG; Start 02/22/17 at 22:00 Digoxin (Digoxin) 0.125 mg DAILY@13 PO Last administered on 03/15/17 14:10; Admin Dose 0.125 MG; Start 03/12/17 at 13:00 Atenolol (Tenormin) 12.5 mg BID PO Last administered on 03/16/17 09:03; Admin Dose 12.5 MG; Start 03/12/17 at 21:00 ALCON GIPSON MD Mar 16, 2017 12:25
[2017-03-16] MEDS: DIGOXIN 0.125 MG TAB PO SCH (13:54)
[2017-03-16] MEDS: ACETAMINOPHEN 650MG/20.3ML CUP NGT PRN (13:57)
--- NOTE | 2017-03-16 20:09 | PN ---
Date/Time of Note Date/Time of Note DATE: 03/16/17 TIME: 20:08 Assessment/Plan VTE Prophylaxis VTE Prophylaxis Intervention: other Lines/Catheters IV [facility] ([facility] PICC Line Central line still needed: Yes Urinary Cath still in place: Yes Reason Cath still needed: urinary retention Assessment/Plan Assessment/Plan - Urinary tract infection, continue antibiotics per ID. Dr. Abarca is following in an infection disease consultation. - Gastritis due to H. pylori, continue triple therapy per H. pylori eradication - Possible bleeding from G-tube and hematuria, resolved status post EGD was notion of gastritis, continue Protonix. - Bilateral thalamic infarctions. - Dysphagia, status post G-tube placement by Dr. Garcia. - Atrial fibrillation with rapid ventricular response. Dr. Armenta is following and cardiology consultation. Continue Eliquis. - Thrombosis of the bilateral cephalic veins. - Acute kidney injury, resolved. - History of CVA - History of hyperlipidemia dw dr Valdovinos/staff Exam/Review of Systems Vital Signs Vitals Vital Signs Date Time Temp Pulse Resp B/P Pulse Ox O2 Delivery O2 Flow Rate FiO2 03/16/17 16:25 68 121/60 03/16/17 15:53 97.6 18 100 03/16/17 13:42 21 03/13/17 14:40 Nasal Cannula Intake and Output 03/15/17 03/15/17 03/16/17 14:59 22:59 06:59 Intake Total 1120 ml 687 ml Output Total 950 ml 800 ml Balance 170 ml -113 ml Exam Constitutional: alert Psych: nl mood/affect ( ) Respiratory: clear to auscultation, normal air movement Cardiovascular: nl pulses Gastrointestinal: non-tender, soft Musculoskeletal: nl extremities to inspection Extremities: normal pulses Neurological: confused, other (follows simple commands) Results Result Diagram: 03/15/17 0707 03/15/17 0707 Medications Medications Current Medications Miscellaneous Information 1 ea NOTE XX ; Start 01/17/17 at 10:00 Glucose (Glutose) 15 gm Q15M PRN PO DECREASED GLUCOSE; Start 01/17/17 at 10:00 Glucose (Glutose) 22.5 gm Q15M PRN PO DECREASED GLUCOSE; Start 01/17/17 at 10: 00 Dextrose (D50w Syringe) 25 ml Q15M PRN IV DECREASED GLUCOSE; Start 01/17/17 at 10:00 Dextrose (D50w Syringe) 50 ml Q15M PRN IV DECREASED GLUCOSE; Start 01/17/17 at 10:00 Glucagon (Glucagen) 1 mg Q15M PRN IM DECREASED GLUCOSE; Start 01/17/17 at 10:00 Glucose (Glutose) 15 gm Q15M PRN BUCCAL DECREASED GLUCOSE; Start 01/17/17 at 10 :00 Collagenase (Santyl) 1 applic DAILY TOP Last administered on 03/16/17 09:04; Admin Dose 1 APPLIC; Start 01/17/17 at 21:00 IV Flush (NS 10 ml) 10 ml PRN PRN IV IV PROTOCOL Last administered on 21:45; Admin Dose 10 ML; Start 01/22/17 at 12:00 Miscellaneous Information (Pending Santyl Order For Wound Care) This patient dunaway... PRN PRN XX WOUND CARE; Start 01/24/17 at 07:30 Bisacodyl (Dulcolax Supp) 10 mg DAILY PRN [place] CONSTIPATION Last administered on 02/24/17 15:02; Admin Dose 10 MG; Start 01/25/17 at 16:30 Acetaminophen (Tylenol Liquid) 650 mg Q4H PRN NGT PAIN AND OR ELEVATED TEMP Last administered on 03/16/17 13:57; Admin Dose 650 MG; Start 01/26/17 at 09:00 Metoprolol Tartrate (Lopressor) 2.5 mg Q4H PRN IV HR > 110 Last administered on 02/23/17 03:58; Admin Dose 2.5 MG; Start 01/26/17 at 15:00 Midodrine (Proamatine) 5 mg Q8 PRN GTB BLOOD PRESSURE SUPPORT Last administered on 03/07/17 08:04; Admin Dose 5 MG; Start 01/28/17 at 16:30 Nystatin (Nystatin Powder) 1 applic BID TOP Last administered on 03/16/17 09: 03; Admin Dose 1 APPLIC; Start 02/04/17 at 12:00 Eye Lubricant (Artificial Tears Oph) 2 drop Q6H PRN BOTH EYES DRY EYES Last administered on 03/16/17 09:02; Admin Dose 2 DROP; Start 02/13/17 at 15:30 Nystatin (Nystatin Susp) 5 ml QID GTB Last administered on 03/16/17 17:01; Admin Dose 5 ML; Start 02/18/17 at 08:00 Lansoprazole (Prevacid) 30 mg BID@06,18 GTB Last administered on 03/16/17 17: 01; Admin Dose 30 MG; Start 02/18/17 at 18:00 Apixaban (Eliquis) 5 mg BID GTB Last administered on 03/16/17 09:02; Admin Dose 5 MG; Start 02/22/17 at 22:00 Digoxin (Digoxin) 0.125 mg DAILY@13 PO Last administered on 03/16/17 13:54; Admin Dose 0.125 MG; Start 03/12/17 at 13:00 Atenolol (Tenormin) 12.5 mg BID PO Last administered on 03/16/17 09:03; Admin Dose 12.5 MG; Start 03/12/17 at 21:00 ALEXIS NAJERA Mar 16, 2017 20:09
--- NOTE | 2017-03-16 20:10 | PN ---
Date/Time of Note Date/Time of Note DATE: 03/16/17 TIME: 20:09 Assessment/Plan VTE Prophylaxis VTE Prophylaxis Intervention: other Lines/Catheters [facility] Type [facility] P[facility] Line Central line still needed: Yes Urinary Cath still in place: Yes Reason Cath still needed: urinary retention Assessment/Plan Assessment/Plan - Urinary tract infection, continue antibiotics per ID. Dr. Abarca is following in an infection disease consultation. - Gastritis due to H. pylori, continue triple therapy per H. pylori eradication - Possible bleeding from G-tube and hematuria, resolved status post EGD was notion of gastritis, continue Protonix. - Bilateral thalamic infarctions. - Dysphagia, status post G-tube placement by Dr. Garcia. - Atrial fibrillation with rapid ventricular response. Dr. Armenta is following and cardiology consultation. Continue Eliquis. - Thrombosis of the bilateral cephalic veins. - Acute kidney injury, resolved. - History of CVA - History of hyperlipidemia dw dr Valdovinos/staff Subjective 24 Hr Interval Summary Constitutional: requiring O2 Respiratory: no complaints Cardiovascular: no complaints Gastrointestinal: no complaints Musculoskeletal: no complaints Exam/Review of Systems Vital Signs Vitals Vital Signs Date Time Temp Pulse Resp B/P Pulse Ox O2 Delivery O2 Flow Rate FiO2 03/16/17 16:25 68 121/60 03/16/17 15:53 97.6 18 100 03/16/17 13:42 21 03/13/17 14:40 Nasal Cannula Intake and Output 03/15/17 03/15/17 03/16/17 14:59 22:59 06:59 Intake Total 1120 ml 687 ml Output Total 950 ml 800 ml Balance 170 ml -113 ml Exam nad, vss.afebrile, no new events reported overnight Constitutional: alert, well developed Respiratory: clear to auscultation, normal air movement Cardiovascular: nl pulses Gastrointestinal: non-tender, soft Musculoskeletal: nl extremities to inspection Extremities: normal pulses Neurological: confused, other Results Result Diagram: 03/15/17 0707 03/15/17 0707 Medications Medications Current Medications Miscellaneous Information 1 ea NOTE XX ; Start 01/17/17 at 10:00 Glucose (Glutose) 15 gm Q15M PRN PO DECREASED GLUCOSE; Start 01/17/17 at 10:00 Glucose (Glutose) 22.5 gm Q15M PRN PO DECREASED GLUCOSE; Start 01/17/17 at 10: 00 Dextrose (D50w Syringe) 25 ml Q15M PRN IV DECREASED GLUCOSE; Start 01/17/17 at 10:00 Dextrose (D50w Syringe) 50 ml Q15M PRN IV DECREASED GLUCOSE; Start 01/17/17 at 10:00 Glucagon (Glucagen) 1 mg Q15M PRN IM DECREASED GLUCOSE; Start 01/17/17 at 10:00 Glucose (Glutose) 15 gm Q15M PRN BUCCAL DECREASED GLUCOSE; Start 01/17/17 at 10 :00 Collagenase (Santyl) 1 applic DAILY TOP Last administered on 03/16/17 09:04; Admin Dose 1 APPLIC; Start 01/17/17 at 21:00 IV Flush (NS 10 ml) 10 ml PRN PRN IV IV PROTOCOL Last administered on 21:45; Admin Dose 10 ML; Start 01/22/17 at 12:00 Miscellaneous Information (Pending Santyl Order For Wound Care) This patient dunaway... PRN PRN XX WOUND CARE; Start 01/24/17 at 07:30 Bisacodyl (Dulcolax Supp) 10 mg DAILY PRN [place] CONSTIPATION Last administered on 02/24/17 15:02; Admin Dose 10 MG; Start 01/25/17 at 16:30 Acetaminophen (Tylenol Liquid) 650 mg Q4H PRN NGT PAIN AND OR ELEVATED TEMP Last administered on 03/16/17 13:57; Admin Dose 650 MG; Start 01/26/17 at 09:00 Metoprolol Tartrate (Lopressor) 2.5 mg Q4H PRN IV HR > 110 Last administered on 02/23/17 03:58; Admin Dose 2.5 MG; Start 01/26/17 at 15:00 Midodrine (Proamatine) 5 mg Q8 PRN GTB BLOOD PRESSURE SUPPORT Last administered on 03/07/17 08:04; Admin Dose 5 MG; Start 01/28/17 at 16:30 Nystatin (Nystatin Powder) 1 applic BID TOP Last administered on 03/16/17 09: 03; Admin Dose 1 APPLIC; Start 02/04/17 at 12:00 Eye Lubricant (Artificial Tears Oph) 2 drop Q6H PRN BOTH EYES DRY EYES Last administered on 03/16/17 09:02; Admin Dose 2 DROP; Start 02/13/17 at 15:30 Nystatin (Nystatin Susp) 5 ml QID GTB Last administered on 03/16/17 17:01; Admin Dose 5 ML; Start 02/18/17 at 08:00 Lansoprazole (Prevacid) 30 mg BID@06,18 GTB Last administered on 03/16/17 17: 01; Admin Dose 30 MG; Start 02/18/17 at 18:00 Apixaban (Eliquis) 5 mg BID GTB Last administered on 03/16/17 09:02; Admin Dose 5 MG; Start 02/22/17 at 22:00 Digoxin (Digoxin) 0.125 mg DAILY@13 PO Last administered on 03/16/17 13:54; Admin Dose 0.125 MG; Start 03/12/17 at 13:00 Atenolol (Tenormin) 12.5 mg BID PO Last administered on 03/16/17 09:03; Admin Dose 12.5 MG; Start 03/12/17 at 21:00 ALEXIS NAJERA Mar 16, 2017 20:10
[2017-03-17] VITALS (9 sets, daily range): BP systolic 91–120; BP diastolic 56–65; PULSE 76–80; RESP 16–20
[2017-03-17] MEDS: LEVALBUTEROL (NEB) 0.63 MG/3 ML AMP HHN SCH ×4 (01:27→20:17)
[2017-03-17] MEDS: LANSOPRAZOLE 30 MG CAP GTB SCH ×2 (06:39→17:11)
[2017-03-17 07:35] LABS: ABNORMAL IP MESSAGE 1; BASOPHIL # 0.1 10^3/ul (0.0-0.1); BASOPHILS % 0.9 % (0.0-2.0); EOSINOPHILS # 0.2 10^3/ul (0.0-0.5); EOSINOPHILS % 2.4 % (0.0-7.0); HEMATOCRIT 34.2 % (37.0-47.0); HEMOGLOBIN 10.7 g/dl (12.0-16.0); LYMPHOCYTES # 1.2 10^3/ul (0.8-2.9); LYMPHOCYTES % 11.9 % (15.0-51.0); MEAN CORPUSCULAR HGB CONC 31.3 g/dl (32.0-37.0); MEAN CORPUSCULAR VOLUME 86.1 fl (82.0-101.0); MEAN PLATELET VOLUME 13.2 fl (7.4-10.4); MONOCYTE # 0.8 10^3/ul (0.3-0.9); MONOCYTES % 7.5 % (0.0-11.0); NEUTROPHILS % 76.4 % (39.0-77.0); PLATELET COUNT 303 10^3/UL (140-415); RED BLOOD COUNT 3.97 10^6/ul (4.20-5.40); RED CELL DISTRIBUTION WIDTH 17.1 % (11.5-14.5); WHITE BLOOD COUNT 10.1 10^3/ul (4.8-10.8)
[2017-03-17 07:37] LABS: POSITIVE DIFF @See below
[2017-03-17 07:58] LABS: CALCIUM 9.8 mg/dl (8.4-10.2); CREATININE 0.78 mg/dl (0.44-1.00); POTASSIUM 3.9 mmol/L (3.5-5.1)
[2017-03-17] MEDS: ATENOLOL 25 MG TAB PO SCH ×2 (09:48→21:01)
[2017-03-17] MEDS: NYSTATIN SUSP 5 ML CUP GTB SCH ×4 (09:48→21:00)
[2017-03-17] MEDS: APIXABAN 5 MG TABLET GTB SCH ×2 (09:49→21:03)
[2017-03-17] MEDS: NYSTATIN 30 GM POWDER BTL TOP SCH ×2 (09:50→21:03)
[2017-03-17] MEDS ORDERED: BARIUM SULFATE 135 ML (E-Z HD) PO ONE (10:12)
[2017-03-17] MEDS ORDERED: BARIUM SULFATE 454 GM TUBE (E-Z PASTE) PO ONE (10:12)
--- NOTE | 2017-03-17 12:51 | RADRPT ---
PROCEDURE: Video-fluoroscopy swallowing study. CLINICAL INDICATION: Dysphagia. TECHNIQUE: Fluoroscopic guided video swallowing study was done in conjunction with the speech ther apist. The study was confined to the oral, pharyngeal, and cervical phases of the swallowing mechani sm. 2.4 minutes of fluoroscopy time was used. 22 series of images were obtained. COMPARISON: No prior study is available for comparison. FINDINGS: There is silent aspiration during swallowing with a straw. IMPRESSION: 1. Abnormal study with silent aspiration during swallowing with a straw. 2. Please refer to the speech therapist's recommendations for future feedings. RPTAT: QQ .Catrachito Small MD, MD Date Time Electronically viewed and signed by .Catrachito Small MD, MD on 03/17/2017 12:50 .R/
--- NOTE | 2017-03-17 13:16 | CONS ---
Date/Time of Note Date/Time of Note DATE: 03/17/17 TIME: 13:15 Assessment/Plan Assessment/Plan Chief Complaint/Hosp Course IMP: 1. AF-mainly rate controlled/Trop negative x 3. Had pause x 3.7 seconds 01/30 on standing IVP BB. No recurrence since decrease in IVP BB. Low dose BB as tolerated 2.Hypotension-on midodrine 3.encephalopathy/ams-slowly improving 4.coagulopathy-now on eliquis 5. Acute Renal failure-Now resolved 6.Leukocytosis 7. Cardiomyopathy-EF 45% 8. Cephalic vein thrombosis 9. Dysphagia s/p PEG 10. H Pylori Recc: -Tele -serial ecg's -Cont. Eliquis -Continue low dose BB as tolerated only with atenolol -Continue abx's -Follow MS closely which has had some significant improvement -Continue midodrine for low BP -Continue PPI -Continue PO digoxin -No definite indication for PPM at this time Problems: Consultation Date/Type/Reason Admit Date/Time Jan 16, 2017 at 15:19 Initial Consult Date 01/17/17 Type of Consultation: cardiology Reason for Consultation AF Referring Provider: LAWRENCE PICKERING Exam/Review of Systems Vital Signs Vitals Vital Signs Date Time Temp Pulse Resp B/P Pulse Ox O2 Delivery O2 Flow Rate FiO2 03/17/17 11:34 97.4 91 16 105/59 97 03/17/17 08:18 21 03/13/17 14:40 Nasal Cannula Intake and Output 03/16/17 03/16/17 03/17/17 15:00 23:00 07:00 Intake Total 240 ml 713 ml Output Total 1000 ml 1000 ml Balance -760 ml -287 ml Exam Review of Systems: CONSTITUTIONAL: No fevers, chills. PULMONARY: No sob CARDIOVASCULAR: No chest pain/palpitations GASTROINTESTINAL: No nausea/vomiting. GENITOURINARY: No hematuria/dysuria. MUSCULOSKELETAL: No myagias/arthalgias. PSYCHIATRIC: The patient denies depression. NEUROLOGIC: encephalopathiv Constitutional: other (sleeping, arousable) Psych: no complaints Head: normocephalic ENMT: mucosa pink and moist Neck: jvd (9 cm water), supple Respiratory: diminished breath sounds (at bases/B) Cardiovascular: irregular rhythm Gastrointestinal: non-tender, soft Musculoskeletal: muscle weakness (generalized) Extremities: edema (trace/B) Neurological: confused, lethargic Results Result Diagram: 03/17/17 0647 03/17/17 0655 Results 24 hrs Laboratory Tests Test 03/17/17 06:47 03/17/17 06:55 White Blood Count 10.1 # Red Blood Count 3.97 L Hemoglobin 10.7 L Hematocrit 34.2 L Mean Corpuscular Volume 86.1 Mean Corpuscular Hemoglobin 27.0 L Mean Corpuscular Hemoglobin Concent 31.3 L Red Cell Distribution Width 17.1 H Platelet Count 303 Mean Platelet Volume 13.2 H Neutrophils % 76.4 Lymphocytes % 11.9 L Monocytes % 7.5 Eosinophils % 2.4 Basophils % 0.9 Nucleated Red Blood Cells % 0.0 Neutrophils # (Manual) 7.7 H Lymphocytes # 1.2 Monocytes # 0.8 Eosinophils # 0.2 Basophils # 0.1 Nucleated Red Blood Cells # 0.0 Sodium Level 140 Potassium Level 3.9 Chloride Level 105 Carbon Dioxide Level 26 Anion Gap 13 Blood Urea Nitrogen 21 H Creatinine 0.78 Glucose Level 127 Calcium Level 9.8 Medications Medications Current Medications Miscellaneous Information 1 ea NOTE XX ; Start 01/17/17 at 10:00 Glucose (Glutose) 15 gm Q15M PRN PO DECREASED GLUCOSE; Start 01/17/17 at 10:00 Glucose (Glutose) 22.5 gm Q15M PRN PO DECREASED GLUCOSE; Start 01/17/17 at 10: 00 Dextrose (D50w Syringe) 25 ml Q15M PRN IV DECREASED GLUCOSE; Start 01/17/17 at 10:00 Dextrose (D50w Syringe) 50 ml Q15M PRN IV DECREASED GLUCOSE; Start 01/17/17 at 10:00 Glucagon (Glucagen) 1 mg Q15M PRN IM DECREASED GLUCOSE; Start 01/17/17 at 10:00 Glucose (Glutose) 15 gm Q15M PRN BUCCAL DECREASED GLUCOSE; Start 01/17/17 at 10 :00 Collagenase (Santyl) 1 applic DAILY TOP Last administered on 03/16/17 09:04; Admin Dose 1 APPLIC; Start 01/17/17 at 21:00 IV Flush (NS 10 ml) 10 ml PRN PRN IV IV PROTOCOL Last administered on 21:45; Admin Dose 10 ML; Start 01/22/17 at 12:00 Miscellaneous Information (Pending Santyl Order For Wound Care) This patient dunaway... PRN PRN XX WOUND CARE; Start 01/24/17 at 07:30 Bisacodyl (Dulcolax Supp) 10 mg DAILY PRN [place] CONSTIPATION Last administered on 02/24/17 15:02; Admin Dose 10 MG; Start 01/25/17 at 16:30 Acetaminophen (Tylenol Liquid) 650 mg Q4H PRN NGT PAIN AND OR ELEVATED TEMP Last administered on 03/16/17 13:57; Admin Dose 650 MG; Start 01/26/17 at 09:00 Metoprolol Tartrate (Lopressor) 2.5 mg Q4H PRN IV HR > 110 Last administered on 02/23/17 03:58; Admin Dose 2.5 MG; Start 01/26/17 at 15:00 Midodrine (Proamatine) 5 mg Q8 PRN GTB BLOOD PRESSURE SUPPORT Last administered on 03/07/17 08:04; Admin Dose 5 MG; Start 01/28/17 at 16:30 Nystatin (Nystatin Powder) 1 applic BID TOP Last administered on 03/17/17 09: 50; Admin Dose 1 APPLIC; Start 02/04/17 at 12:00 Eye Lubricant (Artificial Tears Oph) 2 drop Q6H PRN BOTH EYES DRY EYES Last administered on 03/16/17 20:33; Admin Dose 2 DROP; Start 02/13/17 at 15:30 Nystatin (Nystatin Susp) 5 ml QID GTB Last administered on 03/17/17 09:48; Admin Dose 5 ML; Start 02/18/17 at 08:00 Lansoprazole (Prevacid) 30 mg BID@06,18 GTB Last administered on 03/17/17 06: 39; Admin Dose 30 MG; Start 02/18/17 at 18:00 Apixaban (Eliquis) 5 mg BID GTB Last administered on 03/17/17 09:49; Admin Dose 5 MG; Start 02/22/17 at 22:00 Digoxin (Digoxin) 0.125 mg DAILY@13 PO Last administered on 03/16/17 13:54; Admin Dose 0.125 MG; Start 03/12/17 at 13:00 Atenolol (Tenormin) 12.5 mg BID PO Last administered on 03/17/17t 09:48; Admin Dose 12.5 MG; Start 03/12/17 at 21:00 MINOO REY Mar 17, 2017 13:16
[2017-03-17] MEDS: DIGOXIN 0.125 MG TAB PO SCH (13:29)
[2017-03-17] MEDS: COLLAGENASE 30 GM TUBE TOP SCH (13:30)
--- NOTE | 2017-03-17 14:10 | PN ---
Date/Time of Note Date/Time of Note DATE: 03/17/17 TIME: 14:08 Assessment/Plan VTE Prophylaxis VTE Prophylaxis Intervention: other Lines/Catheters IV [facility]ter Type (from [facility]): PICC Line Central line still needed: Yes Urinary Cath still in place: Yes Reason Cath still needed: urinary retention Assessment/Plan Assessment/Plan - Urinary tract infection, continue antibiotics per ID. Dr. Abarca is following in an infection disease consultation. - Gastritis due to H. pylori, continue triple therapy per H. pylori eradication - Possible bleeding from G-tube and hematuria, resolved status post EGD was notion of gastritis, continue Protonix. - Bilateral thalamic infarctions. - Dysphagia, status post G-tube placement by Dr. Garcia. - Atrial fibrillation with rapid ventricular response. Dr. Armenta is following and cardiology consultation. Continue Eliquis. - Thrombosis of the bilateral cephalic veins. - Acute kidney injury, resolved. - History of CVA - History of hyperlipidemia dw dr Valdovinos/staff Subjective 24 Hr Interval Summary Cardiovascular: no complaints Gastrointestinal: no complaints Genitourinary: no complaints Exam/Review of Systems Vital Signs Vitals Vital Signs Date Time Temp Pulse Resp B/P Pulse Ox O2 Delivery O2 Flow Rate FiO2 03/17/17 13:36 97.7 80 18 118/65 97 03/17/17 08:18 21 03/13/17 14:40 Nasal Cannula Intake and Output 03/16/17 03/16/17 03/17/17 15:00 23:00 07:00 Intake Total 240 ml 713 ml Output Total 1000 ml 1000 ml Balance -760 ml -287 ml Exam Constitutional: alert Respiratory: clear to auscultation, normal air movement Cardiovascular: nl pulses, regular rate and rhythm Gastrointestinal: non-tender, soft Extremities: normal pulses Neurological: nl speech Results Result Diagram: 03/17/17 0647 03/17/17 0655 Results 24 hrs Laboratory Tests Test 03/17/17 06:47 03/17/17 06:55 White Blood Count 10.1 # Red Blood Count 3.97 L Hemoglobin 10.7 L Hematocrit 34.2 L Mean Corpuscular Volume 86.1 Mean Corpuscular Hemoglobin 27.0 L Mean Corpuscular Hemoglobin Concent 31.3 L Red Cell Distribution Width 17.1 H Platelet Count 303 Mean Platelet Volume 13.2 H Neutrophils % 76.4 Lymphocytes % 11.9 L Monocytes % 7.5 Eosinophils % 2.4 Basophils % 0.9 Nucleated Red Blood Cells % 0.0 Neutrophils # (Manual) 7.7 H Lymphocytes # 1.2 Monocytes # 0.8 Eosinophils # 0.2 Basophils # 0.1 Nucleated Red Blood Cells # 0.0 Sodium Level 140 Potassium Level 3.9 Chloride Level 105 Carbon Dioxide Level 26 Anion Gap 13 Blood Urea Nitrogen 21 H Creatinine 0.78 Glucose Level 127 Calcium Level 9.8 Medications Medications Current Medications Miscellaneous Information 1 ea NOTE XX ; Start 01/17/17 at 10:00 Glucose (Glutose) 15 gm Q15M PRN PO DECREASED GLUCOSE; Start 01/17/17 at 10:00 Glucose (Glutose) 22.5 gm Q15M PRN PO DECREASED GLUCOSE; Start 01/17/17 at 10: 00 Dextrose (D50w Syringe) 25 ml Q15M PRN IV DECREASED GLUCOSE; Start 01/17/17 at 10:00 Dextrose (D50w Syringe) 50 ml Q15M PRN IV DECREASED GLUCOSE; Start 01/17/17 at 10:00 Glucagon (Glucagen) 1 mg Q15M PRN IM DECREASED GLUCOSE; Start 01/17/17 at 10:00 Glucose (Glutose) 15 gm Q15M PRN BUCCAL DECREASED GLUCOSE; Start 01/17/17 at 10 :00 Collagenase (Santyl) 1 applic DAILY TOP Last administered on 03/17/17 13:30; Admin Dose 1 APPLIC; Start 01/17/17 at 21:00 IV Flush (NS 10 ml) 10 ml PRN PRN IV IV PROTOCOL Last administered on 21:45; Admin Dose 10 ML; Start 01/22/17 at 12:00 Miscellaneous Information (Pending Santyl Order For Wound Care) This patient dunaway... PRN PRN XX WOUND CARE; Start 01/24/17 at 07:30 Bisacodyl (Dulcolax Supp) 10 mg DAILY PRN [place] CONSTIPATION Last administered on 02/24/17 15:02; Admin Dose 10 MG; Start 01/25/17 at 16:30 Acetaminophen (Tylenol Liquid) 650 mg Q4H PRN NGT PAIN AND OR ELEVATED TEMP Last administered on 03/16/17 13:57; Admin Dose 650 MG; Start 01/26/17 at 09:00 Metoprolol Tartrate (Lopressor) 2.5 mg Q4H PRN IV HR > 110 Last administered on 02/23/17 03:58; Admin Dose 2.5 MG; Start 01/26/17 at 15:00 Midodrine (Proamatine) 5 mg Q8 PRN GTB BLOOD PRESSURE SUPPORT Last administered on 03/07/17 08:04; Admin Dose 5 MG; Start 01/28/17 at 16:30 Nystatin (Nystatin Powder) 1 applic BID TOP Last administered on 03/17/17 09: 50; Admin Dose 1 APPLIC; Start 02/04/17 at 12:00 Eye Lubricant (Artificial Tears Oph) 2 drop Q6H PRN BOTH EYES DRY EYES Last administered on 03/16/17 20:33; Admin Dose 2 DROP; Start 02/13/17 at 15:30 Nystatin (Nystatin Susp) 5 ml QID GTB Last administered on 03/17/17 13:29; Admin Dose 5 ML; Start 02/18/17 at 08:00 Lansoprazole (Prevacid) 30 mg BID@06,18 GTB Last administered on 03/17/17 06: 39; Admin Dose 30 MG; Start 02/18/17 at 18:00 Apixaban (Eliquis) 5 mg BID GTB Last administered on 03/17/17 09:49; Admin Dose 5 MG; Start 02/22/17 at 22:00 Digoxin (Digoxin) 0.125 mg DAILY@13 PO Last administered on 03/17/17 13:29; Admin Dose 0.125 MG; Start 03/12/17 at 13:00 Atenolol (Tenormin) 12.5 mg BID PO Last administered on 03/17/17 09:48; Admin Dose 12.5 MG; Start 03/12/17 at 21:00 ALEXIS NAJERA Mar 17, 2017 14:10
[2017-03-17] MEDS: ACETAMINOPHEN 650MG/20.3ML CUP NGT PRN (21:08)
[2017-03-18] VITALS (13 sets, daily range): BP systolic 86–183; BP diastolic 50–93; PULSE 60–97; RESP 17–20
[2017-03-18] MEDS: LEVALBUTEROL (NEB) 0.63 MG/3 ML AMP HHN SCH ×4 (01:45→19:25)
--- NOTE | 2017-03-18 04:11 | RADRPT ---
PROCEDURE: CT Brain without contrast. CLINICAL INDICATION: Altered level of consciousness TECHNIQUE: A CT of the brain was performed utilizing axial imaging from the skull base through the vertex without intravenous contrast. Multiplanar reformatted images were made.The CTDIvol is 45.01 mGy and the DLP is 720.23 mGycm. One or more the following dose reduction techniques were utilized: Automated exposure control, adjus tment of the mA and / or kV according to patient's size, or use of iterative reconstruction techniqu e. COMPARISON: CT brain 01/16/2017 and MRI brain of 01/29/2017 FINDINGS: There is no intracranial hemorrhage, mass effect, or midline shift. No extra-axial fluid collection is seen. Mild atrophy is identified with compensatory ventricular and sulcal enlargement. Minimal decreased attenuation is seen in the periventricular and deep white matter, compatible with microva scular ischemic disease. The yip white matter differentiation is well preserved with no acute infar ct detected. No skull fracture seen. There is approximate 1.2 cm area of soft tissue density in the visualized right sphenoid sinus likely inflammatory again seen. IMPRESSION: 1. No evidence of acute intracranial pathology. 2. Mild diffuse atrophy. 3. There is minimal microvascular ischemic disease in the periventricular and deep white matter. 4. No significant change compared to previous study. RPTAT: HJES .Jamil Ford MD, Date Time Electronically viewed and signed by .Jamil Ford MD, on 03/18/2017 04:11 .S/
[2017-03-18] MEDS: LANSOPRAZOLE 30 MG CAP GTB SCH ×2 (05:52→17:20)
[2017-03-18 07:02] LABS: BASOPHIL # 0.1 10^3/ul (0.0-0.1); BASOPHILS % 0.7 % (0.0-2.0); EOSINOPHILS # 0.2 10^3/ul (0.0-0.5); EOSINOPHILS % 2.1 % (0.0-7.0); HEMATOCRIT 34.9 % (37.0-47.0); HEMOGLOBIN 11.1 g/dl (12.0-16.0); LYMPHOCYTES # 0.9 10^3/ul (0.8-2.9); MEAN CORPUSCULAR HEMOGLOBIN 27.5 pg (29.0-33.0); MEAN CORPUSCULAR HGB CONC 31.8 g/dl (32.0-37.0); MEAN CORPUSCULAR VOLUME 86.4 fl (82.0-101.0); MEAN PLATELET VOLUME 12.6 fl (7.4-10.4); MONOCYTE # 0.8 10^3/ul (0.3-0.9); MONOCYTES % 7.6 % (0.0-11.0); NEUTROPHIL # 8.2 10^3/ul (1.6-7.5); NEUTROPHILS % 79.8 % (39.0-77.0); PLATELET COUNT 308 10^3/UL (140-415); RED BLOOD COUNT 4.04 10^6/ul (4.20-5.40); RED CELL DISTRIBUTION WIDTH 16.8 % (11.5-14.5); WHITE BLOOD COUNT 10.3 10^3/ul (4.8-10.8)
[2017-03-18 07:25] LABS: CALCIUM 10.1 mg/dl (8.4-10.2); CREATININE 0.77 mg/dl (0.44-1.00); POTASSIUM 3.8 mmol/L (3.5-5.1)
[2017-03-18] MEDS: ATENOLOL 25 MG TAB PO SCH ×2 (09:00→21:00)
[2017-03-18] MEDS: NYSTATIN SUSP 5 ML CUP GTB SCH ×4 (09:00→21:16)
[2017-03-18] MEDS: APIXABAN 5 MG TABLET GTB SCH ×2 (09:11→21:16)
[2017-03-18] MEDS: COLLAGENASE 30 GM TUBE TOP SCH (09:13)
[2017-03-18] MEDS: NYSTATIN 30 GM POWDER BTL TOP SCH ×2 (09:14→21:15)
[2017-03-18] MEDS: ACETAMINOPHEN 650MG/20.3ML CUP NGT PRN (10:42)
[2017-03-18] MEDS: DIGOXIN 0.125 MG TAB PO SCH (13:10)
--- NOTE | 2017-03-18 14:53 | PN ---
Date/Time of Note Date/Time of Note DATE: 03/18/17 TIME: 14:23 Assessment/Plan VTE Prophylaxis VTE Prophylaxis Intervention: other Lines/Catheters IV C[facility]ter Type (from [facility]): Peripheral IV Urinary Cath still in place: Yes Reason Cath still needed: urinary retention Assessment/Plan Assessment/Plan - Altered Mental Status- - MRI-stat -We will order EEG -Neurology consult- notified - Urinary tract infection, continue antibiotics per ID. Dr. Abarca is following in an infection disease consultation. - Gastritis due to H. pylori, continue triple therapy per H. pylori eradication - Possible bleeding from G-tube and hematuria, resolved status post EGD was notion of gastritis, continue Protonix. - Bilateral thalamic infarctions. - Dysphagia, status post G-tube placement by Dr. Garcia. - Atrial fibrillation with rapid ventricular response. Dr. Armenta is following and cardiology consultation. Continue Eliquis. - Thrombosis of the bilateral cephalic veins. - Acute kidney injury, resolved. - History of CVA - History of hyperlipidemia dw dr Valdovinos/staff Subjective 24 Hr Interval Summary Free Text/Dictation lethargic- today, afebrile, will do MRI - fu results. dw staff Subjective hx not possible: pt non-verbal Constitutional: requiring O2 Exam/Review of Systems Vital Signs Vitals Vital Signs Date Time Temp Pulse Resp B/P Pulse Ox O2 Delivery O2 Flow Rate FiO2 03/18/17 12:03 76 03/18/17 11:01 98.0 18 88/62 98 03/18/17 03:15 Room Air 03/18/17 01:46 21 Intake and Output 03/17/17 03/17/17 03/18/17 15:00 23:00 07:00 Intake Total 770 ml 650 ml Output Total 900 ml 900 ml Balance -130 ml -250 ml Exam Constitutional: non-verbal, well developed Respiratory: clear to auscultation, normal air movement Cardiovascular: nl pulses, regular rate and rhythm Gastrointestinal: non-tender, soft Musculoskeletal: nl extremities to inspection Extremities: normal pulses Neurological: lethargic Results Result Diagram: 03/18/17 0616 03/18/17 0616 Results 24 hrs Laboratory Tests Test 03/18/17 03:10 03/18/17 04:16 03/18/17 06:16 Bedside Glucose 122 127 White Blood Count 10.3 Red Blood Count 4.04 L Hemoglobin 11.1 L Hematocrit 34.9 L Mean Corpuscular Volume 86.4 Mean Corpuscular Hemoglobin 27.5 L Mean Corpuscular Hemoglobin Concent 31.8 L Red Cell Distribution Width 16.8 H Platelet Count 308 Mean Platelet Volume 12.6 H Neutrophils % 79.8 H Lymphocytes % 9.0 L Monocytes % 7.6 Eosinophils % 2.1 Basophils % 0.7 Nucleated Red Blood Cells % 0.0 Neutrophils # 8.2 H Lymphocytes # 0.9 Monocytes # 0.8 Eosinophils # 0.2 Basophils # 0.1 Nucleated Red Blood Cells # 0.0 Sodium Level 141 Potassium Level 3.8 Chloride Level 106 Carbon Dioxide Level 27 Anion Gap 12 Blood Urea Nitrogen 21 H Creatinine 0.77 Glucose Level 100 Calcium Level 10.1 Medications Medications Current Medications Miscellaneous Information 1 ea NOTE XX ; Start 01/17/17 at 10:00 Glucose (Glutose) 15 gm Q15M PRN PO DECREASED GLUCOSE; Start 01/17/17 at 10:00 Glucose (Glutose) 22.5 gm Q15M PRN PO DECREASED GLUCOSE; Start 01/17/17 at 10: 00 Dextrose (D50w Syringe) 25 ml Q15M PRN IV DECREASED GLUCOSE; Start 01/17/17 at 10:00 Dextrose (D50w Syringe) 50 ml Q15M PRN IV DECREASED GLUCOSE; Start 01/17/17 at 10:00 Glucagon (Glucagen) 1 mg Q15M PRN IM DECREASED GLUCOSE; Start 01/17/17 at 10:00 Glucose (Glutose) 15 gm Q15M PRN BUCCAL DECREASED GLUCOSE; Start 01/17/17 at 10 :00 Collagenase (Santyl) 1 applic DAILY TOP Last administered on 03/18/17 09:13; Admin Dose 1 APPLIC; Start 01/17/17 at 21:00 IV Flush (NS 10 ml) 10 ml PRN PRN IV IV PROTOCOL Last administered on 21:45; Admin Dose 10 ML; Start 01/22/17 at 12:00 Miscellaneous Information (Pending Santyl Order For Wound Care) This patient dunaway... PRN PRN XX WOUND CARE; Start 01/24/17 at 07:30 Bisacodyl (Dulcolax Supp) 10 mg DAILY PRN [place] CONSTIPATION Last administered on 02/24/17 15:02; Admin Dose 10 MG; Start 01/25/17 at 16:30 Acetaminophen (Tylenol Liquid) 650 mg Q4H PRN NGT PAIN AND OR ELEVATED TEMP Last administered on 03/18/17 10:42; Admin Dose 650 MG; Start 01/26/17 at 09:00 Metoprolol Tartrate (Lopressor) 2.5 mg Q4H PRN IV HR > 110 Last administered on 02/23/17 03:58; Admin Dose 2.5 MG; Start 01/26/17 at 15:00 Midodrine (Proamatine) 5 mg Q8 PRN GTB BLOOD PRESSURE SUPPORT Last administered on 03/07/17 08:04; Admin Dose 5 MG; Start 01/28/17 at 16:30 Nystatin (Nystatin Powder) 1 applic BID TOP Last administered on 03/18/17 09: 14; Admin Dose 1 APPLIC; Start 02/04/17 at 12:00 Eye Lubricant (Artificial Tears Oph) 2 drop Q6H PRN BOTH EYES DRY EYES Last administered on 03/16/17 20:33; Admin Dose 2 DROP; Start 02/13/17 at 15:30 Nystatin (Nystatin Susp) 5 ml QID GTB Last administered on 03/17/17 21:00; Admin Dose 5 ML; Start 02/18/17 at 08:00 Lansoprazole (Prevacid) 30 mg BID@06,18 GTB Last administered on 03/18/17 05: 52; Admin Dose 30 MG; Start 02/18/17 at 18:00 Apixaban (Eliquis) 5 mg BID GTB Last administered on 03/18/17 09:11; Admin Dose 5 MG; Start 02/22/17 at 22:00 Digoxin (Digoxin) 0.125 mg DAILY@13 PO Last administered on 03/18/17 13:10; Admin Dose 0.125 MG; Start 03/12/17 at 13:00 Atenolol (Tenormin) 12.5 mg BID PO Last administered on 03/17/17 21:01; Admin Dose 12.5 MG; Start 03/12/17 at 21:00 ALEXIS NAJERA Mar 18, 2017 14:39
--- NOTE | 2017-03-18 18:35 | RADRPT ---
PROCEDURE: MRI Brain without contrast. CLINICAL INDICATION: Altered mental status. TECHNIQUE: An MRI of the brain was performed utilizing the following sequences: Sagittal and axial T1 weighted, axial T2 weighted, axial diffusion weighted with ADC mapping, coronal GRE, and axial F LAIR. COMPARISON: Brain MRI 01/29/2017. FINDINGS: No diffusion weighted abnormalities are seen to suggest the presence of acute ischemia or recent inf arct. No hypointense signal abnormalities are seen on the GRE images to suggest the presence of blo od degradation products. There is no evidence of intracranial hemorrhage, mass effect, or midline s hift. No extra-axial fluid collections are seen. The ventricles and sulci are mildly enlarged indica tive of volume loss. Sequela of old infarct is noted in medial bilateral thalami, cerebral peduncles, periaqueductal midb rain and caroline. There are mild scattered foci of T2 FLAIR hyperintensity in the periventricular, deep, and subcortic al white matter, which are nonspecific in etiology but likely reflect chronic small vessel ischemic changes. No abnormal intracranial vascular flow void is noted. The visualized paranasal sinuses are grossly clear. IMPRESSION: 1. No acute intracranial hemorrhage, infarction or mass. 2. Mild chronic small vessel ischemic changes. 3. Sequela of old infarcts in medial bilateral thalami, cerebral peduncles, periaqueductal midbrain and caroline. 4. Mild generalized cerebral volume loss. RPTAT: HH .Lashae Salmeron MD, MD Date Time Electronically viewed and signed by .Lashae Salmeron MD, MD on 03/18/2017 18:35 .N/
--- NOTE | 2017-03-18 19:30 | CONS ---
Date/Time of Note Date/Time of Note DATE: 03/18/17 TIME: 19:28 Assessment/Plan Assessment/Plan Chief Complaint/Hosp Course IMP: 1. AF-mainly rate controlled/Trop negative x 3. Had pause x 3.7 seconds 01/30 on standing IVP BB. Now back in tele 2.Hypotension-on midodrine 3.encephalopathy/ams-slowly improving 4.coagulopathy-now on eliquis 5. Acute Renal failure-Now resolved 6.Leukocytosis 7. Cardiomyopathy-EF 45% 8. Cephalic vein thrombosis 9. Dysphagia s/p PEG 10. H Pylori Recc: -Now back on tele -serial ecg's -Cont. Eliquis -Continue low dose BB as tolerated only with atenolol -Continue abx's -Follow MS closely which has had some significant improvement -Continue midodrine for low BP and will increase given low BP -IVF bolus -Continue PPI -Continue PO digoxin -No definite indication for PPM at this time Problems: Consultation Date/Type/Reason Admit Date/Time Jan 16, 2017 at 15:19 Initial Consult Date 01/17/17 Type of Consultation: cardiology Reason for Consultation 03/18/2017 Referring Provider: LAWRENCE PICKERING Exam/Review of Systems Vital Signs Vitals Vital Signs Date Time Temp Pulse Resp B/P Pulse Ox O2 Delivery O2 Flow Rate FiO2 03/18/17 16:00 90 03/18/17 15:44 98.0 18 112/55 98 03/18/17 15:15 21 03/18/17 03:15 Room Air Intake and Output 03/17/17 03/17/17 03/18/17 15:00 23:00 07:00 Intake Total 770 ml 650 ml Output Total 900 ml 900 ml Balance -130 ml -250 ml Exam Review of Systems: CONSTITUTIONAL: No fevers, chills. PULMONARY: No sob CARDIOVASCULAR: No chest pain/palpitations GASTROINTESTINAL: No nausea/vomiting. GENITOURINARY: No hematuria/dysuria. MUSCULOSKELETAL: No myagias/arthalgias. PSYCHIATRIC: The patient denies depression. NEUROLOGIC: No weakness Constitutional: alert, oriented Psych: no complaints ENMT: mucosa pink and moist Neck: jvd (9 cm water), supple Respiratory: diminished breath sounds (at bases/B) Cardiovascular: regular rate and rhythm Gastrointestinal: non-tender, soft Musculoskeletal: muscle weakness (generalized) Extremities: edema (none) Neurological: confused Results Result Diagram: 03/18/17 0616 03/18/17 0616 Results 24 hrs Laboratory Tests Test 03/18/17 03:10 03/18/17 04:16 03/18/17 06:16 Bedside Glucose 122 127 White Blood Count 10.3 Red Blood Count 4.04 L Hemoglobin 11.1 L Hematocrit 34.9 L Mean Corpuscular Volume 86.4 Mean Corpuscular Hemoglobin 27.5 L Mean Corpuscular Hemoglobin Concent 31.8 L Red Cell Distribution Width 16.8 H Platelet Count 308 Mean Platelet Volume 12.6 H Neutrophils % 79.8 H Lymphocytes % 9.0 L Monocytes % 7.6 Eosinophils % 2.1 Basophils % 0.7 Nucleated Red Blood Cells % 0.0 Neutrophils # 8.2 H Lymphocytes # 0.9 Monocytes # 0.8 Eosinophils # 0.2 Basophils # 0.1 Nucleated Red Blood Cells # 0.0 Sodium Level 141 Potassium Level 3.8 Chloride Level 106 Carbon Dioxide Level 27 Anion Gap 12 Blood Urea Nitrogen 21 H Creatinine 0.77 Glucose Level 100 Calcium Level 10.1 Medications Medications Current Medications Miscellaneous Information 1 ea NOTE XX ; Start 01/17/17 at 10:00 Glucose (Glutose) 15 gm Q15M PRN PO DECREASED GLUCOSE; Start 01/17/17 at 10:00 Glucose (Glutose) 22.5 gm Q15M PRN PO DECREASED GLUCOSE; Start 01/17/17 at 10: 00 Dextrose (D50w Syringe) 25 ml Q15M PRN IV DECREASED GLUCOSE; Start 01/17/17 at 10:00 Dextrose (D50w Syringe) 50 ml Q15M PRN IV DECREASED GLUCOSE; Start 01/17/17 at 10:00 Glucagon (Glucagen) 1 mg Q15M PRN IM DECREASED GLUCOSE; Start 01/17/17 at 10:00 Glucose (Glutose) 15 gm Q15M PRN BUCCAL DECREASED GLUCOSE; Start 01/17/17 at 10 :00 Collagenase (Santyl) 1 applic DAILY TOP Last administered on 03/18/17 09:13; Admin Dose 1 APPLIC; Start 01/17/17 at 21:00 IV Flush (NS 10 ml) 10 ml PRN PRN IV IV PROTOCOL Last administered on 21:45; Admin Dose 10 ML; Start 01/22/17 at 12:00 Miscellaneous Information (Pending Santyl Order For Wound Care) This patient dunaway... PRN PRN XX WOUND CARE; Start 01/24/17 at 07:30 Bisacodyl (Dulcolax Supp) 10 mg DAILY PRN [place] CONSTIPATION Last administered on 02/24/17 15:02; Admin Dose 10 MG; Start 01/25/17 at 16:30 Acetaminophen (Tylenol Liquid) 650 mg Q4H PRN NGT PAIN AND OR ELEVATED TEMP Last administered on 03/18/17 10:42; Admin Dose 650 MG; Start 01/26/17 at 09:00 Metoprolol Tartrate (Lopressor) 2.5 mg Q4H PRN IV HR > 110 Last administered on 02/23/17 03:58; Admin Dose 2.5 MG; Start 01/26/17 at 15:00 Midodrine (Proamatine) 5 mg Q8 PRN GTB BLOOD PRESSURE SUPPORT Last administered on 03/07/17 08:04; Admin Dose 5 MG; Start 01/28/17 at 16:30 Nystatin (Nystatin Powder) 1 applic BID TOP Last administered on 03/18/17 09: 14; Admin Dose 1 APPLIC; Start 02/04/17 at 12:00 Eye Lubricant (Artificial Tears Oph) 2 drop Q6H PRN BOTH EYES DRY EYES Last administered on 03/16/17 20:33; Admin Dose 2 DROP; Start 02/13/17 at 15:30 Nystatin (Nystatin Susp) 5 ml QID GTB Last administered on 03/17/17 21:00; Admin Dose 5 ML; Start 02/18/17 at 08:00 Lansoprazole (Prevacid) 30 mg BID@06,18 GTB Last administered on 03/18/17 17: 20; Admin Dose 30 MG; Start 02/18/17 at 18:00 Apixaban (Eliquis) 5 mg BID GTB Last administered on 03/18/17 09:11; Admin Dose 5 MG; Start 02/22/17 at 22:00 Digoxin (Digoxin) 0.125 mg DAILY@13 PO Last administered on 03/18/17 13:10; Admin Dose 0.125 MG; Start 03/12/17 at 13:00 Atenolol (Tenormin) 12.5 mg BID PO Last administered on 03/17/17t 21:01; Admin Dose 12.5 MG; Start 03/12/17 at 21:00 MINOO REY Mar 18, 2017 19:30
[2017-03-18] MEDS ORDERED: SOD CHLORIDE 0.9% 500 ML IV ONE (20:00)
[2017-03-18] MEDS: MIDODRINE 5 MG TAB GTB PRN (21:22)
[2017-03-19] VITALS (11 sets, daily range): BP systolic 101–135; BP diastolic 51–66; PULSE 89–113; RESP 16–18
[2017-03-19] MEDS: LEVALBUTEROL (NEB) 0.63 MG/3 ML AMP HHN SCH ×4 (01:37→19:53)
--- NOTE | 2017-03-19 03:47 | CONS ---
DATE OF ADMISSION: 01/16/2017 DATE OF CONSULTATION: 03/18/2017 REASON FOR CONSULTATION: Evaluation for transient unresponsiveness last night associated with low BP per family HISTORY OF PRESENT ILLNESS: He patient was admitted to the hospital on 01/16/2017 with bilateral thalamic strokes. She has a history of atrial fibrillation, acute renal insufficiency, hypertension, strokes in the past, DVTs, and she was off Coumadin on admission. The patient's family at bedside stated that overall her condition is improved. She is able to move extremities and converse. Most recent acute problems includes urinary tract infection, gastritis, dysphagia status post G tube, atrial fibrillation on Eliquis. PMHx as above CURRENT MEDICATIONS: 1. Lopressor. 2. eloquis 3. Digoxin. 4. The patient was started on midodrine secondary to low blood pressure. 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 SOCIAL HISTORY: No alcohol, tobacco, or drug use. FAMILY HISTORY: Not contributory. DIAGNOSTICS: The patient had a CAT scan and MRI today, which shows absence of acute abnormality, suggests old infarcts in bilateral thalami, also caroline, peduncle area of the mid brain but not acute CVA CAT scan also did not show any acute abnormalities. Initially upon admission, the patient was given Keppra but no seizures were observed, EEG did not show any epileptiform activity but generalized slowing, and Keppra was discontinued more than a month ago. PHYSICAL EXAMINATION: VITALS: Today, temperature 97.8, pulse 66, respiration 17, blood pressure 87/52. GENERAL: Not in acute distress, lying in bed. HEENT: Normocephalic and atraumatic head. No carotid bruits. No thyromegaly. LUNGS: Clear to auscultation bilaterally. CARDIAC: Irregularly irregular rhythm. ABDOMEN: Soft. EXTREMITIES: No cyanosis, clubbing, or edema. NEURO: She is awake with fluent speech. Oriented x1 only. According to the family, she is able to recognize family members. Sometimes she is more oriented and at times slightly less. Cranial nerve examination shows intact visual helms. Pupils are about 3 mm bilaterally. Extraocular movements are intact. The patient has divergent strabismus with left eye exotropia. Essentially symmetrical face. Preserved facial strength. Corneal reflexes present bilaterally as well as gag. Motor strength examination shows generalized weakness about 3+/5, maybe even slightly better, slightly increase tone in upper extremities. Also, left leg seemed to be little bit weaker compared to the right. Sensory examination is grossly intact to light touch and pain. Deep tendon reflexes are 2+ in the upper extremities and knees. Absent ankle jerks. Upgoing toes bilaterally. Coordination shows mild dysmetria that was related to weakness in bilateral upper extremities on [id number] testing but slightly more pronounced on the right. LABORATORY: She is anemic. Hemoglobin 11, hematocrit 35, normal WBCs and platelets. Chemistry, BUN 21, creatinine 0.727, normal basic metabolic panel, otherwise. Last urinalysis was done essentially months ago. IMPRESSION: Transient encephalopathy. According to family members, usually it is related to low blood pressure. Underwater Trapper is on case adjusting medications. Keep patient normotensive and euglycemic. Continue anticoagulation given patient's history of atrial fibrillation. EEG was requested. I will review when done, though no definite seizures per history. The patient also has a urinary tract infection. ID service is on the case. Continue current treatment. Thank you very much for this interesting consultation. Dictated By: Magdiel Ramirez MD /ange/israel /Document#: [id number] STEW
[2017-03-19] MEDS: LANSOPRAZOLE 30 MG CAP GTB SCH ×2 (05:48→18:17)
[2017-03-19 07:50] LABS: ABNORMAL IP MESSAGE 1; BASOPHIL # 0.1 10^3/ul (0.0-0.1); BASOPHILS % 0.7 % (0.0-2.0); EOSINOPHILS # 0.2 10^3/ul (0.0-0.5); EOSINOPHILS % 1.4 % (0.0-7.0); HEMATOCRIT 34.6 % (37.0-47.0); LYMPHOCYTES # 1.1 10^3/ul (0.8-2.9); LYMPHOCYTES % 10.4 % (15.0-51.0); MEAN CORPUSCULAR HEMOGLOBIN 27.3 pg (29.0-33.0); MEAN CORPUSCULAR HGB CONC 31.8 g/dl (32.0-37.0); MEAN CORPUSCULAR VOLUME 85.9 fl (82.0-101.0); MEAN PLATELET VOLUME 13.3 fl (7.4-10.4); MONOCYTE # 0.6 10^3/ul (0.3-0.9); MONOCYTES % 5.9 % (0.0-11.0); NEUTROPHIL # 8.6 10^3/ul (1.6-7.5); NEUTROPHILS % 80.8 % (39.0-77.0); PLATELET COUNT 319 10^3/UL (140-415); RED BLOOD COUNT 4.03 10^6/ul (4.20-5.40); RED CELL DISTRIBUTION WIDTH 16.5 % (11.5-14.5); WHITE BLOOD COUNT 10.6 10^3/ul (4.8-10.8)
[2017-03-19 07:53] LABS: POSITIVE DIFF @See below
[2017-03-19 08:20] LABS: CALCIUM 9.7 mg/dl (8.4-10.2); CREATININE 0.75 mg/dl (0.44-1.00); POTASSIUM 4.2 mmol/L (3.5-5.1)
[2017-03-19] MEDS: COLLAGENASE 30 GM TUBE TOP SCH (09:00)
[2017-03-19] MEDS: NYSTATIN 30 GM POWDER BTL TOP SCH ×2 (09:27→20:52)
[2017-03-19] MEDS: APIXABAN 5 MG TABLET GTB SCH ×2 (09:43→20:50)
[2017-03-19] MEDS: NYSTATIN SUSP 5 ML CUP GTB SCH ×4 (09:43→20:50)
[2017-03-19] MEDS: ATENOLOL 25 MG TAB PO SCH ×2 (09:44→20:52)
[2017-03-19] MEDS: ACETAMINOPHEN 650MG/20.3ML CUP NGT PRN ×2 (11:48→23:56)
[2017-03-19] MEDS: DIGOXIN 0.125 MG TAB PO SCH (13:57)
--- NOTE | 2017-03-19 15:37 | CONS ---
Date/Time of Note Date/Time of Note DATE: 03/19/17 TIME: 15:35 Assessment/Plan Assessment/Plan Additional Assessment/Plan 1. AF-mainly rate controlled/Trop negative x 3. Had pause x 3.7 seconds 01/30 on standing IVP BB. Now back in tele - NO Class i indication for pacer now as HR is stable. 2.Hypotension-on midodrine - better now 3.encephalopathy/ams-slowly improving - marked REMARKABLE improvement 4.coagulopathy-now on eliquis 5. Acute Renal failure-Now resolved - good urine output now 6.Leukocytosis 7. Cardiomyopathy-EF 45% 8. Cephalic vein thrombosis 9. Dysphagia s/p PEG 10. H Pylori Consultation Date/Type/Reason Admit Date/Time Jan 16, 2017 at 15:19 Initial Consult Date 01/26/17 Type of Consultation: cardiology Referring Provider: LAWRENCE PICKERING 24 HR Interval Summary Free Text/Dictation REMARKABLE improvement from neuro standpoint. No arbil now. ROS: No fever, no chills, no nausea, no vomiting, no diarrhea/constipation No recent weight changes No chest pain, no PND, no orthopnea No dizziness, blurred vision No thirst, no heat or cold intolerance Exam/Review of Systems Vital Signs Vitals Vital Signs Date Time Temp Pulse Resp B/P Pulse Ox O2 Delivery O2 Flow Rate FiO2 03/19/17 13:04 84 18 95 21 03/19/17 11:05 98.4 123/58 03/18/17 03:15 Room Air Intake and Output 03/18/17 03/18/17 03/19/17 15:00 23:00 07:00 Intake Total 1300 ml 750 ml Output Total 1000 ml 800 ml Balance 300 ml -50 ml Exam General: WN/WD/NAD, AOx 2-3 HEENT: Unicetric/atraumatic/EOMI (follow commands) NECK: JVD elevated, no thyromegaly Lymph: no lymphadenopathy HEART: irregular with no S3, II/ systolic murmur at apex LUNGS: Coarse sounds ABD: soft, NT, ND, +BS : Intact Neuro: post CVA SKIN: chronic changes EXT: trace edema Results Result Diagram: 03/19/17 0640 03/19/17 0640 Results 24 hrs Laboratory Tests Test 03/19/17 06:40 White Blood Count 10.6 Red Blood Count 4.03 L Hemoglobin 11.0 L Hematocrit 34.6 L Mean Corpuscular Volume 85.9 Mean Corpuscular Hemoglobin 27.3 L Mean Corpuscular Hemoglobin Concent 31.8 L Red Cell Distribution Width 16.5 H Platelet Count 319 Mean Platelet Volume 13.3 H Neutrophils % 80.8 H Lymphocytes % 10.4 L Monocytes % 5.9 Eosinophils % 1.4 Basophils % 0.7 Nucleated Red Blood Cells % 0.0 Neutrophils # 8.6 H Lymphocytes # 1.1 Monocytes # 0.6 Eosinophils # 0.2 Basophils # 0.1 Nucleated Red Blood Cells # 0.0 Sodium Level 138 Potassium Level 4.2 Chloride Level 104 Carbon Dioxide Level 26 Anion Gap 12 Blood Urea Nitrogen 21 H Creatinine 0.75 Glucose Level 123 Calcium Level 9.7 Medications Medications Current Medications Miscellaneous Information 1 ea NOTE XX ; Start 01/17/17 at 10:00 Glucose (Glutose) 15 gm Q15M PRN PO DECREASED GLUCOSE; Start 01/17/17 at 10:00 Glucose (Glutose) 22.5 gm Q15M PRN PO DECREASED GLUCOSE; Start 01/17/17 at 10: 00 Dextrose (D50w Syringe) 25 ml Q15M PRN IV DECREASED GLUCOSE; Start 01/17/17 at 10:00 Dextrose (D50w Syringe) 50 ml Q15M PRN IV DECREASED GLUCOSE; Start 01/17/17 at 10:00 Glucagon (Glucagen) 1 mg Q15M PRN IM DECREASED GLUCOSE; Start 01/17/17 at 10:00 Glucose (Glutose) 15 gm Q15M PRN BUCCAL DECREASED GLUCOSE; Start 01/17/17 at 10 :00 Collagenase (Santyl) 1 applic DAILY TOP Last administered on 03/18/17 09:13; Admin Dose 1 APPLIC; Start 01/17/17 at 21:00 IV Flush (NS 10 ml) 10 ml PRN PRN IV IV PROTOCOL Last administered on 21:45; Admin Dose 10 ML; Start 01/22/17 at 12:00 Miscellaneous Information (Pending Santyl Order For Wound Care) This patient dunaway... PRN PRN XX WOUND CARE; Start 01/24/17 at 07:30 Bisacodyl (Dulcolax Supp) 10 mg DAILY PRN [place] CONSTIPATION Last administered on 02/24/17 15:02; Admin Dose 10 MG; Start 01/25/17 at 16:30 Acetaminophen (Tylenol Liquid) 650 mg Q4H PRN NGT PAIN AND OR ELEVATED TEMP Last administered on 03/19/17 11:48; Admin Dose 650 MG; Start 01/26/17 at 09:00 Metoprolol Tartrate (Lopressor) 2.5 mg Q4H PRN IV HR > 110 Last administered on 02/23/17 03:58; Admin Dose 2.5 MG; Start 01/26/17 at 15:00 Nystatin (Nystatin Powder) 1 applic BID TOP Last administered on 03/19/17 09: 27; Admin Dose 1 APPLIC; Start 02/04/17 at 12:00 Eye Lubricant (Artificial Tears Oph) 2 drop Q6H PRN BOTH EYES DRY EYES Last administered on 03/16/17 20:33; Admin Dose 2 DROP; Start 02/13/17 at 15:30 Nystatin (Nystatin Susp) 5 ml QID GTB Last administered on 03/19/17 13:56; Admin Dose 5 ML; Start 02/18/17 at 08:00 Lansoprazole (Prevacid) 30 mg BID@06,18 GTB Last administered on 03/19/17 05: 48; Admin Dose 30 MG; Start 02/18/17 at 18:00 Apixaban (Eliquis) 5 mg BID GTB Last administered on 03/19/17 09:43; Admin Dose 5 MG; Start 02/22/17 at 22:00 Digoxin (Digoxin) 0.125 mg DAILY@13 PO Last administered on 03/19/17 13:57; Admin Dose 0.125 MG; Start 03/12/17 at 13:00 Atenolol (Tenormin) 12.5 mg BID PO Last administered on 03/19/17 09:44; Admin Dose 12.5 MG; Start 03/12/17 at 21:00 Midodrine (Proamatine) 10 mg Q8 PRN GTB BLOOD PRESSURE SUPPORT Last administered on 03/18/17 21:22; Admin Dose 10 MG; Start 03/18/17 at 19:30 YAJAIRA ALVAREZ MD Mar 19, 2017 15:37
[2017-03-20] VITALS (10 sets, daily range): BP systolic 87–126; BP diastolic 50–66; PULSE 65–84; RESP 15–20
[2017-03-20] MEDS: LEVALBUTEROL (NEB) 0.63 MG/3 ML AMP HHN SCH ×4 (01:04→21:15)
[2017-03-20] MEDS: LANSOPRAZOLE 30 MG CAP GTB SCH ×2 (05:02→17:43)
[2017-03-20] MEDS: MIDODRINE 5 MG TAB GTB PRN (05:02)
[2017-03-20 07:23] LABS: BASOPHIL # 0.1 10^3/ul (0.0-0.1); BASOPHILS % 0.6 % (0.0-2.0); EOSINOPHILS # 0.2 10^3/ul (0.0-0.5); EOSINOPHILS % 1.2 % (0.0-7.0); HEMATOCRIT 35.6 % (37.0-47.0); HEMOGLOBIN 11.1 g/dl (12.0-16.0); LYMPHOCYTES % 6.8 % (15.0-51.0); MEAN CORPUSCULAR HEMOGLOBIN 26.6 pg (29.0-33.0); MEAN CORPUSCULAR HGB CONC 31.2 g/dl (32.0-37.0); MEAN CORPUSCULAR VOLUME 85.4 fl (82.0-101.0); MONOCYTE # 0.6 10^3/ul (0.3-0.9); MONOCYTES % 4.3 % (0.0-11.0); NEUTROPHIL # 12.5 10^3/ul (1.6-7.5); NEUTROPHILS % 86.1 % (39.0-77.0); PLATELET COUNT 304 10^3/UL (140-415); RED BLOOD COUNT 4.17 10^6/ul (4.20-5.40); WHITE BLOOD COUNT 14.5 10^3/ul (4.8-10.8)
[2017-03-20 08:21] LABS: CALCIUM 9.8 mg/dl (8.4-10.2); CREATININE 0.76 mg/dl (0.44-1.00)
[2017-03-20] MEDS: APIXABAN 5 MG TABLET GTB SCH ×2 (09:23→22:10)
[2017-03-20] MEDS: NYSTATIN SUSP 5 ML CUP GTB SCH ×4 (09:23→22:10)
[2017-03-20] MEDS: ATENOLOL 25 MG TAB PO SCH ×2 (09:24→22:11)
[2017-03-20] MEDS: NYSTATIN 30 GM POWDER BTL TOP SCH ×2 (09:25→22:10)
[2017-03-20] MEDS: COLLAGENASE 30 GM TUBE TOP SCH (09:26)
--- NOTE | 2017-03-20 11:56 | PN ---
Date/Time of Note Date/Time of Note DATE: 03/20/17 TIME: 11:56 Assessment/Plan VTE Prophylaxis VTE Prophylaxis Intervention: other Lines/Catheters IV [facility]ter Type (from [facility]): PICC Line Central line still needed: Yes Urinary Cath still in place: Yes Reason Cath still needed: skin wounds contaminated by urine Assessment/Plan Chief Complaint/Hosp Course - Altered Mental Status- - MRI-stat -We will order EEG -Neurology consult- notified - Urinary tract infection, continue antibiotics per ID. Dr. Abarca is following in an infection disease consultation. - Gastritis due to H. pylori, continue triple therapy per H. pylori eradication - Possible bleeding from G-tube and hematuria, resolved status post EGD was notion of gastritis, continue Protonix. - Bilateral thalamic infarctions. - Dysphagia, status post G-tube placement by Dr. Garcia. - Atrial fibrillation with rapid ventricular response. Dr. Armenta is following and cardiology consultation. Continue Eliquis. - Thrombosis of the bilateral cephalic veins. - Acute kidney injury, resolved. - History of CVA - History of hyperlipidemia Problems: Subjective 24 Hr Interval Summary Free Text/Dictation Patient is more awake, able to answer questions Exam/Review of Systems Vital Signs Vitals Vital Signs Date Time Temp Pulse Resp B/P Pulse Ox O2 Delivery O2 Flow Rate FiO2 03/20/17 11:36 99.0 79 20 126/66 96 03/20/17 08:05 21 03/18/17 03:15 Room Air Intake and Output 03/19/17 03/19/17 03/20/17 15:00 23:00 07:00 Intake Total 870 ml Output Total 1150 ml 700 ml Balance -1150 ml 170 ml Exam Constitutional: well developed Head: atraumatic, normocephalic Neck: supple Respiratory: clear to auscultation Cardiovascular: regular rate and rhythm Gastrointestinal: non-tender, soft Extremities: normal pulses Results Result Diagram: 03/20/17 0651 03/20/17 0651 Results 24 hrs Laboratory Tests Test 03/20/17 06:51 White Blood Count 14.5 #H Red Blood Count 4.17 L Hemoglobin 11.1 L Hematocrit 35.6 L Mean Corpuscular Volume 85.4 Mean Corpuscular Hemoglobin 26.6 L Mean Corpuscular Hemoglobin Concent 31.2 L Red Cell Distribution Width 17.0 H Platelet Count 304 Mean Platelet Volume 13.0 H Neutrophils % 86.1 H Lymphocytes % 6.8 L Monocytes % 4.3 Eosinophils % 1.2 Basophils % 0.6 Nucleated Red Blood Cells % 0.0 Neutrophils # 12.5 H Lymphocytes # 1.0 Monocytes # 0.6 Eosinophils # 0.2 Basophils # 0.1 Nucleated Red Blood Cells # 0.0 Sodium Level 140 Potassium Level 4.0 Chloride Level 104 Carbon Dioxide Level 25 Anion Gap 15 Blood Urea Nitrogen 20 Creatinine 0.76 Glucose Level 124 Calcium Level 9.8 Medications Medications Current Medications Miscellaneous Information 1 ea NOTE XX ; Start 01/17/17 at 10:00 Glucose (Glutose) 15 gm Q15M PRN PO DECREASED GLUCOSE; Start 01/17/17 at 10:00 Glucose (Glutose) 22.5 gm Q15M PRN PO DECREASED GLUCOSE; Start 01/17/17 at 10: 00 Dextrose (D50w Syringe) 25 ml Q15M PRN IV DECREASED GLUCOSE; Start 01/17/17 at 10:00 Dextrose (D50w Syringe) 50 ml Q15M PRN IV DECREASED GLUCOSE; Start 01/17/17 at 10:00 Glucagon (Glucagen) 1 mg Q15M PRN IM DECREASED GLUCOSE; Start 01/17/17 at 10:00 Glucose (Glutose) 15 gm Q15M PRN BUCCAL DECREASED GLUCOSE; Start 01/17/17 at 10 :00 Collagenase (Santyl) 1 applic DAILY TOP Last administered on 03/20/17 09:26; Admin Dose 1 APPLIC; Start 01/17/17 at 21:00 IV Flush (NS 10 ml) 10 ml PRN PRN IV IV PROTOCOL Last administered on 21:45; Admin Dose 10 ML; Start 01/22/17 at 12:00 Miscellaneous Information (Pending Santyl Order For Wound Care) This patient dunaway... PRN PRN XX WOUND CARE; Start 01/24/17 at 07:30 Bisacodyl (Dulcolax Supp) 10 mg DAILY PRN [place] CONSTIPATION Last administered on 02/24/17 15:02; Admin Dose 10 MG; Start 01/25/17 at 16:30 Acetaminophen (Tylenol Liquid) 650 mg Q4H PRN NGT PAIN AND OR ELEVATED TEMP Last administered on 03/19/17 23:56; Admin Dose 650 MG; Start 01/26/17 at 09:00 Metoprolol Tartrate (Lopressor) 2.5 mg Q4H PRN IV HR > 110 Last administered on 02/23/17 03:58; Admin Dose 2.5 MG; Start 01/26/17 at 15:00 Nystatin (Nystatin Powder) 1 applic BID TOP Last administered on 03/20/17 09: 25; Admin Dose 1 APPLIC; Start 02/04/17 at 12:00 Eye Lubricant (Artificial Tears Oph) 2 drop Q6H PRN BOTH EYES DRY EYES Last administered on 03/16/17 20:33; Admin Dose 2 DROP; Start 02/13/17 at 15:30 Nystatin (Nystatin Susp) 5 ml QID GTB Last administered on 03/20/17 09:23; Admin Dose 5 ML; Start 02/18/17 at 08:00 Lansoprazole (Prevacid) 30 mg BID@06,18 GTB Last administered on 03/20/17 05: 02; Admin Dose 30 MG; Start 02/18/17 at 18:00 Apixaban (Eliquis) 5 mg BID GTB Last administered on 03/20/17 09:23; Admin Dose 5 MG; Start 02/22/17 at 22:00 Digoxin (Digoxin) 0.125 mg DAILY@13 PO Last administered on 03/19/17 13:57; Admin Dose 0.125 MG; Start 03/12/17 at 13:00 Atenolol (Tenormin) 12.5 mg BID PO Last administered on 03/20/17 09:24; Admin Dose 12.5 MG; Start 03/12/17 at 21:00 Midodrine (Proamatine) 10 mg Q8 PRN GTB BLOOD PRESSURE SUPPORT Last administered on 03/20/17 05:02; Admin Dose 10 MG; Start 03/18/17 at 19:30 JOSE LOMAS Mar 20, 2017 11:56
--- NOTE | 2017-03-20 13:38 | CONS ---
Date/Time of Note Date/Time of Note DATE: 03/20/17 TIME: 13:37 Assessment/Plan Assessment/Plan Additional Assessment/Plan 1. AF-mainly rate controlled/Trop negative x 3. Had pause x 3.7 seconds 01/30 on standing IVP BB. Now back in tele - NO Class i indication for pacer now as HR is stable. 2.Hypotension-on midodrine - better now 3.encephalopathy/ams-slowly improving - marked REMARKABLE improvement - con't PT now 4.coagulopathy-now on eliquis 5. Acute Renal failure-Now resolved - good urine output now 6.Leukocytosis 7. Cardiomyopathy-EF 45% - no indication for ICD 8. Cephalic vein thrombosis 9. Dysphagia s/p PEG 10. H Pylori Consultation Date/Type/Reason Admit Date/Time Jan 16, 2017 at 15:19 Initial Consult Date 01/26/17 Type of Consultation: cardiology Referring Provider: LAWRENCE PICKERING 24 HR Interval Summary Free Text/Dictation NO acute events no tachy-abril episodes noted. ROS: No fever, no chills, no nausea, no vomiting, no diarrhea/constipation No recent weight changes No chest pain, no PND, no orthopnea No dizziness, blurred vision No thirst, no heat or cold intolerance Exam/Review of Systems Vital Signs Vitals Vital Signs Date Time Temp Pulse Resp B/P Pulse Ox O2 Delivery O2 Flow Rate FiO2 03/20/17 12:00 73 03/20/17 11:36 99.0 20 126/66 96 03/20/17 08:05 21 03/18/17 03:15 Room Air Intake and Output 03/19/17 03/19/17 03/20/17 15:00 23:00 07:00 Intake Total 870 ml Output Total 1150 ml 700 ml Balance -1150 ml 170 ml Exam General: WN/WD/NAD, AOx2-3 HEENT: Unicetric/atraumatic/EOMI (follow commands) NECK: JVD elevated, no thyromegaly Lymph: no lymphadenopathy HEART: Ir Irregular with no S3, II/ systolic murmur at apex LUNGS: Coarse sounds ABD: soft, NT, ND, +BS : Intact Neuro: non focal SKIN: chronic changes EXT: trace edema Results Result Diagram: 03/20/17 0651 03/20/17 0651 Results 24 hrs Laboratory Tests Test 03/20/17 06:51 White Blood Count 14.5 #H Red Blood Count 4.17 L Hemoglobin 11.1 L Hematocrit 35.6 L Mean Corpuscular Volume 85.4 Mean Corpuscular Hemoglobin 26.6 L Mean Corpuscular Hemoglobin Concent 31.2 L Red Cell Distribution Width 17.0 H Platelet Count 304 Mean Platelet Volume 13.0 H Neutrophils % 86.1 H Lymphocytes % 6.8 L Monocytes % 4.3 Eosinophils % 1.2 Basophils % 0.6 Nucleated Red Blood Cells % 0.0 Neutrophils # 12.5 H Lymphocytes # 1.0 Monocytes # 0.6 Eosinophils # 0.2 Basophils # 0.1 Nucleated Red Blood Cells # 0.0 Sodium Level 140 Potassium Level 4.0 Chloride Level 104 Carbon Dioxide Level 25 Anion Gap 15 Blood Urea Nitrogen 20 Creatinine 0.76 Glucose Level 124 Calcium Level 9.8 Medications Medications Current Medications Miscellaneous Information 1 ea NOTE XX ; Start 01/17/17 at 10:00 Glucose (Glutose) 15 gm Q15M PRN PO DECREASED GLUCOSE; Start 01/17/17 at 10:00 Glucose (Glutose) 22.5 gm Q15M PRN PO DECREASED GLUCOSE; Start 01/17/17 at 10: 00 Dextrose (D50w Syringe) 25 ml Q15M PRN IV DECREASED GLUCOSE; Start 01/17/17 at 10:00 Dextrose (D50w Syringe) 50 ml Q15M PRN IV DECREASED GLUCOSE; Start 01/17/17 at 10:00 Glucagon (Glucagen) 1 mg Q15M PRN IM DECREASED GLUCOSE; Start 01/17/17 at 10:00 Glucose (Glutose) 15 gm Q15M PRN BUCCAL DECREASED GLUCOSE; Start 01/17/17 at 10 :00 Collagenase (Santyl) 1 applic DAILY TOP Last administered on 03/20/17 09:26; Admin Dose 1 APPLIC; Start 01/17/17 at 21:00 IV Flush (NS 10 ml) 10 ml PRN PRN IV IV PROTOCOL Last administered on 21:45; Admin Dose 10 ML; Start 01/22/17 at 12:00 Miscellaneous Information (Pending Santyl Order For Wound Care) This patient dunaway... PRN PRN XX WOUND CARE; Start 01/24/17 at 07:30 Bisacodyl (Dulcolax Supp) 10 mg DAILY PRN [place] CONSTIPATION Last administered on 02/24/17 15:02; Admin Dose 10 MG; Start 01/25/17 at 16:30 Acetaminophen (Tylenol Liquid) 650 mg Q4H PRN NGT PAIN AND OR ELEVATED TEMP Last administered on 03/19/17 23:56; Admin Dose 650 MG; Start 01/26/17 at 09:00 Metoprolol Tartrate (Lopressor) 2.5 mg Q4H PRN IV HR > 110 Last administered on 02/23/17 03:58; Admin Dose 2.5 MG; Start 01/26/17 at 15:00 Nystatin (Nystatin Powder) 1 applic BID TOP Last administered on 03/20/17 09: 25; Admin Dose 1 APPLIC; Start 02/04/17 at 12:00 Eye Lubricant (Artificial Tears Oph) 2 drop Q6H PRN BOTH EYES DRY EYES Last administered on 03/16/17 20:33; Admin Dose 2 DROP; Start 02/13/17 at 15:30 Nystatin (Nystatin Susp) 5 ml QID GTB Last administered on 03/20/17 09:23; Admin Dose 5 ML; Start 02/18/17 at 08:00 Lansoprazole (Prevacid) 30 mg BID@06,18 GTB Last administered on 03/20/17 05: 02; Admin Dose 30 MG; Start 02/18/17 at 18:00 Apixaban (Eliquis) 5 mg BID GTB Last administered on 03/20/17 09:23; Admin Dose 5 MG; Start 02/22/17 at 22:00 Digoxin (Digoxin) 0.125 mg DAILY@13 PO Last administered on 03/19/17 13:57; Admin Dose 0.125 MG; Start 03/12/17 at 13:00 Atenolol (Tenormin) 12.5 mg BID PO Last administered on 03/20/17 09:24; Admin Dose 12.5 MG; Start 03/12/17 at 21:00 Midodrine (Proamatine) 10 mg Q8 PRN GTB BLOOD PRESSURE SUPPORT Last administered on 03/20/17 05:02; Admin Dose 10 MG; Start 03/18/17 at 19:30 YAJAIRA ALVAREZ MD Mar 20, 2017 13:38
[2017-03-20] MEDS: DIGOXIN 0.125 MG TAB PO SCH (13:51)
--- NOTE | 2017-03-20 15:54 | CONS ---
Date/Time of Note Date/Time of Note DATE: 03/20/17 TIME: 15:51 Consult Date/Type/Reason Admit Date/Time Jan 16, 2017 at 15:19 Initial Consult Date 01/26/17 Type of Consultation: neurology Ordering Provider: LAWRENCE PICKERING Subjective No acute events, no seizures, no unresponsiveness Objective Vital Signs Date Time Temp Pulse Resp B/P Pulse Ox O2 Delivery O2 Flow Rate FiO2 03/20/17 15:46 99.3 91 20 118/58 99 03/20/17 15:18 21 03/18/17 03:15 Room Air Intake and Output 03/19/17 03/19/17 03/20/17 15:00 23:00 07:00 Intake Total 870 ml Output Total 1150 ml 700 ml Balance -1150 ml 170 ml Results/Medications Result Diagram: 03/20/17 0651 03/20/17 0651 Results 24 hrs Laboratory Tests Test 03/20/17 06:51 White Blood Count 14.5 #H Red Blood Count 4.17 L Hemoglobin 11.1 L Hematocrit 35.6 L Mean Corpuscular Volume 85.4 Mean Corpuscular Hemoglobin 26.6 L Mean Corpuscular Hemoglobin Concent 31.2 L Red Cell Distribution Width 17.0 H Platelet Count 304 Mean Platelet Volume 13.0 H Neutrophils % 86.1 H Lymphocytes % 6.8 L Monocytes % 4.3 Eosinophils % 1.2 Basophils % 0.6 Nucleated Red Blood Cells % 0.0 Neutrophils # 12.5 H Lymphocytes # 1.0 Monocytes # 0.6 Eosinophils # 0.2 Basophils # 0.1 Nucleated Red Blood Cells # 0.0 Sodium Level 140 Potassium Level 4.0 Chloride Level 104 Carbon Dioxide Level 25 Anion Gap 15 Blood Urea Nitrogen 20 Creatinine 0.76 Glucose Level 124 Calcium Level 9.8 Medications Current Medications Miscellaneous Information 1 ea NOTE XX ; Start 01/17/17 at 10:00 Glucose (Glutose) 15 gm Q15M PRN PO DECREASED GLUCOSE; Start 01/17/17 at 10:00 Glucose (Glutose) 22.5 gm Q15M PRN PO DECREASED GLUCOSE; Start 01/17/17 at 10: 00 Dextrose (D50w Syringe) 25 ml Q15M PRN IV DECREASED GLUCOSE; Start 01/17/17 at 10:00 Dextrose (D50w Syringe) 50 ml Q15M PRN IV DECREASED GLUCOSE; Start 01/17/17 at 10:00 Glucagon (Glucagen) 1 mg Q15M PRN IM DECREASED GLUCOSE; Start 01/17/17 at 10:00 Glucose (Glutose) 15 gm Q15M PRN BUCCAL DECREASED GLUCOSE; Start 01/17/17 at 10 :00 Collagenase (Santyl) 1 applic DAILY TOP Last administered on 03/20/17 09:26; Admin Dose 1 APPLIC; Start 01/17/17 at 21:00 IV Flush (NS 10 ml) 10 ml PRN PRN IV IV PROTOCOL Last administered on 21:45; Admin Dose 10 ML; Start 01/22/17 at 12:00 Miscellaneous Information (Pending Santyl Order For Wound Care) This patient dunaway... PRN PRN XX WOUND CARE; Start 01/24/17 at 07:30 Bisacodyl (Dulcolax Supp) 10 mg DAILY PRN [place] CONSTIPATION Last administered on 02/24/17 15:02; Admin Dose 10 MG; Start 01/25/17 at 16:30 Acetaminophen (Tylenol Liquid) 650 mg Q4H PRN NGT PAIN AND OR ELEVATED TEMP Last administered on 03/19/17 23:56; Admin Dose 650 MG; Start 01/26/17 at 09:00 Metoprolol Tartrate (Lopressor) 2.5 mg Q4H PRN IV HR > 110 Last administered on 02/23/17 03:58; Admin Dose 2.5 MG; Start 01/26/17 at 15:00 Nystatin (Nystatin Powder) 1 applic BID TOP Last administered on 03/20/17 09: 25; Admin Dose 1 APPLIC; Start 02/04/17 at 12:00 Eye Lubricant (Artificial Tears Oph) 2 drop Q6H PRN BOTH EYES DRY EYES Last administered on 03/16/17 20:33; Admin Dose 2 DROP; Start 02/13/17 at 15:30 Nystatin (Nystatin Susp) 5 ml QID GTB Last administered on 03/20/17 13:51; Admin Dose 5 ML; Start 02/18/17 at 08:00 Lansoprazole (Prevacid) 30 mg BID@18 GTB Last administered on 03/20/17 05: 02; Admin Dose 30 MG; Start 02/18/17 at 18:00 Apixaban (Eliquis) 5 mg BID GTB Last administered on 03/20/17 09:23; Admin Dose 5 MG; Start 02/22/17 at 22:00 Digoxin (Digoxin) 0.125 mg DAILY@13 PO Last administered on 03/20/17 13:51; Admin Dose 0.125 MG; Start 03/12/17 at 13:00 Atenolol (Tenormin) 12.5 mg BID PO Last administered on 03/20/17 09:24; Admin Dose 12.5 MG; Start 03/12/17 at 21:00 Midodrine (Proamatine) 10 mg Q8 PRN GTB BLOOD PRESSURE SUPPORT Last administered on 03/20/17 05:02; Admin Dose 10 MG; Start 03/18/17 at 19:30 Assessment/Plan Chief Complaint/Hosp Course NEURO: She is awake with fluent speech. Oriented x1. Cranial nerve examination shows intact visual helms. Pupils are about 3 mm bilaterally. Extraocular movements are intact. The patient has divergent strabismus with left eye exotropia. Preserved facial strength. Corneal reflexes present bilaterally as well as gag. Motor strength examination shows generalized weakness about 3+/5, maybe even slightly better, slightly increase tone in upper extremities. Also, left leg seemed to be little bit weaker compared to the right. Sensory examination is grossly intact to light touch and pain. Deep tendon reflexes are 2+ in the upper extremities and knees. Absent ankle jerks. Upgoing toes bilaterally. Coordination shows mild dysmetria that was related to weakness in bilateral upper extremities on [id number] testing but slightly more pronounced on the right. IMPRESSION: Transient encephalopathy. According to family members, it was related to low blood pressure. Clam Sorter is on case adjusting medications. Keep patient normotensive and euglycemic. Continue anticoagulation given patient's history of atrial fibrillation. EEG is normal. Continue current treatment. Problems: RHETT WALTER MD Mar 20, 2017 15:54
--- NOTE | 2017-03-20 18:11 | PN ---
Date/Time of Note Date/Time of Note DATE: 03/19/17 TIME: 18:17 Assessment/Plan VTE Prophylaxis VTE Prophylaxis Intervention: other Lines/Catheters IV Catheter Type (from [facility]): Peripheral IV Urinary Cath still in place: Yes Reason Cath still needed: urinary retention Assessment/Plan Assessment/Plan Altered Mental Status- - MRI-no acute pathology - CT- minimal microvascular ischemic disease in the periventricular and deep white matter. - EEG today -Neurology consult- notified- Dr Malone covering - Urinary tract infection, continue antibiotics per ID. Dr. Abarca is following in an infection disease consultation. - Gastritis due to H. pylori, continue triple therapy per H. pylori eradication - Possible bleeding from G-tube and hematuria, resolved status post EGD was notion of gastritis, continue Protonix. - Bilateral thalamic infarctions. - Dysphagia, status post G-tube placement by Dr. Garcia. - Atrial fibrillation with rapid ventricular response. Dr. Armenta is following and cardiology consultation. Continue Eliquis. - Thrombosis of the bilateral cephalic veins. - Acute kidney injury, resolved. - History of CVA - History of hyperlipidemia dw dr Valdovinos/staff Subjective 24 Hr Interval Summary Free Text/Dictation 1545- Alert, awake, responsive, getting EEG now. at bed side- all Qs ANSWERED Respiratory: no complaints Cardiovascular: no complaints Gastrointestinal: no complaints Genitourinary: no complaints Musculoskeletal: no complaints Exam/Review of Systems Vital Signs Vitals Vital Signs Date Time Temp Pulse Resp B/P Pulse Ox O2 Delivery O2 Flow Rate FiO2 03/19/17 16:18 98.1 99 18 110/51 97 03/19/17 13:04 21 03/18/17 03:15 Room Air Intake and Output 03/18/17 03/18/17 03/19/17 15:00 23:00 07:00 Intake Total 1300 ml 750 ml Output Total 1000 ml 800 ml Balance 300 ml -50 ml Results Result Diagram: 03/19/17 0640 03/19/17 0640 Results 24 hrs Laboratory Tests Test 03/19/17 06:40 White Blood Count 10.6 Red Blood Count 4.03 L Hemoglobin 11.0 L Hematocrit 34.6 L Mean Corpuscular Volume 85.9 Mean Corpuscular Hemoglobin 27.3 L Mean Corpuscular Hemoglobin Concent 31.8 L Red Cell Distribution Width 16.5 H Platelet Count 319 Mean Platelet Volume 13.3 H Neutrophils % 80.8 H Lymphocytes % 10.4 L Monocytes % 5.9 Eosinophils % 1.4 Basophils % 0.7 Nucleated Red Blood Cells % 0.0 Neutrophils # 8.6 H Lymphocytes # 1.1 Monocytes # 0.6 Eosinophils # 0.2 Basophils # 0.1 Nucleated Red Blood Cells # 0.0 Sodium Level 138 Potassium Level 4.2 Chloride Level 104 Carbon Dioxide Level 26 Anion Gap 12 Blood Urea Nitrogen 21 H Creatinine 0.75 Glucose Level 123 Calcium Level 9.7 Medications Medications Current Medications Miscellaneous Information 1 ea NOTE XX ; Start 01/17/17 at 10:00 Glucose (Glutose) 15 gm Q15M PRN PO DECREASED GLUCOSE; Start 01/17/17 at 10:00 Glucose (Glutose) 22.5 gm Q15M PRN PO DECREASED GLUCOSE; Start 01/17/17 at 10: 00 Dextrose (D50w Syringe) 25 ml Q15M PRN IV DECREASED GLUCOSE; Start 01/17/17 at 10:00 Dextrose (D50w Syringe) 50 ml Q15M PRN IV DECREASED GLUCOSE; Start 01/17/17 at 10:00 Glucagon (Glucagen) 1 mg Q15M PRN IM DECREASED GLUCOSE; Start 01/17/17 at 10:00 Glucose (Glutose) 15 gm Q15M PRN BUCCAL DECREASED GLUCOSE; Start 01/17/17 at 10 :00 Collagenase (Santyl) 1 applic DAILY TOP Last administered on 03/18/17 09:13; Admin Dose 1 APPLIC; Start 01/17/17 at 21:00 IV Flush (NS 10 ml) 10 ml PRN PRN IV IV PROTOCOL Last administered on 21:45; Admin Dose 10 ML; Start 01/22/17 at 12:00 Miscellaneous Information (Pending Santyl Order For Wound Care) This patient dunaway... PRN PRN XX WOUND CARE; Start 01/24/17 at 07:30 Bisacodyl (Dulcolax Supp) 10 mg DAILY PRN [place] CONSTIPATION Last administered on 02/24/17 15:02; Admin Dose 10 MG; Start 01/25/17 at 16:30 Acetaminophen (Tylenol Liquid) 650 mg Q4H PRN NGT PAIN AND OR ELEVATED TEMP Last administered on 03/19/17 11:48; Admin Dose 650 MG; Start 01/26/17 at 09:00 Metoprolol Tartrate (Lopressor) 2.5 mg Q4H PRN IV HR > 110 Last administered on 02/23/17 03:58; Admin Dose 2.5 MG; Start 01/26/17 at 15:00 Nystatin (Nystatin Powder) 1 applic BID TOP Last administered on 03/19/17 09: 27; Admin Dose 1 APPLIC; Start 02/04/17 at 12:00 Eye Lubricant (Artificial Tears Oph) 2 drop Q6H PRN BOTH EYES DRY EYES Last administered on 03/16/17 20:33; Admin Dose 2 DROP; Start 02/13/17 at 15:30 Nystatin (Nystatin Susp) 5 ml QID GTB Last administered on 03/19/17 13:56; Admin Dose 5 ML; Start 02/18/17 at 08:00 Lansoprazole (Prevacid) 30 mg BID@06,18 GTB Last administered on 03/19/17 05: 48; Admin Dose 30 MG; Start 02/18/17 at 18:00 Apixaban (Eliquis) 5 mg BID GTB Last administered on 03/19/17 09:43; Admin Dose 5 MG; Start 02/22/17 at 22:00 Digoxin (Digoxin) 0.125 mg DAILY@13 PO Last administered on 03/19/17 13:57; Admin Dose 0.125 MG; Start 03/12/17 at 13:00 Atenolol (Tenormin) 12.5 mg BID PO Last administered on 03/19/17 09:44; Admin Dose 12.5 MG; Start 03/12/17 at 21:00 Midodrine (Proamatine) 10 mg Q8 PRN GTB BLOOD PRESSURE SUPPORT Last administered on 03/18/17 21:22; Admin Dose 10 MG; Start 03/18/17 at 19:30 ALEXIS NAJERA Mar 19, 2017 18:27
--- NOTE | 2017-03-20 18:27 | CONS ---
Date/Time of Note Date/Time of Note DATE: 03/20/17 TIME: 18:14 Assessment/Plan Assessment/Plan Additional Assessment/Plan Assessment/impression: - Leukocytosis - will do siegel cultures. - change FC - s/p UTI due to proteus - diffuse moderate degree of gastritis s/p EGD 02/15/2017 - gastritis due to H. pylori based on pathology 02/15/2017. S/p clarithromycin based regimen (02/20/2017-03/06/2017), [id number] - bleeding from GT site, and blood clots in tube feed - resolved - recurrent CVA - possible aspiration, improved - encephalopathy due to CVA. CSF from 01/19/2017: WBC=3, RBC=0, glu 53, pro=61, CSF ([place] serology negative, HSV negative, cocci CF negative, encephalitis meningitis panel could not be done due to a lack of sample), serum ([place] PCR negative, crypto antigen negative, cocci CF negative, histo CF negative). my order of crypto in CSF was cancelled and no reason given - bacteremia due to CoNS, probable contaminant. 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 Consultation Date/Type/Reason Admit Date/Time Jan 16, 2017 at 15:19 Initial Consult Date 01/26/17 Type of Consultation: neurology Referring Provider: LAWRENCE PICKERING 24 HR Interval Summary Constitutional: requiring O2 Detailed Summary Respiratory: no complaints Cardiovascular: no complaints Gastrointestinal: no complaints Genitourinary: no complaints Skin: no complaints Exam/Review of Systems Vital Signs Vitals Vital Signs Date Time Temp Pulse Resp B/P Pulse Ox O2 Delivery O2 Flow Rate FiO2 03/20/17 16:00 83 03/20/17 15:46 99.3 20 118/58 99 03/20/17 15:18 21 03/18/17 03:15 Room Air Intake and Output 03/19/17 03/19/17 03/20/17 15:00 23:00 07:00 Intake Total 870 ml Output Total 1150 ml 700 ml Balance -1150 ml 170 ml Exam Constitutional: alert, oriented (name only), well developed Respiratory: clear to auscultation Cardiovascular: irregular rhythm, nl pulses, other (AFIB/Aflutter) Neurological: nl speech, other Results Result Diagram: 03/20/17 0651 03/20/17 0651 Results 24 hrs Laboratory Tests Test 03/20/17 06:51 White Blood Count 14.5 #H Red Blood Count 4.17 L Hemoglobin 11.1 L Hematocrit 35.6 L Mean Corpuscular Volume 85.4 Mean Corpuscular Hemoglobin 26.6 L Mean Corpuscular Hemoglobin Concent 31.2 L Red Cell Distribution Width 17.0 H Platelet Count 304 Mean Platelet Volume 13.0 H Neutrophils % 86.1 H Lymphocytes % 6.8 L Monocytes % 4.3 Eosinophils % 1.2 Basophils % 0.6 Nucleated Red Blood Cells % 0.0 Neutrophils # 12.5 H Lymphocytes # 1.0 Monocytes # 0.6 Eosinophils # 0.2 Basophils # 0.1 Nucleated Red Blood Cells # 0.0 Sodium Level 140 Potassium Level 4.0 Chloride Level 104 Carbon Dioxide Level 25 Anion Gap 15 Blood Urea Nitrogen 20 Creatinine 0.76 Glucose Level 124 Calcium Level 9.8 Medications Medications Current Medications Miscellaneous Information 1 ea NOTE XX ; Start 01/17/17 at 10:00 Glucose (Glutose) 15 gm Q15M PRN PO DECREASED GLUCOSE; Start 01/17/17 at 10:00 Glucose (Glutose) 22.5 gm Q15M PRN PO DECREASED GLUCOSE; Start 01/17/17 at 10: 00 Dextrose (D50w Syringe) 25 ml Q15M PRN IV DECREASED GLUCOSE; Start 01/17/17 at 10:00 Dextrose (D50w Syringe) 50 ml Q15M PRN IV DECREASED GLUCOSE; Start 01/17/17 at 10:00 Glucagon (Glucagen) 1 mg Q15M PRN IM DECREASED GLUCOSE; Start 01/17/17 at 10:00 Glucose (Glutose) 15 gm Q15M PRN BUCCAL DECREASED GLUCOSE; Start 01/17/17 at 10 :00 Collagenase (Santyl) 1 applic DAILY TOP Last administered on 03/20/17 09:26; Admin Dose 1 APPLIC; Start 01/17/17 at 21:00 IV Flush (NS 10 ml) 10 ml PRN PRN IV IV PROTOCOL Last administered on 21:45; Admin Dose 10 ML; Start 01/22/17 at 12:00 Miscellaneous Information (Pending Santyl Order For Wound Care) This patient dunaway... PRN PRN XX WOUND CARE; Start 01/24/17 at 07:30 Bisacodyl (Dulcolax Supp) 10 mg DAILY PRN [place] CONSTIPATION Last administered on 02/24/17 15:02; Admin Dose 10 MG; Start 01/25/17 at 16:30 Acetaminophen (Tylenol Liquid) 650 mg Q4H PRN NGT PAIN AND OR ELEVATED TEMP Last administered on 03/19/17 23:56; Admin Dose 650 MG; Start 01/26/17 at 09:00 Metoprolol Tartrate (Lopressor) 2.5 mg Q4H PRN IV HR > 110 Last administered on 02/23/17 03:58; Admin Dose 2.5 MG; Start 01/26/17 at 15:00 Nystatin (Nystatin Powder) 1 applic BID TOP Last administered on 03/20/17 09: 25; Admin Dose 1 APPLIC; Start 02/04/17 at 12:00 Eye Lubricant (Artificial Tears Oph) 2 drop Q6H PRN BOTH EYES DRY EYES Last administered on 03/16/17 20:33; Admin Dose 2 DROP; Start 02/13/17 at 15:30 Nystatin (Nystatin Susp) 5 ml QID GTB Last administered on 03/20/17 17:44; Admin Dose 5 ML; Start 02/18/17 at 08:00 Lansoprazole (Prevacid) 30 mg BID@06,18 GTB Last administered on 03/20/17 17: 43; Admin Dose 30 MG; Start 02/18/17 at 18:00 Apixaban (Eliquis) 5 mg BID GTB Last administered on 03/20/17 09:23; Admin Dose 5 MG; Start 02/22/17 at 22:00 Digoxin (Digoxin) 0.125 mg DAILY@13 PO Last administered on 03/20/17 13:51; Admin Dose 0.125 MG; Start 03/12/17 at 13:00 Atenolol (Tenormin) 12.5 mg BID PO Last administered on 03/20/17 09:24; Admin Dose 12.5 MG; Start 03/12/17 at 21:00 Midodrine (Proamatine) 10 mg Q8 PRN GTB BLOOD PRESSURE SUPPORT Last administered on 03/20/17 05:02; Admin Dose 10 MG; Start 03/18/17 at 19:30 ALEXIS NAJERA Mar 20, 2017 18:24
--- NOTE | 2017-03-20 23:05 | CONS ---
DATE OF ADMISSION: 01/16/2017 DATE OF CONSULTATION: 03/20/2017 INDICATION: A 59-year-old lady with history of bilateral thalamic strokes, who has transient unresponsiveness. DESCRIPTION OF PROCEDURE: Routine EEG was recorded digitally. Scalp to scalp and scalp to ear montages were recorded and reviewed. All impedances were measured and recorded. CAP electrodes were placed in accordance to International 10 to 20 system of electrode placement. Symmetrically distributed background activity of low to medium amplitude was seen with a frequency ranging between 9 to 11 cycles per second. No epileptiform transients were seen. No signs of ongoing electrographic seizures or lateralized slowing. Photic stimulation produces no definite driving. IMPRESSION: Essentially normal study. Please correlate clinically. Dictated By: Magdiel Ramirez MD /ange/reilly /Document#: [id number] MTDD
[2017-03-21] VITALS (14 sets, daily range): BP systolic 86–112; BP diastolic 51–62; PULSE 79–100; RESP 19–20
[2017-03-21] MEDS: LEVALBUTEROL (NEB) 0.63 MG/3 ML AMP HHN SCH ×4 (02:05→20:13)
[2017-03-21] MEDS: MIDODRINE 5 MG TAB GTB PRN (04:26)
[2017-03-21] MEDS: ACETAMINOPHEN 650MG/20.3ML CUP NGT PRN ×2 (04:26→13:45)
[2017-03-21] MEDS: LANSOPRAZOLE 30 MG CAP GTB SCH ×2 (06:09→18:00)
[2017-03-21 06:43] LABS: BASOPHIL # 0.1 10^3/ul (0.0-0.1); BASOPHILS % 0.7 % (0.0-2.0); EOSINOPHILS # 0.1 10^3/ul (0.0-0.5); EOSINOPHILS % 1.2 % (0.0-7.0); HEMATOCRIT 33.6 % (37.0-47.0); HEMOGLOBIN 10.6 g/dl (12.0-16.0); LYMPHOCYTES # 1.4 10^3/ul (0.8-2.9); LYMPHOCYTES % 11.1 % (15.0-51.0); MEAN CORPUSCULAR HEMOGLOBIN 26.6 pg (29.0-33.0); MEAN CORPUSCULAR HGB CONC 31.5 g/dl (32.0-37.0); MEAN CORPUSCULAR VOLUME 84.2 fl (82.0-101.0); MEAN PLATELET VOLUME 12.8 fl (7.4-10.4); MONOCYTE # 0.7 10^3/ul (0.3-0.9); MONOCYTES % 6.1 % (0.0-11.0); NEUTROPHIL # 9.8 10^3/ul (1.6-7.5); NEUTROPHILS % 80.2 % (39.0-77.0); PLATELET COUNT 313 10^3/UL (140-415); RED BLOOD COUNT 3.99 10^6/ul (4.20-5.40); RED CELL DISTRIBUTION WIDTH 16.6 % (11.5-14.5); WHITE BLOOD COUNT 12.2 10^3/ul (4.8-10.8)
[2017-03-21] MEDS: ATENOLOL 25 MG TAB PO SCH ×2 (08:51→20:49)
[2017-03-21] MEDS: NYSTATIN SUSP 5 ML CUP GTB SCH ×4 (08:51→20:48)
[2017-03-21] MEDS: APIXABAN 5 MG TABLET GTB SCH ×2 (08:51→20:50)
[2017-03-21] MEDS: NYSTATIN 30 GM POWDER BTL TOP SCH ×2 (08:52→20:50)
[2017-03-21] MEDS: COLLAGENASE 30 GM TUBE TOP SCH (08:52)
--- NOTE | 2017-03-21 12:12 | PN ---
Date/Time of Note Date/Time of Note DATE: 03/21/17 TIME: 12:11 Assessment/Plan VTE Prophylaxis VTE Prophylaxis Intervention: other Lines/Catheters IV [facility] Type (from [facility]): PICC Line Central line still needed: Yes Urinary Cath still in place: Yes Reason Cath still needed: skin wounds contaminated by urine Assessment/Plan Chief Complaint/Hosp Course - Altered Mental Status- - MRI-stat -We will order EEG -Neurology consult- notified - Urinary tract infection, continue antibiotics per ID. Dr. Abarca is following in an infection disease consultation. - Gastritis due to H. pylori, continue triple therapy per H. pylori eradication - Possible bleeding from G-tube and hematuria, resolved status post EGD was notion of gastritis, continue Protonix. - Bilateral thalamic infarctions. - Dysphagia, status post G-tube placement by Dr. Garcia. - Atrial fibrillation with rapid ventricular response. Dr. Armenta is following and cardiology consultation. Continue Eliquis. - Thrombosis of the bilateral cephalic veins. - Acute kidney injury, resolved. - History of CVA - History of hyperlipidemia Problems: Subjective 24 Hr Interval Summary Free Text/Dictation Patient doing okay though nurse notes that the blood pressure has been labile. Blood cultures is coming back preliminarily gram positive cocci. Exam/Review of Systems Vital Signs Vitals Vital Signs Date Time Temp Pulse Resp B/P Pulse Ox O2 Delivery O2 Flow Rate FiO2 03/21/17 11:46 65 109/56 03/21/17 11:03 97.6 20 100 03/21/17 10:38 21 03/18/17 03:15 Room Air Intake and Output 03/20/17 03/20/17 03/21/17 15:00 23:00 07:00 Intake Total 1000 ml Output Total 500 ml Balance 500 ml Exam Constitutional: well developed Head: atraumatic, normocephalic Neck: supple Respiratory: clear to auscultation Cardiovascular: regular rate and rhythm Gastrointestinal: non-tender, soft Extremities: normal pulses Results Result Diagram: 03/21/17 0626 03/20/17 0651 Results 24 hrs Laboratory Tests Test 03/21/17 06:26 White Blood Count 12.2 H Red Blood Count 3.99 L Hemoglobin 10.6 L Hematocrit 33.6 L Mean Corpuscular Volume 84.2 Mean Corpuscular Hemoglobin 26.6 L Mean Corpuscular Hemoglobin Concent 31.5 L Red Cell Distribution Width 16.6 H Platelet Count 313 Mean Platelet Volume 12.8 H Neutrophils % 80.2 H Lymphocytes % 11.1 L Monocytes % 6.1 Eosinophils % 1.2 Basophils % 0.7 Nucleated Red Blood Cells % 0.0 Neutrophils # 9.8 H Lymphocytes # 1.4 Monocytes # 0.7 Eosinophils # 0.1 Basophils # 0.1 Nucleated Red Blood Cells # 0.0 Medications Medications Current Medications Miscellaneous Information 1 ea NOTE XX ; Start 01/17/17 at 10:00 Glucose (Glutose) 15 gm Q15M PRN PO DECREASED GLUCOSE; Start 01/17/17 at 10:00 Glucose (Glutose) 22.5 gm Q15M PRN PO DECREASED GLUCOSE; Start 01/17/17 at 10: 00 Dextrose (D50w Syringe) 25 ml Q15M PRN IV DECREASED GLUCOSE; Start 01/17/17 at 10:00 Dextrose (D50w Syringe) 50 ml Q15M PRN IV DECREASED GLUCOSE; Start 01/17/17 at 10:00 Glucagon (Glucagen) 1 mg Q15M PRN IM DECREASED GLUCOSE; Start 01/17/17 at 10:00 Glucose (Glutose) 15 gm Q15M PRN BUCCAL DECREASED GLUCOSE; Start 01/17/17 at 10 :00 Collagenase (Santyl) 1 applic DAILY TOP Last administered on 03/21/17 08:52; Admin Dose 1 APPLIC; Start 01/17/17 at 21:00 IV Flush (NS 10 ml) 10 ml PRN PRN IV IV PROTOCOL Last administered on 21:45; Admin Dose 10 ML; Start 01/22/17 at 12:00 Miscellaneous Information (Pending Santyl Order For Wound Care) This patient dunaway... PRN PRN XX WOUND CARE; Start 01/24/17 at 07:30 Bisacodyl (Dulcolax Supp) 10 mg DAILY PRN [place] CONSTIPATION Last administered on 02/24/17 15:02; Admin Dose 10 MG; Start 01/25/17 at 16:30 Acetaminophen (Tylenol Liquid) 650 mg Q4H PRN NGT PAIN AND OR ELEVATED TEMP Last administered on 03/21/17 04:26; Admin Dose 650 MG; Start 01/26/17 at 09:00 Metoprolol Tartrate (Lopressor) 2.5 mg Q4H PRN IV HR > 110 Last administered on 02/23/17 03:58; Admin Dose 2.5 MG; Start 01/26/17 at 15:00 Nystatin (Nystatin Powder) 1 applic BID TOP Last administered on 03/21/17 08: 52; Admin Dose 1 APPLIC; Start 02/04/17 at 12:00 Eye Lubricant (Artificial Tears Oph) 2 drop Q6H PRN BOTH EYES DRY EYES Last administered on 03/16/17 20:33; Admin Dose 2 DROP; Start 02/13/17 at 15:30 Nystatin (Nystatin Susp) 5 ml QID GTB Last administered on 03/21/17 08:51; Admin Dose 5 ML; Start 02/18/17 at 08:00 Lansoprazole (Prevacid) 30 mg BID@06,18 GTB Last administered on 03/21/17 06: 09; Admin Dose 30 MG; Start 02/18/17 at 18:00 Apixaban (Eliquis) 5 mg BID GTB Last administered on 03/21/17 08:51; Admin Dose 5 MG; Start 02/22/17 at 22:00 Digoxin (Digoxin) 0.125 mg DAILY@13 PO Last administered on 03/20/17 13:51; Admin Dose 0.125 MG; Start 03/12/17 at 13:00 Atenolol (Tenormin) 12.5 mg BID PO Last administered on 03/21/17 08:51; Admin Dose 12.5 MG; Start 03/12/17 at 21:00 Midodrine (Proamatine) 10 mg Q8 PRN GTB BLOOD PRESSURE SUPPORT Last administered on 03/21/17 04:26; Admin Dose 10 MG; Start 03/18/17 at 19:30 JOSE LOMAS Mar 21, 2017 12:12
[2017-03-21 12:18] LABS: ADD UMIC YES; UR ASCORBIC ACID 20 mg/dL (NEGATIVE); UR BACTERIA FEW /HPF (NONE SEEN); UR BILIRUBIN (Dip) NEGATIVE (NEGATIVE); UR BLOOD (Dip) NEGATIVE (NEGATIVE); UR CLARITY CLOUDY (CLEAR); UR COLOR YELLOW (YELLOW); UR GLUCOSE (Dip) NEGATIVE (NEGATIVE); UR KETONES (Dip) NEGATIVE (NEGATIVE); UR LEUKOCYTE ESTERASE (Dip) 3+ Leu/ul (NEGATIVE); UR NITRITE (Dip) NEGATIVE (NEGATIVE); UR RBC 7 /HPF (0-5); UR SPECIFIC GRAVITY (Dip) 1.008 (1.003-1.030); UR TOTAL PROTEIN (Dip) NEGATIVE (NEGATIVE); UR UROBILINOGEN (Dip) NEGATIVE (NEGATIVE)
--- NOTE | 2017-03-21 12:26 | CONS ---
Date/Time of Note Date/Time of Note DATE: 03/21/17 TIME: 12:25 Assessment/Plan Assessment/Plan Additional Assessment/Plan 1. AF-mainly rate controlled/Trop negative x 3. Had pause x 3.7 seconds 01/30 on standing IVP BB. Now back in tele - NO Class i indication for pacer now as HR is stable. Now rate controlled. 2.Hypotension-on midodrine - better now - HAD EPISODES OF LOW BP, resolved 3.encephalopathy/ams-slowly improving - marked REMARKABLE improvement 4.coagulopathy-now on eliquis 5. Acute Renal failure-Now resolved - good urine output now 6.Leukocytosis - on anti-Bx 7. Cardiomyopathy-EF 45% 8. Cephalic vein thrombosis 9. Dysphagia s/p PEG 10. H Pylori Consultation Date/Type/Reason Admit Date/Time Jan 16, 2017 at 15:19 Initial Consult Date 01/26/17 Type of Consultation: neurology Referring Provider: LAWRENCE PICKERING 24 HR Interval Summary Free Text/Dictation HAD EPISODES OF LOW BP, resolved ROS: No fever, no chills, no nausea, no vomiting, no diarrhea/constipation No recent weight changes No chest pain, no PND, no orthopnea No dizziness, blurred vision No thirst, no heat or cold intolerance Exam/Review of Systems Vital Signs Vitals Vital Signs Date Time Temp Pulse Resp B/P Pulse Ox O2 Delivery O2 Flow Rate FiO2 03/21/17 11:46 65 109/56 03/21/17 11:03 97.6 20 100 03/21/17 10:38 21 03/18/17 03:15 Room Air Intake and Output 03/20/17 03/20/17 03/21/17 15:00 23:00 07:00 Intake Total 1000 ml Output Total 500 ml Balance 500 ml Exam General: WN/WD/NAD, AOx 3 HEENT: Unicetric/atraumatic/EOMI (follow commands) NECK: JVD elevated, no thyromegaly Lymph: no lymphadenopathy HEART: Ir Irregular with no S3, II/ systolic murmur at apex LUNGS: Coarse sounds ABD: soft, NT, ND, +BS : Intact Neuro: non focal SKIN: chronic changes EXT: trace edema Results Result Diagram: 03/21/17 0626 03/20/17 0651 Results 24 hrs Laboratory Tests Test 03/21/17 06:26 9/17/17 11:30 White Blood Count 12.2 H Red Blood Count 3.99 L Hemoglobin 10.6 L Hematocrit 33.6 L Mean Corpuscular Volume 84.2 Mean Corpuscular Hemoglobin 26.6 L Mean Corpuscular Hemoglobin Concent 31.5 L Red Cell Distribution Width 16.6 H Platelet Count 313 Mean Platelet Volume 12.8 H Neutrophils % 80.2 H Lymphocytes % 11.1 L Monocytes % 6.1 Eosinophils % 1.2 Basophils % 0.7 Nucleated Red Blood Cells % 0.0 Neutrophils # 9.8 H Lymphocytes # 1.4 Monocytes # 0.7 Eosinophils # 0.1 Basophils # 0.1 Nucleated Red Blood Cells # 0.0 Urine Color YELLOW Urine Clarity CLOUDY A Urine pH 6.0 Urine Specific [place] 1.008 Urine Ketones NEGATIVE Urine Nitrite NEGATIVE Urine Bilirubin NEGATIVE Urine Urobilinogen NEGATIVE Urine Leukocyte Esterase 3+ H Urine Microscopic RBC 7 H Urine Microscopic WBC > 182 H Urine Bacteria FEW A Urine Hemoglobin NEGATIVE Urine Glucose NEGATIVE Urine Total Protein NEGATIVE Medications Medications Current Medications Miscellaneous Information 1 ea NOTE XX ; Start 01/17/17 at 10:00 Glucose (Glutose) 15 gm Q15M PRN PO DECREASED GLUCOSE; Start 01/17/17 at 10:00 Glucose (Glutose) 22.5 gm Q15M PRN PO DECREASED GLUCOSE; Start 01/17/17 at 10: 00 Dextrose (D50w Syringe) 25 ml Q15M PRN IV DECREASED GLUCOSE; Start 01/17/17 at 10:00 Dextrose (D50w Syringe) 50 ml Q15M PRN IV DECREASED GLUCOSE; Start 01/17/17 at 10:00 Glucagon (Glucagen) 1 mg Q15M PRN IM DECREASED GLUCOSE; Start 01/17/17 at 10:00 Glucose (Glutose) 15 gm Q15M PRN BUCCAL DECREASED GLUCOSE; Start 01/17/17 at 10 :00 Collagenase (Santyl) 1 applic DAILY TOP Last administered on 03/21/17 08:52; Admin Dose 1 APPLIC; Start 01/17/17 at 21:00 IV Flush (NS 10 ml) 10 ml PRN PRN IV IV PROTOCOL Last administered on 21:45; Admin Dose 10 ML; Start 01/22/17 at 12:00 Miscellaneous Information (Pending Santyl Order For Wound Care) This patient dunaway... PRN PRN XX WOUND CARE; Start 01/24/17 at 07:30 Bisacodyl (Dulcolax Supp) 10 mg DAILY PRN [place] CONSTIPATION Last administered on 02/24/17 15:02; Admin Dose 10 MG; Start 01/25/17 at 16:30 Acetaminophen (Tylenol Liquid) 650 mg Q4H PRN NGT PAIN AND OR ELEVATED TEMP Last administered on 03/21/17 04:26; Admin Dose 650 MG; Start 01/26/17 at 09:00 Metoprolol Tartrate (Lopressor) 2.5 mg Q4H PRN IV HR > 110 Last administered on 02/23/17 03:58; Admin Dose 2.5 MG; Start 01/26/17 at 15:00 Nystatin (Nystatin Powder) 1 applic BID TOP Last administered on 03/21/17 08: 52; Admin Dose 1 APPLIC; Start 02/04/17 at 12:00 Eye Lubricant (Artificial Tears Oph) 2 drop Q6H PRN BOTH EYES DRY EYES Last administered on 03/16/17 20:33; Admin Dose 2 DROP; Start 02/13/17 at 15:30 Nystatin (Nystatin Susp) 5 ml QID GTB Last administered on 03/21/17 08:51; Admin Dose 5 ML; Start 02/18/17 at 08:00 Lansoprazole (Prevacid) 30 mg BID@06,18 GTB Last administered on 03/21/17 06: 09; Admin Dose 30 MG; Start 02/18/17 at 18:00 Apixaban (Eliquis) 5 mg BID GTB Last administered on 03/21/17 08:51; Admin Dose 5 MG; Start 02/22/17 at 22:00 Digoxin (Digoxin) 0.125 mg DAILY@13 PO Last administered on 03/20/17 13:51; Admin Dose 0.125 MG; Start 03/12/17 at 13:00 Atenolol (Tenormin) 12.5 mg BID PO Last administered on 03/21/17 08:51; Admin Dose 12.5 MG; Start 03/12/17 at 21:00 Midodrine (Proamatine) 10 mg Q8 PRN GTB BLOOD PRESSURE SUPPORT Last administered on 03/21/17 04:26; Admin Dose 10 MG; Start 03/18/17 at 19:30 YAJAIRA ALVAREZ MD Mar 21, 2017 12:26
[2017-03-21] MEDS: DIGOXIN 0.125 MG TAB PO SCH (13:31)
--- NOTE | 2017-03-21 14:56 | CONS ---
Date/Time of Note Date/Time of Note DATE: 03/21/17 TIME: 14:42 Assessment/Plan Assessment/Plan Additional Assessment/Plan Assessment/impression: - Leukocytosis -BLOOD CULTURE Preliminary- Organism 1 GRAM POSITIVE COCCI BCULT GRAM BOTTLE 1 Gram positive cocci in pairs and chains, seen on gram stain of the broth BCULT GRAM BOTTLE 2 Gram positive cocci in pairs and chains, seen on gram stain of the broth -urine c/s, blood final c/s, sputum - pending - change FC - s/p UTI due to proteus - diffuse moderate degree of gastritis s/p EGD 02/15/2017 - gastritis due to H. pylori based on pathology 02/15/2017. S/p clarithromycin based regimen (02/20/2017-03/06/2017), [id number] - bleeding from GT site, and blood clots in tube feed - resolved - recurrent CVA - possible aspiration, improved - encephalopathy due to CVA. CSF from 01/19/2017: WBC=3, RBC=0, glu 53, pro=61, CSF ([place] serology negative, HSV negative, cocci CF negative, encephalitis meningitis panel could not be done due to a lack of sample), serum ([place] PCR negative, crypto antigen negative, cocci CF negative, histo CF negative). my order of crypto in CSF was cancelled and no reason given - bacteremia due to CoNS, probable contaminant. 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 . Consultation Date/Type/Reason Admit Date/Time Jan 16, 2017 at 15:19 Initial Consult Date 01/26/17 Type of Consultation: neurology Referring Provider: LAWRENCE PICKERING 24 HR Interval Summary Constitutional: requiring IVF Detailed Summary Respiratory: no complaints Cardiovascular: no complaints Gastrointestinal: no complaints Genitourinary: no complaints Musculoskeletal: no complaints Exam/Review of Systems Vital Signs Vitals Vital Signs Date Time Temp Pulse Resp B/P Pulse Ox O2 Delivery O2 Flow Rate FiO2 03/21/17 12:32 86 03/21/17 11:46 109/56 03/21/17 11:03 97.6 20 100 03/21/17 10:38 21 03/18/17 03:15 Room Air Intake and Output 03/20/17 03/20/17 03/21/17 15:00 23:00 07:00 Intake Total 1000 ml Output Total 500 ml Balance 500 ml Exam Constitutional: alert, well developed Respiratory: diminished breath sounds Cardiovascular: nl pulses, other (aflutter) Gastrointestinal: non-tender, soft Musculoskeletal: other Extremities: normal pulses Neurological: nl speech Results Result Diagram: 03/21/17 0626 03/20/17 0651 Results 24 hrs Laboratory Tests Test 03/21/17 06:26 03/21/17 11:30 White Blood Count 12.2 H Red Blood Count 3.99 L Hemoglobin 10.6 L Hematocrit 33.6 L Mean Corpuscular Volume 84.2 Mean Corpuscular Hemoglobin 26.6 L Mean Corpuscular Hemoglobin Concent 31.5 L Red Cell Distribution Width 16.6 H Platelet Count 313 Mean Platelet Volume 12.8 H Neutrophils % 80.2 H Lymphocytes % 11.1 L Monocytes % 6.1 Eosinophils % 1.2 Basophils % 0.7 Nucleated Red Blood Cells % 0.0 Neutrophils # 9.8 H Lymphocytes # 1.4 Monocytes # 0.7 Eosinophils # 0.1 Basophils # 0.1 Nucleated Red Blood Cells # 0.0 Urine Color YELLOW Urine Clarity CLOUDY A Urine pH 6.0 Urine Specific [place] 1.008 Urine Ketones NEGATIVE Urine Nitrite NEGATIVE Urine Bilirubin NEGATIVE Urine Urobilinogen NEGATIVE Urine Leukocyte Esterase 3+ H Urine Microscopic RBC 7 H Urine Microscopic WBC > 182 H Urine Bacteria FEW A Urine Hemoglobin NEGATIVE Urine Glucose NEGATIVE Urine Total Protein NEGATIVE Medications Medications Current Medications Miscellaneous Information 1 ea NOTE XX ; Start 01/17/17 at 10:00 Glucose (Glutose) 15 gm Q15M PRN PO DECREASED GLUCOSE; Start 01/17/17 at 10:00 Glucose (Glutose) 22.5 gm Q15M PRN PO DECREASED GLUCOSE; Start 01/17/17 at 10: 00 Dextrose (D50w Syringe) 25 ml Q15M PRN IV DECREASED GLUCOSE; Start 01/17/17 at 10:00 Dextrose (D50w Syringe) 50 ml Q15M PRN IV DECREASED GLUCOSE; Start 01/17/17 at 10:00 Glucagon (Glucagen) 1 mg Q15M PRN IM DECREASED GLUCOSE; Start 01/17/17 at 10:00 Glucose (Glutose) 15 gm Q15M PRN BUCCAL DECREASED GLUCOSE; Start 01/17/17 at 10 :00 Collagenase (Santyl) 1 applic DAILY TOP Last administered on 03/21/17 08:52; Admin Dose 1 APPLIC; Start 01/17/17 at 21:00 IV Flush (NS 10 ml) 10 ml PRN PRN IV IV PROTOCOL Last administered on 21:45; Admin Dose 10 ML; Start 01/22/17 at 12:00 Miscellaneous Information (Pending Santyl Order For Wound Care) This patient dunaway... PRN PRN XX WOUND CARE; Start 01/24/17 at 07:30 Bisacodyl (Dulcolax Supp) 10 mg DAILY PRN [place] CONSTIPATION Last administered on 02/24/17 15:02; Admin Dose 10 MG; Start 01/25/17 at 16:30 Acetaminophen (Tylenol Liquid) 650 mg Q4H PRN NGT PAIN AND OR ELEVATED TEMP Last administered on 03/21/17 13:45; Admin Dose 650 MG; Start 01/26/17 at 09:00 Metoprolol Tartrate (Lopressor) 2.5 mg Q4H PRN IV HR > 110 Last administered on 02/23/17 03:58; Admin Dose 2.5 MG; Start 01/26/17 at 15:00 Nystatin (Nystatin Powder) 1 applic BID TOP Last administered on 03/21/17 08: 52; Admin Dose 1 APPLIC; Start 02/04/17 at 12:00 Eye Lubricant (Artificial Tears Oph) 2 drop Q6H PRN BOTH EYES DRY EYES Last administered on 03/16/17 20:33; Admin Dose 2 DROP; Start 02/13/17 at 15:30 Nystatin (Nystatin Susp) 5 ml QID GTB Last administered on 03/21/17 13:31; Admin Dose 5 ML; Start 02/18/17 at 08:00 Lansoprazole (Prevacid) 30 mg BID@06,18 GTB Last administered on 03/21/17 06: 09; Admin Dose 30 MG; Start 02/18/17 at 18:00 Apixaban (Eliquis) 5 mg BID GTB Last administered on 03/21/17 08:51; Admin Dose 5 MG; Start 02/22/17 at 22:00 Digoxin (Digoxin) 0.125 mg DAILY@13 PO Last administered on 03/21/17 13:31; Admin Dose 0.125 MG; Start 03/12/17 at 13:00 Atenolol (Tenormin) 12.5 mg BID PO Last administered on 03/21/17 08:51; Admin Dose 12.5 MG; Start 03/12/17 at 21:00 Midodrine (Proamatine) 10 mg Q8 PRN GTB BLOOD PRESSURE SUPPORT Last administered on 03/21/17 04:26; Admin Dose 10 MG; Start 03/18/17 at 19:30 ALEXIS NAJERA Mar 21, 2017 14:52
--- NOTE | 2017-03-21 18:17 | RADRPT ---
PROCEDURE: XR Chest. CLINICAL INDICATION: Fever and leukocytosis. TECHNIQUE: Single frontal view. COMPARISON: 02/19/2017. FINDINGS: The left arm PICC line remains in satisfactory position. The lungs are clear. The heart is enlarged. There is no pleural effusion. There is no pneumothorax. IMPRESSION: 1. Left arm PICC line. 2. Clear lungs. 3. Cardiomegaly. RPTAT: QQ .Catrachito Small MD, MD Date Time Electronically viewed and signed by .Catrachito Small MD, MD on 03/21/2017 18:16 .R/
[2017-03-22] VITALS (12 sets, daily range): BP systolic 103–131; BP diastolic 56–70; PULSE 80–99; RESP 15–20
[2017-03-22] MEDS: LEVALBUTEROL (NEB) 0.63 MG/3 ML AMP HHN SCH ×4 (01:38→21:35)
[2017-03-22] MEDS: LANSOPRAZOLE 30 MG CAP GTB SCH ×2 (05:00→17:26)
[2017-03-22] MEDS: ACETAMINOPHEN 650MG/20.3ML CUP NGT PRN (06:17)
[2017-03-22 07:26] LABS: ABNORMAL IP MESSAGE 1; BASOPHIL # 0.1 10^3/ul (0.0-0.1); BASOPHILS % 0.7 % (0.0-2.0); EOSINOPHILS # 0.1 10^3/ul (0.0-0.5); HEMOGLOBIN 10.4 g/dl (12.0-16.0); LYMPHOCYTES # 1.2 10^3/ul (0.8-2.9); LYMPHOCYTES % 10.1 % (15.0-51.0); MEAN CORPUSCULAR HEMOGLOBIN 26.4 pg (29.0-33.0); MEAN CORPUSCULAR HGB CONC 31.5 g/dl (32.0-37.0); MEAN CORPUSCULAR VOLUME 83.8 fl (82.0-101.0); MEAN PLATELET VOLUME 13.4 fl (7.4-10.4); MONOCYTE # 0.8 10^3/ul (0.3-0.9); MONOCYTES % 6.4 % (0.0-11.0); NEUTROPHIL # 9.8 10^3/ul (1.6-7.5); NEUTROPHILS % 81.1 % (39.0-77.0); PLATELET COUNT 289 10^3/UL (140-415); RED BLOOD COUNT 3.94 10^6/ul (4.20-5.40); RED CELL DISTRIBUTION WIDTH 16.4 % (11.5-14.5); WHITE BLOOD COUNT 12.1 10^3/ul (4.8-10.8)
[2017-03-22 07:27] LABS: POSITIVE DIFF @See below
[2017-03-22 07:48] LABS: CALCIUM 9.6 mg/dl (8.4-10.2); CREATININE 0.8 mg/dl (0.44-1.00); POTASSIUM 4.5 mmol/L (3.5-5.1)
--- NOTE | 2017-03-22 08:36 | CONS ---
Date/Time of Note Date/Time of Note DATE: 03/22/17 TIME: 08:35 Assessment/Plan Assessment/Plan Additional Assessment/Plan 1. AF-mainly rate controlled/Trop negative x 3. Had pause x 3.7 seconds 01/30 on standing IVP BB. Now back in tele - NO Class i indication for pacer now as HR is stable. Now rate controlled. RATE a little higher now - will monitor for now. 2.Hypotension-on midodrine - better now - HAD EPISODES OF LOW BP, resolved - now normotensive. 3.encephalopathy/ams-slowly improving - marked REMARKABLE improvement 4.coagulopathy-now on eliquis 5. Acute Renal failure-Now resolved - good urine output now 6.Leukocytosis - on anti-Bx 7. Cardiomyopathy-EF 45% 8. Cephalic vein thrombosis 9. Dysphagia s/p PEG 10. H Pylori Consultation Date/Type/Reason Admit Date/Time Jan 16, 2017 at 15:19 Initial Consult Date 01/26/17 Type of Consultation: neurology Referring Provider: LAWRENCE PICKERING 24 HR Interval Summary Free Text/Dictation RATE a little higher now - will monitor for now. ROS: No fever, no chills, no nausea, no vomiting, no diarrhea/constipation No recent weight changes No chest pain, no PND, no orthopnea No dizziness, blurred vision No thirst, no heat or cold intolerance (more alert) Exam/Review of Systems Vital Signs Vitals Vital Signs Date Time Temp Pulse Resp B/P Pulse Ox O2 Delivery O2 Flow Rate FiO2 03/22/17 08:23 96 21 03/22/17 08:22 113 20 03/22/17 07:37 98.3 106/56 Intake and Output 03/21/17 03/21/17 03/22/17 15:00 23:00 07:00 Intake Total 870 ml 980 ml 643 ml Output Total 1200 ml 1000 ml 750 ml Balance -330 ml -20 ml -107 ml Exam General: WN/WD/NAD, AOx 2-3 HEENT: Unicetric/atraumatic/EOMI (follows commands) NECK: JVD elevated, no thyromegaly Lymph: no lymphadenopathy HEART: Ir Iregular with no S3, II/ systolic murmur at apex LUNGS: Coarse sounds ABD: soft, NT, ND, +BS : Intact Neuro: non focal SKIN: chronic changes EXT: trace edema Results Result Diagram: 03/22/17 0608 03/22/17 0608 Results 24 hrs Laboratory Tests Test 03/21/17 11:30 03/22/17 06:08 Urine Color YELLOW Urine Clarity CLOUDY A Urine pH 6.0 Urine Specific [place] 1.008 Urine Ketones NEGATIVE Urine Nitrite NEGATIVE Urine Bilirubin NEGATIVE Urine Urobilinogen NEGATIVE Urine Leukocyte Esterase 3+ H Urine Microscopic RBC 7 H Urine Microscopic WBC > 182 H Urine Bacteria FEW A Urine Hemoglobin NEGATIVE Urine Glucose NEGATIVE Urine Total Protein NEGATIVE White Blood Count 12.1 H Red Blood Count 3.94 L Hemoglobin 10.4 L Hematocrit 33.0 L Mean Corpuscular Volume 83.8 Mean Corpuscular Hemoglobin 26.4 L Mean Corpuscular Hemoglobin Concent 31.5 L Red Cell Distribution Width 16.4 H Platelet Count 289 Mean Platelet Volume 13.4 H Neutrophils % 81.1 H Lymphocytes % 10.1 L Monocytes % 6.4 Eosinophils % 1.0 Basophils % 0.7 Nucleated Red Blood Cells % 0.0 Neutrophils # 9.8 H Lymphocytes # 1.2 Monocytes # 0.8 Eosinophils # 0.1 Basophils # 0.1 Nucleated Red Blood Cells # 0.0 Sodium Level 138 Potassium Level 4.5 Chloride Level 102 Carbon Dioxide Level 27 Anion Gap 14 Blood Urea Nitrogen 22 H Creatinine 0.80 Glucose Level 107 Calcium Level 9.6 Medications Medications Current Medications Miscellaneous Information 1 ea NOTE XX ; Start 01/17/17 at 10:00 Glucose (Glutose) 15 gm Q15M PRN PO DECREASED GLUCOSE; Start 01/17/17 at 10:00 Glucose (Glutose) 22.5 gm Q15M PRN PO DECREASED GLUCOSE; Start 01/17/17 at 10: 00 Dextrose (D50w Syringe) 25 ml Q15M PRN IV DECREASED GLUCOSE; Start 01/17/17 at 10:00 Dextrose (D50w Syringe) 50 ml Q15M PRN IV DECREASED GLUCOSE; Start 01/17/17 at 10:00 Glucagon (Glucagen) 1 mg Q15M PRN IM DECREASED GLUCOSE; Start 01/17/17 at 10:00 Glucose (Glutose) 15 gm Q15M PRN BUCCAL DECREASED GLUCOSE; Start 01/17/17 at 10 :00 Collagenase (Santyl) 1 applic DAILY TOP Last administered on 03/21/17t 08:52; Admin Dose 1 APPLIC; Start 01/17/17 at 21:00 IV Flush (NS 10 ml) 10 ml PRN PRN IV IV PROTOCOL Last administered on 21:45; Admin Dose 10 ML; Start 01/22/17 at 12:00 Miscellaneous Information [facility]) This patient dunaway... PRN PRN XX WOUND CARE; Start 01/24/17 at 07:30 Bisacodyl (Dulcolax Supp) 10 mg DAILY PRN [place] CONSTIPATION Last administered on 02/24/17 15:02; Admin Dose 10 MG; Start 01/25/17 at 16:30 Acetaminophen (Tylenol Liquid) 650 mg Q4H PRN NGT PAIN AND OR ELEVATED TEMP Last administered on 03/22/17 06:17; Admin Dose 650 MG; Start 01/26/17 at 09:00 Metoprolol Tartrate (Lopressor) 2.5 mg Q4H PRN IV HR > 110 Last administered on 02/23/17 03:58; Admin Dose 2.5 MG; Start 01/26/17 at 15:00 Nystatin (Nystatin Powder) 1 applic BID TOP Last administered on 03/21/17 20: 50; Admin Dose 1 APPLIC; Start 02/04/17 at 12:00 Eye Lubricant (Artificial Tears Oph) 2 drop Q6H PRN BOTH EYES DRY EYES Last administered on 03/16/17 20:33; Admin Dose 2 DROP; Start 02/13/17 at 15:30 Nystatin (Nystatin Susp) 5 ml QID GTB Last administered on 03/21/17 20:48; Admin Dose 5 ML; Start 02/18/17 at 08:00 Lansoprazole (Prevacid) 30 mg BID@06,18 GTB Last administered on 03/22/17 05: 00; Admin Dose 30 MG; Start 02/18/17 at 18:00 Apixaban (Eliquis) 5 mg BID GTB Last administered on 03/21/17 20:50; Admin Dose 5 MG; Start 02/22/17 at 22:00 Digoxin (Digoxin) 0.125 mg DAILY@13 PO Last administered on 03/21/17 13:31; Admin Dose 0.125 MG; Start 03/12/17 at 13:00 Atenolol (Tenormin) 12.5 mg BID PO Last administered on 03/21/17 20:49; Admin Dose 12.5 MG; Start 03/12/17 at 21:00 Midodrine (Proamatine) 10 mg Q8 PRN GTB BLOOD PRESSURE SUPPORT Last administered on 03/21/17 04:26; Admin Dose 10 MG; Start 03/18/17 at 19:30 YAJAIRA ALVAREZ MD Mar 22, 2017 08:36
[2017-03-22] MEDS: APIXABAN 5 MG TABLET GTB SCH ×2 (08:49→21:51)
[2017-03-22] MEDS: NYSTATIN SUSP 5 ML CUP GTB SCH ×4 (08:51→21:50)
[2017-03-22] MEDS: COLLAGENASE 30 GM TUBE TOP SCH (08:51)
[2017-03-22] MEDS: ATENOLOL 25 MG TAB PO SCH ×2 (08:51→21:51)
[2017-03-22] MEDS: NYSTATIN 30 GM POWDER BTL TOP SCH ×2 (08:51→21:52)
[2017-03-22] MEDS: DIGOXIN 0.125 MG TAB PO SCH (12:51)
--- NOTE | 2017-03-22 16:39 | PN ---
Date/Time of Note Date/Time of Note DATE: 03/22/17 TIME: 16:32 Assessment/Plan VTE Prophylaxis VTE Prophylaxis Intervention: SCD's Lines/Catheters IV [facility] PICC Line Central line still needed: Yes Urinary Cath still in place: Yes Reason Cath still needed: urinary retention Assessment/Plan Chief Complaint/Hosp Course Patient is awake alert, tolerates pured diet well, atrial fibrillation at controlled rate, she remains afebrile, has leukocytosis and positive blood cultures. RN Asked to call infection disease. Assessment/Plan - Bacteremia and recurrent UTI versus colonization. Dr. Hiro villeda is following in ID consultation. - Bilateral thalamic infarctions. Dr. Ramirez is following in neurology consultation. - Gastritis due to H. pylori, status post EGD, completed therapy per H. pylori eradication. - Dysphagia, status post G-tube placement by Dr. Garcia. - Atrial fibrillation with rapid ventricular response. Dr. Armenta is following and cardiology consultation. Continue Eliquis. Digoxin and atenolol. - Thrombosis of the bilateral cephalic veins. - Acute kidney injury, resolved. - History of CVA - History of hyperlipidemia Further recommendations based on clinical course. Plan of care discussed with Dr. Valdovinos. Problems: Exam/Review of Systems Vital Signs Vitals Vital Signs Date Time Temp Pulse Resp B/P Pulse Ox O2 Delivery O2 Flow Rate FiO2 03/22/17 16:02 95 03/22/17 15:23 98.7 18 110/57 99 03/22/17 14:42 21 Intake and Output 03/21/17 03/21/17 03/22/17 15:00 23:00 07:00 Intake Total 870 ml 980 ml 643 ml Output Total 1200 ml 1000 ml 750 ml Balance -330 ml -20 ml -107 ml Exam Constitutional: awake Respiratory: normal air movement Cardiovascular: irregular rhythm Gastrointestinal: non-tender, other (G-tube), soft Genitourinary - Female: other (Lees catheter) Musculoskeletal: muscle weakness Neurological: focal weakness Results Result Diagram: 03/22/17 0608 03/22/17 0608 Results 24 hrs Laboratory Tests Test 03/22/17 06:08 03/22/17 09:07 White Blood Count 12.1 H Red Blood Count 3.94 L Hemoglobin 10.4 L Hematocrit 33.0 L Mean Corpuscular Volume 83.8 Mean Corpuscular Hemoglobin 26.4 L Mean Corpuscular Hemoglobin Concent 31.5 L Red Cell Distribution Width 16.4 H Platelet Count 289 Mean Platelet Volume 13.4 H Neutrophils % 81.1 H Lymphocytes % 10.1 L Monocytes % 6.4 Eosinophils % 1.0 Basophils % 0.7 Nucleated Red Blood Cells % 0.0 Neutrophils # 9.8 H Lymphocytes # 1.2 Monocytes # 0.8 Eosinophils # 0.1 Basophils # 0.1 Nucleated Red Blood Cells # 0.0 Sodium Level 138 Potassium Level 4.5 Chloride Level 102 Carbon Dioxide Level 27 Anion Gap 14 Blood Urea Nitrogen 22 H Creatinine 0.80 Glucose Level 107 Calcium Level 9.6 Bedside Glucose 140 Medications Medications Current Medications Miscellaneous Information 1 ea NOTE XX ; Start 01/17/17 at 10:00 Glucose (Glutose) 15 gm Q15M PRN PO DECREASED GLUCOSE; Start 01/17/17 at 10:00 Glucose (Glutose) 22.5 gm Q15M PRN PO DECREASED GLUCOSE; Start 01/17/17 at 10: 00 Dextrose (D50w Syringe) 25 ml Q15M PRN IV DECREASED GLUCOSE; Start 01/17/17 at 10:00 Dextrose (D50w Syringe) 50 ml Q15M PRN IV DECREASED GLUCOSE; Start 01/17/17 at 10:00 Glucagon (Glucagen) 1 mg Q15M PRN IM DECREASED GLUCOSE; Start 01/17/17 at 10:00 Glucose (Glutose) 15 gm Q15M PRN BUCCAL DECREASED GLUCOSE; Start 01/17/17 at 10 :00 Collagenase (Santyl) 1 applic DAILY TOP Last administered on 03/22/17 08:51; Admin Dose 1 APPLIC; Start 01/17/17 at 21:00 IV Flush (NS 10 ml) 10 ml PRN PRN IV IV PROTOCOL Last administered on 21:45; Admin Dose 10 ML; Start 01/22/17 at 12:00 Miscellaneous Information (Pending Santyl Order For Wound Care) This patient dunaway... PRN PRN XX WOUND CARE; Start 01/24/17 at 07:30 Bisacodyl (Dulcolax Supp) 10 mg DAILY PRN [place] CONSTIPATION Last administered on 02/24/17 15:02; Admin Dose 10 MG; Start 01/25/17 at 16:30 Acetaminophen (Tylenol Liquid) 650 mg Q4H PRN NGT PAIN AND OR ELEVATED TEMP Last administered on 03/22/17 06:17; Admin Dose 650 MG; Start 01/26/17 at 09:00 Metoprolol Tartrate (Lopressor) 2.5 mg Q4H PRN IV HR > 110 Last administered on 02/23/17 03:58; Admin Dose 2.5 MG; Start 01/26/17 at 15:00 Nystatin (Nystatin Powder) 1 applic BID TOP Last administered on 03/22/17 08: 51; Admin Dose 1 APPLIC; Start 02/04/17 at 12:00 Eye Lubricant (Artificial Tears Oph) 2 drop Q6H PRN BOTH EYES DRY EYES Last administered on 03/16/17 20:33; Admin Dose 2 DROP; Start 02/13/17 at 15:30 Nystatin (Nystatin Susp) 5 ml QID GTB Last administered on 03/22/17 12:51; Admin Dose 5 ML; Start 02/18/17 at 08:00 Lansoprazole (Prevacid) 30 mg BID@06,18 GTB Last administered on 03/22/17 05: 00; Admin Dose 30 MG; Start 02/18/17 at 18:00 Apixaban (Eliquis) 5 mg BID GTB Last administered on 03/22/17 08:49; Admin Dose 5 MG; Start 02/22/17 at 22:00 Digoxin (Digoxin) 0.125 mg DAILY@13 PO Last administered on 03/22/17 12:51; Admin Dose 0.125 MG; Start 03/12/17 at 13:00 Atenolol (Tenormin) 12.5 mg BID PO Last administered on 03/22/17 08:51; Admin Dose 12.5 MG; Start 03/12/17 at 21:00 Midodrine (Proamatine) 10 mg Q8 PRN GTB BLOOD PRESSURE SUPPORT Last administered on 03/21/17 04:26; Admin Dose 10 MG; Start 03/18/17 at 19:30 LAWRENCE PICKERING Mar 22, 2017 16:39
[2017-03-22] MEDS ORDERED: VANCOMYCIN IV PER PHARMACY XX SCH (21:30)
[2017-03-22] MEDS: LEVOFLOXACIN 500MG/D5W (PMX) 100 ML IVPB SCH (21:51)
[2017-03-22] MEDS ORDERED: VANCOMYCIN 1.25 GM in SOD CHLORIDE 0.9% 250 ML IVPB SCH (23:00)
[2017-03-23] VITALS (10 sets, daily range): BP systolic 90–130; BP diastolic 58–67; PULSE 78–107; RESP 15–19
[2017-03-23] MEDS: LEVALBUTEROL (NEB) 0.63 MG/3 ML AMP HHN SCH ×4 (02:19→19:39)
[2017-03-23] MEDS: LANSOPRAZOLE 30 MG CAP GTB SCH ×2 (06:40→17:40)
[2017-03-23 07:31] LABS: ABNORMAL IP MESSAGE 1; BASOPHIL # 0.1 10^3/ul (0.0-0.1); BASOPHILS % 0.5 % (0.0-2.0); EOSINOPHILS # 0.2 10^3/ul (0.0-0.5); EOSINOPHILS % 1.5 % (0.0-7.0); HEMATOCRIT 32.6 % (37.0-47.0); HEMOGLOBIN 10.5 g/dl (12.0-16.0); LYMPHOCYTES # 1.1 10^3/ul (0.8-2.9); LYMPHOCYTES % 10.4 % (15.0-51.0); MEAN CORPUSCULAR HEMOGLOBIN 27.5 pg (29.0-33.0); MEAN CORPUSCULAR HGB CONC 32.2 g/dl (32.0-37.0); MEAN CORPUSCULAR VOLUME 85.3 fl (82.0-101.0); MEAN PLATELET VOLUME 13.1 fl (7.4-10.4); MONOCYTE # 0.8 10^3/ul (0.3-0.9); MONOCYTES % 7.2 % (0.0-11.0); NEUTROPHIL # 8.4 10^3/ul (1.6-7.5); NEUTROPHILS % 79.4 % (39.0-77.0); PLATELET COUNT 287 10^3/UL (140-415); POSITIVE DIFF @See below; RED BLOOD COUNT 3.82 10^6/ul (4.20-5.40); RED CELL DISTRIBUTION WIDTH 16.2 % (11.5-14.5); WHITE BLOOD COUNT 10.5 10^3/ul (4.8-10.8)
[2017-03-23 08:10] LABS: CALCIUM 9.7 mg/dl (8.4-10.2); CREATININE 0.75 mg/dl (0.44-1.00); POTASSIUM 4.1 mmol/L (3.5-5.1)
[2017-03-23] MEDS: COLLAGENASE 30 GM TUBE TOP SCH (09:00)
--- NOTE | 2017-03-23 09:20 | CONS ---
Date/Time of Note Date/Time of Note DATE: 03/23/17 TIME: 09:18 Assessment/Plan Assessment/Plan Additional Assessment/Plan 1. AF-mainly rate controlled - NO Class i indication for pacer now as HR is stable. Now rate controlled. RATE a little higher now - will monitor for now. 2.Hypotension-on midodrine - better now - HAD EPISODES OF LOW BP, resolved - now normotensive. 3.encephalopathy/ams-slowly improving - marked REMARKABLE improvement OCCASIONAL EPISODES OF AMS, NOW BACK TO BASELINE. 4.coagulopathy-now on eliquis 5. Acute Renal failure-Now resolved - good urine output now 6.Leukocytosis - on anti-Bx 7. Cardiomyopathy-EF 45% 8. Cephalic vein thrombosis 9. Dysphagia s/p PEG 10. H Pylori Consultation Date/Type/Reason Admit Date/Time Jan 16, 2017 at 15:19 Initial Consult Date 01/26/17 Type of Consultation: neurology Referring Provider: LAWRENCE PICKERING 24 HR Interval Summary Free Text/Dictation OCCASIONAL EPISODES OF AMS, NOW BACK TO BASELINE. ROS: No fever, no chills, no nausea, no vomiting, no diarrhea/constipation No recent weight changes No chest pain, no PND, no orthopnea No dizziness, blurred vision No thirst, no heat or cold intolerance Exam/Review of Systems Vital Signs Vitals Vital Signs Date Time Temp Pulse Resp B/P Pulse Ox O2 Delivery O2 Flow Rate FiO2 03/23/17 09:01 82 20 95 21 03/23/17 07:47 98.6 130/59 Intake and Output 03/22/17 03/22/17 03/23/17 14:59 22:59 06:59 Intake Total 1000 ml Balance 1000 ml Exam General: WN/WD/NAD, AOx 2-3 HEENT: Unicetric/atraumatic/EOMI (follows commands) NECK: JVD elevated, no thyromegaly Lymph: no lymphadenopathy HEART: regular with no S3, II/ systolic murmur at apex LUNGS: Coarse sounds ABD: soft, NT, ND, +BS : Intact Neuro: non focal SKIN: chronic changes EXT: trace edema Results Result Diagram: 03/23/17 0636 03/23/17 0636 Results 24 hrs Laboratory Tests Test 03/23/17 06:36 White Blood Count 10.5 Red Blood Count 3.82 L Hemoglobin 10.5 L Hematocrit 32.6 L Mean Corpuscular Volume 85.3 Mean Corpuscular Hemoglobin 27.5 L Mean Corpuscular Hemoglobin Concent 32.2 Red Cell Distribution Width 16.2 H Platelet Count 287 Mean Platelet Volume 13.1 H Neutrophils % 79.4 H Lymphocytes % 10.4 L Monocytes % 7.2 Eosinophils % 1.5 Basophils % 0.5 Nucleated Red Blood Cells % 0.0 Neutrophils # 8.4 H Lymphocytes # 1.1 Monocytes # 0.8 Eosinophils # 0.2 Basophils # 0.1 Nucleated Red Blood Cells # 0.0 Sodium Level 136 Potassium Level 4.1 Chloride Level 103 Carbon Dioxide Level 26 Anion Gap 11 Blood Urea Nitrogen 21 H Creatinine 0.75 Glucose Level 128 Calcium Level 9.7 Medications Medications Current Medications Miscellaneous Information 1 ea NOTE XX ; Start 01/17/17 at 10:00 Glucose (Glutose) 15 gm Q15M PRN PO DECREASED GLUCOSE; Start 01/17/17 at 10:00 Glucose (Glutose) 22.5 gm Q15M PRN PO DECREASED GLUCOSE; Start 01/17/17 at 10: 00 Dextrose (D50w Syringe) 25 ml Q15M PRN IV DECREASED GLUCOSE; Start 01/17/17 at 10:00 Dextrose (D50w Syringe) 50 ml Q15M PRN IV DECREASED GLUCOSE; Start 01/17/17 at 10:00 Glucagon (Glucagen) 1 mg Q15M PRN IM DECREASED GLUCOSE; Start 01/17/17 at 10:00 Glucose (Glutose) 15 gm Q15M PRN BUCCAL DECREASED GLUCOSE; Start 01/17/17 at 10 :00 Collagenase (Santyl) 1 applic DAILY TOP Last administered on 03/22/17 08:51; Admin Dose 1 APPLIC; Start 01/17/17 at 21:00 IV Flush (NS 10 ml) 10 ml PRN PRN IV IV PROTOCOL Last administered on 21:45; Admin Dose 10 ML; Start 01/22/17 at 12:00 Miscellaneous Information (Pending Santyl Order For Wound Care) This patient dunaway... PRN PRN XX WOUND CARE; Start 01/24/17 at 07:30 Bisacodyl (Dulcolax Supp) [address] CONSTIPATION Last administered on 02/24/17 15:02; Admin Dose 10 MG; Start 01/25/17 at 16:30 Acetaminophen (Tylenol Liquid) 650 mg Q4H PRN NGT PAIN AND OR ELEVATED TEMP Last administered on 03/22/17 06:17; Admin Dose 650 MG; Start 01/26/17 at 09:00 Metoprolol Tartrate (Lopressor) 2.5 mg Q4H PRN IV HR > 110 Last administered on 02/23/17 03:58; Admin Dose 2.5 MG; Start 01/26/17 at 15:00 Nystatin (Nystatin Powder) 1 applic BID TOP Last administered on 03/22/17 21: 52; Admin Dose 1 APPLIC; Start 02/04/17 at 12:00 Eye Lubricant (Artificial Tears Oph) 2 drop Q6H PRN BOTH EYES DRY EYES Last administered on 03/16/17 20:33; Admin Dose 2 DROP; Start 02/13/17 at 15:30 Nystatin (Nystatin Susp) 5 ml QID GTB Last administered on 03/22/17 21:50; Admin Dose 5 ML; Start 02/18/17 at 08:00 Lansoprazole (Prevacid) 30 mg BID@,18 GTB Last administered on 03/23/17 06: 40; Admin Dose 30 MG; Start 02/18/17 at 18:00 Apixaban (Eliquis) 5 mg BID GTB Last administered on 03/22/17 21:51; Admin Dose 5 MG; Start 02/22/17 at 22:00 Digoxin (Digoxin) 0.125 mg DAILY@13 PO Last administered on 03/22/17 12:51; Admin Dose 0.125 MG; Start 03/12/17 at 13:00 Atenolol (Tenormin) 12.5 mg BID PO Last administered on 03/22/17 21:51; Admin Dose 12.5 MG; Start 03/12/17 at 21:00 Midodrine 10 mg 10 mg Q8 PRN GTB BLOOD PRESSURE SUPPORT Last administered on 04:26; Admin Dose 10 MG; Start 03/18/17 at 19:30 Levofloxacin/ Dextrose 100 ml @ 50 mls/hr Q24H IVPB Last administered on 21:51; Admin Dose 50 MLS/HR; Start 03/22/17 at 22:00 Vancomycin HCl (Vancocin) 100 ml @ 100 mls/hr Q12H IVPB ; Start 03/23/17 at 17: 00 YAJAIRA ALVAREZ MD Mar 23, 2017 09:20
[2017-03-23] MEDS: NYSTATIN SUSP 5 ML CUP GTB SCH ×4 (09:41→21:47)
[2017-03-23] MEDS: APIXABAN 5 MG TABLET GTB SCH ×2 (09:41→21:46)
[2017-03-23] MEDS: ATENOLOL 25 MG TAB PO SCH ×2 (09:41→21:47)
[2017-03-23] MEDS: NYSTATIN 30 GM POWDER BTL TOP SCH ×2 (09:42→21:47)
--- NOTE | 2017-03-23 12:24 | PN ---
Date/Time of Note Date/Time of Note DATE: 03/23/17 TIME: 12:23 Assessment/Plan VTE Prophylaxis VTE Prophylaxis Intervention: SCD's Lines/Catheters IV Catheter Type (from [facility]): PICC Line Central line still needed: Yes Urinary Cath still in place: No Assessment/Plan Chief Complaint/Hosp Course Assessment/Plan - Bacteremia and recurrent UTI versus colonization. Dr. Hiro villeda is following in ID consultation. - Bilateral thalamic infarctions. Dr. Ramirez is following in neurology consultation. - Gastritis due to H. pylori, status post EGD, completed therapy per H. pylori eradication. - Dysphagia, status post G-tube placement by Dr. Garcia. - Atrial fibrillation with rapid ventricular response. Dr. Armenta is following and cardiology consultation. Continue Eliquis. Digoxin and atenolol. - Thrombosis of the bilateral cephalic veins. - Acute kidney injury, resolved. - History of CVA - History of hyperlipidemia Further recommendations based on clinical course. Plan of care discussed with Dr. Valdovinos. Problems: Exam/Review of Systems Vital Signs Vitals Vital Signs Date Time Temp Pulse Resp B/P Pulse Ox O2 Delivery O2 Flow Rate FiO2 03/23/17 12:00 107 03/23/17 11:13 98.8 17 121/67 96 03/23/17 09:01 21 Intake and Output 03/22/17 03/22/17 03/23/17 15:00 23:00 07:00 Intake Total 1000 ml Balance 1000 ml Exam Constitutional: awake Respiratory: normal air movement Cardiovascular: irregular rhythm Gastrointestinal: non-tender, other (G-tube), soft Genitourinary - Female: other (Lees catheter) Musculoskeletal: muscle weakness Neurological: focal weakness Results Result Diagram: 03/23/17 0636 03/23/17 0636 Results 24 hrs Laboratory Tests Test 03/23/17 06:36 White Blood Count 10.5 Red Blood Count 3.82 L Hemoglobin 10.5 L Hematocrit 32.6 L Mean Corpuscular Volume 85.3 Mean Corpuscular Hemoglobin 27.5 L Mean Corpuscular Hemoglobin Concent 32.2 Red Cell Distribution Width 16.2 H Platelet Count 287 Mean Platelet Volume 13.1 H Neutrophils % 79.4 H Lymphocytes % 10.4 L Monocytes % 7.2 Eosinophils % 1.5 Basophils % 0.5 Nucleated Red Blood Cells % 0.0 Neutrophils # 8.4 H Lymphocytes # 1.1 Monocytes # 0.8 Eosinophils # 0.2 Basophils # 0.1 Nucleated Red Blood Cells # 0.0 Sodium Level 136 Potassium Level 4.1 Chloride Level 103 Carbon Dioxide Level 26 Anion Gap 11 Blood Urea Nitrogen 21 H Creatinine 0.75 Glucose Level 128 Calcium Level 9.7 Medications Medications Current Medications Miscellaneous Information 1 ea NOTE XX ; Start 01/17/17 at 10:00 Glucose (Glutose) 15 gm Q15M PRN PO DECREASED GLUCOSE; Start 01/17/17 at 10:00 Glucose (Glutose) 22.5 gm Q15M PRN PO DECREASED GLUCOSE; Start 01/17/17 at 10: 00 Dextrose (D50w Syringe) 25 ml Q15M PRN IV DECREASED GLUCOSE; Start 01/17/17 at 10:00 Dextrose (D50w Syringe) 50 ml Q15M PRN IV DECREASED GLUCOSE; Start 01/17/17 at 10:00 Glucagon (Glucagen) 1 mg Q15M PRN IM DECREASED GLUCOSE; Start 01/17/17 at 10:00 Glucose (Glutose) 15 gm Q15M PRN BUCCAL DECREASED GLUCOSE; Start 01/17/17 at 10 :00 Collagenase (Santyl) 1 applic DAILY TOP Last administered on 03/22/17 08:51; Admin Dose 1 APPLIC; Start 01/17/17 at 21:00 IV Flush (NS 10 ml) 10 ml PRN PRN IV IV PROTOCOL Last administered on 21:45; Admin Dose 10 ML; Start 01/22/17 at 12:00 Miscellaneous Information (Pending Santyl Order For Wound Care) This patient dunaway... PRN PRN XX WOUND CARE; Start 01/24/17 at 07:30 Bisacodyl (Dulcolax Supp) 10 mg DAILY PRN [place] CONSTIPATION Last administered on 02/24/17 15:02; Admin Dose 10 MG; Start 01/25/17 at 16:30 Acetaminophen (Tylenol Liquid) 650 mg Q4H PRN NGT PAIN AND OR ELEVATED TEMP Last administered on 03/22/17 06:17; Admin Dose 650 MG; Start 01/26/17 at 09:00 Metoprolol Tartrate (Lopressor) 2.5 mg Q4H PRN IV HR > 110 Last administered on 02/23/17 03:58; Admin Dose 2.5 MG; Start 01/26/17 at 15:00 Nystatin (Nystatin Powder) 1 applic BID TOP Last administered on 03/23/17 09: 42; Admin Dose 1 APPLIC; Start 02/04/17 at 12:00 Eye Lubricant (Artificial Tears Oph) 2 drop Q6H PRN BOTH EYES DRY EYES Last administered on 03/16/17 20:33; Admin Dose 2 DROP; Start 02/13/17 at 15:30 Nystatin (Nystatin Susp) 5 ml QID GTB Last administered on 03/23/17 09:41; Admin Dose 5 ML; Start 02/18/17 at 08:00 Lansoprazole (Prevacid) 30 mg BID@18 GTB Last administered on 03/23/17 06: 40; Admin Dose 30 MG; Start 02/18/17 at 18:00 Apixaban (Eliquis) 5 mg BID GTB Last administered on 03/23/17 09:41; Admin Dose 5 MG; Start 02/22/17 at 22:00 Digoxin (Digoxin) 0.125 mg DAILY@13 PO Last administered on 03/22/17 12:51; Admin Dose 0.125 MG; Start 03/12/17 at 13:00 Atenolol (Tenormin) 12.5 mg BID PO Last administered on 03/23/17 09:41; Admin Dose 12.5 MG; Start 03/12/17 at 21:00 Midodrine 10 mg 10 mg Q8 PRN GTB BLOOD PRESSURE SUPPORT Last administered on 04:26; Admin Dose 10 MG; Start 03/18/17 at 19:30 Levofloxacin/ Dextrose 100 ml @ 50 mls/hr Q24H IVPB Last administered on 21:51; Admin Dose 50 MLS/HR; Start 03/22/17 at 22:00 Vancomycin HCl (Vancocin) 100 ml @ 100 mls/hr Q12H IVPB ; Start 03/23/17 at 17: 00 Miscellaneous Information (*Rx Drug Level Order Reminder*) VANCO TROUGH @ 1, 600 ON... ONCE ONCE XX ; Start 03/24/17 at 16:00; Stop 03/24/17 at 16:01 LAWRENCE PICKERING 19, 2017 12:24
[2017-03-23] MEDS: DIGOXIN 0.125 MG TAB PO SCH (13:08)
--- NOTE | 2017-03-23 15:11 | CONS ---
Date/Time of Note Date/Time of Note DATE: 03/23/17 TIME: 15:09 Assessment/Plan Assessment/Plan Chief Complaint/Hosp Course Assessment/impression: - sepsis due to bacteremia and UTI - enterococcus bacteremia likely due to line sepsis - UTI due to E. coli - s/p UTI due to proteus - dysphagia s/p PEG - diffuse moderate degree of gastritis s/p EGD 02/15/2017 - gastritis due to H. pylori based on pathology 02/15/2017, on clarithromycin based regimen (02/20/2017-), [id number] - bleeding from GT site, and blood clots in tube feed - resolved - recurrent CVA - possible aspiration, improved - encephalopathy due to CVA. CSF from 01/19/2017: WBC=3, RBC=0, glu 53, pro=61, CSF ([place] serology negative, HSV negative, cocci CF negative, encephalitis meningitis panel could not be done due to a lack of sample), serum ([place] PCR negative, crypto antigen negative, cocci CF negative, histo CF negative). my order of crypto in CSF was cancelled and no reason given - bacteremia due to CoNS, probable contaminant. 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) - A fib - h/o DVT - h/o LLE ischemia s/p thrombolysis and subsequent open thrombectomy and fasciotomy at [facility] 09/2015 - h/o thrombus on DEBBIE per records from [facility] - h/o funguria - Lees catheter was changed 02/11/2017 and subsequently removed recommendations: - Repeat blood cultures x2 sets (1 set from PICC line and 1 set peripherally) - Continue vancomycin and levofloxacin (03/22/2017-) - We recommend removal of PICC line and send tip for C&S - Line holiday recommended for at least 48 hours; pt with h/o difficult IV access - We recommend repeat TTE to r/o endocarditis Management d/w patient, her spouse, and pt's son Juan (via telephone), LEACHER Geni, RN Stefani and Dr. Bosch Problems: Consultation Date/Type/Reason Admit Date/Time Jan 16, 2017 at 15:19 Initial Consult Date 7/16/17 Type of Consultation: Infectious Disease Referring Provider: LAWRENCE PICKERING 24 HR Interval Summary Free Text/Dictation Pt was started on vancomycin and levaquin last night for GPC bacteremia and GNR UTI. Lees catheter was removed. Pt is eating with fair appetite and continues with GT feed. Exam/Review of Systems Vital Signs Vitals Vital Signs Date Time Temp Pulse Resp B/P Pulse Ox O2 Delivery O2 Flow Rate FiO2 03/23/17 14:20 86 20 96 21 03/23/17 11:13 98.8 121/67 Intake and Output 03/22/17 03/22/17 03/23/17 15:00 23:00 07:00 Intake Total 1000 ml Balance 1000 ml Exam Constitutional: alert, oriented, well-developed Head: atraumatic, normocephalic Respiratory: clear to auscultation No wheezing Cardiovascular: irregular rate and rhythm Gastrointestinal: other (G-tube intact), soft, No tender Genitourinary - Female: bladder flat Musculoskeletal: nl extremities to inspection, normal pulses Extremities: No edema, Other (L heel eschar/dressing is c/d/i) Neurological: Other (speech clear but soft, primarily [place] speaking; ESTEVZE) Skin: nl turgor Results Result Diagram: 03/23/17 0636 03/23/17 0636 Results 24 hrs Laboratory Tests Test 03/23/17 06:36 White Blood Count 10.5 Red Blood Count 3.82 L Hemoglobin 10.5 L Hematocrit 32.6 L Mean Corpuscular Volume 85.3 Mean Corpuscular Hemoglobin 27.5 L Mean Corpuscular Hemoglobin Concent 32.2 Red Cell Distribution Width 16.2 H Platelet Count 287 Mean Platelet Volume 13.1 H Neutrophils % 79.4 H Lymphocytes % 10.4 L Monocytes % 7.2 Eosinophils % 1.5 Basophils % 0.5 Nucleated Red Blood Cells % 0.0 Neutrophils # 8.4 H Lymphocytes # 1.1 Monocytes # 0.8 Eosinophils # 0.2 Basophils # 0.1 Nucleated Red Blood Cells # 0.0 Sodium Level 136 Potassium Level 4.1 Chloride Level 103 Carbon Dioxide Level 26 Anion Gap 11 Blood Urea Nitrogen 21 H Creatinine 0.75 Glucose Level 128 Calcium Level 9.7 Medications Medications Current Medications Miscellaneous Information 1 ea NOTE XX ; Start 01/17/17 at 10:00 Glucose (Glutose) 15 gm Q15M PRN PO DECREASED GLUCOSE; Start 01/17/17 at 10:00 Glucose (Glutose) 22.5 gm Q15M PRN PO DECREASED GLUCOSE; Start 01/17/17 at 10: 00 Dextrose (D50w Syringe) 25 ml Q15M PRN IV DECREASED GLUCOSE; Start 01/17/17 at 10:00 Dextrose (D50w Syringe) 50 ml Q15M PRN IV DECREASED GLUCOSE; Start 01/17/17 at 10:00 Glucagon (Glucagen) 1 mg Q15M PRN IM DECREASED GLUCOSE; Start 01/17/17 at 10:00 Glucose (Glutose) 15 gm Q15M PRN BUCCAL DECREASED GLUCOSE; Start 01/17/17 at 10 :00 Collagenase (Santyl) 1 applic DAILY TOP Last administered on 03/23/17 09:00; Admin Dose 1 APPLIC; Start 01/17/17 at 21:00 IV Flush (NS 10 ml) 10 ml PRN PRN IV IV PROTOCOL Last administered on 21:45; Admin Dose 10 ML; Start 01/22/17 at 12:00 Miscellaneous Information (Pending Santyl Order For Wound Care) This patient dunaway... PRN PRN XX WOUND CARE; Start 01/24/17 at 07:30 Bisacodyl (Dulcolax Supp) 10 mg DAILY PRN [place] CONSTIPATION Last administered on 02/24/17 15:02; Admin Dose 10 MG; Start 01/25/17 at 16:30 Acetaminophen (Tylenol Liquid) 650 mg Q4H PRN NGT PAIN AND OR ELEVATED TEMP Last administered on 03/22/17 06:17; Admin Dose 650 MG; Start 01/26/17 at 09:00 Metoprolol Tartrate (Lopressor) 2.5 mg Q4H PRN IV HR > 110 Last administered on 02/23/17 03:58; Admin Dose 2.5 MG; Start 01/26/17 at 15:00 Nystatin (Nystatin Powder) 1 applic BID TOP Last administered on 03/23/17 09: 42; Admin Dose 1 APPLIC; Start 02/04/17 at 12:00 Eye Lubricant (Artificial Tears Oph) 2 drop Q6H PRN BOTH EYES DRY EYES Last administered on 03/16/17 20:33; Admin Dose 2 DROP; Start 02/13/17 at 15:30 Nystatin (Nystatin Susp) 5 ml QID GTB Last administered on 03/23/17 13:07; Admin Dose 5 ML; Start 02/18/17 at 08:00 Lansoprazole (Prevacid) 30 mg BID@06,18 GTB Last administered on 03/23/17 06: 40; Admin Dose 30 MG; Start 02/18/17 at 18:00 Apixaban (Eliquis) 5 mg BID GTB Last administered on 03/23/17 09:41; Admin Dose 5 MG; Start 02/22/17 at 22:00 Digoxin (Digoxin) 0.125 mg DAILY@13 PO Last administered on 03/23/17 13:08; Admin Dose 0.125 MG; Start 03/12/17 at 13:00 Atenolol (Tenormin) 12.5 mg BID PO Last administered on 03/23/17 09:41; Admin Dose 12.5 MG; Start 03/12/17 at 21:00 Midodrine 10 mg 10 mg Q8 PRN GTB BLOOD PRESSURE SUPPORT Last administered on 04:26; Admin Dose 10 MG; Start 03/18/17 at 19:30 Levofloxacin/ Dextrose 100 ml @ 50 mls/hr Q24H IVPB Last administered on 21:51; Admin Dose 50 MLS/HR; Start 03/22/17 at 22:00 Vancomycin HCl (Vancocin) 100 ml @ 100 mls/hr Q12H IVPB ; Start 03/23/17 at 17: 00 Miscellaneous Information (*Rx Drug Level Order Reminder*) VANCO TROUGH @ 1, 600 ON... ONCE ONCE XX ; Start 03/24/17 at 16:00; Stop 03/24/17 at 16:01 Procedures Procedures CXR 03/21/2017: 1. Left arm PICC line. 2. Clear lungs. 3. Cardiomegaly. GIRISH SCHMITZ LEACHER Mar 23, 2017 15:11
[2017-03-23] MEDS: VANCOMYCIN 500MG/NS (PMX) 100 ML IVPB SCH (17:41)
[2017-03-23] MEDS: LEVOFLOXACIN 500MG/D5W (PMX) 100 ML IVPB SCH (21:48)
[2017-03-24] VITALS (12 sets, daily range): BP systolic 100–176; BP diastolic 56–80; PULSE 73–103; RESP 16–19
[2017-03-24] MEDS: LEVALBUTEROL (NEB) 0.63 MG/3 ML AMP HHN SCH ×4 (02:08→19:31)
[2017-03-24] MEDS: LANSOPRAZOLE 30 MG CAP GTB SCH ×2 (05:43→18:01)
[2017-03-24] MEDS: VANCOMYCIN 500MG/NS (PMX) 100 ML IVPB SCH ×2 (05:43→18:01)
[2017-03-24 07:26] LABS: BASOPHIL # 0.1 10^3/ul (0.0-0.1); BASOPHILS % 0.5 % (0.0-2.0); EOSINOPHILS # 0.2 10^3/ul (0.0-0.5); EOSINOPHILS % 1.8 % (0.0-7.0); HEMOGLOBIN 9.8 g/dl (12.0-16.0); LYMPHOCYTES # 1.3 10^3/ul (0.8-2.9); LYMPHOCYTES % 12.6 % (15.0-51.0); MEAN CORPUSCULAR HEMOGLOBIN 26.8 pg (29.0-33.0); MEAN CORPUSCULAR HGB CONC 31.6 g/dl (32.0-37.0); MEAN CORPUSCULAR VOLUME 84.7 fl (82.0-101.0); MEAN PLATELET VOLUME 12.7 fl (7.4-10.4); MONOCYTE # 0.9 10^3/ul (0.3-0.9); MONOCYTES % 8.9 % (0.0-11.0); NEUTROPHIL # 7.5 10^3/ul (1.6-7.5); NEUTROPHILS % 74.6 % (39.0-77.0); PLATELET COUNT 292 10^3/UL (140-415); RED BLOOD COUNT 3.66 10^6/ul (4.20-5.40); RED CELL DISTRIBUTION WIDTH 16.3 % (11.5-14.5)
[2017-03-24 07:53] LABS: CALCIUM 9.7 mg/dl (8.4-10.2); CREATININE 0.77 mg/dl (0.44-1.00); POTASSIUM 4.2 mmol/L (3.5-5.1)
[2017-03-24] MEDS: ATENOLOL 25 MG TAB PO SCH ×2 (08:37→20:38)
[2017-03-24] MEDS: APIXABAN 5 MG TABLET GTB SCH ×2 (08:37→20:39)
[2017-03-24] MEDS: NYSTATIN 30 GM POWDER BTL TOP SCH ×2 (08:37→20:39)
[2017-03-24] MEDS: NYSTATIN SUSP 5 ML CUP GTB SCH ×4 (08:37→20:35)
[2017-03-24] MEDS: COLLAGENASE 30 GM TUBE TOP SCH (09:00)
[2017-03-24] MEDS: DIGOXIN 0.125 MG TAB PO SCH (13:01)
--- NOTE | 2017-03-24 14:21 | CONS ---
Date/Time of Note Date/Time of Note DATE: 03/24/17 TIME: 13:39 Assessment/Plan Assessment/Plan Additional Assessment/Plan - sepsis due to bacteremia and UTI - BLOOD CULTURE Preliminary BCULT GRAM BOTTLE 1 Gram positive cocci in pairs and chains . seen on gram stain of the broth Organism 1 GRAM POS COCCI IN PAIRS,CHAIN - enterococcus bacteremia likely due to line sepsis - UTI due to E. coli - s/p UTI due to proteus - dysphagia s/p PEG - diffuse moderate degree of gastritis s/p EGD 02/15/2017 - gastritis due to H. pylori based on pathology 02/15/2017, on clarithromycin based regimen (02/20/2017-), [id number] - bleeding from GT site, and blood clots in tube feed - resolved - recurrent CVA - possible aspiration, improved - encephalopathy due to CVA. CSF from 01/19/2017: WBC=3, RBC=0, glu 53, pro=61, CSF ([place] serology negative, HSV negative, cocci CF negative, encephalitis meningitis panel could not be done due to a lack of sample), serum ([place] PCR negative, crypto antigen negative, cocci CF negative, histo CF negative). my order of crypto in CSF was cancelled and no reason given - bacteremia due to CoNS, probable contaminant. 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 seen on gram stain of the broth Organism 1 GRAM POS COCCI IN PAIRS,CHAIN - Continue vancomycin and levofloxacin (03/22/2017-) - We recommend removal of PICC line and send tip for C&S - Line holiday recommended for at least 48 hours; pt with h/o difficult IV access - We recommend repeat TTE to r/o endocarditis Management d/w patient, her spouse, and pt's son Juan (via telephone), CLAY MINE CUTTING MACHINE OPERATOR NARESH Pickering and Dr. Bosch Problems: Consultation Date/Type/Reason Admit Date/Time Jan 16, 2017 at 15:19 Initial Consult Date 01/26/17 Type of Consultation: Infectious Disease Referring Provider: LAWRENCE PICKERING 24 HR Interval Summary Free Text/Dictation AFebrile, on Vanco. Levofloxacin.WBC wnl. denies any complaints. Son at bed side, patient is crying while talking to her sister on phone- dw staff- recommended forensic social worker consult. Constitutional: requiring O2 Detailed Summary Cardiovascular: no complaints Gastrointestinal: no complaints Musculoskeletal: no complaints Exam/Review of Systems Vital Signs Vitals Vital Signs Date Time Temp Pulse Resp B/P Pulse Ox O2 Delivery O2 Flow Rate FiO2 03/24/17 12:11 73 03/24/17 11:37 98.4 18 133/61 100 03/24/17 07:44 21 Intake and Output 03/23/17 03/23/17 03/24/17 15:00 23:00 07:00 Intake Total 1100 ml 1000 ml Balance 1100 ml 1000 ml Exam Constitutional: alert Respiratory: clear to auscultation, normal air movement Cardiovascular: nl pulses, other (a fib) Gastrointestinal: non-tender, soft Musculoskeletal: nl extremities to inspection Neurological: other Results Result Diagram: 03/24/17 0649 03/24/17 0649 Results 24 hrs Laboratory Tests Test 03/24/17 06:49 White Blood Count 10.0 Red Blood Count 3.66 L Hemoglobin 9.8 L Hematocrit 31.0 L Mean Corpuscular Volume 84.7 Mean Corpuscular Hemoglobin 26.8 L Mean Corpuscular Hemoglobin Concent 31.6 L Red Cell Distribution Width 16.3 H Platelet Count 292 Mean Platelet Volume 12.7 H Neutrophils % 74.6 Lymphocytes % 12.6 L Monocytes % 8.9 Eosinophils % 1.8 Basophils % 0.5 Nucleated Red Blood Cells % 0.0 Neutrophils # 7.5 Lymphocytes # 1.3 Monocytes # 0.9 Eosinophils # 0.2 Basophils # 0.1 Nucleated Red Blood Cells # 0.0 Sodium Level 138 Potassium Level 4.2 Chloride Level 104 Carbon Dioxide Level 27 Anion Gap 11 Blood Urea Nitrogen 22 H Creatinine 0.77 Glucose Level 107 Calcium Level 9.7 Medications Medications Current Medications Miscellaneous Information 1 ea NOTE XX ; Start 01/17/17 at 10:00 Glucose (Glutose) 15 gm Q15M PRN PO DECREASED GLUCOSE; Start 01/17/17 at 10:00 Glucose (Glutose) 22.5 gm Q15M PRN PO DECREASED GLUCOSE; Start 01/17/17 at 10: 00 Dextrose (D50w Syringe) 25 ml Q15M PRN IV DECREASED GLUCOSE; Start 01/17/17 at 10:00 Dextrose (D50w Syringe) 50 ml Q15M PRN IV DECREASED GLUCOSE; Start 01/17/17 at 10:00 Glucagon (Glucagen) 1 mg Q15M PRN IM DECREASED GLUCOSE; Start 01/17/17 at 10:00 Glucose (Glutose) 15 gm Q15M PRN BUCCAL DECREASED GLUCOSE; Start 01/17/17 at 10 :00 Collagenase (Santyl) 1 applic DAILY TOP Last administered on 03/23/17 09:00; Admin Dose 1 APPLIC; Start 01/17/17 at 21:00 IV Flush (NS 10 ml) 10 ml PRN PRN IV IV PROTOCOL Last administered on 21:45; Admin Dose 10 ML; Start 01/22/17 at 12:00 Miscellaneous Information (Pending Santyl Order For Wound Care) This patient dunaway... PRN PRN XX WOUND CARE; Start 01/24/17 at 07:30 Bisacodyl (Dulcolax Supp) 10 mg DAILY PRN [place] CONSTIPATION Last administered on 02/24/17 15:02; Admin Dose 10 MG; Start 01/25/17 at 16:30 Acetaminophen (Tylenol Liquid) 650 mg Q4H PRN NGT PAIN AND OR ELEVATED TEMP Last administered on 03/22/17 06:17; Admin Dose 650 MG; Start 01/26/17 at 09:00 Metoprolol Tartrate (Lopressor) 2.5 mg Q4H PRN IV HR > 110 Last administered on 02/23/17 03:58; Admin Dose 2.5 MG; Start 01/26/17 at 15:00 Nystatin (Nystatin Powder) 1 applic BID TOP Last administered on 03/24/17 08: 37; Admin Dose 1 APPLIC; Start 02/04/17 at 12:00 Eye Lubricant (Artificial Tears Oph) 2 drop Q6H PRN BOTH EYES DRY EYES Last administered on 03/16/17 20:33; Admin Dose 2 DROP; Start 02/13/17 at 15:30 Nystatin (Nystatin Susp) 5 ml QID GTB Last administered on 03/24/17 13:01; Admin Dose 5 ML; Start 02/18/17 at 08:00 Lansoprazole (Prevacid) 30 mg BID@06,18 GTB Last administered on 03/24/17 05: 43; Admin Dose 30 MG; Start 02/18/17 at 18:00 Apixaban (Eliquis) 5 mg BID GTB Last administered on 03/24/17 08:37; Admin Dose 5 MG; Start 02/22/17 at 22:00 Digoxin (Digoxin) 0.125 mg DAILY@13 PO Last administered on 03/24/17 13:01; Admin Dose 0.125 MG; Start 03/12/17 at 13:00 Atenolol (Tenormin) 12.5 mg BID PO Last administered on 03/24/17 08:37; Admin Dose 12.5 MG; Start 03/12/17 at 21:00 Midodrine 10 mg 10 mg Q8 PRN GTB BLOOD PRESSURE SUPPORT Last administered on 04:26; Admin Dose 10 MG; Start 03/18/17 at 19:30 Levofloxacin/ Dextrose 100 ml @ 50 mls/hr Q24H IVPB Last administered on 21:48; Admin Dose 50 MLS/HR; Start 03/22/17 at 22:00 Vancomycin HCl (Vancocin) 100 ml @ 100 mls/hr Q12H IVPB Last administered on 05:43; Admin Dose 100 MLS/HR; Start 03/23/17 at 17:00 Miscellaneous Information (*Rx Drug Level Order Reminder*) VANCO TROUGH @ 1, 600 ON... ONCE ONCE XX ; Start 03/24/17 at 16:00; Stop 03/24/17 at 16:01 Procedures Procedures BLOOD CULTURE Preliminary BCULT GRAM BOTTLE 1 Gram positive cocci in pairs and chains . seen on gram stain of the broth Organism 1 GRAM POS COCCI IN PAIRS,CHAIN ALEXIS NAJERA Mar 24, 2017 13:50
--- NOTE | 2017-03-24 14:36 | CONS ---
Date/Time of Note Date/Time of Note DATE: 03/24/17 TIME: 14:32 Assessment/Plan Assessment/Plan Chief Complaint/Hosp Course IMP: 1. AF-mainly rate controlled/Trop negative x 3. Had pause x 3.7 seconds 01/30 on standing IVP BB. Now back in tele 2.Hypotension-on midodrine 3.encephalopathy/ams-slowly improving 4.coagulopathy-now on eliquis 5. Acute Renal failure-Now resolved 6.Leukocytosis 7. Cardiomyopathy-EF 45% 8. Cephalic vein thrombosis 9. Dysphagia s/p PEG 10. H Pylori Recc: -Tele -serial ecg's -Cont. Eliquis -Continue low dose BB as tolerated only with atenolol -Continue abx's -Follow MS closely which has had some significant improvement -Continue midodrine for low BP as necessary -IVF bolus -Continue PPI -Continue PO digoxin and will give additional dose of IV digoxin to improve HR control -No definite indication for PPM at this time Problems: Consultation Date/Type/Reason Admit Date/Time Jan 16, 2017 at 15:19 Initial Consult Date 01/17/17 Type of Consultation: cardiology Reason for Consultation AF Referring Provider: LAWRENCE PICKERING Exam/Review of Systems Vital Signs Vitals Vital Signs Date Time Temp Pulse Resp B/P Pulse Ox O2 Delivery O2 Flow Rate FiO2 03/24/17 12:11 73 03/24/17 11:37 98.4 18 133/61 100 03/24/17 07:44 21 Intake and Output 03/23/17 03/23/17 03/24/17 15:00 23:00 07:00 Intake Total 1100 ml 1000 ml Balance 1100 ml 1000 ml Exam Review of Systems: CONSTITUTIONAL: No fevers, chills. PULMONARY: No sob CARDIOVASCULAR: No chest pain/palpitations GASTROINTESTINAL: No nausea/vomiting. GENITOURINARY: No hematuria/dysuria. MUSCULOSKELETAL: No myagias/arthalgias. PSYCHIATRIC: The patient denies depression. NEUROLOGIC: No weakness Constitutional: alert Psych: no complaints Head: normocephalic ENMT: mucosa pink and moist Neck: jvd (9 cm water), supple Respiratory: diminished breath sounds Cardiovascular: irregular rhythm Gastrointestinal: non-tender, soft Musculoskeletal: muscle tone (normal) Extremities: edema Neurological: lethargic Results Result Diagram: 03/24/17 0649 03/24/17 0649 Results 24 hrs Laboratory Tests Test 03/24/17 06:49 White Blood Count 10.0 Red Blood Count 3.66 L Hemoglobin 9.8 L Hematocrit 31.0 L Mean Corpuscular Volume 84.7 Mean Corpuscular Hemoglobin 26.8 L Mean Corpuscular Hemoglobin Concent 31.6 L Red Cell Distribution Width 16.3 H Platelet Count 292 Mean Platelet Volume 12.7 H Neutrophils % 74.6 Lymphocytes % 12.6 L Monocytes % 8.9 Eosinophils % 1.8 Basophils % 0.5 Nucleated Red Blood Cells % 0.0 Neutrophils # 7.5 Lymphocytes # 1.3 Monocytes # 0.9 Eosinophils # 0.2 Basophils # 0.1 Nucleated Red Blood Cells # 0.0 Sodium Level 138 Potassium Level 4.2 Chloride Level 104 Carbon Dioxide Level 27 Anion Gap 11 Blood Urea Nitrogen 22 H Creatinine 0.77 Glucose Level 107 Calcium Level 9.7 Medications Medications Current Medications Miscellaneous Information 1 ea NOTE XX ; Start 01/17/17 at 10:00 Glucose (Glutose) 15 gm Q15M PRN PO DECREASED GLUCOSE; Start 01/17/17 at 10:00 Glucose (Glutose) 22.5 gm Q15M PRN PO DECREASED GLUCOSE; Start 01/17/17 at 10: 00 Dextrose (D50w Syringe) 25 ml Q15M PRN IV DECREASED GLUCOSE; Start 01/17/17 at 10:00 Dextrose (D50w Syringe) 50 ml Q15M PRN IV DECREASED GLUCOSE; Start 01/17/17 at 10:00 Glucagon (Glucagen) 1 mg Q15M PRN IM DECREASED GLUCOSE; Start 01/17/17 at 10:00 Glucose (Glutose) 15 gm Q15M PRN BUCCAL DECREASED GLUCOSE; Start 01/17/17 at 10 :00 Collagenase (Santyl) 1 applic DAILY TOP Last administered on 03/23/17 09:00; Admin Dose 1 APPLIC; Start 01/17/17 at 21:00 IV Flush (NS 10 ml) 10 ml PRN PRN IV IV PROTOCOL Last administered on 21:45; Admin Dose 10 ML; Start 01/22/17 at 12:00 Miscellaneous Information (Pending Santyl Order For Wound Care) This patient dunaway... PRN PRN XX WOUND CARE; Start 01/24/17 at 07:30 Bisacodyl (Dulcolax Supp) 10 mg DAILY PRN [place] CONSTIPATION Last administered on 02/24/17 15:02; Admin Dose 10 MG; Start 01/25/17 at 16:30 Acetaminophen (Tylenol Liquid) 650 mg Q4H PRN NGT PAIN AND OR ELEVATED TEMP Last administered on 03/22/17 06:17; Admin Dose 650 MG; Start 01/26/17 at 09:00 Metoprolol Tartrate (Lopressor) 2.5 mg Q4H PRN IV HR > 110 Last administered on 02/23/17 03:58; Admin Dose 2.5 MG; Start 01/26/17 at 15:00 Nystatin (Nystatin Powder) 1 applic BID TOP Last administered on 03/24/17 08: 37; Admin Dose 1 APPLIC; Start 02/04/17 at 12:00 Eye Lubricant (Artificial Tears Oph) 2 drop Q6H PRN BOTH EYES DRY EYES Last administered on 03/16/17 20:33; Admin Dose 2 DROP; Start 02/13/17 at 15:30 Nystatin (Nystatin Susp) 5 ml QID GTB Last administered on 03/24/17 13:01; Admin Dose 5 ML; Start 02/18/17 at 08:00 Lansoprazole (Prevacid) 30 mg BID@06,18 GTB Last administered on 03/24/17 05: 43; Admin Dose 30 MG; Start 02/18/17 at 18:00 Apixaban (Eliquis) 5 mg BID GTB Last administered on 03/24/17 08:37; Admin Dose 5 MG; Start 02/22/17 at 22:00 Digoxin (Digoxin) 0.125 mg DAILY@13 PO Last administered on 03/24/17 13:01; Admin Dose 0.125 MG; Start 03/12/17 at 13:00 Atenolol (Tenormin) 12.5 mg BID PO Last administered on 03/24/17 08:37; Admin Dose 12.5 MG; Start 03/12/17 at 21:00 Midodrine 10 mg 10 mg Q8 PRN GTB BLOOD PRESSURE SUPPORT Last administered on 04:26; Admin Dose 10 MG; Start 03/18/17 at 19:30 Levofloxacin/ Dextrose 100 ml @ 50 mls/hr Q24H IVPB Last administered on 21:48; Admin Dose 50 MLS/HR; Start 03/22/17 at 22:00 Vancomycin HCl (Vancocin) 100 ml @ 100 mls/hr Q12H IVPB Last administered on t 05:43; Admin Dose 100 MLS/HR; Start 03/23/17 at 17:00 Miscellaneous Information (*Rx Drug Level Order Reminder*) VANCO TROUGH @ 1, 600 ON... ONCE ONCE XX ; Start 03/24/17 at 16:00; Stop 03/24/17 at 16:01 MINOO REY Mar 24, 2017 14:36
[2017-03-24] MEDS ORDERED: DIGOXIN 500 MCG INJ IV ONE (15:00)
--- NOTE | 2017-03-24 17:05 | PN ---
Date/Time of Note Date/Time of Note DATE: 03/24/17 TIME: 16:58 Assessment/Plan VTE Prophylaxis VTE Prophylaxis Intervention: SCD's Lines/Catheters IV Catheter Type (from Nrs): PICC Line Central line still needed: Yes Urinary Cath still in place: No Assessment/Plan Chief Complaint/Hosp Course Pt remains afebrile, obtain peripheral IV, d/c PICC line, send tip for cx. Dr Armenta, cardiology is asked to repeat DEBBIE to r/o endocarditis. Assessment/Plan - Bacteremia and recurrent UTI versus colonization. Dr. Hiro villeda is following in ID consultation. - Bilateral thalamic infarctions. Dr. Ramirez is following in neurology consultation. - Gastritis due to H. pylori, status post EGD, completed therapy per H. pylori eradication. - Dysphagia, status post G-tube placement by Dr. Garcia. - Atrial fibrillation with rapid ventricular response. Dr. Armenta is following and cardiology consultation. Continue Eliquis. Digoxin and atenolol. - Thrombosis of the bilateral cephalic veins. - Acute kidney injury, resolved. - History of CVA - History of hyperlipidemia Further recommendations based on clinical course. Plan of care discussed with Dr. Valdovinos. Problems: Exam/Review of Systems Vital Signs Vitals Vital Signs Date Time Temp Pulse Resp B/P Pulse Ox O2 Delivery O2 Flow Rate FiO2 03/24/17 16:41 92 03/24/17 15:43 97.4 18 118/56 98 03/24/17 14:41 21 Intake and Output 03/23/17 03/23/17 03/24/17 15:00 23:00 07:00 Intake Total 1100 ml 1000 ml Balance 1100 ml 1000 ml Exam Constitutional: awake Respiratory: normal air movement Cardiovascular: irregular rhythm Gastrointestinal: non-tender, other (G-tube), soft Genitourinary - Female: other (Lees catheter) Musculoskeletal: muscle weakness Neurological: focal weakness Results Result Diagram: 03/24/17 0649 03/24/17 0649 Results 24 hrs Laboratory Tests Test 03/24/17 06:49 White Blood Count 10.0 Red Blood Count 3.66 L Hemoglobin 9.8 L Hematocrit 31.0 L Mean Corpuscular Volume 84.7 Mean Corpuscular Hemoglobin 26.8 L Mean Corpuscular Hemoglobin Concent 31.6 L Red Cell Distribution Width 16.3 H Platelet Count 292 Mean Platelet Volume 12.7 H Neutrophils % 74.6 Lymphocytes % 12.6 L Monocytes % 8.9 Eosinophils % 1.8 Basophils % 0.5 Nucleated Red Blood Cells % 0.0 Neutrophils # 7.5 Lymphocytes # 1.3 Monocytes # 0.9 Eosinophils # 0.2 Basophils # 0.1 Nucleated Red Blood Cells # 0.0 Sodium Level 138 Potassium Level 4.2 Chloride Level 104 Carbon Dioxide Level 27 Anion Gap 11 Blood Urea Nitrogen 22 H Creatinine 0.77 Glucose Level 107 Calcium Level 9.7 Medications Medications Current Medications Miscellaneous Information 1 ea NOTE XX ; Start 01/17/17 at 10:00 Glucose (Glutose) 15 gm Q15M PRN PO DECREASED GLUCOSE; Start 01/17/17 at 10:00 Glucose (Glutose) 22.5 gm Q15M PRN PO DECREASED GLUCOSE; Start 01/17/17 at 10: 00 Dextrose (D50w Syringe) 25 ml Q15M PRN IV DECREASED GLUCOSE; Start 01/17/17 at 10:00 Dextrose (D50w Syringe) 50 ml Q15M PRN IV DECREASED GLUCOSE; Start 01/17/17 at 10:00 Glucagon (Glucagen) 1 mg Q15M PRN IM DECREASED GLUCOSE; Start 01/17/17 at 10:00 Glucose (Glutose) 15 gm Q15M PRN BUCCAL DECREASED GLUCOSE; Start 01/17/17 at 10 :00 Collagenase (Santyl) 1 applic DAILY TOP Last administered on 03/23/17 09:00; Admin Dose 1 APPLIC; Start 01/17/17 at 21:00 IV Flush (NS 10 ml) 10 ml PRN PRN IV IV PROTOCOL Last administered on 21:45; Admin Dose 10 ML; Start 01/22/17 at 12:00 Miscellaneous Information (Pending Santyl Order For Wound Care) This patient dunaway... PRN PRN XX WOUND CARE; Start 01/24/17 at 07:30 Bisacodyl (Dulcolax Supp) 10 mg DAILY PRN [place] CONSTIPATION Last administered on 02/24/17 15:02; Admin Dose 10 MG; Start 01/25/17 at 16:30 Acetaminophen (Tylenol Liquid) 650 mg Q4H PRN NGT PAIN AND OR ELEVATED TEMP Last administered on 03/22/17 06:17; Admin Dose 650 MG; Start 01/26/17 at 09:00 Metoprolol Tartrate (Lopressor) 2.5 mg Q4H PRN IV HR > 110 Last administered on 02/23/17 03:58; Admin Dose 2.5 MG; Start 01/26/17 at 15:00 Nystatin (Nystatin Powder) 1 applic BID TOP Last administered on 03/24/17 08: 37; Admin Dose 1 APPLIC; Start 02/04/17 at 12:00 Eye Lubricant (Artificial Tears Oph) 2 drop Q6H PRN BOTH EYES DRY EYES Last administered on 03/16/17 20:33; Admin Dose 2 DROP; Start 02/13/17 at 15:30 Nystatin (Nystatin Susp) 5 ml QID GTB Last administered on 03/24/17 13:01; Admin Dose 5 ML; Start 02/18/17 at 08:00 Lansoprazole (Prevacid) 30 mg BID@06,18 GTB Last administered on 03/24/17 05: 43; Admin Dose 30 MG; Start 02/18/17 at 18:00 Apixaban (Eliquis) 5 mg BID GTB Last administered on 03/24/17 08:37; Admin Dose 5 MG; Start 02/22/17 at 22:00 Digoxin (Digoxin) 0.125 mg DAILY@13 PO Last administered on 03/24/17 13:01; Admin Dose 0.125 MG; Start 03/12/17 at 13:00 Atenolol (Tenormin) 12.5 mg BID PO Last administered on 03/24/17 08:37; Admin Dose 12.5 MG; Start 03/12/17 at 21:00 Midodrine 10 mg 10 mg Q8 PRN GTB BLOOD PRESSURE SUPPORT Last administered on 04:26; Admin Dose 10 MG; Start 03/18/17 at 19:30 Levofloxacin/ Dextrose 100 ml @ 50 mls/hr Q24H IVPB Last administered on 21:48; Admin Dose 50 MLS/HR; Start 03/22/17 at 22:00 Vancomycin HCl (Vancocin) 100 ml @ 100 mls/hr Q12H IVPB Last administered on 05:43; Admin Dose 100 MLS/HR; Start 03/23/17 at 17:00 LAWRENCE PICKERING Mar 24, 2017 17:05
[2017-03-24] MEDS: LEVOFLOXACIN 500MG/D5W (PMX) 100 ML IVPB SCH (22:00)
[2017-03-25] VITALS (11 sets, daily range): BP systolic 112–125; BP diastolic 58–81; PULSE 64–95; RESP 16–22
[2017-03-25] MEDS: LEVALBUTEROL (NEB) 0.63 MG/3 ML AMP HHN SCH ×4 (01:52→19:01)
[2017-03-25] MEDS: VANCOMYCIN 500MG/NS (PMX) 100 ML IVPB SCH ×2 (06:11→16:50)
[2017-03-25] MEDS: LANSOPRAZOLE 30 MG CAP GTB SCH ×2 (06:11→16:49)
[2017-03-25 07:17] LABS: BASOPHIL # 0.1 10^3/ul (0.0-0.1); BASOPHILS % 0.8 % (0.0-2.0); EOSINOPHILS # 0.2 10^3/ul (0.0-0.5); EOSINOPHILS % 1.9 % (0.0-7.0); HEMATOCRIT 31.3 % (37.0-47.0); LYMPHOCYTES # 1.2 10^3/ul (0.8-2.9); LYMPHOCYTES % 10.9 % (15.0-51.0); MEAN CORPUSCULAR HGB CONC 31.9 g/dl (32.0-37.0); MEAN CORPUSCULAR VOLUME 84.4 fl (82.0-101.0); MEAN PLATELET VOLUME 12.4 fl (7.4-10.4); MONOCYTE # 0.9 10^3/ul (0.3-0.9); MONOCYTES % 7.7 % (0.0-11.0); NEUTROPHIL # 8.6 10^3/ul (1.6-7.5); NEUTROPHILS % 76.4 % (39.0-77.0); PLATELET COUNT 328 10^3/UL (140-415); RED BLOOD COUNT 3.71 10^6/ul (4.20-5.40); RED CELL DISTRIBUTION WIDTH 16.3 % (11.5-14.5); WHITE BLOOD COUNT 11.3 10^3/ul (4.8-10.8)
[2017-03-25 07:47] LABS: CALCIUM 9.7 mg/dl (8.4-10.2); CREATININE 0.71 mg/dl (0.44-1.00); POTASSIUM 4.2 mmol/L (3.5-5.1)
[2017-03-25] MEDS: APIXABAN 5 MG TABLET GTB SCH ×2 (09:18→20:41)
[2017-03-25] MEDS: NYSTATIN SUSP 5 ML CUP GTB SCH ×4 (09:18→20:42)
[2017-03-25] MEDS: NYSTATIN 30 GM POWDER BTL TOP SCH ×2 (09:18→20:42)
[2017-03-25] MEDS: ATENOLOL 25 MG TAB PO SCH ×2 (09:18→20:41)
[2017-03-25] MEDS: COLLAGENASE 30 GM TUBE TOP SCH (09:18)
--- NOTE | 2017-03-25 12:14 | CONS ---
Date/Time of Note Date/Time of Note DATE: 03/25/17 TIME: 12:10 Assessment/Plan Assessment/Plan Chief Complaint/Hosp Course IMP: 1. AF-mainly rate controlled/Trop negative x 3. Had pause x 3.7 seconds 01/30 on standing IVP BB. Now back in tele 2.Hypotension-on midodrine 3.encephalopathy/ams-slowly improving 4.coagulopathy-now on eliquis 5. Acute Renal failure-Now resolved 6.Leukocytosis 7. Cardiomyopathy-EF 45% 8. Cephalic vein thrombosis 9. Dysphagia s/p PEG 10. H Pylori 11.Bacteremia-recurrent Recc: -Tele -serial ecg's -Cont. Eliquis -Continue low dose BB as tolerated only with atenolol -Continue abx's -Follow MS closely which has had some significant improvement -Continue midodrine for low BP as necessary -IVF bolus -Continue PPI -Continue PO digoxin with patient s/p additional dose of IV digoxin yesterday with improved HR control -Will repeat TTE to assess fo intracardiac signs of infection and if unrevealing consider DEBBIE but have concern for possible aspiration and/or general worsening of resp status dueinig a procedure such as this as patient not intubated with poor overall MS -No definite indication for PPM at this time Problems: Consultation Date/Type/Reason Admit Date/Time Jan 16, 2017 at 15:19 Initial Consult Date 01/17/17 Type of Consultation: cardiology Reason for Consultation AF Referring Provider: LAWRENCE PICKERING Exam/Review of Systems Vital Signs Vitals Vital Signs Date Time Temp Pulse Resp B/P Pulse Ox O2 Delivery O2 Flow Rate FiO2 03/25/17 12:04 73 03/25/17 11:12 98.4 16 124/81 97 03/25/17 07:43 21 Intake and Output 03/24/17 03/24/17 03/25/17 15:00 23:00 07:00 Intake Total 1100 ml 900 ml Balance 1100 ml 900 ml Exam Review of Systems: CONSTITUTIONAL: No fevers, chills. PULMONARY: No sob CARDIOVASCULAR: No chest pain/palpitations GASTROINTESTINAL: No nausea/vomiting. GENITOURINARY: No hematuria/dysuria. MUSCULOSKELETAL: No myagias/arthalgias. PSYCHIATRIC: The patient denies depression. NEUROLOGIC: encephalopathy Constitutional: alert Psych: confusion Head: normocephalic ENMT: mucosa pink and moist Neck: jvd (9 cm water), supple Respiratory: diminished breath sounds (at bases/B) Cardiovascular: regular rate and rhythm Gastrointestinal: non-tender, soft Musculoskeletal: muscle tone (normal) Extremities: edema (none) Neurological: confused, lethargic Results Result Diagram: 03/25/17 0638 03/25/17 0637 Results 24 hrs Laboratory Tests Test 03/24/17 16:32 03/25/17 06:37 03/25/17 06:38 Vancomycin Level Trough 13.7 Sodium Level 139 Potassium Level 4.2 Chloride Level 106 Carbon Dioxide Level 25 Anion Gap 12 Blood Urea Nitrogen 24 H Creatinine 0.71 Glucose Level 109 Calcium Level 9.7 White Blood Count 11.3 H Red Blood Count 3.71 L Hemoglobin 10.0 L Hematocrit 31.3 L Mean Corpuscular Volume 84.4 Mean Corpuscular Hemoglobin 27.0 L Mean Corpuscular Hemoglobin Concent 31.9 L Red Cell Distribution Width 16.3 H Platelet Count 328 Mean Platelet Volume 12.4 H Neutrophils % 76.4 Lymphocytes % 10.9 L Monocytes % 7.7 Eosinophils % 1.9 Basophils % 0.8 Nucleated Red Blood Cells % 0.0 Neutrophils # 8.6 H Lymphocytes # 1.2 Monocytes # 0.9 Eosinophils # 0.2 Basophils # 0.1 Nucleated Red Blood Cells # 0.0 Medications Medications Current Medications Miscellaneous Information 1 ea NOTE XX ; Start 01/17/17 at 10:00 Glucose (Glutose) 15 gm Q15M PRN PO DECREASED GLUCOSE; Start 01/17/17 at 10:00 Glucose (Glutose) 22.5 gm Q15M PRN PO DECREASED GLUCOSE; Start 01/17/17 at 10: 00 Dextrose (D50w Syringe) 25 ml Q15M PRN IV DECREASED GLUCOSE; Start 01/17/17 at 10:00 Dextrose (D50w Syringe) 50 ml Q15M PRN IV DECREASED GLUCOSE; Start 01/17/17 at 10:00 Glucagon (Glucagen) 1 mg Q15M PRN IM DECREASED GLUCOSE; Start 01/17/17 at 10:00 Glucose (Glutose) 15 gm Q15M PRN BUCCAL DECREASED GLUCOSE; Start 01/17/17 at 10 :00 Collagenase (Santyl) 1 applic DAILY TOP Last administered on 9/21/17at 09:18; Admin Dose 1 APPLIC; Start 01/17/17 at 21:00 IV Flush (NS 10 ml) 10 ml PRN PRN IV IV PROTOCOL Last administered on 21:45; Admin Dose 10 ML; Start 01/22/17 at 12:00 Miscellaneous Information (Pending Santyl Order For Wound Care) This patient dunaway... PRN PRN XX WOUND CARE; Start 01/24/17 at 07:30 Bisacodyl (Dulcolax Supp) 10 mg DAILY PRN [place] CONSTIPATION Last administered on 02/24/17 15:02; Admin Dose 10 MG; Start 01/25/17 at 16:30 Acetaminophen (Tylenol Liquid) 650 mg Q4H PRN NGT PAIN AND OR ELEVATED TEMP Last administered on 03/22/17 06:17; Admin Dose 650 MG; Start 01/26/17 at 09:00 Metoprolol Tartrate (Lopressor) 2.5 mg Q4H PRN IV HR > 110 Last administered on 02/23/17 03:58; Admin Dose 2.5 MG; Start 01/26/17 at 15:00 Nystatin (Nystatin Powder) 1 applic BID TOP Last administered on 03/25/17 09: 18; Admin Dose 1 APPLIC; Start 02/04/17 at 12:00 Eye Lubricant (Artificial Tears Oph) 2 drop Q6H PRN BOTH EYES DRY EYES Last administered on 03/16/17 20:33; Admin Dose 2 DROP; Start 02/13/17 at 15:30 Nystatin (Nystatin Susp) 5 ml QID GTB Last administered on 03/25/17 09:18; Admin Dose 5 ML; Start 02/18/17 at 08:00 Lansoprazole (Prevacid) 30 mg BID@,18 GTB Last administered on 03/25/17 06: 11; Admin Dose 30 MG; Start 02/18/17 at 18:00 Apixaban (Eliquis) 5 mg BID GTB Last administered on 03/25/17 09:18; Admin Dose 5 MG; Start 02/22/17 at 22:00 Digoxin (Digoxin) 0.125 mg DAILY@13 PO Last administered on 03/24/17 13:01; Admin Dose 0.125 MG; Start 03/12/17 at 13:00 Atenolol (Tenormin) 12.5 mg BID PO Last administered on 03/25/17 09:18; Admin Dose 12.5 MG; Start 03/12/17 at 21:00 Midodrine 10 mg 10 mg Q8 PRN GTB BLOOD PRESSURE SUPPORT Last administered on 04:26; Admin Dose 10 MG; Start 03/18/17 at 19:30 Levofloxacin/ Dextrose 100 ml @ 50 mls/hr Q24H IVPB Last administered on 22:00; Admin Dose 50 MLS/HR; Start 03/22/17 at 22:00 Vancomycin HCl (Vancocin) 100 ml @ 100 mls/hr Q12H IVPB Last administered on 06:11; Admin Dose 100 MLS/HR; Start 03/23/17 at 17:00 MINOO REY Mar 25, 2017 12:14
[2017-03-25] MEDS: DIGOXIN 0.125 MG TAB PO SCH (14:45)
[2017-03-25] MEDS: ACETAMINOPHEN 650MG/20.3ML CUP NGT PRN (15:55)
--- NOTE | 2017-03-25 16:39 | PN ---
Date/Time of Note Date/Time of Note DATE: 03/25/17 TIME: 16:33 Assessment/Plan VTE Prophylaxis VTE Prophylaxis Intervention: other Lines/Catheters IV C[facility]ter Type (from [facility]): Peripheral IV Urinary Cath still in place: No Assessment/Plan Assessment/Plan - Bacteremia and recurrent UTI versus colonization. Dr. Hiro villeda is following in ID consultation. - Bilateral thalamic infarctions. Dr. Ramirez is following in neurology consultation. - Gastritis due to H. pylori, status post EGD, completed therapy per H. pylori eradication. - Dysphagia, status post G-tube placement by Dr. Garcia. - Atrial fibrillation with rapid ventricular response. Dr. Armenta is following and cardiology consultation. Continue Eliquis. Digoxin and atenolol. - Thrombosis of the bilateral cephalic veins. - Acute kidney injury, resolved. - History of CVA - History of hyperlipidemia Further recommendations based on clinical course. Plan of care discussed with Dr. Valdovinos. Subjective 24 Hr Interval Summary Free Text/Dictation c/o pain-at IV site-better with tylenol, able to tolerate puree diet for oral gratification, dw staff Constitutional: requiring O2 ENT: no complaints Respiratory: no complaints Cardiovascular: no complaints Gastrointestinal: no complaints Genitourinary: no complaints Musculoskeletal: other Skin: no complaints Exam/Review of Systems Vital Signs Vitals Vital Signs Date Time Temp Pulse Resp B/P Pulse Ox O2 Delivery O2 Flow Rate FiO2 03/25/17 16:21 95 03/25/17 15:26 98.2 16 125/59 96 03/25/17 14:15 21 Intake and Output 03/24/17 03/24/17 03/25/17 15:00 23:00 07:00 Intake Total 1100 ml 900 ml Balance 1100 ml 900 ml Exam Constitutional: alert, well developed Respiratory: clear to auscultation, diminished breath sounds Gastrointestinal: non-tender, soft Extremities: normal pulses Neurological: nl speech Results Result Diagram: 03/25/17 0638 03/25/17 0637 Results 24 hrs Laboratory Tests Test 03/25/17 06:37 03/25/17 06:38 Sodium Level 139 Potassium Level 4.2 Chloride Level 106 Carbon Dioxide Level 25 Anion Gap 12 Blood Urea Nitrogen 24 H Creatinine 0.71 Glucose Level 109 Calcium Level 9.7 White Blood Count 11.3 H Red Blood Count 3.71 L Hemoglobin 10.0 L Hematocrit 31.3 L Mean Corpuscular Volume 84.4 Mean Corpuscular Hemoglobin 27.0 L Mean Corpuscular Hemoglobin Concent 31.9 L Red Cell Distribution Width 16.3 H Platelet Count 328 Mean Platelet Volume 12.4 H Neutrophils % 76.4 Lymphocytes % 10.9 L Monocytes % 7.7 Eosinophils % 1.9 Basophils % 0.8 Nucleated Red Blood Cells % 0.0 Neutrophils # 8.6 H Lymphocytes # 1.2 Monocytes # 0.9 Eosinophils # 0.2 Basophils # 0.1 Nucleated Red Blood Cells # 0.0 Medications Medications Current Medications Miscellaneous Information 1 ea NOTE XX ; Start 01/17/17 at 10:00 Glucose (Glutose) 15 gm Q15M PRN PO DECREASED GLUCOSE; Start 01/17/17 at 10:00 Glucose (Glutose) 22.5 gm Q15M PRN PO DECREASED GLUCOSE; Start 01/17/17 at 10: 00 Dextrose (D50w Syringe) 25 ml Q15M PRN IV DECREASED GLUCOSE; Start 01/17/17 at 10:00 Dextrose (D50w Syringe) 50 ml Q15M PRN IV DECREASED GLUCOSE; Start 01/17/17 at 10:00 Glucagon (Glucagen) 1 mg Q15M PRN IM DECREASED GLUCOSE; Start 01/17/17 at 10:00 Glucose (Glutose) 15 gm Q15M PRN BUCCAL DECREASED GLUCOSE; Start 01/17/17 at 10 :00 Collagenase (Santyl) 1 applic DAILY TOP Last administered on 03/25/17 09:18; Admin Dose 1 APPLIC; Start 01/17/17 at 21:00 IV Flush (NS 10 ml) 10 ml PRN PRN IV IV PROTOCOL Last administered on 21:45; Admin Dose 10 ML; Start 01/22/17 at 12:00 Miscellaneous Information (Pending Santyl Order For Wound Care) This patient dunaway... PRN PRN XX WOUND CARE; Start 01/24/17 at 07:30 Bisacodyl (Dulcolax Supp) 10 mg DAILY PRN [place] CONSTIPATION Last administered on 02/24/17 15:02; Admin Dose 10 MG; Start 01/25/17 at 16:30 Acetaminophen (Tylenol Liquid) 650 mg Q4H PRN NGT PAIN AND OR ELEVATED TEMP Last administered on 03/25/17 15:55; Admin Dose 650 MG; Start 01/26/17 at 09:00 Metoprolol Tartrate (Lopressor) 2.5 mg Q4H PRN IV HR > 110 Last administered on 02/23/17 03:58; Admin Dose 2.5 MG; Start 01/26/17 at 15:00 Nystatin (Nystatin Powder) 1 applic BID TOP Last administered on 03/25/17 09: 18; Admin Dose 1 APPLIC; Start 02/04/17 at 12:00 Eye Lubricant (Artificial Tears Oph) 2 drop Q6H PRN BOTH EYES DRY EYES Last administered on 03/16/17 20:33; Admin Dose 2 DROP; Start 02/13/17 at 15:30 Nystatin (Nystatin Susp) 5 ml QID GTB Last administered on 03/25/17 14:44; Admin Dose 5 ML; Start 02/18/17 at 08:00 Lansoprazole (Prevacid) 30 mg BID@06,18 GTB Last administered on 03/25/17 06: 11; Admin Dose 30 MG; Start 02/18/17 at 18:00 Apixaban (Eliquis) 5 mg BID GTB Last administered on 03/25/17 09:18; Admin Dose 5 MG; Start 02/22/17 at 22:00 Digoxin (Digoxin) 0.125 mg DAILY@13 PO Last administered on 03/25/17 14:45; Admin Dose 0.125 MG; Start 03/12/17 at 13:00 Atenolol (Tenormin) 12.5 mg BID PO Last administered on 03/25/17 09:18; Admin Dose 12.5 MG; Start 03/12/17 at 21:00 Midodrine 10 mg 10 mg Q8 PRN GTB BLOOD PRESSURE SUPPORT Last administered on 04:26; Admin Dose 10 MG; Start 03/18/17 at 19:30 Levofloxacin/ Dextrose 100 ml @ 50 mls/hr Q24H IVPB Last administered on 22:00; Admin Dose 50 MLS/HR; Start 03/22/17 at 22:00 Vancomycin HCl (Vancocin) 100 ml @ 100 mls/hr Q12H IVPB Last administered on 06:11; Admin Dose 100 MLS/HR; Start 03/23/17 at 17:00 ALEXIS NAJERA Mar 25, 2017 16:39
--- NOTE | 2017-03-25 21:22 | RADRPT ---
Echocardiogram Report Patient Name: JAY RUIZ Gender: Female Date: 1955 Study Date: 25-Mar-2017 Tour Counselor: Location: I Ref. Physician: MINOO REY Quality: Adequate Procedures: Transthoracic echocardiogram with complete 2D, M-Mode, and doppler examination. Indications: bacteremia assess for vegetations. 2D/M Mode Doppler Measurement Value Normal Ranges Measurement Value Normal Ranges LVIDd 2D 4.1 3.5 - 5.6 cm CARMEN Vmax 1.0 cm2 LVIDs 2D 3.0 2.1 - 4.1 cm CARMEN VTI 1.0 cm2 LVPWd 2D 1.3 0.6 - 1.1 cm AV Mean Anurag 1.1 m/sec IVSd 2D 1.3 0.6 - 1.1 cm AV Mean PG 5.1 mmHg AoR Diam 2D 2.8 2.0 - 3.7 cm AV Peak Anurag 1.6 m/sec EDV 2D 72.2 cm3 AV Peak PG 8.4 mmHg ESV 2D 27.1 cm3 AV VTI 28.7 cm LA Dimen 2D 4.9 2.3 - 4.0 cm LVOT Mean Anurag 0.5 m/sec LVOT Diam 1.5 cm LVOT Mean PG 1.3 mmHg LVOT Peak Anurag 0.9 m/sec LVOT Peak PG 3.2 mmHg LVOT VTI 14.1 cm MV PHT 385.0 msec MV Peak Anurag 2.2 m/sec MV Peak PG 19.7 mmHg MV Mean Anurag 1.2 m/sec MV Mean PG 7.5 mmHg MV PHT 385.0 msec MV VTI 75.1 cm MVA PHT 0.6 cm2 MVA VTI 0.3 cm TR Peak Anurag 2.7 m/sec TR Peak PG 28.3 mmHg RVSP 31.0 mmHg Findings Left Ventricle: Lower limits of normal systolic function. Normal left ventricular cavity size. Moderate concentric left ventricular hypertrophy. Ejection fraction is visually estimated at 50 %. Abnormal Diastolic Function. Right Ventricle: Normal right ventricular size. Normal right ventricular systolic function. Left Atrium: There is severe enlargement of left atrium. Right Atrium: The right atrium is normal in size. Mitral Valve: Mitral valve leaflets appear moderately thickened. Moderate mitral annular calcification. Moderate to severe mitral stenosis. Mitral valve Max Velocity 2.22 m/sec. MaxPG 19.70 mmHg. MeanPG 7.50 mmHg. Mitral Valve Area by PHT0.60 cm2. 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 Aortic Valve: No hemodynamically significant aortic stenosis by doppler. Aortic sclerosis without stenosis. Aortic cusps appear mildly calcified. Trace aortic valve regurgitation. Tricuspid Valve: Normal appearance of the tricuspid valve. Estimated peak PA systolic pressure 31 mmHg. There is mild tricuspid regurgitation. Pulmonic Valve: Pulmonic valve not well visualized. Pericardium: Normal pericardium with no significant pericardial effusion. Aorta: Normal aortic root. IVC: Normal size and normal respiratory collapse consistent with normal right atrial pressure. Conclusions 1.Lower limits of normal systolic function. Normal left ventricular cavity size. Moderate concentric left ventricular hypertrophy. Ejection fraction is visually estimated at 50 %. Abnormal Diastolic Function. 2.There is severe enlargement of left atrium. 3.Mitral valve leaflets appear moderately thickened. Moderate mitral annular calcification. Moderate to severe mitral stenosis. MeanPG 7.50 mmHg. Mitral Valve Area by PHT0.60 cm2. 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 4.No hemodynamically significant aortic stenosis by doppler. Aortic sclerosis without stenosis. Aortic cusps appear mildly calcified. Trace aortic valve regurgitation. 5.Normal appearance of the tricuspid valve. Estimated peak PA systolic pressure 31 mmHg. There is mild tricuspid regurgitation. 6.Due to focal thickening of mitral valve leaflets cannot completely rule out associated vegetations although appearance not completely typical of a vegetation. Electronically Signed By: Minoo Rey 25-Mar-2017 21:21:36 -0700 Patient Name: JAY RUIZ Study Date: [id number]
[2017-03-25] MEDS: LEVOFLOXACIN 500MG/D5W (PMX) 100 ML IVPB SCH (22:25)
[2017-03-26] VITALS (12 sets, daily range): BP systolic 93–123; BP diastolic 53–67; PULSE 68–92; RESP 16–18
[2017-03-26] MEDS: LEVALBUTEROL (NEB) 0.63 MG/3 ML AMP HHN SCH ×4 (01:03→20:48)
[2017-03-26] MEDS: VANCOMYCIN 500MG/NS (PMX) 100 ML IVPB SCH ×2 (04:29→17:31)
[2017-03-26] MEDS: LANSOPRAZOLE 30 MG CAP GTB SCH ×2 (05:24→17:40)
[2017-03-26 06:12] LABS: BASOPHIL # 0.1 10^3/ul (0.0-0.1); BASOPHILS % 0.7 % (0.0-2.0); EOSINOPHILS # 0.2 10^3/ul (0.0-0.5); EOSINOPHILS % 1.6 % (0.0-7.0); HEMATOCRIT 31.2 % (37.0-47.0); HEMOGLOBIN 10.1 g/dl (12.0-16.0); LYMPHOCYTES # 1.5 10^3/ul (0.8-2.9); LYMPHOCYTES % 11.6 % (15.0-51.0); MEAN CORPUSCULAR HEMOGLOBIN 27.4 pg (29.0-33.0); MEAN CORPUSCULAR HGB CONC 32.4 g/dl (32.0-37.0); MEAN CORPUSCULAR VOLUME 84.8 fl (82.0-101.0); MONOCYTE # 0.9 10^3/ul (0.3-0.9); NEUTROPHIL # 9.7 10^3/ul (1.6-7.5); PLATELET COUNT 356 10^3/UL (140-415); RED BLOOD COUNT 3.68 10^6/ul (4.20-5.40); WHITE BLOOD COUNT 12.8 10^3/ul (4.8-10.8)
[2017-03-26 06:51] LABS: CALCIUM 9.8 mg/dl (8.4-10.2); CREATININE 0.77 mg/dl (0.44-1.00); POTASSIUM 4.6 mmol/L (3.5-5.1)
[2017-03-26] MEDS: NYSTATIN SUSP 5 ML CUP GTB SCH ×4 (09:12→21:36)
[2017-03-26] MEDS: APIXABAN 5 MG TABLET GTB SCH ×2 (09:13→21:36)
[2017-03-26] MEDS: ATENOLOL 25 MG TAB PO SCH ×2 (09:14→21:37)
[2017-03-26] MEDS: COLLAGENASE 30 GM TUBE TOP SCH (09:15)
[2017-03-26] MEDS: NYSTATIN 30 GM POWDER BTL TOP SCH ×2 (09:15→21:38)
[2017-03-26] MEDS: ACETAMINOPHEN 650MG/20.3ML CUP NGT PRN (10:06)
--- NOTE | 2017-03-26 12:45 | CONS ---
Date/Time of Note Date/Time of Note DATE: 03/26/17 TIME: 12:42 Assessment/Plan Assessment/Plan Chief Complaint/Hosp Course Assessment/impression: - sepsis due to bacteremia and UTI - enterococcus bacteremia likely due to line sepsis - UTI due to E. coli - s/p UTI due to proteus - dysphagia s/p PEG - diffuse moderate degree of gastritis s/p EGD 02/15/2017 - gastritis due to H. pylori based on pathology 02/15/2017, on clarithromycin based regimen (02/20/2017-), [id number] - bleeding from GT site, and blood clots in tube feed - resolved - recurrent CVA - possible aspiration, improved - encephalopathy due to CVA. CSF from 01/19/2017: WBC=3, RBC=0, glu 53, pro=61, CSF ([place] serology negative, HSV negative, cocci CF negative, encephalitis meningitis panel could not be done due to a lack of sample), serum ([place] PCR negative, crypto antigen negative, cocci CF negative, histo CF negative). my order of crypto in CSF was cancelled and no reason given - bacteremia due to CoNS, probable contaminant. 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 Please hold off on central line placement until blood cultures negative for at least 48 hours. - We recommend DEBBIE to r/o endocarditis and guide duration of antibiotic course Management d/w patient, NARESH Hart, and Dr. Bosch Problems: Consultation Date/Type/Reason Admit Date/Time Jan 16, 2017 at 15:19 Initial Consult Date 01/17/17 Type of Consultation: Infectious Disease Referring Provider: RADCHENKO,LAWRENCE 24 HR Interval Summary Free Text/Dictation Afebrile, repeat blood cultures growing enterococcus, TTE shows no obvious vegetation, and WBC trending up. Working with therapy and frequently cries when family leaves pt per d/w nursing staff. Denies pain, SOB, n/v/d, dysuria. Exam/Review of Systems Vital Signs Vitals Vital Signs Date Time Temp Pulse Resp B/P Pulse Ox O2 Delivery O2 Flow Rate FiO2 03/26/17 12:04 84 03/26/17 11:43 97.8 16 96/53 98 03/26/17 09:03 21 Intake and Output 03/25/17 03/25/17 03/26/17 15:00 23:00 07:00 Intake Total 1050 ml 1000 ml Balance 1050 ml 1000 ml Exam Constitutional: alert, oriented, well-developed Head: atraumatic, normocephalic Respiratory: clear to auscultation No wheezing Cardiovascular: irregular rate and rhythm Gastrointestinal: other (G-tube intact), soft, No tender Genitourinary - Female: bladder flat Musculoskeletal: nl extremities to inspection, normal pulses Extremities: No edema, Other (L heel eschar/dressing is c/d/i) Neurological: Other (speech clear but soft and slow to resond, primarily Niuean speaking; ESTEVEZ) Skin: nl turgor Results Result Diagram: 03/26/17 0555 03/26/17 0555 Results 24 hrs Laboratory Tests Test 03/26/17 05:55 White Blood Count 12.8 H Red Blood Count 3.68 L Hemoglobin 10.1 L Hematocrit 31.2 L Mean Corpuscular Volume 84.8 Mean Corpuscular Hemoglobin 27.4 L Mean Corpuscular Hemoglobin Concent 32.4 Red Cell Distribution Width 16.0 H Platelet Count 356 Mean Platelet Volume 12.0 H Neutrophils % 76.0 Lymphocytes % 11.6 L Monocytes % 7.0 Eosinophils % 1.6 Basophils % 0.7 Nucleated Red Blood Cells % 0.0 Neutrophils # 9.7 H Lymphocytes # 1.5 Monocytes # 0.9 Eosinophils # 0.2 Basophils # 0.1 Nucleated Red Blood Cells # 0.0 Sodium Level 139 Potassium Level 4.6 Chloride Level 106 Carbon Dioxide Level 25 Anion Gap 13 Blood Urea Nitrogen 24 H Creatinine 0.77 Glucose Level 113 Calcium Level 9.8 Medications Medications Current Medications Miscellaneous Information 1 ea NOTE XX ; Start 01/17/17 at 10:00 Glucose (Glutose) 15 gm Q15M PRN PO DECREASED GLUCOSE; Start 01/17/17 at 10:00 Glucose (Glutose) 22.5 gm Q15M PRN PO DECREASED GLUCOSE; Start 01/17/17 at 10: 00 Dextrose (D50w Syringe) 25 ml Q15M PRN IV DECREASED GLUCOSE; Start 01/17/17 at 10:00 Dextrose (D50w Syringe) 50 ml Q15M PRN IV DECREASED GLUCOSE; Start 01/17/17 at 10:00 Glucagon (Glucagen) 1 mg Q15M PRN IM DECREASED GLUCOSE; Start 01/17/17 at 10:00 Glucose (Glutose) 15 gm Q15M PRN BUCCAL DECREASED GLUCOSE; Start 01/17/17 at 10 :00 Collagenase (Santyl) 1 applic DAILY TOP Last administered on 03/26/17 09:15; Admin Dose 1 APPLIC; Start 01/17/17 at 21:00 IV Flush (NS 10 ml) 10 ml PRN PRN IV IV PROTOCOL Last administered on 21:45; Admin Dose 10 ML; Start 01/22/17 at 12:00 Miscellaneous Information (Pending Santyl Order For Wound Care) This patient dunaway... PRN PRN XX WOUND CARE; Start 01/24/17 at 07:30 Bisacodyl (Dulcolax Supp) 10 mg DAILY PRN [place] CONSTIPATION Last administered on 02/24/17 15:02; Admin Dose 10 MG; Start 01/25/17 at 16:30 Acetaminophen (Tylenol Liquid) 650 mg Q4H PRN NGT PAIN AND OR ELEVATED TEMP Last administered on 03/26/17 10:06; Admin Dose 650 MG; Start 01/26/17 at 09:00 Metoprolol Tartrate (Lopressor) 2.5 mg Q4H PRN IV HR > 110 Last administered on 02/23/17 03:58; Admin Dose 2.5 MG; Start 01/26/17 at 15:00 Nystatin (Nystatin Powder) 1 applic BID TOP Last administered on 03/26/17 09: 15; Admin Dose 1 APPLIC; Start 02/04/17 at 12:00 Eye Lubricant (Artificial Tears Oph) 2 drop Q6H PRN BOTH EYES DRY EYES Last administered on 03/16/17 20:33; Admin Dose 2 DROP; Start 02/13/17 at 15:30 Nystatin (Nystatin Susp) 5 ml QID GTB Last administered on 03/26/17 09:12; Admin Dose 5 ML; Start 02/18/17 at 08:00 Lansoprazole (Prevacid) 30 mg BID@06,18 GTB Last administered on 03/26/17 05: 24; Admin Dose 30 MG; Start 02/18/17 at 18:00 Apixaban (Eliquis) 5 mg BID GTB Last administered on 03/26/17 09:13; Admin Dose 5 MG; Start 02/22/17 at 22:00 Digoxin (Digoxin) 0.125 mg DAILY@13 PO Last administered on 03/25/17 14:45; Admin Dose 0.125 MG; Start 03/12/17 at 13:00 Atenolol (Tenormin) 12.5 mg BID PO Last administered on 03/26/17 09:14; Admin Dose 12.5 MG; Start 03/12/17 at 21:00 Midodrine 10 mg 10 mg Q8 PRN GTB BLOOD PRESSURE SUPPORT Last administered on 04:26; Admin Dose 10 MG; Start 03/18/17 at 19:30 Levofloxacin/ Dextrose 100 ml @ 50 mls/hr Q24H IVPB Last administered on 22:25; Admin Dose 50 MLS/HR; Start 03/22/17 at 22:00 Vancomycin HCl (Vancocin) 100 ml @ 100 mls/hr Q12H IVPB Last administered on 04:29; Admin Dose 100 MLS/HR; Start 03/23/17 at 17:00 GIRISH SCHMITZ NP Mar 26, 2017 12:45
[2017-03-26] MEDS: DIGOXIN 0.125 MG TAB PO SCH (12:57)
--- NOTE | 2017-03-26 14:09 | PN ---
Date/Time of Note Date/Time of Note DATE: 03/26/17 TIME: 14:03 Assessment/Plan VTE Prophylaxis VTE Prophylaxis Intervention: SCD's Lines/Catheters IV [facility]ter Type ([facility]): Peripheral IV Urinary Cath still in place: No Assessment/Plan Chief Complaint/Hosp Course Patient remains afebrile, borderline blood pressure, no change in neuro status. Assessment/Plan - Enterococcus bacteremia, PICC line DC'd. No apparent vegetation per TTE. Continue antibiotics per ID. - Bacteremia and recurrent UTI versus colonization. Dr. Hiro villeda is following in ID consultation. - Bilateral thalamic infarctions. Dr. Ramirez is following in neurology consultation. - Gastritis due to H. pylori, status post EGD, completed therapy per H. pylori eradication. - Dysphagia, status post G-tube placement by Dr. Garcia. - Atrial fibrillation with rapid ventricular response. Dr. Armenta is following and cardiology consultation. Continue Eliquis. Digoxin and atenolol. - Thrombosis of the bilateral cephalic veins. - Acute kidney injury, resolved. - History of CVA - History of hyperlipidemia Further recommendations based on clinical course. Plan of care discussed with Dr. Valdovinos. Problems: Exam/Review of Systems Vital Signs Vitals Vital Signs Date Time Temp Pulse Resp B/P Pulse Ox O2 Delivery O2 Flow Rate FiO2 03/26/17 12:04 84 03/26/17 11:43 97.8 16 96/53 98 03/26/17 09:03 21 Intake and Output 03/25/17 03/25/17 03/26/17 15:00 23:00 07:00 Intake Total 1050 ml 1000 ml Balance 1050 ml 1000 ml Exam Constitutional: awake Respiratory: normal air movement Cardiovascular: irregular rhythm Gastrointestinal: non-tender, other (G-tube), soft Genitourinary - Female: other (Lees catheter) Musculoskeletal: muscle weakness Neurological: focal weakness Results Result Diagram: 03/26/17 0555 03/26/17 0555 Results 24 hrs Laboratory Tests Test 03/26/17 05:55 White Blood Count 12.8 H Red Blood Count 3.68 L Hemoglobin 10.1 L Hematocrit 31.2 L Mean Corpuscular Volume 84.8 Mean Corpuscular Hemoglobin 27.4 L Mean Corpuscular Hemoglobin Concent 32.4 Red Cell Distribution Width 16.0 H Platelet Count 356 Mean Platelet Volume 12.0 H Neutrophils % 76.0 Lymphocytes % 11.6 L Monocytes % 7.0 Eosinophils % 1.6 Basophils % 0.7 Nucleated Red Blood Cells % 0.0 Neutrophils # 9.7 H Lymphocytes # 1.5 Monocytes # 0.9 Eosinophils # 0.2 Basophils # 0.1 Nucleated Red Blood Cells # 0.0 Sodium Level 139 Potassium Level 4.6 Chloride Level 106 Carbon Dioxide Level 25 Anion Gap 13 Blood Urea Nitrogen 24 H Creatinine 0.77 Glucose Level 113 Calcium Level 9.8 Medications Medications Current Medications Miscellaneous Information 1 ea NOTE XX ; Start 01/17/17 at 10:00 Glucose (Glutose) 15 gm Q15M PRN PO DECREASED GLUCOSE; Start 01/17/17 at 10:00 Glucose (Glutose) 22.5 gm Q15M PRN PO DECREASED GLUCOSE; Start 01/17/17 at 10: 00 Dextrose (D50w Syringe) 25 ml Q15M PRN IV DECREASED GLUCOSE; Start 01/17/17 at 10:00 Dextrose (D50w Syringe) 50 ml Q15M PRN IV DECREASED GLUCOSE; Start 01/17/17 at 10:00 Glucagon (Glucagen) 1 mg Q15M PRN IM DECREASED GLUCOSE; Start 01/17/17 at 10:00 Glucose (Glutose) 15 gm Q15M PRN BUCCAL DECREASED GLUCOSE; Start 01/17/17 at 10 :00 Collagenase (Santyl) 1 applic DAILY TOP Last administered on 03/26/17 09:15; Admin Dose 1 APPLIC; Start 01/17/17 at 21:00 IV Flush (NS 10 ml) 10 ml PRN PRN IV IV PROTOCOL Last administered on 21:45; Admin Dose 10 ML; Start 01/22/17 at 12:00 Miscellaneous Information (Pending Santyl Order For Wound Care) This patient dunaway... PRN PRN XX WOUND CARE; Start 01/24/17 at 07:30 Bisacodyl (Dulcolax Supp) 10 mg DAILY PRN [place] CONSTIPATION Last administered on 02/24/17 15:02; Admin Dose 10 MG; Start 01/25/17 at 16:30 Acetaminophen (Tylenol Liquid) 650 mg Q4H PRN NGT PAIN AND OR ELEVATED TEMP Last administered on 03/26/17 10:06; Admin Dose 650 MG; Start 01/26/17 at 09:00 Metoprolol Tartrate (Lopressor) 2.5 mg Q4H PRN IV HR > 110 Last administered on 02/23/17 03:58; Admin Dose 2.5 MG; Start 01/26/17 at 15:00 Nystatin (Nystatin Powder) 1 applic BID TOP Last administered on 03/26/17 09: 15; Admin Dose 1 APPLIC; Start 02/04/17 at 12:00 Eye Lubricant (Artificial Tears Oph) 2 drop Q6H PRN BOTH EYES DRY EYES Last administered on 03/16/17 20:33; Admin Dose 2 DROP; Start 02/13/17 at 15:30 Nystatin (Nystatin Susp) 5 ml QID GTB Last administered on 03/26/17 12:56; Admin Dose 5 ML; Start 02/18/17 at 08:00 Lansoprazole (Prevacid) 30 mg BID@06,18 GTB Last administered on 03/26/17 05: 24; Admin Dose 30 MG; Start 02/18/17 at 18:00 Apixaban (Eliquis) 5 mg BID GTB Last administered on 03/26/17 09:13; Admin Dose 5 MG; Start 02/22/17 at 22:00 Digoxin (Digoxin) 0.125 mg DAILY@13 PO Last administered on 03/26/17 12:57; Admin Dose 0.125 MG; Start 03/12/17 at 13:00 Atenolol (Tenormin) 12.5 mg BID PO Last administered on 03/26/17 09:14; Admin Dose 12.5 MG; Start 03/12/17 at 21:00 Midodrine 10 mg 10 mg Q8 PRN GTB BLOOD PRESSURE SUPPORT Last administered on 04:26; Admin Dose 10 MG; Start 03/18/17 at 19:30 Levofloxacin/ Dextrose 100 ml @ 50 mls/hr Q24H IVPB Last administered on 22:25; Admin Dose 50 MLS/HR; Start 03/22/17 at 22:00 Vancomycin HCl (Vancocin) 100 ml @ 100 mls/hr Q12H IVPB Last administered on 04:29; Admin Dose 100 MLS/HR; Start 03/23/17 at 17:00 LAWRENCE PICKERING Mar 26, 2017 14:09
--- NOTE | 2017-03-26 14:23 | CONS ---
Date/Time of Note Date/Time of Note DATE: 03/26/17 TIME: 14:17 Assessment/Plan Assessment/Plan Chief Complaint/Hosp Course IMP: 1. AF-mainly rate controlled/Trop negative x 3. Had pause x 3.7 seconds 01/30 on standing IVP BB. Now back in tele 2.Hypotension-on midodrine 3.encephalopathy/ams-slowly improving 4.coagulopathy-now on eliquis 5. Acute Renal failure-Now resolved 6.Leukocytosis 7. Cardiomyopathy-EF 45% 8. Cephalic vein thrombosis 9. Dysphagia s/p PEG 10. H Pylori 11.Bacteremia-recurrent. s/p repeat TTE with no defiinite vegetations but thickening of mitral valve appararatus(secondary to MS) and thus cannot completely rule out vegetations Recc: -Tele -serial ecg's -Cont. Eliquis -Continue low dose BB as tolerated only with atenolol -Continue abx's -Follow MS closely which has had some significant improvement -Continue midodrine for low BP as necessary -IVF bolus -Continue PPI -Continue PO digoxin -S/P repeat TTE with no definite vegetaions but cannot completely rule out and thus will discuss DEBBIE with ID as treccomended but have concern for possible aspiration and/or general worsening of resp status durinig procedure as patient with poor overall MS/dysphagia -No definite indication for PPM at this time Problems: Consultation Date/Type/Reason Admit Date/Time Jan 16, 2017 at 15:19 Initial Consult Date 01/17/17 Type of Consultation: cardiology Reason for Consultation AF Referring Provider: LAWRENCE PICKERING Exam/Review of Systems Vital Signs Vitals Vital Signs Date Time Temp Pulse Resp B/P Pulse Ox O2 Delivery O2 Flow Rate FiO2 03/26/17 12:04 84 03/26/17 11:43 97.8 16 96/53 98 03/26/17 09:03 21 Intake and Output 03/25/17 03/25/17 03/26/17 15:00 23:00 07:00 Intake Total 1050 ml 1000 ml Balance 1050 ml 1000 ml Exam Review of Systems: CONSTITUTIONAL: No fevers, chills. PULMONARY: No sob CARDIOVASCULAR: No chest pain/palpitations GASTROINTESTINAL: No nausea/vomiting. GENITOURINARY: No hematuria/dysuria. MUSCULOSKELETAL: No myagias/arthalgias. PSYCHIATRIC: The patient denies depression. NEUROLOGIC: lethargic Constitutional: alert Psych: no complaints Head: normocephalic ENMT: mucosa pink and moist Neck: jvd (9 cm water), supple Respiratory: diminished breath sounds (at bases/B) Cardiovascular: irregular rhythm Gastrointestinal: non-tender, soft Extremities: edema (trace) Neurological: confused (but improving MS) Results Result Diagram: 03/26/17 0555 03/26/17 0555 Results 24 hrs Laboratory Tests Test 03/26/17 05:55 White Blood Count 12.8 H Red Blood Count 3.68 L Hemoglobin 10.1 L Hematocrit 31.2 L Mean Corpuscular Volume 84.8 Mean Corpuscular Hemoglobin 27.4 L Mean Corpuscular Hemoglobin Concent 32.4 Red Cell Distribution Width 16.0 H Platelet Count 356 Mean Platelet Volume 12.0 H Neutrophils % 76.0 Lymphocytes % 11.6 L Monocytes % 7.0 Eosinophils % 1.6 Basophils % 0.7 Nucleated Red Blood Cells % 0.0 Neutrophils # 9.7 H Lymphocytes # 1.5 Monocytes # 0.9 Eosinophils # 0.2 Basophils # 0.1 Nucleated Red Blood Cells # 0.0 Sodium Level 139 Potassium Level 4.6 Chloride Level 106 Carbon Dioxide Level 25 Anion Gap 13 Blood Urea Nitrogen 24 H Creatinine 0.77 Glucose Level 113 Calcium Level 9.8 Medications Medications Current Medications Miscellaneous Information 1 ea NOTE XX ; Start 01/17/17 at 10:00 Glucose (Glutose) 15 gm Q15M PRN PO DECREASED GLUCOSE; Start 01/17/17 at 10:00 Glucose (Glutose) 22.5 gm Q15M PRN PO DECREASED GLUCOSE; Start 01/17/17 at 10: 00 Dextrose (D50w Syringe) 25 ml Q15M PRN IV DECREASED GLUCOSE; Start 01/17/17 at 10:00 Dextrose (D50w Syringe) 50 ml Q15M PRN IV DECREASED GLUCOSE; Start 01/17/17 at 10:00 Glucagon (Glucagen) 1 mg Q15M PRN IM DECREASED GLUCOSE; Start 01/17/17 at 10:00 Glucose (Glutose) 15 gm Q15M PRN BUCCAL DECREASED GLUCOSE; Start 01/17/17 at 10 :00 Collagenase (Santyl) 1 applic DAILY TOP Last administered on 03/26/17t 09:15; Admin Dose 1 APPLIC; Start 01/17/17 at 21:00 IV Flush (NS 10 ml) 10 ml PRN PRN IV IV PROTOCOL Last administered on 21:45; Admin Dose 10 ML; Start 01/22/17 at 12:00 Miscellaneous [facility] This patient dunaway... PRN PRN XX WOUND CARE; Start 01/24/17 at 07:30 Bisacodyl (Dulcolax Supp) 10 mg DAILY PRN [place] CONSTIPATION Last administered on 02/24/17 15:02; Admin Dose 10 MG; Start 01/25/17 at 16:30 Acetaminophen (Tylenol Liquid) 650 mg Q4H PRN NGT PAIN AND OR ELEVATED TEMP Last administered on 03/26/17 10:06; Admin Dose 650 MG; Start 01/26/17 at 09:00 Metoprolol Tartrate (Lopressor) 2.5 mg Q4H PRN IV HR > 110 Last administered on 02/23/17 03:58; Admin Dose 2.5 MG; Start 01/26/17 at 15:00 Nystatin (Nystatin Powder) 1 applic BID TOP Last administered on 03/26/17 09: 15; Admin Dose 1 APPLIC; Start 02/04/17 at 12:00 Eye Lubricant (Artificial Tears Oph) 2 drop Q6H PRN BOTH EYES DRY EYES Last administered on 03/16/17 20:33; Admin Dose 2 DROP; Start 02/13/17 at 15:30 Nystatin (Nystatin Susp) 5 ml QID GTB Last administered on 03/26/17 12:56; Admin Dose 5 ML; Start 02/18/17 at 08:00 Lansoprazole (Prevacid) 30 mg BID@06,18 GTB Last administered on 03/26/17 05: 24; Admin Dose 30 MG; Start 02/18/17 at 18:00 Apixaban (Eliquis) 5 mg BID GTB Last administered on 03/26/17 09:13; Admin Dose 5 MG; Start 02/22/17 at 22:00 Digoxin (Digoxin) 0.125 mg DAILY@13 PO Last administered on 03/26/17 12:57; Admin Dose 0.125 MG; Start 03/12/17 at 13:00 Atenolol (Tenormin) 12.5 mg BID PO Last administered on 03/26/17 09:14; Admin Dose 12.5 MG; Start 03/12/17 at 21:00 Midodrine 10 mg 10 mg Q8 PRN GTB BLOOD PRESSURE SUPPORT Last administered on 04:26; Admin Dose 10 MG; Start 03/18/17 at 19:30 Levofloxacin/ Dextrose 100 ml @ 50 mls/hr Q24H IVPB Last administered on 22:25; Admin Dose 50 MLS/HR; Start 03/22/17 at 22:00 Vancomycin HCl (Vancocin) 100 ml @ 100 mls/hr Q12H IVPB Last administered on 04:29; Admin Dose 100 MLS/HR; Start 03/23/17 at 17:00 MINOO REY Mar 26, 2017 14:23
[2017-03-26] MEDS: LEVOFLOXACIN 500MG/D5W (PMX) 100 ML IVPB SCH (21:37)
[2017-03-27] VITALS (13 sets, daily range): BP systolic 86–143; BP diastolic 41–69; PULSE 70–90; RESP 16–20
[2017-03-27] MEDS: LEVALBUTEROL (NEB) 0.63 MG/3 ML AMP HHN SCH ×4 (01:18→20:34)
[2017-03-27] MEDS: LANSOPRAZOLE 30 MG CAP GTB SCH ×2 (05:09→17:47)
[2017-03-27] MEDS: VANCOMYCIN 500MG/NS (PMX) 100 ML IVPB SCH ×2 (05:09→17:47)
[2017-03-27 06:30] LABS: HEMATOCRIT 23.7 % (37.0-47.0); HEMOGLOBIN 7.5 g/dl (12.0-16.0); MEAN CORPUSCULAR HEMOGLOBIN 27.6 pg (29.0-33.0); MEAN CORPUSCULAR HGB CONC 31.6 g/dl (32.0-37.0); MEAN CORPUSCULAR VOLUME 87.1 fl (82.0-101.0); PLATELET COUNT 277 10^3/UL (140-415); RED BLOOD COUNT 2.72 10^6/ul (4.20-5.40); WHITE BLOOD COUNT 8.9 10^3/ul (4.8-10.8)
[2017-03-27 07:01] LABS: POSITIVE DIFF @See below
[2017-03-27 07:40] LABS: CALCIUM 6.6 mg/dl (8.4-10.2); CREATININE 0.54 mg/dl (0.44-1.00)
[2017-03-27 08:09] LABS: ANISOCYTOSIS 2+ (0-0); BASOPHILS % (M) 2 % (0-2); BURR CELLS 1+ (0-0); EOSINOPHILS % (M) 3 % (0-7); GIANT THROMBO% (M) 1 % (0-0); METAMYELOCYTES %M 2 % (0-0); MONOCYTES % (M) 4 % (0-11); MYELOCYTES % (M) 1 % (0-0); OVALOCYTES 1+ (0-0); PLATELET ESTIMATE NORMAL; POIKILOCYTOSIS 1+ (0-0); POLYCHROMASIA 1+ (0-0)
[2017-03-27] MEDS: NYSTATIN SUSP 5 ML CUP GTB SCH ×4 (09:04→21:17)
[2017-03-27] MEDS: NYSTATIN 30 GM POWDER BTL TOP SCH ×2 (09:04→21:19)
[2017-03-27] MEDS: APIXABAN 5 MG TABLET GTB SCH ×2 (09:04→21:17)
[2017-03-27] MEDS: ATENOLOL 25 MG TAB PO SCH ×2 (09:04→21:18)
[2017-03-27] MEDS: COLLAGENASE 30 GM TUBE TOP SCH (09:05)
[2017-03-27 10:40] LABS: BASOPHIL # 0.1 10^3/ul (0.0-0.1); BASOPHILS % 0.6 % (0.0-2.0); EOSINOPHILS # 0.1 10^3/ul (0.0-0.5); HEMATOCRIT 32.1 % (37.0-47.0); HEMOGLOBIN 10.3 g/dl (12.0-16.0); LYMPHOCYTES # 1.2 10^3/ul (0.8-2.9); LYMPHOCYTES % 9.3 % (15.0-51.0); MEAN CORPUSCULAR HEMOGLOBIN 27.2 pg (29.0-33.0); MEAN CORPUSCULAR HGB CONC 32.1 g/dl (32.0-37.0); MEAN CORPUSCULAR VOLUME 84.7 fl (82.0-101.0); MONOCYTE # 0.8 10^3/ul (0.3-0.9); MONOCYTES % 6.2 % (0.0-11.0); NEUTROPHIL # 10.3 10^3/ul (1.6-7.5); NEUTROPHILS % 80.6 % (39.0-77.0); PLATELET COUNT 403 10^3/UL (140-415); RED BLOOD COUNT 3.79 10^6/ul (4.20-5.40); WHITE BLOOD COUNT 12.8 10^3/ul (4.8-10.8)
[2017-03-27 11:00] LABS: CALCIUM 9.8 mg/dl (8.4-10.2); CREATININE 0.82 mg/dl (0.44-1.00); POTASSIUM 4.2 mmol/L (3.5-5.1)
[2017-03-27] MEDS: DIGOXIN 0.125 MG TAB PO SCH (13:25)
--- NOTE | 2017-03-27 14:31 | CONS ---
Date/Time of Note Date/Time of Note DATE: 03/27/17 TIME: 14:26 Assessment/Plan Assessment/Plan Additional Assessment/Plan 1. AF-mainly rate controlled/Trop negative x 3. Had pause x 3.7 seconds 01/30 on standing IVP BB. Now back in tele 2.Hypotension-on midodrine 3.encephalopathy/ams-slowly improving 4.coagulopathy-now on eliquis 5. Acute Renal failure-Now resolved 6.Leukocytosis 7. Cardiomyopathy-EF 45% 8. Cephalic vein thrombosis 9. Dysphagia s/p PEG 10. H Pylori 11.Bacteremia-recurrent. s/p repeat TTE with no defiinite vegetations but thickening of mitral valve appararatus(secondary to MS) and thus cannot completely rule out vegetations Recc: -Tele -serial ecg's -Cont. Eliquis -Follow MS closely which has had some significant improvement -Continue midodrine for low BP as necessary -S/P repeat TTE with no definite vegetaions but cannot completely rule out and thus will discuss DEBBIE with ID as treccomended but have concern for possible aspiration and/or general worsening of resp status durinig procedure as patient with poor overall MS/dysphagia -No definite indication for PPM at this time Consultation Date/Type/Reason Admit Date/Time Jan 16, 2017 at 15:19 Initial Consult Date 01/26/17 Type of Consultation: cardiology Referring Provider: LAWRENCE PICKERING 24 HR Interval Summary Free Text/Dictation Non communicating Exam/Review of Systems Vital Signs Vitals Vital Signs Date Time Temp Pulse Resp B/P Pulse Ox O2 Delivery O2 Flow Rate FiO2 03/27/17 13:23 76 20 97 21 03/27/17 12:27 98.5 92/56 Intake and Output 03/26/17 03/26/17 03/27/17 15:00 23:00 07:00 Intake Total 1200 ml 950 ml Balance 1200 ml 950 ml Exam No JVD Heart : Irregular Lungs: Clear Abd: B9 Ext: no edema Results Result Diagram: 03/27/17 1025 03/27/17 1025 Results 24 hrs Laboratory Tests Test 03/27/17 06:06 03/27/17 10:25 White Blood Count 8.9 # 12.8 #H Red Blood Count 2.72 #L 3.79 #L Hemoglobin 7.5 #L 10.3 #L Hematocrit 23.7 #L 32.1 #L Mean Corpuscular Volume 87.1 84.7 Mean Corpuscular Hemoglobin 27.6 L 27.2 L Mean Corpuscular Hemoglobin Concent 31.6 L 32.1 Red Cell Distribution Width 16.0 H 16.0 H Platelet Count 277 # 403 # Mean Platelet Volume 12.0 H 12.0 H Neutrophils % 80.6 H Segmented Neutrophils % (Manual) 59 Band Neutrophils % (Manual) 4 Lymphocytes % 9.3 L Lymphocytes % (Manual) 25 Monocytes % 6.2 Monocytes % (Manual) 4 Eosinophils % 1.0 Eosinophils % (Manual) 3 Basophils % 0.6 Basophils % (Manual) 2 Metamyelocytes % (manual) 2 H Myelocytes % (Manual) 1 H Nucleated Red Blood Cells % 0.0 0.0 Neutrophils # 10.3 H Neutrophils # (Manual) 5.3 Band Neutrophils # 0.3 Absolute Lymphocytes (Manual) 2.2 Lymphocytes # 1.2 Monocytes # 0.8 Absolute Monocytes (Manual) 0.3 Eosinophils # 0.1 Basophils # 0.1 Basophils # (Manual) 0.1 H Metamyelocytes # 0.1 H Myelocytes # 0.0 Nucleated Red Blood Cells # 0.0 Platelet Estimate NORMAL Giant Platelets 1 H Polychromasia 1+ Poikilocytosis 1+ Anisocytosis 2+ Ovalocytes 1+ Sodium Level 142 138 Potassium Level 3.0 L 4.2 Chloride Level 116 H 106 # Carbon Dioxide Level 18 L 24 Anion Gap 11 12 Blood Urea Nitrogen 15 # 19 Creatinine 0.54 0.82 Glucose Level 151 150 Calcium Level 6.6 L 9.8 Medications Medications Current Medications Miscellaneous Information 1 ea NOTE XX ; Start 01/17/17 at 10:00 Glucose (Glutose) 15 gm Q15M PRN PO DECREASED GLUCOSE; Start 01/17/17 at 10:00 Glucose (Glutose) 22.5 gm Q15M PRN PO DECREASED GLUCOSE; Start 01/17/17 at 10: 00 Dextrose (D50w Syringe) 25 ml Q15M PRN IV DECREASED GLUCOSE; Start 01/17/17 at 10:00 Dextrose (D50w Syringe) 50 ml Q15M PRN IV DECREASED GLUCOSE; Start 01/17/17 at 10:00 Glucagon (Glucagen) 1 mg Q15M PRN IM DECREASED GLUCOSE; Start 01/17/17 at 10:00 Glucose (Glutose) 15 gm Q15M PRN BUCCAL DECREASED GLUCOSE; Start 01/17/17 at 10 :00 Collagenase (Santyl) 1 applic DAILY TOP Last administered on 03/27/17 09:05; Admin Dose 1 APPLIC; Start 01/17/17 at 21:00 IV Flush (NS 10 ml) 10 ml PRN PRN IV IV PROTOCOL Last administered on 21:45; Admin Dose 10 ML; Start 01/22/17 at 12:00 Miscellaneous Information (Pending Santyl Order For Wound Care) This patient dunaway... PRN PRN XX WOUND CARE; Start 01/24/17 at 07:30 Bisacodyl (Dulcolax Supp) 10 mg DAILY PRN [place] CONSTIPATION Last administered on 02/24/17 15:02; Admin Dose 10 MG; Start 01/25/17 at 16:30 Acetaminophen (Tylenol Liquid) 650 mg Q4H PRN NGT PAIN AND OR ELEVATED TEMP Last administered on 03/26/17 10:06; Admin Dose 650 MG; Start 01/26/17 at 09:00 Metoprolol Tartrate (Lopressor) 2.5 mg Q4H PRN IV HR > 110 Last administered on 02/23/17 03:58; Admin Dose 2.5 MG; Start 01/26/17 at 15:00 Nystatin (Nystatin Powder) 1 applic BID TOP Last administered on 03/27/17 09: 04; Admin Dose 1 APPLIC; Start 02/04/17 at 12:00 Eye Lubricant (Artificial Tears Oph) 2 drop Q6H PRN BOTH EYES DRY EYES Last administered on 03/16/17 20:33; Admin Dose 2 DROP; Start 02/13/17 at 15:30 Nystatin (Nystatin Susp) 5 ml QID GTB Last administered on 03/27/17 13:25; Admin Dose 5 ML; Start 02/18/17 at 08:00 Lansoprazole (Prevacid) 30 mg BID@,18 GTB Last administered on 03/27/17 05: 09; Admin Dose 30 MG; Start 02/18/17 at 18:00 Apixaban (Eliquis) 5 mg BID GTB Last administered on 03/27/17 09:04; Admin Dose 5 MG; Start 02/22/17 at 22:00 Digoxin (Digoxin) 0.125 mg DAILY@13 PO Last administered on 03/27/17 13:25; Admin Dose 0.125 MG; Start 03/12/17 at 13:00 Atenolol (Tenormin) 12.5 mg BID PO Last administered on 03/27/17 09:04; Admin Dose 12.5 MG; Start 03/12/17 at 21:00 Midodrine 10 mg 10 mg Q8 PRN GTB BLOOD PRESSURE SUPPORT Last administered on 04:26; Admin Dose 10 MG; Start 03/18/17 at 19:30 Levofloxacin/ Dextrose 100 ml @ 50 mls/hr Q24H IVPB Last administered on 21:37; Admin Dose 50 MLS/HR; Start 03/22/17 at 22:00 Vancomycin HCl (Vancocin) 100 ml @ 100 mls/hr Q12H IVPB Last administered on 05:09; Admin Dose 100 MLS/HR; Start 03/23/17 at 17:00 CLIFF CRUM MD Mar 27, 2017 14:31
--- NOTE | 2017-03-27 19:58 | PN ---
Date/Time of Note Date/Time of Note DATE: 03/27/17 TIME: 19:55 Assessment/Plan VTE Prophylaxis VTE Prophylaxis Intervention: other Lines/Catheters [facility] Saline Lock Urinary Cath still in place: No Assessment/Plan Assessment/Plan - Enterococcus bacteremia, PICC line DC'd. No apparent vegetation per TTE. Continue antibiotics per ID. - Bacteremia and recurrent UTI versus colonization. Dr. Hiro villeda is following in ID consultation. - Bilateral thalamic infarctions. Dr. Ramirez is following in neurology consultation. - Gastritis due to H. pylori, status post EGD, completed therapy per H. pylori eradication. - Dysphagia, status post G-tube placement by Dr. Garcia. - Atrial fibrillation with rapid ventricular response. Dr. Armenta is following and cardiology consultation. Continue Eliquis. Digoxin and atenolol. - Thrombosis of the bilateral cephalic veins. - Acute kidney injury, resolved. - History of CVA - History of hyperlipidemia Further recommendations based on clinical course. Plan of care discussed with Dr. Valdovinos. Subjective 24 Hr Interval Summary Free Text/Dictation alert, awake. afebrie.follows simple commands,WBC elevated, ID follows family at bed side- all Qs answered, [facility] staff- no new events reported overnight. Respiratory: no complaints Cardiovascular: no complaints Gastrointestinal: no complaints Exam/Review of Systems Vital Signs Vitals Vital Signs Date Time Temp Pulse Resp B/P Pulse Ox O2 Delivery O2 Flow Rate FiO2 03/27/17 19:18 97.7 95 18 108/69 97 03/27/17 13:23 21 Intake and Output 03/26/17 03/26/17 03/27/17 15:00 23:00 07:00 Intake Total 1200 ml 950 ml Balance 1200 ml 950 ml Exam Constitutional: alert, well developed Respiratory: clear to auscultation, normal air movement Cardiovascular: nl pulses, regular rate and rhythm Gastrointestinal: non-tender, soft Musculoskeletal: nl extremities to inspection Extremities: normal pulses Neurological: other (alert, awake. afebrie.follows simple commands,) Results Result Diagram: 03/27/17 1025 03/27/17 1025 Results 24 hrs Laboratory Tests Test 03/27/17 06:06 03/27/17 10:25 White Blood Count 8.9 # 12.8 #H Red Blood Count 2.72 #L 3.79 #L Hemoglobin 7.5 #L 10.3 #L Hematocrit 23.7 #L 32.1 #L Mean Corpuscular Volume 87.1 84.7 Mean Corpuscular Hemoglobin 27.6 L 27.2 L Mean Corpuscular Hemoglobin Concent 31.6 L 32.1 Red Cell Distribution Width 16.0 H 16.0 H Platelet Count 277 # 403 # Mean Platelet Volume 12.0 H 12.0 H Neutrophils % 80.6 H Segmented Neutrophils % (Manual) 59 Band Neutrophils % (Manual) 4 Lymphocytes % 9.3 L Lymphocytes % (Manual) 25 Monocytes % 6.2 Monocytes % (Manual) 4 Eosinophils % 1.0 Eosinophils % (Manual) 3 Basophils % 0.6 Basophils % (Manual) 2 Metamyelocytes % (manual) 2 H Myelocytes % (Manual) 1 H Nucleated Red Blood Cells % 0.0 0.0 Neutrophils # 10.3 H Neutrophils # (Manual) 5.3 Band Neutrophils # 0.3 Absolute Lymphocytes (Manual) 2.2 Lymphocytes # 1.2 Monocytes # 0.8 Absolute Monocytes (Manual) 0.3 Eosinophils # 0.1 Basophils # 0.1 Basophils # (Manual) 0.1 H Metamyelocytes # 0.1 H Myelocytes # 0.0 Nucleated Red Blood Cells # 0.0 Platelet Estimate NORMAL Giant Platelets 1 H Polychromasia 1+ Poikilocytosis 1+ Anisocytosis 2+ Ovalocytes 1+ Sodium Level 142 138 Potassium Level 3.0 L 4.2 Chloride Level 116 H 106 # Carbon Dioxide Level 18 L 24 Anion Gap 11 12 Blood Urea Nitrogen 15 # 19 Creatinine 0.54 0.82 Glucose Level 151 150 Calcium Level 6.6 L 9.8 Medications Medications Current Medications Miscellaneous Information 1 ea NOTE XX ; Start 01/17/17 at 10:00 Glucose (Glutose) 15 gm Q15M PRN PO DECREASED GLUCOSE; Start 01/17/17 at 10:00 Glucose (Glutose) 22.5 gm Q15M PRN PO DECREASED GLUCOSE; Start 01/17/17 at 10: 00 Dextrose (D50w Syringe) 25 ml Q15M PRN IV DECREASED GLUCOSE; Start 01/17/17 at 10:00 Dextrose (D50w Syringe) 50 ml Q15M PRN IV DECREASED GLUCOSE; Start 01/17/17 at 10:00 Glucagon (Glucagen) 1 mg Q15M PRN IM DECREASED GLUCOSE; Start 01/17/17 at 10:00 Glucose (Glutose) 15 gm Q15M PRN BUCCAL DECREASED GLUCOSE; Start 01/17/17 at 10 :00 Collagenase (Santyl) 1 applic DAILY TOP Last administered on 03/27/17 09:05; Admin Dose 1 APPLIC; Start 01/17/17 at 21:00 IV Flush (NS 10 ml) 10 ml PRN PRN IV IV PROTOCOL Last administered on 21:45; Admin Dose 10 ML; Start 01/22/17 at 12:00 Miscellaneous Information (Pending Santyl Order For Wound Care) This patient dunaway... PRN PRN XX WOUND CARE; Start 01/24/17 at 07:30 Bisacodyl (Dulcolax Supp) 10 mg DAILY PRN [place] CONSTIPATION Last administered on 02/24/17 15:02; Admin Dose 10 MG; Start 01/25/17 at 16:30 Acetaminophen (Tylenol Liquid) 650 mg Q4H PRN NGT PAIN AND OR ELEVATED TEMP Last administered on 03/26/17 10:06; Admin Dose 650 MG; Start 01/26/17 at 09:00 Metoprolol Tartrate (Lopressor) 2.5 mg Q4H PRN IV HR > 110 Last administered on 02/23/17 03:58; Admin Dose 2.5 MG; Start 01/26/17 at 15:00 Nystatin (Nystatin Powder) 1 applic BID TOP Last administered on 03/27/17 09: 04; Admin Dose 1 APPLIC; Start 02/04/17 at 12:00 Eye Lubricant (Artificial Tears Oph) 2 drop Q6H PRN BOTH EYES DRY EYES Last administered on 03/16/17 20:33; Admin Dose 2 DROP; Start 02/13/17 at 15:30 Nystatin (Nystatin Susp) 5 ml QID GTB Last administered on 03/27/17 17:47; Admin Dose 5 ML; Start 02/18/17 at 08:00 Lansoprazole (Prevacid) 30 mg BID@,18 GTB Last administered on 03/27/17 17: 47; Admin Dose 30 MG; Start 02/18/17 at 18:00 Apixaban (Eliquis) 5 mg BID GTB Last administered on 03/27/17 09:04; Admin Dose 5 MG; Start 02/22/17 at 22:00 Digoxin (Digoxin) 0.125 mg DAILY@13 PO Last administered on 03/27/17 13:25; Admin Dose 0.125 MG; Start 03/12/17 at 13:00 Atenolol (Tenormin) 12.5 mg BID PO Last administered on 03/27/17 09:04; Admin Dose 12.5 MG; Start 03/12/17 at 21:00 Midodrine 10 mg 10 mg Q8 PRN GTB BLOOD PRESSURE SUPPORT Last administered on 04:26; Admin Dose 10 MG; Start 03/18/17 at 19:30 Levofloxacin/ Dextrose 100 ml @ 50 mls/hr Q24H IVPB Last administered on 21:37; Admin Dose 50 MLS/HR; Start 03/22/17 at 22:00 Vancomycin HCl (Vancocin) 100 ml @ 100 mls/hr Q12H IVPB Last administered on 17:47; Admin Dose 100 MLS/HR; Start 03/23/17 at 17:00 Miscellaneous Information (*Rx Drug Level Order Reminder*) VANCOMYCIN TROUGH AT 0400 ONCE ONCE XX ; Start 03/28/17 at 04:00; Stop 03/28/17 at 04:01 ALEXIS NAJERA Mar 27, 2017 19:58
[2017-03-27] MEDS: LEVOFLOXACIN 500MG/D5W (PMX) 100 ML IVPB SCH (21:20)
[2017-03-28] VITALS (12 sets, daily range): BP systolic 97–143; BP diastolic 54–77; PULSE 80–103; RESP 16–18
[2017-03-28] MEDS: LEVALBUTEROL (NEB) 0.63 MG/3 ML AMP HHN SCH ×4 (01:49→19:34)
[2017-03-28 04:18] LABS: BASOPHIL # 0.1 10^3/ul (0.0-0.1); BASOPHILS % 0.7 % (0.0-2.0); EOSINOPHILS # 0.2 10^3/ul (0.0-0.5); EOSINOPHILS % 1.7 % (0.0-7.0); HEMATOCRIT 31.9 % (37.0-47.0); HEMOGLOBIN 10.3 g/dl (12.0-16.0); LYMPHOCYTES # 1.7 10^3/ul (0.8-2.9); LYMPHOCYTES % 13.6 % (15.0-51.0); MEAN CORPUSCULAR HEMOGLOBIN 27.3 pg (29.0-33.0); MEAN CORPUSCULAR HGB CONC 32.3 g/dl (32.0-37.0); MEAN CORPUSCULAR VOLUME 84.6 fl (82.0-101.0); MEAN PLATELET VOLUME 11.8 fl (7.4-10.4); MONOCYTES % 8.5 % (0.0-11.0); NEUTROPHIL # 8.9 10^3/ul (1.6-7.5); NEUTROPHILS % 72.9 % (39.0-77.0); PLATELET COUNT 381 10^3/UL (140-415); RED BLOOD COUNT 3.77 10^6/ul (4.20-5.40); WHITE BLOOD COUNT 12.2 10^3/ul (4.8-10.8)
[2017-03-28 04:32] LABS: CALCIUM 9.6 mg/dl (8.4-10.2); CREATININE 0.79 mg/dl (0.44-1.00); POTASSIUM 4.3 mmol/L (3.5-5.1)
[2017-03-28] MEDS: VANCOMYCIN 500MG/NS (PMX) 100 ML IVPB SCH ×2 (05:30→17:06)
[2017-03-28] MEDS: LANSOPRAZOLE 30 MG CAP GTB SCH ×2 (05:31→17:06)
[2017-03-28] MEDS: COLLAGENASE 30 GM TUBE TOP SCH (09:04)
[2017-03-28] MEDS: NYSTATIN 30 GM POWDER BTL TOP SCH ×2 (09:04→21:21)
[2017-03-28] MEDS: APIXABAN 5 MG TABLET GTB SCH ×2 (09:24→21:20)
[2017-03-28] MEDS: NYSTATIN SUSP 5 ML CUP GTB SCH ×4 (09:25→21:20)
[2017-03-28] MEDS: ACETAMINOPHEN 650MG/20.3ML CUP NGT PRN ×2 (09:25→20:24)
[2017-03-28] MEDS: ATENOLOL 25 MG TAB PO SCH ×2 (09:25→21:20)
--- NOTE | 2017-03-28 12:01 | RADRPT ---
PROCEDURE: US upper extremity Venous. CLINICAL INDICATION: Right arm edema , pain TECHNIQUE: Multiple sonographic images of the right upper extremity venous system was obtained uti lizing grayscale, color-flow, compressive sonography and doppler imaging with augmentation. The allie ges were reviewed on a PACS workstation. COMPARISON: 03/14/17 FINDINGS: There is normal compressibility and flow within the right internal jugular vein, subclavian vein, ax illary vein, brachial, basilic, cephalic, radial and ulnar veins. RPTAT: AA IMPRESSION: No sonographic evidence for venous thrombosis. .Fly Kuo MD, MD Date Time Electronically viewed and signed by .Fly Kuo MD, MD on 03/28/2017 12:01 .S/
--- NOTE | 2017-03-28 14:35 | CONS ---
Date/Time of Note Date/Time of Note DATE: 03/28/17 TIME: 14:31 Assessment/Plan Assessment/Plan Additional Assessment/Plan 1. AF-mainly rate controlled/Trop negative x 3. Had pause x 3.7 seconds 01/30 on standing IVP BB. Now back in tele 2.Hypotension-on midodrine 3.encephalopathy/ams-slowly improving 4.coagulopathy-now on eliquis 5. Acute Renal failure-Now resolved 6.Leukocytosis 7. Cardiomyopathy-EF 45% 8. Cephalic vein thrombosis 9. Dysphagia s/p PEG 10. H Pylori 11.Bacteremia-recurrent. s/p repeat TTE with no defiinite vegetations but thickening of mitral valve appararatus(secondary to MS) and thus cannot completely rule out vegetations 12. dry cough: as per PMD Recc: same Rx. Consultation Date/Type/Reason Admit Date/Time Jan 16, 2017 at 15:19 Initial Consult Date 01/26/17 Type of Consultation: cardiology Referring Provider: LAWRENCE PICKERING 24 HR Interval Summary Free Text/Dictation ROS: c/o cough No fever, no chills, no nausea, no vomiting, no diarrhea/constipation No recent weight changes No edema, no palpitations No chest pain, no PND, no SOB No dizziness, blurred vision No thirst, no heat or cold intolerance Exam/Review of Systems Vital Signs Vitals Vital Signs Date Time Temp Pulse Resp B/P Pulse Ox O2 Delivery O2 Flow Rate FiO2 03/28/17 12:14 96.7 69 16 113/66 98 03/28/17 08:32 21 Intake and Output 03/27/17 03/27/17 03/28/17 15:00 23:00 07:00 Intake Total 1340 ml 100 ml Balance 1340 ml 100 ml Exam General: WN/WD HEENT: Unicetric/atraumatic/ no assymetry NECK: JVD not elevated, no thyromegaly, carotids revealed normal upstrokes Lymph: no lymphadenopathy HEART: irregular with no S3, I/ systolic murmur at apex LUNGS: clear ABD: soft, NT, ND, +BS, no organomegaly Neuro: no deficit SKIN: no leisons EXT: no edema Results Result Diagram: 03/28/1740203/28/17402 Results 24 hrs Laboratory Tests Test 03/28/17 04:03 White Blood Count 12.2 H Red Blood Count 3.77 L Hemoglobin 10.3 L Hematocrit 31.9 L Mean Corpuscular Volume 84.6 Mean Corpuscular Hemoglobin 27.3 L Mean Corpuscular Hemoglobin Concent 32.3 Red Cell Distribution Width 16.0 H Platelet Count 381 Mean Platelet Volume 11.8 H Neutrophils % 72.9 Lymphocytes % 13.6 L Monocytes % 8.5 Eosinophils % 1.7 Basophils % 0.7 Nucleated Red Blood Cells % 0.0 Neutrophils # 8.9 H Lymphocytes # 1.7 Monocytes # 1.0 H Eosinophils # 0.2 Basophils # 0.1 Nucleated Red Blood Cells # 0.0 Sodium Level 141 Potassium Level 4.3 Chloride Level 108 Carbon Dioxide Level 25 Anion Gap 12 Blood Urea Nitrogen 17 Creatinine 0.79 Glucose Level 111 Calcium Level 9.6 Vancomycin Level Trough 14.0 Medications Medications Current Medications Miscellaneous Information 1 ea NOTE XX ; Start 01/17/17 at 10:00 Glucose (Glutose) 15 gm Q15M PRN PO DECREASED GLUCOSE; Start 01/17/17 at 10:00 Glucose (Glutose) 22.5 gm Q15M PRN PO DECREASED GLUCOSE; Start 01/17/17 at 10: 00 Dextrose (D50w Syringe) 25 ml Q15M PRN IV DECREASED GLUCOSE; Start 01/17/17 at 10:00 Dextrose (D50w Syringe) 50 ml Q15M PRN IV DECREASED GLUCOSE; Start 01/17/17 at 10:00 Glucagon (Glucagen) 1 mg Q15M PRN IM DECREASED GLUCOSE; Start 01/17/17 at 10:00 Glucose (Glutose) 15 gm Q15M PRN BUCCAL DECREASED GLUCOSE; Start 01/17/17 at 10 :00 Collagenase (Santyl) 1 applic DAILY TOP Last administered on 03/28/17 09:04; Admin Dose 1 APPLIC; Start 01/17/17 at 21:00 IV Flush (NS 10 ml) 10 ml PRN PRN IV IV PROTOCOL Last administered on 21:45; Admin Dose 10 ML; Start 01/22/17 at 12:00 Miscellaneous Information (Pending Santyl Order For Wound Care) This patient dunaway... PRN PRN XX WOUND CARE; Start 01/24/17 at 07:30 Bisacodyl (Dulcolax Supp) 10 mg DAILY PRN [place] CONSTIPATION Last administered on 02/24/17 15:02; Admin Dose 10 MG; Start 01/25/17 at 16:30 Acetaminophen (Tylenol Liquid) 650 mg Q4H PRN NGT PAIN AND OR ELEVATED TEMP Last administered on 03/28/17 09:25; Admin Dose 650 MG; Start 01/26/17 at 09:00 Metoprolol Tartrate (Lopressor) 2.5 mg Q4H PRN IV HR > 110 Last administered on 02/23/17 03:58; Admin Dose 2.5 MG; Start 01/26/17 at 15:00 Nystatin (Nystatin Powder) 1 applic BID TOP Last administered on 03/28/17 09: 04; Admin Dose 1 APPLIC; Start 02/04/17 at 12:00 Eye Lubricant (Artificial Tears Oph) 2 drop Q6H PRN BOTH EYES DRY EYES Last administered on 03/16/17 20:33; Admin Dose 2 DROP; Start 02/13/17 at 15:30 Nystatin (Nystatin Susp) 5 ml QID GTB Last administered on 03/28/17 09:25; Admin Dose 5 ML; Start 02/18/17 at 08:00 Lansoprazole (Prevacid) 30 mg BID@06,18 GTB Last administered on 03/28/17 05: 31; Admin Dose 30 MG; Start 02/18/17 at 18:00 Apixaban (Eliquis) 5 mg BID GTB Last administered on 03/28/17 09:24; Admin Dose 5 MG; Start 02/22/17 at 22:00 Digoxin (Digoxin) 0.125 mg DAILY@13 PO Last administered on 03/27/17 13:25; Admin Dose 0.125 MG; Start 03/12/17 at 13:00 Atenolol (Tenormin) 12.5 mg BID PO Last administered on 03/28/17 09:25; Admin Dose 12.5 MG; Start 03/12/17 at 21:00 Midodrine 10 mg 10 mg Q8 PRN GTB BLOOD PRESSURE SUPPORT Last administered on 04:26; Admin Dose 10 MG; Start 03/18/17 at 19:30 Levofloxacin/ Dextrose 100 ml @ 50 mls/hr Q24H IVPB Last administered on 21:20; Admin Dose 50 MLS/HR; Start 03/22/17 at 22:00 Vancomycin HCl (Vancocin) 100 ml @ 100 mls/hr Q12H IVPB Last administered on 05:30; Admin Dose 100 MLS/HR; Start 03/23/17 at 17:00 CLIFF CRUM MD Mar 28, 2017 14:35
[2017-03-28] MEDS: DIGOXIN 0.125 MG TAB PO SCH (14:57)
--- NOTE | 2017-03-28 15:59 | PN ---
Date/Time of Note Date/Time of Note DATE: 03/28/17 TIME: 15:56 Assessment/Plan VTE Prophylaxis VTE Prophylaxis Intervention: other Lines/Catheters IV Catheter Type (from [facility]): Saline Lock Urinary Cath still in place: No Assessment/Plan Assessment/Plan - Pain- RUE- venous doppler neg for DVT - Enterococcus bacteremia, PICC line DC'd. No apparent vegetation per TTE. Continue antibiotics per ID. - Bacteremia and recurrent UTI versus colonization. Dr. Hiro villeda is following in ID consultation. - Bilateral thalamic infarctions. Dr. Ramirez is following in neurology consultation. - Gastritis due to H. pylori, status post EGD, completed therapy per H. pylori eradication. - Dysphagia, status post G-tube placement by Dr. Garcia. - Atrial fibrillation with rapid ventricular response. Dr. Armenta is following and cardiology consultation. Continue Eliquis. Digoxin and atenolol. - Thrombosis of the bilateral cephalic veins. - Acute kidney injury, resolved. - History of CVA - History of hyperlipidemia Further recommendations based on clinical course. Plan of care discussed with Dr. Valdovinos. Subjective 24 Hr Interval Summary Free Text/Dictation -AFEBRILE, wbc elevated, Pain- RUE- venous doppler neg for DVT, dw staff Respiratory: no complaints Cardiovascular: no complaints Gastrointestinal: no complaints Exam/Review of Systems Vital Signs Vitals Vital Signs Date Time Temp Pulse Resp B/P Pulse Ox O2 Delivery O2 Flow Rate FiO2 03/28/17 15:46 97.4 62 16 121/62 99 03/28/17 15:15 21 Intake and Output 03/27/17 03/27/17 03/28/17 15:00 23:00 07:00 Intake Total 1340 ml 100 ml Balance 1340 ml 100 ml Exam Constitutional: alert, well developed Respiratory: clear to auscultation, normal air movement Cardiovascular: nl pulses, other (a flutter) Gastrointestinal: non-tender, soft Musculoskeletal: nl extremities to inspection Extremities: normal pulses Neurological: other (follows simple commands) Results Result Diagram: 03/28/1740203/28/17402 Results 24 hrs Laboratory Tests Test 03/28/17 04:03 White Blood Count 12.2 H Red Blood Count 3.77 L Hemoglobin 10.3 L Hematocrit 31.9 L Mean Corpuscular Volume 84.6 Mean Corpuscular Hemoglobin 27.3 L Mean Corpuscular Hemoglobin Concent 32.3 Red Cell Distribution Width 16.0 H Platelet Count 381 Mean Platelet Volume 11.8 H Neutrophils % 72.9 Lymphocytes % 13.6 L Monocytes % 8.5 Eosinophils % 1.7 Basophils % 0.7 Nucleated Red Blood Cells % 0.0 Neutrophils # 8.9 H Lymphocytes # 1.7 Monocytes # 1.0 H Eosinophils # 0.2 Basophils # 0.1 Nucleated Red Blood Cells # 0.0 Sodium Level 141 Potassium Level 4.3 Chloride Level 108 Carbon Dioxide Level 25 Anion Gap 12 Blood Urea Nitrogen 17 Creatinine 0.79 Glucose Level 111 Calcium Level 9.6 Vancomycin Level Trough 14.0 Medications Medications Current Medications Miscellaneous Information 1 ea NOTE XX ; Start 01/17/17 at 10:00 Glucose (Glutose) 15 gm Q15M PRN PO DECREASED GLUCOSE; Start 01/17/17 at 10:00 Glucose (Glutose) 22.5 gm Q15M PRN PO DECREASED GLUCOSE; Start 01/17/17 at 10: 00 Dextrose (D50w Syringe) 25 ml Q15M PRN IV DECREASED GLUCOSE; Start 01/17/17 at 10:00 Dextrose (D50w Syringe) 50 ml Q15M PRN IV DECREASED GLUCOSE; Start 01/17/17 at 10:00 Glucagon (Glucagen) 1 mg Q15M PRN IM DECREASED GLUCOSE; Start 01/17/17 at 10:00 Glucose (Glutose) 15 gm Q15M PRN BUCCAL DECREASED GLUCOSE; Start 01/17/17 at 10 :00 Collagenase (Santyl) 1 applic DAILY TOP Last administered on 03/28/17 09:04; Admin Dose 1 APPLIC; Start 01/17/17 at 21:00 IV Flush (NS 10 ml) 10 ml PRN PRN IV IV PROTOCOL Last administered on 21:45; Admin Dose 10 ML; Start 01/22/17 at 12:00 Miscellaneous Information (Pending Santyl Order For Wound Care) This patient dunaway... PRN PRN XX WOUND CARE; Start 01/24/17 at 07:30 Bisacodyl (Dulcolax Supp) 10 mg DAILY PRN [place] CONSTIPATION Last administered on 02/24/17 15:02; Admin Dose 10 MG; Start 01/25/17 at 16:30 Acetaminophen (Tylenol Liquid) 650 mg Q4H PRN NGT PAIN AND OR ELEVATED TEMP Last administered on 03/28/17 09:25; Admin Dose 650 MG; Start 01/26/17 at 09:00 Metoprolol Tartrate (Lopressor) 2.5 mg Q4H PRN IV HR > 110 Last administered on 02/23/17 03:58; Admin Dose 2.5 MG; Start 01/26/17 at 15:00 Nystatin (Nystatin Powder) 1 applic BID TOP Last administered on 03/28/17 09: 04; Admin Dose 1 APPLIC; Start 02/04/17 at 12:00 Eye Lubricant (Artificial Tears Oph) 2 drop Q6H PRN BOTH EYES DRY EYES Last administered on 03/16/17 20:33; Admin Dose 2 DROP; Start 02/13/17 at 15:30 Nystatin (Nystatin Susp) 5 ml QID GTB Last administered on 03/28/17 14:55; Admin Dose 5 ML; Start 02/18/17 at 08:00 Lansoprazole (Prevacid) 30 mg BID@06,18 GTB Last administered on 03/28/17 05: 31; Admin Dose 30 MG; Start 02/18/17 at 18:00 Apixaban (Eliquis) 5 mg BID GTB Last administered on 03/28/17 09:24; Admin Dose 5 MG; Start 02/22/17 at 22:00 Digoxin (Digoxin) 0.125 mg DAILY@13 PO Last administered on 03/28/17 14:57; Admin Dose 0.125 MG; Start 03/12/17 at 13:00 Atenolol (Tenormin) 12.5 mg BID PO Last administered on 03/28/17 09:25; Admin Dose 12.5 MG; Start 03/12/17 at 21:00 Midodrine 10 mg 10 mg Q8 PRN GTB BLOOD PRESSURE SUPPORT Last administered on 04:26; Admin Dose 10 MG; Start 03/18/17 at 19:30 Levofloxacin/ Dextrose 100 ml @ 50 mls/hr Q24H IVPB Last administered on 21:20; Admin Dose 50 MLS/HR; Start 03/22/17 at 22:00 Vancomycin HCl (Vancocin) 100 ml @ 100 mls/hr Q12H IVPB Last administered on t 05:30; Admin Dose 100 MLS/HR; Start 03/23/17 at 17:00 ALEXIS NAJERA Mar 28, 2017 15:59
[2017-03-28] MEDS: LEVOFLOXACIN 500MG/D5W (PMX) 100 ML IVPB SCH (21:20)
[2017-03-29] VITALS (11 sets, daily range): BP systolic 110–144; BP diastolic 55–77; PULSE 75–97; RESP 16–20
[2017-03-29] MEDS: LEVALBUTEROL (NEB) 0.63 MG/3 ML AMP HHN SCH ×4 (02:16→19:28)
[2017-03-29] MEDS: VANCOMYCIN 500MG/NS (PMX) 100 ML IVPB SCH (06:07)
[2017-03-29] MEDS: LANSOPRAZOLE 30 MG CAP GTB SCH ×2 (06:07→17:48)
[2017-03-29 06:19] LABS: BASOPHIL # 0.1 10^3/ul (0.0-0.1); BASOPHILS % 0.7 % (0.0-2.0); EOSINOPHILS # 0.2 10^3/ul (0.0-0.5); EOSINOPHILS % 1.3 % (0.0-7.0); HEMATOCRIT 32.8 % (37.0-47.0); HEMOGLOBIN 10.1 g/dl (12.0-16.0); LYMPHOCYTES # 1.4 10^3/ul (0.8-2.9); LYMPHOCYTES % 11.6 % (15.0-51.0); MEAN CORPUSCULAR HEMOGLOBIN 26.4 pg (29.0-33.0); MEAN CORPUSCULAR HGB CONC 30.8 g/dl (32.0-37.0); MEAN CORPUSCULAR VOLUME 85.6 fl (82.0-101.0); MEAN PLATELET VOLUME 12.3 fl (7.4-10.4); MONOCYTE # 0.8 10^3/ul (0.3-0.9); MONOCYTES % 6.3 % (0.0-11.0); NEUTROPHIL # 9.6 10^3/ul (1.6-7.5); NEUTROPHILS % 78.1 % (39.0-77.0); PLATELET COUNT 291 10^3/UL (140-415); RED BLOOD COUNT 3.83 10^6/ul (4.20-5.40); RED CELL DISTRIBUTION WIDTH 16.5 % (11.5-14.5); WHITE BLOOD COUNT 12.3 10^3/ul (4.8-10.8)
--- NOTE | 2017-03-29 06:24 | CONS ---
Date/Time of Note Date/Time of Note DATE: 03/27/17 TIME: : Assessment/Plan Assessment/Plan Chief Complaint/Hosp Course - sepsis due to bacteremia and UTI - enterococcus bacteremia likely due to line sepsis - UTI due to E. coli - s/p UTI due to proteus - dysphagia s/p PEG - diffuse moderate degree of gastritis s/p EGD 02/15/2017 - gastritis due to H. pylori based on pathology 02/15/2017, on clarithromycin based regimen (02/20/2017-), [id number] - bleeding from GT site, and blood clots in tube feed - resolved - recurrent CVA - possible aspiration, improved - encephalopathy due to CVA. CSF from 01/19/2017: WBC=3, RBC=0, glu 53, pro=61, CSF ([place] serology negative, HSV negative, cocci CF negative, encephalitis meningitis panel could not be done due to a lack of sample), serum ([place] PCR negative, crypto antigen negative, cocci CF negative, histo CF negative). my order of crypto in CSF was cancelled and no reason given - bacteremia due to CoNS, probable contaminant. 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 Please hold off on central line placement until blood cultures negative for at least 48 hours. - We recommend DEBBIE to r/o endocarditis and guide duration of antibiotic course Problems: Consultation Date/Type/Reason Admit Date/Time Jan 16, 2017 at 15:19 Type of Consultation: id Referring Provider: LAWRENCE PICKERING Exam/Review of Systems Vital Signs Vitals Vital Signs Date Time Temp Pulse Resp B/P Pulse Ox O2 Delivery O2 Flow Rate FiO2 03/29/17 04:26 98.5 69 16 110/60 96 03/29/17 02:16 21 Intake and Output 03/28/17 03/28/17 03/29/17 15:00 23:00 07:00 Intake Total 400 ml Balance 400 ml Exam Constitutional: alert, oriented, well developed Psych: nl mood/affect, no complaints Head: atraumatic, normocephalic Eyes: EOMI, PERRL, nl conjunctiva, nl lids, nl sclera Respiratory: clear to auscultation, normal air movement Cardiovascular: nl pulses, regular rate and rhythm Gastrointestinal: nl liver, spleen, non-tender, soft Results Result Diagram: 03/28/17 0403 03/28/17 0403 Results 24 hrs Laboratory Tests Test 03/29/17 05:59 White Blood Count Pending Red Blood Count Pending Hemoglobin Pending Hematocrit Pending Mean Corpuscular Volume Pending Mean Corpuscular Hemoglobin Pending Mean Corpuscular Hemoglobin Concent Pending Red Cell Distribution Width Pending Platelet Count Pending Mean Platelet Volume Pending Medications Medications Current Medications Miscellaneous Information 1 ea NOTE XX ; Start 01/17/17 at 10:00 Glucose (Glutose) 15 gm Q15M PRN PO DECREASED GLUCOSE; Start 01/17/17 at 10:00 Glucose (Glutose) 22.5 gm Q15M PRN PO DECREASED GLUCOSE; Start 01/17/17 at 10: 00 Dextrose (D50w Syringe) 25 ml Q15M PRN IV DECREASED GLUCOSE; Start 01/17/17 at 10:00 Dextrose (D50w Syringe) 50 ml Q15M PRN IV DECREASED GLUCOSE; Start 01/17/17 at 10:00 Glucagon (Glucagen) 1 mg Q15M PRN IM DECREASED GLUCOSE; Start 01/17/17 at 10:00 Glucose (Glutose) 15 gm Q15M PRN BUCCAL DECREASED GLUCOSE; Start 01/17/17 at 10 :00 Collagenase (Santyl) 1 applic DAILY TOP Last administered on 03/28/17 09:04; Admin Dose 1 APPLIC; Start 01/17/17 at 21:00 IV Flush (NS 10 ml) 10 ml PRN PRN IV IV PROTOCOL Last administered on 21:45; Admin Dose 10 ML; Start 01/22/17 at 12:00 Miscellaneous Information (Pending Santyl Order For Wound Care) This patient dunaway... PRN PRN XX WOUND CARE; Start 01/24/17 at 07:30 Bisacodyl (Dulcolax Supp) 10 mg DAILY PRN [place] CONSTIPATION Last administered on 02/24/17 15:02; Admin Dose 10 MG; Start 01/25/17 at 16:30 Acetaminophen (Tylenol Liquid) 650 mg Q4H PRN NGT PAIN AND OR ELEVATED TEMP Last administered on 03/28/17 20:24; Admin Dose 650 MG; Start 01/26/17 at 09:00 Metoprolol Tartrate (Lopressor) 2.5 mg Q4H PRN IV HR > 110 Last administered on 02/23/17 03:58; Admin Dose 2.5 MG; Start 01/26/17 at 15:00 Nystatin (Nystatin Powder) 1 applic BID TOP Last administered on 03/28/17 21: 21; Admin Dose 1 APPLIC; Start 02/04/17 at 12:00 Eye Lubricant (Artificial Tears Oph) 2 drop Q6H PRN BOTH EYES DRY EYES Last administered on 03/16/17 20:33; Admin Dose 2 DROP; Start 02/13/17 at 15:30 Nystatin (Nystatin Susp) 5 ml QID GTB Last administered on 03/28/17 21:20; Admin Dose 5 ML; Start 02/18/17 at 08:00 Lansoprazole (Prevacid) 30 mg BID@06,18 GTB Last administered on 03/29/17 06: 07; Admin Dose 30 MG; Start 02/18/17 at 18:00 Apixaban (Eliquis) 5 mg BID GTB Last administered on 03/28/17 21:20; Admin Dose 5 MG; Start 02/22/17 at 22:00 Digoxin (Digoxin) 0.125 mg DAILY@13 PO Last administered on 03/28/17 14:57; Admin Dose 0.125 MG; Start 03/12/17 at 13:00 Atenolol (Tenormin) 12.5 mg BID PO Last administered on 03/28/17 21:20; Admin Dose 12.5 MG; Start 03/12/17 at 21:00 Midodrine 10 mg 10 mg Q8 PRN GTB BLOOD PRESSURE SUPPORT Last administered on 04:26; Admin Dose 10 MG; Start 03/18/17 at 19:30 Levofloxacin/ Dextrose 100 ml @ 50 mls/hr Q24H IVPB Last administered on 21:20; Admin Dose 50 MLS/HR; Start 03/22/17 at 22:00 Vancomycin HCl (Vancocin) 100 ml @ 100 mls/hr Q12H IVPB Last administered on 06:07; Admin Dose 100 MLS/HR; Start 03/23/17 at 17:00 SHELBY SHUKLA MD Mar 29, 2017 06:24
--- NOTE | 2017-03-29 06:24 | CONS ---
Date/Time of Note Date/Time of Note DATE: 03/28/17 TIME: 06:24 Assessment/Plan Assessment/Plan Chief Complaint/Hosp Course - sepsis due to bacteremia and UTI - enterococcus bacteremia likely due to line sepsis - UTI due to E. coli - s/p UTI due to proteus - dysphagia s/p PEG - diffuse moderate degree of gastritis s/p EGD 02/15/2017 - gastritis due to H. pylori based on pathology 02/15/2017, on clarithromycin based regimen (02/20/2017-), [id number] - bleeding from GT site, and blood clots in tube feed - resolved - recurrent CVA - possible aspiration, improved - encephalopathy due to CVA. CSF from 01/19/2017: WBC=3, RBC=0, glu 53, pro=61, CSF ([place] serology negative, HSV negative, cocci CF negative, encephalitis meningitis panel could not be done due to a lack of sample), serum ([place] PCR negative, crypto antigen negative, cocci CF negative, histo CF negative). my order of crypto in CSF was cancelled and no reason given - bacteremia due to CoNS, probable contaminant. 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 Please hold off on central line placement until blood cultures negative for at least 48 hours. - We recommend DEBBIE to r/o endocarditis and guide duration of antibiotic course Problems: Consultation Date/Type/Reason Admit Date/Time Jan 16, 2017 at 15:19 Type of Consultation: id Referring Provider: LAWRENCE PICKERING Exam/Review of Systems Vital Signs Vitals Vital Signs Date Time Temp Pulse Resp B/P Pulse Ox O2 Delivery O2 Flow Rate FiO2 03/29/17 04:26 98.5 69 16 110/60 96 03/29/17 02:16 21 Intake and Output 03/28/17 03/28/17 03/29/17 15:00 23:00 07:00 Intake Total 400 ml Balance 400 ml Exam Constitutional: alert, oriented, well developed Psych: nl mood/affect, no complaints Eyes: EOMI, PERRL, nl conjunctiva, nl lids, nl sclera Neck: non-tender, supple Respiratory: clear to auscultation, normal air movement Cardiovascular: nl pulses, regular rate and rhythm Gastrointestinal: nl liver, spleen, non-tender, soft Musculoskeletal: nl extremities to inspection, nl gait and stance Results Result Diagram: 03/28/1740203/28/17 040 Results 24 hrs Laboratory Tests Test 03/29/17 05:59 White Blood Count Pending Red Blood Count Pending Hemoglobin Pending Hematocrit Pending Mean Corpuscular Volume Pending Mean Corpuscular Hemoglobin Pending Mean Corpuscular Hemoglobin Concent Pending Red Cell Distribution Width Pending Platelet Count Pending Mean Platelet Volume Pending Medications Medications Current Medications Miscellaneous Information 1 ea NOTE XX ; Start 01/17/17 at 10:00 Glucose (Glutose) 15 gm Q15M PRN PO DECREASED GLUCOSE; Start 01/17/17 at 10:00 Glucose (Glutose) 22.5 gm Q15M PRN PO DECREASED GLUCOSE; Start 01/17/17 at 10: 00 Dextrose (D50w Syringe) 25 ml Q15M PRN IV DECREASED GLUCOSE; Start 01/17/17 at 10:00 Dextrose (D50w Syringe) 50 ml Q15M PRN IV DECREASED GLUCOSE; Start 01/17/17 at 10:00 Glucagon (Glucagen) 1 mg Q15M PRN IM DECREASED GLUCOSE; Start 01/17/17 at 10:00 Glucose (Glutose) 15 gm Q15M PRN BUCCAL DECREASED GLUCOSE; Start 01/17/17 at 10 :00 Collagenase (Santyl) 1 applic DAILY TOP Last administered on 03/28/17 09:04; Admin Dose 1 APPLIC; Start 01/17/17 at 21:00 IV Flush (NS 10 ml) 10 ml PRN PRN IV IV PROTOCOL Last administered on 21:45; Admin Dose 10 ML; Start 01/22/17 at 12:00 Miscellaneous Information (Pending Santyl Order For Wound Care) This patient dunaway... PRN PRN XX WOUND CARE; Start 01/24/17 at 07:30 Bisacodyl (Dulcolax Supp) 10 mg DAILY PRN [place] CONSTIPATION Last administered on 02/24/17 15:02; Admin Dose 10 MG; Start 01/25/17 at 16:30 Acetaminophen (Tylenol Liquid) 650 mg Q4H PRN NGT PAIN AND OR ELEVATED TEMP Last administered on 03/28/17 20:24; Admin Dose 650 MG; Start 01/26/17 at 09:00 Metoprolol Tartrate (Lopressor) 2.5 mg Q4H PRN IV HR > 110 Last administered on 02/23/17 03:58; Admin Dose 2.5 MG; Start 01/26/17 at 15:00 Nystatin (Nystatin Powder) 1 applic BID TOP Last administered on 03/28/17 21: 21; Admin Dose 1 APPLIC; Start 02/04/17 at 12:00 Eye Lubricant (Artificial Tears Oph) 2 drop Q6H PRN BOTH EYES DRY EYES Last administered on 03/16/17 20:33; Admin Dose 2 DROP; Start 02/13/17 at 15:30 Nystatin (Nystatin Susp) 5 ml QID GTB Last administered on 03/28/17 21:20; Admin Dose 5 ML; Start 02/18/17 at 08:00 Lansoprazole (Prevacid) 30 mg BID@06,18 GTB Last administered on 03/29/17 06: 07; Admin Dose 30 MG; Start 02/18/17 at 18:00 Apixaban (Eliquis) 5 mg BID GTB Last administered on 03/28/17 21:20; Admin Dose 5 MG; Start 02/22/17 at 22:00 Digoxin (Digoxin) 0.125 mg DAILY@13 PO Last administered on 03/28/17 14:57; Admin Dose 0.125 MG; Start 03/12/17 at 13:00 Atenolol (Tenormin) 12.5 mg BID PO Last administered on 03/28/17 21:20; Admin Dose 12.5 MG; Start 03/12/17 at 21:00 Midodrine 10 mg 10 mg Q8 PRN GTB BLOOD PRESSURE SUPPORT Last administered on 04:26; Admin Dose 10 MG; Start 03/18/17 at 19:30 Levofloxacin/ Dextrose 100 ml @ 50 mls/hr Q24H IVPB Last administered on 21:20; Admin Dose 50 MLS/HR; Start 03/22/17 at 22:00 Vancomycin HCl (Vancocin) 100 ml @ 100 mls/hr Q12H IVPB Last administered on 06:07; Admin Dose 100 MLS/HR; Start 03/23/17 at 17:00 SHELBY SHUKLA MD Mar 29, 2017 06:24
[2017-03-29 07:17] LABS: CALCIUM 9.9 mg/dl (8.4-10.2); CREATININE 0.8 mg/dl (0.44-1.00); POTASSIUM 4.2 mmol/L (3.5-5.1)
[2017-03-29] MEDS: APIXABAN 5 MG TABLET GTB SCH ×2 (08:49→21:09)
[2017-03-29] MEDS: ATENOLOL 25 MG TAB PO SCH ×2 (08:49→21:10)
[2017-03-29] MEDS: NYSTATIN 30 GM POWDER BTL TOP SCH ×2 (08:49→21:09)
[2017-03-29] MEDS: NYSTATIN SUSP 5 ML CUP GTB SCH ×4 (08:50→21:09)
[2017-03-29] MEDS: COLLAGENASE 30 GM TUBE TOP SCH (08:50)
[2017-03-29] MEDS: ACETAMINOPHEN 650MG/20.3ML CUP NGT PRN ×2 (08:50→16:32)
--- NOTE | 2017-03-29 10:01 | CONS ---
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 coli, received levo - s/p UTI due to proteus - dysphagia s/p PEG - diffuse moderate degree of gastritis s/p EGD 02/15/2017 - h/o gastritis due to H. pylori based on pathology 02/15/2017, on clarithromycin based regimen (02/20/2017-), [id number] - h/o bleeding from GT site, and blood clots in tube feed - resolved - recurrent CVA - h/o possible aspiration, improved - encephalopathy due to CVA. CSF from 01/19/2017: WBC=3, RBC=0, glu 53, pro=61, CSF ([place] serology negative, HSV negative, cocci CF negative, encephalitis meningitis panel could not be done due to a lack of sample), serum ([place] PCR negative, crypto antigen negative, cocci CF negative, histo CF negative). my order of crypto in CSF was cancelled and no reason given - h/o bacteremia due to CoNS, probable contaminant. Transthoracic echo on 2016 did not reveal valvular vegetation - h/o MARIELA - improved - A fib - h/o DVT - h/o LLE ischemia s/p thrombolysis and subsequent open thrombectomy and fasciotomy at [facility] 09/2015 - h/o thrombus on DEBBIE per records from [facility], [facility] - h/o funguria - Lees catheter was changed 02/11/2017 and subsequently removed recommendations: - pending results: blood cultures x2 sets from 03/26/2017 - we recommend DEBBIE if able; if unable, I recommend empiric endocarditis treatment because Pt had persistent, high grade enterococci bacteremia and h/o rheumatic disease of the mitral valve. I recommend ampicillin and synergistic gentamicin (03/29/2017-). Monitor GFR closely - d/c vancomycin and levofloxacin Problems: Consultation Date/Type/Reason Admit Date/Time Jan 16, 2017 at 15:19 Initial Consult Date 01/17/17 Type of Consultation: ID Referring Provider: RADCHENKO,LAWRENCE 24 HR Interval Summary Subjective hx not possible: pt non-verbal, other (sobbing) Exam/Review of Systems Vital Signs Vitals Vital Signs Date Time Temp Pulse Resp B/P Pulse Ox O2 Delivery O2 Flow Rate FiO2 03/29/17 08:00 97 03/29/17 07:46 16 98 21 03/29/17 07:07 97.7 116/55 Intake and Output 03/28/17 03/28/17 03/29/17 15:00 23:00 07:00 Intake Total 500 ml 1100 ml Balance 500 ml 1100 ml Exam Constitutional: distress (sobbing) Psych: other (sobbing, not talking however) Head: atraumatic, normocephalic Eyes: nl conjunctiva, nl lids ENMT: nl external ears & nose, nl nasal mucosa & septum Neck: supple Respiratory: clear to auscultation, normal air movement Cardiovascular: nl pulses, regular rate and rhythm Gastrointestinal: non-tender, soft Musculoskeletal: nl extremities to inspection Extremities: normal pulses Neurological: confused, lethargic Skin: No rash or lesions Results Result Diagram: 03/29/17 0559 03/29/17 0559 Results 24 hrs Laboratory Tests Test 03/29/17 05:59 White Blood Count 12.3 H Red Blood Count 3.83 L Hemoglobin 10.1 L Hematocrit 32.8 L Mean Corpuscular Volume 85.6 Mean Corpuscular Hemoglobin 26.4 L Mean Corpuscular Hemoglobin Concent 30.8 L Red Cell Distribution Width 16.5 H Platelet Count 291 # Mean Platelet Volume 12.3 H Neutrophils % 78.1 H Lymphocytes % 11.6 L Monocytes % 6.3 Eosinophils % 1.3 Basophils % 0.7 Nucleated Red Blood Cells % 0.0 Neutrophils # 9.6 H Lymphocytes # 1.4 Monocytes # 0.8 Eosinophils # 0.2 Basophils # 0.1 Nucleated Red Blood Cells # 0.0 Sodium Level 140 Potassium Level 4.2 Chloride Level 108 Carbon Dioxide Level 24 Anion Gap 12 Blood Urea Nitrogen 19 Creatinine 0.80 Glucose Level 127 Calcium Level 9.9 Medications Medications Current Medications Miscellaneous Information 1 ea NOTE XX ; Start 01/17/17 at 10:00 Glucose (Glutose) 15 gm Q15M PRN PO DECREASED GLUCOSE; Start 01/17/17 at 10:00 Glucose (Glutose) 22.5 gm Q15M PRN PO DECREASED GLUCOSE; Start 01/17/17 at 10: 00 Dextrose (D50w Syringe) 25 ml Q15M PRN IV DECREASED GLUCOSE; Start 01/17/17 at 10:00 Dextrose (D50w Syringe) 50 ml Q15M PRN IV DECREASED GLUCOSE; Start 01/17/17 at 10:00 Glucagon (Glucagen) 1 mg Q15M PRN IM DECREASED GLUCOSE; Start 01/17/17 at 10:00 Glucose (Glutose) 15 gm Q15M PRN BUCCAL DECREASED GLUCOSE; Start 01/17/17 at 10 :00 Collagenase (Santyl) 1 applic DAILY TOP Last administered on 03/29/17 08:50; Admin Dose 1 APPLIC; Start 01/17/17 at 21:00 IV Flush (NS 10 ml) 10 ml PRN PRN IV IV PROTOCOL Last administered on 21:45; Admin Dose 10 ML; Start 01/22/17 at 12:00 Miscellaneous Information (Pending Santyl Order For Wound Care) This patient dunaway... PRN PRN XX WOUND CARE; Start 01/24/17 at 07:30 Bisacodyl (Dulcolax Supp) 10 mg DAILY PRN [place] CONSTIPATION Last administered on 02/24/17 15:02; Admin Dose 10 MG; Start 01/25/17 at 16:30 Acetaminophen (Tylenol Liquid) 650 mg Q4H PRN NGT PAIN AND OR ELEVATED TEMP Last administered on 03/29/17 08:50; Admin Dose 650 MG; Start 01/26/17 at 09:00 Metoprolol Tartrate (Lopressor) 2.5 mg Q4H PRN IV HR > 110 Last administered on 02/23/17 03:58; Admin Dose 2.5 MG; Start 01/26/17 at 15:00 Nystatin (Nystatin Powder) 1 applic BID TOP Last administered on 03/29/17 08: 49; Admin Dose 1 APPLIC; Start 02/04/17 at 12:00 Eye Lubricant (Artificial Tears Oph) 2 drop Q6H PRN BOTH EYES DRY EYES Last administered on 03/16/17 20:33; Admin Dose 2 DROP; Start 02/13/17 at 15:30 Nystatin (Nystatin Susp) 5 ml QID GTB Last administered on 03/29/17 08:50; Admin Dose 5 ML; Start 02/18/17 at 08:00 Lansoprazole (Prevacid) 30 mg BID@06,18 GTB Last administered on 03/29/17 06: 07; Admin Dose 30 MG; Start 02/18/17 at 18:00 Apixaban (Eliquis) 5 mg BID GTB Last administered on 03/29/17 08:49; Admin Dose 5 MG; Start 02/22/17 at 22:00 Digoxin (Digoxin) 0.125 mg DAILY@13 PO Last administered on 03/28/17 14:57; Admin Dose 0.125 MG; Start 03/12/17 at 13:00 Atenolol (Tenormin) 12.5 mg BID PO Last administered on 03/29/17 08:49; Admin Dose 12.5 MG; Start 03/12/17 at 21:00 Midodrine 10 mg 10 mg Q8 PRN GTB BLOOD PRESSURE SUPPORT Last administered on 04:26; Admin Dose 10 MG; Start 03/18/17 at 19:30 Levofloxacin/ Dextrose 100 ml @ 50 mls/hr Q24H IVPB Last administered on 21:20; Admin Dose 50 MLS/HR; Start 03/22/17 at 22:00 Vancomycin HCl (Vancocin) 100 ml @ 100 mls/hr Q12H IVPB Last administered on 06:07; Admin Dose 100 MLS/HR; Start 03/23/17 at 17:00 TYE STYLES M.D. Mar 29, 2017 10:01
[2017-03-29] MEDS ORDERED: GENTAMICIN IV PER PHARMACY XX SCH (10:30)
[2017-03-29] MEDS: AMPICILLIN 2 GM/NS (PMX) 100 ML IVPB SCH ×3 (11:53→21:10)
--- NOTE | 2017-03-29 12:15 | CONS ---
Date/Time of Note Date/Time of Note DATE: 03/29/17 TIME: 12:14 Assessment/Plan Assessment/Plan Chief Complaint/Hosp Course IMP: 1. AF-mainly rate controlled/Trop negative x 3. Had pause x 3.7 seconds 01/30 on standing IVP BB. Now back in tele 2.Hypotension-on midodrine 3.encephalopathy/ams-slowly improving 4.coagulopathy-now on eliquis 5. Acute Renal failure-Now resolved 6.Leukocytosis 7. Cardiomyopathy-EF 45% 8. Cephalic vein thrombosis 9. Dysphagia s/p PEG 10. H Pylori 11.Bacteremia-recurrent. s/p repeat TTE with no defiinite vegetations but thickening of mitral valve appararatus(secondary to MS) and thus cannot completely rule out vegetations Recc: -Tele -serial ecg's -Cont. Eliquis -Continue low dose BB as tolerated only with atenolol -Continue abx's -Follow MS closely which has had some significant improvement -Continue midodrine for low BP as necessary -IVF bolus -Continue PPI -Continue PO digoxin -S/P repeat TTE with no definite vegetaions but cannot completely rule out and thus will discuss DEBBIE with family as reccomended pe ID as treccomended but have concern for possible aspiration and/or general worsening of resp status durinig procedure as patient with poor overall MS/dysphagia -No definite indication for PPM at this time Problems: Consultation Date/Type/Reason Admit Date/Time Jan 16, 2017 at 15:19 Initial Consult Date 01/17/17 Type of Consultation: cardiology Reason for Consultation bacteremia/AF Referring Provider: LAWRENCE PICKERING Exam/Review of Systems Vital Signs Vitals Vital Signs Date Time Temp Pulse Resp B/P Pulse Ox O2 Delivery O2 Flow Rate FiO2 03/29/17 12:00 96 03/29/17 11:52 97.5 20 135/65 98 03/29/17 07:46 21 Intake and Output 03/28/17 03/28/17 03/29/17 15:00 23:00 07:00 Intake Total 500 ml 1100 ml Balance 500 ml 1100 ml Exam Review of Systems: CONSTITUTIONAL: No fevers, chills. PULMONARY: No sob CARDIOVASCULAR: No chest pain/palpitations GASTROINTESTINAL: No nausea/vomiting. GENITOURINARY: No hematuria/dysuria. MUSCULOSKELETAL: No myagias/arthalgias. PSYCHIATRIC: The patient denies depression. NEUROLOGIC: encephalopathy Constitutional: alert Psych: confusion, no complaints Neck: jvd (9 cm water), supple Respiratory: diminished breath sounds (at bases/B) Cardiovascular: irregular rhythm Gastrointestinal: non-tender, soft Musculoskeletal: muscle tone (normal) Extremities: edema (none) Neurological: confused Results Result Diagram: 03/29/17 0559 03/29/17 0559 Results 24 hrs Laboratory Tests Test 03/29/17 05:59 White Blood Count 12.3 H Red Blood Count 3.83 L Hemoglobin 10.1 L Hematocrit 32.8 L Mean Corpuscular Volume 85.6 Mean Corpuscular Hemoglobin 26.4 L Mean Corpuscular Hemoglobin Concent 30.8 L Red Cell Distribution Width 16.5 H Platelet Count 291 # Mean Platelet Volume 12.3 H Neutrophils % 78.1 H Lymphocytes % 11.6 L Monocytes % 6.3 Eosinophils % 1.3 Basophils % 0.7 Nucleated Red Blood Cells % 0.0 Neutrophils # 9.6 H Lymphocytes # 1.4 Monocytes # 0.8 Eosinophils # 0.2 Basophils # 0.1 Nucleated Red Blood Cells # 0.0 Sodium Level 140 Potassium Level 4.2 Chloride Level 108 Carbon Dioxide Level 24 Anion Gap 12 Blood Urea Nitrogen 19 Creatinine 0.80 Glucose Level 127 Calcium Level 9.9 Medications Medications Current Medications Miscellaneous Information 1 ea NOTE XX ; Start 01/17/17 at 10:00 Glucose (Glutose) 15 gm Q15M PRN PO DECREASED GLUCOSE; Start 01/17/17 at 10:00 Glucose (Glutose) 22.5 gm Q15M PRN PO DECREASED GLUCOSE; Start 01/17/17 at 10: 00 Dextrose (D50w Syringe) 25 ml Q15M PRN IV DECREASED GLUCOSE; Start 01/17/17 at 10:00 Dextrose (D50w Syringe) 50 ml Q15M PRN IV DECREASED GLUCOSE; Start 01/17/17 at 10:00 Glucagon (Glucagen) 1 mg Q15M PRN IM DECREASED GLUCOSE; Start 01/17/17 at 10:00 Glucose (Glutose) 15 gm Q15M PRN BUCCAL DECREASED GLUCOSE; Start 01/17/17 at 10 :00 Collagenase (Santyl) 1 applic DAILY TOP Last administered on 03/29/17t 08:50; Admin Dose 1 APPLIC; Start 01/17/17 at 21:00 IV Flush (NS 10 ml) 10 ml PRN PRN IV IV PROTOCOL Last administered on 21:45; Admin Dose 10 ML; Start 01/22/17 at 12:00 Miscellaneous Information (Pending Santyl Order For Wound Care) This patient dunaway... PRN PRN XX WOUND CARE; Start 01/24/17 at 07:30 Bisacodyl (Dulcolax Supp) 10 mg DAILY PRN [place] CONSTIPATION Last administered on 02/24/17 15:02; Admin Dose 10 MG; Start 01/25/17 at 16:30 Acetaminophen (Tylenol Liquid) 650 mg Q4H PRN NGT PAIN AND OR ELEVATED TEMP Last administered on 03/29/17 08:50; Admin Dose 650 MG; Start 01/26/17 at 09:00 Metoprolol Tartrate (Lopressor) 2.5 mg Q4H PRN IV HR > 110 Last administered on 02/23/17 03:58; Admin Dose 2.5 MG; Start 01/26/17 at 15:00 Nystatin (Nystatin Powder) 1 applic BID TOP Last administered on 03/29/17 08: 49; Admin Dose 1 APPLIC; Start 02/04/17 at 12:00 Eye Lubricant (Artificial Tears Oph) 2 drop Q6H PRN BOTH EYES DRY EYES Last administered on 03/16/17 20:33; Admin Dose 2 DROP; Start 02/13/17 at 15:30 Nystatin (Nystatin Susp) 5 ml QID GTB Last administered on 03/29/17 08:50; Admin Dose 5 ML; Start 02/18/17 at 08:00 Lansoprazole (Prevacid) 30 mg BID@06,18 GTB Last administered on 03/29/17 06: 07; Admin Dose 30 MG; Start 02/18/17 at 18:00 Apixaban (Eliquis) 5 mg BID GTB Last administered on 03/29/17 08:49; Admin Dose 5 MG; Start 02/22/17 at 22:00 Digoxin (Digoxin) 0.125 mg DAILY@13 PO Last administered on 03/28/17 14:57; Admin Dose 0.125 MG; Start 03/12/17 at 13:00 Atenolol (Tenormin) 12.5 mg BID PO Last administered on 03/29/17 08:49; Admin Dose 12.5 MG; Start 03/12/17 at 21:00 Midodrine 10 mg 10 mg Q8 PRN GTB BLOOD PRESSURE SUPPORT Last administered on 04:26; Admin Dose 10 MG; Start 03/18/17 at 19:30 Ampicillin (Ampicillin 2 Gm/ NS (Pmx)) 100 ml @ 100 mls/hr Q4 IVPB Last administered on 03/29/17 11:53; Admin Dose 100 MLS/HR; Start 03/29/17 at 12:00 Gentamicin Sulfate (Gentamicin Iv Per Pharmacy) GENTAMICIN PER PHARM... NOTE XX ; Start 03/29/17 at 10:30 MINOO REY Mar 29, 2017 12:15
[2017-03-29] MEDS: DIGOXIN 0.125 MG TAB PO SCH (12:56)
[2017-03-29] MEDS: GENTAMICIN 100 MG/50 ML NS IVPB SCH (13:12)
--- NOTE | 2017-03-29 17:22 | PN ---
Date/Time of Note Date/Time of Note DATE: 03/29/17 TIME: 17:21 Assessment/Plan VTE Prophylaxis VTE Prophylaxis Intervention: SCD's Lines/Catheters IV C[facility]ter Type (from [facility]): Peripheral IV Central line still needed: Yes Urinary Cath still in place: No Assessment/Plan Chief Complaint/Hosp Course Patient remains hemodynamically stable, afebrile. Patient condition and plan of care discussed with patient's son at the bedside. Assessment/Plan - Enterococcus bacteremia, PICC line DC'd. No apparent vegetation per TTE. Continue antibiotics per ID. - Bacteremia and recurrent UTI versus colonization. Dr. Hiro villeda is following in ID consultation. - Bilateral thalamic infarctions. Dr. Ramirez is following in neurology consultation. - Gastritis due to H. pylori, status post EGD, completed therapy per H. pylori eradication. - Dysphagia, status post G-tube placement by Dr. Garcia. - Atrial fibrillation with rapid ventricular response. Dr. Armenta is following and cardiology consultation. Continue Eliquis. Digoxin and atenolol. - Thrombosis of the bilateral cephalic veins. - Acute kidney injury, resolved. - History of CVA - History of hyperlipidemia Further recommendations based on clinical course. Plan of care discussed with Dr. Valdovinos. Problems: Exam/Review of Systems Vital Signs Vitals Vital Signs Date Time Temp Pulse Resp B/P Pulse Ox O2 Delivery O2 Flow Rate FiO2 03/29/17 16:00 88 03/29/17 15:44 97.5 20 114/64 100 03/29/17 13:20 21 Intake and Output 03/28/17 03/28/17 03/29/17 15:00 23:00 07:00 Intake Total 500 ml 1100 ml Balance 500 ml 1100 ml Exam Constitutional: awake Respiratory: normal air movement Cardiovascular: irregular rhythm Gastrointestinal: non-tender, other (G-tube), soft Genitourinary - Female: other (Lees catheter) Musculoskeletal: muscle weakness Neurological: focal weakness Results Result Diagram: 03/29/17 0559 03/29/17 0559 Results 24 hrs Laboratory Tests Test 03/29/17 05:59 White Blood Count 12.3 H Red Blood Count 3.83 L Hemoglobin 10.1 L Hematocrit 32.8 L Mean Corpuscular Volume 85.6 Mean Corpuscular Hemoglobin 26.4 L Mean Corpuscular Hemoglobin Concent 30.8 L Red Cell Distribution Width 16.5 H Platelet Count 291 # Mean Platelet Volume 12.3 H Neutrophils % 78.1 H Lymphocytes % 11.6 L Monocytes % 6.3 Eosinophils % 1.3 Basophils % 0.7 Nucleated Red Blood Cells % 0.0 Neutrophils # 9.6 H Lymphocytes # 1.4 Monocytes # 0.8 Eosinophils # 0.2 Basophils # 0.1 Nucleated Red Blood Cells # 0.0 Sodium Level 140 Potassium Level 4.2 Chloride Level 108 Carbon Dioxide Level 24 Anion Gap 12 Blood Urea Nitrogen 19 Creatinine 0.80 Glucose Level 127 Calcium Level 9.9 Medications Medications Current Medications Miscellaneous Information 1 ea NOTE XX ; Start 01/17/17 at 10:00 Glucose (Glutose) 15 gm Q15M PRN PO DECREASED GLUCOSE; Start 01/17/17 at 10:00 Glucose (Glutose) 22.5 gm Q15M PRN PO DECREASED GLUCOSE; Start 01/17/17 at 10: 00 Dextrose (D50w Syringe) 25 ml Q15M PRN IV DECREASED GLUCOSE; Start 01/17/17 at 10:00 Dextrose (D50w Syringe) 50 ml Q15M PRN IV DECREASED GLUCOSE; Start 01/17/17 at 10:00 Glucagon (Glucagen) 1 mg Q15M PRN IM DECREASED GLUCOSE; Start 01/17/17 at 10:00 Glucose (Glutose) 15 gm Q15M PRN BUCCAL DECREASED GLUCOSE; Start 01/17/17 at 10 :00 Collagenase (Santyl) 1 applic DAILY TOP Last administered on 03/29/17 08:50; Admin Dose 1 APPLIC; Start 01/17/17 at 21:00 IV Flush (NS 10 ml) 10 ml PRN PRN IV IV PROTOCOL Last administered on 21:45; Admin Dose 10 ML; Start 01/22/17 at 12:00 Miscellaneous Information (Pending Santyl Order For Wound Care) This patient dunaway... PRN PRN XX WOUND CARE; Start 01/24/17 at 07:30 Bisacodyl (Dulcolax Supp) 10 mg DAILY PRN [place] CONSTIPATION Last administered on 02/24/17 15:02; Admin Dose 10 MG; Start 01/25/17 at 16:30 Acetaminophen (Tylenol Liquid) 650 mg Q4H PRN NGT PAIN AND OR ELEVATED TEMP Last administered on 03/29/17 16:32; Admin Dose 650 MG; Start 01/26/17 at 09:00 Metoprolol Tartrate (Lopressor) 2.5 mg Q4H PRN IV HR > 110 Last administered on 02/23/17 03:58; Admin Dose 2.5 MG; Start 01/26/17 at 15:00 Nystatin (Nystatin Powder) 1 applic BID TOP Last administered on 03/29/17 08: 49; Admin Dose 1 APPLIC; Start 02/04/17 at 12:00 Eye Lubricant (Artificial Tears Oph) 2 drop Q6H PRN BOTH EYES DRY EYES Last administered on 03/16/17 20:33; Admin Dose 2 DROP; Start 02/13/17 at 15:30 Nystatin (Nystatin Susp) 5 ml QID GTB Last administered on 03/29/17 16:31; Admin Dose 5 ML; Start 02/18/17 at 08:00 Lansoprazole (Prevacid) 30 mg BID@06,18 GTB Last administered on 03/29/17 06: 07; Admin Dose 30 MG; Start 02/18/17 at 18:00 Apixaban (Eliquis) 5 mg BID GTB Last administered on 03/29/17 08:49; Admin Dose 5 MG; Start 02/22/17 at 22:00 Digoxin (Digoxin) 0.125 mg DAILY@13 PO Last administered on 03/29/17 12:56; Admin Dose 0.125 MG; Start 03/12/17 at 13:00 Atenolol (Tenormin) 12.5 mg BID PO Last administered on 03/29/17 08:49; Admin Dose 12.5 MG; Start 03/12/17 at 21:00 Midodrine 10 mg 10 mg Q8 PRN GTB BLOOD PRESSURE SUPPORT Last administered on 04:26; Admin Dose 10 MG; Start 03/18/17 at 19:30 Ampicillin (Ampicillin 2 Gm/ NS (Pmx)) 100 ml @ 100 mls/hr Q4 IVPB Last administered on 03/29/17 16:31; Admin Dose 100 MLS/HR; Start 03/29/17 at 12:00 Gentamicin Sulfate (Gentamicin Iv Per Pharmacy) GENTAMICIN PER PHARM... NOTE XX ; Start 03/29/17 at 10:30 Miscellaneous Information (*Rx Drug Level Order Reminder*) 1 ONCE ONCE XX ; Start 03/30/17 at 12:00; Stop 03/30/17 at 12:01 Miscellaneous Information (*Rx Drug Level Order Reminder*) 1 ONCE ONCE XX ; Start 03/30/17 at 13:00; Stop 03/30/17 at 13:01 Miscellaneous Information (*Rx Drug Level Order Reminder*) 1 ONCE ONCE XX ; Start 03/30/17 at 14:00; Stop 03/30/17 at 14:01 LAWRENCE PICKERING Mar 29, 2017 17:22
[2017-03-30] VITALS (13 sets, daily range): BP systolic 90–139; BP diastolic 53–72; PULSE 60–91; RESP 18–21
[2017-03-30] MEDS: AMPICILLIN 2 GM/NS (PMX) 100 ML IVPB SCH ×6 (01:09→20:59)
[2017-03-30] MEDS: GENTAMICIN 100 MG/50 ML NS IVPB SCH (01:09)
[2017-03-30] MEDS: LEVALBUTEROL (NEB) 0.63 MG/3 ML AMP HHN SCH ×4 (01:23→20:28)
[2017-03-30 06:04] LABS: BASOPHIL # 0.1 10^3/ul (0.0-0.1); BASOPHILS % 0.7 % (0.0-2.0); EOSINOPHILS # 0.2 10^3/ul (0.0-0.5); EOSINOPHILS % 1.5 % (0.0-7.0); HEMOGLOBIN 9.7 g/dl (12.0-16.0); LYMPHOCYTES # 1.1 10^3/ul (0.8-2.9); LYMPHOCYTES % 9.9 % (15.0-51.0); MEAN CORPUSCULAR HEMOGLOBIN 27.6 pg (29.0-33.0); MEAN CORPUSCULAR HGB CONC 32.3 g/dl (32.0-37.0); MEAN CORPUSCULAR VOLUME 85.5 fl (82.0-101.0); MEAN PLATELET VOLUME 11.4 fl (7.4-10.4); MONOCYTE # 0.5 10^3/ul (0.3-0.9); MONOCYTES % 4.9 % (0.0-11.0); NEUTROPHIL # 8.7 10^3/ul (1.6-7.5); NEUTROPHILS % 81.4 % (39.0-77.0); PLATELET COUNT 411 10^3/UL (140-415); RED BLOOD COUNT 3.51 10^6/ul (4.20-5.40); RED CELL DISTRIBUTION WIDTH 16.3 % (11.5-14.5); WHITE BLOOD COUNT 10.6 10^3/ul (4.8-10.8)
[2017-03-30] MEDS: LANSOPRAZOLE 30 MG CAP GTB SCH ×2 (06:36→17:15)
[2017-03-30 07:03] LABS: CREATININE 0.73 mg/dl (0.44-1.00)
[2017-03-30 07:08] LABS: CALCIUM 9.4 mg/dl (8.4-10.2); CREATININE 0.77 mg/dl (0.44-1.00); POTASSIUM 3.8 mmol/L (3.5-5.1)
[2017-03-30] MEDS: NYSTATIN SUSP 5 ML CUP GTB SCH ×4 (08:33→20:58)
[2017-03-30] MEDS: COLLAGENASE 30 GM TUBE TOP SCH (08:34)
[2017-03-30] MEDS: APIXABAN 5 MG TABLET GTB SCH ×2 (08:34→20:59)
[2017-03-30] MEDS: NYSTATIN 30 GM POWDER BTL TOP SCH ×2 (08:35→20:59)
--- NOTE | 2017-03-30 08:43 | CONS ---
Date/Time of Note Date/Time of Note DATE: 03/30/17 TIME: 08:39 Assessment/Plan Assessment/Plan Additional Assessment/Plan 1. AF-mainly rate controlled - No Class i indication for pacer now as HR is stable. Now rate controlled. Will monitor now. 2.Hypotension-on midodrine - better now - HAD EPISODES OF LOW BP, resolved - better now. 3.encephalopathy/ams-slowly improving - marked REMARKABLE improvement 4.coagulopathy-now on eliquis- no beed. 5. Acute Renal failure-Now resolved - good urine output now 6.Leukocytosis - on anti-Bx 7. Cardiomyopathy-EF 45% 8. Cephalic vein thrombosis 9. Dysphagia s/p PEG 10. H Pylori Consultation Date/Type/Reason Admit Date/Time Jan 16, 2017 at 15:19 Initial Consult Date 01/26/17 Type of Consultation: cardiology Referring Provider: LAWRENCE PICKERING 24 HR Interval Summary Free Text/Dictation No acute events - BP in good range - no CP now, doubt ischemia. ROS: No fever, no chills, no nausea, no vomiting, no diarrhea/constipation No recent weight changes No chest pain, no PND, no orthopnea No dizziness, blurred vision No thirst, no heat or cold intolerance Exam/Review of Systems Vital Signs Vitals Vital Signs Date Time Temp Pulse Resp B/P Pulse Ox O2 Delivery O2 Flow Rate FiO2 03/30/17 08:29 91 108/53 03/30/17 07:51 98.4 20 99 03/30/17 07:30 21 Intake and Output 03/29/17 03/29/17 03/30/17 15:00 23:00 07:00 Intake Total 150 ml 1350 ml 1050 ml Balance 150 ml 1350 ml 1050 ml Exam General: WN/WD/NAD, AOx 2-3 more alert HEENT: Unicetric/atraumatic/EOMI (follows commands) NECK: JVD elevated, no thyromegaly Lymph: no lymphadenopathy HEART: irregular with no S3, II/ systolic murmur at apex LUNGS: Coarse sounds ABD: soft, NT, ND, +BS : Intact Neuro: s/p CVA SKIN: chronic changes EXT: trace edema Results Result Diagram: 03/30/17 0535 03/30/17 0535 Results 24 hrs Laboratory Tests Test 03/30/17 05:35 White Blood Count 10.6 Red Blood Count 3.51 L Hemoglobin 9.7 L Hematocrit 30.0 L Mean Corpuscular Volume 85.5 Mean Corpuscular Hemoglobin 27.6 L Mean Corpuscular Hemoglobin Concent 32.3 Red Cell Distribution Width 16.3 H Platelet Count 411 # Mean Platelet Volume 11.4 H Neutrophils % 81.4 H Lymphocytes % 9.9 L Monocytes % 4.9 Eosinophils % 1.5 Basophils % 0.7 Nucleated Red Blood Cells % 0.0 Neutrophils # 8.7 H Lymphocytes # 1.1 Monocytes # 0.5 Eosinophils # 0.2 Basophils # 0.1 Nucleated Red Blood Cells # 0.0 Sodium Level 139 Potassium Level 3.8 Chloride Level 108 Carbon Dioxide Level 25 Anion Gap 10 Blood Urea Nitrogen 21 H Creatinine 0.77 Glucose Level 143 Calcium Level 9.4 Medications Medications Current Medications Miscellaneous Information 1 ea NOTE XX ; Start 01/17/17 at 10:00 Glucose (Glutose) 15 gm Q15M PRN PO DECREASED GLUCOSE; Start 01/17/17 at 10:00 Glucose (Glutose) 22.5 gm Q15M PRN PO DECREASED GLUCOSE; Start 01/17/17 at 10: 00 Dextrose (D50w Syringe) 25 ml Q15M PRN IV DECREASED GLUCOSE; Start 01/17/17 at 10:00 Dextrose (D50w Syringe) 50 ml Q15M PRN IV DECREASED GLUCOSE; Start 01/17/17 at 10:00 Glucagon (Glucagen) 1 mg Q15M PRN IM DECREASED GLUCOSE; Start 01/17/17 at 10:00 Glucose (Glutose) 15 gm Q15M PRN BUCCAL DECREASED GLUCOSE; Start 01/17/17 at 10 :00 Collagenase (Santyl) 1 applic DAILY TOP Last administered on 03/30/17 08:34; Admin Dose 1 APPLIC; Start 01/17/17 at 21:00 IV Flush (NS 10 ml) 10 ml PRN PRN IV IV PROTOCOL Last administered on 21:45; Admin Dose 10 ML; Start 01/22/17 at 12:00 Miscellaneous Information (Pending Santyl Order For Wound Care) This patient dunaway... PRN PRN XX WOUND CARE; Start 01/24/17 at 07:30 Bisacodyl (Dulcolax Supp) 10 mg DAILY PRN [place] CONSTIPATION Last administered on 02/24/17 15:02; Admin Dose 10 MG; Start 01/25/17 at 16:30 Acetaminophen (Tylenol Liquid) 650 mg Q4H PRN NGT PAIN AND OR ELEVATED TEMP Last administered on 03/29/17 16:32; Admin Dose 650 MG; Start 01/26/17 at 09:00 Metoprolol Tartrate (Lopressor) 2.5 mg Q4H PRN IV HR > 110 Last administered on 02/23/17 03:58; Admin Dose 2.5 MG; Start 01/26/17 at 15:00 Nystatin (Nystatin Powder) 1 applic BID TOP Last administered on 03/30/17 08: 35; Admin Dose 1 APPLIC; Start 02/04/17 at 12:00 Eye Lubricant (Artificial Tears Oph) 2 drop Q6H PRN BOTH EYES DRY EYES Last administered on 03/16/17 20:33; Admin Dose 2 DROP; Start 02/13/17 at 15:30 Nystatin (Nystatin Susp) 5 ml QID GTB Last administered on 03/30/17 08:33; Admin Dose 5 ML; Start 02/18/17 at 08:00 Lansoprazole (Prevacid) 30 mg BID@06,18 GTB Last administered on 03/30/17 06: 36; Admin Dose 30 MG; Start 02/18/17 at 18:00 Apixaban (Eliquis) 5 mg BID GTB Last administered on 03/30/17 08:34; Admin Dose 5 MG; Start 02/22/17 at 22:00 Digoxin (Digoxin) 0.125 mg DAILY@13 PO Last administered on 03/29/17 12:56; Admin Dose 0.125 MG; Start 03/12/17 at 13:00 Atenolol (Tenormin) 12.5 mg BID PO Last administered on 03/29/17 21:10; Admin Dose 12.5 MG; Start 03/12/17 at 21:00 Midodrine 10 mg 10 mg Q8 PRN GTB BLOOD PRESSURE SUPPORT Last administered on 04:26; Admin Dose 10 MG; Start 03/18/17 at 19:30 Ampicillin (Ampicillin 2 Gm/ NS (Pmx)) 100 ml @ 100 mls/hr Q4 IVPB Last administered on 03/30/17t 08:33; Admin Dose 100 MLS/HR; Start 03/29/17 at 12:00 Gentamicin Sulfate (Gentamicin Iv Per Pharmacy) GENTAMICIN PER PHARM... NOTE XX ; Start 03/29/17 at 10:30 Miscellaneous Information (*Rx Drug Level Order Reminder*) 1 ONCE ONCE XX ; Start 03/30/17 at 12:00; Stop 03/30/17 at 12:01 Miscellaneous Information (*Rx Drug Level Order Reminder*) 1 ONCE ONCE XX ; Start 03/30/17 at 13:00; Stop 03/30/17 at 13:01 Miscellaneous Information (*Rx Drug Level Order Reminder*) 1 ONCE ONCE XX ; Start 03/30/17 at 14:00; Stop 03/30/17 at 14:01 YAJAIRA ALVAREZ MD Mar 30, 2017 08:43
--- NOTE | 2017-03-30 08:56 | CONS ---
Date/Time of Note Date/Time of Note DATE: 03/30/17 TIME: 08:54 Assessment/Plan Assessment/Plan Chief Complaint/Hosp Course - sepsis due to bacteremia and UTI - enterococcus bacteremia, tip of PICC grew Group B strep. Transthoracic echo on 01/16/2017, 03/25/2017 did not reveal valvular vegetation - h/o rheumatic heart disease (probable rheumatic, severe MS on transthoracic echo) - recurrent UTI due to E. coli, received levo - s/p UTI due to proteus - dysphagia s/p PEG - diffuse moderate degree of gastritis s/p EGD 02/15/2017 - h/o gastritis due to H. pylori based on pathology 02/15/2017, on clarithromycin based regimen (02/20/2017-), [id number] - h/o bleeding from GT site, and blood clots in tube feed - resolved - recurrent CVA - h/o possible aspiration, improved - encephalopathy due to CVA. CSF from 01/19/2017: WBC=3, RBC=0, glu 53, pro=61, CSF ([place] serology negative, HSV negative, cocci CF negative, encephalitis meningitis panel could not be done due to a lack of sample), serum ([place] PCR negative, crypto antigen negative, cocci CF negative, histo CF negative). my order of crypto in CSF was cancelled and no reason given - h/o bacteremia due to CoNS, probable contaminant. - h/o MARIELA - improved - A fib - h/o DVT - h/o LLE ischemia s/p thrombolysis and subsequent open thrombectomy and fasciotomy at [facility] 09/2015 - h/o thrombus on DEBBIE per records from [facility] - h/o funguria - Lees catheter was changed 02/11/2017 and subsequently removed recommendations: - reviewed Dr. Armenta's note. DEBBIE is a high risk for this Pt. In this case, I recommend empiric endocarditis treatment because Pt had persistent, high grade enterococci bacteremia and h/o rheumatic disease of the mitral valve. I recommend ampicillin and synergistic gentamicin (03/29/2017-). Monitor GFR closely. Pt took vancomycin and levofloxacin previously Problems: Consultation Date/Type/Reason Admit Date/Time Jan 16, 2017 at 15:19 Initial Consult Date 01/17/17 Type of Consultation: ID Referring Provider: LAWRENCE PICKERING 24 HR Interval Summary Subjective hx not possible: pt non-verbal Exam/Review of Systems Vital Signs Vitals Vital Signs Date Time Temp Pulse Resp B/P Pulse Ox O2 Delivery O2 Flow Rate FiO2 03/30/17 08:29 91 108/53 03/30/17 07:51 98.4 20 99 03/30/17 07:30 21 Intake and Output 03/29/17 03/29/17 03/30/17 15:00 23:00 07:00 Intake Total 150 ml 1350 ml 1050 ml Balance 150 ml 1350 ml 1050 ml Exam Constitutional: frail, non-verbal Psych: confusion Head: normocephalic Eyes: nl conjunctiva, nl lids, other (slightly paralyzed L eye) ENMT: nl external ears & nose Respiratory: diminished breath sounds Cardiovascular: murmurs/extra sounds (MCL, II/), nl pulses, regular rate and rhythm Gastrointestinal: non-tender, other (PEG), soft Musculoskeletal: nl extremities to inspection Extremities: edema (b/l LEs) Neurological: confused, lethargic Skin: nl turgor Results Result Diagram: 03/30/17 0535 03/30/17 0535 Results 24 hrs Laboratory Tests Test 03/30/17 05:35 White Blood Count 10.6 Red Blood Count 3.51 L Hemoglobin 9.7 L Hematocrit 30.0 L Mean Corpuscular Volume 85.5 Mean Corpuscular Hemoglobin 27.6 L Mean Corpuscular Hemoglobin Concent 32.3 Red Cell Distribution Width 16.3 H Platelet Count 411 # Mean Platelet Volume 11.4 H Neutrophils % 81.4 H Lymphocytes % 9.9 L Monocytes % 4.9 Eosinophils % 1.5 Basophils % 0.7 Nucleated Red Blood Cells % 0.0 Neutrophils # 8.7 H Lymphocytes # 1.1 Monocytes # 0.5 Eosinophils # 0.2 Basophils # 0.1 Nucleated Red Blood Cells # 0.0 Sodium Level 139 Potassium Level 3.8 Chloride Level 108 Carbon Dioxide Level 25 Anion Gap 10 Blood Urea Nitrogen 21 H Creatinine 0.77 Glucose Level 143 Calcium Level 9.4 Medications Medications Current Medications Miscellaneous Information 1 ea NOTE XX ; Start 01/17/17 at 10:00 Glucose (Glutose) 15 gm Q15M PRN PO DECREASED GLUCOSE; Start 01/17/17 at 10:00 Glucose (Glutose) 22.5 gm Q15M PRN PO DECREASED GLUCOSE; Start 01/17/17 at 10: 00 Dextrose (D50w Syringe) 25 ml Q15M PRN IV DECREASED GLUCOSE; Start 01/17/17 at 10:00 Dextrose (D50w Syringe) 50 ml Q15M PRN IV DECREASED GLUCOSE; Start 01/17/17 at 10:00 Glucagon (Glucagen) 1 mg Q15M PRN IM DECREASED GLUCOSE; Start 01/17/17 at 10:00 Glucose (Glutose) 15 gm Q15M PRN BUCCAL DECREASED GLUCOSE; Start 01/17/17 at 10 :00 Collagenase (Santyl) 1 applic DAILY TOP Last administered on 03/30/17 08:34; Admin Dose 1 APPLIC; Start 01/17/17 at 21:00 IV Flush (NS 10 ml) 10 ml PRN PRN IV IV PROTOCOL Last administered on 21:45; Admin Dose 10 ML; Start 01/22/17 at 12:00 Miscellaneous Information (Pending Santyl Order For Wound Care) This patient dunaway... PRN PRN XX WOUND CARE; Start 01/24/17 at 07:30 Bisacodyl (Dulcolax Supp) 10 mg DAILY PRN [place] CONSTIPATION Last administered on 02/24/17 15:02; Admin Dose 10 MG; Start 01/25/17 at 16:30 Acetaminophen (Tylenol Liquid) 650 mg Q4H PRN NGT PAIN AND OR ELEVATED TEMP Last administered on 03/29/17 16:32; Admin Dose 650 MG; Start 01/26/17 at 09:00 Metoprolol Tartrate (Lopressor) 2.5 mg Q4H PRN IV HR > 110 Last administered on 02/23/17 03:58; Admin Dose 2.5 MG; Start 01/26/17 at 15:00 Nystatin (Nystatin Powder) 1 applic BID TOP Last administered on 03/30/17 08: 35; Admin Dose 1 APPLIC; Start 02/04/17 at 12:00 Eye Lubricant (Artificial Tears Oph) 2 drop Q6H PRN BOTH EYES DRY EYES Last administered on 03/16/17 20:33; Admin Dose 2 DROP; Start 02/13/17 at 15:30 Nystatin (Nystatin Susp) 5 ml QID GTB Last administered on 03/30/17 08:33; Admin Dose 5 ML; Start 02/18/17 at 08:00 Lansoprazole (Prevacid) 30 mg BID@06,18 GTB Last administered on 03/30/17 06: 36; Admin Dose 30 MG; Start 02/18/17 at 18:00 Apixaban (Eliquis) 5 mg BID GTB Last administered on 03/30/17 08:34; Admin Dose 5 MG; Start 02/22/17 at 22:00 Digoxin (Digoxin) 0.125 mg DAILY@13 PO Last administered on 03/29/17 12:56; Admin Dose 0.125 MG; Start 03/12/17 at 13:00 Atenolol (Tenormin) 12.5 mg BID PO Last administered on 03/29/17 21:10; Admin Dose 12.5 MG; Start 03/12/17 at 21:00 Midodrine 10 mg 10 mg Q8 PRN GTB BLOOD PRESSURE SUPPORT Last administered on 04:26; Admin Dose 10 MG; Start 03/18/17 at 19:30 Ampicillin (Ampicillin 2 Gm/ NS (Pmx)) 100 ml @ 100 mls/hr Q4 IVPB Last administered on 03/30/17 08:33; Admin Dose 100 MLS/HR; Start 03/29/17 at 12:00 Gentamicin Sulfate (Gentamicin Iv Per Pharmacy) GENTAMICIN PER PHARM... NOTE XX ; Start 03/29/17 at 10:30 Miscellaneous Information (*Rx Drug Level Order Reminder*) 1 ONCE ONCE XX ; Start 03/30/17 at 12:00; Stop 03/30/17 at 12:01 Miscellaneous Information (*Rx Drug Level Order Reminder*) 1 ONCE ONCE XX ; Start 03/30/17 at 13:00; Stop 03/30/17 at 13:01 Miscellaneous Information (*Rx Drug Level Order Reminder*) 1 ONCE ONCE XX ; Start 03/30/17 at 14:00; Stop 03/30/17 at 14:01 TYE STYLES M.D. Mar 30, 2017 08:56
[2017-03-30] MEDS: ATENOLOL 25 MG TAB PO SCH ×2 (09:26→20:59)
[2017-03-30] MEDS: DIGOXIN 0.125 MG TAB PO SCH (12:51)
--- NOTE | 2017-03-30 13:06 | PN ---
Date/Time of Note Date/Time of Note DATE: 03/30/17 TIME: 13:05 Assessment/Plan VTE Prophylaxis VTE Prophylaxis Intervention: SCD's Lines/Catheters IV Catheter Type (from [facility]): Peripheral IV Urinary Cath still in place: No Assessment/Plan Chief Complaint/Hosp Course Patient remains afebrile, leukocytosis decreased, awake, alert. Assessment/Plan - Enterococcus bacteremia, PICC line DC'd. No apparent vegetation per TTE. Continue antibiotics per ID. - Bacteremia and recurrent UTI versus colonization. Dr. Hiro villeda is following in ID consultation. - Bilateral thalamic infarctions. Dr. Ramirez is following in neurology consultation. - Gastritis due to H. pylori, status post EGD, completed therapy per H. pylori eradication. - Dysphagia, status post G-tube placement by Dr. Garcia. - Atrial fibrillation with rapid ventricular response. Dr. Armenta is following and cardiology consultation. Continue Eliquis. Digoxin and atenolol. - Thrombosis of the bilateral cephalic veins. - Acute kidney injury, resolved. - History of CVA - History of hyperlipidemia Further recommendations based on clinical course. Plan of care discussed with Dr. Valdovinos. Problems: Exam/Review of Systems Vital Signs Vitals Vital Signs Date Time Temp Pulse Resp B/P Pulse Ox O2 Delivery O2 Flow Rate FiO2 03/30/17 12:00 61 03/30/17 11:51 98.0 20 127/57 99 03/30/17 07:30 21 Intake and Output 03/29/17 03/29/17 03/30/17 15:00 23:00 07:00 Intake Total 150 ml 1350 ml 1050 ml Balance 150 ml 1350 ml 1050 ml Exam Constitutional: awake Respiratory: normal air movement Cardiovascular: irregular rhythm Gastrointestinal: non-tender, other (G-tube), soft Genitourinary - Female: other (Lees catheter) Musculoskeletal: muscle weakness Neurological: focal weakness Results Result Diagram: 03/30/17 0535 03/30/17 0535 Results 24 hrs Laboratory Tests Test 03/30/17 05:35 03/30/17 12:18 White Blood Count 10.6 Red Blood Count 3.51 L Hemoglobin 9.7 L Hematocrit 30.0 L Mean Corpuscular Volume 85.5 Mean Corpuscular Hemoglobin 27.6 L Mean Corpuscular Hemoglobin Concent 32.3 Red Cell Distribution Width 16.3 H Platelet Count 411 # Mean Platelet Volume 11.4 H Neutrophils % 81.4 H Lymphocytes % 9.9 L Monocytes % 4.9 Eosinophils % 1.5 Basophils % 0.7 Nucleated Red Blood Cells % 0.0 Neutrophils # 8.7 H Lymphocytes # 1.1 Monocytes # 0.5 Eosinophils # 0.2 Basophils # 0.1 Nucleated Red Blood Cells # 0.0 Sodium Level 139 Potassium Level 3.8 Chloride Level 108 Carbon Dioxide Level 25 Anion Gap 10 Blood Urea Nitrogen 21 H Creatinine 0.77 Glucose Level 143 Calcium Level 9.4 Gentamicin Level Trough 2.0 Medications Medications Current Medications Miscellaneous Information 1 ea NOTE XX ; Start 01/17/17 at 10:00 Glucose (Glutose) 15 gm Q15M PRN PO DECREASED GLUCOSE; Start 01/17/17 at 10:00 Glucose (Glutose) 22.5 gm Q15M PRN PO DECREASED GLUCOSE; Start 01/17/17 at 10: 00 Dextrose (D50w Syringe) 25 ml Q15M PRN IV DECREASED GLUCOSE; Start 01/17/17 at 10:00 Dextrose (D50w Syringe) 50 ml Q15M PRN IV DECREASED GLUCOSE; Start 01/17/17 at 10:00 Glucagon (Glucagen) 1 mg Q15M PRN IM DECREASED GLUCOSE; Start 01/17/17 at 10:00 Glucose (Glutose) 15 gm Q15M PRN BUCCAL DECREASED GLUCOSE; Start 01/17/17 at 10 :00 Collagenase (Santyl) 1 applic DAILY TOP Last administered on 03/30/17 08:34; Admin Dose 1 APPLIC; Start 01/17/17 at 21:00 IV Flush (NS 10 ml) 10 ml PRN PRN IV IV PROTOCOL Last administered on 21:45; Admin Dose 10 ML; Start 01/22/17 at 12:00 Miscellaneous Information (Pending Santyl Order For Wound Care) This patient dunaway... PRN PRN XX WOUND CARE; Start 01/24/17 at 07:30 Bisacodyl (Dulcolax Supp) 10 mg DAILY PRN [place] CONSTIPATION Last administered on 02/24/17 15:02; Admin Dose 10 MG; Start 01/25/17 at 16:30 Acetaminophen (Tylenol Liquid) 650 mg Q4H PRN NGT PAIN AND OR ELEVATED TEMP Last administered on 03/29/17 16:32; Admin Dose 650 MG; Start 01/26/17 at 09:00 Metoprolol Tartrate (Lopressor) 2.5 mg Q4H PRN IV HR > 110 Last administered on 02/23/17 03:58; Admin Dose 2.5 MG; Start 01/26/17 at 15:00 Nystatin (Nystatin Powder) 1 applic BID TOP Last administered on 03/30/17 08: 35; Admin Dose 1 APPLIC; Start 02/04/17 at 12:00 Eye Lubricant (Artificial Tears Oph) 2 drop Q6H PRN BOTH EYES DRY EYES Last administered on 03/16/17 20:33; Admin Dose 2 DROP; Start 02/13/17 at 15:30 Nystatin (Nystatin Susp) 5 ml QID GTB Last administered on 03/30/17 12:48; Admin Dose 5 ML; Start 02/18/17 at 08:00 Lansoprazole (Prevacid) 30 mg BID@06,18 GTB Last administered on 03/30/17 06: 36; Admin Dose 30 MG; Start 02/18/17 at 18:00 Apixaban (Eliquis) 5 mg BID GTB Last administered on 03/30/17 08:34; Admin Dose 5 MG; Start 02/22/17 at 22:00 Digoxin (Digoxin) 0.125 mg DAILY@13 PO Last administered on 03/30/17 12:51; Admin Dose 0.125 MG; Start 03/12/17 at 13:00 Atenolol (Tenormin) 12.5 mg BID PO Last administered on 03/30/17 09:26; Admin Dose 12.5 MG; Start 03/12/17 at 21:00 Midodrine 10 mg 10 mg Q8 PRN GTB BLOOD PRESSURE SUPPORT Last administered on 04:26; Admin Dose 10 MG; Start 03/18/17 at 19:30 Ampicillin (Ampicillin 2 Gm/ NS (Pmx)) 100 ml @ 100 mls/hr Q4 IVPB Last administered on 03/30/17 12:46; Admin Dose 100 MLS/HR; Start 03/29/17 at 12:00 Gentamicin Sulfate (Gentamicin Iv Per Pharmacy) GENTAMICIN PER PHARM... NOTE XX ; Start 03/29/17 at 10:30 Miscellaneous Information (*Rx Drug Level Order Reminder*) 1 ONCE ONCE XX ; Start 03/30/17 at 14:00; Stop 03/30/17 at 14:01 LAWRENCE PICKERING Mar 30, 2017 13:06
[2017-03-30] MEDS: ARTIFICIAL TEARS 15 ML OPH BOTH EYES PRN (15:13)
[2017-03-31] VITALS (12 sets, daily range): BP systolic 105–129; BP diastolic 52–69; PULSE 59–81; RESP 15–20
[2017-03-31] MEDS: LEVALBUTEROL (NEB) 0.63 MG/3 ML AMP HHN SCH ×4 (01:14→19:12)
[2017-03-31] MEDS: GENTAMICIN 100 MG/50 ML NS IVPB SCH (01:31)
[2017-03-31] MEDS: AMPICILLIN 2 GM/NS (PMX) 100 ML IVPB SCH ×6 (01:32→20:23)
[2017-03-31] MEDS: LANSOPRAZOLE 30 MG CAP GTB SCH ×2 (05:04→16:51)
[2017-03-31 06:44] LABS: BASOPHIL # 0.1 10^3/ul (0.0-0.1); BASOPHILS % 0.8 % (0.0-2.0); EOSINOPHILS # 0.2 10^3/ul (0.0-0.5); EOSINOPHILS % 1.5 % (0.0-7.0); HEMATOCRIT 30.4 % (37.0-47.0); HEMOGLOBIN 9.4 g/dl (12.0-16.0); LYMPHOCYTES # 1.2 10^3/ul (0.8-2.9); LYMPHOCYTES % 10.9 % (15.0-51.0); MEAN CORPUSCULAR HEMOGLOBIN 26.3 pg (29.0-33.0); MEAN CORPUSCULAR HGB CONC 30.9 g/dl (32.0-37.0); MEAN CORPUSCULAR VOLUME 84.9 fl (82.0-101.0); MEAN PLATELET VOLUME 11.7 fl (7.4-10.4); MONOCYTE # 0.8 10^3/ul (0.3-0.9); MONOCYTES % 7.6 % (0.0-11.0); NEUTROPHIL # 8.6 10^3/ul (1.6-7.5); NEUTROPHILS % 77.7 % (39.0-77.0); PLATELET COUNT 421 10^3/UL (140-415); RED BLOOD COUNT 3.58 10^6/ul (4.20-5.40); RED CELL DISTRIBUTION WIDTH 16.6 % (11.5-14.5)
[2017-03-31 07:12] LABS: CALCIUM 9.4 mg/dl (8.4-10.2); CREATININE 0.86 mg/dl (0.44-1.00); POTASSIUM 4.1 mmol/L (3.5-5.1)
[2017-03-31] MEDS: ATENOLOL 25 MG TAB PO SCH ×2 (08:26→20:25)
[2017-03-31] MEDS: NYSTATIN SUSP 5 ML CUP GTB SCH ×4 (08:26→20:23)
[2017-03-31] MEDS: APIXABAN 5 MG TABLET GTB SCH ×2 (08:26→20:24)
[2017-03-31] MEDS: NYSTATIN 30 GM POWDER BTL TOP SCH ×2 (08:27→20:23)
[2017-03-31] MEDS: COLLAGENASE 30 GM TUBE TOP SCH (08:27)
--- NOTE | 2017-03-31 08:54 | CONS ---
Date/Time of Note Date/Time of Note DATE: 03/31/17 TIME: 08:52 Assessment/Plan Assessment/Plan Additional Assessment/Plan 1. AF-mainly rate controlled - No Class i indication for pacer now as HR is stable. Now rate controlled. Will monitor now. BETTER RATE NOW. 2.Hypotension-on midodrine - better now - HAD EPISODES OF LOW BP, resolved - better now. 3.encephalopathy/ams-slowly improving - marked REMARKABLE improvement 4.coagulopathy-now on eliquis- no beed. 5. Acute Renal failure-Now resolved - good urine output now - improved 6.Leukocytosis - on anti-Bx 7. Cardiomyopathy-EF 45% - no indication for ICD 8. Cephalic vein thrombosis 9. Dysphagia s/p PEG 10. H Pylori Consultation Date/Type/Reason Admit Date/Time Jan 16, 2017 at 15:19 Initial Consult Date 01/26/17 Type of Consultation: ID Referring Provider: LAWRENCE PICKERING 24 HR Interval Summary Free Text/Dictation NO acute events - BP in good range - awaiting placement ROS: No fever, no chills, no nausea, no vomiting, no diarrhea/constipation No recent weight changes No chest pain, no PND, no orthopnea No dizziness, blurred vision No thirst, no heat or cold intolerance Exam/Review of Systems Vital Signs Vitals Vital Signs Date Time Temp Pulse Resp B/P Pulse Ox O2 Delivery O2 Flow Rate FiO2 03/31/17 08:08 77 03/31/17 07:50 98.4 15 119/52 99 03/31/17 07:44 21 Intake and Output 03/30/17 03/30/17 03/31/17 15:00 23:00 07:00 Intake Total 200 ml 1500 ml 1060 ml Balance 200 ml 1500 ml 1060 ml Exam General: WN/WD/NAD, AOx 3 HEENT: Unicetric/atraumatic/EOMI (follows commands) NECK: JVD elevated, no thyromegaly Lymph: no lymphadenopathy HEART: irregular with no S3, II/ systolic murmur at apex LUNGS: Coarse sounds ABD: soft, NT, ND, +BS : Intact Neuro: non focal SKIN: chronic changes EXT: trace edema Results Result Diagram: 03/31/17 0531 03/31/1731 Results 24 hrs Laboratory Tests Test 03/30/17 12:18 03/31/17 05:31 Gentamicin Level Trough 2.0 White Blood Count 11.0 H Red Blood Count 3.58 L Hemoglobin 9.4 L Hematocrit 30.4 L Mean Corpuscular Volume 84.9 Mean Corpuscular Hemoglobin 26.3 L Mean Corpuscular Hemoglobin Concent 30.9 L Red Cell Distribution Width 16.6 H Platelet Count 421 H Mean Platelet Volume 11.7 H Neutrophils % 77.7 H Lymphocytes % 10.9 L Monocytes % 7.6 Eosinophils % 1.5 Basophils % 0.8 Nucleated Red Blood Cells % 0.0 Neutrophils # 8.6 H Lymphocytes # 1.2 Monocytes # 0.8 Eosinophils # 0.2 Basophils # 0.1 Nucleated Red Blood Cells # 0.0 Sodium Level 141 Potassium Level 4.1 Chloride Level 107 Carbon Dioxide Level 26 Anion Gap 12 Blood Urea Nitrogen 24 H Creatinine 0.86 Glucose Level 103 # Calcium Level 9.4 Medications Medications Current Medications Miscellaneous Information 1 ea NOTE XX ; Start 01/17/17 at 10:00 Glucose (Glutose) 15 gm Q15M PRN PO DECREASED GLUCOSE; Start 01/17/17 at 10:00 Glucose (Glutose) 22.5 gm Q15M PRN PO DECREASED GLUCOSE; Start 01/17/17 at 10: 00 Dextrose (D50w Syringe) 25 ml Q15M PRN IV DECREASED GLUCOSE; Start 01/17/17 at 10:00 Dextrose (D50w Syringe) 50 ml Q15M PRN IV DECREASED GLUCOSE; Start 01/17/17 at 10:00 Glucagon (Glucagen) 1 mg Q15M PRN IM DECREASED GLUCOSE; Start 01/17/17 at 10:00 Glucose (Glutose) 15 gm Q15M PRN BUCCAL DECREASED GLUCOSE; Start 01/17/17 at 10 :00 Collagenase (Santyl) 1 applic DAILY TOP Last administered on 03/31/17 08:27; Admin Dose 1 APPLIC; Start 01/17/17 at 21:00 IV Flush (NS 10 ml) 10 ml PRN PRN IV IV PROTOCOL Last administered on 21:45; Admin Dose 10 ML; Start 01/22/17 at 12:00 Miscellaneous Information (Pending Santyl Order For Wound Care) This patient dunaway... PRN PRN XX WOUND CARE; Start 01/24/17 at 07:30 Bisacodyl (Dulcolax Supp) 10 mg DAILY PRN [place] CONSTIPATION Last administered on 02/24/17 15:02; Admin Dose 10 MG; Start 01/25/17 at 16:30 Acetaminophen (Tylenol Liquid) 650 mg Q4H PRN NGT PAIN AND OR ELEVATED TEMP Last administered on 03/29/17 16:32; Admin Dose 650 MG; Start 01/26/17 at 09:00 Metoprolol Tartrate (Lopressor) 2.5 mg Q4H PRN IV HR > 110 Last administered on 02/23/17 03:58; Admin Dose 2.5 MG; Start 01/26/17 at 15:00 Nystatin (Nystatin Powder) 1 applic BID TOP Last administered on 03/31/17 08: 27; Admin Dose 1 APPLIC; Start 02/04/17 at 12:00 Eye Lubricant (Artificial Tears Oph) 2 drop Q6H PRN BOTH EYES DRY EYES Last administered on 03/30/17 15:13; Admin Dose 2 DROP; Start 02/13/17 at 15:30 Nystatin (Nystatin Susp) 5 ml QID GTB Last administered on 03/31/17 08:26; Admin Dose 5 ML; Start 02/18/17 at 08:00 Lansoprazole (Prevacid) 30 mg BID@06,18 GTB Last administered on 03/31/17 05: 04; Admin Dose 30 MG; Start 02/18/17 at 18:00 Apixaban (Eliquis) 5 mg BID GTB Last administered on 03/31/17 08:26; Admin Dose 5 MG; Start 02/22/17 at 22:00 Digoxin (Digoxin) 0.125 mg DAILY@13 PO Last administered on 03/30/17 12:51; Admin Dose 0.125 MG; Start 03/12/17 at 13:00 Atenolol (Tenormin) 12.5 mg BID PO Last administered on 03/31/17 08:26; Admin Dose 12.5 MG; Start 03/12/17 at 21:00 Midodrine 10 mg 10 mg Q8 PRN GTB BLOOD PRESSURE SUPPORT Last administered on 04:26; Admin Dose 10 MG; Start 03/18/17 at 19:30 Ampicillin (Ampicillin 2 Gm/ NS (Pmx)) 100 ml @ 100 mls/hr Q4 IVPB Last administered on 03/31/17t 08:26; Admin Dose 100 MLS/HR; Start 03/29/17 at 12:00 Gentamicin Sulfate (Gentamicin Iv Per Pharmacy) GENTAMICIN PER PHARM... NOTE XX ; Start 03/29/17 at 10:30 YAJAIRA ALVAREZ MD Mar 31, 2017 08:54
--- NOTE | 2017-03-31 09:42 | CONS ---
Date/Time of Note Date/Time of Note DATE: 03/31/17 TIME: 09:40 Assessment/Plan Assessment/Plan Chief Complaint/Hosp Course - sepsis due to bacteremia and UTI - enterococcus bacteremia, tip of PICC grew Group B strep. Transthoracic echo on 01/16/2017, 03/25/2017 did not reveal valvular vegetation - h/o rheumatic heart disease (probable rheumatic, severe MS on transthoracic echo) - recurrent UTI due to E. coli, received levo - s/p UTI due to proteus - dysphagia s/p PEG - diffuse moderate degree of gastritis s/p EGD 02/15/2017 - h/o gastritis due to H. pylori based on pathology 02/15/2017, on clarithromycin based regimen (02/20/2017-), [id number] - h/o bleeding from GT site, and blood clots in tube feed - resolved - recurrent CVA - h/o possible aspiration, improved - encephalopathy due to CVA. CSF from 01/19/2017: WBC=3, RBC=0, glu 53, pro=61, CSF ([place] serology negative, HSV negative, cocci CF negative, encephalitis meningitis panel could not be done due to a lack of sample), serum ([place] PCR negative, crypto antigen negative, cocci CF negative, histo CF negative). my order of crypto in CSF was cancelled and no reason given - h/o bacteremia due to CoNS, probable contaminant. - h/o MARIELA - improved - A fib - h/o DVT - h/o LLE ischemia s/p thrombolysis and subsequent open thrombectomy and fasciotomy at [facility] 09/2015 - h/o thrombus on DEBBIE per records from [facility] - h/o funguria - Lees catheter was changed 02/11/2017 and subsequently removed recommendations: - reviewed Dr. Armenta's note. DEBBIE is a high risk for this Pt. In this case, I recommend empiric endocarditis treatment because Pt had persistent, high grade enterococci bacteremia and h/o rheumatic disease of the mitral valve. I recommend ampicillin and synergistic gentamicin (03/29/2017-). Monitor GFR closely. Pt took vancomycin (03/22/2017-03/28/20174) and levofloxacin previously. recommended duration 4 weeks from the first negative blood cultures, suggested end date ; may switch gentamicin to ceftriaxone after a few weeks. - management d/w Pt's by bedside Problems: Consultation Date/Type/Reason Admit Date/Time Jan 16, 2017 at 15:19 Initial Consult Date 01/17/17 Type of Consultation: ID Referring Provider: LAWRENCE PICKERING 24 HR Interval Summary Subjective hx not possible: pt non-verbal Exam/Review of Systems Vital Signs Vitals Vital Signs Date Time Temp Pulse Resp B/P Pulse Ox O2 Delivery O2 Flow Rate FiO2 03/31/17 08:08 77 03/31/17 07:50 98.4 15 119/52 99 03/31/17 07:44 21 Intake and Output 03/30/17 03/30/17 03/31/17 14:59 22:59 06:59 Intake Total 200 ml 1500 ml 1060 ml Balance 200 ml 1500 ml 1060 ml Exam Constitutional: frail, non-verbal Psych: confusion Head: atraumatic, normocephalic Eyes: nl conjunctiva, other (L ptosis) ENMT: nl external ears & nose, nl nasal mucosa & septum Respiratory: diminished breath sounds Cardiovascular: murmurs/extra sounds (II/ murmur at MCL), nl pulses, regular rate and rhythm Gastrointestinal: non-tender, other (PEG+), soft Extremities: No edema Neurological: lethargic Skin: nl turgor Results Result Diagram: 03/31/17 0531 03/31/17 0531 Results 24 hrs Laboratory Tests Test 03/30/17 12:18 03/31/17 05:31 Gentamicin Level Trough 2.0 White Blood Count 11.0 H Red Blood Count 3.58 L Hemoglobin 9.4 L Hematocrit 30.4 L Mean Corpuscular Volume 84.9 Mean Corpuscular Hemoglobin 26.3 L Mean Corpuscular Hemoglobin Concent 30.9 L Red Cell Distribution Width 16.6 H Platelet Count 421 H Mean Platelet Volume 11.7 H Neutrophils % 77.7 H Lymphocytes % 10.9 L Monocytes % 7.6 Eosinophils % 1.5 Basophils % 0.8 Nucleated Red Blood Cells % 0.0 Neutrophils # 8.6 H Lymphocytes # 1.2 Monocytes # 0.8 Eosinophils # 0.2 Basophils # 0.1 Nucleated Red Blood Cells # 0.0 Sodium Level 141 Potassium Level 4.1 Chloride Level 107 Carbon Dioxide Level 26 Anion Gap 12 Blood Urea Nitrogen 24 H Creatinine 0.86 Glucose Level 103 # Calcium Level 9.4 Medications Medications Current Medications Miscellaneous Information 1 ea NOTE XX ; Start 01/17/17 at 10:00 Glucose (Glutose) 15 gm Q15M PRN PO DECREASED GLUCOSE; Start 01/17/17 at 10:00 Glucose (Glutose) 22.5 gm Q15M PRN PO DECREASED GLUCOSE; Start 01/17/17 at 10: 00 Dextrose (D50w Syringe) 25 ml Q15M PRN IV DECREASED GLUCOSE; Start 01/17/17 at 10:00 Dextrose (D50w Syringe) 50 ml Q15M PRN IV DECREASED GLUCOSE; Start 01/17/17 at 10:00 Glucagon (Glucagen) 1 mg Q15M PRN IM DECREASED GLUCOSE; Start 01/17/17 at 10:00 Glucose (Glutose) 15 gm Q15M PRN BUCCAL DECREASED GLUCOSE; Start 01/17/17 at 10 :00 Collagenase (Santyl) 1 applic DAILY TOP Last administered on 03/31/17 08:27; Admin Dose 1 APPLIC; Start 01/17/17 at 21:00 IV Flush (NS 10 ml) 10 ml PRN PRN IV IV PROTOCOL Last administered on 21:45; Admin Dose 10 ML; Start 01/22/17 at 12:00 Miscellaneous Information (Pending Santyl Order For Wound Care) This patient dunaway... PRN PRN XX WOUND CARE; Start 01/24/17 at 07:30 Bisacodyl (Dulcolax Supp) 10 mg DAILY PRN [place] CONSTIPATION Last administered on 02/24/17 15:02; Admin Dose 10 MG; Start 01/25/17 at 16:30 Acetaminophen (Tylenol Liquid) 650 mg Q4H PRN NGT PAIN AND OR ELEVATED TEMP Last administered on 03/29/17 16:32; Admin Dose 650 MG; Start 01/26/17 at 09:00 Metoprolol Tartrate (Lopressor) 2.5 mg Q4H PRN IV HR > 110 Last administered on 02/23/17 03:58; Admin Dose 2.5 MG; Start 01/26/17 at 15:00 Nystatin (Nystatin Powder) 1 applic BID TOP Last administered on 03/31/17 08: 27; Admin Dose 1 APPLIC; Start 02/04/17 at 12:00 Eye Lubricant (Artificial Tears Oph) 2 drop Q6H PRN BOTH EYES DRY EYES Last administered on 03/30/17 15:13; Admin Dose 2 DROP; Start 02/13/17 at 15:30 Nystatin (Nystatin Susp) 5 ml QID GTB Last administered on 03/31/17 08:26; Admin Dose 5 ML; Start 02/18/17 at 08:00 Lansoprazole (Prevacid) 30 mg BID@06,18 GTB Last administered on 03/31/17 05: 04; Admin Dose 30 MG; Start 02/18/17 at 18:00 Apixaban (Eliquis) 5 mg BID GTB Last administered on 03/31/17 08:26; Admin Dose 5 MG; Start 02/22/17 at 22:00 Digoxin (Digoxin) 0.125 mg DAILY@13 PO Last administered on 03/30/17 12:51; Admin Dose 0.125 MG; Start 03/12/17 at 13:00 Atenolol (Tenormin) 12.5 mg BID PO Last administered on 03/31/17 08:26; Admin Dose 12.5 MG; Start 03/12/17 at 21:00 Midodrine 10 mg 10 mg Q8 PRN GTB BLOOD PRESSURE SUPPORT Last administered on 04:26; Admin Dose 10 MG; Start 03/18/17 at 19:30 Ampicillin (Ampicillin 2 Gm/ NS (Pmx)) 100 ml @ 100 mls/hr Q4 IVPB Last administered on 03/31/17 08:26; Admin Dose 100 MLS/HR; Start 03/29/17 at 12:00 Gentamicin Sulfate (Gentamicin Iv Per Pharmacy) GENTAMICIN PER PHARM... NOTE XX ; Start 03/29/17 at 10:30 TYE STYLES M.D. Mar 31, 2017 09:42
[2017-03-31] MEDS: DIGOXIN 0.125 MG TAB PO SCH (13:45)
--- NOTE | 2017-03-31 18:20 | PN ---
Date/Time of Note Date/Time of Note DATE: 03/31/17 TIME: 18:19 Assessment/Plan VTE Prophylaxis VTE Prophylaxis Intervention: SCD's Lines/Catheters IV [facility] Peripheral IV Urinary Cath still in place: No Assessment/Plan Chief Complaint/Hosp Course Patient remains medically stable, afebrile, discharge planning. Discharge is discussed with patient's son at the bedside as well as case management Assessment/Plan - Enterococcus bacteremia, PICC line DC'd. No apparent vegetation per TTE. Continue antibiotics per ID. - Bacteremia and recurrent UTI versus colonization. Dr. Hiro villeda is following in ID consultation. - Bilateral thalamic infarctions. Dr. Ramirez is following in neurology consultation. - Gastritis due to H. pylori, status post EGD, completed therapy per H. pylori eradication. - Dysphagia, status post G-tube placement by Dr. Garcia. - Atrial fibrillation with rapid ventricular response. Dr. Armenta is following and cardiology consultation. Continue Eliquis. Digoxin and atenolol. - Thrombosis of the bilateral cephalic veins. - Acute kidney injury, resolved. - History of CVA - History of hyperlipidemia Further recommendations based on clinical course. Plan of care discussed with Dr. Valdovinos. Problems: Exam/Review of Systems Vital Signs Vitals Vital Signs Date Time Temp Pulse Resp B/P Pulse Ox O2 Delivery O2 Flow Rate FiO2 03/31/17 16:43 97.6 77 16 117/56 99 03/31/17 14:44 21 Intake and Output 03/30/17 03/30/17 03/31/17 15:00 23:00 07:00 Intake Total 200 ml 1500 ml 1060 ml Balance 200 ml 1500 ml 1060 ml Exam Constitutional: awake Respiratory: normal air movement Cardiovascular: irregular rhythm Gastrointestinal: non-tender, other (G-tube), soft Genitourinary - Female: other (Lees catheter) Musculoskeletal: muscle weakness Neurological: focal weakness Results Result Diagram: 03/31/17 0531 03/31/17 0531 Results 24 hrs Laboratory Tests Test 03/31/17 05:31 White Blood Count 11.0 H Red Blood Count 3.58 L Hemoglobin 9.4 L Hematocrit 30.4 L Mean Corpuscular Volume 84.9 Mean Corpuscular Hemoglobin 26.3 L Mean Corpuscular Hemoglobin Concent 30.9 L Red Cell Distribution Width 16.6 H Platelet Count 421 H Mean Platelet Volume 11.7 H Neutrophils % 77.7 H Lymphocytes % 10.9 L Monocytes % 7.6 Eosinophils % 1.5 Basophils % 0.8 Nucleated Red Blood Cells % 0.0 Neutrophils # 8.6 H Lymphocytes # 1.2 Monocytes # 0.8 Eosinophils # 0.2 Basophils # 0.1 Nucleated Red Blood Cells # 0.0 Sodium Level 141 Potassium Level 4.1 Chloride Level 107 Carbon Dioxide Level 26 Anion Gap 12 Blood Urea Nitrogen 24 H Creatinine 0.86 Glucose Level 103 # Calcium Level 9.4 Medications Medications Current Medications Miscellaneous Information 1 ea NOTE XX ; Start 01/17/17 at 10:00 Glucose (Glutose) 15 gm Q15M PRN PO DECREASED GLUCOSE; Start 01/17/17 at 10:00 Glucose (Glutose) 22.5 gm Q15M PRN PO DECREASED GLUCOSE; Start 01/17/17 at 10: 00 Dextrose (D50w Syringe) 25 ml Q15M PRN IV DECREASED GLUCOSE; Start 01/17/17 at 10:00 Dextrose (D50w Syringe) 50 ml Q15M PRN IV DECREASED GLUCOSE; Start 01/17/17 at 10:00 Glucagon (Glucagen) 1 mg Q15M PRN IM DECREASED GLUCOSE; Start 01/17/17 at 10:00 Glucose (Glutose) 15 gm Q15M PRN BUCCAL DECREASED GLUCOSE; Start 01/17/17 at 10 :00 Collagenase (Santyl) 1 applic DAILY TOP Last administered on 03/31/17 08:27; Admin Dose 1 APPLIC; Start 01/17/17 at 21:00 IV Flush (NS 10 ml) 10 ml PRN PRN IV IV PROTOCOL Last administered on 21:45; Admin Dose 10 ML; Start 01/22/17 at 12:00 Miscellaneous Information (Pending Santyl Order For Wound Care) This patient dunaway... PRN PRN XX WOUND CARE; Start 01/24/17 at 07:30 Bisacodyl (Dulcolax Supp) 10 mg DAILY PRN [place] CONSTIPATION Last administered on 02/24/17 15:02; Admin Dose 10 MG; Start 01/25/17 at 16:30 Acetaminophen (Tylenol Liquid) 650 mg Q4H PRN NGT PAIN AND OR ELEVATED TEMP Last administered on 03/29/17 16:32; Admin Dose 650 MG; Start 01/26/17 at 09:00 Metoprolol Tartrate (Lopressor) 2.5 mg Q4H PRN IV HR > 110 Last administered on 02/23/17 03:58; Admin Dose 2.5 MG; Start 01/26/17 at 15:00 Nystatin (Nystatin Powder) 1 applic BID TOP Last administered on 03/31/17 08: 27; Admin Dose 1 APPLIC; Start 02/04/17 at 12:00 Eye Lubricant (Artificial Tears Oph) 2 drop Q6H PRN BOTH EYES DRY EYES Last administered on 03/30/17 15:13; Admin Dose 2 DROP; Start 02/13/17 at 15:30 Nystatin (Nystatin Susp) 5 ml QID GTB Last administered on 03/31/17 16:51; Admin Dose 5 ML; Start 02/18/17 at 08:00 Lansoprazole (Prevacid) 30 mg BID@06,18 GTB Last administered on 03/31/17 16: 51; Admin Dose 30 MG; Start 02/18/17 at 18:00 Apixaban (Eliquis) 5 mg BID GTB Last administered on 03/31/17 08:26; Admin Dose 5 MG; Start 02/22/17 at 22:00 Digoxin (Digoxin) 0.125 mg DAILY@13 PO Last administered on 03/31/17 13:45; Admin Dose 0.125 MG; Start 03/12/17 at 13:00 Atenolol (Tenormin) 12.5 mg BID PO Last administered on 03/31/17 08:26; Admin Dose 12.5 MG; Start 03/12/17 at 21:00 Midodrine 10 mg 10 mg Q8 PRN GTB BLOOD PRESSURE SUPPORT Last administered on 04:26; Admin Dose 10 MG; Start 03/18/17 at 19:30 Ampicillin (Ampicillin 2 Gm/ NS (Pmx)) 100 ml @ 100 mls/hr Q4 IVPB Last administered on 03/31/17 16:51; Admin Dose 100 MLS/HR; Start 03/29/17 at 12:00 Gentamicin Sulfate (Gentamicin Iv Per Pharmacy) GENTAMICIN PER PHARM... NOTE XX ; Start 03/29/17 at 10:30 LAWRENCE PICKERING Mar 31, 2017 18:20
[2017-04-01] VITALS (11 sets, daily range): BP systolic 95–147; BP diastolic 48–78; PULSE 60–93; RESP 16–21
[2017-04-01] MEDS: AMPICILLIN 2 GM/NS (PMX) 100 ML IVPB SCH ×6 (00:31→20:10)
[2017-04-01] MEDS: LEVALBUTEROL (NEB) 0.63 MG/3 ML AMP HHN SCH ×4 (01:01→19:56)
[2017-04-01] MEDS: GENTAMICIN 100 MG/50 ML NS IVPB SCH (01:48)
[2017-04-01] MEDS: LANSOPRAZOLE 30 MG CAP GTB SCH ×2 (05:39→17:20)
[2017-04-01] MEDS: NYSTATIN SUSP 5 ML CUP GTB SCH ×4 (08:09→20:10)
[2017-04-01] MEDS: NYSTATIN 30 GM POWDER BTL TOP SCH ×2 (08:09→20:14)
[2017-04-01] MEDS: APIXABAN 5 MG TABLET GTB SCH ×2 (08:09→20:10)
[2017-04-01] MEDS: COLLAGENASE 30 GM TUBE TOP SCH (08:09)
[2017-04-01] MEDS: ATENOLOL 25 MG TAB PO SCH ×2 (08:10→20:11)
--- NOTE | 2017-04-01 10:18 | CONS ---
Date/Time of Note Date/Time of Note DATE: 04/01/17 TIME: :17 Assessment/Plan Assessment/Plan Additional Assessment/Plan 1. AF-mainly rate controlled - No Class i indication for pacer now as HR is stable. Now rate controlled. Will monitor now. BETTER RATE NOW. STABLE. 2.Hypotension-on midodrine - better now - HAD EPISODES OF LOW BP, resolved - better now. 3.encephalopathy/ams-slowly improving - marked REMARKABLE improvement WORKING WITH SPEECH therapist now - much better. 4.coagulopathy-now on eliquis- no beed. 5. Acute Renal failure-Now resolved - good urine output now - improved 6.Leukocytosis - on anti-Bx 7. Cardiomyopathy-EF 45% - no indication for ICD - 8. Cephalic vein thrombosis 9. Dysphagia s/p PEG 10. H Pylori Consultation Date/Type/Reason Admit Date/Time Jan 16, 2017 at 15:19 Initial Consult Date 01/26/17 Type of Consultation: ID Referring Provider: LAWRENCE PICKERING 24 HR Interval Summary Free Text/Dictation REMARKABLE improvement WORKING WITH SPEECH therapist now - much better ROS: No fever, no chills, no nausea, no vomiting, no diarrhea/constipation No recent weight changes No chest pain, no PND, no orthopnea No dizziness, blurred vision No thirst, no heat or cold intolerance Exam/Review of Systems Vital Signs Vitals Vital Signs Date Time Temp Pulse Resp B/P Pulse Ox O2 Delivery O2 Flow Rate FiO2 04/01/17 08:00 60 04/01/17 07:59 98.5 18 95/50 96 04/01/17 07:52 21 Intake and Output 03/31/17 03/31/17 04/01/17 15:00 23:00 07:00 Intake Total 1700 ml 850 ml Balance 1700 ml 850 ml Exam General: WN/WD/NAD, AOx 3 HEENT: Unicetric/atraumatic/EOMI (follows commands) NECK: JVD elevated, no thyromegaly Lymph: no lymphadenopathy HEART: Irregular with no S3, II/ systolic murmur at apex LUNGS: Coarse sounds ABD: soft, NT, ND, +BS : Intact Neuro: non focal SKIN: chronic changes EXT: trace edema Results Result Diagram: 03/31/1753003/31/17530 Medications Medications Current Medications Miscellaneous Information 1 ea NOTE XX ; Start 01/17/17 at 10:00 Glucose (Glutose) 15 gm Q15M PRN PO DECREASED GLUCOSE; Start 01/17/17 at 10:00 Glucose (Glutose) 22.5 gm Q15M PRN PO DECREASED GLUCOSE; Start 01/17/17 at 10: 00 Dextrose (D50w Syringe) 25 ml Q15M PRN IV DECREASED GLUCOSE; Start 01/17/17 at 10:00 Dextrose (D50w Syringe) 50 ml Q15M PRN IV DECREASED GLUCOSE; Start 01/17/17 at 10:00 Glucagon (Glucagen) 1 mg Q15M PRN IM DECREASED GLUCOSE; Start 01/17/17 at 10:00 Glucose (Glutose) 15 gm Q15M PRN BUCCAL DECREASED GLUCOSE; Start 01/17/17 at 10 :00 Collagenase (Santyl) 1 applic DAILY TOP Last administered on 04/01/17 08:09; Admin Dose 1 APPLIC; Start 01/17/17 at 21:00 IV Flush (NS 10 ml) 10 ml PRN PRN IV IV PROTOCOL Last administered on 21:45; Admin Dose 10 ML; Start 01/22/17 at 12:00 Miscellaneous Information (Pending Santyl Order For Wound Care) This patient dunaway... PRN PRN XX WOUND CARE; Start 01/24/17 at 07:30 Bisacodyl (Dulcolax Supp) 10 mg DAILY PRN [place] CONSTIPATION Last administered on 02/24/17 15:02; Admin Dose 10 MG; Start 01/25/17 at 16:30 Acetaminophen (Tylenol Liquid) 650 mg Q4H PRN NGT PAIN AND OR ELEVATED TEMP Last administered on 03/29/17 16:32; Admin Dose 650 MG; Start 01/26/17 at 09:00 Metoprolol Tartrate (Lopressor) 2.5 mg Q4H PRN IV HR > 110 Last administered on 02/23/17 03:58; Admin Dose 2.5 MG; Start 01/26/17 at 15:00 Nystatin (Nystatin Powder) 1 applic BID TOP Last administered on 04/01/17 08: 09; Admin Dose 1 APPLIC; Start 02/04/17 at 12:00 Eye Lubricant (Artificial Tears Oph) 2 drop Q6H PRN BOTH EYES DRY EYES Last administered on 03/30/17 15:13; Admin Dose 2 DROP; Start 02/13/17 at 15:30 Nystatin (Nystatin Susp) 5 ml QID GTB Last administered on 04/01/17 08:09; Admin Dose 5 ML; Start 02/18/17 at 08:00 Lansoprazole (Prevacid) 30 mg BID@06,18 GTB Last administered on 04/01/17 05: 39; Admin Dose 30 MG; Start 02/18/17 at 18:00 Apixaban (Eliquis) 5 mg BID GTB Last administered on 04/01/17 08:09; Admin Dose 5 MG; Start 02/22/17 at 22:00 Digoxin (Digoxin) 0.125 mg DAILY@13 PO Last administered on 03/31/17 13:45; Admin Dose 0.125 MG; Start 03/12/17 at 13:00 Atenolol (Tenormin) 12.5 mg BID PO Last administered on 04/01/17 08:10; Admin Dose 12.5 MG; Start 03/12/17 at 21:00 Midodrine 10 mg 10 mg Q8 PRN GTB BLOOD PRESSURE SUPPORT Last administered on 04:26; Admin Dose 10 MG; Start 03/18/17 at 19:30 Ampicillin (Ampicillin 2 Gm/ NS (Pmx)) 100 ml @ 100 mls/hr Q4 IVPB Last administered on 04/01/17 08:09; Admin Dose 100 MLS/HR; Start 03/29/17 at 12:00 Gentamicin Sulfate (Gentamicin Iv Per Pharmacy) GENTAMICIN PER PHARM... NOTE XX ; Start 03/29/17 at 10:30 YAJAIRA ALVAREZ MD Apr 01, 2017 10:18
--- NOTE | 2017-04-01 12:55 | DS ---
Date/Time of Note Date/Time of Note DATE: 04/01/17 TIME: 12:55 Discharge Summary Admission/Discharge Info Admit Date/Time Jan 16, 2017 at 15:19 Discharge Date/Time Patient Condition: Stable Hospital Course Patient remains medically stable, afebrile, discharge planning. Discharge is discussed with patient's son at the bedside as well as case management Assessment/Plan - Enterococcus bacteremia, PICC line DC'd. No apparent vegetation per TTE. Continue antibiotics per ID. - Bacteremia and recurrent UTI versus colonization. Dr. Hiro villeda is following in ID consultation. - Bilateral thalamic infarctions. Dr. Ramirez is following in neurology consultation. - Gastritis due to H. pylori, status post EGD, completed therapy per H. pylori eradication. - Dysphagia, status post G-tube placement by Dr. Garcia. - Atrial fibrillation with rapid ventricular response. Dr. Armenta is following and cardiology consultation. Continue Eliquis. Digoxin and atenolol. - Thrombosis of the bilateral cephalic veins. - Acute kidney injury, resolved. - History of CVA - History of hyperlipidemia Further recommendations based on clinical course. Plan of care discussed with Dr. Valdovinos. Home Meds Reported Medications Warfarin Sodium* (Coumadin*) 5 Mg Tablet, 5 MG PO Q S,T,W,Th,Sat 06/19/11 Warfarin Sodium* (Coumadin*) 2.5 Mg Tablet, 2.5 MG PO Q WEDNESDAY & Wednesday06/19/11 Metoprolol (Lopressor) 100 Mg Tablet, 100 MG PO BID 06/19/11 Penicillin V Potassium* (Penicillin V K*) 50 Mg/Ml Susp, 250 MG PO BID 06/19/11 Penicillin V Potassium* (Penicillin V K*) 250 Mg Tab 06/18/11 Metoprolol Tartrate* (Lopressor*) 25 Mg Tab 06/18/11 Warfarin Sodium* (Coumadin*) 1 Mg Tablet 06/18/11 Primary Care Provider Not On Staff Doctor ALEXIS NAJERA Apr 01, 2017 12:55
[2017-04-01] MEDS: DIGOXIN 0.125 MG TAB PO SCH (13:13)
--- NOTE | 2017-04-01 18:21 | CONS ---
Date/Time of Note Date/Time of Note DATE: 04/01/17 TIME: 18:20 Assessment/Plan Assessment/Plan Chief Complaint/Hosp Course - sepsis due to bacteremia and UTI - enterococcus bacteremia, tip of PICC grew Group B strep. Transthoracic echo on 01/16/2017, 03/25/2017 did not reveal valvular vegetation - h/o rheumatic heart disease (probable rheumatic, severe MS on transthoracic echo) - recurrent UTI due to E. coli, received levo - s/p UTI due to proteus - dysphagia s/p PEG - diffuse moderate degree of gastritis s/p EGD 02/15/2017 - h/o gastritis due to H. pylori based on pathology 02/15/2017, on clarithromycin based regimen (02/20/2017-), [id number] - h/o bleeding from GT site, and blood clots in tube feed - resolved - recurrent CVA - h/o possible aspiration, improved - encephalopathy due to CVA. CSF from 01/19/2017: WBC=3, RBC=0, glu 53, pro=61, CSF ([place] serology negative, HSV negative, cocci CF negative, encephalitis meningitis panel could not be done due to a lack of sample), serum ([place] PCR negative, crypto antigen negative, cocci CF negative, histo CF negative). my order of crypto in CSF was cancelled and no reason given - h/o bacteremia due to CoNS, probable contaminant. - h/o MARIELA - improved - A fib - h/o DVT - h/o LLE ischemia s/p thrombolysis and subsequent open thrombectomy and fasciotomy at [facility] 09/2015 - h/o thrombus on DEBBIE per records from [facility] - h/o funguria - Lees catheter was changed 02/11/2017 and subsequently removed recommendations: - reviewed Dr. Armenta's note. DEBBIE is a high risk for this Pt. In this case, I recommend empiric endocarditis treatment because Pt had persistent, high grade enterococci bacteremia and h/o rheumatic disease of the mitral valve. I recommend ampicillin and synergistic gentamicin (03/29/2017-). Monitor GFR closely. Pt took vancomycin (03/22/2017-03/28/20174) and levofloxacin previously. recommended duration 4 weeks from the first negative blood cultures, suggested end date ; may switch gentamicin to ceftriaxone after a few weeks. - management d/w Pt's by bedside on 03/31/2017 Problems: Consultation Date/Type/Reason Admit Date/Time Jan 16, 2017 at 15:19 Initial Consult Date 01/17/17 Type of Consultation: ID Referring Provider: LAWRENCE PICKERING 24 HR Interval Summary Subjective hx not possible: pt non-verbal Exam/Review of Systems Vital Signs Vitals Vital Signs Date Time Temp Pulse Resp B/P Pulse Ox O2 Delivery O2 Flow Rate FiO2 04/01/17 15:58 97.6 68 18 114/59 98 04/01/17 13:10 21 Intake and Output 03/31/17 03/31/17 04/01/17 15:00 23:00 07:00 Intake Total 1700 ml 850 ml Balance 1700 ml 850 ml Exam Constitutional: frail, non-verbal Psych: confusion Head: atraumatic, normocephalic Eyes: nl conjunctiva, other (L ptosis) ENMT: nl external ears & nose, nl nasal mucosa & septum Neck: non-tender Respiratory: diminished breath sounds Cardiovascular: nl pulses, regular rate and rhythm Gastrointestinal: non-tender, other (PEG), soft Musculoskeletal: nl extremities to inspection Extremities: normal pulses Neurological: confused, lethargic Skin: nl turgor Results Result Diagram: 03/31/1753003/31/17530 Medications Medications Current Medications Miscellaneous Information 1 ea NOTE XX ; Start 01/17/17 at 10:00 Glucose (Glutose) 15 gm Q15M PRN PO DECREASED GLUCOSE; Start 01/17/17 at 10:00 Glucose (Glutose) 22.5 gm Q15M PRN PO DECREASED GLUCOSE; Start 01/17/17 at 10: 00 Dextrose (D50w Syringe) 25 ml Q15M PRN IV DECREASED GLUCOSE; Start 01/17/17 at 10:00 Dextrose (D50w Syringe) 50 ml Q15M PRN IV DECREASED GLUCOSE; Start 01/17/17 at 10:00 Glucagon (Glucagen) 1 mg Q15M PRN IM DECREASED GLUCOSE; Start 01/17/17 at 10:00 Glucose (Glutose) 15 gm Q15M PRN BUCCAL DECREASED GLUCOSE; Start 01/17/17 at 10 :00 Collagenase (Santyl) 1 applic DAILY TOP Last administered on 04/01/17t 08:09; Admin Dose 1 APPLIC; Start 01/17/17 at 21:00 IV Flush (NS 10 ml) 10 ml PRN PRN IV IV PROTOCOL Last administered on 21:45; Admin Dose 10 ML; Start 01/22/17 at 12:00 Miscellaneous Information ([facility]) This patient dunaway... PRN PRN XX WOUND CARE; Start 01/24/17 at 07:30 Bisacodyl (Dulcolax Supp) 10 mg DAILY PRN [place] CONSTIPATION Last administered on 02/24/17 15:02; Admin Dose 10 MG; Start 01/25/17 at 16:30 Acetaminophen (Tylenol Liquid) 650 mg Q4H PRN NGT PAIN AND OR ELEVATED TEMP Last administered on 03/29/17 16:32; Admin Dose 650 MG; Start 01/26/17 at 09:00 Metoprolol Tartrate (Lopressor) 2.5 mg Q4H PRN IV HR > 110 Last administered on 02/23/17 03:58; Admin Dose 2.5 MG; Start 01/26/17 at 15:00 Nystatin (Nystatin Powder) 1 applic BID TOP Last administered on 04/01/17 08: 09; Admin Dose 1 APPLIC; Start 02/04/17 at 12:00 Eye Lubricant (Artificial Tears Oph) 2 drop Q6H PRN BOTH EYES DRY EYES Last administered on 03/30/17 15:13; Admin Dose 2 DROP; Start 02/13/17 at 15:30 Nystatin (Nystatin Susp) 5 ml QID GTB Last administered on 04/01/17 17:20; Admin Dose 5 ML; Start 02/18/17 at 08:00 Lansoprazole (Prevacid) 30 mg BID@06,18 GTB Last administered on 04/01/17 17: 20; Admin Dose 30 MG; Start 02/18/17 at 18:00 Apixaban (Eliquis) 5 mg BID GTB Last administered on 04/01/17 08:09; Admin Dose 5 MG; Start 02/22/17 at 22:00 Digoxin (Digoxin) 0.125 mg DAILY@13 PO Last administered on 04/01/17 13:13; Admin Dose 0.125 MG; Start 03/12/17 at 13:00 Atenolol (Tenormin) 12.5 mg BID PO Last administered on 04/01/17 08:10; Admin Dose 12.5 MG; Start 03/12/17 at 21:00 Midodrine 10 mg 10 mg Q8 PRN GTB BLOOD PRESSURE SUPPORT Last administered on 04:26; Admin Dose 10 MG; Start 03/18/17 at 19:30 Ampicillin (Ampicillin 2 Gm/ NS (Pmx)) 100 ml @ 100 mls/hr Q4 IVPB Last administered on 04/01/17 17:21; Admin Dose 100 MLS/HR; Start 03/29/17 at 12:00 Gentamicin Sulfate (Gentamicin Iv Per Pharmacy) GENTAMICIN PER PHARM... NOTE XX ; Start 03/29/17 at 10:30 Miscellaneous Information (*Rx Drug Level Order Reminder*) GENTAMICIN TROUGH ON @ 00 ONCE ONCE XX ; Start 04/02/17 at 00:00; Stop 04/02/17 at 00:01 Miscellaneous Information (*Rx Drug Level Order Reminder*) GENTAMICIN PEAK ON @ 02... ONCE ONCE XX ; Start 04/02/17 at 02:00; Stop 04/02/17 at 02:01 TYE STYLES M.D. Apr 01, 2017 18:21
[2017-04-02] VITALS (8 sets, daily range): BP systolic 114–129; BP diastolic 53–84; PULSE 66–78; RESP 18–20
[2017-04-02] MEDS: AMPICILLIN 2 GM/NS (PMX) 100 ML IVPB SCH ×4 (00:25→13:31)
[2017-04-02] MEDS: GENTAMICIN 100 MG/50 ML NS IVPB SCH (01:12)
[2017-04-02] MEDS: LEVALBUTEROL (NEB) 0.63 MG/3 ML AMP HHN SCH ×3 (01:50→13:19)
[2017-04-02] MEDS: LANSOPRAZOLE 30 MG CAP GTB SCH (05:08)
[2017-04-02] MEDS: NYSTATIN SUSP 5 ML CUP GTB SCH ×2 (08:04→13:31)
[2017-04-02] MEDS: ATENOLOL 25 MG TAB PO SCH (08:05)
[2017-04-02] MEDS: NYSTATIN 30 GM POWDER BTL TOP SCH (08:05)
[2017-04-02] MEDS: COLLAGENASE 30 GM TUBE TOP SCH (08:05)
[2017-04-02] MEDS: APIXABAN 5 MG TABLET GTB SCH (08:05)
--- NOTE | 2017-04-02 09:47 | CONS ---
Date/Time of Note Date/Time of Note DATE: 04/02/17 TIME: 09:46 Assessment/Plan Assessment/Plan Chief Complaint/Hosp Course - sepsis due to bacteremia and UTI - enterococcus bacteremia, tip of PICC grew Group B strep. Transthoracic echo on 01/16/2017, 03/25/2017 did not reveal valvular vegetation but difficult to assess MV - h/o rheumatic heart disease (probable rheumatic, severe MS on transthoracic echo) - recurrent UTI due to E. coli, received levo - s/p UTI due to proteus - dysphagia s/p PEG - diffuse moderate degree of gastritis s/p EGD 02/15/2017 - h/o gastritis due to H. pylori based on pathology 02/15/2017, on clarithromycin based regimen (02/20/2017-), [id number] - h/o bleeding from GT site, and blood clots in tube feed - resolved - recurrent CVA - h/o possible aspiration, improved - encephalopathy due to CVA. CSF from 01/19/2017: WBC=3, RBC=0, glu 53, pro=61, CSF ([place] serology negative, HSV negative, cocci CF negative, encephalitis meningitis panel could not be done due to a lack of sample), serum ([place] PCR negative, crypto antigen negative, cocci CF negative, histo CF negative). my order of crypto in CSF was cancelled and no reason given - h/o bacteremia due to CoNS, probable contaminant. - h/o MARIELA - improved - A fib - h/o DVT - h/o LLE ischemia s/p thrombolysis and subsequent open thrombectomy and fasciotomy at [facility] 09/2015 - h/o thrombus on DEBBIE per records from [facility] - h/o funguria - Lees catheter was changed 02/11/2017 and subsequently removed recommendations: - ordered CBC and BMP for today - continue ampicillin and synergistic gentamicin (03/29/2017-). Monitor GFR closely. Pt took vancomycin (03/22/2017-03/28/20174) and levofloxacin previously. recommended duration 4 weeks from the first negative blood cultures, suggested end date ; may switch gentamicin to ceftriaxone after a few weeks. - management d/w Dr. rAmenta Problems: Consultation Date/Type/Reason Admit Date/Time Jan 16, 2017 at 15:19 Initial Consult Date 01/17/17 Type of Consultation: ID Referring Provider: LAWRENCE PICKERING 24 HR Interval Summary Subjective hx not possible: pt non-verbal Exam/Review of Systems Vital Signs Vitals Vital Signs Date Time Temp Pulse Resp B/P Pulse Ox O2 Delivery O2 Flow Rate FiO2 04/02/17 08:01 74 04/02/17 07:56 16 94 21 04/02/17 07:36 97.7 129/84 Intake and Output 04/01/17 04/01/17 04/02/17 15:00 23:00 07:00 Intake Total 1420 ml 1370 ml Balance 1420 ml 1370 ml Exam Constitutional: frail, non-verbal Psych: confusion Head: atraumatic, normocephalic Eyes: nl conjunctiva, nl sclera, other (L ptosis) ENMT: nl external ears & nose Neck: non-tender Respiratory: diminished breath sounds Cardiovascular: nl pulses, regular rate and rhythm Gastrointestinal: non-tender, other (GT), soft Genitourinary - Female: other (FC) Extremities: normal pulses, No edema Neurological: confused, lethargic Skin: nl turgor Results Result Diagram: 03/31/1731 03/31/17530 Results 24 hrs Laboratory Tests Test 04/02/17 00:28 04/02/17 02:15 Gentamicin Level Trough 0.8 L Gentamicin Level Peak 6.6 Medications Medications Current Medications Miscellaneous Information 1 ea NOTE XX ; Start 01/17/17 at 10:00 Glucose (Glutose) 15 gm Q15M PRN PO DECREASED GLUCOSE; Start 01/17/17 at 10:00 Glucose (Glutose) 22.5 gm Q15M PRN PO DECREASED GLUCOSE; Start 01/17/17 at 10: 00 Dextrose (D50w Syringe) 25 ml Q15M PRN IV DECREASED GLUCOSE; Start 01/17/17 at 10:00 Dextrose (D50w Syringe) 50 ml Q15M PRN IV DECREASED GLUCOSE; Start 01/17/17 at 10:00 Glucagon (Glucagen) 1 mg Q15M PRN IM DECREASED GLUCOSE; Start 01/17/17 at 10:00 Glucose (Glutose) 15 gm Q15M PRN BUCCAL DECREASED GLUCOSE; Start 01/17/17 at 10 :00 Collagenase (Santyl) 1 applic DAILY TOP Last administered on 04/02/17 08:05; Admin Dose 1 APPLIC; Start 01/17/17 at 21:00 IV Flush (NS 10 ml) 10 ml PRN PRN IV IV PROTOCOL Last administered on 21:45; Admin Dose 10 ML; Start 01/22/17 at 12:00 Miscellaneous Information (Pending Santyl Order For Wound Care) This patient dunaway... PRN PRN XX WOUND CARE; Start 01/24/17 at 07:30 Bisacodyl (Dulcolax Supp) 10 mg DAILY PRN [place] CONSTIPATION Last administered on 02/24/17 15:02; Admin Dose 10 MG; Start 01/25/17 at 16:30 Acetaminophen (Tylenol Liquid) 650 mg Q4H PRN NGT PAIN AND OR ELEVATED TEMP Last administered on 03/29/17 16:32; Admin Dose 650 MG; Start 01/26/17 at 09:00 Metoprolol Tartrate (Lopressor) 2.5 mg Q4H PRN IV HR > 110 Last administered on 02/23/17 03:58; Admin Dose 2.5 MG; Start 01/26/17 at 15:00 Nystatin (Nystatin Powder) 1 applic BID TOP Last administered on 04/02/17 08: 05; Admin Dose 1 APPLIC; Start 02/04/17 at 12:00 Eye Lubricant (Artificial Tears Oph) 2 drop Q6H PRN BOTH EYES DRY EYES Last administered on 03/30/17 15:13; Admin Dose 2 DROP; Start 02/13/17 at 15:30 Nystatin (Nystatin Susp) 5 ml QID GTB Last administered on 04/02/17 08:04; Admin Dose 5 ML; Start 02/18/17 at 08:00 Lansoprazole (Prevacid) 30 mg BID@06,18 GTB Last administered on 04/02/17 05: 08; Admin Dose 30 MG; Start 02/18/17 at 18:00 Apixaban (Eliquis) 5 mg BID GTB Last administered on 04/02/17 08:05; Admin Dose 5 MG; Start 02/22/17 at 22:00 Digoxin (Digoxin) 0.125 mg DAILY@13 PO Last administered on 04/01/17 13:13; Admin Dose 0.125 MG; Start 03/12/17 at 13:00 Atenolol (Tenormin) 12.5 mg BID PO Last administered on 04/02/17 08:05; Admin Dose 12.5 MG; Start 03/12/17 at 21:00 Midodrine 10 mg 10 mg Q8 PRN GTB BLOOD PRESSURE SUPPORT Last administered on 04:26; Admin Dose 10 MG; Start 03/18/17 at 19:30 Ampicillin (Ampicillin 2 Gm/ NS (Pmx)) 100 ml @ 100 mls/hr Q4 IVPB Last administered on 04/02/17 08:05; Admin Dose 100 MLS/HR; Start 03/29/17 at 12:00 Gentamicin Sulfate (Gentamicin Iv Per Pharmacy) GENTAMICIN PER PHARM... NOTE XX ; Start 03/29/17 at 10:30 TYE STYLES M.D. Apr 02, 2017 09:47
[2017-04-02 11:30] LABS: BASOPHIL # 0.1 10^3/ul (0.0-0.1); EOSINOPHILS # 0.2 10^3/ul (0.0-0.5); EOSINOPHILS % 1.4 % (0.0-7.0); HEMATOCRIT 32.4 % (37.0-47.0); HEMOGLOBIN 10.3 g/dl (12.0-16.0); LYMPHOCYTES # 0.9 10^3/ul (0.8-2.9); LYMPHOCYTES % 8.4 % (15.0-51.0); MEAN CORPUSCULAR HEMOGLOBIN 27.4 pg (29.0-33.0); MEAN CORPUSCULAR HGB CONC 31.8 g/dl (32.0-37.0); MEAN CORPUSCULAR VOLUME 86.2 fl (82.0-101.0); MEAN PLATELET VOLUME 11.6 fl (7.4-10.4); MONOCYTE # 0.6 10^3/ul (0.3-0.9); MONOCYTES % 5.6 % (0.0-11.0); NEUTROPHIL # 9.2 10^3/ul (1.6-7.5); NEUTROPHILS % 82.8 % (39.0-77.0); PLATELET COUNT 467 10^3/UL (140-415); RED BLOOD COUNT 3.76 10^6/ul (4.20-5.40); RED CELL DISTRIBUTION WIDTH 16.2 % (11.5-14.5); WHITE BLOOD COUNT 11.1 10^3/ul (4.8-10.8)
[2017-04-02 11:55] LABS: CALCIUM 9.6 mg/dl (8.4-10.2); CREATININE 0.95 mg/dl (0.44-1.00)
--- NOTE | 2017-04-02 11:58 | PN ---
Date/Time of Note Date/Time of Note DATE: 04/02/17 TIME: 11:56 Assessment/Plan VTE Prophylaxis VTE Prophylaxis Intervention: SCD's Lines/Catheters IV [facility] Type (from [facility] Peripheral IV Urinary Cath still in place: No Assessment/Plan Chief Complaint/Hosp Course Patient remains medically stable, discharge planning. Assessment/Plan - Enterococcus bacteremia, PICC line DC'd. No apparent vegetation per TTE. Continue antibiotics per ID. Patient is continued on ampicillin and gentamicin until April 23. - Bacteremia and recurrent UTI versus colonization. Dr. Hiro villeda is following in ID consultation. - Bilateral thalamic infarctions. Dr. Ramirez is following in neurology consultation. - Gastritis due to H. pylori, status post EGD, completed therapy per H. pylori eradication. - Dysphagia, status post G-tube placement by Dr. Garcia. - Atrial fibrillation with rapid ventricular response. Dr. Armenta is following and cardiology consultation. Continue Eliquis. Digoxin and atenolol. - Thrombosis of the bilateral cephalic veins. - Acute kidney injury, resolved. - History of CVA - History of hyperlipidemia Further recommendations based on clinical course. Plan of care discussed with Dr. Valdovinos. Problems: Exam/Review of Systems Vital Signs Vitals Vital Signs Date Time Temp Pulse Resp B/P Pulse Ox O2 Delivery O2 Flow Rate FiO2 04/02/17 11:27 97.9 70 20 122/74 98 04/02/17 07:56 21 Intake and Output 04/01/17 04/01/17 04/02/17 15:00 23:00 07:00 Intake Total 1420 ml 1370 ml Balance 1420 ml 1370 ml Exam Constitutional: awake Respiratory: normal air movement Cardiovascular: irregular rhythm Gastrointestinal: non-tender, other (G-tube), soft Genitourinary - Female: other (Lees catheter) Musculoskeletal: muscle weakness Neurological: focal weakness Results Result Diagram: 04/02/17 1042 03/31/17 0531 Results 24 hrs Laboratory Tests Test 04/02/17 00:28 04/02/17 02:15 04/02/17 10:42 Gentamicin Level Trough 0.8 L Gentamicin Level Peak 6.6 White Blood Count 11.1 H Red Blood Count 3.76 L Hemoglobin 10.3 L Hematocrit 32.4 L Mean Corpuscular Volume 86.2 Mean Corpuscular Hemoglobin 27.4 L Mean Corpuscular Hemoglobin Concent 31.8 L Red Cell Distribution Width 16.2 H Platelet Count 467 H Mean Platelet Volume 11.6 H Neutrophils % 82.8 H Lymphocytes % 8.4 L Monocytes % 5.6 Eosinophils % 1.4 Basophils % 1.0 Nucleated Red Blood Cells % 0.0 Neutrophils # 9.2 H Lymphocytes # 0.9 Monocytes # 0.6 Eosinophils # 0.2 Basophils # 0.1 Nucleated Red Blood Cells # 0.0 Medications Medications Current Medications Miscellaneous Information 1 ea NOTE XX ; Start 01/17/17 at 10:00 Glucose (Glutose) 15 gm Q15M PRN PO DECREASED GLUCOSE; Start 01/17/17 at 10:00 Glucose (Glutose) 22.5 gm Q15M PRN PO DECREASED GLUCOSE; Start 01/17/17 at 10: 00 Dextrose (D50w Syringe) 25 ml Q15M PRN IV DECREASED GLUCOSE; Start 01/17/17 at 10:00 Dextrose (D50w Syringe) 50 ml Q15M PRN IV DECREASED GLUCOSE; Start 01/17/17 at 10:00 Glucagon (Glucagen) 1 mg Q15M PRN IM DECREASED GLUCOSE; Start 01/17/17 at 10:00 Glucose (Glutose) 15 gm Q15M PRN BUCCAL DECREASED GLUCOSE; Start 01/17/17 at 10 :00 Collagenase (Santyl) 1 applic DAILY TOP Last administered on 04/02/17 08:05; Admin Dose 1 APPLIC; Start 01/17/17 at 21:00 IV Flush (NS 10 ml) 10 ml PRN PRN IV IV PROTOCOL Last administered on 21:45; Admin Dose 10 ML; Start 01/22/17 at 12:00 Miscellaneous Information (Pending Santyl Order For Wound Care) This patient dunaway... PRN PRN XX WOUND CARE; Start 01/24/17 at 07:30 Bisacodyl (Dulcolax Supp) 10 mg DAILY PRN [place] CONSTIPATION Last administered on 02/24/17 15:02; Admin Dose 10 MG; Start 01/25/17 at 16:30 Acetaminophen (Tylenol Liquid) 650 mg Q4H PRN NGT PAIN AND OR ELEVATED TEMP Last administered on 03/29/17 16:32; Admin Dose 650 MG; Start 01/26/17 at 09:00 Metoprolol Tartrate (Lopressor) 2.5 mg Q4H PRN IV HR > 110 Last administered on 02/23/17 03:58; Admin Dose 2.5 MG; Start 01/26/17 at 15:00 Nystatin (Nystatin Powder) 1 applic BID TOP Last administered on 04/02/17 08: 05; Admin Dose 1 APPLIC; Start 02/04/17 at 12:00 Eye Lubricant (Artificial Tears Oph) 2 drop Q6H PRN BOTH EYES DRY EYES Last administered on 03/30/17 15:13; Admin Dose 2 DROP; Start 02/13/17 at 15:30 Nystatin (Nystatin Susp) 5 ml QID GTB Last administered on 04/02/17 08:04; Admin Dose 5 ML; Start 02/18/17 at 08:00 Lansoprazole (Prevacid) 30 mg BID@06,18 GTB Last administered on 04/02/17 05: 08; Admin Dose 30 MG; Start 02/18/17 at 18:00 Apixaban (Eliquis) 5 mg BID GTB Last administered on 04/02/17 08:05; Admin Dose 5 MG; Start 02/22/17 at 22:00 Digoxin (Digoxin) 0.125 mg DAILY@13 PO Last administered on 04/01/17 13:13; Admin Dose 0.125 MG; Start 03/12/17 at 13:00 Atenolol (Tenormin) 12.5 mg BID PO Last administered on 04/02/17 08:05; Admin Dose 12.5 MG; Start 03/12/17 at 21:00 Midodrine 10 mg 10 mg Q8 PRN GTB BLOOD PRESSURE SUPPORT Last administered on 04:26; Admin Dose 10 MG; Start 03/18/17 at 19:30 Ampicillin (Ampicillin 2 Gm/ NS (Pmx)) 100 ml @ 100 mls/hr Q4 IVPB Last administered on 04/02/17 08:05; Admin Dose 100 MLS/HR; Start 03/29/17 at 12:00 Gentamicin Sulfate (Gentamicin Iv Per Pharmacy) GENTAMICIN PER PHARM... NOTE XX ; Start 03/29/17 at 10:30 LAWRENCE PICKERING Apr 02, 2017 11:58
--- NOTE | 2017-04-02 12:04 | CONS ---
Date/Time of Note Date/Time of Note DATE: 04/02/17 TIME: 12:01 Assessment/Plan Assessment/Plan Chief Complaint/Hosp Course - sepsis due to bacteremia and UTI - enterococcus bacteremia, tip of PICC grew Group B strep. Transthoracic echo on 01/16/2017, 03/25/2017 did not reveal valvular vegetation but difficult to assess MV - h/o rheumatic heart disease (probable rheumatic, severe MS on transthoracic echo) - recurrent UTI due to E. coli, received levo - s/p UTI due to proteus - dysphagia s/p PEG - diffuse moderate degree of gastritis s/p EGD 02/15/2017 - h/o gastritis due to H. pylori based on pathology 02/15/2017, on clarithromycin based regimen (02/20/2017-), [id number] - h/o bleeding from GT site, and blood clots in tube feed - resolved - recurrent CVA - h/o possible aspiration, improved - encephalopathy due to CVA. CSF from 01/19/2017: WBC=3, RBC=0, glu 53, pro=61, CSF ([place] serology negative, HSV negative, cocci CF negative, encephalitis meningitis panel could not be done due to a lack of sample), serum ([place] PCR negative, crypto antigen negative, cocci CF negative, histo CF negative). my order of crypto in CSF was cancelled and no reason given - h/o bacteremia due to CoNS, probable contaminant. - h/o MARIELA - improved - A fib - h/o DVT - h/o LLE ischemia s/p thrombolysis and subsequent open thrombectomy and fasciotomy at [facility] 09/2015 - h/o thrombus on DEBBIE per records from [facility] - h/o funguria - Lees catheter was changed 02/11/2017 and subsequently removed REVISED recommendations: - continue ampicillin and synergistic gentamicin (03/29/2017-). Monitor GFR closely. Pt took vancomycin (03/22/2017-03/28/20174) and levofloxacin previously. Total duration of antibiotics through 04/23/2017 - if Pt gets transferred to SNF today, I recommend that Pt remain ampicillin; and switch gentamicin to ceftriaxone after 04/12/2017. - management d/w Dr. Armenta, Pt's RN Problems: Consultation Date/Type/Reason Admit Date/Time Jan 16, 2017 at 15:19 Initial Consult Date 01/17/17 Type of Consultation: ID Referring Provider: LAWRENCE PICKERING Exam/Review of Systems Vital Signs Vitals Vital Signs Date Time Temp Pulse Resp B/P Pulse Ox O2 Delivery O2 Flow Rate FiO2 04/02/17 11:27 97.9 70 20 122/74 98 04/02/17 07:56 21 Intake and Output 04/01/17 04/01/17 04/02/17 15:00 23:00 07:00 Intake Total 1420 ml 1370 ml Balance 1420 ml 1370 ml Results Result Diagram: 04/02/17 1042 04/02/17 1042 Results 24 hrs Laboratory Tests Test 04/02/17 00:28 04/02/17 02:15 04/02/17 10:42 Gentamicin Level Trough 0.8 L Gentamicin Level Peak 6.6 White Blood Count 11.1 H Red Blood Count 3.76 L Hemoglobin 10.3 L Hematocrit 32.4 L Mean Corpuscular Volume 86.2 Mean Corpuscular Hemoglobin 27.4 L Mean Corpuscular Hemoglobin Concent 31.8 L Red Cell Distribution Width 16.2 H Platelet Count 467 H Mean Platelet Volume 11.6 H Neutrophils % 82.8 H Lymphocytes % 8.4 L Monocytes % 5.6 Eosinophils % 1.4 Basophils % 1.0 Nucleated Red Blood Cells % 0.0 Neutrophils # 9.2 H Lymphocytes # 0.9 Monocytes # 0.6 Eosinophils # 0.2 Basophils # 0.1 Nucleated Red Blood Cells # 0.0 Sodium Level 141 Potassium Level 4.0 Chloride Level 108 Carbon Dioxide Level 25 Anion Gap 12 Blood Urea Nitrogen 19 Creatinine 0.95 Glucose Level 119 Calcium Level 9.6 Medications Medications Current Medications Miscellaneous Information 1 ea NOTE XX ; Start 01/17/17 at 10:00 Glucose (Glutose) 15 gm Q15M PRN PO DECREASED GLUCOSE; Start 01/17/17 at 10:00 Glucose (Glutose) 22.5 gm Q15M PRN PO DECREASED GLUCOSE; Start 01/17/17 at 10: 00 Dextrose (D50w Syringe) 25 ml Q15M PRN IV DECREASED GLUCOSE; Start 01/17/17 at 10:00 Dextrose (D50w Syringe) 50 ml Q15M PRN IV DECREASED GLUCOSE; Start 01/17/17 at 10:00 Glucagon (Glucagen) 1 mg Q15M PRN IM DECREASED GLUCOSE; Start 01/17/17 at 10:00 Glucose (Glutose) 15 gm Q15M PRN BUCCAL DECREASED GLUCOSE; Start 01/17/17 at 10 :00 Collagenase (Santyl) 1 applic DAILY TOP Last administered on 04/02/17 08:05; Admin Dose 1 APPLIC; Start 01/17/17 at 21:00 IV Flush (NS 10 ml) 10 ml PRN PRN IV IV PROTOCOL Last administered on 21:45; Admin Dose 10 ML; Start 01/22/17 at 12:00 Miscellaneous Information (Pending Santyl Order For Wound Care) This patient dunaway... PRN PRN XX WOUND CARE; Start 01/24/17 at 07:30 Bisacodyl (Dulcolax Supp) 10 mg DAILY PRN [place] CONSTIPATION Last administered on 02/24/17 15:02; Admin Dose 10 MG; Start 01/25/17 at 16:30 Acetaminophen (Tylenol Liquid) 650 mg Q4H PRN NGT PAIN AND OR ELEVATED TEMP Last administered on 03/29/17 16:32; Admin Dose 650 MG; Start 01/26/17 at 09:00 Metoprolol Tartrate (Lopressor) 2.5 mg Q4H PRN IV HR > 110 Last administered on 02/23/17 03:58; Admin Dose 2.5 MG; Start 01/26/17 at 15:00 Nystatin (Nystatin Powder) 1 applic BID TOP Last administered on 04/02/17 08: 05; Admin Dose 1 APPLIC; Start 02/04/17 at 12:00 Eye Lubricant (Artificial Tears Oph) 2 drop Q6H PRN BOTH EYES DRY EYES Last administered on 03/30/17 15:13; Admin Dose 2 DROP; Start 02/13/17 at 15:30 Nystatin (Nystatin Susp) 5 ml QID GTB Last administered on 04/02/17 08:04; Admin Dose 5 ML; Start 02/18/17 at 08:00 Lansoprazole (Prevacid) 30 mg BID@06,18 GTB Last administered on 04/02/17 05: 08; Admin Dose 30 MG; Start 02/18/17 at 18:00 Apixaban (Eliquis) 5 mg BID GTB Last administered on 04/02/17 08:05; Admin Dose 5 MG; Start 02/22/17 at 22:00 Digoxin (Digoxin) 0.125 mg DAILY@13 PO Last administered on 04/01/17 13:13; Admin Dose 0.125 MG; Start 03/12/17 at 13:00 Atenolol (Tenormin) 12.5 mg BID PO Last administered on 04/02/17 08:05; Admin Dose 12.5 MG; Start 03/12/17 at 21:00 Midodrine 10 mg 10 mg Q8 PRN GTB BLOOD PRESSURE SUPPORT Last administered on 04:26; Admin Dose 10 MG; Start 03/18/17 at 19:30 Ampicillin (Ampicillin 2 Gm/ NS (Pmx)) 100 ml @ 100 mls/hr Q4 IVPB Last administered on 04/02/17 08:05; Admin Dose 100 MLS/HR; Start 03/29/17 at 12:00 Gentamicin Sulfate (Gentamicin Iv Per Pharmacy) GENTAMICIN PER PHARM... NOTE XX ; Start 03/29/17 at 10:30 TYE STYLES M.D. Apr 02, 2017 12:04
--- NOTE | 2017-04-02 13:08 | CONS ---
Date/Time of Note Date/Time of Note DATE: 04/02/17 TIME: 13:05 Assessment/Plan Assessment/Plan Chief Complaint/Hosp Course IMP: 1. AF-mainly rate controlled/Trop negative x 3. Had pause x 3.7 seconds 01/30 on standing IVP BB. Now back in tele 2.Hypotension-on midodrine 3.encephalopathy/ams-slowly improving 4.coagulopathy-now on eliquis 5. Acute Renal failure-Now resolved 6.Leukocytosis 7. Cardiomyopathy-EF 45% 8. Cephalic vein thrombosis 9. Dysphagia s/p PEG 10. H Pylori 11.Bacteremia-recurrent. s/p repeat TTE with no definite vegetations but thickening of mitral valve appararatus(secondary to MS) and thus cannot completely rule out vegetationi Recc: -Tele -serial ecg's -Cont. Eliquis -Continue low dose BB as tolerated only with atenolol -Continue abx's -Follow MS closely which has had some significant improvement -Continue midodrine for low BP as necessary -Continue PPI -Continue PO digoxin -S/P repeat TTE with no definite vegetations but cannot completely rule out and thus will discuss - now receiving empiric treatment for endocarditis and have discussed with ID -No definite indication for PPM at this time Problems: Consultation Date/Type/Reason Admit Date/Time Jan 16, 2017 at 15:19 Initial Consult Date 01/17/17 Type of Consultation: cardiology Reason for Consultation AF Referring Provider: LAWRENCE PICKERING Exam/Review of Systems Vital Signs Vitals Vital Signs Date Time Temp Pulse Resp B/P Pulse Ox O2 Delivery O2 Flow Rate FiO2 04/02/17 12:04 66 04/02/17 11:27 97.9 20 122/74 98 04/02/17 07:56 21 Intake and Output 04/01/17 04/01/17 04/02/17 15:00 23:00 07:00 Intake Total 1420 ml 1370 ml Balance 1420 ml 1370 ml Exam Review of Systems: CONSTITUTIONAL: No fevers, chills. PULMONARY: No sob CARDIOVASCULAR: No chest pain/palpitations GASTROINTESTINAL: No nausea/vomiting. GENITOURINARY: No hematuria/dysuria. MUSCULOSKELETAL: No myagias/arthalgias. PSYCHIATRIC: The patient denies depression. NEUROLOGIC: No weakness Constitutional: alert Psych: no complaints Head: normocephalic ENMT: mucosa pink and moist Neck: jvd (9 cm water), supple Respiratory: diminished breath sounds Cardiovascular: regular rate and rhythm Gastrointestinal: non-tender, soft Musculoskeletal: muscle tone (normal) Extremities: edema (none) Neurological: other (no focal deficits) Results Result Diagram: 04/02/17 1042 04/02/17 1042 Results 24 hrs Laboratory Tests Test 04/02/17 00:28 04/02/17 02:15 04/02/17 10:42 Gentamicin Level Trough 0.8 L Gentamicin Level Peak 6.6 White Blood Count 11.1 H Red Blood Count 3.76 L Hemoglobin 10.3 L Hematocrit 32.4 L Mean Corpuscular Volume 86.2 Mean Corpuscular Hemoglobin 27.4 L Mean Corpuscular Hemoglobin Concent 31.8 L Red Cell Distribution Width 16.2 H Platelet Count 467 H Mean Platelet Volume 11.6 H Neutrophils % 82.8 H Lymphocytes % 8.4 L Monocytes % 5.6 Eosinophils % 1.4 Basophils % 1.0 Nucleated Red Blood Cells % 0.0 Neutrophils # 9.2 H Lymphocytes # 0.9 Monocytes # 0.6 Eosinophils # 0.2 Basophils # 0.1 Nucleated Red Blood Cells # 0.0 Sodium Level 141 Potassium Level 4.0 Chloride Level 108 Carbon Dioxide Level 25 Anion Gap 12 Blood Urea Nitrogen 19 Creatinine 0.95 Glucose Level 119 Calcium Level 9.6 Medications Medications Current Medications Miscellaneous Information 1 ea NOTE XX ; Start 01/17/17 at 10:00 Glucose (Glutose) 15 gm Q15M PRN PO DECREASED GLUCOSE; Start 01/17/17 at 10:00 Glucose (Glutose) 22.5 gm Q15M PRN PO DECREASED GLUCOSE; Start 01/17/17 at 10: 00 Dextrose (D50w Syringe) 25 ml Q15M PRN IV DECREASED GLUCOSE; Start 01/17/17 at 10:00 Dextrose (D50w Syringe) 50 ml Q15M PRN IV DECREASED GLUCOSE; Start 01/17/17 at 10:00 Glucagon (Glucagen) 1 mg Q15M PRN IM DECREASED GLUCOSE; Start 01/17/17 at 10:00 Glucose (Glutose) 15 gm Q15M PRN BUCCAL DECREASED GLUCOSE; Start 01/17/17 at 10 :00 Collagenase (Santyl) 1 applic DAILY TOP Last administered on 04/02/17 08:05; Admin Dose 1 APPLIC; Start 01/17/17 at 21:00 IV Flush (NS 10 ml) 10 ml PRN PRN IV IV PROTOCOL Last administered on 21:45; Admin Dose 10 ML; Start 01/22/17 at 12:00 Miscellaneous Information (Pending Santyl Order For Wound Care) This patient dunaway... PRN PRN XX WOUND CARE; Start 01/24/17 at 07:30 Bisacodyl (Dulcolax Supp) 10 mg DAILY PRN LA CONSTIPATION Last administered on 02/24/17 15:02; Admin Dose 10 MG; Start 01/25/17 at 16:30 Acetaminophen (Tylenol Liquid) 650 mg Q4H PRN NGT PAIN AND OR ELEVATED TEMP Last administered on 03/29/17 16:32; Admin Dose 650 MG; Start 01/26/17 at 09:00 Metoprolol Tartrate (Lopressor) 2.5 mg Q4H PRN IV HR > 110 Last administered on 02/23/17 03:58; Admin Dose 2.5 MG; Start 01/26/17 at 15:00 Nystatin (Nystatin Powder) 1 applic BID TOP Last administered on 04/02/17 08: 05; Admin Dose 1 APPLIC; Start 02/04/17 at 12:00 Eye Lubricant (Artificial Tears Oph) 2 drop Q6H PRN BOTH EYES DRY EYES Last administered on 03/30/17 15:13; Admin Dose 2 DROP; Start 02/13/17 at 15:30 Nystatin (Nystatin Susp) 5 ml QID GTB Last administered on 04/02/17 08:04; Admin Dose 5 ML; Start 02/18/17 at 08:00 Lansoprazole (Prevacid) 30 mg BID@06,18 GTB Last administered on 04/02/17 05: 08; Admin Dose 30 MG; Start 02/18/17 at 18:00 Apixaban (Eliquis) 5 mg BID GTB Last administered on 04/02/17 08:05; Admin Dose 5 MG; Start 02/22/17 at 22:00 Digoxin (Digoxin) 0.125 mg DAILY@13 PO Last administered on 04/01/17 13:13; Admin Dose 0.125 MG; Start 03/12/17 at 13:00 Atenolol (Tenormin) 12.5 mg BID PO Last administered on 04/02/17 08:05; Admin Dose 12.5 MG; Start 03/12/17 at 21:00 Midodrine 10 mg 10 mg Q8 PRN GTB BLOOD PRESSURE SUPPORT Last administered on 04:26; Admin Dose 10 MG; Start 03/18/17 at 19:30 Ampicillin (Ampicillin 2 Gm/ NS (Pmx)) 100 ml @ 100 mls/hr Q4 IVPB Last administered on 04/02/17 08:05; Admin Dose 100 MLS/HR; Start 03/29/17 at 12:00 Gentamicin Sulfate (Gentamicin Iv Per Pharmacy) GENTAMICIN PER PHARM... NOTE XX ; Start 03/29/17 at 10:30 MINOO RYE Apr 02, 2017 13:08
[2017-04-02] MEDS: DIGOXIN 0.125 MG TAB PO SCH (13:32)
== END 2017-04-02 15:20 | DRG 64 ==
LOC: E/R 11:11 → MS4 15:19 → ICU 16:50 → TEL 01-23 15:46 → MS2 03-17 10:20 → MS4 03-18 03:52 → TEL 03-18 04:06 → MS2 03-18 05:02 → TEL 03-18 05:08
PROVIDERS: ADMIT Internal Medicine; ATTEND Internal Medicine
PROC: 009U3ZX Drainage of Spinal Canal, Percutaneous Approach, Diagnostic (ICD-10-PCS; 2017-01-19)
PROC: B01BYZZ Fluoroscopy of Spinal Cord using Other Contrast (ICD-10-PCS; 2017-01-19)
PROC: 02HV33Z Insertion of Infusion Device into Superior Vena Cava, Percutaneous Approach (ICD-10-PCS; 2017-01-22)
PROC: 0DB68ZX Excision of Stomach, Via Natural or Artificial Opening Endoscopic, Diagnostic (ICD-10-PCS; 2017-02-15)
PROC: 0DB68ZX Excision of Stomach, Via Natural or Artificial Opening Endoscopic, Diagnostic (ICD-10-PCS; 2017-02-15)
PROC: 0DH63UZ Insertion of Feeding Device into Stomach, Percutaneous Approach (ICD-10-PCS; principal; 2017-03-04)
PROC: B24BZZ4 Ultrasonography of Heart with Aorta, Transesophageal (ICD-10-PCS; 2017-03-31)
DX: I63.8 Other cerebral infarction (principal); A41.81 Sepsis due to Enterococcus; G93.1 Anoxic brain damage, not elsewhere classified; J18.9 Pneumonia, unspecified organism; N17.9 Acute kidney failure, unspecified; R13.10 Dysphagia, unspecified; D68.8 Other specified coagulation defects; A40.1 Sepsis due to streptococcus, group B; R56.9 Unspecified convulsions; E51.2 Wernicke's encephalopathy; E87.2 Acidosis; I42.9 Cardiomyopathy, unspecified; I82.613 Acute embolism and thrombosis of superficial veins of upper extremity, bilateral; N39.0 Urinary tract infection, site not specified; K92.2 Gastrointestinal hemorrhage, unspecified; T80.211A Bloodstream infection due to central venous catheter, initial encounter; I48.2 Chronic atrial fibrillation; R73.9 Hyperglycemia, unspecified; I10 Essential (primary) hypertension; D64.9 Anemia, unspecified; D72.829 Elevated white blood cell count, unspecified; E78.5 Hyperlipidemia, unspecified; I09.9 Rheumatic heart disease, unspecified; B96.4 Proteus (mirabilis) (morganii) as the cause of diseases classified elsewhere; I69.322 Dysarthria following cerebral infarction; B96.81 Helicobacter pylori [H. pylori] as the cause of diseases classified elsewhere; B95.7 Other staphylococcus as the cause of diseases classified elsewhere; B96.20 Unspecified Escherichia coli [E. coli] as the cause of diseases classified elsewhere; Z86.718 Personal history of other venous thrombosis and embolism; Z79.01 Long term (current) use of anticoagulants; B95.2 Enterococcus as the cause of diseases classified elsewhere; B95.1 Streptococcus, group B, as the cause of diseases classified elsewhere; G40.909 Epilepsy, unspecified, not intractable, without status epilepticus; K29.60 Other gastritis without bleeding
CPT/HCPCS: 36415; 36569; 36600; 70450; 70544; 70546; 70551; 71010; 74230; 76937; 80048; 80053; 80061; 80170; 80202; 80306; 80307; 81001; 81003; 82140; 82550; 82553; 82565; 82607; 82803; 82945; 82962; 83036; 83090; 83605; 83735; 83935; 84100; 84145; 84157; 84300; 84425; 84439; 84443; 84484; 84520; 85025; 85049; 85302; 85305; 85610; 85613; 85651; 85670; 85730; 86038; 86160; 86403; 86635; 86641; 86698; 86703; 86788; 86789; 87040; 87070; 87081; 87086; 87102; 87400; 87529; 88305; 88312; 89051; 92507; 92526; 92610; 92611; 93005; 93306; 93880; 93926; 93970; 93971; 94640; 94664; 95819; 97003; 97110; 97116; 97162; 97167; 97530; 97535; C9113; J0133; J0290; J0690; J0696; J1580; J1650; J1815; J1953; J1956; J2185; J2310; J2370; J2543; J3370; J3411; J3475; J3480; J7030; J7040; J7042; J7050; P9612

== ENCOUNTER 2017-04-25 00:51 | Inpatient (IN) | payer OTHER ==
[~2017-04-25] VITALS: Ht 160 cm; Wt 62.0 kg
[~2017-04-25 00:51] MED LIST changes: -NALOXONE (0.4 MG/ML) INJ ONE
--- NOTE | 2017-04-25 01:23 | ERD ---
ER Documentation Chief Complaint Chief Complaint JOCY FROM [facility] HPI Patient is a 61-year-old female sent from [facility] for fever of 100.8 Fahrenheit today. The patient just finished a 21 day course of antibiotics for bacteremia. The patient is nonverbal from her recent stroke and cannot provide history. The patient's son states that the patient has had 2-3 days of coughing and increased work of breathing. There is no report of vomiting. ROS All systems reviewed and are negative except as per history of present illness. Medications Home Meds Reported Medications Warfarin Sodium* (Coumadin*) 5 Mg Tablet, 5 MG PO Q S,T,W,Th,Sat 06/19/11 Warfarin Sodium* (Coumadin*) 2.5 Mg Tablet, 2.5 MG PO Q WEDNESDAY & Wednesday06/19/11 Metoprolol (Lopressor) 100 Mg Tablet, 100 MG PO BID 06/19/11 Penicillin V Potassium* (Penicillin V K*) 50 Mg/Ml Susp, 250 MG PO BID 06/19/11 Penicillin V Potassium* (Penicillin V K*) 250 Mg Tab 06/18/11 Metoprolol Tartrate* (Lopressor*) 25 Mg Tab 06/18/11 Warfarin Sodium* (Coumadin*) 1 Mg Tablet 06/18/11 Allergies Allergies: Coded Allergies: No Known Allergy (Unverified , 03/04/17) PMhx/Soc Past medical history: - Enterococcus bacteremia - Bilateral thalamic infarctions - Gastritis due to H. pylori - Dysphagia, status post G-tube placement - Atrial fibrillation with rapid ventricular response On Eliquis, digoxin and atenolol. - Thrombosis of the bilateral cephalic veins. - Acute kidney injury, resolved. - History of CVA - Hyperlipidemia Past surgical history: G tube Social history: Lives in [facility] since stroke History of Surgery: Yes (Fasciotomy of LLE and IVC Filter) Anesthesia Reaction: No Hx Respiratory Disorders: No Hx Psychiatric Problems: No Hx Miscellaneous Medical Probl: Yes (controled afib, encephalopathy, CVA, dysarthria, s/p IVC filter) Hx Alcohol Use: No Hx Substance Use: No Hx Tobacco Use: No FmHx Noncontributory Physical Exam Vitals Vital Signs Date Time Temp Pulse Resp B/P Pulse Ox O2 Delivery O2 Flow Rate FiO2 04/25/17 05:00 103.1 97 28 127/81 98 Room Air 04/25/17 04:35 103.5 100 28 137/61 100 Room Air 04/25/17 03:00 93 30 111/65 100 Room Air 04/25/17 01:18 98.7 105 24 120/67 98 Physical Exam Const: Alert, no acute distress Head: Atraumatic Eyes: Normal Conjunctiva, No pallor, no icterus ENT: Normal External Ears, Nose and Mouth. Mucous membranes moist Neck: Full range of motion..~ No meningismus. Resp: Clear to auscultation bilaterally, No wheezes, no rales. Tachypnea to mid 30s Cardio: Mild tachycardia, irregularly irregular rhythm, no murmurs Abd: Soft, non tender, non distended. Skin: No petechiae or rashes Back: No midline or flank tenderness Ext: No cyanosis, or edema Neur: Awake and alert, Right-sided facial droop and right hemiparesis Psych: Normal Mood and Affect Result Diagram: 04/25/1721404/25/17214 Results 24 hrs Laboratory Tests Test 04/25/17 02:15 White Blood Count 13.610^3/ul Red Blood Count 4.2210^6/ul Hemoglobin 11.1g/dl Hematocrit 36.4% Mean Corpuscular Volume 86.3fl Mean Corpuscular Hemoglobin 26.3pg Mean Corpuscular Hemoglobin Concent 30.5g/dl Red Cell Distribution Width 17.2% Platelet Count 36419^3/UL Mean Platelet Volume 12.6fl Neutrophils % 83.8% Lymphocytes % 8.4% Monocytes % 4.1% Eosinophils % 2.6% Basophils % 0.7% Nucleated Red Blood Cells % 0.0/100WBC Neutrophils # 11.410^3/ul Lymphocytes # 1.110^3/ul Monocytes # 0.610^3/ul Eosinophils # 0.410^3/ul Basophils # 0.110^3/ul Nucleated Red Blood Cells # 0.010^3/ul Prothrombin Time 16.3Sec Prothrombin Time Ratio 1.3 INR International Normalized Ratio 1.30 Activated Partial Thromboplast Time 35.4Sec Urine Color YELLOW Urine Clarity CLEAR Urine pH 6.0 Urine Specific [place] 1.015 Urine Ketones NEGATIVEmg/dL Urine Nitrite NEGATIVEmg/dL Urine Bilirubin NEGATIVEmg/dL Urine Urobilinogen NEGATIVEmg/dL Urine Leukocyte Esterase NEGATIVELeu/ul Urine Microscopic RBC 2/HPF Urine Microscopic WBC 4/HPF Urine Granular Casts FEW/HPF Urine Hemoglobin NEGATIVEmg/dL Urine Glucose NEGATIVEmg/dL Urine Total Protein 1+mg/dl Sodium Level 146mmol/L Potassium Level 3.8mmol/L Chloride Level 110mmol/L Carbon Dioxide Level 21mmol/L Anion Gap 19 Blood Urea Nitrogen 16mg/dl Creatinine 0.98mg/dl Glucose Level 91mg/dl Lactic Acid Level 1.3mmol/L Calcium Level 9.6mg/dl Total Bilirubin 0.3mg/dl Direct Bilirubin 0.00mg/dl Indirect Bilirubin 0.3mg/dl Aspartate Amino Transf (AST/SGOT) 27IU/L Alanine Aminotransferase (ALT/SGPT) 32IU/L Alkaline Phosphatase 113IU/L Troponin I 0.017ng/ml Total Protein 8.0g/dl Albumin 4.3g/dl Globulin 3.70g/dl Albumin/Globulin Ratio 1.16 Current Medications Medications (Trade) Dose Ordered Sig/Fabián Route PRN Reason Start Time Stop Time Status Last Admin Dose Admin Sodium Chloride 1800 ml 1,800 ml BOLUS OVER 2 HOURS STAT IV* 04/25/17 01:30 04/25/17 01:32 DC 04/25/17 02:47 Cefepime HCl 50 ml @ 100 mls/hr ONCE STAT IVPB 04/25/17 01:30 04/25/17 01:59 DC 04/25/17 02:46 Vancomycin HCl (Vancocin) 250 ml @ 125 mls/hr ONCE ONCE IVPB 04/25/17 01:30 04/25/17 03:29 DC 04/25/17 04:18 Acetaminophen (Tylenol Supp) 650 mg ONCE ONCE [place] 04/25/17 05:00 04/25/17 05:01 DC 04/25/17 04:53 Ondansetron HCl (Zofran Inj) 4 mg ER BRIDGE PRN IV NAUSEA AND/OR VOMITING 04/25/17 05:00 04/26/17 04:59 Acetaminophen (Tylenol Tab) 650 mg ER BRIDGE PRN PO MILD PAIN/FEVER 04/25/17 05:00 04/26/17 04:59 Procedures/MDM EKG read by me: Time 216, rate 96 Rhythm: Atrial fibrillation [place]: Normal Intervals: Normal ST-T waves: no ischemic changes Ectopy: No Q-waves: No Impression: Atrial fibrillation, no ischemia MDM: Patient is a 61-year-old female with recent complicated hospital course including recent stroke and bacteremia that was attributed to UTI. She presents today with fever from [facility] after being on antibiotics ( ampicillin and ceftriaxone) for 3 weeks. In the ER, the patient is found to have fever to 103.5. She does not have tachycardia, but does have tachypnea. There is no hypoxia, and chest x-ray does not show infiltrate. An influenza swab is pending. Chest x-ray suggests pulmonary vascular congestion; however, given concern for sepsis, the patient was given weight-based IV fluids and empiric antibiotics. Urinalysis was not suggestive of UTI. There is no evidence of soft tissue infection. Case was discussed with Dr. Valdovinos,, and the patient will be admitted for further septic workup. Lactic acid was not elevated. Urine cultures were sent. Departure Diagnosis: Primary Impression: Sepsis Sepsis type: sepsis due to unspecified organism Qualified Code: A41.9 - Sepsis, due to unspecified organism Additional Impression: Atrial fibrillation Atrial fibrillation type: chronic Qualified Code: I48.2 - Chronic atrial fibrillation Condition: ANTHONY Michele MD Apr 25, 2017 01:22
--- NOTE | 2017-04-25 01:23 | ERD ---
ER Documentation Chief Complaint Chief Complaint JOCY FROM [facility] HPI Patient is a 61-year-old female sent from [facility] for fever of 100.8 Fahrenheit today. The patient just finished a 21 day course of antibiotics for bacteremia. The patient is nonverbal from her recent stroke and cannot provide history. The patient's son states that the patient has had 2-3 days of coughing and increased work of breathing. There is no report of vomiting. ROS All systems reviewed and are negative except as per history of present illness. Medications Home Meds Reported Medications Warfarin Sodium* (Coumadin*) 5 Mg Tablet, 5 MG PO Q S,T,W,Th,Sat 06/19/11 Warfarin Sodium* (Coumadin*) 2.5 Mg Tablet, 2.5 MG PO Q WEDNESDAY & Wednesday06/19/11 Metoprolol (Lopressor) 100 Mg Tablet, 100 MG PO BID 06/19/11 Penicillin V Potassium* (Penicillin V K*) 50 Mg/Ml Susp, 250 MG PO BID 06/19/11 Penicillin V Potassium* (Penicillin V K*) 250 Mg Tab 06/18/11 Metoprolol Tartrate* (Lopressor*) 25 Mg Tab 06/18/11 Warfarin Sodium* (Coumadin*) 1 Mg Tablet 06/18/11 Allergies Allergies: Coded Allergies: No Known Allergy (Unverified , 03/04/17) PMhx/Soc Past medical history: - Enterococcus bacteremia - Bilateral thalamic infarctions - Gastritis due to H. pylori - Dysphagia, status post G-tube placement - Atrial fibrillation with rapid ventricular response On Eliquis, digoxin and atenolol. - Thrombosis of the bilateral cephalic veins. - Acute kidney injury, resolved. - History of CVA - Hyperlipidemia Past surgical history: G tube Social history: [facility] in [facility] History of Surgery: Yes (Fasciotomy of LLE and IVC Filter) Anesthesia Reaction: No Hx Respiratory Disorders: No Hx Psychiatric Problems: No Hx Miscellaneous Medical Probl: Yes (controled afib, encephalopathy, CVA, dysarthria, s/p IVC filter) Hx Alcohol Use: No Hx Substance Use: No Hx Tobacco Use: No FmHx Noncontributory Physical Exam Vitals Vital Signs Date Time Temp Pulse Resp B/P Pulse Ox O2 Delivery O2 Flow Rate FiO2 04/25/17 05:00 103.1 97 28 127/81 98 Room Air 04/25/17 04:35 103.5 100 28 137/61 100 Room Air 04/25/17 03:00 93 30 111/65 100 Room Air 04/25/17 01:18 98.7 105 24 120/67 98 Physical Exam Const: Alert, no acute distress Head: Atraumatic Eyes: Normal Conjunctiva, No pallor, no icterus ENT: Normal External Ears, Nose and Mouth. Mucous membranes moist Neck: Full range of motion..~ No meningismus. Resp: Clear to auscultation bilaterally, No wheezes, no rales. Tachypnea to mid 30s Cardio: Mild tachycardia, irregularly irregular rhythm, no murmurs Abd: Soft, non tender, non distended. Skin: No petechiae or rashes Back: No midline or flank tenderness Ext: No cyanosis, or edema Neur: Awake and alert, Right-sided facial droop and right hemiparesis Psych: Normal Mood and Affect Result Diagram: 04/25/1721404/25/17214 Results 24 hrs Laboratory Tests Test 04/25/17 02:15 White Blood Count 13.610^3/ul Red Blood Count 4.2210^6/ul Hemoglobin 11.1g/dl Hematocrit 36.4% Mean Corpuscular Volume 86.3fl Mean Corpuscular Hemoglobin 26.3pg Mean Corpuscular Hemoglobin Concent 30.5g/dl Red Cell Distribution Width 17.2% Platelet Count 39556^3/UL Mean Platelet Volume 12.6fl Neutrophils % 83.8% Lymphocytes % 8.4% Monocytes % 4.1% Eosinophils % 2.6% Basophils % 0.7% Nucleated Red Blood Cells % 0.0/100WBC Neutrophils # 11.410^3/ul Lymphocytes # 1.110^3/ul Monocytes # 0.610^3/ul Eosinophils # 0.410^3/ul Basophils # 0.110^3/ul Nucleated Red Blood Cells # 0.010^3/ul Prothrombin Time 16.3Sec Prothrombin Time Ratio 1.3 INR International Normalized Ratio 1.30 Activated Partial Thromboplast Time 35.4Sec Urine Color YELLOW Urine Clarity CLEAR Urine pH 6.0 Urine Specific [place] 1.015 Urine Ketones NEGATIVEmg/dL Urine Nitrite NEGATIVEmg/dL Urine Bilirubin NEGATIVEmg/dL Urine Urobilinogen NEGATIVEmg/dL Urine Leukocyte Esterase NEGATIVELeu/ul Urine Microscopic RBC 2/HPF Urine Microscopic WBC 4/HPF Urine Granular Casts FEW/HPF Urine Hemoglobin NEGATIVEmg/dL Urine Glucose NEGATIVEmg/dL Urine Total Protein 1+mg/dl Sodium Level 146mmol/L Potassium Level 3.8mmol/L Chloride Level 110mmol/L Carbon Dioxide Level 21mmol/L Anion Gap 19 Blood Urea Nitrogen 16mg/dl Creatinine 0.98mg/dl Glucose Level 91mg/dl Lactic Acid Level 1.3mmol/L Calcium Level 9.6mg/dl Total Bilirubin 0.3mg/dl Direct Bilirubin 0.00mg/dl Indirect Bilirubin 0.3mg/dl Aspartate Amino Transf (AST/SGOT) 27IU/L Alanine Aminotransferase (ALT/SGPT) 32IU/L Alkaline Phosphatase 113IU/L Troponin I 0.017ng/ml Total Protein 8.0g/dl Albumin 4.3g/dl Globulin 3.70g/dl Albumin/Globulin Ratio 1.16 Current Medications Medications (Trade) Dose Ordered Sig/Fabián Route PRN Reason Start Time Stop Time Status Last Admin Dose Admin Sodium Chloride 1800 ml 1,800 ml BOLUS OVER 2 HOURS STAT IV* 04/25/17 01:30 04/25/17 01:32 DC 04/25/17 02:47 Cefepime HCl 50 ml @ 100 mls/hr ONCE STAT IVPB 04/25/17 01:30 04/25/17 01:59 DC 04/25/17 02:46 Vancomycin HCl (Vancocin) 250 ml @ 125 mls/hr ONCE ONCE IVPB 04/25/17 01:30 04/25/17 03:29 DC 04/25/17 04:18 Acetaminophen (Tylenol Supp) 650 mg ONCE ONCE IN 04/25/17 05:00 04/25/17 05:01 DC 04/25/17 04:53 Ondansetron HCl (Zofran Inj) 4 mg ER BRIDGE PRN IV NAUSEA AND/OR VOMITING 04/25/17 05:00 04/26/17 04:59 Acetaminophen (Tylenol Tab) 650 mg ER BRIDGE PRN PO MILD PAIN/FEVER 04/25/17 05:00 04/26/17 04:59 Procedures/MDM EKG read by me: Time 216, rate 96 Rhythm: Atrial fibrillation [place]: Normal Intervals: Normal ST-T waves: no ischemic changes Ectopy: No Q-waves: No Impression: Atrial fibrillation, no ischemia MDM: Patient is a 61-year-old female with recent complicated hospital course including recent stroke and bacteremia that was attributed to UTI. She presents today with fever from [facility] after being on antibiotics ( ampicillin and ceftriaxone) for 3 weeks. In the ER, the patient is found to have fever to 103.5. She does not have tachycardia, but does have tachypnea. There is no hypoxia, and chest x-ray does not show infiltrate. An influenza swab is pending. Chest x-ray suggests pulmonary vascular congestion; however, given concern for sepsis, the patient was given weight-based IV fluids and empiric antibiotics. Urinalysis was not suggestive of UTI. There is no evidence of soft tissue infection. Case was discussed with Dr. Valdovinos,, and the patient will be admitted for further septic workup. Lactic acid was not elevated. Urine cultures were sent. Departure Diagnosis: Primary Impression: Sepsis Sepsis type: sepsis due to unspecified organism Qualified Code: A41.9 - Sepsis, due to unspecified organism Additional Impression: Atrial fibrillation Atrial fibrillation type: chronic Qualified Code: I48.2 - Chronic atrial fibrillation Condition: ANTHONY Michele MD Apr 25, 2017 01:22
[2017-04-25] MEDS ORDERED: CEFEPIME 2GM/50 ML (PMX) 50 ML IVPB STA (01:30)
[2017-04-25] MEDS ORDERED: SODIUM CHLORIDE 0.9% 1L BAG IV* STA (01:30)
[2017-04-25] MEDS ORDERED: VANCOMYCIN 1 GM (PMX) 250 ML IVPB ONE (01:30)
--- NOTE | 2017-04-25 02:11 | RADRPT ---
PROCEDURE: CHEST - 1 VIEW CLINICAL INDICATION: 61-year-old female with shortness of breath and sepsis. TECHNIQUE: A single frontal AP portable view of the chest was performed. The images were reviewed on a PACS workstation. COMPARISON: Chest x-ray March 21, 2017. FINDINGS: The study is limited since the patient's left hand is overlying the left chest. There has been inter lizbet removal of the left-sided PICC line. The cardiomediastinal silhouette is enlarged. There is mild pulmonary vascular congestion. There is no evidence for focal consolidation. There is no evidence for pneumothorax. The osseous structures are intact. IMPRESSION: 1. Limited radiograph since the patient's left hand is overlying the left chest. 2. Cardiomegaly. 3. Mild pulmonary vascular congestion. .Iron Murdock MD, Date Time Electronically viewed and signed by .Iron Murdock MD, on 04/25/2017 02:11 .M/
--- NOTE | 2017-04-25 02:11 | RADRPT ---
PROCEDURE: CHEST - 1 VIEW CLINICAL INDICATION: 61-year-old female with shortness of breath and sepsis. TECHNIQUE: A single frontal AP portable view of the chest was performed. The images were reviewed on a PACS workstation. COMPARISON: Chest x-ray March 21, 2017. FINDINGS: The study is limited since the patient's left hand is overlying the left chest. There has been inter libzet removal of the left-sided PICC line. The cardiomediastinal silhouette is enlarged. There is mild pulmonary vascular congestion. There is no evidence for focal consolidation. There is no evidence for pneumothorax. The osseous structures are intact. IMPRESSION: 1. Limited radiograph since the patient's left hand is overlying the left chest. 2. Cardiomegaly. 3. Mild pulmonary vascular congestion. .Iron Murdock MD, Date Time Electronically viewed and signed by .Iron Murdock MD, on 04/25/2017 02:11 .M/
[2017-04-25] MEDS ORDERED: ONDANSETRON 4 MG INJ IV PRN ×2 (05:00→15:30)
[2017-04-25] MEDS ORDERED: ACETAMINOPHEN 650 MG SUPP PR ONE (05:00)
[2017-04-25] MEDS ORDERED: ACETAMINOPHEN 325 MG TAB PO PRN (05:00)
[2017-04-25] MEDS ORDERED: ENOXAPARIN 60 MG/0.6 ML SYG SC ONE (06:00)
[2017-04-25] MEDS ORDERED: APIX5TAB GTB (11:06)
[2017-04-25] MEDS ORDERED: ACET325S GTB (11:06)
[2017-04-25] MEDS ORDERED: DEXT1DRO7 OP (11:08)
[2017-04-25] MEDS ORDERED: ATEN-51 GTB (11:09)
[2017-04-25] MEDS ORDERED: DIGO125T GTB (11:10)
[2017-04-25] MEDS ORDERED: BISA10SU75 PR (11:10)
[2017-04-25] MEDS ORDERED: LANS30CA GTB (11:12)
[2017-04-25] MEDS ORDERED: LEVA0.314 INHALATION (11:14)
[2017-04-25] MEDS ORDERED: MIDO5TAB19 GTB (11:18)
--- NOTE | 2017-04-25 11:50 | CONS ---
Date/Time of Note Date/Time of Note DATE: 04/25/17 TIME: 11:46 Assessment/Plan Assessment/Plan Chief Complaint/Hosp Course - recurrent sepsis, probably due to aspiration pneumonia/pneumonitis or bronchitis - RANDOLPH, probably due to fever - s/p sepsis due to bacteremia and UTI - s/p enterococcus bacteremia, tip of PICC grew Group B strep. Transthoracic echo on 01/16/2017, 03/25/2017 did not reveal valvular vegetation but difficult to assess MV. Pt was supposed to take an empiric course of endocarditis through 04/23/2017; Pt's said that she had completed antibiotics on 04/24/2017 - h/o rheumatic heart disease (probable rheumatic, severe MS on transthoracic echo) - recurrent UTI due to E. coli, proteus - dysphagia s/p PEG - diffuse moderate degree of gastritis s/p EGD 02/15/2017 - h/o gastritis due to H. pylori based on pathology 02/15/2017; Pt completed clarithromycin-based regimen (02/20/2017-), [id number] - h/o bleeding from GT site, and blood clots in tube feed, resolved - s/p recurrent CVA - h/o possible aspiration, improved - encephalopathy due to CVA. CSF from 01/19/2017: WBC=3, RBC=0, glu 53, pro=61, CSF ([place] serology negative, HSV negative, cocci CF negative, encephalitis meningitis panel could not be done due to a lack of sample), serum ([place] PCR negative, crypto antigen negative, cocci CF negative, histo CF negative). - h/o bacteremia due to CoNS, probable contaminant. - h/o MARIELA - A fib - h/o DVT - h/o LLE ischemia s/p thrombolysis and subsequent open thrombectomy and fasciotomy at [facility] 09/2015 - h/o thrombus on DEBBIE per records from [facility] - h/o funguria recommendations: - pending results: urine and blood cultures - ordered: influenza screen, sputum culture - I recommend empiric IV vancomycin and cefepime management d/w Pt, her and RN Problems: Consultation Date/Type/Reason Admit Date/Time 04/25/2017 Date of Consultation: Apr 25, 2017 Type of Consultation: ID Reason for Consultation sepsis Referring Provider: ROXANA VALDOVINOS MD Hx of Present Illness This is a 60 yo female with h/o rheumatic heart disease (probable rheumatic, severe MS on transthoracic echo) who was admitted here for a few months after CVA. Pt eventually got PEG and was sent to SNF. From ID standpoint, her last admission was significant for enterococcus bacteremia. Transthoracic echo on , 03/25/2017 did not reveal valvular vegetation but it was difficult to assess MV. I recommended empiric antibiotics for endocarditis through 2016. According to Pt's , she finished her antibiotics yesterday. She also completed treatment for H. pylori that was found on biopsy from her EGD. For the last several days, Pt was coughing and was congested at SNF. Pt is nearly non-verbal but endorses cough and RANDOLPH of the forehead. She denies neck pain/stiffness and photophobia. As a result, Pt was sent to ER today. On arrival she was febrile, tachycardic and WBC was 13.6. Pt was given a dose of IV vancomycin and cefepime. Dr. Valdovinos requested ID consultation on this Pt. nearly non-verbal Subjective hx not possible: pt non-verbal Constitutional: febrile Respiratory: cough, sputum, No pain Cardiovascular: no complaints Gastrointestinal: no complaints Genitourinary: other (FC) Neurologic: headache, other (no photophobia), No dizziness Past Medical History Medical History: peptic ulcer disease, urinary tract infection, other (CVA, H. pylori infection, bacteremia, rheumatic fever involving MV) Social History Alcohol Use: none Smoking Status: Never smoker Drug Use: none Exam/Review of Systems Vital Signs Vitals Vital Signs Date Time Temp Pulse Resp B/P Pulse Ox O2 Delivery O2 Flow Rate FiO2 04/25/17 10:30 100.0 90 20 112/67 97 Nasal Cannula 2.0 Intake and Output 04/24/17 04/24/17 04/25/17 15:00 23:00 07:00 Intake Total 100 ml Balance 100 ml Exam Constitutional: frail, non-verbal Psych: confusion Head: atraumatic, normocephalic Eyes: nl sclera, other (ptosis of L eye (unchanged)) Neck: non-tender, supple Respiratory: congested cough, crackles/rales Cardiovascular: nl pulses, regular rate and rhythm Gastrointestinal: non-tender, other (GT), soft Genitourinary - Female: other (FC) Musculoskeletal: nl extremities to inspection Extremities: No edema Neurological: lethargic, other (no photophobia) Skin: nl turgor Results Result Diagram: 04/25/1721404/25/175 Results 24 hrs Laboratory Tests Test 04/25/17 02:15 04/25/17 05:25 White Blood Count 13.6 #H Red Blood Count 4.22 Hemoglobin 11.1 L Hematocrit 36.4 L Mean Corpuscular Volume 86.3 Mean Corpuscular Hemoglobin 26.3 L Mean Corpuscular Hemoglobin Concent 30.5 L Red Cell Distribution Width 17.2 H Platelet Count 365 # Mean Platelet Volume 12.6 H Neutrophils % 83.8 H Lymphocytes % 8.4 L Monocytes % 4.1 Eosinophils % 2.6 Basophils % 0.7 Nucleated Red Blood Cells % 0.0 Neutrophils # 11.4 H Lymphocytes # 1.1 Monocytes # 0.6 Eosinophils # 0.4 Basophils # 0.1 Nucleated Red Blood Cells # 0.0 Prothrombin Time 16.3 #H Prothrombin Time Ratio 1.3 INR International Normalized Ratio 1.30 Activated Partial Thromboplast Time 35.4 H Urine Color YELLOW Urine Clarity CLEAR Urine pH 6.0 Urine Specific Prosser 1.015 Urine Ketones NEGATIVE Urine Nitrite NEGATIVE Urine Bilirubin NEGATIVE Urine Urobilinogen NEGATIVE Urine Leukocyte Esterase NEGATIVE Urine Microscopic RBC 2 Urine Microscopic WBC 4 Urine Granular Casts FEW A Urine Hemoglobin NEGATIVE Urine Glucose NEGATIVE Urine Total Protein 1+ H Sodium Level 146 H Potassium Level 3.8 Chloride Level 110 Carbon Dioxide Level 21 Anion Gap 19 H Blood Urea Nitrogen 16 Creatinine 0.98 Glucose Level 91 Lactic Acid Level 1.3 1.7 Calcium Level 9.6 Total Bilirubin 0.3 Direct Bilirubin 0.00 Indirect Bilirubin 0.3 Aspartate Amino Transf (AST/SGOT) 27 Alanine Aminotransferase (ALT/SGPT) 32 Alkaline Phosphatase 113 Troponin I 0.017 Total Protein 8.0 Albumin 4.3 Globulin 3.70 H Albumin/Globulin Ratio 1.16 B-Type Natriuretic Peptide 4670 H TYE STYLES M.D. Apr 25, 2017 11:50
[2017-04-25] MEDS ORDERED: VANCOMYCIN IV PER PHARMACY XX SCH (12:30)
[2017-04-25 13:28] VITALS: TEMP 98.3
[2017-04-25] MEDS: CEFEPIME 2GM/50 ML (PMX) 50 ML IVPB SCH ×2 (13:35→21:34)
[2017-04-25 14:01] VITALS: BP 123/53; RESP 16
[2017-04-25] MEDS ORDERED: DEXTROSE 5%-0.45% NACL 1,000 ML IV SCH ×2 (14:30→23:30)
[2017-04-25 14:37] VITALS: PULSE 96
[2017-04-25] MEDS: VANCOMYCIN 500MG/NS (PMX) 100 ML IVPB SCH (14:49)
[2017-04-25] MEDS ORDERED: DIGOXIN 500 MCG INJ IV ONE (15:00)
[2017-04-25] MEDS ORDERED: METOPROLOL 5 MG INJ IV PRN (15:00)
[2017-04-25 15:07] VITALS: Ht 160 cm; Wt 62.0 kg
[2017-04-25] MEDS: ACETAMINOPHEN 650MG/20.3ML CUP GTB PRN (15:25)
[2017-04-25] MEDS ORDERED: BISACODYL 10 MG SUPP PR PRN (15:30)
[2017-04-25] MEDS ORDERED: MIDODRINE 5 MG TAB GTB PRN (15:30)
[2017-04-25 16:02] VITALS: PULSE 108
--- NOTE | 2017-04-25 17:38 | RADRPT ---
PROCEDURE: CT Brain without contrast. CLINICAL INDICATION: Headache. Coagulopathy. TECHNIQUE: A CT of the brain was performed on a multidetector CT scanner utilizing axial imaging f rom the skull base through the vertex without IV contrast. Multiplanar reformatted images were made . Images were reviewed on a PACS workstation. The CTDIvol is 43 mGy and the DLP is 720 mGycm. Individualized dosed optimization technique was used for the performance of this exam. This included 1. Automated exposure control. 2. Adjustment of the mA and / or kV according to the patient's size. 3. The use of iterative reconstruction technique. COMPARISON: Head CT March 18, 2017 FINDINGS: There is no intracranial hemorrhage, mass effect, or midline shift. No extra-axial fluid collection is seen. The ventricles and sulci are normal in size and configuration. The density of the brain is normal, and the yip white matter differentiation appears well-preserved. The visualized osseous s tructures are grossly unremarkable. There is debris in the sphenoid sinus. IMPRESSION: 1. No evidence of acute intracranial pathology. 2. The brain is normal in appearance. .Brando Millan MD, MD Date Time Electronically viewed and signed by .Brando Millan MD, MD on 04/25/2017 17:38 .A/
[2017-04-25] MEDS ORDERED: LEVALBUTEROL (NEB) 0.31 MG/3 ML AMP INH SCH (18:00)
--- NOTE | 2017-04-25 19:13 | CONS ---
DATE OF ADMISSION: 04/25/2017 DATE OF CONSULTATION: NEUROLOGICAL CONSULTATION HISTORY OF PRESENT ILLNESS: The patient is known to me from previous hospitalizations. She initially presented on 01/16/2017 with alteration of mental status, initially felt to be related to encephalitis. No definite source was found. Patient had multiple imaging and eventually was diagnosed with bilateral thalamic strokes, with involvement of cerebral peduncles, aqueductal region rostral mid brain. According to radiologist, possibility would include ischemia in distribution of artery of [place]. The patient's condition improved gradually. No major abnormality was seen on MRA and MRVs of the brain. Patient was discharged home about 1 month ago, now admitted with sepsis from [facility]. Usually patient is sensitive to fluctuation of blood pressure, and also toxic metabolic reasons for causing encephalopathy. So far, according to patient's family who is present at bedside , she seemed to be relatively stable on neurological and mental condition. She presented with fevers, also complains of some headaches, was diagnosed by ID specialist with recurrent sepsis, possibly due to aspiration pneumonia. So far, chest x-ray was done, cardiomegaly, mild vascular congestion. LABORATORY DATA: The patient's labs show 13.6 WBC count with neutrophils 84%, hemoglobin 11, hematocrit 36, platelets 365. Chemistry essentially normal comprehensive metabolic panel, BNP 4600, PT is 16, PTT is 85. ALLERGIES: pork-CONTAINING PRODUCTS. CURRENT MEDICATIONS: 1. Eliquis. 2. Protonix. 3. Atenolol. 4. Midodrine. 5. Metoprolol. 6. Vancomycin. 7. Cefepime SOCIAL HISTORY: No alcohol, tobacco, drug use. FAMILY HISTORY: Noncontributory. PHYSICAL EXAMINATION: VITAL SIGNS: 98.2 temperature, earlier today 100.7, pulse 89, 16 respirations, blood pressure 123/53. GENERAL: Not in acute distress, lying in bed. HEENT: Normocephalic, atraumatic head. NECK: No carotid bruits, lymphadenopathy, thyromegaly. No meningeal signs. LUNGS: Clear to auscultation bilaterally. CARDIAC: Normal cardiac rhythm and sounds. ABDOMEN: Soft. EXTREMITIES: No cyanosis, clubbing or edema. NEUROLOGIC: She is awake and oriented x1. Fluent, but somewhat slurred speech. Cranial nerves examination shows intact visual helms to visual threat bilaterally. Pupils about 3 mm bilaterally. Extraocular movements intact. Patient has divergent strabismus with left eye exotropia. Strength seemed to be preserved in the face. Corneal reflexes are present, as well as gag. Motor strength examination slightly increased tone in upper extremities. The patient moves all extremities symmetrically, about 4-/5 or 3+/5. Deep tendon reflexes 2 + upper extremities and knees, absent ankle jerks. Upgoing toes bilaterally. Sensory examination intact to light touch and pain. Coordination examination shows minimal dysmetria on hojjfa-xq-[id number] testing, slightly worse on the left. IMPRESSION: Status post bilateral thalamic mid brain strokes with residual encephalopathy and weakness. Patient seems to be at her baseline at least currently. She presented with sepsis and fevers from [facility]. Continue current treatment. She is on anticoagulation because of history of DVT/a.fib. She complains of headaches, possibly toxic metabolic secondary to sepsis. We will obtain imaging of the brain to exclude any new structural abnormality. Thank you very much for this interesting consultation. ID service is on case as well. Dictated By: RHETT ESPINOSA/RAMU Conf#: [id number] DID#: [id number] CC: ROXANA TORO MD;*EndCC* MTDD
--- NOTE | 2017-04-25 19:13 | CONS ---
DATE OF ADMISSION: 04/25/2017 DATE OF CONSULTATION: NEUROLOGICAL CONSULTATION HISTORY OF PRESENT ILLNESS: The patient is known to me from previous hospitalizations. She initially presented on 01/16/2017 with alteration of mental status, initially felt to be related to encephalitis. No definite source was found. Patient had multiple imaging and eventually was diagnosed with bilateral thalamic strokes, with involvement of cerebral peduncles, aqueductal region rostral mid brain. According to radiologist, possibility would include ischemia in distribution of artery of [place]. The patient's condition improved gradually. No major abnormality was seen on MRA and MRVs of the brain. Patient was discharged home about 1 month ago, now admitted with sepsis from residential facility. Usually patient is sensitive to fluctuation of blood pressure, and also toxic metabolic reasons for causing encephalopathy. So far, according to patient's family who is present at bedside , she seemed to be relatively stable on neurological and mental condition. She presented with fevers, also complains of some headaches, was diagnosed by ID specialist with recurrent sepsis, possibly due to aspiration pneumonia. So far, chest x-ray was done, cardiomegaly, mild vascular congestion. LABORATORY DATA: The patient's labs show 13.6 WBC count with neutrophils 84%, hemoglobin 11, hematocrit 36, platelets 365. Chemistry essentially normal comprehensive metabolic panel, BNP 4600, PT is 16, PTT is 85. ALLERGIES: pork-CONTAINING PRODUCTS. CURRENT MEDICATIONS: 1. Eliquis. 2. Protonix. 3. Atenolol. 4. Midodrine. 5. Metoprolol. 6. Vancomycin. 7. Cefepime SOCIAL HISTORY: No alcohol, tobacco, drug use. FAMILY HISTORY: Noncontributory. PHYSICAL EXAMINATION: VITAL SIGNS: 98.2 temperature, earlier today 100.7, pulse 89, 16 respirations, blood pressure 123/53. GENERAL: Not in acute distress, lying in bed. HEENT: Normocephalic, atraumatic head. NECK: No carotid bruits, lymphadenopathy, thyromegaly. No meningeal signs. LUNGS: Clear to auscultation bilaterally. CARDIAC: Normal cardiac rhythm and sounds. ABDOMEN: Soft. EXTREMITIES: No cyanosis, clubbing or edema. NEUROLOGIC: She is awake and oriented x1. Fluent, but somewhat slurred speech. Cranial nerves examination shows intact visual helms to visual threat bilaterally. Pupils about 3 mm bilaterally. Extraocular movements intact. Patient has divergent strabismus with left eye exotropia. Strength seemed to be preserved in the face. Corneal reflexes are present, as well as gag. Motor strength examination slightly increased tone in upper extremities. The patient moves all extremities symmetrically, about 4-/5 or 3+/5. Deep tendon reflexes 2 + upper extremities and knees, absent ankle jerks. Upgoing toes bilaterally. Sensory examination intact to light touch and pain. Coordination examination shows minimal dysmetria on iflglw-fc-piojkd testing, slightly worse on the left. IMPRESSION: Status post bilateral thalamic mid brain strokes with residual encephalopathy and weakness. Patient seems to be at her baseline at least currently. She presented with sepsis and fevers from residential facility. Continue current treatment. She is on anticoagulation because of history of DVT/a.fib. She complains of headaches, possibly toxic metabolic secondary to sepsis. We will obtain imaging of the brain to exclude any new structural abnormality. Thank you very much for this interesting consultation. ID service is on case as well. Dictated By: RHETT ESPINOSA/RAMU Conf#: [id number] DID#: [id number] CC: ROXANA TORO MD;*EndCC* MTDD
[2017-04-25 20:00] VITALS: BP 95/54; RESP 17
[2017-04-25 20:18] VITALS: PULSE 70
[2017-04-25] MEDS: ATENOLOL 25 MG TAB PO SCH (21:00)
[2017-04-25] MEDS: ARTIFICIAL TEARS 15 ML OPH BOTH EYES PRN (22:34)
--- NOTE | 2017-04-25 23:27 | HP ---
Date/Time of Note Date/Time of Note DATE: 04/25/17 TIME: 14:13 Assessment/Plan VTE Prophylaxis VTE Prophylaxis Intervention: other Lines/Catheters Urinary Cath still in place: Yes Reason Cath still needed: urinary retention Assessment/Plan Assessment/Plan - recurrent sepsis, probably due to aspiration pneumonia/pneumonitis or bronchitis - ID Consult - Dr Carbajal - recurrent UTI due to E. coli, proteus - s/p enterococcus bacteremia, Group B strep- finished. empiric course of endocarditis - Atrial fibrillation- on plavix - Cardiology consult- dr Armenta -- hx rheumatic heart disease -- RANDOLPH possibly sec to fever, hx stroke - will get neurology consult- Dr Cantu notified - seizure precautions - encephalopathy due to CVA. - dysphagia s/p PEG - aspiration precautions - hx gastritis s/p EGD 02/15/2017 - hx GT site,bleeding-none at present - hx MARIELA- Bun/Cr wn - hx DVT- on Eliquis - hx LLE ischemia s/p thrombolysis and subsequent open thrombectomy and fasciotomy at [facility] 09/2015 Plan of care dw Dr Valdovinos/ Dr Armenta/staff HPI/ROS Admit Date/Time Admit Date/Time 04/25/2017 Hx of Present Illness HPI Patient is a 61-year-old female patient is`admitted with fever of 100.8 Fahrenheit today. The patient just finished a 21 day course of antibiotics for bacteremia. History can not be obtained due to her mental status. at bed side states that the patient has fever and cough from last 2-3 days. No reported chest pain, dyspnea. vomitting. no shortness of breath noted when assessed. Plan of crer dw staff/ . ROS All systems reviewed and are negative except as per history of present illness. Allergies No Known Allergy (Unverified , 03/04/17) ROS Respiratory: No pain Genitourinary: other (FC-yellow, clear urine) Neurologic: headache, other (no photophobia), No dizziness Psychological: confusion PMH/Family/Social Past Medical History PMhx/Soc Past medical history: - Enterococcus bacteremia - Bilateral thalamic infarctions - Gastritis due to H. pylori - Dysphagia, status post G-tube placement - Atrial fibrillation with rapid ventricular response On Eliquis, digoxin and atenolol. - Thrombosis of the bilateral cephalic veins. - Acute kidney injury, resolved. - History of CVA - Hyperlipidemia Past surgical history: G tube Social history: Lives in long-term since stroke History of Surgery: Yes (Fasciotomy of LLE and IVC Filter) Anesthesia Reaction: No Hx Respiratory Disorders: No Hx Psychiatric Problems: No Hx Miscellaneous Medical Probl: Yes (controled afib, encephalopathy, CVA, dysarthria, s/p IVC filter) Hx Alcohol Use: No Hx Substance Use: No Hx Tobacco Use: No FmHx Noncontributory Medical History: peptic ulcer disease, urinary tract infection, other (CVA, H. pylori infection, bacteremia, rheumatic fever involving MV) Social History Alcohol Use: none Smoking Status: Never smoker Drug Use: none Exam/Review of Systems Vital Signs Vitals Vital Signs Date Time Temp Pulse Resp B/P Pulse Ox O2 Delivery O2 Flow Rate FiO2 04/25/17 14:01 98.2 89 16 123/53 98 04/25/17 13:28 Nasal Cannula 2.0 Intake and Output 04/24/17 04/24/17 04/25/17 15:00 23:00 07:00 Intake Total 100 ml Balance 100 ml Exam Constitutional: alert Respiratory: diminished breath sounds, normal air movement Cardiovascular: nl pulses, other (Afib) Gastrointestinal: soft Musculoskeletal: nl extremities to inspection Extremities: normal pulses Neurological: confused Labs Result Diagram: 04/25/1721404/25/17214 Medications Medications Current Medications Cefepime HCl 50 ml @ 100 mls/hr Q12 IVPB Last administered on 04/25/17t 13:35 ; Admin Dose 100 MLS/HR; Start 04/25/17 at 12:30 Vancomycin HCl (Vancocin) 100 ml @ 100 mls/hr Q12H IVPB ; Start 04/25/17 at 13 :00 Procedures Procedures EKG Rhythm: Atrial fibrillation [place]: Normal Intervals: Normal ST-T waves: no ischemic changes Ectopy: No Q-waves: No Impression: Atrial fibrillation, no ischemia ALEXIS NAJERA Apr 25, 2017 14:24
[2017-04-26] VITALS (12 sets, daily range): BP systolic 103–158; BP diastolic 55–70; PULSE 75–100; RESP 18
[2017-04-26] MEDS: LEVALBUTEROL (NEB) 0.31 MG/3 ML AMP INH SCH ×4 (01:22→19:38)
[2017-04-26] MEDS: VANCOMYCIN 500MG/NS (PMX) 100 ML IVPB SCH ×2 (01:43→14:39)
--- NOTE | 2017-04-26 01:46 | CONS ---
DATE OF ADMISSION: 04/25/2017 DATE OF CONSULTATION: 04/25/2017 CARDIOLOGY CONSULTATION REASON FOR CONSULTATION: Atrial fibrillation with rapid ventricular response. REQUESTING PHYSICIAN: Dr. Kana Valdovinos. HISTORY OF PRESENT: Ms. Mcmullen is a 61-year-old female with a history of mild cardiomyopathy with d ecreased left ventricular ejection fraction approximately 45% by most recent echo, dysphagia status post PEG, recurrent bouts of encephalopathy, atrial fibrillation on baseline Eliquis, history of DVT , history of recent bacteremia and mitral stenosis, severe by echo 11/2016, who presents with recurre nt fevers. Upon arrival in the emergency department, temperature of 103.5, blood pressure 137/61, p ulse 100% on room air. Patient's labs were notable for white count , platelet count 365. [place] um 146, potassium 3.8, creatinine 0.98, BUN 16. Troponin negative. INR of 1.3. UA negative. The patient underwent a chest x-ray revealing mild pulmonary vascular congestion. The patient's electro cardiogram was not in chart for my review at this time. The patient has been admitted to the teleme try floor. She has been placed on tele revealing atrial fibrillation with a mild rapid ventricular response to the low 100s. The patient at this time does not clearly respond to questions pertaining to chest pain or shortness of breath and at this time is tearful. PAST MEDICAL HISTORY: As above in HPI. MEDICATIONS CURRENTLY IN HOSPITAL: 1. Vancomycin. 2. Cefepime. MEDICATIONS PRIOR TO ADMIT: 1. P.r.n. midodrine. 2. Eliquis 5 mg p.o. b.i.d. 3. Atenolol 12.5 mg p.o. b.i.d. 4. Digoxin 0.125 mg daily. 5. Prevacid p.r.n. 6. Tylenol p.r.n. ALLERGIES: NO KNOWN DRUG ALLERGIES. SOCIAL HISTORY: No tobacco, ETOH or illicit drug use. FAMILY HISTORY: No history of sudden cardiac or early CAD. REVIEW OF SYSTEMS: As above in HPI. CONSTITUTIONAL: No fevers, chills. PULMONARY: No current shortness of breath. CARDIOVASCULAR: Congestive heart failure, atrial fibrillation. GASTROINTESTINAL: No vomiting. GENITOURINARY: No hematuria. MUSCULOSKELETAL: Degenerative joint disease. PSYCHIATRIC: Positive psych history. NEUROLOGIC: Positive mild confusion. ENDOCRINE: No documented history of thyroid disease. PHYSICAL EXAMINATION: VITAL SIGNS: Temperature of T-max 103. T current 98.2, blood pressure 120/53, pulse of 90, respira tions 16. GENERAL: The patient is alert, awake, tearful. NECK: JVP approximately 9 cm of water. CHEST: Decreased breath sounds at bases bilaterally. HEART: Tachycardic, irregularly irregular, I/ systolic murmur, nondisplaced PMI. ABDOMEN: Positive bowel sounds, soft. EXTREMITIES: No pitting edema, 1+ pulses bilaterally posterior tibial. LABORATORY DATA: As above in HPI, with most recently from this morning additionally a BNP of 4670. IMAGING STUDIES: As above in HPI. No further imaging studies for my review at this time. ECG: N o electrocardiograms for my review at this time.: IMPRESSION: 1. Atrial fibrillation with rapid ventricular response. 2. Congestive heart failure, likely systolic and diastolic, acute on chronic, but most recent echo January 2017 revealing an EF of 45%, cardiomyopathy with mildly decreased left ventricular ejection fra ction approximately 45%. 3. Hypertension, under reasonable control. 4. Fevers. 5. History of mitral stenosis, severe by most recent echo, likely rheumatic by visualization. 6. Anemia. 7. Leukocytosis. 8. History of deep venous thrombosis. RECOMMENDATIONS: 1. At this time, would maintain the patient on telemetry monitoring to follow the rhythm and rate c ontrol closely. 2. Would reinitiate the patient on low dose atenolol for control of heart rate and blood pressure, and digoxin is on a baseline. 3. Would check blood cultures and continue patient antibiotics and follow up all culture data close ly. 4. Complete a rule out for myocardial infarction to assure the patient's symptoms have not re sulted in acute coronary syndrome or acute myocardial infarction. 5. Will consider gentle Lasix diuresis following strict I's and O's and blood pressure closely give n mild heart failure by chest x-ray. 6. Check a TSH to be sure that subclinical hyperthyroidism is not contributing to any bouts of tach ycardia. 7. Check a fasting lipid panel for general risk stratification and initiate lipid-lowering medicati on as necessary. Thank you for allowing me to take part in the care of this patient. I will continue to follow very closely with you with further recommendations to be made as the patient progresses through her [facility] clinical course. Dictated By: MINOO MESA/RAMU Conf#: [id number] DID#: [id number] CC: KANA VALDOVINOS MD;*EndCC*
[2017-04-26] MEDS ORDERED: PANTOPRAZOLE (EC) 40 MG TAB PO SCH (06:00)
--- NOTE | 2017-04-26 08:11 | RADRPT ---
PROCEDURE: XR Chest. CLINICAL INDICATION: Shortness of breath. TECHNIQUE: Single frontal view. COMPARISON: 04/25/2017. FINDINGS: There is mild pulmonary edema. The lungs are otherwise clear. The heart is enlarged. There is no pleural effusion. There is no pneumothorax. IMPRESSION: 1. Mild pulmonary edema. 2. Cardiomegaly. RPTAT: QQ .Catrachito Small MD, MD Date Time Electronically viewed and signed by .Catrachito Small MD, on 04/26/2017 08:10 .R/
[2017-04-26] MEDS: ATENOLOL 25 MG TAB PO SCH ×2 (08:37→21:02)
[2017-04-26] MEDS: APIXABAN 5 MG TABLET PO SCH ×2 (08:37→21:01)
[2017-04-26] MEDS: CEFEPIME 2GM/50 ML (PMX) 50 ML IVPB SCH ×2 (10:19→21:00)
[2017-04-26] MEDS ORDERED: POTASSIUM CHLORIDE (SR) 10 MEQ TAB GTB ONE (13:00)
[2017-04-26] MEDS ORDERED: LEVALBUTEROL (NEB) 0.31 MG/3 ML AMP HHN PRN (13:00)
--- NOTE | 2017-04-26 14:11 | CONS ---
Date/Time of Note Date/Time of Note DATE: 04/26/17 TIME: 14:08 Assessment/Plan Assessment/Plan Chief Complaint/Hosp Course IMPRESSION: 1. Atrial fibrillation with rapid ventricular response-currently well rate controlled/NL TSH 2. Congestive heart failure, likely systolic and diastolic, acute on chronic, but most recent echo January 2017 revealing an EF of 45%, cardiomyopathy with mildly decreased left ventricular ejection fraction approximately 45%. 3. Hypertension, under reasonable control. 4. Fevers. 5. History of mitral stenosis, severe by most recent echo, likely rheumatic by visualization. 6. Anemia. 7. Leukocytosis. 8. History of deep venous thrombosis. Recc: -Tele -serial ecg's -Continue eliquis/atenolol and follow BP/HR closely -Contineu abx's and f/u cx data -Start gentle lasix diuresis Problems: Consultation Date/Type/Reason Admit Date/Time Apr 25, 2017 at 04:52 Initial Consult Date 04/25/17 Type of Consultation: cardiology Reason for Consultation AF/CHF Referring Provider: ROXANA TORO MD Exam/Review of Systems Vital Signs Vitals Vital Signs Date Time Temp Pulse Resp B/P Pulse Ox O2 Delivery O2 Flow Rate FiO2 04/26/17 13:00 75 16 97 21 04/26/17 11:50 97.8 115/55 04/25/17 13:28 Nasal Cannula 2.0 Intake and Output 04/25/17 04/25/17 04/26/17 15:00 23:00 07:00 Intake Total 50 ml 600 ml Output Total 500 ml 2600 ml Balance -450 ml -2000 ml Exam Review of Systems: CONSTITUTIONAL: No fevers, chills. PULMONARY: No sob CARDIOVASCULAR: No chest pain/palpitations GASTROINTESTINAL: No nausea/vomiting. GENITOURINARY: No hematuria/dysuria. MUSCULOSKELETAL: No myagias/arthalgias. PSYCHIATRIC: The patient denies depression. NEUROLOGIC: No weakness Constitutional: alert Psych: no complaints Head: normocephalic ENMT: mucosa pink and moist Neck: jvd (9 cm water), supple Respiratory: diminished breath sounds (at bases/B) Cardiovascular: regular rate and rhythm Gastrointestinal: non-tender, soft Musculoskeletal: muscle tone (normal) Extremities: pitting pedal edema (trace/B) Neurological: other Results Result Diagram: 04/26/1718 04/26/1718 Results 24 hrs Laboratory Tests Test 04/26/17 07:18 04/26/17 12:00 White Blood Count 13.0 H Red Blood Count 3.75 L Hemoglobin 10.1 L Hematocrit 32.3 L Mean Corpuscular Volume 86.1 Mean Corpuscular Hemoglobin 26.9 L Mean Corpuscular Hemoglobin Concent 31.3 L Red Cell Distribution Width 16.6 H Platelet Count 346 Mean Platelet Volume 13.0 H Neutrophils % 83.0 H Lymphocytes % 7.9 L Monocytes % 5.9 Eosinophils % 2.2 Basophils % 0.5 Nucleated Red Blood Cells % 0.0 Neutrophils # 10.8 H Lymphocytes # 1.0 Monocytes # 0.8 Eosinophils # 0.3 Basophils # 0.1 Nucleated Red Blood Cells # 0.0 Sodium Level 142 Potassium Level 3.4 L Chloride Level 109 Carbon Dioxide Level 20 L Anion Gap 16 Blood Urea Nitrogen 12 Creatinine 0.98 Glucose Level 125 Calcium Level 9.3 Vancomycin Level Trough 13.1 Medications Medications Current Medications Cefepime HCl 50 ml @ 100 mls/hr Q12 IVPB Last administered on 04/26/17 10:19 ; Admin Dose 100 MLS/HR; Start 04/25/17 at 12:30 Vancomycin HCl (Vancocin) 100 ml @ 100 mls/hr Q12H IVPB Last administered on 04/26/17 01:43; Admin Dose 100 MLS/HR; Start 04/25/17 at 13:00 Apixaban (Eliquis) 2.5 mg BID PO Last administered on 04/26/17 08:37; Admin Dose 2.5 MG; Start 04/26/17 at 09:00 Atenolol (Tenormin) 12.5 mg BID PO Last administered on 04/26/17 08:37; Admin Dose 12.5 MG; Start 04/25/17 at 21:00 Metoprolol Tartrate (Lopressor) 5 mg Q4H PRN IV HR>110 Hold SBP<100; Start at 15:00 Acetaminophen (Tylenol Liquid) 650 mg Q4H PRN GTB PAIN OR TEMP ABOVE 38C Last administered on 04/25/17 15:25; Admin Dose 650 MG; Start 04/25/17 at 15:30 Bisacodyl (Dulcolax Supp) 10 mg DAILY PRN [place] PRN; Start 04/25/17 at 15:30 Eye Lubricant (Artificial Tears Oph) 2 drop Q6H PRN BOTH EYES DRY EYES Last administered on 04/25/17t 22:34; Admin Dose 2 DROP; Start 04/25/17 at 15:30 Ondansetron HCl (Zofran Inj) 4 mg Q6H PRN IV NAUSEA AND/OR VOMITING; Start at 15:30 Lansoprazole (Prevacid) 30 mg DAILY@06 GTB ; Start 04/26/17 at 06:02 MINOO REY Apr 26, 2017 14:11
--- NOTE | 2017-04-26 14:39 | PN ---
Date/Time of Note Date/Time of Note DATE: 04/26/17 TIME: 14:39 Assessment/Plan VTE Prophylaxis VTE Prophylaxis Intervention: SCD's Lines/Catheters [facility] Peripheral IV Urinary Cath still in place: Yes Reason Cath still needed: urinary retention Assessment/Plan Chief Complaint/Hosp Course Patient is awake alert was neuro status at her baseline, restarted on G-tube feeding tolerates it well, will DC IV fluids, replace potassium. Patient currently in atrial fibrillation with controlled rate. Patient's condition and plan of care discussed with patient's son at the bedside. Assessment/Plan - Recurrent sepsis secondary to early pneumonia versus bronchitis. Continue antibiotics per ID. Dr. Abarca is following in ID consultation. - Bilateral thalamic infarctions. Dr. Ramirez is following in neurology consultation. - Dysphagia with G-tube. - Atrial fibrillation with rapid ventricular response. Dr. Armenta is following and cardiology consultation. Continue Eliquis and atenolol. - CHF, continue Lasix. Monitor electrolytes. - Thrombosis of the bilateral cephalic veins. Further recommendations based on clinical course. Plan of care discussed with Dr. Valdovinos. Problems: Exam/Review of Systems Vital Signs Vitals Vital Signs Date Time Temp Pulse Resp B/P Pulse Ox O2 Delivery O2 Flow Rate FiO2 04/26/17 13:00 75 16 97 21 04/26/17 11:50 97.8 115/55 04/25/17 13:28 Nasal Cannula 2.0 Intake and Output 04/25/17 04/25/17 04/26/17 15:00 23:00 07:00 Intake Total 50 ml 600 ml Output Total 500 ml 2600 ml Balance -450 ml -2000 ml Exam Constitutional: alert, oriented Head: atraumatic, normocephalic Neck: supple Respiratory: diminished breath sounds Cardiovascular: irregular rhythm, nl pulses Gastrointestinal: non-tender, other (G-tube), soft Musculoskeletal: muscle weakness Extremities: normal pulses Skin: nl turgor Results Result Diagram: 04/26/1771704/26/17717 Results 24 hrs Laboratory Tests Test 04/26/17 07:18 04/26/17 12:00 White Blood Count 13.0 H Red Blood Count 3.75 L Hemoglobin 10.1 L Hematocrit 32.3 L Mean Corpuscular Volume 86.1 Mean Corpuscular Hemoglobin 26.9 L Mean Corpuscular Hemoglobin Concent 31.3 L Red Cell Distribution Width 16.6 H Platelet Count 346 Mean Platelet Volume 13.0 H Neutrophils % 83.0 H Lymphocytes % 7.9 L Monocytes % 5.9 Eosinophils % 2.2 Basophils % 0.5 Nucleated Red Blood Cells % 0.0 Neutrophils # 10.8 H Lymphocytes # 1.0 Monocytes # 0.8 Eosinophils # 0.3 Basophils # 0.1 Nucleated Red Blood Cells # 0.0 Sodium Level 142 Potassium Level 3.4 L Chloride Level 109 Carbon Dioxide Level 20 L Anion Gap 16 Blood Urea Nitrogen 12 Creatinine 0.98 Glucose Level 125 Calcium Level 9.3 Vancomycin Level Trough 13.1 Medications Medications Current Medications Cefepime HCl 50 ml @ 100 mls/hr Q12 IVPB Last administered on 04/26/17 10:19 ; Admin Dose 100 MLS/HR; Start 04/25/17 at 12:30 Vancomycin HCl (Vancocin) 100 ml @ 100 mls/hr Q12H IVPB Last administered on 04/26/17 01:43; Admin Dose 100 MLS/HR; Start 04/25/17 at 13:00 Apixaban (Eliquis) 2.5 mg BID PO Last administered on 04/26/17 08:37; Admin Dose 2.5 MG; Start 04/26/17 at 09:00 Atenolol (Tenormin) 12.5 mg BID PO Last administered on 04/26/17 08:37; Admin Dose 12.5 MG; Start 04/25/17 at 21:00 Metoprolol Tartrate (Lopressor) 5 mg Q4H PRN IV HR>110 Hold SBP<100; Start at 15:00 Acetaminophen (Tylenol Liquid) 650 mg Q4H PRN GTB PAIN OR TEMP ABOVE 38C Last administered on 04/25/17 15:25; Admin Dose 650 MG; Start 04/25/17 at 15:30 Bisacodyl (Dulcolax Supp) 10 mg DAILY PRN [place] PRN; Start 04/25/17 at 15:30 Eye Lubricant (Artificial Tears Oph) 2 drop Q6H PRN BOTH EYES DRY EYES Last administered on 04/25/17 22:34; Admin Dose 2 DROP; Start 10/22/17 at 15:30 Ondansetron HCl (Zofran Inj) 4 mg Q6H PRN IV NAUSEA AND/OR VOMITING; Start at 15:30 Lansoprazole (Prevacid) 30 mg DAILY@06 GTB ; Start 04/26/17 at 06:02 Furosemide (Lasix) 20 mg DAILY IV ; Start 04/26/17 at 14:30 LAWRENCE PICKERING Apr 26, 2017 14:39
[2017-04-26] MEDS: FUROSEMIDE 20 MG INJ IV SCH (14:40)
[2017-04-27] VITALS (13 sets, daily range): BP systolic 118–165; BP diastolic 56–84; PULSE 52–98; RESP 15–18
[2017-04-27] MEDS: VANCOMYCIN 500MG/NS (PMX) 100 ML IVPB SCH ×2 (00:31→12:20)
[2017-04-27] MEDS: LEVALBUTEROL (NEB) 0.31 MG/3 ML AMP INH SCH ×4 (02:00→20:15)
[2017-04-27] MEDS: LANSOPRAZOLE 30 MG CAP GTB SCH (05:41)
[2017-04-27] MEDS: APIXABAN 5 MG TABLET PO SCH ×2 (08:48→20:30)
[2017-04-27] MEDS: CEFEPIME 2GM/50 ML (PMX) 50 ML IVPB SCH ×2 (08:48→20:32)
[2017-04-27] MEDS: ATENOLOL 25 MG TAB PO SCH ×2 (08:48→20:32)
[2017-04-27] MEDS: FUROSEMIDE 20 MG INJ IV SCH (08:48)
[2017-04-27] MEDS: ACETAMINOPHEN 650MG/20.3ML CUP GTB PRN (10:27)
--- NOTE | 2017-04-27 10:56 | CONS ---
Date/Time of Note Date/Time of Note DATE: 04/26/17 TIME: 10:54 Assessment/Plan Assessment/Plan Chief Complaint/Hosp Course - recurrent sepsis, probably due to aspiration pneumonia/pneumonitis or bronchitis - RANDOLPH, probably due to fever - s/p sepsis due to bacteremia and UTI - s/p enterococcus bacteremia, tip of PICC grew Group B strep. Transthoracic echo on 01/16/2017, 03/25/2017 did not reveal valvular vegetation but difficult to assess MV. Pt was supposed to take an empiric course of endocarditis through 04/23/2017; Pt's said that she had completed antibiotics on 04/24/2017 - h/o rheumatic heart disease (probable rheumatic, severe MS on transthoracic echo) - recurrent UTI due to E. coli, proteus - dysphagia s/p PEG - diffuse moderate degree of gastritis s/p EGD 02/15/2017 - h/o gastritis due to H. pylori based on pathology 02/15/2017; Pt completed clarithromycin-based regimen (02/20/2017-), [id number] - h/o bleeding from GT site, and blood clots in tube feed, resolved - s/p recurrent CVA - h/o possible aspiration, improved - encephalopathy due to CVA. CSF from 01/19/2017: WBC=3, RBC=0, glu 53, pro=61, CSF ([place] serology negative, HSV negative, cocci CF negative, encephalitis meningitis panel could not be done due to a lack of sample), serum ([place] PCR negative, crypto antigen negative, cocci CF negative, histo CF negative). - h/o bacteremia due to CoNS, probable contaminant. - h/o MARIELA - A fib - h/o DVT - h/o LLE ischemia s/p thrombolysis and subsequent open thrombectomy and fasciotomy at [facility] 09/2015 - h/o thrombus on DEBBIE per records from [facility], [facility] - h/o funguria recommendations: - monitor crcl closely - pending results f/u - await sputum culture - cont. empiric IV vancomycin and cefepime Problems: Consultation Date/Type/Reason Admit Date/Time Apr 25, 2017 at 04:52 Initial Consult Date 04/25/17 Type of Consultation: id Referring Provider: ROXANA TORO MD 24 HR Interval Summary Free Text/Dictation late entry for 04.26.17 Exam/Review of Systems Vital Signs Vitals Vital Signs Date Time Temp Pulse Resp B/P Pulse Ox O2 Delivery O2 Flow Rate FiO2 04/27/17 08:43 80 20 95 21 04/27/17 08:18 98.2 165/75 04/27/17 07:53 Room Air 04/25/17 13:28 2.0 Intake and Output 04/26/17 04/26/17 04/27/17 15:00 23:00 07:00 Intake Total 1350 ml 700 ml Output Total 1100 ml 1800 ml Balance 250 ml -1100 ml Exam Constitutional: alert, oriented, well developed Psych: nl mood/affect, no complaints Head: atraumatic, normocephalic Eyes: EOMI, PERRL, nl conjunctiva, nl lids, nl sclera ENMT: nl external ears & nose, nl lips & teeth, nl nasal mucosa & septum Respiratory: clear to auscultation, normal air movement Cardiovascular: nl pulses, regular rate and rhythm Gastrointestinal: nl liver, spleen, non-tender, soft Musculoskeletal: nl extremities to inspection, nl gait and stance Results Result Diagram: 04/27/1772104/27/17721 Results 24 hrs Laboratory Tests Test 04/26/17 12:00 04/27/17 07:22 Vancomycin Level Trough 13.1 White Blood Count 9.7 # Red Blood Count 4.34 Hemoglobin 11.4 L Hematocrit 36.5 L Mean Corpuscular Volume 84.1 Mean Corpuscular Hemoglobin 26.3 L Mean Corpuscular Hemoglobin Concent 31.2 L Red Cell Distribution Width 17.0 H Platelet Count 376 Mean Platelet Volume 12.5 H Neutrophils % 75.4 Lymphocytes % 10.2 L Monocytes % 8.5 Eosinophils % 4.4 Basophils % 0.9 Nucleated Red Blood Cells % 0.0 Neutrophils # 7.3 Lymphocytes # 1.0 Monocytes # 0.8 Eosinophils # 0.4 Basophils # 0.1 Nucleated Red Blood Cells # 0.0 Sodium Level 147 H Potassium Level 4.0 Chloride Level 110 Carbon Dioxide Level 23 Anion Gap 18 H Blood Urea Nitrogen 19 Creatinine 1.08 H Glucose Level 132 Calcium Level 9.8 Medications Medications Current Medications Cefepime HCl 50 ml @ 100 mls/hr Q12 IVPB Last administered on 04/27/17t 08:48 ; Admin Dose 100 MLS/HR; Start 04/25/17 at 12:30 Vancomycin HCl (Vancocin) 100 ml @ 100 mls/hr Q12H IVPB Last administered on 04/27/17 00:31; Admin Dose 100 MLS/HR; Start 04/25/17 at 13:00 Apixaban (Eliquis) 2.5 mg BID PO Last administered on 04/27/17 08:48; Admin Dose 2.5 MG; Start 04/26/17 at 09:00 Atenolol (Tenormin) 12.5 mg BID PO Last administered on 04/27/17 08:48; Admin Dose 12.5 MG; Start 04/25/17 at 21:00 Metoprolol Tartrate (Lopressor) 5 mg Q4H PRN IV HR>110 Hold SBP<100; Start at 15:00 Acetaminophen (Tylenol Liquid) 650 mg Q4H PRN GTB PAIN OR TEMP ABOVE 38C Last administered on 04/27/17 10:27; Admin Dose 650 MG; Start 04/25/17 at 15:30 Bisacodyl (Dulcolax Supp) 10 mg DAILY PRN [place] PRN; Start 04/25/17 at 15:30 Eye Lubricant (Artificial Tears Oph) 2 drop Q6H PRN BOTH EYES DRY EYES Last administered on 04/25/17 22:34; Admin Dose 2 DROP; Start 04/25/17 at 15:30 Ondansetron HCl (Zofran Inj) 4 mg Q6H PRN IV NAUSEA AND/OR VOMITING; Start at 15:30 Lansoprazole (Prevacid) 30 mg DAILY@06 GTB Last administered on 04/27/17 05: 41; Admin Dose 30 MG; Start 04/26/17 at 06:02 Furosemide (Lasix) 20 mg DAILY IV Last administered on 04/27/17 08:48; Admin Dose 20 MG; Start 04/26/17 at 14:30 SHELBY SHUKLA MD Apr 27, 2017 10:56
--- NOTE | 2017-04-27 10:56 | CONS ---
Date/Time of Note Date/Time of Note DATE: 04/26/17 TIME: 10:54 Assessment/Plan Assessment/Plan Chief Complaint/Hosp Course - recurrent sepsis, probably due to aspiration pneumonia/pneumonitis or bronchitis - RANDOLPH, probably due to fever - s/p sepsis due to bacteremia and UTI - s/p enterococcus bacteremia, tip of PICC grew Group B strep. Transthoracic echo on 01/16/2017, 03/25/2017 did not reveal valvular vegetation but difficult to assess MV. Pt was supposed to take an empiric course of endocarditis through 04/23/2017; Pt's said that she had completed antibiotics on 04/24/2017 - h/o rheumatic heart disease (probable rheumatic, severe MS on transthoracic echo) - recurrent UTI due to E. coli, proteus - dysphagia s/p PEG - diffuse moderate degree of gastritis s/p EGD 02/15/2017 - h/o gastritis due to H. pylori based on pathology 02/15/2017; Pt completed clarithromycin-based regimen (02/20/2017-), [id number] - h/o bleeding from GT site, and blood clots in tube feed, resolved - s/p recurrent CVA - h/o possible aspiration, improved - encephalopathy due to CVA. CSF from 01/19/2017: WBC=3, RBC=0, glu 53, pro=61, CSF ([place] serology negative, HSV negative, cocci CF negative, encephalitis meningitis panel could not be done due to a lack of sample), serum ([place] PCR negative, crypto antigen negative, cocci CF negative, histo CF negative). - h/o bacteremia due to CoNS, probable contaminant. - h/o MARIELA - A fib - h/o DVT - h/o LLE ischemia s/p thrombolysis and subsequent open thrombectomy and fasciotomy at [facility] 09/2015 - h/o thrombus on DEBBIE per records from [facility] - h/o funguria recommendations: - monitor crcl closely - pending results f/u - await sputum culture - cont. empiric IV vancomycin and cefepime Problems: Consultation Date/Type/Reason Admit Date/Time Apr 25, 2017 at 04:52 Initial Consult Date 04/25/17 Type of Consultation: id Referring Provider: ROXANA TROO MD 24 HR Interval Summary Free Text/Dictation late entry for 04.26.17 Exam/Review of Systems Vital Signs Vitals Vital Signs Date Time Temp Pulse Resp B/P Pulse Ox O2 Delivery O2 Flow Rate FiO2 04/27/17 08:43 80 20 95 21 04/27/17 08:18 98.2 165/75 04/27/17 07:53 Room Air 04/25/17 13:28 2.0 Intake and Output 04/26/17 04/26/17 04/27/17 15:00 23:00 07:00 Intake Total 1350 ml 700 ml Output Total 1100 ml 1800 ml Balance 250 ml -1100 ml Exam Constitutional: alert, oriented, well developed Psych: nl mood/affect, no complaints Head: atraumatic, normocephalic Eyes: EOMI, PERRL, nl conjunctiva, nl lids, nl sclera ENMT: nl external ears & nose, nl lips & teeth, nl nasal mucosa & septum Respiratory: clear to auscultation, normal air movement Cardiovascular: nl pulses, regular rate and rhythm Gastrointestinal: nl liver, spleen, non-tender, soft Musculoskeletal: nl extremities to inspection, nl gait and stance Results Result Diagram: 04/27/1772104/27/17721 Results 24 hrs Laboratory Tests Test 04/26/17 12:00 04/27/17 07:22 Vancomycin Level Trough 13.1 White Blood Count 9.7 # Red Blood Count 4.34 Hemoglobin 11.4 L Hematocrit 36.5 L Mean Corpuscular Volume 84.1 Mean Corpuscular Hemoglobin 26.3 L Mean Corpuscular Hemoglobin Concent 31.2 L Red Cell Distribution Width 17.0 H Platelet Count 376 Mean Platelet Volume 12.5 H Neutrophils % 75.4 Lymphocytes % 10.2 L Monocytes % 8.5 Eosinophils % 4.4 Basophils % 0.9 Nucleated Red Blood Cells % 0.0 Neutrophils # 7.3 Lymphocytes # 1.0 Monocytes # 0.8 Eosinophils # 0.4 Basophils # 0.1 Nucleated Red Blood Cells # 0.0 Sodium Level 147 H Potassium Level 4.0 Chloride Level 110 Carbon Dioxide Level 23 Anion Gap 18 H Blood Urea Nitrogen 19 Creatinine 1.08 H Glucose Level 132 Calcium Level 9.8 Medications Medications Current Medications Cefepime HCl 50 ml @ 100 mls/hr Q12 IVPB Last administered on 04/27/17t 08:48 ; Admin Dose 100 MLS/HR; Start 04/25/17 at 12:30 Vancomycin HCl (Vancocin) 100 ml @ 100 mls/hr Q12H IVPB Last administered on 04/27/17 00:31; Admin Dose 100 MLS/HR; Start 04/25/17 at 13:00 Apixaban (Eliquis) 2.5 mg BID PO Last administered on 04/27/17 08:48; Admin Dose 2.5 MG; Start 04/26/17 at 09:00 Atenolol (Tenormin) 12.5 mg BID PO Last administered on 04/27/17 08:48; Admin Dose 12.5 MG; Start 04/25/17 at 21:00 Metoprolol Tartrate (Lopressor) 5 mg Q4H PRN IV HR>110 Hold SBP<100; Start at 15:00 Acetaminophen (Tylenol Liquid) 650 mg Q4H PRN GTB PAIN OR TEMP ABOVE 38C Last administered on 04/27/17 10:27; Admin Dose 650 MG; Start 04/25/17 at 15:30 Bisacodyl (Dulcolax Supp) 10 mg DAILY PRN [place] PRN; Start 04/25/17 at 15:30 Eye Lubricant (Artificial Tears Oph) 2 drop Q6H PRN BOTH EYES DRY EYES Last administered on 04/25/17 22:34; Admin Dose 2 DROP; Start 04/25/17 at 15:30 Ondansetron HCl (Zofran Inj) 4 mg Q6H PRN IV NAUSEA AND/OR VOMITING; Start at 15:30 Lansoprazole (Prevacid) 30 mg DAILY@06 GTB Last administered on 04/27/17 05: 41; Admin Dose 30 MG; Start 04/26/17 at 06:02 Furosemide (Lasix) 20 mg DAILY IV Last administered on 04/27/17 08:48; Admin Dose 20 MG; Start 04/26/17 at 14:30 SHELBY SHUKLA MD Apr 27, 2017 10:56
--- NOTE | 2017-04-27 11:00 | CONS ---
Date/Time of Note Date/Time of Note DATE: 04/27/17 TIME: 10:59 Assessment/Plan Assessment/Plan Additional Assessment/Plan 1. Atrial fibrillation with rapid ventricular response-currently well rate controlled/NL TSH - rate controlled now, no class I indication for pacer 2. Congestive heart failure, likely systolic and diastolic, acute on chronic, but most recent echo January 2017 revealing an EF of 45%, cardiomyopathy with mildly decreased left ventricular ejection fraction approximately 45%.- keep euvolemic. 3. Hypertension, under reasonable control. 4. Fevers- on anti-Bx, ID to follow 5. History of mitral stenosis, severe by most recent echo, likely rheumatic by visualization- unchanged 6. Anemia. 7. Leukocytosis. 8. History of deep venous thrombosis. Consultation Date/Type/Reason Admit Date/Time Apr 25, 2017 at 04:52 Initial Consult Date 04/25/17 Type of Consultation: id Referring Provider: ROXANA TORO MD 24 HR Interval Summary Free Text/Dictation NO acute events - BP and HR stable now ROS: + fever, no chills, no nausea, no vomiting, no diarrhea/constipation No recent weight changes No chest pain, no PND, no orthopnea No dizziness, blurred vision No thirst, no heat or cold intolerance Exam/Review of Systems Vital Signs Vitals Vital Signs Date Time Temp Pulse Resp B/P Pulse Ox O2 Delivery O2 Flow Rate FiO2 04/27/17 08:43 80 20 95 21 04/27/17 08:18 98.2 165/75 04/27/17 07:53 Room Air 04/25/17 13:28 2.0 Intake and Output 04/26/17 04/26/17 04/27/17 15:00 23:00 07:00 Intake Total 1350 ml 700 ml Output Total 1100 ml 1800 ml Balance 250 ml -1100 ml Exam General: WN/WD/NAD, AOx 2-3 HEENT: Unicetric/atraumatic/EOMI (follows commands) NECK: JVD elevated, no thyromegaly Lymph: no lymphadenopathy HEART: irregular with no S3, II/ systolic murmur at apex and 2/6 ab apex diastolic LUNGS: Coarse sounds ABD: soft, NT, ND, +BS : Intact Neuro: non focal SKIN: chronic changes EXT: trace edema Results Result Diagram: 10/24/17 0722 10/24/17 0722 Results 24 hrs Laboratory Tests Test 04/26/17 12:00 04/27/17 07:22 Vancomycin Level Trough 13.1 White Blood Count 9.7 # Red Blood Count 4.34 Hemoglobin 11.4 L Hematocrit 36.5 L Mean Corpuscular Volume 84.1 Mean Corpuscular Hemoglobin 26.3 L Mean Corpuscular Hemoglobin Concent 31.2 L Red Cell Distribution Width 17.0 H Platelet Count 376 Mean Platelet Volume 12.5 H Neutrophils % 75.4 Lymphocytes % 10.2 L Monocytes % 8.5 Eosinophils % 4.4 Basophils % 0.9 Nucleated Red Blood Cells % 0.0 Neutrophils # 7.3 Lymphocytes # 1.0 Monocytes # 0.8 Eosinophils # 0.4 Basophils # 0.1 Nucleated Red Blood Cells # 0.0 Sodium Level 147 H Potassium Level 4.0 Chloride Level 110 Carbon Dioxide Level 23 Anion Gap 18 H Blood Urea Nitrogen 19 Creatinine 1.08 H Glucose Level 132 Calcium Level 9.8 Medications Medications Current Medications Cefepime HCl 50 ml @ 100 mls/hr Q12 IVPB Last administered on 04/27/17 08:48 ; Admin Dose 100 MLS/HR; Start 04/25/17 at 12:30 Vancomycin HCl (Vancocin) 100 ml @ 100 mls/hr Q12H IVPB Last administered on 04/27/17 00:31; Admin Dose 100 MLS/HR; Start 04/25/17 at 13:00 Apixaban (Eliquis) 2.5 mg BID PO Last administered on 04/27/17 08:48; Admin Dose 2.5 MG; Start 04/26/17 at 09:00 Atenolol (Tenormin) 12.5 mg BID PO Last administered on 04/27/17 08:48; Admin Dose 12.5 MG; Start 04/25/17 at 21:00 Metoprolol Tartrate (Lopressor) 5 mg Q4H PRN IV HR>110 Hold SBP<100; Start at 15:00 Acetaminophen (Tylenol Liquid) 650 mg Q4H PRN GTB PAIN OR TEMP ABOVE 38C Last administered on 04/27/17 10:27; Admin Dose 650 MG; Start 04/25/17 at 15:30 Bisacodyl (Dulcolax Supp) 10 mg DAILY PRN [place] PRN; Start 04/25/17 at 15:30 Eye Lubricant (Artificial Tears Oph) 2 drop Q6H PRN BOTH EYES DRY EYES Last administered on 04/25/17 22:34; Admin Dose 2 DROP; Start 04/25/17 at 15:30 Ondansetron HCl (Zofran Inj) 4 mg Q6H PRN IV NAUSEA AND/OR VOMITING; Start at 15:30 Lansoprazole (Prevacid) 30 mg DAILY@06 GTB Last administered on 04/27/17 05: 41; Admin Dose 30 MG; Start 04/26/17 at 06:02 Furosemide (Lasix) 20 mg DAILY IV Last administered on 04/27/17 08:48; Admin Dose 20 MG; Start 04/26/17 at 14:30 YAJAIRA ALVAREZ MD Apr 27, 2017 11:00
--- NOTE | 2017-04-27 15:24 | PN ---
Date/Time of Note Date/Time of Note DATE: 04/27/17 TIME: 15:21 Assessment/Plan VTE Prophylaxis VTE Prophylaxis Intervention: SCD's Lines/Catheters IV C[facility] Type (from [facility] Saline Lock Urinary Cath still in place: Yes Reason Cath still needed: urinary retention Assessment/Plan Chief Complaint/Hosp Course Patient urine culture came back with VRE, start Zyvox. Patient is awake alert, hemodynamically stable. Assessment/Plan - Recurrent sepsis secondary to early pneumonia versus bronchitis. Continue antibiotics per ID. Dr. Bosch is following in ID consultation. - Bilateral thalamic infarctions. Dr. Ramirez is following in neurology consultation. - Dysphagia with G-tube. - Atrial fibrillation with rapid ventricular response. Dr. Armenta is following and cardiology consultation. Continue Eliquis and atenolol. - CHF, continue Lasix. Monitor electrolytes. - Thrombosis of the bilateral cephalic veins. Further recommendations based on clinical course. Plan of care discussed with Dr. Valdovinos. Problems: Exam/Review of Systems Vital Signs Vitals Vital Signs Date Time Temp Pulse Resp B/P Pulse Ox O2 Delivery O2 Flow Rate FiO2 04/27/17 12:37 98 04/27/17 11:48 Room Air 04/27/17 11:32 98.1 18 124/58 94 04/27/17 08:43 21 04/25/17 13:28 2.0 Intake and Output 04/26/17 04/26/17 04/27/17 15:00 23:00 07:00 Intake Total 1350 ml 700 ml Output Total 1100 ml 1800 ml Balance 250 ml -1100 ml Exam Constitutional: alert, oriented Respiratory: diminished breath sounds Cardiovascular: irregular rhythm, nl pulses Gastrointestinal: non-tender, other (G-tube), soft Musculoskeletal: muscle weakness Results Result Diagram: 04/27/1772104/27/17 0722 Results 24 hrs Laboratory Tests Test 04/27/17 07:22 White Blood Count 9.7 # Red Blood Count 4.34 Hemoglobin 11.4 L Hematocrit 36.5 L Mean Corpuscular Volume 84.1 Mean Corpuscular Hemoglobin 26.3 L Mean Corpuscular Hemoglobin Concent 31.2 L Red Cell Distribution Width 17.0 H Platelet Count 376 Mean Platelet Volume 12.5 H Neutrophils % 75.4 Lymphocytes % 10.2 L Monocytes % 8.5 Eosinophils % 4.4 Basophils % 0.9 Nucleated Red Blood Cells % 0.0 Neutrophils # 7.3 Lymphocytes # 1.0 Monocytes # 0.8 Eosinophils # 0.4 Basophils # 0.1 Nucleated Red Blood Cells # 0.0 Sodium Level 147 H Potassium Level 4.0 Chloride Level 110 Carbon Dioxide Level 23 Anion Gap 18 H Blood Urea Nitrogen 19 Creatinine 1.08 H Glucose Level 132 Calcium Level 9.8 Medications Medications Current Medications Cefepime HCl 50 ml @ 100 mls/hr Q12 IVPB Last administered on 04/27/17 08:48 ; Admin Dose 100 MLS/HR; Start 04/25/17 at 12:30 Vancomycin HCl (Vancocin) 100 ml @ 100 mls/hr Q12H IVPB Last administered on 04/27/17 12:20; Admin Dose 100 MLS/HR; Start 04/25/17 at 13:00 Apixaban (Eliquis) 2.5 mg BID PO Last administered on 04/27/17 08:48; Admin Dose 2.5 MG; Start 04/26/17 at 09:00 Atenolol (Tenormin) 12.5 mg BID PO Last administered on 04/27/17 08:48; Admin Dose 12.5 MG; Start 04/25/17 at 21:00 Metoprolol Tartrate (Lopressor) 5 mg Q4H PRN IV HR>110 Hold SBP<100; Start at 15:00 Acetaminophen (Tylenol Liquid) 650 mg Q4H PRN GTB PAIN OR TEMP ABOVE 38C Last administered on 04/27/17 10:27; Admin Dose 650 MG; Start 04/25/17 at 15:30 Bisacodyl (Dulcolax Supp) 10 mg DAILY PRN [place] PRN; Start 04/25/17 at 15:30 Eye Lubricant (Artificial Tears Oph) 2 drop Q6H PRN BOTH EYES DRY EYES Last administered on 04/25/17 22:34; Admin Dose 2 DROP; Start 04/25/17 at 15:30 Ondansetron HCl (Zofran Inj) 4 mg Q6H PRN IV NAUSEA AND/OR VOMITING; Start at 15:30 Lansoprazole (Prevacid) 30 mg DAILY@06 GTB Last administered on 04/27/17 05: 41; Admin Dose 30 MG; Start 04/26/17 at 06:02 Furosemide (Lasix) 20 mg DAILY IV Last administered on 04/27/17 08:48; Admin Dose 20 MG; Start 04/26/17 at 14:30 LAWRENCE PICKERING Apr 27, 2017 15:24
[2017-04-27] MEDS: LINEZOLID 600 MG/D5W (PMX) 300 ML IVPB SCH ×2 (15:30→21:58)
--- NOTE | 2017-04-27 22:39 | RADRPT ---
Vent Rate: 117 bpm RR Interval: [address] Interval: 0 msec QRS Duration: 62 msec QT Interval: 312 msec QTC Interval: 435 msec P-R-T [place]: 0 - -2 - 47 degrees Atrial fibrillation with rapid ventricular response Nonspecific T wave abnormality , probably digitalis effect Abnormal ECG Electronically Signed By: Travis Armenta [id number]
--- NOTE | 2017-04-27 22:39 | RADRPT ---
Vent Rate: 117 bpm RR Interval: 0 msec [place] Interval: 0 msec QRS Duration: 62 msec QT Interval: 312 msec QTC Interval: 435 msec P-R-T [place]: 0 - -2 - 47 degrees Atrial fibrillation with rapid ventricular response Nonspecific T wave abnormality , probably digitalis effect Abnormal ECG Electronically Signed By: Travis Armenta [id number]
[2017-04-28] VITALS (12 sets, daily range): BP systolic 104–140; BP diastolic 53–81; PULSE 80–109; RESP 16–20
[2017-04-28] MEDS: VANCOMYCIN 500MG/NS (PMX) 100 ML IVPB SCH (00:46)
[2017-04-28] MEDS: LEVALBUTEROL (NEB) 0.31 MG/3 ML AMP INH SCH ×4 (01:25→19:49)
[2017-04-28] MEDS: LANSOPRAZOLE 30 MG CAP GTB SCH (06:12)
[2017-04-28] MEDS: CEFEPIME 2GM/50 ML (PMX) 50 ML IVPB SCH ×2 (08:52→21:26)
[2017-04-28] MEDS: FUROSEMIDE 20 MG INJ IV SCH (08:55)
[2017-04-28] MEDS: ATENOLOL 25 MG TAB PO SCH ×2 (08:56→21:28)
[2017-04-28] MEDS: APIXABAN 5 MG TABLET PO SCH ×2 (08:56→21:29)
[2017-04-28] MEDS: LINEZOLID 600 MG/D5W (PMX) 300 ML IVPB SCH ×2 (10:47→21:27)
--- NOTE | 2017-04-28 13:10 | CONS ---
Date/Time of Note Date/Time of Note DATE: 04/28/17 TIME: 13:03 Assessment/Plan Assessment/Plan Additional Assessment/Plan - recurrent sepsis, probably due to aspiration pneumonia/pneumonitis or bronchitis - RANDOL[place], probably due to fever - s/p sepsis due to bacteremia and UTI - s/p enterococcus bacteremia, tip of PICC grew Group B strep. Transthoracic echo on 01/16/2017, 03/25/2017 did not reveal valvular vegetation but difficult to assess MV. Pt was supposed to take an empiric course of endocarditis through 04/23/2017; Pt's said that she had completed antibiotics on 04/24/2017 - h/o rheumatic heart disease (probable rheumatic, severe MS on transthoracic echo) - recurrent UTI due to E. coli, proteus - dysphagia s/p PEG - diffuse moderate degree of gastritis s/p EGD 02/15/2017 - h/o gastritis due to H. 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 CSF from 01/19/2017: WBC=3, RBC=0, glu 53, pro=61, CSF ([place] serology negative, HSV negative, cocci CF negative, encephalitis meningitis panel could not be done due to a lack of sample), serum ([place] PCR negative, crypto antigen negative, cocci CF negative, histo CF negative). - h/o bacteremia due to CoNS, probable contaminant. - h/o MARIELA - A fib - h/o DVT - h/o LLE ischemia s/p thrombolysis and subsequent open thrombectomy and fasciotomy at [facility] 09/2015 - h/o thrombus on DEBBIE per records from [facility] - h/o funguria recommendations: - monitor crcl closely - pending results f/u - await sputum culture - cont. empiric IV vancomycin and cefepime - Management kait Castellanos - Plan of care Dr Bosch Consultation Date/Type/Reason Admit Date/Time Apr 25, 2017 at 04:52 Initial Consult Date 04/25/17 Type of Consultation: id Referring Provider: ROXANA TORO MD 24 HR Interval Summary Free Text/Dictation - alert, responsive. - afebrile, wbc wnl - sputum culture pending - dw staff Constitutional: requiring IVF, requiring O2 Exam/Review of Systems Vital Signs Vitals Vital Signs Date Time Temp Pulse Resp B/P Pulse Ox O2 Delivery O2 Flow Rate FiO2 04/28/17 12:09 109 04/28/17 11:55 98.5 16 124/60 97 04/28/17 08:01 21 04/27/17 15:36 Room Air 04/25/17 13:28 2.0 Intake and Output 04/27/17 04/27/17 04/28/17 15:00 23:00 07:00 Intake Total 1050 ml 1100 ml Output Total 1500 ml 500 ml Balance -450 ml 600 ml Exam Constitutional: alert Psych: nl mood/affect Respiratory: diminished breath sounds Cardiovascular: nl pulses Gastrointestinal: non-tender, other (GT intact), soft Musculoskeletal: nl extremities to inspection Extremities: normal pulses Neurological: confused Results Result Diagram: 04/28/17 0739 04/28/17 0739 Results 24 hrs Laboratory Tests Test 04/28/17 07:39 White Blood Count 10.5 Red Blood Count 4.13 L Hemoglobin 11.1 L Hematocrit 35.2 L Mean Corpuscular Volume 85.2 Mean Corpuscular Hemoglobin 26.9 L Mean Corpuscular Hemoglobin Concent 31.5 L Red Cell Distribution Width 16.6 H Platelet Count 391 Mean Platelet Volume 13.0 H Neutrophils % 74.0 Lymphocytes % 10.7 L Monocytes % 8.5 Eosinophils % 5.3 Basophils % 0.8 Nucleated Red Blood Cells % 0.0 Neutrophils # 7.8 H Lymphocytes # 1.1 Monocytes # 0.9 Eosinophils # 0.6 H Basophils # 0.1 Nucleated Red Blood Cells # 0.0 Sodium Level 144 Potassium Level 4.2 Chloride Level 108 Carbon Dioxide Level 25 Anion Gap 15 Blood Urea Nitrogen 28 H Creatinine 1.08 H Glucose Level 109 Calcium Level 10.0 Medications Medications Current Medications Cefepime HCl (Maxipime 2gm/50 ml (Pmx)) 50 ml @ 100 mls/hr Q12 IVPB Last administered on 04/28/17t 08:52; Admin Dose 100 MLS/HR; Start 04/25/17 at 12: 30 Apixaban (Eliquis) 2.5 mg BID PO Last administered on 04/28/17 08:56; Admin Dose 2.5 MG; Start 04/26/17 at 09:00 Atenolol (Tenormin) 12.5 mg BID PO Last administered on 04/28/17 08:56; Admin Dose 12.5 MG; Start 04/25/17 at 21:00 Metoprolol Tartrate (Lopressor) 5 mg Q4H PRN IV HR>110 Hold SBP<100; Start at 15:00 Acetaminophen (Tylenol Liquid) 650 mg Q4H PRN GTB PAIN OR TEMP ABOVE 38C Last administered on 04/27/17 10:27; Admin Dose 650 MG; Start 04/25/17 at 15:30 Bisacodyl (Dulcolax Supp) 10 mg DAILY PRN [place] PRN; Start 04/25/17 at 15:30 Eye Lubricant (Artificial Tears Oph) 2 drop Q6H PRN BOTH EYES DRY EYES Last administered on 04/25/17 22:34; Admin Dose 2 DROP; Start 04/25/17 at 15:30 Ondansetron HCl (Zofran Inj) 4 mg Q6H PRN IV NAUSEA AND/OR VOMITING; Start at 15:30 Lansoprazole (Prevacid) 30 mg DAILY@06 GTB Last administered on 04/28/17 06: 12; Admin Dose 30 MG; Start 04/26/17 at 06:02 Furosemide 20 mg 20 mg DAILY IV Last administered on 04/28/17 08:55; Admin Dose 20 MG; Start 04/26/17 at 14:30 Linezolid (Zyvox 600mg/D5W (Pmx)) 300 ml @ 300 mls/hr Q12 IVPB Last administered on 04/28/17 10:47; Admin Dose 300 MLS/HR; Start 04/27/17 at 15: 30 ALEXIS NAJERA Apr 28, 2017 13:10
--- NOTE | 2017-04-28 13:21 | CONS ---
Date/Time of Note Date/Time of Note DATE: 04/28/17 TIME: 13:19 Assessment/Plan Assessment/Plan Chief Complaint/Hosp Course IMPRESSION: 1. Atrial fibrillation with rapid ventricular response-currently well rate controlled/NL TSH 2. Congestive heart failure, likely systolic and diastolic, acute on chronic, but most recent echo January 2017 revealing an EF of 45%, cardiomyopathy with mildly decreased left ventricular ejection fraction approximately 45%. 3. Hypertension, under reasonable control. 4. Fevers. 5. History of mitral stenosis, severe by most recent echo, likely rheumatic by visualization. 6. Anemia. 7. Leukocytosis. 8. History of deep venous thrombosis. Recc: -Tele -serial ecg's -Continue eliquis/atenolol and follow BP/HR closely -Contineu abx's and f/u cx data -CHange lasix to PO and follow volume status/terrazzo polisher closely Problems: Consultation Date/Type/Reason Admit Date/Time Apr 25, 2017 at 04:52 Initial Consult Date 04/25/17 Type of Consultation: cardiology Reason for Consultation AF Referring Provider: ROXANA TORO MD Exam/Review of Systems Vital Signs Vitals Vital Signs Date Time Temp Pulse Resp B/P Pulse Ox O2 Delivery O2 Flow Rate FiO2 04/28/17 12:09 109 04/28/17 11:55 98.5 16 124/60 97 04/28/17 08:01 21 04/27/17 15:36 Room Air 04/25/17 13:28 2.0 Intake and Output 04/27/17 04/27/17 04/28/17 15:00 23:00 07:00 Intake Total 1050 ml 1100 ml Output Total 1500 ml 500 ml Balance -450 ml 600 ml Exam Review of Systems: CONSTITUTIONAL: No fevers, chills. PULMONARY: No sob CARDIOVASCULAR: No chest pain/palpitations GASTROINTESTINAL: No nausea/vomiting. GENITOURINARY: No hematuria/dysuria. MUSCULOSKELETAL: No myagias/arthalgias. PSYCHIATRIC: The patient denies depression. NEUROLOGIC: No weakness Constitutional: alert Psych: no complaints Head: normocephalic ENMT: mucosa pink and moist Neck: jvd (8 cm water), supple Respiratory: diminished breath sounds (at bases/B) Cardiovascular: regular rate and rhythm Gastrointestinal: non-tender, soft Musculoskeletal: muscle tone (normal) Extremities: edema (none) Neurological: other (NO focal deficits) Results Result Diagram: 04/28/17 0739 04/28/17 0739 Results 24 hrs Laboratory Tests Test 04/28/17 07:39 White Blood Count 10.5 Red Blood Count 4.13 L Hemoglobin 11.1 L Hematocrit 35.2 L Mean Corpuscular Volume 85.2 Mean Corpuscular Hemoglobin 26.9 L Mean Corpuscular Hemoglobin Concent 31.5 L Red Cell Distribution Width 16.6 H Platelet Count 391 Mean Platelet Volume 13.0 H Neutrophils % 74.0 Lymphocytes % 10.7 L Monocytes % 8.5 Eosinophils % 5.3 Basophils % 0.8 Nucleated Red Blood Cells % 0.0 Neutrophils # 7.8 H Lymphocytes # 1.1 Monocytes # 0.9 Eosinophils # 0.6 H Basophils # 0.1 Nucleated Red Blood Cells # 0.0 Sodium Level 144 Potassium Level 4.2 Chloride Level 108 Carbon Dioxide Level 25 Anion Gap 15 Blood Urea Nitrogen 28 H Creatinine 1.08 H Glucose Level 109 Calcium Level 10.0 Medications Medications Current Medications Cefepime HCl (Maxipime 2gm/50 ml (Pmx)) 50 ml @ 100 mls/hr Q12 IVPB Last administered on 04/28/17 08:52; Admin Dose 100 MLS/HR; Start 04/25/17 at 12: 30 Apixaban (Eliquis) 2.5 mg BID PO Last administered on 04/28/17 08:56; Admin Dose 2.5 MG; Start 04/26/17 at 09:00 Atenolol (Tenormin) 12.5 mg BID PO Last administered on 04/28/17 08:56; Admin Dose 12.5 MG; Start 04/25/17 at 21:00 Metoprolol Tartrate (Lopressor) 5 mg Q4H PRN IV HR>110 Hold SBP<100; Start at 15:00 Acetaminophen (Tylenol Liquid) 650 mg Q4H PRN GTB PAIN OR TEMP ABOVE 38C Last administered on 04/27/17 10:27; Admin Dose 650 MG; Start 04/25/17 at 15:30 Bisacodyl (Dulcolax Supp) 10 mg DAILY PRN [place] PRN; Start 04/25/17 at 15:30 Eye Lubricant (Artificial Tears Oph) 2 drop Q6H PRN BOTH EYES DRY EYES Last administered on 04/25/17 22:34; Admin Dose 2 DROP; Start 04/25/17 at 15:30 Ondansetron HCl (Zofran Inj) 4 mg Q6H PRN IV NAUSEA AND/OR VOMITING; Start at 15:30 Lansoprazole (Prevacid) 30 mg DAILY@06 GTB Last administered on 04/28/17 06: 12; Admin Dose 30 MG; Start 04/26/17 at 06:02 Furosemide 20 mg 20 mg DAILY IV Last administered on 04/28/17 08:55; Admin Dose 20 MG; Start 04/26/17 at 14:30 Linezolid (Zyvox 600mg/D5W (Pmx)) 300 ml @ 300 mls/hr Q12 IVPB Last administered on 04/28/17 10:47; Admin Dose 300 MLS/HR; Start 04/27/17 at 15: 30 MINOO REY Apr 28, 2017 13:21
--- NOTE | 2017-04-28 14:04 | PN ---
Date/Time of Note Date/Time of Note DATE: 04/28/17 TIME: 13:55 Assessment/Plan VTE Prophylaxis VTE Prophylaxis Intervention: SCD's Lines/Catheters IV [facility] (from [facility] Peripheral IV Urinary Cath still in place: Yes Reason Cath still needed: urinary retention Assessment/Plan Chief Complaint/Hosp Course Patient is awake alert, hemodynamically stable, atrial fibrillation at controlled rate on telemetry. Assessment/Plan - Recurrent sepsis secondary to early pneumonia versus bronchitis. Continue cefepime and Zyvox. Dr. Bosch is following in ID consultation. -VRE in urine, continue Zyvox. - Bilateral thalamic infarctions. Dr. Ramirez is following in neurology consultation. - Dysphagia with G-tube. - Atrial fibrillation with rapid ventricular response. Dr. Armenta is following and cardiology consultation. Continue Eliquis and atenolol. - CHF, continue Lasix. Monitor electrolytes. - Thrombosis of the bilateral cephalic veins. Further recommendations based on clinical course. Plan of care discussed with Dr. Valdovinos. Problems: Exam/Review of Systems Vital Signs Vitals Vital Signs Date Time Temp Pulse Resp B/P Pulse Ox O2 Delivery O2 Flow Rate FiO2 04/28/17 12:09 109 04/28/17 11:55 98.5 16 124/60 97 04/28/17 08:01 21 04/27/17 15:36 Room Air 04/25/17 13:28 2.0 Intake and Output 04/27/17 04/27/17 04/28/17 15:00 23:00 07:00 Intake Total 1050 ml 1100 ml Output Total 1500 ml 500 ml Balance -450 ml 600 ml Exam Constitutional: alert, oriented Respiratory: diminished breath sounds Cardiovascular: irregular rhythm, nl pulses Gastrointestinal: non-tender, other (G-tube), soft Musculoskeletal: muscle weakness Results Result Diagram: 04/28/17 0739 04/28/17 0739 Results 24 hrs Laboratory Tests Test 04/28/17 07:39 White Blood Count 10.5 Red Blood Count 4.13 L Hemoglobin 11.1 L Hematocrit 35.2 L Mean Corpuscular Volume 85.2 Mean Corpuscular Hemoglobin 26.9 L Mean Corpuscular Hemoglobin Concent 31.5 L Red Cell Distribution Width 16.6 H Platelet Count 391 Mean Platelet Volume 13.0 H Neutrophils % 74.0 Lymphocytes % 10.7 L Monocytes % 8.5 Eosinophils % 5.3 Basophils % 0.8 Nucleated Red Blood Cells % 0.0 Neutrophils # 7.8 H Lymphocytes # 1.1 Monocytes # 0.9 Eosinophils # 0.6 H Basophils # 0.1 Nucleated Red Blood Cells # 0.0 Sodium Level 144 Potassium Level 4.2 Chloride Level 108 Carbon Dioxide Level 25 Anion Gap 15 Blood Urea Nitrogen 28 H Creatinine 1.08 H Glucose Level 109 Calcium Level 10.0 Medications Medications Current Medications Cefepime HCl (Maxipime 2gm/50 ml (Pmx)) 50 ml @ 100 mls/hr Q12 IVPB Last administered on 04/28/17 08:52; Admin Dose 100 MLS/HR; Start 04/25/17 at 12: 30 Apixaban (Eliquis) 2.5 mg BID PO Last administered on 04/28/17 08:56; Admin Dose 2.5 MG; Start 04/26/17 at 09:00 Atenolol (Tenormin) 12.5 mg BID PO Last administered on 04/28/17 08:56; Admin Dose 12.5 MG; Start 04/25/17 at 21:00 Metoprolol Tartrate (Lopressor) 5 mg Q4H PRN IV HR>110 Hold SBP<100; Start at 15:00 Acetaminophen (Tylenol Liquid) 650 mg Q4H PRN GTB PAIN OR TEMP ABOVE 38C Last administered on 04/27/17 10:27; Admin Dose 650 MG; Start 04/25/17 at 15:30 Bisacodyl (Dulcolax Supp) 10 mg DAILY PRN [place] PRN; Start 04/25/17 at 15:30 Eye Lubricant (Artificial Tears Oph) 2 drop Q6H PRN BOTH EYES DRY EYES Last administered on 04/25/17 22:34; Admin Dose 2 DROP; Start 04/25/17 at 15:30 Ondansetron HCl (Zofran Inj) 4 mg Q6H PRN IV NAUSEA AND/OR VOMITING; Start at 15:30 Lansoprazole 30 mg 30 mg DAILY@06 GTB Last administered on 04/28/17 06:12; Admin Dose 30 MG; Start 04/26/17 at 06:02 Linezolid (Zyvox 600mg/D5W (Pmx)) 300 ml @ 300 mls/hr Q12 IVPB Last administered on 04/28/17t 10:47; Admin Dose 300 MLS/HR; Start 04/27/17 at 15: 30 Furosemide (Lasix) 20 mg DAILY PO ; Start 04/29/17 at 09:00 LAWRENCE PICKERING Apr 28, 2017 14:04
[2017-04-28] MEDS: ARTIFICIAL TEARS 15 ML OPH BOTH EYES PRN (21:37)
[2017-04-29] VITALS (12 sets, daily range): BP systolic 92–153; BP diastolic 54–64; PULSE 65–91; RESP 16–20
[2017-04-29] MEDS: LEVALBUTEROL (NEB) 0.31 MG/3 ML AMP INH SCH ×4 (01:25→19:26)
[2017-04-29] MEDS: LANSOPRAZOLE 30 MG CAP GTB SCH (05:20)
[2017-04-29] MEDS: FUROSEMIDE 20 MG TAB PO SCH (08:40)
[2017-04-29] MEDS: APIXABAN 5 MG TABLET PO SCH ×2 (08:40→21:27)
[2017-04-29] MEDS: LINEZOLID 600 MG/D5W (PMX) 300 ML IVPB SCH ×2 (08:42→21:27)
[2017-04-29] MEDS: ATENOLOL 25 MG TAB PO SCH ×2 (08:42→21:27)
[2017-04-29] MEDS: CEFEPIME 2GM/50 ML (PMX) 50 ML IVPB SCH ×2 (09:51→21:27)
[2017-04-29] MEDS: ACETAMINOPHEN 650MG/20.3ML CUP GTB PRN ×2 (11:07→21:27)
--- NOTE | 2017-04-29 15:13 | PN ---
Date/Time of Note Date/Time of Note DATE: 04/29/17 TIME: 15:12 Assessment/Plan Lines/Catheters IV Catheter Type (from [facility]): Saline Lock Urinary Cath still in place: Yes Assessment/Plan Assessment/Plan - Recurrent sepsis secondary to early pneumonia versus bronchitis. Continue cefepime and Zyvox. Dr. Bosch is following in ID consultation. -VRE in urine, continue Zyvox. - Bilateral thalamic infarctions. Dr. Ramirez is following in neurology consultation. - Dysphagia with G-tube. - Atrial fibrillation with rapid ventricular response. Dr. Armenta is following and cardiology consultation. Continue Eliquis and atenolol. - CHF, continue Lasix. Monitor electrolytes. - Thrombosis of the bilateral cephalic veins. Further recommendations based on clinical course. Plan of care discussed with Dr. Valdovinos. Subjective 24 Hr Interval Summary Respiratory: no complaints Cardiovascular: no complaints Gastrointestinal: no complaints Musculoskeletal: no complaints Exam/Review of Systems Vital Signs Vitals Vital Signs Date Time Temp Pulse Resp B/P Pulse Ox O2 Delivery O2 Flow Rate FiO2 04/29/17 15:07 98.0 78 18 92/55 97 04/29/17 13:15 21 04/27/17 15:36 Room Air 04/25/17 13:28 2.0 Intake and Output 04/28/17 04/28/17 04/29/17 15:00 23:00 07:00 Intake Total 700 ml 720 ml Output Total 700 ml 400 ml Balance 0 ml 320 ml Exam Constitutional: alert Respiratory: clear to auscultation Cardiovascular: nl pulses, other Gastrointestinal: non-tender, soft Musculoskeletal: nl extremities to inspection Extremities: normal pulses Neurological: confused Results Result Diagram: 04/29/1722 04/29/17 0622 Results 24 hrs Laboratory Tests Test 04/29/17 06:22 White Blood Count 11.0 H Red Blood Count 4.16 L Hemoglobin 11.1 L Hematocrit 35.3 L Mean Corpuscular Volume 84.9 Mean Corpuscular Hemoglobin 26.7 L Mean Corpuscular Hemoglobin Concent 31.4 L Red Cell Distribution Width 16.5 H Platelet Count 377 Mean Platelet Volume 12.8 H Neutrophils % 73.5 Lymphocytes % 10.2 L Monocytes % 8.5 Eosinophils % 6.4 Basophils % 0.9 Nucleated Red Blood Cells % 0.0 Neutrophils # 8.1 H Lymphocytes # 1.1 Monocytes # 0.9 Eosinophils # 0.7 H Basophils # 0.1 Nucleated Red Blood Cells # 0.0 Sodium Level 145 H Potassium Level 4.3 Chloride Level 107 Carbon Dioxide Level 24 Anion Gap 18 H Blood Urea Nitrogen 31 H Creatinine 1.00 Glucose Level 101 Calcium Level 9.6 Medications Medications Current Medications Cefepime HCl (Maxipime 2gm/50 ml (Pmx)) 50 ml @ 100 mls/hr Q12 IVPB Last administered on 04/29/17 09:51; Admin Dose 100 MLS/HR; Start 04/25/17 at 12: 30 Apixaban (Eliquis) 2.5 mg BID PO Last administered on 04/29/17 08:40; Admin Dose 2.5 MG; Start 04/26/17 at 09:00 Atenolol (Tenormin) 12.5 mg BID PO Last administered on 04/29/17 08:42; Admin Dose 12.5 MG; Start 04/25/17 at 21:00 Metoprolol Tartrate (Lopressor) 5 mg Q4H PRN IV HR>110 Hold SBP<100; Start at 15:00 Acetaminophen (Tylenol Liquid) 650 mg Q4H PRN GTB PAIN OR TEMP ABOVE 38C Last administered on 04/29/17 11:07; Admin Dose 650 MG; Start 04/25/17 at 15:30 Bisacodyl (Dulcolax Supp) 10 mg DAILY PRN [place] PRN; Start 04/25/17 at 15:30 Eye Lubricant (Artificial Tears Oph) 2 drop Q6H PRN BOTH EYES DRY EYES Last administered on 04/28/17 21:37; Admin Dose 2 DROP; Start 04/25/17 at 15:30 Ondansetron HCl (Zofran Inj) 4 mg Q6H PRN IV NAUSEA AND/OR VOMITING; Start at 15:30 Lansoprazole 30 mg 30 mg DAILY@06 GTB Last administered on 04/29/17 05:20; Admin Dose 30 MG; Start 04/26/17 at 06:02 Linezolid (Zyvox 600mg/D5W (Pmx)) 300 ml @ 300 mls/hr Q12 IVPB Last administered on 04/29/17 08:42; Admin Dose 300 MLS/HR; Start 04/27/17 at 15: 30 Furosemide (Lasix) 20 mg DAILY PO Last administered on 04/29/17 08:40; Admin Dose 20 MG; Start 04/29/17 at 09:00 ALEXIS NAJERA Apr 29, 2017 15:12
--- NOTE | 2017-04-29 19:19 | CONS ---
Date/Time of Note Date/Time of Note DATE: 04/29/17 TIME: 19:18 Assessment/Plan Assessment/Plan Chief Complaint/Hosp Course IMPRESSION: 1. Atrial fibrillation with rapid ventricular response-currently well rate controlled/NL TSH 2. Congestive heart failure, likely systolic and diastolic, acute on chronic, but most recent echo January 2017 revealing an EF of 45%, cardiomyopathy with mildly decreased left ventricular ejection fraction approximately 45%. 3. Hypertension, under reasonable control. 4. Fevers. 5. History of mitral stenosis, severe by most recent echo, likely rheumatic by visualization. 6. Anemia. 7. Leukocytosis. 8. History of deep venous thrombosis. 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 Problems: Consultation Date/Type/Reason Admit Date/Time Apr 25, 2017 at 04:52 Initial Consult Date 04/25/17 Type of Consultation: cardiology Reason for Consultation AF Referring Provider: ROXANA TORO MD Exam/Review of Systems Vital Signs Vitals Vital Signs Date Time Temp Pulse Resp B/P Pulse Ox O2 Delivery O2 Flow Rate FiO2 04/29/17 16:10 91 04/29/17 15:07 98.0 18 92/55 97 04/29/17 13:15 21 04/27/17 15:36 Room Air 04/25/17 13:28 2.0 Intake and Output 04/28/17 04/28/17 04/29/17 15:00 23:00 07:00 Intake Total 700 ml 720 ml Output Total 700 ml 400 ml Balance 0 ml 320 ml Exam Review of Systems: CONSTITUTIONAL: No fevers, chills. PULMONARY: No sob CARDIOVASCULAR: No chest pain/palpitations GASTROINTESTINAL: No nausea/vomiting. GENITOURINARY: No hematuria/dysuria. MUSCULOSKELETAL: No myagias/arthalgias. PSYCHIATRIC: The patient denies depression. NEUROLOGIC: No weakness Constitutional: alert Psych: no complaints Head: normocephalic ENMT: mucosa pink and moist Neck: jvd (9 cm water), supple Respiratory: diminished breath sounds (at bases/B) Cardiovascular: regular rate and rhythm Gastrointestinal: non-tender, soft Musculoskeletal: muscle tone (normal) Extremities: edema (none) Neurological: other (No focal deficits) Results Result Diagram: 04/29/17 0622 04/29/17 0622 Results 24 hrs Laboratory Tests Test 04/29/17 06:22 White Blood Count 11.0 H Red Blood Count 4.16 L Hemoglobin 11.1 L Hematocrit 35.3 L Mean Corpuscular Volume 84.9 Mean Corpuscular Hemoglobin 26.7 L Mean Corpuscular Hemoglobin Concent 31.4 L Red Cell Distribution Width 16.5 H Platelet Count 377 Mean Platelet Volume 12.8 H Neutrophils % 73.5 Lymphocytes % 10.2 L Monocytes % 8.5 Eosinophils % 6.4 Basophils % 0.9 Nucleated Red Blood Cells % 0.0 Neutrophils # 8.1 H Lymphocytes # 1.1 Monocytes # 0.9 Eosinophils # 0.7 H Basophils # 0.1 Nucleated Red Blood Cells # 0.0 Sodium Level 145 H Potassium Level 4.3 Chloride Level 107 Carbon Dioxide Level 24 Anion Gap 18 H Blood Urea Nitrogen 31 H Creatinine 1.00 Glucose Level 101 Calcium Level 9.6 Medications Medications Current Medications Cefepime HCl (Maxipime 2gm/50 ml (Pmx)) 50 ml @ 100 mls/hr Q12 IVPB Last administered on 04/29/17 09:51; Admin Dose 100 MLS/HR; Start 04/25/17 at 12: 30 Apixaban (Eliquis) 2.5 mg BID PO Last administered on 04/29/17 08:40; Admin Dose 2.5 MG; Start 04/26/17 at 09:00 Atenolol (Tenormin) 12.5 mg BID PO Last administered on 04/29/17 08:42; Admin Dose 12.5 MG; Start 04/25/17 at 21:00 Metoprolol Tartrate (Lopressor) 5 mg Q4H PRN IV HR>110 Hold SBP<100; Start at 15:00 Acetaminophen (Tylenol Liquid) 650 mg Q4H PRN GTB PAIN OR TEMP ABOVE 38C Last administered on 04/29/17 11:07; Admin Dose 650 MG; Start 04/25/17 at 15:30 Bisacodyl (Dulcolax Supp) 10 mg DAILY PRN [place] PRN; Start 04/25/17 at 15:30 Eye Lubricant (Artificial Tears Oph) 2 drop Q6H PRN BOTH EYES DRY EYES Last administered on 04/28/17 21:37; Admin Dose 2 DROP; Start 04/25/17 at 15:30 Ondansetron HCl (Zofran Inj) 4 mg Q6H PRN IV NAUSEA AND/OR VOMITING; Start at 15:30 Lansoprazole 30 mg 30 mg DAILY@06 GTB Last administered on 04/29/17 05:20; Admin Dose 30 MG; Start 04/26/17 at 06:02 Linezolid (Zyvox 600mg/D5W (Pmx)) 300 ml @ 300 mls/hr Q12 IVPB Last administered on 04/29/17 08:42; Admin Dose 300 MLS/HR; Start 04/27/17 at 15: 30 Furosemide (Lasix) 20 mg DAILY PO Last administered on 04/29/17 08:40; Admin Dose 20 MG; Start 04/29/17 at 09:00 MINOO REY Apr 29, 2017 19:19
[2017-04-30] VITALS (11 sets, daily range): BP systolic 98–107; BP diastolic 54–62; PULSE 60–83; RESP 15–20
[2017-04-30] MEDS: LEVALBUTEROL (NEB) 0.31 MG/3 ML AMP INH SCH ×4 (01:35→20:17)
[2017-04-30] MEDS: LANSOPRAZOLE 30 MG CAP GTB SCH (05:37)
[2017-04-30] MEDS: LINEZOLID 600 MG/D5W (PMX) 300 ML IVPB SCH ×2 (09:23→21:00)
[2017-04-30] MEDS: ATENOLOL 25 MG TAB PO SCH ×2 (09:24→20:22)
[2017-04-30] MEDS: APIXABAN 5 MG TABLET PO SCH ×2 (09:24→20:22)
[2017-04-30] MEDS: FUROSEMIDE 20 MG TAB PO SCH (09:25)
[2017-04-30] MEDS: CEFEPIME 2GM/50 ML (PMX) 50 ML IVPB SCH ×2 (11:14→20:22)
--- NOTE | 2017-04-30 13:39 | CONS ---
Date/Time of Note Date/Time of Note DATE: 04/30/17 TIME: 13:37 Assessment/Plan Assessment/Plan Chief Complaint/Hosp Course IMPRESSION: 1. Atrial fibrillation with rapid ventricular response-currently well rate controlled/NL TSH 2. Congestive heart failure, likely systolic and diastolic, acute on chronic, but most recent echo January 2017 revealing an EF of 45%, cardiomyopathy with mildly decreased left ventricular ejection fraction approximately 45%. 3. Hypertension, under reasonable control. 4. Fevers. 5. History of mitral stenosis, severe by most recent echo, likely rheumatic by visualization. 6. Anemia. 7. Leukocytosis. 8. History of deep venous thrombosis. 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 Problems: Consultation Date/Type/Reason Admit Date/Time Apr 25, 2017 at 04:52 Initial Consult Date 04/25/17 Type of Consultation: cardiology Reason for Consultation af Referring Provider: ROXANA TORO MD Exam/Review of Systems Vital Signs Vitals Vital Signs Date Time Temp Pulse Resp B/P Pulse Ox O2 Delivery O2 Flow Rate FiO2 04/30/17 13:27 60 20 21 04/30/17 12:25 98.3 103/62 98 04/27/17 15:36 Room Air Intake and Output 04/29/17 04/29/17 04/30/17 15:00 23:00 07:00 Intake Total 300 ml 770 ml 800 ml Output Total 700 ml 650 ml Balance 300 ml 70 ml 150 ml Exam Review of Systems: CONSTITUTIONAL: No fevers, chills. PULMONARY: No sob CARDIOVASCULAR: No chest pain/palpitations GASTROINTESTINAL: No nausea/vomiting. GENITOURINARY: No hematuria/dysuria. MUSCULOSKELETAL: No myagias/arthalgias. PSYCHIATRIC: The patient denies depression. NEUROLOGIC: No weakness Constitutional: alert, oriented Psych: no complaints Head: normocephalic ENMT: mucosa pink and moist Neck: jvd, supple Respiratory: diminished breath sounds (at bases/B) Cardiovascular: regular rate and rhythm Gastrointestinal: non-tender, soft Musculoskeletal: muscle tone (normal) Extremities: edema (none) Neurological: other (No focal deficits) Results Result Diagram: 04/30/17 0802 04/30/17 0805 Results 24 hrs Laboratory Tests Test 04/30/17 08:02 04/30/17 08:05 White Blood Count 10.8 Red Blood Count 4.15 L Hemoglobin 11.1 L Hematocrit 35.4 L Mean Corpuscular Volume 85.3 Mean Corpuscular Hemoglobin 26.7 L Mean Corpuscular Hemoglobin Concent 31.4 L Red Cell Distribution Width 16.2 H Platelet Count 393 Mean Platelet Volume 12.9 H Neutrophils % 73.5 Lymphocytes % 11.8 L Monocytes % 7.3 Eosinophils % 5.7 Basophils % 1.0 Nucleated Red Blood Cells % 0.0 Neutrophils # 7.9 H Lymphocytes # 1.3 Monocytes # 0.8 Eosinophils # 0.6 H Basophils # 0.1 Nucleated Red Blood Cells # 0.0 Sodium Level 140 Potassium Level 4.2 Chloride Level 104 Carbon Dioxide Level 26 Anion Gap 14 Blood Urea Nitrogen 26 H Creatinine 1.06 H Glucose Level 102 Calcium Level 10.0 Medications Medications Current Medications Cefepime HCl (Maxipime 2gm/50 ml (Pmx)) 50 ml @ 100 mls/hr Q12 IVPB Last administered on 04/30/17 11:14; Admin Dose 100 MLS/HR; Start 04/25/17 at 12: 30 Apixaban (Eliquis) 2.5 mg BID PO Last administered on 04/30/17 09:24; Admin Dose 2.5 MG; Start 04/26/17 at 09:00 Atenolol (Tenormin) 12.5 mg BID PO Last administered on 04/30/17 09:24; Admin Dose 12.5 MG; Start 04/25/17 at 21:00 Metoprolol Tartrate (Lopressor) 5 mg Q4H PRN IV HR>110 Hold SBP<100; Start at 15:00 Acetaminophen (Tylenol Liquid) 650 mg Q4H PRN GTB PAIN OR TEMP ABOVE 38C Last administered on 04/29/17 21:27; Admin Dose 650 MG; Start 04/25/17 at 15:30 Bisacodyl (Dulcolax Supp) 10 mg DAILY PRN [place] PRN; Start 04/25/17 at 15:30 Eye Lubricant (Artificial Tears Oph) 2 drop Q6H PRN BOTH EYES DRY EYES Last administered on 04/28/17 21:37; Admin Dose 2 DROP; Start 04/25/17 at 15:30 Ondansetron HCl (Zofran Inj) 4 mg Q6H PRN IV NAUSEA AND/OR VOMITING; Start at 15:30 Lansoprazole 30 mg 30 mg DAILY@06 GTB Last administered on 04/30/17 05:37; Admin Dose 30 MG; Start 04/26/17 at 06:02 Linezolid (Zyvox 600mg/D5W (Pmx)) 300 ml @ 300 mls/hr Q12 IVPB Last administered on 04/30/17 09:23; Admin Dose 300 MLS/HR; Start 04/27/17 at 15: 30 Furosemide (Lasix) 20 mg DAILY PO Last administered on 04/30/17 09:25; Admin Dose 20 MG; Start 04/29/17 at 09:00 MINOO REY Apr 30, 2017 13:39
--- NOTE | 2017-04-30 15:28 | CONS ---
Date/Time of Note Date/Time of Note DATE: 04/30/17 TIME: 15:26 Assessment/Plan Assessment/Plan Chief Complaint/Hosp Course - recurrent sepsis, probably due to aspiration pneumonia/pneumonitis or bronchitis - RANDOLPH, probably due to fever - s/p sepsis due to bacteremia and UTI - s/p enterococcus bacteremia, tip of PICC grew Group B strep. Transthoracic echo on 01/16/2017, 03/25/2017 did not reveal valvular vegetation but difficult to assess MV. Pt was supposed to take an empiric course of endocarditis through 04/23/2017; Pt's said that she had completed antibiotics on 04/24/2017 - h/o rheumatic heart disease (probable rheumatic, severe MS on transthoracic echo) - recurrent UTI due to E. coli, proteus - dysphagia s/p PEG - diffuse moderate degree of gastritis s/p EGD 02/15/2017 - h/o gastritis due to H. 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 CSF from 01/19/2017: WBC=3, RBC=0, glu 53, pro=61, CSF ([place] serology negative, HSV negative, cocci CF negative, encephalitis meningitis panel could not be done due to a lack of sample), serum ([place] PCR negative, crypto antigen negative, cocci CF negative, histo CF negative). - h/o bacteremia due to CoNS, probable contaminant. - h/o MARIELA - A fib - h/o DVT - h/o LLE ischemia s/p thrombolysis and subsequent open thrombectomy and fasciotomy at [facility] 09/2015 - h/o thrombus on DEBBIE per records from [facility] - h/o funguria recommendations: - complete course of linezolid/cefepime x 7 days - monitor plts/cbc - probiotics Problems: Consultation Date/Type/Reason Admit Date/Time Apr 25, 2017 at 04:52 Initial Consult Date 04/25/17 Type of Consultation: id Referring Provider: ROXANA TORO MD Exam/Review of Systems Vital Signs Vitals Vital Signs Date Time Temp Pulse Resp B/P Pulse Ox O2 Delivery O2 Flow Rate FiO2 04/30/17 15:07 97.9 79 20 107/57 96 04/30/17 13:27 21 04/27/17 15:36 Room Air Intake and Output 04/29/17 04/29/17 04/30/17 15:00 23:00 07:00 Intake Total 300 ml 770 ml 800 ml Output Total 700 ml 650 ml Balance 300 ml 70 ml 150 ml Results Result Diagram: 04/30/17 0802 04/30/17 0805 Results 24 hrs Laboratory Tests Test 04/30/17 08:02 04/30/17 08:05 White Blood Count 10.8 Red Blood Count 4.15 L Hemoglobin 11.1 L Hematocrit 35.4 L Mean Corpuscular Volume 85.3 Mean Corpuscular Hemoglobin 26.7 L Mean Corpuscular Hemoglobin Concent 31.4 L Red Cell Distribution Width 16.2 H Platelet Count 393 Mean Platelet Volume 12.9 H Neutrophils % 73.5 Lymphocytes % 11.8 L Monocytes % 7.3 Eosinophils % 5.7 Basophils % 1.0 Nucleated Red Blood Cells % 0.0 Neutrophils # 7.9 H Lymphocytes # 1.3 Monocytes # 0.8 Eosinophils # 0.6 H Basophils # 0.1 Nucleated Red Blood Cells # 0.0 Sodium Level 140 Potassium Level 4.2 Chloride Level 104 Carbon Dioxide Level 26 Anion Gap 14 Blood Urea Nitrogen 26 H Creatinine 1.06 H Glucose Level 102 Calcium Level 10.0 Medications Medications Current Medications Cefepime HCl (Maxipime 2gm/50 ml (Pmx)) 50 ml @ 100 mls/hr Q12 IVPB Last administered on 04/30/17 11:14; Admin Dose 100 MLS/HR; Start 04/25/17 at 12: 30 Apixaban (Eliquis) 2.5 mg BID PO Last administered on 04/30/17 09:24; Admin Dose 2.5 MG; Start 04/26/17 at 09:00 Atenolol (Tenormin) 12.5 mg BID PO Last administered on 04/30/17 09:24; Admin Dose 12.5 MG; Start 04/25/17 at 21:00 Metoprolol Tartrate (Lopressor) 5 mg Q4H PRN IV HR>110 Hold SBP<100; Start at 15:00 Acetaminophen (Tylenol Liquid) 650 mg Q4H PRN GTB PAIN OR TEMP ABOVE 38C Last administered on 04/29/17 21:27; Admin Dose 650 MG; Start 04/25/17 at 15:30 Bisacodyl (Dulcolax Supp) 10 mg DAILY PRN IN PRN; Start 04/25/17 at 15:30 Eye Lubricant (Artificial Tears Oph) 2 drop Q6H PRN BOTH EYES DRY EYES Last administered on 04/28/17 21:37; Admin Dose 2 DROP; Start 04/25/17 at 15:30 Ondansetron HCl (Zofran Inj) 4 mg Q6H PRN IV NAUSEA AND/OR VOMITING; Start at 15:30 Lansoprazole 30 mg 30 mg DAILY@06 GTB Last administered on 04/30/17 05:37; Admin Dose 30 MG; Start 04/26/17 at 06:02 Linezolid (Zyvox 600mg/D5W (Pmx)) 300 ml @ 300 mls/hr Q12 IVPB Last administered on 04/30/17 09:23; Admin Dose 300 MLS/HR; Start 04/27/17 at 15: 30 Furosemide (Lasix) 20 mg DAILY PO Last administered on 04/30/17 09:25; Admin Dose 20 MG; Start 04/29/17 at 09:00 SHELBY SHUKLA MD Apr 30, 2017 15:28
--- NOTE | 2017-04-30 15:28 | CONS ---
Date/Time of Note Date/Time of Note DATE: 04/30/17 TIME: 15:26 Assessment/Plan Assessment/Plan Chief Complaint/Hosp Course - recurrent sepsis, probably due to aspiration pneumonia/pneumonitis or bronchitis - RANDOLPH, probably due to fever - s/p sepsis due to bacteremia and UTI - s/p enterococcus bacteremia, tip of PICC grew Group B strep. Transthoracic echo on 01/16/2017, 03/25/2017 did not reveal valvular vegetation but difficult to assess MV. Pt was supposed to take an empiric course of endocarditis through 04/23/2017; Pt's said that she had completed antibiotics on 04/24/2017 - h/o rheumatic heart disease (probable rheumatic, severe MS on transthoracic echo) - recurrent UTI due to E. coli, proteus - dysphagia s/p PEG - diffuse moderate degree of gastritis s/p EGD 02/15/2017 - h/o gastritis due to H. pylori based on pathology 02/15/2017; Pt completed clarithromycin-based regimen (02/20/2017-), [id number] - h/o bleeding from GT site, and blood clots in tube feed, resolved - s/p recurrent CVA - h/o possible aspiration, improved - encephalopathy due to CVA. CSF from 01/19/2017: WBC=3, RBC=0, glu 53, pro=61, CSF ([place] serology negative, HSV negative, cocci CF negative, encephalitis meningitis panel could not be done due to a lack of sample), serum ([place] PCR negative, crypto antigen negative, cocci CF negative, histo CF negative). - h/o bacteremia due to CoNS, probable contaminant. - h/o MARIELA - A fib - h/o DVT - h/o LLE ischemia s/p thrombolysis and subsequent open thrombectomy and fasciotomy at [facility] 09/2015 - h/o thrombus on DEBBIE per records from [facility] - h/o funguria recommendations: - complete course of linezolid/cefepime x 7 days - monitor plts/cbc - probiotics Problems: Consultation Date/Type/Reason Admit Date/Time Apr 25, 2017 at 04:52 Initial Consult Date 04/25/17 Type of Consultation: id Referring Provider: ROXANA TORO MD Exam/Review of Systems Vital Signs Vitals Vital Signs Date Time Temp Pulse Resp B/P Pulse Ox O2 Delivery O2 Flow Rate FiO2 04/30/17 15:07 97.9 79 20 107/57 96 04/30/17 13:27 21 04/27/17 15:36 Room Air Intake and Output 04/29/17 04/29/17 04/30/17 15:00 23:00 07:00 Intake Total 300 ml 770 ml 800 ml Output Total 700 ml 650 ml Balance 300 ml 70 ml 150 ml Results Result Diagram: 04/30/17 0802 04/30/17 0805 Results 24 hrs Laboratory Tests Test 04/30/17 08:02 04/30/17 08:05 White Blood Count 10.8 Red Blood Count 4.15 L Hemoglobin 11.1 L Hematocrit 35.4 L Mean Corpuscular Volume 85.3 Mean Corpuscular Hemoglobin 26.7 L Mean Corpuscular Hemoglobin Concent 31.4 L Red Cell Distribution Width 16.2 H Platelet Count 393 Mean Platelet Volume 12.9 H Neutrophils % 73.5 Lymphocytes % 11.8 L Monocytes % 7.3 Eosinophils % 5.7 Basophils % 1.0 Nucleated Red Blood Cells % 0.0 Neutrophils # 7.9 H Lymphocytes # 1.3 Monocytes # 0.8 Eosinophils # 0.6 H Basophils # 0.1 Nucleated Red Blood Cells # 0.0 Sodium Level 140 Potassium Level 4.2 Chloride Level 104 Carbon Dioxide Level 26 Anion Gap 14 Blood Urea Nitrogen 26 H Creatinine 1.06 H Glucose Level 102 Calcium Level 10.0 Medications Medications Current Medications Cefepime HCl (Maxipime 2gm/50 ml (Pmx)) 50 ml @ 100 mls/hr Q12 IVPB Last administered on 04/30/17 11:14; Admin Dose 100 MLS/HR; Start 04/25/17 at 12: 30 Apixaban (Eliquis) 2.5 mg BID PO Last administered on 04/30/17 09:24; Admin Dose 2.5 MG; Start 04/26/17 at 09:00 Atenolol (Tenormin) 12.5 mg BID PO Last administered on 04/30/17 09:24; Admin Dose 12.5 MG; Start 04/25/17 at 21:00 Metoprolol Tartrate (Lopressor) 5 mg Q4H PRN IV HR>110 Hold SBP<100; Start at 15:00 Acetaminophen (Tylenol Liquid) 650 mg Q4H PRN GTB PAIN OR TEMP ABOVE 38C Last administered on 04/29/17 21:27; Admin Dose 650 MG; Start 04/25/17 at 15:30 Bisacodyl (Dulcolax Supp) [address] PRN; Start 04/25/17 at 15:30 Eye Lubricant (Artificial Tears Oph) 2 drop Q6H PRN BOTH EYES DRY EYES Last administered on 04/28/17 21:37; Admin Dose 2 DROP; Start 04/25/17 at 15:30 Ondansetron HCl (Zofran Inj) 4 mg Q6H PRN IV NAUSEA AND/OR VOMITING; Start at 15:30 Lansoprazole 30 mg 30 mg DAILY@06 GTB Last administered on 04/30/17 05:37; Admin Dose 30 MG; Start 04/26/17 at 06:02 Linezolid (Zyvox 600mg/D5W (Pmx)) 300 ml @ 300 mls/hr Q12 IVPB Last administered on 04/30/17 09:23; Admin Dose 300 MLS/HR; Start 04/27/17 at 15: 30 Furosemide (Lasix) 20 mg DAILY PO Last administered on 04/30/17 09:25; Admin Dose 20 MG; Start 04/29/17 at 09:00 SHELBY SHUKLA MD Apr 30, 2017 15:28
--- NOTE | 2017-04-30 18:08 | PN ---
Date/Time of Note Date/Time of Note DATE: 04/30/17 TIME: 18:06 Assessment/Plan VTE Prophylaxis VTE Prophylaxis Intervention: SCD's Lines/Catheters IV C[facility] Type [facility] Saline Lock Urinary Cath still in place: Yes Reason Cath still needed: urinary retention Assessment/Plan Chief Complaint/Hosp Course Patient is awake alert, hemodynamically stable, atrial fibrillation at controlled rate on telemetry, able to work with PT. Assessment/Plan - Recurrent sepsis secondary to early pneumonia versus bronchitis. S/p cefepime. Dr. Bosch is following in ID consultation. -VRE in urine, continue Zyvox. - Bilateral thalamic infarctions. Dr. Ramirez is following in neurology consultation. - Dysphagia with G-tube. - Atrial fibrillation with rapid ventricular response. Dr. Armenta is following and cardiology consultation. Continue Eliquis and atenolol. - CHF, continue Lasix. Monitor electrolytes. - Thrombosis of the bilateral cephalic veins. Further recommendations based on clinical course. Plan of care discussed with Dr. Valdovinos. Problems: Exam/Review of Systems Vital Signs Vitals Vital Signs Date Time Temp Pulse Resp B/P Pulse Ox O2 Delivery O2 Flow Rate FiO2 04/30/17 16:23 83 04/30/17 15:07 97.9 20 107/57 96 04/30/17 13:27 21 04/27/17 15:36 Room Air Intake and Output 04/29/17 04/29/17 04/30/17 15:00 23:00 07:00 Intake Total 300 ml 770 ml 800 ml Output Total 700 ml 650 ml Balance 300 ml 70 ml 150 ml Exam Constitutional: alert, oriented Respiratory: diminished breath sounds Cardiovascular: irregular rhythm Gastrointestinal: non-tender, other (G-tube), soft Musculoskeletal: muscle weakness Results Result Diagram: 04/30/17 0802 04/30/17 0805 Results 24 hrs Laboratory Tests Test 04/30/17 08:02 04/30/17 08:05 White Blood Count 10.8 Red Blood Count 4.15 L Hemoglobin 11.1 L Hematocrit 35.4 L Mean Corpuscular Volume 85.3 Mean Corpuscular Hemoglobin 26.7 L Mean Corpuscular Hemoglobin Concent 31.4 L Red Cell Distribution Width 16.2 H Platelet Count 393 Mean Platelet Volume 12.9 H Neutrophils % 73.5 Lymphocytes % 11.8 L Monocytes % 7.3 Eosinophils % 5.7 Basophils % 1.0 Nucleated Red Blood Cells % 0.0 Neutrophils # 7.9 H Lymphocytes # 1.3 Monocytes # 0.8 Eosinophils # 0.6 H Basophils # 0.1 Nucleated Red Blood Cells # 0.0 Sodium Level 140 Potassium Level 4.2 Chloride Level 104 Carbon Dioxide Level 26 Anion Gap 14 Blood Urea Nitrogen 26 H Creatinine 1.06 H Glucose Level 102 Calcium Level 10.0 Medications Medications Current Medications Cefepime HCl (Maxipime 2gm/50 ml (Pmx)) 50 ml @ 100 mls/hr Q12 IVPB Last administered on 04/30/17 11:14; Admin Dose 100 MLS/HR; Start 04/25/17 at 12: 30 Apixaban (Eliquis) 2.5 mg BID PO Last administered on 04/30/17 09:24; Admin Dose 2.5 MG; Start 04/26/17 at 09:00 Atenolol (Tenormin) 12.5 mg BID PO Last administered on 04/30/17 09:24; Admin Dose 12.5 MG; Start 04/25/17 at 21:00 Metoprolol Tartrate (Lopressor) 5 mg Q4H PRN IV HR>110 Hold SBP<100; Start at 15:00 Acetaminophen (Tylenol Liquid) 650 mg Q4H PRN GTB PAIN OR TEMP ABOVE 38C Last administered on 04/29/17 21:27; Admin Dose 650 MG; Start 04/25/17 at 15:30 Bisacodyl (Dulcolax Supp) 10 mg DAILY PRN [place] PRN; Start 04/25/17 at 15:30 Eye Lubricant (Artificial Tears Oph) 2 drop Q6H PRN BOTH EYES DRY EYES Last administered on 04/28/17 21:37; Admin Dose 2 DROP; Start 04/25/17 at 15:30 Ondansetron HCl (Zofran Inj) 4 mg Q6H PRN IV NAUSEA AND/OR VOMITING; Start at 15:30 Lansoprazole 30 mg 30 mg DAILY@06 GTB Last administered on 04/30/17 05:37; Admin Dose 30 MG; Start 04/26/17 at 06:02 Linezolid (Zyvox 600mg/D5W (Pmx)) 300 ml @ 300 mls/hr Q12 IVPB Last administered on 04/30/17 09:23; Admin Dose 300 MLS/HR; Start 04/27/17 at 15: 30 Furosemide (Lasix) 20 mg DAILY PO Last administered on 04/30/17 09:25; Admin Dose 20 MG; Start 04/29/17 at 09:00 Lactobacillus Acidophilus (Florajen3 Capsule) 1 each BID PO ; Start 04/30/17 at 21:00 LAWRENCE PICKERING Apr 30, 2017 18:08
[2017-04-30] MEDS: L ACIDOPHIL/B LACTIS/B LONGUM CAPSULE PO SCH (21:00)
[2017-05-01] VITALS (12 sets, daily range): BP systolic 98–124; BP diastolic 53–79; PULSE 65–81; RESP 15–18
[2017-05-01] MEDS: LEVALBUTEROL (NEB) 0.31 MG/3 ML AMP INH SCH ×4 (01:41→20:19)
[2017-05-01] MEDS: LANSOPRAZOLE 30 MG CAP GTB SCH (05:16)
[2017-05-01] MEDS: CEFEPIME 2GM/50 ML (PMX) 50 ML IVPB SCH ×2 (08:26→20:13)
[2017-05-01] MEDS: LINEZOLID 600 MG/D5W (PMX) 300 ML IVPB SCH ×2 (08:27→20:11)
[2017-05-01] MEDS: APIXABAN 5 MG TABLET PO SCH ×2 (08:30→20:11)
[2017-05-01] MEDS: ATENOLOL 25 MG TAB PO SCH ×2 (08:30→20:12)
[2017-05-01] MEDS: FUROSEMIDE 20 MG TAB PO SCH (08:30)
[2017-05-01] MEDS: L ACIDOPHIL/B LACTIS/B LONGUM CAPSULE PO SCH ×2 (08:30→20:11)
--- NOTE | 2017-05-01 10:00 | PN ---
Date/Time of Note Date/Time of Note DATE: 05/01/17 TIME: 09:59 Assessment/Plan VTE Prophylaxis VTE Prophylaxis Intervention: other Lines/Catheters IV Catheter Type (from [facility] Saline Lock Urinary Cath still in place: Yes Reason Cath still needed: skin wounds contaminated by urine Assessment/Plan Chief Complaint/Hosp Course - Recurrent sepsis secondary to early pneumonia versus bronchitis. S/p cefepime. Dr. Bosch is following in ID consultation. -VRE in urine, continue Zyvox. - Bilateral thalamic infarctions. Dr. Ramirez is following in neurology consultation. - Dysphagia with G-tube. - Atrial fibrillation with rapid ventricular response. Dr. Armenta is following and cardiology consultation. Continue Eliquis and atenolol. - CHF, continue Lasix. Monitor electrolytes. - Thrombosis of the bilateral cephalic veins. Problems: Subjective 24 Hr Interval Summary Free Text/Dictation Patient has no complaints Exam/Review of Systems Vital Signs Vitals Vital Signs Date Time Temp Pulse Resp B/P Pulse Ox O2 Delivery O2 Flow Rate FiO2 05/01/17 08:11 65 05/01/17 07:54 98.0 112/71 97 05/01/17 07:51 21 04/27/17 15:36 Room Air Intake and Output 04/30/17 04/30/17 05/01/17 15:00 23:00 07:00 Intake Total 300 ml 1000 ml 700 ml Output Total 2000 ml 750 ml Balance 300 ml -1000 ml -50 ml Exam Constitutional: well developed Head: atraumatic, normocephalic Neck: supple Respiratory: clear to auscultation Cardiovascular: regular rate and rhythm Gastrointestinal: non-tender, soft Extremities: normal pulses Results Result Diagram: 05/01/17 0619 05/01/17618 Results 24 hrs Laboratory Tests Test 05/01/17 06:19 05/01/17 08:10 White Blood Count 9.8 Red Blood Count 4.23 Hemoglobin 11.1 L Hematocrit 35.6 L Mean Corpuscular Volume 84.2 Mean Corpuscular Hemoglobin 26.2 L Mean Corpuscular Hemoglobin Concent 31.2 L Red Cell Distribution Width 16.2 H Platelet Count 399 Mean Platelet Volume 13.1 H Neutrophils % 73.5 Lymphocytes % 12.6 L Monocytes % 7.5 Eosinophils % 4.5 Basophils % 1.0 Nucleated Red Blood Cells % 0.0 Neutrophils # 7.2 Lymphocytes # 1.2 Monocytes # 0.7 Eosinophils # 0.4 Basophils # 0.1 Nucleated Red Blood Cells # 0.0 Sodium Level 143 Potassium Level 3.8 Chloride Level 102 Carbon Dioxide Level 27 Anion Gap 18 H Blood Urea Nitrogen 25 H Creatinine 1.08 H Glucose Level 121 Calcium Level 9.9 Bedside Glucose 114 Medications Medications Current Medications Cefepime HCl (Maxipime 2gm/50 ml (Pmx)) 50 ml @ 100 mls/hr Q12 IVPB Last administered on 05/01/17 08:26; Admin Dose 100 MLS/HR; Start 04/25/17 at 12: 30 Apixaban (Eliquis) 2.5 mg BID PO Last administered on 05/01/17 08:30; Admin Dose 2.5 MG; Start 04/26/17 at 09:00 Atenolol (Tenormin) 12.5 mg BID PO Last administered on 05/01/17 08:30; Admin Dose 12.5 MG; Start 04/25/17 at 21:00 Metoprolol Tartrate (Lopressor) 5 mg Q4H PRN IV HR>110 Hold SBP<100; Start at 15:00 Acetaminophen (Tylenol Liquid) 650 mg Q4H PRN GTB PAIN OR TEMP ABOVE 38C Last administered on 04/29/17 21:27; Admin Dose 650 MG; Start 04/25/17 at 15:30 Bisacodyl (Dulcolax Supp) 10 mg DAILY PRN [place] PRN; Start 04/25/17 at 15:30 Eye Lubricant (Artificial Tears Oph) 2 drop Q6H PRN BOTH EYES DRY EYES Last administered on 04/28/17 21:37; Admin Dose 2 DROP; Start 04/25/17 at 15:30 Ondansetron HCl (Zofran Inj) 4 mg Q6H PRN IV NAUSEA AND/OR VOMITING; Start at 15:30 Lansoprazole 30 mg 30 mg DAILY@06 GTB Last administered on 05/01/17 05:16; Admin Dose 30 MG; Start 04/26/17 at 06:02 Linezolid (Zyvox 600mg/D5W (Pmx)) 300 ml @ 300 mls/hr Q12 IVPB Last administered on 05/01/17 08:27; Admin Dose 300 MLS/HR; Start 04/27/17 at 15: 30 Furosemide (Lasix) 20 mg DAILY PO Last administered on 05/01/17 08:30; Admin Dose 20 MG; Start 04/29/17 at 09:00 Lactobacillus Acidophilus (Florajen3 Capsule) 1 each BID PO Last administered on 05/01/17 08:30; Admin Dose 1 EACH; Start 04/30/17 at 21:00 JOSE LOMAS May 01, 2017 10:00
--- NOTE | 2017-05-01 14:20 | CONS ---
Date/Time of Note Date/Time of Note DATE: 05/01/17 TIME: 14:17 Assessment/Plan Assessment/Plan Additional Assessment/Plan 1. Chronic atrial fibrillation 2. Congestive heart failure 3. Hypertension 4. Mitral stenosis 5. Anemia. 6. Deep venous thrombosis. Hemodynamically stable Continue Atenolol Continue Eliquis Continue Lasix Continue Antibiotics Consultation Date/Type/Reason Admit Date/Time Apr 25, 2017 at 04:52 Constitutional: requiring IVF, requiring O2 Respiratory: no complaints Cardiovascular: no complaints Gastrointestinal: no complaints Genitourinary: other (FC-yellow, clear urine) Musculoskeletal: no complaints Neurologic: headache, other (no photophobia), No dizziness Psychological: no complaints Past Medical History Medical History: peptic ulcer disease, urinary tract infection, other (CVA, H. pylori infection, bacteremia, rheumatic fever involving MV) Social History Alcohol Use: none Smoking Status: Never smoker Drug Use: none Exam/Review of Systems Vital Signs Vitals Vital Signs Date Time Temp Pulse Resp B/P Pulse Ox O2 Delivery O2 Flow Rate FiO2 05/01/17 12:15 74 05/01/17 11:40 98.9 17 124/79 98 05/01/17 07:51 21 04/27/17 15:36 Room Air Intake and Output 04/30/17 04/30/17 05/01/17 15:00 23:00 07:00 Intake Total 300 ml 1000 ml 700 ml Output Total 2000 ml 750 ml Balance 300 ml -1000 ml -50 ml Exam Constitutional: alert, oriented Head: atraumatic, normocephalic Respiratory: clear to auscultation Cardiovascular: irregular rhythm Gastrointestinal: nl liver, spleen, non-tender, soft Extremities: normal pulses Results Result Diagram: 05/01/17 0619 05/01/1719 Results 24 hrs Laboratory Tests Test 05/01/17 06:19 05/01/17 08:10 White Blood Count 9.8 Red Blood Count 4.23 Hemoglobin 11.1 L Hematocrit 35.6 L Mean Corpuscular Volume 84.2 Mean Corpuscular Hemoglobin 26.2 L Mean Corpuscular Hemoglobin Concent 31.2 L Red Cell Distribution Width 16.2 H Platelet Count 399 Mean Platelet Volume 13.1 H Neutrophils % 73.5 Lymphocytes % 12.6 L Monocytes % 7.5 Eosinophils % 4.5 Basophils % 1.0 Nucleated Red Blood Cells % 0.0 Neutrophils # 7.2 Lymphocytes # 1.2 Monocytes # 0.7 Eosinophils # 0.4 Basophils # 0.1 Nucleated Red Blood Cells # 0.0 Sodium Level 143 Potassium Level 3.8 Chloride Level 102 Carbon Dioxide Level 27 Anion Gap 18 H Blood Urea Nitrogen 25 H Creatinine 1.08 H Glucose Level 121 Calcium Level 9.9 Bedside Glucose 114 Medications Medications Current Medications Cefepime HCl (Maxipime 2gm/50 ml (Pmx)) 50 ml @ 100 mls/hr Q12 IVPB Last administered on 05/01/17 08:26; Admin Dose 100 MLS/HR; Start 04/25/17 at 12: 30 Apixaban (Eliquis) 2.5 mg BID PO Last administered on 05/01/17 08:30; Admin Dose 2.5 MG; Start 04/26/17 at 09:00 Atenolol (Tenormin) 12.5 mg BID PO Last administered on 05/01/17 08:30; Admin Dose 12.5 MG; Start 04/25/17 at 21:00 Metoprolol Tartrate (Lopressor) 5 mg Q4H PRN IV HR>110 Hold SBP<100; Start at 15:00 Acetaminophen (Tylenol Liquid) 650 mg Q4H PRN GTB PAIN OR TEMP ABOVE 38C Last administered on 04/29/17 21:27; Admin Dose 650 MG; Start 04/25/17 at 15:30 Bisacodyl (Dulcolax Supp) 10 mg DAILY PRN [place] PRN; Start 04/25/17 at 15:30 Eye Lubricant (Artificial Tears Oph) 2 drop Q6H PRN BOTH EYES DRY EYES Last administered on 04/28/17 21:37; Admin Dose 2 DROP; Start 04/25/17 at 15:30 Ondansetron HCl (Zofran Inj) 4 mg Q6H PRN IV NAUSEA AND/OR VOMITING; Start at 15:30 Lansoprazole 30 mg 30 mg DAILY@06 GTB Last administered on 05/01/17 05:16; Admin Dose 30 MG; Start 04/26/17 at 06:02 Linezolid (Zyvox 600mg/D5W (Pmx)) 300 ml @ 300 mls/hr Q12 IVPB Last administered on 05/01/17 08:27; Admin Dose 300 MLS/HR; Start 04/27/17 at 15: 30 Furosemide (Lasix) 20 mg DAILY PO Last administered on 05/01/17 08:30; Admin Dose 20 MG; Start 04/29/17 at 09:00 Lactobacillus Acidophilus (Florajen3 Capsule) 1 each BID PO Last administered on 05/01/17 08:30; Admin Dose 1 EACH; Start 04/30/17 at 21:00 JOSEFA WEINSTEIN M.D. May 01, 2017 14:20
--- NOTE | 2017-05-01 17:23 | CONS ---
Date/Time of Note Date/Time of Note DATE: 05/01/17 TIME: 17:08 Assessment/Plan Assessment/Plan Additional Assessment/Plan - recurrent sepsis, probably due to aspiration pneumonia/pneumonitis or bronchitis - RANDOLPH, probably due to fever - s/p sepsis due to bacteremia and UTI - s/p enterococcus bacteremia, tip of PICC grew Group B strep. Transthoracic echo on 01/16/2017, 03/25/2017 did not reveal valvular vegetation but difficult to assess MV. Pt was supposed to take an empiric course of endocarditis through 04/23/2017; Pt's said that she had completed antibiotics on 04/24/2017 - h/o rheumatic heart disease (probable rheumatic, severe MS on transthoracic echo) - recurrent UTI due to E. coli, proteus - dysphagia s/p PEG - diffuse moderate degree of gastritis s/p EGD 02/15/2017 - h/o gastritis due to H. pylori based on pathology 02/15/2017; Pt completed clarithromycin-based regimen (02/20/2017-), [id number] - h/o bleeding from GT site, and blood clots in tube feed, resolved - s/p recurrent CVA - h/o possible aspiration, improved - encephalopathy due to CVA. CSF from 01/19/2017: WBC=3, RBC=0, glu 53, pro=61, CSF ([place] serology negative, HSV negative, cocci CF negative, encephalitis meningitis panel could not be done due to a lack of sample), serum ([place] PCR negative, crypto antigen negative, cocci CF negative, histo CF negative). - h/o bacteremia due to CoNS, probable contaminant. - h/o MARIELA - A fib - h/o DVT - h/o LLE ischemia s/p thrombolysis and subsequent open thrombectomy and fasciotomy at [facility] 09/2015 - h/o thrombus on DEBBIE per records from [facility] - h/o funguria recommendations: - complete course of linezolid/cefepime x 7 days - monitor plts/cbc - probiotics Consultation Date/Type/Reason Admit Date/Time Apr 25, 2017 at 04:52 Initial Consult Date 04/25/17 Type of Consultation: id Referring Provider: ROXANA TORO MD 24 HR Interval Summary Free Text/Dictation afebrile, WBC wnl, no new acute changes reported.- dw staff Constitutional: requiring IVF Exam/Review of Systems Vital Signs Vitals Vital Signs Date Time Temp Pulse Resp B/P Pulse Ox O2 Delivery O2 Flow Rate FiO2 05/01/17 16:11 81 05/01/17 15:17 98.1 17 124/65 97 05/01/17 07:51 21 04/27/17 15:36 Room Air Intake and Output 04/30/17 04/30/17 05/01/17 15:00 23:00 07:00 Intake Total 300 ml 1000 ml 700 ml Output Total 2000 ml 750 ml Balance 300 ml -1000 ml -50 ml Exam Constitutional: alert Respiratory: diminished breath sounds Cardiovascular: nl pulses, other (S1S2, aflutter HR 83) Gastrointestinal: other (gt intact), soft Musculoskeletal: nl extremities to inspection Extremities: normal pulses Neurological: confused Results Result Diagram: 05/01/1761805/01/1719 Results 24 hrs Laboratory Tests Test 05/01/17 06:19 05/01/17 08:10 White Blood Count 9.8 Red Blood Count 4.23 Hemoglobin 11.1 L Hematocrit 35.6 L Mean Corpuscular Volume 84.2 Mean Corpuscular Hemoglobin 26.2 L Mean Corpuscular Hemoglobin Concent 31.2 L Red Cell Distribution Width 16.2 H Platelet Count 399 Mean Platelet Volume 13.1 H Neutrophils % 73.5 Lymphocytes % 12.6 L Monocytes % 7.5 Eosinophils % 4.5 Basophils % 1.0 Nucleated Red Blood Cells % 0.0 Neutrophils # 7.2 Lymphocytes # 1.2 Monocytes # 0.7 Eosinophils # 0.4 Basophils # 0.1 Nucleated Red Blood Cells # 0.0 Sodium Level 143 Potassium Level 3.8 Chloride Level 102 Carbon Dioxide Level 27 Anion Gap 18 H Blood Urea Nitrogen 25 H Creatinine 1.08 H Glucose Level 121 Calcium Level 9.9 Bedside Glucose 114 Medications Medications Current Medications Cefepime HCl (Maxipime 2gm/50 ml (Pmx)) 50 ml @ 100 mls/hr Q12 IVPB Last administered on 05/01/17 08:26; Admin Dose 100 MLS/HR; Start 04/25/17 at 12: 30 Apixaban (Eliquis) 2.5 mg BID PO Last administered on 05/01/17 08:30; Admin Dose 2.5 MG; Start 04/26/17 at 09:00 Atenolol (Tenormin) 12.5 mg BID PO Last administered on 05/01/17 08:30; Admin Dose 12.5 MG; Start 04/25/17 at 21:00 Metoprolol Tartrate (Lopressor) 5 mg Q4H PRN IV HR>110 Hold SBP<100; Start at 15:00 Acetaminophen (Tylenol Liquid) 650 mg Q4H PRN GTB PAIN OR TEMP ABOVE 38C Last administered on 04/29/17 21:27; Admin Dose 650 MG; Start 04/25/17 at 15:30 Bisacodyl (Dulcolax Supp) 10 mg DAILY PRN [place] PRN; Start 04/25/17 at 15:30 Eye Lubricant (Artificial Tears Oph) 2 drop Q6H PRN BOTH EYES DRY EYES Last administered on 04/28/17 21:37; Admin Dose 2 DROP; Start 04/25/17 at 15:30 Ondansetron HCl (Zofran Inj) 4 mg Q6H PRN IV NAUSEA AND/OR VOMITING; Start at 15:30 Lansoprazole 30 mg 30 mg DAILY@06 GTB Last administered on 05/01/17 05:16; Admin Dose 30 MG; Start 04/26/17 at 06:02 Linezolid (Zyvox 600mg/D5W (Pmx)) 300 ml @ 300 mls/hr Q12 IVPB Last administered on 05/01/17 08:27; Admin Dose 300 MLS/HR; Start 04/27/17 at 15: 30 Furosemide (Lasix) 20 mg DAILY PO Last administered on 05/01/17 08:30; Admin Dose 20 MG; Start 04/29/17 at 09:00 Lactobacillus Acidophilus (Florajen3 Capsule) 1 each BID PO Last administered on 05/01/17 08:30; Admin Dose 1 EACH; Start 04/30/17 at 21:00 ALEXIS NAJERA May 01, 2017 17:18
[2017-05-01] MEDS: ACETAMINOPHEN 650MG/20.3ML CUP GTB PRN (21:18)
[2017-05-02] VITALS (12 sets, daily range): BP systolic 115–140; BP diastolic 54–66; PULSE 72–94; RESP 17–18
[2017-05-02] MEDS: LEVALBUTEROL (NEB) 0.31 MG/3 ML AMP INH SCH ×4 (01:10→19:59)
[2017-05-02] MEDS: LANSOPRAZOLE 30 MG CAP GTB SCH (05:27)
[2017-05-02] MEDS: FUROSEMIDE 20 MG TAB PO SCH (09:19)
[2017-05-02] MEDS: L ACIDOPHIL/B LACTIS/B LONGUM CAPSULE PO SCH ×2 (09:19→20:21)
[2017-05-02] MEDS: LINEZOLID 600 MG/D5W (PMX) 300 ML IVPB SCH ×2 (09:19→20:21)
[2017-05-02] MEDS: ATENOLOL 25 MG TAB PO SCH ×2 (09:20→20:20)
[2017-05-02] MEDS: APIXABAN 5 MG TABLET PO SCH (09:20)
--- NOTE | 2017-05-02 10:55 | PN ---
Date/Time of Note Date/Time of Note DATE: 05/02/17 TIME: 10:55 Assessment/Plan VTE Prophylaxis VTE Prophylaxis Intervention: other Lines/Catheters IV C[facility]ter Type [facility]from [facility] Saline Lock Urinary Cath still in place: Yes Reason Cath still needed: skin wounds contaminated by urine Assessment/Plan Chief Complaint/Hosp Course - Recurrent sepsis secondary to early pneumonia versus bronchitis. S/p cefepime. Dr. Bosch is following in ID consultation. -VRE in urine, continue Zyvox. - Bilateral thalamic infarctions. Dr. Ramirez is following in neurology consultation. - Dysphagia with G-tube. - Atrial fibrillation with rapid ventricular response. Dr. Armenta is following and cardiology consultation. Continue Eliquis and atenolol. - CHF, continue Lasix. Monitor electrolytes. - Thrombosis of the bilateral cephalic veins. Problems: Subjective 24 Hr Interval Summary Free Text/Dictation Patient has no complaints, eyes open, nonverbal Exam/Review of Systems Vital Signs Vitals Vital Signs Date Time Temp Pulse Resp B/P Pulse Ox O2 Delivery O2 Flow Rate FiO2 05/02/17 08:06 72 05/02/17 08:02 98.3 18 115/54 95 05/02/17 01:20 21 Intake and Output 05/01/17 05/01/17 05/02/17 14:59 22:59 06:59 Intake Total 350 ml 890 ml 690 ml Output Total 1000 ml 700 ml Balance 350 ml -110 ml -10 ml Exam Constitutional: well developed Head: atraumatic, normocephalic Neck: supple Respiratory: diminished breath sounds Cardiovascular: regular rate and rhythm Gastrointestinal: non-tender, soft Extremities: normal pulses Results Result Diagram: 05/01/1761805/01/17618 Medications Medications Current Medications Cefepime HCl (Maxipime 2gm/50 ml (Pmx)) 50 ml @ 100 mls/hr Q12 IVPB Last administered on 05/01/17 20:13; Admin Dose 100 MLS/HR; Start 04/25/17 at 12: 30 Apixaban (Eliquis) 2.5 mg BID PO Last administered on 05/02/17 09:20; Admin Dose 2.5 MG; Start 04/26/17 at 09:00 Atenolol (Tenormin) 12.5 mg BID PO Last administered on 05/02/17 09:20; Admin Dose 12.5 MG; Start 04/25/17 at 21:00 Metoprolol Tartrate (Lopressor) 5 mg Q4H PRN IV HR>110 Hold SBP<100; Start at 15:00 Acetaminophen (Tylenol Liquid) 650 mg Q4H PRN GTB PAIN OR TEMP ABOVE 38C Last administered on 05/01/17 21:18; Admin Dose 650 MG; Start 04/25/17 at 15:30 Bisacodyl (Dulcolax Supp) 10 mg DAILY PRN [place] PRN; Start 04/25/17 at 15:30 Eye Lubricant (Artificial Tears Oph) 2 drop Q6H PRN BOTH EYES DRY EYES Last administered on 04/28/17 21:37; Admin Dose 2 DROP; Start 04/25/17 at 15:30 Ondansetron HCl (Zofran Inj) 4 mg Q6H PRN IV NAUSEA AND/OR VOMITING; Start at 15:30 Lansoprazole 30 mg 30 mg DAILY@06 GTB Last administered on 05/02/17 05:27; Admin Dose 30 MG; Start 04/26/17 at 06:02 Linezolid (Zyvox 600mg/D5W (Pmx)) 300 ml @ 300 mls/hr Q12 IVPB Last administered on 05/02/17 09:19; Admin Dose 300 MLS/HR; Start 04/27/17 at 15: 30 Furosemide (Lasix) 20 mg DAILY PO Last administered on 05/02/17 09:19; Admin Dose 20 MG; Start 04/29/17 at 09:00 Lactobacillus Acidophilus (Florajen3 Capsule) 1 each BID PO Last administered on 05/02/17 09:19; Admin Dose 1 EACH; Start 04/30/17 at 21:00 JOSE LOMAS May 02, 2017 10:55
[2017-05-02] MEDS: CEFEPIME 2GM/50 ML (PMX) 50 ML IVPB SCH ×2 (10:57→20:20)
--- NOTE | 2017-05-02 12:11 | CONS ---
Date/Time of Note Date/Time of Note DATE: 05/02/17 TIME: 12:03 Assessment/Plan Assessment/Plan Additional Assessment/Plan - recurrent sepsis, probably due to aspiration pneumonia/pneumonitis or bronchitis - RANDOLPH, probably due to fever - s/p sepsis due to bacteremia and UTI - s/p enterococcus bacteremia, tip of PICC grew Group B strep. Transthoracic echo on 01/16/2017, 03/25/2017 did not reveal valvular vegetation but difficult to assess MV. Pt was supposed to take an empiric course of endocarditis through 04/23/2017; Pt's said that she had completed antibiotics on 04/24/2017 - h/o rheumatic heart disease (probable rheumatic, severe MS on transthoracic echo) - recurrent UTI due to E. coli, proteus - dysphagia s/p PEG - diffuse moderate degree of gastritis s/p EGD 02/15/2017 - h/o gastritis due to H. pylori based on pathology 02/15/2017; Pt completed clarithromycin-based regimen (02/20/2017-), [id number] - h/o bleeding from GT site, and blood clots in tube feed, resolved - s/p recurrent CVA - h/o possible aspiration, improved - encephalopathy due to CVA. CSF from 01/19/2017: WBC=3, RBC=0, glu 53, pro=61, CSF ([place] serology negative, HSV negative, cocci CF negative, encephalitis meningitis panel could not be done due to a lack of sample), serum ([place] PCR negative, crypto antigen negative, cocci CF negative, histo CF negative). - h/o bacteremia due to CoNS, probable contaminant. - h/o MARIELA - A fib - h/o DVT - h/o LLE ischemia s/p thrombolysis and subsequent open thromb[facility]iot[facility] - h/o thrombus on DEBBIE per records from [facility] - h/o funguria recommendations: - complete course of linezolid/cefepime x 7 days - monitor plts/cbc - probiotics Dw Dr Bosch/RN Consultation Date/Type/Reason Admit Date/Time Apr 25, 2017 at 04:52 Initial Consult Date 04/25/17 Type of Consultation: id Referring Provider: ROXANA TORO MD 24 HR Interval Summary Constitutional: requiring IVF Detailed Summary Respiratory: no complaints Cardiovascular: no complaints Gastrointestinal: no complaints Genitourinary: no complaints Neurologic: confusion Exam/Review of Systems Vital Signs Vitals Vital Signs Date Time Temp Pulse Resp B/P Pulse Ox O2 Delivery O2 Flow Rate FiO2 05/02/17 11:20 97.8 68 17 120/65 97 05/02/17 01:20 21 Intake and Output 05/01/17 05/01/17 05/02/17 15:00 23:00 07:00 Intake Total 350 ml 890 ml 690 ml Output Total 1000 ml 700 ml Balance 350 ml -110 ml -10 ml Exam Constitutional: alert Respiratory: diminished breath sounds, normal air movement Cardiovascular: nl pulses, other (S1S2, AFLUTTER) Gastrointestinal: non-tender, other (GT INTACT), soft Musculoskeletal: nl extremities to inspection Extremities: normal pulses Neurological: confused Results Result Diagram: 05/01/1719 05/01/17618 Medications Medications Current Medications Cefepime HCl (Maxipime 2gm/50 ml (Pmx)) 50 ml @ 100 mls/hr Q12 IVPB Last administered on 05/02/17 10:57; Admin Dose 100 MLS/HR; Start 04/25/17 at 12: 30 Apixaban (Eliquis) 2.5 mg BID PO Last administered on 05/02/17 09:20; Admin Dose 2.5 MG; Start 04/26/17 at 09:00 Atenolol (Tenormin) 12.5 mg BID PO Last administered on 05/02/17 09:20; Admin Dose 12.5 MG; Start 04/25/17 at 21:00 Metoprolol Tartrate (Lopressor) 5 mg Q4H PRN IV HR>110 Hold SBP<100; Start at 15:00 Acetaminophen (Tylenol Liquid) 650 mg Q4H PRN GTB PAIN OR TEMP ABOVE 38C Last administered on 05/01/17 21:18; Admin Dose 650 MG; Start 04/25/17 at 15:30 Bisacodyl (Dulcolax Supp) 10 mg DAILY PRN [place] PRN; Start 04/25/17 at 15:30 Eye Lubricant (Artificial Tears Oph) 2 drop Q6H PRN BOTH EYES DRY EYES Last administered on 04/28/17 21:37; Admin Dose 2 DROP; Start 04/25/17 at 15:30 Ondansetron HCl (Zofran Inj) 4 mg Q6H PRN IV NAUSEA AND/OR VOMITING; Start at 15:30 Lansoprazole 30 mg 30 mg DAILY@06 GTB Last administered on 05/02/17 05:27; Admin Dose 30 MG; Start 04/26/17 at 06:02 Linezolid (Zyvox 600mg/D5W (Pmx)) 300 ml @ 300 mls/hr Q12 IVPB Last administered on 05/02/17 09:19; Admin Dose 300 MLS/HR; Start 04/27/17 at 15: 30 Furosemide (Lasix) 20 mg DAILY PO Last administered on 05/02/17 09:19; Admin Dose 20 MG; Start 04/29/17 at 09:00 Lactobacillus Acidophilus (Florajen3 Capsule) 1 each BID PO Last administered on 05/02/17 09:19; Admin Dose 1 EACH; Start 04/30/17 at 21:00 ALEXIS NAJERA May 02, 2017 12:11
--- NOTE | 2017-05-02 12:11 | CONS ---
Date/Time of Note Date/Time of Note DATE: 05/02/17 TIME: 12:03 Assessment/Plan Assessment/Plan Additional Assessment/Plan - recurrent sepsis, probably due to aspiration pneumonia/pneumonitis or bronchitis - RANDOLPH, probably due to fever - s/p sepsis due to bacteremia and UTI - s/p enterococcus bacteremia, tip of PICC grew Group B strep. Transthoracic echo on 01/16/2017, 03/25/2017 did not reveal valvular vegetation but difficult to assess MV. Pt was supposed to take an empiric course of endocarditis through 04/23/2017; Pt's said that she had completed antibiotics on 04/24/2017 - h/o rheumatic heart disease (probable rheumatic, severe MS on transthoracic echo) - recurrent UTI due to E. coli, proteus - dysphagia s/p PEG - diffuse moderate degree of gastritis s/p EGD 02/15/2017 - h/o gastritis due to H. pylori based on pathology 02/15/2017; Pt completed clarithromycin-based regimen (02/20/2017-), [id number] - h/o bleeding from GT site, and blood clots in tube feed, resolved - s/p recurrent CVA - h/o possible aspiration, improved - encephalopathy due to CVA. CSF from 01/19/2017: WBC=3, RBC=0, glu 53, pro=61, CSF ([place] serology negative, HSV negative, cocci CF negative, encephalitis meningitis panel could not be done due to a lack of sample), serum ([place] PCR negative, crypto antigen negative, cocci CF negative, histo CF negative). - h/o bacteremia due to CoNS, probable contaminant. - h/o MARIELA - A fib - h/o DVT - h/o LLE ischemia s/p thrombolysis and subsequent open thrombectomy and fasciotomy at [facility] 09/2015 - h/o thrombus on DEBBIE per records from [facility] - h/o funguria recommendations: - complete course of linezolid/cefepime x 7 days - monitor plts/cbc - probiotics Dw Dr Bosch/RN Consultation Date/Type/Reason Admit Date/Time Apr 25, 2017 at 04:52 Initial Consult Date 04/25/17 Type of Consultation: id Referring Provider: ROXANA TORO MD 24 HR Interval Summary Constitutional: requiring IVF Detailed Summary Respiratory: no complaints Cardiovascular: no complaints Gastrointestinal: no complaints Genitourinary: no complaints Neurologic: confusion Exam/Review of Systems Vital Signs Vitals Vital Signs Date Time Temp Pulse Resp B/P Pulse Ox O2 Delivery O2 Flow Rate FiO2 05/02/17 11:20 97.8 68 17 120/65 97 05/02/17 01:20 21 Intake and Output 05/01/17 05/01/17 05/02/17 15:00 23:00 07:00 Intake Total 350 ml 890 ml 690 ml Output Total 1000 ml 700 ml Balance 350 ml -110 ml -10 ml Exam Constitutional: alert Respiratory: diminished breath sounds, normal air movement Cardiovascular: nl pulses, other (S1S2, AFLUTTER) Gastrointestinal: non-tender, other (GT INTACT), soft Musculoskeletal: nl extremities to inspection Extremities: normal pulses Neurological: confused Results Result Diagram: 05/01/1719 05/01/17618 Medications Medications Current Medications Cefepime HCl (Maxipime 2gm/50 ml (Pmx)) 50 ml @ 100 mls/hr Q12 IVPB Last administered on 05/02/17 10:57; Admin Dose 100 MLS/HR; Start 04/25/17 at 12: 30 Apixaban (Eliquis) 2.5 mg BID PO Last administered on 05/02/17 09:20; Admin Dose 2.5 MG; Start 04/26/17 at 09:00 Atenolol (Tenormin) 12.5 mg BID PO Last administered on 05/02/17 09:20; Admin Dose 12.5 MG; Start 04/25/17 at 21:00 Metoprolol Tartrate (Lopressor) 5 mg Q4H PRN IV HR>110 Hold SBP<100; Start at 15:00 Acetaminophen (Tylenol Liquid) 650 mg Q4H PRN GTB PAIN OR TEMP ABOVE 38C Last administered on 05/01/17 21:18; Admin Dose 650 MG; Start 04/25/17 at 15:30 Bisacodyl (Dulcolax Supp) 10 mg DAILY PRN [place] PRN; Start 04/25/17 at 15:30 Eye Lubricant (Artificial Tears Oph) 2 drop Q6H PRN BOTH EYES DRY EYES Last administered on 04/28/17 21:37; Admin Dose 2 DROP; Start 04/25/17 at 15:30 Ondansetron HCl (Zofran Inj) 4 mg Q6H PRN IV NAUSEA AND/OR VOMITING; Start at 15:30 Lansoprazole 30 mg 30 mg DAILY@06 GTB Last administered on 05/02/17 05:27; Admin Dose 30 MG; Start 04/26/17 at 06:02 Linezolid (Zyvox 600mg/D5W (Pmx)) 300 ml @ 300 mls/hr Q12 IVPB Last administered on 05/02/17 09:19; Admin Dose 300 MLS/HR; Start 04/27/17 at 15: 30 Furosemide (Lasix) 20 mg DAILY PO Last administered on 05/02/17 09:19; Admin Dose 20 MG; Start 04/29/17 at 09:00 Lactobacillus Acidophilus (Florajen3 Capsule) 1 each BID PO Last administered on 05/02/17 09:19; Admin Dose 1 EACH; Start 04/30/17 at 21:00 ALEXIS NAJERA May 02, 2017 12:11
--- NOTE | 2017-05-02 14:03 | CONS ---
Date/Time of Note Date/Time of Note DATE: 05/02/17 TIME: 14:02 Assessment/Plan Assessment/Plan Additional Assessment/Plan 1. Chronic atrial fibrillation 2. Congestive heart failure 3. Hypertension 4. Mitral stenosis 5. Anemia. 6. Deep venous thrombosis. Hemodynamically stable Continue Atenolol Discontinued Eliquis. she has mitral stenosis with a.fib coumadin is indicated Continue Lasix Continue Antibiotics Consultation Date/Type/Reason Admit Date/Time Apr 25, 2017 at 04:52 Initial Consult Date 04/25/17 Type of Consultation: id Referring Provider: ROXANA TORO MD Exam/Review of Systems Vital Signs Vitals Vital Signs Date Time Temp Pulse Resp B/P Pulse Ox O2 Delivery O2 Flow Rate FiO2 05/02/17 12:04 72 05/02/17 11:20 97.8 17 120/65 97 05/02/17 01:20 21 Intake and Output 05/01/17 05/01/17 05/02/17 15:00 23:00 07:00 Intake Total 350 ml 890 ml 690 ml Output Total 1000 ml 700 ml Balance 350 ml -110 ml -10 ml Exam Constitutional: alert Psych: no complaints Head: atraumatic, normocephalic Respiratory: clear to auscultation Cardiovascular: irregular rhythm, other (diastolic murmur heard at 5th LICS) Results Result Diagram: 05/01/1761805/01/17618 Medications Medications Current Medications Cefepime HCl (Maxipime 2gm/50 ml (Pmx)) 50 ml @ 100 mls/hr Q12 IVPB Last administered on 05/02/17 10:57; Admin Dose 100 MLS/HR; Start 04/25/17 at 12: 30 Apixaban (Eliquis) 2.5 mg BID PO Last administered on 05/02/17 09:20; Admin Dose 2.5 MG; Start 04/26/17 at 09:00 Atenolol (Tenormin) 12.5 mg BID PO Last administered on 05/02/17 09:20; Admin Dose 12.5 MG; Start 04/25/17 at 21:00 Metoprolol Tartrate (Lopressor) 5 mg Q4H PRN IV HR>110 Hold SBP<100; Start at 15:00 Acetaminophen (Tylenol Liquid) 650 mg Q4H PRN GTB PAIN OR TEMP ABOVE 38C Last administered on 05/01/17 21:18; Admin Dose 650 MG; Start 04/25/17 at 15:30 Bisacodyl (Dulcolax Supp) 10 mg DAILY PRN [place] PRN; Start 04/25/17 at 15:30 Eye Lubricant (Artificial Tears Oph) 2 drop Q6H PRN BOTH EYES DRY EYES Last administered on 04/28/17 21:37; Admin Dose 2 DROP; Start 04/25/17 at 15:30 Ondansetron HCl (Zofran Inj) 4 mg Q6H PRN IV NAUSEA AND/OR VOMITING; Start at 15:30 Lansoprazole 30 mg 30 mg DAILY@06 GTB Last administered on 05/02/17 05:27; Admin Dose 30 MG; Start 04/26/17 at 06:02 Linezolid (Zyvox 600mg/D5W (Pmx)) 300 ml @ 300 mls/hr Q12 IVPB Last administered on 05/02/17 09:19; Admin Dose 300 MLS/HR; Start 04/27/17 at 15: 30 Furosemide (Lasix) 20 mg DAILY PO Last administered on 05/02/17 09:19; Admin Dose 20 MG; Start 04/29/17 at 09:00 Lactobacillus Acidophilus (Florajen3 Capsule) 1 each BID PO Last administered on 05/02/17 09:19; Admin Dose 1 EACH; Start 04/30/17 at 21:00 JOSEFA WEINSTEIN M.D. May 02, 2017 14:03
[2017-05-02] MEDS: ACETAMINOPHEN 650MG/20.3ML CUP GTB PRN (14:06)
[2017-05-02] MEDS: WARFARIN 2 MG TAB PO SCH (16:47)
[2017-05-03] VITALS (12 sets, daily range): BP systolic 116–140; BP diastolic 53–75; PULSE 70–85; RESP 16–18
[2017-05-03] MEDS: LEVALBUTEROL (NEB) 0.31 MG/3 ML AMP INH SCH ×4 (01:46→20:29)
[2017-05-03] MEDS: ACETAMINOPHEN 650MG/20.3ML CUP GTB PRN ×2 (02:04→22:07)
[2017-05-03] MEDS: LANSOPRAZOLE 30 MG CAP GTB SCH (05:23)
[2017-05-03] MEDS: CEFEPIME 2GM/50 ML (PMX) 50 ML IVPB SCH (08:55)
[2017-05-03] MEDS: ATENOLOL 25 MG TAB PO SCH ×2 (08:55→21:57)
[2017-05-03] MEDS: L ACIDOPHIL/B LACTIS/B LONGUM CAPSULE PO SCH ×2 (08:55→21:56)
[2017-05-03] MEDS: FUROSEMIDE 20 MG TAB PO SCH (08:55)
[2017-05-03] MEDS: LINEZOLID 600 MG/D5W (PMX) 300 ML IVPB SCH ×2 (10:51→21:56)
--- NOTE | 2017-05-03 11:55 | CONS ---
Date/Time of Note Date/Time of Note DATE: 05/03/17 TIME: 11:51 Assessment/Plan Assessment/Plan Chief Complaint/Hosp Course IMPRESSION: 1. Atrial fibrillation with rapid ventricular response-currently well rate controlled/NL TSH 2. Congestive heart failure, likely systolic and diastolic, acute on chronic, but most recent echo January 2017 revealing an EF of 45%, cardiomyopathy with mildly decreased left ventricular ejection fraction approximately 45%. 3. Hypertension, under reasonable control. 4. Fevers. 5. History of mitral stenosis, severe by most recent echo, likely rheumatic by visualization. 6. Anemia. 7. Leukocytosis. 8. History of deep venous thrombosis. 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 PULMONARY: No sob CARDIOVASCULAR: No chest pain/palpitations GASTROINTESTINAL: No nausea/vomiting. GENITOURINARY: No hematuria/dysuria. MUSCULOSKELETAL: No myagias/arthalgias. PSYCHIATRIC: The patient denies depression. NEUROLOGIC: No weakness Constitutional: alert Head: normocephalic ENMT: mucosa pink and moist Neck: jvd (9 cm water), supple Respiratory: diminished breath sounds Cardiovascular: regular rate and rhythm Gastrointestinal: non-tender, soft Musculoskeletal: muscle tone (normal) Extremities: edema (none) Neurological: other (No focakl deficits) Results Result Diagram: 05/03/17 0551 05/03/17 0551 Results 24 hrs Laboratory Tests Test 05/02/17 14:20 05/03/17 05:51 Prothrombin Time 13.9 Prothrombin Time Ratio 1.1 INR International Normalized Ratio 1.07 White Blood Count 9.5 Red Blood Count 4.43 Hemoglobin 11.6 L Hematocrit 37.7 Mean Corpuscular Volume 85.1 Mean Corpuscular Hemoglobin 26.2 L Mean Corpuscular Hemoglobin Concent 30.8 L Red Cell Distribution Width 15.9 H Platelet Count 432 H Mean Platelet Volume 12.5 H Neutrophils % 73.4 Lymphocytes % 12.9 L Monocytes % 7.8 Eosinophils % 4.1 Basophils % 1.2 Nucleated Red Blood Cells % 0.0 Neutrophils # 7.0 Lymphocytes # 1.2 Monocytes # 0.7 Eosinophils # 0.4 Basophils # 0.1 Nucleated Red Blood Cells # 0.0 Sodium Level 142 Potassium Level 4.0 Chloride Level 103 Carbon Dioxide Level 25 Anion Gap 18 H Blood Urea Nitrogen 29 H Creatinine 1.11 H Glucose Level 120 Calcium Level 10.0 Medications Medications Current Medications Cefepime HCl (Maxipime 2gm/50 ml (Pmx)) 50 ml @ 100 mls/hr Q12 IVPB Last administered on 05/03/17 08:55; Admin Dose 100 MLS/HR; Start 04/25/17 at 12: 30 Atenolol (Tenormin) 12.5 mg BID PO Last administered on 05/03/17 08:55; Admin Dose 12.5 MG; Start 04/25/17 at 21:00 Metoprolol Tartrate (Lopressor) 5 mg Q4H PRN IV HR>110 Hold SBP<100; Start at 15:00 Acetaminophen (Tylenol Liquid) 650 mg Q4H PRN GTB PAIN OR TEMP ABOVE 38C Last administered on 05/03/17 02:04; Admin Dose 650 MG; Start 04/25/17 at 15:30 Bisacodyl (Dulcolax Supp) 10 mg DAILY PRN [place] PRN; Start 04/25/17 at 15:30 Eye Lubricant (Artificial Tears Oph) 2 drop Q6H PRN BOTH EYES DRY EYES Last administered on 04/28/17 21:37; Admin Dose 2 DROP; Start 04/25/17 at 15:30 Ondansetron HCl (Zofran Inj) 4 mg Q6H PRN IV NAUSEA AND/OR VOMITING; Start at 15:30 Lansoprazole 30 mg 30 mg DAILY@06 GTB Last administered on 05/03/17 05:23; Admin Dose 30 MG; Start 04/26/17 at 06:02 Linezolid (Zyvox 600mg/D5W (Pmx)) 300 ml @ 300 mls/hr Q12 IVPB Last administered on 05/03/17 10:51; Admin Dose 300 MLS/HR; Start 04/27/17 at 15: 30 Furosemide (Lasix) 20 mg DAILY PO Last administered on 05/03/17 08:55; Admin Dose 20 MG; Start 04/29/17 at 09:00 Lactobacillus Acidophilus (Florajen3 Capsule) 1 each BID PO Last administered on 05/03/17 08:55; Admin Dose 1 EACH; Start 04/30/17 at 21:00 Warfarin Sodium (Coumadin) 2 mg DAILY@17 PO Last administered on 05/02/17 16: 47; Admin Dose 2 MG; Start 05/02/17 at 17:00 MINOO REY May 03, 2017 11:54
--- NOTE | 2017-05-03 12:51 | PN ---
Date/Time of Note Date/Time of Note DATE: 05/03/17 TIME: 12:48 Assessment/Plan VTE Prophylaxis VTE Prophylaxis Intervention: SCD's Lines/Catheters IV [facility] Urinary Cath still in place: Yes Reason Cath still needed: urinary retention Assessment/Plan Chief Complaint/Hosp Course No acute events overnight, patient is awake alert. Atrial fibrillation at controlled rate. Assessment/Plan - Recurrent sepsis secondary to early pneumonia versus bronchitis. S/p cefepime. Dr. Bosch is following in ID consultation. -VRE in urine, continue Zyvox. - Bilateral thalamic infarctions. Dr. Ramirez is following in neurology consultation. - Dysphagia with G-tube. - Atrial fibrillation with rapid ventricular response. Dr. Armenta is following and cardiology consultation. Continue Coumadin, atenolol. - Mitral stenosis - CHF, continue Lasix. Monitor electrolytes. - Thrombosis of the bilateral cephalic veins. Further recommendations based on clinical course. Plan of care discussed with Dr. Valdovinos. Problems: Exam/Review of Systems Vital Signs Vitals Vital Signs Date Time Temp Pulse Resp B/P Pulse Ox O2 Delivery O2 Flow Rate FiO2 05/03/17 11:08 98.2 59 18 140/63 95 05/03/17 08:30 21 Intake and Output 05/02/17 05/02/17 05/03/17 15:00 23:00 07:00 Intake Total 350 ml 720 ml 680 ml Output Total 1300 ml 800 ml Balance 350 ml -580 ml -120 ml Exam Constitutional: alert, oriented Respiratory: diminished breath sounds Cardiovascular: irregular rhythm Gastrointestinal: non-tender, other (G-tube), soft Musculoskeletal: muscle weakness Results Result Diagram: 05/03/17 0551 05/03/17 0551 Results 24 hrs Laboratory Tests Test 05/02/17 14:20 05/03/17 05:51 Prothrombin Time 13.9 Prothrombin Time Ratio 1.1 INR International Normalized Ratio 1.07 White Blood Count 9.5 Red Blood Count 4.43 Hemoglobin 11.6 L Hematocrit 37.7 Mean Corpuscular Volume 85.1 Mean Corpuscular Hemoglobin 26.2 L Mean Corpuscular Hemoglobin Concent 30.8 L Red Cell Distribution Width 15.9 H Platelet Count 432 H Mean Platelet Volume 12.5 H Neutrophils % 73.4 Lymphocytes % 12.9 L Monocytes % 7.8 Eosinophils % 4.1 Basophils % 1.2 Nucleated Red Blood Cells % 0.0 Neutrophils # 7.0 Lymphocytes # 1.2 Monocytes # 0.7 Eosinophils # 0.4 Basophils # 0.1 Nucleated Red Blood Cells # 0.0 Sodium Level 142 Potassium Level 4.0 Chloride Level 103 Carbon Dioxide Level 25 Anion Gap 18 H Blood Urea Nitrogen 29 H Creatinine 1.11 H Glucose Level 120 Calcium Level 10.0 Medications Medications Current Medications Cefepime HCl (Maxipime 2gm/50 ml (Pmx)) 50 ml @ 100 mls/hr Q12 IVPB Last administered on 05/03/17 08:55; Admin Dose 100 MLS/HR; Start 04/25/17 at 12: 30 Atenolol (Tenormin) 12.5 mg BID PO Last administered on 05/03/17 08:55; Admin Dose 12.5 MG; Start 04/25/17 at 21:00 Metoprolol Tartrate (Lopressor) 5 mg Q4H PRN IV HR>110 Hold SBP<100; Start at 15:00 Acetaminophen (Tylenol Liquid) 650 mg Q4H PRN GTB PAIN OR TEMP ABOVE 38C Last administered on 05/03/17 02:04; Admin Dose 650 MG; Start 04/25/17 at 15:30 Bisacodyl (Dulcolax Supp) 10 mg DAILY PRN [place] PRN; Start 04/25/17 at 15:30 Eye Lubricant (Artificial Tears Oph) 2 drop Q6H PRN BOTH EYES DRY EYES Last administered on 04/28/17 21:37; Admin Dose 2 DROP; Start 04/25/17 at 15:30 Ondansetron HCl (Zofran Inj) 4 mg Q6H PRN IV NAUSEA AND/OR VOMITING; Start at 15:30 Lansoprazole 30 mg 30 mg DAILY@06 GTB Last administered on 05/03/17 05:23; Admin Dose 30 MG; Start 04/26/17 at 06:02 Linezolid (Zyvox 600mg/D5W (Pmx)) 300 ml @ 300 mls/hr Q12 IVPB Last administered on 05/03/17 10:51; Admin Dose 300 MLS/HR; Start 10/24/17 at 15: 30 Furosemide (Lasix) 20 mg DAILY PO Last administered on 05/03/17 08:55; Admin Dose 20 MG; Start 04/29/17 at 09:00 Lactobacillus Acidophilus (Florajen3 Capsule) 1 each BID PO Last administered on 05/03/17 08:55; Admin Dose 1 EACH; Start 04/30/17 at 21:00 Warfarin Sodium (Coumadin) 2 mg DAILY@17 PO Last administered on 05/02/17 16: 47; Admin Dose 2 MG; Start 05/02/17 at 17:00 LAWRENCE PICKERING May 03, 2017 12:51
[2017-05-03] MEDS: WARFARIN 2 MG TAB PO SCH (17:04)
--- NOTE | 2017-05-03 20:09 | CONS ---
Date/Time of Note Date/Time of Note DATE: 05/03/17 TIME: 20:08 Assessment/Plan Assessment/Plan Chief Complaint/Hosp Course - recurrent sepsis, probably due to aspiration pneumonia/pneumonitis or bronchitis -resolving - RANDOLPH, probably due to fever - resolved - VRE in urine with no significant pyuria - s/p sepsis due to bacteremia and UTI - s/p enterococcus bacteremia, tip of PICC grew Group B strep. Transthoracic echo on 01/16/2017, 03/25/2017 did not reveal valvular vegetation but difficult to assess MV. Pt was supposed to take an empiric course of endocarditis through 04/23/2017; Pt's said that she had completed antibiotics on 04/24/2017 - h/o rheumatic heart disease (probable rheumatic, severe MS on transthoracic echo) - recurrent UTI due to E. coli, proteus - A fib - HR controlled - dysphagia s/p PEG - diffuse moderate degree of gastritis s/p EGD 02/15/2017 - h/o gastritis due to H. pylori based on pathology 02/15/2017; Pt completed clarithromycin-based regimen (02/20/2017-), [id number] - h/o bleeding from GT site, and blood clots in tube feed, resolved - s/p recurrent CVA - h/o possible aspiration, improved - encephalopathy due to CVA. CSF from 01/19/2017: WBC=3, RBC=0, glu 53, pro=61, CSF ([place] serology negative, HSV negative, cocci CF negative, encephalitis meningitis panel could not be done due to a lack of sample), serum ([place] PCR negative, crypto antigen negative, cocci CF negative, histo CF negative). - h/o bacteremia due to CoNS, probable contaminant. - h/o MARIELA - h/o DVT - h/o LLE ischemia s/p thrombolysis and subsequent open thrombectomy and fasciotomy at [facility] 09/2015 - h/o thrombus on DEBBIE per records from [facility] - h/o funguria recommendations: - DC cefepime - complete 7 day course of linezolid in AM then monitor closely off antibiotics - continue probiotics Management d/w pt, her spouse and her sister and Dr. Bosch Problems: Consultation Date/Type/Reason Admit Date/Time Apr 25, 2017 at 04:52 Initial Consult Date 04/25/17 Type of Consultation: Infectious Disease Referring Provider: ROXANA TORO MD 24 HR Interval Summary Free Text/Dictation C/o nocturnal productive cough with white phlegm that is improving. Denies SOB, CP, abd pain, n/v/d, dysuria. +FC. C/o mild pain to R hand HL. Exam/Review of Systems Vital Signs Vitals Vital Signs Date Time Temp Pulse Resp B/P Pulse Ox O2 Delivery O2 Flow Rate FiO2 05/03/17 16:00 78 05/03/17 15:17 97.8 18 138/72 100 05/03/17 13:01 21 Intake and Output 05/02/17 05/02/17 05/03/17 15:00 23:00 07:00 Intake Total 350 ml 720 ml 680 ml Output Total 1300 ml 800 ml Balance 350 ml -580 ml -120 ml Exam Constitutional: alert, oriented, well developed Head: atraumatic, normocephalic Eyes: nl sclera, other (ptosis of L eye -unchanged) Neck: supple Respiratory: diminished breath sounds Cardiovascular: irregular rhythm Gastrointestinal: other (GT intact; pureed brown stool noted and nursing staff alerted), soft Genitourinary - Female: other (Lees catheter intact) Musculoskeletal: nl extremities to inspection Extremities: normal pulses, No edema Neurological: other (Urdu speaking) Skin: nl turgor Results Result Diagram: 05/03/17 0551 05/03/17 0551 Results 24 hrs Laboratory Tests Test 05/03/17 05:51 White Blood Count 9.5 Red Blood Count 4.43 Hemoglobin 11.6 L Hematocrit 37.7 Mean Corpuscular Volume 85.1 Mean Corpuscular Hemoglobin 26.2 L Mean Corpuscular Hemoglobin Concent 30.8 L Red Cell Distribution Width 15.9 H Platelet Count 432 H Mean Platelet Volume 12.5 H Neutrophils % 73.4 Lymphocytes % 12.9 L Monocytes % 7.8 Eosinophils % 4.1 Basophils % 1.2 Nucleated Red Blood Cells % 0.0 Neutrophils # 7.0 Lymphocytes # 1.2 Monocytes # 0.7 Eosinophils # 0.4 Basophils # 0.1 Nucleated Red Blood Cells # 0.0 Sodium Level 142 Potassium Level 4.0 Chloride Level 103 Carbon Dioxide Level 25 Anion Gap 18 H Blood Urea Nitrogen 29 H Creatinine 1.11 H Glucose Level 120 Calcium Level 10.0 Medications Medications Current Medications Cefepime HCl (Maxipime 2gm/50 ml (Pmx)) 50 ml @ 100 mls/hr Q12 IVPB Last administered on 05/03/17 08:55; Admin Dose 100 MLS/HR; Start 04/25/17 at 12: 30 Atenolol (Tenormin) 12.5 mg BID PO Last administered on 05/03/17 08:55; Admin Dose 12.5 MG; Start 04/25/17 at 21:00 Metoprolol Tartrate (Lopressor) 5 mg Q4H PRN IV HR>110 Hold SBP<100; Start at 15:00 Acetaminophen (Tylenol Liquid) 650 mg Q4H PRN GTB PAIN OR TEMP ABOVE 38C Last administered on 05/03/17 02:04; Admin Dose 650 MG; Start 04/25/17 at 15:30 Bisacodyl (Dulcolax Supp) 10 mg DAILY PRN [place] PRN; Start 04/25/17 at 15:30 Eye Lubricant (Artificial Tears Oph) 2 drop Q6H PRN BOTH EYES DRY EYES Last administered on 04/28/17 21:37; Admin Dose 2 DROP; Start 04/25/17 at 15:30 Ondansetron HCl (Zofran Inj) 4 mg Q6H PRN IV NAUSEA AND/OR VOMITING; Start at 15:30 Lansoprazole 30 mg 30 mg DAILY@06 GTB Last administered on 05/03/17 05:23; Admin Dose 30 MG; Start 04/26/17 at 06:02 Linezolid (Zyvox 600mg/D5W (Pmx)) 300 ml @ 300 mls/hr Q12 IVPB Last administered on 05/03/17 10:51; Admin Dose 300 MLS/HR; Start 04/27/17 at 15: 30 Furosemide (Lasix) 20 mg DAILY PO Last administered on 05/03/17 08:55; Admin Dose 20 MG; Start 04/29/17 at 09:00 Lactobacillus Acidophilus (Florajen3 Capsule) 1 each BID PO Last administered on 05/03/17 08:55; Admin Dose 1 EACH; Start 04/30/17 at 21:00 Warfarin Sodium (Coumadin) 2 mg DAILY@17 PO Last administered on 05/03/17t 17: 04; Admin Dose 2 MG; Start 05/02/17 at 17:00 GIRISH SCHMITZ NP May 03, 2017 20:09
[2017-05-04] VITALS (10 sets, daily range): BP systolic 91–120; BP diastolic 55–79; PULSE 69–101; RESP 16–18
[2017-05-04] MEDS: LEVALBUTEROL (NEB) 0.31 MG/3 ML AMP INH SCH ×3 (02:05→13:22)
[2017-05-04] MEDS: LANSOPRAZOLE 30 MG CAP GTB SCH (06:15)
[2017-05-04] MEDS: LINEZOLID 600 MG/D5W (PMX) 300 ML IVPB SCH (08:33)
[2017-05-04] MEDS: ATENOLOL 25 MG TAB PO SCH (08:33)
[2017-05-04] MEDS: L ACIDOPHIL/B LACTIS/B LONGUM CAPSULE PO SCH (08:34)
[2017-05-04] MEDS: FUROSEMIDE 20 MG TAB PO SCH (08:34)
[2017-05-04] MEDS ORDERED: PNEUMOCOCCAL VACCINE 0.5 ML INJ IM* ONE (15:30)
[2017-05-04] MEDS: ACETAMINOPHEN 650MG/20.3ML CUP GTB PRN (15:32)
--- NOTE | 2017-05-04 15:33 | CONS ---
Date/Time of Note Date/Time of Note DATE: 05/04/17 TIME: 15:31 Assessment/Plan Assessment/Plan Additional Assessment/Plan 1. Atrial fibrillation with rapid ventricular response-currently well rate controlled/NL TSH - rate controlled now. 2. Congestive heart failure, likely systolic and diastolic, acute on chronic, but most recent echo January 2017 revealing an EF of 45%, cardiomyopathy with mildly decreased left ventricular ejection fraction approximately 45%.- no indication for ICD. 3. Hypertension, under reasonable control - will follow. 4. Fevers - on anti- Bx. 5. History of mitral stenosis, severe by most recent echo, likely rheumatic by visualization. 6. Anemia. 7. Leukocytosis. 8. History of deep venous thrombosis. Consultation Date/Type/Reason Admit Date/Time Apr 25, 2017 at 04:52 Initial Consult Date 04/25/17 Type of Consultation: Infectious Disease Referring Provider: ROXANA TORO MD 24 HR Interval Summary Free Text/Dictation NO acute events - HR well controlled, will monitor clinically ROS: No fever, no chills, no nausea, no vomiting, no diarrhea/constipation No recent weight changes No chest pain, no PND, no orthopnea No dizziness, blurred vision No thirst, no heat or cold intolerance Exam/Review of Systems Vital Signs Vitals Vital Signs Date Time Temp Pulse Resp B/P Pulse Ox O2 Delivery O2 Flow Rate FiO2 05/04/17 15:28 97.6 96 18 91/58 98 05/04/17 13:32 21 Intake and Output 05/03/17 05/03/17 05/04/17 15:00 23:00 07:00 Intake Total 550 ml Output Total 1100 ml Balance -550 ml Exam General: WN/WD/NAD, AOx 2-3 HEENT: Unicetric/atraumatic/EOMI (follow commands) NECK: JVD elevated, no thyromegaly Lymph: no lymphadenopathy HEART: irregular with no S3, II/ systolic murmur at apex ans 2/6 diast m LUNGS: Coarse sounds ABD: soft, NT, ND, +BS : Intact Neuro: non focal SKIN: chronic changes EXT: trace edema Results Result Diagram: 05/03/17 0551 05/03/17 0551 Results 24 hrs Laboratory Tests Test 05/04/17 07:17 Prothrombin Time 13.2 Prothrombin Time Ratio 1.0 INR International Normalized Ratio 1.00 Medications Medications Current Medications Atenolol (Tenormin) 12.5 mg BID PO Last administered on 05/03/17 21:57; Admin Dose 12.5 MG; Start 04/25/17 at 21:00 Metoprolol Tartrate (Lopressor) 5 mg Q4H PRN IV HR>110 Hold SBP<100; Start at 15:00 Acetaminophen (Tylenol Liquid) 650 mg Q4H PRN GTB PAIN OR TEMP ABOVE 38C Last administered on 05/03/17 22:07; Admin Dose 650 MG; Start 04/25/17 at 15:30 Bisacodyl (Dulcolax Supp) 10 mg DAILY PRN OR PRN; Start 04/25/17 at 15:30 Eye Lubricant (Artificial Tears Oph) 2 drop Q6H PRN BOTH EYES DRY EYES Last administered on 04/28/17 21:37; Admin Dose 2 DROP; Start 04/25/17 at 15:30 Ondansetron HCl (Zofran Inj) 4 mg Q6H PRN IV NAUSEA AND/OR VOMITING; Start at 15:30 Lansoprazole (Prevacid) 30 mg DAILY@06 GTB Last administered on 05/04/17 06: 15; Admin Dose 30 MG; Start 04/26/17 at 06:02 Furosemide (Lasix) 20 mg DAILY PO Last administered on 05/04/17 08:34; Admin Dose 20 MG; Start 04/29/17 at 09:00 Lactobacillus Acidophilus (Florajen3 Capsule) 1 each BID PO Last administered on 05/04/17 08:34; Admin Dose 1 EACH; Start 04/30/17 at 21:00 Warfarin Sodium (Coumadin) 2 mg DAILY@17 PO Last administered on 05/03/17 17: 04; Admin Dose 2 MG; Start 05/02/17 at 17:00 Pneumococcal Polyvalent Vaccine (Pneumovax-23) 0.5 ml ONCE ONCE IM* ; Start at 15:30; Stop 05/04/17 at 15:31 YAJAIRA ALVAREZ MD May 04, 2017 15:33
--- NOTE | 2017-05-04 16:14 | CONS ---
Date/Time of Note Date/Time of Note DATE: 05/04/17 TIME: 16:13 Assessment/Plan Assessment/Plan Chief Complaint/Hosp Course - recurrent sepsis, probably due to aspiration pneumonia/pneumonitis or bronchitis -resolving - RANDOLPH, probably due to fever - resolved - VRE in urine with no significant pyuria - s/p sepsis due to bacteremia and UTI - s/p enterococcus bacteremia, tip of PICC grew Group B strep. Transthoracic echo on 01/16/2017, 03/25/2017 did not reveal valvular vegetation but difficult to assess MV. Pt was supposed to take an empiric course of endocarditis through 04/23/2017; Pt's said that she had completed antibiotics on 04/24/2017 - h/o rheumatic heart disease (probable rheumatic, severe MS on transthoracic echo) - recurrent UTI due to E. coli, proteus - A fib - HR controlled - dysphagia s/p PEG - diffuse moderate degree of gastritis s/p EGD 02/15/2017 - h/o gastritis due to H. 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 CSF from 01/19/2017: WBC=3, RBC=0, glu 53, pro=61, CSF ([place] serology negative, HSV negative, cocci CF negative, encephalitis meningitis panel could not be done due to a lack of sample), serum ([place] PCR negative, crypto antigen negative, cocci CF negative, histo CF negative). - h/o bacteremia due to CoNS, probable contaminant. - h/o MARIELA - h/o DVT - h/o LLE ischemia s/p thrombolysis and subsequent open thrombectomy and fasciotomy at [facility] 09/2015 - h/o thrombus on DEBBIE per records from [facility] - h/o funguria recommendations: - monitor off abx closely Problems: Consultation Date/Type/Reason Admit Date/Time Apr 25, 2017 at 04:52 Initial Consult Date 04/25/17 Type of Consultation: Infectious Disease Referring Provider: ROXANA TORO MD Exam/Review of Systems Vital Signs Vitals Vital Signs Date Time Temp Pulse Resp B/P Pulse Ox O2 Delivery O2 Flow Rate FiO2 05/04/17 15:28 97.6 96 18 91/58 98 05/04/17 13:32 21 Intake and Output 05/03/17 05/03/17 05/04/17 15:00 23:00 07:00 Intake Total 550 ml Output Total 1100 ml Balance -550 ml Results Result Diagram: 05/03/17 0551 05/03/17 0551 Results 24 hrs Laboratory Tests Test 05/04/17 07:17 Prothrombin Time 13.2 Prothrombin Time Ratio 1.0 INR International Normalized Ratio 1.00 Medications Medications Current Medications Atenolol (Tenormin) 12.5 mg BID PO Last administered on 05/03/17 21:57; Admin Dose 12.5 MG; Start 04/25/17 at 21:00 Metoprolol Tartrate (Lopressor) 5 mg Q4H PRN IV HR>110 Hold SBP<100; Start at 15:00 Acetaminophen (Tylenol Liquid) 650 mg Q4H PRN GTB PAIN OR TEMP ABOVE 38C Last administered on 05/04/17 15:32; Admin Dose 650 MG; Start 04/25/17 at 15:30 Bisacodyl (Dulcolax Supp) 10 mg DAILY PRN [place] PRN; Start 04/25/17 at 15:30 Eye Lubricant (Artificial Tears Oph) 2 drop Q6H PRN BOTH EYES DRY EYES Last administered on 04/28/17 21:37; Admin Dose 2 DROP; Start 04/25/17 at 15:30 Ondansetron HCl (Zofran Inj) 4 mg Q6H PRN IV NAUSEA AND/OR VOMITING; Start at 15:30 Lansoprazole (Prevacid) 30 mg DAILY@06 GTB Last administered on 05/04/17 06: 15; Admin Dose 30 MG; Start 04/26/17 at 06:02 Furosemide (Lasix) 20 mg DAILY PO Last administered on 05/04/17 08:34; Admin Dose 20 MG; Start 04/29/17 at 09:00 Lactobacillus Acidophilus (Florajen3 Capsule) 1 each BID PO Last administered on 05/04/17 08:34; Admin Dose 1 EACH; Start 04/30/17 at 21:00 Warfarin Sodium (Coumadin) 2 mg DAILY@17 PO Last administered on 05/03/17t 17: 04; Admin Dose 2 MG; Start 05/02/17 at 17:00 SHELBY SHUKLA MD May 04, 2017 16:14
--- NOTE | 2017-05-04 16:14 | CONS ---
Date/Time of Note Date/Time of Note DATE: 05/04/17 TIME: 16:13 Assessment/Plan Assessment/Plan Chief Complaint/Hosp Course - recurrent sepsis, probably due to aspiration pneumonia/pneumonitis or bronchitis -resolving - RANDOLPH, probably due to fever - resolved - VRE in urine with no significant pyuria - s/p sepsis due to bacteremia and UTI - s/p enterococcus bacteremia, tip of PICC grew Group B strep. Transthoracic echo on 01/16/2017, 03/25/2017 did not reveal valvular vegetation but difficult to assess MV. Pt was supposed to take an empiric course of endocarditis through 04/23/2017; Pt's said that she had completed antibiotics on 04/24/2017 - h/o rheumatic heart disease (probable rheumatic, severe MS on transthoracic echo) - recurrent UTI due to E. coli, proteus - A fib - HR controlled - dysphagia s/p PEG - diffuse moderate degree of gastritis s/p EGD 02/15/2017 - h/o gastritis due to H. pylori based on pathology 02/15/2017; Pt completed clarithromycin-based regimen (02/20/2017-), [id number] - h/o bleeding from GT site, and blood clots in tube feed, resolved - s/p recurrent CVA - h/o possible aspiration, improved - encephalopathy due to CVA. CSF from 01/19/2017: WBC=3, RBC=0, glu 53, pro=61, CSF ([place] serology negative, HSV negative, cocci CF negative, encephalitis meningitis panel could not be done due to a lack of sample), serum ([place] PCR negative, crypto antigen negative, cocci CF negative, histo CF negative). - h/o bacteremia due to CoNS, probable contaminant. - h/o MARIELA - h/o DVT - h/o LLE ischemia s/p thrombolysis and subsequent open thrombectomy and fasciotomy at [facility] 09/2015 - h/o thrombus on DEBBIE per records from [facility] - h/o funguria recommendations: - monitor off abx closely Problems: Consultation Date/Type/Reason Admit Date/Time Apr 25, 2017 at 04:52 Initial Consult Date 04/25/17 Type of Consultation: Infectious Disease Referring Provider: ROXANA TORO MD Exam/Review of Systems Vital Signs Vitals Vital Signs Date Time Temp Pulse Resp B/P Pulse Ox O2 Delivery O2 Flow Rate FiO2 05/04/17 15:28 97.6 96 18 91/58 98 05/04/17 13:32 21 Intake and Output 05/03/17 05/03/17 05/04/17 15:00 23:00 07:00 Intake Total 550 ml Output Total 1100 ml Balance -550 ml Results Result Diagram: 05/03/17 0551 05/03/17 0551 Results 24 hrs Laboratory Tests Test 05/04/17 07:17 Prothrombin Time 13.2 Prothrombin Time Ratio 1.0 INR International Normalized Ratio 1.00 Medications Medications Current Medications Atenolol (Tenormin) 12.5 mg BID PO Last administered on 05/03/17 21:57; Admin Dose 12.5 MG; Start 04/25/17 at 21:00 Metoprolol Tartrate (Lopressor) 5 mg Q4H PRN IV HR>110 Hold SBP<100; Start at 15:00 Acetaminophen (Tylenol Liquid) 650 mg Q4H PRN GTB PAIN OR TEMP ABOVE 38C Last administered on 05/04/17 15:32; Admin Dose 650 MG; Start 04/25/17 at 15:30 Bisacodyl (Dulcolax Supp) 10 mg DAILY PRN [place] PRN; Start 04/25/17 at 15:30 Eye Lubricant (Artificial Tears Oph) 2 drop Q6H PRN BOTH EYES DRY EYES Last administered on 04/28/17 21:37; Admin Dose 2 DROP; Start 04/25/17 at 15:30 Ondansetron HCl (Zofran Inj) 4 mg Q6H PRN IV NAUSEA AND/OR VOMITING; Start at 15:30 Lansoprazole (Prevacid) 30 mg DAILY@06 GTB Last administered on 05/04/17 06: 15; Admin Dose 30 MG; Start 04/26/17 at 06:02 Furosemide (Lasix) 20 mg DAILY PO Last administered on 05/04/17 08:34; Admin Dose 20 MG; Start 04/29/17 at 09:00 Lactobacillus Acidophilus (Florajen3 Capsule) 1 each BID PO Last administered on 05/04/17 08:34; Admin Dose 1 EACH; Start 04/30/17 at 21:00 Warfarin Sodium (Coumadin) 2 mg DAILY@17 PO Last administered on 05/03/17t 17: 04; Admin Dose 2 MG; Start 05/02/17 at 17:00 SHELBY SHUKLA MD May 04, 2017 16:14
[2017-05-04] MEDS: WARFARIN 2 MG TAB PO SCH (17:00)
--- NOTE | 2017-05-04 17:40 | PN ---
Date/Time of Note Date/Time of Note DATE: 05/04/17 TIME: 17:38 Assessment/Plan VTE Prophylaxis VTE Prophylaxis Intervention: other Lines/Catheters IV [facility] Saline Lock Urinary Cath still in place: Yes Reason Cath still needed: urinary retention Assessment/Plan Chief Complaint/Hosp Course No acute events overnight, patient is awake alert. Atrial fibrillation at controlled rate. patient can be DC'd to custodial facility after last dose of Zyvox Assessment/Plan - Recurrent sepsis secondary to early pneumonia versus bronchitis. S/p cefepime. Dr. Bosch is following in ID consultation. -VRE in urine, continue Zyvox. - Bilateral thalamic infarctions. Dr. Ramirez is following in neurology consultation. - Dysphagia with G-tube. - Atrial fibrillation with rapid ventricular response. Dr. Armenta is following and cardiology consultation. Continue Coumadin, atenolol. - Mitral stenosis - CHF, continue Lasix. Monitor electrolytes. - Thrombosis of the bilateral cephalic veins. Further recommendations based on clinical course. Plan of care discussed with Dr. Valdovinos. Problems: Exam/Review of Systems Vital Signs Vitals Vital Signs Date Time Temp Pulse Resp B/P Pulse Ox O2 Delivery O2 Flow Rate FiO2 05/04/17 16:00 75 05/04/17 15:28 97.6 18 91/58 98 05/04/17 13:32 21 Intake and Output 05/03/17 05/03/17 05/04/17 15:00 23:00 07:00 Intake Total 550 ml Output Total 1100 ml Balance -550 ml Exam Constitutional: alert, oriented Respiratory: diminished breath sounds Cardiovascular: irregular rhythm Gastrointestinal: non-tender, other (G-tube), soft Musculoskeletal: muscle weakness Results Result Diagram: 05/03/17 0551 05/03/17 0551 Results 24 hrs Laboratory Tests Test 05/04/17 07:17 Prothrombin Time 13.2 Prothrombin Time Ratio 1.0 INR International Normalized Ratio 1.00 Medications Medications Current Medications Atenolol (Tenormin) 12.5 mg BID PO Last administered on 05/03/17t 21:57; Admin Dose 12.5 MG; Start 04/25/17 at 21:00 Metoprolol Tartrate (Lopressor) 5 mg Q4H PRN IV HR>110 Hold SBP<100; Start at 15:00 Acetaminophen (Tylenol Liquid) 650 mg Q4H PRN GTB PAIN OR TEMP ABOVE 38C Last administered on 05/04/17 15:32; Admin Dose 650 MG; Start 04/25/17 at 15:30 Bisacodyl (Dulcolax Supp) 10 mg DAILY PRN [place] PRN; Start 04/25/17 at 15:30 Eye Lubricant (Artificial Tears Oph) 2 drop Q6H PRN BOTH EYES DRY EYES Last administered on 04/28/17 21:37; Admin Dose 2 DROP; Start 04/25/17 at 15:30 Ondansetron HCl (Zofran Inj) 4 mg Q6H PRN IV NAUSEA AND/OR VOMITING; Start at 15:30 Lansoprazole (Prevacid) 30 mg DAILY@06 GTB Last administered on 05/04/17 06: 15; Admin Dose 30 MG; Start 04/26/17 at 06:02 Furosemide (Lasix) 20 mg DAILY PO Last administered on 05/04/17 08:34; Admin Dose 20 MG; Start 04/29/17 at 09:00 Lactobacillus Acidophilus (Florajen3 Capsule) 1 each BID PO Last administered on 05/04/17 08:34; Admin Dose 1 EACH; Start 04/30/17 at 21:00 Warfarin Sodium (Coumadin) 2 mg DAILY@17 PO Last administered on 05/04/17 17: 00; Admin Dose 2 MG; Start 05/02/17 at 17:00 LAWRENCE PICKERING May 04, 2017 17:40
--- NOTE | 2017-05-07 11:27 | DS ---
Date/Time of Note Date/Time of Note DATE: 05/07/17 TIME: 11:25 Discharge Summary Admission/Discharge Info Admit Date/Time Apr 25, 2017 at 04:52 Discharge Date/Time May 04, 2017 at 18:27 Patient Condition: Stable Hx of Present Illness HPI Patient is a 61-year-old female patient is`admitted with fever of 100.8 Fahrenheit today. The patient just finished a 21 day course of antibiotics for bacteremia. History can not be obtained due to her mental status. at bed side states that the patient has fever and cough from last 2-3 days. No reported chest pain, dyspnea. vomitting. no shortness of breath noted when assessed. Plan of crer dw staff/ . ROS All systems reviewed and are negative except as per history of present illness. Allergies No Known Allergy (Unverified , 03/04/17) Hospital Course - Recurrent sepsis secondary to early pneumonia versus bronchitis. S/p cefepime. Dr. Bosch is following in ID consultation. -VRE in urine, completed treatment with Zyvox. - Bilateral thalamic infarctions. Dr. Ramirez is following in neurology consultation. - Dysphagia with G-tube. - Atrial fibrillation with rapid ventricular response. Patient is currently in atrial fibrillation at controlled rate. Dr. Armenta is following and cardiology consultation. Continue Coumadin, atenolol. Daily PT INR at care home facility - Mitral stenosis - CHF, continue Lasix. Monitor electrolytes. - Thrombosis of the bilateral cephalic veins. Home Meds Reported Medications Warfarin Sodium* (Coumadin*) 2 Mg Tablet, 2 MG GTB DAILY, TAB GIVE 2MG VIA GT QDAILY AT 5PM 05/07/17 L. Acidophilus/Pectin, [place] (Acidophilus Capsule) 1 Each Capsule, 1 EACH G- TUBE BID for GASTROINTESTINAL UPSET, CAP 05/07/17 Levalbuterol* (Xopenex*) 0.31 Mg/3 Ml Nebu, 0.31 MG INHALATION Q6HRS for SOB/ WHEEZING, EA 05/07/17 Lansoprazole* (Lansoprazole*) 30 Mg Capsule., 30 MG GTB DAILY, CAP VIA GTUBE QDAILY FOR GI PPX 05/07/17 Furosemide* (Furosemide*) 20 Mg Tablet, 20 MG GTB DAILY, #30 TAB 05/07/17 Atenolol* (Atenolol*) 25 Mg Tablet, 25 MG GTB BID, #60 TAB GIVE 1/2 TABELT VIA GTUBE BID FOR HTN HOLD IF SBP<110 OR HR<60 05/07/17 Midodrine* (Midodrine*) 5 Mg Tablet, 10 MG GTB Q8H Y for PRN, TAB IF SBP<110 04/25/17 Levalbuterol (Xopenex) 0.31 Mg/3 Ml Vial.neb, 3 ML INHALATION Q6, EA 04/25/17 Lansoprazole* (Lansoprazole*) 30 Mg Capsule.dr, 30 MG GTB BID, CAP 04/25/17 Digoxin* (Digitek*) 125 Mcg Tablet, 0.125 MG GTB DAILY, TAB 04/25/17 Bisacodyl* (Bisacodyl*) 10 Mg Supp, 10 MG AZ DAILY Y for PRN, SUPP 04/25/17 Atenolol* (Atenolol*) 25 Mg Tablet, 12.5 MG GTB BID, #60 TAB HOLD IF SBP<110 OR HR<60 04/25/17 Dextran 70/Hypromellose/Pf (ARTIFICIAL TEARS DROPS) 1 Each Droperette, 2 EACH OP Q6H Y for PRN 04/25/17 Apixaban* (Eliquis*) 5 Mg Tablet, 5 MG GTB BID, TAB 04/25/17 Acetaminophen* (Acetaminophen* Susp) 325 Mg/10.15 Ml Solution, 650 MG GTB Q4H Y for PAIN OR TEMP ABOVE 38C, ML 04/25/17 Discontinued Reported Medications Furosemide* (Furosemide*) 20 Mg Tablet, 20 MG PO DAILY, #60 TAB 05/07/17 Follow-up Plan CBC BMP in 1 week, daily PT/INR Primary Care Provider Kana Valdovinos MD Time spent on discharge: > 30 minutes LAWRENCE PICKERING May 07, 2017 11:27
== END 2017-05-04 18:27 | DRG 871 ==
LOC: E/R 00:51 → TEL 04:52
PROVIDERS: ADMIT Internal Medicine; ATTEND Internal Medicine
DX: A41.9 Sepsis, unspecified organism (principal); J69.0 Pneumonitis due to inhalation of food and vomit; G93.49 Other encephalopathy; I50.43 Acute on chronic combined systolic (congestive) and diastolic (congestive) heart failure; R13.10 Dysphagia, unspecified; I69.951 Hemiplegia and hemiparesis following unspecified cerebrovascular disease affecting right dominant side; N39.0 Urinary tract infection, site not specified; I82.613 Acute embolism and thrombosis of superficial veins of upper extremity, bilateral; I48.2 Chronic atrial fibrillation; Z16.21 Resistance to vancomycin; A49.01 Methicillin susceptible Staphylococcus aureus infection, unspecified site; Z79.01 Long term (current) use of anticoagulants; J40 Bronchitis, not specified as acute or chronic; Z79.02 Long term (current) use of antithrombotics/antiplatelets; I69.992 Facial weakness following unspecified cerebrovascular disease; I05.0 Rheumatic mitral stenosis; Z93.1 Gastrostomy status; B96.20 Unspecified Escherichia coli [E. coli] as the cause of diseases classified elsewhere; B96.4 Proteus (mirabilis) (morganii) as the cause of diseases classified elsewhere; I69.998 Other sequelae following unspecified cerebrovascular disease; I11.0 Hypertensive heart disease with heart failure; Z86.718 Personal history of other venous thrombosis and embolism
CPT/HCPCS: 36415; 70450; 71010; 80048; 80053; 80202; 81001; 82962; 83605; 83880; 84443; 84484; 85025; 85610; 85730; 87040; 87070; 87081; 87086; 87400; 90732; 93005; 94640; 94664; 96365; 96372; 96375; 97003; 97110; 97116; 97162; 97167; 97530; 97535; J1940; J0692; J3370; J7030; J7042

== ENCOUNTER 2017-05-07 00:43 | Inpatient (IN) | payer OTHER ==
[2017-05-07] VITALS (11 sets, daily range): BP systolic 95–126; BP diastolic 53–86; PULSE 79–98; RESP 16–20; TEMP 97.8; Ht 162.6 cm; Wt 62.0 kg
[~2017-05-07] VITALS: Ht 162.6 cm; Wt 62.0 kg
[~2017-05-07 00:43] MED LIST changes: +ACET325S GTB; +APIX5TAB GTB; +ATEN-51 GTB; +BISA10SU75 PR; +DEXT1DRO7 OP; +DIGO125T GTB; +LANS30CA GTB; +LEVA0.314 INHALATION; -METO-448; -METO100T PO; +MIDO5TAB19 GTB; -PENI-36; -PENI250S PO; -WARF1TAB47; -WARF2.5T PO; -WARF5TAB72 PO
--- NOTE | 2017-05-07 00:47 | ERD ---
ER Documentation Chief Complaint Chief Complaint Shortness of breath HPI The patient is a 61-year-old female, presenting to the ER because of shortness of breath, cough, chest congestion for the last 2 days. She was discharged from the hospital to 2 days ago for pneumonia, status post cefepime and Zyvox. The history is also obtained from the . She denies fever, neck pain, abdominal pain, vomiting, dysuria, diarrhea. She does not smoke nor drink Past medical history: Cephalopathy, hypertension, history of CVA, dysphagia, history of CHF, paroxysmal atrial fibrillation, GERD, urinary retention, history of rheumatic heart disease, Past surgical history G-tube, left leg surgery ROS All systems reviewed and are negative except as per history of present illness. Medications Home Meds Reported Medications Midodrine* (Midodrine*) 5 Mg Tablet, 10 MG GTB Q8H Y for PRN, TAB IF SBP<110 04/25/17 Levalbuterol (Xopenex) 0.31 Mg/3 Ml Vial.neb, 3 ML INHALATION Q6, EA 04/25/17 Lansoprazole* (Lansoprazole*) 30 Mg Capsule.dr, 30 MG GTB BID, CAP 04/25/17 Digoxin* (Digitek*) 125 Mcg Tablet, 0.125 MG GTB DAILY, TAB 04/25/17 Bisacodyl* (Bisacodyl*) 10 Mg Supp, 10 MG [place] DAILY Y for PRN, SUPP 04/25/17 Atenolol* (Atenolol*) 25 Mg Tablet, 12.5 MG GTB BID, #60 TAB HOLD IF SBP<110 OR HR<60 04/25/17 Dextran 70/Hypromellose/Pf (ARTIFICIAL TEARS DROPS) 1 Each Droperette, 2 EACH OP Q6H Y for PRN 04/25/17 Apixaban* (Eliquis*) 5 Mg Tablet, 5 MG GTB BID, TAB 04/25/17 Acetaminophen* (Acetaminophen* Susp) 325 Mg/10.15 Ml Solution, 650 MG GTB Q4H Y for PAIN OR TEMP ABOVE 38C, ML 04/25/17 Allergies Allergies: Coded Allergies: Pork/Porcine Containing Products (Unverified Allergy, Unknown, 04/25/17) cranberry (Unverified Allergy, Unknown, 04/25/17) PMhx/Soc History of Surgery: Yes (fasciotomy in L leg) Anesthesia Reaction: No Hx Neurological Disorder: Yes (CVA) Hx Respiratory Disorders: No Hx Cardiac Disorders: Yes (A fib) Hx Psychiatric Problems: No Hx Miscellaneous Medical Probl: Yes (pls see EMR) Hx Alcohol Use: No Hx Substance Use: No Hx Tobacco Use: No Physical Exam Vitals Vital Signs Date Time Temp Pulse Resp B/P Pulse Ox O2 Delivery O2 Flow Rate FiO2 05/07/17 02:21 97.5 106 26 119/88 100 Nasal Cannula 2.0 05/07/17 01:25 Nasal Cannula 2 05/07/17 00:54 Nasal Cannula 2.0 05/07/17 00:47 97.8 98 26 137/78 99 Physical Exam Const: No acute distress. Head: Atraumatic. Eyes: Normal Conjunctiva. ENT: Normal External Ears, Nose and Mouth. Neck: Full range of motion. No meningismus. Resp: Tachypneic, clear to auscultation anterior and lateral Cardio: Irregularly irregular tachycardic Abd: Soft, non distended, normal bowel sounds, non tender. Skin: No petechiae or rashes. Back: No midline or flank tenderness. Ext: No cyanosis, or edema. Neur: Awake and alert. Limited due to her condition Psych: Limited due to her condition Result Diagram: 05/07/1710905/07/17109 Results 24 hrs Laboratory Tests Test 05/07/17 01:10 05/07/17 01:39 White Blood Count 10.710^3/ul Red Blood Count 4.6610^6/ul Hemoglobin 12.5g/dl Hematocrit 39.4% Mean Corpuscular Volume 84.5fl Mean Corpuscular Hemoglobin 26.8pg Mean Corpuscular Hemoglobin Concent 31.7g/dl Red Cell Distribution Width 15.9% Platelet Count 23762^3/UL Mean Platelet Volume 12.5fl Neutrophils % 69.4% Lymphocytes % 17.2% Monocytes % 9.2% Eosinophils % 2.5% Basophils % 1.1% Nucleated Red Blood Cells % 0.0/100WBC Neutrophils # 7.410^3/ul Lymphocytes # 1.810^3/ul Monocytes # 1.010^3/ul Eosinophils # 0.310^3/ul Basophils # 0.110^3/ul Nucleated Red Blood Cells # 0.010^3/ul Prothrombin Time 13.1Sec Prothrombin Time Ratio 1.0 INR International Normalized Ratio 0.99 Activated Partial Thromboplast Time 26.7Sec Sodium Level 145mmol/L Potassium Level 4.0mmol/L Chloride Level 105mmol/L Carbon Dioxide Level 27mmol/L Anion Gap 17 Blood Urea Nitrogen 38mg/dl Creatinine 0.96mg/dl Glucose Level 108mg/dl Lactic Acid Level 1.6mmol/L Calcium Level 10.3mg/dl Total Bilirubin 0.3mg/dl Direct Bilirubin 0.00mg/dl Indirect Bilirubin 0.3mg/dl Aspartate Amino Transf (AST/SGOT) 42IU/L Alanine Aminotransferase (ALT/SGPT) 50IU/L Alkaline Phosphatase 126IU/L Troponin I < 0.012ng/ml Total Protein 8.6g/dl Albumin 4.4g/dl Globulin 4.20g/dl Albumin/Globulin Ratio 1.04 Bedside Urine pH (LAB) 7.0 Bedside Urine Protein (LAB) 2+ Bedside Urine Glucose (UA) Negative Bedside Urine Ketones (LAB) Negative Bedside Urine Blood Negative Bedside Urine Nitrite (LAB) Negative Bedside Urine Leukocyte Esterase (L 1+ Current Medications Medications (Trade) Dose Ordered Sig/Fabián Route PRN Reason Start Time Stop Time Status Last Admin Dose Admin Meropenem/Sodium Chloride 50 ml @ 100 mls/hr ONCE STAT IVPB 05/07/17 01:46 05/07/17 02:15 DC 05/07/17 01:57 Vancomycin HCl 250 ml @ 125 mls/hr ONCE IVPB 05/07/17 02:00 05/07/17 03:59 05/07/17 02:13 Sodium Chloride (NS) 1,710 ml @ 855 mls/hr BOLUS X1 ONCE IV 05/07/17 02:30 05/07/17 04:29 05/07/17 02:30 Procedures/[place] [id number] Radiology Main Line: [phone] DIAGNOSTIC IMAGING REPORT Patient: JAY RUIZ : 1955 Age: 61 Sex: F MR #: [id number] DOS: 05/07/17 0102 Ordering MD: TRAVIS SHARP MD Location: E/R Room/Bed: PROCEDURE: XR Chest. CLINICAL INDICATION: Sepsis. TECHNIQUE: Single frontal chest x-ray. COMPARISON: 04/26/2017 FINDINGS: Heart is enlarged.. There is mild pulmonary vascular congestion.. There is hypoventilation with bibasilar atelectasis. Left basilar infiltrate cannot be excluded.. There is no pleural effusion. There is no pneumothorax. The osseous structures are unremarkable. IMPRESSION: Cardiomegaly. Mild pulmonary pressure congestion. Hypoventilation with bibasilar elects. Cannot exclude a left basilar infiltrate. RPTAT: [facility] .Travis Wren MD, MD Date Time Electronically viewed and signed by .Travis Wren MD, MD on 05/07/2017 01:33 .K/ CC: TRAVIS SHARP MD EKG: Read by emergency physician Rate/Rhythm: Atrial fibrillation at 104 beats/min QRS, ST, T-waves: No ST elevation, no T inversion Impression: Abnormal EKG MEDICAL MAKING DECISION: The patient is a 61-year-old female, presenting with recurrent acute cystitis, acute dehydration and recent pneumonia. She was treated with normal saline 30 mL/kg IV, meropenem IV, vancomycin IV with good response. The differential diagnoses considered include but are not limited to The differential diagnoses considered include but are not limited to asthma, COPD, pneumonia, pulmonary embolus, pleural effusion, congestive heart failure, empyema, pyelonephritis. Departure Diagnosis: Primary Impression: UTI (urinary tract infection) Additional Impressions: Dehydration Pneumonia Condition: Stable Comments I discussed the findings with the patient. I discussed the patient with her physician Dr. Radha Levin who was made aware of the lab, the treatment, the patient condition. The patient is admitted to [facility] Disclaimer: Inadvertent spelling and grammatical errors are likely due to EHR/ dictation software use and do not reflect on the overall quality of patient care. Also, please note that the electronic time recorded on this note does not necessarily reflect the actual time of the patient encounter. TRAVIS SHARP MD May 07, 2017 00:46
--- NOTE | 2017-05-07 01:33 | RADRPT ---
PROCEDURE: XR Chest. CLINICAL INDICATION: Sepsis. TECHNIQUE: Single frontal chest x-ray. COMPARISON: 04/26/2017 FINDINGS: Heart is enlarged.. There is mild pulmonary vascular congestion.. There is hypoventilation with bib asilar atelectasis. Left basilar infiltrate cannot be excluded.. There is no pleural effusion. The re is no pneumothorax. The osseous structures are unremarkable. IMPRESSION: Cardiomegaly. Mild pulmonary pressure congestion. Hypoventilation with bibasilar elects. Cannot excl ude a left basilar infiltrate. RPTAT: [facility]K .Travis Wren MD, Date Time Electronically viewed and signed by .Travis Wren MD, on 05/07/2017 01:33 .K/
[2017-05-07 01:41] LABS: URINE BLOOD (Dip) POC Negative (NEGATIVE)
[2017-05-07] MEDS ORDERED: MEROPENEM 500MG/50 ML (PMX) 50 ML IVPB STA (01:46)
[2017-05-07 01:55] LABS: BASOPHIL # 0.1 10^3/ul (0.0-0.1); BASOPHILS % 1.1 % (0.0-2.0); EOSINOPHILS # 0.3 10^3/ul (0.0-0.5); EOSINOPHILS % 2.5 % (0.0-7.0); HEMATOCRIT 39.4 % (37.0-47.0); HEMOGLOBIN 12.5 g/dl (12.0-16.0); LYMPHOCYTES # 1.8 10^3/ul (0.8-2.9); LYMPHOCYTES % 17.2 % (15.0-51.0); MEAN CORPUSCULAR HEMOGLOBIN 26.8 pg (29.0-33.0); MEAN CORPUSCULAR HGB CONC 31.7 g/dl (32.0-37.0); MEAN CORPUSCULAR VOLUME 84.5 fl (82.0-101.0); MEAN PLATELET VOLUME 12.5 fl (7.4-10.4); MONOCYTES % 9.2 % (0.0-11.0); NEUTROPHIL # 7.4 10^3/ul (1.6-7.5); NEUTROPHILS % 69.4 % (39.0-77.0); PLATELET COUNT 339 10^3/UL (140-415); RED BLOOD COUNT 4.66 10^6/ul (4.20-5.40); RED CELL DISTRIBUTION WIDTH 15.9 % (11.5-14.5); WHITE BLOOD COUNT 10.7 10^3/ul (4.8-10.8)
[2017-05-07] MEDS ORDERED: VANCOMYCIN 1 GM (PMX) 250 ML IVPB SCH (02:00)
[2017-05-07 02:12] LABS: INR 0.99; PARTIAL THROMBOPLASTIN TIME 26.7 Sec (25.0-35.0); PROTIME 13.1 Sec (12.2-14.2)
[2017-05-07 02:14] LABS: ALANINE AMINOTRANSFERASE 50 IU/L (13-69); ALBUMIN 4.4 g/dl (3.3-4.9); ALBUMIN/GLOBULIN RATIO 1.04; ALKALINE PHOSPHATASE 126 IU/L (42-121); ANION GAP 17 (8-16); ASPARTATE AMINO TRANSFERASE 42 IU/L (15-46); BILIRUBIN,INDIRECT 0.3 mg/dl (0-1.1); BILIRUBIN,TOTAL 0.3 mg/dl (0.2-1.3); BLOOD UREA NITROGEN 38 mg/dl (7-20); CALCIUM 10.3 mg/dl (8.4-10.2); CARBON DIOXIDE 27 mmol/L (21-31); CHLORIDE 105 mmol/L (97-110); CREATININE 0.96 mg/dl (0.44-1.00); GLUCOSE 108 mg/dl (70-220); SODIUM 145 mmol/L (135-144); TOTAL PROTEIN 8.6 g/dl (6.1-8.1)
[2017-05-07 02:26] LABS: TROPONIN-I < 0.012 ng/ml (0.00-0.12)
[2017-05-07] MEDS ORDERED: SOD CHLORIDE 0.9% 1,710 ML IV ONE (02:30)
[2017-05-07 02:56] LABS: ADD UMIC YES; UR ASCORBIC ACID 40 mg/dL (NEGATIVE); UR BACTERIA FEW /HPF (NONE SEEN); UR BILIRUBIN (Dip) NEGATIVE (NEGATIVE); UR BLOOD (Dip) NEGATIVE (NEGATIVE); UR CLARITY SLIGHTLY CLOUDY (CLEAR); UR COLOR YELLOW (YELLOW); UR GLUCOSE (Dip) NEGATIVE (NEGATIVE); UR KETONES (Dip) NEGATIVE (NEGATIVE); UR LEUKOCYTE ESTERASE (Dip) 1+ Leu/ul (NEGATIVE); UR NITRITE (Dip) NEGATIVE (NEGATIVE); UR RBC 3 /HPF (0-5); UR SPECIFIC GRAVITY (Dip) 1.024 (1.003-1.030); UR SQUAMOUS EPITHELIAL CELL FEW /HPF (FEW); UR TOTAL PROTEIN (Dip) 2+ mg/dl (NEGATIVE); UR UROBILINOGEN (Dip) 1+ mg/dL (NEGATIVE)
[2017-05-07] MEDS ORDERED: FURO20TA3 PO (03:37)
[2017-05-07] MEDS ORDERED: FURO20TA3 GTB (03:37)
[2017-05-07] MEDS ORDERED: ATEN-51 GTB (03:37)
[2017-05-07] MEDS ORDERED: LANS30CA GTB (03:45)
[2017-05-07] MEDS ORDERED: LEVA0.3112 INHALATION (03:45)
[2017-05-07] MEDS ORDERED: L. A1CAP12 G-TUBE (03:54)
[2017-05-07] MEDS ORDERED: WARF2TAB GTB (04:00)
[2017-05-07] MEDS ORDERED: ONDANSETRON 4 MG INJ IV PRN (05:30)
[2017-05-07] MEDS ORDERED: VANCOMYCIN IV PER PHARMACY XX SCH (05:30)
[2017-05-07] MEDS: SOD CHLORIDE 0.9% 1,000 ML IV SCH ×2 (06:10→12:41)
[2017-05-07] MEDS ORDERED: LEVALBUTEROL (NEB) 0.63 MG/3 ML AMP HHN PRN (10:00)
--- NOTE | 2017-05-07 11:42 | HP ---
Date/Time of Note Date/Time of Note DATE: 05/07/17 TIME: 11:27 Assessment/Plan VTE Prophylaxis VTE Prophylaxis Intervention: LMWH Lines/Catheters IV Catheter Type (from [facility]): Peripheral IV Urinary Cath still in place: No Assessment/Plan Assessment/Plan - Recurrent sepsis secondary pneumonia and UTI. Will obtain a urine and blood cultures, continue broad-spectrum antibiotics. Dr. Bosch is asked to see patient in in ID consultation. - Atrial fibrillation with rapid ventricular response. Dr. Armenta is following and cardiology consultation. Continue Coumadin, atenolol. - Bilateral thalamic infarctions. - Dysphagia with G-tube. - Mitral stenosis - CHF - Hx Thrombosis of the bilateral cephalic veins. -History of VRE in urine Further recommendations based on clinical course. Plan of care discussed with Dr. Valdovinos. HPI/ROS Admit Date/Time Admit Date/Time May 07, 2017 at 02:40 Hx of Present Illness The patient is a 61-year-old female known to me from previous admission. Patient with history of bilateral thalamic infarcts with residual weakness, atrial fibrillation and atrial flutter history of DVT, hypertension, CHF, dysphagia with G-tube placement,, history of urinary retention. Patient was treated with cefepime and Zyvox for pneumonia and VRE urinary tract infection and was discharged to [facility] in stable condition upon completion of treatment. Patient developed shortness of breath, productive cough, and congestion over the past couple of days at [facility] and was brought to emergency room for evaluation. Patient was diagnosed with a pneumonia and urinary tract infection and was started on broad-spectrum antibiotics. Patient also noted to have atrial fibrillation with a rate above 100 and patient is admitted for further evaluation and management. Patient is awake with a neurological status is at her baseline, patient denies fever denies chest pain denies nausea vomiting diarrhea. PMH/Family/Social Past Medical History Medical History: deep vein thrombosis, urinary tract infection, other (CVA) Past Surgical History G-tube, left leg surgery Family History Significant Family History: no pertinent family hx Social History Alcohol Use: none Smoking Status: Never smoker Drug Use: none Exam/Review of Systems Vital Signs Vitals Vital Signs Date Time Temp Pulse Resp B/P Pulse Ox O2 Delivery O2 Flow Rate FiO2 05/07/17 10:23 98.0 89 20 115/59 98 05/07/17 08:15 3.0 05/07/17 06:07 Nasal Cannula Intake and Output 05/06/17 05/06/17 05/07/17 15:00 23:00 07:00 Intake Total 300 ml Balance 300 ml Exam Constitutional: alert, oriented Head: atraumatic, normocephalic Neck: supple Respiratory: diminished breath sounds, other (Rhonchi) Cardiovascular: irregular rhythm Gastrointestinal: non-tender, other (G-tube), soft Musculoskeletal: muscle weakness Extremities: normal pulses Neurological: nl mental status, other (Bilateral extremities weakness secondary to bilateral thalamic stroke) Skin: nl turgor Labs Result Diagram: 05/07/17 01105/07/17 011 Medications Medications Current Medications Sodium Chloride (NS) 1,000 ml @ 100 mls/hr Q10H IV Last administered on t 06:10; Admin Dose 100 MLS/HR; Start 05/07/17 at 05:30 Morphine Sulfate (morphine) 2 mg Q4H PRN IV PAIN; Start 05/07/17 at 05:30 Ondansetron HCl 4 mg 4 mg Q6H PRN IV NAUSEA AND/OR VOMITING; Start 05/07/17 at 05:30 Vancomycin HCl 750 mg/Dextrose/ Water 150 ml @ 75 mls/hr Q12H IVPB ; Start 05/07/17 at 14:00 Cefepime HCl (Maxipime 1gm/50 ml (Pmx)) 50 ml @ 100 mls/hr Q12 IVPB ; Start at 12:00 Enoxaparin Sodium (Lovenox) 60 mg Q12 SC ; Start 05/07/17 at 12:00 LAWRENCE PICKERING May 07, 2017 11:38
[2017-05-07] MEDS ORDERED: ENOXAPARIN 100 MG/ML SYG SC SCH (12:00)
[2017-05-07] MEDS: CEFEPIME 1GM/50 ML (PMX) 50 ML IVPB SCH ×2 (12:41→21:49)
[2017-05-07] MEDS: ENOXAPARIN 60 MG/0.6 ML SYG SC SCH ×2 (12:43→21:48)
[2017-05-07] MEDS: LEVALBUTEROL (NEB) 0.63 MG/3 ML AMP HHN SCH ×2 (14:00→21:11)
[2017-05-07] MEDS ORDERED: LEVALBUTEROL (NEB) 0.31 MG/3 ML AMP HHN SCH (14:00)
[2017-05-07] MEDS ORDERED: DIGOXIN 500 MCG INJ IV ONE (14:00)
[2017-05-07] MEDS: VANCOMYCIN 750 MG in DEXTROSE 5% 150 ML IVPB SCH (14:03)
--- NOTE | 2017-05-07 18:32 | CONS ---
DATE OF ADMISSION: 05/07/2017 DATE OF CONSULTATION: 05/07/2017 CARDIOLOGY CONSULTATION REASON FOR CONSULTATION: Atrial fibrillation and congestive heart failure, cardiomyopathy. REQUESTING PHYSICIAN: Kana Valdovinos MD. HISTORY OF PRESENT ILLNESS: Ms. Mcmullen is a 61-year-old female with a history of atrial fibrillatio n on systemic anticoagulation, congestive heart failure, systolic and diastolic, last known EF 7 of 45%, hypertension and mitral stenosis, anemia, leukocytosis, prior DVT, who initially presented with complaints of shortness of breath. Upon arrival, temperature 97.8, blood pressure 137/78, pul se 98, respiratory rate 26, satting 99%. The patient's labs revealed a white count 10.7, hemoglobin 12.5, platelet count 339. Sodium of 145, potassium 4.0, creatinine 0.9, BUN 38, AST 42, ALT 50. L actic acid of 1.6. INR 0.99. UA borderline. The patient underwent a chest x-ray revealing mild pu lmonary congestion, hypoinflation, possible left basilar infiltrate. The patient's electrocardiogra m revealed atrial fibrillation and atrial flutter at a rate of 104, normal axis, normal intervals, n onspecific ST-T abnormalities diffusely. The patient was subsequently admitted to the floor and sin ce admitted to floor has been monitored on telemetry revealing primarily rate controlled atrial fibr illation with some episodes of mild rapid ventricular response in low 100s. PAST MEDICAL HISTORY: As above in HPI. MEDICATIONS CURRENTLY IN HOSPITAL: 1. Coumadin 2 mg daily. 2. Lasix 20 mg daily. 3. Pravastatin 30 mg daily. 4. Atenolol 12.5 mg p.o. b.i.d. 5. Vancomycin. 6. Xopenex. 7. Cefepime. 8. Lovenox 60 mg subq q.12. 9. IV fluid hydration at 100 mL an hour. 10. Morphine p.r.n. 11. Zofran p.r.n. 12. Vancomycin. ALLERGIES: NO KNOWN DRUG ALLERGIES. SOCIAL HISTORY: No tobacco, ETOH or illicit drug use. FAMILY HISTORY: No history of sudden cardiac or early CAD. REVIEW OF SYSTEMS: As above in HPI. CONSTITUTIONAL: No fevers, chills. PULMONARY: Shortness of breath and possible pneumonia. CARDIOVASCULAR: Atrial fibrillation. GASTROINTESTINAL: No vomiting. GENITOURINARY: No hematuria. GASTROINTESTINAL: Additionally dysphasia. MUSCULOSKELETAL: Degenerative joint disease. PSYCHIATRIC: Anxiety. NEUROLOGIC: No documented history of CVA. PHYSICAL EXAMINATION VITAL SIGNS: Temperature of 97.9, blood pressure 130/56, pulse 90, respiratory rate 20, saturating 97%. GENERAL: The patient is alert, awake, in no acute distress. NECK: JVP approximately 9 cm water. CHEST: Fair air movement throughout with mildly decreased breath sounds at bases bilaterally. HEART: Irregularly irregular, I/ systolic murmur, nondisplaced PMI. ABDOMEN: Positive bowel sounds, soft, positive G-tube. EXTREMITIES: No pitting edema, 1+ pulses bilaterally, posterior tibial. LABORATORY DATA: Most recently from today, additional lactic acid of 2.1. IMAGING STUDIES: As above in HPI. No further imaging studies for my review at this time. ECG: As above in HPI. No further electrocardiograms for my review at this time. IMPRESSION: 1. Atrial fibrillation with some mild rapid ventricular response. 2. History of cardiomyopathy with decreased left ventricular ejection fraction, last study approxim ately 45% to 50% by echo 01/2017. 3. Congestive heart failure by chest x-ray, systolic and diastolic, acute on chronic. 4. Hypernatremia. 5. History of mitral stenosis. 6. History of thalamic infarctions, prior cerebrovascular accident. 7. Urinary tract infection. 8. Dysphagia, status post gastrostomy tube. RECOMMENDATIONS: 1. At this time, would maintain the patient on telemetry monitoring to follow rhythm and rate contr ol closely. 2. Would continue the patient's Lasix diuresis and would thus hold patient's IV fluid hydration at this time. 3. Continue the patient's Lovenox with transition to Coumadin for AFib. 4. Continue the patient's antibiotics and follow up all culture data. 5. Continue the patient's atenolol as tolerated for control of heart rate and blood pressure. We w ill give patient IV push dose of digoxin to improve overall heart rate control. 6. Follow up all culture data including respiratory cultures. Thank you for allowing me to take part in the care of this patient. I will continue to follow close ly with you. Further recommendations will be made as the patient progresses through her inpatient h ospital clinical course. Dictated By: MINOO MESA/RAMU Conf#: [id number] DID#: [id number] CC: KANA VALDOVINOS MD;*[facility]*
--- NOTE | 2017-05-07 20:24 | QN ---
Documentation Comment ID consult requested by LUNA Arechiga. Dr. Bosch to see pt in AM. Thank you. GIRISH SCHMITZ NP May 07, 2017 20:24
[2017-05-07] MEDS: ATENOLOL 25 MG TAB GTB SCH (21:47)
[2017-05-08] VITALS (11 sets, daily range): BP systolic 90–122; BP diastolic 52–65; PULSE 89–112; RESP 16–19
[2017-05-08] MEDS: SOD CHLORIDE 0.9% 1,000 ML IV SCH (01:30)
[2017-05-08] MEDS: VANCOMYCIN 750 MG in DEXTROSE 5% 150 ML IVPB SCH (02:00)
[2017-05-08] MEDS: LEVALBUTEROL (NEB) 0.63 MG/3 ML AMP HHN SCH ×4 (02:38→21:00)
[2017-05-08] MEDS: ATENOLOL 25 MG TAB GTB SCH ×2 (09:00→09:30)
[2017-05-08] MEDS: FUROSEMIDE 20 MG TAB GTB SCH (09:29)
[2017-05-08] MEDS: LANSOPRAZOLE 30 MG CAP GTB SCH (09:29)
[2017-05-08] MEDS: ENOXAPARIN 60 MG/0.6 ML SYG SC SCH ×2 (09:36→21:37)
[2017-05-08 09:42] LABS: BASOPHIL # 0.1 10^3/ul (0.0-0.1); EOSINOPHILS # 0.2 10^3/ul (0.0-0.5); EOSINOPHILS % 2.2 % (0.0-7.0); HEMATOCRIT 34.3 % (37.0-47.0); HEMOGLOBIN 10.3 g/dl (12.0-16.0); LYMPHOCYTES # 1.5 10^3/ul (0.8-2.9); LYMPHOCYTES % 15.9 % (15.0-51.0); MEAN CORPUSCULAR HEMOGLOBIN 26.1 pg (29.0-33.0); MEAN CORPUSCULAR VOLUME 87.1 fl (82.0-101.0); MEAN PLATELET VOLUME 12.1 fl (7.4-10.4); MONOCYTE # 1.1 10^3/ul (0.3-0.9); MONOCYTES % 11.9 % (0.0-11.0); NEUTROPHIL # 6.3 10^3/ul (1.6-7.5); NEUTROPHILS % 68.7 % (39.0-77.0); PLATELET COUNT 307 10^3/UL (140-415); RED BLOOD COUNT 3.94 10^6/ul (4.20-5.40); RED CELL DISTRIBUTION WIDTH 16.2 % (11.5-14.5); WHITE BLOOD COUNT 9.2 10^3/ul (4.8-10.8)
[2017-05-08] MEDS: CEFEPIME 1GM/50 ML (PMX) 50 ML IVPB SCH ×2 (09:43→21:36)
[2017-05-08 10:17] LABS: CALCIUM 9.3 mg/dl (8.4-10.2); CREATININE 0.93 mg/dl (0.44-1.00); POTASSIUM 3.9 mmol/L (3.5-5.1)
--- NOTE | 2017-05-08 13:11 | CONS ---
Date/Time of Note Date/Time of Note DATE: 05/08/17 TIME: 13:08 Assessment/Plan Assessment/Plan Chief Complaint/Hosp Course 1. Hcap 2. hx of recent admit for pna/ut 3 hx of vre uti, history of bilateral thalamic infarcts with residual weakness, atrial fibrillation and atrial flutter history of DVT, hypertension, CHF, dysphagia with G-tube placement,urinary retention. R: serial cxr sputum procalc cont. empiric abx will follow closely with you Problems: Consultation Date/Type/Reason Admit Date/Time May 07, 2017 at 02:40 Date of Consultation: May 08, 2017 Type of Consultation: id Reason for Consultation abx recs Referring Provider: ROXANA TORO MD Hx of Present Illness 61 yo female with pmh of cva, afib, aflutter, dvt, htn,chf, readmitted with sepsis and hcap. She has been placed on broad spectrum empiric abx. Constitutional: improved, no complaints Eyes: no complaints ENT: no complaints Respiratory: no complaints Cardiovascular: no complaints Gastrointestinal: no complaints Genitourinary: no complaints Past Medical History Medical History: deep vein thrombosis, urinary tract infection, other (CVA) Social History Alcohol Use: none Smoking Status: Never smoker Drug Use: none Exam/Review of Systems Vital Signs Vitals Vital Signs Date Time Temp Pulse Resp B/P Pulse Ox O2 Delivery O2 Flow Rate FiO2 05/08/17 12:05 90 05/08/17 11:30 98.1 19 103/65 100 05/08/17 09:07 21 05/08/17 08:00 3.0 05/08/17 02:38 Nasal Cannula Intake and Output 05/07/17 05/07/17 05/08/17 15:00 23:00 07:00 Intake Total 450 ml 0 ml 0 ml Balance 450 ml 0 ml 0 ml Exam Constitutional: alert, oriented, well developed Psych: nl mood/affect, no complaints Eyes: EOMI, PERRL, nl conjunctiva, nl lids, nl sclera Respiratory: crackles/rales, diminished breath sounds Gastrointestinal: soft Results Result Diagram: 05/08/17 0831 05/08/17 0831 Results 24 hrs Laboratory Tests Test 05/07/17 18:15 05/08/17 00:49 05/08/17 08:31 Troponin I < 0.012 < 0.012 White Blood Count 9.2 Red Blood Count 3.94 L Hemoglobin 10.3 L Hematocrit 34.3 L Mean Corpuscular Volume 87.1 Mean Corpuscular Hemoglobin 26.1 L Mean Corpuscular Hemoglobin Concent 30.0 L Red Cell Distribution Width 16.2 H Platelet Count 307 Mean Platelet Volume 12.1 H Neutrophils % 68.7 Lymphocytes % 15.9 Monocytes % 11.9 H Eosinophils % 2.2 Basophils % 1.0 Nucleated Red Blood Cells % 0.0 Neutrophils # 6.3 Lymphocytes # 1.5 Monocytes # 1.1 H Eosinophils # 0.2 Basophils # 0.1 Nucleated Red Blood Cells # 0.0 Sodium Level 148 H Potassium Level 3.9 Chloride Level 112 H Carbon Dioxide Level 23 Anion Gap 17 H Blood Urea Nitrogen 26 #H Creatinine 0.93 Glucose Level 89 Calcium Level 9.3 Medications Medications Current Medications Sodium Chloride (NS) 1,000 ml @ 100 mls/hr Q10H IV Last administered on 01:30; Admin Dose 100 MLS/HR; Start 05/07/17 at 05:30 Morphine Sulfate (morphine) 2 mg Q4H PRN IV PAIN; Start 05/07/17 at 05:30 Ondansetron HCl 4 mg 4 mg Q6H PRN IV NAUSEA AND/OR VOMITING; Start 05/07/17 at 05:30 Vancomycin HCl 750 mg/Dextrose/ Water 150 ml @ 75 mls/hr Q12H IVPB Last administered on 05/08/17 02:00; Admin Dose 75 MLS/HR; Start 05/07/17 at 14:00 Cefepime HCl (Maxipime 1gm/50 ml (Pmx)) 50 ml @ 100 mls/hr Q12 IVPB Last administered on 05/08/17 09:43; Admin Dose 100 MLS/HR; Start 05/07/17 at 12:00 Enoxaparin Sodium (Lovenox) 60 mg Q12 SC Last administered on 05/08/17 09:36; Admin Dose 60 MG; Start 05/07/17 at 12:00 Atenolol (Tenormin) 12.5 mg BID GTB Last administered on 05/08/17 09:30; Admin Dose 12.5 MG; Start 05/07/17 at 21:00 Furosemide (Lasix) 20 mg DAILY GTB Last administered on 05/08/17 09:29; Admin Dose 20 MG; Start 05/08/17 at 09:00 Lansoprazole (Prevacid) 30 mg DAILY GTB Last administered on 05/08/17 09:29; Admin Dose 30 MG; Start 05/08/17 at 09:00 Warfarin Sodium (Coumadin) 2 mg DAILY@17 GTB ; Start 05/08/17 at 17:00 SHELBY SHUKLA MD May 08, 2017 13:10
--- NOTE | 2017-05-08 13:48 | CONS ---
Date/Time of Note Date/Time of Note DATE: 05/08/17 TIME: 13:42 Assessment/Plan Assessment/Plan Additional Assessment/Plan 1. Atrial fibrillation 2. History of cardiomyopathy 3. Anemia 4. Hypernatremia. 5. Mitral stenosis. 6. Cerebrovascular accident. 7. Urinary tract infection. 8. Dysphagia, status post gastrostomy tube Atrial fibrillation RVR Continue Gentle diuresis with lasix Started on Metoprolol Started on digoxin Continue Coumadin Continue Antibiotics keep Mag > 2 and Poatssium > 4 Continue GI and DVT Prophylaxis . Consultation Date/Type/Reason Admit Date/Time May 07, 2017 at 02:40 Past Medical History Medical History: deep vein thrombosis, urinary tract infection, other (CVA) Social History Alcohol Use: none Smoking Status: Never smoker Drug Use: none Exam/Review of Systems Vital Signs Vitals Vital Signs Date Time Temp Pulse Resp B/P Pulse Ox O2 Delivery O2 Flow Rate FiO2 05/08/17 12:05 90 05/08/17 11:30 98.1 19 103/65 100 05/08/17 09:07 21 05/08/17 08:00 3.0 05/08/17 02:38 Nasal Cannula Intake and Output 05/07/17 05/07/17 05/08/17 15:00 23:00 07:00 Intake Total 450 ml 0 ml 0 ml Balance 450 ml 0 ml 0 ml Exam Constitutional: alert Head: atraumatic, normocephalic Respiratory: clear to auscultation Cardiovascular: irregular rhythm, other (No m/r/g) Gastrointestinal: nl liver, spleen, non-tender, soft Extremities: normal pulses Results Result Diagram: 05/08/1731 05/08/1731 Results 24 hrs Laboratory Tests Test 05/07/17 18:15 05/08/17 00:49 05/08/17 08:31 Troponin I < 0.012 < 0.012 White Blood Count 9.2 Red Blood Count 3.94 L Hemoglobin 10.3 L Hematocrit 34.3 L Mean Corpuscular Volume 87.1 Mean Corpuscular Hemoglobin 26.1 L Mean Corpuscular Hemoglobin Concent 30.0 L Red Cell Distribution Width 16.2 H Platelet Count 307 Mean Platelet Volume 12.1 H Neutrophils % 68.7 Lymphocytes % 15.9 Monocytes % 11.9 H Eosinophils % 2.2 Basophils % 1.0 Nucleated Red Blood Cells % 0.0 Neutrophils # 6.3 Lymphocytes # 1.5 Monocytes # 1.1 H Eosinophils # 0.2 Basophils # 0.1 Nucleated Red Blood Cells # 0.0 Sodium Level 148 H Potassium Level 3.9 Chloride Level 112 H Carbon Dioxide Level 23 Anion Gap 17 H Blood Urea Nitrogen 26 #H Creatinine 0.93 Glucose Level 89 Calcium Level 9.3 Medications Medications Current Medications Sodium Chloride (NS) 1,000 ml @ 100 mls/hr Q10H IV Last administered on 01:30; Admin Dose 100 MLS/HR; Start 05/07/17 at 05:30 Morphine Sulfate (morphine) 2 mg Q4H PRN IV PAIN; Start 05/07/17 at 05:30 Ondansetron HCl 4 mg 4 mg Q6H PRN IV NAUSEA AND/OR VOMITING; Start 05/07/17 at 05:30 Vancomycin HCl 750 mg/Dextrose/ Water 150 ml @ 75 mls/hr Q12H IVPB Last administered on 05/08/17 02:00; Admin Dose 75 MLS/HR; Start 05/07/17 at 14:00 Cefepime HCl (Maxipime 1gm/50 ml (Pmx)) 50 ml @ 100 mls/hr Q12 IVPB Last administered on 05/08/17 09:43; Admin Dose 100 MLS/HR; Start 05/07/17 at 12:00 Enoxaparin Sodium (Lovenox) 60 mg Q12 SC Last administered on 05/08/17 09:36; Admin Dose 60 MG; Start 05/07/17 at 12:00 Atenolol (Tenormin) 12.5 mg BID GTB Last administered on 05/08/17 09:30; Admin Dose 12.5 MG; Start 05/07/17 at 21:00 Furosemide (Lasix) 20 mg DAILY GTB Last administered on 05/08/17 09:29; Admin Dose 20 MG; Start 05/08/17 at 09:00 Lansoprazole (Prevacid) 30 mg DAILY GTB Last administered on 05/08/17 09:29; Admin Dose 30 MG; Start 05/08/17 at 09:00 Warfarin Sodium (Coumadin) 2 mg DAILY@17 GTB ; Start 05/08/17 at 17:00 JOSEFA WEINSTEIN M.D. May 08, 2017 13:48
[2017-05-08] MEDS: METOPROLOL 100 MG TAB PO SCH ×2 (14:00→23:38)
--- NOTE | 2017-05-08 16:31 | PN ---
Date/Time of Note Date/Time of Note DATE: 05/08/17 TIME: 16:20 Assessment/Plan VTE Prophylaxis VTE Prophylaxis Intervention: other Lines/Catheters IV Catheter Type (from [facility]): Peripheral IV Urinary Cath still in place: No Assessment/Plan Assessment/Plan - Recurrent sepsis secondary pneumonia and UTI. Will obtain a urine and blood cultures, continue broad-spectrum antibiotics. Dr. Bosch is asked to see patient in in ID consultation. - Atrial fibrillation with rapid ventricular response. Dr. Armenta is following and cardiology consultation. Continue Coumadin, atenolol. - Bilateral thalamic infarctions. - Dysphagia with G-tube. - Mitral stenosis - CHF - Hx Thrombosis of the bilateral cephalic veins. -History of VRE in urine Further recommendations based on clinical course. Plan of care discussed with Dr. Valdovinos. Subjective 24 Hr Interval Summary Free Text/Dictation afebrile, no s//s of aspiration- staff. Constitutional: requiring O2 Respiratory: no complaints Cardiovascular: no complaints Gastrointestinal: no complaints Genitourinary: no complaints Musculoskeletal: no complaints Exam/Review of Systems Vital Signs Vitals Vital Signs Date Time Temp Pulse Resp B/P Pulse Ox O2 Delivery O2 Flow Rate FiO2 05/08/17 15:41 98.1 85 19 109/61 98 05/08/17 15:19 Nasal Cannula 2.0 05/08/17 09:07 21 Intake and Output 05/07/17 05/07/17 05/08/17 15:00 23:00 07:00 Intake Total 450 ml 0 ml 0 ml Balance 450 ml 0 ml 0 ml Exam Constitutional: alert, well developed Respiratory: diminished breath sounds, normal air movement Cardiovascular: nl pulses, other Gastrointestinal: non-tender, other, soft Musculoskeletal: nl extremities to inspection Extremities: normal pulses Neurological: other Results Result Diagram: 05/08/1731 05/08/1731 Results 24 hrs Laboratory Tests Test 05/07/17 18:15 05/08/17 00:49 05/08/17 08:31 05/08/17 14:04 Troponin I < 0.012 < 0.012 White Blood Count 9.2 Red Blood Count 3.94 L Hemoglobin 10.3 L Hematocrit 34.3 L Mean Corpuscular Volume 87.1 Mean Corpuscular Hemoglobin 26.1 L Mean Corpuscular Hemoglobin Concent 30.0 L Red Cell Distribution Width 16.2 H Platelet Count 307 Mean Platelet Volume 12.1 H Neutrophils % 68.7 Lymphocytes % 15.9 Monocytes % 11.9 H Eosinophils % 2.2 Basophils % 1.0 Nucleated Red Blood Cells % 0.0 Neutrophils # 6.3 Lymphocytes # 1.5 Monocytes # 1.1 H Eosinophils # 0.2 Basophils # 0.1 Nucleated Red Blood Cells # 0.0 Sodium Level 148 H Potassium Level 3.9 Chloride Level 112 H Carbon Dioxide Level 23 Anion Gap 17 H Blood Urea Nitrogen 26 #H Creatinine 0.93 Glucose Level 89 Calcium Level 9.3 Vancomycin Level Trough 20.4 *H Medications Medications Current Medications Sodium Chloride (NS) 1,000 ml @ 100 mls/hr Q10H IV Last administered on 01:30; Admin Dose 100 MLS/HR; Start 05/07/17 at 05:30 Morphine Sulfate (morphine) 2 mg Q4H PRN IV PAIN; Start 05/07/17 at 05:30 Ondansetron HCl 4 mg 4 mg Q6H PRN IV NAUSEA AND/OR VOMITING; Start 05/07/17 at 05:30 Cefepime HCl (Maxipime 1gm/50 ml (Pmx)) 50 ml @ 100 mls/hr Q12 IVPB Last administered on 05/08/17 09:43; Admin Dose 100 MLS/HR; Start 05/07/17 at 12:00 Enoxaparin Sodium (Lovenox) 60 mg Q12 SC Last administered on 05/08/17 09:36; Admin Dose 60 MG; Start 05/07/17 at 12:00 Furosemide (Lasix) 20 mg DAILY GTB Last administered on 05/08/17 09:29; Admin Dose 20 MG; Start 05/08/17 at 09:00 Lansoprazole (Prevacid) 30 mg DAILY GTB Last administered on 05/08/17 09:29; Admin Dose 30 MG; Start 05/08/17 at 09:00 Warfarin Sodium (Coumadin) 2 mg DAILY@17 GTB ; Start 05/08/17 at 17:00 Metoprolol Tartrate (Lopressor) 100 mg BID PO ; Start 05/08/17 at 14:00 Digoxin 0.125 mg 0.125 mg Q2D@13 NGT ; Start 05/10/17 at 13:00 Vancomycin HCl (Vancocin) 100 ml @ 100 mls/hr Q12H IVPB ; Start 05/08/17 at 18: 00 ALEXIS NAJERA May 08, 2017 16:31
[2017-05-08] MEDS: DEXTROSE 5%-0.45% NACL 1,000 ML IV SCH (16:55)
[2017-05-08] MEDS: VANCOMYCIN 500MG/NS (PMX) 100 ML IVPB SCH (16:57)
[2017-05-08] MEDS: WARFARIN 2 MG TAB GTB SCH (17:00)
[2017-05-08] MEDS ORDERED: GUAIFENESIN LA 600 MG TABSR PO SCH (21:00)
[2017-05-09] VITALS (15 sets, daily range): BP systolic 90–126; BP diastolic 52–78; PULSE 78–154; RESP 17–19
[2017-05-09] MEDS: LEVALBUTEROL (NEB) 0.63 MG/3 ML AMP HHN SCH ×2 (01:23→19:46)
[2017-05-09] MEDS: DEXTROSE 5%-0.45% NACL 1,000 ML IV SCH ×2 (05:40→08:22)
[2017-05-09] MEDS: VANCOMYCIN 500MG/NS (PMX) 100 ML IVPB SCH ×2 (06:36→18:33)
[2017-05-09 07:25] LABS: BASOPHIL # 0.1 10^3/ul (0.0-0.1); BASOPHILS % 0.6 % (0.0-2.0); EOSINOPHILS # 0.2 10^3/ul (0.0-0.5); EOSINOPHILS % 2.3 % (0.0-7.0); HEMATOCRIT 32.6 % (37.0-47.0); LYMPHOCYTES # 1.2 10^3/ul (0.8-2.9); LYMPHOCYTES % 13.9 % (15.0-51.0); MEAN CORPUSCULAR HEMOGLOBIN 26.5 pg (29.0-33.0); MEAN CORPUSCULAR HGB CONC 30.7 g/dl (32.0-37.0); MEAN CORPUSCULAR VOLUME 86.2 fl (82.0-101.0); MEAN PLATELET VOLUME 12.3 fl (7.4-10.4); MONOCYTE # 0.9 10^3/ul (0.3-0.9); MONOCYTES % 10.6 % (0.0-11.0); NEUTROPHIL # 6.1 10^3/ul (1.6-7.5); NEUTROPHILS % 72.1 % (39.0-77.0); PLATELET COUNT 290 10^3/UL (140-415); RED BLOOD COUNT 3.78 10^6/ul (4.20-5.40); RED CELL DISTRIBUTION WIDTH 16.1 % (11.5-14.5); WHITE BLOOD COUNT 8.4 10^3/ul (4.8-10.8)
[2017-05-09 07:42] LABS: CALCIUM 8.8 mg/dl (8.4-10.2); CREATININE 0.84 mg/dl (0.44-1.00); POTASSIUM 3.6 mmol/L (3.5-5.1)
[2017-05-09] MEDS: FUROSEMIDE 20 MG TAB GTB SCH (08:15)
[2017-05-09] MEDS: LANSOPRAZOLE 30 MG CAP GTB SCH (08:16)
[2017-05-09] MEDS: ENOXAPARIN 60 MG/0.6 ML SYG SC SCH ×2 (08:18→21:04)
[2017-05-09] MEDS: CEFEPIME 1GM/50 ML (PMX) 50 ML IVPB SCH ×2 (08:19→22:38)
[2017-05-09] MEDS: METOPROLOL 100 MG TAB GTB SCH ×2 (09:45→21:15)
--- NOTE | 2017-05-09 12:51 | CONS ---
Date/Time of Note Date/Time of Note DATE: 05/09/17 TIME: 12:48 Assessment/Plan Assessment/Plan Additional Assessment/Plan 1. Atrial fibrillation 2. History of cardiomyopathy 3. Anemia 4. Hypernatremia. 5. Mitral stenosis. 6. Cerebrovascular accident. 7. Urinary tract infection. 8. Dysphagia, status post gastrostomy tube Atrial fibrillation now rate controlled Continue Gentle diuresis with lasix Continue Metoprolol Continue digoxin Continue Coumadin Continue Antibiotics keep Mag > 2 and Potassium > 4 Continue GI and DVT Prophylaxis Consultation Date/Type/Reason Admit Date/Time May 07, 2017 at 02:40 Initial Consult Date 05/08/17 Type of Consultation: id Referring Provider: ROXANA TORO MD Exam/Review of Systems Vital Signs Vitals Vital Signs Date Time Temp Pulse Resp B/P Pulse Ox O2 Delivery O2 Flow Rate FiO2 05/09/17 12:19 78 05/09/17 11:44 97.8 18 105/60 99 05/09/17 08:12 3.0 05/09/17 08:11 Nasal Cannula 05/09/17 01:35 27 Intake and Output 05/08/17 05/08/17 05/09/17 15:00 23:00 07:00 Intake Total 50 ml 730 ml 640 ml Balance 50 ml 730 ml 640 ml Exam Constitutional: alert Head: atraumatic, normocephalic Respiratory: clear to auscultation Cardiovascular: irregular rhythm Gastrointestinal: nl liver, spleen, non-tender, soft Extremities: normal pulses Results Result Diagram: 05/09/17 0601 05/09/17 0601 Results 24 hrs Laboratory Tests Test 05/08/17 14:04 05/09/17 06:01 Vancomycin Level Trough 20.4 *H White Blood Count 8.4 Red Blood Count 3.78 L Hemoglobin 10.0 L Hematocrit 32.6 L Mean Corpuscular Volume 86.2 Mean Corpuscular Hemoglobin 26.5 L Mean Corpuscular Hemoglobin Concent 30.7 L Red Cell Distribution Width 16.1 H Platelet Count 290 Mean Platelet Volume 12.3 H Neutrophils % 72.1 Lymphocytes % 13.9 L Monocytes % 10.6 Eosinophils % 2.3 Basophils % 0.6 Nucleated Red Blood Cells % 0.0 Neutrophils # 6.1 Lymphocytes # 1.2 Monocytes # 0.9 Eosinophils # 0.2 Basophils # 0.1 Nucleated Red Blood Cells # 0.0 Sodium Level 144 Potassium Level 3.6 Chloride Level 108 Carbon Dioxide Level 25 Anion Gap 15 Blood Urea Nitrogen 22 H Creatinine 0.84 Glucose Level 139 # Calcium Level 8.8 Medications Medications Current Medications Morphine Sulfate (morphine) 2 mg Q4H PRN IV PAIN; Start 05/07/17 at 05:30 Ondansetron HCl 4 mg 4 mg Q6H PRN IV NAUSEA AND/OR VOMITING; Start 05/07/17 at 05:30 Cefepime HCl (Maxipime 1gm/50 ml (Pmx)) 50 ml @ 100 mls/hr Q12 IVPB Last administered on 05/09/17 08:19; Admin Dose 100 MLS/HR; Start 05/07/17 at 12:00 Enoxaparin Sodium (Lovenox) 60 mg Q12 SC Last administered on 05/09/17 08:18; Admin Dose 60 MG; Start 05/07/17 at 12:00 Furosemide (Lasix) 20 mg DAILY GTB Last administered on 05/09/17 08:15; Admin Dose 20 MG; Start 05/08/17 at 09:00 Lansoprazole (Prevacid) 30 mg DAILY GTB Last administered on 05/09/17 08:16; Admin Dose 30 MG; Start 05/08/17 at 09:00 Warfarin Sodium (Coumadin) 2 mg DAILY@17 GTB Last administered on 05/08/17 17: 00; Admin Dose 2 MG; Start 05/08/17 at 17:00 Digoxin 0.125 mg 0.125 mg Q2D@13 NGT ; Start 05/10/17 at 13:00 Vancomycin HCl 100 ml @ 100 mls/hr Q12H IVPB Last administered on 05/09/17 06 :36; Admin Dose 100 MLS/HR; Start 05/08/17 at 18:00 Dextrose/Sodium Chloride (D5-1/2ns) 1,000 ml @ 80 mls/hr [id number] IV Last administered on 05/09/17 08:22; Admin Dose 80 MLS/HR; Start 05/08/17 at 16:30 Metoprolol Tartrate (Lopressor) 100 mg BID GTB Last administered on 05/09/17 09:45; Admin Dose 100 MG; Start 05/09/17 at 09:00 Guaifenesin (Robitussin Liquid Cup) 15 mg QID PRN GTB COUGH; Start 05/09/17 at 09:00 JOSEFA WEINSTEIN M.D. May 09, 2017 12:51
[2017-05-09] MEDS ORDERED: POTASSIUM CHLORIDE 250 ML IVPB ONE (13:00)
--- NOTE | 2017-05-09 14:06 | CONS ---
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 Transthoracic echo on 01/16/2017, 03/25/2017 did not reveal valvular vegetation but difficult to assess MV. Pt was supposed to take an empiric course of endocarditis through 04/23/2017; Pt's said that she had completed antibiotics on 04/24/2017 - H/o rheumatic heart disease (probable rheumatic, severe MS on transthoracic echo) - H/o recurrent UTI/CA-UTI (E. coli 03/21/17, proteus 02/11/17, C. glabrata 02/09/17 ) - H/o diffuse moderate degree of gastritis s/p EGD 02/15/2017 - H/o gastritis due to H. 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 CSF from 01/19/2017: WBC=3, RBC=0, glu 53, pro= 61, CSF ([place] serology negative, HSV negative, cocci CF negative, encephalitis meningitis panel could not be done due to a lack of sample), serum ([place] PCR negative, crypto antigen negative, cocci CF negative, histo CF negative). - H/o MARIELA - H/o LLE ischemia s/p thrombolysis and subsequent open thrombectomy and fasciotomy at [facility] 09/2015 - H/o thrombus on DEBBIE per records from [facility] Recommendations: - continue empiric vancomycin and cefepime - f/u sputum cx, influenza screen, procalc (05/08 in process) - serial CXR Management d/w Charge Nurse Juan J and Dr. Bosch Problems: Consultation Date/Type/Reason Admit Date/Time May 07, 2017 at 02:40 Initial Consult Date 05/08/17 Type of Consultation: Infectious Disease Referring Provider: ROXANA TORO MD 24 HR Interval Summary Free Text/Dictation C/o mild SOB. Denies cough, pain, n/v/d, dysuria. Exam/Review of Systems Vital Signs Vitals Vital Signs Date Time Temp Pulse Resp B/P Pulse Ox O2 Delivery O2 Flow Rate FiO2 05/09/17 12:19 78 05/09/17 11:44 97.8 18 105/60 99 05/09/17 08:12 3.0 05/09/17 08:11 Nasal Cannula 05/09/17 01:35 27 Intake and Output 05/08/17 05/08/17 05/09/17 15:00 23:00 07:00 Intake Total 50 ml 730 ml 640 ml Balance 50 ml 730 ml 640 ml Exam Constitutional: alert, oriented, well developed, other (using supplement O2 via NC at 3L) Head: atraumatic, normocephalic Eyes: nl sclera, other (ptosis of L eye -unchanged) Neck: supple Respiratory: diminished breath sounds Cardiovascular: irregular rhythm Gastrointestinal: soft, non-tender, other (GT intact Genitourinary - Female: other (incontinent of urine that soiled gown and linen - nursing notified) Musculoskeletal: nl extremities to inspection Extremities: normal pulses, No edema Neurological: other (Mauritanian speaking) Skin: nl turgor Results Result Diagram: 05/09/17 0601 05/09/17 0601 Results 24 hrs Laboratory Tests Test 05/09/17 06:01 05/09/17 13:24 White Blood Count 8.4 Red Blood Count 3.78 L Hemoglobin 10.0 L Hematocrit 32.6 L Mean Corpuscular Volume 86.2 Mean Corpuscular Hemoglobin 26.5 L Mean Corpuscular Hemoglobin Concent 30.7 L Red Cell Distribution Width 16.1 H Platelet Count 290 Mean Platelet Volume 12.3 H Neutrophils % 72.1 Lymphocytes % 13.9 L Monocytes % 10.6 Eosinophils % 2.3 Basophils % 0.6 Nucleated Red Blood Cells % 0.0 Neutrophils # 6.1 Lymphocytes # 1.2 Monocytes # 0.9 Eosinophils # 0.2 Basophils # 0.1 Nucleated Red Blood Cells # 0.0 Sodium Level 144 Potassium Level 3.6 Chloride Level 108 Carbon Dioxide Level 25 Anion Gap 15 Blood Urea Nitrogen 22 H Creatinine 0.84 Glucose Level 139 # Calcium Level 8.8 Magnesium Level 1.7 Medications Medications Current Medications Morphine Sulfate (morphine) 2 mg Q4H PRN IV PAIN; Start 05/07/17 at 05:30 Ondansetron HCl 4 mg 4 mg Q6H PRN IV NAUSEA AND/OR VOMITING; Start 05/07/17 at 05:30 Cefepime HCl (Maxipime 1gm/50 ml (Pmx)) 50 ml @ 100 mls/hr Q12 IVPB Last administered on 05/09/17 08:19; Admin Dose 100 MLS/HR; Start 05/07/17 at 12:00 Enoxaparin Sodium (Lovenox) 60 mg Q12 SC Last administered on 05/09/17 08:18; Admin Dose 60 MG; Start 05/07/17 at 12:00 Furosemide (Lasix) 20 mg DAILY GTB Last administered on 05/09/17 08:15; Admin Dose 20 MG; Start 05/08/17 at 09:00 Lansoprazole (Prevacid) 30 mg DAILY GTB Last administered on 05/09/17 08:16; Admin Dose 30 MG; Start 05/08/17 at 09:00 Warfarin Sodium (Coumadin) 2 mg DAILY@17 GTB Last administered on 05/08/17 17: 00; Admin Dose 2 MG; Start 05/08/17 at 17:00 Digoxin 0.125 mg 0.125 mg Q2D@13 NGT ; Start 05/10/17 at 13:00 Vancomycin HCl 100 ml @ 100 mls/hr Q12H IVPB Last administered on 05/09/17 06 :36; Admin Dose 100 MLS/HR; Start 05/08/17 at 18:00 Dextrose/Sodium Chloride (D5-1/2ns) 1,000 ml @ 80 mls/hr [id number] IV Last administered on 05/09/17 08:22; Admin Dose 80 MLS/HR; Start 05/08/17 at 16:30 Metoprolol Tartrate (Lopressor) 100 mg BID GTB Last administered on 11/5/17at 09:45; Admin Dose 100 MG; Start 05/09/17 at 09:00 Guaifenesin 15 mg 15 mg QID PRN GTB COUGH; Start 05/09/17 at 09:00 Potassium Chloride (KCl 40 MEQ/250 ML NS) 250 ml @ 62.5 mls/hr ONCE ONCE IVPB ; Start 05/09/17 at 13:00; Stop 05/09/17 at 16:59 Procedures Procedures CXR 05/07/2017: Cardiomegaly. Mild pulmonary pressure congestion. Hypoventilation with bibasilar elects. Cannot exclude a left basilar infiltrate. GIRISH SCHMITZ NP May 09, 2017 14:06 Hypoventilation with bibasilar elects. Cannot exclude a left basilar infiltrate. GIRISH SCHMITZ NP May 09, 2017 14:06 Procedures Procedures CXR 05/07/2017: Cardiomegaly. Mild pulmonary pressure congestion. Hypoventilation with bibasilar elects. Cannot exclude a left basilar infiltrate. GIRISH SCHMITZ NP May 09, 2017 14:06
--- NOTE | 2017-05-09 14:54 | PN ---
Date/Time of Note Date/Time of Note DATE: 05/09/17 TIME: 14:53 Assessment/Plan VTE Prophylaxis VTE Prophylaxis Intervention: other Lines/Catheters IV Catheter Type (from [facility]): Peripheral IV Urinary Cath still in place: No Assessment/Plan Assessment/Plan - Recurrent sepsis secondary pneumonia and UTI. Will obtain a urine and blood cultures, continue broad-spectrum antibiotics. Dr. Bosch is asked to see patient in in ID consultation. - Atrial fibrillation with rapid ventricular response. Dr. Armenta is following and cardiology consultation. Continue Coumadin, atenolol. - Bilateral thalamic infarctions. - Dysphagia with G-tube. - Mitral stenosis - CHF - Hx Thrombosis of the bilateral cephalic veins. -History of VRE in urine Further recommendations based on clinical course. Plan of care discussed with Dr. Valdovinos. Subjective 24 Hr Interval Summary Free Text/Dictation afebrile, seems comfortable, no new complaints reported- dw staff Constitutional: requiring O2 Respiratory: no complaints Cardiovascular: no complaints Exam/Review of Systems Vital Signs Vitals Vital Signs Date Time Temp Pulse Resp B/P Pulse Ox O2 Delivery O2 Flow Rate FiO2 05/09/17 14:03 99 3.0 05/09/17 14:02 86 20 Nasal Cannula 05/09/17 11:44 97.8 105/60 05/09/17 01:35 27 Intake and Output 05/08/17 05/08/17 05/09/17 15:00 23:00 07:00 Intake Total 50 ml 730 ml 640 ml Balance 50 ml 730 ml 640 ml Exam Constitutional: alert, well developed Psych: nl mood/affect Respiratory: clear to auscultation, diminished breath sounds Cardiovascular: other (s1s2) Gastrointestinal: soft Musculoskeletal: nl extremities to inspection Extremities: normal pulses Neurological: other Results Result Diagram: 05/09/17 0601 05/09/17 0601 Results 24 hrs Laboratory Tests Test 05/09/17 06:01 05/09/17 13:24 White Blood Count 8.4 Red Blood Count 3.78 L Hemoglobin 10.0 L Hematocrit 32.6 L Mean Corpuscular Volume 86.2 Mean Corpuscular Hemoglobin 26.5 L Mean Corpuscular Hemoglobin Concent 30.7 L Red Cell Distribution Width 16.1 H Platelet Count 290 Mean Platelet Volume 12.3 H Neutrophils % 72.1 Lymphocytes % 13.9 L Monocytes % 10.6 Eosinophils % 2.3 Basophils % 0.6 Nucleated Red Blood Cells % 0.0 Neutrophils # 6.1 Lymphocytes # 1.2 Monocytes # 0.9 Eosinophils # 0.2 Basophils # 0.1 Nucleated Red Blood Cells # 0.0 Sodium Level 144 Potassium Level 3.6 Chloride Level 108 Carbon Dioxide Level 25 Anion Gap 15 Blood Urea Nitrogen 22 H Creatinine 0.84 Glucose Level 139 # Calcium Level 8.8 Magnesium Level 1.7 Medications Medications Current Medications Morphine Sulfate (morphine) 2 mg Q4H PRN IV PAIN; Start 05/07/17 at 05:30 Ondansetron HCl 4 mg 4 mg Q6H PRN IV NAUSEA AND/OR VOMITING; Start 05/07/17 at 05:30 Cefepime HCl (Maxipime 1gm/50 ml (Pmx)) 50 ml @ 100 mls/hr Q12 IVPB Last administered on 05/09/17 08:19; Admin Dose 100 MLS/HR; Start 05/07/17 at 12:00 Enoxaparin Sodium (Lovenox) 60 mg Q12 SC Last administered on 05/09/17 08:18; Admin Dose 60 MG; Start 05/07/17 at 12:00 Furosemide (Lasix) 20 mg DAILY GTB Last administered on 05/09/17 08:15; Admin Dose 20 MG; Start 05/08/17 at 09:00 Lansoprazole (Prevacid) 30 mg DAILY GTB Last administered on 05/09/17 08:16; Admin Dose 30 MG; Start 05/08/17 at 09:00 Warfarin Sodium (Coumadin) 2 mg DAILY@17 GTB Last administered on 05/08/17 17: 00; Admin Dose 2 MG; Start 05/08/17 at 17:00 Digoxin 0.125 mg 0.125 mg Q2D@13 NGT ; Start 05/10/17 at 13:00 Vancomycin HCl 100 ml @ 100 mls/hr Q12H IVPB Last administered on 05/09/17 06 :36; Admin Dose 100 MLS/HR; Start 05/08/17 at 18:00 Dextrose/Sodium Chloride (D5-1/2ns) 1,000 ml @ 80 mls/hr [id number] IV Last administered on 05/09/17 08:22; Admin Dose 80 MLS/HR; Start 05/08/17 at 16:30 Metoprolol Tartrate (Lopressor) 100 mg BID GTB Last administered on 05/09/17 09:45; Admin Dose 100 MG; Start 05/09/17 at 09:00 Guaifenesin 15 mg 15 mg QID PRN GTB COUGH; Start 05/09/17 at 09:00 Potassium Chloride (KCl 40 MEQ/250 ML NS) 250 ml @ 62.5 mls/hr ONCE ONCE IVPB Last administered on 05/09/17 14:45; Admin Dose 62.5 MLS/HR; Start 05/09/17 at 13:00; Stop 05/09/17 at 16:59 Miscellaneous Information (*Rx Drug Level Order Reminder*) VANCOMYCIN TROUGH AT 0500 ONCE ONCE XX ; Start 05/10/17 at 05:00; Stop 05/10/17 at 05:01 ALEXIS NAJERA May 09, 2017 14:54
[2017-05-09] MEDS: WARFARIN 2 MG TAB GTB SCH (17:37)
[2017-05-09] MEDS: morphine 2 MG INJ IV PRN (21:05)
[2017-05-10] VITALS (12 sets, daily range): BP systolic 88–106; BP diastolic 55–71; PULSE 70–140; RESP 17–22
[2017-05-10] MEDS: LEVALBUTEROL (NEB) 0.63 MG/3 ML AMP HHN SCH ×4 (02:26→20:00)
[2017-05-10] MEDS: DEXTROSE 5%-0.45% NACL 1,000 ML IV SCH ×2 (05:05→19:30)
[2017-05-10] MEDS: morphine 2 MG INJ IV PRN (05:05)
[2017-05-10 06:47] LABS: INR 1.05; PROTIME 13.7 Sec (12.2-14.2); PT RATIO 1.1
[2017-05-10 06:56] LABS: CREATININE 0.82 mg/dl (0.44-1.00)
[2017-05-10] MEDS: FUROSEMIDE 20 MG TAB GTB SCH (08:57)
[2017-05-10] MEDS: LANSOPRAZOLE 30 MG CAP GTB SCH (08:57)
[2017-05-10] MEDS: CEFEPIME 1GM/50 ML (PMX) 50 ML IVPB SCH ×2 (08:57→22:12)
[2017-05-10] MEDS: METOPROLOL 100 MG TAB GTB SCH (08:58)
[2017-05-10] MEDS ORDERED: VANCOMYCIN 500MG/NS (PMX) 100 ML IVPB SCH (09:00)
[2017-05-10] MEDS: ENOXAPARIN 60 MG/0.6 ML SYG SC SCH ×2 (09:12→21:37)
[2017-05-10] MEDS ORDERED: LIDOCAINE 1% (MPF) 5 ML VIAL SC ONE (11:00)
[2017-05-10] MEDS ORDERED: DIGOXIN 0.125 MG TAB NGT SCH (13:00)
--- NOTE | 2017-05-10 13:25 | CONS ---
Date/Time of Note Date/Time of Note DATE: 05/10/17 TIME: 13:20 Assessment/Plan Assessment/Plan Chief Complaint/Hosp Course IMPRESSION: 1. Atrial fibrillation with some mild rapid ventricular response-still at this time. 2. History of cardiomyopathy with decreased left ventricular ejection fraction , last study approximately 45% to 50% by echo 01/2017. 3. Congestive heart failure by chest x-ray, systolic and diastolic, acute on chronic. 4. Hypernatremia-improved 5. History of mitral stenosis. 6. History of thalamic infarctions, prior cerebrovascular accident. 7. Urinary tract infection. 8. Dysphagia, status post gastrostomy tube. Recc: -Tele -serial ecg's -CHange metoprolol to atenolol for possible increased efficacy -Continue lovenox to comadin and increase dose -Continue PO lasix and follow volume status closely -Continue abx's and f/u cx data Problems: Consultation Date/Type/Reason Admit Date/Time May 07, 2017 at 02:40 Initial Consult Date 05/08/17 Type of Consultation: cardiology Reason for Consultation AF Referring Provider: ROXANA TORO MD Exam/Review of Systems Vital Signs Vitals Vital Signs Date Time Temp Pulse Resp B/P Pulse Ox O2 Delivery O2 Flow Rate FiO2 05/10/17 12:16 118 05/10/17 11:42 98.8 18 106/55 97 05/10/17 02:55 2.0 05/10/17 02:28 Nasal Cannula 05/09/17 01:35 27 Intake and Output 05/09/17 05/09/17 05/10/17 15:00 23:00 07:00 Intake Total 840 ml 860 ml Balance 840 ml 860 ml Exam Review of Systems: CONSTITUTIONAL: No fevers, chills. PULMONARY: No sob CARDIOVASCULAR: No chest pain/palpitations GASTROINTESTINAL: No nausea/vomiting. GENITOURINARY: No hematuria/dysuria. MUSCULOSKELETAL: No myagias/arthalgias. PSYCHIATRIC: The patient denies depression. NEUROLOGIC: lethargic Constitutional: alert, oriented Psych: no complaints Head: normocephalic ENMT: mucosa pink and moist Neck: jvd (9 cm water), supple Respiratory: diminished breath sounds (at bases/B) Cardiovascular: irregular rhythm Gastrointestinal: non-tender, soft Musculoskeletal: muscle weakness (generalized ) Extremities: edema (none) Neurological: other (NO focal deficits) Results Result Diagram: 05/09/17 0601 05/10/17 0547 Results 24 hrs Laboratory Tests Test 05/09/17 13:24 05/10/17 00:58 05/10/17 05:47 Magnesium Level 1.7 Vancomycin Level Trough 23.3 *H 17.4 Prothrombin Time 13.7 Prothrombin Time Ratio 1.1 INR International Normalized Ratio 1.05 Blood Urea Nitrogen 20 Creatinine 0.82 Medications Medications Current Medications Morphine Sulfate (morphine) 2 mg Q4H PRN IV PAIN Last administered on 05:05; Admin Dose 2 MG; Start 05/07/17 at 05:30 Ondansetron HCl 4 mg 4 mg Q6H PRN IV NAUSEA AND/OR VOMITING; Start 05/07/17 at 05:30 Cefepime HCl (Maxipime 1gm/50 ml (Pmx)) 50 ml @ 100 mls/hr Q12 IVPB Last administered on 05/10/17 08:57; Admin Dose 100 MLS/HR; Start 05/07/17 at 12:00 Enoxaparin Sodium (Lovenox) 60 mg Q12 SC Last administered on 05/10/17 09:12; Admin Dose 60 MG; Start 05/07/17 at 12:00 Furosemide (Lasix) 20 mg DAILY GTB Last administered on 05/10/17 08:57; Admin Dose 20 MG; Start 05/08/17 at 09:00 Lansoprazole (Prevacid) 30 mg DAILY GTB Last administered on 05/10/17 08:57; Admin Dose 30 MG; Start 05/08/17 at 09:00 Warfarin Sodium (Coumadin) 2 mg DAILY@17 GTB Last administered on 05/09/17 17: 37; Admin Dose 2 MG; Start 05/08/17 at 17:00 Digoxin 0.125 mg 0.125 mg Q2D@13 NGT Last administered on 05/10/17 12:24; Admin Dose 0.125 MG; Start 05/10/17 at 13:00 Dextrose/Sodium Chloride (D5-1/2ns) 1,000 ml @ 80 mls/hr [id number] IV Last administered on 05/09/17 08:22; Admin Dose 80 MLS/HR; Start 05/08/17 at 16:30 Metoprolol Tartrate (Lopressor) 100 mg BID GTB Last administered on 05/10/17t 08:58; Admin Dose 100 MG; Start 05/09/17 at 09:00 Guaifenesin 15 mg 15 mg QID PRN GTB COUGH; Start 05/09/17 at 09:00 Vancomycin HCl (Vancocin) 100 ml @ 100 mls/hr Q12H IVPB ; Start 05/10/17 at 09: 00 Acetaminophen (Tylenol Liquid) 650 mg Q4H PRN GTB PAIN AND OR ELEVATED TEMP; Start 05/10/17 at 13:00 MINOO REY May 10, 2017 13:25
[2017-05-10] MEDS ORDERED: METOPROLOL 5 MG INJ IV PRN (13:30)
[2017-05-10] MEDS ORDERED: DIGOXIN 500 MCG INJ IV ONE (13:30)
[2017-05-10] MEDS: ACETAMINOPHEN 650MG/20.3ML CUP GTB PRN (14:39)
--- NOTE | 2017-05-10 15:40 | CONS ---
Date/Time of Note Date/Time of Note DATE: 05/10/17 TIME: 15:40 Assessment/Plan Assessment/Plan Chief Complaint/Hosp Course - HCAP - UTI due to klebsiella - A fib with RVR - H/o recurrent CVA/bilateral thalami, cerebral peduncles, periaqueductal midbrain and caroline with residual weakness - Dysphagia s/p PEG - H/o DVT - H/o recent sepsis prob d/t aspiration PNA/pneumonitis or bronchitis 04/2017 - H/o recent VRE in urine with no significant pyuria 04/25/17 - H/o sepsis due to bacteremia and UTI - H/o enterococcus bacteremia, tip of PICC grew Group B strep. Transthoracic echo on 01/16/2017, 03/25/2017 did not reveal valvular vegetation but difficult to assess MV. Pt was supposed to take an empiric course of endocarditis through 04/23/2017; Pt's said that she had completed antibiotics on 04/24/2017 - H/o rheumatic heart disease (probable rheumatic, severe MS on transthoracic echo) - H/o recurrent UTI/CA-UTI (E. coli 03/21/17, proteus 02/11/17, C. glabrata 02/09/17 ) - H/o diffuse moderate degree of gastritis s/p EGD 02/15/2017 - H/o gastritis due to H. pylori based on pathology 02/15/2017; Pt completed clarithromycin-based regimen (02/20/2017-), [id number] - H/o bleeding from GT site, and blood clots in tube feed, resolved - H/o possible aspiration - H/o encephalopathy due to CVA. CSF from 01/19/2017: WBC=3, RBC=0, glu 53, pro= 61, CSF ([place] serology negative, HSV negative, cocci CF negative, encephalitis meningitis panel could not be done due to a lack of sample), serum ([place] PCR negative, crypto antigen negative, cocci CF negative, histo CF negative). - H/o MARIELA - H/o LLE ischemia s/p thrombolysis and subsequent open thrombectomy and fasciotomy at [facility] 09/2015 - H/o thrombus on DEBBIE per records from [facility] Recommendations: - continue empiric vancomycin and cefepime (05/07/2017-) - pending: sputum cx (unable to collect), procalc (05/08 in process) - serial CXR Management d/w patient, RN Annamarie, and Dr. Bosch Problems: Consultation Date/Type/Reason Admit Date/Time May 07, 2017 at 02:40 Initial Consult Date 05/08/17 Type of Consultation: Infectious Disease Referring Provider: ROXANA TORO MD 24 HR Interval Summary Free Text/Dictation Pt with poor IV access and PICC line just inserted. Metoprolol changed to atenolol d/t afib with RVR. C/o mild LUE pain r/t recent PICC line insertion. Denies CP, SOB, n/v/d, dysuria. Exam/Review of Systems Vital Signs Vitals Vital Signs Date Time Temp Pulse Resp B/P Pulse Ox O2 Delivery O2 Flow Rate FiO2 05/10/17 14:47 91 20 98 Nasal Cannula 2.0 05/10/17 11:42 98.8 106/55 05/09/17 01:35 27 Intake and Output 05/09/17 05/09/17 05/10/17 15:00 23:00 07:00 Intake Total 840 ml 860 ml Balance 840 ml 860 ml Exam Constitutional: alert, oriented, well developed, other (using supplement O2 via NC at 2L) Head: atraumatic, normocephalic Eyes: nl sclera, other (mild ptosis of L eye -unchanged) Neck: supple Respiratory: diminished breath sounds Cardiovascular: irregular rhythm Gastrointestinal: soft, non-tender, other (GT intact) Genitourinary - Female: other (no Lees) Musculoskeletal: nl extremities to inspection Extremities: normal pulses, No edema Neurological: other (+tracking, Romanian speaking, somewhat slow to respond; ESTEVEZ ) Skin: nl turgor Results Result Diagram: 05/09/17 0601 05/10/17 0547 Results 24 hrs Laboratory Tests Test 05/10/17 00:58 05/10/17 05:47 Vancomycin Level Trough 23.3 *H 17.4 Prothrombin Time 13.7 Prothrombin Time Ratio 1.1 INR International Normalized Ratio 1.05 Blood Urea Nitrogen 20 Creatinine 0.82 Medications Medications Current Medications Morphine Sulfate (morphine) 2 mg Q4H PRN IV PAIN Last administered on t 05:05; Admin Dose 2 MG; Start 05/07/17 at 05:30 Ondansetron HCl 4 mg 4 mg Q6H PRN IV NAUSEA AND/OR VOMITING; Start 05/07/17 at 05:30 Cefepime HCl (Maxipime 1gm/50 ml (Pmx)) 50 ml @ 100 mls/hr Q12 IVPB Last administered on 05/10/17 08:57; Admin Dose 100 MLS/HR; Start 05/07/17 at 12:00 Enoxaparin Sodium (Lovenox) 60 mg Q12 SC Last administered on 05/10/17 09:12; Admin Dose 60 MG; Start 05/07/17 at 12:00 Furosemide (Lasix) 20 mg DAILY GTB Last administered on 05/10/17 08:57; Admin Dose 20 MG; Start 05/08/17 at 09:00 Lansoprazole 30 mg 30 mg DAILY GTB Last administered on 05/10/17 08:57; Admin Dose 30 MG; Start 05/08/17 at 09:00 Dextrose/Sodium Chloride (D5-1/2ns) 1,000 ml @ 80 mls/hr [id number] IV Last administered on 05/09/17 08:22; Admin Dose 80 MLS/HR; Start 05/08/17 at 16:30 Guaifenesin 15 mg 15 mg QID PRN GTB COUGH; Start 05/09/17 at 09:00 Vancomycin HCl (Vancocin) 100 ml @ 100 mls/hr Q12H IVPB ; Start 05/10/17 at 09: 00 Acetaminophen (Tylenol Liquid) 650 mg Q4H PRN GTB PAIN AND OR ELEVATED TEMP Last administered on 05/10/17 14:39; Admin Dose 650 MG; Start 05/10/17 at 13:00 Digoxin (Digoxin) 0.125 mg DAILY NGT ; Start 05/11/17 at 09:00 Warfarin Sodium (Coumadin) 3 mg DAILY@17 GTB ; Start 05/10/17 at 17:00 Atenolol (Tenormin) 50 mg BID PO ; Start 05/10/17 at 21:00 Metoprolol Tartrate (Lopressor) 5 mg Q4H PRN IV HR>110 Hold SBP<100; Start 05/10/17 at 13:30 GIRISH SCHMITZ NP May 10, 2017 15:40
--- NOTE | 2017-05-10 16:00 | PN ---
Date/Time of Note Date/Time of Note DATE: 05/10/17 TIME: 15:56 Assessment/Plan VTE Prophylaxis VTE Prophylaxis Intervention: SCD's Lines/Catheters IV Catheter Type (from Nrs): PICC Line Central line still needed: Yes Urinary Cath still in place: No Assessment/Plan Chief Complaint/Hosp Course Patient remains afebrile, logical status at the baseline, atrial flutter with rate going up to 150s, continue atenolol, telemetry monitoring. Assessment/Plan - Recurrent sepsis secondary pneumonia and UTI. Dr. Hiro villeda is following in ID consultation. Continue antibiotics per ID. - Atrial fibrillation with rapid ventricular response. Dr. Armenta is following and cardiology consultation. Continue Coumadin, Lovenox, atenolol. - Bilateral thalamic infarctions. - Dysphagia with G-tube. - Mitral stenosis - CHF, continue Lasix, monitor electrolytes - Hx Thrombosis of the bilateral cephalic veins. - History of VRE in urine Further recommendations based on clinical course. Plan of care discussed with Dr. Valdovinos. Problems: Exam/Review of Systems Vital Signs Vitals Vital Signs Date Time Temp Pulse Resp B/P Pulse Ox O2 Delivery O2 Flow Rate FiO2 05/10/17 14:47 91 20 98 Nasal Cannula 2.0 05/10/17 11:42 98.8 106/55 05/09/17 01:35 27 Intake and Output 05/09/17 05/09/17 05/10/17 15:00 23:00 07:00 Intake Total 840 ml 860 ml Balance 840 ml 860 ml Exam Constitutional: alert, oriented Respiratory: diminished breath sounds Cardiovascular: irregular rhythm Gastrointestinal: non-tender, other (G-tube), soft Neurological: nl mental status, other (Bilateral extremities weakness secondary to bilateral thalamic stroke) Results Result Diagram: 05/09/17 0601 05/10/17 0547 Results 24 hrs Laboratory Tests Test 05/10/17 00:58 05/10/17 05:47 Vancomycin Level Trough 23.3 *H 17.4 Prothrombin Time 13.7 Prothrombin Time Ratio 1.1 INR International Normalized Ratio 1.05 Blood Urea Nitrogen 20 Creatinine 0.82 Medications Medications Current Medications Morphine Sulfate (morphine) 2 mg Q4H PRN IV PAIN Last administered on t 05:05; Admin Dose 2 MG; Start 05/07/17 at 05:30 Ondansetron HCl 4 mg 4 mg Q6H PRN IV NAUSEA AND/OR VOMITING; Start 05/07/17 at 05:30 Cefepime HCl (Maxipime 1gm/50 ml (Pmx)) 50 ml @ 100 mls/hr Q12 IVPB Last administered on 05/10/17 08:57; Admin Dose 100 MLS/HR; Start 05/07/17 at 12:00 Enoxaparin Sodium (Lovenox) 60 mg Q12 SC Last administered on 05/10/17 09:12; Admin Dose 60 MG; Start 05/07/17 at 12:00 Furosemide (Lasix) 20 mg DAILY GTB Last administered on 05/10/17 08:57; Admin Dose 20 MG; Start 05/08/17 at 09:00 Lansoprazole 30 mg 30 mg DAILY GTB Last administered on 05/10/17 08:57; Admin Dose 30 MG; Start 05/08/17 at 09:00 Dextrose/Sodium Chloride (D5-1/2ns) 1,000 ml @ 80 mls/hr [id number] IV Last administered on 05/09/17 08:22; Admin Dose 80 MLS/HR; Start 05/08/17 at 16:30 Guaifenesin 15 mg 15 mg QID PRN GTB COUGH; Start 05/09/17 at 09:00 Vancomycin HCl (Vancocin) 100 ml @ 100 mls/hr Q12H IVPB ; Start 05/10/17 at 09: 00 Acetaminophen (Tylenol Liquid) 650 mg Q4H PRN GTB PAIN AND OR ELEVATED TEMP Last administered on 05/10/17 14:39; Admin Dose 650 MG; Start 05/10/17 at 13:00 Digoxin (Digoxin) 0.125 mg DAILY NGT ; Start 05/11/17 at 09:00 Warfarin Sodium (Coumadin) 3 mg DAILY@17 GTB ; Start 05/10/17 at 17:00 Atenolol (Tenormin) 50 mg BID PO ; Start 05/10/17 at 21:00 Metoprolol Tartrate (Lopressor) 5 mg Q4H PRN IV HR>110 Hold SBP<100; Start 05/10/17 at 13:30 LAWRENCE PICKERING May 10, 2017 16:00
--- NOTE | 2017-05-10 16:25 | RADRPT ---
PROCEDURE: Ultrasound guidance for placement of needle in left upper extremity vein. CLINICAL INDICATION: Venous access. TECHNIQUE: Limited sonography of the left upper extremity was performed. Ultrasound images were recorded and s tored in the patient's medical record. COMPARISON: None. FINDINGS: The ultrasound images demonstrate a patent left upper extremity vein. The PICC line was inserted by the PICC line nurse. IMPRESSION: 1. Ultrasound guidance for a needle placement in a left upper extremity vein. 2. The left upper extremity vein is patent. RPTAT: QQ .Catrachito Small MD, MD Date Time Electronically viewed and signed by .Catrachito Small MD, MD on 05/10/2017 16:25 .R/
--- NOTE | 2017-05-10 18:52 | RADRPT ---
PROCEDURE: XR Chest. CLINICAL INDICATION: Check PICC line position. TECHNIQUE: Single frontal view. COMPARISON: 05/07/2017. FINDINGS: There is a left arm PICC line with the tip in the lower superior vena cava. There is bilateral inte rstitial pulmonary disease consistent with pulmonary edema, unchanged. The lungs are otherwise clear . The heart is enlarged. There is no pleural effusion. There is no pneumothorax. IMPRESSION: 1. Left arm PICC line tip in satisfactory position. 2. Unchanged pulmonary edema and cardiomegaly. RPTAT: QQ .Catrachito Small MD, MD Date Time Electronically viewed and signed by .Catrahcito Small MD, MD on 05/10/2017 16:48 .R/
[2017-05-10] MEDS: ATENOLOL 50 MG TAB PO SCH (21:37)
[2017-05-10] MEDS: WARFARIN 2 MG TAB GTB SCH (22:11)
[2017-05-10] MEDS: VANCOMYCIN 500MG/NS (PMX) 100 ML IVPB SCH (22:19)
[2017-05-11] VITALS (12 sets, daily range): BP systolic 62–134; BP diastolic 54–72; PULSE 60–128; RESP 18–21
[2017-05-11] MEDS: LEVALBUTEROL (NEB) 0.63 MG/3 ML AMP HHN SCH ×4 (02:31→19:53)
[2017-05-11] MEDS: DEXTROSE 5%-0.45% NACL 1,000 ML IV SCH ×2 (05:48→14:18)
[2017-05-11] MEDS: VANCOMYCIN 500MG/NS (PMX) 100 ML IVPB SCH ×2 (05:48→18:59)
[2017-05-11] MEDS: ACETAMINOPHEN 650MG/20.3ML CUP GTB PRN ×2 (06:29→20:46)
[2017-05-11 08:23] LABS: BASOPHIL # 0.1 10^3/ul (0.0-0.1); BASOPHILS % 0.8 % (0.0-2.0); EOSINOPHILS # 0.2 10^3/ul (0.0-0.5); EOSINOPHILS % 2.7 % (0.0-7.0); HEMATOCRIT 32.6 % (37.0-47.0); HEMOGLOBIN 9.8 g/dl (12.0-16.0); LYMPHOCYTES # 1.4 10^3/ul (0.8-2.9); LYMPHOCYTES % 15.6 % (15.0-51.0); MEAN CORPUSCULAR HEMOGLOBIN 26.1 pg (29.0-33.0); MEAN CORPUSCULAR HGB CONC 30.1 g/dl (32.0-37.0); MEAN CORPUSCULAR VOLUME 86.9 fl (82.0-101.0); MONOCYTE # 0.7 10^3/ul (0.3-0.9); MONOCYTES % 7.6 % (0.0-11.0); NEUTROPHIL # 6.4 10^3/ul (1.6-7.5); NEUTROPHILS % 72.7 % (39.0-77.0); PLATELET COUNT 245 10^3/UL (140-415); RED BLOOD COUNT 3.75 10^6/ul (4.20-5.40); RED CELL DISTRIBUTION WIDTH 16.3 % (11.5-14.5); WHITE BLOOD COUNT 8.8 10^3/ul (4.8-10.8)
[2017-05-11 08:37] LABS: INR 1.1; PROTIME 14.2 Sec (12.2-14.2); PT RATIO 1.1
[2017-05-11 08:48] LABS: CALCIUM 9.2 mg/dl (8.4-10.2); CREATININE 0.8 mg/dl (0.44-1.00); POTASSIUM 3.8 mmol/L (3.5-5.1)
[2017-05-11] MEDS: FUROSEMIDE 20 MG TAB GTB SCH (08:51)
[2017-05-11] MEDS: CEFEPIME 1GM/50 ML (PMX) 50 ML IVPB SCH ×2 (08:51→20:29)
[2017-05-11] MEDS: ENOXAPARIN 60 MG/0.6 ML SYG SC SCH ×2 (08:53→20:40)
[2017-05-11] MEDS: LANSOPRAZOLE 30 MG CAP GTB SCH (08:55)
[2017-05-11] MEDS: ATENOLOL 50 MG TAB PO SCH ×3 (08:55→20:41)
[2017-05-11] MEDS: DIGOXIN 0.125 MG TAB NGT SCH (08:55)
--- NOTE | 2017-05-11 09:22 | CONS ---
Date/Time of Note Date/Time of Note DATE: 05/11/17 TIME: 09:20 Assessment/Plan Assessment/Plan Additional Assessment/Plan 1. Atrial fibrillation with some mild rapid ventricular response-still at this time- rate controlled, no pauses, no indication for pacer now. 2. History of cardiomyopathy with decreased left ventricular ejection fraction , last study approximately 45% to 50% by echo 01/2017. 3. Congestive heart failure by chest x-ray, systolic and diastolic, acute on chronic- better fluid status now. 4. Hypernatremia-improved 5. History of mitral stenosis- stable by exam. 6. History of thalamic infarctions, prior cerebrovascular accident. 7. Urinary tract infection. 8. Dysphagia, status post gastrostomy tube. Consultation Date/Type/Reason Admit Date/Time May 07, 2017 at 02:40 Initial Consult Date 05/08/17 Type of Consultation: Infectious Disease Referring Provider: ROXANA TORO MD 24 HR Interval Summary Free Text/Dictation No acute events - BP in good range - rate controlled. ROS: No fever, no chills, no nausea, no vomiting, no diarrhea/constipation No recent weight changes No chest pain, no PND, no orthopnea No dizziness, blurred vision No thirst, no heat or cold intolerance (pre nurse) Exam/Review of Systems Vital Signs Vitals Vital Signs Date Time Temp Pulse Resp B/P Pulse Ox O2 Delivery O2 Flow Rate FiO2 05/11/17 08:49 98.2 90 18 91/55 99 Room Air 05/11/17 08:05 21 05/11/17 02:32 2.0 Intake and Output 05/10/17 05/10/17 05/11/17 15:00 23:00 07:00 Intake Total 860 ml Balance 860 ml Exam General: WN/WD/NAD, AOx 1-2 HEENT: Unicetric/atraumatic/EOMI (follow commands) NECK: JVD elevated, no thyromegaly Lymph: no lymphadenopathy HEART: irregular with no S3, II/ systolic murmur at apex and 2/6 diast m LUNGS: Coarse sounds ABD: soft, NT, ND, +BS : Intact Neuro: non focal SKIN: chronic changes EXT: trace edema Results Result Diagram: 05/11/1770105/11/17701 Results 24 hrs Laboratory Tests Test 05/11/17 07:02 White Blood Count 8.8 Red Blood Count 3.75 L Hemoglobin 9.8 L Hematocrit 32.6 L Mean Corpuscular Volume 86.9 Mean Corpuscular Hemoglobin 26.1 L Mean Corpuscular Hemoglobin Concent 30.1 L Red Cell Distribution Width 16.3 H Platelet Count 245 Mean Platelet Volume 13.0 H Neutrophils % 72.7 Lymphocytes % 15.6 Monocytes % 7.6 Eosinophils % 2.7 Basophils % 0.8 Nucleated Red Blood Cells % 0.0 Neutrophils # 6.4 Lymphocytes # 1.4 Monocytes # 0.7 Eosinophils # 0.2 Basophils # 0.1 Nucleated Red Blood Cells # 0.0 Prothrombin Time 14.2 Prothrombin Time Ratio 1.1 INR International Normalized Ratio 1.10 Sodium Level 143 Potassium Level 3.8 Chloride Level 107 Carbon Dioxide Level 28 Anion Gap 12 Blood Urea Nitrogen 18 Creatinine 0.80 Glucose Level 122 Calcium Level 9.2 Medications Medications Current Medications Morphine Sulfate (morphine) 2 mg Q4H PRN IV PAIN Last administered on 05:05; Admin Dose 2 MG; Start 05/07/17 at 05:30 Ondansetron HCl 4 mg 4 mg Q6H PRN IV NAUSEA AND/OR VOMITING; Start 05/07/17 at 05:30 Cefepime HCl (Maxipime 1gm/50 ml (Pmx)) 50 ml @ 100 mls/hr Q12 IVPB Last administered on 05/11/17 08:51; Admin Dose 100 MLS/HR; Start 05/07/17 at 12:00 Enoxaparin Sodium (Lovenox) 60 mg Q12 SC Last administered on 05/11/17 08:53; Admin Dose 60 MG; Start 05/07/17 at 12:00 Furosemide (Lasix) 20 mg DAILY GTB Last administered on 05/11/17 08:51; Admin Dose 20 MG; Start 05/08/17 at 09:00 Lansoprazole 30 mg 30 mg DAILY GTB Last administered on 05/11/17 08:55; Admin Dose 30 MG; Start 05/08/17 at 09:00 Dextrose/Sodium Chloride (D5-1/2ns) 1,000 ml @ 80 mls/hr [id number] IV Last administered on 05/11/17 05:48; Admin Dose 80 MLS/HR; Start 05/08/17 at 16:30 Guaifenesin (Robitussin Liquid Cup) 15 mg QID PRN GTB COUGH; Start 05/09/17 at 09:00 Acetaminophen (Tylenol Liquid) 650 mg Q4H PRN GTB PAIN AND OR ELEVATED TEMP Last administered on 05/11/17 06:29; Admin Dose 650 MG; Start 05/10/17 at 13:00 Digoxin (Digoxin) 0.125 mg DAILY NGT Last administered on 05/11/17 08:55; Admin Dose 0.125 MG; Start 05/11/17 at 09:00 Warfarin Sodium (Coumadin) 3 mg DAILY@17 GTB ; Start 05/10/17 at 17:00 Atenolol (Tenormin) 50 mg BID PO Last administered on 05/10/17 21:37; Admin Dose 50 MG; Start 05/10/17 at 21:00 Metoprolol Tartrate (Lopressor) 5 mg Q4H PRN IV HR>110 Hold SBP<100; Start 05/10/17 at 13:30 IV Flush 10 ml 10 ml PRN PRN IV IV PROTOCOL; Start 05/10/17 at 16:30 Vancomycin HCl (Vancocin) 100 ml @ 100 mls/hr Q12H IVPB Last administered on 05/11/17 05:48; Admin Dose 100 MLS/HR; Start 05/10/17 at 18:30 YAJAIRA ALVAREZ MD May 11, 2017 09:22
--- NOTE | 2017-05-11 14:53 | RADRPT ---
Vent Rate: 89 bpm RR Interval: 0 msec [place] Interval: 0 msec QRS Duration: 68 msec QT Interval: 332 msec QTC Interval: 403 msec P-R-T [place]: 0 - 28 - -68 degrees Atrial fibrillation Nonspecific T wave abnormality , probably digitalis effect Abnormal ECG Electronically Signed By: Gael Stern [id number]
[2017-05-11] MEDS: WARFARIN 2 MG TAB GTB SCH (16:02)
--- NOTE | 2017-05-11 16:18 | PN ---
Date/Time of Note Date/Time of Note DATE: 05/11/17 TIME: 16:17 Assessment/Plan VTE Prophylaxis VTE Prophylaxis Intervention: SCD's Lines/Catheters [facility]): PICC Line Central line still needed: Yes Urinary Cath still in place: No Assessment/Plan Chief Complaint/Hosp Course Patient remains afebrile, atrial fib with RVR, continue atenolol, telemetry monitoring. Assessment/Plan - Recurrent sepsis secondary pneumonia and UTI. Dr. Hiro villeda is following in ID consultation. Continue antibiotics per ID. - Atrial fibrillation with rapid ventricular response. Dr. Armenta is following and cardiology consultation. Continue Coumadin, Lovenox, atenolol. - Bilateral thalamic infarctions. - Dysphagia with G-tube. - Mitral stenosis - CHF, continue Lasix, monitor electrolytes - Hx Thrombosis of the bilateral cephalic veins. - History of VRE in urine Further recommendations based on clinical course. Plan of care discussed with Dr. Valdovinos. Problems: Exam/Review of Systems Vital Signs Vitals Vital Signs Date Time Temp Pulse Resp B/P Pulse Ox O2 Delivery O2 Flow Rate FiO2 05/11/17 15:29 97.5 116 18 118/72 98 05/11/17 13:56 21 05/11/17 09:00 Nasal Cannula 3.0 Intake and Output 05/10/17 05/10/17 05/11/17 15:00 23:00 07:00 Intake Total 860 ml Balance 860 ml Exam Constitutional: alert, oriented Respiratory: diminished breath sounds Cardiovascular: irregular rhythm Gastrointestinal: non-tender, other (G-tube), soft Neurological: nl mental status, other (Bilateral extremities weakness secondary to bilateral thalamic stroke) Results Result Diagram: 05/11/17 0702 05/11/17 0702 Results 24 hrs Laboratory Tests Test 05/11/17 07:02 White Blood Count 8.8 Red Blood Count 3.75 L Hemoglobin 9.8 L Hematocrit 32.6 L Mean Corpuscular Volume 86.9 Mean Corpuscular Hemoglobin 26.1 L Mean Corpuscular Hemoglobin Concent 30.1 L Red Cell Distribution Width 16.3 H Platelet Count 245 Mean Platelet Volume 13.0 H Neutrophils % 72.7 Lymphocytes % 15.6 Monocytes % 7.6 Eosinophils % 2.7 Basophils % 0.8 Nucleated Red Blood Cells % 0.0 Neutrophils # 6.4 Lymphocytes # 1.4 Monocytes # 0.7 Eosinophils # 0.2 Basophils # 0.1 Nucleated Red Blood Cells # 0.0 Prothrombin Time 14.2 Prothrombin Time Ratio 1.1 INR International Normalized Ratio 1.10 Sodium Level 143 Potassium Level 3.8 Chloride Level 107 Carbon Dioxide Level 28 Anion Gap 12 Blood Urea Nitrogen 18 Creatinine 0.80 Glucose Level 122 Calcium Level 9.2 Medications Medications Current Medications Morphine Sulfate (morphine) 2 mg Q4H PRN IV PAIN Last administered on 05:05; Admin Dose 2 MG; Start 05/07/17 at 05:30 Ondansetron HCl 4 mg 4 mg Q6H PRN IV NAUSEA AND/OR VOMITING; Start 05/07/17 at 05:30 Cefepime HCl (Maxipime 1gm/50 ml (Pmx)) 50 ml @ 100 mls/hr Q12 IVPB Last administered on 05/11/17 08:51; Admin Dose 100 MLS/HR; Start 05/07/17 at 12:00 Enoxaparin Sodium (Lovenox) 60 mg Q12 SC Last administered on 05/11/17 08:53; Admin Dose 60 MG; Start 05/07/17 at 12:00 Furosemide (Lasix) 20 mg DAILY GTB Last administered on 05/11/17 08:51; Admin Dose 20 MG; Start 05/08/17 at 09:00 Lansoprazole 30 mg 30 mg DAILY GTB Last administered on 05/11/17 08:55; Admin Dose 30 MG; Start 05/08/17 at 09:00 Dextrose/Sodium Chloride (D5-1/2ns) 1,000 ml @ 80 mls/hr [id number] IV Last administered on 05/11/17 14:18; Admin Dose 80 MLS/HR; Start 05/08/17 at 16:30 Guaifenesin (Robitussin Liquid Cup) 15 mg QID PRN GTB COUGH; Start 05/09/17 at 09:00 Acetaminophen (Tylenol Liquid) 650 mg Q4H PRN GTB PAIN AND OR ELEVATED TEMP Last administered on 05/11/17 06:29; Admin Dose 650 MG; Start 05/10/17 at 13:00 Digoxin (Digoxin) 0.125 mg DAILY NGT Last administered on 05/11/17 08:55; Admin Dose 0.125 MG; Start 05/11/17 at 09:00 Warfarin Sodium (Coumadin) 3 mg DAILY@17 GTB Last administered on 05/11/17 16: 02; Admin Dose 3 MG; Start 05/10/17 at 17:00 Atenolol (Tenormin) 50 mg BID PO Last administered on 05/11/17 15:57; Admin Dose 50 MG; Start 05/10/17 at 21:00 Metoprolol Tartrate (Lopressor) 5 mg Q4H PRN IV HR>110 Hold SBP<100; Start 05/10/17 at 13:30 IV Flush 10 ml 10 ml PRN PRN IV IV PROTOCOL; Start 05/10/17 at 16:30 Vancomycin HCl (Vancocin) 100 ml @ 100 mls/hr Q12H IVPB Last administered on 05/11/17 05:48; Admin Dose 100 MLS/HR; Start 05/10/17 at 18:30 LAWRENCE PICKERING May 11, 2017 16:18
--- NOTE | 2017-05-11 18:40 | CONS ---
Date/Time of Note Date/Time of Note DATE: 05/11/17 TIME: 18:29 Assessment/Plan Assessment/Plan Additional Assessment/Plan - HCAP - UTI due to klebsiella - A fib with RVR - H/o recurrent CVA/bilateral thalami, cerebral peduncles, periaqueductal midbrain and caroline with residual weakness - Dysphagia s/p PEG - H/o DVT - H/o recent sepsis prob d/t aspiration PNA/pneumonitis or bronchitis 04/2017 - H/o recent VRE in urine with no significant pyuria 04/25/17 - H/o sepsis due to bacteremia and UTI - H/o enterococcus bacteremia, tip of PICC grew Group B strep. Transthoracic echo on 01/16/2017, 03/25/2017 did not reveal valvular vegetation but difficult to assess MV. Pt was supposed to take an empiric course of endocarditis through 04/23/2017; Pt's said that she had completed antibiotics on 04/24/2017 - H/o rheumatic heart disease (probable rheumatic, severe MS on transthoracic echo) - H/o recurrent UTI/CA-UTI (E. coli 03/21/17, proteus 02/11/17, C. glabrata 02/09/17 ) - H/o diffuse moderate degree of gastritis s/p EGD 02/15/2017 - H/o gastritis due to H. 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 CSF from 01/19/2017: WBC=3, RBC=0, glu 53, pro= 61, CSF ([place] serology negative, HSV negative, cocci CF negative, encephalitis meningitis panel could not be done due to a lack of sample), serum ([place] PCR negative, crypto antigen negative, cocci CF negative, histo CF negative). - H/o MARIELA - H/o LLE ischemia s/p thrombolysis and subsequent open thrombectomy and fasciotomy at [facility] 09/2015 - H/o thrombus on DEBBIE per records from [facility] Recommendations: - continue empiric vancomycin and cefepime (05/07/2017-) - pending: sputum cx (unable to collect), procalc (05/08 in process) - serial CXR Management d/w patient, RN Donna and Dr. Bosch Consultation Date/Type/Reason Admit Date/Time May 07, 2017 at 02:40 Initial Consult Date 05/08/17 Type of Consultation: Infectious Disease Referring Provider: ROXANA TORO MD 24 HR Interval Summary Free Text/Dictation remains on o2, VSS, seems comfortable, dw staff Constitutional: requiring O2 Exam/Review of Systems Vital Signs Vitals Vital Signs Date Time Temp Pulse Resp B/P Pulse Ox O2 Delivery O2 Flow Rate FiO2 05/11/17 16:00 128 05/11/17 15:29 97.5 18 118/72 98 05/11/17 13:56 21 05/11/17 09:00 Nasal Cannula 3.0 Intake and Output 05/10/17 05/10/17 05/11/17 15:00 23:00 07:00 Intake Total 860 ml Balance 860 ml Exam Constitutional: alert Psych: nl mood/affect Respiratory: diminished breath sounds, normal air movement Cardiovascular: nl pulses, other (s1s2) Gastrointestinal: other (gt intact), soft Results Result Diagram: 05/11/17 0702 05/11/17 0702 Results 24 hrs Laboratory Tests Test 05/11/17 07:02 White Blood Count 8.8 Red Blood Count 3.75 L Hemoglobin 9.8 L Hematocrit 32.6 L Mean Corpuscular Volume 86.9 Mean Corpuscular Hemoglobin 26.1 L Mean Corpuscular Hemoglobin Concent 30.1 L Red Cell Distribution Width 16.3 H Platelet Count 245 Mean Platelet Volume 13.0 H Neutrophils % 72.7 Lymphocytes % 15.6 Monocytes % 7.6 Eosinophils % 2.7 Basophils % 0.8 Nucleated Red Blood Cells % 0.0 Neutrophils # 6.4 Lymphocytes # 1.4 Monocytes # 0.7 Eosinophils # 0.2 Basophils # 0.1 Nucleated Red Blood Cells # 0.0 Prothrombin Time 14.2 Prothrombin Time Ratio 1.1 INR International Normalized Ratio 1.10 Sodium Level 143 Potassium Level 3.8 Chloride Level 107 Carbon Dioxide Level 28 Anion Gap 12 Blood Urea Nitrogen 18 Creatinine 0.80 Glucose Level 122 Calcium Level 9.2 Medications Medications Current Medications Morphine Sulfate (morphine) 2 mg Q4H PRN IV PAIN Last administered on t 05:05; Admin Dose 2 MG; Start 05/07/17 at 05:30 Ondansetron HCl 4 mg 4 mg Q6H PRN IV NAUSEA AND/OR VOMITING; Start 05/07/17 at 05:30 Cefepime HCl (Maxipime 1gm/50 ml (Pmx)) 50 ml @ 100 mls/hr Q12 IVPB Last administered on 05/11/17 08:51; Admin Dose 100 MLS/HR; Start 05/07/17 at 12:00 Enoxaparin Sodium (Lovenox) 60 mg Q12 SC Last administered on 05/11/17 08:53; Admin Dose 60 MG; Start 05/07/17 at 12:00 Furosemide (Lasix) 20 mg DAILY GTB Last administered on 05/11/17 08:51; Admin Dose 20 MG; Start 05/08/17 at 09:00 Lansoprazole 30 mg 30 mg DAILY GTB Last administered on 05/11/17 08:55; Admin Dose 30 MG; Start 05/08/17 at 09:00 Dextrose/Sodium Chloride (D5-1/2ns) 1,000 ml @ 80 mls/hr [id number] IV Last administered on 05/11/17 14:18; Admin Dose 80 MLS/HR; Start 05/08/17 at 16:30 Guaifenesin (Robitussin Liquid Cup) 15 mg QID PRN GTB COUGH; Start 05/09/17 at 09:00 Acetaminophen (Tylenol Liquid) 650 mg Q4H PRN GTB PAIN AND OR ELEVATED TEMP Last administered on 05/11/17 06:29; Admin Dose 650 MG; Start 05/10/17 at 13:00 Digoxin (Digoxin) 0.125 mg DAILY NGT Last administered on 05/11/17 08:55; Admin Dose 0.125 MG; Start 05/11/17 at 09:00 Warfarin Sodium (Coumadin) 3 mg DAILY@17 GTB Last administered on 05/11/17 16: 02; Admin Dose 3 MG; Start 05/10/17 at 17:00 Atenolol (Tenormin) 50 mg BID PO Last administered on 05/11/17 15:57; Admin Dose 50 MG; Start 05/10/17 at 21:00 Metoprolol Tartrate (Lopressor) 5 mg Q4H PRN IV HR>110 Hold SBP<100; Start 05/10/17 at 13:30 IV Flush 10 ml 10 ml PRN PRN IV IV PROTOCOL; Start 05/10/17 at 16:30 Vancomycin HCl (Vancocin) 100 ml @ 100 mls/hr Q12H IVPB Last administered on 05/11/17 05:48; Admin Dose 100 MLS/HR; Start 05/10/17 at 18:30 ALEXIS NAJERA May 11, 2017 18:40
[2017-05-12] VITALS (12 sets, daily range): BP systolic 93–133; BP diastolic 57–93; PULSE 69–120; RESP 17–21
[2017-05-12] MEDS: LEVALBUTEROL (NEB) 0.63 MG/3 ML AMP HHN SCH ×4 (02:17→20:42)
[2017-05-12] MEDS: VANCOMYCIN 500MG/NS (PMX) 100 ML IVPB SCH ×2 (05:45→18:26)
[2017-05-12 06:26] LABS: ABNORMAL IP MESSAGE 1; BASOPHIL # 0.1 10^3/ul (0.0-0.1); BASOPHILS % 0.9 % (0.0-2.0); EOSINOPHILS # 0.3 10^3/ul (0.0-0.5); EOSINOPHILS % 3.4 % (0.0-7.0); HEMATOCRIT 32.2 % (37.0-47.0); HEMOGLOBIN 9.9 g/dl (12.0-16.0); LYMPHOCYTES # 1.4 10^3/ul (0.8-2.9); LYMPHOCYTES % 16.2 % (15.0-51.0); MEAN CORPUSCULAR HEMOGLOBIN 26.5 pg (29.0-33.0); MEAN CORPUSCULAR HGB CONC 30.7 g/dl (32.0-37.0); MEAN CORPUSCULAR VOLUME 86.1 fl (82.0-101.0); MEAN PLATELET VOLUME 13.3 fl (7.4-10.4); MONOCYTE # 0.7 10^3/ul (0.3-0.9); MONOCYTES % 8.3 % (0.0-11.0); NEUTROPHILS % 70.4 % (39.0-77.0); PLATELET COUNT 247 10^3/UL (140-415); RED BLOOD COUNT 3.74 10^6/ul (4.20-5.40); RED CELL DISTRIBUTION WIDTH 16.3 % (11.5-14.5); WHITE BLOOD COUNT 8.5 10^3/ul (4.8-10.8)
[2017-05-12 06:36] LABS: POSITIVE DIFF @See below
[2017-05-12 06:42] LABS: INR 1.25; PROTIME 15.8 Sec (12.2-14.2); PT RATIO 1.2
[2017-05-12 06:50] LABS: CREATININE 0.82 mg/dl (0.44-1.00); POTASSIUM 3.9 mmol/L (3.5-5.1)
[2017-05-12] MEDS: DEXTROSE 5%-0.45% NACL 1,000 ML IV SCH ×2 (08:00→20:30)
[2017-05-12] MEDS: ATENOLOL 50 MG TAB PO SCH ×2 (09:00→21:40)
[2017-05-12] MEDS: FUROSEMIDE 20 MG TAB GTB SCH (09:00)
[2017-05-12] MEDS: CEFEPIME 1GM/50 ML (PMX) 50 ML IVPB SCH ×2 (09:27→21:00)
[2017-05-12] MEDS: LANSOPRAZOLE 30 MG CAP GTB SCH (09:27)
[2017-05-12] MEDS: DIGOXIN 0.125 MG TAB NGT SCH (09:39)
[2017-05-12] MEDS: ENOXAPARIN 60 MG/0.6 ML SYG SC SCH ×2 (09:47→21:43)
--- NOTE | 2017-05-12 13:13 | CONS ---
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 Transthoracic echo on 01/16/2017, 03/25/2017 did not reveal valvular vegetation but difficult to assess MV. Pt was supposed to take an empiric course of endocarditis through 04/23/2017; Pt's said that she had completed antibiotics on 04/24/2017 - H/o rheumatic heart disease (probable rheumatic, severe MS on transthoracic echo) - H/o recurrent UTI/CA-UTI (E. coli 03/21/17, proteus 02/11/17, C. glabrata 02/09/17 ) - H/o diffuse moderate degree of gastritis s/p EGD 02/15/2017 - H/o gastritis due to H. 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 CSF from 01/19/2017: WBC=3, RBC=0, glu 53, pro= 61, CSF ([place] serology negative, HSV negative, cocci CF negative, encephalitis meningitis panel could not be done due to a lack of sample), serum ([place] PCR negative, crypto antigen negative, cocci CF negative, histo CF negative). - H/o MARIELA - H/o LLE ischemia s/p thrombolysis and subsequent open thrombectomy and fasciotomy at [facility] 09/2015 - H/o thrombus on DEBBIE per records from [facility] Recommendations: - continue empiric vancomycin and cefepime (05/07/2017-) - pending: sputum cx (unable to collect), procalc (05/08 in process) - serial CXR Management d/w patient, RN Donna and Dr. Bosch Consultation Date/Type/Reason Admit Date/Time May 07, 2017 at 02:40 Initial Consult Date 05/08/17 Type of Consultation: Infectious Disease Referring Provider: ROXANA TORO MD 24 HR Interval Summary Free Text/Dictation afebrile, wbc nl, no new acute issues reported- staff Constitutional: improved Exam/Review of Systems Vital Signs Vitals Vital Signs Date Time Temp Pulse Resp B/P Pulse Ox O2 Delivery O2 Flow Rate FiO2 05/12/17 12:58 2.0 05/12/17 12:20 72 05/12/17 11:40 97.6 21 105/62 100 05/12/17 08:30 Nasal Cannula 05/12/17 08:21 21 Intake and Output 05/11/17 05/11/17 05/12/17 15:00 23:00 07:00 Intake Total 860 ml 800 ml Balance 860 ml 800 ml Exam Constitutional: alert, well developed Respiratory: diminished breath sounds, normal air movement Cardiovascular: nl pulses, other (s1s2) Musculoskeletal: nl extremities to inspection Extremities: normal pulses Neurological: confused Results Result Diagram: 05/12/17 0559 05/12/17 0559 Results 24 hrs Laboratory Tests Test 05/12/17 05:59 White Blood Count 8.5 Red Blood Count 3.74 L Hemoglobin 9.9 L Hematocrit 32.2 L Mean Corpuscular Volume 86.1 Mean Corpuscular Hemoglobin 26.5 L Mean Corpuscular Hemoglobin Concent 30.7 L Red Cell Distribution Width 16.3 H Platelet Count 247 Mean Platelet Volume 13.3 H Neutrophils % 70.4 Lymphocytes % 16.2 Monocytes % 8.3 Eosinophils % 3.4 Basophils % 0.9 Nucleated Red Blood Cells % 0.0 Neutrophils # 6.0 Lymphocytes # 1.4 Monocytes # 0.7 Eosinophils # 0.3 Basophils # 0.1 Nucleated Red Blood Cells # 0.0 Prothrombin Time 15.8 H Prothrombin Time Ratio 1.2 INR International Normalized Ratio 1.25 Sodium Level 144 Potassium Level 3.9 Chloride Level 106 Carbon Dioxide Level 28 Anion Gap 14 Blood Urea Nitrogen 18 Creatinine 0.82 Glucose Level 112 Calcium Level 9.0 Magnesium Level 2.1 Medications Medications Current Medications Morphine Sulfate (morphine) 2 mg Q4H PRN IV PAIN Last administered on 05:05; Admin Dose 2 MG; Start 05/07/17 at 05:30 Ondansetron HCl 4 mg 4 mg Q6H PRN IV NAUSEA AND/OR VOMITING; Start 05/07/17 at 05:30 Cefepime HCl (Maxipime 1gm/50 ml (Pmx)) 50 ml @ 100 mls/hr Q12 IVPB Last administered on 05/12/17 09:27; Admin Dose 100 MLS/HR; Start 05/07/17 at 12:00 Enoxaparin Sodium (Lovenox) 60 mg Q12 SC Last administered on 05/12/17 09:47; Admin Dose 60 MG; Start 05/07/17 at 12:00 Furosemide (Lasix) 20 mg DAILY GTB Last administered on 05/11/17 08:51; Admin Dose 20 MG; Start 05/08/17 at 09:00 Lansoprazole 30 mg 30 mg DAILY GTB Last administered on 05/12/17 09:27; Admin Dose 30 MG; Start 05/08/17 at 09:00 Dextrose/Sodium Chloride (D5-1/2ns) 1,000 ml @ 80 mls/hr [id number] IV Last administered on 05/11/17 14:18; Admin Dose 80 MLS/HR; Start 05/08/17 at 16:30 Guaifenesin (Robitussin Liquid Cup) 15 mg QID PRN GTB COUGH; Start 05/09/17 at 09:00 Acetaminophen (Tylenol Liquid) 650 mg Q4H PRN GTB PAIN AND OR ELEVATED TEMP Last administered on 05/11/17 20:46; Admin Dose 650 MG; Start 05/10/17 at 13:00 Digoxin (Digoxin) 0.125 mg DAILY NGT Last administered on 05/12/17 09:39; Admin Dose 0.125 MG; Start 05/11/17 at 09:00 Warfarin Sodium (Coumadin) 3 mg DAILY@17 GTB Last administered on 05/11/17 16: 02; Admin Dose 3 MG; Start 05/10/17 at 17:00 Atenolol (Tenormin) 50 mg BID PO Last administered on 05/11/17 20:41; Admin Dose 50 MG; Start 05/10/17 at 21:00 Metoprolol Tartrate (Lopressor) 5 mg Q4H PRN IV HR>110 Hold SBP<100; Start 05/10/17 at 13:30 IV Flush 10 ml 10 ml PRN PRN IV IV PROTOCOL; Start 05/10/17 at 16:30 Vancomycin HCl (Vancocin) 100 ml @ 100 mls/hr Q12H IVPB Last administered on 05/12/17t 05:45; Admin Dose 100 MLS/HR; Start 05/10/17 at 18:30 ALEXIS NAJERA May 12, 2017 13:13
--- NOTE | 2017-05-12 13:19 | CONS ---
Date/Time of Note Date/Time of Note DATE: 05/12/17 TIME: 13:15 Assessment/Plan Assessment/Plan Chief Complaint/Hosp Course IMPRESSION: 1. Atrial fibrillation-mainly rate controlled but still with holding of BB at times 2. History of cardiomyopathy with decreased left ventricular ejection fraction , last study approximately 45% to 50% by echo 01/2017. 3. Congestive heart failure by chest x-ray, systolic and diastolic, acute on chronic. 4. Hypernatremia-improved 5. History of mitral stenosis. 6. History of thalamic infarctions, prior cerebrovascular accident. 7. Urinary tract infection. 8. Dysphagia, status post gastrostomy tube. Recc: -Tele -serial ecg's -Continue atenolol but decrease dose to allow patient to better tolerate -Continue lovenox to comadin and increase dose further -Continue PO lasix and follow volume status closely -Continue abx's and f/u cx data -check cxr Problems: Consultation Date/Type/Reason Admit Date/Time May 07, 2017 at 02:40 Initial Consult Date 05/08/17 Type of Consultation: cardiology Reason for Consultation AF Referring Provider: ROXANA TORO MD Exam/Review of Systems Vital Signs Vitals Vital Signs Date Time Temp Pulse Resp B/P Pulse Ox O2 Delivery O2 Flow Rate FiO2 05/12/17 12:58 2.0 05/12/17 12:20 72 05/12/17 11:40 97.6 21 105/62 100 05/12/17 08:30 Nasal Cannula 05/12/17 08:21 21 Intake and Output 05/11/17 05/11/17 05/12/17 15:00 23:00 07:00 Intake Total 860 ml 800 ml Balance 860 ml 800 ml Exam Review of Systems: CONSTITUTIONAL: No fevers, chills. PULMONARY: No sob CARDIOVASCULAR: No chest pain/palpitations GASTROINTESTINAL: No nausea/vomiting. GENITOURINARY: No hematuria/dysuria. MUSCULOSKELETAL: No myagias/arthalgias. PSYCHIATRIC: The patient denies depression. NEUROLOGIC: lethargic Constitutional: alert Psych: no complaints Head: normocephalic ENMT: mucosa pink and moist Neck: jvd (9 cm water), supple Respiratory: diminished breath sounds (at bases/B) Cardiovascular: irregular rhythm Gastrointestinal: non-tender, soft Musculoskeletal: muscle weakness (generalized) Extremities: pitting pedal edema (trace/B) Neurological: lethargic Results Result Diagram: 05/12/17 0559 05/12/17 0559 Results 24 hrs Laboratory Tests Test 05/12/17 05:59 White Blood Count 8.5 Red Blood Count 3.74 L Hemoglobin 9.9 L Hematocrit 32.2 L Mean Corpuscular Volume 86.1 Mean Corpuscular Hemoglobin 26.5 L Mean Corpuscular Hemoglobin Concent 30.7 L Red Cell Distribution Width 16.3 H Platelet Count 247 Mean Platelet Volume 13.3 H Neutrophils % 70.4 Lymphocytes % 16.2 Monocytes % 8.3 Eosinophils % 3.4 Basophils % 0.9 Nucleated Red Blood Cells % 0.0 Neutrophils # 6.0 Lymphocytes # 1.4 Monocytes # 0.7 Eosinophils # 0.3 Basophils # 0.1 Nucleated Red Blood Cells # 0.0 Prothrombin Time 15.8 H Prothrombin Time Ratio 1.2 INR International Normalized Ratio 1.25 Sodium Level 144 Potassium Level 3.9 Chloride Level 106 Carbon Dioxide Level 28 Anion Gap 14 Blood Urea Nitrogen 18 Creatinine 0.82 Glucose Level 112 Calcium Level 9.0 Magnesium Level 2.1 Medications Medications Current Medications Morphine Sulfate (morphine) 2 mg Q4H PRN IV PAIN Last administered on 05:05; Admin Dose 2 MG; Start 05/07/17 at 05:30 Ondansetron HCl 4 mg 4 mg Q6H PRN IV NAUSEA AND/OR VOMITING; Start 05/07/17 at 05:30 Cefepime HCl (Maxipime 1gm/50 ml (Pmx)) 50 ml @ 100 mls/hr Q12 IVPB Last administered on 05/12/17 09:27; Admin Dose 100 MLS/HR; Start 05/07/17 at 12:00 Enoxaparin Sodium (Lovenox) 60 mg Q12 SC Last administered on 05/12/17 09:47; Admin Dose 60 MG; Start 05/07/17 at 12:00 Furosemide (Lasix) 20 mg DAILY GTB Last administered on 05/11/17 08:51; Admin Dose 20 MG; Start 05/08/17 at 09:00 Lansoprazole 30 mg 30 mg DAILY GTB Last administered on 05/12/17 09:27; Admin Dose 30 MG; Start 05/08/17 at 09:00 Dextrose/Sodium Chloride (D5-1/2ns) 1,000 ml @ 80 mls/hr [id number] IV Last administered on 05/11/17 14:18; Admin Dose 80 MLS/HR; Start 05/08/17 at 16:30 Guaifenesin (Robitussin Liquid Cup) 15 mg QID PRN GTB COUGH; Start 05/09/17 at 09:00 Acetaminophen (Tylenol Liquid) 650 mg Q4H PRN GTB PAIN AND OR ELEVATED TEMP Last administered on 05/11/17 20:46; Admin Dose 650 MG; Start 05/10/17 at 13:00 Digoxin (Digoxin) 0.125 mg DAILY NGT Last administered on 05/12/17 09:39; Admin Dose 0.125 MG; Start 05/11/17 at 09:00 Warfarin Sodium (Coumadin) 3 mg DAILY@17 GTB Last administered on 05/11/17 16: 02; Admin Dose 3 MG; Start 05/10/17 at 17:00 Atenolol (Tenormin) 50 mg BID PO Last administered on 05/11/17 20:41; Admin Dose 50 MG; Start 05/10/17 at 21:00 Metoprolol Tartrate (Lopressor) 5 mg Q4H PRN IV HR>110 Hold SBP<100; Start 05/10/17 at 13:30 IV Flush 10 ml 10 ml PRN PRN IV IV PROTOCOL; Start 05/10/17 at 16:30 Vancomycin HCl (Vancocin) 100 ml @ 100 mls/hr Q12H IVPB Last administered on 05/12/17 05:45; Admin Dose 100 MLS/HR; Start 05/10/17 at 18:30 MINOO REY May 12, 2017 13:19
--- NOTE | 2017-05-12 16:26 | RADRPT ---
PROCEDURE: XR Chest. CLINICAL INDICATION: Shortness of breath. TECHNIQUE: Single frontal view. COMPARISON: 05/10/2017. FINDINGS: There is a left arm PICC line with the tip in the mid superior vena cava. Bilateral interstitial dis ease consistent with pulmonary edema is slightly improved. The lungs are otherwise clear. The heart is enlarged. There is calcification in the aorta consistent with atherosclerosis. There is no pleural effusion. There is no pneumothorax. IMPRESSION: 1. Left arm PICC line tip in the mid superior vena cava. 2. Slightly improved pulmonary edema. 3. Cardiomegaly and atherosclerosis. 4. Otherwise unremarkable chest radiograph. RPTAT: QQ .Catrachito Small MD, MD Date Time Electronically viewed and signed by .Catrachito Small MD, MD on 05/12/2017 16:26 .R/
--- NOTE | 2017-05-12 16:58 | PN ---
Date/Time of Note Date/Time of Note DATE: 05/12/17 TIME: 16:57 Assessment/Plan VTE Prophylaxis VTE Prophylaxis Intervention: SCD's Lines/Catheters IV [facility] ([facility] PICC Line Central line still needed: Yes Urinary Cath still in place: No Assessment/Plan Chief Complaint/Hosp Course Atrial fibrillation at controlled rate, patient remains hemodynamically stable, afebrile. Assessment/Plan - Recurrent sepsis secondary pneumonia and UTI. Dr. Hiro villeda is following in ID consultation. Continue antibiotics per ID. - Atrial fibrillation with rapid ventricular response. Dr. Armenta is following and cardiology consultation. Continue Coumadin, Lovenox, atenolol. - Bilateral thalamic infarctions. - Dysphagia with G-tube. - Mitral stenosis - CHF, continue Lasix, monitor electrolytes - Hx Thrombosis of the bilateral cephalic veins. - History of VRE in urine Further recommendations based on clinical course. Plan of care discussed with Dr. Valdovinos. Problems: Exam/Review of Systems Vital Signs Vitals Vital Signs Date Time Temp Pulse Resp B/P Pulse Ox O2 Delivery O2 Flow Rate FiO2 05/12/17 16:44 98.2 107 18 106/67 98 05/12/17 13:48 21 05/12/17 12:58 2.0 05/12/17 08:30 Nasal Cannula Intake and Output 05/11/17 05/11/17 05/12/17 15:00 23:00 07:00 Intake Total 860 ml 800 ml Balance 860 ml 800 ml Exam Constitutional: alert, oriented Respiratory: diminished breath sounds Cardiovascular: irregular rhythm Gastrointestinal: non-tender, other (G-tube), soft Neurological: nl mental status, other (Bilateral extremities weakness secondary to bilateral thalamic stroke) Results Result Diagram: 05/12/17 0559 05/12/17 0559 Results 24 hrs Laboratory Tests Test 05/12/17 05:59 White Blood Count 8.5 Red Blood Count 3.74 L Hemoglobin 9.9 L Hematocrit 32.2 L Mean Corpuscular Volume 86.1 Mean Corpuscular Hemoglobin 26.5 L Mean Corpuscular Hemoglobin Concent 30.7 L Red Cell Distribution Width 16.3 H Platelet Count 247 Mean Platelet Volume 13.3 H Neutrophils % 70.4 Lymphocytes % 16.2 Monocytes % 8.3 Eosinophils % 3.4 Basophils % 0.9 Nucleated Red Blood Cells % 0.0 Neutrophils # 6.0 Lymphocytes # 1.4 Monocytes # 0.7 Eosinophils # 0.3 Basophils # 0.1 Nucleated Red Blood Cells # 0.0 Prothrombin Time 15.8 H Prothrombin Time Ratio 1.2 INR International Normalized Ratio 1.25 Sodium Level 144 Potassium Level 3.9 Chloride Level 106 Carbon Dioxide Level 28 Anion Gap 14 Blood Urea Nitrogen 18 Creatinine 0.82 Glucose Level 112 Calcium Level 9.0 Magnesium Level 2.1 Medications Medications Current Medications Morphine Sulfate (morphine) 2 mg Q4H PRN IV PAIN Last administered on 05:05; Admin Dose 2 MG; Start 05/07/17 at 05:30 Ondansetron HCl 4 mg 4 mg Q6H PRN IV NAUSEA AND/OR VOMITING; Start 05/07/17 at 05:30 Cefepime HCl (Maxipime 1gm/50 ml (Pmx)) 50 ml @ 100 mls/hr Q12 IVPB Last administered on 05/12/17 09:27; Admin Dose 100 MLS/HR; Start 05/07/17 at 12:00 Enoxaparin Sodium (Lovenox) 60 mg Q12 SC Last administered on 05/12/17 09:47; Admin Dose 60 MG; Start 05/07/17 at 12:00 Furosemide (Lasix) 20 mg DAILY GTB Last administered on 05/11/17 08:51; Admin Dose 20 MG; Start 05/08/17 at 09:00 Lansoprazole 30 mg 30 mg DAILY GTB Last administered on 05/12/17 09:27; Admin Dose 30 MG; Start 05/08/17 at 09:00 Dextrose/Sodium Chloride (D5-1/2ns) 1,000 ml @ 80 mls/hr [id number] IV Last administered on 05/11/17 14:18; Admin Dose 80 MLS/HR; Start 05/08/17 at 16:30 Guaifenesin (Robitussin Liquid Cup) 15 mg QID PRN GTB COUGH; Start 05/09/17 at 09:00 Acetaminophen (Tylenol Liquid) 650 mg Q4H PRN GTB PAIN AND OR ELEVATED TEMP Last administered on 05/11/17 20:46; Admin Dose 650 MG; Start 05/10/17 at 13:00 Digoxin (Digoxin) 0.125 mg DAILY NGT Last administered on 05/12/17 09:39; Admin Dose 0.125 MG; Start 05/11/17 at 09:00 Metoprolol Tartrate (Lopressor) 5 mg Q4H PRN IV HR>110 Hold SBP<100; Start 05/10/17 at 13:30 IV Flush 10 ml 10 ml PRN PRN IV IV PROTOCOL; Start 05/10/17 at 16:30 Vancomycin HCl (Vancocin) 100 ml @ 100 mls/hr Q12H IVPB Last administered on 05/12/17 05:45; Admin Dose 100 MLS/HR; Start 05/10/17 at 18:30 Atenolol (Tenormin) 25 mg BID PO ; Start 05/12/17 at 21:00 Warfarin Sodium (Coumadin) 4 mg DAILY@17 GTB ; Start 05/12/17 at 17:00 LAWRENCE PICKERING May 12, 2017 16:58
[2017-05-12] MEDS: WARFARIN 2 MG TAB GTB SCH (18:26)
--- NOTE | 2017-05-12 22:15 | RADRPT ---
PROCEDURE: XR Chest. CLINICAL INDICATION: PICC line removal. TECHNIQUE: Single frontal view. COMPARISON: Prior study done earlier the same day. FINDINGS: Bilateral interstitial disease consistent with pulmonary edema is unchanged. The lungs are otherwise clear. The heart is enlarged. There is calcification in the aorta consistent with atherosclerosis. The left arm PICC line has been removed. There is no pleural effusion. There is no pneumothorax. IMPRESSION: 1. Left arm PICC line removed. 2. Otherwise no change from the prior chest radiograph done earlier the same day. RPTAT: QQ .Catrachito Small MD, MD Date Time Electronically viewed and signed by .Catrachito Small MD, on 05/12/2017 22:15 .R/
[2017-05-13] VITALS (13 sets, daily range): BP systolic 98–134; BP diastolic 45–92; PULSE 64–91; RESP 17–20
[2017-05-13] MEDS: LEVALBUTEROL (NEB) 0.63 MG/3 ML AMP HHN SCH ×4 (02:00→21:30)
[2017-05-13] MEDS: VANCOMYCIN 500MG/NS (PMX) 100 ML IVPB SCH ×2 (06:15→12:47)
[2017-05-13 08:25] LABS: ABNORMAL IP MESSAGE 1; BASOPHIL # 0.1 10^3/ul (0.0-0.1); BASOPHILS % 1.3 % (0.0-2.0); EOSINOPHILS # 0.3 10^3/ul (0.0-0.5); EOSINOPHILS % 3.4 % (0.0-7.0); HEMATOCRIT 34.2 % (37.0-47.0); HEMOGLOBIN 10.6 g/dl (12.0-16.0); LYMPHOCYTES # 1.4 10^3/ul (0.8-2.9); LYMPHOCYTES % 15.4 % (15.0-51.0); MEAN CORPUSCULAR HEMOGLOBIN 26.4 pg (29.0-33.0); MEAN CORPUSCULAR VOLUME 85.1 fl (82.0-101.0); MEAN PLATELET VOLUME 13.3 fl (7.4-10.4); MONOCYTE # 0.8 10^3/ul (0.3-0.9); MONOCYTES % 8.7 % (0.0-11.0); NEUTROPHIL # 6.6 10^3/ul (1.6-7.5); NEUTROPHILS % 70.7 % (39.0-77.0); PLATELET COUNT 299 10^3/UL (140-415); RED BLOOD COUNT 4.02 10^6/ul (4.20-5.40); RED CELL DISTRIBUTION WIDTH 16.5 % (11.5-14.5); WHITE BLOOD COUNT 9.4 10^3/ul (4.8-10.8)
[2017-05-13 08:42] LABS: POSITIVE DIFF @See below
[2017-05-13 08:48] LABS: INR 1.22; PROTIME 15.5 Sec (12.2-14.2); PT RATIO 1.2
[2017-05-13] MEDS: DIGOXIN 0.125 MG TAB NGT SCH (08:48)
[2017-05-13] MEDS: ATENOLOL 50 MG TAB PO SCH ×2 (08:48→21:00)
[2017-05-13] MEDS: FUROSEMIDE 20 MG TAB GTB SCH (08:48)
[2017-05-13] MEDS: DEXTROSE 5%-0.45% NACL 1,000 ML IV SCH ×2 (08:49→21:26)
[2017-05-13] MEDS: LANSOPRAZOLE 30 MG CAP GTB SCH (08:49)
[2017-05-13 08:51] LABS: CALCIUM 9.9 mg/dl (8.4-10.2); CREATININE 0.78 mg/dl (0.44-1.00); POTASSIUM 4.1 mmol/L (3.5-5.1)
[2017-05-13] MEDS: ENOXAPARIN 60 MG/0.6 ML SYG SC SCH ×2 (08:57→21:21)
[2017-05-13] MEDS: CEFEPIME 1GM/50 ML (PMX) 50 ML IVPB SCH ×2 (10:09→21:17)
--- NOTE | 2017-05-13 16:08 | PN ---
Date/Time of Note Date/Time of Note DATE: 05/13/17 TIME: 16:05 Assessment/Plan VTE Prophylaxis VTE Prophylaxis Intervention: other Lines/Catheters IV [facility] Peripheral IV Assessment/Plan Assessment/Plan - Recurrent sepsis secondary pneumonia and UTI. Dr. Hiro villeda is following in ID consultation. Continue antibiotics per ID. - Atrial fibrillation with rapid ventricular response. Dr. Armenta is following and cardiology consultation. Continue Coumadin, Lovenox, atenolol. - Bilateral thalamic infarctions. - Dysphagia with G-tube. - Mitral stenosis - CHF, continue Lasix, monitor electrolytes - Hx Thrombosis of the bilateral cephalic veins. - History of VRE in urine Further recommendations based on clinical course. Plan of care discussed with Dr. Valdovinos. Subjective 24 Hr Interval Summary Free Text/Dictation afebrile, wbc wnl, Atrial fibrillation at controlled rate - dw staff Respiratory: no complaints Exam/Review of Systems Vital Signs Vitals Vital Signs Date Time Temp Pulse Resp B/P Pulse Ox O2 Delivery O2 Flow Rate FiO2 05/13/17 14:57 97.7 75 20 104/57 97 05/13/17 13:34 21 05/12/17 20:00 Nasal Cannula 2.0 Intake and Output 05/12/17 05/12/17 05/13/17 15:00 23:00 07:00 Intake Total 50 ml 860 ml Balance 50 ml 860 ml Exam Constitutional: alert Respiratory: diminished breath sounds, normal air movement Cardiovascular: nl pulses, other (controlled - afib) Gastrointestinal: non-tender, other, soft Musculoskeletal: nl extremities to inspection Results Result Diagram: 05/13/17 0744 05/13/17 0744 Results 24 hrs Laboratory Tests Test 05/13/17 07:44 White Blood Count 9.4 Red Blood Count 4.02 L Hemoglobin 10.6 L Hematocrit 34.2 L Mean Corpuscular Volume 85.1 Mean Corpuscular Hemoglobin 26.4 L Mean Corpuscular Hemoglobin Concent 31.0 L Red Cell Distribution Width 16.5 H Platelet Count 299 # Mean Platelet Volume 13.3 H Neutrophils % 70.7 Lymphocytes % 15.4 Monocytes % 8.7 Eosinophils % 3.4 Basophils % 1.3 Nucleated Red Blood Cells % 0.0 Neutrophils # 6.6 Lymphocytes # 1.4 Monocytes # 0.8 Eosinophils # 0.3 Basophils # 0.1 Nucleated Red Blood Cells # 0.0 Prothrombin Time 15.5 H Prothrombin Time Ratio 1.2 INR International Normalized Ratio 1.22 Sodium Level 144 Potassium Level 4.1 Chloride Level 108 Carbon Dioxide Level 27 Anion Gap 13 Blood Urea Nitrogen 21 H Creatinine 0.78 Glucose Level 107 Calcium Level 9.9 Medications Medications Current Medications Morphine Sulfate (morphine) 2 mg Q4H PRN IV PAIN Last administered on 05:05; Admin Dose 2 MG; Start 05/07/17 at 05:30 Ondansetron HCl 4 mg 4 mg Q6H PRN IV NAUSEA AND/OR VOMITING; Start 05/07/17 at 05:30 Cefepime HCl (Maxipime 1gm/50 ml (Pmx)) 50 ml @ 100 mls/hr Q12 IVPB Last administered on 05/13/17 10:09; Admin Dose 100 MLS/HR; Start 05/07/17 at 12:00 Enoxaparin Sodium (Lovenox) 60 mg Q12 SC Last administered on 05/13/17 08:57; Admin Dose 60 MG; Start 05/07/17 at 12:00 Furosemide (Lasix) 20 mg DAILY GTB Last administered on 05/13/17 08:48; Admin Dose 20 MG; Start 05/08/17 at 09:00 Lansoprazole 30 mg 30 mg DAILY GTB Last administered on 05/13/17 08:49; Admin Dose 30 MG; Start 05/08/17 at 09:00 Dextrose/Sodium Chloride (D5-1/2ns) 1,000 ml @ 80 mls/hr [id number] IV Last administered on 05/11/17 14:18; Admin Dose 80 MLS/HR; Start 05/08/17 at 16:30 Guaifenesin (Robitussin Liquid Cup) 15 mg QID PRN GTB COUGH; Start 05/09/17 at 09:00 Acetaminophen (Tylenol Liquid) 650 mg Q4H PRN GTB PAIN AND OR ELEVATED TEMP Last administered on 05/11/17 20:46; Admin Dose 650 MG; Start 05/10/17 at 13:00 Digoxin (Digoxin) 0.125 mg DAILY NGT Last administered on 05/13/17 08:48; Admin Dose 0.125 MG; Start 05/11/17 at 09:00 Metoprolol Tartrate (Lopressor) 5 mg Q4H PRN IV HR>110 Hold SBP<100; Start 05/10/17 at 13:30 IV Flush (NS 10 ml) 10 ml PRN PRN IV IV PROTOCOL; Start 05/10/17 at 16:30 Atenolol (Tenormin) 25 mg BID PO Last administered on 05/13/17 08:48; Admin Dose 25 MG; Start 05/12/17 at 21:00 Warfarin Sodium 4 mg 4 mg DAILY@17 GTB Last administered on 05/12/17 18:26; Admin Dose 4 MG; Start 05/12/17 at 17:00 Vancomycin HCl (Vancocin) 100 ml @ 50 mls/hr Q12H IVPB Last administered on 12:47; Admin Dose 50 MLS/HR; Start 05/13/17 at 12:00 ALEXIS NAJERA May 13, 2017 16:08
[2017-05-13] MEDS: WARFARIN 2 MG TAB GTB SCH (17:23)
--- NOTE | 2017-05-13 18:26 | CONS ---
Date/Time of Note Date/Time of Note DATE: 05/13/17 TIME: 18:20 Assessment/Plan Assessment/Plan Chief Complaint/Hosp Course IMPRESSION: 1. Atrial fibrillation-mainly rate controlled 2. History of cardiomyopathy with decreased left ventricular ejection fraction , last study approximately 45% to 50% by echo 01/2017. 3. Congestive heart failure by chest x-ray, systolic and diastolic, acute on chronic. 4. Hypernatremia-improved 5. History of mitral stenosis. 6. History of thalamic infarctions, prior cerebrovascular accident. 7. Urinary tract infection. 8. Dysphagia, status post gastrostomy tube. Recc: -Tele -serial ecg's -Continue atenolol -Continue lovenox to coumadin s/p increase dose -Continue PO lasix and follow volume status closely -Continue abx's and f/u cx data Problems: Consultation Date/Type/Reason Admit Date/Time May 07, 2017 at 02:40 Initial Consult Date 05/08/17 Type of Consultation: cardiology Reason for Consultation AF Referring Provider: ROXANA TORO MD Exam/Review of Systems Vital Signs Vitals Vital Signs Date Time Temp Pulse Resp B/P Pulse Ox O2 Delivery O2 Flow Rate FiO2 05/13/17 16:32 83 05/13/17 14:57 97.7 20 104/57 97 05/13/17 13:34 21 05/12/17 20:00 Nasal Cannula 2.0 Intake and Output 05/12/17 05/12/17 05/13/17 14:59 22:59 06:59 Intake Total 50 ml Balance 50 ml Exam Review of Systems: CONSTITUTIONAL: No fevers, chills. PULMONARY: No sob CARDIOVASCULAR: No chest pain/palpitations GASTROINTESTINAL: No nausea/vomiting. GENITOURINARY: No hematuria/dysuria. MUSCULOSKELETAL: No myagias/arthalgias. PSYCHIATRIC: The patient denies depression. NEUROLOGIC: lethargic Constitutional: alert, oriented Psych: no complaints Head: normocephalic ENMT: mucosa pink and moist Neck: jvd (9 cm water), supple Respiratory: diminished breath sounds Cardiovascular: regular rate and rhythm Gastrointestinal: non-tender, soft Musculoskeletal: muscle tone (normal) Extremities: edema (none) Neurological: other (no focal deficits) Results Result Diagram: 05/13/17 0744 05/13/17 0744 Results 24 hrs Laboratory Tests Test 05/13/17 07:44 White Blood Count 9.4 Red Blood Count 4.02 L Hemoglobin 10.6 L Hematocrit 34.2 L Mean Corpuscular Volume 85.1 Mean Corpuscular Hemoglobin 26.4 L Mean Corpuscular Hemoglobin Concent 31.0 L Red Cell Distribution Width 16.5 H Platelet Count 299 # Mean Platelet Volume 13.3 H Neutrophils % 70.7 Lymphocytes % 15.4 Monocytes % 8.7 Eosinophils % 3.4 Basophils % 1.3 Nucleated Red Blood Cells % 0.0 Neutrophils # 6.6 Lymphocytes # 1.4 Monocytes # 0.8 Eosinophils # 0.3 Basophils # 0.1 Nucleated Red Blood Cells # 0.0 Prothrombin Time 15.5 H Prothrombin Time Ratio 1.2 INR International Normalized Ratio 1.22 Sodium Level 144 Potassium Level 4.1 Chloride Level 108 Carbon Dioxide Level 27 Anion Gap 13 Blood Urea Nitrogen 21 H Creatinine 0.78 Glucose Level 107 Calcium Level 9.9 Medications Medications Current Medications Morphine Sulfate (morphine) 2 mg Q4H PRN IV PAIN Last administered on 05:05; Admin Dose 2 MG; Start 05/07/17 at 05:30 Ondansetron HCl 4 mg 4 mg Q6H PRN IV NAUSEA AND/OR VOMITING; Start 05/07/17 at 05:30 Cefepime HCl (Maxipime 1gm/50 ml (Pmx)) 50 ml @ 100 mls/hr Q12 IVPB Last administered on 05/13/17 10:09; Admin Dose 100 MLS/HR; Start 05/07/17 at 12:00 Enoxaparin Sodium (Lovenox) 60 mg Q12 SC Last administered on 05/13/17 08:57; Admin Dose 60 MG; Start 05/07/17 at 12:00 Furosemide (Lasix) 20 mg DAILY GTB Last administered on 05/13/17 08:48; Admin Dose 20 MG; Start 05/08/17 at 09:00 Lansoprazole 30 mg 30 mg DAILY GTB Last administered on 05/13/17 08:49; Admin Dose 30 MG; Start 05/08/17 at 09:00 Dextrose/Sodium Chloride (D5-1/2ns) 1,000 ml @ 80 mls/hr [id number] IV Last administered on 05/11/17 14:18; Admin Dose 80 MLS/HR; Start 05/08/17 at 16:30 Guaifenesin (Robitussin Liquid Cup) 15 mg QID PRN GTB COUGH; Start 05/09/17 at 09:00 Acetaminophen (Tylenol Liquid) 650 mg Q4H PRN GTB PAIN AND OR ELEVATED TEMP Last administered on 05/11/17 20:46; Admin Dose 650 MG; Start 05/10/17 at 13:00 Digoxin (Digoxin) 0.125 mg DAILY NGT Last administered on 05/13/17 08:48; Admin Dose 0.125 MG; Start 05/11/17 at 09:00 Metoprolol Tartrate (Lopressor) 5 mg Q4H PRN IV HR>110 Hold SBP<100; Start 05/10/17 at 13:30 IV Flush (NS 10 ml) 10 ml PRN PRN IV IV PROTOCOL; Start 05/10/17 at 16:30 Atenolol (Tenormin) 25 mg BID PO Last administered on 05/13/17 08:48; Admin Dose 25 MG; Start 05/12/17 at 21:00 Warfarin Sodium 4 mg 4 mg DAILY@17 GTB Last administered on 05/13/17 17:23; Admin Dose 4 MG; Start 05/12/17 at 17:00 Vancomycin HCl (Vancocin) 100 ml @ 50 mls/hr Q12H IVPB Last administered on 12:47; Admin Dose 50 MLS/HR; Start 05/13/17 at 12:00 MINOO REY 9, 2017 18:26
--- NOTE | 2017-05-13 20:35 | CONS ---
Date/Time of Note Date/Time of Note DATE: 05/13/17 TIME: 20:34 Assessment/Plan Assessment/Plan Chief Complaint/Hosp Course 1. Hcap 2. hx of recent admit for pna/ut 3 hx of vre uti, history of bilateral thalamic infarcts with residual weakness, atrial fibrillation and atrial flutter history of DVT, hypertension, CHF, dysphagia with G-tube placement,urinary retention. R: serial cxr sputum procalc complete 7 days empiric abx will follow closely with you Problems: Consultation Date/Type/Reason Admit Date/Time May 07, 2017 at 02:40 Initial Consult Date 05/08/17 Type of Consultation: id Referring Provider: ROXANA TORO MD Exam/Review of Systems Vital Signs Vitals Vital Signs Date Time Temp Pulse Resp B/P Pulse Ox O2 Delivery O2 Flow Rate FiO2 05/13/17 19:53 98.7 80 18 98/56 96 05/13/17 13:34 21 05/12/17 20:00 Nasal Cannula 2.0 Intake and Output 05/12/17 05/12/17 05/13/17 15:00 23:00 07:00 Intake Total 50 ml 860 ml Balance 50 ml 860 ml Exam Constitutional: alert, oriented, well developed Results Result Diagram: 05/13/17 0744 05/13/17 0744 Results 24 hrs Laboratory Tests Test 05/13/17 07:44 White Blood Count 9.4 Red Blood Count 4.02 L Hemoglobin 10.6 L Hematocrit 34.2 L Mean Corpuscular Volume 85.1 Mean Corpuscular Hemoglobin 26.4 L Mean Corpuscular Hemoglobin Concent 31.0 L Red Cell Distribution Width 16.5 H Platelet Count 299 # Mean Platelet Volume 13.3 H Neutrophils % 70.7 Lymphocytes % 15.4 Monocytes % 8.7 Eosinophils % 3.4 Basophils % 1.3 Nucleated Red Blood Cells % 0.0 Neutrophils # 6.6 Lymphocytes # 1.4 Monocytes # 0.8 Eosinophils # 0.3 Basophils # 0.1 Nucleated Red Blood Cells # 0.0 Prothrombin Time 15.5 H Prothrombin Time Ratio 1.2 INR International Normalized Ratio 1.22 Sodium Level 144 Potassium Level 4.1 Chloride Level 108 Carbon Dioxide Level 27 Anion Gap 13 Blood Urea Nitrogen 21 H Creatinine 0.78 Glucose Level 107 Calcium Level 9.9 Medications Medications Current Medications Morphine Sulfate (morphine) 2 mg Q4H PRN IV PAIN Last administered on 05:05; Admin Dose 2 MG; Start 05/07/17 at 05:30 Ondansetron HCl 4 mg 4 mg Q6H PRN IV NAUSEA AND/OR VOMITING; Start 05/07/17 at 05:30 Cefepime HCl (Maxipime 1gm/50 ml (Pmx)) 50 ml @ 100 mls/hr Q12 IVPB Last administered on 05/13/17 10:09; Admin Dose 100 MLS/HR; Start 05/07/17 at 12:00 Enoxaparin Sodium (Lovenox) 60 mg Q12 SC Last administered on 05/13/17 08:57; Admin Dose 60 MG; Start 05/07/17 at 12:00 Furosemide (Lasix) 20 mg DAILY GTB Last administered on 05/13/17 08:48; Admin Dose 20 MG; Start 05/08/17 at 09:00 Lansoprazole 30 mg 30 mg DAILY GTB Last administered on 05/13/17 08:49; Admin Dose 30 MG; Start 05/08/17 at 09:00 Dextrose/Sodium Chloride (D5-1/2ns) 1,000 ml @ 80 mls/hr [id number] IV Last administered on 05/11/17 14:18; Admin Dose 80 MLS/HR; Start 05/08/17 at 16:30 Guaifenesin (Robitussin Liquid Cup) 15 mg QID PRN GTB COUGH; Start 05/09/17 at 09:00 Acetaminophen (Tylenol Liquid) 650 mg Q4H PRN GTB PAIN AND OR ELEVATED TEMP Last administered on 05/11/17 20:46; Admin Dose 650 MG; Start 05/10/17 at 13:00 Digoxin (Digoxin) 0.125 mg DAILY NGT Last administered on 05/13/17 08:48; Admin Dose 0.125 MG; Start 05/11/17 at 09:00 Metoprolol Tartrate (Lopressor) 5 mg Q4H PRN IV HR>110 Hold SBP<100; Start 05/10/17 at 13:30 IV Flush (NS 10 ml) 10 ml PRN PRN IV IV PROTOCOL; Start 05/10/17 at 16:30 Atenolol (Tenormin) 25 mg BID PO Last administered on 05/13/17 08:48; Admin Dose 25 MG; Start 05/12/17 at 21:00 Warfarin Sodium 4 mg 4 mg DAILY@17 GTB Last administered on 05/13/17 17:23; Admin Dose 4 MG; Start 05/12/17 at 17:00 Vancomycin HCl (Vancocin) 100 ml @ 50 mls/hr Q12H IVPB Last administered on 12:47; Admin Dose 50 MLS/HR; Start 05/13/17 at 12:00 SHELBY SHUKLA MD May 13, 2017 20:35
[2017-05-14] VITALS (11 sets, daily range): BP systolic 91–125; BP diastolic 52–79; PULSE 58–166; RESP 17–19
[2017-05-14] MEDS: VANCOMYCIN 500MG/NS (PMX) 100 ML IVPB SCH ×2 (00:37→11:58)
[2017-05-14] MEDS: LEVALBUTEROL (NEB) 0.63 MG/3 ML AMP HHN SCH ×4 (01:36→20:24)
[2017-05-14 07:40] LABS: ABNORMAL IP MESSAGE 1; BASOPHIL # 0.1 10^3/ul (0.0-0.1); EOSINOPHILS # 0.3 10^3/ul (0.0-0.5); EOSINOPHILS % 3.3 % (0.0-7.0); HEMATOCRIT 34.4 % (37.0-47.0); HEMOGLOBIN 10.6 g/dl (12.0-16.0); LYMPHOCYTES # 1.2 10^3/ul (0.8-2.9); LYMPHOCYTES % 11.9 % (15.0-51.0); MEAN CORPUSCULAR HEMOGLOBIN 26.4 pg (29.0-33.0); MEAN CORPUSCULAR HGB CONC 30.8 g/dl (32.0-37.0); MEAN CORPUSCULAR VOLUME 85.6 fl (82.0-101.0); MEAN PLATELET VOLUME 13.3 fl (7.4-10.4); MONOCYTE # 0.8 10^3/ul (0.3-0.9); MONOCYTES % 8.2 % (0.0-11.0); NEUTROPHIL # 7.3 10^3/ul (1.6-7.5); PLATELET COUNT 292 10^3/UL (140-415); RED BLOOD COUNT 4.02 10^6/ul (4.20-5.40); RED CELL DISTRIBUTION WIDTH 16.4 % (11.5-14.5); WHITE BLOOD COUNT 9.8 10^3/ul (4.8-10.8)
[2017-05-14 07:43] LABS: POSITIVE DIFF @See below
[2017-05-14 08:06] LABS: CALCIUM 9.3 mg/dl (8.4-10.2); CREATININE 0.78 mg/dl (0.44-1.00); POTASSIUM 4.2 mmol/L (3.5-5.1)
[2017-05-14 08:08] LABS: INR 1.28; PROTIME 16.1 Sec (12.2-14.2); PT RATIO 1.3
[2017-05-14] MEDS: LANSOPRAZOLE 30 MG CAP GTB SCH (08:58)
[2017-05-14] MEDS: FUROSEMIDE 20 MG TAB GTB SCH (08:58)
[2017-05-14] MEDS: DIGOXIN 0.125 MG TAB NGT SCH (08:59)
[2017-05-14] MEDS: ATENOLOL 50 MG TAB PO SCH ×2 (08:59→20:31)
[2017-05-14] MEDS: CEFEPIME 1GM/50 ML (PMX) 50 ML IVPB SCH (09:00)
[2017-05-14] MEDS: DEXTROSE 5%-0.45% NACL 1,000 ML IV SCH ×2 (09:06→22:30)
[2017-05-14] MEDS: ENOXAPARIN 60 MG/0.6 ML SYG SC SCH ×2 (09:20→20:36)
--- NOTE | 2017-05-14 13:02 | CONS ---
Date/Time of Note Date/Time of Note DATE: 05/14/17 TIME: 12:56 Assessment/Plan Assessment/Plan Chief Complaint/Hosp Course - HCAP -s/p empiric vanco & cefepime - UTI due to klebsiella - treated with cefepime - A fib with RVR - HR improved - H/o recurrent CVA/bilateral thalami, cerebral peduncles, periaqueductal midbrain and caroline with residual weakness - Dysphagia s/p PEG - H/o DVT - H/o recent sepsis prob d/t aspiration PNA/pneumonitis or bronchitis 04/2017 - H/o recent VRE in urine with no significant pyuria 04/25/17 - H/o sepsis due to bacteremia and UTI - H/o enterococcus bacteremia, tip of PICC grew Group B strep. Transthoracic echo on 01/16/2017, 03/25/2017 did not reveal valvular vegetation but difficult to assess MV. Pt was supposed to take an empiric course of endocarditis through 04/23/2017; Pt's said that she had completed antibiotics on 04/24/2017 - H/o rheumatic heart disease (probable rheumatic, severe MS on transthoracic echo) - H/o recurrent UTI/CA-UTI (E. coli 03/21/17, proteus 02/11/17, C. glabrata 02/09/17 ) - H/o diffuse moderate degree of gastritis s/p EGD 02/15/2017 - H/o gastritis due to H. 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 CSF from 01/19/2017: WBC=3, RBC=0, glu 53, pro= 61, CSF ([place] serology negative, HSV negative, cocci CF negative, encephalitis meningitis panel could not be done due to a lack of sample), serum ([place] PCR negative, crypto antigen negative, cocci CF negative, histo CF negative). - H/o MARIELA - H/o LLE ischemia s/p thrombolysis and subsequent open thrombectomy and fasciotomy at [facility] 09/2015 - H/o thrombus on DEBBIE per records from [facility] Recommendations: - discontinue empiric vancomycin and cefepime (05/07/2017-) and monitor closely off antibiotics Management d/w patient, her , son Juan via telephone, NARESH Anaya, and Dr. Bosch Problems: Consultation Date/Type/Reason Admit Date/Time May 07, 2017 at 02:40 Initial Consult Date 05/08/17 Type of Consultation: Infectious Disease Referring Provider: ROXANA TORO MD 24 HR Interval Summary Free Text/Dictation Pt pulled out PICC the other day; remains afebrile; no acute issues; looking for placement per d/w nursing staff. C/o mild RANDOLPH and discomfort r/t HL on R hand. Denies SOB, n/v/d, dysuria. Pt's son Juan via telephone had multiple questions; appreciative of care. Exam/Review of Systems Vital Signs Vitals Vital Signs Date Time Temp Pulse Resp B/P Pulse Ox O2 Delivery O2 Flow Rate FiO2 05/14/17 12:00 78 05/14/17 11:06 97.2 17 102/52 100 05/14/17 08:42 21 05/12/17 20:00 Nasal Cannula 2.0 Intake and Output 05/13/17 05/13/17 05/14/17 15:00 23:00 07:00 Intake Total 150 ml 920 ml Balance 150 ml 920 ml Exam Constitutional: alert, oriented, well developed, other (using supplement O2 via NC at 2L) Head: atraumatic, normocephalic Eyes: nl sclera, other (mild ptosis of L eye -unchanged) Neck: supple Respiratory: diminished breath sounds Cardiovascular: irregular rhythm Gastrointestinal: soft, non-tender, other (GT intact) Genitourinary - Female: other (no Lees) Musculoskeletal: nl extremities to inspection Extremities: normal pulses, No edema Neurological: other (+tracking, Icelandic speaking, somewhat slow to respond; ESTEVEZ ) Skin: nl turgor Results Result Diagram: 05/14/1771205/14/17712 Results 24 hrs Laboratory Tests Test 05/14/17 07:13 White Blood Count 9.8 Red Blood Count 4.02 L Hemoglobin 10.6 L Hematocrit 34.4 L Mean Corpuscular Volume 85.6 Mean Corpuscular Hemoglobin 26.4 L Mean Corpuscular Hemoglobin Concent 30.8 L Red Cell Distribution Width 16.4 H Platelet Count 292 Mean Platelet Volume 13.3 H Neutrophils % 75.0 Lymphocytes % 11.9 L Monocytes % 8.2 Eosinophils % 3.3 Basophils % 1.0 Nucleated Red Blood Cells % 0.0 Neutrophils # 7.3 Lymphocytes # 1.2 Monocytes # 0.8 Eosinophils # 0.3 Basophils # 0.1 Nucleated Red Blood Cells # 0.0 Prothrombin Time 16.1 H Prothrombin Time Ratio 1.3 INR International Normalized Ratio 1.28 Sodium Level 142 Potassium Level 4.2 Chloride Level 105 Carbon Dioxide Level 26 Anion Gap 15 Blood Urea Nitrogen 22 H Creatinine 0.78 Glucose Level 111 Calcium Level 9.3 Medications Medications Current Medications Morphine Sulfate (morphine) 2 mg Q4H PRN IV PAIN Last administered on 05:05; Admin Dose 2 MG; Start 05/07/17 at 05:30 Ondansetron HCl 4 mg 4 mg Q6H PRN IV NAUSEA AND/OR VOMITING; Start 05/07/17 at 05:30 Cefepime HCl (Maxipime 1gm/50 ml (Pmx)) 50 ml @ 100 mls/hr Q12 IVPB Last administered on 05/14/17 09:00; Admin Dose 100 MLS/HR; Start 05/07/17 at 12:00 Enoxaparin Sodium (Lovenox) 60 mg Q12 SC Last administered on 05/14/17 09:20 ; Admin Dose 60 MG; Start 05/07/17 at 12:00 Furosemide (Lasix) 20 mg DAILY GTB Last administered on 05/14/17 08:58; Admin Dose 20 MG; Start 05/08/17 at 09:00 Lansoprazole 30 mg 30 mg DAILY GTB Last administered on 05/14/17 08:58; Admin Dose 30 MG; Start 05/08/17 at 09:00 Dextrose/Sodium Chloride (D5-1/2ns) 1,000 ml @ 80 mls/hr [id number] IV Last administered on 05/14/17 09:06; Admin Dose 80 MLS/HR; Start 05/08/17 at 16:30 Guaifenesin (Robitussin Liquid Cup) 15 mg QID PRN GTB COUGH; Start 05/09/17 at 09:00 Acetaminophen (Tylenol Liquid) 650 mg Q4H PRN GTB PAIN AND OR ELEVATED TEMP Last administered on 05/11/17 20:46; Admin Dose 650 MG; Start 05/10/17 at 13:00 Digoxin (Digoxin) 0.125 mg DAILY NGT Last administered on 05/14/17 08:59; Admin Dose 0.125 MG; Start 05/11/17 at 09:00 Metoprolol Tartrate (Lopressor) 5 mg Q4H PRN IV HR>110 Hold SBP<100; Start 05/10/17 at 13:30 IV Flush (NS 10 ml) 10 ml PRN PRN IV IV PROTOCOL; Start 05/10/17 at 16:30 Atenolol (Tenormin) 25 mg BID PO Last administered on 05/14/17 08:59; Admin Dose 25 MG; Start 05/12/17 at 21:00 Warfarin Sodium 4 mg 4 mg DAILY@17 GTB Last administered on 05/13/17 17:23; Admin Dose 4 MG; Start 05/12/17 at 17:00 Vancomycin HCl (Vancocin) 100 ml @ 50 mls/hr Q12H IVPB Last administered on 11:58; Admin Dose 50 MLS/HR; Start 05/13/17 at 12:00 Procedures Procedures CXR 05/12/2017: FINDINGS: Bilateral interstitial disease consistent with pulmonary edema is unchanged. The lungs are otherwise clear. The heart is enlarged. There is calcification in the aorta consistent with atherosclerosis. The left arm PICC line has been removed. There is no pleural effusion. There is no pneumothorax. IMPRESSION: 1. Left arm PICC line removed. 2. Otherwise no change from the prior chest radiograph done earlier the same day. GIRISH SCHMITZ NP May 14, 2017 13:02
--- NOTE | 2017-05-14 13:17 | CONS ---
Date/Time of Note Date/Time of Note DATE: 05/14/17 TIME: 13:14 Assessment/Plan Assessment/Plan Additional Assessment/Plan 1. Atrial fibrillation-mainly rate controlled - no intervention planned. 2. History of cardiomyopathy with decreased left ventricular ejection fraction , last study approximately 45% to 50% by echo 01/2017. 3. Congestive heart failure by chest x-ray, systolic and diastolic, acute on chronic - stable fluid status now. 4. Hypernatremia-improved 5. History of mitral stenosis- no intervention planned now. 6. History of thalamic infarctions, prior cerebrovascular accident. 7. Urinary tract infection- completed anti-Bx, held now - will follow with ID. 8. Dysphagia, status post gastrostomy tube. Consultation Date/Type/Reason Admit Date/Time May 07, 2017 at 02:40 Initial Consult Date 05/08/17 Type of Consultation: Infectious Disease Referring Provider: ROXANA TORO MD 24 HR Interval Summary Free Text/Dictation NO acute events - BP stable - no tachy-abril arrhythmia now. ROS: No fever, no chills, no nausea, no vomiting, no diarrhea/constipation No recent weight changes No chest pain, no PND, no orthopnea No dizziness, blurred vision No thirst, no heat or cold intolerance Exam/Review of Systems Vital Signs Vitals Vital Signs Date Time Temp Pulse Resp B/P Pulse Ox O2 Delivery O2 Flow Rate FiO2 05/14/17 12:00 78 05/14/17 11:06 97.2 17 102/52 100 05/14/17 08:42 21 05/12/17 20:00 Nasal Cannula 2.0 Intake and Output 05/13/17 05/13/17 05/14/17 15:00 23:00 07:00 Intake Total 150 ml 920 ml Balance 150 ml 920 ml Exam General: WN/WD/NAD, AOx 3 HEENT: Unicetric/atraumatic/EOMI (follow commands) NECK: JVD elevated, no thyromegaly Lymph: no lymphadenopathy HEART: ir irregular with no S3, II/ systolic murmur at apex LUNGS: Coarse sounds ABD: soft, NT, ND, +BS : Intact Neuro: non focal SKIN: chronic changes EXT: trace edema Results Result Diagram: 05/14/1771205/14/17712 Results 24 hrs Laboratory Tests Test 05/14/17 07:13 White Blood Count 9.8 Red Blood Count 4.02 L Hemoglobin 10.6 L Hematocrit 34.4 L Mean Corpuscular Volume 85.6 Mean Corpuscular Hemoglobin 26.4 L Mean Corpuscular Hemoglobin Concent 30.8 L Red Cell Distribution Width 16.4 H Platelet Count 292 Mean Platelet Volume 13.3 H Neutrophils % 75.0 Lymphocytes % 11.9 L Monocytes % 8.2 Eosinophils % 3.3 Basophils % 1.0 Nucleated Red Blood Cells % 0.0 Neutrophils # 7.3 Lymphocytes # 1.2 Monocytes # 0.8 Eosinophils # 0.3 Basophils # 0.1 Nucleated Red Blood Cells # 0.0 Prothrombin Time 16.1 H Prothrombin Time Ratio 1.3 INR International Normalized Ratio 1.28 Sodium Level 142 Potassium Level 4.2 Chloride Level 105 Carbon Dioxide Level 26 Anion Gap 15 Blood Urea Nitrogen 22 H Creatinine 0.78 Glucose Level 111 Calcium Level 9.3 Medications Medications Current Medications Morphine Sulfate (morphine) 2 mg Q4H PRN IV PAIN Last administered on 05:05; Admin Dose 2 MG; Start 05/07/17 at 05:30 Ondansetron HCl (Zofran Inj) 4 mg Q6H PRN IV NAUSEA AND/OR VOMITING; Start 05/07/17 at 05:30 Enoxaparin Sodium (Lovenox) 60 mg Q12 SC Last administered on 05/14/17 09:20 ; Admin Dose 60 MG; Start 05/07/17 at 12:00 Furosemide (Lasix) 20 mg DAILY GTB Last administered on 05/14/17 08:58; Admin Dose 20 MG; Start 05/08/17 at 09:00 Lansoprazole 30 mg 30 mg DAILY GTB Last administered on 05/14/17 08:58; Admin Dose 30 MG; Start 05/08/17 at 09:00 Dextrose/Sodium Chloride (D5-1/2ns) 1,000 ml @ 80 mls/hr [id number] IV Last administered on 05/14/17 09:06; Admin Dose 80 MLS/HR; Start 05/08/17 at 16:30 Guaifenesin (Robitussin Liquid Cup) 15 mg QID PRN GTB COUGH; Start 05/09/17 at 09:00 Acetaminophen (Tylenol Liquid) 650 mg Q4H PRN GTB PAIN AND OR ELEVATED TEMP Last administered on 05/11/17 20:46; Admin Dose 650 MG; Start 05/10/17 at 13:00 Digoxin (Digoxin) 0.125 mg DAILY NGT Last administered on 05/14/17 08:59; Admin Dose 0.125 MG; Start 05/11/17 at 09:00 Metoprolol Tartrate (Lopressor) 5 mg Q4H PRN IV HR>110 Hold SBP<100; Start 05/10/17 at 13:30 IV Flush (NS 10 ml) 10 ml PRN PRN IV IV PROTOCOL; Start 05/10/17 at 16:30 Atenolol (Tenormin) 25 mg BID PO Last administered on 05/14/17 08:59; Admin Dose 25 MG; Start 05/12/17 at 21:00 Warfarin Sodium (Coumadin) 4 mg DAILY@17 GTB Last administered on 05/13/17 17: 23; Admin Dose 4 MG; Start 05/12/17 at 17:00 YAJAIRA ALVAREZ MD May 14, 2017 13:17
--- NOTE | 2017-05-14 16:14 | PN ---
Date/Time of Note Date/Time of Note DATE: 05/14/17 TIME: 16:12 Assessment/Plan VTE Prophylaxis VTE Prophylaxis Intervention: SCD's Lines/Catheters IV [facility] Peripheral IV Assessment/Plan Chief Complaint/Hosp Course Atrial fibrillation at controlled rate, patient remains hemodynamically stable, afebrile. Assessment/Plan - Recurrent sepsis secondary pneumonia and UTI. Status post treatment with antibiotics. Dr. Hiro villeda is following in ID consultation. Continue antibiotics per ID. - Atrial fibrillation with rapid ventricular response. Dr. Armenta is following and cardiology consultation. Continue Coumadin, Lovenox, atenolol. - Bilateral thalamic infarctions. - Dysphagia with G-tube. - Mitral stenosis - CHF, continue Lasix, monitor electrolytes - Hx Thrombosis of the bilateral cephalic veins. - History of VRE in urine Further recommendations based on clinical course. Plan of care discussed with Dr. Valdovinos. Problems: Exam/Review of Systems Vital Signs Vitals Vital Signs Date Time Temp Pulse Resp B/P Pulse Ox O2 Delivery O2 Flow Rate FiO2 05/14/17 15:27 98.5 98 19 125/79 100 05/14/17 13:51 21 05/12/17 20:00 Nasal Cannula 2.0 Intake and Output 05/13/17 05/13/17 05/14/17 15:00 23:00 07:00 Intake Total 150 ml 920 ml Balance 150 ml 920 ml Exam Constitutional: alert, oriented Respiratory: diminished breath sounds Cardiovascular: irregular rhythm Gastrointestinal: non-tender, other (G-tube), soft Neurological: nl mental status, other (Bilateral extremities weakness secondary to bilateral thalamic stroke) Results Result Diagram: 05/14/1713 05/14/17 0713 Results 24 hrs Laboratory Tests Test 05/14/17 07:13 White Blood Count 9.8 Red Blood Count 4.02 L Hemoglobin 10.6 L Hematocrit 34.4 L Mean Corpuscular Volume 85.6 Mean Corpuscular Hemoglobin 26.4 L Mean Corpuscular Hemoglobin Concent 30.8 L Red Cell Distribution Width 16.4 H Platelet Count 292 Mean Platelet Volume 13.3 H Neutrophils % 75.0 Lymphocytes % 11.9 L Monocytes % 8.2 Eosinophils % 3.3 Basophils % 1.0 Nucleated Red Blood Cells % 0.0 Neutrophils # 7.3 Lymphocytes # 1.2 Monocytes # 0.8 Eosinophils # 0.3 Basophils # 0.1 Nucleated Red Blood Cells # 0.0 Prothrombin Time 16.1 H Prothrombin Time Ratio 1.3 INR International Normalized Ratio 1.28 Sodium Level 142 Potassium Level 4.2 Chloride Level 105 Carbon Dioxide Level 26 Anion Gap 15 Blood Urea Nitrogen 22 H Creatinine 0.78 Glucose Level 111 Calcium Level 9.3 Medications Medications Current Medications Morphine Sulfate (morphine) 2 mg Q4H PRN IV PAIN Last administered on 05:05; Admin Dose 2 MG; Start 05/07/17 at 05:30 Ondansetron HCl (Zofran Inj) 4 mg Q6H PRN IV NAUSEA AND/OR VOMITING; Start 05/07/17 at 05:30 Enoxaparin Sodium (Lovenox) 60 mg Q12 SC Last administered on 05/14/17 09:20 ; Admin Dose 60 MG; Start 05/07/17 at 12:00 Furosemide (Lasix) 20 mg DAILY GTB Last administered on 05/14/17 08:58; Admin Dose 20 MG; Start 05/08/17 at 09:00 Lansoprazole 30 mg 30 mg DAILY GTB Last administered on 05/14/17 08:58; Admin Dose 30 MG; Start 05/08/17 at 09:00 Dextrose/Sodium Chloride (D5-1/2ns) 1,000 ml @ 80 mls/hr [id number] IV Last administered on 05/14/17 09:06; Admin Dose 80 MLS/HR; Start 05/08/17 at 16:30 Guaifenesin (Robitussin Liquid Cup) 15 mg QID PRN GTB COUGH; Start 05/09/17 at 09:00 Acetaminophen (Tylenol Liquid) 650 mg Q4H PRN GTB PAIN AND OR ELEVATED TEMP Last administered on 05/11/17 20:46; Admin Dose 650 MG; Start 05/10/17 at 13:00 Digoxin (Digoxin) 0.125 mg DAILY NGT Last administered on 05/14/17 08:59; Admin Dose 0.125 MG; Start 05/11/17 at 09:00 Metoprolol Tartrate (Lopressor) 5 mg Q4H PRN IV HR>110 Hold SBP<100; Start 05/10/17 at 13:30 IV Flush (NS 10 ml) 10 ml PRN PRN IV IV PROTOCOL; Start 05/10/17 at 16:30 Atenolol (Tenormin) 25 mg BID PO Last administered on 05/14/17 08:59; Admin Dose 25 MG; Start 05/12/17 at 21:00 Warfarin Sodium (Coumadin) 4 mg DAILY@17 GTB Last administered on 05/13/17 17: 23; Admin Dose 4 MG; Start 05/12/17 at 17:00 LAWRENCE PICKERING May 14, 2017 16:14
[2017-05-14] MEDS: WARFARIN 2 MG TAB GTB SCH (17:23)
[2017-05-15] VITALS (13 sets, daily range): BP systolic 92–128; BP diastolic 49–64; PULSE 66–87; RESP 18–19
[2017-05-15] MEDS: LEVALBUTEROL (NEB) 0.63 MG/3 ML AMP HHN SCH ×4 (01:03→20:45)
[2017-05-15 07:11] LABS: ABNORMAL IP MESSAGE 1; BASOPHIL # 0.1 10^3/ul (0.0-0.1); BASOPHILS % 0.9 % (0.0-2.0); EOSINOPHILS # 0.3 10^3/ul (0.0-0.5); EOSINOPHILS % 2.9 % (0.0-7.0); HEMOGLOBIN 11.1 g/dl (12.0-16.0); LYMPHOCYTES # 1.2 10^3/ul (0.8-2.9); LYMPHOCYTES % 13.8 % (15.0-51.0); MEAN CORPUSCULAR HEMOGLOBIN 26.9 pg (29.0-33.0); MEAN CORPUSCULAR HGB CONC 31.7 g/dl (32.0-37.0); MEAN PLATELET VOLUME 13.1 fl (7.4-10.4); MONOCYTE # 0.6 10^3/ul (0.3-0.9); NEUTROPHIL # 6.8 10^3/ul (1.6-7.5); NEUTROPHILS % 74.8 % (39.0-77.0); PLATELET COUNT 313 10^3/UL (140-415); RED BLOOD COUNT 4.12 10^6/ul (4.20-5.40); RED CELL DISTRIBUTION WIDTH 16.2 % (11.5-14.5)
[2017-05-15 07:16] LABS: POSITIVE DIFF @See below
[2017-05-15 07:26] LABS: INR 1.38; PT RATIO 1.3
[2017-05-15 07:37] LABS: CALCIUM 9.4 mg/dl (8.4-10.2); CREATININE 0.79 mg/dl (0.44-1.00); POTASSIUM 4.1 mmol/L (3.5-5.1)
--- NOTE | 2017-05-15 08:37 | PN ---
Date/Time of Note Date/Time of Note DATE: 05/15/17 TIME: 08:37 Assessment/Plan VTE Prophylaxis VTE Prophylaxis Intervention: other Lines/Catheters IV Catheter Type (from [facility]): Peripheral IV Assessment/Plan Chief Complaint/Hosp Course - Recurrent sepsis secondary pneumonia and UTI. Status post treatment with antibiotics. Dr. Hiro villeda is following in ID consultation. Continue antibiotics per ID. - Atrial fibrillation with rapid ventricular response. Dr. Armenta is following and cardiology consultation. Continue Coumadin, Lovenox, atenolol. - Bilateral thalamic infarctions. - Dysphagia with G-tube. - Mitral stenosis - CHF, continue Lasix, monitor electrolytes - Hx Thrombosis of the bilateral cephalic veins. - History of VRE in urine Problems: Subjective 24 Hr Interval Summary Free Text/Dictation Patient is resting, not responsive to voice or touch Exam/Review of Systems Vital Signs Vitals Vital Signs Date Time Temp Pulse Resp B/P Pulse Ox O2 Delivery O2 Flow Rate FiO2 05/15/17 08:33 60 20 97 21 05/15/17 07:31 98.0 92/49 05/12/17 20:00 Nasal Cannula 2.0 Intake and Output 05/14/17 05/14/17 05/15/17 14:59 22:59 06:59 Intake Total 720 ml 960 ml Balance 720 ml 960 ml Exam Constitutional: well developed Head: atraumatic, normocephalic Neck: supple Respiratory: diminished breath sounds Cardiovascular: regular rate and rhythm Gastrointestinal: non-tender, soft Extremities: normal pulses Results Result Diagram: 05/15/17 0644 05/15/17 0644 Results 24 hrs Laboratory Tests Test 05/15/17 06:44 White Blood Count 9.0 Red Blood Count 4.12 L Hemoglobin 11.1 L Hematocrit 35.0 L Mean Corpuscular Volume 85.0 Mean Corpuscular Hemoglobin 26.9 L Mean Corpuscular Hemoglobin Concent 31.7 L Red Cell Distribution Width 16.2 H Platelet Count 313 Mean Platelet Volume 13.1 H Neutrophils % 74.8 Lymphocytes % 13.8 L Monocytes % 7.0 Eosinophils % 2.9 Basophils % 0.9 Nucleated Red Blood Cells % 0.0 Neutrophils # 6.8 Lymphocytes # 1.2 Monocytes # 0.6 Eosinophils # 0.3 Basophils # 0.1 Nucleated Red Blood Cells # 0.0 Prothrombin Time 17.0 H Prothrombin Time Ratio 1.3 INR International Normalized Ratio 1.38 Sodium Level 142 Potassium Level 4.1 Chloride Level 104 Carbon Dioxide Level 26 Anion Gap 16 Blood Urea Nitrogen 24 H Creatinine 0.79 Glucose Level 129 Calcium Level 9.4 Medications Medications Current Medications Morphine Sulfate (morphine) 2 mg Q4H PRN IV PAIN Last administered on 05:05; Admin Dose 2 MG; Start 05/07/17 at 05:30 Ondansetron HCl (Zofran Inj) 4 mg Q6H PRN IV NAUSEA AND/OR VOMITING; Start 05/07/17 at 05:30 Enoxaparin Sodium (Lovenox) 60 mg Q12 SC Last administered on 05/14/17 20:36 ; Admin Dose 60 MG; Start 05/07/17 at 12:00 Furosemide (Lasix) 20 mg DAILY GTB Last administered on 05/14/17 08:58; Admin Dose 20 MG; Start 05/08/17 at 09:00 Lansoprazole 30 mg 30 mg DAILY GTB Last administered on 05/14/17 08:58; Admin Dose 30 MG; Start 05/08/17 at 09:00 Dextrose/Sodium Chloride (D5-1/2ns) 1,000 ml @ 80 mls/hr [id number] IV Last administered on 05/14/17 09:06; Admin Dose 80 MLS/HR; Start 05/08/17 at 16:30 Guaifenesin (Robitussin Liquid Cup) 15 mg QID PRN GTB COUGH; Start 05/09/17 at 09:00 Acetaminophen (Tylenol Liquid) 650 mg Q4H PRN GTB PAIN AND OR ELEVATED TEMP Last administered on 05/11/17 20:46; Admin Dose 650 MG; Start 05/10/17 at 13:00 Digoxin (Digoxin) 0.125 mg DAILY NGT Last administered on 05/14/17 08:59; Admin Dose 0.125 MG; Start 05/11/17 at 09:00 Metoprolol Tartrate (Lopressor) 5 mg Q4H PRN IV HR>110 Hold SBP<100; Start 05/10/17 at 13:30 IV Flush (NS 10 ml) 10 ml PRN PRN IV IV PROTOCOL; Start 05/10/17 at 16:30 Atenolol (Tenormin) 25 mg BID PO Last administered on 05/14/17 20:31; Admin Dose 25 MG; Start 05/12/17 at 21:00 Warfarin Sodium (Coumadin) 4 mg DAILY@17 GTB Last administered on 05/14/17 17 :23; Admin Dose 4 MG; Start 05/12/17 at 17:00 JOSE LOMAS May 15, 2017 08:37
[2017-05-15] MEDS: DIGOXIN 0.125 MG TAB NGT SCH (09:35)
[2017-05-15] MEDS: FUROSEMIDE 20 MG TAB GTB SCH (09:40)
[2017-05-15] MEDS: LANSOPRAZOLE 30 MG CAP GTB SCH (09:41)
[2017-05-15] MEDS: ATENOLOL 50 MG TAB PO SCH ×2 (09:41→20:43)
[2017-05-15] MEDS: ENOXAPARIN 60 MG/0.6 ML SYG SC SCH ×2 (10:08→20:48)
[2017-05-15] MEDS: DEXTROSE 5%-0.45% NACL 1,000 ML IV SCH ×2 (11:00→23:30)
--- NOTE | 2017-05-15 13:35 | CONS ---
Date/Time of Note Date/Time of Note DATE: 05/15/17 TIME: 13:34 Assessment/Plan Assessment/Plan Additional Assessment/Plan 1. Atrial fibrillation-mainly rate controlled - no intervention planned. NO indication for pacer now. 2. History of cardiomyopathy with decreased left ventricular ejection fraction , last study approximately 45% to 50% by echo 01/2017. 3. Congestive heart failure by chest x-ray, systolic and diastolic, acute on chronic - stable fluid status now. 4. Hypernatremia-improved 5. History of mitral stenosis- no intervention planned now. STABLE by exam. 6. History of thalamic infarctions, prior cerebrovascular accident. 7. Urinary tract infection- completed anti-Bx, held now - will follow with ID. 8. Dysphagia, status post gastrostomy tube. Consultation Date/Type/Reason Admit Date/Time May 07, 2017 at 02:40 Initial Consult Date 05/08/17 Type of Consultation: Infectious Disease Referring Provider: ROXANA TORO MD 24 HR Interval Summary Free Text/Dictation NO abatements - no tachy-abril Sx - less alert today ROS: No fever, no chills, no nausea, no vomiting, no diarrhea/constipation No recent weight changes No chest pain, no PND, no orthopnea No dizziness, blurred vision No thirst, no heat or cold intolerance (per nurse) Exam/Review of Systems Vital Signs Vitals Vital Signs Date Time Temp Pulse Resp B/P Pulse Ox O2 Delivery O2 Flow Rate FiO2 05/15/17 12:16 66 05/15/17 11:36 98.0 18 103/56 98 05/15/17 08:33 21 05/12/17 20:00 Nasal Cannula 2.0 Intake and Output 05/14/17 05/14/17 05/15/17 15:00 23:00 07:00 Intake Total 720 ml 960 ml Balance 720 ml 960 ml Exam General: WN/WD/NAD, AOx comfortable HEENT: Unicetric/atraumatic/EOMI (does not follow commands) NECK: JVD elevated, no thyromegaly Lymph: no lymphadenopathy HEART: irrregular with no S3, II/ systolic murmur at apex LUNGS: Coarse sounds ABD: soft, NT, ND, +BS : Intact Neuro: non focal SKIN: chronic changes EXT: trace edema Results Result Diagram: 05/15/17 0644 05/15/17 0644 Results 24 hrs Laboratory Tests Test 05/15/17 06:44 White Blood Count 9.0 Red Blood Count 4.12 L Hemoglobin 11.1 L Hematocrit 35.0 L Mean Corpuscular Volume 85.0 Mean Corpuscular Hemoglobin 26.9 L Mean Corpuscular Hemoglobin Concent 31.7 L Red Cell Distribution Width 16.2 H Platelet Count 313 Mean Platelet Volume 13.1 H Neutrophils % 74.8 Lymphocytes % 13.8 L Monocytes % 7.0 Eosinophils % 2.9 Basophils % 0.9 Nucleated Red Blood Cells % 0.0 Neutrophils # 6.8 Lymphocytes # 1.2 Monocytes # 0.6 Eosinophils # 0.3 Basophils # 0.1 Nucleated Red Blood Cells # 0.0 Prothrombin Time 17.0 H Prothrombin Time Ratio 1.3 INR International Normalized Ratio 1.38 Sodium Level 142 Potassium Level 4.1 Chloride Level 104 Carbon Dioxide Level 26 Anion Gap 16 Blood Urea Nitrogen 24 H Creatinine 0.79 Glucose Level 129 Calcium Level 9.4 Medications Medications Current Medications Morphine Sulfate (morphine) 2 mg Q4H PRN IV PAIN Last administered on 05:05; Admin Dose 2 MG; Start 05/07/17 at 05:30 Ondansetron HCl (Zofran Inj) 4 mg Q6H PRN IV NAUSEA AND/OR VOMITING; Start 05/07/17 at 05:30 Enoxaparin Sodium (Lovenox) 60 mg Q12 SC Last administered on 05/15/17 10:08 ; Admin Dose 60 MG; Start 05/07/17 at 12:00 Furosemide (Lasix) 20 mg DAILY GTB Last administered on 05/15/17 09:40; Admin Dose 20 MG; Start 05/08/17 at 09:00 Lansoprazole 30 mg 30 mg DAILY GTB Last administered on 05/15/17 09:41; Admin Dose 30 MG; Start 05/08/17 at 09:00 Dextrose/Sodium Chloride (D5-1/2ns) 1,000 ml @ 80 mls/hr [id number] IV Last administered on 05/14/17 09:06; Admin Dose 80 MLS/HR; Start 05/08/17 at 16:30 Guaifenesin (Robitussin Liquid Cup) 15 mg QID PRN GTB COUGH; Start 05/09/17 at 09:00 Acetaminophen (Tylenol Liquid) 650 mg Q4H PRN GTB PAIN AND OR ELEVATED TEMP Last administered on 05/11/17 20:46; Admin Dose 650 MG; Start 05/10/17 at 13:00 Digoxin (Digoxin) 0.125 mg DAILY NGT Last administered on 05/15/17 09:35; Admin Dose 0.125 MG; Start 05/11/17 at 09:00 Metoprolol Tartrate (Lopressor) 5 mg Q4H PRN IV HR>110 Hold SBP<100; Start 05/10/17 at 13:30 IV Flush (NS 10 ml) 10 ml PRN PRN IV IV PROTOCOL; Start 05/10/17 at 16:30 Atenolol (Tenormin) 25 mg BID PO Last administered on 05/15/17 09:41; Admin Dose 25 MG; Start 05/12/17 at 21:00 Warfarin Sodium (Coumadin) 4 mg DAILY@17 GTB Last administered on 05/14/17 17 :23; Admin Dose 4 MG; Start 05/12/17 at 17:00 YAJAIRA ALVAREZ MD May 15, 2017 13:35
--- NOTE | 2017-05-15 13:42 | CONS ---
Date/Time of Note Date/Time of Note DATE: 05/15/17 TIME: 13:36 Assessment/Plan Assessment/Plan Additional Assessment/Plan - HCAP -s/p empiric vanco & cefepime - UTI due to klebsiella - treated with cefepime - A fib with RVR - HR improved - H/o recurrent CVA/bilateral thalami, cerebral peduncles, periaqueductal midbrain and caroline with residual weakness - Dysphagia s/p PEG - H/o DVT - H/o recent sepsis prob d/t aspiration PNA/pneumonitis or bronchitis 04/2017 - H/o recent VRE in urine with no significant pyuria 04/25/17 - H/o sepsis due to bacteremia and UTI - H/o enterococcus bacteremia, tip of PICC grew Group B strep. Transthoracic echo on 01/16/2017, 03/25/2017 did not reveal valvular vegetation but difficult to assess MV. Pt was supposed to take an empiric course of endocarditis through 04/23/2017; Pt's said that she had completed antibiotics on 04/24/2017 - H/o rheumatic heart disease (probable rheumatic, severe MS on transthoracic echo) - H/o recurrent UTI/CA-UTI (E. coli 03/21/17, proteus 02/11/17, C. glabrata 02/09/17 ) - H/o diffuse moderate degree of gastritis s/p EGD 02/15/2017 - H/o gastritis due to H. 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 CSF from 01/19/2017: WBC=3, RBC=0, glu 53, pro= 61, CSF ([place] serology negative, HSV negative, cocci CF negative, encephalitis meningitis panel could not be done due to a lack of sample), serum ([place] PCR negative, crypto antigen negative, cocci CF negative, histo CF negative). - H/o MARIELA - H/o LLE ischemia s/p thrombolysis and subsequent open thrombectomy and fasciotomy at [facility] 09/2015 - H/o thrombus on DEBBIE per records from [facility] Recommendations: - discontinue empiric vancomycin and cefepime (05/07/2017-) and monitor closely off antibiotics Management d/w patient, her , son Juan via telephone, NARESH Anaya, and Dr. Bosch Consultation Date/Type/Reason Admit Date/Time May 07, 2017 at 02:40 Initial Consult Date 05/08/17 Type of Consultation: Infectious Disease Referring Provider: ROXANA TORO MD 24 HR Interval Summary Free Text/Dictation -resting, seems comfortable, Denies chest pain, RANDOLPH, SOB, n/v/d, dysuria. -Pt pulled out PICC the other day, afebrile, WBC wnl, no acute issues reported overnight- staff,placement pending. Constitutional: requiring O2 Exam/Review of Systems Vital Signs Vitals Vital Signs Date Time Temp Pulse Resp B/P Pulse Ox O2 Delivery O2 Flow Rate FiO2 05/15/17 12:16 66 05/15/17 11:36 98.0 18 103/56 98 05/15/17 08:33 21 05/12/17 20:00 Nasal Cannula 2.0 Intake and Output 05/14/17 05/14/17 05/15/17 15:00 23:00 07:00 Intake Total 720 ml 960 ml Balance 720 ml 960 ml Exam Constitutional: alert Psych: nl mood/affect Cardiovascular: other (s1`s2) Gastrointestinal: other (gt intact), soft Extremities: normal pulses Results Result Diagram: 05/15/17 0644 05/15/17 0644 Results 24 hrs Laboratory Tests Test 05/15/17 06:44 White Blood Count 9.0 Red Blood Count 4.12 L Hemoglobin 11.1 L Hematocrit 35.0 L Mean Corpuscular Volume 85.0 Mean Corpuscular Hemoglobin 26.9 L Mean Corpuscular Hemoglobin Concent 31.7 L Red Cell Distribution Width 16.2 H Platelet Count 313 Mean Platelet Volume 13.1 H Neutrophils % 74.8 Lymphocytes % 13.8 L Monocytes % 7.0 Eosinophils % 2.9 Basophils % 0.9 Nucleated Red Blood Cells % 0.0 Neutrophils # 6.8 Lymphocytes # 1.2 Monocytes # 0.6 Eosinophils # 0.3 Basophils # 0.1 Nucleated Red Blood Cells # 0.0 Prothrombin Time 17.0 H Prothrombin Time Ratio 1.3 INR International Normalized Ratio 1.38 Sodium Level 142 Potassium Level 4.1 Chloride Level 104 Carbon Dioxide Level 26 Anion Gap 16 Blood Urea Nitrogen 24 H Creatinine 0.79 Glucose Level 129 Calcium Level 9.4 Medications Medications Current Medications Morphine Sulfate (morphine) 2 mg Q4H PRN IV PAIN Last administered on 05:05; Admin Dose 2 MG; Start 05/07/17 at 05:30 Ondansetron HCl (Zofran Inj) 4 mg Q6H PRN IV NAUSEA AND/OR VOMITING; Start 05/07/17 at 05:30 Enoxaparin Sodium (Lovenox) 60 mg Q12 SC Last administered on 05/15/17 10:08 ; Admin Dose 60 MG; Start 05/07/17 at 12:00 Furosemide (Lasix) 20 mg DAILY GTB Last administered on 05/15/17 09:40; Admin Dose 20 MG; Start 05/08/17 at 09:00 Lansoprazole 30 mg 30 mg DAILY GTB Last administered on 05/15/17 09:41; Admin Dose 30 MG; Start 05/08/17 at 09:00 Dextrose/Sodium Chloride (D5-1/2ns) 1,000 ml @ 80 mls/hr [id number] IV Last administered on 05/14/17 09:06; Admin Dose 80 MLS/HR; Start 05/08/17 at 16:30 Guaifenesin (Robitussin Liquid Cup) 15 mg QID PRN GTB COUGH; Start 05/09/17 at 09:00 Acetaminophen (Tylenol Liquid) 650 mg Q4H PRN GTB PAIN AND OR ELEVATED TEMP Last administered on 05/11/17 20:46; Admin Dose 650 MG; Start 05/10/17 at 13:00 Digoxin (Digoxin) 0.125 mg DAILY NGT Last administered on 05/15/17 09:35; Admin Dose 0.125 MG; Start 05/11/17 at 09:00 Metoprolol Tartrate (Lopressor) 5 mg Q4H PRN IV HR>110 Hold SBP<100; Start 05/10/17 at 13:30 IV Flush (NS 10 ml) 10 ml PRN PRN IV IV PROTOCOL; Start 05/10/17 at 16:30 Atenolol (Tenormin) 25 mg BID PO Last administered on 11/11/17at 09:41; Admin Dose 25 MG; Start 05/12/17 at 21:00 Warfarin Sodium (Coumadin) 4 mg DAILY@17 GTB Last administered on 05/14/17t 17 :23; Admin Dose 4 MG; Start 05/12/17 at 17:00 ALEXIS NAJERA May 15, 2017 13:42 ALEXIS NAJERA May 15, 2017 13:42
[2017-05-15] MEDS: WARFARIN 2 MG TAB GTB SCH (17:49)
[2017-05-16] VITALS (10 sets, daily range): BP systolic 98–118; BP diastolic 45–64; PULSE 60–90; RESP 17–18
[2017-05-16] MEDS: LEVALBUTEROL (NEB) 0.63 MG/3 ML AMP HHN SCH ×4 (01:52→20:31)
[2017-05-16 07:11] LABS: ABNORMAL IP MESSAGE 1; BASOPHIL # 0.1 10^3/ul (0.0-0.1); BASOPHILS % 1.1 % (0.0-2.0); EOSINOPHILS # 0.3 10^3/ul (0.0-0.5); EOSINOPHILS % 3.4 % (0.0-7.0); HEMOGLOBIN 11.5 g/dl (12.0-16.0); LYMPHOCYTES # 1.4 10^3/ul (0.8-2.9); LYMPHOCYTES % 14.6 % (15.0-51.0); MEAN CORPUSCULAR HEMOGLOBIN 26.3 pg (29.0-33.0); MEAN CORPUSCULAR HGB CONC 31.1 g/dl (32.0-37.0); MEAN CORPUSCULAR VOLUME 84.5 fl (82.0-101.0); MEAN PLATELET VOLUME 13.5 fl (7.4-10.4); MONOCYTE # 0.7 10^3/ul (0.3-0.9); MONOCYTES % 7.6 % (0.0-11.0); NEUTROPHIL # 6.9 10^3/ul (1.6-7.5); NEUTROPHILS % 72.8 % (39.0-77.0); PLATELET COUNT 321 10^3/UL (140-415); RED BLOOD COUNT 4.38 10^6/ul (4.20-5.40); RED CELL DISTRIBUTION WIDTH 16.5 % (11.5-14.5); WHITE BLOOD COUNT 9.5 10^3/ul (4.8-10.8)
[2017-05-16 07:13] LABS: POSITIVE DIFF @See below
[2017-05-16 07:35] LABS: INR 1.54; PROTIME 18.6 Sec (12.2-14.2); PT RATIO 1.5
[2017-05-16 07:54] LABS: CALCIUM 10.1 mg/dl (8.4-10.2); CREATININE 0.85 mg/dl (0.44-1.00); POTASSIUM 3.7 mmol/L (3.5-5.1)
[2017-05-16] MEDS: ATENOLOL 50 MG TAB PO SCH ×2 (09:00→21:19)
[2017-05-16] MEDS: LANSOPRAZOLE 30 MG CAP GTB SCH (09:30)
[2017-05-16] MEDS: FUROSEMIDE 20 MG TAB GTB SCH (09:30)
[2017-05-16] MEDS: DIGOXIN 0.125 MG TAB NGT SCH (09:31)
[2017-05-16] MEDS: ENOXAPARIN 60 MG/0.6 ML SYG SC SCH ×2 (09:39→21:23)
--- NOTE | 2017-05-16 09:43 | PN ---
Date/Time of Note Date/Time of Note DATE: 05/16/17 TIME: 09:42 Assessment/Plan VTE Prophylaxis VTE Prophylaxis Intervention: other Lines/Catheters IV C[facility]ter Type (from [facility]): Peripheral IV Assessment/Plan Chief Complaint/Hosp Course - Recurrent sepsis secondary pneumonia and UTI. Status post treatment with antibiotics. Dr. Hiro villeda is following in ID consultation. Continue antibiotics per ID. - Atrial fibrillation with rapid ventricular response. Dr. Armenta is following and cardiology consultation. Continue Coumadin, Lovenox, atenolol. - Bilateral thalamic infarctions. - Dysphagia with G-tube. - Mitral stenosis - CHF, continue Lasix, monitor electrolytes - Hx Thrombosis of the bilateral cephalic veins. - History of VRE in urine Problems: Subjective 24 Hr Interval Summary Free Text/Dictation Patient not verbally responsive, appears comfortable Exam/Review of Systems Vital Signs Vitals Vital Signs Date Time Temp Pulse Resp B/P Pulse Ox O2 Delivery O2 Flow Rate FiO2 05/16/17 08:56 66 20 96 21 05/16/17 08:01 98.0 99/45 05/12/17 20:00 Nasal Cannula 2.0 Intake and Output 05/15/17 05/15/17 05/16/17 14:59 22:59 06:59 Intake Total 900 ml Balance 900 ml Exam Constitutional: well developed Head: atraumatic, normocephalic Neck: supple Respiratory: diminished breath sounds Cardiovascular: regular rate and rhythm Gastrointestinal: non-tender, soft Extremities: normal pulses Results Result Diagram: 05/16/17 0623 05/16/17 0623 Results 24 hrs Laboratory Tests Test 05/16/17 06:23 White Blood Count 9.5 Red Blood Count 4.38 Hemoglobin 11.5 L Hematocrit 37.0 Mean Corpuscular Volume 84.5 Mean Corpuscular Hemoglobin 26.3 L Mean Corpuscular Hemoglobin Concent 31.1 L Red Cell Distribution Width 16.5 H Platelet Count 321 Mean Platelet Volume 13.5 H Neutrophils % 72.8 Lymphocytes % 14.6 L Monocytes % 7.6 Eosinophils % 3.4 Basophils % 1.1 Nucleated Red Blood Cells % 0.0 Neutrophils # 6.9 Lymphocytes # 1.4 Monocytes # 0.7 Eosinophils # 0.3 Basophils # 0.1 Nucleated Red Blood Cells # 0.0 Prothrombin Time 18.6 H Prothrombin Time Ratio 1.5 INR International Normalized Ratio 1.54 Sodium Level 142 Potassium Level 3.7 Chloride Level 103 Carbon Dioxide Level 27 Anion Gap 16 Blood Urea Nitrogen 29 H Creatinine 0.85 Glucose Level 122 Calcium Level 10.1 Medications Medications Current Medications Morphine Sulfate (morphine) 2 mg Q4H PRN IV PAIN Last administered on 05:05; Admin Dose 2 MG; Start 05/07/17 at 05:30 Ondansetron HCl (Zofran Inj) 4 mg Q6H PRN IV NAUSEA AND/OR VOMITING; Start 05/07/17 at 05:30 Enoxaparin Sodium (Lovenox) 60 mg Q12 SC Last administered on 05/16/17 09:39 ; Admin Dose 60 MG; Start 05/07/17 at 12:00 Furosemide (Lasix) 20 mg DAILY GTB Last administered on 05/16/17 09:30; Admin Dose 20 MG; Start 05/08/17 at 09:00 Lansoprazole 30 mg 30 mg DAILY GTB Last administered on 05/16/17 09:30; Admin Dose 30 MG; Start 05/08/17 at 09:00 Dextrose/Sodium Chloride (D5-1/2ns) 1,000 ml @ 80 mls/hr [id number] IV Last administered on 05/14/17 09:06; Admin Dose 80 MLS/HR; Start 05/08/17 at 16:30 Guaifenesin (Robitussin Liquid Cup) 15 mg QID PRN GTB COUGH; Start 05/09/17 at 09:00 Acetaminophen (Tylenol Liquid) 650 mg Q4H PRN GTB PAIN AND OR ELEVATED TEMP Last administered on 05/11/17 20:46; Admin Dose 650 MG; Start 05/10/17 at 13:00 Digoxin (Digoxin) 0.125 mg DAILY NGT Last administered on 05/16/17 09:31; Admin Dose 0.125 MG; Start 05/11/17 at 09:00 Metoprolol Tartrate (Lopressor) 5 mg Q4H PRN IV HR>110 Hold SBP<100; Start 05/10/17 at 13:30 IV Flush (NS 10 ml) 10 ml PRN PRN IV IV PROTOCOL; Start 05/10/17 at 16:30 Atenolol (Tenormin) 25 mg BID PO Last administered on 05/15/17 20:43; Admin Dose 25 MG; Start 05/12/17 at 21:00 Warfarin Sodium (Coumadin) 4 mg DAILY@17 GTB Last administered on 05/15/17 17 :49; Admin Dose 4 MG; Start 05/12/17 at 17:00 JOSE LOMAS May 16, 2017 09:43
--- NOTE | 2017-05-16 11:49 | CONS ---
Date/Time of Note Date/Time of Note DATE: 05/16/17 TIME: 11:45 Assessment/Plan Assessment/Plan Additional Assessment/Plan - HCAP -s/p empiric vanco & cefepime - UTI due to klebsiella - treated with cefepime - A fib with RVR - HR improved - H/o recurrent CVA/bilateral thalami, cerebral peduncles, periaqueductal midbrain and caroline with residual weakness - Dysphagia s/p PEG - H/o DVT - H/o recent sepsis prob d/t aspiration PNA/pneumonitis or bronchitis 04/2017 - H/o recent VRE in urine with no significant pyuria 04/25/17 - H/o sepsis due to bacteremia and UTI - H/o enterococcus bacteremia, tip of PICC grew Group B strep. Transthoracic echo on 01/16/2017, 03/25/2017 did not reveal valvular vegetation but difficult to assess MV. Pt was supposed to take an empiric course of endocarditis through 04/23/2017; Pt's said that she had completed antibiotics on 04/24/2017 - H/o rheumatic heart disease (probable rheumatic, severe MS on transthoracic echo) - H/o recurrent UTI/CA-UTI (E. coli 03/21/17, proteus 02/11/17, C. glabrata 02/09/17 ) - H/o diffuse moderate degree of gastritis s/p EGD 02/15/2017 - H/o gastritis due to H. 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 CSF from 01/19/2017: WBC=3, RBC=0, glu 53, pro= 61, CSF ([place] serology negative, HSV negative, cocci CF negative, encephalitis meningitis panel could not be done due to a lack of sample), serum ([place] PCR negative, crypto antigen negative, cocci CF negative, histo CF negative). - H/o MARIELA - H/o LLE ischemia s/p thrombolysis and subsequent open thrombectomy and fasciotomy at [facility] 09/2015 - H/o thrombus on DEBBIE per records from [facility] - bilateral groin fungal infection- Nystatin powder Recommendations: - discontinue empiric vancomycin and cefepime (05/07/2017-) and monitor closely off antibiotics Management d/w patient/ RN Stefani and Dr. Bosch Consultation Date/Type/Reason Admit Date/Time May 07, 2017 at 02:40 Initial Consult Date 05/08/17 Type of Consultation: Infectious Disease Referring Provider: ROXANA TORO MD 24 HR Interval Summary Free Text/Dictation -resting, seems comfortable, Denies chest pain, RANDOLPH, SOB, n/v/d, dysuria. - afebrile, WBC wnl, no acute issues reported overnight- dw staff,placement pending./son at bed side- all Qs answered. Constitutional: requiring O2 Exam/Review of Systems Vital Signs Vitals Vital Signs Date Time Temp Pulse Resp B/P Pulse Ox O2 Delivery O2 Flow Rate FiO2 05/16/17 08:56 66 20 96 21 05/16/17 08:01 98.0 99/45 05/12/17 20:00 Nasal Cannula 2.0 Intake and Output 05/15/17 05/15/17 05/16/17 14:59 22:59 06:59 Intake Total 900 ml Balance 900 ml Exam Constitutional: alert Respiratory: diminished breath sounds (bilaterally) Cardiovascular: nl pulses, other (s1s2) Musculoskeletal: nl extremities to inspection Extremities: normal pulses Neurological: confused, other (alert, eyes open) Results Result Diagram: 05/16/1762205/16/17 0623 Results 24 hrs Laboratory Tests Test 05/16/17 06:23 White Blood Count 9.5 Red Blood Count 4.38 Hemoglobin 11.5 L Hematocrit 37.0 Mean Corpuscular Volume 84.5 Mean Corpuscular Hemoglobin 26.3 L Mean Corpuscular Hemoglobin Concent 31.1 L Red Cell Distribution Width 16.5 H Platelet Count 321 Mean Platelet Volume 13.5 H Neutrophils % 72.8 Lymphocytes % 14.6 L Monocytes % 7.6 Eosinophils % 3.4 Basophils % 1.1 Nucleated Red Blood Cells % 0.0 Neutrophils # 6.9 Lymphocytes # 1.4 Monocytes # 0.7 Eosinophils # 0.3 Basophils # 0.1 Nucleated Red Blood Cells # 0.0 Prothrombin Time 18.6 H Prothrombin Time Ratio 1.5 INR International Normalized Ratio 1.54 Sodium Level 142 Potassium Level 3.7 Chloride Level 103 Carbon Dioxide Level 27 Anion Gap 16 Blood Urea Nitrogen 29 H Creatinine 0.85 Glucose Level 122 Calcium Level 10.1 Medications Medications Current Medications Morphine Sulfate (morphine) 2 mg Q4H PRN IV PAIN Last administered on 05:05; Admin Dose 2 MG; Start 05/07/17 at 05:30 Ondansetron HCl (Zofran Inj) 4 mg Q6H PRN IV NAUSEA AND/OR VOMITING; Start 05/07/17 at 05:30 Enoxaparin Sodium (Lovenox) 60 mg Q12 SC Last administered on 05/16/17 09:39 ; Admin Dose 60 MG; Start 05/07/17 at 12:00 Furosemide (Lasix) 20 mg DAILY GTB Last administered on 05/16/17 09:30; Admin Dose 20 MG; Start 05/08/17 at 09:00 Lansoprazole 30 mg 30 mg DAILY GTB Last administered on 05/16/17 09:30; Admin Dose 30 MG; Start 05/08/17 at 09:00 Dextrose/Sodium Chloride (D5-1/2ns) 1,000 ml @ 80 mls/hr [id number] IV Last administered on 05/14/17 09:06; Admin Dose 80 MLS/HR; Start 05/08/17 at 16:30 Guaifenesin (Robitussin Liquid Cup) 15 mg QID PRN GTB COUGH; Start 05/09/17 at 09:00 Acetaminophen (Tylenol Liquid) 650 mg Q4H PRN GTB PAIN AND OR ELEVATED TEMP Last administered on 05/11/17 20:46; Admin Dose 650 MG; Start 05/10/17 at 13:00 Digoxin (Digoxin) 0.125 mg DAILY NGT Last administered on 05/16/17 09:31; Admin Dose 0.125 MG; Start 05/11/17 at 09:00 Metoprolol Tartrate (Lopressor) 5 mg Q4H PRN IV HR>110 Hold SBP<100; Start 05/10/17 at 13:30 IV Flush (NS 10 ml) 10 ml PRN PRN IV IV PROTOCOL; Start 05/10/17 at 16:30 Atenolol (Tenormin) 25 mg BID PO Last administered on 05/15/17 20:43; Admin Dose 25 MG; Start 05/12/17 at 21:00 Warfarin Sodium (Coumadin) 4 mg DAILY@17 GTB Last administered on 05/15/17t 17 :49; Admin Dose 4 MG; Start 05/12/17 at 17:00 ALEXIS NAJERA May 16, 2017 11:49 ALEXIS NAJERA May 16, 2017 11:49
[2017-05-16] MEDS: DEXTROSE 5%-0.45% NACL 1,000 ML IV SCH (12:00)
[2017-05-16] MEDS: NYSTATIN 30 GM POWDER BTL TOP SCH ×2 (13:30→21:19)
--- NOTE | 2017-05-16 13:52 | CONS ---
Date/Time of Note Date/Time of Note DATE: 05/16/17 TIME: 13:51 Assessment/Plan Assessment/Plan Additional Assessment/Plan 1. Atrial fibrillation-mainly rate controlled - no intervention planned. NO indication for pacer now. STABLE on tele. 2. History of cardiomyopathy with decreased left ventricular ejection fraction , last study approximately 45% to 50% by echo 01/2017. 3. Congestive heart failure by chest x-ray, systolic and diastolic, acute on chronic - stable fluid status now. 4. Hypernatremia-improved 5. History of mitral stenosis- no intervention planned now. STABLE by exam. 6. History of thalamic infarctions, prior cerebrovascular accident. 7. Urinary tract infection- completed anti-Bx, held now - will follow with ID. OFF ALL Anti_Bx, better - family at bedside - happy with care. 8. Dysphagia, status post gastrostomy tube. Consultation Date/Type/Reason Admit Date/Time May 07, 2017 at 02:40 Initial Consult Date 05/08/17 Type of Consultation: Infectious Disease Referring Provider: ROXANA TORO MD 24 HR Interval Summary Free Text/Dictation OFF ALL Anti_Bx, better - family at bedside - happy with care. NO Cp - a. fib rate controlled on tele ROS: No fever, no chills, no nausea, no vomiting, no diarrhea/constipation No recent weight changes No chest pain, no PND, no orthopnea No dizziness, blurred vision No thirst, no heat or cold intolerance Exam/Review of Systems Vital Signs Vitals Vital Signs Date Time Temp Pulse Resp B/P Pulse Ox O2 Delivery O2 Flow Rate FiO2 05/16/17 12:39 98.0 73 18 98/61 98 05/16/17 08:56 21 05/12/17 20:00 Nasal Cannula 2.0 Intake and Output 05/15/17 05/15/17 05/16/17 15:00 23:00 07:00 Intake Total 900 ml Balance 900 ml Exam General: WN/WD/NAD, AOx 2-3 HEENT: Unicetric/atraumatic/EOMI ( follow commands) NECK: JVD elevated, no thyromegaly Lymph: no lymphadenopathy HEART: irrregular with no S3, II/ systolic murmur at apex LUNGS: Coarse sounds ABD: soft, NT, ND, +BS : Intact Neuro: non focal SKIN: chronic changes EXT: trace edema Results Result Diagram: 05/16/17 0623 05/16/17 0623 Results 24 hrs Laboratory Tests Test 05/16/17 06:23 White Blood Count 9.5 Red Blood Count 4.38 Hemoglobin 11.5 L Hematocrit 37.0 Mean Corpuscular Volume 84.5 Mean Corpuscular Hemoglobin 26.3 L Mean Corpuscular Hemoglobin Concent 31.1 L Red Cell Distribution Width 16.5 H Platelet Count 321 Mean Platelet Volume 13.5 H Neutrophils % 72.8 Lymphocytes % 14.6 L Monocytes % 7.6 Eosinophils % 3.4 Basophils % 1.1 Nucleated Red Blood Cells % 0.0 Neutrophils # 6.9 Lymphocytes # 1.4 Monocytes # 0.7 Eosinophils # 0.3 Basophils # 0.1 Nucleated Red Blood Cells # 0.0 Prothrombin Time 18.6 H Prothrombin Time Ratio 1.5 INR International Normalized Ratio 1.54 Sodium Level 142 Potassium Level 3.7 Chloride Level 103 Carbon Dioxide Level 27 Anion Gap 16 Blood Urea Nitrogen 29 H Creatinine 0.85 Glucose Level 122 Calcium Level 10.1 Medications Medications Current Medications Morphine Sulfate (morphine) 2 mg Q4H PRN IV PAIN Last administered on 05:05; Admin Dose 2 MG; Start 05/07/17 at 05:30 Ondansetron HCl (Zofran Inj) 4 mg Q6H PRN IV NAUSEA AND/OR VOMITING; Start 05/07/17 at 05:30 Enoxaparin Sodium (Lovenox) 60 mg Q12 SC Last administered on 05/16/17 09:39 ; Admin Dose 60 MG; Start 05/07/17 at 12:00 Furosemide (Lasix) 20 mg DAILY GTB Last administered on 05/16/17 09:30; Admin Dose 20 MG; Start 05/08/17 at 09:00 Lansoprazole 30 mg 30 mg DAILY GTB Last administered on 05/16/17 09:30; Admin Dose 30 MG; Start 05/08/17 at 09:00 Dextrose/Sodium Chloride (D5-1/2ns) 1,000 ml @ 80 mls/hr [id number] IV Last administered on 05/14/17 09:06; Admin Dose 80 MLS/HR; Start 05/08/17 at 16:30 Guaifenesin (Robitussin Liquid Cup) 15 mg QID PRN GTB COUGH; Start 05/09/17 at 09:00 Acetaminophen (Tylenol Liquid) 650 mg Q4H PRN GTB PAIN AND OR ELEVATED TEMP Last administered on 05/11/17 20:46; Admin Dose 650 MG; Start 05/10/17 at 13:00 Digoxin (Digoxin) 0.125 mg DAILY NGT Last administered on 05/16/17 09:31; Admin Dose 0.125 MG; Start 05/11/17 at 09:00 Metoprolol Tartrate (Lopressor) 5 mg Q4H PRN IV HR>110 Hold SBP<100; Start 05/10/17 at 13:30 IV Flush (NS 10 ml) 10 ml PRN PRN IV IV PROTOCOL; Start 05/10/17 at 16:30 Atenolol (Tenormin) 25 mg BID PO Last administered on 05/15/17 20:43; Admin Dose 25 MG; Start 05/12/17 at 21:00 Warfarin Sodium (Coumadin) 4 mg DAILY@17 GTB Last administered on 05/15/17 17 :49; Admin Dose 4 MG; Start 05/12/17 at 17:00 Nystatin (Nystatin Powder) 1 applic BID TOP ; Start 05/16/17 at 13:30 YAJAIRA ALVAREZ MD May 16, 2017 13:52
[2017-05-16] MEDS: WARFARIN 2 MG TAB GTB SCH (18:33)
[2017-05-16] MEDS: GUAIFENESIN 20 MG/ML 5ML CUP GTB PRN (21:59)
[2017-05-17] VITALS (11 sets, daily range): BP systolic 91–106; BP diastolic 48–66; PULSE 69–96; RESP 18–21
[2017-05-17] MEDS: DEXTROSE 5%-0.45% NACL 1,000 ML IV SCH ×2 (00:30→09:45)
[2017-05-17] MEDS: LEVALBUTEROL (NEB) 0.63 MG/3 ML AMP HHN SCH ×4 (02:00→21:08)
[2017-05-17 07:04] LABS: ABNORMAL IP MESSAGE 1; BASOPHIL # 0.1 10^3/ul (0.0-0.1); BASOPHILS % 0.8 % (0.0-2.0); EOSINOPHILS # 0.2 10^3/ul (0.0-0.5); EOSINOPHILS % 2.5 % (0.0-7.0); HEMATOCRIT 37.3 % (37.0-47.0); HEMOGLOBIN 11.6 g/dl (12.0-16.0); LYMPHOCYTES # 1.2 10^3/ul (0.8-2.9); MEAN CORPUSCULAR HEMOGLOBIN 26.1 pg (29.0-33.0); MEAN CORPUSCULAR HGB CONC 31.1 g/dl (32.0-37.0); MEAN PLATELET VOLUME 13.4 fl (7.4-10.4); MONOCYTE # 0.9 10^3/ul (0.3-0.9); MONOCYTES % 9.3 % (0.0-11.0); NEUTROPHIL # 6.8 10^3/ul (1.6-7.5); NEUTROPHILS % 73.6 % (39.0-77.0); PLATELET COUNT 332 10^3/UL (140-415); RED BLOOD COUNT 4.44 10^6/ul (4.20-5.40); RED CELL DISTRIBUTION WIDTH 16.4 % (11.5-14.5); WHITE BLOOD COUNT 9.2 10^3/ul (4.8-10.8)
[2017-05-17 07:09] LABS: POSITIVE DIFF @See below
[2017-05-17 07:27] LABS: CREATININE 0.88 mg/dl (0.44-1.00); POTASSIUM 4.3 mmol/L (3.5-5.1)
[2017-05-17] MEDS: NYSTATIN 30 GM POWDER BTL TOP SCH ×2 (09:00→21:02)
[2017-05-17] MEDS: ATENOLOL 50 MG TAB PO SCH ×2 (09:00→21:00)
[2017-05-17] MEDS: DIGOXIN 0.125 MG TAB NGT SCH (09:44)
[2017-05-17] MEDS: FUROSEMIDE 20 MG TAB GTB SCH (09:44)
[2017-05-17] MEDS: LANSOPRAZOLE 30 MG CAP GTB SCH (09:44)
[2017-05-17] MEDS: ENOXAPARIN 60 MG/0.6 ML SYG SC SCH ×2 (10:05→21:02)
[2017-05-17 11:34] LABS: INR 1.65; PROTIME 19.6 Sec (12.2-14.2); PT RATIO 1.5
--- NOTE | 2017-05-17 12:26 | CONS ---
Date/Time of Note Date/Time of Note DATE: 05/17/17 TIME: 12:24 Assessment/Plan Assessment/Plan Chief Complaint/Hosp Course IMPRESSION: 1. Atrial fibrillation-mainly rate controlled 2. History of cardiomyopathy with decreased left ventricular ejection fraction , last study approximately 45% to 50% by echo 01/2017. 3. Congestive heart failure by chest x-ray, systolic and diastolic, acute on chronic. 4. Hypernatremia-improved 5. History of mitral stenosis. 6. History of thalamic infarctions, prior cerebrovascular accident. 7. Urinary tract infection. 8. Dysphagia, status post gastrostomy tube. Recc: -Tele -serial ecg's -Continue atenolol as tolerated only -Continue lovenox to coumadin and make slight further increase -Continue PO lasix and follow volume status closely -Continue abx's and f/u cx data Problems: Consultation Date/Type/Reason Admit Date/Time May 07, 2017 at 02:40 Initial Consult Date 05/08/17 Type of Consultation: cardiology Reason for Consultation AF/cmy Referring Provider: ROXANA TORO MD Exam/Review of Systems Vital Signs Vitals Vital Signs Date Time Temp Pulse Resp B/P Pulse Ox O2 Delivery O2 Flow Rate FiO2 05/17/17 12:14 82 05/17/17 12:13 Room Air 05/17/17 11:27 97.6 18 91/48 97 05/17/17 08:03 21 05/17/17 02:55 2.0 Intake and Output 05/16/17 05/16/17 05/17/17 15:00 23:00 07:00 Intake Total 1020 ml 960 ml Balance 1020 ml 960 ml Exam Review of Systems: CONSTITUTIONAL: No fevers, chills. PULMONARY: No sob CARDIOVASCULAR: No chest pain/palpitations GASTROINTESTINAL: No nausea/vomiting. GENITOURINARY: No hematuria/dysuria. MUSCULOSKELETAL: No myagias/arthalgias. PSYCHIATRIC: The patient denies depression. NEUROLOGIC: lethargic Constitutional: alert, oriented Psych: no complaints Head: normocephalic ENMT: mucosa pink and moist Neck: jvd (9 cm water), supple Respiratory: diminished breath sounds (at bases/B) Cardiovascular: regular rate and rhythm Gastrointestinal: non-tender, soft Musculoskeletal: muscle tone (normal) Extremities: edema (none) Neurological: lethargic Results Result Diagram: 05/17/17 0646 05/17/17 0646 Results 24 hrs Laboratory Tests Test 05/17/17 06:46 05/17/17 10:43 White Blood Count 9.2 Red Blood Count 4.44 Hemoglobin 11.6 L Hematocrit 37.3 Mean Corpuscular Volume 84.0 Mean Corpuscular Hemoglobin 26.1 L Mean Corpuscular Hemoglobin Concent 31.1 L Red Cell Distribution Width 16.4 H Platelet Count 332 Mean Platelet Volume 13.4 H Neutrophils % 73.6 Lymphocytes % 13.0 L Monocytes % 9.3 Eosinophils % 2.5 Basophils % 0.8 Nucleated Red Blood Cells % 0.0 Neutrophils # 6.8 Lymphocytes # 1.2 Monocytes # 0.9 Eosinophils # 0.2 Basophils # 0.1 Nucleated Red Blood Cells # 0.0 Sodium Level 143 Potassium Level 4.3 Chloride Level 103 Carbon Dioxide Level 29 Anion Gap 15 Blood Urea Nitrogen 32 H Creatinine 0.88 Glucose Level 115 Calcium Level 10.0 Prothrombin Time 19.6 H Prothrombin Time Ratio 1.5 INR International Normalized Ratio 1.65 Medications Medications Current Medications Morphine Sulfate (morphine) 2 mg Q4H PRN IV PAIN Last administered on 05:05; Admin Dose 2 MG; Start 05/07/17 at 05:30 Ondansetron HCl (Zofran Inj) 4 mg Q6H PRN IV NAUSEA AND/OR VOMITING; Start 05/07/17 at 05:30 Enoxaparin Sodium (Lovenox) 60 mg Q12 SC Last administered on 05/17/17 10:05 ; Admin Dose 60 MG; Start 05/07/17 at 12:00 Furosemide (Lasix) 20 mg DAILY GTB Last administered on 05/17/17 09:44; Admin Dose 20 MG; Start 05/08/17 at 09:00 Lansoprazole 30 mg 30 mg DAILY GTB Last administered on 05/17/17 09:44; Admin Dose 30 MG; Start 05/08/17 at 09:00 Dextrose/Sodium Chloride (D5-1/2ns) 1,000 ml @ 80 mls/hr [id number] IV Last administered on 05/14/17 09:06; Admin Dose 80 MLS/HR; Start 05/08/17 at 16:30 Guaifenesin (Robitussin Liquid Cup) 15 mg QID PRN GTB COUGH Last administered on 05/16/17 21:59; Admin Dose 15 MG; Start 05/09/17 at 09:00 Acetaminophen (Tylenol Liquid) 650 mg Q4H PRN GTB PAIN AND OR ELEVATED TEMP Last administered on 05/11/17 20:46; Admin Dose 650 MG; Start 05/10/17 at 13:00 Digoxin (Digoxin) 0.125 mg DAILY NGT Last administered on 05/17/17 09:44; Admin Dose 0.125 MG; Start 05/11/17 at 09:00 Metoprolol Tartrate (Lopressor) 5 mg Q4H PRN IV HR>110 Hold SBP<100; Start 05/10/17 at 13:30 IV Flush (NS 10 ml) 10 ml PRN PRN IV IV PROTOCOL; Start 05/10/17 at 16:30 Atenolol (Tenormin) 25 mg BID PO Last administered on 05/16/17 21:19; Admin Dose 25 MG; Start 05/12/17 at 21:00 Warfarin Sodium (Coumadin) 4 mg DAILY@17 GTB Last administered on 05/16/17 18 :33; Admin Dose 4 MG; Start 05/12/17 at 17:00 Nystatin (Nystatin Powder) 1 applic BID TOP Last administered on 05/16/17 21: 19; Admin Dose 1 APPLIC; Start 05/16/17 at 13:30 MINOO REY 13, 2017 12:26
--- NOTE | 2017-05-17 15:57 | PN ---
Date/Time of Note Date/Time of Note DATE: 05/17/17 TIME: 15:54 Assessment/Plan VTE Prophylaxis VTE Prophylaxis Intervention: LMWH Lines/Catheters IV [facility] Assessment/Plan Chief Complaint/Hosp Course Atrial fibrillation at controlled rate, borderline blood pressure, afebrile, INR is 1.65 continue Coumadin and Lovenox. Assessment/Plan - Recurrent sepsis secondary pneumonia and UTI. Status post treatment with antibiotics. Dr. Hiro villeda is following in ID consultation. - Atrial fibrillation with rapid ventricular response. Continue telemetry monitoring Dr. Armenta is following and cardiology consultation. Continue Coumadin, Lovenox, digoxin. - Bilateral thalamic infarctions. - Dysphagia with G-tube. - Mitral stenosis - CHF, continue Lasix, monitor electrolytes - Hx Thrombosis of the bilateral cephalic veins. - History of VRE in urine Further recommendations based on clinical course. Plan of care discussed with Dr. Valdovinos. Problems: Exam/Review of Systems Vital Signs Vitals Vital Signs Date Time Temp Pulse Resp B/P Pulse Ox O2 Delivery O2 Flow Rate FiO2 05/17/17 13:47 98 21 05/17/17 13:46 79 20 05/17/17 12:13 Room Air 05/17/17 11:27 97.6 91/48 05/17/17 02:55 2.0 Intake and Output 05/16/17 05/16/17 05/17/17 15:00 23:00 07:00 Intake Total 1020 ml 960 ml Balance 1020 ml 960 ml Exam Constitutional: alert, oriented Respiratory: diminished breath sounds Cardiovascular: irregular rhythm Gastrointestinal: non-tender, other (G-tube), soft Neurological: nl mental status, other (Bilateral extremities weakness secondary to bilateral thalamic stroke) Results Result Diagram: 05/17/17 0646 05/17/17 0646 Results 24 hrs Laboratory Tests Test 05/17/17 06:46 05/17/17 10:43 White Blood Count 9.2 Red Blood Count 4.44 Hemoglobin 11.6 L Hematocrit 37.3 Mean Corpuscular Volume 84.0 Mean Corpuscular Hemoglobin 26.1 L Mean Corpuscular Hemoglobin Concent 31.1 L Red Cell Distribution Width 16.4 H Platelet Count 332 Mean Platelet Volume 13.4 H Neutrophils % 73.6 Lymphocytes % 13.0 L Monocytes % 9.3 Eosinophils % 2.5 Basophils % 0.8 Nucleated Red Blood Cells % 0.0 Neutrophils # 6.8 Lymphocytes # 1.2 Monocytes # 0.9 Eosinophils # 0.2 Basophils # 0.1 Nucleated Red Blood Cells # 0.0 Sodium Level 143 Potassium Level 4.3 Chloride Level 103 Carbon Dioxide Level 29 Anion Gap 15 Blood Urea Nitrogen 32 H Creatinine 0.88 Glucose Level 115 Calcium Level 10.0 Prothrombin Time 19.6 H Prothrombin Time Ratio 1.5 INR International Normalized Ratio 1.65 Medications Medications Current Medications Morphine Sulfate (morphine) 2 mg Q4H PRN IV PAIN Last administered on 05:05; Admin Dose 2 MG; Start 05/07/17 at 05:30 Ondansetron HCl (Zofran Inj) 4 mg Q6H PRN IV NAUSEA AND/OR VOMITING; Start 05/07/17 at 05:30 Enoxaparin Sodium (Lovenox) 60 mg Q12 SC Last administered on 05/17/17 10:05 ; Admin Dose 60 MG; Start 05/07/17 at 12:00 Furosemide (Lasix) 20 mg DAILY GTB Last administered on 05/17/17 09:44; Admin Dose 20 MG; Start 05/08/17 at 09:00 Lansoprazole 30 mg 30 mg DAILY GTB Last administered on 05/17/17 09:44; Admin Dose 30 MG; Start 05/08/17 at 09:00 Dextrose/Sodium Chloride (D5-1/2ns) 1,000 ml @ 80 mls/hr [id number] IV Last administered on 05/14/17 09:06; Admin Dose 80 MLS/HR; Start 05/08/17 at 16:30 Guaifenesin (Robitussin Liquid Cup) 15 mg QID PRN GTB COUGH Last administered on 05/16/17 21:59; Admin Dose 15 MG; Start 05/09/17 at 09:00 Acetaminophen (Tylenol Liquid) 650 mg Q4H PRN GTB PAIN AND OR ELEVATED TEMP Last administered on 05/11/17 20:46; Admin Dose 650 MG; Start 05/10/17 at 13:00 Digoxin (Digoxin) 0.125 mg DAILY NGT Last administered on 05/17/17 09:44; Admin Dose 0.125 MG; Start 05/11/17 at 09:00 Metoprolol Tartrate (Lopressor) 5 mg Q4H PRN IV HR>110 Hold SBP<100; Start 05/10/17 at 13:30 IV Flush (NS 10 ml) 10 ml PRN PRN IV IV PROTOCOL; Start 05/10/17 at 16:30 Atenolol (Tenormin) 25 mg BID PO Last administered on 05/16/17 21:19; Admin Dose 25 MG; Start 05/12/17 at 21:00 Nystatin (Nystatin Powder) 1 applic BID TOP Last administered on 05/16/17 21: 19; Admin Dose 1 APPLIC; Start 05/16/17 at 13:30 Warfarin Sodium (Coumadin) 5 mg DAILY@17 GTB ; Start 05/17/17 at 17:00 LAWRENCE PICKERING May 17, 2017 15:57
[2017-05-17] MEDS: WARFARIN 5 MG TAB GTB SCH (17:11)
--- NOTE | 2017-05-17 17:37 | CONS ---
Date/Time of Note Date/Time of Note DATE: 05/17/17 TIME: 17:36 Assessment/Plan Assessment/Plan Chief Complaint/Hosp Course - HCAP -s/p vanco & cefepime - UTI due to klebsiella - treated with cefepime - A fib with RVR - HR improved - H/o recurrent CVA/bilateral thalami, cerebral peduncles, periaqueductal midbrain and caroline with residual weakness - Dysphagia s/p PEG - H/o DVT - H/o recent sepsis prob d/t aspiration PNA/pneumonitis or bronchitis 04/2017 - H/o recent VRE in urine with no significant pyuria 04/25/17 - H/o sepsis due to bacteremia and UTI - H/o enterococcus bacteremia, tip of PICC grew Group B strep. Transthoracic echo on 01/16/2017, 03/25/2017 did not reveal valvular vegetation but difficult to assess MV. Pt was supposed to take an empiric course of endocarditis through 04/23/2017; Pt's said that she had completed antibiotics on 04/24/2017 - H/o rheumatic heart disease (probable rheumatic, severe MS on transthoracic echo) - H/o recurrent UTI/CA-UTI (E. coli 03/21/17, proteus 02/11/17, C. glabrata 02/09/17 ) - H/o diffuse moderate degree of gastritis s/p EGD 02/15/2017 - H/o gastritis due to H. pylori based on pathology 02/15/2017; Pt completed clarithromycin-based regimen (02/20/2017-), [id number] - H/o bleeding from GT site, and blood clots in tube feed, resolved - H/o possible aspiration - H/o encephalopathy due to CVA. CSF from 01/19/2017: WBC=3, RBC=0, glu 53, pro= 61, CSF ([place] serology negative, HSV negative, cocci CF negative, encephalitis meningitis panel could not be done due to a lack of sample), serum ([place] PCR negative, crypto antigen negative, cocci CF negative, histo CF negative). - H/o MARIELA - H/o LLE ischemia s/p thrombolysis and subsequent open thrombectomy and fasciotomy at [facility] 09/2015 - H/o thrombus on DEBBIE per records from [facility] - Intertrigo at groin area - on nystatin Recommendations: - Monitor closely off antibiotics Management d/w patient, RN Sarita, and Dr. Bosch Problems: Consultation Date/Type/Reason Admit Date/Time May 07, 2017 at 02:40 Initial Consult Date 05/08/17 Type of Consultation: Infectious Disease Referring Provider: ROXANA TORO MD 24 HR Interval Summary Free Text/Dictation No acute issues; awaiting SNF placement. C/o RANDOLPH rating 8/10 and requesting for Tylenol. Denies CP, SOB, n/v/d, dysuria. Exam/Review of Systems Vital Signs Vitals Vital Signs Date Time Temp Pulse Resp B/P Pulse Ox O2 Delivery O2 Flow Rate FiO2 05/17/17 16:45 Room Air 05/17/17 16:15 96 05/17/17 13:47 98 21 05/17/17 13:46 20 05/17/17 11:27 97.6 91/48 05/17/17 02:55 2.0 Intake and Output 05/16/17 05/16/17 05/17/17 15:00 23:00 07:00 Intake Total 1020 ml 960 ml Balance 1020 ml 960 ml Exam Constitutional: alert, oriented, well developed, other (using supplement O2 via NC at 2L) Head: atraumatic, normocephalic Eyes: nl sclera, other (mild ptosis of L eye -unchanged) Neck: supple Respiratory: diminished breath sounds Cardiovascular: irregular rhythm Gastrointestinal: soft, non-tender, other (GT intact) Genitourinary - Female: other (no Lees) Musculoskeletal: nl extremities to inspection Extremities: normal pulses, No edema Neurological: other (+tracking, Pashto speaking, slow to respond; ESTEVEZ) Skin: nl turgor, rash or lesions (fungal rash noted groin area) Results Result Diagram: 05/17/17 0646 05/17/17 0646 Results 24 hrs Laboratory Tests Test 05/17/17 06:46 05/17/17 10:43 White Blood Count 9.2 Red Blood Count 4.44 Hemoglobin 11.6 L Hematocrit 37.3 Mean Corpuscular Volume 84.0 Mean Corpuscular Hemoglobin 26.1 L Mean Corpuscular Hemoglobin Concent 31.1 L Red Cell Distribution Width 16.4 H Platelet Count 332 Mean Platelet Volume 13.4 H Neutrophils % 73.6 Lymphocytes % 13.0 L Monocytes % 9.3 Eosinophils % 2.5 Basophils % 0.8 Nucleated Red Blood Cells % 0.0 Neutrophils # 6.8 Lymphocytes # 1.2 Monocytes # 0.9 Eosinophils # 0.2 Basophils # 0.1 Nucleated Red Blood Cells # 0.0 Sodium Level 143 Potassium Level 4.3 Chloride Level 103 Carbon Dioxide Level 29 Anion Gap 15 Blood Urea Nitrogen 32 H Creatinine 0.88 Glucose Level 115 Calcium Level 10.0 Prothrombin Time 19.6 H Prothrombin Time Ratio 1.5 INR International Normalized Ratio 1.65 Medications Medications Current Medications Morphine Sulfate (morphine) 2 mg Q4H PRN IV PAIN Last administered on 05:05; Admin Dose 2 MG; Start 05/07/17 at 05:30 Ondansetron HCl (Zofran Inj) 4 mg Q6H PRN IV NAUSEA AND/OR VOMITING; Start 05/07/17 at 05:30 Enoxaparin Sodium (Lovenox) 60 mg Q12 SC Last administered on 05/17/17 10:05 ; Admin Dose 60 MG; Start 05/07/17 at 12:00 Furosemide (Lasix) 20 mg DAILY GTB Last administered on 05/17/17 09:44; Admin Dose 20 MG; Start 05/08/17 at 09:00 Lansoprazole 30 mg 30 mg DAILY GTB Last administered on 05/17/17 09:44; Admin Dose 30 MG; Start 05/08/17 at 09:00 Dextrose/Sodium Chloride (D5-1/2ns) 1,000 ml @ 80 mls/hr [id number] IV Last administered on 05/14/17 09:06; Admin Dose 80 MLS/HR; Start 05/08/17 at 16:30 Guaifenesin (Robitussin Liquid Cup) 15 mg QID PRN GTB COUGH Last administered on 05/16/17 21:59; Admin Dose 15 MG; Start 05/09/17 at 09:00 Acetaminophen (Tylenol Liquid) 650 mg Q4H PRN GTB PAIN AND OR ELEVATED TEMP Last administered on 05/11/17 20:46; Admin Dose 650 MG; Start 05/10/17 at 13:00 Digoxin (Digoxin) 0.125 mg DAILY NGT Last administered on 11/13/17at 09:44; Admin Dose 0.125 MG; Start 05/11/17 at 09:00 Metoprolol Tartrate (Lopressor) 5 mg Q4H PRN IV HR>110 Hold SBP<100; Start 05/10/17 at 13:30 IV Flush (NS 10 ml) 10 ml PRN PRN IV IV PROTOCOL; Start 05/10/17 at 16:30 Atenolol (Tenormin) 25 mg BID PO Last administered on 05/16/17 21:19; Admin Dose 25 MG; Start 05/12/17 at 21:00 Nystatin (Nystatin Powder) 1 applic BID TOP Last administered on 05/16/17 21: 19; Admin Dose 1 APPLIC; Start 05/16/17 at 13:30 Warfarin Sodium (Coumadin) 5 mg DAILY@17 GTB Last administered on 05/17/17 17 :11; Admin Dose 5 MG; Start 05/17/17 at 17:00 GIRISH SCHMITZ NP May 17, 2017 17:37
[2017-05-18] VITALS (11 sets, daily range): BP systolic 98–136; BP diastolic 50–67; PULSE 76–102; RESP 17–22
[2017-05-18] MEDS: LEVALBUTEROL (NEB) 0.63 MG/3 ML AMP HHN SCH ×4 (02:00→19:39)
[2017-05-18] MEDS: DEXTROSE 5%-0.45% NACL 1,000 ML IV SCH ×3 (03:45→17:02)
[2017-05-18 07:16] LABS: BASOPHIL # 0.1 10^3/ul (0.0-0.1); EOSINOPHILS # 0.2 10^3/ul (0.0-0.5); EOSINOPHILS % 2.4 % (0.0-7.0); HEMATOCRIT 37.6 % (37.0-47.0); HEMOGLOBIN 11.9 g/dl (12.0-16.0); LYMPHOCYTES # 1.5 10^3/ul (0.8-2.9); LYMPHOCYTES % 16.3 % (15.0-51.0); MEAN CORPUSCULAR HEMOGLOBIN 26.7 pg (29.0-33.0); MEAN CORPUSCULAR HGB CONC 31.6 g/dl (32.0-37.0); MEAN CORPUSCULAR VOLUME 84.3 fl (82.0-101.0); MEAN PLATELET VOLUME 12.8 fl (7.4-10.4); MONOCYTE # 0.9 10^3/ul (0.3-0.9); MONOCYTES % 10.3 % (0.0-11.0); NEUTROPHIL # 6.3 10^3/ul (1.6-7.5); NEUTROPHILS % 69.2 % (39.0-77.0); PLATELET COUNT 327 10^3/UL (140-415); RED BLOOD COUNT 4.46 10^6/ul (4.20-5.40); RED CELL DISTRIBUTION WIDTH 16.4 % (11.5-14.5); WHITE BLOOD COUNT 9.1 10^3/ul (4.8-10.8)
[2017-05-18 07:32] LABS: INR 1.75; PROTIME 20.6 Sec (12.2-14.2); PT RATIO 1.6
[2017-05-18 07:33] LABS: CALCIUM 9.9 mg/dl (8.4-10.2); CREATININE 0.91 mg/dl (0.44-1.00); POTASSIUM 4.2 mmol/L (3.5-5.1)
[2017-05-18] MEDS: NYSTATIN 30 GM POWDER BTL TOP SCH ×2 (09:00→20:21)
[2017-05-18] MEDS: FUROSEMIDE 20 MG TAB GTB SCH (09:33)
[2017-05-18] MEDS: LANSOPRAZOLE 30 MG CAP GTB SCH (09:34)
[2017-05-18] MEDS: DIGOXIN 0.125 MG TAB NGT SCH (09:34)
[2017-05-18] MEDS: ATENOLOL 50 MG TAB PO SCH ×2 (09:34→20:21)
[2017-05-18] MEDS: ENOXAPARIN 60 MG/0.6 ML SYG SC SCH ×2 (10:27→20:33)
--- NOTE | 2017-05-18 11:03 | CONS ---
Date/Time of Note Date/Time of Note DATE: 05/18/17 TIME: 11:02 Assessment/Plan Assessment/Plan Additional Assessment/Plan 1. Atrial fibrillation-mainly rate controlled - no intervention planned. NO indication for pacer now. STABLE on tele. RATE CONTROLLED. 2. History of cardiomyopathy with decreased left ventricular ejection fraction , last study approximately 45% to 50% by echo 01/2017.No indication for ICD now. 3. Congestive heart failure by chest x-ray, systolic and diastolic, acute on chronic - stable fluid status now. 4. Hypernatremia-improved 5. History of mitral stenosis- no intervention planned now. STABLE by exam. 6. History of thalamic infarctions, prior cerebrovascular accident. 7. Urinary tract infection- completed anti-Bx, held now - will follow with ID. OFF ALL Anti_Bx, better - family at bedside - happy with care. ID follows. 8. Dysphagia, status post gastrostomy tube. Consultation Date/Type/Reason Admit Date/Time May 07, 2017 at 02:40 Initial Consult Date 05/08/17 Type of Consultation: Infectious Disease Referring Provider: ROXANA TORO MD 24 HR Interval Summary Free Text/Dictation NO acute events - rate controlled - will monitor clinically. ROS: No fever, no chills, no nausea, no vomiting, no diarrhea/constipation No recent weight changes No chest pain, no PND, no orthopnea No dizziness, blurred vision No thirst, no heat or cold intolerance Exam/Review of Systems Vital Signs Vitals Vital Signs Date Time Temp Pulse Resp B/P Pulse Ox O2 Delivery O2 Flow Rate FiO2 05/18/17 08:11 91 05/18/17 08:06 98 21 05/18/17 08:05 20 05/18/17 07:36 Room Air 05/18/17 07:19 98.3 103/52 05/17/17 02:55 2.0 Intake and Output 05/17/17 05/17/17 05/18/17 15:00 23:00 07:00 Intake Total 1020 ml 1260 ml Balance 1020 ml 1260 ml Exam General: WN/WD/NAD, AOx 2-3 HEENT: Unicetric/atraumatic/EOMI (follow commands) NECK: JVD elevated, no thyromegaly Lymph: no lymphadenopathy HEART: irregular with no S3, II/ systolic murmur at apex LUNGS: Coarse sounds ABD: soft, NT, ND, +BS : Intact Neuro: h/o CVA SKIN: chronic changes EXT: trace edema Results Result Diagram: 05/18/1770405/18/17 0704 Results 24 hrs Laboratory Tests Test 05/18/17 07:04 05/18/17 07:05 Prothrombin Time 20.6 H Prothrombin Time Ratio 1.6 INR International Normalized Ratio 1.75 Sodium Level 143 Potassium Level 4.2 Chloride Level 102 Carbon Dioxide Level 30 Anion Gap 15 Blood Urea Nitrogen 33 H Creatinine 0.91 Glucose Level 118 Calcium Level 9.9 White Blood Count 9.1 Red Blood Count 4.46 Hemoglobin 11.9 L Hematocrit 37.6 Mean Corpuscular Volume 84.3 Mean Corpuscular Hemoglobin 26.7 L Mean Corpuscular Hemoglobin Concent 31.6 L Red Cell Distribution Width 16.4 H Platelet Count 327 Mean Platelet Volume 12.8 H Neutrophils % 69.2 Lymphocytes % 16.3 Monocytes % 10.3 Eosinophils % 2.4 Basophils % 1.0 Nucleated Red Blood Cells % 0.0 Neutrophils # 6.3 Lymphocytes # 1.5 Monocytes # 0.9 Eosinophils # 0.2 Basophils # 0.1 Nucleated Red Blood Cells # 0.0 Medications Medications Current Medications Morphine Sulfate (morphine) 2 mg Q4H PRN IV PAIN Last administered on 05:05; Admin Dose 2 MG; Start 05/07/17 at 05:30 Ondansetron HCl (Zofran Inj) 4 mg Q6H PRN IV NAUSEA AND/OR VOMITING; Start 05/07/17 at 05:30 Enoxaparin Sodium (Lovenox) 60 mg Q12 SC Last administered on 05/18/17 10:27 ; Admin Dose 60 MG; Start 05/07/17 at 12:00 Furosemide (Lasix) 20 mg DAILY GTB Last administered on 05/18/17 09:33; Admin Dose 20 MG; Start 05/08/17 at 09:00 Lansoprazole 30 mg 30 mg DAILY GTB Last administered on 05/18/17 09:34; Admin Dose 30 MG; Start 05/08/17 at 09:00 Dextrose/Sodium Chloride (D5-1/2ns) 1,000 ml @ 80 mls/hr [id number] IV Last administered on 05/18/17 03:45; Admin Dose 80 MLS/HR; Start 05/08/17 at 16:30 Guaifenesin (Robitussin Liquid Cup) 15 mg QID PRN GTB COUGH Last administered on 05/16/17 21:59; Admin Dose 15 MG; Start 05/09/17 at 09:00 Acetaminophen (Tylenol Liquid) 650 mg Q4H PRN GTB PAIN AND OR ELEVATED TEMP Last administered on 05/11/17 20:46; Admin Dose 650 MG; Start 05/10/17 at 13:00 Digoxin (Digoxin) 0.125 mg DAILY NGT Last administered on 05/18/17 09:34; Admin Dose 0.125 MG; Start 05/11/17 at 09:00 Metoprolol Tartrate (Lopressor) 5 mg Q4H PRN IV HR>110 Hold SBP<100; Start 05/10/17 at 13:30 IV Flush (NS 10 ml) 10 ml PRN PRN IV IV PROTOCOL; Start 05/10/17 at 16:30 Atenolol (Tenormin) 25 mg BID PO Last administered on 05/18/17 09:34; Admin Dose 25 MG; Start 05/12/17 at 21:00 Nystatin (Nystatin Powder) 1 applic BID TOP Last administered on 05/17/17 21: 02; Admin Dose 1 APPLIC; Start 05/16/17 at 13:30 Warfarin Sodium (Coumadin) 5 mg DAILY@17 GTB Last administered on 05/17/17 17 :11; Admin Dose 5 MG; Start 05/17/17 at 17:00 YAJAIRA ALVAREZ MD May 18, 2017 11:03
--- NOTE | 2017-05-18 15:30 | CONS ---
Date/Time of Note Date/Time of Note DATE: 05/18/17 TIME: 15:30 Assessment/Plan Assessment/Plan Chief Complaint/Hosp Course - HCAP -s/p vanco & cefepime - UTI due to klebsiella - treated with cefepime - A fib with RVR - HR improved - H/o recurrent CVA/bilateral thalami, cerebral peduncles, periaqueductal midbrain and caroline with residual weakness - Dysphagia s/p PEG - H/o DVT - H/o recent sepsis prob d/t aspiration PNA/pneumonitis or bronchitis 04/2017 - H/o recent VRE in urine with no significant pyuria 04/25/17 - H/o sepsis due to bacteremia and UTI - H/o enterococcus bacteremia, tip of PICC grew Group B strep. Transthoracic echo on 01/16/2017, 03/25/2017 did not reveal valvular vegetation but difficult to assess MV. Pt was supposed to take an empiric course of endocarditis through 04/23/2017; Pt's said that she had completed antibiotics on 04/24/2017 - H/o rheumatic heart disease (probable rheumatic, severe MS on transthoracic echo) - H/o recurrent UTI/CA-UTI (E. coli 03/21/17, proteus 02/11/17, C. glabrata 02/09/17 ) - H/o diffuse moderate degree of gastritis s/p EGD 02/15/2017 - H/o gastritis due to H. 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 CSF from 01/19/2017: WBC=3, RBC=0, glu 53, pro= 61, CSF ([place] serology negative, HSV negative, cocci CF negative, encephalitis meningitis panel could not be done due to a lack of sample), serum ([place] PCR negative, crypto antigen negative, cocci CF negative, histo CF negative). - H/o MARIELA - H/o LLE ischemia s/p thrombolysis and subsequent open thrombectomy and fasciotomy at [facility] 09/2015 - H/o thrombus on DEBBIE per records from [facility] - Intertrigo at groin area - on nystatin Recommendations: - Monitor closely off antibiotics Management d/w patient, pt's son Juan, NARESH Stein, and Dr. Bosch Problems: Consultation Date/Type/Reason Admit Date/Time May 07, 2017 at 02:40 Initial Consult Date 05/08/17 Type of Consultation: Infectious Disease Referring Provider: ROXANA TORO MD 24 HR Interval Summary Free Text/Dictation No acute issues per d/w nursing. Awaiting placement. C/o RANDOLPH. SonJuan, reports pt has had intermittent RANDOLPH's "even before she was hospitalized". No SOB, n/v/d. Exam/Review of Systems Vital Signs Vitals Vital Signs Date Time Temp Pulse Resp B/P Pulse Ox O2 Delivery O2 Flow Rate FiO2 05/18/17 13:49 96 21 05/18/17 13:48 76 20 05/18/17 13:14 Room Air 05/18/17 11:38 98.0 100/67 05/17/17 02:55 2.0 Intake and Output 05/17/17 05/17/17 05/18/17 14:59 22:59 06:59 Intake Total 1020 ml 1260 ml Balance 1020 ml 1260 ml Exam Constitutional: alert, oriented, well developed, other (now on RA) Head: atraumatic, normocephalic Eyes: nl sclera, other (mild ptosis of L eye -unchanged) Neck: supple Respiratory: diminished breath sounds Cardiovascular: irregular rhythm Gastrointestinal: soft, non-tender, other (GT intact) Genitourinary - Female: other (no Lees) Musculoskeletal: nl extremities to inspection Extremities: normal pulses, No edema Neurological: other (+tracking, Macedonian speaking, slow to respond; ESTEVEZ) Skin: nl turgor, rash or lesions (fungal rash noted groin area-improving) Results Result Diagram: 05/18/17 0705 05/18/17 0704 Results 24 hrs Laboratory Tests Test 05/18/17 07:04 05/18/17 07:05 Prothrombin Time 20.6 H Prothrombin Time Ratio 1.6 INR International Normalized Ratio 1.75 Sodium Level 143 Potassium Level 4.2 Chloride Level 102 Carbon Dioxide Level 30 Anion Gap 15 Blood Urea Nitrogen 33 H Creatinine 0.91 Glucose Level 118 Calcium Level 9.9 White Blood Count 9.1 Red Blood Count 4.46 Hemoglobin 11.9 L Hematocrit 37.6 Mean Corpuscular Volume 84.3 Mean Corpuscular Hemoglobin 26.7 L Mean Corpuscular Hemoglobin Concent 31.6 L Red Cell Distribution Width 16.4 H Platelet Count 327 Mean Platelet Volume 12.8 H Neutrophils % 69.2 Lymphocytes % 16.3 Monocytes % 10.3 Eosinophils % 2.4 Basophils % 1.0 Nucleated Red Blood Cells % 0.0 Neutrophils # 6.3 Lymphocytes # 1.5 Monocytes # 0.9 Eosinophils # 0.2 Basophils # 0.1 Nucleated Red Blood Cells # 0.0 Medications Medications Current Medications Morphine Sulfate (morphine) 2 mg Q4H PRN IV PAIN Last administered on 05:05; Admin Dose 2 MG; Start 05/07/17 at 05:30 Ondansetron HCl (Zofran Inj) 4 mg Q6H PRN IV NAUSEA AND/OR VOMITING; Start 05/07/17 at 05:30 Enoxaparin Sodium (Lovenox) 60 mg Q12 SC Last administered on 05/18/17 10:27 ; Admin Dose 60 MG; Start 05/07/17 at 12:00 Furosemide (Lasix) 20 mg DAILY GTB Last administered on 05/18/17 09:33; Admin Dose 20 MG; Start 05/08/17 at 09:00 Lansoprazole 30 mg 30 mg DAILY GTB Last administered on 05/18/17 09:34; Admin Dose 30 MG; Start 05/08/17 at 09:00 Dextrose/Sodium Chloride (D5-1/2ns) 1,000 ml @ 80 mls/hr [id number] IV Last administered on 05/18/17 03:45; Admin Dose 80 MLS/HR; Start 05/08/17 at 16:30 Guaifenesin (Robitussin Liquid Cup) 15 mg QID PRN GTB COUGH Last administered on 05/16/17 21:59; Admin Dose 15 MG; Start 05/09/17 at 09:00 Acetaminophen (Tylenol Liquid) 650 mg Q4H PRN GTB PAIN AND OR ELEVATED TEMP Last administered on 05/11/17 20:46; Admin Dose 650 MG; Start 05/10/17 at 13:00 Digoxin (Digoxin) 0.125 mg DAILY NGT Last administered on 05/18/17 09:34; Admin Dose 0.125 MG; Start 05/11/17 at 09:00 Metoprolol Tartrate (Lopressor) 5 mg Q4H PRN IV HR>110 Hold SBP<100; Start 05/10/17 at 13:30 IV Flush (NS 10 ml) 10 ml PRN PRN IV IV PROTOCOL; Start 05/10/17 at 16:30 Atenolol (Tenormin) 25 mg BID PO Last administered on 05/18/17 09:34; Admin Dose 25 MG; Start 05/12/17 at 21:00 Nystatin (Nystatin Powder) 1 applic BID TOP Last administered on 05/17/17 21: 02; Admin Dose 1 APPLIC; Start 05/16/17 at 13:30 Warfarin Sodium (Coumadin) 5 mg DAILY@17 GTB Last administered on 05/17/17 17 :11; Admin Dose 5 MG; Start 05/17/17 at 17:00 GIRISH SCHMITZ NP May 18, 2017 15:30
--- NOTE | 2017-05-18 16:42 | PN ---
Date/Time of Note Date/Time of Note DATE: 05/18/17 TIME: 16:40 Assessment/Plan VTE Prophylaxis VTE Prophylaxis Intervention: LMWH, other Lines/Catheters IV [facility] [place] [facility] Urinary Cath still in place: No Assessment/Plan Chief Complaint/Hosp Course Atrial fibrillation at controlled rate, borderline blood pressure, afebrile, INR is 1.7 continue Coumadin and Lovenox. Assessment/Plan - Recurrent sepsis secondary pneumonia and UTI. Status post treatment with antibiotics. Dr. Hiro villeda is following in ID consultation. - Atrial fibrillation with rapid ventricular response. Continue telemetry monitoring Dr. Armenta is following and cardiology consultation. Continue Coumadin, Lovenox, digoxin. - Bilateral thalamic infarctions. - Dysphagia with G-tube. - Mitral stenosis - CHF, continue Lasix, monitor electrolytes - Hx Thrombosis of the bilateral cephalic veins. - History of VRE in urine Further recommendations based on clinical course. Plan of care discussed with Dr. Valdovinos. Problems: Exam/Review of Systems Vital Signs Vitals Vital Signs Date Time Temp Pulse Resp B/P Pulse Ox O2 Delivery O2 Flow Rate FiO2 05/18/17 16:10 76 05/18/17 15:56 Room Air 05/18/17 15:48 98.6 22 136/66 97 05/18/17 13:49 21 05/17/17 02:55 2.0 Intake and Output 05/17/17 05/17/17 05/18/17 15:00 23:00 07:00 Intake Total 1020 ml 1260 ml Balance 1020 ml 1260 ml Exam Constitutional: alert, oriented Respiratory: diminished breath sounds Cardiovascular: irregular rhythm Gastrointestinal: non-tender, other (G-tube), soft Neurological: nl mental status, other (Bilateral extremities weakness secondary to bilateral thalamic stroke) Results Result Diagram: 05/18/17 0705 05/18/17 0704 Results 24 hrs Laboratory Tests Test 05/18/17 07:04 05/18/17 07:05 Prothrombin Time 20.6 H Prothrombin Time Ratio 1.6 INR International Normalized Ratio 1.75 Sodium Level 143 Potassium Level 4.2 Chloride Level 102 Carbon Dioxide Level 30 Anion Gap 15 Blood Urea Nitrogen 33 H Creatinine 0.91 Glucose Level 118 Calcium Level 9.9 White Blood Count 9.1 Red Blood Count 4.46 Hemoglobin 11.9 L Hematocrit 37.6 Mean Corpuscular Volume 84.3 Mean Corpuscular Hemoglobin 26.7 L Mean Corpuscular Hemoglobin Concent 31.6 L Red Cell Distribution Width 16.4 H Platelet Count 327 Mean Platelet Volume 12.8 H Neutrophils % 69.2 Lymphocytes % 16.3 Monocytes % 10.3 Eosinophils % 2.4 Basophils % 1.0 Nucleated Red Blood Cells % 0.0 Neutrophils # 6.3 Lymphocytes # 1.5 Monocytes # 0.9 Eosinophils # 0.2 Basophils # 0.1 Nucleated Red Blood Cells # 0.0 Medications Medications Current Medications Morphine Sulfate (morphine) 2 mg Q4H PRN IV PAIN Last administered on 05:05; Admin Dose 2 MG; Start 05/07/17 at 05:30 Ondansetron HCl (Zofran Inj) 4 mg Q6H PRN IV NAUSEA AND/OR VOMITING; Start 05/07/17 at 05:30 Enoxaparin Sodium (Lovenox) 60 mg Q12 SC Last administered on 05/18/17 10:27 ; Admin Dose 60 MG; Start 05/07/17 at 12:00 Furosemide (Lasix) 20 mg DAILY GTB Last administered on 05/18/17 09:33; Admin Dose 20 MG; Start 05/08/17 at 09:00 Lansoprazole 30 mg 30 mg DAILY GTB Last administered on 05/18/17 09:34; Admin Dose 30 MG; Start 05/08/17 at 09:00 Dextrose/Sodium Chloride (D5-1/2ns) 1,000 ml @ 80 mls/hr [id number] IV Last administered on 05/18/17 03:45; Admin Dose 80 MLS/HR; Start 05/08/17 at 16:30 Guaifenesin (Robitussin Liquid Cup) 15 mg QID PRN GTB COUGH Last administered on 05/16/17 21:59; Admin Dose 15 MG; Start 05/09/17 at 09:00 Acetaminophen (Tylenol Liquid) 650 mg Q4H PRN GTB PAIN AND OR ELEVATED TEMP Last administered on 05/11/17 20:46; Admin Dose 650 MG; Start 05/10/17 at 13:00 Digoxin (Digoxin) 0.125 mg DAILY NGT Last administered on 05/18/17 09:34; Admin Dose 0.125 MG; Start 05/11/17 at 09:00 Metoprolol Tartrate (Lopressor) 5 mg Q4H PRN IV HR>110 Hold SBP<100; Start 05/10/17 at 13:30 IV Flush (NS 10 ml) 10 ml PRN PRN IV IV PROTOCOL; Start 05/10/17 at 16:30 Atenolol (Tenormin) 25 mg BID PO Last administered on 05/18/17 09:34; Admin Dose 25 MG; Start 05/12/17 at 21:00 Nystatin (Nystatin Powder) 1 applic BID TOP Last administered on 05/17/17 21: 02; Admin Dose 1 APPLIC; Start 05/16/17 at 13:30 Warfarin Sodium (Coumadin) 5 mg DAILY@17 GTB Last administered on 05/17/17 17 :11; Admin Dose 5 MG; Start 05/17/17 at 17:00 LAWRENCE PICKERING May 18, 2017 16:42
[2017-05-18] MEDS: WARFARIN 5 MG TAB GTB SCH (17:01)
[2017-05-18] MEDS: GUAIFENESIN 20 MG/ML 5ML CUP GTB PRN (22:57)
[2017-05-18] MEDS: ACETAMINOPHEN 650MG/20.3ML CUP GTB PRN (22:57)
[2017-05-19] VITALS (10 sets, daily range): BP systolic 91–128; BP diastolic 44–58; PULSE 62–91; RESP 17–19
[2017-05-19] MEDS: LEVALBUTEROL (NEB) 0.63 MG/3 ML AMP HHN SCH ×3 (01:02→13:03)
[2017-05-19] MEDS: DEXTROSE 5%-0.45% NACL 1,000 ML IV SCH ×2 (03:06→15:20)
--- NOTE | 2017-05-19 06:09 | CONS ---
Date/Time of Note Date/Time of Note DATE: 05/19/17 TIME: 06:08 Assessment/Plan Assessment/Plan Chief Complaint/Hosp Course - HCAP -s/p vanco & cefepime - UTI due to klebsiella - treated with cefepime - A fib with RVR - HR improved - H/o recurrent CVA/bilateral thalami, cerebral peduncles, periaqueductal midbrain and caroline with residual weakness - Dysphagia s/p PEG - H/o DVT - H/o recent sepsis prob d/t aspiration PNA/pneumonitis or bronchitis 04/2017 - H/o recent VRE in urine with no significant pyuria 04/25/17 - H/o sepsis due to bacteremia and UTI - H/o enterococcus bacteremia, tip of PICC grew Group B strep. Transthoracic echo on 01/16/2017, 03/25/2017 did not reveal valvular vegetation but difficult to assess MV. Pt was supposed to take an empiric course of endocarditis through 04/23/2017; Pt's said that she had completed antibiotics on 04/24/2017 - H/o rheumatic heart disease (probable rheumatic, severe MS on transthoracic echo) - H/o recurrent UTI/CA-UTI (E. coli 03/21/17, proteus 02/11/17, C. glabrata 02/09/17 ) - H/o diffuse moderate degree of gastritis s/p EGD 02/15/2017 - H/o gastritis due to H. 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 CSF from 01/19/2017: WBC=3, RBC=0, glu 53, pro= 61, CSF ([place] serology negative, HSV negative, cocci CF negative, encephalitis meningitis panel could not be done due to a lack of sample), serum ([place] PCR negative, crypto antigen negative, cocci CF negative, histo CF negative). - H/o MARIELA - H/o LLE ischemia s/p thrombolysis and subsequent open thrombectomy and fasciotomy at [facility] 09/2015 - H/o thrombus on DEBBIE per records from [facility] - Intertrigo at groin area - on nystatin Recommendations: - Monitor closely off antibiotics Problems: Consultation Date/Type/Reason Admit Date/Time May 07, 2017 at 02:40 Initial Consult Date 05/08/17 Type of Consultation: Infectious Disease Referring Provider: ROXANA TORO MD Exam/Review of Systems Vital Signs Vitals Vital Signs Date Time Temp Pulse Resp B/P Pulse Ox O2 Delivery O2 Flow Rate FiO2 05/19/17 05:22 98.3 77 17 109/58 96 05/18/17 19:39 21 05/18/17 15:56 Room Air 05/17/17 02:55 2.0 Intake and Output 05/18/17 05/18/17 05/19/17 14:59 22:59 06:59 Intake Total 1500 ml Balance 1500 ml Results Result Diagram: 05/18/17 0705 05/18/17 0704 Results 24 hrs Laboratory Tests Test 05/18/17 07:04 05/18/17 07:05 Prothrombin Time 20.6 H Prothrombin Time Ratio 1.6 INR International Normalized Ratio 1.75 Sodium Level 143 Potassium Level 4.2 Chloride Level 102 Carbon Dioxide Level 30 Anion Gap 15 Blood Urea Nitrogen 33 H Creatinine 0.91 Glucose Level 118 Calcium Level 9.9 White Blood Count 9.1 Red Blood Count 4.46 Hemoglobin 11.9 L Hematocrit 37.6 Mean Corpuscular Volume 84.3 Mean Corpuscular Hemoglobin 26.7 L Mean Corpuscular Hemoglobin Concent 31.6 L Red Cell Distribution Width 16.4 H Platelet Count 327 Mean Platelet Volume 12.8 H Neutrophils % 69.2 Lymphocytes % 16.3 Monocytes % 10.3 Eosinophils % 2.4 Basophils % 1.0 Nucleated Red Blood Cells % 0.0 Neutrophils # 6.3 Lymphocytes # 1.5 Monocytes # 0.9 Eosinophils # 0.2 Basophils # 0.1 Nucleated Red Blood Cells # 0.0 Medications Medications Current Medications Morphine Sulfate (morphine) 2 mg Q4H PRN IV PAIN Last administered on 05:05; Admin Dose 2 MG; Start 05/07/17 at 05:30 Ondansetron HCl (Zofran Inj) 4 mg Q6H PRN IV NAUSEA AND/OR VOMITING; Start 05/07/17 at 05:30 Enoxaparin Sodium (Lovenox) 60 mg Q12 SC Last administered on 05/18/17 20:33 ; Admin Dose 60 MG; Start 05/07/17 at 12:00 Furosemide (Lasix) 20 mg DAILY GTB Last administered on 05/18/17 09:33; Admin Dose 20 MG; Start 05/08/17 at 09:00 Lansoprazole 30 mg 30 mg DAILY GTB Last administered on 05/18/17 09:34; Admin Dose 30 MG; Start 05/08/17 at 09:00 Dextrose/Sodium Chloride (D5-1/2ns) 1,000 ml @ 80 mls/hr [id number] IV Last administered on 05/19/17 03:06; Admin Dose 80 MLS/HR; Start 05/08/17 at 16:30 Guaifenesin (Robitussin Liquid Cup) 15 mg QID PRN GTB COUGH Last administered on 05/18/17 22:57; Admin Dose 15 MG; Start 05/09/17 at 09:00 Acetaminophen (Tylenol Liquid) 650 mg Q4H PRN GTB PAIN AND OR ELEVATED TEMP Last administered on 05/18/17 22:57; Admin Dose 650 MG; Start 05/10/17 at 13: 00 Digoxin (Digoxin) 0.125 mg DAILY NGT Last administered on 05/18/17 09:34; Admin Dose 0.125 MG; Start 05/11/17 at 09:00 Metoprolol Tartrate (Lopressor) 5 mg Q4H PRN IV HR>110 Hold SBP<100; Start 05/10/17 at 13:30 IV Flush (NS 10 ml) 10 ml PRN PRN IV IV PROTOCOL; Start 05/10/17 at 16:30 Atenolol (Tenormin) 25 mg BID PO Last administered on 05/18/17 20:21; Admin Dose 25 MG; Start 05/12/17 at 21:00 Nystatin (Nystatin Powder) 1 applic BID TOP Last administered on 05/18/17 20: 21; Admin Dose 1 APPLIC; Start 05/16/17 at 13:30 Warfarin Sodium (Coumadin) 5 mg DAILY@17 GTB Last administered on 05/18/17 17 :01; Admin Dose 5 MG; Start 05/17/17 at 17:00 SHELBY SHUKLA MD May 19, 2017 06:09
[2017-05-19 07:14] LABS: PROTIME 22.9 Sec (12.2-14.2); PT RATIO 1.8
[2017-05-19 07:26] LABS: CALCIUM 9.3 mg/dl (8.4-10.2); CREATININE 0.83 mg/dl (0.44-1.00)
[2017-05-19] MEDS: LANSOPRAZOLE 30 MG CAP GTB SCH (08:34)
[2017-05-19] MEDS: DIGOXIN 0.125 MG TAB NGT SCH (08:34)
[2017-05-19] MEDS: FUROSEMIDE 20 MG TAB GTB SCH (08:34)
[2017-05-19] MEDS: ATENOLOL 50 MG TAB PO SCH (08:35)
[2017-05-19] MEDS: NYSTATIN 30 GM POWDER BTL TOP SCH (08:35)
[2017-05-19] MEDS: ENOXAPARIN 60 MG/0.6 ML SYG SC SCH (08:39)
--- NOTE | 2017-05-19 13:25 | CONS ---
Date/Time of Note Date/Time of Note DATE: 05/19/17 TIME: 13:22 Assessment/Plan Assessment/Plan Chief Complaint/Hosp Course IMPRESSION: 1. Atrial fibrillation-mainly rate controlled 2. History of cardiomyopathy with decreased left ventricular ejection fraction , last study approximately 45% to 50% by echo 01/2017. 3. Congestive heart failure by chest x-ray, systolic and diastolic, acute on chronic. 4. Hypernatremia-improved 5. History of mitral stenosis. 6. History of thalamic infarctions, prior cerebrovascular accident. 7. Urinary tract infection. 8. Dysphagia, status post gastrostomy tube. Recc: -Tele -serial ecg's -Continue atenolol as tolerated only -Continue digoxin -Continue coumadin which is now therapeutic -Continue PO lasix and follow volume status closely -Continue abx's and f/u cx data Problems: Consultation Date/Type/Reason Admit Date/Time May 07, 2017 at 02:40 Initial Consult Date 05/08/17 Type of Consultation: cardiology Reason for Consultation AF/cardiomyopathy Referring Provider: ROXANA TORO MD Exam/Review of Systems Vital Signs Vitals Vital Signs Date Time Temp Pulse Resp B/P Pulse Ox O2 Delivery O2 Flow Rate FiO2 05/19/17 13:04 84 20 96 21 05/19/17 12:05 97.7 128/55 05/18/17 15:56 Room Air 05/17/17 02:55 2.0 Intake and Output 05/18/17 05/18/17 05/19/17 15:00 23:00 07:00 Intake Total 1500 ml Balance 1500 ml Exam Review of Systems: CONSTITUTIONAL: No fevers, chills. PULMONARY: No sob CARDIOVASCULAR: No chest pain/palpitations GASTROINTESTINAL: No nausea/vomiting. GENITOURINARY: No hematuria/dysuria. MUSCULOSKELETAL: No myagias/arthalgias. PSYCHIATRIC: The patient denies depression. NEUROLOGIC: lethargic Psych: no complaints Head: normocephalic ENMT: mucosa pink and moist Neck: jvd (9 cm water), supple Respiratory: diminished breath sounds (at bases/B) Cardiovascular: regular rate and rhythm Gastrointestinal: non-tender, soft Musculoskeletal: muscle tone (normal) Extremities: pitting pedal edema (trace/B) Neurological: lethargic Results Result Diagram: 05/18/17 0705 05/19/17 0627 Results 24 hrs Laboratory Tests Test 05/19/17 06:27 Prothrombin Time 22.9 H Prothrombin Time Ratio 1.8 INR International Normalized Ratio 2.00 Sodium Level 141 Potassium Level 4.0 Chloride Level 102 Carbon Dioxide Level 27 Anion Gap 16 Blood Urea Nitrogen 29 H Creatinine 0.83 Glucose Level 131 Calcium Level 9.3 Medications Medications Current Medications Morphine Sulfate (morphine) 2 mg Q4H PRN IV PAIN Last administered on 05:05; Admin Dose 2 MG; Start 05/07/17 at 05:30 Ondansetron HCl (Zofran Inj) 4 mg Q6H PRN IV NAUSEA AND/OR VOMITING; Start 05/07/17 at 05:30 Furosemide (Lasix) 20 mg DAILY GTB Last administered on 05/18/17 09:33; Admin Dose 20 MG; Start 05/08/17 at 09:00 Lansoprazole 30 mg 30 mg DAILY GTB Last administered on 05/19/17 08:34; Admin Dose 30 MG; Start 05/08/17 at 09:00 Dextrose/Sodium Chloride (D5-1/2ns) 1,000 ml @ 80 mls/hr [id number] IV Last administered on 05/19/17 03:06; Admin Dose 80 MLS/HR; Start 05/08/17 at 16:30 Guaifenesin (Robitussin Liquid Cup) 15 mg QID PRN GTB COUGH Last administered on 05/18/17 22:57; Admin Dose 15 MG; Start 05/09/17 at 09:00 Acetaminophen (Tylenol Liquid) 650 mg Q4H PRN GTB PAIN AND OR ELEVATED TEMP Last administered on 05/18/17 22:57; Admin Dose 650 MG; Start 05/10/17 at 13: 00 Digoxin (Digoxin) 0.125 mg DAILY NGT Last administered on 05/19/17 08:34; Admin Dose 0.125 MG; Start 05/11/17 at 09:00 Metoprolol Tartrate (Lopressor) 5 mg Q4H PRN IV HR>110 Hold SBP<100; Start 05/10/17 at 13:30 IV Flush (NS 10 ml) 10 ml PRN PRN IV IV PROTOCOL; Start 05/10/17 at 16:30 Atenolol (Tenormin) 25 mg BID PO Last administered on 05/18/17 20:21; Admin Dose 25 MG; Start 05/12/17 at 21:00 Nystatin (Nystatin Powder) 1 applic BID TOP Last administered on 05/19/17 08: 35; Admin Dose 1 APPLIC; Start 05/16/17 at 13:30 Warfarin Sodium (Coumadin) 5 mg DAILY@17 GTB Last administered on 05/18/17 17 :01; Admin Dose 5 MG; Start 05/17/17 at 17:00 MINOO REY May 19, 2017 13:25
--- NOTE | 2017-05-19 16:13 | PN ---
Date/Time of Note Date/Time of Note DATE: 05/19/17 TIME: 16:12 Assessment/Plan VTE Prophylaxis VTE Prophylaxis Intervention: SCD's Lines/Catheters IV [facility]from [facility] Urinary Cath still in place: No Assessment/Plan Chief Complaint/Hosp Course D/C planning Assessment/Plan - Recurrent sepsis secondary pneumonia and UTI. Status post treatment with antibiotics. Dr. Hiro villeda is following in ID consultation. - Atrial fibrillation with rapid ventricular response. Continue telemetry monitoring Dr. Armenta is following and cardiology consultation. Continue Coumadin, Lovenox, digoxin. - Bilateral thalamic infarctions. - Dysphagia with G-tube. - Mitral stenosis - CHF, continue Lasix, monitor electrolytes - Hx Thrombosis of the bilateral cephalic veins. - History of VRE in urine Further recommendations based on clinical course. Plan of care discussed with Dr. Valdovinos. Problems: Exam/Review of Systems Vital Signs Vitals Vital Signs Date Time Temp Pulse Resp B/P Pulse Ox O2 Delivery O2 Flow Rate FiO2 05/19/17 15:37 98.2 77 17 106/58 99 05/19/17 13:04 21 05/18/17 15:56 Room Air 05/17/17 02:55 2.0 Intake and Output 05/18/17 05/18/17 05/19/17 15:00 23:00 07:00 Intake Total 1500 ml Balance 1500 ml Exam Constitutional: alert, oriented Respiratory: diminished breath sounds Cardiovascular: irregular rhythm Gastrointestinal: non-tender, other (G-tube), soft Neurological: nl mental status, other (Bilateral extremities weakness secondary to bilateral thalamic stroke) Results Result Diagram: 05/18/17 0705 05/19/17 0627 Results 24 hrs Laboratory Tests Test 05/19/17 06:27 Prothrombin Time 22.9 H Prothrombin Time Ratio 1.8 INR International Normalized Ratio 2.00 Sodium Level 141 Potassium Level 4.0 Chloride Level 102 Carbon Dioxide Level 27 Anion Gap 16 Blood Urea Nitrogen 29 H Creatinine 0.83 Glucose Level 131 Calcium Level 9.3 Medications Medications Current Medications Morphine Sulfate (morphine) 2 mg Q4H PRN IV PAIN Last administered on t 05:05; Admin Dose 2 MG; Start 05/07/17 at 05:30 Ondansetron HCl (Zofran Inj) 4 mg Q6H PRN IV NAUSEA AND/OR VOMITING; Start 05/07/17 at 05:30 Furosemide (Lasix) 20 mg DAILY GTB Last administered on 05/18/17 09:33; Admin Dose 20 MG; Start 05/08/17 at 09:00 Lansoprazole 30 mg 30 mg DAILY GTB Last administered on 05/19/17 08:34; Admin Dose 30 MG; Start 05/08/17 at 09:00 Dextrose/Sodium Chloride (D5-1/2ns) 1,000 ml @ 80 mls/hr [id number] IV Last administered on 05/19/17 15:20; Admin Dose 80 MLS/HR; Start 05/08/17 at 16:30 Guaifenesin (Robitussin Liquid Cup) 15 mg QID PRN GTB COUGH Last administered on 05/18/17 22:57; Admin Dose 15 MG; Start 05/09/17 at 09:00 Acetaminophen (Tylenol Liquid) 650 mg Q4H PRN GTB PAIN AND OR ELEVATED TEMP Last administered on 05/18/17 22:57; Admin Dose 650 MG; Start 05/10/17 at 13: 00 Digoxin (Digoxin) 0.125 mg DAILY NGT Last administered on 05/19/17 08:34; Admin Dose 0.125 MG; Start 05/11/17 at 09:00 Metoprolol Tartrate (Lopressor) 5 mg Q4H PRN IV HR>110 Hold SBP<100; Start 05/10/17 at 13:30 IV Flush (NS 10 ml) 10 ml PRN PRN IV IV PROTOCOL; Start 05/10/17 at 16:30 Atenolol (Tenormin) 25 mg BID PO Last administered on 05/18/17 20:21; Admin Dose 25 MG; Start 05/12/17 at 21:00 Nystatin (Nystatin Powder) 1 applic BID TOP Last administered on 05/19/17 08: 35; Admin Dose 1 APPLIC; Start 05/16/17 at 13:30 Warfarin Sodium (Coumadin) 5 mg DAILY@17 GTB Last administered on 05/18/17 17 :01; Admin Dose 5 MG; Start 05/17/17 at 17:00 LAWRENCE PICKERING May 19, 2017 16:13
[2017-05-19] MEDS: WARFARIN 5 MG TAB GTB SCH (16:49)
== END 2017-05-19 17:51 | DRG 871 ==
LOC: E/R 00:43 → MS1 02:40 → MS4 10:28 → TEL 05-09 01:28
PROVIDERS: ADMIT Internal Medicine; ATTEND Internal Medicine
PROC: 02HV33Z Insertion of Infusion Device into Superior Vena Cava, Percutaneous Approach (ICD-10-PCS; principal; 2017-05-10)
DX: A41.9 Sepsis, unspecified organism (principal); J18.9 Pneumonia, unspecified organism; I50.43 Acute on chronic combined systolic (congestive) and diastolic (congestive) heart failure; E87.0 Hyperosmolality and hypernatremia; I48.92 Unspecified atrial flutter; R13.10 Dysphagia, unspecified; I11.0 Hypertensive heart disease with heart failure; N39.0 Urinary tract infection, site not specified; I48.91 Unspecified atrial fibrillation; D64.9 Anemia, unspecified; I05.0 Rheumatic mitral stenosis; B96.1 Klebsiella pneumoniae [K. pneumoniae] as the cause of diseases classified elsewhere; R53.1 Weakness; I69.398 Other sequelae of cerebral infarction; Z86.718 Personal history of other venous thrombosis and embolism; Z79.01 Long term (current) use of anticoagulants; Z93.1 Gastrostomy status
CPT/HCPCS: 36415; 36569; 71010; 76937; 80048; 80053; 80202; 81001; 81003; 82565; 82962; 83605; 83735; 84145; 84443; 84484; 84520; 85025; 85610; 85730; 87040; 87081; 87086; 87400; 93005; 94640; 96374; 96375; A4310; C1769; J0692; J2185; J2270; J3370; J3480; J7030; J7042; P9612

== ENCOUNTER 2017-07-18 15:23 | Emergency (ER) | END 2017-07-18 19:41 | disposition home or self-care (01) ==